=== PATIENT | female | born 1980 | race Two or more races ===

== ENCOUNTER 2020-05-09 09:46 | Emergency (ER) | payer OTHER, SELFPAY ==
[2020-05-09 10:30] VITALS: BP 132/84; PULSE 75; RESP 18; TEMP 36.3; O2SAT 99; BMI 31.1
--- NOTE | 2020-05-09 11:08 | CT_ITS ---
EXAMINATION: CT HEAD W/O IV CONTRAST CT CERVICAL SPINE W/O IV CONTRAST CLINICAL INFORMATION: Trauma. COMPARISON: 04/02/2016 TECHNIQUE: Head - Contiguous axial imaging of the head was performed from the skull base to the vertex without the administration of intravenous contrast, and axial images are reconstructed at 0.625 mm, 2.5 mm and 5 mm slice thickness. Cervical spine - A volumetric, helical CT acquisition of the cervical spine was obtained without contrast; in addition to the standard set of axial images, multiplanar reformatted images were provided in the coronal and sagittal imaging planes. This CT examination was performed using dose optimization techniques as appropriate, variously including the following: *Automated exposure control *Adjustment of mA and/or kV according to patient size (this includes techniques or standardized protocols for targeted exams where dose is matched to indication/reason for exam; i.e. extremities or head) *Use of iterative reconstruction technique DLP: 1051 mGy-cm (total) FINDINGS: HEAD: No evidence of intracranial hemorrhage, major vascular territory infarction, focal mass effect or midline shift. Ruiz to white matter differentiation is preserved. The ventricles have normal size and configuration. No extra-axial fluid collections. The calvarium is intact and the visualized paranasal sinuses, mastoid air cells and middle ear cavities are clear. The temporomandibular joints are unremarkable. The visualized orbits and globes are intact. CERVICAL SPINE: No acute abnormalities. The craniocervical junction is normal. The occipital condyles, dens and atlantodental articulation are intact. The vertebral body heights and alignment are maintained. No fractures in the anterior or posterior elements. No prevertebral soft tissue swelling. The disc spaces are preserved. The facet joints and uncovertebral joints are unremarkable. No evidence of stenosis of the central spinal canal or neural foramina. No spinal hematoma or focal fluid collection in the visualized neck. The examined lung apices are clear. Thyroid gland is normal. IMPRESSION: * No acute intracranial pathology. * No fracture or malalignment in the cervical spine.
--- NOTE | 2020-05-09 11:08 | XR_ITS ---
EXAMINATION: XR CHEST CLINICAL INFORMATION: Trauma COMPARISON: 11/29/2019 TECHNIQUE: 2 views of the chest were obtained. FINDINGS: Lungs are well-inflated and clear. Trachea is midline in position. No interstitial disease, consolidation or mass. No pleural effusion or pneumothorax. Cardiac silhouette and pulmonary vessels are normal in size. The mediastinum and filipe have normal contour. The visualized bones, and upper abdomen, are unremarkable. IMPRESSION: No acute cardiopulmonary abnormality.
--- NOTE | 2020-05-09 11:09 | XR_ITS ---
EXAMINATION: XR PELVIS CLINICAL INFORMATION: Trauma COMPARISON: None TECHNIQUE: CT pelvis, 07/24/2019 FINDINGS: The osseous pelvic ring is intact and bones have normal alignment. The joint spaces well-preserved at the hips, pubic symphysis and sacroiliac joints. No fracture. No focal soft tissue swelling. A few phleboliths are noted within the pelvis. IMPRESSION: Normal pelvis.
[2020-05-09 11:10] VITALS: BP 140/69; PULSE 66; RESP 20; TEMP 37; O2SAT 99
--- NOTE | 2020-05-09 11:10 | XR_ITS ---
EXAMINATION: XR LUMBOSACRAL SPINE XR HAND, LEFT CLINICAL INFORMATION: Trauma. COMPARISON: None TECHNIQUE: 2 views, 3 images of the lumbosacral spine 3 views of the left hand. FINDINGS: LUMBOSACRAL SPINE: The heights of the lumbar vertebrae are well-maintained. Intervertebral disc heights are well-maintained. Mild rotatory scoliosis is present at the upper lumbar spine. The intervertebral disc heights are well-maintained. The posterior appendages are intact. The paraspinal soft tissues are unremarkable. LEFT HAND: The bony alignment is intact. The cortices are intact. Articular margins, joint space appear unremarkable. The soft tissues are unremarkable. IMPRESSION: 1. No radiographic evidence of any acute compression fracture at the lumbosacral spine. 2. No radiographic evidence of any displaced fracture and/or subluxation or dislocation at the left hand.
--- NOTE | 2020-05-09 11:12 | ED_ITS ---
HPI - Back Pain/Injury General Chief Complaint: Back Pain/Injury Stated Complaint: fell Time Seen by Provider: 05/09/20 10:53 Source: patient Mode of arrival: ambulatory Limitations: no limitations History of Present Illness HPI Narrative: this is a 39 years old female who presented to the ED with a chief complain of a fall. She states that she fell yesterday down the stairs. She is complaining of a headache, neck pain chest wall pain and lower back pain. She has a history of fibromyalgia MD elicited complaint: back pain and fall Pertinent past history: recent trauma Onset (ago): day(s) (1) Timing: constant Severity: moderate Pain scale (0-10): 5 Quality: dull Location: lumbar spine Radiation: none Exacerbating factors: none Related Data Previous Rx's Medication Instructions Recorded oxycodone 5 mg PO Q8H PRN #12 cap 05/09/20 Allergies Allergy/AdvReac Type Severity Reaction Status Date / Time tomato [TOMATO] Allergy Mild HIVES Unverified 04/15/20 17:13 DIFFICULTY BREATHING hydrocodone [HYDROCODONE] Allergy Unknown RASH, Unverified 04/15/20 17:13 AIRWAY CLOSES ibuprofen [From MOTRIN] Allergy Unknown STOMACH Unverified 04/15/20 17:13 UPSET, vomiting Motrin Allergy Unknown stomach Unverified 12/25/19 00:00 upset tramadol [TRAMADOL] Allergy Unknown HIVES, Unverified 04/15/20 17:13 rash, vomiting trazodone [TRAZODONE] Allergy Unknown UNKNOWN, Unverified 04/15/20 17:13 stomach upset black pepper [BLACK PEPPER] AdvReac Severe DIFFICULTY Unverified 04/15/20 17:13 BREATHING, hives black pepper Allergy Unknown stomach Uncoded 12/25/19 00:00 upset hydrocodone Allergy Unknown rash Uncoded 12/25/19 00:00 Hydrocodone-Acetaminophen Allergy Unknown Uncoded 10/20/19 00:00 tomatoes Allergy Unknown stomach Uncoded 12/25/19 00:00 upset Review of Systems Review of Systems: Yes all other systems are reviewed and are negative PMFSH Past Medical History Attestation statement: The following information was validated with the patient. Medical History Anxiety Diabetes Surgical History H/O: hysterectomy Social History Social History Smoking Status: Former smoker Use of substances other than those prescribed or required for medical reasons: No Advance Directives: No Advance Directives Information Provided: No Physical Exam Vital Signs: Vital Signs: Vital Signs Temp Pulse Resp BP Pulse Ox 05/09/20 12:51 74 18 127/74 99 05/09/20 11:10 98.6 F 66 20 140/69 H 99 05/09/20 10:30 97.3 F 75 18 132/84 99 Body Mass Index 31.1 Const: General: cooperative, healthy appearing and comfortable Orientatio n/consciousness: oriented to person, oriented to place and oriented to time HENMT: Head: Yes normal to inspection Ears: external ears normal General nose exam: Normal external nose present Face and sinus: Yes normal facial exam Mouth: Normal oral and palatal mucosa present, lip normal and tongue normal Teeth and gingiva: dentition normal Throat: Yes posterior oropharynx normal Eyes: General: appearance normal, both eyes and all related structures Neck: Neck: Yes normal visual inspection, Yes no lymphadenopathy and Yes no meningeal signs Chest: Chest palpation & inspection: normal inspection of the chest Resp: Effort & Inspection: normal respiratory effort and able to speak in complete sentences Cardio: Jugular venous distension: no JVD Rate: regular rate GI: Inspection: Yes normal to inspection Percussion: Yes normal to percussion Auscultation: normal bowel sounds Skin: General skin exam: no rashes or lesions noted Neuro: General: oriented to person, oriented to place, oriented to time and no meningeal signs Extrem: Other: tenderness in the left tender dorsal aspect, tenderness in the LS spine and cervical spine. Course Reevaluation(s) Reevaluation #1: she is feeling better, imaging test negative head CT, C-spine CT, chest x-ray, LS spine, pelvis x-ray and left hand x-ray all negative. At this point we will discharge patient home with a follow-up with the PCP Time: 13:21 MDM - Back Pain/Injury Imaging Data CT scan - head: Attestation: I personally reviewed and interpreted this imaging study as follows: My impression: normal Radiologist's impression: normal ct spine cervical spine: Attestation: I personally reviewed and interpreted this imaging study as follows: My impression: normal Radiologist's impression: normal Discharge Plan Discharge Clinical Impression: Back muscle spasm Fall Qualifiers: Encounter type: initial encounter Qualified Code(s): W19.XXXA - Unspecified fall, initial encounter Neck contusion Qualifiers: Encounter type: initial encounter Qualified Code(s): S10.93XA - Contusion of unspecified part of neck, initial encounter Patient Disposition: Home, Self-Care Instructions: Contusion in Adults (ED), Fall Prevention (ED) Additional Instructions: please follow-up with her primary care physician, call in a.m. return if he worse Prescriptions: New oxycodone 5 mg capsule 5 mg PO Q8H PRN (Reason: pain) Qty: 12 RF: 0 Referrals: Deirdre Cantrell MD [Primary Care Provider] - 2 days Interventions: ED Discharge Assessment Last Done: 05/09/20 13:40 Discharge Date/Time: 05/09/20 13:41
[2020-05-09] MEDS: oxyCODONE HCl Immed Release 5 MG TABLET 10 MG PO (11:25)
--- NOTE | 2020-05-09 12:00 | PC.NURSE ---
pt resting in the stretcher on her left side, reports that pain slightly improved, at 7/10. nost of the pain is in the lower left back area and hip, noticeable bruising to the out left hip
[2020-05-09 12:51] VITALS: BP 127/74; PULSE 74; RESP 18; O2SAT 99
== END 2020-05-09 13:41 | disposition home or self-care (01) ==
PROVIDERS: Emergency Provider Emergency Medicine; PCP Internal Medicine
DX: S10.93XA Contusion of unspecified part of neck, initial encounter (principal); W10.8XXA Fall (on) (from) other stairs and steps, initial encounter; M62.830 Muscle spasm of back; E11.9 Type 2 diabetes mellitus without complications; Y93.9 Activity, unspecified; Y92.9 Unspecified place or not applicable; Y99.9 Unspecified external cause status
CPT/HCPCS: 70450; 71046; 72100; 72125; 72170; 73130; 99284

== ENCOUNTER 2020-05-27 10:24 | Outpatient (REF) | payer OTHER, SELFPAY ==
--- NOTE | 2020-05-27 10:30 | MR_ITS ---
EXAMINATION: MRI BRAIN WITHOUT CONTRAST CLINICAL INFORMATION: Seizure. COMPARISON: CT scan of the head 05/09/2020. TECHNIQUE: Multiplanar MR imaging of the brain was performed without contrast. FINDINGS: Dedicated coronal oblique imaging through the temporal lobes reveals symmetric size, signal intensity and morphological appearance of the hippocampal formations with no evidence of mesial temporal sclerosis. There is a small ill-defined focus of T2 FLAIR signal hyperintensity involving the medial aspect of the right parietal lobe near the vertex best illustrated on coronal image 20 of 21 series 9. No acute territorial infarct. No pathological magnetic susceptibility artifact. Intracranial vascular flow voids are maintained. There is no intracranial mass effect or midline shift. No abnormal extra-axial collection. Lateral and third ventricles are normal. No hydrocephalus. Midline structures including the cervicomedullary junction are normal. No acute bone marrow signal changes. There is no mastoid or middle ear effusion. Mild mucosal thickening within ethmoid air cells. Globes and orbits are symmetric. MR/MR head/brain wo con IMPRESSION: There is abnormal signal intensity involving the medial aspect of the right frontal lobe near the vertex. This finding could represent a manifestation of cortical dysplasia or perhaps an old vascular insult. The possibility of a low-grade neoplasm cannot be definitively excluded on basis is examination but is felt to be unlikely given the lack of expansile disease. No medial temporal sclerosis to suggest dual pathology.
== END 2020-05-27 10:25 | disposition home or self-care (01) ==
LOC: HO.MRI 10:24
PROVIDERS: PCP Internal Medicine; Visit Provider Psychiatry & Neurology Neurology
DX: R56.9 Unspecified convulsions (principal)
CPT/HCPCS: 70551

== ENCOUNTER 2020-05-27 13:22 | Outpatient (REF) | payer OTHER, SELFPAY ==
--- NOTE | 2020-05-27 13:39 | EEG_ITS ---
The waking background activity consists of a well-defined symmetrical posterior alpha of 9 hertz, intermixed anteriorly with low-voltage fast frequencies. Drowsiness produces attenuation of the background activity and symmetrical theta. Stages I through IV of sleep are noted with no abnormalities. Arousal is unremarkable. Artifacts are seen over the right hemisphere because of the malfunctioning electrode in the right temporal region. Multiple symptoms are reported in the diary, but there were no concomitant EEG changes. IMPRESSION: This 24-hour ambulatory EEG is within normal limits. The patient's symptoms did not correlate with any EEG abnormality. MD NATALY Palacios/WINIFRED / [id number]
== END 2020-05-27 13:23 | disposition home or self-care (01) ==
LOC: HO.NEURO 13:22
PROVIDERS: PCP Internal Medicine; Visit Provider Psychiatry & Neurology Neurology
DX: R56.9 Unspecified convulsions (principal)
CPT/HCPCS: 95708

== ENCOUNTER → 2020-06-03 13:25 | Outpatient (REF) | payer OTHER, SELFPAY | LOC: HO.CARD 13:25 | PROVIDERS: PCP Internal Medicine; Visit Provider Psychiatry & Neurology Neurology | DX: Z13.89 Encounter for screening for other disorder (principal) ==

== ENCOUNTER → 2020-06-29 12:50 | Outpatient (REF) | payer OTHER, SELFPAY ==
--- NOTE | 2020-06-29 13:00 | ECG_ITS ---
Hook-up date: 2020-06-29 13:28:00 Duration: 47:59:00 Test Indications: SYNCOPE Medications: [id number] QRS complexes 33 Ventricular ectopics which represent <1 % of total QRS comp. 3 Supraventricular ectopics which represent <1 % of total QRS comp. * Paced QRS complexs which represent % of total QRS comp. VENTRICULAR ECTOPY 33 Isolated 0 Bigeminal Cycles 0 Couplets 0 Runs 0 Beats in Runs * Beats LONGEST at * BPM at :: -- * Beats FASTEST at * BPM at :: -- SUPRAVENTRICULAR ECTOPY 3 Isolated 0 Couplets 0 Runs 0 Beats in Runs * Beats LONGEST at * BPM at :: -- * Beats FASTEST at * BPM at :: -- HEART RATES 64 MIN at 17:02:25 2020-06-29 102 AVG 177 MAX at 19:47:37 2020-06-29 LONGEST RR 0.9840 secs at 10:12:25 2020-06-30 S-T LEVELS Channel 1 - 128 mm at 13:28:00 2020-06-29 - 128 mm at 13:28:00 2020-06-29 Channel 2 - 128 mm at 13:28:00 2020-06-29 - 128 mm at 13:28:00 2020-06-29 Channel 3 - 128 mm at 03:24:71 -- - 128 mm at 03:24:71 Basic rhythm Normal sinus rhythm No long pause or profound bradycardia Rare Premature atrial complexes Frequent Sinus tachycardia , 48 % of time HR > 100 bpm Patient did not report any symptoms in the diary Referred By: Gilson Heaton Overread By: DINA ESQUIVEL MD
== END ==
LOC: HO.CARD 12:50
PROVIDERS: Visit Provider Psychiatry & Neurology Neurology
DX: R55 Syncope and collapse (principal)
CPT/HCPCS: 93225; 93226

== ENCOUNTER 2020-09-06 10:27 | Emergency (ER) | payer OTHER, SELFPAY ==
[2020-09-06 12:06] VITALS: BP 131/74; PULSE 84; RESP 18; TEMP 36.8; O2SAT 97; BMI 30.2
[2020-09-06 12:39] LABS: MANUAL DIFF FLAG NO
[2020-09-06 12:43] LABS: Basophils Percent Auto 0.6 % (0-2); Eosinophils Absolute Auto 0.1 X10*3/uL (0.0-0.4); Eosinophils Percent Auto 1.4 % (0-4); Hematocrit 41.5 % (37-47); Hemoglobin 13.6 g/dl (12.0-16.0); Imm Gran Abs Auto 0.04 X10*3/uL (0.00-0.03); Imm Gran Pct Auto 0.6 % (0.0-0.4); Lymphocytes Absolute Auto 1.5 X10*3/uL (1.2-4.9); Mean Corpuscular HGB Conc 32.8 g/dl (31.0-35.0); Mean Corpuscular Hemoglobin 29.3 pg (27.0-33.0); Mean Corpuscular Volume 89.4 fL (80-98); Mean Platelet Volume 10.5 fL (9.4-12.3); Monocytes Absolute Auto 0.7 X10*3/uL (0.1-1.2); Monocytes Percent Auto 10.5 % (2-11); Neutrophils Percent Auto 63.9 % (45-73); Platelet Count 351 X10*3/uL (160-400); Red Blood Count 4.64 X10*6/uL (4.20-5.50); Red Cell Distribution Width 12.7 % (11.0-16.0); White Blood Count 6.3 X10*3/uL (4.8-10.8)
[2020-09-06 13:16] LABS: Glucose Urine UA NEG (NEG); Leukocyte Esterase Urine NEG (NEG); Nitrite Urine NEG (NEG); Specific Gravity - Urine >= 1.030 (1.005-1.025); Urine Blood TRACE (NEG); Urine Ketones NEG (NEG); Urine Protein 1+ MG/DL (NEG-TRACE)
[2020-09-06 13:21] LABS: UPreg QC Valid YES; Urine Pregnancy NEGATIVE (NEGATIVE)
[2020-09-06 13:23] LABS: Appearance Urine CLEAR; Color Urine YELLOW
[2020-09-06 13:25] LABS: Alanine Aminotransferase 11 U/L (0-31); Albumin Level 4.5 g/dL (3.5-5.0); Alkaline Phosphatase 60 U/L (39-117); Anion Gap 12 (12-20); Aspartate Amino Transferase 11 U/L (5-31); Bilirubin Total 0.3 mg/dL (0.0-1.0); Blood Urea Nitrogen 12 mg/dL (9-16); Calcium 9.4 mg/dL (8.4-10.2); Carbon Dioxide 27 mmol/L (22-29); Chloride 105 mmol/L (96-108); Creatinine Clr Calc Pharmacy 105.1; Estimated Glomerular Filt Rate > 60; Glucose Random 97 mg/dL (60-115); Lipase 11 U/L (8-78); Potassium 4.2 mmol/L (3.3-5.1); Sodium 140 mmol/L (135-145); Total Protein 7.3 g/dL (6.5-8.0)
[2020-09-06 13:30] LABS: Bacteria Urine TRACE /LPF; Mucus Urine TRACE /LPF; RBC Urine 0-2 /HPF (0); Squamous Epithelial Cell Urine 2+ /LPF; WBC Urine 0-2 /HPF (0-4)
== END 2020-09-06 19:27 | disposition left against medical advice (07) ==
PROVIDERS: Emergency Provider Emergency Medicine; PCP Internal Medicine
DX: R10.13 Epigastric pain (principal); S49.92XA Unspecified injury of left shoulder and upper arm, initial encounter; W18.39XA Other fall on same level, initial encounter; I10 Essential (primary) hypertension; E11.9 Type 2 diabetes mellitus without complications; K21.9 Gastro-esophageal reflux disease without esophagitis; F10.10 Alcohol abuse, uncomplicated; Y93.9 Activity, unspecified; Y92.9 Unspecified place or not applicable; Y99.9 Unspecified external cause status
CPT/HCPCS: 36415; 80053; 81001; 81003; 81025; 83690; 85025; 99282; 99283

== ENCOUNTER 2020-09-27 11:15 | Emergency (ER) | payer OTHER, SELFPAY ==
--- NOTE | ~2020-09-27 | CT_ITS ---
EXAMINATION: CT ABDOMEN AND PELVIS WITH CONTRAST CLINICAL INFORMATION: Periumbilical abdominal pain COMPARISON: 07/24/2019 TECHNIQUE: Multidetector volumetric images were obtained from the superior aspect of the liver through the pubic symphysis following administration 85 mL of Omnipaque 350 intravenous contrast. Sagittal and coronal reformatted images were obtained on the technologist's workstation. Oral contrast: No This CT examination was performed using dose optimization techniques as appropriate, variously including the following: *Automated exposure control *Adjustment of mA and/or kV according to patient size (this includes techniques or standardized protocols for targeted exams where dose is matched to indication/reason for exam; i.e. extremities or head) *Use of iterative reconstruction technique DLP: 222 mGy-cm FINDINGS: LUNG BASES: The visualized lung bases are unremarkable. LIVER, GALLBLADDER, AND BILIARY TREE: Unchanged tiny low-density lesions in the liver, too small to definitively characterize but most likely simple cysts. No new or suspicious focal lesion seen. No biliary ductal dilatation. The portal and hepatic veins enhance normally. The gallbladder is unremarkable with no evidence of radiopaque gallstones, gallbladder wall thickening, or obvious pericholecystic inflammatory changes. PANCREAS: Normal. SPLEEN: Normal. ADRENAL GLANDS: Unremarkable. KIDNEYS AND URETERS: The kidneys are normal in size, shape, and attenuation. No hydronephrosis, hydroureter, or calculi seen. No perinephric stranding. BLADDER: Unremarkable. GASTROINTESTINAL TRACT: Stomach and small bowel are nondilated. Normal appendix. Scattered colonic diverticulosis but no evidence of colitis or diverticulitis. ABDOMINAL WALL: No acute CT findings. LYMPH NODES: Normal. VASCULAR: Unremarkable. PELVIC VISCERA: Normal CT appearance of the ovaries for age. Uterus not seen, likely surgically absent. OSSEOUS STRUCTURES: Multilevel degenerative changes of the thoracolumbar spine. There are broad-based disc bulges at L5-S1 and T11-T12. CT/CT abdomen pelvis w con IMPRESSION: No acute CT findings. Normal appendix. No etiology for abdominal pain identified.
[2020-09-27 12:16] VITALS: BP 146/92; PULSE 75; RESP 18; TEMP 36.8; O2SAT 98; BMI 29.8
--- NOTE | 2020-09-27 14:37 | ED_ITS ---
HPI - Abdominal Pain General Chief Complaint: Abdominal Pain Stated Complaint: ABD PAIN Time Seen by Provider: 09/27/20 14:36 Source: patient Mode of arrival: ambulatory Limitations: language barrier (founder chairman and chief creative officer present for all interactions) History of Present Illness HPI narrative: This is a pleasant 39-year-old female primarily Mosotho-speaking, thus founder chairman and chief creative officer present for all interactions, with below noted past medical history including history of anxiety and depression, carpal tunnel syndrome, gastroesophageal reflux disease, hypercholesteremia, hypertension, prior history of renal calculi, diabetes, vitamin-D deficiency as well as surgical history of hysterectomy tubal ligation reports for the past 1 week she has episodes of intermittent nausea and vomiting with associated diarrhea there is some epigastric pain especially when she eats certain things and when she vo mits. She states her vomit is greenish and it will cause burning likes sensation in the chest. MD elicited complaint: abdominal pain Pertinent past history: gastritis Onset (ago): day(s) Pain Consistency: constant Location: epigastric and periumbilical Severity: moderate Quality: aching Radiation: epigastric Migration to: periumbilical Exacerbating factors: vomiting Relieving factors: vomiting Associated symptoms: nausea, vomiting and diarrhea Related Data Home Medications Medication Instructions Recorded Confirmed ergocalciferol (vitamin D2) 1,250 1,250 mcg PO QWEEK 08/15/20 08/27/20 mcg (50,000 unit) capsule atorvastatin 20 mg tablet 20 mg PO DAILY 08/27/20 08/27/20 clonazepam 2 mg tablet 2 mg PO BID 08/27/20 08/27/20 dicyclomine 20 mg tablet 20 mg PO BID 08/27/20 08/27/20 lactulose 10 gram/15 mL oral 10 g PO DAILY 08/27/20 08/27/20 solution linaclotide 290 mcg capsule 290 mcg PO DAILY 08/27/20 08/27/20 lisinopril 5 mg tablet 5 mg PO DAILY 08/27/20 08/27/20 omeprazole 20 mg capsule,delayed 20 mg PO DAILY 08/27/20 08/27/20 release ondansetron HCl 4 mg tablet 4 mg PO Q6H 08/27/20 08/27/20 quetiapine 300 mg tablet,extended 300 mg PO BEDTIME 08/27/20 08/27/20 release 24 hr sumatriptan succinate 50 mg tablet 50 mg PO Q2-4H PRN 08/27/20 08/27/20 zolpidem 10 mg tablet 10 mg PO BEDTIME PRN 08/27/20 08/27/20 Previous Rx's Medication Instructions Recorded sucralfate 1 gram tablet 1 g PO BID #60 tab 08/27/20 meloxicam 15 mg tablet 15 mg PO DAILY #30 tab 09/17/20 acetaminophen 325 mg tablet 650 mg PO Q6H PRN #30 tab 09/24/20 ondansetron HCl [Zofran] 4 mg PO Q8H PRN #10 tab 09/27/20 Allergies Allergy/AdvReac Type Severity Reaction Status Date / Time tomato [TOMATO] Allergy Mild HIVES Verified 09/27/20 12:16 DIFFICULTY BREATHING hydrocodone [HYDROCODONE] Allergy Unknown RASH, Verified 09/27/20 12:16 AIRWAY CLOSES ibuprofen [From MOTRIN] Allergy Unknown STOMACH Verified 09/27/20 12:16 UPSET, vomiting Motrin Allergy Unknown stomach Verified 09/27/20 12:16 upset tramadol [TRAMADOL] Allergy Unknown HIVES, Verified 09/27/20 12:16 rash, vomiting trazodone [TRAZODONE] Allergy Unknown UNKNOWN, Verified 09/27/20 12:16 stomach upset black pepper [BLACK PEPPER] AdvReac Severe DIFFICULTY Verified 09/27/20 12:16 BREATHING, hives Review of Systems Review of Systems Constitutional: No Weight loss, No Fever, No Chills, No Night Sweats, No Fatigue, No Malaise ENT/Mouth: No Hearing loss, No Ear Pain, No Nasal Congestion, No Sinus Pain, No Hoarseness, No sore throat, No Rhinorrhea, No Swallowing Difficulty Eyes: No Eye Pain, No Swelling, No Redness, No Foreign Body, No Discharge, No Vision Changes Cardiovascular: No Chest Pain, No SOB, No Dyspnea on Exertion, No Orthopnea, No Edema, No Palpitations Respiratory: No Cough, No Sputum, No Wheezing, No Smoke Exposure, No Dyspnea Gastrointestinal:As noted per HPI, No Hematochezia, No Melena Genitourinary: no irregular bleeding, No Dysuria, No Urinary Frequency, No Hematuria, No Urinary Incontinence, No Urgency, No Flank Pain, No Urinary Flow Changes, No Hesitancy Musculoskeletal: No joint pain, No Myalgias, No Joint Swelling Skin: No Skin Lesions, No rash Neuro: No Weakness, No Numbness, No Paresthesias, No Loss of Consciousness, No Dizziness, No Headache Psych: No Social Issues Heme/Lymph: No Bruising, No Bleeding,No Lymphadenopathy Endocrine: No Polyuria, No Polydipsia, No Temperature Intolerance Yes all other systems are reviewed and are negative Physical Exam Vital Signs: Vital Signs: Last Vital Signs Temp 71 F L 09/27/20 16:27 Pulse 71 09/27/20 16:27 Resp 16 09/27/20 16:27 BP 132/85 09/27/20 16:27 Pulse Ox 99 09/27/20 16:27 Body Mass Index 29.8 Reviewed Cardio: Rhythm: regular rhythm Heart sounds: S1 normal heart sound present and S2 normal heart sound present GI: Palpation (GI): Soft to palpation and Tenderness to palpation present (GI) in the epigastrum Course Course Course Narrative: States minimal improvement with GI cocktail still having some burning like discomfort. Given her overall reassuring labs and examination plan to send home on PPI and Zofran however she states she feels like she has an infection in her stomach and would like imaging. Advised her my suspicions are very low given the findings and the risk of a radiation associated complication later on in life for greater than my anticipated findings however states she would feel more comfortable. Reevaluation(s) Reevaluation #1: Has remained comfortable in no acute distress no nausea or vomiting here. CT of the abdomen pelvis with IV contrast unrevealing. She will follow-up with her business management specialist at [facility] [place]. MDM - Abdominal Pain MDM Narrative Medical decision making narrative: Will check labs and treat with IV fluids, antiemetics and GI cocktail. Differential Diagnosis Differential diagnosis: Likely abdominal pain, diverticulitis, gastroenteritis and gastritis; Unlikely aortic dissection, acute appendicitis, bowel perforation, calculus of kidney, constipation, endometriosis, mesenteric ischemia, ovarian cyst, pancreatitis, peptic ulcer disease, renal colic and small bowel obstruction Medical Records Attestation: I reviewed the patient's medical records. Lab Data Attestation: I reviewed the patient's lab results. Result diagrams: 09/27/20 15:13 09/27/20 15:13 Labs: Lab Results 09/27/20 09/27/20 09/27/20 Range/Units 15:13 15:13 15:43 WBC 8.0 (4.8-10.8) X10*3/uL RBC 4.67 (4.20-5.50) X10*6/uL Hgb 13.5 (12.0-16.0) g/dl Hct 41.5 (37-47) % MCV 88.9 (80-98) fL MCH 28.9 (27.0-33.0) pg MCHC 32.5 (31.0-35.0) g/dl RDW 12.6 (11.0-16.0) % Plt Count 317 (160-400) X10*3/uL MPV 10.3 (9.4-12.3) fL Immature Gran % (Auto) 0.5 H (0.0-0.4) % Neut % (Auto) 68.1 (45-73) % Lymph % (Auto) 22.2 (20-40) % Kleberg % (Auto) 7.8 (2-11) % Eos % (Auto) 0.9 (0-4) % Baso % (Auto) 0.5 (0-2) % Lymph # (Auto) 1.8 (1.2-4.9) X10*3/uL Kleberg # (Auto) 0.6 (0.1-1.2) X10*3/uL Eos # (Auto) 0.1 (0.0-0.4) X10*3/uL Baso # (Auto) 0.0 (0.0-0.2) X10*3/uL Abs Immat Gran (auto) 0.04 H (0.00-0.03) X10*3/uL Absolute Neuts (auto) 5.4 (2.0-8.3) X10*3/uL Absolute Nucleated RBC 0.000 (0.0-0.012) X10*3/uL Nucleated RBC % (auto) 0.0 (0.0-0.2) /100WBC Sodium 139 (135-145) mmol/L Potassium 3.6 (3.3-5.1) mmol/L Chloride 105 (96-108) mmol/L Carbon Dioxide 26 (22-29) mmol/L Anion Gap 12 (12-20) BUN 11 (9-16) mg/dL Creatinine 0.77 (0.5-1.4) mg/dL Estim Creat Clear Calc 92.3 Estimated GFR > 60 Random Glucose 100 (60-115) mg/dL Calcium 8.7 D (8.4-10.2) mg/dL Total Bilirubin 0.7 (0.0-1.0) mg/dL AST 12 (5-31) U/L ALT 11 (0-31) U/L Alkaline Phosphatase 62 (39-117) U/L Total Protein 6.8 (6.5-8.0) g/dL Albumin 4.3 (3.5-5.0) g/dL Urine Color YELLOW Urine Appearance CLEAR Urine pH 6.0 (5.0-8.0) Ur Specific Linn 1.025 (1.005-1.025) Urine Protein 1+ H (NEG-TRACE) MG/DL Urine Glucose (UA) NEG (NEG) MG/DL Urine Ketones NEG (NEG) MG/DL Urine Blood NEG (NEG) Urine Nitrite NEG (NEG) Ur Leukocyte Esterase NEG (NEG) Urine RBC 0 (0) /HPF Urine WBC 0 (0-4) /HPF Ur Squamous Epith Cells 3+ /LPF Urine Bacteria 1+ /LPF Urine Test (NEGATIVE) 09/27/20 Range/Units 15:43 WBC (4.8-10.8) X10*3/uL RBC (4.20-5.50) X10*6/uL Hgb (12.0-16.0) g/dl Hct (37-47) % MCV (80-98) fL MCH (27.0-33.0) pg MCHC (31.0-35.0) g/dl RDW (11.0-16.0) % Plt Count (160-400) X10*3/uL MPV (9.4-12.3) fL Immature Gran % (Auto) (0.0-0.4) % Neut % (Auto) (45-73) % Lymph % (Auto) (20-40) % Kleberg % (Auto) (2-11) % Eos % (Auto) (0-4) % Baso % (Auto) (0-2) % Lymph # (Auto) (1.2-4.9) X10*3/uL Kleberg # (Auto) (0.1-1.2) X10*3/uL Eos # (Auto) (0.0-0.4) X10*3/uL Baso # (Auto) (0.0-0.2) X10*3/uL Abs Immat Gran (auto) (0.00-0.03) X10*3/uL Absolute Neuts (auto) (2.0-8.3) X10*3/uL Absolute Nucleated RBC (0.0-0.012) X10*3/uL Nucleated RBC % (auto) (0.0-0.2) /100WBC Sodium (135-145) mmol/L Potassium (3.3-5.1) mmol/L Chloride (96-108) mmol/L Carbon Dioxide (22-29) mmol/L Anion Gap (12-20) BUN (9-16) mg/dL Creatinine (0.5-1.4) mg/dL Estim Creat Clear Calc Estimated GFR Random Glucose (60-115) mg/dL Calcium (8.4-10.2) mg/dL Total Bilirubin (0.0-1.0) mg/dL AST (5-31) U/L ALT (0-31) U/L Alkaline Phosphatase (39-117) U/L Total Protein (6.5-8.0) g/dL Albumin (3.5-5.0) g/dL Urine Color Urine Appearance Urine pH (5.0-8.0) Ur Specific Linn (1.005-1.025) Urine Protein (NEG-TRACE) MG/DL Urine Glucose (UA) (NEG) MG/DL Urine Ketones (NEG) MG/DL Urine Blood (NEG) Urine Nitrite (NEG) Ur Leukocyte Esterase (NEG) Urine RBC (0) /HPF Urine WBC (0-4) /HPF Ur Squamous Epith Cells /LPF Urine Bacteria /LPF Urine Test NEGATIVE (NEGATIVE) Discharge Plan Discharge Clinical Impression: Nausea & vomiting Patient Disposition: Home, Self-Care Instructions: Acute Nausea and Vomiting (ED) Additional Instructions: Your blood work was overall stable The CT scan of your abdomen pelvis did not show any evidence of acute infection or cause of your pain You likely have a mild viral infection Drink plenty fluids Take anti acid medication prescribed Take nausea medication prescribed Follow-up with your business management specialist as planned Return if any concerns worsening symptoms Thank you Prescriptions: New ondansetron HCl [Zofran] 4 mg tablet 4 mg PO Q8H PRN (Reason: nausea and vomiting) Qty: 10 RF: 0 No Action ergocalciferol (vitamin D2) 1,250 mcg (50,000 unit) capsule 1,250 mcg PO QWEEK RF: 0 meloxicam 15 mg tablet 15 mg PO DAILY Qty: 30 RF: 5 acetaminophen 325 mg tablet 650 mg PO Q6H PRN (Reason: pain) Qty: 30 RF: 0 zolpidem 10 mg tablet 10 mg PO BEDTIME PRNRF: 0 clonazepam 2 mg tablet 2 mg PO BID RF: 0 dicyclomine 20 mg tablet 20 mg PO BID RF: 0 lisinopril 5 mg tablet 5 mg PO DAILY RF: 0 atorvastatin 20 mg tablet 20 mg PO DAILY RF: 0 ondansetron HCl [Zofran] 4 mg tablet 4 mg PO Q6H RF: 0 Linzess 290 mcg capsule 290 mcg PO DAILY RF: 0 sumatriptan succinate [Imitrex] 50 mg tablet 50 mg PO Q2-4H PRNRF: 0 quetiapine [Seroquel XR] 300 mg tablet extended release 24 hr 300 mg PO BEDTIME RF: 0 lactulose 10 gram/15 mL solution 10 g PO DAILY RF: 0 omeprazole 20 mg capsule,delayed release(DR/EC) 20 mg PO DAILY RF: 0 sucralfate [Carafate] 1 gram tablet 1 g PO BID Qty: 60 RF: 2 Referrals: Po,Deirdre Raymundo MD [Primary Care Provider] - 1 week [facility] Past Medical History Medical History (Updated 09/27/20 @ 19:15 by Quintin Gonzales NP) Alcohol abuse Anxiety and depression Carpal tunnel syndrome Diverticulosis GERD (gastroesophageal reflux disease) Hypercholesterolemia Hypertension Insomnia Renal calculi Type 2 diabetes mellitus with hyperglycemia Vitamin D deficiency Surgical History H/O: hysterectomy History of tubal ligation Family History Family History (Updated 08/17/20 @ 10:03 by Eryn Jamison Carrie) Father Medical history unknown Mother Medical history unknown Paternal Aunt Uterine cancer Diabetes Hypertension Paternal Uncle Liver cancer Maternal Aunt Stroke Family/Other Chronic mental illness Social History Social History Alcohol intake: never Smoking Status: Never smoker Use of substances other than those prescribed or required for medical reasons: No Advance Directives: No Advance Directives Information Provided: No
[2020-09-27] MEDS: 0.9 % Sodium Chloride 1,000 ML 999 ML IV (15:15)
[2020-09-27] MEDS: ondansetron HCL 4 MG/2 ML VIAL IVPUSH (15:19)
[2020-09-27] MEDS: Magnesium Hydrox/Alum Hydrox 30 ML ORAL.SUSP PO (15:19)
[2020-09-27] MEDS: Lidocaine HCl Viscous 2 % 15 ML SOLUTION 10 ML MUCOUS MEM (15:19)
[2020-09-27 15:20] LABS: MANUAL DIFF FLAG NO
[2020-09-27 15:23] LABS: Basophils Percent Auto 0.5 % (0-2); Eosinophils Absolute Auto 0.1 X10*3/uL (0.0-0.4); Eosinophils Percent Auto 0.9 % (0-4); Hematocrit 41.5 % (37-47); Hemoglobin 13.5 g/dl (12.0-16.0); Imm Gran Abs Auto 0.04 X10*3/uL (0.00-0.03); Imm Gran Pct Auto 0.5 % (0.0-0.4); Lymphocytes Absolute Auto 1.8 X10*3/uL (1.2-4.9); Lymphocytes Percent Auto 22.2 % (20-40); Mean Corpuscular HGB Conc 32.5 g/dl (31.0-35.0); Mean Corpuscular Hemoglobin 28.9 pg (27.0-33.0); Mean Corpuscular Volume 88.9 fL (80-98); Mean Platelet Volume 10.3 fL (9.4-12.3); Monocytes Absolute Auto 0.6 X10*3/uL (0.1-1.2); Monocytes Percent Auto 7.8 % (2-11); Neutrophils Absolute Auto 5.4 X10*3/uL (2.0-8.3); Neutrophils Percent Auto 68.1 % (45-73); Platelet Count 317 X10*3/uL (160-400); Red Blood Count 4.67 X10*6/uL (4.20-5.50); Red Cell Distribution Width 12.6 % (11.0-16.0)
[2020-09-27 15:45] LABS: Alanine Aminotransferase 11 U/L (0-31); Albumin Level 4.3 g/dL (3.5-5.0); Alkaline Phosphatase 62 U/L (39-117); Anion Gap 12 (12-20); Aspartate Amino Transferase 12 U/L (5-31); Bilirubin Total 0.7 mg/dL (0.0-1.0); Blood Urea Nitrogen 11 mg/dL (9-16); Calcium 8.7 mg/dL (8.4-10.2); Carbon Dioxide 26 mmol/L (22-29); Chloride 105 mmol/L (96-108); Creatinine Clr Calc Pharmacy 92.3; Estimated Glomerular Filt Rate > 60; Glucose Random 100 mg/dL (60-115); Potassium 3.6 mmol/L (3.3-5.1); Sodium 139 mmol/L (135-145); Total Protein 6.8 g/dL (6.5-8.0)
[2020-09-27 15:50] VITALS: BP 142/92; PULSE 94; RESP 16; TEMP 36.5; O2SAT 96
[2020-09-27 16:01] LABS: Glucose Urine UA NEG (NEG); Leukocyte Esterase Urine NEG (NEG); Nitrite Urine NEG (NEG); Specific Gravity - Urine 1.025 (1.005-1.025); Urine Blood NEG (NEG); Urine Ketones NEG (NEG); Urine Protein 1+ MG/DL (NEG-TRACE)
[2020-09-27 16:10] LABS: Appearance Urine CLEAR; Color Urine YELLOW
[2020-09-27 16:13] LABS: UPreg QC Valid YES; Urine Pregnancy NEGATIVE (NEGATIVE)
[2020-09-27 16:21] LABS: Bacteria Urine 1+ /LPF; RBC Urine 0 /HPF (0); Squamous Epithelial Cell Urine 3+ /LPF; WBC Urine 0 /HPF (0-4)
[2020-09-27 16:27] VITALS: BP 132/85; PULSE 71; RESP 16; TEMP 21.6; O2SAT 99
[2020-09-27] MEDS: iohexoL 350 MG/ML 100 ML INFUS..BTL IV (17:58)
[2020-09-27 18:00] VITALS: BP 137/70; PULSE 82; RESP 16; TEMP 36.7; O2SAT 97
== END 2020-09-27 19:27 | disposition home or self-care (01) ==
PROVIDERS: Nurse Practitioner Primary Care; Emergency Provider Emergency Medicine; PCP Internal Medicine
DX: R11.2 Nausea with vomiting, unspecified (principal); R10.13 Epigastric pain; I10 Essential (primary) hypertension; E11.9 Type 2 diabetes mellitus without complications; Z87.442 Personal history of urinary calculi; Z90.710 Acquired absence of both cervix and uterus; Z98.51 Tubal ligation status
CPT/HCPCS: 36415; 74177; 80053; 81001; 81025; 85025; 96361; 96374; 99284; J2405; Q9967

== ENCOUNTER 2020-11-09 12:53 | Outpatient (REF) | payer OTHER, SELFPAY | END 2020-11-09 12:54 | disposition home or self-care (01) | LOC: HO.NEURO 12:53 | PROVIDERS: PCP Internal Medicine; Visit Provider Psychiatry & Neurology Neurology | DX: Z13.89 Encounter for screening for other disorder (principal) ==

== ENCOUNTER → 2020-11-11 15:37 | Outpatient (BNVA) | payer OTHER, SELFPAY | PROVIDERS: PCP Internal Medicine; Visit Provider Anesthesiology | DX: M47.816 Spondylosis without myelopathy or radiculopathy, lumbar region (principal); M51.36 Other intervertebral disc degeneration, lumbar region; Z79.899 Other long term (current) drug therapy | CPT/HCPCS: 99212 ==

== ENCOUNTER 2020-12-07 12:33 | Emergency (ER) | payer OTHER, SELFPAY ==
--- NOTE | ~2020-12-07 | CT_ITS ---
EXAMINATION: CT ABDOMEN AND PELVIS WITHOUT CONTRAST CLINICAL INFORMATION: Right-sided flank pain, hematuria and dysuria COMPARISON: Previous CT of the abdomen and pelvis 09/27/2020 TECHNIQUE: Multidetector volumetric imaging was performed from the superior aspect of the liver through the pubic symphysis. Sagittal and coronal reformatted images were obtained on the technologist's workstation. This CT examination was performed using dose optimization techniques as appropriate, variously including the following: *Automated exposure control *Adjustment of mA and/or kV according to patient size (this includes techniques or standardized protocols for targeted exams where dose is matched to indication/reason for exam; i.e. extremities or head) *Use of iterative reconstruction technique DLP: 667 mGy-cm FINDINGS: LUNG BASES: The visualized lung bases are unremarkable. LIVER, GALLBLADDER, AND BILIARY TREE: The liver is normal in size, shape, and attenuation. No focal hepatic lesion or biliary ductal dilatation is present. The gallbladder is unremarkable with no evidence of radiopaque gallstones, gallbladder wall thickening, or obvious pericholecystic inflammatory changes. PANCREAS: Unremarkable. SPLEEN: Unremarkable. ADRENAL GLANDS: Unremarkable. KIDNEYS AND URETERS: There is a small 1 mm nonobstructing stone in the lower pole of the right kidney. The kidneys are otherwise unremarkable. BLADDER: Unremarkable. GASTROINTESTINAL TRACT: The small and large bowel are unremarkable. The appendix is unremarkable. ABDOMINAL WALL: No significant hernia is appreciated. LYMPH NODES: Normal. VASCULAR: Unremarkable. PELVIC VISCERA: The uterus has been removed. Adnexa are unremarkable. OSSEOUS STRUCTURES: Mild degenerative changes of the lower thoracic and lumbar spine. CT/CT abdomen pelvis wo con IMPRESSION: Small nonobstructing right renal stone.
[2020-12-07 12:56] VITALS: BP 173/91; PULSE 82; RESP 18; TEMP 36.6; O2SAT 95; BMI 31.6
[2020-12-07 13:13] LABS: Glucose Urine UA NEG (NEG); Leukocyte Esterase Urine NEG (NEG); Nitrite Urine NEG (NEG); PH 6.5 (5.0-8.0); Specific Gravity - Urine 1.025 (1.005-1.025); Urine Blood TRACE (NEG); Urine Ketones NEG (NEG); Urine Protein 2+ MG/DL (NEG-TRACE)
[2020-12-07 13:16] LABS: Appearance Urine CLOUDY; Color Urine YELLOW
[2020-12-07 13:19] LABS: Bacteria Urine 2+ /LPF; Mucus Urine 2+ /LPF; RBC Urine 0-2 /HPF (0); Squamous Epithelial Cell Urine 2+ /LPF; WBC Urine 0-2 /HPF (0-4)
[2020-12-07 15:16] LABS: MANUAL DIFF FLAG NO
[2020-12-07 15:23] LABS: Basophils Percent Auto 0.4 % (0-2); Eosinophils Absolute Auto 0.1 X10*3/uL (0.0-0.4); Eosinophils Percent Auto 0.9 % (0-4); Hematocrit 42.9 % (37-47); Hemoglobin 14.1 g/dl (12.0-16.0); Imm Gran Abs Auto 0.03 X10*3/uL (0.00-0.03); Imm Gran Pct Auto 0.4 % (0.0-0.4); Lymphocytes Absolute Auto 1.4 X10*3/uL (1.2-4.9); Mean Corpuscular HGB Conc 32.9 g/dl (31.0-35.0); Mean Corpuscular Volume 88.3 fL (80-98); Mean Platelet Volume 10.2 fL (9.4-12.3); Monocytes Absolute Auto 0.5 X10*3/uL (0.1-1.2); Monocytes Percent Auto 6.3 % (2-11); Neutrophils Absolute Auto 5.6 X10*3/uL (2.0-8.3); Platelet Count 337 X10*3/uL (160-400); Red Blood Count 4.86 X10*6/uL (4.20-5.50); Red Cell Distribution Width 13.1 % (11.0-16.0); White Blood Count 7.6 X10*3/uL (4.8-10.8)
[2020-12-07 15:37] LABS: Anion Gap 16 (12-20); Blood Urea Nitrogen 12 mg/dL (9-16); Calcium 9.4 mg/dL (8.4-10.2); Carbon Dioxide 28 mmol/L (22-29); Chloride 102 mmol/L (96-108); Creatinine Clr Calc Pharmacy 106.7; Estimated Glomerular Filt Rate > 60; Glucose Random 100 mg/dL (60-115); Potassium 3.8 mmol/L (3.3-5.1); Sodium 142 mmol/L (135-145)
--- NOTE | 2020-12-07 15:40 | ED_ITS ---
HPI - Abdominal Pain General Chief Complaint: Abdominal Pain Stated Complaint: ABSCESS Time Seen by Provider: 12/07/20 15:24 Source: patient Mode of arrival: ambulatory Limitations: no limitations History of Present Illness HPI narrative: 40 y/o female with history of HTN, HLD, chronic low back pain, history of GERD, kidney stones who presents with multiple days of right sided flank pain that radiates into her RLQ. She also reports intermittent hematuria and dysuria for the last 2 days. She has nausea and vomiting yesterday. She noticed a painful, red abscess in her groin area as well. No drainage. No diarrhea. She reports subjective fever and chills yesterday. She states she has had a kidney stone in the past and the flank and belly pain feel similar. MD elicited complaint: flank pain Pertinent past history: kidney stones and past UTI Onset (ago): day(s) (5) Pain Consistency: constant Location: R flank Severity: moderate Quality: stabbing Radiation: RLQ Migration to: no migration Exacerbating factors: other (urinating) Relieving factors: nothing Context: history of similar episodes Associated symptoms: nausea, vomiting, chills, dysuria and hematuria Related Data Home Medications Medication Instructions Recorded Confirmed ergocalciferol (vitamin D2) 1,250 1,250 mcg PO QWEEK 08/15/20 09/29/20 mcg (50,000 unit) capsule clonazepam 2 mg tablet 2 mg PO BID 08/27/20 09/29/20 dicyclomine 20 mg tablet 20 mg PO BID 08/27/20 09/29/20 lactulose 10 gram/15 mL oral 10 g PO DAILY 08/27/20 09/29/20 solution linaclotide 290 mcg capsule 290 mcg PO DAILY 08/27/20 09/29/20 ondansetron HCl 4 mg tablet 4 mg PO Q6H 08/27/20 09/29/20 quetiapine 300 mg tablet,extended 300 mg PO BEDTIME 08/27/20 09/29/20 release 24 hr sumatriptan succinate 50 mg tablet 50 mg PO Q2-4H PRN 08/27/20 09/29/20 zolpidem 10 mg tablet 10 mg PO BEDTIME PRN 08/27/20 09/29/20 Previous Rx's Medication Instructions Recorded acetaminophen 325 mg tablet 650 mg PO Q6H PRN #30 tab 09/24/20 pantoprazole 40 mg tablet,delayed 40 mg PO DAILY #30 tab 09/29/20 release atorvastatin 20 mg tablet 20 mg PO DAILY #90 tab 11/22/20 lisinopril 5 mg tablet 5 mg PO DAILY #90 tab 11/22/20 sucralfate 1 gram tablet 1 g PO BID #60 tab 11/22/20 cephalexin [Keflex] 750 mg PO Q8H 5 Days #15 cap 12/07/20 ondansetron HCl [Zofran] 4 mg PO Q8H PRN #7 tab 12/07/20 Allergies Allergy/AdvReac Type Severity Reaction Status Date / Time tomato [TOMATO] Allergy Mild HIVES Verified 11/11/20 16:19 DIFFICULTY BREATHING hydrocodone [HYDROCODONE] Allergy Unknown RASH, Verified 11/11/20 16:19 AIRWAY CLOSES ibuprofen [From MOTRIN] Allergy Unknown STOMACH Verified 11/11/20 16:19 UPSET, vomiting Motrin Allergy Unknown stomach Verified 11/11/20 16:19 upset trazodone [TRAZODONE] Allergy Unknown UNKNOWN, Verified 11/11/20 16:19 stomach upset black pepper [BLACK PEPPER] AdvReac Severe DIFFICULTY Verified 11/11/20 16:19 BREATHING, hives Review of Systems Review of Systems Constitutional: + Fever (subjective), + Chills ENT/Mouth: No sore throat, No Rhinorrhea, No Swallowing Difficulty Eyes: No Eye Pain, No Swelling, No Redness Cardiovascular: No Chest Pain, No SOB, No Orthopnea, No Edema Respiratory: No Cough, No Sputum, No Wheezing, No dyspnea Gastrointestinal: No Nausea, No Vomiting, No Diarrhea, No abdominal Pain, No Hematochezia, No Melena Genitourinary: No Dysuria, No Urinary Frequency, No Hematuria Musculoskeletal: No joint pain, No Myalgias Skin: No Skin Lesions, No rash Neuro: No Weakness, No Numbness, No Dizziness, No Headache Psych: No Anxiety/Panic, No Depression Heme/Lymph: No Bruising, No Lymphadenopathy Endocrine: No Polyuria, No Polydipsia Physical Exam Vital Signs: Vital Signs: Last Vital Signs Temp 98 F 12/07/20 12:56 Pulse 82 12/07/20 12:56 Resp 18 12/07/20 12:56 BP 173/91 H 12/07/20 12:56 Pulse Ox 95 12/07/20 12:56 Body Mass Index 31.6 Appearance: Alert. Oriented X3. No acute distress. Eyes: Pupils equal, round and reactive to light. ENT: Pharynx normal. Neck: Normal inspection. Neck supple. CVS: Normal heart rate and rhythm. Pulses normal. Respiratory: No respiratory distress. Breath sounds normal. Abdomen: Soft with RLQ tenderness, +CVA tenderness. +BS x4. Right mons pubis with small inflamed, erythema and tenderness, central area of fluctuance Skin: Skin warm and dry. Normal skin color. Normal skin turgor. No rashes. Extremities: No lower extremity edema. Neuro: Oriented X 3. No motor deficit. No sensory deficit. Procedures Abscess I/D Site: other (monus pubis on the right side) Side (if applicable): right Local Anesthetic: lidocaine 2% Amount of anesthesia used (mL): 1 Technique: incised with blade Sent for culture/gram staining?: No Irrigation: Yes Packing used?: none Course Course Course Narrative: 40 y/o female presenting with right sided flank pain radiating to her right abdomen along with dysuria and hematuria, concerning for kidney stone vs UTI vs pyelonephritis. She also has small inguinal abscess that is amenable to draingae. I&D performed without complication. Will get UA, labs and CT scan for further evaluation of abd/flank pain. Not septic at this time. Reevaluation(s) Reevaluation #1: UA negative. No leukocytosis. CT scan showing small stone in the lower pole of the right kidney. Her inguinal abscess was drained. She feels overall better but has some residual pain in the area. Will treat for cellulitis with PO abx and have her f/u with her PCP. She is stable for d/c, instructed to return if symptoms worsen. MDM - Abdominal Pain Lab Data Result diagrams: 12/07/20 15:12 12/07/20 15:12 Labs: Lab Results 12/07/20 12/07/20 12/07/20 Range/Units 13:01 15:12 15:12 WBC 7.6 (4.8-10.8) X10*3/uL RBC 4.86 (4.20-5.50) X10*6/uL Hgb 14.1 (12.0-16.0) g/dl Hct 42.9 (37-47) % MCV 88.3 (80-98) fL MCH 29.0 (27.0-33.0) pg MCHC 32.9 (31.0-35.0) g/dl RDW 13.1 (11.0-16.0) % Plt Count 337 (160-400) X10*3/uL MPV 10.2 (9.4-12.3) fL Immature Gran % (Auto) 0.4 (0.0-0.4) % Neut % (Auto) 74.0 H (45-73) % Lymph % (Auto) 18.0 L (20-40) % [place] % (Auto) 6.3 (2-11) % Eos % (Auto) 0.9 (0-4) % Baso % (Auto) 0.4 (0-2) % Lymph # (Auto) 1.4 (1.2-4.9) X10*3/uL [place] # (Auto) 0.5 (0.1-1.2) X10*3/uL Eos # (Auto) 0.1 (0.0-0.4) X10*3/uL Baso # (Auto) 0.0 (0.0-0.2) X10*3/uL Abs Immat Gran (auto) 0.03 (0.00-0.03) X10*3/uL Absolute Neuts (auto) 5.6 (2.0-8.3) X10*3/uL Absolute Nucleated RBC 0.000 (0.0-0.012) X10*3/uL Nucleated RBC % (auto) 0.0 (0.0-0.2) /100WBC Sodium 142 (135-145) mmol/L Potassium 3.8 (3.3-5.1) mmol/L Chloride 102 (96-108) mmol/L Carbon Dioxide 28 (22-29) mmol/L Anion Gap 16 (12-20) BUN 12 (9-16) mg/dL Creatinine 0.68 (0.5-1.4) mg/dL Estim Creat Clear Calc 106.7 Estimated GFR > 60 Random Glucose 100 (60-115) mg/dL Calcium 9.4 D (8.4-10.2) mg/dL Urine Color YELLOW Urine Appearance CLOUDY Urine pH 6.5 (5.0-8.0) Ur Specific [place] 1.025 (1.005-1.025) Urine Protein 2+ H (NEG-TRACE) MG/DL Urine Glucose (UA) NEG (NEG) MG/DL Urine Ketones NEG (NEG) MG/DL Urine Blood TRACE (NEG) Urine Nitrite NEG (NEG) Ur Leukocyte Esterase NEG (NEG) Urine RBC 0-2 (0) /HPF Urine WBC 0-2 (0-4) /HPF Ur Squamous Epith Cells 2+ /LPF Urine Bacteria 2+ /LPF Urine Mucus 2+ /LPF Discharge Plan Discharge Clinical Impression: Abscess Patient Disposition: Home, Self-Care Instructions: Abscess Incision and Drainage (DC) Additional Instructions: Your CT can did not show any active kidney stones to be causing your pain. Your urine test showed no infection. You are being started on antibiotics for inflammation and infection of the skin in your groin. It was drained the ER today. Use warm compresses to the area several times per day to help get the infection out. It may drain more, this is normal. If you have increased pain, redness, swelling or any other worsening symptoms come back to the ER for further evaluation. Follow up with your doctor this week. Prescriptions: New ondansetron HCl [Zofran] 4 mg tablet 4 mg PO Q8H PRN (Reason: nausea and vomiting) Qty: 7 RF: 0 cephalexin [Keflex] 750 mg capsule 750 mg PO Q8H 5 Days Qty: 15 RF: 0 No Action ergocalciferol (vitamin D2) 1,250 mcg (50,000 unit) capsule 1,250 mcg PO QWEEK RF: 0 acetaminophen 325 mg tablet 650 mg PO Q6H PRN (Reason: pain) Qty: 30 RF: 0 sucralfate 1 gram tablet 1 g PO BID Qty: 60 RF: 5 lisinopril 5 mg tablet 5 mg PO DAILY Qty: 90 RF: 3 atorvastatin 20 mg tablet 20 mg PO DAILY Qty: 90 RF: 3 zolpidem 10 mg tablet 10 mg PO BEDTIME PRNRF: 0 clonazepam 2 mg tablet 2 mg PO BID RF: 0 dicyclomine 20 mg tablet 20 mg PO BID RF: 0 ondansetron HCl [Zofran] 4 mg tablet 4 mg PO Q6H RF: 0 Linzess 290 mcg capsule 290 mcg PO DAILY RF: 0 sumatriptan succinate [Imitrex] 50 mg tablet 50 mg PO Q2-4H PRNRF: 0 quetiapine [Seroquel XR] 300 mg tablet extended release 24 hr 300 mg PO BEDTIME RF: 0 lactulose 10 gram/15 mL solution 10 g PO DAILY RF: 0 pantoprazole 40 mg tablet,delayed release (DR/EC) 40 mg PO DAILY Qty: 30 RF: 1 PMFSH Past Medical History Medical History (Updated 12/07/20 @ 16:37 by NOEL Castaneda) Alcohol abuse Anxiety and depression Carpal tunnel syndrome 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 Diverticulosis GERD (gastroesophageal reflux disease) Hypercholesterolemia Hypertension Insomnia Renal calculi Spondylosis of lumbar spine Type 2 diabetes mellitus with hyperglycemia Vitamin D deficiency Surgical History H/O: hysterectomy History of tubal ligation Family History Family History (Updated 08/17/20 @ 10:03 by Eryn Jamison Carrie) Father Medical history unknown Mother Medical history unknown Paternal Aunt Uterine cancer Diabetes Hypertension Paternal Uncle Liver cancer Maternal Aunt Stroke Family/Other Chronic mental illness Social History Social History (Updated 09/29/20 @ 08:59 by Jacqui Hair CMA) Alcohol intake: former Smoking Status: Former smoker Advance Directives: No Advance Directives Information Provided: Yes Patient : No
[2020-12-07] MEDS: Ketorolac Tromethamine 30 MG/ML VIAL IVPUSH (16:00)
[2020-12-07] MEDS: ondansetron HCL 4 MG/2 ML VIAL IVPUSH (16:00)
[2020-12-07] MEDS: Lidocaine HCl 2 % MPF 5 ML VIAL INFILTRATI (16:41)
[2020-12-07] MEDS: 0.9 % Sodium Chloride 1,000 ML 999 ML IVCONT (16:41)
== END 2020-12-07 17:07 | disposition home or self-care (01) ==
PROVIDERS: Emergency Provider Emergency Medicine; PCP Internal Medicine
DX: L02.214 Cutaneous abscess of groin (principal); N20.0 Calculus of kidney; I10 Essential (primary) hypertension; E78.5 Hyperlipidemia, unspecified; F41.9 Anxiety disorder, unspecified; K21.9 Gastro-esophageal reflux disease without esophagitis; Z87.442 Personal history of urinary calculi; Z79.02 Long term (current) use of antithrombotics/antiplatelets; Z79.899 Other long term (current) drug therapy
CPT/HCPCS: 10060; 36415; 74176; 80048; 81001; 85025; 96361; 96374; 96375; 99283; 99284; J1885; J2405

== ENCOUNTER 2020-12-23 | Outpatient (REF) | payer OTHER, SELFPAY ==
[2020-12-25 11:49] LABS: BV Int Neg Control Negative (Negative); BV Int Pos Control Positive (Positive)
== END 2020-12-23 00:01 ==
LOC: HO.LAB
PROVIDERS: Visit Provider Hospitalist
DX: B37.3 Candidiasis of vulva and vagina (principal); M47.819 Spondylosis without myelopathy or radiculopathy, site unspecified
CPT/HCPCS: 87480; 87510; 87660

== ENCOUNTER 2021-01-04 12:29 | Outpatient (REF) | payer OTHER, SELFPAY | END 2021-01-04 12:30 | disposition home or self-care (01) | LOC: HO.NEURO 12:29 | PROVIDERS: Visit Provider Psychiatry & Neurology Neurology | DX: Z13.89 Encounter for screening for other disorder (principal) ==

== ENCOUNTER → 2021-02-03 10:07 | Outpatient (REF) | payer OTHER, SELFPAY | LOC: HO.SL 10:07 | PROVIDERS: PCP Internal Medicine; Visit Provider Internal Medicine | DX: Z13.89 Encounter for screening for other disorder (principal) ==

== ENCOUNTER 2021-02-18 11:19 | Emergency (ER) | payer OTHER, SELFPAY ==
--- NOTE | ~2021-02-18 | CT_ITS ---
EXAMINATION: LEFT HUMERUS X-RAY WITHOUT CONTRAST CLINICAL INFORMATION: Pain and rash COMPARISON: None TECHNIQUE: Axial images through the left humerus without contrast. Sagittal and coronal reconstructions on the technologist workstation were performed. FINDINGS: No fracture or dislocation is seen. No bone lesion or evidence of osteomyelitis is seen. There are small osteophytes at the glenohumeral joint. The acromioclavicular joint and elbow joints are normal. There are small left axillary lymph nodes. Soft tissues are otherwise normal. Visualized left lung clear. CT/CT humerus LT wo con IMPRESSION: Small osteophytes at the glenohumeral joint otherwise unremarkable exam.
--- NOTE | ~2021-02-18 | US_ITS ---
EXAMINATION: US VENOUS WITH DOPPLER UPPER EXTREMITY, LEFT CLINICAL INFORMATION: Left arm pain COMPARISON: None TECHNIQUE: Ultrasound of the upper extremity is performed using compression sonography and color and pulse Doppler flow with assessment of augmentation of flow. There is also imaging and Doppler assessment of the jugular and subclavian veins. Spectral analysis with color-flow imaging is performed. FINDINGS: Respiratory variation, normal compression, and augmented flow are noted throughout the upper extremity including the axillary, brachial, cubital, and radial and ulnar veins. There is normal flow in the internal jugular and subclavian veins. There is no visible deep or superficial thrombophlebitis. If the patient's symptoms progress, a followup ultrasound in 5 -7 days might be of value to exclude proximal propagation from a nonvisualized distal arm vein. US/US venous duplex UE LT IMPRESSION: No DVT demonstrated in the left upper extremity
[2021-02-18 14:52] VITALS: BP 145/93; PULSE 62; RESP 18; TEMP 36.7; O2SAT 99; BMI 32.9
--- NOTE | 2021-02-18 15:39 | ED_ITS ---
HPI - Extremity Problem General Chief complaint: Extremity Problem Stated complaint: CHEST PRESSURE L ARM PAIN Time Seen by Provider: 02/18/21 15:15 Source: patient Mode of arrival: ambulatory Limitations: language barrier (Auto Locator used) History of Present Illness HPI Narrative: Patient is a 40-year-old female with a past medical history of bilateral hand numbness, renal calculi, diverticulosis, HTN, HLD, GERD, spondylosis of the lumbar spine, anxiety and depression who presents with left upper arm pain and skin discoloration. Patient states this just started approximately 5 hours prior to arrival to the ED. She denies any chest pain, shortness of breath, trauma, headache, fever or dizziness are bug bites. She states it is very painful when she pushes on and she cannot lift her arm up all the way, she states her arm is numb and tingling and her left hand feels weak. Related Data Home Medications Medication Instructions Recorded Confirmed ergocalciferol (vitamin D2) 1,250 1,250 mcg PO QWEEK 08/15/20 01/24/21 mcg (50,000 unit) capsule clonazepam 2 mg tablet 2 mg PO BID 08/27/20 01/24/21 dicyclomine 20 mg tablet 20 mg PO BID 08/27/20 01/24/21 lactulose 10 gram/15 mL oral 10 g PO DAILY 08/27/20 01/24/21 solution linaclotide 290 mcg capsule 290 mcg PO DAILY 08/27/20 01/24/21 quetiapine 300 mg tablet,extended 300 mg PO BEDTIME 08/27/20 01/24/21 release 24 hr sumatriptan succinate 50 mg tablet 50 mg PO Q2-4H PRN 08/27/20 01/24/21 zolpidem 10 mg tablet 10 mg PO BEDTIME PRN 08/27/20 01/24/21 Previous Rx's Medication Instructions Recorded acetaminophen 325 mg tablet 650 mg PO Q6H PRN #30 tab 09/24/20 pantoprazole 40 mg tablet,delayed 40 mg PO DAILY #30 tab 09/29/20 release atorvastatin 20 mg tablet 20 mg PO DAILY #90 tab 11/22/20 lisinopril 5 mg tablet 5 mg PO DAILY #90 tab 11/22/20 sucralfate 1 gram tablet 1 g PO BID #60 tab 11/22/20 ondansetron HCl [Zofran] 4 mg PO Q8H PRN #7 tab 12/07/20 fluconazole 150 mg tablet 150 mg PO Q OTHER DAY 3 Days #2 tab 12/25/20 cyclobenzaprine 5 mg PO TID PRN #10 tab 02/18/21 Allergies Allergy/AdvReac Type Severity Reaction Status Date / Time tomato [TOMATO] Allergy Mild HIVES Verified 01/24/21 10:52 DIFFICULTY BREATHING hydrocodone [HYDROCODONE] Allergy Unknown RASH, Verified 01/24/21 10:52 AIRWAY CLOSES ibuprofen [From MOTRIN] Allergy Unknown STOMACH Verified 01/24/21 10:52 UPSET, vomiting Motrin Allergy Unknown stomach Verified 01/24/21 10:52 upset trazodone [TRAZODONE] Allergy Unknown UNKNOWN, Verified 01/24/21 10:52 stomach upset black pepper [BLACK PEPPER] AdvReac Severe DIFFICULTY Verified 01/24/21 10:52 BREATHING, hives Review of Systems Review of Systems: Yes all other systems are reviewed and are negative PMFSH Past Medical History 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 Diverticulosis GERD (gastroesophageal reflux disease) Hypercholesterolemia Hypertension Insomnia Obesity (BMI 30-39.9) Renal calculi Spondylosis of lumbar spine Type 2 diabetes mellitus with hyperglycemia Vitamin D deficiency Surgical History H/O: hysterectomy History of tubal ligation Family History Family History Father Medical history unknown Mother Medical history unknown Paternal Aunt Uterine cancer Diabetes Hypertension Paternal Uncle Liver cancer Maternal Aunt Stroke Family/Other Chronic mental illness Social History Social History Housing: Apartment Alcohol intake: former Patient Tobacco Use Status: Former Tobacco user e-Cigarette/Vaping Use: Never Used Second Hand Smoke Exposure: No Advance Directives: No Advance Directives Information Provided: Yes service: No Current occupational status: disabled Current occupational exposures/hazards: No Physical Exam Vital Signs: Vital Signs: Last Vital Signs Temp 98.1 F 02/18/21 16:30 Pulse 60 02/18/21 16:30 Resp 14 02/18/21 16:30 BP 148/87 H 02/18/21 16:30 Pulse Ox 98 02/18/21 16:30 Body Mass Index 32.9 Const: General: cooperative, healthy appearing, comfortable, no acute distress and well developed Orientation/consciousness: patient oriented x3 Limitati ons: no limitations HENMT: Head: Yes normal to inspection Eyes: General: appearance normal, both eyes and all related structures Neck: Neck: Yes normal visual inspection and Yes full ROM Resp: Effort & Inspection: normal respiratory effort and able to speak in complete sentences Auscultation: clear to auscultation bilaterally Cardio: Rate: regular rate Rhythm: regular rhythm Heart sounds: normal S1 and S2 GI: Inspection: Yes normal to inspection Skin: General skin exam: no rashes or lesions noted Neuro: General: patient oriented x3 Extrem: Other: Left arm, upper arm extremely tender to palpation, large areas of skin discoloration/rash, blanchable. No warmth, no ecchymosis, no edema. ROM limited 2/2 pain, cannot adduct overhead past 90 degrees. Left elbow joint nontender to palpation, full range of motion, no signs of infection noted, no ecchymosis or skin changes. Left wrist, full range of motion, no tenderness to palpation, left hand compliance examiner strength 2/5 (right hand compliance examiner strength 5/5), no signs of infection noted, no ecchymosis, fingers tips NVI. General: Yes normal to inspection Course Course Course Narrative: Patient is a 40-year-old female with a past medical history of bilateral hand numbness, renal calculi, diverticulosis, HTN, HLD, GERD, spondylosis of the lumbar spine, anxiety and depression who presents with left upper arm pain and skin discoloration. Vital signs stable, patient well appearing, will get labs including Lyme, EKG and humerus ultrasound. Does not appear to be cellulitis, question inflammatory etiology as ranch is b lanchable. MDM - Extremity (Nontraumatic) Lab Data Attestation: I reviewed the patient's lab results. Result diagrams: 02/18/21 16:17 02/18/21 16:17 Labs: Lab Results 02/18/21 02/18/21 02/18/21 Range/Units 16:17 16:17 16:17 WBC 6.5 (4.8-10.8) X10*3/uL RBC 4.80 (4.20-5.50) X10*6/uL Hgb 13.9 (12.0-16.0) g/dl Hct 42.8 (37-47) % MCV 89.2 (80-98) fL MCH 29.0 (27.0-33.0) pg MCHC 32.5 (31.0-35.0) g/dl RDW 12.8 (11.0-16.0) % Plt Count 355 (160-400) X10*3/uL MPV 10.6 (9.4-12.3) fL Immature Gran % (Auto) 0.3 (0.0-0.4) % Neut % (Auto) 66.8 (45-73) % Lymph % (Auto) 23.7 (20-40) % Crowley % (Auto) 7.8 (2-11) % Eos % (Auto) 0.9 (0-4) % Baso % (Auto) 0.5 (0-2) % Lymph # (Auto) 1.5 (1.2-4.9) X10*3/uL Crowley # (Auto) 0.5 (0.1-1.2) X10*3/uL Eos # (Auto) 0.1 (0.0-0.4) X10*3/uL Baso # (Auto) 0.0 (0.0-0.2) X10*3/uL Abs Immat Gran (auto) 0.02 (0.00-0.03) X10*3/uL Absolute Neuts (auto) 4.3 (2.0-8.3) X10*3/uL Absolute Nucleated RBC 0.000 (0.0-0.012) X10*3/uL Nucleated RBC % (auto) 0.0 (0.0-0.2) /100WBC ESR 5 (0-20) MM/HR Sodium 138 (135-145) mmol/L Potassium 3.8 (3.3-5.1) mmol/L Chloride 105 (96-108) mmol/L Carbon Dioxide 23 (22-29) mmol/L Anion Gap 14 (12-20) BUN 9 (9-16) mg/dL Creatinine 0.74 (0.5-1.4) mg/dL Estim Creat Clear Calc 100.0 Estimated GFR > 60 Random Glucose 95 (60-115) mg/dL Calcium 9.8 (8.4-10.2) mg/dL Total Bilirubin 0.5 (0.0-1.0) mg/dL AST 14 (5-31) U/L ALT 9 (0-31) U/L Alkaline Phosphatase 71 (39-117) U/L Troponin I High Sens (<3.5-17.0) ng/L C-Reactive Protein 0.30 (< or = 0.50) mg/dL Total Protein 7.7 (6.5-8.0) g/dL Albumin 4.8 (3.5-5.0) g/dL 02/18/21 Range/Units 16:18 WBC (4.8-10.8) X10*3/uL RBC (4.20-5.50) X10*6/uL Hgb (12.0-16.0) g/dl Hct (37-47) % MCV (80-98) fL MCH (27.0-33.0) pg MCHC (31.0-35.0) g/dl RDW (11.0-16.0) % Plt Count (160-400) X10*3/uL MPV (9.4-12.3) fL Immature Gran % (Auto) (0.0-0.4) % Neut % (Auto) (45-73) % Lymph % (Auto) (20-40) % Crowley % (Auto) (2-11) % Eos % (Auto) (0-4) % Baso % (Auto) (0-2) % Lymph # (Auto) (1.2-4.9) X10*3/uL Crowley # (Auto) (0.1-1.2) X10*3/uL Eos # (Auto) (0.0-0.4) X10*3/uL Baso # (Auto) (0.0-0.2) X10*3/uL Abs Immat Gran (auto) (0.00-0.03) X10*3/uL Absolute Neuts (auto) (2.0-8.3) X10*3/uL Absolute Nucleated RBC (0.0-0.012) X10*3/uL Nucleated RBC % (auto) (0.0-0.2) /100WBC ESR (0-20) MM/HR Sodium (135-145) mmol/L Potassium (3.3-5.1) mmol/L Chloride (96-108) mmol/L Carbon Dioxide (22-29) mmol/L Anion Gap (12-20) BUN (9-16) mg/dL Creatinine (0.5-1.4) mg/dL Estim Creat Clear Calc Estimated GFR Random Glucose (60-115) mg/dL Calcium (8.4-10.2) mg/dL Total Bilirubin (0.0-1.0) mg/dL AST (5-31) U/L ALT (0-31) U/L Alkaline Phosphatase (39-117) U/L Troponin I High Sens < 3.5 (<3.5-17.0) ng/L C-Reactive Protein (< or = 0.50) mg/dL Total Protein (6.5-8.0) g/dL Albumin (3.5-5.0) g/dL Imaging Data Left humerus CT scan: Attestation: I personally reviewed and interpreted this imaging study as follows: Radiologist's impression: [address] Scan ReportSigned Patient: Sundeep Leger#: [id number]: 1980Acct:[id number]/Sex: 40 / FADM Date: 02/18/21Loc: [address] Dr: Ordering Physician: Carly Kumari PA-C Date of Service: 02/18/21 Procedure(s): CT humerus LT wo con Accession Number(s): [id number] cc: Carly Kumari PA-C~ EXAMINATION: LEFT HUMERUS X-RAY WITHOUT CONTRAST CLINICAL INFORMATION: Pain and rash COMPARISON: None TECHNIQUE: Axial images through the left humerus without contrast. Sagittal and coronal reconstructions on the technologist workstation were performed. FINDINGS: No fracture or dislocation is seen. No bone lesion or evidence of osteomyelitis is seen. There are small osteophytes at the glenohumeral joint. The acromioclavicular joint and elbow joints are normal. There are small left axillary lymph nodes. Soft tissues are otherwise normal. Visualized left lung clear. CT/CT humerus LT wo con IMPRESSION: Small osteophytes at the glenohumeral joint otherwise unremarkable exam. Dictated By:NIEVES AGRAWAL MDSigned By:<Electronically signed by NIEVES AGRAWAL MD in OV>02/18/21 1606 DD/ 1526TD/TT: Motor Vehicle Operator Road Supervisor: BALJINDER Ultrasound left upper extremity: Attestation: I personally reviewed and interpreted this imaging study as belgica paz: My impression: no DVT Radiologist's impression: [address] [id number] ReportSigned Patient: Sundeep Leger#: [id number]: 1980Acct:[id number]/Sex: 40 / FADM Date: 02/18/21Loc: EDAttending Dr: Ordering Physician: Calry Kumari PA-C Date of Service: 02/18/21 Procedure(s): US venous duplex UE LT Accession Number(s): [id number] cc: Carly Kumari PA-C~ EXAMINATION: US VENOUS WITH DOPPLER UPPER EXTREMITY, LEFT CLINICAL INFORMATION: Left arm pain COMPARISON: None TECHNIQUE: Ultrasound of the upper extremity is performed using compression sonography and color and pulse Doppler flow with assessment of augmentation of flow. There is also imaging and Doppler assessment of the jugular and subclavian veins. Spectral analysis with color-flow imaging is performed. FINDINGS: Respiratory variation, normal compression, and augmented flow are noted throughout the upper extremity including the axillary, brachial, cubital, and radial and ulnar veins. There is normal flow in the internal jugular and subclavian veins. There is no visible deep or superficial thrombophlebitis. If the patient's symptoms progress, a followup ultrasound in 5 -7 days might be of value to exclude proximal propagation from a nonvisualized distal arm vein. US/US venous duplex UE LT IMPRESSION: No DVT demonstrated in the left upper extremity Dictated By:HEENA SANTOYO MDSigned By:<Electronically signed by HEENA SANTOYO MD in OV>02/18/211936 DD/ 175TD/TT: Motor Vehicle Operator Road Supervisor: GLORIA ECG Data Attestation EKG: I personally reviewed and interpreted this ECG as follows: Interpretation: Normal sinus rhythm 65 BPM, no acute ST or T-wave changes. Discharge Plan Discharge Clinical Impression: Arm pain, left Patient Disposition: Home, Self-Care Instructions: Arm Pain (ED) Additional Instructions: Today in the emergency department you ruled out for an upper extremity left-side deep vein thrombosis, cellulitis or issues with the bones in your left arm. Her arm pain continues, please follow-up with your primary care doctor on Sunday. The meanwhile you can use Tylenol or ibuprofen for pain, ice and rest. I have also sent a prescription to the pharmacy for the muscle relaxer for you. Prescriptions: New cyclobenzaprine 5 mg tablet 5 mg PO TID PRN (Reason: muscle spasm) Qty: 10 RF: 0 No Action ergocalciferol (vitamin D2) 1,250 mcg (50,000 unit) capsule 1,250 mcg PO QWEEK RF: 0 acetaminophen 325 mg tablet 650 mg PO Q6H PRN (Reason: pain) Qty: 30 RF: 0 sucralfate 1 gram tablet 1 g PO BID Qty: 60 RF: 5 lisinopril 5 mg tablet 5 mg PO DAILY Qty: 90 RF: 3 atorvastatin 20 mg tablet 20 mg PO DAILY Qty: 90 RF: 3 ondansetron HCl [Zofran] 4 mg tablet 4 mg PO Q8H PRN (Reason: nausea and vomiting) Qty: 7 RF: 0 zolpidem 10 mg tablet 10 mg PO BEDTIME PRNRF: 0 clonazepam 2 mg tablet 2 mg PO BID RF: 0 dicyclomine 20 mg tablet 20 mg PO BID RF: 0 Linzess 290 mcg capsule 290 mcg PO DAILY RF: 0 sumatriptan succinate [Imitrex] 50 mg tablet 50 mg PO Q2-4H PRNRF: 0 quetiapine [Seroquel XR] 300 mg tablet extended release 24 hr 300 mg PO BEDTIME RF: 0 lactulose 10 gram/15 mL solution 10 g PO DAILY RF: 0 pantoprazole 40 mg tablet,delayed release (DR/EC) 40 mg PO DAILY Qty: 30 RF: 1 fluconazole 150 mg tablet 150 mg PO Q OTHER DAY 3 Days Qty: 2 RF: 0 Referrals: Po,Deirdre Raymundo MD [Primary Care Provider] - 3 days (If your arm pain continues) Print Language: Irish
--- NOTE | 2021-02-18 15:41 | ECG_ITS ---
Test Reason : CHEST PAIN Blood Pressure : / mmHG Vent. Rate : 065 BPM Atrial Rate : 065 BPM P-R Int : 132 ms QRS Dur : 098 ms QT Int : 384 ms P-R-T Axes : 042 058 025 degrees QTc Int : 399 ms Normal sinus rhythm Normal ECG When compared with ECG of 29-NOV-2019 11:57, No significant change was found Referred By: Carly Kumari Electronically Signed By:DINA ESQUIVEL MD
[2021-02-18] MEDS: Acetaminophen 325 MG TABLET 650 MG PO (16:00)
[2021-02-18 16:28] LABS: MANUAL DIFF FLAG NO
[2021-02-18 16:30] VITALS: BP 148/87; PULSE 60; RESP 14; TEMP 36.7; O2SAT 98
[2021-02-18 16:31] LABS: Basophils Percent Auto 0.5 % (0-2); Eosinophils Absolute Auto 0.1 X10*3/uL (0.0-0.4); Eosinophils Percent Auto 0.9 % (0-4); Hematocrit 42.8 % (37-47); Hemoglobin 13.9 g/dl (12.0-16.0); Imm Gran Abs Auto 0.02 X10*3/uL (0.00-0.03); Imm Gran Pct Auto 0.3 % (0.0-0.4); Lymphocytes Absolute Auto 1.5 X10*3/uL (1.2-4.9); Lymphocytes Percent Auto 23.7 % (20-40); Mean Corpuscular HGB Conc 32.5 g/dl (31.0-35.0); Mean Corpuscular Volume 89.2 fL (80-98); Mean Platelet Volume 10.6 fL (9.4-12.3); Monocytes Absolute Auto 0.5 X10*3/uL (0.1-1.2); Monocytes Percent Auto 7.8 % (2-11); Neutrophils Absolute Auto 4.3 X10*3/uL (2.0-8.3); Neutrophils Percent Auto 66.8 % (45-73); Platelet Count 355 X10*3/uL (160-400); Red Cell Distribution Width 12.8 % (11.0-16.0); White Blood Count 6.5 X10*3/uL (4.8-10.8)
[2021-02-18 16:54] LABS: Alanine Aminotransferase 9 U/L (0-31); Albumin Level 4.8 g/dL (3.5-5.0); Alkaline Phosphatase 71 U/L (39-117); Anion Gap 14 (12-20); Aspartate Amino Transferase 14 U/L (5-31); Bilirubin Total 0.5 mg/dL (0.0-1.0); Blood Urea Nitrogen 9 mg/dL (9-16); Calcium 9.8 mg/dL (8.4-10.2); Carbon Dioxide 23 mmol/L (22-29); Chloride 105 mmol/L (96-108); Estimated Glomerular Filt Rate > 60; Glucose Random 95 mg/dL (60-115); Potassium 3.8 mmol/L (3.3-5.1); Sodium 138 mmol/L (135-145); Total Protein 7.7 g/dL (6.5-8.0)
[2021-02-18 16:54] LABS: Troponin-I High Sensitivity < 3.5 ng/L (<3.5-17.0)
[2021-02-18 17:47] LABS: Erythrocyte Sedimentation Rate 5 MM/HR (0-20)
[2021-02-18] MEDS: Cyclobenzaprine HCl 5 MG TABLET PO (19:58)
[2021-02-21 18:16] LABS: Lyme Abs Screen <0.90 index
== END 2021-02-18 20:00 | disposition home or self-care (01) ==
PROVIDERS: Physician Assistant; Emergency Provider Emergency Medicine; PCP Internal Medicine
DX: M79.601 Pain in right arm (principal); M79.602 Pain in left arm; R60.0 Localized edema; I10 Essential (primary) hypertension; Z87.891 Personal history of nicotine dependence; Z79.899 Other long term (current) drug therapy
CPT/HCPCS: 36415; 73200; 80053; 84484; 85025; 85652; 86140; 86617; 86618; 93005; 93971; 99284

== ENCOUNTER 2021-02-21 13:44 | Outpatient (REF) | payer OTHER, SELFPAY ==
[2021-02-22 10:48] LABS: BV Int Neg Control Negative (Negative); BV Int Pos Control Positive (Positive)
== END 2021-02-21 13:45 | disposition home or self-care (01) ==
LOC: HO.LAB 13:44
PROVIDERS: Visit Provider Nurse Practitioner Family
DX: N89.8 Other specified noninflammatory disorders of vagina (principal); R30.0 Dysuria
CPT/HCPCS: 87086; 87480; 87510; 87660

== ENCOUNTER 2021-03-17 12:32 | Outpatient (REF) | payer OTHER, SELFPAY | END 2021-03-17 12:33 | disposition home or self-care (01) | LOC: HO.LAB 12:32 | PROVIDERS: PCP Internal Medicine; Visit Provider Internal Medicine | DX: Z20.822 Contact with and (suspected) exposure to COVID-19 (principal) | CPT/HCPCS: C9803; U0003; U0005 ==

== ENCOUNTER 2021-04-29 12:01 | Emergency (ER) | payer OTHER, SELFPAY ==
[2021-04-29 12:10] VITALS: BP 144/97; PULSE 90; RESP 18; TEMP 36; O2SAT 100; BMI 31.6
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
[2021-04-29] MEDS: oxyCODONE HCl Immed Release 5 MG TABLET PO (13:02)
== END 2021-04-29 13:11 | disposition home or self-care (01) ==
PROVIDERS: Emergency Provider Emergency Medicine; PCP Internal Medicine
DX: R20.0 Anesthesia of skin (principal); M54.16 Radiculopathy, lumbar region; Z79.899 Other long term (current) drug therapy
CPT/HCPCS: 96372; 99284

== ENCOUNTER 2021-05-12 09:46 | Outpatient (REF) | payer OTHER, SELFPAY ==
--- NOTE | 2021-05-12 09:48 | EMG_ITS ---
Bilateral median and ulnar motor and sensory studies were performed. Bilateral radial sensory studies were performed and paraspinal muscles were tested. IMPRESSION: Mild left ulnar neuropathy across cubital tunnel. Otherwise, this study did not reveal any significant abnormality. MD KELVIN Alvarado/WINIFRED / [id number]
== END 2021-05-12 09:47 | disposition home or self-care (01) ==
LOC: HO.NEURO 09:46
PROVIDERS: Visit Provider Internal Medicine
DX: R20.0 Anesthesia of skin (principal)
CPT/HCPCS: 95886; 95911

== ENCOUNTER → 2021-05-16 11:21 | Outpatient (BNVA) | payer OTHER, SELFPAY | PROVIDERS: PCP Internal Medicine; Visit Provider Anesthesiology | DX: M47.816 Spondylosis without myelopathy or radiculopathy, lumbar region (principal); M51.36 Other intervertebral disc degeneration, lumbar region | CPT/HCPCS: 99212 ==

== ENCOUNTER 2021-05-18 03:12 | Emergency (ER) | payer OTHER, SELFPAY ==
--- NOTE | 2021-05-18 | ECG_ITS ---
Test Reason : CP Blood Pressure : / mmHG Vent. Rate : 088 BPM Atrial Rate : 088 BPM P-R Int : 138 ms QRS Dur : 094 ms QT Int : 362 ms P-R-T Axes : 067 072 040 degrees QTc Int : 438 ms Normal sinus rhythm RSR' or QR pattern in V1 suggests right ventricular conduction delay Otherwise normal ECG When compared with ECG of 18-FEB-2021 11:39, No significant change was found Referred By: Generic ED Physician Electronically Signed By:PEDRO HURD MD
--- NOTE | ~2021-05-18 | XR_ITS ---
EXAMINATION: XR CHEST CLINICAL INFORMATION: Chest pain COMPARISON: 05/09/2020 TECHNIQUE: Frontal view of the chest was obtained. FINDINGS: The lungs are clear with no focal consolidation. No evidence of pneumothorax, pulmonary edema, or pleural effusions. The cardiomediastinal silhouette is unremarkable. No acute osseous findings. XR/XR chest 1V IMPRESSION: No acute cardiopulmonary findings.
[2021-05-18 03:31] VITALS: BP 165/95; PULSE 91; RESP 18; TEMP 36.7; O2SAT 98; BMI 31.6
--- NOTE | 2021-05-18 03:37 | ED_ITS ---
HPI - Chest Pain General Chief Complaint: Chest Pain Stated Complaint: CP Time Seen by Provider: 05/18/21 03:29 Source: patient Mode of arrival: ambulatory Limitations: no limitations History of Present Illness HPI narrative: Patient comes emergency room complaining of palpitations, anxiety, chest pressure, abdominal cramping, all started a few hours ago, patient woke up with anxiety. Patient denies vomiting or diarrhea. Patient states that she feels that there is something moving inside her chest and abdomen Related Data Home Medications Medication Instructions Recorded Confirmed clonazepam 2 mg tablet 2 mg PO BID 08/27/20 05/12/21 dicyclomine 20 mg tablet 20 mg PO BID 08/27/20 05/12/21 lactulose 10 gram/15 mL oral 10 g PO DAILY 08/27/20 05/12/21 solution quetiapine 300 mg tablet,extended 300 mg PO BEDTIME 08/27/20 05/12/21 release 24 hr (Seroquel XR) sumatriptan succinate 50 mg tablet 50 mg PO Q2-4H PRN 08/27/20 05/12/21 (Imitrex) zolpidem 10 mg tablet 10 mg PO BEDTIME PRN 08/27/20 05/12/21 Previous Rx's Medication Instructions Recorded acetaminophen 325 mg tablet 650 mg PO Q6H PRN #30 tab 09/24/20 pantoprazole 40 mg tablet,delayed 40 mg PO DAILY #30 tab 09/29/20 release atorvastatin 20 mg tablet 20 mg PO DAILY #90 tab 11/22/20 lisinopril 5 mg tablet 5 mg PO DAILY #90 tab 11/22/20 sucralfate 1 gram tablet 1 g PO BID #60 tab 11/22/20 ondansetron HCl 4 mg tablet 4 mg PO Q8H PRN #7 tab 12/07/20 (Zofran) cyclobenzaprine 5 mg tablet 5 mg PO TID PRN #10 tab 02/18/21 cholecalciferol (vitamin D3) 50 50 mcg PO DAILY 90 Days #90 cap 03/03/21 mcg (2,000 unit) capsule linaclotide 290 mcg capsule 290 mcg PO DAILY 90 Days #90 cap 04/06/21 (Linzess) lidocaine 5 % topical patch 1 patch TOPICAL DAILY #15 ea 04/29/21 (Lidoderm) oxycodone 5 mg tablet 5 mg PO Q8H PRN #6 tab 04/29/21 blood pressure monitor (Blood #1 ea 05/12/21 Pressure Kit) ondansetron HCl 4 mg tablet 4 mg PO Q6H PRN #7 tab 05/18/21 (Zofran) Allergies Allergy/AdvReac Type Severity Reaction Status Date / Time tomato [TOMATO] Allergy Mild HIVES Verified 05/16/21 11:56 DIFFICULTY BREATHING hydrocodone [HYDROCODONE] Allergy Unknown RASH, Verified 05/16/21 11:56 AIRWAY CLOSES ibuprofen [From MOTRIN] Allergy Unknown STOMACH Verified 05/16/21 11:56 UPSET, vomiting Motrin Allergy Unknown stomach Verified 05/16/21 11:56 upset trazodone [TRAZODONE] Allergy Unknown UNKNOWN, Verified 05/16/21 11:56 stomach upset black pepper [BLACK PEPPER] AdvReac Severe DIFFICULTY Verified 05/16/21 11:56 BREATHING, hives Review of Systems Review of Systems: Constitutional : No Weight loss, No Fever, No Chills, No Night Sweats, No Fatigue, No Malaise ENT/Mouth : No Hearing loss, No Ear Pain, No Nasal Congestion, No Sinus Pain, No Hoarseness, No sore throat, No Rhinorrhea, No Swallowing Difficulty Eyes: No Eye Pain, No Swelling, No Redness, No Foreign Body, No Discharge, No Vi becca Changes Cardiovascular complaining of mild chest discomfort, mild abdominal discomfort, no shortness of breath Respiratory : No Cough, No Sputum, No Wheezing, No Smoke Exposure, No Dyspnea Gastrointestinal : No Nausea, No Vomiting, No Diarrhea, No Constipation, No abdominal Pain, No Hematochezia, No Melena Genitourinary : no irregular bleeding, complaining of Dysuria for couple of weeks No Urinary Frequency, No Hematuria, No Urinary Incontinence, No Urgency, No Flank Pain, No Urinary Flow Changes, No Hesitancy Musculoskeletal : No joint pain, No Myalgias, No Joint Swelling Skin : No Skin Lesions, No rash Neuro : No Weakness, No Numbness, No Paresthesias, No Loss of Consciousness, No Dizziness, No Headache Psych : Complaining of anxiety, No Depression, No SI/HI/AH/VH, No Social Issues , Heme/Lymph: No Bruising, No Bleeding,No Lymphadenopathy Endocrine : No Polyuria, No Polydipsia, No Temperature Intolerance PMFSH Past Medical History 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 Diverticulosis GERD (gastroesophageal reflux disease) Hypercholesterolemia Hypertension Insomnia Obesity (BMI 30-39.9) Renal calculi Spondylosis of lumbar spine Type 2 diabetes mellitus with hyperglycemia Vitamin D deficiency Surgical History H/O: hysterectomy History of tubal ligation Family History Family History (Updated 05/12/21 @ 11:41 by MIKHAIL Burch) Father Medical history unknown Mother Medical history unknown Paternal Aunt Uterine cancer Diabetes Hypertension Paternal Uncle Liver cancer Heart attack Maternal Aunt Stroke Family/Other Chronic mental illness Sister Uterine cancer Schizophrenia Brother Substance abuse Other Mental health disorder Social History Social History Housing: Apartment Alcohol intake: current Alcohol intake frequency: holidays/special occasions only Alcohol type: beer Patient Tobacco Use Status: Former Tobacco user e-Cigarette/Vaping Use: Never Used Second Hand Smoke Exposure: No Advance Directives: No Advance Directives Information Provided: Yes Patient : No service: No Current occupational status: disabled Current occupational exposures/hazards: No Physical Exam Vital Signs: Vital Signs: Last Vital Signs Temp 98.1 F 05/18/21 03:31 Pulse 91 05/18/21 03:31 Resp 18 05/18/21 03:31 BP 165/95 H 05/18/21 03:31 Pulse Ox 98 05/18/21 03:31 Body Mass Index 31.6 Const: Other: Appearance: Alert. Oriented X3. No acute distress. Anxious Eyes: Pupils equal, round and reactive to light. ENT: Pharynx normal. Neck: Normal inspection. Neck supple. No lymph nodes noted. No crepitus CVS: Normal heart rate and rhythm. Pulses normal. Normal S1 and S2 Respiratory: No respiratory distress. Breath sounds normal. No Wheezing. No rales Abdomen: Soft and nontender. No rigidity. No distention. good BS x4 Skin: Skin warm and dry. Normal skin color. Normal skin turgor. Extremities: No lower extremity edema. No Lacerations. No Rash Neuro: Oriented X 3. No motor deficit. No sensory deficit. Moving all extermities. No slurred speech. Course Course Course Narrative: Patient overall feeling better, a bit nauseous, anxious. Patient has no abdominal pain, no chest pain, no shortness of breath. Patient would like a prescription for Zofran. I discussed with the patient that if she continues having episodes of palpitations, chest pain, she can follow-up with her primary care physician, she may benefit from Holter monitor MDM - Chest Pain Lab Data Result diagrams: 05/18/21 03:44 05/18/21 03:44 Labs: Lab Results 05/18/21 05/18/21 05/18/21 Range/Units 03:44 03:44 03:44 WBC 7.3 (4.8-10.8) X10*3/uL RBC 4.24 (4.20-5.50) X10*6/uL Hgb 12.6 (12.0-16.0) g/dl Hct 37.7 (37-47) % MCV 88.9 (80-98) fL MCH 29.7 (27.0-33.0) pg MCHC 33.4 (31.0-35.0) g/dl RDW 14.8 (11.0-16.0) % Plt Count 338 (160-400) X10*3/uL MPV 10.4 (9.4-12.3) fL Immature Gran % (Auto) 0.6 H (0.0-0.4) % Neut % (Auto) 49.3 (45-73) % Lymph % (Auto) 36.6 (20-40) % [place] % (Auto) 10.7 (2-11) % Eos % (Auto) 2.1 (0-4) % Baso % (Auto) 0.7 (0-2) % Lymph # (Auto) 2.7 (1.2-4.9) X10*3/uL [place] # (Auto) 0.8 (0.1-1.2) X10*3/uL Eos # (Auto) 0.2 (0.0-0.4) X10*3/uL Baso # (Auto) 0.1 (0.0-0.2) X10*3/uL Abs Immat Gran (auto) 0.04 H (0.00-0.03) X10*3/uL Absolute Neuts (auto) 3.6 (2.0-8.3) X10*3/uL Absolute Nucleated RBC 0.000 (0.0-0.012) X10*3/uL Nucleated RBC % (auto) 0.0 (0.0-0.2) /100WBC Sodium 141 (135-145) mmol/L Potassium 3.5 (3.3-5.1) mmol/L Chloride 105 (96-108) mmol/L Carbon Dioxide 24 (22-29) mmol/L Anion Gap 16 (12-20) BUN 17 H D (9-16) mg/dL Creatinine 0.91 (0.5-1.4) mg/dL Estim Creat Clear Calc 79.6 Estimated GFR > 60 Random Glucose 109 (60-115) mg/dL Calcium 9.4 (8.4-10.2) mg/dL Total Bilirubin 0.7 (0.0-1.0) mg/dL AST 16 (5-31) U/L ALT 18 (0-31) U/L Alkaline Phosphatase 52 D (39-117) U/L Troponin I High Sens < 3.5 (<3.5-17.0) ng/L Total Protein 7.3 (6.5-8.0) g/dL Albumin 4.6 (3.5-5.0) g/dL Lipase 21 (8-78) U/L Urine Color Urine Appearance Urine pH (5.0-8.0) Ur Specific [place] (1.005-1.025) Urine Protein (NEG-TRACE) MG/DL Urine Glucose (UA) (NEG) MG/DL Urine Ketones (NEG) MG/DL Urine Blood (NEG) Urine Nitrite (NEG) Ur Leukocyte Esterase (NEG) Urine Test (NEGATIVE) Ethyl Alcohol mg/dL 05/18/21 05/18/21 05/18/21 Range/Units 03:44 03:44 03:44 WBC (4.8-10.8) X10*3/uL RBC (4.20-5.50) X10*6/uL Hgb (12.0-16.0) g/dl Hct (37-47) % MCV (80-98) fL MCH (27.0-33.0) pg MCHC (31.0-35.0) g/dl RDW (11.0-16.0) % Plt Count (160-400) X10*3/uL MPV (9.4-12.3) fL Immature Gran % (Auto) (0.0-0.4) % Neut % (Auto) (45-73) % Lymph % (Auto) (20-40) % [place] % (Auto) (2-11) % Eos % (Auto) (0-4) % Baso % (Auto) (0-2) % Lymph # (Auto) (1.2-4.9) X10*3/uL [place] # (Auto) (0.1-1.2) X10*3/uL Eos # (Auto) (0.0-0.4) X10*3/uL Baso # (Auto) (0.0-0.2) X10*3/uL Abs Immat Gran (auto) (0.00-0.03) X10*3/uL Absolute Neuts (auto) (2.0-8.3) X10*3/uL Absolute Nucleated RBC (0.0-0.012) X10*3/uL Nucleated RBC % (auto) (0.0-0.2) /100WBC Sodium (135-145) mmol/L Potassium (3.3-5.1) mmol/L Chloride (96-108) mmol/L Carbon Dioxide (22-29) mmol/L Anion Gap (12-20) BUN (9-16) mg/dL Creatinine (0.5-1.4) mg/dL Estim Creat Clear Calc Estimated GFR Random Glucose (60-115) mg/dL Calcium (8.4-10.2) mg/dL Total Bilirubin (0.0-1.0) mg/dL AST (5-31) U/L ALT (0-31) U/L Alkaline Phosphatase (39-117) U/L Troponin I High Sens (<3.5-17.0) ng/L Total Protein (6.5-8.0) g/dL Albumin (3.5-5.0) g/dL Lipase (8-78) U/L Urine Color YELLOW Urine Appearance CLEAR Urine pH 7.0 (5.0-8.0) Ur Specific [place] 1.020 (1.005-1.025) Urine Protein TRACE (NEG-TRACE) MG/DL Urine Glucose (UA) NEG (NEG) MG/DL Urine Ketones NEG (NEG) MG/DL Urine Blood NEG (NEG) Urine Nitrite NEG (NEG) Ur Leukocyte Esterase NEG (NEG) Urine Test NEGATIVE (NEGATIVE) Ethyl Alcohol < 10 mg/dL Imaging Data Chest x-ray: Radiologist's impression: FINDINGS: The lungs are clear with no focal consolidation. No evidence of pneumothorax, pulmonary edema, or pleural effusions. The cardiomediastinal silhouette is unremarkable. No acute osseous findings. XR/XR chest 1V IMPRESSION: No acute cardiopulmonary findings. ? Discharge Plan Discharge Clinical Impression: Anxiety, Nausea Patient Disposition: Home, Self-Care Instructions: Acute Nausea and Vomiting (ED), Anxiety (ED) Additional Instructions: Please follow-up with your primary care physician tomorrow. If you have any worsening or new symptoms, please return to the emergency room or call 911 Prescriptions: New ondansetron HCl [Zofran] 4 mg tablet 4 mg PO Q6H PRN (Reason: nausea and vomiting) Qty: 7 RF: 0 No Action acetaminophen 325 mg tablet 650 mg PO Q6H PRN (Reason: pain) Qty: 30 RF: 0 sucralfate 1 gram tablet 1 g PO BID Qty: 60 RF: 5 lisinopril 5 mg tablet 5 mg PO DAILY Qty: 90 RF: 3 atorvastatin 20 mg tablet 20 mg PO DAILY Qty: 90 RF: 3 cholecalciferol (vitamin D3) 50 mcg (2,000 unit) capsule 50 mcg PO DAILY 90 Days Qty: 90 RF: 1 cyclobenzaprine 5 mg tablet 5 mg PO TID PRN (Reason: muscle spasm) Qty: 10 RF: 0 ondansetron HCl [Zofran] 4 mg tablet 4 mg PO Q8H PRN (Reason: nausea and vomiting) Qty: 7 RF: 0 oxycodone 5 mg tablet 5 mg PO Q8H PRN (Reason: pain) Qty: 6 RF: 0 lidocaine [Lidoderm] 5 % adhesive patch,medicated 1 patch topical DAILY Qty: 15 RF: 0 zolpidem 10 mg tablet 10 mg PO BEDTIME PRNRF: 0 clonazepam 2 mg tablet 2 mg PO BID RF: 0 dicyclomine 20 mg tablet 20 mg PO BID RF: 0 sumatriptan succinate [Imitrex] 50 mg tablet 50 mg PO Q2-4H PRNRF: 0 quetiapine [Seroquel XR] 300 mg tablet extended release 24 hr 300 mg PO BEDTIME RF: 0 lactulose 10 gram/15 mL solution 10 g PO DAILY RF: 0 pantoprazole 40 mg tablet,delayed release (DR/EC) 40 mg PO DAILY Qty: 30 RF: 1 Linzess 290 mcg capsule 290 mcg PO DAILY 90 Days Qty: 90 RF: 0 (DME) blood pressure monitor [Blood Pressure Kit] Kit See Rx Instructions .Route Qty: 1 RF: 0
[2021-05-18 03:51] LABS: MANUAL DIFF FLAG NO
[2021-05-18 03:56] LABS: Basophils Absolute Auto 0.1 X10*3/uL (0.0-0.2); Basophils Percent Auto 0.7 % (0-2); Eosinophils Absolute Auto 0.2 X10*3/uL (0.0-0.4); Eosinophils Percent Auto 2.1 % (0-4); Hematocrit 37.7 % (37-47); Hemoglobin 12.6 g/dl (12.0-16.0); Imm Gran Abs Auto 0.04 X10*3/uL (0.00-0.03); Imm Gran Pct Auto 0.6 % (0.0-0.4); Lymphocytes Absolute Auto 2.7 X10*3/uL (1.2-4.9); Lymphocytes Percent Auto 36.6 % (20-40); Mean Corpuscular HGB Conc 33.4 g/dl (31.0-35.0); Mean Corpuscular Hemoglobin 29.7 pg (27.0-33.0); Mean Corpuscular Volume 88.9 fL (80-98); Mean Platelet Volume 10.4 fL (9.4-12.3); Monocytes Absolute Auto 0.8 X10*3/uL (0.1-1.2); Monocytes Percent Auto 10.7 % (2-11); Neutrophils Absolute Auto 3.6 X10*3/uL (2.0-8.3); Neutrophils Percent Auto 49.3 % (45-73); Platelet Count 338 X10*3/uL (160-400); Red Blood Count 4.24 X10*6/uL (4.20-5.50); Red Cell Distribution Width 14.8 % (11.0-16.0); White Blood Count 7.3 X10*3/uL (4.8-10.8)
[2021-05-18 03:57] LABS: Appearance Urine CLEAR; Color Urine YELLOW; Glucose Urine UA NEG (NEG); Leukocyte Esterase Urine NEG (NEG); Nitrite Urine NEG (NEG); Urine Blood NEG (NEG); Urine Ketones NEG (NEG); Urine Protein TRACE MG/DL (NEG-TRACE)
[2021-05-18 03:59] LABS: Urine Pregnancy NEGATIVE (NEGATIVE)
[2021-05-18 04:00] LABS: UPreg QC Valid YES
[2021-05-18 04:10] LABS: Alanine Aminotransferase 18 U/L (0-31); Albumin Level 4.6 g/dL (3.5-5.0); Alkaline Phosphatase 52 U/L (39-117); Anion Gap 16 (12-20); Aspartate Amino Transferase 16 U/L (5-31); Bilirubin Total 0.7 mg/dL (0.0-1.0); Blood Urea Nitrogen 17 mg/dL (9-16); Calcium 9.4 mg/dL (8.4-10.2); Carbon Dioxide 24 mmol/L (22-29); Chloride 105 mmol/L (96-108); Creatinine Clr Calc Pharmacy 79.6; Estimated Glomerular Filt Rate > 60; Glucose Random 109 mg/dL (60-115); Lipase 21 U/L (8-78); Potassium 3.5 mmol/L (3.3-5.1); Sodium 141 mmol/L (135-145); Total Protein 7.3 g/dL (6.5-8.0)
[2021-05-18 04:13] LABS: Ethanol < 10 mg/dL
[2021-05-18 04:16] LABS: Troponin-I High Sensitivity < 3.5 ng/L (<3.5-17.0)
[2021-05-18] MEDS: Ondansetron ODT 4 MG TAB.RAPDIS TRANSLINGU (05:18)
== END 2021-05-18 05:24 | disposition home or self-care (01) ==
PROVIDERS: Emergency Provider Emergency Medicine; PCP Internal Medicine
DX: F41.9 Anxiety disorder, unspecified (principal); R11.0 Nausea; I10 Essential (primary) hypertension; E11.9 Type 2 diabetes mellitus without complications
CPT/HCPCS: 36415; 71045; 80053; 81003; 81025; 82077; 83690; 84484; 85025; 93005; 99283; 99285

== ENCOUNTER 2021-06-14 11:48 | Outpatient (REF) | payer OTHER, SELFPAY ==
[2021-06-14 12:16] LABS: MANUAL DIFF FLAG NO
[2021-06-14 13:12] LABS: Basophils Percent Auto 0.9 % (0-2); Eosinophils Absolute Auto 0.1 X10*3/uL (0.0-0.4); Eosinophils Percent Auto 1.9 % (0-4); Hematocrit 39.5 % (37.0-47.0); Hemoglobin 12.9 g/dl (12.0-16.0); Imm Gran Abs Auto 0.03 X10*3/uL (0.00-0.03); Imm Gran Pct Auto 0.6 % (0.0-0.4); Lymphocytes Absolute Auto 1.2 X10*3/uL (1.2-4.9); Lymphocytes Percent Auto 26.6 % (20-40); Mean Corpuscular HGB Conc 32.7 g/dl (31.0-35.0); Mean Corpuscular Hemoglobin 29.7 pg (27.0-33.0); Mean Corpuscular Volume 90.8 fL (80.0-98.0); Mean Platelet Volume 10.8 fL (9.4-12.3); Monocytes Absolute Auto 0.5 X10*3/uL (0.1-1.2); Monocytes Percent Auto 11.2 % (2-11); Neutrophils Absolute Auto 2.7 x10*3/uL (2.0-8.3); Neutrophils Percent Auto 58.8 % (45-73); Platelet Count 332 X10*3/uL (160-400); Red Blood Count 4.35 X10*6/uL (4.20-5.50); White Blood Count 4.6 X10*3/uL (4.8-10.8)
[2021-06-14 13:40] LABS: Alanine Aminotransferase 14 U/L (0-31); Albumin Level 4.3 g/dL (3.5-5.0); Alkaline Phosphatase 49 U/L (39-117); Anion Gap 13 (12-20); Aspartate Amino Transferase 14 U/L (5-31); Bilirubin Total 0.4 mg/dL (0.0-1.0); Blood Urea Nitrogen 15 mg/dL (9-16); Calcium 8.9 mg/dL (8.4-10.2); Carbon Dioxide 26 mmol/L (22-29); Chloride 106 mmol/L (96-108); Cholesterol 173 mg/dL; Estimated Glomerular Filt Rate > 60; Glucose Random 94 mg/dL (60-115); HDL Cholesterol 37 mg/dL; LDL Cholesterol Calculated 118 mg/dl; Potassium 3.7 mmol/L (3.3-5.1); Sodium 141 mmol/L (135-145); Total Protein 6.9 g/dL (6.5-8.0); Triglycerides 90 mg/dL
[2021-06-14 14:01] LABS: Free T4 (Free Thyroxine) 0.98 ng/dL (0.71-1.85); Thyroid Stimulating Hormone 1.54 uIU/mL (0.32-4.0); Vitamin D 25-OH Total 14.2 ng/mL (>30)
[2021-06-14 14:21] LABS: Folate 10.4 ng/mL (> or = 4.0); Vitamin B12 215 pg/mL (200-900)
== END 2021-06-14 11:49 | disposition home or self-care (01) ==
LOC: HO.LAB 11:48
PROVIDERS: Internal Medicine; PCP Internal Medicine; Visit Provider Internal Medicine
DX: E78.00 Pure hypercholesterolemia, unspecified (principal); Z20.822 Contact with and (suspected) exposure to COVID-19
CPT/HCPCS: 36415; 80053; 80061; 82306; 82607; 82746; 84439; 84443; 85025; C9803; U0003; U0005

== ENCOUNTER 2021-08-17 12:54 | Emergency (ER) | payer OTHER, SELFPAY ==
[2021-08-17 14:20] VITALS: BP 174/96; PULSE 79; RESP 19; TEMP 36.6; BMI 29.2
[2021-08-17 14:32] LABS: MANUAL DIFF FLAG NO
[2021-08-17 14:35] LABS: Basophils Percent Auto 0.4 % (0-2); Eosinophils Absolute Auto 0.1 X10*3/uL (0.0-0.4); Eosinophils Percent Auto 1.6 % (0-4); Hematocrit 40.4 % (37.0-47.0); Hemoglobin 13.3 g/dl (12.0-16.0); Imm Gran Abs Auto 0.04 X10*3/uL (0.00-0.03); Imm Gran Pct Auto 0.6 % (0.0-0.4); Lymphocytes Absolute Auto 1.7 X10*3/uL (1.2-4.9); Lymphocytes Percent Auto 25.3 % (20-40); Mean Corpuscular HGB Conc 32.9 g/dl (31.0-35.0); Mean Platelet Volume 9.6 fL (9.4-12.3); Monocytes Absolute Auto 0.7 X10*3/uL (0.1-1.2); Monocytes Percent Auto 10.9 % (2-11); Neutrophils Absolute Auto 4.1 x10*3/uL (2.0-8.3); Neutrophils Percent Auto 61.2 % (45-73); Platelet Count 272 X10*3/uL (160-400); Red Blood Count 4.59 X10*6/uL (4.20-5.50); Red Cell Distribution Width 12.4 % (11.0-16.0); White Blood Count 6.8 X10*3/uL (4.8-10.8)
[2021-08-17 14:49] LABS: Alanine Aminotransferase 10 U/L (0-31); Albumin Level 4.2 g/dL (3.5-5.0); Alkaline Phosphatase 49 U/L (39-117); Anion Gap 11 (12-20); Aspartate Amino Transferase 11 U/L (5-31); Bilirubin Direct < 0.2 mg/dL (0.0-0.5); Bilirubin Total 0.4 mg/dL (0.0-1.0); Blood Urea Nitrogen 12 mg/dL (9-16); Calcium 8.8 mg/dL (8.4-10.2); Carbon Dioxide 29 mmol/L (22-29); Chloride 103 mmol/L (96-108); Estimated Glomerular Filt Rate > 60; Glucose Random 99 mg/dL (60-115); Potassium 3.8 mmol/L (3.3-5.1); Sodium 139 mmol/L (135-145); Total Protein 6.9 g/dL (6.5-8.0)
[2021-08-17 14:51] LABS: Appearance Urine HAZY; Color Urine YELLOW; Glucose Urine UA NEG (NEG); Leukocyte Esterase Urine NEG (NEG); Nitrite Urine NEG (NEG); PH 6.5 (5.0-8.0); Specific Gravity - Urine 1.025 (1.005-1.025); UACC Culture Trigger NO; Urine Blood TRACE (NEG); Urine Ketones NEG (NEG); Urine Protein 2+ MG/DL (NEG-TRACE)
[2021-08-17 14:52] LABS: UPreg QC Valid YES; Urine Pregnancy NEGATIVE (NEGATIVE)
[2021-08-17 15:02] LABS: Bacteria Urine 1+ /LPF; RBC Urine 0-2 /HPF (0); Squamous Epithelial Cell Urine 1+ /LPF; WBC Urine 0 /HPF (0-4)
[2021-08-17 15:03] LABS: Amorphous Sediment Urine 1+ /LPF; Mucus Urine 1+ /LPF
--- NOTE | 2021-08-17 17:05 | ED.ABDPAIN ---
HPI - Abdominal Pain General Chief Complaint: Abdominal Pain Stated Complaint: Abd Pain Time Seen by Provider: 08/17/21 17:05 Source: patient Mode of arrival: ambulatory Limitations: no limitations History of Present Illness HPI narrative: Patient complaining of nausea vomiting 4 times diarrhea twice diffuse abdominal pain for last 5 days history of same multiple times in the past and 2 CT scan last yr which were negative no blood in the stool patient does have similar pain almost every month for last couple of years has seen pmo analyst who did endoscopy and colonoscopy last and discharge her on Linzess is she taking it. Related Data Home Medications Medication Instructions Recorded Confirmed clonazepam 2 mg tablet 2 mg PO BID 08/27/20 05/12/21 dicyclomine 20 mg tablet 20 mg PO BID 08/27/20 05/12/21 lactulose 10 gram/15 mL oral 10 g PO DAILY 08/27/20 05/12/21 solution quetiapine 300 mg tablet,extended 300 mg PO BEDTIME 08/27/20 05/12/21 release 24 hr (Seroquel XR) sumatriptan succinate 50 mg tablet 50 mg PO Q2-4H PRN 08/27/20 05/12/21 (Imitrex) zolpidem 10 mg tablet 10 mg PO BEDTIME PRN 08/27/20 05/12/21 Previous Rx's Medication Instructions Recorded acetaminophen 325 mg tablet 650 mg PO Q6H PRN #30 tab 09/24/20 pantoprazole 40 mg tablet,delayed 40 mg PO DAILY #30 tab 09/29/20 release atorvastatin 20 mg tablet 20 mg PO DAILY #90 tab 11/22/20 lisinopril 5 mg tablet 5 mg PO DAILY #90 tab 11/22/20 ondansetron HCl 4 mg tablet 4 mg PO Q8H PRN #7 tab 12/07/20 (Zofran) cyclobenzaprine 5 mg tablet 5 mg PO TID PRN #10 tab 02/18/21 cholecalciferol (vitamin D3) 50 50 mcg PO DAILY 90 Days #90 cap 03/03/21 mcg (2,000 unit) capsule linaclotide 290 mcg capsule 290 mcg PO DAILY 90 Days #90 cap 04/06/21 (Linzess) lidocaine 5 % topical patch 1 patch TOPICAL DAILY #15 ea 04/29/21 (Lidoderm) oxycodone 5 mg tablet 5 mg PO Q8H PRN #6 tab 10/01/21 blood pressure monitor (Blood #1 ea 05/12/21 Pressure Kit) ondansetron HCl 4 mg tablet 4 mg PO Q6H PRN #7 tab 05/18/21 (Zofran) sucralfate 1 gram tablet 1 g PO BID #180 tab 05/23/21 cholecalciferol (vitamin D3) 50 50 mcg PO DAILY #30 tab 07/13/21 mcg (2,000 unit) tablet vitamin B complex (B 1 tab PO DAILY #30 tab 07/13/21 Complex-Vitamin B12) tramadol 50 mg tablet 50 mg PO Q6H PRN #14 tab 08/17/21 Allergies Allergy/AdvReac Type Severity Reaction Status Date / Time tomato [TOMATO] Allergy Mild HIVES Verified 05/16/21 11:56 DIFFICULTY BREATHING hydrocodone [HYDROCODONE] Allergy Unknown RASH, Verified 05/16/21 11:56 AIRWAY CLOSES ibuprofen [From MOTRIN] Allergy Unknown STOMACH Verified 05/16/21 11:56 UPSET, vomiting Motrin Allergy Unknown stomach Verified 05/16/21 11:56 upset trazodone [TRAZODONE] Allergy Unknown UNKNOWN, Verified 05/16/21 11:56 stomach upset black pepper [BLACK PEPPER] AdvReac Severe DIFFICULTY Verified 05/16/21 11:56 BREATHING, hives Review of Systems Review of Systems Yes all other systems are reviewed and are negative Physical Exam Vital Signs: Vital Signs: Last Vital Signs Temp 98 F 08/17/21 14:20 Pulse 79 08/17/21 14:20 Resp 19 08/17/21 14:20 BP 174/96 H 08/17/21 14:20 BMI result Body Mass Index 29.2 Appearance: Alert. Oriented X3. No acute distress. Eyes: No pallor icterus ENT: Pharynx normal. Oral Mucosa moist Neck: Normal inspection. Neck supple. CVS: Normal heart rate and rhythm. Pulses normal. Respiratory: No respiratory distress. Equal air entry bilateral, no wheezing/rales/rhonchi Abdomen: Soft , diffuse abdominal tenderness no focal tenderness or guarding, Bowel sounds are present, no mass palpable, no CVA tenderness Skin: Skin warm and dry. Normal skin color. Normal skin turgor. Extremities: No lower extremity edema. No calf tenderness Neuro: Oriented X 3. MDM - Abdominal Pain MDM Narrative Medical decision making narrative: Patient with chronic pain with diagnosis of IBS comes of similar pain previous workup negative discharge patient on tramadol Lab Data Attestation: I reviewed the patient's lab results. Result diagrams: 08/17/21 14:29 08/17/21 14:29 Labs: Lab Results 08/17/21 08/17/21 08/17/21 Range/Units 14:29 14:29 14:41 WBC 6.8 (4.8-10.8) X10*3/uL RBC 4.59 (4.20-5.50) X10*6/uL Hgb 13.3 (12.0-16.0) g/dl Hct 40.4 (37.0-47.0) % MCV 88.0 (80.0-98.0) fL MCH 29.0 (27.0-33.0) pg MCHC 32.9 (31.0-35.0) g/dl RDW 12.4 (11.0-16.0) % Plt Count 272 (160-400) X10*3/uL MPV 9.6 (9.4-12.3) fL Immature Gran % (Auto) 0.6 H (0.0-0.4) % Neut % (Auto) 61.2 (45-73) % Lymph % (Auto) 25.3 (20-40) % [place] % (Auto) 10.9 (2-11) % Eos % (Auto) 1.6 (0-4) % Baso % (Auto) 0.4 (0-2) % Lymph # (Auto) 1.7 (1.2-4.9) X10*3/uL [place] # (Auto) 0.7 (0.1-1.2) X10*3/uL Eos # (Auto) 0.1 (0.0-0.4) X10*3/uL Baso # (Auto) 0.0 (0.0-0.2) X10*3/uL Abs Immat Gran (auto) 0.04 H (0.00-0.03) X10*3/uL Absolute Neuts (auto) 4.1 (2.0-8.3) x10*3/uL Absolute Nucleated RBC 0.000 (0.0-0.012) X10*3/uL Nucleated RBC % (auto) 0.0 (0.0-0.2) /100WBC Sodium 139 (135-145) mmol/L Potassium 3.8 (3.3-5.1) mmol/L Chloride 103 (96-108) mmol/L Carbon Dioxide 29 (22-29) mmol/L Anion Gap 11 L (12-20) BUN 12 (9-16) mg/dL Creatinine 0.67 (0.5-1.4) mg/dL Estim Creat Clear Calc 104.0 Estimated GFR > 60 Random Glucose 99 (60-115) mg/dL Calcium 8.8 (8.4-10.2) mg/dL Total Bilirubin 0.4 (0.0-1.0) mg/dL Direct Bilirubin < 0.2 (0.0-0.5) mg/dL AST 11 (5-31) U/L ALT 10 (0-31) U/L Alkaline Phosphatase 49 (39-117) U/L Total Protein 6.9 (6.5-8.0) g/dL Albumin 4.2 (3.5-5.0) g/dL Urine Color YELLOW Urine Appearance HAZY Urine pH 6.5 (5.0-8.0) Ur Specific [place] 1.025 (1.005-1.025) Urine Protein 2+ H (NEG-TRACE) MG/DL Urine Glucose (UA) NEG (NEG) MG/DL Urine Ketones NEG (NEG) MG/DL Urine Blood TRACE (NEG) Urine Nitrite NEG (NEG) Ur Leukocyte Esterase NEG (NEG) Urine RBC 0-2 (0) /HPF Urine WBC 0 (0-4) /HPF Ur Squamous Epith Cells 1+ /LPF Amorphous Sediment 1+ /LPF Urine Bacteria 1+ /LPF Urine Mucus 1+ /LPF Urine Test (NEGATIVE) 08/17/21 Range/Units 14:41 WBC (4.8-10.8) X10*3/uL RBC (4.20-5.50) X10*6/uL Hgb (12.0-16.0) g/dl Hct (37.0-47.0) % MCV (80.0-98.0) fL MCH (27.0-33.0) pg MCHC (31.0-35.0) g/dl RDW (11.0-16.0) % Plt Count (160-400) X10*3/uL MPV (9.4-12.3) fL Immature Gran % (Auto) (0.0-0.4) % Neut % (Auto) (45-73) % Lymph % (Auto) (20-40) % [place] % (Auto) (2-11) % Eos % (Auto) (0-4) % Baso % (Auto) (0-2) % Lymph # (Auto) (1.2-4.9) X10*3/uL [place] # (Auto) (0.1-1.2) X10*3/uL Eos # (Auto) (0.0-0.4) X10*3/uL Baso # (Auto) (0.0-0.2) X10*3/uL Abs Immat Gran (auto) (0.00-0.03) X10*3/uL Absolute Neuts (auto) (2.0-8.3) x10*3/uL Absolute Nucleated RBC (0.0-0.012) X10*3/uL Nucleated RBC % (auto) (0.0-0.2) /100WBC Sodium (135-145) mmol/L Potassium (3.3-5.1) mmol/L Chloride (96-108) mmol/L Carbon Dioxide (22-29) mmol/L Anion Gap (12-20) BUN (9-16) mg/dL Creatinine (0.5-1.4) mg/dL Estim Creat Clear Calc Estimated GFR Random Glucose (60-115) mg/dL Calcium (8.4-10.2) mg/dL Total Bilirubin (0.0-1.0) mg/dL Direct Bilirubin (0.0-0.5) mg/dL AST (5-31) U/L ALT (0-31) U/L Alkaline Phosphatase (39-117) U/L Total Protein (6.5-8.0) g/dL Albumin (3.5-5.0) g/dL Urine Color Urine Appearance Urine pH (5.0-8.0) Ur Specific [place] (1.005-1.025) Urine Protein (NEG-TRACE) MG/DL Urine Glucose (UA) (NEG) MG/DL Urine Ketones (NEG) MG/DL Urine Blood (NEG) Urine Nitrite (NEG) Ur Leukocyte Esterase (NEG) Urine RBC (0) /HPF Urine WBC (0-4) /HPF Ur Squamous Epith Cells /LPF Amorphous Sediment /LPF Urine Bacteria /LPF Urine Mucus /LPF Urine Test NEGATIVE (NEGATIVE) Discharge Plan Discharge Clinical Impression: Irritable bowel syndrome Patient Disposition: Home, Self-Care Instructions: Irritable Bowel Syndrome (ED) Additional Instructions: Drink plenty of fluids Pain medicine as prescribed Follow-up with PCP/pmo analyst Prescriptions: New tramadol 50 mg tablet 50 mg PO Q6H PRN (Reason: pain) Qty: 14 RF: 0 No Action acetaminophen 325 mg tablet 650 mg PO Q6H PRN (Reason: pain) Qty: 30 RF: 0 lisinopril 5 mg tablet 5 mg PO DAILY Qty: 90 RF: 3 atorvastatin 20 mg tablet 20 mg PO DAILY Qty: 90 RF: 3 cholecalciferol (vitamin D3) 50 mcg (2,000 unit) capsule 50 mcg PO DAILY 90 Days Qty: 90 RF: 1 sucralfate 1 gram tablet 1 g PO BID Qty: 180 RF: 3 cholecalciferol (vitamin D3) 50 mcg (2,000 unit) tablet 50 mcg PO DAILY Qty: 30 RF: 6 vitamin B complex [B Complex-Vitamin B12] Tablet 1 tab PO DAILY Qty: 30 RF: 6 cyclobenzaprine 5 mg tablet 5 mg PO TID PRN (Reason: muscle spasm) Qty: 10 RF: 0 ondansetron HCl [Zofran] 4 mg tablet 4 mg PO Q8H PRN (Reason: nausea and vomiting) Qty: 7 RF: 0 oxycodone 5 mg tablet 5 mg PO Q8H PRN (Reason: pain) Qty: 6 RF: 0 lidocaine [Lidoderm] 5 % adhesive patch,medicated 1 patch topical DAILY Qty: 15 RF: 0 ondansetron HCl [Zofran] 4 mg tablet 4 mg PO Q6H PRN (Reason: nausea and vomiting) Qty: 7 RF: 0 zolpidem 10 mg tablet 10 mg PO BEDTIME PRNRF: 0 clonazepam 2 mg tablet 2 mg PO BID RF: 0 dicyclomine 20 mg tablet 20 mg PO BID RF: 0 sumatriptan succinate [Imitrex] 50 mg tablet 50 mg PO Q2-4H PRNRF: 0 quetiapine [Seroquel XR] 300 mg tablet extended release 24 hr 300 mg PO BEDTIME RF: 0 lactulose 10 gram/15 mL solution 10 g PO DAILY RF: 0 pantoprazole 40 mg tablet,delayed release (DR/EC) 40 mg PO DAILY Qty: 30 RF: 1 Linzess 290 mcg capsule 290 mcg PO DAILY 90 Days Qty: 90 RF: 0 (DME) blood pressure monitor [Blood Pressure Kit] Kit See Rx Instructions .Route Qty: 1 RF: 0 Interventions: ED Discharge Assessment Last Done: 08/17/21 17:56 Discharge Date/Time: 08/17/21 17:57 PMFSH Past Medical History 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 Diverticulosis GERD (gastroesophageal reflux disease) Hypercholesterolemia Hypertension Insomnia Obesity (BMI 30-39.9) Renal calculi Spondylosis of lumbar spine Type 2 diabetes mellitus with hyperglycemia Vitamin D deficiency Surgical History H/O: hysterectomy History of tubal ligation Family History Family History Father Medical history unknown Mother Medical history unknown Paternal Aunt Uterine cancer Diabetes Hypertension Paternal Uncle Liver cancer Heart attack Maternal Aunt Stroke Family/Other Chronic mental illness Sister Uterine cancer Schizophrenia Brother Substance abuse Other Mental health disorder Social History Social History Housing: Apartment Alcohol intake: current Alcohol intake frequency: holidays/special occasions only Alcohol type: beer Patient Tobacco Use Status: Former Tobacco user e-Cigarette/Vaping Use: Never Used Second Hand Smoke Exposure: No Advance Directives: No Advance Directives Information Provided: No service: No Current occupational status: disabled Current occupational exposures/hazards: No
[2021-08-17] MEDS: Dicyclomine HCl 10 MG CAPSULE 20 MG PO (18:00)
[2021-08-17] MEDS: Ondansetron ODT 4 MG TAB.RAPDIS TRANSLINGU (18:00)
[2021-08-17] MEDS: traMADoL HCL 50 MG TABLET PO (18:00)
== END 2021-08-17 17:57 | disposition home or self-care (01) ==
PROVIDERS: Emergency Provider Internal Medicine; PCP Internal Medicine
DX: K58.9 Irritable bowel syndrome, unspecified (principal); Z87.891 Personal history of nicotine dependence; Z79.899 Other long term (current) drug therapy
CPT/HCPCS: 36415; 80048; 80076; 81001; 81003; 81025; 85025; 99283

== ENCOUNTER 2021-09-08 13:41 | Outpatient (REF) | payer OTHER, SELFPAY ==
--- NOTE | ~2021-09-08 | XR_ITS ---
EXAMINATION: XR HAND, RIGHT CLINICAL INFORMATION: Wrist pain and hand pain. COMPARISON: None TECHNIQUE: PA, lateral, and oblique views of the right hand. FINDINGS: The bones and soft tissues are normal. No fracture. Alignment is anatomic. Joint spaces are maintained. No erosions or soft tissue calcifications. XR/XR hand RT 2V IMPRESSION: Normal right hand.
[2021-09-08 15:29] LABS: Erythrocyte Sedimentation Rate 6 MM/HR (0-20)
[2021-09-08 15:38] LABS: Folate 11.9 ng/mL (> or = 4.0); Vitamin B12 275 pg/mL (200-900)
[2021-09-12 21:45] LABS: Intrinsic Factor Antibodies Negative (Negative)
[2021-09-14 01:16] LABS: Parietal Cell Antibody <=20.0 Unit (<=20.0)
== END 2021-09-08 13:42 | disposition home or self-care (01) ==
LOC: HO.XRAY 13:41
PROVIDERS: PCP Internal Medicine; Visit Provider Internal Medicine
DX: M54.10 Radiculopathy, site unspecified (principal)
CPT/HCPCS: 36415; 73120; 82607; 82746; 83516; 85652; 86340

== ENCOUNTER 2021-11-01 19:48 | Emergency (ER) | payer OTHER, SELFPAY ==
[2021-11-01 19:56] VITALS: BP 135/49; PULSE 69; RESP 16; TEMP 36.7; O2SAT 96; BMI 29.9
[2021-11-01 21:08] VITALS: BP 112/66; PULSE 69; RESP 16; TEMP 36.8
--- NOTE | 2021-11-01 21:19 | PC.NURSE ---
pt a&ox3, vss - SpO2 not picking up on monitor, pt reporting right shoulder neck pain w facial and upper extremity numbness starting today at 1000 . hx gastric sleeve October 19. provider in room w pt.
--- NOTE | 2021-11-01 21:31 | ED_ITS ---
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 She denies any watery eyes or nasal congestion and denies any speech or ear pain. In addition, she denies any visual disturbances, dizziness, unilateral numbness/tingling/weakness. She does describe pain in the right hand only and does not describe any numbness or tingling in the forearm or proximal arm area. Related Data Home Medications Medication Instructions Recorded Confirmed dicyclomine 20 mg tablet 20 mg PO BID 08/27/20 10/26/21 lactulose 10 gram/15 mL oral 10 g PO DAILY 08/27/20 10/26/21 solution quetiapine 300 mg tablet,extended 300 mg PO BEDTIME 08/27/20 10/26/21 release 24 hr (Seroquel XR) sumatriptan succinate 50 mg tablet 50 mg PO Q2-4H PRN 08/27/20 10/26/21 (Imitrex) zolpidem 10 mg tablet 10 mg PO BEDTIME PRN 08/27/20 10/26/21 ascorbate calcium (vitamin C) 500 500 mg PO DAILY 09/08/21 10/26/21 mg tablet quetiapine 50 mg tablet 1 tab PO 09/22/21 10/26/21 venlafaxine 150 mg 1 cap PO DAILY 09/22/21 10/26/21 capsule,extended release 24 hr acetaminophen 500 mg tablet 1,000 mg PO Q8H 10/26/21 10/26/21 clonazepam 1 mg tablet 1 mg PO TID PRN 10/26/21 10/26/21 quetiapine 400 mg tablet 400 mg PO BEDTIME 10/26/21 10/26/21 simethicone 80 mg chewable tablet 80 mg PO Q6H PRN 10/26/21 10/26/21 ursodiol 300 mg capsule 300 mg PO BID 10/26/21 10/26/21 ziprasidone HCl 20 mg capsule 20 mg PO BID 10/26/21 10/26/21 Previous Rx's Medication Instructions Recorded acetaminophen 325 mg tablet 650 mg PO Q6H PRN #30 tab 09/24/20 pantoprazole 40 mg tablet,delayed 40 mg PO DAILY #30 tab 09/29/20 release cyclobenzaprine 5 mg tablet 5 mg PO TID PRN #10 tab 02/18/21 lidocaine 5 % topical patch 1 patch TOPICAL DAILY #15 ea 04/29/21 (Lidoderm) ondansetron HCl 4 mg tablet 4 mg PO Q6H PRN #7 tab 05/18/21 (Zofran) sucralfate 1 gram tablet 1 g PO BID #180 tab 05/23/21 vitamin B complex (B 1 tab PO DAILY #30 tab 07/13/21 Complex-Vitamin B12) atorvastatin 20 mg tablet 20 mg PO DAILY #90 tab 09/05/21 linaclotide 290 mcg capsule 290 mcg PO DAILY 90 Days #90 cap 09/05/21 (Linzess) cholecalciferol (vitamin D3) 50 50 mcg PO DAILY #90 tab 10/07/21 mcg (2,000 unit) tablet tramadol 50 mg tablet 50 mg PO Q6H PRN 30 Days #60 tab 10/24/21 amlodipine 5 mg tablet 5 mg PO DAILY #30 tab 10/26/21 blood pressure monitor (Blood #1 ea 10/31/21 Pressure Kit) blood sugar diagnostic (FreeStyle #100 ea 10/31/21 Lite Strips) blood-glucose meter (FreeStyle #1 ea 10/31/21 Lite Meter) lancets 28 gauge (FreeStyle #100 ea 10/31/21 Lancets) Allergies Allergy/AdvReac Type Severity Reaction Status Date / Time tomato [TOMATO] Allergy Mild HIVES Verified 10/26/21 11:33 DIFFICULTY BREATHING hydrocodone [HYDROCODONE] Allergy Unknown RASH, Verified 10/26/21 11:33 AIRWAY CLOSES ibuprofen [From MOTRIN] Allergy Unknown STOMACH Verified 10/26/21 11:33 UPSET, vomiting trazodone [TRAZODONE] Allergy Unknown UNKNOWN, Verified 10/26/21 11:33 stomach upset black pepper [BLACK PEPPER] AdvReac Severe DIFFICULTY Verified 10/26/21 11:33 BREATHING, hives Review of Systems Review of Systems: Pertinent positives and negatives as stated in HPI 10 point review of systems is otherwise negative. 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 Diverticulosis GERD (gastroesophageal reflux disease) History of bipolar disorder History of schizophrenia Hypercholesterolemia Hypertension Insomnia Obesity (BMI 30-39.9) Renal calculi Spondylosis of lumbar spine Type 2 diabetes mellitus with hyperglycemia Vitamin D deficiency Surgical History H/O: hysterectomy History of tubal ligation Family History Family History Father Medical history unknown Mother Medical history unknown Paternal Aunt Uterine cancer Diabetes Hypertension Paternal Uncle Liver cancer Heart attack Maternal Aunt Stroke Family/Other Chronic mental illness Sister Uterine cancer Schizophrenia Brother Substance abuse Other Mental health disorder Social History Social History Housing: Apartment Alcohol intake: never Patient Tobacco Use Status: Never used Tobacco e-Cigarette/Vaping Use: Never Used Second Hand Smoke Exposure: No Use of substances other than those prescribed or required for medical reasons: No Advance Directives: No Advance Directives Information Provided: Yes Patient : No service: No Current occupational status: disabled Current occupational exposures/hazards: No Cognitive needs: No Hearing needs: No Vision needs: No Physical Exam ED Vital Signs: Vital Signs - 24 hr 11/01/21 19:56 11/01/21 21:08 Temperature 98.1 F 98.3 F Pulse Rate 69 69 Respiratory Rate 16 16 Blood Pressure 135/49 L 112/66 Pulse Oximetry 96 BMI result Body Mass Index 29.9 VITAL SIGNS: Reviewed. GENERAL: Well developed, well nourished, in no acute distress. HEAD: Normocephalic/atraumatic EYES: PERRLA, EOMI intact without pain, no nystagmus EARS: Ext canals without abnormality, TMs non-bulging and non-erythematous, no vesicles NOSE: Nares patent bilateral, no vesicles or abnormalities noted OROPHARYNX: no oral lesions noted, posterior pharynx clear and non-erythematous without noted tonsillar enlargement/erythema/exudates, no intraoral vesicles or dental caries NECK: Supple, no adenopathy, pain on palpation at the paraspinal down onto the shoulder with evidence of muscle spasm LUNGS: Normal breath sounds. No adventitious sounds or accessory muscle use. SpO2<96> CARDIOVASCULAR: Regular rate and rhythm without noted murmurs, no JVD or lower extremity edema. ABDOMEN: Soft, non-tender, non-distended with bowel sounds. MUSCULOSKELETAL: No tenderness, deformities, or effusions noted on gross inspection. EXTREMITIES: No cyanosis, clubbing or edema; hand clip on sunglasses inspector 5/5 symmetrical SKIN: Inspection of the skin reveals no rashes, ulcerations, jaundice, pallor, or petechiae. NEUROLOGIC: Alert and oriented x 4. Strength and sensation to light touch were grossly intact x 4, although smile as the knee even otherwise facial symmetry is intact, no pronator drift, cranial nerves 2-12 intact Course Course Course Narrative: 41-year-old female with history and clinical presentation suggestive of musculoskeletal discomfort and possible headache. Given the distribution and character of the pain low clinical suspicion for herpes zoster/shingles and the headache is in consistent with cluster headache given clinical findings of spasm muscles along the neck and right shoulder cannot rule out tension headache there is no associated photosensitivity your nausea. Pain/numbness in the right hand only inconsistent at with central neurologic deficit and suspect possible carpal tunnel as patient has history within the left hand as well. Patient will be given combination analgesics but is allergic to ibuprofen and status post gastric sleeve and Flexeril as not an option due to patient being on tramadol. On re-evaluation patient states she is feeling better pain has significantly decreased. She is otherwise stable for discharge to home. Medical Decision Making Lab Data Labs: Lab Results 11/01/21 Range/Units 21:46 POC Glucose 87 (60-115) mg/dL Discharge Plan Discharge Clinical Impression: Headache, Muscle spasm, Hand pain Patient Disposition: Home, Self-Care Instructions: Arthralgia (ED), General Headache (ED), Muscle Spasm (ED) Additional Instructions: 1. Reanudar todos los medicamentos caseros seg?n lo prescrito. 2. Tylenol 1000 mg, por v?a oral, cada 6 horas seg?n sea necesario para controlar el dolor. No exceda los 4000 mg dentro de las 24 horas. 3. Parche de lidoca?na, estos est?n disponibles sin receta en todos los [facility], apl?quelos en el ?inna de m?xima sensibilidad martin se indica en el empaque exterior. 4. Realice un seguimiento con barnard proveedor de atenci?n primaria en los pr?ximos 2 a 3 d?as para dylan reevaluaci?n y un manejo ambulatorio adicional. Regrese a la rick de emergencias si los s?ntomas empeoran. Prescriptions: No Action acetaminophen 325 mg tablet 650 mg PO Q6H PRN (Reason: pain) Qty: 30 0RF sucralfate 1 gram tablet 1 g PO BID Qty: 180 3RF vitamin B complex [B Complex-Vitamin B12] Tablet 1 tab PO DAILY Qty: 30 6RF Rx Instructions: 1,000mcg dose daily atorvastatin 20 mg tablet 20 mg PO DAILY Qty: 90 1RF Linzess 290 mcg capsule 290 mcg PO DAILY 90 Days Qty: 90 1RF cholecalciferol (vitamin D3) 50 mcg (2,000 unit) tablet 50 mcg PO DAILY Qty: 90 3RF tramadol 50 mg tablet 50 mg PO Q6H PRN (Reason: pain) 30 Days Qty: 60 0RF (DME) blood pressure monitor [Blood Pressure Kit] Kit See Rx Instructions .Route Qty: 1 0RF Rx Instructions: As directed (DME) blood-glucose meter [FreeStyle Lite Meter] Kit See Rx Instructions .ROUTE .MEDSUPPLY Qty: 1 0RF Rx Instructions: As directed (DME) lancets [FreeStyle Lancets] 28 gauge misc See Rx Instructions .ROUTE .MEDSUPPLY Qty: 100 3RF Rx Instructions: As directed check BS QD (DME) FreeStyle Lite Strips Strip See Rx Instructions .ROUTE .MEDSUPPLY Qty: 100 3RF Rx Instructions: As directed check the BS QD cyclobenzaprine 5 mg tablet 5 mg PO TID PRN (Reason: muscle spasm) Qty: 10 0RF lidocaine [Lidoderm] 5 % adhesive patch,medicated 1 patch topical DAILY Qty: 15 0RF Rx Instructions: leave on most painful area for up to 12 hrs venlafaxine 150 mg capsule,extended release 24hr 1 cap PO DAILY 0RF quetiapine 50 mg tablet 1 tab PO 0RF ondansetron HCl [Zofran] 4 mg tablet 4 mg PO Q6H PRN (Reason: nausea and vomiting) Qty: 7 0RF zolpidem 10 mg tablet 10 mg PO BEDTIME PRN (Reason: Sleep) 0RF dicyclomine 20 mg tablet 20 mg PO BID 0RF sumatriptan succinate [Imitrex] 50 mg tablet 50 mg PO Q2-4H PRN (Reason: Migraine Headache) 0RF Rx Instructions: do not exceed 4 doses per 24 hrs quetiapine [Seroquel XR] 300 mg tablet extended release 24 hr 300 mg PO BEDTIME 0RF lactulose 10 gram/15 mL solution 10 g PO DAILY 0RF pantoprazole 40 mg tablet,delayed release (DR/EC) 40 mg PO DAILY Qty: 30 1RF ascorbate calcium (vitamin C) 500 mg tablet 500 mg PO DAILY 0RF ziprasidone HCl 20 mg capsule 20 mg PO BID 0RF quetiapine 400 mg tablet 400 mg PO BEDTIME 0RF acetaminophen 500 mg tablet 1,000 mg PO Q8H 0RF ursodiol 300 mg capsule 300 mg PO BID 0RF simethicone 80 mg tablet,chewable 80 mg PO Q6H PRN0RF clonazepam 1 mg tablet 1 mg PO TID PRN0RF amlodipine 5 mg tablet 5 mg PO DAILY Qty: 30 1RF Print Language: Indonesian
[2021-11-01 21:49] LABS: Glucose, Whole Blood 87 mg/dL (60-115)
[2021-11-01] MEDS: Acetaminophen 325 MG TABLET 975 MG PO (21:52)
[2021-11-01] MEDS: Lidocaine 4 % Patch ADH..PATCH 1 PATCH TRANSDERMA (21:52)
--- NOTE | 2021-11-01 22:22 | PC.NURSE ---
pt medicated per provider. lidocaine patch applied to right shoulder - pt indicated the most pain in this location.
[2021-11-01 23:36] VITALS: BP 118/56; PULSE 65; RESP 16; O2SAT 99
== END 2021-11-01 23:44 | disposition home or self-care (01) ==
PROVIDERS: Emergency Provider Student in an Organized Health Care Education/Training Program
DX: R51.9 Headache, unspecified (principal); M62.838 Other muscle spasm; M79.642 Pain in left hand; I10 Essential (primary) hypertension; Z90.3 Acquired absence of stomach [part of]
CPT/HCPCS: 82947; 99283; 99284

== ENCOUNTER 2021-11-02 13:43 | Outpatient (REF) | payer OTHER, SELFPAY ==
--- NOTE | ~2021-11-02 | MM_ITS ---
EXAMINATION: MM SCREENING DIGITAL BREAST TOMOSYNTHESIS, BILATERAL CLINICAL INFORMATION: Screening. Asymptomatic. Age 41. No prior breast imaging. Family history breast cancer, mother. The lifetime risk of breast cancer based on the Tyrer-Cuzick Model is 12%. COMPARISON: None (current study represents initial baseline exam). Comparison is made with CT abdomen 08/06/2018 TECHNIQUE: Digital breast tomosynthesis is performed in both the craniocaudal and mediolateral oblique views along with computer-aided detection (CAD). Synthesized 2D images are generated from the tomosynthesis. FINDINGS: There are scattered areas of fibroglandular density (ACR BI-RADS breast composition Category b). There are no significant masses, abnormal calcifications, or other abnormalities. There is no significant mass or architectural abnormality. There are several incidental low right axillary tail nodes, some are also partially in [id number] on CT abdomen. The skin contours are smooth. MM/MM tomosynthesis screening BI IMPRESSION: No mammographic evidence of malignancy. ASSESSMENT: BI-RADS 2: Benign RECOMMENDATION: Routine annual mammography screening. This patient's information was entered into a reminder system with a target due date for their next mammogram.
== END 2021-11-02 13:44 | disposition home or self-care (01) ==
LOC: HO.MAMMO 13:43
PROVIDERS: Visit Provider Internal Medicine
DX: Z12.31 Encounter for screening mammogram for malignant neoplasm of breast (principal)
CPT/HCPCS: 77063; 77067

== ENCOUNTER 2021-11-14 12:53 | Emergency (ER) | payer OTHER, SELFPAY ==
--- NOTE | ~2021-11-14 | CT_ITS ---
EXAMINATION: CT CHEST WITH CONTRAST CLINICAL INFORMATION: Dysphasia COMPARISON: None TECHNIQUE: Multidetector volumetric CT imaging of the chest was obtained after the administration of 7 mL of Omnipaque 350 intravenous contrast without immediate adverse reactions. Axial MIP volume rendering provided. Sagittal and coronal reformatted images were obtained. This CT examination was performed using dose optimization techniques as appropriate, variously including the following: *Automated exposure control *Adjustment of mA and/or kV according to patient size (this includes techniques or standardized protocols for targeted exams where dose is matched to indication/reason for exam; i.e. extremities or head) *Use of iterative reconstruction technique DLP: 387.5 mGy-cm FINDINGS: [employer]ACH[employer]PER[employer]: Unremarkable LUNGS: The lungs are clear with no evidence of inflammation or nodules. Central airways are patent MEDIASTINUM: The mediastinum is normal. The esophagus is dilated with small amount of retained fluid to the level of surgical casey, patient is status post gastric bypass surgery PLEURA: There is no pleural effusion. No pleural mass or thickening. AXILLA: No lymphadenopathy. UPPER ABDOMEN: Patient is status post gastric bypass surgery. There are a few very small low-attenuation lesions seen through the liver and most likely cysts. OSSEOUS STRUCTURES: Unremarkable. CT/CT chest w con IMPRESSION: Dilated esophagus with small amount of fluid to the level of bypass surgery. Fleischner guidelines were followed.
--- NOTE | ~2021-11-14 | CT_ITS ---
EXAMINATION: CT SOFT TISSUE NECK WITH CONTRAST CLINICAL INFORMATION: Dysphasia COMPARISON: None TECHNIQUE: Following the intravenous administration of 70 mL of Omnipaque 350 intravenous contrast, helical imaging was performed in the axial plane with generation of coronal and sagittal reformatted images. This CT examination was performed using dose optimization techniques as appropriate, variously including the following: *Automated exposure control *Adjustment of mA and/or kV according to patient size (this includes techniques or standardized protocols for targeted exams where dose is matched to indication/reason for exam; i.e. extremities or head) *Use of iterative reconstruction technique DLP: 995 mGy-cm FINDINGS: No cervical adenopathy is identified. The parotid glands are homogeneous in attenuation. The submandibular glands are normal. No contour abnormality or pathologic enhancement is seen within the oral cavity or pharyngeal mucosal space. The laryngeal structures are normal. The parapharyngeal fat is preserved. The carotid sheath vasculature opacify normally. No extra mucosal soft tissue mass or fluid collection is seen. No retropharyngeal fluid collection is seen. The thyroid gland is normal. The superior mediastinum is unremarkable. The lung apices are clear. The mastoid air cells and visualized portions of the paranasal sinuses are well-aerated. The temporomandibular joints are normal. No periapical disease is identified. No osseous abnormalities are seen. The imaged portions of the brain parenchyma are unremarkable. Visualized proximal esophagus is dilated and filled by fluid. CT/CT soft tissue neck w con IMPRESSION: Interphalangeal dilatation with fluid in the lumen of the esophagus,
[2021-11-14 14:24] VITALS: BP 126/86; PULSE 67; RESP 16; TEMP 36.9; O2SAT 100; BMI 29.0
--- NOTE | 2021-11-14 14:36 | ED_ITS ---
HPI - General Adult General Chief complaint: General Medical Stated complaint: headache Time Seen by Provider: 11/14/21 14:30 Source: patient Mode of arrival: ambulatory Limitations: no limitations History of Present Illness HPI narrative: s/p gastric sleeve at [facility] with Dr. Driscoll 10/19 noted 4 days ago feeling like she cannot swallow that there is mid throat irritation and things get stuck even liquids MD complaint: difficulty swallowing irritation Onset (ago): day(s) (4) Location: mouth (throat) Radiation: non-radiation Severity: moderate Quality: other (feeling fullness in throat - difficulty swallowing) Pain Consistency: intermittent Exacerbating factors: other (swallowing) Associated symptoms: denies other symptoms Treatments prior to arrival: other (taking all of her medications and following her diet as prescribed) Related Data Home Medications Medication Instructions Recorded Confirmed dicyclomine 20 mg tablet 20 mg PO BID 08/27/20 10/26/21 lactulose 10 gram/15 mL oral 10 g PO DAILY 08/27/20 10/26/21 solution quetiapine 300 mg tablet,extended 300 mg PO BEDTIME 08/27/20 10/26/21 release 24 hr (Seroquel XR) sumatriptan succinate 50 mg tablet 50 mg PO Q2-4H PRN 08/27/20 10/26/21 (Imitrex) zolpidem 10 mg tablet 10 mg PO BEDTIME PRN 08/27/20 10/26/21 ascorbate calcium (vitamin C) 500 500 mg PO DAILY 09/08/21 10/26/21 mg tablet quetiapine 50 mg tablet 1 tab PO 09/22/21 10/26/21 venlafaxine 150 mg 1 cap PO DAILY 09/22/21 10/26/21 capsule,extended release 24 hr acetaminophen 500 mg tablet 1,000 mg PO Q8H 10/26/21 10/26/21 clonazepam 1 mg tablet 1 mg PO TID PRN 10/26/21 10/26/21 quetiapine 400 mg tablet 400 mg PO BEDTIME 10/26/21 10/26/21 simethicone 80 mg chewable tablet 80 mg PO Q6H PRN 10/26/21 10/26/21 ursodiol 300 mg capsule 300 mg PO BID 10/26/21 10/26/21 ziprasidone HCl 20 mg capsule 20 mg PO BID 10/26/21 10/26/21 Previous Rx's Medication Instructions Recorded acetaminophen 325 mg tablet 650 mg PO Q6H PRN #30 tab 09/24/20 pantoprazole 40 mg tablet,delayed 40 mg PO DAILY #30 tab 09/29/20 release cyclobenzaprine 5 mg tablet 5 mg PO TID PRN #10 tab 02/18/21 lidocaine 5 % topical patch 1 patch TOPICAL DAILY #15 ea 04/29/21 (Lidoderm) ondansetron HCl 4 mg tablet 4 mg PO Q6H PRN #7 tab 05/18/21 (Zofran) sucralfate 1 gram tablet 1 g PO BID #180 tab 05/23/21 vitamin B complex (B 1 tab PO DAILY #30 tab 07/13/21 Complex-Vitamin B12) atorvastatin 20 mg tablet 20 mg PO DAILY #90 tab 09/05/21 linaclotide 290 mcg capsule 290 mcg PO DAILY 90 Days #90 cap 09/05/21 (Linzess) cholecalciferol (vitamin D3) 50 50 mcg PO DAILY #90 tab 10/07/21 mcg (2,000 unit) tablet tramadol 50 mg tablet 50 mg PO Q6H PRN 30 Days #60 tab 10/24/21 amlodipine 5 mg tablet 5 mg PO DAILY #30 tab 10/26/21 blood pressure monitor (Blood #1 ea 10/31/21 Pressure Kit) blood sugar diagnostic (FreeStyle #100 ea 10/31/21 Lite Strips) blood-glucose meter (FreeStyle #1 ea 10/31/21 Lite Meter) lancets 28 gauge (FreeStyle #100 ea 10/31/21 Lancets) Allergies Allergy/AdvReac Type Severity Reaction Status Date / Time tomato [TOMATO] Allergy Mild HIVES Verified 10/26/21 11:33 DIFFICULTY BREATHING hydrocodone [HYDROCODONE] Allergy Unknown RASH, Verified 10/26/21 11:33 AIRWAY CLOSES ibuprofen [From MOTRIN] Allergy Unknown STOMACH Verified 10/26/21 11:33 UPSET, vomiting trazodone [TRAZODONE] Allergy Unknown UNKNOWN, Verified 10/26/21 11:33 stomach upset black pepper [BLACK PEPPER] AdvReac Severe DIFFICULTY Verified 10/26/21 11:33 BREATHING, hives Review of Systems Review of Systems: Constitutional : pos intentional Weight loss, No Fever, No Chills, No Fatigue, No Malaise ENT/Mouth : pos sore throat, No Rhinorrhea, pos difficulty swallowing Eyes: No Eye Pain, No Swelling, No Redness Cardiovascular : No Chest Pain, No SOB, No Dyspnea on Exertion, No Orthopnea, No Edema, No Palpitations Respiratory : No Cough, No Sputum, No Wheezing Gastrointestinal : No Nausea, No Vomiting, No Diarrhea, pos Constipation, No abdominal Pain, No Hematochezia, No Melena, pos flatus Genitourinary : No Dysuria, No Urinary Frequency, No Hematuria, Musculoskeletal : No joint pain, No Myalgias, No Joint Swelling Skin : No Skin Lesions, No rash Neuro : No Weakness, No Numbness, No Dizziness, No Headache Psych : No Anxiety/Panic, No Depression Heme/Lymph: No Bruising, No Bleeding,No Lymphadenopathy Endocrine : No Polyuria, No Polydipsia All other systems reviewed and are negative [facility] Past Medical History Attestation statement: The following information was validated with the patient. 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 Diverticulosis GERD (gastroesophageal reflux disease) History of bipolar disorder History of schizophrenia Hypercholesterolemia Hypertension Insomnia Obesity (BMI 30-39.9) Renal calculi Spondylosis of lumbar spine Type 2 diabetes mellitus with hyperglycemia Vitamin D deficiency Surgical History H/O: hysterectomy History of tubal ligation Family History Family History Father Medical history unknown Mother Medical history unknown Paternal Aunt Uterine cancer Diabetes Hypertension Paternal Uncle Liver cancer Heart attack Maternal Aunt Stroke Family/Other Chronic mental illness Sister Uterine cancer Schizophrenia Brother Substance abuse Other Mental health disorder Social History Social History Housing: Apartment Alcohol intake: never Patient Tobacco Use Status: Never used Tobacco e-Cigarette/Vaping Use: Never Used Second Hand Smoke Exposure: No Advance Directives: No Advance Directives Information Provided: No service: No Current occupational status: disabled Current occupational exposures/hazards: No Cognitive needs: No Hearing needs: No Vision needs: No Physical Exam ED Vital Signs: Vital Signs - 24 hr 11/14/21 14:24 11/14/21 15:04 11/14/21 16:53 Temperature 98.4 F 98.1 F 98.7 F Pulse Rate 67 57 63 Respiratory Rate 16 14 14 Blood Pressure 126/86 103/60 128/64 Pulse Oximetry 100 98 96 BMI result Body Mass Index 29.0 Appearance: Alert. Oriented X3. No acute distress. Eyes: Pupils equal, round and reactive to light. ENT: Pharynx normal. no swelling or erythema appears normal Neck: Normal inspection. Neck supple. no mass felt externally no crepitus CVS: Normal heart rate and rhythm. Pulses normal. Respiratory: No respiratory distress. Breath sounds normal. Abdomen: Soft and non-tender. Incisions are c/d/i Skin: Skin warm and dry. Normal skin color. Normal skin turgor. Extremities: No lower extremity edema. No calf ttp Neuro: Oriented X 3. No motor deficit. No sensory deficit. Course Course Course Narrative: taking in PO, dilated esophagus but no obstruction she plans to call her surgeon in the AM - given CT copies and disc, tolerating PO, labs stable Medical Decision Making MDM Narrative Medical decision making narrative: 41 yo female with gastric sleeve surgery 10/19 at [facility] with Dr. Driscoll did well but noted 4 days ago she feels it is difficult to swallow at this time any kind of liquid consistency she feels that something gets stuck. She has some mild pain. She takes all medications as prescribed and follows her diet. At this time will need labs, IVF, CT scans of chest/neck for mass/hernia. Dispo per results and findings. Lab Data Result diagrams: 11/14/21 14:57 11/14/21 14:57 Labs: Lab Results 11/14/21 11/14/21 11/14/21 Range/Units 14:57 14:57 14:57 WBC 4.8 (4.8-10.8) X10*3/uL RBC 4.77 (4.20-5.50) X10*6/uL Hgb 13.7 (12.0-16.0) g/dl Hct 41.8 (37.0-47.0) % MCV 87.6 (80.0-98.0) fL MCH 28.7 (27.0-33.0) pg MCHC 32.8 (31.0-35.0) g/dl RDW 12.7 (11.0-16.0) % Plt Count 227 (160-400) X10*3/uL MPV 11.6 (9.4-12.3) fL Immature Gran % (Auto) 0.0 (0.0-0.4) % Neut % (Auto) 51.6 (45-73) % Lymph % (Auto) 36.6 (20-40) % [place] % (Auto) 9.7 (2-11) % Eos % (Auto) 1.7 (0-4) % Baso % (Auto) 0.4 (0-2) % Lymph # (Auto) 1.7 (1.2-4.9) X10*3/uL [place] # (Auto) 0.5 (0.1-1.2) X10*3/uL Eos # (Auto) 0.1 (0.0-0.4) X10*3/uL Baso # (Auto) 0.0 (0.0-0.2) X10*3/uL Abs Immat Gran (auto) 0.00 (0.00-0.03) X10*3/uL Absolute Neuts (auto) 2.5 (2.0-8.3) x10*3/uL Absolute Nucleated RBC 0.000 (0.0-0.012) X10*3/uL Nucleated RBC % (auto) 0.0 (0.0-0.2) /100WBC PT 13.0 (9.9-13.0) SEC INR 1.1 (0.9-1.1) Sodium 139 (135-145) mmol/L Potassium 3.8 (3.3-5.1) mmol/L Chloride 105 (96-108) mmol/L Carbon Dioxide 24 (22-29) mmol/L Anion Gap 14 (12-20) BUN 10 (9-16) mg/dL Creatinine 0.66 (0.5-1.4) mg/dL Estim Creat Clear Calc 104.2 Estimated GFR > 60 Random Glucose 85 (60-115) mg/dL Calcium 9.4 D (8.4-10.2) mg/dL Magnesium 2.0 (1.6-2.6) mg/dL Total Bilirubin 0.6 (0.0-1.0) mg/dL Direct Bilirubin 0.2 (0.0-0.5) mg/dL AST 13 (5-31) U/L ALT 11 (0-31) U/L Alkaline Phosphatase 54 (39-117) U/L Total Protein 6.9 (6.5-8.0) g/dL Albumin 4.3 (3.5-5.0) g/dL Lipase 38 (8-78) U/L Discharge Plan Discharge Clinical Impression: Dilatation of esophagus, S/P gastric sleeve procedure Patient Disposition: Home, Self-Care Instructions: Nutrition after Bariatric Surgery (DC) Additional Instructions: return to ED for any worsening symptoms or concerns there is no obstruction on your CT scans today but your esophagus is dilated. yo u need to see your surgeon tomorrow AM. Please call the office. You were given copies of your CT scans. Prescriptions: No Action acetaminophen 325 mg tablet 650 mg PO Q6H PRN (Reason: pain) Qty: 30 0RF sucralfate 1 gram tablet 1 g PO BID Qty: 180 3RF vitamin B complex [B Complex-Vitamin B12] Tablet 1 tab PO DAILY Qty: 30 6RF Rx Instructions: 1,000mcg dose daily atorvastatin 20 mg tablet 20 mg PO DAILY Qty: 90 1RF Linzess 290 mcg capsule 290 mcg PO DAILY 90 Days Qty: 90 1RF cholecalciferol (vitamin D3) 50 mcg (2,000 unit) tablet 50 mcg PO DAILY Qty: 90 3RF tramadol 50 mg tablet 50 mg PO Q6H PRN (Reason: pain) 30 Days Qty: 60 0RF (DME) blood pressure monitor [Blood Pressure Kit] Kit See Rx Instructions .Route Qty: 1 0RF Rx Instructions: As directed (DME) blood-glucose meter [FreeStyle Lite Meter] Kit See Rx Instructions .ROUTE .MEDSUPPLY Qty: 1 0RF Rx Instructions: As directed (DME) lancets [FreeStyle Lancets] 28 gauge misc See Rx Instructions .ROUTE .MEDSUPPLY Qty: 100 3RF Rx Instructions: As directed check BS QD (DME) FreeStyle Lite Strips Strip See Rx Instructions .ROUTE .MEDSUPPLY Qty: 100 3RF Rx Instructions: As directed check the BS QD cyclobenzaprine 5 mg tablet 5 mg PO TID PRN (Reason: muscle spasm) Qty: 10 0RF lidocaine [Lidoderm] 5 % adhesive patch,medicated 1 patch topical DAILY Qty: 15 0RF Rx Instructions: leave on most painful area for up to 12 hrs venlafaxine 150 mg capsule,extended release 24hr 1 cap PO DAILY 0RF quetiapine 50 mg tablet 1 tab PO 0RF ondansetron HCl [Zofran] 4 mg tablet 4 mg PO Q6H PRN (Reason: nausea and vomiting) Qty: 7 0RF zolpidem 10 mg tablet 10 mg PO BEDTIME PRN (Reason: Sleep) 0RF dicyclomine 20 mg tablet 20 mg PO BID 0RF sumatriptan succinate [Imitrex] 50 mg tablet 50 mg PO Q2-4H PRN (Reason: Migraine Headache) 0RF Rx Instructions: do not exceed 4 doses per 24 hrs quetiapine [Seroquel XR] 300 mg tablet extended release 24 hr 300 mg PO BEDTIME 0RF lactulose 10 gram/15 mL solution 10 g PO DAILY 0RF pantoprazole 40 mg tablet,delayed release (DR/EC) 40 mg PO DAILY Qty: 30 1RF ascorbate calcium (vitamin C) 500 mg tablet 500 mg PO DAILY 0RF ziprasidone HCl 20 mg capsule 20 mg PO BID 0RF quetiapine 400 mg tablet 400 mg PO BEDTIME 0RF acetaminophen 500 mg tablet 1,000 mg PO Q8H 0RF ursodiol 300 mg capsule 300 mg PO BID 0RF simethicone 80 mg tablet,chewable 80 mg PO Q6H PRN0RF clonazepam 1 mg tablet 1 mg PO TID PRN0RF amlodipine 5 mg tablet 5 mg PO DAILY Qty: 30 1RF
[2021-11-14] MEDS: 0.9 % Sodium Chloride 1,000 ML 999 ML IVCONT (15:00)
[2021-11-14 15:01] LABS: MANUAL DIFF FLAG NO
[2021-11-14 15:04] VITALS: BP 103/60; PULSE 57; RESP 14; TEMP 36.7; O2SAT 98
[2021-11-14 15:04] LABS: Basophils Percent Auto 0.4 % (0-2); Eosinophils Absolute Auto 0.1 X10*3/uL (0.0-0.4); Eosinophils Percent Auto 1.7 % (0-4); Hematocrit 41.8 % (37.0-47.0); Hemoglobin 13.7 g/dl (12.0-16.0); Lymphocytes Absolute Auto 1.7 X10*3/uL (1.2-4.9); Lymphocytes Percent Auto 36.6 % (20-40); Mean Corpuscular HGB Conc 32.8 g/dl (31.0-35.0); Mean Corpuscular Hemoglobin 28.7 pg (27.0-33.0); Mean Corpuscular Volume 87.6 fL (80.0-98.0); Mean Platelet Volume 11.6 fL (9.4-12.3); Monocytes Absolute Auto 0.5 X10*3/uL (0.1-1.2); Monocytes Percent Auto 9.7 % (2-11); Neutrophils Absolute Auto 2.5 x10*3/uL (2.0-8.3); Neutrophils Percent Auto 51.6 % (45-73); Platelet Count 227 X10*3/uL (160-400); Red Blood Count 4.77 X10*6/uL (4.20-5.50); Red Cell Distribution Width 12.7 % (11.0-16.0); White Blood Count 4.8 X10*3/uL (4.8-10.8)
[2021-11-14 15:08] LABS: INTERNATIONAL NORM RATIO 1.1 (0.9-1.1)
[2021-11-14 15:17] LABS: Alanine Aminotransferase 11 U/L (0-31); Albumin Level 4.3 g/dL (3.5-5.0); Alkaline Phosphatase 54 U/L (39-117); Anion Gap 14 (12-20); Aspartate Amino Transferase 13 U/L (5-31); Bilirubin Direct 0.2 mg/dL (0.0-0.5); Bilirubin Total 0.6 mg/dL (0.0-1.0); Blood Urea Nitrogen 10 mg/dL (9-16); Calcium 9.4 mg/dL (8.4-10.2); Carbon Dioxide 24 mmol/L (22-29); Chloride 105 mmol/L (96-108); Creatinine Clr Calc Pharmacy 104.2; Estimated Glomerular Filt Rate > 60; Glucose Random 85 mg/dL (60-115); Lipase 38 U/L (8-78); Potassium 3.8 mmol/L (3.3-5.1); Sodium 139 mmol/L (135-145); Total Protein 6.9 g/dL (6.5-8.0)
[2021-11-14] MEDS: iohexoL 350 MG/ML 100 ML INFUS..BTL IV (16:21)
[2021-11-14 16:53] VITALS: BP 128/64; PULSE 63; RESP 14; TEMP 37.1; O2SAT 96
--- NOTE | 2021-11-14 16:56 | PC.NURSE ---
Patient is alert and oriented x3. VSS. patient reports mid discomfort in her throat-denies difficulty swallowing.
[2021-11-14 18:17] VITALS: BP 113/73; PULSE 66; RESP 15; TEMP 36.8; O2SAT 97
== END 2021-11-14 19:30 | disposition home or self-care (01) ==
PROVIDERS: Emergency Provider Emergency Medicine; PCP Internal Medicine
DX: K22.89 Other specified disease of esophagus (principal); I10 Essential (primary) hypertension; E11.9 Type 2 diabetes mellitus without complications; Z98.84 Bariatric surgery status
CPT/HCPCS: 36415; 70491; 71260; 80048; 80076; 83690; 83735; 85025; 85610; 96360; 99284; Q9967

== ENCOUNTER 2021-11-28 11:36 | Emergency (ER) | payer OTHER, SELFPAY ==
[2021-11-28] VITALS (7 sets, daily range): BP systolic 103–121; BP diastolic 61–80; PULSE 51–66; RESP 12–16; O2SAT 98–100; BMI 26.9
--- NOTE | ~2021-11-28 | CT_ITS ---
EXAMINATION: CT HEAD WITHOUT CONTRAST CLINICAL INFORMATION: Fall. Head strike. COMPARISON: CT scan of the head 05/09/2020. TECHNIQUE: Contiguous axial imaging was performed from the skull base to vertex without intravenous administration of contrast. This CT examination was performed using dose optimization techniques as appropriate, variously including the following: *Automated exposure control *Adjustment of mA and/or kV according to patient size (this includes techniques or standardized protocols for targeted exams where dose is matched to indication/reason for exam; i.e. extremities or head) *Use of iterative reconstruction technique DLP: 587 mGy-cm FINDINGS: There is no acute intracranial hemorrhage or abnormal extra-axial collection. No intracranial mass effect or midline shift. Lateral and third ventricles are normal. No hydrocephalus. Ruiz-white matter differentiation is preserved and there is no evidence of acute territorial infarct. The calvarium and skull base are intact. Mastoid air cells and middle ear cavities are well aerated. No active paranasal sinus disease. CT/CT head/brain wo con IMPRESSION: Normal CT scan of the head.
[2021-11-28 12:55] LABS: Glucose, Whole Blood 70 mg/dL (60-115)
[2021-11-28 14:30] LABS: MANUAL DIFF FLAG NO
[2021-11-28 14:36] LABS: Basophils Percent Auto 0.6 % (0-2); Eosinophils Absolute Auto 0.1 X10*3/uL (0.0-0.4); Eosinophils Percent Auto 1.5 % (0-4); Hematocrit 38.3 % (37.0-47.0); Hemoglobin 12.4 g/dl (12.0-16.0); Imm Gran Abs Auto 0.01 X10*3/uL (0.00-0.03); Imm Gran Pct Auto 0.2 % (0.0-0.4); Lymphocytes Absolute Auto 1.9 X10*3/uL (1.2-4.9); Mean Corpuscular HGB Conc 32.4 g/dl (31.0-35.0); Mean Corpuscular Hemoglobin 28.5 pg (27.0-33.0); Mean Platelet Volume 11.4 fL (9.4-12.3); Monocytes Absolute Auto 0.4 X10*3/uL (0.1-1.2); Neutrophils Absolute Auto 2.4 x10*3/uL (2.0-8.3); Neutrophils Percent Auto 49.7 % (45-73); Platelet Count 248 X10*3/uL (160-400); Red Blood Count 4.35 X10*6/uL (4.20-5.50); Red Cell Distribution Width 12.9 % (11.0-16.0); White Blood Count 4.8 X10*3/uL (4.8-10.8)
[2021-11-28 14:48] LABS: Anion Gap 10 (12-20); Blood Urea Nitrogen 9 mg/dL (9-16); Calcium 9.3 mg/dL (8.4-10.2); Carbon Dioxide 27 mmol/L (22-29); Chloride 107 mmol/L (96-108); Creatinine Clr Calc Pharmacy 92.1; Estimated Glomerular Filt Rate > 60; Glucose Random 88 mg/dL (60-115); Potassium 3.9 mmol/L (3.3-5.1); Sodium 140 mmol/L (135-145)
--- NOTE | 2021-11-28 16:46 | ED.DIZZY ---
HPI - Dizziness General Chief Complaint: Dizziness Stated Complaint: dizziness, HBS Time Seen by Provider: 11/28/21 16:46 Source: patient Mode of arrival: ambulatory Limitations: no limitations History of Present Illness HPI Narrative: This is a 41-year-old female past medical history significant for gastric sleeve surgery it is down at [facility] 10/19/2021, diabetes, hypertension, schizophrenia, bipolar disorder presenting to the emergency department with complaints of low blood sugars at home, and multiple syncopal episodes x1 month progressively worsening over the past few days. Patient tells me that she has been struggling with these complaints over the past month after she had her gastric sleeve surgery. She tells me that yesterday her sugars were around 30, 40. She reports that she was walking on the street and she syncopized hitting her head left arm. She tells me that this has been happening her at least a few times a week and she tells me that she has presyncopal episodes daily. Patient tells me that her current diet consist of shakes which were recommended to her by bariatrics at [facility]. She is taking all her medications as prescribed and is following her diet. MD elicited complaint: dizziness, lightheadedness and other (falls) Onset (ago): month(s) (1) Timing: constant Severity: severe Description: sense of movement Context: other (Sleeve gastrectomy 10/19/2021) History of similar symptoms: No Exacerbating factors: nothing Relieving factors: nothing Associated symptoms: denies other symptoms Related Data Home Medications Medication Instructions Recorded Confirmed dicyclomine 20 mg tablet 20 mg PO BID 08/27/20 10/26/21 lactulose 10 gram/15 mL oral 10 g PO DAILY 08/27/20 10/26/21 solution quetiapine 300 mg tablet,extended 300 mg PO BEDTIME 08/27/20 10/26/21 release 24 hr (Seroquel XR) sumatriptan succinate 50 mg tablet 50 mg PO Q2-4H PRN 08/27/20 10/26/21 (Imitrex) zolpidem 10 mg tablet 10 mg PO BEDTIME PRN 08/27/20 10/26/21 ascorbate calcium (vitamin C) 500 500 mg PO DAILY 09/08/21 10/26/21 mg tablet quetiapine 50 mg tablet 1 tab PO 09/22/21 10/26/21 venlafaxine 150 mg 1 cap PO DAILY 09/22/21 10/26/21 capsule,extended release 24 hr acetaminophen 500 mg tablet 1,000 mg PO Q8H 10/26/21 10/26/21 clonazepam 1 mg tablet 1 mg PO TID PRN 10/26/21 10/26/21 quetiapine 400 mg tablet 400 mg PO BEDTIME 10/26/21 10/26/21 simethicone 80 mg chewable tablet 80 mg PO Q6H PRN 10/26/21 10/26/21 ursodiol 300 mg capsule 300 mg PO BID 10/26/21 10/26/21 ziprasidone HCl 20 mg capsule 20 mg PO BID 10/26/21 10/26/21 Previous Rx's Medication Instructions Recorded acetaminophen 325 mg tablet 650 mg PO Q6H PRN #30 tab 09/24/20 pantoprazole 40 mg tablet,delayed 40 mg PO DAILY #30 tab 09/29/20 release cyclobenzaprine 5 mg tablet 5 mg PO TID PRN #10 tab 02/18/21 lidocaine 5 % topical patch 1 patch TOPICAL DAILY #15 ea 04/29/21 (Lidoderm) ondansetron HCl 4 mg tablet 4 mg PO Q6H PRN #7 tab 05/18/21 (Zofran) sucralfate 1 gram tablet 1 g PO BID #180 tab 05/23/21 vitamin B complex (B 1 tab PO DAILY #30 tab 07/13/21 Complex-Vitamin B12) atorvastatin 20 mg tablet 20 mg PO DAILY #90 tab 09/05/21 linaclotide 290 mcg capsule 290 mcg PO DAILY 90 Days #90 cap 09/05/21 (Linzess) cholecalciferol (vitamin D3) 50 50 mcg PO DAILY #90 tab 10/07/21 mcg (2,000 unit) tablet tramadol 50 mg tablet 50 mg PO Q6H PRN 30 Days #60 tab 10/24/21 amlodipine 5 mg tablet 5 mg PO DAILY #30 tab 10/26/21 blood pressure monitor (Blood #1 ea 10/31/21 Pressure Kit) blood sugar diagnostic (FreeStyle #100 ea 10/31/21 Lite Strips) blood-glucose meter (FreeStyle #1 ea 10/31/21 Lite Meter) lancets 28 gauge (FreeStyle #100 ea 10/31/21 Lancets) Allergies Allergy/AdvReac Type Severity Reaction Status Date / Time tomato [TOMATO] Allergy Mild HIVES Verified 10/26/21 11:33 DIFFICULTY BREATHING hydrocodone [HYDROCODONE] Allergy Unknown RASH, Verified 10/26/21 11:33 AIRWAY CLOSES ibuprofen [From MOTRIN] Allergy Unknown STOMACH Verified 10/26/21 11:33 UPSET, vomiting trazodone [TRAZODONE] Allergy Unknown UNKNOWN, Verified 10/26/21 11:33 stomach upset black pepper [BLACK PEPPER] AdvReac Severe DIFFICULTY Verified 10/26/21 11:33 BREATHING, hives Review of Systems Review of Systems: Constitutional : No Weight loss, No Fever, No Chills, No Fatigue, No Malaise ENT/Mouth : No sore throat, No Rhinorrhea Eyes: No Eye Pain, No Swelling, No Redness Cardiovascular : No Chest Pain, No SOB, No Dyspnea on Exertion, No Orthopnea, No Edema, No Palpitations Respiratory : No Cough, No Sputum, No Wheezing Gastrointestinal : No Nausea, No Vomiting, No Diarrhea, No Constipation, No abdominal Pain, No Hematochezia, No Melena Genitourinary : No Dysuria, No Urinary Frequency, No Hematuria, Musculoskeletal : No joint pain, No Myalgias, No Joint Swelling Skin : No Skin Lesions, No rash Neuro : No Weakness, No Numbness, No Dizziness, No Headache Psych : No Anxiety/Panic, No Depression All other systems reviewed and are negative Yes all other systems are reviewed and are negative PMFSH Past Medical History Attestation statement: The following information was validated with the patient. 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 Diverticulosis GERD (gastroesophageal reflux disease) History of bipolar disorder History of schizophrenia Hypercholesterolemia Hypertension Insomnia Obesity (BMI 30-39.9) Renal calculi Spondylosis of lumbar spine Type 2 diabetes mellitus with hyperglycemia Vitamin D deficiency Surgical History H/O: hysterectomy History of tubal ligation Family History Family History Father Medical history unknown Mother Medical history unknown Paternal Aunt Uterine cancer Diabetes Hypertension Paternal Uncle Liver cancer Heart attack Maternal Aunt Stroke Family/Other Chronic mental illness Sister Uterine cancer Schizophrenia Brother Substance abuse Other Mental health disorder Social History Social History Housing: Apartment Alcohol intake: never Patient Tobacco Use Status: Never used Tobacco e-Cigarette/Vaping Use: Never Used Second Hand Smoke Exposure: No Advance Directives: No Advance Directives Information Provided: No Patient : No service: No Current occupational status: disabled Current occupational exposures/hazards: No Cognitive needs: No Hearing needs: No Vision needs: No Physical Exam Vital Signs: Vital Signs: Last Vital Signs Pulse 63 11/28/21 19:11 Resp 12 11/28/21 19:11 BP 119/75 11/28/21 19:11 Pulse Ox 100 11/28/21 19:11 BMI result Body Mass Index 26.9 VSS Appearance: Alert.? Oriented X3.? No acute distress.? Head: Normocephalic, atraumatic, no step-offs or deformities Eyes: Pupils equal, round and reactive to light.? ENT: Pharynx normal.? Neck: Normal inspection.? Neck supple.? CVS: Normal heart rate and rhythm.? Pulses normal.? Respiratory: No respiratory distress.? Breath sounds normal.? Abdomen: Soft and nontender.? Skin: Skin warm and dry.? Normal skin color.? Normal skin turgor.? Extremities: No lower extremity edema.? No calf ttp. 5/5 strength to bilateral upper and lower extremities Back: No midline tenderness, no C-spine tenderness, full range of motion, no CVA tenderness bilaterally Neuro: Oriented X 3.? No motor deficit.? No sensory deficit. CN 2-12 intact Course Reevaluation(s) Reevaluation #1: Called to speak to Dr. David Driscoll MD from [facility], I was unable to get a hold of him, I did leave a message with priority alert to him via department secretary. Patient tells me that she has an appointment tomorrow morning with him. Time: 17:37 Reevaluation #2: Patient now tells me that she has not been eating as much as she has been told, she tells me that sometimes it is uncomfortable for her to eat therefore she is not eating as much which could be why patient is experiencing these dizzy spells, and presyncopal episodes. Patient's head CT negative. CBC within normal limits. Chemistry with no acute electrolyte abnormalities requiring intervention. Patient's glucose on chemistry 88. Patient's point of care before her chemistry was 70. Will repeat. Pending repeat point of care an orthostatic vital signs. Spoke to about this case. Patient should be seen by her bariatric surgeon as this appears to be complication after the gastric sleeve. I will reach out to [facility] again for recommendations. And possible transfer to [facility] for her to be evaluated by her bariatric surgeon Time: 18:18 Reevaluation #3: Araceli reported to me that patient's point of care dropped from 88-54. Will continue to monitor. Time: 18:44 Additional Reevaluation(s): 1851 Gave patient sugar packets to bring her sugar up as she does not feel like she can eat. 1944 [facility] agrees patient should be evaluated by her bariatric surgeon, and evaluated for hypoglycemia as well as syncope. She will be evaluated by bariatric there. Patient will be transferred direct admit to [facility] accepting physician . MDM - Dizziness MDM Narrative Medical decision making narrative: 1651 Patient reports frequent hypoglycemia, syncope and presyncopal episodes x1 month status post gastric sleeve surgery PE benign Patient has normal cerebellar function unlikely posterior infarct. Unlikely ICH or stroke. Will rule out orthostatic hypotension. Plan- labs, orthostatics, urine, CT of the head Medical Records Attestation: I reviewed the patient's medical records. Lab Data Attestation: I reviewed the patient's lab results. Result diagrams: 11/28/21 14:25 11/28/21 14:25 Labs: Lab Results 11/28/21 11/28/21 11/28/21 Range/Units 12:50 14:25 14:25 WBC 4.8 (4.8-10.8) X10*3/uL RBC 4.35 (4.20-5.50) X10*6/uL Hgb 12.4 (12.0-16.0) g/dl Hct 38.3 (37.0-47.0) % MCV 88.0 (80.0-98.0) fL MCH 28.5 (27.0-33.0) pg MCHC 32.4 (31.0-35.0) g/dl RDW 12.9 (11.0-16.0) % Plt Count 248 (160-400) X10*3/uL MPV 11.4 (9.4-12.3) fL Immature Gran % (Auto) 0.2 (0.0-0.4) % Neut % (Auto) 49.7 (45-73) % Lymph % (Auto) 39.0 (20-40) % [place] % (Auto) 9.0 (2-11) % Eos % (Auto) 1.5 (0-4) % Baso % (Auto) 0.6 (0-2) % Lymph # (Auto) 1.9 (1.2-4.9) X10*3/uL [place] # (Auto) 0.4 (0.1-1.2) X10*3/uL Eos # (Auto) 0.1 (0.0-0.4) X10*3/uL Baso # (Auto) 0.0 (0.0-0.2) X10*3/uL Abs Immat Gran (auto) 0.01 (0.00-0.03) X10*3/uL Absolute Neuts (auto) 2.4 (2.0-8.3) x10*3/uL Absolute Nucleated RBC 0.000 (0.0-0.012) X10*3/uL Nucleated RBC % (auto) 0.0 (0.0-0.2) /100WBC Sodium 140 (135-145) mmol/L Potassium 3.9 (3.3-5.1) mmol/L Chloride 107 (96-108) mmol/L Carbon Dioxide 27 (22-29) mmol/L Anion Gap 10 L (12-20) BUN 9 (9-16) mg/dL Creatinine 0.72 (0.5-1.4) mg/dL Estim Creat Clear Calc 92.1 Estimated GFR > 60 POC Glucose 70 (60-115) mg/dL Random Glucose 88 (60-115) mg/dL Calcium 9.3 (8.4-10.2) mg/dL COVID-19 (ANGELA) (Negative) COVID-19 Clin Com 11/28/21 11/28/21 Range/Units 18:26 19:07 WBC (4.8-10.8) X10*3/uL RBC (4.20-5.50) X10*6/uL Hgb (12.0-16.0) g/dl Hct (37.0-47.0) % MCV (80.0-98.0) fL MCH (27.0-33.0) pg MCHC (31.0-35.0) g/dl RDW (11.0-16.0) % Plt Count (160-400) X10*3/uL MPV (9.4-12.3) fL Immature Gran % (Auto) (0.0-0.4) % Neut % (Auto) (45-73) % Lymph % (Auto) (20-40) % [place] % (Auto) (2-11) % Eos % (Auto) (0-4) % Baso % (Auto) (0-2) % Lymph # (Auto) (1.2-4.9) X10*3/uL [place] # (Auto) (0.1-1.2) X10*3/uL Eos # (Auto) (0.0-0.4) X10*3/uL Baso # (Auto) (0.0-0.2) X10*3/uL Abs Immat Gran (auto) (0.00-0.03) X10*3/uL Absolute Neuts (auto) (2.0-8.3) x10*3/uL Absolute Nucleated RBC (0.0-0.012) X10*3/uL Nucleated RBC % (auto) (0.0-0.2) /100WBC Sodium (135-145) mmol/L Potassium (3.3-5.1) mmol/L Chloride (96-108) mmol/L Carbon Dioxide (22-29) mmol/L Anion Gap (12-20) BUN (9-16) mg/dL Creatinine (0.5-1.4) mg/dL Estim Creat Clear Calc Estimated GFR POC Glucose 54 L* (60-115) mg/dL Random Glucose (60-115) mg/dL Calcium (8.4-10.2) mg/dL COVID-19 (ANGELA) Negative (Negative) COVID-19 Clin Com See Note Critical Care Time Critical Care Time Critical Care Time: No Discharge Plan Discharge Clinical Impression: Hypoglycemia, Syncope, Dizziness, H/O gastric sleeve Patient Disposition: [facility] Transfer Details: Transfer Direct Admit to [id number] Prescriptions: No Action acetaminophen 325 mg tablet 650 mg PO Q6H PRN (Reason: pain) Qty: 30 0RF sucralfate 1 gram tablet 1 g PO BID Qty: 180 3RF vitamin B complex [B Complex-Vitamin B12] Tablet 1 tab PO DAILY Qty: 30 6RF Rx Instructions: 1,000mcg dose daily atorvastatin 20 mg tablet 20 mg PO DAILY Qty: 90 1RF Linzess 290 mcg capsule 290 mcg PO DAILY 90 Days Qty: 90 1RF cholecalciferol (vitamin D3) 50 mcg (2,000 unit) tablet 50 mcg PO DAILY Qty: 90 3RF tramadol 50 mg tablet 50 mg PO Q6H PRN (Reason: pain) 30 Days Qty: 60 0RF (DME) blood pressure monitor [Blood Pressure Kit] Kit See Rx Instructions .Route Qty: 1 0RF Rx Instructions: As directed (DME) blood-glucose meter [FreeStyle Lite Meter] Kit See Rx Instructions .ROUTE .MEDSUPPLY Qty: 1 0RF Rx Instructions: As directed (DME) lancets [FreeStyle Lancets] 28 gauge misc See Rx Instructions .ROUTE .MEDSUPPLY Qty: 100 3RF Rx Instructions: As directed check BS QD (DME) FreeStyle Lite Strips Strip See Rx Instructions .ROUTE .MEDSUPPLY Qty: 100 3RF Rx Instructions: As directed check the BS QD cyclobenzaprine 5 mg tablet 5 mg PO TID PRN (Reason: muscle spasm) Qty: 10 0RF lidocaine [Lidoderm] 5 % adhesive patch,medicated 1 patch topical DAILY Qty: 15 0RF Rx Instructions: leave on most painful area for up to 12 hrs venlafaxine 150 mg capsule,extended release 24hr 1 cap PO DAILY 0RF quetiapine 50 mg tablet 1 tab PO 0RF ondansetron HCl [Zofran] 4 mg tablet 4 mg PO Q6H PRN (Reason: nausea and vomiting) Qty: 7 0RF zolpidem 10 mg tablet 10 mg PO BEDTIME PRN (Reason: Sleep) 0RF dicyclomine 20 mg tablet 20 mg PO BID 0RF sumatriptan succinate [Imitrex] 50 mg tablet 50 mg PO Q2-4H PRN (Reason: Migraine Headache) 0RF Rx Instructions: do not exceed 4 doses per 24 hrs quetiapine [Seroquel XR] 300 mg tablet extended release 24 hr 300 mg PO BEDTIME 0RF lactulose 10 gram/15 mL solution 10 g PO DAILY 0RF pantoprazole 40 mg tablet,delayed release (DR/EC) 40 mg PO DAILY Qty: 30 1RF ascorbate calcium (vitamin C) 500 mg tablet 500 mg PO DAILY 0RF ziprasidone HCl 20 mg capsule 20 mg PO BID 0RF quetiapine 400 mg tablet 400 mg PO BEDTIME 0RF acetaminophen 500 mg tablet 1,000 mg PO Q8H 0RF ursodiol 300 mg capsule 300 mg PO BID 0RF simethicone 80 mg tablet,chewable 80 mg PO Q6H PRN0RF clonazepam 1 mg tablet 1 mg PO TID PRN0RF amlodipine 5 mg tablet 5 mg PO DAILY Qty: 30 1RF
--- NOTE | 2021-11-28 16:52 | ECG_ITS ---
Test Reason : dizziness Blood Pressure : / mmHG Vent. Rate : 053 BPM Atrial Rate : 053 BPM P-R Int : 152 ms QRS Dur : 094 ms QT Int : 420 ms P-R-T Axes : 050 064 019 degrees QTc Int : 394 ms Sinus bradycardia Possible Left atrial enlargement Borderline ECG When compared with ECG of 18-MAY-2021 03:18, Vent. rate has decreased BY 35 BPM Referred By: Radha Canchola Electronically Signed By:DINA ESQUIVEL MD
[2021-11-28 18:34] LABS: Glucose, Whole Blood 54 mg/dL (60-115)
[2021-11-28 19:28] LABS: COVID-19 Test Negative (Negative); IDNOW Serial# 55D5AD1C
[2021-11-28 23:02] LABS: Glucose, Whole Blood 84 mg/dL (60-115)
== END 2021-11-28 22:52 | disposition short-term general hospital (02) ==
PROVIDERS: Physician Assistant; Emergency Provider Internal Medicine; PCP Internal Medicine
DX: R42 Dizziness and giddiness (principal); E11.649 Type 2 diabetes mellitus with hypoglycemia without coma; R55 Syncope and collapse; I10 Essential (primary) hypertension; Z20.822 Contact with and (suspected) exposure to COVID-19; Z98.84 Bariatric surgery status; Z79.899 Other long term (current) drug therapy
CPT/HCPCS: 36415; 70450; 80048; 82947; 85025; 87635; 93005; 99285

== ENCOUNTER 2021-12-28 15:05 | Emergency (ER) | payer OTHER, SELFPAY ==
--- NOTE | ~2021-12-28 | CT_ITS ---
EXAMINATION: CT ABDOMEN AND PELVIS WITH CONTRAST CLINICAL INFORMATION: Left flank pain. Left lower quadrant pain. COMPARISON: CT dated 12/07/2020 TECHNIQUE: Multidetector volumetric images were obtained from the superior aspect of the liver through the pubic symphysis following administration 75 mL of Omnipaque 350 intravenous contrast. Sagittal and coronal reformatted images were obtained on the technologist's workstation. Oral contrast: No This CT examination was performed using dose optimization techniques as appropriate, variously including the following: *Automated exposure control *Adjustment of mA and/or kV according to patient size (this includes techniques or standardized protocols for targeted exams where dose is matched to indication/reason for exam; i.e. extremities or head) *Use of iterative reconstruction technique DLP: 4:30 mGy-cm FINDINGS: LUNG BASES: The visualized lung bases are unremarkable. LIVER, GALLBLADDER, AND BILIARY TREE: The liver is normal in size, shape, and attenuation. There is a 9 mm low attenuation focus in hepatic segment 8 which is too small to characterize but statistically favored to correspond to a cyst. Multiple additional subcentimeter foci of hypoattenuation are noted and likely correspond to simple cysts. No new or suspicious lesions are identified. No recommend imaging follow-up. No biliary ductal dilatation is present. The gallbladder is unremarkable with no evidence of radiopaque gallstones, gallbladder wall thickening, or obvious pericholecystic inflammatory changes. PANCREAS: Unremarkable. SPLEEN: Unremarkable. ADRENAL GLANDS: Unremarkable. KIDNEYS AND URETERS: The kidneys are normal in size, shape, and attenuation. No hydronephrosis, hydroureter, or calculi seen. No perinephric stranding. BLADDER: Unremarkable. GASTROINTESTINAL TRACT: Status post gastric sleeve procedure with chain casey along the greater curvature of the stomach. Stomach, small bowel, and colon are normal in caliber. No bowel wall thickening. Appendix is normal. No intraperitoneal free air or free fluid. ABDOMINAL WALL: No significant hernia is appreciated. LYMPH NODES: Normal. VASCULAR: Unremarkable. PELVIC VISCERA: Uterus is surgically absent. A 2 cm follicular cyst is evident in the left ovary. Ovaries are normal in appearance for age. OSSEOUS STRUCTURES: Mild degenerative disc disease in the lower thoracic and lower lumbar spine with disc bulges at L4-L5 and L5-S1. No acute osseous findings. CT/CT abdomen pelvis w con IMPRESSION: No acute intra-abdominal or intrapelvic abnormalities to correlate with the patient's symptoms.
[2021-12-28 15:17] VITALS: BP 113/66; PULSE 79; RESP 18; TEMP 36.6; O2SAT 100; BMI 25.6
[2021-12-28 15:29] LABS: Glucose, Whole Blood 115 mg/dL (60-115)
[2021-12-28 15:55] LABS: MANUAL DIFF FLAG NO
[2021-12-28 15:58] LABS: Appearance Urine CLEAR; Color Urine YELLOW; Glucose Urine UA NEG (NEG); Leukocyte Esterase Urine NEG (NEG); Nitrite Urine NEG (NEG); Specific Gravity - Urine >= 1.030 (1.005-1.025); UACC Culture Trigger NO; Urine Blood NEG (NEG); Urine Ketones 15 MG/DL (NEG); Urine Protein 2+ MG/DL (NEG-TRACE)
[2021-12-28 15:59] LABS: Basophils Percent Auto 0.5 % (0-2); Eosinophils Absolute Auto 0.1 X10*3/uL (0.0-0.4); Eosinophils Percent Auto 1.4 % (0-4); Hematocrit 36.6 % (37.0-47.0); Hemoglobin 11.8 g/dl (12.0-16.0); Imm Gran Abs Auto 0.02 X10*3/uL (0.00-0.03); Imm Gran Pct Auto 0.5 % (0.0-0.4); Lymphocytes Absolute Auto 1.2 X10*3/uL (1.2-4.9); Lymphocytes Percent Auto 33.2 % (20-40); Mean Corpuscular HGB Conc 32.2 g/dl (31.0-35.0); Mean Corpuscular Volume 86.9 fL (80.0-98.0); Mean Platelet Volume 11.1 fL (9.4-12.3); Monocytes Absolute Auto 0.5 X10*3/uL (0.1-1.2); Monocytes Percent Auto 13.9 % (2-11); Neutrophils Absolute Auto 1.9 x10*3/uL (2.0-8.3); Neutrophils Percent Auto 50.5 % (45-73); Platelet Count 257 X10*3/uL (160-400); Red Blood Count 4.21 X10*6/uL (4.20-5.50); Red Cell Distribution Width 13.8 % (11.0-16.0); White Blood Count 3.7 X10*3/uL (4.8-10.8)
[2021-12-28 16:16] LABS: Bacteria Urine 3+ /LPF; Mucus Urine 2+ /LPF; Squamous Epithelial Cell Urine 1+ /LPF
[2021-12-28 16:18] LABS: Alanine Aminotransferase 11 U/L (0-31); Albumin Level 4.2 g/dL (3.5-5.0); Alkaline Phosphatase 53 U/L (39-117); Anion Gap 11 (12-20); Aspartate Amino Transferase 12 U/L (5-31); Bilirubin Direct < 0.2 mg/dL (0.0-0.5); Bilirubin Total 0.3 mg/dL (0.0-1.0); Blood Urea Nitrogen 13 mg/dL (9-16); Calcium 9.1 mg/dL (8.4-10.2); Carbon Dioxide 25 mmol/L (22-29); Chloride 108 mmol/L (96-108); Creatinine Clr Calc Pharmacy 87.6; Estimated Glomerular Filt Rate > 60; Glucose Random 113 mg/dL (60-115); Potassium 3.3 mmol/L (3.3-5.1); Sodium 141 mmol/L (135-145); Total Protein 6.5 g/dL (6.5-8.0)
[2021-12-28 16:21] LABS: IDNOW Serial# 9DD0AD1C; Influenza A Negative (Negative); Influenza B2 Negative (Negative)
[2021-12-28 16:22] LABS: COVID-19 Test Negative (Negative)
--- NOTE | 2021-12-28 19:58 | ED_ITS ---
HPI - General Adult General Chief complaint: Abdominal Pain Stated complaint: Left side kidney pain Time Seen by Provider: 12/28/21 19:41 Source: patient History of Present Illness HPI narrative: This is a 41-year-old female with history of a gastric sleeve placed in September, adrenal insufficiency, diverticular disease, who complains of pain in her left lower abdomen and left flank for about a week. She denies any pain in her mid or upper abdomen, states that her breathing has been good with her gastric sleeve. She has felt like she has had a fever at times. She has felt like she has not been able to eat much food or fluids in the last few days. She has noted bright red blood with her bowel movement a few times. She denies any dysuria or urinary frequency. She denies any cough, shortness of breath, chest pain. Related Data Home Medications Medication Instructions Recorded Confirmed dicyclomine 20 mg tablet 20 mg PO BID 08/27/20 12/15/21 lactulose 10 gram/15 mL oral 10 g PO DAILY 08/27/20 12/15/21 solution quetiapine 300 mg tablet,extended 300 mg PO BEDTIME 08/27/20 12/15/21 release 24 hr (Seroquel XR) sumatriptan succinate 50 mg tablet 50 mg PO Q2-4H PRN 08/27/20 12/15/21 (Imitrex) zolpidem 10 mg tablet 10 mg PO BEDTIME PRN 08/27/20 12/15/21 ascorbate calcium (vitamin C) 500 500 mg PO DAILY 09/08/21 12/15/21 mg tablet quetiapine 50 mg tablet 1 tab PO 09/22/21 12/15/21 venlafaxine 150 mg 1 cap PO DAILY 09/22/21 12/15/21 capsule,extended release 24 hr clonazepam 1 mg tablet 1 mg PO TID PRN 10/26/21 12/15/21 quetiapine 400 mg tablet 400 mg PO BEDTIME 10/26/21 12/15/21 simethicone 80 mg chewable tablet 80 mg PO Q6H PRN 10/26/21 12/15/21 ursodiol 300 mg capsule 300 mg PO BID 10/26/21 12/15/21 ziprasidone HCl 20 mg capsule 20 mg PO BID 10/26/21 12/15/21 Previous Rx's Medication Instructions Recorded pantoprazole 40 mg tablet,delayed 40 mg PO DAILY #30 tab 09/29/20 release cyclobenzaprine 5 mg tablet 5 mg PO TID PRN #10 tab 02/18/21 lidocaine 5 % topical patch 1 patch TOPICAL DAILY #15 ea 04/29/21 (Lidoderm) ondansetron HCl 4 mg tablet 4 mg PO Q6H PRN #7 tab 05/18/21 (Zofran) sucralfate 1 gram tablet 1 g PO BID #180 tab 05/23/21 vitamin B complex (B 1 tab PO DAILY #30 tab 07/13/21 Complex-Vitamin B12) blood pressure monitor (Blood #1 ea 10/31/21 Pressure Kit) blood sugar diagnostic (FreeStyle #100 ea 10/31/21 Lite Strips) blood-glucose meter (FreeStyle #1 ea 10/31/21 Lite Meter) lancets 28 gauge (FreeStyle #100 ea 10/31/21 Lancets) famotidine 20 mg tablet 20 mg PO BEDTIME #30 tab 12/15/21 (Zantac-360 (famotidine)) tramadol 50 mg tablet 50 mg PO Q6H PRN 30 Days #60 tab 12/15/21 Allergies Allergy/AdvReac Type Severity Reaction Status Date / Time tomato [TOMATO] Allergy Mild HIVES Verified 12/15/21 10:39 DIFFICULTY BREATHING hydrocodone [HYDROCODONE] Allergy Unknown RASH, Verified 12/15/21 10:39 AIRWAY CLOSES ibuprofen [From MOTRIN] Allergy Unknown STOMACH Verified 12/15/21 10:39 UPSET, vomiting trazodone [TRAZODONE] Allergy Unknown UNKNOWN, Verified 12/15/21 10:39 stomach upset black pepper [BLACK PEPPER] AdvReac Severe DIFFICULTY Verified 12/15/21 10:39 BREATHING, hives Review of Systems Review of Systems: Yes all other systems are reviewed and are negative Constitutional: Constitutional: Reports as per HPI and Reports fever(s) Eyes: Eyes: Reports as per HPI and Reports no additional eye complaints ENT: Reports system reviewed and no additional complaints, except as documented, Reports as per HPI, Denies nasal congestion, Denies nasal discharge and Denies sore throat Cardiovascular: Cardiovascular: Reports as per HPI, Denies chest pain and Denies dyspnea Respiratory: Respiratory: Reports as per HPI, Denies cough and Denies dyspnea Gastrointestinal: Gastrointestinal: Reports as per HPI, Reports abdominal pain, Denies diarrhea and Denies vomiting Genitourinary: Genitourinary: Reports as per HPI, Denies hematuria, Denies urinary frequency and Denies dysuria Comments: Left flank pain Musculoskeletal: Musculoskeletal: Reports no additional musculoskeletal complaints and Denies numbness Integumentary/Breasts: Skin/Breast: Reports as per HPI and Denies rash Neurologic: Reports as per HPI, Denies focal weakness and Denies numbness Psychiatric: Psychiatric: Reports no additional psychiatric complaints and Reports as per HPI Endocrine: Endocrine: Reports no additional endocrine complaints and Reports as per HPI Hematologic/Lymphatic: Hematologic/Lymphatic: Reports no additional hematologic/lymphatic complaints, Reports as per HPI and Reports other (No peripheral edema) [facility] Past Medical History 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 Diverticulosis GERD (gastroesophageal reflux disease) History of bipolar disorder History of schizophrenia Hypercholesterolemia Hypertension Insomnia Obesity (BMI 30-39.9) Renal calculi Spondylosis of lumbar spine Type 2 diabetes mellitus with hyperglycemia Vitamin D deficiency Surgical History H/O: hysterectomy History of tubal ligation Family History Family History Father Medical history unknown Mother Medical history unknown Paternal Aunt Uterine cancer Diabetes Hypertension Paternal Uncle Liver cancer Heart attack Maternal Aunt Stroke Family/Other Chronic mental illness Sister Uterine cancer Schizophrenia Brother Substance abuse Other Mental health disorder Social History Social History Housing: Apartment Alcohol intake: never Patient Tobacco Use Status: Never used Tobacco e-Cigarette/Vaping Use: Never Used Second Hand Smoke Exposure: No Use of substances other than those prescribed or required for medical reasons: No Advance Directives: No Advance Directives Information Provided: No Patient : No service: No Current occupational status: disabled Current occupational exposures/hazards: No Cognitive needs: No Hearing needs: No Vision needs: No Physical Exam ED Vital Signs: Vital Signs - 24 hr 12/28/21 15:17 12/28/21 20:00 Temperature 97.8 F Pulse Rate 79 63 Respiratory Rate 18 18 Blood Pressure 113/66 111/52 L Pulse Oximetry 100 BMI result Body Mass Index 25.6 Const Other: Patient in no distress, appears well overall, and was set up on the gurney without apparent discomfort. General: no acute distress Orientation/consciousness: patient oriented x3 HENMT Head: Yes normal to inspection General nose exam: Normal external nose present Mouth: moist mucous membranes Throat: Yes posterior oropharynx normal, Yes tonsils normal and Yes uvula midline Eyes Eyelids: Yes eyelids normal Conjunctivae: conjunctivae normal Pupils: Equal, round and reactive pupils present Neck Neck: Yes supple Resp Effort & Inspection: normal respiratory effort Auscultation: clear to auscultation bilaterally Cardio Rate: regular rate Rhythm: regular rhythm Heart sounds: S1 normal heart sound present, S2 normal heart sound present, no gallops, no murmurs and no rubs GI Inspection: No distended Palpation (GI): Soft to palpation and Tenderness to palpation present (GI) in the LLQ (Mild) Auscultation: normal bowel sounds Skin General skin exam: other (Warm and dry) Neuro General: patient oriented x3 and CN's II-XI intact bilaterally Cranial nerves: Yes Equal, round and reactive pupils present Extrem General: Yes no pedal edema Psych Affect: normal affect Attitude: cooperative Medical Decision Making MDM Narrative Medical decision making narrative: Patient with a history of gastric sleeve done earlier this year, also generalized anxiety disorder, among other problems, complaint of left flank and left lower quadrant abdominal pain. Labs normal, including urinalysis. CT of the abdomen pelvis showed no acute pathology. Patient may have component of anxiety. Patient is safe for outpatient follow-up. Lab Data Lab results reviewed: Yes I reviewed the patient's lab results. Result diagrams: 12/28/21 15:51 12/28/21 15:51 Labs: Lab Results 12/28/21 12/28/21 12/28/21 Range/Units 15:25 15:49 15:49 WBC (4.8-10.8) X10*3/uL RBC (4.20-5.50) X10*6/uL Hgb (12.0-16.0) g/dl Hct (37.0-47.0) % MCV (80.0-98.0) fL MCH (27.0-33.0) pg MCHC (31.0-35.0) g/dl RDW (11.0-16.0) % Plt Count (160-400) X10*3/uL MPV (9.4-12.3) fL Immature Gran % (Auto) (0.0-0.4) % Neut % (Auto) (45-73) % Lymph % (Auto) (20-40) % [place] % (Auto) (2-11) % Eos % (Auto) (0-4) % Baso % (Auto) (0-2) % Lymph # (Auto) (1.2-4.9) X10*3/uL [place] # (Auto) (0.1-1.2) X10*3/uL Eos # (Auto) (0.0-0.4) X10*3/uL Baso # (Auto) (0.0-0.2) X10*3/uL Abs Immat Gran (auto) (0.00-0.03) X10*3/uL Absolute Neuts (auto) (2.0-8.3) x10*3/uL Absolute Nucleated RBC (0.0-0.012) X10*3/uL Nucleated RBC % (auto) (0.0-0.2) /100WBC Sodium (135-145) mmol/L Potassium (3.3-5.1) mmol/L Chloride (96-108) mmol/L Carbon Dioxide (22-29) mmol/L Anion Gap (12-20) BUN (9-16) mg/dL Creatinine (0.5-1.4) mg/dL Estim Creat Clear Calc Estimated GFR POC Glucose 115 (60-115) mg/dL Random Glucose (60-115) mg/dL Calcium (8.4-10.2) mg/dL Total Bilirubin (0.0-1.0) mg/dL Direct Bilirubin (0.0-0.5) mg/dL AST (5-31) U/L ALT (0-31) U/L Alkaline Phosphatase (39-117) U/L Total Protein (6.5-8.0) g/dL Albumin (3.5-5.0) g/dL Urine Color Urine Appearance Urine pH (5.0-8.0) Ur Specific [place] (1.005-1.025) Urine Protein (NEG-TRACE) MG/DL Urine Glucose (UA) (NEG) MG/DL Urine Ketones (NEG) MG/DL Urine Blood (NEG) Urine Nitrite (NEG) Ur Leukocyte Esterase (NEG) Urine RBC (0) /HPF Urine WBC (0-4) /HPF Ur Squamous Epith Cells /LPF Urine Bacteria /LPF Urine Mucus /LPF COVID-19 (ANGELA) Negative (Negative) COVID-19 Clin Com See Note Influenza Type A (BRIDGER) Negative (Negative) Influenza Type B (BRIDGER) Negative (Negative) Influenza A & B Note See Note 12/28/21 12/28/21 12/28/21 Range/Units 15:49 15:51 15:51 WBC 3.7 L (4.8-10.8) X10*3/uL RBC 4.21 (4.20-5.50) X10*6/uL Hgb 11.8 L (12.0-16.0) g/dl Hct 36.6 L (37.0-47.0) % MCV 86.9 (80.0-98.0) fL MCH 28.0 (27.0-33.0) pg MCHC 32.2 (31.0-35.0) g/dl RDW 13.8 (11.0-16.0) % Plt Count 257 (160-400) X10*3/uL MPV 11.1 (9.4-12.3) fL Immature Gran % (Auto) 0.5 H (0.0-0.4) % Neut % (Auto) 50.5 (45-73) % Lymph % (Auto) 33.2 (20-40) % [place] % (Auto) 13.9 H (2-11) % Eos % (Auto) 1.4 (0-4) % Baso % (Auto) 0.5 (0-2) % Lymph # (Auto) 1.2 (1.2-4.9) X10*3/uL [place] # (Auto) 0.5 (0.1-1.2) X10*3/uL Eos # (Auto) 0.1 (0.0-0.4) X10*3/uL Baso # (Auto) 0.0 (0.0-0.2) X10*3/uL Abs Immat Gran (auto) 0.02 (0.00-0.03) X10*3/uL Absolute Neuts (auto) 1.9 L (2.0-8.3) x10*3/uL Absolute Nucleated RBC 0.000 (0.0-0.012) X10*3/uL Nucleated RBC % (auto) 0.0 (0.0-0.2) /100WBC Sodium 141 (135-145) mmol/L Potassium 3.3 (3.3-5.1) mmol/L Chloride 108 (96-108) mmol/L Carbon Dioxide 25 (22-29) mmol/L Anion Gap 11 L (12-20) BUN 13 (9-16) mg/dL Creatinine 0.74 (0.5-1.4) mg/dL Estim Creat Clear Calc 87.6 Estimated GFR > 60 POC Glucose (60-115) mg/dL Random Glucose 113 (60-115) mg/dL Calcium 9.1 (8.4-10.2) mg/dL Total Bilirubin 0.3 (0.0-1.0) mg/dL Direct Bilirubin < 0.2 (0.0-0.5) mg/dL AST 12 (5-31) U/L ALT 11 (0-31) U/L Alkaline Phosphatase 53 (39-117) U/L Total Protein 6.5 (6.5-8.0) g/dL Albumin 4.2 (3.5-5.0) g/dL Urine Color YELLOW Urine Appearance CLEAR Urine pH 6.0 (5.0-8.0) Ur Specific [place] >= 1.030 H (1.005-1.025) Urine Protein 2+ H (NEG-TRACE) MG/DL Urine Glucose (UA) NEG (NEG) MG/DL Urine Ketones 15 (NEG) MG/DL Urine Blood NEG (NEG) Urine Nitrite NEG (NEG) Ur Leukocyte Esterase NEG (NEG) Urine RBC 1-4 (0) /HPF Urine WBC 1-4 (0-4) /HPF Ur Squamous Epith Cells 1+ /LPF Urine Bacteria 3+ /LPF Urine Mucus 2+ /LPF COVID-19 (ANGELA) (Negative) COVID-19 Clin Com Influenza Type A (BRIDGER) (Negative) Influenza Type B (BRIDGER) (Negative) Influenza A & B Note Imaging Data CT scan - abdomen: Radiologist's impression: IMPRESSION: No acute intra-abdominal or intrapelvic abnormalities to correlate with the patient's symptoms.? ? Discharge Plan Discharge Clinical Impression: Flank pain, Abdominal pain Patient Disposition: Home, Self-Care Instructions: Abdominal Pain (ED), Flank Pain (ED) Additional Instructions: Use acetaminophen for pain. Follow-up with your primary care physician. Retur n for any new or worsened symptoms Prescriptions: No Action sucralfate 1 gram tablet 1 g PO BID Qty: 180 3RF vitamin B complex [B Complex-Vitamin B12] Tablet 1 tab PO DAILY Qty: 30 6RF Rx Instructions: 1,000mcg dose daily (DME) blood pressure monitor [Blood Pressure Kit] Kit See Rx Instructions .Route Qty: 1 0RF Rx Instructions: As directed (DME) blood-glucose meter [FreeStyle Lite Meter] Kit See Rx Instructions .ROUTE .MEDSUPPLY Qty: 1 0RF Rx Instructions: As directed (DME) lancets [FreeStyle Lancets] 28 gauge misc See Rx Instructions .ROUTE .MEDSUPPLY Qty: 100 3RF Rx Instructions: As directed check BS QD (DME) FreeStyle Lite Strips Strip See Rx Instructions .ROUTE .MEDSUPPLY Qty: 100 3RF Rx Instructions: As directed check the BS QD cyclobenzaprine 5 mg tablet 5 mg PO TID PRN (Reason: muscle spasm) Qty: 10 0RF lidocaine [Lidoderm] 5 % adhesive patch,medicated 1 patch topical DAILY Qty: 15 0RF Rx Instructions: leave on most painful area for up to 12 hrs venlafaxine 150 mg capsule,extended release 24hr 1 cap PO DAILY 0RF quetiapine 50 mg tablet 1 tab PO 0RF ondansetron HCl [Zofran] 4 mg tablet 4 mg PO Q6H PRN (Reason: nausea and vomiting) Qty: 7 0RF zolpidem 10 mg tablet 10 mg PO BEDTIME PRN (Reason: Sleep) 0RF dicyclomine 20 mg tablet 20 mg PO BID 0RF sumatriptan succinate [Imitrex] 50 mg tablet 50 mg PO Q2-4H PRN (Reason: Migraine Headache) 0RF Rx Instructions: do not exceed 4 doses per 24 hrs quetiapine [Seroquel XR] 300 mg tablet extended release 24 hr 300 mg PO BEDTIME 0RF lactulose 10 gram/15 mL solution 10 g PO DAILY 0RF pantoprazole 40 mg tablet,delayed release (DR/EC) 40 mg PO DAILY Qty: 30 1RF ascorbate calcium (vitamin C) 500 mg tablet 500 mg PO DAILY 0RF famotidine [Zantac-360 (famotidine)] 20 mg tablet 20 mg PO BEDTIME Qty: 30 0RF tramadol 50 mg tablet 50 mg PO Q6H PRN (Reason: pain) 30 Days Qty: 60 0RF ziprasidone HCl 20 mg capsule 20 mg PO BID 0RF quetiapine 400 mg tablet 400 mg PO BEDTIME 0RF ursodiol 300 mg capsule 300 mg PO BID 0RF simethicone 80 mg tablet,chewable 80 mg PO Q6H PRN0RF clonazepam 1 mg tablet 1 mg PO TID PRN0RF Interventions: ED Discharge Assessment Last Done: 12/28/21 22:27 Discharge Date/Time: 12/28/21 22:28
[2021-12-28 20:00] VITALS: BP 111/52; PULSE 63; RESP 18
[2021-12-28] MEDS: Acetaminophen 325 MG TABLET 650 MG PO (20:15)
[2021-12-28] MEDS: 0.9 % Sodium Chloride 1,000 ML 999 ML IV (20:23)
--- NOTE | 2021-12-28 20:25 | PC.NURSE ---
pt a&ox3, vss, c/o abd left-sided flank pain for ~ 5 days, nausea/vomiting/diarrhea. 20G IV placed right AC, flds started, medicated per provider order. pending CT.
== END 2021-12-28 22:28 | disposition home or self-care (01) ==
PROVIDERS: Emergency Provider Emergency Medicine; PCP Internal Medicine
DX: R10.32 Left lower quadrant pain (principal); E11.9 Type 2 diabetes mellitus without complications; I10 Essential (primary) hypertension; F41.1 Generalized anxiety disorder; Z98.84 Bariatric surgery status; Z20.822 Contact with and (suspected) exposure to COVID-19
CPT/HCPCS: 74177; 80053; 81001; 81003; 82248; 82947; 85025; 87502; 87635; 96360; 99284; Q9967

== ENCOUNTER 2022-01-02 11:53 | Emergency (ER) | payer OTHER, SELFPAY ==
[2022-01-02 12:07] VITALS: BP 127/76; PULSE 69; RESP 20; TEMP 36.8; O2SAT 100; BMI 26.5
--- NOTE | 2022-01-02 13:11 | ED.GENADULT ---
HPI - General Adult General Chief complaint: Abdominal Pain Stated complaint: KIDNEY PAIN, DIXXY Time Seen by Provider: 01/02/22 13:11 Source: patient Mode of arrival: ambulatory Limitations: no limitations History of Present Illness HPI narrative: Patient is a 41 year old female presenting to the emergency department today with right sided back pain. Patient states that she has been having trouble urinating at home and is having right low back pain. Patient denies any dizziness, lightheadedness, abdominal pain, nausea, vomiting, fever, chills, blurry vision, double vision, loss of vision, chest pain, difficulty breathing, shortness of breath, back pain, night sweats, pain with urination, increased urinary frequency, increased urinary urgency, blood in her urine or stool, syncope or a near syncopal episode, recent trauma or falls, bowel incontinence, bladder incontinence, bowel retention, or any other complaints at this time. Onset (ago): day(s) Location: back Radiation: non-radiation Severity: mild Severity scale (1-10): 2 Quality: dull Pain Consistency: constant Relieving factors: none Exacerbating factors: none Associated symptoms: denies other symptoms Treatments prior to arrival: none Related Data Home Medications Medication Instructions Recorded Confirmed dicyclomine 20 mg tablet 20 mg PO BID 08/27/20 12/15/21 lactulose 10 gram/15 mL oral 10 g PO DAILY 08/27/20 12/15/21 solution quetiapine 300 mg tablet,extended 300 mg PO BEDTIME 08/27/20 12/15/21 release 24 hr (Seroquel XR) sumatriptan succinate 50 mg tablet 50 mg PO Q2-4H PRN 08/27/20 12/15/21 (Imitrex) zolpidem 10 mg tablet 10 mg PO BEDTIME PRN 08/27/20 12/15/21 ascorbate calcium (vitamin C) 500 500 mg PO DAILY 09/08/21 12/15/21 mg tablet quetiapine 50 mg tablet 1 tab PO 09/22/21 12/15/21 venlafaxine 150 mg 1 cap PO DAILY 09/22/21 12/15/21 capsule,extended release 24 hr clonazepam 1 mg tablet 1 mg PO TID PRN 10/26/21 12/15/21 quetiapine 400 mg tablet 400 mg PO BEDTIME 10/26/21 12/15/21 simethicone 80 mg chewable tablet 80 mg PO Q6H PRN 10/26/21 12/15/21 ursodiol 300 mg capsule 300 mg PO BID 10/26/21 12/15/21 ziprasidone HCl 20 mg capsule 20 mg PO BID 10/26/21 12/15/21 Previous Rx's Medication Instructions Recorded pantoprazole 40 mg tablet,delayed 40 mg PO DAILY #30 tab 09/29/20 release cyclobenzaprine 5 mg tablet 5 mg PO TID PRN #10 tab 02/18/21 lidocaine 5 % topical patch 1 patch TOPICAL DAILY #15 ea 04/29/21 (Lidoderm) ondansetron HCl 4 mg tablet 4 mg PO Q6H PRN #7 tab 05/18/21 (Zofran) sucralfate 1 gram tablet 1 g PO BID #180 tab 05/23/21 vitamin B complex (B 1 tab PO DAILY #30 tab 07/13/21 Complex-Vitamin B12) blood pressure monitor (Blood #1 ea 10/31/21 Pressure Kit) blood sugar diagnostic (FreeStyle #100 ea 10/31/21 Lite Strips) blood-glucose meter (FreeStyle #1 ea 10/31/21 Lite Meter) lancets 28 gauge (FreeStyle #100 ea 10/31/21 Lancets) famotidine 20 mg tablet 20 mg PO BEDTIME #30 tab 12/15/21 (Zantac-360 (famotidine)) tramadol 50 mg tablet 50 mg PO Q6H PRN 30 Days #60 tab 12/15/21 Allergies Allergy/AdvReac Type Severity Reaction Status Date / Time tomato [TOMATO] Allergy Mild HIVES Verified 12/15/21 10:39 DIFFICULTY BREATHING hydrocodone [HYDROCODONE] Allergy Unknown RASH, Verified 12/15/21 10:39 AIRWAY CLOSES ibuprofen [From MOTRIN] Allergy Unknown STOMACH Verified 12/15/21 10:39 UPSET, vomiting trazodone [TRAZODONE] Allergy Unknown UNKNOWN, Verified 12/15/21 10:39 stomach upset black pepper [BLACK PEPPER] AdvReac Severe DIFFICULTY Verified 12/15/21 10:39 BREATHING, hives Review of Systems Constitutional: Constitutional: Reports no additional constitutional complaints, Denies chills, Denies fever(s) and Denies night sweats Eyes: Eyes: Reports no additional eye complaints, Denies blurry vision, Denies change in vision, Denies diplopia, Denies eye discharge, Denies loss of vision and Denies eye pain ENT: Denies dizziness Cardiovascular: Cardiovascular: Reports no additional cardiovascular complaints, Denies chest pain, Denies lightheadedness, Denies Loss of Consciousness and Denies dyspnea Respiratory: Respiratory: Reports no additional respiratory complaints and Denies dyspnea Gastrointestinal: Gastrointestinal: Reports no additional gastrointestinal complaints, Denies abdominal pain, Denies melena, Denies hematochezia, Denies change in bowel habits and Denies change in stool character Genitourinary: Genitourinary: Denies hematuria, Denies dysuria, Denies urinary incontinence, Denies urinary hesitancy and Denies urinary urgency Musculoskeletal: Musculoskeletal: Reports no additional musculoskeletal complaints, Reports back pain, Denies numbness and Denies tingling Neurologic: Denies dizziness, Denies loss of vision, Denies numbness and Denies tingling Psychiatric: Psychiatric: Reports no additional psychiatric complaints Endocrine: Endocrine: Reports no additional endocrine complaints Hematologic/Lymphatic: Hematologic/Lymphatic: Reports no additional hematologic/lymphatic complaints Allergic/Immunologic: Allergic/Immunologic: Reports no additional allergic/immunologic complaints [facility] Past Medical History Attestation statement: The following information was validated with the patient. 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 Diverticulosis GERD (gastroesophageal reflux disease) History of bipolar disorder History of schizophrenia Hypercholesterolemia Hypertension Insomnia Renal calculi Spondylosis of lumbar spine Type 2 diabetes mellitus with hyperglycemia Vitamin D deficiency Surgical History H/O: hysterectomy History of tubal ligation Family History Family History Father Medical history unknown Mother Medical history unknown Paternal Aunt Uterine cancer Diabetes Hypertension Paternal Uncle Liver cancer Heart attack Maternal Aunt Stroke Family/Other Chronic mental illness Sister Uterine cancer Schizophrenia Brother Substance abuse Other Mental health disorder Social History Social History Housing: Apartment Alcohol intake: never Patient Tobacco Use Status: Never used Tobacco e-Cigarette/Vaping Use: Never Used Second Hand Smoke Exposure: No Advance Directives: Yes Advance Directives Information Provided: Yes Advance Directives on File: No service: No Current occupational status: disabled Current occupational exposures/hazards: No Cognitive needs: No Hearing needs: No Vision needs: No Physical Exam ED Vital Signs: Vital Signs - 24 hr 01/02/22 12:07 01/02/22 14:32 Temperature 98.2 F Pulse Rate 69 57 Respiratory Rate 20 16 Blood Pressure 127/76 117/73 Pulse Oximetry 100 96 BMI result Body Mass Index 26.5 Const General: cooperative, no acute distress, alert and awake Nutritional Appearance: well nourished Orientation/consciousness: patient oriented x3 Limitations: no limitations HENMT Head: Yes normal to inspection and Yes atraumatic Ears: hearing grossly normal bilaterally and external ears normal General nose exam: Normal external nose present, no nasal discharge noted and no epistaxis Face and sinus: Yes normal facial exam, No abrasion and No laceration Mouth: Normal oral and palatal mucosa present, no drooling and no muffled voice Eyes General: appearance normal, both eyes and all related structures Periorbital: periorbital findings normal Eyelids: Yes eyelids normal Conjunctivae: conjunctivae normal Pupils: Equal, round and reactive pupils present EOM: EOMs intact bilaterally Neck Neck: Yes normal visual inspection, Yes full ROM and Yes no lymphadenopathy Chest Chest palpation & inspection: normal inspection of the chest Resp Effort & Inspection: normal respiratory effort and able to speak in complete sentences Auscultation: clear to auscultation bilaterally Cardio Rate: regular rate Rhythm: regular rhythm GI Inspection: Yes normal to inspection Palpation (GI): Soft to palpation, not firm, nontender, no guarding and not rigid General: Yes no CVA tenderness Back/Spine/Pelvis Back: no CVA tenderness Cervical Spine: normal cervical lordosis Thoracic/Lumbar Spine: thoracic and lumbar spine normal to inspection and thoraco-lumbar ROM normal Pelvis: no pain with anterior-posterior compression Neuro General: patient oriented x3 and moves all extremities Cranial nerves: Yes Equal, round and reactive pupils present Cognition (Neuro): normal cognition Motor exam (neuro): 5/5 motor strength present throughout Sensory Exam: Normal double simultaneous stimulation for sensation Coordination: [id number] test normal Extrem General: Yes normal to inspection, Yes full ROM and Yes capillary refill normal Psych Appearance: grossly normal Mental Status: mental status grossly normal Affect: normal affect Attitude: cooperative Thought process: Normal thought process present Thought content: Normal thought content present Insight: Good insight present (Psych) Medical Decision Making MDM Narrative Medical decision making narrative: Patient is a 41 year old female presenting to the emergency department today with right low back pain. Patient's physical exam was unremarkable. Patient's blood work was unremarkable. Patient's urine showed no acute process. I explained my physical exam findings as well as all test results to the patient. I answered all questions asked by the patient. Patient received PO Oxycodone which she stated helped her symptoms significantly. I stressed the importance of the patient taking her medication as prescribed. I stressed the importance of the patient following up with her primary care provider. I stressed the importance of the patient returning to the emergency department immediately if her symptoms were to worsen or if she were to develop any dizziness, shortness of breath, difficulty breathing, chest pain, blurry vision, loss of vision, nausea, vomiting, abdominal pain, fever, chills, back pain, or any other complaints. Patient verbalized agreement and understanding with this treatment plan and discharge. Differential Diagnosis Differential Diagnosis: abdominal pain, UTI, pyelonephritis Medical Records Medical records reviewed: Yes I reviewed the patient's medical records. Lab Data Lab results reviewed: Yes I reviewed the patient's lab results. Result diagrams: 01/02/22 13:48 01/02/22 13:48 Labs: Lab Results 01/02/22 01/02/22 01/02/22 Range/Units 13:48 13:48 15:27 WBC 4.9 (4.8-10.8) X10*3/uL RBC 4.28 (4.20-5.50) X10*6/uL Hgb 12.0 (12.0-16.0) g/dl Hct 37.0 (37.0-47.0) % MCV 86.4 (80.0-98.0) fL MCH 28.0 (27.0-33.0) pg MCHC 32.4 (31.0-35.0) g/dl RDW 13.8 (11.0-16.0) % Plt Count 277 (160-400) X10*3/uL MPV 10.9 (9.4-12.3) fL Immature Gran % (Auto) 0.4 (0.0-0.4) % Neut % (Auto) 41.4 L (45-73) % Lymph % (Auto) 46.8 H (20-40) % [place] % (Auto) 9.4 (2-11) % Eos % (Auto) 1.4 (0-4) % Baso % (Auto) 0.6 (0-2) % Lymph # (Auto) 2.3 (1.2-4.9) X10*3/uL [place] # (Auto) 0.5 (0.1-1.2) X10*3/uL Eos # (Auto) 0.1 (0.0-0.4) X10*3/uL Baso # (Auto) 0.0 (0.0-0.2) X10*3/uL Abs Immat Gran (auto) 0.02 (0.00-0.03) X10*3/uL Absolute Neuts (auto) 2.0 (2.0-8.3) x10*3/uL Absolute Nucleated RBC 0.000 (0.0-0.012) X10*3/uL Nucleated RBC % (auto) 0.0 (0.0-0.2) /100WBC Smear Tech's Comments VERIFIED Sodium 141 (135-145) mmol/L Potassium 3.7 (3.3-5.1) mmol/L Chloride 106 (96-108) mmol/L Carbon Dioxide 28 (22-29) mmol/L Anion Gap 11 L (12-20) BUN 9 (9-16) mg/dL Creatinine 0.67 (0.5-1.4) mg/dL Estim Creat Clear Calc 98.3 Estimated GFR > 60 Random Glucose 90 (60-115) mg/dL Calcium 9.3 (8.4-10.2) mg/dL Total Bilirubin 0.4 (0.0-1.0) mg/dL AST 11 (5-31) U/L ALT 10 (0-31) U/L Alkaline Phosphatase 46 (39-117) U/L Total Protein 6.6 (6.5-8.0) g/dL Albumin 4.3 (3.5-5.0) g/dL Urine Color YELLOW Urine Appearance CLEAR Urine pH 8.0 (5.0-8.0) Ur Specific [place] 1.015 (1.005-1.025) Urine Protein TRACE (NEG-TRACE) MG/DL Urine Glucose (UA) NEG (NEG) MG/DL Urine Ketones NEG (NEG) MG/DL Urine Blood NEG (NEG) Urine Nitrite NEG (NEG) Ur Leukocyte Esterase NEG (NEG) Discharge Plan Discharge Clinical Impression: Low back pain Patient Disposition: Home, Self-Care Instructions: Acute Low Back Pain (ED) Additional Instructions: Follow up with your primary care provider. Return to the emergency department immediately if your symptoms worsen or if you develop any dizziness, shortness of breath, difficulty breathing, chest pain, blurry vision, loss of vision, nausea, vomiting, abdominal pain, fever, chills, back pain, or any other complaints. Prescriptions: No Action sucralfate 1 gram tablet 1 g PO BID Qty: 180 3RF vitamin B complex [B Complex-Vitamin B12] Tablet 1 tab PO DAILY Qty: 30 6RF Rx Instructions: 1,000mcg dose daily (DME) blood pressure monitor [Blood Pressure Kit] Kit See Rx Instructions .Route Qty: 1 0RF Rx Instructions: As directed (DME) blood-glucose meter [FreeStyle Lite Meter] Kit See Rx Instructions .ROUTE .MEDSUPPLY Qty: 1 0RF Rx Instructions: As directed (DME) lancets [FreeStyle Lancets] 28 gauge misc See Rx Instructions .ROUTE .MEDSUPPLY Qty: 100 3RF Rx Instructions: As directed check BS QD (DME) FreeStyle Lite Strips Strip See Rx Instructions .ROUTE .MEDSUPPLY Qty: 100 3RF Rx Instructions: As directed check the BS QD cyclobenzaprine 5 mg tablet 5 mg PO TID PRN (Reason: muscle spasm) Qty: 10 0RF lidocaine [Lidoderm] 5 % adhesive patch,medicated 1 patch topical DAILY Qty: 15 0RF Rx Instructions: leave on most painful area for up to 12 hrs venlafaxine 150 mg capsule,extended release 24hr 1 cap PO DAILY 0RF quetiapine 50 mg tablet 1 tab PO 0RF ondansetron HCl [Zofran] 4 mg tablet 4 mg PO Q6H PRN (Reason: nausea and vomiting) Qty: 7 0RF zolpidem 10 mg tablet 10 mg PO BEDTIME PRN (Reason: Sleep) 0RF dicyclomine 20 mg tablet 20 mg PO BID 0RF sumatriptan succinate [Imitrex] 50 mg tablet 50 mg PO Q2-4H PRN (Reason: Migraine Headache) 0RF Rx Instructions: do not exceed 4 doses per 24 hrs quetiapine [Seroquel XR] 300 mg tablet extended release 24 hr 300 mg PO BEDTIME 0RF lactulose 10 gram/15 mL solution 10 g PO DAILY 0RF pantoprazole 40 mg tablet,delayed release (DR/EC) 40 mg PO DAILY Qty: 30 1RF ascorbate calcium (vitamin C) 500 mg tablet 500 mg PO DAILY 0RF famotidine [Zantac-360 (famotidine)] 20 mg tablet 20 mg PO BEDTIME Qty: 30 0RF tramadol 50 mg tablet 50 mg PO Q6H PRN (Reason: pain) 30 Days Qty: 60 0RF ziprasidone HCl 20 mg capsule 20 mg PO BID 0RF quetiapine 400 mg tablet 400 mg PO BEDTIME 0RF ursodiol 300 mg capsule 300 mg PO BID 0RF simethicone 80 mg tablet,chewable 80 mg PO Q6H PRN0RF clonazepam 1 mg tablet 1 mg PO TID PRN0RF Referrals: Po,Deirdre Raymundo MD [Primary Care Provider] - Print Language: Armenian
[2022-01-02 13:56] LABS: Basophils Percent Auto 0.6 % (0-2); Eosinophils Absolute Auto 0.1 X10*3/uL (0.0-0.4); Eosinophils Percent Auto 1.4 % (0-4); Imm Gran Abs Auto 0.02 X10*3/uL (0.00-0.03); Imm Gran Pct Auto 0.4 % (0.0-0.4); Lymphocytes Absolute Auto 2.3 X10*3/uL (1.2-4.9); Lymphocytes Percent Auto 46.8 % (20-40); MANUAL DIFF FLAG SCAN; Mean Corpuscular HGB Conc 32.4 g/dl (31.0-35.0); Mean Corpuscular Volume 86.4 fL (80.0-98.0); Mean Platelet Volume 10.9 fL (9.4-12.3); Monocytes Absolute Auto 0.5 X10*3/uL (0.1-1.2); Monocytes Percent Auto 9.4 % (2-11); Neutrophils Percent Auto 41.4 % (45-73); Platelet Count 277 X10*3/uL (160-400); Red Blood Count 4.28 X10*6/uL (4.20-5.50); Red Cell Distribution Width 13.8 % (11.0-16.0); SCAN SMEAR FLAG 1; White Blood Count 4.9 X10*3/uL (4.8-10.8)
[2022-01-02 14:14] LABS: Alanine Aminotransferase 10 U/L (0-31); Albumin Level 4.3 g/dL (3.5-5.0); Alkaline Phosphatase 46 U/L (39-117); Anion Gap 11 (12-20); Aspartate Amino Transferase 11 U/L (5-31); Bilirubin Total 0.4 mg/dL (0.0-1.0); Blood Urea Nitrogen 9 mg/dL (9-16); Calcium 9.3 mg/dL (8.4-10.2); Carbon Dioxide 28 mmol/L (22-29); Chloride 106 mmol/L (96-108); Creatinine Clr Calc Pharmacy 98.3; Estimated Glomerular Filt Rate > 60; Glucose Random 90 mg/dL (60-115); Potassium 3.7 mmol/L (3.3-5.1); Sodium 141 mmol/L (135-145); Total Protein 6.6 g/dL (6.5-8.0)
[2022-01-02 14:25] LABS: SLIDE REVIEW VERIFIED
[2022-01-02 14:32] VITALS: BP 117/73; PULSE 57; RESP 16; O2SAT 96
[2022-01-02] MEDS: 0.9 % Sodium Chloride 1,000 ML 999 ML IVCONT (15:03)
[2022-01-02 15:35] LABS: Appearance Urine CLEAR; Color Urine YELLOW; Glucose Urine UA NEG (NEG); Leukocyte Esterase Urine NEG (NEG); Nitrite Urine NEG (NEG); Specific Gravity - Urine 1.015 (1.005-1.025); Urine Blood NEG (NEG); Urine Ketones NEG (NEG); Urine Protein TRACE MG/DL (NEG-TRACE)
[2022-01-02 16:59] VITALS: BP 127/77; PULSE 58; RESP 14; TEMP 36.8; O2SAT 100
[2022-01-02] MEDS: ondansetron HCL 4 MG/2 ML VIAL IVPUSH (17:00)
[2022-01-02] MEDS: Acetaminophen 325 MG TABLET 650 MG PO (17:00)
[2022-01-02] MEDS: oxyCODONE HCl Immed Release 5 MG TABLET PO (17:03)
[2022-01-07 12:48] LABS: CK-BB None Detected (None Detected); CK-MB 0 % (<5); CK-MM 100 % (95-100); Creatine Kinase,Total,Serum 45 U/L (29-143)
== END 2022-01-02 17:29 | disposition home or self-care (01) ==
PROVIDERS: Physician Assistant Medical; Emergency Provider Emergency Medicine; PCP Internal Medicine
DX: M54.50 Low back pain, unspecified (principal); I10 Essential (primary) hypertension; E78.00 Pure hypercholesterolemia, unspecified; Z90.3 Acquired absence of stomach [part of]
CPT/HCPCS: 36415; 80053; 81003; 82552; 85025; 96361; 96374; 99284; J2405

== ENCOUNTER 2022-02-11 12:39 | Inpatient (IN) | payer OTHER, SELFPAY ==
--- NOTE | ~2022-02-11 | XR_ITS ---
EXAMINATION: XR ABDOMEN KUB CLINICAL INDICATION: Constipation COMPARISON: Chemist Water Purification film from CT dated 12/28/2021 TECHNIQUE: AP view of the abdomen. FINDINGS: Mild to moderate colonic stool. Nonobstructive bowel pattern. XR/XR KUB IMPRESSION: Mild to moderate colonic stool. Nonobstructive bowel pattern
[2022-02-11 13:32] VITALS: BP 112/72; PULSE 60; RESP 19; TEMP 37.1; O2SAT 98; BMI 21.9
[2022-02-11 13:58] LABS: Glucose, Whole Blood 31 mg/dL (60-115)
[2022-02-11] MEDS: Dextrose 50 % 25 GM/50 ML SYRINGE IVPUSH (14:12)
[2022-02-11 14:34] LABS: Glucose, Whole Blood 114 mg/dL (60-115)
--- NOTE | 2022-02-11 14:34 | ED.ABDPAIN ---
HPI - Abdominal Pain General Chief Complaint: Abdominal Pain Stated Complaint: abdominal pain Time Seen by Provider: 02/11/22 13:58 Source: patient, old records reviewed and analytical sciences director Mode of arrival: ambulatory Limitations: language barrier History of Present Illness HPI narrative: 41-year-old female with history of HTN, DM (now off meds), esophagitis, obesity s/p gastric sleeve in September 2021 by at [facility] with resultant 50 lb weight loss and postgastectomy malabsorbtion who presents to the ER for evaluation of abdominal pain, difficulty swallowing for the last 3 days. She has been unable to tolerate solid foods and only been on a liquid diet due to these issues. She states ever since her bariatric surgery in September she has been on the decline. She reports she is off of her diabetes and blood pressure medications. She wakes up every single morning with her glucose low. It is usually in the 30s. Throughout the day she checks it 3 times in it never gets higher than 80. She has syncopized several times, reportedly 3-4 times per week. She last saw Dr. Callaway in the office on January 10 - labs ordered to rule out deficiencies due to malabsorption, documented hypoglycemia was better. Plan to see him again in the office in March. Of note patient was seen here in the emergency department in November for similar complaints, she was sent to [facility] for inpatient admission. MD elicited complaint: abdominal pain Pertinent past history: other (History of gastric sleeve, esophagitis) Onset (ago): day(s) Pain Consistency: constant Location: diffuse Severity: moderate Quality: aching Radiation: epigastric Migration to: no migration Exacerbating factors: eating Relieving factors: nothing Context: history of similar episodes Associated symptoms: nausea and constipation Related Data Home Medications Medication Instructions Recorded Confirmed lactulose 10 gram/15 mL oral 10 g PO DAILY 08/27/20 12/15/21 solution quetiapine 300 mg tablet,extended 300 mg PO BEDTIME 08/27/20 12/15/21 release 24 hr (Seroquel XR) sumatriptan succinate 50 mg tablet 50 mg PO Q2-4H PRN Migraine 08/27/20 12/15/21 (Imitrex) Headache zolpidem 10 mg tablet 10 mg PO BEDTIME PRN Sleep 08/27/20 12/15/21 ascorbate calcium (vitamin C) 500 500 mg PO DAILY 09/08/21 12/15/21 mg tablet quetiapine 50 mg tablet 1 tab PO 09/22/21 12/15/21 venlafaxine 150 mg 1 cap PO DAILY 09/22/21 12/15/21 capsule,extended release 24 hr clonazepam 1 mg tablet 1 mg PO TID PRN 10/26/21 12/15/21 quetiapine 400 mg tablet 400 mg PO BEDTIME 10/26/21 12/15/21 simethicone 80 mg chewable tablet 80 mg PO Q6H PRN 10/26/21 12/15/21 ursodiol 300 mg capsule 300 mg PO BID 10/26/21 12/15/21 ziprasidone HCl 20 mg capsule 20 mg PO BID 10/26/21 12/15/21 Previous Rx's Medication Instructions Recorded pantoprazole 40 mg tablet,delayed 40 mg PO DAILY #30 tabs 09/29/20 release cyclobenzaprine 5 mg tablet 5 mg PO TID PRN muscle spasm #10 02/18/21 tabs lidocaine 5 % topical patch 1 patch topical DAILY #15 ea 04/29/21 (Lidoderm) ondansetron HCl 4 mg tablet 4 mg PO Q6H PRN nausea and 05/18/21 (Zofran) vomiting #7 tabs sucralfate 1 gram tablet 1 g PO BID #180 tabs 05/23/21 vitamin B complex (B 1 tab PO DAILY #30 tabs 07/13/21 Complex-Vitamin B12) blood pressure monitor (Blood #1 ea 10/31/21 Pressure Kit) blood sugar diagnostic (FreeStyle #100 ea 10/31/21 Lite Strips) blood-glucose meter (FreeStyle #1 ea 10/31/21 Lite Meter) lancets 28 gauge (FreeStyle #100 ea 10/31/21 Lancets) famotidine 20 mg tablet 20 mg PO BEDTIME #30 tabs 12/15/21 (Zantac-360 (famotidine)) atorvastatin 20 mg tablet 20 mg PO DAILY #90 tabs 01/27/22 BATH CHAIR #1 ea 01/31/22 CANE #1 ea 01/31/22 LIFELINE ALERT SYSTEM #1 ea 01/31/22 WRIST BRACE #1 ea 01/31/22 diphenhydramine HCl 25 mg capsule 25 mg PO BEDTIME PRN sleep #30 caps 02/07/22 (Benadryl) tramadol 50 mg tablet 50 mg PO Q6H PRN pain 30 days #60 02/07/22 tabs dicyclomine 20 mg tablet 20 mg PO BID #60 tabs 02/08/22 Allergies Allergy/AdvReac Type Severity Reaction Status Date / Time tomato [TOMATO] Allergy Mild HIVES Verified 12/15/21 10:39 DIFFICULTY BREATHING hydrocodone [HYDROCODONE] Allergy Unknown RASH, Verified 12/15/21 10:39 AIRWAY CLOSES ibuprofen [From MOTRIN] Allergy Unknown STOMACH Verified 12/15/21 10:39 UPSET, vomiting trazodone [TRAZODONE] Allergy Unknown UNKNOWN, Verified 12/15/21 10:39 stomach upset black pepper [BLACK PEPPER] AdvReac Severe DIFFICULTY Verified 12/15/21 10:39 BREATHING, hives Review of Systems Review of Systems Constitutional: No Fever, No Chills ENT/Mouth: No sore throat, No Rhinorrhea, No Swallowing Difficulty Eyes: No Eye Pain, No Swelling, No Redness Cardiovascular: No Chest Pain, No SOB, No Orthopnea, No Edema, +Syncope Respiratory: No Cough, No Sputum, No Wheezing, No dyspnea Gastrointestinal: + Nausea, No Vomiting, No Diarrhea, + abdominal Pain Genitourinary: No Dysuria, No Urinary Frequency, No Hematuria Musculoskeletal: No joint pain, No Myalgias Skin: No Skin Lesions, No rash Neuro: No Weakness, No Numbness, + Dizziness, No Headache Psych: +Anxiety/Panic, + Depression Heme/Lymph: No Bruising, No Lymphadenopathy Endocrine: No Polyuria, No Polydipsia PMFSH Past Medical History 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 Diverticulosis GERD (gastroesophageal reflux disease) History of bipolar disorder History of schizophrenia Hypercholesterolemia Hypertension Insomnia Renal calculi Spondylosis of lumbar spine Type 2 diabetes mellitus with hyperglycemia Vitamin D deficiency Surgical History H/O: hysterectomy History of tubal ligation Family History Family History Father Medical history unknown Mother Medical history unknown Paternal Aunt Uterine cancer Diabetes Hypertension Paternal Uncle Liver cancer Heart attack Maternal Aunt Stroke Family/Other Chronic mental illness Sister Uterine cancer Schizophrenia Brother Substance abuse Other Mental health disorder Social History Social History Housing: Apartment Alcohol intake: never Patient Tobacco Use Status: Never used Tobacco e-Cigarette/Vaping Use: Never Used Second Hand Smoke Exposure: No Advance Directives: Yes Advance Directives Information Provided: Yes Advance Directives on File: No service: No Current occupational status: disabled Current occupational exposures/hazards: No Cognitive needs: No Hearing needs: No Vision needs: No Physical Exam ED Vital Signs: Vital Signs - 24 hr 02/11/22 13:32 02/11/22 17:39 Temperature 98.8 F 97.7 F Pulse Rate 60 61 Respiratory Rate 19 16 Blood Pressure 112/72 129/74 Pulse Oximetry 98 100 Oxygen Delivery Method Room Air Room Air BMI result Body Mass Index 21.9 Appearance: Alert. Oriented X3. Tearful. No diaphoresis Eyes: Pupils equal, round and reactive to light. ENT: Pharynx normal. Neck: Normal inspection. Neck supple. CVS: Normal heart rate and rhythm. Pulses normal. Respiratory: No respiratory distress. Breath sounds normal. Abdomen: Well-healed surgical scars on the abdomen consistent with prior bariatric surgery. Soft with mild periumbilical tenderness, no rebound or guarding, decreased but present BS x4 Skin: Skin warm and dry. Normal skin color. Normal skin turgor. No rashes. Extremities: No lower extremity edema. Neuro: Oriented X 3. No motor deficit. No sensory deficit. Course Course Course Narrative: 41-year-old female with history of HTN, DM (now off meds), esophagitis, obesity s/p gastric sleeve in September 2021 by at [facility] with resultant 50 lb weight loss and postgastectomy malabsorbtion who presents to the ER for evaluation of abdominal pain, difficulty swallowing for the last 3 days. Found to be hypoglycemic to 31 in triage. She is awake alert and oriented. She is not diaphoretic. She was given orange juice and brought back to the main ED. IV established and she was given an amp of D50. Will check lab workup and attempt to contact her bariatric surgeon at [facility]. Anticipate transfer to [facility] for further management. Reevaluation(s) Reevaluation #1: Patient's hypoglycemia improved from 31 to 114 after D50, orange juice and a puddiing. Shortly after serum chemistry reveals a glucose of 63. Will start on D5 half normal saline for sugar maintenance. Rest of her lab work is unremarkable. EKG is still pending. Will plan to transfer to [facility] for transfer. Reevaluation #2: Spoke with the Medical admiter at [facility] Dr. Staley who spoke wtih the Surgeon instrumentation and control technician for Dr. Callaway - unfortunately at this time patient has not been accepted to [facility]. This is a medical issue of malabsorption. She will require a bed with telemetry and [facility] has no beds at this time, there emergency room is full of holds and they do not accept the patient for transfer at this time. They are comfortable with patient being managed here. Will plan to admit the patient here for recurrent hypoglycemia. MDM - Abdominal Pain Medical Records Attestation: I reviewed the patient's medical records. Lab Data Attestation: I reviewed the patient's lab results. Result diagrams: 02/11/22 15:32 Labs: Lab Results 02/11/22 02/11/22 02/11/22 Range/Units 13:51 14:30 15:32 Sodium 141 (135-145) mmol/L Potassium 3.6 (3.3-5.1) mmol/L Chloride 106 (96-108) mmol/L Carbon Dioxide 26 (22-29) mmol/L Anion Gap 13 (12-20) BUN 11 (9-16) mg/dL Creatinine 0.70 (0.5-1.4) mg/dL Estim Creat Clear Calc 83.6 Estimated GFR > 60 POC Glucose 31 L* 114 (60-115) mg/dL Random Glucose 63 (60-115) mg/dL Estimat Average Glucose mg/dL Hemoglobin A1c % % Calcium 8.9 (8.4-10.2) mg/dL Total Bilirubin 0.4 (0.0-1.0) mg/dL Direct Bilirubin 0.2 (0.0-0.5) mg/dL AST 10 (5-31) U/L ALT 10 (0-31) U/L Alkaline Phosphatase 44 (39-117) U/L Total Protein 6.4 L (6.5-8.0) g/dL Albumin 4.2 (3.5-5.0) g/dL Lipase 19 (8-78) U/L Urine Color Urine Appearance Urine pH (5.0-8.0) Ur Specific [place] (1.005-1.025) Urine Protein (NEG-TRACE) MG/DL Urine Glucose (UA) (NEG) MG/DL Urine Ketones (NEG) MG/DL Urine Blood (NEG) Urine Nitrite (NEG) Ur Leukocyte Esterase (NEG) Urine Test (NEGATIVE) 02/11/22 02/11/22 02/11/22 Range/Units 15:32 15:33 15:33 Sodium (135-145) mmol/L Potassium (3.3-5.1) mmol/L Chloride (96-108) mmol/L Carbon Dioxide (22-29) mmol/L Anion Gap (12-20) BUN (9-16) mg/dL Creatinine (0.5-1.4) mg/dL Estim Creat Clear Calc Estimated GFR POC Glucose (60-115) mg/dL Random Glucose (60-115) mg/dL Estimat Average Glucose 97 mg/dL Hemoglobin A1c % 5.0 % Calcium (8.4-10.2) mg/dL Total Bilirubin (0.0-1.0) mg/dL Direct Bilirubin (0.0-0.5) mg/dL AST (5-31) U/L ALT (0-31) U/L Alkaline Phosphatase (39-117) U/L Total Protein (6.5-8.0) g/dL Albumin (3.5-5.0) g/dL Lipase (8-78) U/L Urine Color YELLOW Urine Appearance HAZY Urine pH 7.0 (5.0-8.0) Ur Specific [place] 1.015 (1.005-1.025) Urine Protein TRACE (NEG-TRACE) MG/DL Urine Glucose (UA) NEG (NEG) MG/DL Urine Ketones NEG (NEG) MG/DL Urine Blood NEG (NEG) Urine Nitrite NEG (NEG) Ur Leukocyte Esterase NEG (NEG) Urine Test NEGATIVE (NEGATIVE) 02/11/22 Range/Units 17:47 Sodium (135-145) mmol/L Potassium (3.3-5.1) mmol/L Chloride (96-108) mmol/L Carbon Dioxide (22-29) mmol/L Anion Gap (12-20) BUN (9-16) mg/dL Creatinine (0.5-1.4) mg/dL Estim Creat Clear Calc Estimated GFR POC Glucose 66 (60-115) mg/dL Random Glucose (60-115) mg/dL Estimat Average Glucose mg/dL Hemoglobin A1c % % Calcium (8.4-10.2) mg/dL Total Bilirubin (0.0-1.0) mg/dL Direct Bilirubin (0.0-0.5) mg/dL AST (5-31) U/L ALT (0-31) U/L Alkaline Phosphatase (39-117) U/L Total Protein (6.5-8.0) g/dL Albumin (3.5-5.0) g/dL Lipase (8-78) U/L Urine Color Urine Appearance Urine pH (5.0-8.0) Ur Specific [place] (1.005-1.025) Urine Protein (NEG-TRACE) MG/DL Urine Glucose (UA) (NEG) MG/DL Urine Ketones (NEG) MG/DL Urine Blood (NEG) Urine Nitrite (NEG) Ur Leukocyte Esterase (NEG) Urine Test (NEGATIVE) ECG Data Attestation: I personally reviewed and interpreted this ECG as follows: ECG interpretation date: 02/11/22 ECG interpretation time: 16:42 Prior ECG tracings: available for review Interpretation: Sinus bradycardia, ventricular rate 54 beats per minute, ND interval 146, normal QTC, no ST segment elevations or depressions. Critical Care Time Critical Care Time Critical Care Time: Yes Total Critical Care Time: 39 Attestation: I have personally provided critical care time exclusive of time spent on separately billable procedures. Time includes review of lab data, radiology results, discussion with consultants, and monitoring for potential decompensation. Intervention performed as documented. Discharge Plan Discharge Clinical Impression: Hypoglycemia, Malabsorption Patient Disposition: Admitted As Inpatient Prescriptions: No Action sucralfate 1 gram tablet 1 g PO BID Qty: 180 3RF vitamin B complex [B Complex-Vitamin B12] Tablet 1 tab PO DAILY Qty: 30 6RF Rx Instructions: 1,000mcg dose daily (DME) blood pressure monitor [Blood Pressure Kit] Kit See Rx Instructions .Route Qty: 1 0RF Rx Instructions: As directed (DME) blood-glucose meter [FreeStyle Lite Meter] Kit See Rx Instructions .ROUTE .MEDSULY Qty: 1 0RF Rx Instructions: [place] [place] lancets [FreeStyle Lancets] 28 gauge misc See Rx Instructions .ROUTE .MEDSUPPLY Qty: 100 3RF Rx Instructions: As directed check BS QD (DME) FreeStyle Lite Strips Strip See Rx Instructions .ROUTE .MEDSUPPLY Qty: 100 3RF Rx Instructions: As directed check the BS QD atorvastatin 20 mg tablet 20 mg PO DAILY Qty: 90 3RF (DME) CANE See Rx Instructions .Route .MEDSUPPLY Qty: 1 0RF Rx Instructions: [place] [place] WRIST BRACE See Rx Instructions .Route .MEDSUPPLY Qty: 1 0RF Rx Instructions: [place] directed [place] [place] BATH CHAIR See Rx Instructions .Route .MEDSUPPLY Qty: 1 0RF Rx Instructions: [place] directed [place] [place] LIFELINE ALERT SYSTEM See Rx Instructions .Route .MEDSUPPLY Qty: 1 0RF Rx Instructions: As directed tramadol 50 mg tablet 50 mg PO Q6H PRN (Reason: pain) 30 Days Qty: 60 0RF diphenhydramine HCl [Benadryl] 25 mg capsule 25 mg PO BEDTIME PRN (Reason: sleep) Qty: 30 0RF dicyclomine 20 mg tablet 20 mg PO BID Qty: 60 0RF cyclobenzaprine 5 mg tablet 5 mg PO TID PRN (Reason: muscle spasm) Qty: 10 0RF lidocaine [Lidoderm] 5 % adhesive patch,medicated 1 patch topical DAILY Qty: 15 0RF Rx Instructions: leave on most painful area for up to 12 hrs venlafaxine 150 mg capsule,extended release 24hr 1 cap PO DAILY quetiapine 50 mg tablet 1 tab PO ondansetron HCl [Zofran] 4 mg tablet 4 mg PO Q6H PRN (Reason: nausea and vomiting) Qty: 7 0RF zolpidem 10 mg tablet 10 mg PO BEDTIME PRN (Reason: Sleep) sumatriptan succinate [Imitrex] 50 mg tablet 50 mg PO Q2-4H PRN (Reason: Migraine Headache) Rx Instructions: do not exceed 4 doses per 24 hrs quetiapine [Seroquel XR] 300 mg tablet extended release 24 hr 300 mg PO BEDTIME lactulose 10 gram/15 mL solution 10 g PO DAILY pantoprazole 40 mg tablet,delayed release (DR/EC) 40 mg PO DAILY Qty: 30 1RF ascorbate calcium (vitamin C) 500 mg tablet 500 mg PO DAILY famotidine [Zantac-360 (famotidine)] 20 mg tablet 20 mg PO BEDTIME Qty: 30 0RF ziprasidone HCl 20 mg capsule 20 mg PO BID quetiapine 400 mg tablet 400 mg PO BEDTIME ursodiol 300 mg capsule 300 mg PO BID simethicone 80 mg tablet,chewable 80 mg PO Q6H PRN clonazepam 1 mg tablet 1 mg PO TID PRN
--- NOTE | 2022-02-11 14:44 | ECG_ITS ---
Test Reason : NAUSEA Blood Pressure : / mmHG Vent. Rate : 054 BPM Atrial Rate : 054 BPM P-R Int : 146 ms QRS Dur : 096 ms QT Int : 420 ms P-R-T Axes : 063 066 038 degrees QTc Int : 398 ms Sinus bradycardia Otherwise normal ECG When compared with ECG of 28-NOV-2021 16:54, No significant change was found Referred By: Yuni Mcdonald Electronically Signed By:DINA ESQUIVEL MD
[2022-02-11 15:39] LABS: Appearance Urine HAZY; Color Urine YELLOW; Glucose Urine UA NEG (NEG); Leukocyte Esterase Urine NEG (NEG); Nitrite Urine NEG (NEG); Specific Gravity - Urine 1.015 (1.005-1.025); Urine Blood NEG (NEG); Urine Ketones NEG (NEG); Urine Protein TRACE MG/DL (NEG-TRACE)
[2022-02-11 15:41] LABS: UPreg QC Valid YES; Urine Pregnancy NEGATIVE (NEGATIVE)
[2022-02-11 16:01] LABS: Alanine Aminotransferase 10 U/L (0-31); Albumin Level 4.2 g/dL (3.5-5.0); Alkaline Phosphatase 44 U/L (39-117); Anion Gap 13 (12-20); Aspartate Amino Transferase 10 U/L (5-31); Bilirubin Direct 0.2 mg/dL (0.0-0.5); Bilirubin Total 0.4 mg/dL (0.0-1.0); Blood Urea Nitrogen 11 mg/dL (9-16); Calcium 8.9 mg/dL (8.4-10.2); Carbon Dioxide 26 mmol/L (22-29); Chloride 106 mmol/L (96-108); Creatinine Clr Calc Pharmacy 83.6; Estimated Glomerular Filt Rate > 60; Glucose Random 63 mg/dL (60-115); Lipase 19 U/L (8-78); Potassium 3.6 mmol/L (3.3-5.1); Sodium 141 mmol/L (135-145); Total Protein 6.4 g/dL (6.5-8.0)
--- NOTE | 2022-02-11 16:08 | PC.NURSE ---
@[phone] PER GALINDO WALTERS PLACED A CALL TO [facility] TRANSFER LINE. SPOKE TO EUGENIE AND REQUESTED TO SPEAK TO PROVIDER. GALINDO PICKED UP RIGHT AWAY.
[2022-02-11 16:12] LABS: Estimated Average Glucose 97 mg/dL
[2022-02-11] MEDS: Dextrose 5 % and 0.45 % NaCl 1,000 ML 100 ML IVCONT (16:16)
[2022-02-11 17:39] VITALS: BP 129/74; PULSE 61; RESP 16; TEMP 36.5; O2SAT 100
--- NOTE | 2022-02-11 17:42 | PC.NURSE ---
@ [id number] CALL RECEIVED FROM [facility] TRANSFER LINE ASKING TO SPEAK WITH GALINDO, GALIDNO TAKES OVER CALL RIGHT AWAY
[2022-02-11] MEDS: Sucralfate 1 GM TABLET PO (17:48)
[2022-02-11 17:51] LABS: Glucose, Whole Blood 66 mg/dL (60-115)
--- NOTE | 2022-02-11 18:37 | PHA.MEDREC ---
Pharmacy Consult ? Medication Reconciliation Pharmacy has completed the medication reconciliation. Spoke with patient via athletics teacher
--- NOTE | 2022-02-11 19:01 | PC.NURSE ---
Addendum entered by Kortney Wilson 02/12/22 00:42: report given to DALLAS Rasmussen Original Note: report received from DALLAS Guerrero
--- NOTE | 2022-02-11 20:01 | PM.IMHP ---
History of Present Illness Date of Service: 02/11/22 Chief Complaint: Hyperglycemia Botswanan-speaking only, history is obtained with the help of an care transitions manager. This is a 41-year-old female past medical history of hypertension, diabetes off meds since her gastric sleeve surgery in September with resultant 50 lb weight loss and post gastrectomy malabsorption who presents to the hospital with complaints of abdominal pain, and hypoglycemia. Patient reports that ever since her gastric sleeve surgery she has had multiple episodes of hypoglycemia to the point that she passes out. She says that sometimes she has prodromal symptoms before fainting but sometimes she does not and that scares her. She reports that her sugar was in the 30s. She has nausea with no vomiting, no abdominal pain, no diarrhea constipation, no urinary symptoms, no chest pain, no cough, no shortness of breath. No lower extremity edema. Patient seems to be frustrated and angry about her situation and reports that she wishes she knew why she was hypoglycemic all the time. She reports that she does not take any diabetic medications. And has been hypoglycemic almost daily with her sugar not going above 80. She reports that she faints 3-4 times per week. 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 Diverticulosis GERD (gastroesophageal reflux disease) History of bipolar disorder History of schizophrenia Hypercholesterolemia Hypertension Insomnia Renal calculi Spondylosis of lumbar spine Type 2 diabetes mellitus with hyperglycemia Vitamin D deficiency Family History Father Medical history unknown Mother Medical history unknown Paternal Aunt Uterine cancer Diabetes Hypertension Paternal Uncle Liver cancer Heart attack Maternal Aunt Stroke Family/Other Chronic mental illness Sister Uterine cancer Schizophrenia Brother Substance abuse Other Mental health disorder Surgical History H/O: hysterectomy History of tubal ligation Social History Housing: Apartment Alcohol intake: never Patient Tobacco Use Status: Never used Tobacco e-Cigarette/Vaping Use: Never Used Second Hand Smoke Exposure: No Advance Directives: Yes Advance Directives Information Provided: Yes Advance Directives on File: No service: No Current occupational status: disabled Current occupational exposures/hazards: No Cognitive needs: No Hearing needs: No Vision needs: No Meds Allergies Allergy/AdvReac Type Severity Reaction Status Date / Time tomato [TOMATO] Allergy Mild HIVES Verified 12/15/21 10:39 DIFFICULTY BREATHING hydrocodone [HYDROCODONE] Allergy Unknown RASH, Verified 12/15/21 10:39 AIRWAY CLOSES ibuprofen [From MOTRIN] Allergy Unknown STOMACH Verified 12/15/21 10:39 UPSET, vomiting trazodone [TRAZODONE] Allergy Unknown UNKNOWN, Verified 12/15/21 10:39 stomach upset black pepper [BLACK PEPPER] AdvReac Severe DIFFICULTY Verified 12/15/21 10:39 BREATHING, hives Active Medications: Current Medications Acetaminophen (Acetaminophen 325 Mg Tablet) 650 mg PO Q6H PRN PRN Reason: Pain, Mild (Pain Scale 1-3) Dextrose (Dextrose 50 % 25 Gm/50 Ml Syringe) 25 gm IVPUSH Q15M PRN PRN Reason: per Hypoglycemia Standing Ord. Last Admin: 02/11/22 14:12 Dose: 25 gm Dextrose/Sodium Chloride (D51/2ns) 1,000 mls @ 100 mls/hr IVCONT .Q10H OSBALDO Last Admin: 02/11/22 16:16 Dose: 100 mls/hr Sodium Chloride (0.9 % Sodium Chloride Flush 3 Ml Syringe) 3 ml IVFLUSH QSHIFT [facility] Home Medications Medication Instructions Recorded Confirmed Last Taken Type lactulose 10 gram/15 mL oral 10 g PO DAILY 08/27/20 02/11/22 Unknown History solution zolpidem 10 mg tablet 10 mg PO BEDTIME PRN Sleep 08/27/20 02/11/22 Unknown History ascorbate calcium (vitamin C) 500 500 mg PO DAILY 09/08/21 02/11/22 Unknown History mg tablet quetiapine 50 mg tablet 1 tab PO BID 09/22/21 02/11/22 Unknown History venlafaxine 150 mg 1 cap PO DAILY 09/22/21 02/11/22 Unknown History capsule,extended release 24 hr clonazepam 1 mg tablet 1 mg PO TID 10/26/21 02/11/22 Unknown History quetiapine 400 mg tablet 400 mg PO BEDTIME 10/26/21 02/11/22 Unknown History simethicone 80 mg chewable tablet 80 mg PO Q6H PRN GAS 10/26/21 02/11/22 Unknown History ursodiol 300 mg capsule 300 mg PO BID 10/26/21 02/11/22 Unknown History ziprasidone HCl 20 mg capsule 20 mg PO BID 10/26/21 02/11/22 Unknown History acetaminophen 500 mg tablet 2 tab PO Q8H 02/11/22 02/11/22 Unknown History cholecalciferol (vitamin D3) 50 1 tab PO DAILY 02/11/22 02/11/22 Unknown History mcg (2,000 unit) tablet (Vitamin D3) famotidine 40 mg tablet 1 tab PO BEDTIME 02/11/22 02/11/22 Unknown History hydroxyzine pamoate 50 mg capsule 1 cap PO BID PRN Anxiety 02/11/22 02/11/22 Unknown History linaclotide 290 mcg capsule 1 cap PO DAILY 02/11/22 02/11/22 Unknown History (Linzess) ondansetron 4 mg disintegrating 1 tab PO Q8H PRN nausea 02/11/22 02/11/22 Unknown History tablet pantoprazole 40 mg tablet,delayed 40 mg PO DAILY@0630 02/11/22 02/11/22 Unknown History release tramadol 50 mg tablet 50 mg PO Q12H PRN Pain (Scale 02/11/22 02/11/22 Unknown History Score 4-6) Physical Exam Vital Signs and Narrative: Vital Signs: Last Vital Signs Temp 97.7 F 02/11/22 17:39 Pulse 61 02/11/22 17:39 Resp 16 02/11/22 17:39 BP 129/74 02/11/22 17:39 Pulse Ox 100 02/11/22 17:39 O2 Del Method 02/11/22 17:39 BMI result Body Mass Index 21.9 Const: General: cooperative and no acute distress Orientation/consciousness: patient oriented x3 Eyes: General: appearance normal, both eyes and all related structures Pupils: Equal, round and reactive pupils present Resp: Effort & Inspection: normal respiratory effort Auscultation: clear to auscultation bilaterally Cardio: Rate: regular rate Rhythm: regular rhythm GI: Palpation (GI): Soft to palpation Auscultation: normal bowel sounds Skin: General skin exam: no rashes or lesions noted Neuro: General: patient oriented x3 Cranial nerves: Yes Equal, round and reactive pupils present Cognition (Neuro): normal cognition Extrem: General: Yes normal to inspection and Yes no pedal edema Results Labs CBC and Chem 7: 02/11/22 15:32 Labs: Laboratory Results - last 24 hr 02/11/22 02/11/22 02/11/22 13:51 14:30 15:32 Anion Gap 13 Estim Creat Clear Calc 83.6 Estimated GFR > 60 POC Glucose 31 L* 114 Random Glucose 63 Estimat Average Glucose Hemoglobin A1c % Calcium 8.9 Total Bilirubin 0.4 Direct Bilirubin 0.2 AST 10 ALT 10 Alkaline Phosphatase 44 Total Protein 6.4 L Albumin 4.2 Lipase 19 Urine Color Urine Appearance Urine pH Ur Specific [place] Urine Protein Urine Glucose (UA) Urine Ketones Urine Blood Urine Nitrite Ur Leukocyte Esterase Urine Test 02/11/22 02/11/22 02/11/22 15:32 15:33 15:33 Anion Gap Estim Creat Clear Calc Estimated GFR POC Glucose Random Glucose Estimat Average Glucose 97 Hemoglobin A1c % 5.0 Calcium Total Bilirubin Direct Bilirubin AST ALT Alkaline Phosphatase Total Protein Albumin Lipase Urine Color YELLOW Urine Appearance HAZY Urine pH 7.0 Ur Specific [place] 1.015 Urine Protein TRACE Urine Glucose (UA) NEG Urine Ketones NEG Urine Blood NEG Urine Nitrite NEG Ur Leukocyte Esterase NEG Urine Test NEGATIVE 02/11/22 17:47 Anion Gap Estim Creat Clear Calc Estimated GFR POC Glucose 66 Random Glucose Estimat Average Glucose Hemoglobin A1c % Calcium Total Bilirubin Direct Bilirubin AST ALT Alkaline Phosphatase Total Protein Albumin Lipase Urine Color Urine Appearance Urine pH Ur Specific [place] Urine Protein Urine Glucose (UA) Urine Ketones Urine Blood Urine Nitrite Ur Leukocyte Esterase Urine Test Imaging Radiologist's Impressions: Impressions KUB X-Ray 02/11/22 14:35 IMPRESSION: Mild to moderate colonic stool. Nonobstructive bowel pattern Assessment and Plan (1) Hypoglycemia: Status: Acute (2) Malabsorption: Status: Acute Plan 41-year-old female with past medical history of sleeve gastrectomy in September of this year presents to the hospital with recurrent hypoglycemia # hyperglycemia - likely secondary to malabsorption - in D5 fluid - monitor POC closely #history of diabetes - cured she post each showed gastric she sleeve - she is not on any medications for diabetes at this time # she history of gastric sleeve - she continues follow-up outpatient [facility] DVT prophylaxis: early ambulation Quality Stroke Does the patient have a stroke diagnosis?: No VTE Prior VTE?: No VTE Risk Level:: Medical - low VTE Device Contraindication: Treatment Not Indicated VTE Drug Contraindication: Treatment Not Indicated
[2022-02-11 22:43] LABS: COVID-19 Test Negative (Negative)
--- NOTE | 2022-02-12 01:04 | PC.NURSE ---
POC checked, 71 at this time.
[2022-02-12 01:05] LABS: Glucose, Whole Blood 71 mg/dL (60-115)
[2022-02-12] MEDS: Dextrose 5 % and 0.45 % NaCl 1,000 ML 100 ML IVCONT ×2 (06:42→16:26)
[2022-02-12 07:18] LABS: MANUAL DIFF FLAG NO
[2022-02-12 07:21] LABS: Basophils Percent Auto 0.9 % (0-2); Eosinophils Absolute Auto 0.1 X10*3/uL (0.0-0.4); Eosinophils Percent Auto 2.8 % (0-4); Hematocrit 35.4 % (37.0-47.0); Hemoglobin 11.3 g/dl (12.0-16.0); Imm Gran Abs Auto 0.01 X10*3/uL (0.00-0.03); Imm Gran Pct Auto 0.2 % (0.0-0.4); Lymphocytes Percent Auto 45.9 % (20-40); Mean Corpuscular HGB Conc 31.9 g/dl (31.0-35.0); Mean Corpuscular Hemoglobin 28.6 pg (27.0-33.0); Mean Corpuscular Volume 89.6 fL (80.0-98.0); Mean Platelet Volume 11.3 fL (9.4-12.3); Monocytes Absolute Auto 0.4 X10*3/uL (0.1-1.2); Monocytes Percent Auto 9.4 % (2-11); Neutrophils Absolute Auto 1.7 x10*3/uL (2.0-8.3); Neutrophils Percent Auto 40.8 % (45-73); Platelet Count 270 X10*3/uL (160-400); Red Blood Count 3.95 X10*6/uL (4.20-5.50); Red Cell Distribution Width 13.8 % (11.0-16.0); White Blood Count 4.3 X10*3/uL (4.8-10.8)
[2022-02-12 07:46] LABS: Anion Gap 10 (12-20); Blood Urea Nitrogen 7 mg/dL (9-16); Calcium 8.4 mg/dL (8.4-10.2); Carbon Dioxide 26 mmol/L (22-29); Chloride 108 mmol/L (96-108); Creatinine Clr Calc Pharmacy 84.8; Estimated Glomerular Filt Rate > 60; Glucose Random 93 mg/dL (60-115); Potassium 4.2 mmol/L (3.3-5.1); Sodium 140 mmol/L (135-145)
[2022-02-12] MEDS: Acetaminophen 325 MG TABLET 650 MG PO (10:51)
--- NOTE | 2022-02-12 10:52 | PC.NURSE ---
UNABLE TO SCAN MEDS. PT IN [place], NO WOW AVAILABLE
[2022-02-12 11:13] LABS: Glucose, Whole Blood 36 mg/dL (60-115)
--- NOTE | 2022-02-12 11:23 | P.PNIM_ITS ---
Subjective Subjective Date of Service: 02/12/22 Interval History: Seen and examined this morning with marketing and communications officer services Discussed with her in detail about her hypoglycemia events. Initially was thought that it started after her bariatric surgery. However she reports that she has been having hypoglycemic episodes for about a year prior to that. She reports that she has just been referred to an ski instructor. Review of Systems Negative except HPI Physical Exam Vital Signs: Vital Signs: Last Vital Signs Temp 97.7 F 02/11/22 17:39 Pulse 61 02/11/22 17:39 Resp 16 02/11/22 17:39 BP 129/74 02/11/22 17:39 Pulse Ox 100 02/11/22 17:39 O2 Del Method 02/11/22 17:39 BMI result Body Mass Index 21.9 Const: Other: General - no acute distress, appears comfortable Cardiovascular - regular rate and rhythm, S1-S2 Lungs - normal respiratory effort, clear to auscultation bilaterally, no wheezing Abdomen - soft, nontender, no rebound regarding Extremities - no edema bilaterally Neuro - awake and alert, no focal deficits Objective Data Active Medications Acetaminophen (Acetaminophen 325 Mg Tablet) 650 mg PO Q6H PRN PRN Reason: Pain, Mild (Pain Scale 1-3) Last Admin: 02/12/22 10:51 Dose: 650 mg Documented By: ARIEL Dextrose (Dextrose 50 % 25 Gm/50 Ml Syringe) 25 gm IVPUSH Q15M PRN PRN Reason: per Hypoglycemia Standing Ord. Last Admin: 02/11/22 14:12 Dose: 25 gm Documented By: BELLAOPECandie Dextrose/Sodium Chloride (D51/2ns) 1,000 mls @ 100 mls/hr IVCONT .Q10H OSBALDO Last Admin: 02/12/22 06:42 Dose: 100 mls/hr Documented By: CAMPBELL Sodium Chloride (0.9 % Sodium Chloride Flush 3 Ml Syringe) 3 ml IVFLUSH QSHIFT [facility] Last Admin: 02/12/22 10:47 Dose: Not Given Documented By: VAL Non-Admin Reason: IV Running Labs CBC & Chem 7: 02/12/22 07:14 02/12/22 07:14 Labs: Laboratory Results - last 24 hr 02/11/22 02/11/22 02/11/22 13:51 14:30 15:32 MCV MCH MCHC RDW Plt Count MPV Immature Gran % (Auto) Neut % (Auto) Lymph % (Auto) [place] % (Auto) Eos % (Auto) Baso % (Auto) Lymph # (Auto) [place] # (Auto) Eos # (Auto) Baso # (Auto) Abs Immat Gran (auto) Absolute Neuts (auto) Absolute Nucleated RBC Nucleated RBC % (auto) Anion Gap 13 Estim Creat Clear Calc 83.6 Estimated GFR > 60 POC Glucose 31 L* 114 Random Glucose 63 Estimat Average Glucose Hemoglobin A1c % Calcium 8.9 Total Bilirubin 0.4 Direct Bilirubin 0.2 AST 10 ALT 10 Alkaline Phosphatase 44 Total Protein 6.4 L Albumin 4.2 Lipase 19 Urine Color Urine Appearance Urine pH Ur Specific [place] Urine Protein Urine Glucose (UA) Urine Ketones Urine Blood Urine Nitrite Ur Leukocyte Esterase Urine Test COVID-19 (ANGELA) COVID-19 [employer] 02/11/22 02/11/22 02/11/22 15:32 15:33 15:33 MCV MCH MCHC RDW Plt Count MPV Immature Gran % (Auto) Neut % (Auto) Lymph % (Auto) [place] % (Auto) Eos % (Auto) Baso % (Auto) Lymph # (Auto) [place] # (Auto) Eos # (Auto) Baso # (Auto) Abs Immat Gran (auto) Absolute Neuts (auto) Absolute Nucleated RBC Nucleated RBC % (auto) Anion Gap Estim Creat Clear Calc Estimated GFR POC Glucose Random Glucose Estimat Average Glucose 97 Hemoglobin A1c % 5.0 Calcium Total Bilirubin Direct Bilirubin AST ALT Alkaline Phosphatase Total Protein Albumin Lipase Urine Color YELLOW Urine Appearance HAZY Urine pH 7.0 Ur Specific [place] 1.015 Urine Protein TRACE Urine Glucose (UA) NEG Urine Ketones NEG Urine Blood NEG Urine Nitrite NEG Ur Leukocyte Esterase NEG Urine Test NEGATIVE COVID-19 (ANGELA) COVID-19 [employer] 02/11/22 02/11/22 02/12/22 15:33 17:47 01:01 MCV MCH MCHC RDW Plt Count MPV Immature Gran % (Auto) Neut % (Auto) Lymph % (Auto) [place] % (Auto) Eos % (Auto) Baso % (Auto) Lymph # (Auto) [place] # (Auto) Eos # (Auto) Baso # (Auto) Abs Immat Gran (auto) Absolute Neuts (auto) Absolute Nucleated RBC Nucleated RBC % (auto) Anion Gap Estim Creat Clear Calc Estimated GFR POC Glucose 66 71 Random Glucose Estimat Average Glucose Hemoglobin A1c % Calcium Total Bilirubin Direct Bilirubin AST ALT Alkaline Phosphatase Total Protein Albumin Lipase Urine Color Urine Appearance Urine pH Ur Specific [place] Urine Protein Urine Glucose (UA) Urine Ketones Urine Blood Urine Nitrite Ur Leukocyte Esterase Urine Test COVID-19 (ANGELA) Negative COVID-19 Clin Com See Note 02/12/22 02/12/22 02/12/22 07:14 07:14 11:09 MCV 89.6 MCH 28.6 MCHC 31.9 RDW 13.8 Plt Count 270 MPV 11.3 Immature Gran % (Auto) 0.2 Neut % (Auto) 40.8 L Lymph % (Auto) 45.9 H [place] % (Auto) 9.4 Eos % (Auto) 2.8 Baso % (Auto) 0.9 Lymph # (Auto) 2.0 [place] # (Auto) 0.4 Eos # (Auto) 0.1 Baso # (Auto) 0.0 Abs Immat Gran (auto) 0.01 Absolute Neuts (auto) 1.7 L Absolute Nucleated RBC 0.000 Nucleated RBC % (auto) 0.0 Anion Gap 10 L Estim Creat Clear Calc 84.8 Estimated GFR > 60 POC Glucose 36 L* Random Glucose 93 Estimat Average Glucose Hemoglobin A1c % Calcium 8.4 Total Bilirubin Direct Bilirubin AST ALT Alkaline Phosphatase Total Protein Albumin Lipase Urine Color Urine Appearance Urine pH Ur Specific [place] Urine Protein Urine Glucose (UA) Urine Ketones Urine Blood Urine Nitrite Ur Leukocyte Esterase Urine Test COVID-19 (ANGELA) COVID-19 Clin Com Assessment and Plan (1) Hypoglycemia: Status: Acute Plan 41-year-old female with past medical history of sleeve gastrectomy in September of this year presents to the hospital with recurrent hypoglycemia # hyperglycemia initially reported as post gastric sleve, but now pt endorses that it has been happening prior to surgery hypoglycemia panel ordered continue D5-1/2 POC q4h #history of diabetes off meds >1 year A1C #mood continue baseline meds #history of gastric sleeve f/u outpatient DVT prophylaxis:? early ambulation Quality Stroke Does the patient have a stroke diagnosis?: No VTE Prior VTE?: No VTE Risk Level:: Medical - low VTE Device Contraindication: Treatment Not Indicated VTE Drug Contraindication: Treatment Not Indicated
[2022-02-12] MEDS: Dextrose 50 % 25 GM/50 ML SYRINGE IVPUSH (11:25)
--- NOTE | 2022-02-12 11:25 | PC.NURSE ---
POC 39, apple juice, pudding and crackers given. D50 IV pushed. Pt c/o nausea only at this time.
[2022-02-12 12:00] VITALS: BP 118/68; PULSE 66; RESP 16; TEMP 36.2; O2SAT 100
[2022-02-12 12:08] LABS: Glucose, Whole Blood 158 mg/dL (60-115)
[2022-02-12] MEDS: traMADoL HCL 50 MG TABLET PO (12:49)
--- NOTE | 2022-02-12 14:48 | MHC.CM.PN ---
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
[2022-02-12 15:12] VITALS: BP 116/66; PULSE 70; RESP 18; TEMP 36.3; O2SAT 97
[2022-02-12 16:14] LABS: Glucose, Whole Blood 71 mg/dL (60-115)
[2022-02-12] MEDS: clonazePAM 1 MG TABLET PO ×2 (16:25→20:26)
[2022-02-12 18:09] LABS: Glucose, Whole Blood 89 mg/dL (60-115)
[2022-02-12 19:26] VITALS: BP 119/65; PULSE 83; RESP 18; TEMP 36.4; O2SAT 100
[2022-02-12 19:58] LABS: Glucose, Whole Blood 94 mg/dL (60-115)
[2022-02-12] MEDS: Dicyclomine HCl 10 MG CAPSULE 20 MG PO (20:25)
[2022-02-12] MEDS: Famotidine 20 MG TABLET 40 MG PO (20:26)
[2022-02-12] MEDS: Ziprasidone 20 MG CAPSULE PO (20:26)
[2022-02-12] MEDS: QUEtiapine Fumarate 400 MG TABLET PO (20:26)
[2022-02-12] MEDS: UrsodioL 300 MG CAPSULE PO (20:26)
[2022-02-12] MEDS: QUEtiapine Fumarate 50 MG TABLET PO (20:26)
[2022-02-12] MEDS: Sucralfate 1 GM TABLET PO (20:27)
[2022-02-12 23:47] VITALS: BP 106/58; PULSE 62; RESP 18; TEMP 36.4; O2SAT 97
[2022-02-12 23:47] LABS: Glucose, Whole Blood 112 mg/dL (60-115)
[2022-02-13] MEDS: Dextrose 5 % and 0.45 % NaCl 1,000 ML 100 ML IVCONT ×2 (01:37→14:13)
[2022-02-13 03:08] LABS: Glucose, Whole Blood 98 mg/dL (60-115)
[2022-02-13 03:52] VITALS: BP 112/56; PULSE 54; RESP 18; TEMP 36.5; O2SAT 98
[2022-02-13] MEDS: Omeprazole 20 MG CAPSULE.DR PO (06:03)
[2022-02-13 07:15] VITALS: BP 96/55; PULSE 58; RESP 17; TEMP 36.4; O2SAT 99
[2022-02-13 07:41] LABS: Glucose, Whole Blood 77 mg/dL (60-115)
[2022-02-13] MEDS: Venlafaxine HCl ER 150 MG CAP.ER.24H PO (09:50)
[2022-02-13] MEDS: Cholecalciferol (Vitamin D3) 25 MCG TABLET 50 MCG PO (09:50)
[2022-02-13] MEDS: Dicyclomine HCl 10 MG CAPSULE 20 MG PO ×2 (09:50→21:56)
[2022-02-13] MEDS: QUEtiapine Fumarate 50 MG TABLET PO (09:50)
[2022-02-13] MEDS: clonazePAM 1 MG TABLET PO ×3 (09:50→21:53)
[2022-02-13] MEDS: Sucralfate 1 GM TABLET PO ×2 (09:50→21:52)
[2022-02-13] MEDS: Atorvastatin Calcium 20 MG TABLET PO (09:51)
[2022-02-13] MEDS: Multivitamin TABLET 1 TAB PO (09:51)
[2022-02-13] MEDS: Lactulose 20 GM/30 ML SOLUTION 10 GM PO (09:51)
[2022-02-13] MEDS: Ziprasidone 20 MG CAPSULE PO ×2 (09:51→21:52)
[2022-02-13] MEDS: UrsodioL 300 MG CAPSULE PO ×2 (09:51→21:52)
[2022-02-13] MEDS: Ascorbic Acid 500 MG TABLET PO (09:51)
[2022-02-13 10:49] VITALS: BP 116/75; PULSE 61; RESP 18; TEMP 36.2; O2SAT 100
[2022-02-13 11:19] LABS: Glucose, Whole Blood 67 mg/dL (60-115)
--- NOTE | 2022-02-13 13:21 | PM.EVENT ---
Event Note Date of Service: 02/13/22 Event Note: Hospitalist Note D/w the patients case with Adult Education Instructor [place] [facility] [facility]. In order to diagnose the patients hypoglycemia -- we will need the followin hour fast (including no IVF) with q1 hour POC; Once the patients glucose decreases to around 50-55, hypoglycemia labs (see listed below) are to be ordered stat (PRIOR to administering treatment for the hypoglycemia i.e glucagon, d50, etc). She will need the following labs drawn when hypoglycemic (50-55) ACTH Cortisol Basic metabolic profile Beta hydroxybutyrate C-peptide Insulin level Self on urea screen Proinsulin Insulin antibody. She will be transferred to ICU for q1h POC
--- NOTE | 2022-02-13 14:14 | MHC.CLN ---
NUTRITION CONSULT FOR DIET POST BARIATRIC SURGERY. PATIENT WITH GASTRIC SLEEVE 10/19/21. STATED THAT TAKES EATS REGULAR FOODS AND PROTEIN DRINK. ADDING ENSURE MAX HIGH PROTEIN TID TO PROVIDE ADDITIONAL 450 KCALS, 90 G PROTEIN.
[2022-02-13 15:03] VITALS: BP 107/57; PULSE 62; RESP 18; TEMP 36.2; O2SAT 100
--- NOTE | 2022-02-13 15:09 | MHC.CM.PN ---
PATIENT GIVEN [facility] REFERRAL BROCHURE FOR SERVICES. SHE IS AWARE THAT SHE IS EXPECTED TO TRANSFER TO ICU AND THAT CASE MANAGEMENT CAN FOLLOW UP WITH ADDITIONAL RESOURCES IF NEEDED.
[2022-02-13 16:13] LABS: Anion Gap 13 (12-20); Blood Urea Nitrogen 6 mg/dL (9-16); Carbon Dioxide 25 mmol/L (22-29); Chloride 107 mmol/L (96-108); Creatinine Clr Calc Pharmacy 87.4; Estimated Glomerular Filt Rate > 60; Glucose Random 97 mg/dL (60-115); Potassium 3.9 mmol/L (3.3-5.1); Sodium 141 mmol/L (135-145)
[2022-02-13 16:32] LABS: Insulin 7 uU/mL (2-29)
[2022-02-13 16:40] LABS: Cortisol Random 6.7 ug/dL
[2022-02-13 16:44] LABS: Glucose, Whole Blood 72 mg/dL (60-115)
[2022-02-13 17:52] LABS: Glucose, Whole Blood 62 mg/dL (60-115)
[2022-02-13 18:15] LABS: Glucose, Whole Blood 61 mg/dL (60-115)
[2022-02-13 19:06] LABS: Glucose, Whole Blood 59 mg/dL (60-115)
[2022-02-13 20:00] VITALS: BP 106/64; PULSE 60; RESP 16; TEMP 36.5; O2SAT 99
[2022-02-13 20:09] LABS: Glucose, Whole Blood 60 mg/dL (60-115)
[2022-02-13 20:57] LABS: Glucose, Whole Blood 55 mg/dL (60-115)
[2022-02-13] MEDS: Dextrose 50 % 25 GM/50 ML SYRINGE IVPUSH (21:32)
[2022-02-13 21:48] LABS: Glucose, Whole Blood 130 mg/dL (60-115)
[2022-02-13] MEDS: Famotidine 20 MG TABLET 40 MG PO (21:52)
[2022-02-13 21:58] LABS: Anion Gap 13 (12-20); Blood Urea Nitrogen 5 mg/dL (9-16); Calcium 8.7 mg/dL (8.4-10.2); Carbon Dioxide 24 mmol/L (22-29); Chloride 107 mmol/L (96-108); Creatinine Clr Calc Pharmacy 91.5; Estimated Glomerular Filt Rate > 60; Glucose Fasting 88 mg/dL (60-99); Potassium 3.9 mmol/L (3.3-5.1); Sodium 140 mmol/L (135-145)
[2022-02-13 22:19] LABS: Insulin 3 uU/mL (2-29)
[2022-02-13 22:24] LABS: Cortisol Random 4.4 ug/dL
[2022-02-13 22:49] LABS: Glucose, Whole Blood 129 mg/dL (60-115)
[2022-02-13 23:27] VITALS: BP 98/63; PULSE 50; RESP 16; TEMP 36.5; O2SAT 98
[2022-02-14 00:05] LABS: Glucose, Whole Blood 90 mg/dL (60-115)
[2022-02-14 00:59] LABS: Glucose, Whole Blood 65 mg/dL (60-115)
[2022-02-14 02:09] LABS: Glucose, Whole Blood 62 mg/dL (60-115)
[2022-02-14 03:05] LABS: Glucose, Whole Blood 75 mg/dL (60-115)
[2022-02-14] MEDS: 0.9 % Sodium Chloride Flush 3 ML SYRINGE IVFLUSH ×3 (03:14→14:57)
[2022-02-14 04:00] VITALS: BP 103/58; PULSE 52; RESP 14; TEMP 36.7; O2SAT 98
[2022-02-14 04:03] LABS: Glucose, Whole Blood 75 mg/dL (60-115)
--- NOTE | 2022-02-14 04:14 | PC.NURSE ---
PT MAINTAINED ON PRESSURE SUPPORT VENT SETTINGS. PROPOFOL OFF SINCE 0800 ON 02/13. SBP UP TO 170'S AND CARDENE GTT TITRATED UP TO 7.5 MG/HR WITH GOOD EFFECT. AT START OF THIS SHIFT, PT WAS TACHYPNEIC AND RECEIVED ONE DOSE OF ATIVAN 0.5 MG IV PER ANTWON PA-C WITH GOOD EFFECT BUT ON AND OFF DURING THIS SHIFT HAS HAD TACHYPNEA WITH RESP RATE UP TO 30'S AND ALSO DIAPHORESIS. RECEIVED 2 DOSES OF FENTANYL 50 MCG IVP WITH GOOD EFFECT. ANTWON PA-C AT BEDSIDE. PT DESATS TO 80'S WITH INTERVENTIONS/REPOS BUT RECOVERS QUICKLY. TOLERATING TUBE FEEDS ORDERED. REMAINS ON INSULIN DRIP. SEE INSULIN FLOW SHEET FOR DETAILS BUT POC HAS BEEN 160-220 SINCE 1900. VITAL SIGNS STABLE. MONITOR: NSR, 70-80, NO ECTOPY. U/O IS GOOD.
--- NOTE | 2022-02-14 04:33 | PC.NURSE ---
ASSUMED CARE OF PT AT 1900. HAVE BEEN MONITORING POC BLOOD SUGARS Q1HR. FOR DETAILS PLEASE SEE POC FLOW SHEET. AT 2100, POC WAS 55. LABS DRAWN ORDERED AND THEN PT RECEIVED 1 AMP OF 50% DEXTROSE. POC CAME UP TO 130 FOR A HIGH AND HAS 60'S-70'S FOR PAST 4 HOURS. PT STATES SHE FEELS A LITTLE LIGHTHEADED WHEN POC IS LOW BUT NO OTHER SYMPTOMS NOTED. MAINTAINED NPO EXCEPT FOR A FEW SIPS OF WATER TO TAKE MEDS. OOB TO COMMODE WITH STAND BY ASSIST. PT IS STEADY ON HER FEET.
[2022-02-14 05:01] LABS: Glucose, Whole Blood 76 mg/dL (60-115)
[2022-02-14 06:02] LABS: Glucose, Whole Blood 78 mg/dL (60-115)
[2022-02-14] MEDS: Omeprazole 20 MG CAPSULE.DR PO (06:16)
[2022-02-14 07:08] LABS: Glucose, Whole Blood 70 mg/dL (60-115)
[2022-02-14 08:00] VITALS: BP 107/65; PULSE 60; RESP 20; TEMP 36.2; O2SAT 95
[2022-02-14] MEDS: Ascorbic Acid 500 MG TABLET PO (08:41)
[2022-02-14] MEDS: Cholecalciferol (Vitamin D3) 25 MCG TABLET 50 MCG PO (08:41)
[2022-02-14] MEDS: clonazePAM 1 MG TABLET PO ×3 (08:41→21:05)
[2022-02-14] MEDS: Sucralfate 1 GM TABLET PO ×2 (08:41→21:05)
[2022-02-14] MEDS: Lactulose 20 GM/30 ML SOLUTION 10 GM PO (08:42)
[2022-02-14] MEDS: UrsodioL 300 MG CAPSULE PO ×2 (08:42→21:03)
[2022-02-14] MEDS: Multivitamin TABLET 1 TAB PO (08:42)
[2022-02-14] MEDS: Dicyclomine HCl 10 MG CAPSULE 20 MG PO ×2 (08:44→21:05)
[2022-02-14 10:09] LABS: Glucose, Whole Blood 99 mg/dL (60-115)
--- NOTE | 2022-02-14 10:24 | PC.NURSE ---
This RN called to bedside by patient. Patient states I feel different . POC obtained and 99. Patient vague in describing symptoms but states its similar to a panic attack . VSS BP 106/69, HR 64, RR 14, 100% on RA. Ice pack placed to head per patient request and AM dose of Klonopin administered earlier. Dr Ng notified and will be rounding shortly. Patient reports symptoms improving.
--- NOTE | 2022-02-14 11:33 | P.PNIM_ITS ---
Subjective Subjective Date of Service: 02/14/22 Interval History: seen and examined this AM in the ICU has no complaints Review of Systems negative except HPI Physical Exam Vital Signs: Vital Signs: Last Vital Signs Temp 97.1 F 02/14/22 08:00 Pulse 60 02/14/22 08:00 Resp 20 02/14/22 08:00 BP 107/65 02/14/22 08:00 Pulse Ox 95 02/14/22 08:00 O2 Del Method 02/14/22 08:00 BMI result Body Mass Index 21.9 Const: Other: General - no acute distress, appears comfortable Cardiovascular - regular rate and rhythm, S1-S2 Lungs - normal respiratory effort, clear to auscultation bilaterally, no wheezing Abdomen - soft, nontender, no rebound or guarding Extremities - no edema bilaterally Neuro - awake and alert, no focal deficits Objective Data Active Medications Acetaminophen (Acetaminophen 325 Mg Tablet) 650 mg PO Q6H PRN PRN Reason: Pain, Mild (Pain Scale 1-3) Last Admin: 02/12/22 10:51 Dose: 650 mg Documented By: ARIEL Ascorbic Acid (Ascorbic Acid 500 Mg Tablet) 500 mg PO DAILY [facility] Last Admin: 02/14/22 08:41 Dose: 500 mg Documented By: MARCO A Atorvastatin Calcium (Atorvastatin Calcium 20 Mg Tablet) 20 mg PO DAILY [facility] Last Admin: 02/14/22 08:40 Dose: Not Given Documented By: MARCO A Non-Admin Reason: Patient Refused Clonazepam (Clonazepam 1 Mg Tablet) 1 mg PO TID [facility] Last Admin: 02/14/22 08:41 Dose: 1 mg Documented By: MARCO A Dextrose (Dextrose 50 % 25 Gm/50 Ml Syringe) 25 gm IVPUSH Q15M PRN PRN Reason: per Hypoglycemia Standing Ord. Last Admin: 02/13/22 21:32 Dose: 25 gm Documented By: HERIBERTO Dicyclomine HCl (Dicyclomine Hcl 10 Mg Capsule) 20 mg PO BID [facility] Last Admin: 02/14/22 08:44 Dose: 20 mg Documented By: MARCO A Diphenhydramine HCl (Diphenhydramine Hcl 25 Mg Tablet) 25 mg PO BEDTIME PRN PRN Reason: sleep Famotidine (Famotidine 20 Mg Tablet) 40 mg PO BEDTIME [facility] Last Admin: 02/13/22 21:52 Dose: 40 mg Documented By: HERIBERTO Glucagon (Glucagon,Human Recombinant 1 Mg/Ml Vial) 1 mg IVPUSH ONCE PRN PRN Reason: hypoglycemia below 55 Hydroxyzine HCl (Hydroxyzine Hcl 50 Mg Tablet) 50 mg PO BID PRN PRN Reason: Anxiety Lactulose (Lactulose 20 Gm/30 Ml Solution) 10 gm PO DAILY [facility] Last Admin: 02/14/22 08:42 Dose: 10 gm Documented By: MARCO A Multivitamins/Vitamin C (Multivitamin Tablet) 1 tab PO DAILY [facility] Last Admin: 02/14/22 08:42 Dose: 1 tab Documented By: MARCO A Omeprazole (Omeprazole 20 Mg Capsule.Dr) 20 mg PO DAILY@0630 [facility] Last Admin: 02/14/22 06:16 Dose: 20 mg Documented By: HERIBERTO Quetiapine Fumarate (Quetiapine Fumarate 50 Mg Tablet) 50 mg PO BID [facility] Last Admin: 02/14/22 08:40 Dose: Not Given Documented By: MARCO A Non-Admin Reason: Patient Refused Quetiapine Fumarate (Quetiapine Fumarate 400 Mg Tablet) 400 mg PO BEDTIME [facility] Last Admin: 02/13/22 23:27 Dose: Not Given Documented By: HERIBERTO Non-Admin Reason: Patient Refused Simethicone (Simethicone 80 Mg Tab.Chew) 80 mg PO Q6H PRN PRN Reason: Gas Sodium Chloride (0.9 % Sodium Chloride Flush 3 Ml Syringe) 3 ml IVFLUSH QSHIFT [facility] Last Admin: 02/14/22 08:47 Dose: 3 ml Documented By: MARCO A Sucralfate (Sucralfate 1 Gm Tablet) 1 gm PO BID [facility] Last Admin: 02/14/22 08:41 Dose: 1 gm Documented By: MARCO A Tramadol HCl (Tramadol Hcl 50 Mg Tablet) 50 mg PO Q12H PRN PRN Reason: Pain (Scale Score 4-6) Last Admin: 02/12/22 12:49 Dose: 50 mg Documented By: COTSAMUEL Ursodiol (Ursodiol 300 Mg Capsule) 300 mg PO BID [facility] Last Admin: 02/14/22 08:42 Dose: 300 mg Documented By: MARCO A Venlafaxine HCl (Venlafaxine Hcl Er 150 Mg Cap.Er.24h) 150 mg PO DAILY [facility] Last Admin: 02/14/22 08:41 Dose: Not Given Documented By: MARCO A Non-Admin Reason: Patient Refused Vitamin D (Cholecalciferol (Vitamin D3) 25 Mcg Tablet) 50 mcg PO DAILY [facility] Last Admin: 02/14/22 08:41 Dose: 50 mcg Documented By: MARCO A Ziprasidone (Ziprasidone 20 Mg Capsule) 20 mg PO BID [facility] Last Admin: 02/14/22 08:41 Dose: Not Given Documented By: MARCO A Non-Admin Reason: Patient Refused Zolpidem Tartrate (Zolpidem Tartrate 5 Mg Tablet) 5 mg PO BEDTIME PRN PRN Reason: sleep Labs CBC & Chem 7: 02/12/22 07:14 02/13/22 21:25 Labs: Laboratory Results - last 24 hr 02/13/22 02/13/22 02/13/22 15:08 15:46 15:46 Anion Gap Estim Creat Clear Calc Estimated GFR POC Glucose 72 Random Glucose Fasting Glucose Insulin Level Proinsulin Cancelled C-Peptide Cancelled Calcium Beta-Hydroxybutyrate/Acetoacetate Cancelled Random Cortisol 6.7 ACTH Insulin Autoantibody Cancelled 02/13/22 02/13/22 02/13/22 15:47 15:47 17:47 Anion Gap 13 Estim Creat Clear Calc 87.4 Estimated GFR > 60 POC Glucose 62 Random Glucose 97 Fasting Glucose Insulin Level 7 Proinsulin C-Peptide Calcium 9.0 D Beta-Hydroxybutyrate/Acetoacetate Random Cortisol ACTH Cancelled Insulin Autoantibody 02/13/22 02/13/22 02/13/22 18:11 19:01 20:06 Anion Gap Estim Creat Clear Calc Estimated GFR POC Glucose 61 59 L* 60 Random Glucose Fasting Glucose Insulin Level Proinsulin C-Peptide Calcium Beta-Hydroxybutyrate/Acetoacetate Random Cortisol ACTH Insulin Autoantibody 02/13/22 02/13/22 02/13/22 20:53 21:25 21:25 Anion Gap 13 Estim Creat Clear Calc 91.5 Estimated GFR > 60 POC Glucose 55 L* Random Glucose Fasting Glucose 88 Insulin Level 3 Proinsulin C-Peptide Calcium 8.7 Beta-Hydroxybutyrate/Acetoacetate Random Cortisol 4.4 ACTH Insulin Autoantibody 02/13/22 02/13/22 02/14/22 21:45 22:46 00:00 Anion Gap Estim Creat Clear Calc Estimated GFR POC Glucose 130 H 129 H 90 Random Glucose Fasting Glucose Insulin Level Proinsulin C-Peptide Calcium Beta-Hydroxybutyrate/Acetoacetate Random Cortisol ACTH Insulin Autoantibody 02/14/22 02/14/22 02/14/22 00:56 02:02 03:02 Anion Gap Estim Creat Clear Calc Estimated GFR POC Glucose 65 62 75 Random Glucose Fasting Glucose Insulin Level Proinsulin C-Peptide Calcium Beta-Hydroxybutyrate/Acetoacetate Random Cortisol ACTH Insulin Autoantibody 02/14/22 02/14/22 02/14/22 03:59 04:54 05:57 Anion Gap Estim Creat Clear Calc Estimated GFR POC Glucose 75 76 78 Random Glucose Fasting Glucose Insulin Level Proinsulin C-Peptide Calcium Beta-Hydroxybutyrate/Acetoacetate Random Cortisol ACTH Insulin Autoantibody 02/14/22 02/14/22 07:04 10:05 Anion Gap Estim Creat Clear Calc Estimated GFR POC Glucose 70 99 Random Glucose Fasting Glucose Insulin Level Proinsulin C-Peptide Calcium Beta-Hydroxybutyrate/Acetoacetate Random Cortisol ACTH Insulin Autoantibody Assessment and Plan (1) Hypoglycemia: Status: Acute Plan This is a 41 yo F with a prior history of DM (on orals + insulin, off meds >1 year per patients reported history), who is s/p bariatric surgery about 3-4 mo nths ago. She has had a long history (prior to her bariatric surgery) of hypoglyecmia which has now progressed to the point of causing syncope. She is admitted for work up. 1. Symptomatic hypoglycemia Prevoiusly diabetic, but off meds >1 year; also recent bariatric surgery Fasting test completed yesterday; POC were at 55, but serum glucose was in the 80s--- d/w Dr. Barrios from [facility] and unfortunately, due to sugars not being low enough in the serum -- test is invalid. also d/w Dr. Barrios re: cortisol levels which were only 4.4. Will do ACTH stim (cortisol prior to administration of 250mcg of cosyntropin and then 1 hour after) Will repeat test again today --> NPO, no IVF, q1h POC with repeat labs: ACTH, cortisol, BMP, beta hydroxybutyrate, C-peptide, insulin level, insulin antibody, proinsulin Sulfonurea screen sent previously nutrition consult 2. Mood continue baseline meds 3. s/p bariatric surgery outpatient f/u with her team Full Code DVT pptx, low risk -- early ambulation Quality Stroke Does the patient have a stroke diagnosis?: No VTE Prior VTE?: No VTE Risk Level:: Medical - low VTE Device Contraindication: Treatment Not Indicated VTE Drug Contraindication: Treatment Not Indicated
[2022-02-14 12:00] VITALS: BP 106/70; PULSE 62; RESP 20; TEMP 36.2; O2SAT 98
[2022-02-14] MEDS: Cosyntropin 0.25 MG VIAL IVPUSH (12:11)
[2022-02-14 12:27] LABS: Glucose, Whole Blood 57 mg/dL (60-115)
[2022-02-14 12:27] LABS: Glucose, Whole Blood 70 mg/dL (60-115)
[2022-02-14 13:09] LABS: Glucose, Whole Blood 68 mg/dL (60-115)
[2022-02-14 13:18] LABS: Cortisol Random 6.7 ug/dL
[2022-02-14 14:06] LABS: Glucose, Whole Blood 83 mg/dL (60-115)
[2022-02-14 15:15] LABS: Glucose, Whole Blood 85 mg/dL (60-115)
[2022-02-14 16:00] VITALS: BP 122/71; PULSE 74; RESP 18; TEMP 37.3; O2SAT 99
[2022-02-14 16:13] LABS: Glucose, Whole Blood 93 mg/dL (60-115)
[2022-02-14 17:06] LABS: Glucose, Whole Blood 99 mg/dL (60-115)
[2022-02-14 19:06] LABS: Glucose, Whole Blood 90 mg/dL (60-115)
[2022-02-14 19:58] LABS: Glucose, Whole Blood 88 mg/dL (60-115)
[2022-02-14 20:00] VITALS: BP 98/61; PULSE 78; RESP 18; TEMP 36.7; O2SAT 98
[2022-02-14 21:03] LABS: Glucose, Whole Blood 94 mg/dL (60-115)
[2022-02-14] MEDS: Famotidine 20 MG TABLET 40 MG PO (21:03)
[2022-02-14 23:10] LABS: Glucose, Whole Blood 99 mg/dL (60-115)
[2022-02-15 00:18] LABS: Glucose, Whole Blood 82 mg/dL (60-115)
[2022-02-15 02:11] LABS: Glucose, Whole Blood 79 mg/dL (60-115)
[2022-02-15 04:20] LABS: Glucose, Whole Blood 71 mg/dL (60-115)
[2022-02-15 07:09] LABS: Glucose, Whole Blood 78 mg/dL (60-115)
[2022-02-15 07:09] LABS: Glucose, Whole Blood 75 mg/dL (60-115)
[2022-02-15 08:00] VITALS: BP 96/52; PULSE 60; RESP 16; TEMP 36.8; O2SAT 98
[2022-02-15 09:09] LABS: Glucose, Whole Blood 61 mg/dL (60-115)
[2022-02-15] MEDS: Lactulose 20 GM/30 ML SOLUTION 10 GM PO (09:58)
[2022-02-15] MEDS: UrsodioL 300 MG CAPSULE PO ×2 (09:59→20:31)
[2022-02-15] MEDS: clonazePAM 1 MG TABLET PO ×2 (09:59→20:31)
[2022-02-15] MEDS: Dicyclomine HCl 10 MG CAPSULE 20 MG PO ×2 (09:59→20:31)
[2022-02-15] MEDS: Atorvastatin Calcium 20 MG TABLET PO (09:59)
[2022-02-15] MEDS: Ziprasidone 20 MG CAPSULE PO ×2 (09:59→20:31)
[2022-02-15] MEDS: Ascorbic Acid 500 MG TABLET PO (09:59)
[2022-02-15] MEDS: Cholecalciferol (Vitamin D3) 25 MCG TABLET 50 MCG PO (09:59)
[2022-02-15] MEDS: Sucralfate 1 GM TABLET PO ×2 (09:59→20:31)
[2022-02-15] MEDS: Multivitamin TABLET 1 TAB PO (10:00)
[2022-02-15] MEDS: 0.9 % Sodium Chloride Flush 3 ML SYRINGE IVFLUSH ×2 (10:00→18:16)
--- NOTE | 2022-02-15 10:23 | MHC.CM.PN ---
Pt downgraded to MS: continues w/ hourly BG monitoring and testing for insulin issues: Pt is expected to return to home with family support and outpt followup. CM to follow
--- NOTE | 2022-02-15 10:38 | MHC.CLN ---
DIET TEACHING COMPLETED PER MD-SEE TEACHING RECORD
[2022-02-15 10:42] LABS: Anion Gap 11 (12-20); Blood Urea Nitrogen 8 mg/dL (9-16); Carbon Dioxide 27 mmol/L (22-29); Chloride 108 mmol/L (96-108); Creatinine Clr Calc Pharmacy 88.7; Estimated Glomerular Filt Rate > 60; Glucose Fasting 86 mg/dL (60-99); Potassium 4.5 mmol/L (3.3-5.1); Sodium 141 mmol/L (135-145)
[2022-02-15 11:13] LABS: Insulin 4 uU/mL (2-29)
[2022-02-15 12:00] VITALS: BP 107/53; PULSE 77; RESP 18; TEMP 36.8; O2SAT 99
[2022-02-15 12:05] LABS: Glucose, Whole Blood 66 mg/dL (60-115)
--- NOTE | 2022-02-15 12:13 | P.PNIM_ITS ---
Subjective Subjective Date of Service: 02/15/22 Interval History: cc: hypglycemia interval history:hungry Respiratory Respiratory: Reports no additional respiratory complaints Gastrointestinal Gastrointestinal: Reports no additional gastrointestinal complaints Physical Exam Vital Signs: Vital Signs: Last Vital Signs Temp 98.2 F 02/15/22 08:00 Pulse 60 02/15/22 08:00 Resp 16 02/15/22 08:00 BP 96/52 L 02/15/22 08:00 Pulse Ox 98 02/15/22 08:00 O2 Del Method 02/15/22 08:00 BMI result Body Mass Index 21.9 General: AO X 3, no acute distress Resp: CTA bilateral, no accessory muscles used CVS: S1,S2,RRR GI: soft, non tender, non distended Neuro: motor grossly intact, alert Psych: appropriate affect, appropriate insight Objective Data Active Medications Acetaminophen (Acetaminophen 325 Mg Tablet) 650 mg PO Q6H PRN PRN Reason: Pain, Mild (Pain Scale 1-3) Last Admin: 02/12/22 10:51 Dose: 650 mg Documented By: ARIEL Ascorbic Acid (Ascorbic Acid 500 Mg Tablet) 500 mg PO DAILY [facility] Last Admin: 02/15/22 09:59 Dose: 500 mg Documented By: JERONIMO Atorvastatin Calcium (Atorvastatin Calcium 20 Mg Tablet) 20 mg PO DAILY [facility] Last Admin: 02/15/22 09:59 Dose: 20 mg Documented By: JERONIMO Clonazepam (Clonazepam 1 Mg Tablet) 1 mg PO TID [facility] Last Admin: 02/15/22 09:59 Dose: 1 mg Documented By: JERONIMO Dextrose (Dextrose 50 % 25 Gm/50 Ml Syringe) 25 gm IVPUSH Q15M PRN PRN Reason: per Hypoglycemia Standing Ord. Last Admin: 02/13/22 21:32 Dose: 25 gm Documented By: HERIBERTO Dicyclomine HCl (Dicyclomine Hcl 10 Mg Capsule) 20 mg PO BID [facility] Last Admin: 02/15/22 09:59 Dose: 20 mg Documented By: JERONIMO Diphenhydramine HCl (Diphenhydramine Hcl 25 Mg Tablet) 25 mg PO BEDTIME PRN PRN Reason: sleep Famotidine (Famotidine 20 Mg Tablet) 40 mg PO BEDTIME [facility] Last Admin: 02/14/22 21:03 Dose: 40 mg Documented By: EDNA Glucagon (Glucagon,Human Recombinant 1 Mg/Ml Vial) 1 mg IVPUSH ONCE PRN PRN Reason: hypoglycemia below 55 Hydroxyzine HCl (Hydroxyzine Hcl 50 Mg Tablet) 50 mg PO BID PRN PRN Reason: Anxiety Lactulose (Lactulose 20 Gm/30 Ml Solution) 10 gm PO DAILY [facility] Last Admin: 02/15/22 09:58 Dose: 10 gm Documented By: JERONIMO Multivitamins/Vitamin C (Multivitamin Tablet) 1 tab PO DAILY [facility] Last Admin: 02/15/22 10:00 Dose: 1 tab Documented By: JERONIMO Omeprazole (Omeprazole 20 Mg Capsule.Dr) 20 mg PO DAILY@0630 [facility] Last Admin: 02/15/22 06:34 Dose: Not Given Documented By: MICHELLE Non-Admin Reason: Patient Refused Quetiapine Fumarate (Quetiapine Fumarate 50 Mg Tablet) 50 mg PO BID [facility] Last Admin: 02/15/22 10:07 Dose: Not Given Documented By: JERONIMO Non-Admin Reason: Patient Refused Quetiapine Fumarate (Quetiapine Fumarate 400 Mg Tablet) 400 mg PO BEDTIME [facility] Last Admin: 02/14/22 21:04 Dose: Not Given Documented By: EDNA Non-Admin Reason: Patient Refused Simethicone (Simethicone 80 Mg Tab.Chew) 80 mg PO Q6H PRN PRN Reason: Gas Sodium Chloride (0.9 % Sodium Chloride Flush 3 Ml Syringe) 3 ml IVFLUSH QSHIFT [facility] Last Admin: 02/15/22 10:00 Dose: 3 ml Documented By: JERONIMO Sucralfate (Sucralfate 1 Gm Tablet) 1 gm PO BID [facility] Last Admin: 02/15/22 09:59 Dose: 1 gm Documented By: JERONIMO Tramadol HCl (Tramadol Hcl 50 Mg Tablet) 50 mg PO Q12H PRN PRN Reason: Pain (Scale Score 4-6) Last Admin: 02/12/22 12:49 Dose: 50 mg Documented By: COTEMA Ursodiol (Ursodiol 300 Mg Capsule) 300 mg PO BID [facility] Last Admin: 02/15/22 09:59 Dose: 300 mg Documented By: JERONIMO Venlafaxine HCl (Venlafaxine Hcl Er 150 Mg Cap.Er.24h) 150 mg PO DAILY [facility] Last Admin: 02/15/22 10:10 Dose: Not Given Documented By: JERONIMO Non-Admin Reason: Patient Refused Vitamin D (Cholecalciferol (Vitamin D3) 25 Mcg Tablet) 50 mcg PO DAILY [facility] Last Admin: 02/15/22 09:59 Dose: 50 mcg Documented By: JERONIMO Ziprasidone (Ziprasidone 20 Mg Capsule) 20 mg PO BID [facility] Last Admin: 02/15/22 09:59 Dose: 20 mg Documented By: JERONIMO Zolpidem Tartrate (Zolpidem Tartrate 5 Mg Tablet) 5 mg PO BEDTIME PRN PRN Reason: sleep Labs CBC & Chem 7: 02/12/22 07:14 02/15/22 10:00 Labs: Laboratory Results - last 24 hr 02/14/22 02/14/22 02/14/22 12:03 12:17 12:21 Anion Gap Estim Creat Clear Calc Estimated GFR POC Glucose 57 L* 70 Fasting Glucose Insulin Level Proinsulin C-Peptide Calcium Beta-Hydroxybutyrate/Acetoacetate Random Cortisol 6.7 ACTH Insulin Autoantibody 02/14/22 02/14/22 02/14/22 13:06 13:22 14:03 Anion Gap Estim Creat Clear Calc Estimated GFR POC Glucose 68 83 Fasting Glucose Insulin Level Proinsulin C-Peptide Calcium Beta-Hydroxybutyrate/Acetoacetate Random Cortisol 16.0 ACTH Insulin Autoantibody 02/14/22 02/14/22 02/14/22 15:11 16:09 17:03 Anion Gap Estim Creat Clear Calc Estimated GFR POC Glucose 85 93 99 Fasting Glucose Insulin Level Proinsulin C-Peptide Calcium Beta-Hydroxybutyrate/Acetoacetate Random Cortisol ACTH Insulin Autoantibody 02/14/22 02/14/22 02/14/22 19:01 19:55 21:00 Anion Gap Estim Creat Clear Calc Estimated GFR POC Glucose 90 88 94 Fasting Glucose Insulin Level Proinsulin C-Peptide Calcium Beta-Hydroxybutyrate/Acetoacetate Random Cortisol ACTH Insulin Autoantibody 02/14/22 02/15/22 02/15/22 23:07 00:14 02:08 Anion Gap Estim Creat Clear Calc Estimated GFR POC Glucose 99 82 79 Fasting Glucose Insulin Level Proinsulin C-Peptide Calcium Beta-Hydroxybutyrate/Acetoacetate Random Cortisol ACTH Insulin Autoantibody 02/15/22 02/15/22 02/15/22 04:16 06:04 07:06 Anion Gap Estim Creat Clear Calc Estimated GFR POC Glucose 71 75 78 Fasting Glucose Insulin Level Proinsulin C-Peptide Calcium Beta-Hydroxybutyrate/Acetoacetate Random Cortisol ACTH Insulin Autoantibody 02/15/22 02/15/22 02/15/22 09:05 10:00 10:00 Anion Gap 11 L Estim Creat Clear Calc 88.7 Estimated GFR > 60 POC Glucose 61 Fasting Glucose 86 Insulin Level 4 Proinsulin C-Peptide Calcium 9.0 Beta-Hydroxybutyrate/Acetoacetate Random Cortisol ACTH Cancelled Insulin Autoantibody 02/15/22 02/15/22 02/15/22 10:00 10:00 12:02 Anion Gap Estim Creat Clear Calc Estimated GFR POC Glucose 66 Fasting Glucose Insulin Level Proinsulin Cancelled C-Peptide Cancelled Calcium Beta-Hydroxybutyrate/Acetoacetate Cancelled Random Cortisol Cancelled ACTH Insulin Autoantibody Cancelled Assessment and Plan (1) Hypoglycemia: Status: Acute Plan This is a 41 yo F with a prior history of DM (on orals + insulin, off meds >1 year per patients reported history), who is s/p bariatric surgery about 3-4 months ago. She has had a long history (prior to her bariatric surgery) of hypoglyecmia which has now progressed to the point of causing syncope. She is admitted for work up. 1. Symptomatic hypoglycemia Prevoiusly diabetic, but off meds >1 year; also recent bariatric surgery acth stim negative ongoing Fasting test continue NPO, no IVF, q1h POC with repeat labs when hypoglycemic: ACTH, cortisol, BMP, beta hydroxybutyrate, C-peptide, insulin level, insulin antibody, proinsulin Sulfonurea screen sent previously nutrition consult 2. Mood continue baseline meds 3. s/p bariatric surgery outpatient f/u with her team Full Code DVT pptx, low risk -- early ambulation Quality Stroke Does the patient have a stroke diagnosis?: No VTE Prior VTE?: No VTE Risk Level:: Medical - low VTE Device Contraindication: Treatment Not Indicated VTE Drug Contraindication: Treatment Not Indicated
[2022-02-15 13:30] LABS: Anion Gap 11 (12-20); Blood Urea Nitrogen 7 mg/dL (9-16); Calcium 8.9 mg/dL (8.4-10.2); Carbon Dioxide 26 mmol/L (22-29); Chloride 107 mmol/L (96-108); Creatinine Clr Calc Pharmacy 91.5; Estimated Glomerular Filt Rate > 60; Glucose Fasting 84 mg/dL (60-99); Potassium 3.9 mmol/L (3.3-5.1); Sodium 140 mmol/L (135-145)
[2022-02-15 15:11] LABS: Glucose, Whole Blood 94 mg/dL (60-115)
[2022-02-15 16:00] VITALS: BP 94/55; PULSE 66; RESP 16; TEMP 37.2; O2SAT 100
[2022-02-15 17:09] LABS: Glucose, Whole Blood 78 mg/dL (60-115)
[2022-02-15 19:09] LABS: Glucose, Whole Blood 80 mg/dL (60-115)
[2022-02-15 19:21] LABS: Adrenocorticotropic Hormone 52 pg/mL (6-50)
[2022-02-15 20:00] VITALS: BP 105/60; PULSE 90; RESP 18; TEMP 37.1; O2SAT 98
[2022-02-15] MEDS: Famotidine 20 MG TABLET 40 MG PO (20:31)
[2022-02-15 21:08] LABS: Glucose, Whole Blood 60 mg/dL (60-115)
[2022-02-15 22:03] LABS: Anion Gap 11 (12-20); Blood Urea Nitrogen 10 mg/dL (9-16); Calcium 8.7 mg/dL (8.4-10.2); Carbon Dioxide 24 mmol/L (22-29); Chloride 106 mmol/L (96-108); Estimated Glomerular Filt Rate > 60; Glucose Random 87 mg/dL (60-115); Potassium 4.1 mmol/L (3.3-5.1); Sodium 137 mmol/L (135-145)
[2022-02-15 23:07] LABS: Glucose, Whole Blood 125 mg/dL (60-115)
[2022-02-16] VITALS: BP 97/57; PULSE 55; RESP 17; TEMP 37; O2SAT 100
[2022-02-16 01:06] LABS: Glucose, Whole Blood 79 mg/dL (60-115)
[2022-02-16] MEDS: 0.9 % Sodium Chloride Flush 3 ML SYRINGE IVFLUSH ×2 (01:12→08:30)
[2022-02-16 02:48] LABS: Insulin 4 uU/mL (2-29)
[2022-02-16 03:01] LABS: Glucose, Whole Blood 73 mg/dL (60-115)
[2022-02-16 04:00] VITALS: BP 95/52; PULSE 55; RESP 15
[2022-02-16 05:05] LABS: Glucose, Whole Blood 81 mg/dL (60-115)
[2022-02-16 05:08] LABS: Cortisol Random 7.6 ug/dL
[2022-02-16 08:00] VITALS: BP 101/66; PULSE 56; RESP 18; TEMP 36.8; O2SAT 100
[2022-02-16 08:06] LABS: Glucose, Whole Blood 80 mg/dL (60-115)
[2022-02-16] MEDS: clonazePAM 1 MG TABLET PO (08:33)
[2022-02-16] MEDS: Ascorbic Acid 500 MG TABLET PO (08:34)
[2022-02-16] MEDS: Dicyclomine HCl 10 MG CAPSULE 20 MG PO (08:34)
[2022-02-16] MEDS: UrsodioL 300 MG CAPSULE PO (08:35)
--- NOTE | 2022-02-16 09:06 | PM.DS ---
DS: Providers Provider Date of Service: 02/16/22 Date of admission: 02/13/22 12:28 Primary care physician: Deirdre Cantrell MD DS: Diagnosis Discharge Diagnosis (1) Hypoglycemia: Status: Acute DS: Summary Hospital Course Hospital Course: from initial hpi: Chief Complaint: Hyperglycemia Palestinian-speaking only, history is obtained with the help of an community service officer coordinator. This is a 41-year-old female past medical history of hypertension, diabetes off meds since her gastric sleeve surgery in September during with resultant 50 lb weight loss and post gastrectomy malabsorption who presents to the hospital with complaints of abdominal pain, and hypoglycemia.? Patient reports that ever since her gastric sleeve surgery she has had multiple episodes of hypoglycemia to the point that she passes out.? She says that sometimes she has prodromal symptoms before fainting but sometimes she does not and that scares her.? She reports that her sugar was in the 30s.? She has nausea with no vomiting, no abdominal pain, no diarrhea constipation, no urinary symptoms, no chest pain, no cough, no shortness of breath.? No lower extremity edema.? Patient seems to be frustrated and angry about her situation and reports that she wishes she knew why she was hypoglycemic all the time.? She reports that she does not take any diabetic medications.? And has been hypoglycemic almost daily with her sugar not going above 80.? She reports that she faints 3-4 times per week. On arrival to the ED patient hemodynamically stable with no significant abnormal vitals Labs reviewed showed a glucose of 34 Patient placed on IV fluid with glucose and will be admitted for further management given the persistent hypoglycemia despite being on D5 fluid hospital course: Patient was admitted for recurrent symptomatic hypoglycemic episodes. Workup including acth stimulation test, fasting glucose were negative. 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 Patient's sugars have remained stable, she should have small frequent meals, obtain glucagon for emergencies, monitor sugars and symptoms closely as outpatient. Time Spent with Patient Time attestation: Total time spent providing and/or coordinating discharge services: Discharge coordination time: Greater than 30 minutes Quality: Safe Use of Opioids Does Pt have an Active Cancer Diagnosis on the Problem List?: No Quality: Stroke Does the patient have a stroke diagnosis?: No Physical Exam Vital Signs: Vital Signs: Last Vital Signs Temp 98.2 F 02/16/22 08:00 Pulse 56 07/21/22 08:00 Resp 18 02/16/22 08:00 BP 101/66 02/16/22 08:00 Pulse Ox 100 02/16/22 08:00 O2 Del Method 02/16/22 08:00 BMI result Body Mass Index 21.9 General: AO X 3, no acute distress Resp: CTA bilateral, no accessory muscles used CVS: S1,S2,RRR GI: soft, non tender, non distended Neuro: motor grossly intact, alert Psych: appropriate affect, appropriate insight DS: Data Data Completed and Pending Labs on day of discharge: Laboratory Results - last 24 hr 02/13/22 02/15/22 02/15/22 21:25 09:05 10:00 Sodium 141 Potassium 4.5 Chloride 108 Carbon Dioxide 27 Anion Gap 11 L BUN 8 L D Creatinine 0.66 Estim Creat Clear Calc 88.7 Estimated GFR > 60 POC Glucose 61 Random Glucose Fasting Glucose 86 Insulin Level 4 Proinsulin C-Peptide Calcium 9.0 Beta-Hydroxybutyrate/Acetoacetate Random Cortisol ACTH 52 H Insulin Autoantibody 02/15/22 02/15/22 02/15/22 10:00 10:00 10:00 Sodium Potassium Chloride Carbon Dioxide Anion Gap BUN Creatinine Estim Creat Clear Calc Estimated GFR POC Glucose Random Glucose Fasting Glucose Insulin Level Proinsulin Cancelled C-Peptide Cancelled Calcium Beta-Hydroxybutyrate/Acetoacetate Cancelled Random Cortisol Cancelled ACTH Cancelled Insulin Autoantibody Cancelled 02/15/22 02/15/22 02/15/22 12:02 13:10 15:07 Sodium 140 Potassium 3.9 Chloride 107 Carbon Dioxide 26 Anion Gap 11 L BUN 7 L Creatinine 0.64 Estim Creat Clear Calc 91.5 Estimated GFR > 60 POC Glucose 66 94 Random Glucose Fasting Glucose 84 Insulin Level Proinsulin C-Peptide Calcium 8.9 Beta-Hydroxybutyrate/Acetoacetate Random Cortisol ACTH Insulin Autoantibody 02/15/22 02/15/22 02/15/22 17:05 19:04 21:03 Sodium Potassium Chloride Carbon Dioxide Anion Gap BUN Creatinine Estim Creat Clear Calc Estimated GFR POC Glucose 78 80 60 Random Glucose Fasting Glucose Insulin Level Proinsulin C-Peptide Calcium Beta-Hydroxybutyrate/Acetoacetate Random Cortisol ACTH Insulin Autoantibody 02/15/22 02/15/22 02/16/22 21:43 23:03 01:03 Sodium 137 Potassium 4.1 Chloride 106 Carbon Dioxide 24 Anion Gap 11 L BUN 10 Creatinine 0.65 Estim Creat Clear Calc 90.0 Estimated GFR > 60 POC Glucose 125 H 79 Random Glucose 87 Fasting Glucose Insulin Level Proinsulin C-Peptide Calcium 8.7 Beta-Hydroxybutyrate/Acetoacetate Random Cortisol ACTH Insulin Autoantibody 02/16/22 02/16/22 02/16/22 01:59 01:59 02:57 Sodium Potassium Chloride Carbon Dioxide Anion Gap BUN Creatinine Estim Creat Clear Calc Estimated GFR POC Glucose 73 Random Glucose Fasting Glucose Insulin Level 4 Proinsulin C-Peptide Calcium Beta-Hydroxybutyrate/Acetoacetate Random Cortisol 7.6 ACTH Insulin Autoantibody 02/16/22 02/16/22 05:01 08:02 Sodium Potassium Chloride Carbon Dioxide Anion Gap BUN Creatinine Estim Creat Clear Calc Estimated GFR POC Glucose 81 80 Random Glucose Fasting Glucose Insulin Level Proinsulin C-Peptide Calcium Beta-Hydroxybutyrate/Acetoacetate Random Cortisol ACTH Insulin Autoantibody Discharge Plan Discharge Patient Disposition: Home, Self-Care Discharge Diagnosis: hypoglycemia Referrals: Po,Deirdre Raymundo MD [Primary Care Provider] - 1 Week Discharge Medications: New GlucaGen HypoKit 1 mg Recon Soln 1 mg IVPUSH ONCE PRN (Reason: hypoglycemia below 55) Qty: 1 0RF Continued sucralfate 1 gram tablet 1 g PO BID Qty: 180 3RF vitamin B complex [B Complex-Vitamin B12] Tablet 1 tab PO DAILY Qty: 30 6RF Rx Instructions: 1,000mcg dose daily (DME) blood pressure monitor [Blood Pressure Kit] Kit See Rx Instructions .Route Qty: 1 0RF Rx Instructions: As directed (DME) blood-glucose meter [FreeStyle Lite Meter] Kit See Rx Instructions .ROUTE .MEDSUPPLY Qty: 1 0RF Rx Instructions: As directed (DME) lancets [FreeStyle Lancets] 28 gauge misc See Rx Instructions .ROUTE .MEDSUPPLY Qty: 100 3RF Rx Instructions: As directed check BS QD (DME) FreeStyle Lite Strips Strip See Rx Instructions .ROUTE .MEDSUPPLY Qty: 100 3RF Rx Instructions: As directed check the BS QD atorvastatin 20 mg tablet 20 mg PO DAILY Qty: 90 3RF (DME) CANE See Rx Instructions .Route .MEDSUPPLY Qty: 1 0RF Rx Instructions: As directed (DME) WRIST BRACE See Rx Instructions .Route .MEDSUPPLY Qty: 1 0RF Rx Instructions: As directed (DME) BATH CHAIR See Rx Instructions .Route .MEDSUPPLY Qty: 1 0RF Rx Instructions: As directed (DME) LIFELINE ALERT SYSTEM See Rx Instructions .Route .MEDSUPPLY Qty: 1 0RF Rx Instructions: As directed diphenhydramine HCl [Benadryl] 25 mg capsule 25 mg PO BEDTIME PRN (Reason: sleep) Qty: 30 0RF dicyclomine 20 mg tablet 20 mg PO BID Qty: 60 0RF venlafaxine 150 mg capsule,extended release 24hr 1 cap PO DAILY quetiapine 50 mg tablet 1 tab PO BID famotidine 40 mg tablet 1 tab PO BEDTIME hydroxyzine pamoate 50 mg capsule 1 cap PO BID PRN (Reason: Anxiety) acetaminophen 500 mg tablet 2 tab PO Q8H ondansetron 4 mg tablet,disintegrating 1 tab PO Q8H PRN (Reason: nausea) cholecalciferol (vitamin D3) [Vitamin D3] 50 mcg (2,000 unit) tablet 1 tab PO DAILY Linzess 290 mcg capsule 1 cap PO DAILY tramadol 50 mg tablet 50 mg PO Q12H PRN (Reason: Pain (Scale Score 4-6)) pantoprazole 40 mg tablet,delayed release (DR/EC) 40 mg PO DAILY@0630 zolpidem 10 mg tablet 10 mg PO BEDTIME PRN (Reason: Sleep) lactulose 10 gram/15 mL solution 10 g PO DAILY ascorbate calcium (vitamin C) 500 mg tablet 500 mg PO DAILY ziprasidone HCl 20 mg capsule 20 mg PO BID quetiapine 400 mg tablet 400 mg PO BEDTIME ursodiol 300 mg capsule 300 mg PO BID simethicone 80 mg tablet,chewable 80 mg PO Q6H PRN (Reason: GAS) clonazepam 1 mg tablet 1 mg PO TID Discharge Orders: Discharge Order (Routine); Ordered 02/16/22 Ordered By: Travis Dee Diet: Advance to usual diet Activity on Discharge: As tolerated Stand Alone Forms: Patient Portal Discharge page Care Plan Goals: avoid hypoglycemia Health Concerns: hypoglycemia Plan of Treatment: frequent meals, glucagon for emergencies, keep oral sugars onhand for mild hypoglycemic events Assessment: see above
[2022-02-16 10:17] LABS: Glucose, Whole Blood 82 mg/dL (60-115)
--- NOTE | 2022-02-16 10:32 | PC.NURSE ---
IV X 2 REMOVED, HYPOGLYCEMIA EDUCATION PROVIDED, DISCHARGE PAPERWORK REVIEWED. PATIENT VERBALIZES UNDERSTANDING. OFF UNIT VIA WHEELCHAIR TO MAIN ENTRANCE FOR PICKUP AT 1032.
[2022-02-16 17:37] LABS: C Peptide 0.87 ng/mL (0.80-3.85)
[2022-02-18 09:06] LABS: C Peptide 0.94 ng/mL (0.80-3.85)
[2022-02-19 01:12] LABS: Beta-Hydroxybutyrate 0.16 mmol/L
[2022-02-20 15:32] LABS: Chlorpropamide None Detected; Glimepiride None Detected; Glipizide None Detected; Glyburide None Detected; Nateglinide None Detected; Pioglitazone None Detected; Repaglinide None Detected; Rosiglitazone None Detected; Tolazamide None Detected; Tolbutamide None Detected
[2022-02-21 19:22] LABS: Insulin Auto Antibody <0.4 U/mL (<0.4)
[2022-02-23 20:56] LABS: Insulin Auto Antibody <0.4 U/mL (<0.4)
[2022-02-25 04:02] LABS: Proinsulin 4.8 pmol/L (< OR = 18.8)
== END 2022-02-16 10:32 | disposition home or self-care (01) | DRG 420 ==
LOC: HO.ED 17:59 → HO.EDOVER 20:01 → HO.S3 02-12 10:37 → HO.ICU 02-13 16:38
PROVIDERS: Family Medicine; Physician Assistant; Admitting Provider Internal Medicine; Emergency Provider Emergency Medicine; PCP Internal Medicine; Visit Provider Internal Medicine
DX: E11.649 Type 2 diabetes mellitus with hypoglycemia without coma (principal); K91.2 Postsurgical malabsorption, not elsewhere classified; E11.65 Type 2 diabetes mellitus with hyperglycemia; F32.A Depression, unspecified; F41.9 Anxiety disorder, unspecified; K21.9 Gastro-esophageal reflux disease without esophagitis; L65.9 Nonscarring hair loss, unspecified; Z98.84 Bariatric surgery status; Z20.822 Contact with and (suspected) exposure to COVID-19; Z98.51 Tubal ligation status; Z90.710 Acquired absence of both cervix and uterus; Z79.899 Other long term (current) drug therapy
CPT/HCPCS: 36415; 74018; 80048; 80076; 80337; 81003; 81025; 82010; 82024; 82533; 82947; 83036; 83525; 83690; 84206; 84681; 85025; 86337; 87635; 93005; 96365; 96366; 96375; 99220; 99285; J0834

== ENCOUNTER 2022-02-23 09:46 | Outpatient (REF) | payer OTHER, SELFPAY ==
--- NOTE | 2022-02-23 09:50 | EMG_ITS ---
Left median and ulnar motor and sensory studies were performed, left radial sensory study was performed, and paraspinal muscles were tested with a needle. IMPRESSION: Mild left median neuropathy across carpal tunnel. MD KELVIN Alvarado/WINIFRED / [id number]
== END 2022-02-23 09:47 | disposition home or self-care (01) ==
LOC: HO.NEURO 09:46
PROVIDERS: PCP Internal Medicine; Visit Provider Internal Medicine
DX: R20.0 Anesthesia of skin (principal)
CPT/HCPCS: 95886; 95909

== ENCOUNTER 2022-03-06 13:30 | Emergency (ER) | payer OTHER, SELFPAY ==
--- NOTE | ~2022-03-06 | XR_ITS ---
EXAMINATION: XR CERVICAL SPINE CLINICAL INFORMATION: Fall with neck pain COMPARISON: 07/26/2015 TECHNIQUE: 3 views of the cervical spine were obtained. FINDINGS: There is mild straightening of the cervical spine similar to prior. There are no prevertebral soft tissue or bony abnormalities demonstrated. No compression fractures or subluxations are identified. Alignment is maintained at the atlanto-axial articulation. The disc spaces are preserved. No endplate changes are seen. The prevertebral soft tissues are normal. XR/XR cervical spine 3V IMPRESSION: Unremarkable examination.
[2022-03-06 14:27] VITALS: BP 109/68; PULSE 56; RESP 18; O2SAT 99; BMI 21.9
[2022-03-06 14:46] LABS: Glucose, Whole Blood 71 mg/dL (60-115)
--- NOTE | 2022-03-06 20:18 | ED.SYNCOPE ---
HPI - Syncope General Chief Complaint: Syncope Stated Complaint: Fall T-9/Head pain/Back pain/Shoulder pain Time Seen by Provider: 03/06/22 20:17 Source: patient Mode of arrival: ambulatory Limitations: language barrier History of Present Illness HPI narrative: History of passing out due to low blood sugars. patient states she was admitted for hypoglycemia. She had a gastric sleeve placed and has had moments of hypoglycemia with passing out. patient states she is not eating right, she has a barium swallowing test for the end of the month. She last passed out 10 days ago. MD complaint: loss of consciousness and felt faint Onset (ago): month(s) Prodromal symptoms: none Injuries sustained associated with event: neck Current symptoms: other (neck pain) Treatments prior to arrival: none Related Data Home Medications Medication Instructions Recorded Confirmed lactulose 10 gram/15 mL oral 10 g PO DAILY 08/27/20 02/22/22 solution zolpidem 10 mg tablet 10 mg PO BEDTIME PRN Sleep 08/27/20 02/22/22 ascorbate calcium (vitamin C) 500 500 mg PO DAILY 09/08/21 02/22/22 mg tablet quetiapine 50 mg tablet 1 tab PO BID 09/22/21 02/22/22 venlafaxine 150 mg 1 cap PO DAILY 09/22/21 02/22/22 capsule,extended release 24 hr clonazepam 1 mg tablet 1 mg PO TID 10/26/21 02/22/22 quetiapine 400 mg tablet 400 mg PO BEDTIME 10/26/21 02/22/22 simethicone 80 mg chewable tablet 80 mg PO Q6H PRN GAS 10/26/21 02/22/22 ursodiol 300 mg capsule 300 mg PO BID 10/26/21 02/22/22 ziprasidone HCl 20 mg capsule 20 mg PO BID 10/26/21 02/22/22 acetaminophen 500 mg tablet 2 tab PO Q8H 02/11/22 02/22/22 cholecalciferol (vitamin D3) 50 1 tab PO DAILY 02/11/22 02/22/22 mcg (2,000 unit) tablet (Vitamin D3) famotidine 40 mg tablet 1 tab PO BEDTIME 02/11/22 02/22/22 hydroxyzine pamoate 50 mg capsule 1 cap PO BID PRN Anxiety 02/11/22 02/22/22 linaclotide 290 mcg capsule 1 cap PO DAILY 02/11/22 02/22/22 (Linzess) ondansetron 4 mg disintegrating 1 tab PO Q8H PRN nausea 02/11/22 02/22/22 tablet pantoprazole 40 mg tablet,delayed 40 mg PO DAILY@0630 02/11/22 02/22/22 release tramadol 50 mg tablet 50 mg PO Q12H PRN Pain (Scale 02/11/22 02/22/22 Score 4-6) Previous Rx's Medication Instructions Recorded vitamin B complex (B 1 tab PO DAILY #30 tabs 07/13/21 Complex-Vitamin B12 tablet) blood pressure monitor (Blood #1 ea 10/31/21 Pressure Kit) blood-glucose meter (FreeStyle #1 ea 10/31/21 Lite Meter kit) lancets 28 gauge (FreeStyle #100 ea 10/31/21 Lancets) atorvastatin 20 mg tablet 20 mg PO DAILY #90 tabs 01/27/22 BATH CHAIR #1 ea 01/31/22 CANE #1 ea 01/31/22 LIFELINE ALERT SYSTEM #1 ea 01/31/22 WRIST BRACE #1 ea 01/31/22 glucagon 1 mg solution for 1 mg IVPUSH ONCE PRN hypoglycemia 02/16/22 injection (GlucaGen HypoKit) below 55 #1 ea ALCOHOL PADS #100 ea 02/21/22 diphenhydramine HCl 25 mg capsule 25 mg PO BEDTIME PRN sleep #30 caps 02/21/22 (Benadryl) sucralfate 1 gram tablet 1 g PO BID #180 tabs 02/21/22 blood sugar diagnostic (FreeStyle #100 ea 02/22/22 Lite Strips) dicyclomine 20 mg tablet 20 mg PO BID #60 tabs 02/27/22 cyclobenzaprine 10 mg tablet 10 mg PO TID #10 tabs 03/06/22 Allergies Allergy/AdvReac Type Severity Reaction Status Date / Time tomato [TOMATO] Allergy Mild HIVES Verified 03/06/22 14:26 DIFFICULTY BREATHING hydrocodone [HYDROCODONE] Allergy Unknown RASH, Verified 03/06/22 14:26 AIRWAY CLOSES ibuprofen [From MOTRIN] Allergy Unknown STOMACH Verified 03/06/22 14:26 UPSET, vomiting trazodone [TRAZODONE] Allergy Unknown UNKNOWN, Verified 03/06/22 14:26 stomach upset black pepper [BLACK PEPPER] AdvReac Severe DIFFICULTY Verified 03/06/22 14:26 BREATHING, hives Review of Systems Constitutional: Constitutional: Reports no additional constitutional complaints Eyes: Eyes: Reports no additional eye complaints ENT: Denies dizziness Cardiovascular: Cardiovascular: Reports no additional cardiovascular complaints Respiratory: Respiratory: Reports as per HPI Gastrointestinal: Gastrointestinal: Reports no additional gastrointestinal complaints Genitourinary: Genitourinary: Reports no additional female genitourinary complaints Musculoskeletal: Musculoskeletal: Reports no additional musculoskeletal complaints Integumentary/Breasts: Skin/Breast: Denies rash Neurologic: Reports system reviewed and no additional complaints, except as documented, Denies dizziness and Denies Sensory deficit (Neuro) Psychiatric: Psychiatric: Denies anxiety PMFSH Past Medical History Medical History (Updated 03/06/22 @ 21:10 by Haresh Vivar MD) Alcohol abuse Alopecia Anxiety and depression Carpal tunnel syndrome 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 Diverticulosis GERD (gastroesophageal reflux disease) History of bipolar disorder History of schizophrenia Hypercholesterolemia Hypertension Insomnia Numbness of left hand Renal calculi Spondylosis of lumbar spine Type 2 diabetes mellitus with hyperglycemia Vitamin D deficiency Surgical History H/O: hysterectomy History of tubal ligation Family History Family History Father Medical history unknown Mother Medical history unknown Paternal Aunt Uterine cancer Diabetes Hypertension Paternal Uncle Liver cancer Heart attack Maternal Aunt Stroke Family/Other Chronic mental illness Sister Uterine cancer Schizophrenia Brother Substance abuse Other Mental health disorder Social History Social History Household Members: None Housing: Apartment Do you presently have visiting nurse or other home services: Yes Alcohol intake: never Patient Tobacco Use Status: Never used Tobacco e-Cigarette/Vaping Use: Never Used Second Hand Smoke Exposure: No Advance Directives: Yes Advance Directives Information Provided: No Advance Directives on File: No service: No Current occupational status: disabled Current occupational exposures/hazards: No Cognitive needs: No Hearing needs: No Vision needs: No Physical Exam Vital Signs: Vital Signs: Last Vital Signs Temp 97.3 F 08/08/22 21:08 Pulse 74 03/06/22 21:08 Resp 16 03/06/22 21:08 BP 110/61 03/06/22 21:08 Pulse Ox 98 03/06/22 21:08 O2 Del Method 03/06/22 21:08 BMI result Body Mass Index 21.9 Const: Other: anxious General: healthy appearing Nutritional Appearance: average body habitus Orientation/consciousness: oriented to person and patient oriented x3 Limitations: no limitations HEENT: Head: Yes normal to inspection Ears: external ears normal General nose exam: Normal external nose present Mouth: Normal oral and palatal mucosa present and oropharynx normal Throat: Yes posterior oropharynx normal Eyes: General: appearance normal, both eyes and all related structures Neck: Other: supple Neck: Yes normal visual inspection Chest: Chest palpation & inspection: normal inspection of the chest Resp: Auscultation: clear to auscultation bilaterally Cardio: Jugular venous distension: no JVD Rate: regular rate Rhythm: regular rhythm Heart sounds: S1 normal heart sound present and S2 normal heart sound present GI: Inspection: Yes normal to inspection Palpation (GI): Soft to palpation, nontender and No hepatosplenomegaly present Auscultation: normal bowel sounds : General: Yes no CVA tenderness Back/Spine/Pelvis: Back: no CVA tenderness Skin: General skin exam: no rashes or lesions noted Neuro: General: oriented to person and patient oriented x3 Cranial nerves: Yes CN's II-XII intact bilaterally Motor exam (neuro): 5/5 motor strength present throughout Sensory Exam: No Sensory deficit (Neuro) Extrem: General: Yes normal to inspection Psych: Appearance: grossly normal MDM - Syncope Lab Data Result diagrams: 03/06/22 20:40 Labs: Lab Results 03/06/22 03/06/22 Range/Units 14:35 20:40 Sodium 141 (135-145) mmol/L Potassium 3.7 (3.3-5.1) mmol/L Chloride 105 (96-108) mmol/L Carbon Dioxide 28 (22-29) mmol/L Anion Gap 12 (12-20) BUN 11 (9-16) mg/dL Creatinine 0.64 (0.5-1.4) mg/dL Estim Creat Clear Calc 91.5 Estimated GFR > 60 POC Glucose 71 (60-115) mg/dL Random Glucose 88 (60-115) mg/dL Calcium 9.0 (8.4-10.2) mg/dL Discharge Plan Discharge Clinical Impression: Hypoglycemia, Neck strain Patient Disposition: Home, Self-Care Instructions: Cervical Strain (ED), Non-diabetic Hypoglycemia (ED) Additional Instructions: may take tylenol as instructed Prescriptions: New cyclobenzaprine 10 mg tablet 10 mg PO TID Qty: 10 0RF No Action vitamin B complex [B Complex-Vitamin B12] Tablet 1 tab PO DAILY Qty: 30 6RF Rx Instructions: 1,000mcg dose daily (DME) blood pressure monitor [Blood Pressure Kit] Kit See Rx Instructions .Route Qty: 1 0RF Rx Instructions: As directed (DME) blood-glucose meter [FreeStyle Lite Meter] Kit See Rx Instructions .ROUTE .MEDSUPPLY Qty: 1 0RF Rx Instructions: As directed (DME) lancets [FreeStyle Lancets] 28 gauge misc See Rx Instructions .ROUTE .MEDSUPPLY Qty: 100 3RF Rx Instructions: As directed check BS QD atorvastatin 20 mg tablet 20 mg PO DAILY Qty: 90 3RF (DME) CANE See Rx Instructions .Route .MEDSUPPLY Qty: 1 0RF Rx Instructions: As directed (DME) WRIST BRACE See Rx Instructions .Route .MEDSUPPLY Qty: 1 0RF Rx Instructions: As directed (DME) BATH CHAIR See Rx Instructions .Route .MEDSUPPLY Qty: 1 0RF Rx Instructions: As directed (DME) LIFELINE ALERT SYSTEM See Rx Instructions .Route .MEDSUPPLY Qty: 1 0RF Rx Instructions: As directed (DME) ALCOHOL PADS See Rx Instructions .Route .MEDSUPPLY Qty: 100 3RF Rx Instructions: As directed sucralfate 1 gram tablet 1 g PO BID Qty: 180 3RF diphenhydramine HCl [Benadryl] 25 mg capsule 25 mg PO BEDTIME PRN (Reason: sleep) Qty: 30 0RF dicyclomine 20 mg tablet 20 mg PO BID Qty: 60 0RF venlafaxine 150 mg capsule,extended release 24hr 1 cap PO DAILY quetiapine 50 mg tablet 1 tab PO BID famotidine 40 mg tablet 1 tab PO BEDTIME hydroxyzine pamoate 50 mg capsule 1 cap PO BID PRN (Reason: Anxiety) acetaminophen 500 mg tablet 2 tab PO Q8H ondansetron 4 mg tablet,disintegrating 1 tab PO Q8H PRN (Reason: nausea) cholecalciferol (vitamin D3) [Vitamin D3] 50 mcg (2,000 unit) tablet 1 tab PO DAILY Linzess 290 mcg capsule 1 cap PO DAILY tramadol 50 mg tablet 50 mg PO Q12H PRN (Reason: Pain (Scale Score 4-6)) pantoprazole 40 mg tablet,delayed release (DR/EC) 40 mg PO DAILY@0630 GlucaGen HypoKit 1 mg Recon Soln 1 mg IVPUSH ONCE PRN (Reason: hypoglycemia below 55) Qty: 1 0RF zolpidem 10 mg tablet 10 mg PO BEDTIME PRN (Reason: Sleep) lactulose 10 gram/15 mL solution 10 g PO DAILY (DME) FreeStyle Lite Strips Strip See Rx Instructions .ROUTE .MEDSUPPLY Qty: 100 3RF Rx Instructions: As directed check TID ascorbate calcium (vitamin C) 500 mg tablet 500 mg PO DAILY ziprasidone HCl 20 mg capsule 20 mg PO BID quetiapine 400 mg tablet 400 mg PO BEDTIME ursodiol 300 mg capsule 300 mg PO BID simethicone 80 mg tablet,chewable 80 mg PO Q6H PRN (Reason: GAS) clonazepam 1 mg tablet 1 mg PO TID Referrals: Po,Deirdre Raymundo MD [Primary Care Provider] - 5 days
--- NOTE | 2022-03-06 20:27 | ECG_ITS ---
Test Reason : FALL Blood Pressure : / mmHG Vent. Rate : 053 BPM Atrial Rate : 053 BPM P-R Int : 146 ms QRS Dur : 096 ms QT Int : 432 ms P-R-T Axes : 049 070 041 degrees QTc Int : 405 ms Sinus bradycardia Otherwise normal ECG When compared with ECG of 11-FEB-2022 16:36, No significant change was found Referred By: Haresh Vivar Electronically Signed By:NEISHA LOPEZ
[2022-03-06 21:01] LABS: Anion Gap 12 (12-20); Blood Urea Nitrogen 11 mg/dL (9-16); Carbon Dioxide 28 mmol/L (22-29); Chloride 105 mmol/L (96-108); Creatinine Clr Calc Pharmacy 91.5; Estimated Glomerular Filt Rate > 60; Glucose Random 88 mg/dL (60-115); Potassium 3.7 mmol/L (3.3-5.1); Sodium 141 mmol/L (135-145)
[2022-03-06 21:08] VITALS: BP 110/61; PULSE 74; RESP 16; TEMP 36.3; O2SAT 98
[2022-03-06 21:23] LABS: Glucose, Whole Blood 26 mg/dL (60-115)
[2022-03-06 21:41] LABS: Glucose, Whole Blood 32 mg/dL (60-115)
--- NOTE | 2022-03-06 21:42 | PC.NURSE ---
patient was given peanut butter and gram crackers and more orange juice .
[2022-03-06 21:48] VITALS: BP 115/74; PULSE 62; RESP 16; TEMP 37.1; O2SAT 98
[2022-03-06 22:26] LABS: Glucose, Whole Blood 106 mg/dL (60-115)
[2022-03-06 23:42] LABS: Glucose, Whole Blood 86 mg/dL (60-115)
== END 2022-03-07 00:08 | disposition home or self-care (01) ==
PROVIDERS: Emergency Provider Emergency Medicine; PCP Internal Medicine
DX: E11.649 Type 2 diabetes mellitus with hypoglycemia without coma (principal); S16.1XXA Strain of muscle, fascia and tendon at neck level, initial encounter; W17.89XA Other fall from one level to another, initial encounter; I10 Essential (primary) hypertension; E78.00 Pure hypercholesterolemia, unspecified; Z91.81 History of falling; Y93.89 Activity, other specified; Y92.9 Unspecified place or not applicable; Y99.9 Unspecified external cause status; Z79.02 Long term (current) use of antithrombotics/antiplatelets; Z79.899 Other long term (current) drug therapy
CPT/HCPCS: 36415; 72040; 80048; 82947; 93005; 99283; 99284

== ENCOUNTER 2022-03-09 09:06 | Outpatient (REF) | payer OTHER, SELFPAY ==
[2022-03-09 10:38] LABS: Glucose, Whole Blood 63 mg/dL (60-115)
[2022-03-10 14:42] LABS: Adrenocorticotropic Hormone 42 pg/mL (6-50)
[2022-03-11 04:48] LABS: Cortisol 60 Minute 27.4 mcg/dL; Cortisol Baseline 7.8 mcg/dL
[2022-03-13 07:46] LABS: Med (ACTH) Time 1110
== END 2022-03-09 09:07 | disposition home or self-care (01) ==
LOC: HO.MDS 09:06
PROVIDERS: PCP Internal Medicine; Visit Provider Internal Medicine Endocrinology, Diabetes & Metabolism
DX: E27.40 Unspecified adrenocortical insufficiency (principal); E16.2 Hypoglycemia, unspecified; Z98.84 Bariatric surgery status
CPT/HCPCS: 36415; 82024; 82533; 82947; 96374; 99202; J0834

== ENCOUNTER 2022-03-14 12:14 | Emergency (ER) | payer OTHER, SELFPAY ==
--- NOTE | ~2022-03-14 | XR_ITS ---
EXAMINATION: XR CHEST CLINICAL INFORMATION: Shortness of breath COMPARISON: Chest radiographs 05/18/2021, 05/09/2020 TECHNIQUE: 2 views of the chest were obtained. FINDINGS: The lungs are clear. There is no airspace consolidation, groundglass opacity, or effusion. No pneumothorax or pleural reaction. The costophrenic sulci are clear. Heart size normal. Vascularity normal. The hilar and mediastinal contours are normal. Bony structures are unremarkable. XR/XR chest 2V IMPRESSION: Normal chest.
[2022-03-14 12:40] VITALS: BP 118/72; PULSE 60; RESP 16; TEMP 36.6; O2SAT 99; BMI 21.9
--- NOTE | 2022-03-14 12:44 | ECG_ITS ---
Test Reason : DYSPENA Blood Pressure : / mmHG Vent. Rate : 059 BPM Atrial Rate : 059 BPM P-R Int : 142 ms QRS Dur : 088 ms QT Int : 380 ms P-R-T Axes : 064 064 035 degrees QTc Int : 376 ms Sinus bradycardia Otherwise normal ECG When compared with ECG of 06-MAR-2022 20:43, No significant change was found Referred By: Generic ED Physician Electronically Signed By:SID FRIEND
--- NOTE | 2022-03-14 15:53 | PC.NURSE ---
Pt stating has hx of hypoglycemia and that poc was 51 in WR. POC obtained at this time and reading 31. Snacks provided. Pt is awake and oriented at this time able to swallow soft foods.
[2022-03-14 16:05] LABS: Glucose, Whole Blood 31 mg/dL (60-115)
--- NOTE | 2022-03-14 16:40 | ED_ITS ---
HPI - General Adult General Chief complaint: General Medical Stated complaint: difficulty breathing Time Seen by Provider: 03/14/22 16:05 Source: patient Mode of arrival: ambulatory Limitations: no limitations History of Present Illness HPI narrative: 41-year-old female with history of HTN, DM (now off meds), esophagitis (EGD 12/2020), obesity s/p gastric sleeve in September 2021 by at [facility] with resultant 50 lb weight loss complicated by postgastectomy malabsorbtion and recurrent hypoglycemia presents to the ER for evaluation of multiple complaints that have been persistent and worsening over the last several months. She reports since her surgery she has had recurrent malabsorption issues, resulting in frequent hypoglycemia episodes. She also has had difficulty eating solid foods. She has been hospitalized here for hypoglycemia and malabsorption. She was referred to endocrinology who recently started her on hydrocortisone for adrenal insufficiency. She reports that whenever she tries to eat solid food she feels like something is stuck in her throat. She is able to eat soft foods like mashed potatoes and eggs but nothing sharper solid. She also reports productive cough for the last few months with clear thick and white phlegm. She states like her breathing is feels off. She denies any fever or chills. She is not vomiting. She has seen her surgeon back in December and has an appointment coming up in March. She saw her PCP and has an appointment at the end of this month for a barium swallow test. Patient is found to be hypoglycemic at 31 in the waiting room and was brought ba to the treatment room right away. Awake and alert. MD complaint: inability to eat solid food, productive cough Onset (ago): week(s) Location: neck, chest and abdomen Severity: severe and similar to prior episodes Severity scale (1-10): 6 Quality: aching Pain Consistency: intermittent Relieving factors: none Exacerbating factors: eating Associated symptoms: cough, loss of appetite, malaise and weakness Treatments prior to arrival: none Related Data Home Medications Medication Instructions Recorded Confirmed lactulose 10 gram/15 mL oral 10 g PO DAILY 08/27/20 02/22/22 solution zolpidem 10 mg tablet 10 mg PO BEDTIME PRN Sleep 08/27/20 02/22/22 ascorbate calcium (vitamin C) 500 500 mg PO DAILY 09/08/21 02/22/22 mg tablet quetiapine 50 mg tablet 1 tab PO BID 09/22/21 02/22/22 venlafaxine 150 mg 1 cap PO DAILY 09/22/21 02/22/22 capsule,extended release 24 hr clonazepam 1 mg tablet 1 mg PO TID 10/26/21 02/22/22 quetiapine 400 mg tablet 400 mg PO BEDTIME 10/26/21 02/22/22 simethicone 80 mg chewable tablet 80 mg PO Q6H PRN GAS 10/26/21 02/22/22 ursodiol 300 mg capsule 300 mg PO BID 10/26/21 02/22/22 ziprasidone HCl 20 mg capsule 20 mg PO BID 10/26/21 02/22/22 acetaminophen 500 mg tablet 2 tab PO Q8H 02/11/22 02/22/22 cholecalciferol (vitamin D3) 50 1 tab PO DAILY 02/11/22 02/22/22 mcg (2,000 unit) tablet (Vitamin D3) famotidine 40 mg tablet 1 tab PO BEDTIME 02/11/22 02/22/22 hydroxyzine pamoate 50 mg capsule 1 cap PO BID PRN Anxiety 02/11/22 02/22/22 linaclotide 290 mcg capsule 1 cap PO DAILY 02/11/22 02/22/22 (Linzess) ondansetron 4 mg disintegrating 1 tab PO Q8H PRN nausea 02/11/22 02/22/22 tablet pantoprazole 40 mg tablet,delayed 40 mg PO DAILY@0630 02/11/22 02/22/22 release tramadol 50 mg tablet 50 mg PO Q12H PRN Pain (Scale 02/11/22 02/22/22 Score 4-6) Previous Rx's Medication Instructions Recorded vitamin B complex (B 1 tab PO DAILY #30 tabs 07/13/21 Complex-Vitamin B12 tablet) blood pressure monitor (Blood #1 ea 10/31/21 Pressure Kit) blood-glucose meter (FreeStyle #1 ea 10/31/21 Lite Meter kit) lancets 28 gauge (FreeStyle #100 ea 10/31/21 Lancets) atorvastatin 20 mg tablet 20 mg PO DAILY #90 tabs 01/27/22 BATH CHAIR #1 ea 01/31/22 CANE #1 ea 01/31/22 LIFELINE ALERT SYSTEM #1 ea 01/31/22 WRIST BRACE #1 ea 01/31/22 ALCOHOL PADS #100 ea 02/21/22 sucralfate 1 gram tablet 1 g PO BID #180 tabs 02/21/22 blood sugar diagnostic (FreeStyle #100 ea 02/22/22 Lite Strips) dicyclomine 20 mg tablet 20 mg PO BID #60 tabs 02/27/22 cyclobenzaprine 10 mg tablet 10 mg PO TID #10 tabs 03/06/22 ENSURE once a day #90 ea 03/09/22 glucagon 1 mg solution for 1 mg IVPUSH ONCE PRN hypoglycemia 03/09/22 injection (GlucaGen HypoKit) below 55 #1 ea lidocaine 5 % topical patch 1 patch topical DAILY 30 days #30 03/09/22 (Lidoderm) ea tramadol 50 mg tablet 50 mg PO Q6H PRN pain 30 days #60 03/09/22 tabs diphenhydramine HCl 25 mg capsule 25 mg PO BEDTIME PRN sleep #90 caps 03/10/22 (Benadryl) hydrocortisone 10 mg tablet 15 mg PO DAILY #30 tabs 03/10/22 Allergies Allergy/AdvReac Type Severity Reaction Status Date / Time tomato [TOMATO] Allergy Mild HIVES Verified 03/09/22 15:23 DIFFICULTY BREATHING hydrocodone [HYDROCODONE] Allergy Unknown RASH, Verified 03/09/22 15:23 AIRWAY CLOSES ibuprofen [From MOTRIN] Allergy Unknown STOMACH Verified 03/09/22 15:23 UPSET, vomiting trazodone [TRAZODONE] Allergy Unknown UNKNOWN, Verified 03/09/22 15:23 stomach upset black pepper [BLACK PEPPER] AdvReac Severe DIFFICULTY Verified 03/09/22 15:23 BREATHING, hives Review of Systems Review of Systems: Constitutional: No Fever, No Chills ENT/Mouth: + sore throat, No Rhinorrhea, + Swallowing Difficulty Eyes: No Eye Pain, No Swelling, No Redness Cardiovascular: No Chest Pain, No SOB, No Orthopnea, No Edema Respiratory: + Cough, + Sputum, No Wheezing, No dyspnea Gastrointestinal: + Nausea, No Vomiting, No Diarrhea, No abdominal Pain, No Hematochezia, No Melena Genitourinary: No Dysuria, No Urinary Frequency, No Hematuria Musculoskeletal: No joint pain, No Myalgias Skin: No Skin Lesions, No rash Neuro: No Weakness, No Numbness, + Dizziness, No Headache Psych: + Anxiety/Panic, + Depression Heme/Lymph: No Bruising, No Lymphadenopathy Endocrine: No Polyuria, No Polydipsia [facility] Past Medical History Medical History (Updated 03/14/22 @ 23:35 by NOEL Castaneda) Alcohol abuse Alopecia Anxiety and depression Carpal tunnel syndrome 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 Diverticulosis GERD (gastroesophageal reflux disease) History of bipolar disorder History of schizophrenia Hypercholesterolemia Hypertension Insomnia Numbness of left hand Renal calculi Spondylosis of lumbar spine Type 2 diabetes mellitus with hyperglycemia Vitamin D deficiency Surgical History (Updated 03/09/22 @ 07:45 by MIKHAIL Cardoso) H/O: hysterectomy History of tubal ligation Hx of bariatric surgery Family History Family History Father Medical history unknown Mother Medical history unknown Paternal Aunt Uterine cancer Diabetes Hypertension Paternal Uncle Liver cancer Heart attack Maternal Aunt Stroke Family/Other Chronic mental illness Sister Uterine cancer Schizophrenia Brother Substance abuse Other Mental health disorder Social History Social History Household Members: None Housing: Apartment Do you presently have visiting nurse or other home services: Yes Alcohol intake: never Patient Tobacco Use Status: Never used Tobacco e-Cigarette/Vaping Use: Never Used Second Hand Smoke Exposure: No Advance Directives: No Advance Directives Information Provided: No service: No Current occupational status: disabled Current occupational exposures/hazards: No Cognitive needs: No Hearing needs: No Vision needs: No Physical Exam ED Vital Signs: Vital Signs - 24 hr 03/14/22 12:40 03/14/22 20:18 Temperature 97.9 F Pulse Rate 60 70 Respiratory Rate 16 Blood Pressure 118/72 118/80 Pulse Oximetry 99 97 Oxygen Delivery Method Room Air Room Air BMI result Body Mass Index 21.9 Appearance: Alert. Oriented X3. No acute distress. Eyes: Pupils equal, round and reactive to light. ENT: Pharynx normal. Moist mucus membranes Neck: Normal inspection. Neck supple. CVS: Normal heart rate and rhythm. Pulses normal. Respiratory: No respiratory distress. Breath sounds normal. Abdomen: Soft and nontender. +BS x4 Skin: Skin warm and dry. Normal skin color. Normal skin turgor. No rashes. Extremities: No lower extremity edema. Neuro: Oriented X 3. No motor deficit. No sensory deficit. Course Course Course Narrative: 41-year-old female who is status post gastric sleeve at [facility] in September complicated by gastrectomy malabsorption who presents to the ER for acute on chronic complaints of difficulty swallowing, productive cough, recurring hypoglycemia. Fingerstick is 31 in triage. She is awake and alert and ambulatory. She was given 2 juices and drink them with no difficulty. She was given putting and also was able to eat that. Repeat sugar was up to the 90s. She reports her daily food intake starts with small bowl of oatmeal, followed by 3 of for protein shakes throughout the day. She also has small meals of soft foods like mashed potatoes. She states she checks her blood sugar 6 times a day and has frequent hypoglycemia episodes. She is seeing endocrinology. She was started on hydrocortisone for unspecified adrenal insufficiency. Patient is able to tolerate liquids and soft solids. No role for any imaging of the throat and neck today. She has an upcoming esophagram. She may benefit from a repeat endoscopy, last was over a year ago and she had known esophagitis. Her GI doctor is at [facility]. Will follow up her labs. She was given additional p.o.. Will monitor. Reevaluation(s) Reevaluation #1: Patient's lab workup was unremarkable. Glucose on her chemistry is 164. Her x- ray is clear. She is saturating well on room air. No respiratory distress. Unfortunately her issues are chronic and complications from the surgery. She is tolerating small amounts of PO in the ER - jello, pudding and juice. Reevaluation #2: Glucose went from 95 to 55. She is AAO X3, asymptomatic. given juice, crackers and a toasted PB sandwich per request. Will place patient in physician observation for monitoring of her gluocose. VS stable, AAO x3. Time. Physician observation started is at 21:00. Will monitor her intake and her sugars closely. Reevaluation #3: Patient has had 3 consecutive glucose readings within normal range. She is awake alert oriented and tolerating solids, puddings and liquids. She is stable for discharge home with plan to follow-up with her GI doctor for possible endoscopy. She will follow-up with her esophagram appointment at the end of this month and her son appointment with Dr. Callaway at the end of March Medical Decision Making Lab Data Result diagrams: 03/14/22 16:37 03/14/22 16:37 Labs: Lab Results 03/14/22 03/14/22 03/14/22 Range/Units 15:50 16:37 16:37 WBC 6.2 (4.8-10.8) X10*3/uL RBC 4.15 L (4.20-5.50) X10*6/uL Hgb 12.2 (12.0-16.0) g/dl Hct 37.5 (37.0-47.0) % MCV 90.4 (80.0-98.0) fL MCH 29.4 (27.0-33.0) pg MCHC 32.5 (31.0-35.0) g/dl RDW 13.2 (11.0-16.0) % Plt Count 307 (160-400) X10*3/uL MPV 10.5 (9.4-12.3) fL Immature Gran % (Auto) 0.3 (0.0-0.4) % Neut % (Auto) 63.5 (45-73) % Lymph % (Auto) 28.8 (20-40) % Fannin % (Auto) 6.4 (2-11) % Eos % (Auto) 0.5 (0-4) % Baso % (Auto) 0.5 (0-2) % Lymph # (Auto) 1.8 (1.2-4.9) X10*3/uL Fannin # (Auto) 0.4 (0.1-1.2) X10*3/uL Eos # (Auto) 0.0 (0.0-0.4) X10*3/uL Baso # (Auto) 0.0 (0.0-0.2) X10*3/uL Abs Immat Gran (auto) 0.02 (0.00-0.03) X10*3/uL Absolute Neuts (auto) 4.0 (2.0-8.3) x10*3/uL Absolute Nucleated RBC 0.000 (0.0-0.012) X10*3/uL Nucleated RBC % (auto) 0.0 (0.0-0.2) /100WBC Sodium 140 (135-145) mmol/L Potassium 4.0 (3.3-5.1) mmol/L Chloride 105 (96-108) mmol/L Carbon Dioxide 25 (22-29) mmol/L Anion Gap 14 (12-20) BUN 13 (9-16) mg/dL Creatinine 0.70 (0.5-1.4) mg/dL Estim Creat Clear Calc 83.6 Estimated GFR > 60 POC Glucose 31 L* (60-115) mg/dL Random Glucose 164 H (60-115) mg/dL Calcium 9.4 (8.4-10.2) mg/dL Total Bilirubin 0.2 (0.0-1.0) mg/dL Direct Bilirubin 0.2 (0.0-0.5) mg/dL AST 11 (5-31) U/L ALT 9 (0-31) U/L Alkaline Phosphatase 48 (39-117) U/L Total Protein 7.2 (6.5-8.0) g/dL Albumin 4.6 (3.5-5.0) g/dL 03/14/22 03/14/22 03/14/22 Range/Units 16:48 19:11 20:24 WBC (4.8-10.8) X10*3/uL RBC (4.20-5.50) X10*6/uL Hgb (12.0-16.0) g/dl Hct (37.0-47.0) % MCV (80.0-98.0) fL MCH (27.0-33.0) pg MCHC (31.0-35.0) g/dl RDW (11.0-16.0) % Plt Count (160-400) X10*3/uL MPV (9.4-12.3) fL Immature Gran % (Auto) (0.0-0.4) % Neut % (Auto) (45-73) % Lymph % (Auto) (20-40) % Fannin % (Auto) (2-11) % Eos % (Auto) (0-4) % Baso % (Auto) (0-2) % Lymph # (Auto) (1.2-4.9) X10*3/uL Fannin # (Auto) (0.1-1.2) X10*3/uL Eos # (Auto) (0.0-0.4) X10*3/uL Baso # (Auto) (0.0-0.2) X10*3/uL Abs Immat Gran (auto) (0.00-0.03) X10*3/uL Absolute Neuts (auto) (2.0-8.3) x10*3/uL Absolute Nucleated RBC (0.0-0.012) X10*3/uL Nucleated RBC % (auto) (0.0-0.2) /100WBC Sodium (135-145) mmol/L Potassium (3.3-5.1) mmol/L Chloride (96-108) mmol/L Carbon Dioxide (22-29) mmol/L Anion Gap (12-20) BUN (9-16) mg/dL Creatinine (0.5-1.4) mg/dL Estim Creat Clear Calc Estimated GFR POC Glucose 95 55 L* 44 L* (60-115) mg/dL Random Glucose (60-115) mg/dL Calcium (8.4-10.2) mg/dL Total Bilirubin (0.0-1.0) mg/dL Direct Bilirubin (0.0-0.5) mg/dL AST (5-31) U/L ALT (0-31) U/L Alkaline Phosphatase (39-117) U/L Total Protein (6.5-8.0) g/dL Albumin (3.5-5.0) g/dL 03/14/22 03/14/22 03/14/22 Range/Units 21:20 22:32 23:14 WBC (4.8-10.8) X10*3/uL RBC (4.20-5.50) X10*6/uL Hgb (12.0-16.0) g/dl Hct (37.0-47.0) % MCV (80.0-98.0) fL MCH (27.0-33.0) pg MCHC (31.0-35.0) g/dl RDW (11.0-16.0) % Plt Count (160-400) X10*3/uL MPV (9.4-12.3) fL Immature Gran % (Auto) (0.0-0.4) % Neut % (Auto) (45-73) % Lymph % (Auto) (20-40) % Fannin % (Auto) (2-11) % Eos % (Auto) (0-4) % Baso % (Auto) (0-2) % Lymph # (Auto) (1.2-4.9) X10*3/uL Fannin # (Auto) (0.1-1.2) X10*3/uL Eos # (Auto) (0.0-0.4) X10*3/uL Baso # (Auto) (0.0-0.2) X10*3/uL Abs Immat Gran (auto) (0.00-0.03) X10*3/uL Absolute Neuts (auto) (2.0-8.3) x10*3/uL Absolute Nucleated RBC (0.0-0.012) X10*3/uL Nucleated RBC % (auto) (0.0-0.2) /100WBC Sodium (135-145) mmol/L Potassium (3.3-5.1) mmol/L Chloride (96-108) mmol/L Carbon Dioxide (22-29) mmol/L Anion Gap (12-20) BUN (9-16) mg/dL Creatinine (0.5-1.4) mg/dL Estim Creat Clear Calc Estimated GFR POC Glucose 61 77 94 (60-115) mg/dL Random Glucose (60-115) mg/dL Calcium (8.4-10.2) mg/dL Total Bilirubin (0.0-1.0) mg/dL Direct Bilirubin (0.0-0.5) mg/dL AST (5-31) U/L ALT (0-31) U/L Alkaline Phosphatase (39-117) U/L Total Protein (6.5-8.0) g/dL Albumin (3.5-5.0) g/dL Discharge Plan Discharge Clinical Impression: Hypoglycemia, Dysphagia, Cough Patient Disposition: Home, Self-Care Instructions: Non-diabetic Hypoglycemia (ED), Chronic Cough (ED), Upper Endoscopy (DC) Additional Instructions: It is important that you eat small frequent meals throughout the day, high-protein drinks and snacks. Do not go more than 2 hours without eating or drinking something with calories and protein. Follow-up with your GI doctor as soon as possible. Follow-up with your surgeon as soon as possible. If you develop new or worsening symptoms call 911 or come back to the ER for fu rther evaluation. Prescriptions: No Action vitamin B complex [B Complex-Vitamin B12] Tablet 1 tab PO DAILY Qty: 30 6RF Rx Instructions: 1,000mcg dose daily (DME) blood pressure monitor [Blood Pressure Kit] Kit See Rx Instructions .Route Qty: 1 0RF Rx Instructions: As directed (DME) blood-glucose meter [FreeStyle Lite Meter] Kit See Rx Instructions .ROUTE .MEDSUPPLY Qty: 1 0RF Rx Instructions: As directed (DME) lancets [FreeStyle Lancets] 28 gauge misc See Rx Instructions .ROUTE .MEDSUPPLY Qty: 100 3RF Rx Instructions: As directed check BS QD atorvastatin 20 mg tablet 20 mg PO DAILY Qty: 90 3RF (DME) CANE See Rx Instructions .Route .MEDSUPPLY Qty: 1 0RF Rx Instructions: As directed (DME) WRIST BRACE See Rx Instructions .Route .MEDSUPPLY Qty: 1 0RF Rx Instructions: As directed (DME) BATH CHAIR See Rx Instructions .Route .MEDSUPPLY Qty: 1 0RF Rx Instructions: As directed (DME) LIFELINE ALERT SYSTEM See Rx Instructions .Route .MEDSUPPLY Qty: 1 0RF Rx Instructions: As directed (DME) ALCOHOL PADS See Rx Instructions .Route .MEDSUPPLY Qty: 100 3RF Rx Instructions: As directed sucralfate 1 gram tablet 1 g PO BID Qty: 180 3RF dicyclomine 20 mg tablet 20 mg PO BID Qty: 60 0RF lidocaine [Lidoderm] 5 % adhesive patch,medicated 1 patch topical DAILY 30 Days Qty: 30 3RF Rx Instructions: leave on most painful area for up to 12 hrs (DME) ENSURE once a day See Rx Instructions .Route .MEDSUPPLY Qty: 90 0RF Rx Instructions: As directed hydrocortisone 10 mg tablet 15 mg PO DAILY Qty: 30 0RF Rx Instructions: Please have patient take 1 tablet (10 mg) in a.m. and half a tablet (5 mg) in p.m. diphenhydramine HCl [Benadryl] 25 mg capsule 25 mg PO BEDTIME PRN (Reason: sleep) Qty: 90 2RF venlafaxine 150 mg capsule,extended release 24hr 1 cap PO DAILY quetiapine 50 mg tablet 1 tab PO BID cyclobenzaprine 10 mg tablet 10 mg PO TID Qty: 10 0RF famotidine 40 mg tablet 1 tab PO BEDTIME hydroxyzine pamoate 50 mg capsule 1 cap PO BID PRN (Reason: Anxiety) acetaminophen 500 mg tablet 2 tab PO Q8H ondansetron 4 mg tablet,disintegrating 1 tab PO Q8H PRN (Reason: nausea) cholecalciferol (vitamin D3) [Vitamin D3] 50 mcg (2,000 unit) tablet 1 tab PO DAILY Linzess 290 mcg capsule 1 cap PO DAILY tramadol 50 mg tablet 50 mg PO Q12H PRN (Reason: Pain (Scale Score 4-6)) pantoprazole 40 mg tablet,delayed release (DR/EC) 40 mg PO DAILY@0630 zolpidem 10 mg tablet 10 mg PO BEDTIME PRN (Reason: Sleep) lactulose 10 gram/15 mL solution 10 g PO DAILY (DME) FreeStyle Lite Strips Strip See Rx Instructions .ROUTE .MEDSUPPLY Qty: 100 3RF Rx Instructions: As directed check TID ascorbate calcium (vitamin C) 500 mg tablet 500 mg PO DAILY tramadol 50 mg tablet 50 mg PO Q6H PRN (Reason: pain) 30 Days Qty: 60 0RF ziprasidone HCl 20 mg capsule 20 mg PO BID quetiapine 400 mg tablet 400 mg PO BEDTIME ursodiol 300 mg capsule 300 mg PO BID simethicone 80 mg tablet,chewable 80 mg PO Q6H PRN (Reason: GAS) clonazepam 1 mg tablet 1 mg PO TID GlucaGen HypoKit 1 mg recon soln 1 mg IVPUSH ONCE PRN (Reason: hypoglycemia below 55) Qty: 1 0RF
[2022-03-14 16:43] LABS: MANUAL DIFF FLAG NO
[2022-03-14 16:50] LABS: Basophils Percent Auto 0.5 % (0-2); Eosinophils Percent Auto 0.5 % (0-4); Hematocrit 37.5 % (37.0-47.0); Hemoglobin 12.2 g/dl (12.0-16.0); Imm Gran Abs Auto 0.02 X10*3/uL (0.00-0.03); Imm Gran Pct Auto 0.3 % (0.0-0.4); Lymphocytes Absolute Auto 1.8 X10*3/uL (1.2-4.9); Lymphocytes Percent Auto 28.8 % (20-40); Mean Corpuscular HGB Conc 32.5 g/dl (31.0-35.0); Mean Corpuscular Hemoglobin 29.4 pg (27.0-33.0); Mean Corpuscular Volume 90.4 fL (80.0-98.0); Mean Platelet Volume 10.5 fL (9.4-12.3); Monocytes Absolute Auto 0.4 X10*3/uL (0.1-1.2); Monocytes Percent Auto 6.4 % (2-11); Neutrophils Percent Auto 63.5 % (45-73); Platelet Count 307 X10*3/uL (160-400); Red Blood Count 4.15 X10*6/uL (4.20-5.50); Red Cell Distribution Width 13.2 % (11.0-16.0); White Blood Count 6.2 X10*3/uL (4.8-10.8)
[2022-03-14 16:52] LABS: Glucose, Whole Blood 95 mg/dL (60-115)
[2022-03-14 17:04] LABS: Alanine Aminotransferase 9 U/L (0-31); Albumin Level 4.6 g/dL (3.5-5.0); Alkaline Phosphatase 48 U/L (39-117); Anion Gap 14 (12-20); Aspartate Amino Transferase 11 U/L (5-31); Bilirubin Direct 0.2 mg/dL (0.0-0.5); Bilirubin Total 0.2 mg/dL (0.0-1.0); Blood Urea Nitrogen 13 mg/dL (9-16); Calcium 9.4 mg/dL (8.4-10.2); Carbon Dioxide 25 mmol/L (22-29); Chloride 105 mmol/L (96-108); Creatinine Clr Calc Pharmacy 83.6; Estimated Glomerular Filt Rate > 60; Glucose Random 164 mg/dL (60-115); Sodium 140 mmol/L (135-145); Total Protein 7.2 g/dL (6.5-8.0)
[2022-03-14 19:16] LABS: Glucose, Whole Blood 55 mg/dL (60-115)
[2022-03-14 20:18] VITALS: BP 118/80; PULSE 70; O2SAT 97
[2022-03-14 22:59] LABS: Glucose, Whole Blood 44 mg/dL (60-115)
[2022-03-14 22:59] LABS: Glucose, Whole Blood 77 mg/dL (60-115)
[2022-03-14 22:59] LABS: Glucose, Whole Blood 61 mg/dL (60-115)
[2022-03-14 23:21] LABS: Glucose, Whole Blood 94 mg/dL (60-115)
== END 2022-03-14 23:43 | disposition home or self-care (01) ==
PROVIDERS: Emergency Provider Emergency Medicine Emergency Medical Services; PCP Internal Medicine
DX: E11.649 Type 2 diabetes mellitus with hypoglycemia without coma (principal); R13.10 Dysphagia, unspecified; R06.02 Shortness of breath; R05.9 Cough, unspecified; R53.1 Weakness; Z79.899 Other long term (current) drug therapy
CPT/HCPCS: 36415; 71046; 80048; 80076; 82947; 85025; 93005; 99283; 99284

== ENCOUNTER 2022-04-02 16:58 | Emergency (ER) | payer OTHER, SELFPAY ==
[2022-04-02 17:00] VITALS: BP 91/54; PULSE 81; RESP 14; TEMP 36.2; O2SAT 97; BMI 21.5
[2022-04-02 17:42] LABS: Glucose, Whole Blood 28 mg/dL (60-115)
[2022-04-02 17:42] LABS: Glucose, Whole Blood 66 mg/dL (60-115)
[2022-04-02 17:59] LABS: COVID-19 Test Negative (Negative)
[2022-04-02 17:59] LABS: Alanine Aminotransferase 10 U/L (0-31); Albumin Level 4.2 g/dL (3.5-5.0); Alkaline Phosphatase 57 U/L (39-117); Anion Gap 17 (12-20); Aspartate Amino Transferase 11 U/L (5-31); Bilirubin Direct < 0.2 mg/dL (0.0-0.5); Bilirubin Total 0.4 mg/dL (0.0-1.0); Blood Urea Nitrogen 15 mg/dL (9-16); Carbon Dioxide 23 mmol/L (22-29); Chloride 103 mmol/L (96-108); Creatinine Clr Calc Pharmacy 92.9; Estimated Glomerular Filt Rate > 60; Glucose Random 115 mg/dL (60-115); Potassium 4.1 mmol/L (3.3-5.1); Sodium 139 mmol/L (135-145); Total Protein 6.9 g/dL (6.5-8.0)
[2022-04-02 18:11] VITALS: BP 143/61; PULSE 96; RESP 13
--- NOTE | 2022-04-02 18:21 | ED_ITS ---
HPI - General Adult General Chief complaint: Abdominal Pain Stated complaint: Sore Throat Bladder Issues Time Seen by Provider: 04/02/22 18:13 Source: patient Mode of arrival: ambulatory Limitations: no limitations History of Present Illness HPI narrative: Patient is status post gastric sleeve surgery in 10/18 with recurrent hypoglycemia episode with history of adrenal insufficiency been here multiple times for abdominal pain and hyperglycemia we sewed today she comes because been having abdominal pain for last 10 days mostly in the epigastric and right upper quadrant with nausea sore throat and cough in the triage patient noticed to be hypoglycemic with blood glucose of 28 was given glucose tablets and orange juice blood sugar improved to 66 patient been coughing with mucopurulent phlegm and small amount of vomiting Related Data Home Medications Medication Instructions Recorded Confirmed lactulose 10 gram/15 mL oral 10 g PO DAILY 08/27/20 02/22/22 solution zolpidem 10 mg tablet 10 mg PO BEDTIME PRN Sleep 08/27/20 02/22/22 ascorbate calcium (vitamin C) 500 500 mg PO DAILY 09/08/21 02/22/22 mg tablet quetiapine 50 mg tablet 1 tab PO BID 09/22/21 02/22/22 venlafaxine 150 mg 1 cap PO DAILY 09/22/21 02/22/22 capsule,extended release 24 hr clonazepam 1 mg tablet 1 mg PO TID 10/26/21 02/22/22 quetiapine 400 mg tablet 400 mg PO BEDTIME 10/26/21 02/22/22 simethicone 80 mg chewable tablet 80 mg PO Q6H PRN GAS 10/26/21 02/22/22 ursodiol 300 mg capsule 300 mg PO BID 10/26/21 02/22/22 ziprasidone HCl 20 mg capsule 20 mg PO BID 10/26/21 02/22/22 acetaminophen 500 mg tablet 2 tab PO Q8H 02/11/22 02/22/22 cholecalciferol (vitamin D3) 50 1 tab PO DAILY 02/11/22 02/22/22 mcg (2,000 unit) tablet (Vitamin D3) famotidine 40 mg tablet 1 tab PO BEDTIME 02/11/22 02/22/22 hydroxyzine pamoate 50 mg capsule 1 cap PO BID PRN Anxiety 02/11/22 02/22/22 linaclotide 290 mcg capsule 1 cap PO DAILY 02/11/22 02/22/22 (Linzess) ondansetron 4 mg disintegrating 1 tab PO Q8H PRN nausea 02/11/22 02/22/22 tablet pantoprazole 40 mg tablet,delayed 40 mg PO DAILY@0630 02/11/22 02/22/22 release tramadol 50 mg tablet 50 mg PO Q12H PRN Pain (Scale 02/11/22 02/22/22 Score 4-6) Previous Rx's Medication Instructions Recorded vitamin B complex (B 1 tab PO DAILY #30 tabs 07/13/21 Complex-Vitamin B12 tablet) blood pressure monitor (Blood #1 ea 10/31/21 Pressure Kit) blood-glucose meter (FreeStyle #1 ea 10/31/21 Lite Meter kit) lancets 28 gauge (FreeStyle #100 ea 10/31/21 Lancets) atorvastatin 20 mg tablet 20 mg PO DAILY #90 tabs 01/27/22 BATH CHAIR #1 ea 01/31/22 CANE #1 ea 01/31/22 LIFELINE ALERT SYSTEM #1 ea 01/31/22 WRIST BRACE #1 ea 01/31/22 ALCOHOL PADS #100 ea 02/21/22 sucralfate 1 gram tablet 1 g PO BID #180 tabs 02/21/22 blood sugar diagnostic (FreeStyle #100 ea 02/22/22 Lite Strips) dicyclomine 20 mg tablet 20 mg PO BID #60 tabs 02/27/22 cyclobenzaprine 10 mg tablet 10 mg PO TID #10 tabs 03/06/22 ENSURE once a day #90 ea 03/09/22 glucagon 1 mg solution for 1 mg IVPUSH ONCE PRN hypoglycemia 03/09/22 injection (GlucaGen HypoKit) below 55 #1 ea lidocaine 5 % topical patch 1 patch topical DAILY 30 days #30 03/09/22 (Lidoderm) ea tramadol 50 mg tablet 50 mg PO Q6H PRN pain 30 days #60 03/09/22 tabs diphenhydramine HCl 25 mg capsule 25 mg PO BEDTIME PRN sleep #90 caps 03/10/22 (Benadryl) hydrocortisone 10 mg tablet 15 mg PO DAILY #30 tabs 03/10/22 cefuroxime axetil 500 mg tablet 500 mg PO BID 10 days #20 tabs 04/02/22 codeine 10 mg-guaifenesin 100 mg/5 10 ml PO Q6H PRN cough #237 mL 04/02/22 mL oral liquid Allergies Allergy/AdvReac Type Severity Reaction Status Date / Time tomato [TOMATO] Allergy Mild HIVES Verified 03/09/22 15:23 DIFFICULTY BREATHING hydrocodone [HYDROCODONE] Allergy Unknown RASH, Verified 03/09/22 15:23 AIRWAY CLOSES ibuprofen [From MOTRIN] Allergy Unknown STOMACH Verified 03/09/22 15:23 UPSET, vomiting trazodone [TRAZODONE] Allergy Unknown UNKNOWN, Verified 03/09/22 15:23 stomach upset black pepper [BLACK PEPPER] AdvReac Severe DIFFICULTY Verified 03/09/22 15:23 BREATHING, hives Review of Systems Review of Systems: Yes all other systems are reviewed and are negative [facility] Past Medical History 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 Diverticulosis GERD (gastroesophageal reflux disease) History of bipolar disorder History of schizophrenia Hypercholesterolemia Hypertension Insomnia Numbness of left hand Renal calculi Spondylosis of lumbar spine Type 2 diabetes mellitus with hyperglycemia Vitamin D deficiency Surgical History H/O: hysterectomy History of tubal ligation Hx of bariatric surgery Family History Family History Father Medical history unknown Mother Medical history unknown Paternal Aunt Uterine cancer Diabetes Hypertension Paternal Uncle Liver cancer Heart attack Maternal Aunt Stroke Family/Other Chronic mental illness Sister Uterine cancer Schizophrenia Brother Substance abuse Other Mental health disorder Social History Social History Household Members: None Housing: Apartment Do you presently have visiting nurse or other home services: Yes Alcohol intake: never Patient Tobacco Use Status: Never used Tobacco e-Cigarette/Vaping Use: Never Used Second Hand Smoke Exposure: No Use of substances other than those prescribed or required for medical reasons: No Advance Directives: No Advance Directives Information Provided: No Patient : No service: No Current occupational status: disabled Current occupational exposures/hazards: No Cognitive needs: No Hearing needs: No Vision needs: No Physical Exam ED Vital Signs: Vital Signs - 24 hr 04/02/22 17:00 04/02/22 18:11 04/02/22 20:47 Temperature 97.2 F Pulse Rate 81 96 83 Respiratory Rate 14 13 16 Blood Pressure 91/54 L 143/61 H 92/53 L Pulse Oximetry 97 Oxygen Delivery Method Room Air Room Air Room Air BMI result Body Mass Index 21.5 Appearance: Alert. Oriented X3. No acute distress. Frequent cough Eyes: PERRLA, No Nystagmus ENT: Pharynx normal. Oral Mucosa moist Neck: Normal inspection. Neck supple. CVS: Normal heart rate and rhythm. Pulses normal. Respiratory: No respiratory distress. Equal air entry bilateral, no wheezing/rales/rhonchi Abdomen: Soft and mild tenderness epigastric and right upper quadrant Bowel sounds are present, no mass palpable, no CVA tenderness Skin: Skin warm and dry. Normal skin color. Normal skin turgor. Extremities: No lower extremity edema. No calf tenderness Neuro: Oriented X 3. No motor deficit. 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 Result diagrams: 04/02/22 18:59 04/02/22 17:38 Labs: Lab Results 04/02/22 04/02/22 04/02/22 Range/Units 17:07 17:09 17:24 WBC (4.8-10.8) X10*3/uL RBC (4.20-5.50) X10*6/uL Hgb (12.0-16.0) g/dl Hct (37.0-47.0) % MCV (80.0-98.0) fL MCH (27.0-33.0) pg MCHC (31.0-35.0) g/dl RDW (11.0-16.0) % Plt Count (160-400) X10*3/uL MPV (9.4-12.3) fL Immature Gran % (Auto) (0.0-0.4) % Neut % (Auto) (45-73) % Lymph % (Auto) (20-40) % [place] % (Auto) (2-11) % Eos % (Auto) (0-4) % Baso % (Auto) (0-2) % Lymph # (Auto) (1.2-4.9) X10*3/uL [place] # (Auto) (0.1-1.2) X10*3/uL Eos # (Auto) (0.0-0.4) X10*3/uL Baso # (Auto) (0.0-0.2) X10*3/uL Abs Immat Gran (auto) (0.00-0.03) X10*3/uL Absolute Neuts (auto) (2.0-8.3) x10*3/uL Absolute Nucleated RBC (0.0-0.012) X10*3/uL Nucleated RBC % (auto) (0.0-0.2) /100WBC Sodium (135-145) mmol/L Potassium (3.3-5.1) mmol/L Chloride (96-108) mmol/L Carbon Dioxide (22-29) mmol/L Anion Gap (12-20) BUN (9-16) mg/dL Creatinine (0.5-1.4) mg/dL Estim Creat Clear Calc Estimated GFR POC Glucose 28 L* 66 (60-115) mg/dL Random Glucose (60-115) mg/dL Calcium (8.4-10.2) mg/dL Total Bilirubin (0.0-1.0) mg/dL Direct Bilirubin (0.0-0.5) mg/dL AST (5-31) U/L ALT (0-31) U/L Alkaline Phosphatase (39-117) U/L Total Protein (6.5-8.0) g/dL Albumin (3.5-5.0) g/dL Urine Color Urine Appearance Urine pH (5.0-9.0) Ur Specific [place] (1.005-1.025) Urine Protein (Neg-Trace) mg/dL Urine Glucose (UA) (Negative) mg/dL Urine Ketones (Negative) mg/dL Urine Blood (Negative) Urine Nitrite (Negative) Ur Leukocyte Esterase (Negative) Urine RBC (0-2) /HPF Urine WBC (0-5) /HPF Ur Squamous Epith Cells (0-2) /HPF Urine Bacteria (None Seen) Hyaline Casts (0-2) /LPF COVID-19 (ANGELA) Negative (Negative) COVID-19 Clin Com See Note S. pyogenes GrpA BRIDGER (Negative) 04/02/22 04/02/22 04/02/22 Range/Units 17:38 18:59 18:59 WBC 11.0 H (4.8-10.8) X10*3/uL RBC 3.22 L D (4.20-5.50) X10*6/uL Hgb 9.4 L D (12.0-16.0) g/dl Hct 28.8 L D (37.0-47.0) % MCV 89.4 (80.0-98.0) fL MCH 29.2 (27.0-33.0) pg MCHC 32.6 (31.0-35.0) g/dl RDW 13.0 (11.0-16.0) % Plt Count 367 (160-400) X10*3/uL MPV 9.8 (9.4-12.3) fL Immature Gran % (Auto) 0.5 H (0.0-0.4) % Neut % (Auto) 71.5 (45-73) % Lymph % (Auto) 18.2 L (20-40) % [place] % (Auto) 8.8 (2-11) % Eos % (Auto) 0.6 (0-4) % Baso % (Auto) 0.4 (0-2) % Lymph # (Auto) 2.0 (1.2-4.9) X10*3/uL [place] # (Auto) 1.0 (0.1-1.2) X10*3/uL Eos # (Auto) 0.1 (0.0-0.4) X10*3/uL Baso # (Auto) 0.0 (0.0-0.2) X10*3/uL Abs Immat Gran (auto) 0.05 H (0.00-0.03) X10*3/uL Absolute Neuts (auto) 7.9 (2.0-8.3) x10*3/uL Absolute Nucleated RBC 0.000 (0.0-0.012) X10*3/uL Nucleated RBC % (auto) 0.0 (0.0-0.2) /100WBC Sodium 139 (135-145) mmol/L Potassium 4.1 (3.3-5.1) mmol/L Chloride 103 (96-108) mmol/L Carbon Dioxide 23 (22-29) mmol/L Anion Gap 17 (12-20) BUN 15 (9-16) mg/dL Creatinine 0.63 (0.5-1.4) mg/dL Estim Creat Clear Calc 92.9 Estimated GFR > 60 POC Glucose (60-115) mg/dL Random Glucose 115 (60-115) mg/dL Calcium 9.0 (8.4-10.2) mg/dL Total Bilirubin 0.4 (0.0-1.0) mg/dL Direct Bilirubin < 0.2 (0.0-0.5) mg/dL AST 11 (5-31) U/L ALT 10 (0-31) U/L Alkaline Phosphatase 57 (39-117) U/L Total Protein 6.9 (6.5-8.0) g/dL Albumin 4.2 (3.5-5.0) g/dL Urine Color Urine Appearance Urine pH (5.0-9.0) Ur Specific [place] (1.005-1.025) Urine Protein (Neg-Trace) mg/dL Urine Glucose (UA) (Negative) mg/dL Urine Ketones (Negative) mg/dL Urine Blood (Negative) Urine Nitrite (Negative) Ur Leukocyte Esterase (Negative) Urine RBC (0-2) /HPF Urine WBC (0-5) /HPF Ur Squamous Epith Cells (0-2) /HPF Urine Bacteria (None Seen) Hyaline Casts (0-2) /LPF COVID-19 (ANGELA) (Negative) COVID-19 Clin Com S. pyogenes GrpA BRIDGER Negative (Negative) 04/02/22 Range/Units 19:24 WBC (4.8-10.8) X10*3/uL RBC (4.20-5.50) X10*6/uL Hgb (12.0-16.0) g/dl Hct (37.0-47.0) % MCV (80.0-98.0) fL MCH (27.0-33.0) pg MCHC (31.0-35.0) g/dl RDW (11.0-16.0) % Plt Count (160-400) X10*3/uL MPV (9.4-12.3) fL Immature Gran % (Auto) (0.0-0.4) % Neut % (Auto) (45-73) % Lymph % (Auto) (20-40) % [place] % (Auto) (2-11) % Eos % (Auto) (0-4) % Baso % (Auto) (0-2) % Lymph # (Auto) (1.2-4.9) X10*3/uL [place] # (Auto) (0.1-1.2) X10*3/uL Eos # (Auto) (0.0-0.4) X10*3/uL Baso # (Auto) (0.0-0.2) X10*3/uL Abs Immat Gran (auto) (0.00-0.03) X10*3/uL Absolute Neuts (auto) (2.0-8.3) x10*3/uL Absolute Nucleated RBC (0.0-0.012) X10*3/uL Nucleated RBC % (auto) (0.0-0.2) /100WBC Sodium (135-145) mmol/L Potassium (3.3-5.1) mmol/L Chloride (96-108) mmol/L Carbon Dioxide (22-29) mmol/L Anion Gap (12-20) BUN (9-16) mg/dL Creatinine (0.5-1.4) mg/dL Estim Creat Clear Calc Estimated GFR POC Glucose (60-115) mg/dL Random Glucose (60-115) mg/dL Calcium (8.4-10.2) mg/dL Total Bilirubin (0.0-1.0) mg/dL Direct Bilirubin (0.0-0.5) mg/dL AST (5-31) U/L ALT (0-31) U/L Alkaline Phosphatase (39-117) U/L Total Protein (6.5-8.0) g/dL Albumin (3.5-5.0) g/dL Urine Color Yellow Urine Appearance Clear Urine pH 7.0 (5.0-9.0) Ur Specific [place] 1.020 (1.005-1.025) Urine Protein Trace (Neg-Trace) mg/dL Urine Glucose (UA) Negative (Negative) mg/dL Urine Ketones Negative (Negative) mg/dL Urine Blood Negative (Negative) Urine Nitrite Negative (Negative) Ur Leukocyte Esterase Trace H (Negative) Urine RBC 0-2 (0-2) /HPF Urine WBC 6-10 H (0-5) /HPF Ur Squamous Epith Cells 3-5 (0-2) /HPF Urine Bacteria 1+ (None Seen) Hyaline Casts 0-2 (0-2) /LPF COVID-19 (ANGELA) (Negative) COVID-19 Clin Com S. pyogenes GrpA BRIDGER (Negative) Discharge Plan Discharge Clinical Impression: Acute bronchitis Patient Disposition: Home, Self-Care Instructions: Non-diabetic Hypoglycemia (ED), Acute Bronchitis (ED) Additional Instructions: Take antibiotics and cough syrup as prescribed Follow-up with your bleeding surgery and GI for further management Have small amount of food every 2 hours Prescriptions: New cefuroxime axetil 500 mg tablet 500 mg PO BID 10 Days Qty: 20 0RF codeine-guaifenesin 10-100 mg/5 mL liquid 10 ml PO Q6H PRN (Reason: cough) Qty: 237 0RF No Action vitamin B complex [B Complex-Vitamin B12] Tablet 1 tab PO DAILY Qty: 30 6RF Rx Instructions: 1,000mcg dose daily (DME) blood pressure monitor [Blood Pressure Kit] Kit See Rx Instructions .Route Qty: 1 0RF Rx Instructions: As directed (DME) blood-glucose meter [FreeStyle Lite Meter] Kit See Rx Instructions .ROUTE .MEDSUPPLY Qty: 1 0RF Rx Instructions: As directed (DME) lancets [FreeStyle Lancets] 28 gauge misc See Rx Instructions .ROUTE .MEDSUPPLY Qty: 100 3RF Rx Instructions: As directed check BS QD atorvastatin 20 mg tablet 20 mg PO DAILY Qty: 90 3RF (DME) CANE See Rx Instructions .Route .MEDSUPPLY Qty: 1 0RF Rx Instructions: As directed (DME) WRIST BRACE See Rx Instructions .Route .MEDSUPPLY Qty: 1 0RF Rx Instructions: As directed (DME) BATH CHAIR See Rx Instructions .Route .MEDSUPPLY Qty: 1 0RF Rx Instructions: As directed (DME) LIFELINE ALERT SYSTEM See Rx Instructions .Route .MEDSUPPLY Qty: 1 0RF Rx Instructions: As directed (DME) ALCOHOL PADS See Rx Instructions .Route .MEDSUPPLY Qty: 100 3RF Rx Instructions: As directed sucralfate 1 gram tablet 1 g PO BID Qty: 180 3RF dicyclomine 20 mg tablet 20 mg PO BID Qty: 60 0RF lidocaine [Lidoderm] 5 % adhesive patch,medicated 1 patch topical DAILY 30 Days Qty: 30 3RF Rx Instructions: leave on most painful area for up to 12 hrs (DME) ENSURE once a day See Rx Instructions .Route .MEDSUPPLY Qty: 90 0RF Rx Instructions: As directed hydrocortisone 10 mg tablet 15 mg PO DAILY Qty: 30 0RF Rx Instructions: Please have patient take 1 tablet (10 mg) in a.m. and half a tablet (5 mg) in p.m. diphenhydramine HCl [Benadryl] 25 mg capsule 25 mg PO BEDTIME PRN (Reason: sleep) Qty: 90 2RF venlafaxine 150 mg capsule,extended release 24hr 1 cap PO DAILY quetiapine 50 mg tablet 1 tab PO BID cyclobenzaprine 10 mg tablet 10 mg PO TID Qty: 10 0RF famotidine 40 mg tablet 1 tab PO BEDTIME hydroxyzine pamoate 50 mg capsule 1 cap PO BID PRN (Reason: Anxiety) acetaminophen 500 mg tablet 2 tab PO Q8H ondansetron 4 mg tablet,disintegrating 1 tab PO Q8H PRN (Reason: nausea) cholecalciferol (vitamin D3) [Vitamin D3] 50 mcg (2,000 unit) tablet 1 tab PO DAILY Linzess 290 mcg capsule 1 cap PO DAILY tramadol 50 mg tablet 50 mg PO Q12H PRN (Reason: Pain (Scale Score 4-6)) pantoprazole 40 mg tablet,delayed release (DR/EC) 40 mg PO DAILY@0630 zolpidem 10 mg tablet 10 mg PO BEDTIME PRN (Reason: Sleep) lactulose 10 gram/15 mL solution 10 g PO DAILY (DME) FreeStyle Lite Strips Strip See Rx Instructions .ROUTE .MEDSUPPLY Qty: 100 3RF Rx Instructions: As directed check TID ascorbate calcium (vitamin C) 500 mg tablet 500 mg PO DAILY tramadol 50 mg tablet 50 mg PO Q6H PRN (Reason: pain) 30 Days Qty: 60 0RF ziprasidone HCl 20 mg capsule 20 mg PO BID quetiapine 400 mg tablet 400 mg PO BEDTIME ursodiol 300 mg capsule 300 mg PO BID simethicone 80 mg tablet,chewable 80 mg PO Q6H PRN (Reason: GAS) clonazepam 1 mg tablet 1 mg PO TID GlucaGen HypoKit 1 mg recon soln 1 mg IVPUSH ONCE PRN (Reason: hypoglycemia below 55) Qty: 1 0RF Interventions: ED Discharge Assessment Last Done: 04/02/22 21:04 Discharge Date/Time: 04/02/22 21:05
[2022-04-02] MEDS: Dextrose 5 % and 0.45 % NaCl 1,000 ML 125 ML IVCONT (19:05)
[2022-04-02 19:13] LABS: Basophils Percent Auto 0.4 % (0-2); Eosinophils Absolute Auto 0.1 X10*3/uL (0.0-0.4); Eosinophils Percent Auto 0.6 % (0-4); Hematocrit 28.8 % (37.0-47.0); Hemoglobin 9.4 g/dl (12.0-16.0); Imm Gran Abs Auto 0.05 X10*3/uL (0.00-0.03); Imm Gran Pct Auto 0.5 % (0.0-0.4); Lymphocytes Percent Auto 18.2 % (20-40); Mean Corpuscular HGB Conc 32.6 g/dl (31.0-35.0); Mean Corpuscular Hemoglobin 29.2 pg (27.0-33.0); Mean Corpuscular Volume 89.4 fL (80.0-98.0); Mean Platelet Volume 9.8 fL (9.4-12.3); Monocytes Percent Auto 8.8 % (2-11); Neutrophils Absolute Auto 7.9 x10*3/uL (2.0-8.3); Neutrophils Percent Auto 71.5 % (45-73); Platelet Count 367 X10*3/uL (160-400); Red Blood Count 3.22 X10*6/uL (4.20-5.50)
[2022-04-02 19:18] LABS: Strep A Nucleic Acid Negative (Negative)
[2022-04-02 19:31] LABS: Appearance Urine Clear; Color Urine Yellow; Glucose Urine UA Negative (Negative); Leukocyte Esterase Urine Trace (Negative); Nitrite Urine Negative (Negative); Urine Blood Negative (Negative); Urine Ketones Negative (Negative); Urine Protein Trace mg/dL (Neg-Trace)
[2022-04-02 19:33] LABS: Bacteria Urine 1+ (None Seen); Hyaline Casts Urine 0-2 /LPF (0-2); RBC Urine 0-2 /HPF (0-2)
--- NOTE | 2022-04-02 19:40 | PC.NURSE ---
pt states difficulty eating and painful swallowing. pt has upcoming barium swallow and endoscopy scheduled. pt eating little cookies upon this rn entering the room, states she is unable to eat anything of substance at home.
[2022-04-02 20:47] VITALS: BP 92/53; PULSE 83; RESP 16
== END 2022-04-02 21:05 | disposition home or self-care (01) ==
PROVIDERS: Emergency Provider Internal Medicine; PCP Internal Medicine
DX: J20.9 Acute bronchitis, unspecified (principal); R10.11 Right upper quadrant pain; Z20.822 Contact with and (suspected) exposure to COVID-19; Z79.899 Other long term (current) drug therapy
CPT/HCPCS: 80048; 80076; 81001; 82947; 85025; 87635; 87651; 96365; 96366; 96375; 99284; J1610

== ENCOUNTER 2022-04-05 08:42 | Outpatient (REF) | payer OTHER, SELFPAY ==
--- NOTE | ~2022-04-05 | FL_ITS ---
EXAMINATION: FL BARIUM SWALLOW CLINICAL INFORMATION: Dysphagia, oropharyngeal phase. COMPARISON: None TECHNIQUE: Barium swallow examination is performed using fluoroscopic evaluation in addition to multiple fluoroscopic spot views. The patient is imaged both upright and prone and using both thick and thin sulfate along with effervescent granules. Fluoroscopy time: 4.4 minutes DAP: 9.129 Gy-cm2 Images: 65 FINDINGS: Following oral administration of thick barium, there is normal propagation of bolus from the oral cavity into the pharynx and upper esophagus. There is slow propagation of bolus from the proximal to distal esophagus into the stomach. Moderate retained secretions and residual food seen within the mid and distal esophagus. This clears after oral administration of water. The GE junction is in spasm initially which opens up with subsequent oral administration of thin barium. There is a prominent indentation seen along the left fundus, likely the site of postsurgical change from gastric sleeve surgery. The stomach is small caliber but normal peristalsis in the stomach, duodenal bulb and the sweep. FL/FL barium swallow IMPRESSION: Evidence of previous gastric sleeve surgery with prominent indentation along the gastric fundus left lateral border. There is initial spasm at the gastroesophageal junction which opened with further oral ingestion of thin barium. No esophageal ulceration or obstruction seen. There was retained food material in the mid and distal esophagus at the beginning of the exam which cleared with time.
== END 2022-04-05 08:43 | disposition home or self-care (01) ==
LOC: HO.XRAY 08:42
PROVIDERS: Visit Provider Physician Assistant
DX: R13.12 Dysphagia, oropharyngeal phase (principal)
CPT/HCPCS: 74220

== ENCOUNTER → 2022-04-13 10:04 | Outpatient (BNVA) | payer OTHER, SELFPAY | PROVIDERS: PCP Internal Medicine; Visit Provider Internal Medicine Endocrinology, Diabetes & Metabolism | DX: E16.2 Hypoglycemia, unspecified (principal); Z98.84 Bariatric surgery status | CPT/HCPCS: 99212 ==

== ENCOUNTER 2022-04-25 12:10 | Emergency (ER) | payer OTHER, SELFPAY ==
--- NOTE | ~2022-04-25 | CT_ITS ---
EXAMINATION: CT ABDOMEN AND PELVIS WITHOUT CONTRAST CLINICAL INFORMATION: Right flank pain x2 weeks COMPARISON: CT abdomen pelvis 12/28/2021 TECHNIQUE: Multidetector volumetric imaging was performed from the superior aspect of the liver through the pubic symphysis. Sagittal and coronal reformatted images were obtained on the technologist's workstation. This CT examination was performed using dose optimization techniques as appropriate, variously including the following: *Automated exposure control *Adjustment of mA and/or kV according to patient size (this includes techniques or standardized protocols for targeted exams where dose is matched to indication/reason for exam; i.e. extremities or head) *Use of iterative reconstruction technique DLP: 343 mGy-cm FINDINGS: LUNG BASES: The visualized lung bases are unremarkable. LIVER, GALLBLADDER, AND BILIARY TREE: The liver is normal in size, shape, and attenuation. A small cyst is present in the right lobe of the liver. More were appreciated on the prior contrast-enhanced CT. No worrisome focal hepatic lesion or biliary ductal dilatation is present. The gallbladder is unremarkable with no evidence of radiopaque gallstones, gallbladder wall thickening, or obvious pericholecystic inflammatory changes. PANCREAS: Unremarkable. SPLEEN: Unremarkable. ADRENAL GLANDS: Unremarkable. KIDNEYS AND URETERS: The kidneys are normal in size, shape, and attenuation. A single tiny punctate 2 mm calculus is present in the right lower pole (4:286). This was present at the time of the prior study but not well appreciated secondary to the IV contrast menstruation (prior 4:267). No hydronephrosis, hydroureter, or other calculi seen. No perinephric stranding. BLADDER: Unremarkable. GASTROINTESTINAL TRACT: Prior gastric sleeve. The small and large bowel are unremarkable aside from colonic diverticula without diverticulitis. The appendix is unremarkable. ABDOMINAL WALL: No significant hernia is appreciated. LYMPH NODES: No retroperitoneal lymphadenopathy. VASCULAR: Unremarkable. PELVIC VISCERA: A tubular structure containing air is present in the vagina measuring 6.4 cm in length and 1.5 cm in diameter. Please correlate clinically. Status post hysterectomy. OSSEOUS STRUCTURES: Unremarkable. CT/CT abdomen pelvis wo IV con IMPRESSION: 2 mm punctate nonobstructing right renal calculus. Foreign body is present in the vagina status post hysterectomy. Please correlate clinically. Fleischner guidelines were followed.
[2022-04-25 12:30] VITALS: BP 119/72; PULSE 91; RESP 18; TEMP 37; O2SAT 91; BMI 21.0
[2022-04-25 12:58] LABS: Appearance Urine Clear; Color Urine Yellow; Glucose Urine UA Negative (Negative); Leukocyte Esterase Urine Negative (Negative); Nitrite Urine Negative (Negative); Specific Gravity - Urine >= 1.030 (1.005-1.025); Urine Blood Negative (Negative); Urine Ketones Trace mg/dL (Negative); Urine Protein Trace mg/dL (Neg-Trace)
[2022-04-25 12:59] LABS: UPreg QC Valid YES; Urine Pregnancy NEGATIVE (NEGATIVE)
[2022-04-25 14:00] LABS: MANUAL DIFF FLAG NO
[2022-04-25 14:01] LABS: Basophils Percent Auto 0.8 % (0-2); Eosinophils Absolute Auto 0.1 X10*3/uL (0.0-0.4); Eosinophils Percent Auto 1.7 % (0-4); Hematocrit 32.4 % (37.0-47.0); Hemoglobin 10.4 g/dl (12.0-16.0); Imm Gran Abs Auto 0.02 X10*3/uL (0.00-0.03); Imm Gran Pct Auto 0.4 % (0.0-0.4); Lymphocytes Absolute Auto 1.9 X10*3/uL (1.2-4.9); Mean Corpuscular HGB Conc 32.1 g/dl (31.0-35.0); Mean Corpuscular Hemoglobin 29.3 pg (27.0-33.0); Mean Corpuscular Volume 91.3 fL (80.0-98.0); Monocytes Absolute Auto 0.4 X10*3/uL (0.1-1.2); Monocytes Percent Auto 7.2 % (2-11); Neutrophils Absolute Auto 2.9 x10*3/uL (2.0-8.3); Neutrophils Percent Auto 54.9 % (45-73); Platelet Count 398 X10*3/uL (160-400); Red Blood Count 3.55 X10*6/uL (4.20-5.50); Red Cell Distribution Width 13.5 % (11.0-16.0); White Blood Count 5.3 X10*3/uL (4.8-10.8)
[2022-04-25 14:15] LABS: Anion Gap 14 (12-20); Blood Urea Nitrogen 23 mg/dL (9-16); Calcium 9.2 mg/dL (8.4-10.2); Carbon Dioxide 26 mmol/L (22-29); Chloride 107 mmol/L (96-108); Creatinine Clr Calc Pharmacy 79.1; Estimated Glomerular Filt Rate > 60; Glucose Random 91 mg/dL (60-115); Potassium 4.4 mmol/L (3.3-5.1); Sodium 143 mmol/L (135-145)
[2022-04-25 14:21] LABS: COVID-19 Test Negative (Negative); IDNOW Serial# 9DB6401D
--- NOTE | 2022-04-25 20:55 | ED.FEMALEGU ---
HPI - Female Genitourinary General Chief complaint: Urogenital-Female Stated complaint: burning sensation in abd/headaches/blurred vision Time Seen by Provider: 04/25/22 20:30 Source: patient Mode of arrival: ambulatory Limitations: no limitations History of Present Illness HPI Narrative: 41-year-old female with a past medical history of hypertension, diabetes, esophagitis (EGD 12/2020), obesity status post gastric sleeve in September [address] Callaway at [facility] with resultant 50 lb weight loss complicated by postgastectomy malabsorbtion and recurrent hypoglycemia presents to the ER with complaints of right flank/right lower quadrant/suprapubic abdominal pain for the past 2 weeks. She has a 2nd complaint of increased urinary urgency/frequency with burning sensation and itchiness to the vaginal area for the past few days. Reports that she was started on new medications from her PCP which include estradiol cream that she reports his for vaginal dryness, acarbose for glycemic control, Trospium Chloride otherwise does not have any other new medications that she was started on. She denies any thoughts of STDs. She denies any fevers, chills, dizziness, headaches, neck pain/stiffness, trouble swallowing or breathing, chest pain or shortness of breath, dyspnea exertion, nausea/vomiting, back pain, hematuria, abnormal vaginal discharge, lesions to the vaginal area or rashes, lower extremity edema or calf tenderness, recent travel, recent antibiotic usage or sick contacts or any other symptoms complaints or concerns at this time. MD elicited complaint: dysuria and genital itching Onset (ago): week(s) (2) Location of symptoms: external genitalia, RLQ, urethra, vaginal and flank (Right) Severity: moderate Quality of pain: burning and aching Consistency: constant Vaginal discharge: none Vaginal bleeding: none Urinary symptoms: Dysuria, Urgency, Frequency and Flank Pain Exacerbating factors: none Relieving factors: none Associated symptoms: abdominal pain Treatment prior to arrival: none Patient : No Related Data Home Medications Medication Instructions Recorded Confirmed lactulose 10 gram/15 mL oral 10 g PO DAILY 08/27/20 02/22/22 solution zolpidem 10 mg tablet 10 mg PO BEDTIME PRN Sleep 08/27/20 02/22/22 ascorbate calcium (vitamin C) 500 500 mg PO DAILY 09/08/21 02/22/22 mg tablet quetiapine 50 mg tablet 1 tab PO BID 09/22/21 02/22/22 venlafaxine 150 mg 1 cap PO DAILY 09/22/21 02/22/22 capsule,extended release 24 hr clonazepam 1 mg tablet 1 mg PO TID 10/26/21 02/22/22 quetiapine 400 mg tablet 400 mg PO BEDTIME 10/26/21 02/22/22 simethicone 80 mg chewable tablet 80 mg PO Q6H PRN GAS 10/26/21 02/22/22 ursodiol 300 mg capsule 300 mg PO BID 10/26/21 02/22/22 ziprasidone HCl 20 mg capsule 20 mg PO BID 10/26/21 02/22/22 acetaminophen 500 mg tablet 2 tab PO Q8H 02/11/22 02/22/22 cholecalciferol (vitamin D3) 50 1 tab PO DAILY 02/11/22 02/22/22 mcg (2,000 unit) tablet (Vitamin D3) famotidine 40 mg tablet 1 tab PO BEDTIME 02/11/22 02/22/22 hydroxyzine pamoate 50 mg capsule 1 cap PO BID PRN Anxiety 02/11/22 02/22/22 linaclotide 290 mcg capsule 1 cap PO DAILY 02/11/22 02/22/22 (Linzess) ondansetron 4 mg disintegrating 1 tab PO Q8H PRN nausea 02/11/22 02/22/22 tablet pantoprazole 40 mg tablet,delayed 40 mg PO DAILY@0630 02/11/22 02/22/22 release Previous Rx's Medication Instructions Recorded vitamin B complex (B 1 tab PO DAILY #30 tabs 07/13/21 Complex-Vitamin B12 tablet) blood pressure monitor (Blood #1 ea 10/31/21 Pressure Kit) blood-glucose meter (FreeStyle #1 ea 10/31/21 Lite Meter kit) lancets 28 gauge (FreeStyle #100 ea 10/31/21 Lancets) atorvastatin 20 mg tablet 20 mg PO DAILY #90 tabs 01/27/22 BATH CHAIR #1 ea 01/31/22 CANE #1 ea 01/31/22 LIFELINE ALERT SYSTEM #1 ea 01/31/22 WRIST BRACE #1 ea 01/31/22 ALCOHOL PADS #100 ea 02/21/22 sucralfate 1 gram tablet 1 g PO BID #180 tabs 02/21/22 blood sugar diagnostic (FreeStyle #100 ea 02/22/22 Lite Strips) cyclobenzaprine 10 mg tablet 10 mg PO TID #10 tabs 03/06/22 ENSURE once a day #90 ea 03/09/22 glucagon 1 mg solution for 1 mg IVPUSH ONCE PRN hypoglycemia 03/09/22 injection (GlucaGen HypoKit) below 55 #1 ea lidocaine 5 % topical patch 1 patch topical DAILY 30 days #30 03/09/22 (Lidoderm) ea diphenhydramine HCl 25 mg capsule 25 mg PO BEDTIME PRN sleep #90 caps 03/10/22 (Benadryl) cefuroxime axetil 500 mg tablet 500 mg PO BID 10 days #20 tabs 04/02/22 codeine 10 mg-guaifenesin 100 mg/5 10 ml PO Q6H PRN cough #237 mL 04/02/22 mL oral liquid tramadol 50 mg tablet 50 mg PO Q6H PRN pain 30 days #60 04/10/22 tabs acarbose 25 mg tablet 25 mg PO TID #90 tabs 04/13/22 dicyclomine 20 mg tablet 20 mg PO BID #60 tabs 04/24/22 oxycodone 5 mg tablet 5 mg PO Q6H PRN pain #14 tabs 04/25/22 terconazole 0.8 % vaginal cream 1 appful vaginal BEDTIME 04/25/22 Candidiasis vaginitis 3 days #20 grams Allergies Allergy/AdvReac Type Severity Reaction Status Date / Time tomato [TOMATO] Allergy Mild HIVES Verified 04/13/22 10:10 DIFFICULTY BREATHING hydrocodone [HYDROCODONE] Allergy Unknown RASH, Verified 04/13/22 10:10 AIRWAY CLOSES ibuprofen [From MOTRIN] Allergy Unknown STOMACH Verified 04/13/22 10:10 UPSET, vomiting trazodone [TRAZODONE] Allergy Unknown UNKNOWN, Verified 04/13/22 10:10 stomach upset black pepper [BLACK PEPPER] AdvReac Severe DIFFICULTY Verified 04/13/22 10:10 BREATHING, hives Review of Systems Review of Systems: Constitutional : No Fever, No Chills ENT/Mouth : No sore throat, No Rhinorrhea Eyes: No Eye Pain, No Redness Cardiovascular : No Chest Pain, No SOB Respiratory : No Cough, No Sputum, No Wheezing Gastrointestinal : No Nausea, No Vomiting, No Diarrhea, + RLQ and Right Flank abdominal pain, Genitourinary : + dysuria/urinary urgency/urinary frequency, No irregular bleeding, No pelvic pain Musculoskeletal : No Myalgias Skin : No rash Neuro : No Weakness, No Headache Psych : No Anxiety/Panic, No Depression Heme/Lymph: No bruising, No Lymphadenopathy Endocrine : No Polyuria, No Polydipsia Yes all other systems are reviewed and are negative PMFSH Past Medical History Attestation statement: The following information was validated with the patient. 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 Diverticulosis GERD (gastroesophageal reflux disease) History of bipolar disorder History of schizophrenia Hypercholesterolemia Hypertension Insomnia Numbness of left hand Renal calculi Spondylosis of lumbar spine Type 2 diabetes mellitus with hyperglycemia Vitamin D deficiency Surgical History (Updated 04/13/22 @ 10:11 by MIKHAIL Polanco) H/O: hysterectomy History of tubal ligation Hx of bariatric surgery Family History Family History Father Medical history unknown Mother Medical history unknown Paternal Aunt Uterine cancer Diabetes Hypertension Paternal Uncle Liver cancer Heart attack Maternal Aunt Stroke Family/Other Chronic mental illness Sister Uterine cancer Schizophrenia Brother Substance abuse Other Mental health disorder Social History Social History Household Members: None Housing: Apartment Do you presently have visiting nurse or other home services: Yes Alcohol intake: never Patient Tobacco Use Status: Never used Tobacco e-Cigarette/Vaping Use: Never Used Second Hand Smoke Exposure: No Advance Directives: No Advance Directives Information Provided: No Patient : No service: No Current occupational status: disabled Current occupational exposures/hazards: No Cognitive needs: No Hearing needs: No Vision needs: No Physical Exam Vital Signs: Vital Signs: Last Vital Signs Temp 98.6 F 04/25/22 12:30 Pulse 91 04/25/22 12:30 Resp 18 04/25/22 12:30 BP 119/72 04/25/22 12:30 Pulse Ox 91 L 04/25/22 12:30 O2 Del Method 04/25/22 12:30 BMI result Body Mass Index 21.0 vital signs have been reviewed as normal and appeared to be correct. Blood pressure normal. Heart rate normal. Respiration rate normal. Temperature normal. Oxygen saturation normal. Appearance: Alert. Oriented X3. No acute distress. Head: Normal external exam. Normocephalic. Atraumatic. Eyes: PERRLA. EOMI. Conjunctiva and sclera normal. Eyelids normal. ENT: Pharynx normal. Uvula midline. Moist mucous membranes. No lesions/ulcerations or masses noted on the tongue. Normal voice. Neck: Normal inspection. Neck supple. FROM. No adenopathy. Thyroid Normal. No meningeal signs. CVS: Normal heart rate and rhythm. Heart sound normal. Pulses normal throughout. No murmurs/rales/gallops. Respiratory: No respiratory distress. Painless inspiration. Breath sounds normal. No wheezes/rales/rhonchi noted. No accessory muscle usage noted or decreased air movement noted. Abdomen: Soft and mild TTp to right flank/RLQ. Nondistended. No guarding. No rigidity. Bowel sounds normal in all 4 quadrants. No distention noted. No organomegaly noted. No visible injury noted. No rebound tenderness. Negative Rovsing sign. Negative obturator's sign. Negative psoas sign. Negative Hewitt sign. Back: + Right sided CVA tenderness. No Left CVAT. Full range of motion noted. Nontender. No signs of trauma. Patient neuro intact bilaterally and distally on all 4 extremities. Patient's reflexes intact bilaterally and distally on all 4 extremities. No rashes/lesion/induration/fluctuance or signs of infection noted. : Supervised by AMARJIT Osman Normal external appearance of urethra. No lesions/lacerations or discharge or tenderness noted. Speculum exam normal appearance/palpation of vagina normal. No abnormal vaginal discharge noted. Otherwise no vaginal erythema. No foreign bodies noted. No vaginal laceration/lesions or active bleeding noted. No tissue present in vagina. No vaginal mass noted. No vaginal swelling noted. No vaginal tenderness noted. No Bartholin cyst noted. Negative chandelier sign. Normal bimanual exam. Bladder normal to palpation. Normal rectovaginal exam. Skin: Skin warm and dry. Normal skin color. Normal skin turgor. No rashes/lesions/lacerations noted. Extremities: Extremities exhibit normal range of motion and nontender. Neuro: Oriented X 3. No motor deficit. No sensory deficit. Reflexes normal. Normal steady gait. No focal neuro deficits noted. CN's II-XII intact bilaterally? Vascular: + radial pulses/+ 2 distal pedal pulses/+2 dorsalis pedis b/l. Normal cap refill. No cyanosis noted to upper extremity nails and lower extremity toes nails. Course Course Course Narrative: 20:48 - 41-year-old female with a past medical history of hypertension, diabetes, esophagitis (EGD 12/2020), obesity status post gastric sleeve in September [address] Callaway at [facility] with resultant 50 lb weight loss complicated by postgastectomy malabsorbtion and recurrent hypoglycemia presents to the ER with complaints of right flank/right lower quadrant/suprapubic abdominal pain for the past 2 weeks. She has a 2nd complaint of increased urinary urgency/frequency with burning sensation and itchiness to the vaginal area for the past few days. Reports that she was started on new medications from her PCP which include estradiol cream that she reports his for vaginal dryness, acarbose for glycemic control, Trospium Chloride otherwise does not have any other new medications that she was started on. She denies any thoughts of STDs. Patient had labs while she was in the waiting room she has a mild baseline anemia which is similar compared to prior H&H today 10.4/32.4 which is improved. BUN 23. Otherwise all other labs are within normal limits. UA WNL. Urine negative. Plan: CT scan of abd/pelvis without IV contrast, performed a vaginal exam and obtain gonorrhea/chlamydia/bacterial vaginosis/yeast/Trichomonas swabs and re-evaluate Reevaluation(s) Reevaluation #1: - CT scan abdomen pelvis without IV contrast revealed 2 mm puncture with nonobstructing right renal calculus. Also foreign body is present in the vagina status post hysterectomy please correlate clinically. - therefore on speculum exam I do not see any foreign bodies. She does have a suture line from her hysterectomy 5 years ago at the 09:00 o'clock aspect and it appears that she had sutures there and the suture line dehiscence she has a small open area and I am wondering if this is related to air trapping from this suture dehiscence. - Dr. Moore called the radiologist and they reported that this could possibly be air trapping. Dr. Moore also evaluate the patient and perform a speculum exam and bimanual exam and he also does not visualize or palpate any foreign bodies. - therefore Dr. Bobby to come and examine patient at this time. Time: 23:28 Reevaluation #2: - Dr. Bobby came in to evaluate the patient. He does not see any foreign bodies. He does not believe this is air trapping. He reported that we should treat the patient for yeast infection and she should continue her estradiol and to follow-up with OBGYN as an outpatient as needed. Patient understands agrees with this plan. Time: 23:52 MDM - Female Genitourinary Medical Records Attestation: I reviewed the patient's medical records. Lab Data Attestation: I reviewed the patient's lab results. Result diagrams: 04/25/22 13:44 04/25/22 13:44 Labs: Lab Results 04/25/22 04/25/22 04/25/22 Range/Units 12:48 12:48 13:44 WBC 5.3 (4.8-10.8) X10*3/uL RBC 3.55 L (4.20-5.50) X10*6/uL Hgb 10.4 L (12.0-16.0) g/dl Hct 32.4 L (37.0-47.0) % MCV 91.3 (80.0-98.0) fL MCH 29.3 (27.0-33.0) pg MCHC 32.1 (31.0-35.0) g/dl RDW 13.5 (11.0-16.0) % Plt Count 398 (160-400) X10*3/uL MPV 10.0 (9.4-12.3) fL Immature Gran % (Auto) 0.4 (0.0-0.4) % Neut % (Auto) 54.9 (45-73) % Lymph % (Auto) 35.0 (20-40) % [place] % (Auto) 7.2 (2-11) % Eos % (Auto) 1.7 (0-4) % Baso % (Auto) 0.8 (0-2) % Lymph # (Auto) 1.9 (1.2-4.9) X10*3/uL [place] # (Auto) 0.4 (0.1-1.2) X10*3/uL Eos # (Auto) 0.1 (0.0-0.4) X10*3/uL Baso # (Auto) 0.0 (0.0-0.2) X10*3/uL Abs Immat Gran (auto) 0.02 (0.00-0.03) X10*3/uL Absolute Neuts (auto) 2.9 (2.0-8.3) x10*3/uL Absolute Nucleated RBC 0.000 (0.0-0.012) X10*3/uL Nucleated RBC % (auto) 0.0 (0.0-0.2) /100WBC Sodium (135-145) mmol/L Potassium (3.3-5.1) mmol/L Chloride (96-108) mmol/L Carbon Dioxide (22-29) mmol/L Anion Gap (12-20) BUN (9-16) mg/dL Creatinine (0.5-1.4) mg/dL Estim Creat Clear Calc Estimated GFR POC Glucose (60-115) mg/dL Random Glucose (60-115) mg/dL Calcium (8.4-10.2) mg/dL Urine Color Yellow Urine Appearance Clear Urine pH 6.0 (5.0-9.0) Ur Specific [place] >= 1.030 H (1.005-1.025) Urine Protein Trace (Neg-Trace) mg/dL Urine Glucose (UA) Negative (Negative) mg/dL Urine Ketones Trace (Negative) mg/dL Urine Blood Negative (Negative) Urine Nitrite Negative (Negative) Ur Leukocyte Esterase Negative (Negative) Urine Test NEGATIVE (NEGATIVE) COVID-19 (ANGELA) (Negative) COVID-19 Clin Com 04/25/22 04/25/22 04/25/22 Range/Units 13:44 13:44 21:31 WBC (4.8-10.8) X10*3/uL RBC (4.20-5.50) X10*6/uL Hgb (12.0-16.0) g/dl Hct (37.0-47.0) % MCV (80.0-98.0) fL MCH (27.0-33.0) pg MCHC (31.0-35.0) g/dl RDW (11.0-16.0) % Plt Count (160-400) X10*3/uL MPV (9.4-12.3) fL Immature Gran % (Auto) (0.0-0.4) % Neut % (Auto) (45-73) % Lymph % (Auto) (20-40) % [place] % (Auto) (2-11) % Eos % (Auto) (0-4) % Baso % (Auto) (0-2) % Lymph # (Auto) (1.2-4.9) X10*3/uL [place] # (Auto) (0.1-1.2) X10*3/uL Eos # (Auto) (0.0-0.4) X10*3/uL Baso # (Auto) (0.0-0.2) X10*3/uL Abs Immat Gran (auto) (0.00-0.03) X10*3/uL Absolute Neuts (auto) (2.0-8.3) x10*3/uL Absolute Nucleated RBC (0.0-0.012) X10*3/uL Nucleated RBC % (auto) (0.0-0.2) /100WBC Sodium 143 (135-145) mmol/L Potassium 4.4 (3.3-5.1) mmol/L Chloride 107 (96-108) mmol/L Carbon Dioxide 26 (22-29) mmol/L Anion Gap 14 (12-20) BUN 23 H D (9-16) mg/dL Creatinine 0.74 (0.5-1.4) mg/dL Estim Creat Clear Calc 79.1 Estimated GFR > 60 POC Glucose 82 (60-115) mg/dL Random Glucose 91 (60-115) mg/dL Calcium 9.2 (8.4-10.2) mg/dL Urine Color Urine Appearance Urine pH (5.0-9.0) Ur Specific [place] (1.005-1.025) Urine Protein (Neg-Trace) mg/dL Urine Glucose (UA) (Negative) mg/dL Urine Ketones (Negative) mg/dL Urine Blood (Negative) Urine Nitrite (Negative) Ur Leukocyte Esterase (Negative) Urine Test (NEGATIVE) COVID-19 (ANGELA) Negative (Negative) COVID-19 Clin Com See Note Imaging Data CT scan abdomen pelvis without IV contrast: Attestation: I personally reviewed and interpreted this imaging study as follows: Radiologist's impression: FINDINGS: LUNG BASES: The visualized lung bases are unremarkable.? LIVER, GALLBLADDER, AND BILIARY TREE: The liver is normal in size, shape, and attenuation. A small cyst is present in the right lobe of the liver. More were appreciated on the prior contrast-enhanced CT. No worrisome focal hepatic lesion or biliary ductal dilatation is present. The gallbladder is unremarkable with no evidence of radiopaque gallstones, gallbladder wall thickening, or obvious pericholecystic inflammatory changes.? PANCREAS: Unremarkable.? SPLEEN: Unremarkable.? ADRENAL GLANDS: Unremarkable.? KIDNEYS AND URETERS: The kidneys are normal in size, shape, and attenuation. A single tiny punctate 2 mm calculus is present in the right lower pole (4:286). This was present at the time of the prior study but not well appreciated secondary to the IV contrast menstruation (prior 4:267). No hydronephrosis, hydroureter, or other calculi seen. No perinephric stranding. ? BLADDER: Unremarkable.? GASTROINTESTINAL TRACT: Prior gastric sleeve. The small and large bowel are unremarkable aside from colonic diverticula without diverticulitis. The appendix is unremarkable.? ABDOMINAL WALL: No significant hernia is appreciated.? LYMPH NODES: No retroperitoneal lymphadenopathy. VASCULAR: Unremarkable. PELVIC VISCERA: A tubular structure containing air is present in the vagina measuring 6.4 cm in length and 1.5 cm in diameter. Please correlate clinically. Status post hysterectomy. OSSEOUS STRUCTURES: Unremarkable.? CT/CT abdomen pelvis wo IV con IMPRESSION: 2 mm punctate nonobstructing right renal calculus. Foreign body is present in the vagina status post hysterectomy. Please correlate clinically. ? Fleischner guidelines were followed. Critical Care Time Critical Care Time Critical Care Time: Yes Total Critical Care Time: 60 Attestation: I personally attest to this time spent taking care of the patient Discharge Plan Discharge Clinical Impression: Renita vaginitis, Renal calculi Patient Disposition: Home, Self-Care Prescriptions: New terconazole 0.8 % cream 1 appful vaginal BEDTIME 3 Days Qty: 20 0RF oxycodone 5 mg tablet 5 mg PO Q6H PRN (Reason: pain) Qty: 14 0RF Rx Instructions: Partial Fill upon patient request. No Action vitamin B complex [B Complex-Vitamin B12] Tablet 1 tab PO DAILY Qty: 30 6RF Rx Instructions: 1,000mcg dose daily (DME) blood pressure monitor [Blood Pressure Kit] Kit See Rx Instructions .Route Qty: 1 0RF Rx Instructions: As directed (DME) blood-glucose meter [FreeStyle Lite Meter] Kit See Rx Instructions .ROUTE .MEDSUPPLY Qty: 1 0RF Rx Instructions: As directed (DME) lancets [FreeStyle Lancets] 28 gauge misc See Rx Instructions .ROUTE .MEDSUPPLY Qty: 100 3RF Rx Instructions: As directed check BS QD atorvastatin 20 mg tablet 20 mg PO DAILY Qty: 90 3RF (DME) CANE See Rx Instructions .Route .MEDSUPPLY Qty: 1 0RF Rx Instructions: As directed (DME) WRIST BRACE See Rx Instructions .Route .MEDSUPPLY Qty: 1 0RF Rx Instructions: As directed ([facility]) BATH CHAIR See Rx Instructions .Route .MEDSUPPLY Qty: 1 0RF Rx Instructions: As directed ([facility]) LIFELINE ALERT SYSTEM See Rx Instructions .Route .MEDSUPPLY Qty: 1 0RF Rx Instructions: As directed ([facility]) ALCOHOL PADS See Rx Instructions .Route .MEDSUPPLY Qty: 100 3RF Rx Instructions: As directed sucralfate 1 gram tablet 1 g PO BID Qty: 180 3RF lidocaine [Lidoderm] 5 % adhesive patch,medicated 1 patch topical DAILY 30 Days Qty: 30 3RF Rx Instructions: leave on most painful area for up to 12 hrs (DME) ENSURE once a day See Rx Instructions .Route .MEDSUPPLY Qty: 90 0RF Rx Instructions: As directed diphenhydramine HCl [Benadryl] 25 mg capsule 25 mg PO BEDTIME PRN (Reason: sleep) Qty: 90 2RF tramadol 50 mg tablet 50 mg PO Q6H PRN (Reason: pain) 30 Days Qty: 60 0RF dicyclomine 20 mg tablet 20 mg PO BID Qty: 60 0RF venlafaxine 150 mg capsule,extended release 24hr 1 cap PO DAILY quetiapine 50 mg tablet 1 tab PO BID cyclobenzaprine 10 mg tablet 10 mg PO TID Qty: 10 0RF cefuroxime axetil 500 mg tablet 500 mg PO BID 10 Days Qty: 20 0RF codeine-guaifenesin 10-100 mg/5 mL liquid 10 ml PO Q6H PRN (Reason: cough) Qty: 237 0RF famotidine 40 mg tablet 1 tab PO BEDTIME hydroxyzine pamoate 50 mg capsule 1 cap PO BID PRN (Reason: Anxiety) acetaminophen 500 mg tablet 2 tab PO Q8H ondansetron 4 mg tablet,disintegrating 1 tab PO Q8H PRN (Reason: nausea) cholecalciferol (vitamin D3) [Vitamin D3] 50 mcg (2,000 unit) tablet 1 tab PO DAILY Linzess 290 mcg capsule 1 cap PO DAILY pantoprazole 40 mg tablet,delayed release (DR/EC) 40 mg PO DAILY@0630 zolpidem 10 mg tablet 10 mg PO BEDTIME PRN (Reason: Sleep) lactulose 10 gram/15 mL solution 10 g PO DAILY (DME) FreeStyle Lite Strips Strip See Rx Instructions .ROUTE .MEDSUPPLY Qty: 100 3RF Rx Instructions: As directed check TID ascorbate calcium (vitamin C) 500 mg tablet 500 mg PO DAILY ziprasidone HCl 20 mg capsule 20 mg PO BID quetiapine 400 mg tablet 400 mg PO BEDTIME ursodiol 300 mg capsule 300 mg PO BID simethicone 80 mg tablet,chewable 80 mg PO Q6H PRN (Reason: GAS) clonazepam 1 mg tablet 1 mg PO TID GlucaGen HypoKit 1 mg recon soln 1 mg IVPUSH ONCE PRN (Reason: hypoglycemia below 55) Qty: 1 0RF acarbose 25 mg tablet 25 mg PO TID Qty: 90 3RF Referrals: Po,Deirdre Raymundo MD [Primary Care Provider] - 2 days Ferny Bobby MD [Physician] - 1 week Print Language: Macedonian
[2022-04-25 21:36] LABS: Glucose, Whole Blood 82 mg/dL (60-115)
--- NOTE | 2022-04-26 00:55 | P.CONOB_ITS ---
[employer] - CN: HPI Data of Consult Consult date: 04/26/22 Primary Care Provider: Deirdre Cantrell MD Consult Narrative Narrative: I was consulted on Tye Leger who is a 41 year old female who presented emergency room complaining of vaginal burning associated with dysuria no frequency and no vaginal discharge, the patient start having those symptoms few weeks ago was started on estradiol could be an added trap mint in the vagina vaginal cream a week ago. The patient does not give history of use of any foreign body vaginally, and she is not sexually active. Urinalysis was negative in the emergency room. CT scan was done, showed a foreign body in the vagina, further call by NOEL Mathis in the emergency room discussing the case with the radiologist, the radiologist impression was could be air entrapment in the vagina cc:: CC: OB PMF Past Medical History 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 Diverticulosis GERD (gastroesophageal reflux disease) History of bipolar disorder History of schizophrenia Hypercholesterolemia Hypertension Insomnia Numbness of left hand Renal calculi Spondylosis of lumbar spine Type 2 diabetes mellitus with hyperglycemia Vitamin D deficiency Family History Family History Father Medical history unknown Mother Medical history unknown Paternal Aunt Uterine cancer Diabetes Hypertension Paternal Uncle Liver cancer Heart attack Maternal Aunt Stroke Family/Other Chronic mental illness Sister Uterine cancer Schizophrenia Brother Substance abuse Other Mental health disorder Surgical History Surgical History H/O: hysterectomy History of tubal ligation Hx of bariatric surgery Social History Social History Household Members: None Housing: Apartment Do you presently have visiting nurse or other home services: Yes Alcohol intake: never Patient Tobacco Use Status: Never used Tobacco e-Cigarette/Vaping Use: Never Used Second Hand Smoke Exposure: No Advance Directives: No Advance Directives Information Provided: No Patient : No service: No Current occupational status: disabled Current occupational exposures/hazards: No Cognitive needs: No Hearing needs: No Vision needs: No Meds Allergies Allergy/AdvReac Type Severity Reaction Status Date / Time tomato [TOMATO] Allergy Mild HIVES Verified 04/13/22 10:10 DIFFICULTY BREATHING hydrocodone [HYDROCODONE] Allergy Unknown RASH, Verified 04/13/22 10:10 AIRWAY CLOSES ibuprofen [From MOTRIN] Allergy Unknown STOMACH Verified 04/13/22 10:10 UPSET, vomiting trazodone [TRAZODONE] Allergy Unknown UNKNOWN, Verified 04/13/22 10:10 stomach upset black pepper [BLACK PEPPER] AdvReac Severe DIFFICULTY Verified 04/13/22 10:10 BREATHING, hives Home Medications Medication Instructions Recorded Confirmed Last Taken Type lactulose 10 gram/15 mL oral 10 g PO DAILY 08/27/20 02/22/22 Unknown History solution zolpidem 10 mg tablet 10 mg PO BEDTIME PRN Sleep 08/27/20 02/22/22 Unknown History ascorbate calcium (vitamin C) 500 500 mg PO DAILY 09/08/21 02/22/22 Unknown History mg tablet quetiapine 50 mg tablet 1 tab PO BID 09/22/21 02/22/22 Unknown History venlafaxine 150 mg 1 cap PO DAILY 09/22/21 02/22/22 Unknown History capsule,extended release 24 hr clonazepam 1 mg tablet 1 mg PO TID 10/26/21 02/22/22 Unknown History quetiapine 400 mg tablet 400 mg PO BEDTIME 10/26/21 02/22/22 Unknown History simethicone 80 mg chewable tablet 80 mg PO Q6H PRN GAS 10/26/21 02/22/22 Unknown History ursodiol 300 mg capsule 300 mg PO BID 10/26/21 02/22/22 Unknown History ziprasidone HCl 20 mg capsule 20 mg PO BID 10/26/21 02/22/22 Unknown History acetaminophen 500 mg tablet 2 tab PO Q8H 02/11/22 02/22/22 Unknown History cholecalciferol (vitamin D3) 50 1 tab PO DAILY 02/11/22 02/22/22 Unknown History mcg (2,000 unit) tablet (Vitamin D3) famotidine 40 mg tablet 1 tab PO BEDTIME 02/11/22 02/22/22 Unknown History hydroxyzine pamoate 50 mg capsule 1 cap PO BID PRN Anxiety 02/11/22 02/22/22 Unknown History linaclotide 290 mcg capsule 1 cap PO DAILY 02/11/22 02/22/22 Unknown History (Linzess) ondansetron 4 mg disintegrating 1 tab PO Q8H PRN nausea 02/11/22 02/22/22 Unknown History tablet pantoprazole 40 mg tablet,delayed 40 mg PO DAILY@0630 02/11/22 02/22/22 Unknown History release [employer] Physical Exam Vitals Vital signs: Temp Pulse Resp BP Pulse Ox O2 Del Method 98.6 F 91 18 119/72 91 L 04/25/22 12:30 04/25/22 12:30 04/25/22 12:30 04/25/22 12:30 04/25/22 12:30 04/25/22 12:30 BMI result Body Mass Index 21.0 Abdomen Auscultation/Inspection/Palpation: Normal bowel sounds, Soft and Non-distended Female Genitalia (Pelvic) Vulva: No lesions Vagina: Nontender Cervix: Cervix Surgically Absent Uterus: Uterus surgically absent Additional Comments: No evidence of foreign body in the vagina as seen on CT [employer] - Results Labs CBC & Chem 7: 04/25/22 13:44 04/25/22 13:44 Labs: Short CBC 04/25/22 Range/Units 13:44 WBC 5.3 (4.8-10.8) X10*3/uL Hgb 10.4 L (12.0-16.0) g/dl Hct 32.4 L (37.0-47.0) % Plt Count 398 (160-400) X10*3/uL BMP 04/25/22 13:44 Sodium 143 Potassium 4.4 Chloride 107 Carbon Dioxide 26 BUN 23 H D Creatinine 0.74 Calcium 9.2 Urine 04/25/22 04/25/22 Range/Units 12:48 12:48 Urine Color Yellow Urine Appearance Clear Urine pH 6.0 (5.0-9.0) Ur Specific [place] >= 1.030 H (1.005-1.025) Urine Protein Trace (Neg-Trace) mg/dL Urine Glucose (UA) Negative (Negative) mg/dL Urine Test NEGATIVE (NEGATIVE) Imaging CT scan - pelvis: Radiologist's impression: ITS Impressions Abdomen/Pelvis CT 04/25/22 21:02 IMPRESSION: 2 mm punctate nonobstructing right renal calculus. Foreign body is present in the vagina status post hysterectomy. Please correlate clinically. Fleischner guidelines were followed. Assessment and Plan (1) Vaginitis: Status: Acute Plan BV panel and Trichomonas taken, recommended to NOEL [place] in the emergency room to treat with Terazol 0.8% q.h.s. for 3 days. Discussed with the patient the finding on physical exam with no evidence of foreign body in the vagina as seen on CT scan, could be air entrapped per radiologist looking like a foreign body by CT. Instructions given the patient to follow-up in OBGYN office or come back to emergency room in case of persistence of vaginal symptoms, vaginal bleeding, fever, nausea or vomiting
[2022-04-26 05:52] LABS: CT PCR NOT DETECTED (Not Detect.); NG PCR NOT DETECTED (Not Detect.)
[2022-04-26 10:16] LABS: BV Int Neg Control Negative (Negative); BV Int Pos Control Positive (Positive)
== END 2022-04-26 00:26 | disposition home or self-care (01) ==
PROVIDERS: Physician Assistant Medical; Emergency Provider Emergency Medicine; PCP Internal Medicine
DX: N76.0 Acute vaginitis (principal); N20.0 Calculus of kidney; R10.9 Unspecified abdominal pain; R30.0 Dysuria; R51.9 Headache, unspecified; Z79.899 Other long term (current) drug therapy; Z20.822 Contact with and (suspected) exposure to COVID-19
CPT/HCPCS: 74176; 80048; 81003; 81025; 82947; 85025; 87480; 87491; 87510; 87591; 87635; 87660; 99282; 99284

== ENCOUNTER 2022-05-01 08:07 | Outpatient (REF) | payer OTHER, SELFPAY ==
[2022-05-01 09:31] LABS: Glucose Random 80 mg/dL (60-115)
[2022-05-01 10:01] LABS: Insulin 7 uU/mL (2-29)
[2022-05-01 11:35] LABS: Cortisol Random 8.5 ug/dL
[2022-05-03 05:52] LABS: C Peptide 1.63 ng/mL (0.80-3.85)
[2022-05-06 04:33] LABS: Beta-Hydroxybutyrate 0.23 mmol/L
[2022-05-07 03:47] LABS: Proinsulin 5.5 pmol/L (< OR = 18.8)
== END 2022-05-01 08:08 | disposition home or self-care (01) ==
LOC: HO.LAB 08:07
PROVIDERS: PCP Internal Medicine; Visit Provider Nurse Practitioner Family
DX: E16.2 Hypoglycemia, unspecified (principal)
CPT/HCPCS: 36415; 82010; 82533; 82947; 83525; 84206; 84681

== ENCOUNTER 2022-05-03 08:05 | Emergency (ER) | payer OTHER, SELFPAY ==
--- NOTE | ~2022-05-03 | US_ITS ---
Indication: Flank pain EXAMINATION: Ultrasound of the right kidney. Comparison CT dated 04/25/2022. Findings; Kidney measures 11 x 6.5 x 5.5 cm. Lower pole 4 mm probable nonobstructing calculus. Also in the lower pole another area of increased attenuation may represent renal calculi. Measures 5 mm. There is no hydronephrosis. US/US renal RT IMPRESSION: No hydronephrosis. Probable nonobstructing renal calculi lower pole right
[2022-05-03 08:08] VITALS: BP 106/73; PULSE 89; RESP 19; TEMP 36.6; O2SAT 98; BMI 21.0
--- NOTE | 2022-05-03 09:26 | ED.ABDPAIN ---
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 Driscoll in September now with malabsorption and hypoglycemic episodes comes to the ED with c/o R sided flank pain (for months) difficulty swallowing feeling like things get stuck with endoscopy in December 2020 showing esophagitis at GE jxn and barium swallow on 04/05 that showed initial spasm at GE junction. She notes she is depressed, doesn't feel well and now feels like it is affecting her ability to think. She lives alone. Her blood sugar drops all the time. CT scan 04/25/22 2mm punctate calculus noted R lower pole MD elicited complaint: abdominal pain (headaches, FTT, weakness, ) Pertinent past history: other (gastric sleeve, pain in R flank for months) Onset (ago): month(s) Pain Consistency: intermittent Location: R flank Severity: moderate Quality: aching and fullness Radiation: none Migration to: no migration Exacerbating factors: eating and movement Relieving factors: nothing Context: history of similar episodes Associated symptoms: nausea and other (weakness, feels she is brain fog) Related Data Home Medications Medication Instructions Recorded Confirmed lactulose 10 gram/15 mL oral 10 g PO DAILY 08/27/20 02/22/22 solution zolpidem 10 mg tablet 10 mg PO BEDTIME PRN Sleep 08/27/20 02/22/22 ascorbate calcium (vitamin C) 500 500 mg PO DAILY 09/08/21 02/22/22 mg tablet quetiapine 50 mg tablet 1 tab PO BID 09/22/21 02/22/22 venlafaxine 150 mg 1 cap PO DAILY 09/22/21 02/22/22 capsule,extended release 24 hr clonazepam 1 mg tablet 1 mg PO TID 10/26/21 02/22/22 quetiapine 400 mg tablet 400 mg PO BEDTIME 10/26/21 02/22/22 simethicone 80 mg chewable tablet 80 mg PO Q6H PRN GAS 10/26/21 02/22/22 ursodiol 300 mg capsule 300 mg PO BID 10/26/21 02/22/22 ziprasidone HCl 20 mg capsule 20 mg PO BID 10/26/21 02/22/22 acetaminophen 500 mg tablet 2 tab PO Q8H 02/11/22 02/22/22 cholecalciferol (vitamin D3) 50 1 tab PO DAILY 02/11/22 02/22/22 mcg (2,000 unit) tablet (Vitamin D3) famotidine 40 mg tablet 1 tab PO BEDTIME 02/11/22 02/22/22 hydroxyzine pamoate 50 mg capsule 1 cap PO BID PRN Anxiety 02/11/22 02/22/22 linaclotide 290 mcg capsule 1 cap PO DAILY 02/11/22 02/22/22 (Linzess) ondansetron 4 mg disintegrating 1 tab PO Q8H PRN nausea 02/11/22 02/22/22 tablet pantoprazole 40 mg tablet,delayed 40 mg PO DAILY@0630 02/11/22 02/22/22 release Previous Rx's Medication Instructions Recorded vitamin B complex (B 1 tab PO DAILY #30 tabs 07/13/21 Complex-Vitamin B12 tablet) blood pressure monitor (Blood #1 atif 10/31/21 Pressure Kit) blood-glucose meter (FreeStyle #1 atif 10/31/21 Lite Meter kit) lancets 28 gauge (FreeStyle #100 atif 10/31/21 Lancets) atorvastatin 20 mg tablet 20 mg PO DAILY #90 tabs 01/27/22 BATH CHAIR #1 atif 01/31/22 CANE #1 atif 01/31/22 LIFELINE ALERT SYSTEM #1 atif 01/31/22 WRIST BRACE #1 ea 01/31/22 ALCOHOL PADS #100 ea 02/21/22 sucralfate 1 gram tablet 1 g PO BID #180 tabs 02/21/22 cyclobenzaprine 10 mg tablet 10 mg PO TID #10 tabs 03/06/22 ENSURE once a day #90 ea 03/09/22 glucagon 1 mg solution for 1 mg IVPUSH ONCE PRN hypoglycemia 03/09/22 injection (GlucaGen HypoKit) below 55 #1 ea lidocaine 5 % topical patch 1 patch topical DAILY 30 days #30 03/09/22 (Lidoderm) ea diphenhydramine HCl 25 mg capsule 25 mg PO BEDTIME PRN sleep #90 caps 03/10/22 (Benadryl) cefuroxime axetil 500 mg tablet 500 mg PO BID 10 days #20 tabs 04/02/22 codeine 10 mg-guaifenesin 100 mg/5 10 ml PO Q6H PRN cough #237 mL 04/02/22 mL oral liquid tramadol 50 mg tablet 50 mg PO Q6H PRN pain 30 days #60 04/10/22 tabs acarbose 25 mg tablet 25 mg PO TID #90 tabs 04/13/22 dicyclomine 20 mg tablet 20 mg PO BID #60 tabs 04/24/22 oxycodone 5 mg tablet 5 mg PO Q6H PRN pain #14 tabs 04/25/22 terconazole 0.8 % vaginal cream 1 appful vaginal BEDTIME 04/25/22 Candidiasis vaginitis 3 days #20 grams blood sugar diagnostic (FreeStyle #100 ea 05/01/22 Lite Strips) tramadol 50 mg tablet 50 mg PO BID PRN pain #10 tabs 05/03/22 Allergies Allergy/AdvReac Type Severity Reaction Status Date / Time tomato [TOMATO] Allergy Mild HIVES Verified 04/13/22 10:10 DIFFICULTY BREATHING hydrocodone [HYDROCODONE] Allergy Unknown RASH, Verified 04/13/22 10:10 AIRWAY CLOSES ibuprofen [From MOTRIN] Allergy Unknown STOMACH Verified 04/13/22 10:10 UPSET, vomiting trazodone [TRAZODONE] Allergy Unknown UNKNOWN, Verified 04/13/22 10:10 stomach upset black pepper [BLACK PEPPER] AdvReac Severe DIFFICULTY Verified 04/13/22 10:10 BREATHING, hives Review of Systems Review of Systems Constitutional : pos Weight loss, No Fever, No Chills ENT/Mouth : No sore throat, No Rhinorrhea Eyes: No Swelling, No Redness Cardiovascular : No Chest Pain, No SOB, NoEdema Respiratory : No Cough, No Sputum, No Wheezing Gastrointestinal : Positive Nausea, no Vomiting, no Diarrhea, positive abdominal Pain, No Hematochezia, No Melena Genitourinary : No Dysuria, No Urinary Frequency, No Hematuria, No Urgency Musculoskeletal : No joint pain, No Myalgias, No Joint Swelling Skin : No Skin Lesions, No rash Neuro : pos Weakness, No Numbness, No Dizziness, No Headache Psych : pos Anxiety/Panic, pos Depression Heme/Lymph: No Bruising, No Lymphadenopathy Endocrine : No Polyuria, No Polydipsia All other systems reviewed and are negative. [facility] Past Medical History Attestation statement: The following information was validated with the patient. 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 Diverticulosis GERD (gastroesophageal reflux disease) History of bipolar disorder History of schizophrenia Hypercholesterolemia Hypertension Insomnia Numbness of left hand Renal calculi Spondylosis of lumbar spine Type 2 diabetes mellitus with hyperglycemia Vitamin D deficiency Surgical History H/O: hysterectomy History of tubal ligation Hx of bariatric surgery Family History Family History Father Medical history unknown Mother Medical history unknown Paternal Aunt Uterine cancer Diabetes Hypertension Paternal Uncle Liver cancer Heart attack Maternal Aunt Stroke Family/Other Chronic mental illness Sister Uterine cancer Schizophrenia Brother Substance abuse Other Mental health disorder Social History Social History Household Members: None Housing: Apartment Do you presently have visiting nurse or other home services: Yes Alcohol intake: never Patient Tobacco Use Status: Never used Tobacco e-Cigarette/Vaping Use: Never Used Second Hand Smoke Exposure: No Advance Directives: No Advance Directives Information Provided: No Patient : No service: No Current occupational status: disabled Current occupational exposures/hazards: No Cognitive needs: No Hearing needs: No Vision needs: No Physical Exam ED Vital Signs: Vital Signs - 24 hr 05/03/22 08:08 05/03/22 09:32 05/03/22 11:09 Temperature 98 F 98.1 F Pulse Rate 89 78 80 Respiratory Rate 19 14 16 Blood Pressure 106/73 99/69 111/69 Pulse Oximetry 98 100 Oxygen Delivery Method Room Air Room Air 05/03/22 12:02 Temperature 98.3 F Pulse Rate 82 Respiratory Rate 14 Blood Pressure 98/54 L Pulse Oximetry 100 Oxygen Delivery Method Room Air BMI result Body Mass Index 21.0 Appearance: Alert. Oriented X3. No acute distress. Anxious tearful at times Eyes: Pupils equal, round and reactive to light. ENT: Pharynx mildly dry MM Neck: Normal inspection. Neck supple. CVS: Normal heart rate and rhythm. Pulses normal. Respiratory: No respiratory distress. Breath sounds normal. Abdomen: Soft and mild R flank ttp Skin: Skin warm and dry. pale skin color. Normal skin turgor. Extremities: No lower extremity edema. No calf ttp Neuro: Oriented X 3. No motor deficit. No sensory deficit. Course Course Course Narrative: case management has cleared, labs at baseline, US no obstructing stone, no UTI, eating here - has good outpatient follow up maintaining her BS with food - chronic issue same at home no acute findings - at this time chronic issue has had CT scan with negative GB on 04/25, US normal, Labs stable, tolerating PO can be DC - has GI and PCP follow up, also seeing a specialist in [place] for these issues cleared by CARE team MDM - Abdominal Pain MDM Narrative Medical decision making narrative: 41 yo female with hx of renal colic, vaginitis, GERD, HTN, HLD, ETOH abuse, schizophrenia, hysterectomy s/p gastric sleeve with Dr. Driscoll in September now with malabsorption and hypoglycemic episodes here with c/o continued abdomina pain, feeling like food gets stuck, depression/anxiety. Wants a life alert bracelet at home for her hypoglycemic episodes that have resulted in fainting. At this time will obtain labs, UA, hydrate, involve CARE team for depression, CM for life alert. Her abdomen is not very tender and no distention she is tolerating PO - doubt obstruction - US ordered for renal colic. Lab Data Result diagrams: 05/03/22 10:53 05/03/22 11:52 Labs: Lab Results 05/03/22 05/03/22 05/03/22 Range/Units 10:52 10:53 11:15 WBC 6.7 (4.8-10.8) X10*3/uL RBC 3.64 L (4.20-5.50) X10*6/uL Hgb 10.5 L (12.0-16.0) g/dl Hct 32.5 L (37.0-47.0) % MCV 89.3 (80.0-98.0) fL MCH 28.8 (27.0-33.0) pg MCHC 32.3 (31.0-35.0) g/dl RDW 13.1 (11.0-16.0) % Plt Count 356 (160-400) X10*3/uL MPV 9.4 (9.4-12.3) fL Immature Gran % (Auto) 0.3 (0.0-0.4) % Neut % (Auto) 67.3 (45-73) % Lymph % (Auto) 22.0 (20-40) % [place] % (Auto) 7.3 (2-11) % Eos % (Auto) 2.2 (0-4) % Baso % (Auto) 0.9 (0-2) % Lymph # (Auto) 1.5 (1.2-4.9) X10*3/uL [place] # (Auto) 0.5 (0.1-1.2) X10*3/uL Eos # (Auto) 0.2 (0.0-0.4) X10*3/uL Baso # (Auto) 0.1 (0.0-0.2) X10*3/uL Abs Immat Gran (auto) 0.02 (0.00-0.03) X10*3/uL Absolute Neuts (auto) 4.5 (2.0-8.3) x10*3/uL Absolute Nucleated RBC 0.000 (0.0-0.012) X10*3/uL Nucleated RBC % (auto) 0.0 (0.0-0.2) /100WBC Sodium (135-145) mmol/L Potassium (3.3-5.1) mmol/L Chloride (96-108) mmol/L Carbon Dioxide (22-29) mmol/L Anion Gap (12-20) BUN (9-16) mg/dL Creatinine (0.5-1.4) mg/dL Estim Creat Clear Calc Estimated GFR POC Glucose 57 L* (60-115) mg/dL Random Glucose (60-115) mg/dL Calcium (8.4-10.2) mg/dL Magnesium (1.6-2.6) mg/dL Total Bilirubin (0.0-1.0) mg/dL Direct Bilirubin (0.0-0.5) mg/dL AST (5-31) U/L ALT (0-31) U/L Alkaline Phosphatase (39-117) U/L Total Protein (6.5-8.0) g/dL Albumin (3.5-5.0) g/dL Lipase (8-78) U/L Urine Color Yellow Urine Appearance Cloudy Urine pH 6.5 (5.0-9.0) Ur Specific [place] 1.025 (1.005-1.025) Urine Protein 30 (1+) H (Neg-Trace) mg/dL Urine Glucose (UA) Negative (Negative) mg/dL Urine Ketones Trace (Negative) mg/dL Urine Blood Negative (Negative) Urine Nitrite Negative (Negative) Ur Leukocyte Esterase Trace H (Negative) Urine RBC 3-5 H (0-2) /HPF Urine WBC 0-5 (0-5) /HPF Ur Squamous Epith Cells 11-20 (0-2) /HPF Urine Bacteria 4+ (None Seen) Hyaline Casts 0-2 (0-2) /LPF Urine Test (NEGATIVE) 05/03/22 05/03/22 05/03/22 Range/Units 11:15 11:16 11:52 WBC (4.8-10.8) X10*3/uL RBC (4.20-5.50) X10*6/uL Hgb (12.0-16.0) g/dl Hct (37.0-47.0) % MCV (80.0-98.0) fL MCH (27.0-33.0) pg MCHC (31.0-35.0) g/dl RDW (11.0-16.0) % Plt Count (160-400) X10*3/uL MPV (9.4-12.3) fL Immature Gran % (Auto) (0.0-0.4) % Neut % (Auto) (45-73) % Lymph % (Auto) (20-40) % [place] % (Auto) (2-11) % Eos % (Auto) (0-4) % Baso % (Auto) (0-2) % Lymph # (Auto) (1.2-4.9) X10*3/uL [place] # (Auto) (0.1-1.2) X10*3/uL Eos # (Auto) (0.0-0.4) X10*3/uL Baso # (Auto) (0.0-0.2) X10*3/uL Abs Immat Gran (auto) (0.00-0.03) X10*3/uL Absolute Neuts (auto) (2.0-8.3) x10*3/uL Absolute Nucleated RBC (0.0-0.012) X10*3/uL Nucleated RBC % (auto) (0.0-0.2) /100WBC Sodium 142 (135-145) mmol/L Potassium 3.7 (3.3-5.1) mmol/L Chloride 105 (96-108) mmol/L Carbon Dioxide 29 (22-29) mmol/L Anion Gap 12 (12-20) BUN 12 (9-16) mg/dL Creatinine 0.65 (0.5-1.4) mg/dL Estim Creat Clear Calc 90.0 Estimated GFR > 60 POC Glucose 70 (60-115) mg/dL Random Glucose 94 (60-115) mg/dL Calcium 9.1 (8.4-10.2) mg/dL Magnesium 1.9 (1.6-2.6) mg/dL Total Bilirubin 0.3 (0.0-1.0) mg/dL Direct Bilirubin < 0.2 (0.0-0.5) mg/dL AST 10 (5-31) U/L ALT 7 (0-31) U/L Alkaline Phosphatase 49 (39-117) U/L Total Protein 5.8 L (6.5-8.0) g/dL Albumin 3.9 (3.5-5.0) g/dL Lipase 19 (8-78) U/L Urine Color Urine Appearance Urine pH (5.0-9.0) Ur Specific [place] (1.005-1.025) Urine Protein (Neg-Trace) mg/dL Urine Glucose (UA) (Negative) mg/dL Urine Ketones (Negative) mg/dL Urine Blood (Negative) Urine Nitrite (Negative) Ur Leukocyte Esterase (Negative) Urine RBC (0-2) /HPF Urine WBC (0-5) /HPF Ur Squamous Epith Cells (0-2) /HPF Urine Bacteria (None Seen) Hyaline Casts (0-2) /LPF Urine Test NEGATIVE (NEGATIVE) 05/03/22 Range/Units 12:00 WBC (4.8-10.8) X10*3/uL RBC (4.20-5.50) X10*6/uL Hgb (12.0-16.0) g/dl Hct (37.0-47.0) % MCV (80.0-98.0) fL MCH (27.0-33.0) pg MCHC (31.0-35.0) g/dl RDW (11.0-16.0) % Plt Count (160-400) X10*3/uL MPV (9.4-12.3) fL Immature Gran % (Auto) (0.0-0.4) % Neut % (Auto) (45-73) % Lymph % (Auto) (20-40) % [place] % (Auto) (2-11) % Eos % (Auto) (0-4) % Baso % (Auto) (0-2) % Lymph # (Auto) (1.2-4.9) X10*3/uL [place] # (Auto) (0.1-1.2) X10*3/uL Eos # (Auto) (0.0-0.4) X10*3/uL Baso # (Auto) (0.0-0.2) X10*3/uL Abs Immat Gran (auto) (0.00-0.03) X10*3/uL Absolute Neuts (auto) (2.0-8.3) x10*3/uL Absolute Nucleated RBC (0.0-0.012) X10*3/uL Nucleated RBC % (auto) (0.0-0.2) /100WBC Sodium (135-145) mmol/L Potassium (3.3-5.1) mmol/L Chloride (96-108) mmol/L Carbon Dioxide (22-29) mmol/L Anion Gap (12-20) BUN (9-16) mg/dL Creatinine (0.5-1.4) mg/dL Estim Creat Clear Calc Estimated GFR POC Glucose 72 (60-115) mg/dL Random Glucose (60-115) mg/dL Calcium (8.4-10.2) mg/dL Magnesium (1.6-2.6) mg/dL Total Bilirubin (0.0-1.0) mg/dL Direct Bilirubin (0.0-0.5) mg/dL AST (5-31) U/L ALT (0-31) U/L Alkaline Phosphatase (39-117) U/L Total Protein (6.5-8.0) g/dL Albumin (3.5-5.0) g/dL Lipase (8-78) U/L Urine Color Urine Appearance Urine pH (5.0-9.0) Ur Specific [place] (1.005-1.025) Urine Protein (Neg-Trace) mg/dL Urine Glucose (UA) (Negative) mg/dL Urine Ketones (Negative) mg/dL Urine Blood (Negative) Urine Nitrite (Negative) Ur Leukocyte Esterase (Negative) Urine RBC (0-2) /HPF Urine WBC (0-5) /HPF Ur Squamous Epith Cells (0-2) /HPF Urine Bacteria (None Seen) Hyaline Casts (0-2) /LPF Urine Test (NEGATIVE) Discharge Plan Discharge Clinical Impression: Right flank pain Patient Disposition: Home, Self-Care Instructions: Flank Pain (ED) Additional Instructions: return to ED for any worsening symptoms or concerns please follow up with your specialists CT/CT angio chest PE protocol IMPRESSION: No filling defect to suggest a pulmonary embolism here. ? No significant infiltrate or effusion. Mild bilateral basilar atelectasis. ? Scattered areas of lung nodularity are described above. Recommendation is low-dose noncontrast CT in 6 months for continued evaluation ? VTE: negative Prescriptions: New tramadol 50 mg tablet 50 mg PO BID PRN (Reason: pain) Qty: 10 0RF No Action vitamin B complex [B Complex-Vitamin B12] Tablet 1 tab PO DAILY Qty: 30 6RF Rx Instructions: 1,000mcg dose daily (DME) blood pressure monitor [Blood Pressure Kit] Kit See Rx Instructions .Route Qty: 1 0RF Rx Instructions: As directed (DME) blood-glucose meter [FreeStyle Lite Meter] Kit See Rx Instructions .ROUTE .MEDSUPPLY Qty: 1 0RF Rx Instructions: As directed (DME) lancets [FreeStyle Lancets] 28 gauge misc See Rx Instructions .ROUTE .MEDSUPPLY Qty: 100 3RF Rx Instructions: As directed check BS QD atorvastatin 20 mg tablet 20 mg PO DAILY Qty: 90 3RF (DME) CANE See Rx Instructions .Route .MEDSUPPLY Qty: 1 0RF Rx Instructions: As directed (DME) WRIST BRACE See Rx Instructions .Route .MEDSUPPLY Qty: 1 0RF Rx Instructions: As directed ([facility]) BATH CHAIR See Rx Instructions .Route .MEDSUPPLY Qty: 1 0RF Rx Instructions: As directed ([facility] [place]) LIFELINE ALERT SYSTEM See Rx Instructions .Route .MEDSUPPLY Qty: 1 0RF Rx Instructions: As directed ([facility]) ALCOHOL PADS See Rx Instructions .Route .MEDSUPPLY Qty: 100 3RF Rx Instructions: As directed sucralfate 1 gram tablet 1 g PO BID Qty: 180 3RF lidocaine [Lidoderm] 5 % adhesive patch,medicated 1 patch topical DAILY 30 Days Qty: 30 3RF Rx Instructions: leave on most painful area for up to 12 hrs (DME) ENSURE once a day See Rx Instructions .Route .MEDSUPPLY Qty: 90 0RF Rx Instructions: As directed diphenhydramine HCl [Benadryl] 25 mg capsule 25 mg PO BEDTIME PRN (Reason: sleep) Qty: 90 2RF tramadol 50 mg tablet 50 mg PO Q6H PRN (Reason: pain) 30 Days Qty: 60 0RF dicyclomine 20 mg tablet 20 mg PO BID Qty: 60 0RF ([facility]) FreeStyle Lite Strips Strip See Rx Instructions .ROUTE .MEDSUPPLY Qty: 100 3RF Rx Instructions: As directed check QID venlafaxine 150 mg capsule,extended release 24hr 1 cap PO DAILY quetiapine 50 mg tablet 1 tab PO BID cyclobenzaprine 10 mg tablet 10 mg PO TID Qty: 10 0RF cefuroxime axetil 500 mg tablet 500 mg PO BID 10 Days Qty: 20 0RF codeine-guaifenesin 10-100 mg/5 mL liquid 10 ml PO Q6H PRN (Reason: cough) Qty: 237 0RF terconazole 0.8 % cream 1 appful vaginal BEDTIME 3 Days Qty: 20 0RF oxycodone 5 mg tablet 5 mg PO Q6H PRN (Reason: pain) Qty: 14 0RF Rx Instructions: Partial Fill upon patient request. famotidine 40 mg tablet 1 tab PO BEDTIME hydroxyzine pamoate 50 mg capsule 1 cap PO BID PRN (Reason: Anxiety) acetaminophen 500 mg tablet 2 tab PO Q8H ondansetron 4 mg tablet,disintegrating 1 tab PO Q8H PRN (Reason: nausea) cholecalciferol (vitamin D3) [Vitamin D3] 50 mcg (2,000 unit) tablet 1 tab PO DAILY Linzess 290 mcg capsule 1 cap PO DAILY pantoprazole 40 mg tablet,delayed release (DR/EC) 40 mg PO DAILY@0630 zolpidem 10 mg tablet 10 mg PO BEDTIME PRN (Reason: Sleep) lactulose 10 gram/15 mL solution 10 g PO DAILY ascorbate calcium (vitamin C) 500 mg tablet 500 mg PO DAILY ziprasidone HCl 20 mg capsule 20 mg PO BID quetiapine 400 mg tablet 400 mg PO BEDTIME ursodiol 300 mg capsule 300 mg PO BID simethicone 80 mg tablet,chewable 80 mg PO Q6H PRN (Reason: GAS) clonazepam 1 mg tablet 1 mg PO TID GlucaGen HypoKit 1 mg recon soln 1 mg IVPUSH ONCE PRN (Reason: hypoglycemia below 55) Qty: 1 0RF acarbose 25 mg tablet 25 mg PO TID Qty: 90 3RF Print Language: Tanzanian
[2022-05-03 09:32] VITALS: BP 99/69; PULSE 78; RESP 14; TEMP 36.7; O2SAT 100
--- OUTSIDE RECORDS SUMMARY | 2022-05-03 09:38 | XMS_ITS | Continuity of Care Document ---
:1980 Author Organization [facility] Address [address] [place] [id number]- Care Team Providers Name Role Phone Deirdre Cantrell MD Primary Care [id number] Date[facility]s): 08/11/21 - 12/09/21 [facility] [address] [place] [id number] Attending Physician: Luzmaria Gao Admitting Physician: Luzmaria Gao Referring Physician: Deirdre Cantrell MD Allergies, Adverse Reactions, Alerts Substance Reaction Severity Status Motrin Active Milk Products Active Tomatoes rash Active Egg Allergy Active traZODone Anaphylaxis Persistent Severe Active HYDROcodone Active Pepper (BLK) rash Active Medications acetaminophen 500 mg oral tablet TOME PETER O DOS TABLETAS POR VIA ORAL WOO VECES [facility] CUANDO SEA NECESARIO MAX 6 TABS IN 24 HOURS Start Date: 04/24/15 Status: OrderedAmbien Tablet By Mouth, Daily at bedtime, 0 Refills, Maintenance, 12/20/16 14:11:48 Start Date: 12/20/16 Status: Orderedatorvastatin 20 mg oral tablet 1 tablet = 20 mg, By Mouth, Daily, 0 Refills, Maintenance Start Date: 12/20/16 Status: OrderedclonazePAM 1 mg oral tablet TOME PETER TABLETA POR VIA ORAL TODOS [facility] Start Date: 04/24/15 Status: Ordereddicyclomine 10 mg oral capsule 1 capsule = 10 mg, By Mouth, 3 times a day, # 90 capsule, 2 Refills, Maintenance, 09/06/21 13:28:00 EST, [facility]/pharmacy #[id number], Partial fill upon patient request if the prescription is for a schedule II opioid drug., 157, cm, 09/06/21 12:56:00 EST, Olaf... Start Date: 09/06/21 Status: Ordereddocusate sodium 100 mg oral tablet 1 tablet = 100 mg, By Mouth, 2 times a day, 0 Refills, Maintenance, 12/20/16 14:11:03 Start Date: 12/20/16 Status: Orderedfamotidine 40 mg oral tablet 1 tablet = 40 mg, By Mouth, Daily at bedtime, # 90 tablet, 3 Refills, Maintenance, 07/28/21 14:55:00EST, Tablet, [id number], Partial fill upon patient request if the prescription is for a schedule II opioid drug., 157, cm, 07/13/21 14:05:00 E... Start Date: 07/28/21 Status: Orderedlactulose 10 gm/15 ml oral syrup 15 mL = 10 Gm, By Mouth, Daily, # 480 mL, 3 Refills, Acute 01/26/22 8:00:00 EDT, 12/09/21 15:31:00 EDT, Syrup, [id number], Partial fill upon patient request if the prescription is for a schedule II opioid drug., 15 mL By Mouth Daily, 157, cm,... Start Date: 12/09/21 Stop Date: 01/26/22 Status: Orderedlidocaine 5% topical ointment [facility] Start Date: 04/24/15 Status: OrderedLinzess 145 mcg oral capsule 1 capsule = 145 mcg, By Mouth, Daily, # 30 capsule, 0 Refills, Maintenance, 12/28/20 9:39:00 EDT, Capsule, Partial fill upon patient request if the prescription is for a schedule II opioid drug. Start Date: 12/28/20 Status: OrderedLinzess 290 mcg oral capsule 1 capsule = 290 mcg, By Mouth, Daily, # 30 capsule, 2 Refills, Maintenance, 09/06/21 13:27:00 EST, Capsule, [id number], Partial fill upon patient request if the prescription is for a schedule II opioid drug., 157, cm, 09/06/21 12:56:00 EST, He... Start Date: 09/06/21 Status: Orderedlisinopril 5 mg oral tablet TOME PETER [facility]A [facility] Start Date: 04/24/15 Status: Orderedmethocarbamol 500 mg oral tablet 2 tablet = 1,000 mg, By Mouth, 4 times a day, 0 Refills, Maintenance, 12/20/16 14:11:16 Start Date: 12/20/16 Status: OrderedMiraLax oral powder for reconstitution = 17 Gm, By Mouth, Daily, Titrate as needed, # 527 Gm, 1 Refills, Maintenance, 11/16/20 13:42:00 EDT, [facility]/pharmacy #[id number], Partial fill upon patient request if the prescription is for a schedule II opioid drug., 17 Gm By Mouth Daily,Instr:Titrate as ne... Start Date: 11/16/20 Status: Orderedomeprazole 40 mg oral enteric coated capsule 1 capsule = 40 mg, By Mouth, 2 times a day, # 120 capsule, 1 Refills, Maintenance, 12/28/20 11:10:00EDT, EC Capsule, [facility]/pharmacy #[id number], 157.4, cm, 12/28/20 9:40:00 EDT, Height, 86.5, kg, 12/28/20 9:40:00 EDT, Dry Weight Start Date: 12/28/20 Status: Orderedpantoprazole 40 mg oral delayed release tablet 1 tablet = 40 mg, By Mouth, 2 times a day, # 180 tablet, 3 Refills, Maintenance, 07/13/21 15:02:00 EST, EC Tablet, 157, cm, 07/13/21 14:05:00 EST, Height, 86.5, kg, 12/28/20 9:40:00 EDT, Dry Weight Start Date: 07/13/21 Status: OrderedVistaril Capsule Intramuscular, Every 4 hours, 0 Refills, Maintenance, 12/20/16 14:11:54 Start Date: 12/20/16 Status: OrderedVitamin B Comp/Vitamin C/Iron Tablet 1, tablet, By Mouth, Daily, Refills 0, Maintenance, 12/20/16 14:11:38 Start Date: 12/20/16 Status: OrderedVitamin D3 By Mouth, 0 Refills, Maintenance, 12/20/16 14:10:46 Start Date: 12/20/16 Status: Ordered Social History Social History Type Response Smoking Status Current some day smoker entered on: 12/20/16 Sex
--- OUTSIDE RECORDS SUMMARY | 2022-05-03 09:38 | XMS_ITS | Continuity of Care Document ---
:1980 Author Organization [facility] Address [address] [place] [address]- Care Team Providers Name Role Phone Po Deirdre DENNEY Primary Care Physician [place] [facility] [place](s): 01/16/21 - 02/15/21 [facility] [address] [place] [id number] Allergies, Adverse Reactions, Alerts Substance Reaction Severity Status Motrin Active Milk Products Active Egg Allergy Active traZODone Anaphylaxis Persistent Severe Active HYDROcodone Active Medications acetaminophen 500 mg oral tablet [...] TODOS LOS SINHA Start Date: 04/24/15 Status: Ordereddocusate sodium 100 mg oral tablet 1 tablet = 100 mg, By Mouth, 2 times a day, 0 Refills, Maintenance, 12/20/16 14:11:03 Start Date: 12/20/16 Status: Orderedlidocaine 5% topical ointment APLIQUE AL AREA AFECTADA [facility]OO [facility]ES AL KINGS Start Date: 04/24/15 Status: OrderedLinzess 145 mcg oral capsule 1 capsule = 145 mcg, By Mouth, Daily, # 30 capsule, 0 Refills, Maintenance, 12/28/20 9:39:00 EDT, Capsule, Partial fill upon patient request if the prescription is for a schedule II opioid drug. Start Date: 12/28/20 Status: Orderedlisinopril 5 mg oral tablet SHAZIA SINHA Start Date: 04/24/15 Status: Orderedmethocarbamol 500 mg oral tablet 2 tablet = 1,000 mg, By Mouth, 4 times a day, 0 Refills, Maintenance, 12/20/16 14:11:16 Start Date: 12/20/16 Status: OrderedMiraLax oral powder for reconstitution = 17 Gm, By Mouth, Daily, Titrate as needed, # 527 Gm, 1 Refills, Maintenance, 11/16/20 13:42:00 EDT, [facility]/pharmacy #[id number], Partial fill upon patient request if the prescription is for a schedule II opioid drug., 17 Gm By Mouth Daily,Instr:Titrate as ne... Start Date: 11/16/20 Status: Orderedomeprazole 40 mg oral enteric coated capsule 1 capsule = 40 mg, By Mouth, 2 times a day, # 120 capsule, 1 Refills, Maintenance, 12/28/20 11:10:00EDT, EC Capsule, [id number], 157.4, cm, 12/28/20 9:40:00 EDT, Height, 86.5, kg, 12/28/20 9:40:00 EDT, Dry Weight Start Date: 12/28/20 Status: OrderedVistaril Capsule Intramuscular, Every 4 hours, [...]
--- OUTSIDE RECORDS SUMMARY | 2022-05-03 09:38 | XMS_ITS | Continuity of Care Document ---
:1980 Author Organization [facility] Address Unavailable , Care Team Providers Name Role Phone Po Deirdre DENNEY Primary Care Physician Encounter [facility] [place] Date(s): 10/11/21 - 11/10/21 [facility] Attending Physician: Magaly Santiago Admitting Physician: AdmtrMagaly Referring Physician: AdmtrMagaly Allergies, Adverse Reactions, Alerts Substance Reaction Severity [...] capsule, 2 Refills, Maintenance, 09/06/21 13:28:00 EST, [facility]/pharmacy #[id number], Partial fill upon patient request if the prescription is for a schedule II opioid drug., 157, cm, 09/06/21 12:56:00 ESTOlaf... Start Date: 09/06/21 Status: Ordereddocusate sodium 100 [...] 07/13/21 14:05:00 E... Start Date: 07/28/21 Status: Orderedlidocaine 5% topical ointment APLIQUE AL AREA AFECTADA [facility] AL KINGS Start Date: 04/24/15 Status: OrderedLinzess [...] 09/06/21 Status: [facility]isinop[facility] mg [facility] tablet [facility] Start Date: 04/24/15 Status: Orderedmethocarbamol 500 mg oral tablet 2 tablet = 1,000 mg, By Mouth, 4 times a day, 0 Refills, Maintenance, 12/20/16 14:11:16 Start Date: 12/20/16 Status: OrderedMiraLax oral powder for reconstitution = 17 Gm, By Mouth, Daily, Titrate as needed, # 527 Gm, 1 Refills, Maintenance, 11/16/20 13:42:00 EDT, [id number], Partial fill upon patient request if the prescription is for a schedule II opioid drug., 17 Gm By Mouth Daily,Instr:Titrate as ne... Start Date: 11/16/20 Status: Orderedomeprazole 40 mg oral enteric coated capsule 1 capsule = 40 mg, By Mouth, 2 times a day, # 120 capsule, 1 Refills, Maintenance, 12/28/20 11:10:00EDT, EC Capsule, [facility]/pharmacy #[id number], 157.4, cm, 12/28/20 9:40:00 [...] 12/20/16 14:10:46 Start Date: 12/20/16 Status: Ordered Problem List Condition Effective Dates Status Health Status Informant Obese class I(Confirmed) Active Social History Social History Type Response Smoking Status Current some day smoker entered on: 12/20/16 Sex
--- OUTSIDE RECORDS SUMMARY | 2022-05-03 09:38 | XMS_ITS | Continuity of Care Document ---
:1980 Author Organization [facility] Address [address] [place] [address]- Care Team Providers Name Role Phone Deirdre Cantrell MD [id number] Date[facility] - 10/02/21 [facility] [address] [place] [phone]- Attending Physician: Ric Webb MD Admitting Physician: Ric Webb MD Referring Physician: Deirdre Cantrell MD Allergies, Adverse [...] capsule, 2 Refills, Maintenance, 09/06/21 13:28:00 EST, [facility]/pharmacy #[id number], Partial fill upon patient request if the [...] 5% topical ointment APLIQUE AL AREA AFECTADA [facility] AL KINGS Start Date: 04/24/15 Status: OrderedLinzess [...] 09/06/21 Status: Orderedlisinopril 5 mg oral tablet [facility] Start Date: 04/24/15 Status: Orderedmethocarbamol 500 mg [...] 1 Refills, Maintenance, 12/28/20 11:10:00EDT, EC Capsule, [facility]/pharmacy #[id number], 157.4, cm, 12/28/20 9:40:00 EDT, Height, [...]
--- OUTSIDE RECORDS SUMMARY | 2022-05-03 09:38 | XMS_ITS | Continuity of Care Document ---
:1980 Author Organization [facility] Address [address] [place] [address]- Care Team Providers Name Role Phone Po Deirdre DENNEY Primary Care Physician Encounter [facility] [place] Date(s): 09/23/21 - 10/23/21 [facility] [address] [place] [phone]- [place] Allergies, Adverse Reactions, Alerts Substance Reaction Severity [...] capsule, 2 Refills, Maintenance, 09/06/21 13:28:00 EST, [facility]/pharmacy #[id number], Partial fill upon patient request if the [...] 5% topical ointment APLIQUE AL AREA AFECTADA [facility] AL KINGS Start Date: 04/24/15 Status: [...] 09/06/21 Status: Orderedlisinopril 5 mg oral tablet SHAZIA MEDINA [facility] SINHA Start Date: 04/24/15 Status: Orderedmethocarbamol [...]
--- OUTSIDE RECORDS SUMMARY | 2022-05-03 09:38 | XMS_ITS | Continuity of Care Document ---
:1980 Author Organization [facility] Address [address] [place] [address]- Care Team Providers Name Role Phone Po Deirdre DENNEY Primary Care Physician En[place] [facility] [place] Date(s): 10/31/21 - 01/08/[address] [id number] Attending Physician: Kenisha Najera MD Admitting Physician: Dania DENNEY, Kenisha Allergies, Adverse Reactions, Alerts Substance Reaction Severity [...] capsule, 2 Refills, Maintenance, 09/06/21 13:28:00 EST, [facility]/pharmacy #[id number], Partial fill upon patient request if the [...] tablet, 3 Refills, Maintenance, 07/28/21 14:55:00EST, Tablet, [facility]/pharmacy #[id number], Partial fill upon patient request [...] Orderedlisinopril 5 mg oral tablet TOME PETER CAROL TOS LOS SINHA Start Date: 04/24/15 Status: Orderedmethocarbamol 500 mg oral tablet 2 tablet = 1,000 mg, By Mouth, 4 times a day, 0 Refills, Maintenance, 12/20/16 14:11:16 Start Date: 12/20/16 Status: OrderedMiraLax oral powder for reconstitution = 17 Gm, By Mouth, Daily, Titrate as needed, # 527 Gm, 1 Refills, Maintenance, 11/16/20 13:42:00 EDT, [facility]/pharmacy #[id number], Partial fill upon patient request if the prescription is for a schedule II opioid drug., 17 Gm By Mouth Daily,Instr:Titrate as ne... Start Date: 11/16/20 Status: Orderedomeprazole 40 mg oral enteric coated capsule 1 capsule = 40 mg, By Mouth, 2 times a day, # 120 capsule, 1 Refills, Maintenance, 12/28/20 11:10:00EDT, EC Capsule, [facility]/pharmacy #[id number], 157.4, cm, 12/28/20 9:40:00 EDT, Height, [...]
--- OUTSIDE RECORDS SUMMARY | 2022-05-03 09:38 | XMS_ITS | Continuity of Care Document ---
:1980 Author Organization [facility] Address [address] [place] [address]- Care Team Providers Name Role Phone Po Deirdre DENNEY Primary Care Physician [place] [facility] [place]s): 11/16/20 - 12/16/20 [facility] [address] [place] [id number] Allergies, Adverse Reactions, Alerts Substance Reaction Severity Status Motrin Active Milk Products Active Egg Allergy Active HYDROcodone Active TraMADol Hydrochloride Itching Active Medications acetaminophen 500 mg oral tablet [...] 0 Refills, Maintenance Start Date: 12/20/16 Status: Orderedbifidobacterium-lactobacillus By Mouth, Daily, 0 Refills, Maintenance, 09/27/18 9:43:03 EST Start Date: 09/27/18 Status: OrderedclonazePAM 1 mg oral tablet TOME PETER TABLETA [facility] TODOS LOS SINHA Start Date: 04/24/15 Status: Ordereddocusate sodium 100 mg oral tablet 1 tablet = 100 mg, By Mouth, 2 times a day, 0 Refills, Maintenance, 12/20/16 14:11:03 Start Date: 12/20/16 Status: OrderedGolytely - oral powder for reconstitution 240 mL, By Mouth, Every 10 minutes, # 4,000 mL, 0 Refills, Maintenance, 09/27/18 10:21:39 EST, REC Powder, 240 mL By Mouth Every 10 minutes Start Date: 09/27/18 Status: Orderedlidocaine 5% topical ointment APLIQUE AL AREA AFECTADA [facility] AL KINGS Start Date: 04/24/15 Status: Orderedlisinopril 5 mg oral tablet TOME PETER TABLETA TOCHARLES SINHA Start Date: 04/24/15 Status: Orderedmethocarbamol 500 mg oral tablet 2 tablet = 1,000 mg, By Mouth, 4 times a day, 0 Refills, Maintenance, 12/20/16 14:11:16 Start Date: 12/20/16 Status: OrderedMiraLax oral powder for reconstitution = 17 Gm, By Mouth, Daily, Titrate as needed, # 527 Gm, 1 Refills, Maintenance, 11/16/20 13:42:00 EDT, [facility]/pharmacy #[id number], Partial fill upon patient request if the prescription is for a schedule II opioid drug., 17 Gm By Mouth Daily,Instr:Titrate as ne... Start Date: 11/16/20 Status: Orderedomeprazole 40 mg oral enteric coated capsule 1 capsule = 40 mg, By Mouth, 2 times a day, # 120 capsule, 1 Refills, Maintenance, 11/27/18 15:37:36EDT, EC Capsule Start Date: 11/27/18 Status: OrderedVistaril Capsule Intramuscular, Every 4 hours, [...]
--- OUTSIDE RECORDS SUMMARY | 2022-05-03 09:38 | XMS_ITS | Continuity of Care Document ---
:1980 Author Organization [facility] Address Unavailable , Care Team Providers Name Role Phone Po Deirdre DENNEY Primary Care Physician Encounter [facility] [place] Date(s): 01/12/22 - 02/11/22 [facility] Attending Physician: Magaly Santiago Admitting Physician: AdmtrMagaly Referring Physician: AdmtrMagaly Allergies, Adverse Reactions, Alerts Substance Reaction Severity Status Motrin Active Milk Products Active Tomatoes rash Active traZODone Anaphylaxis Persistent Severe Active Pepper (BLK) rash Active Egg Allergy Active HYDROcodone Active Medications acetaminophen 500 mg [...] capsule, 2 Refills, Maintenance, 09/06/21 13:28:00 EST, [facility]/pharmacy #[id number], Partial fill upon patient request if the [...] tablet, 3 Refills, Maintenance, 07/28/21 14:55:00EST, Tablet, [facility]/pharmacy #[id number], Partial fill upon patient request if the prescription is for a schedule II opioid drug., 157, cm, 07/13/21 14:05:00 E... Start Date: 07/28/21 Status: Orderedhydrocortisone topical 25 mg suppository 1 supp = 25 mg, Rectally, 2 times a day, # 28 supp, 1 Refills, Maintenance, 01/13/22 11:17:00 EDT, Suppository, [facility]/pharmacy #[id number], Partial fill upon patient request if the prescription is for a schedule II opioid drug., 157.5, cm, 01/12/22 14:41:00 E... Start Date: 01/13/22 Stop Date: 02/10/22 Status: Orderedlidocaine 5% topical ointment APLIQUE AL [...] 2 Refills, Maintenance, 09/06/21 13:27:00 EST, Capsule, [facility]/pharmacy #[id number], Partial fill upon patient request if the prescription is for a schedule II opioid drug., 157, cm, 09/06/21 12:56:00 EST, He... Start Date: 09/06/21 Status: Orderedlisinopril 5 mg oral tablet TOME PETER TABLETA TODOS LOS SINHA Start Date: 04/24/15 Status: Orderedmenthol-zinc oxide 0.44%-20.6% topical ointment See Instructions, apply to anal area 3-4 times a day, # 113 Gm, 2 Refills, Maintenance, 02/02/22 16:37:00 EDT, [facility]/pharmacy #[id number], Partial fill upon patient request if the prescription is for a schedule II opioid drug., apply to anal area 3-4 times a... Start Date: 02/02/22 Status: Orderedmethocarbamol 500 mg oral tablet 2 tablet = 1,000 mg, By Mouth, 4 times a day, 0 Refills, Maintenance, 12/20/16 14:11:16 Start Date: 12/20/16 Status: OrderedMiraLax oral powder for reconstitution = 17 Gm, By Mouth, Daily, Titrate as needed, # 527 Gm, 1 Refills, Maintenance, 11/16/20 13:42:00 EDT, [facility]/pharmacy #[id number], Partial fill upon patient request if the prescription is for a schedule II opioid drug., 17 Gm By Mouth Daily,Instr:Titrate as ne... Start Date: 11/16/20 Status: Orderedomeprazole 40 mg oral enteric coated capsule 1 capsule = 40 mg, By Mouth, 2 times a day, # 120 capsule, 1 Refills, Maintenance, 12/28/20 11:10:00EDT, EC Capsule, [facility]/pharmacy #[id number], 157.4, cm, 12/28/20 9:40:00 EDT, Height, [...]
--- OUTSIDE RECORDS SUMMARY | 2022-05-03 09:38 | XMS_ITS | Continuity of Care Document ---
:1980 Author Organization [facility] Address [address] [place] [address]- Care Team Providers Name Role Phone Deirdre Cantrell MD [id number] - 10/21/[facility] [address] [place] [address] Attending Physician: Mark Pearson MD Admitting Physician: Mark Pearson MD Referring Physician: Deirdre Cantrell MD Allergies, Adverse Reactions, Alerts Substance Reaction Severity Status Motrin Active Milk Products Active Egg Allergy Active TraMADol Hydrochloride Itching Active HYDROcodone Active Medications acetaminophen 500 mg [...] TODOS LOS SINHA Start Date: 04/24/15 Status: Orderedmethocarbamol 500 mg oral tablet 2 tablet = 1,000 mg, By Mouth, 4 times a day, 0 Refills, Maintenance, 12/20/16 14:11:16 Start Date: 12/20/16 Status: Orderedomeprazole 40 mg oral enteric coated [...]
--- OUTSIDE RECORDS SUMMARY | 2022-05-03 09:39 | XMS_ITS | Continuity of Care Document ---
:1980 Author Organization [facility] Address [address] [place] [address]- Care Team Providers Name Role Phone Po Deirdre DENNEY Primary Care Physician Encounter [facility] [place] Date(s): 09/22/21 - 10/22/21 [facility] [address] [place] [id number]- [place] Allergies, Adverse Reactions, Alerts Substance Reaction [...] capsule, 2 Refills, Maintenance, 09/06/21 13:28:00 EST, [facility]/pharmacy #[id number], Partial fill upon patient request if the prescription is for a schedule II opioid drug., 157, cm, 09/06/21 12:56:00 ESTOlaf... Start Date: 09/06/21 Status: Ordereddocusate sodium 100 mg oral tablet 1 tablet = 100 mg, By Mouth, 2 times a day, 0 Refills, Maintenance, 12/20/16 14:11:03 Start Date: 5/24/17 Status: Orderedfamotidine 40 mg oral tablet 1 tablet = 40 mg, By Mouth, Daily at bedtime, # 90 tablet, 3 Refills, Maintenance, 07/28/21 14:55:00EST, Tablet, [id number], Partial fill upon patient request if the prescription is for a schedule II opioid drug., 157, cm, 07/13/21 14:05:00 E... Start Date: 07/28/21 Status: Orderedlidocaine 5% topical ointment APLIQUE AL AREA AFECTADA [facility] AL KINGS Start Date: 04/24/15 Status: OrderedLinzess [...] 2 Refills, Maintenance, 09/06/21 13:27:00 EST, Capsule, [facility]/pharmacy #[id number], Partial fill upon patient request if the prescription is for a schedule II opioid drug., 157, cm, 09/06/21 12:56:00 EST, He... Start Date: 09/06/21 Status: Orderedlisinopril 5 mg oral tablet SHAZIA HODGESKatelyn [facility] SINHA Start Date: 04/24/15 Status: Orderedmethocarbamol [...] 1 Refills, Maintenance, 12/28/20 11:10:00EDT, EC Capsule, [facility]/pharmacy #[id number], 157.4, cm, 12/28/20 9:40:00 EDT, Height, [...]
--- OUTSIDE RECORDS SUMMARY | 2022-05-03 09:39 | XMS_ITS | Continuity of Care Document ---
:1980 Author Organization [facility] Address [address] [place] [address]- Care Team Providers Name Role Phone Po Deirdre DENNEY Primary Care Physician [place] [facility] [place](s): 01/26/21 - 02/25/21 [facility] [address] [place] [id number] Allergies, Adverse Reactions, Alerts Substance Reaction [...] 1 Refills, Maintenance, 11/16/20 13:42:00 EDT, [facility]/pharmacy #[id number], Partial fill upon patient request if the prescription is for a schedule II opioid drug., 17 Gm By Mouth Daily,Instr:Titrate as ne... Start Date: 11/16/20 Status: Orderedomeprazole 40 mg oral enteric coated capsule 1 capsule = 40 mg, By Mouth, 2 times a day, # 120 capsule, 1 Refills, Maintenance, 12/28/20 11:10:00EDT, EC Capsule, [facility]/pharmacy #[id number], 157.4, cm, 12/28/20 9:40:00 [...]
--- OUTSIDE RECORDS SUMMARY | 2022-05-03 09:39 | XMS_ITS | Continuity of Care Document ---
:1980 Author Organization [facility] Address Unavailable , Care Team Providers Name Role Phone Po Deirdre DENNEY Primary Care Physician Encounter [facility] [place] Date(s): 09/08/21 - 11/10/21 [facility] Attending Physician: Misty MATHIS, Milagro Schreiber Referring Physician: Luzmaria Gao Allergies, Adverse Reactions, Alerts Substance Reaction Severity [...] capsule, 2 Refills, Maintenance, 09/06/21 13:28:00 EST, [facility]/pharmacy #[id number], Partial fill upon patient request if the [...] Orderedlidocaine 5% topical ointment [facility]QUE [facility] Start Date: 04/24/15 Status: [...] Status: Orderedlisinopril 5 mg oral tablet [facility] S[facility] Start Date: 04/24/15 Status: Orderedmethocarbamol 500 [...] 1 Refills, Maintenance, 12/28/20 11:10:00EDT, EC Capsule, [facility]/pharmacy #[id number], 157.4, cm, 12/28/20 9:40:00 EDT, [...]
--- OUTSIDE RECORDS SUMMARY | 2022-05-03 09:39 | XMS_ITS | Continuity of Care Document ---
:1980 Author Organization [facility] Address [address] [place] [address]- Care Team Providers Name Role Phone Po Deirdre DENNEY Primary Care Physician Encounter [facility] [place] Date(s): 12/09/21 - 01/08/22 [facility] [address] [place] [address]- Allergies, Adverse Reactions, Alerts Substance Reaction Severity [...] capsule, 2 Refills, Maintenance, 09/06/21 13:28:00 EST, [facility]/pharmacy #[id number], Partial fill upon patient request if the [...] tablet, 3 Refills, Maintenance, 07/28/21 14:55:00EST, Tablet, [facility]/pharmacy #[id number], Partial fill upon patient request if the prescription is for a schedule II opioid drug., 157, cm, 07/13/21 14:05:00 E... Start Date: 07/28/21 Status: Orderedlactulose 10 gm/15 ml oral syrup 15 mL = 10 Gm, By Mouth, Daily, # 480 mL, 3 Refills, Acute 01/26/22 8:00:00 EDT, 12/09/21 15:31:00 EDT, Syrup, [facility]/pharmacy #[id number], Partial fill upon patient request if the prescription is for a schedule II opioid drug., 15 mL By Mouth Daily, 157, cm,... Start Date: 12/09/21 Stop Date: 01/26/22 Status: Orderedlidocaine 5% topical ointment APLIQUE AL AREA AFECTADA [facility] AL KINGS Start Date: 04/24/15 [...] 2 Refills, Maintenance, 09/06/21 13:27:00 EST, Capsule, [facility]/pharmacy #[id number], Partial fill upon patient request if the prescription is for a schedule II opioid drug., 157, cm, 09/06/21 12:56:00 EST, He... Start Date: 09/06/21 Status: Orderedlisinopril 5 mg oral tablet TOME PETER HARDIKA TOKatelyn [facility] SINHA Start Date: 04/24/15 Status: Orderedmethocarbamol 500 mg oral tablet 2 tablet = 1,000 mg, By Mouth, 4 times a day, 0 Refills, Maintenance, 12/20/16 14:11:16 Start Date: 12/20/16 Status: OrderedMiraLax oral powder for reconstitution = 17 Gm, By Mouth, Daily, Titrate as needed, # 527 Gm, 1 Refills, Maintenance, 11/16/20 13:42:00 EDT, [facility]/pharmacy #[id number], Partial fill upon patient request if the prescription is for a schedule II opioid drug., 17 Gm By Mouth Daily,Instr:Titrate as ne... Start Date: 11/16/20 Status: Orderedomeprazole 40 mg oral enteric coated capsule 1 capsule = 40 mg, By Mouth, 2 times a day, # 120 capsule, 1 Refills, Maintenance, 12/28/20 11:10:00EDT, EC Capsule, [facility]/pharmacy #[id number], 157.4, cm, 12/28/20 9:40:00 [...]
--- OUTSIDE RECORDS SUMMARY | 2022-05-03 09:39 | XMS_ITS | Continuity of Care Document ---
:1980 Author Organization [facility] Address [address] [place] [phone]- Care Team Providers Name Role Phone Po Deirdre DENNEY Primary Care Phys[place] [facility] [place] 03/17/[address] [address] Attending Physician: Milagro Jay NP Admitting Physician: Milagro Jay NP Referring Physician: Milagro Jay NP Allergies, Adverse Reactions, Alerts Substance Reaction Severity [...] capsule, 2 Refills, Maintenance, 09/06/21 13:28:00 EST, [facility]/pharmacy #[id number], Partial fill upon patient request if the prescription is for a schedule II opioid drug., 157, cm, 09/06/21 12:56:00 EST, Heigh... Start Date: 09/06/21 Status: Ordereddocusate sodium 100 mg oral tablet 1 tablet = 100 mg, By Mouth, 2 times a day, 0 Refills, Maintenance, 12/20/16 14:11:03 Start Date: 12/20/16 Status: Orderedfamotidine 40 mg oral tablet 1 tablet = 40 mg, By Mouth, Daily at bedtime, # 90 tablet, 3 Refills, Maintenance, 07/28/21 14:55:00EST, Tablet, [facility]/pharmacy #[id number], Partial fill upon patient request if the prescription is for a schedule II opioid drug., 157, cm, 07/13/21 14:05:00 E... Start Date: 07/28/21 Status: Orderedhydrocortisone topical 25 mg suppository 1 supp = 25 mg, Rectally, 2 times a day, # 28 supp, 1 Refills, Maintenance, 01/13/22 11:17:00 EDT, Suppository, [facility]/pharmacy #[id number], Partial fill upon patient request if the prescription is for a schedule II opioid drug., 157.5, cm, 01/12/22 14:41:00 E... Start Date: 01/13/22 Stop Date: 02/10/22 Status: Orderedlidocaine 5% topical ointment APLIQUE AL AREA AFECTADA [facility] AL KINGS Start Date: 04/24/15 Status: [...] 2 Refills, Maintenance, 09/06/21 13:27:00 EST, Capsule, [facility]/pharmacy #[id number], Partial fill upon patient request if the prescription is for a schedule II opioid drug., 157, cm, 09/06/21 12:56:00 EST, He... Start Date: 09/06/21 Status: Orderedlisinopril 5 mg oral tablet SHAZIA HODGESKatelyn [facility] SINHA Start Date: 04/24/15 Status: Orderedmenthol-zinc oxide 0.44%-20.6% topical ointment See Instructions, apply to anal area 3-4 times a day, # 113 Gm, 2 Refills, Maintenance, 02/02/22 16:37:00 EDT, [facility]/pharmacy #[id number], Partial fill upon patient request [...] Gm, 1 Refills, Maintenance, 11/16/20 13:42:00 EDT, [facility]/pharmacy #[id number], Partial fill upon patient request if the prescription is for a schedule II opioid drug., 17 Gm By Mouth Daily,Instr:Titrate as ne... Start Date: 11/16/20 Status: Orderedomeprazole 40 mg oral enteric coated capsule 1 capsule = 40 mg, By Mouth, 2 times a day, # 120 capsule, 1 Refills, Maintenance, 12/28/20 11:10:00EDT, EC Capsule, [facility]/pharmacy #[id number], 157.4, cm, 12/28/20 9:40:00 EDT, [...]
--- OUTSIDE RECORDS SUMMARY | 2022-05-03 09:39 | XMS_ITS | Continuity of Care Document ---
:1980 Author Organization [facility] Address [address] [place] [address] Drive [address] [place] [address]- Care Team Providers Name Role Phone Deirdre Cantrell MD Primary Care Physician Encounter [facility] [place] Date(s): 04/12/22 - 04/19/[address] [place] [phone]- Encounter Diagnosis Constipation (Discharge Diagnosis) - 04/12/22 Attending Physician: Jalen MATHIS, Marley Ureña Referring Physician: Deirdre Cantrell MD Allergies, Adverse Reactions, Alerts Substance Reaction Severity Status Motrin Active Milk Products Active Pepper (BLK) rash Active Tomatoes rash Active Egg Allergy Active [...] capsule, 2 Refills, Maintenance, 09/06/21 13:28:00 EST, [facility]/pharmacy #[id number], Partial fill upon patient request if the prescription is for a schedule II opioid drug., 157, cm, 09/06/21 12:56:00 EST, Heigh... Start Date: 09/06/21 Status: Ordereddocusate sodium 100 mg oral tablet 1 tablet = 100 mg, By Mouth, 2 times a day, 0 Refills, Maintenance, 12/20/16 14:11:03 Start Date: 12/20/16 Status: Orderedestradiol 0.1 mg/g vaginal cream = 1 Gm, Vaginally, Daily at bedtime, take every night for two weeks then twice weekly, # 42.5 each, 11 Refills, Maintenance, 04/19/22 14:29:00 EDT, [facility]/pharmacy #[id number], Partial fill upon patient requestif the prescription is for a schedule II opioid d... Start Date: 04/19/22 Status: Orderedfamotidine 40 mg oral tablet 1 tablet = 40 mg, By Mouth, Daily at bedtime, # 90 tablet, 3 Refills, Maintenance, 07/28/21 14:55:00EST, Tablet, [facility]/pharmacy #[id number], Partial fill upon patient request if the prescription is for a schedule II opioid drug., 157, cm, 07/13/21 14:05:00 E... Start Date: 07/28/21 Status: Orderedlidocaine 5% topical ointment APLIQUE AL AREA [facility]ECTADA [facility] KINGS Start Date: 04/24/15 Status: OrderedLinzess 290 mcg oral capsule 1 capsule = 290 mcg, By Mouth, Daily, # 30 capsule, 2 Refills, Maintenance, 09/06/21 13:27:00 EST, Capsule, [facility]/pharmacy #[id number], Partial fill upon patient request if the prescription is for a schedule II opioid drug., 157, cm, 09/06/21 12:56:00 EST, He... Start Date: 09/06/21 Status: Orderedmenthol-zinc oxide 0.44%-20.6% topical ointment See Instructions, apply to anal area 3-4 times a day, # 113 Gm, 2 Refills, Maintenance, 02/02/22 16:37:00 EDT, [facility]/pharmacy #[id number], Partial fill upon patient request if the prescription is for a schedule II opioid drug., apply to anal area 3-4 times a... Start Date: 02/02/22 Status: Orderedmethocarbamol 500 mg oral tablet 2 tablet = 1,000 mg, By Mouth, 4 times a day, 0 Refills, Maintenance, 12/20/16 14:11:16 Start Date: 12/20/16 Status: Orderedmirabegron 50 mg oral tablet, extended release 1 tablet = 50 mg, By Mouth, Daily, # 30 tablet, 11 Refills, Maintenance, 04/19/22 14:54:00 EDT, [facility]/pharmacy #[id number], Partial fill upon patient request if the prescription is for a schedule II opioid drug., 158, cm, 04/19/22 14:23:00 EDT, Height, 53.6,... Start Date: 04/19/22 Status: Orderedpantoprazole 40 mg oral delayed release [...] 14:11:38 Start Date: 12/20/16 Status: OrderedVitamin D3 1 tablet, By Mouth, 2 times a day, calcium with vit d, 0 Refills, Maintenance, 12/20/16 14:10:46 EDT Start Date: 12/20/16 Status: Ordered Problem List Condition Effective Dates Status Health Status Informant Arthritis(Confirmed) Active Constipation(Confirmed) Active Diabetes mellitus(Confirmed) Active Diverticulitis(Confirmed) Active GERD - Gastro-esophageal reflux Active disease(Confirmed) HTN - Hypertension(Confirmed) Active Diagnosis Diagnosis Type Effective Dates Health Status Clinical In formant Service Constipation Discharge 04/12/22 Diagnosis Vital Signs Most recent to oldest [Reference Range]: 1 Height 158 cm (04/12/22 3:54 PM) Weight 60 kg (04/12/22 3:54 PM) Pulse Rate [55-90 bpm] 69 bpm (04/12/22 3:54 PM) Body Mass Index [18.5-24.99] 24.03 (04/12/22 3:54 PM) Blood Pressure [90-138/55-84 mm Hg] 97/63 mm Hg (04/12/22 3:54 PM) Respiratory Rate [16-30 br/min] 16 br/min (04/12/22 3:54 PM) Temperature [96.8-100.4 DegF] 97 DegF (04/12/22 3:54 PM) Social History Social History Type Response Smoking Status Former smoker, quit more iqra n 30 days ago entered on: 04/19/22 Sex Care Team PersonnelName: Deirdre Cantrell MD Address: [address] [place] [id number]
--- OUTSIDE RECORDS SUMMARY | 2022-05-03 09:39 | XMS_ITS | Continuity of Care Document ---
:1980 Author Organization [facility] Address [address] [place] [address]- Care Team Providers Name Role Phone Po Deirdre DENNEY Primary Care Physician En[place] [facility] [place] Date(s): 09/15/21 - 10/15/21 [facility] [address] [place] [address]- [place] Allergies, Adverse Reactions, Alerts Substance Reaction [...] 2 Refills, Maintenance, 09/06/21 13:28:00 EST, [facility]/pharmacy #[id number], Partial fill upon patient request if the [...] 5% topical ointment APLIQUE AL AREA AFECTADA [facility] AL KINGS Start Date: 04/24/15 [...] Orderedlisinopril 5 mg oral tablet SHAZIA MEDINA [facility] SINHA Start Date: 04/24/15 Status: Orderedmethocarbamol [...]
--- OUTSIDE RECORDS SUMMARY | 2022-05-03 09:39 | XMS_ITS | Continuity of Care Document ---
:1980 Author Organization [facility] Address [address] [place] [address]- Care Team Providers Name Role Phone Po Deirdre DENNEY [id number] - 12[facility]12/[address] [address] Discharge Disposition: A-D/C Home Attending Physician: Hernandez DENNEY, Missael Admitting Physician: Hernandez DENNEY, Missael Referring Physician: Missale Ng MD Allergies, Adverse Reactions, Alerts Substance Reaction [...] capsule, 2 Refills, Maintenance, 09/06/21 13:28:00 EST, [facility]/pharmacy #[id number], Partial fill upon patient request if the [...] tablet, 3 Refills, Maintenance, 07/28/21 14:55:00EST, Tablet, [facility]/pharmacy #[id number], Partial fill upon patient request if the prescription is for a schedule II opioid drug., 157, cm, 07/13/21 14:05:00 E... Start Date: 07/28/21 Status: Orderedlactulose 10 gm/15 ml oral syrup 15 mL = 10 Gm, By Mouth, Daily, # 480 mL, 3 Refills, Acute 01/26/22 8:00:00 EDT, 12/09/21 15:31:00 EDT, Syrup, [facility]/pharmacy #[id number], Partial fill upon patient request if [...] Orderedlisinopril 5 mg oral tablet TOME PETER LIRA SINHA Start Date: 04/24/15 Status: Orderedmethocarbamol 500 mg oral tablet 2 tablet = 1,000 mg, By Mouth, 4 times a day, 0 Refills, Maintenance, 12/20/16 14:11:16 Start Date: 12/20/16 Status: OrderedMiraLax oral powder for reconstitution = 17 Gm, By Mouth, Daily, Titrate as needed, # 527 Gm, 1 Refills, Maintenance, 11/16/20 13:42:00 EDT, [facility]/pharmacy #[id number], Partial fill upon patient request if the prescription is for a schedule II opioid drug., 17 Gm By Mouth Daily,Instr:Titrate as ne... Start Date: 11/16/20 Status: Orderedomeprazole 40 mg oral enteric coated capsule 1 capsule = 40 mg, By Mouth, 2 times a day, # 120 capsule, 1 Refills, Maintenance, 12/28/20 11:10:00EDT, EC Capsule, [facility]/pharmacy #[id number], 157.4, cm, 12/28/20 9:40:00 EDT, Height, [...] 12/20/16 14:10:46 Start Date: 12/20/16 Status: Ordered Vital Signs Most recent to oldest 1 2 3 [Reference Range]: Height 157.5 cm (12/12/21 10:40 AM) Weight 67.6 kg (12/12/21 10:40 AM) Oxygen Saturation [94-100 %] 99 % 100 % 100 % (12/12/21 12:13 PM) (12/12/21 12:03 PM) (12/12/21 1 0:40 AM) Pulse Rate [55-90 bpm] 63 bpm (12/12/21 10:40 AM) Body Mass Index [18.5-24.99] 27.25 *H* (12/12/21 10:40 AM) Blood Pressure [90-138/55-84 124/84 mm Hg 120/81 mm Hg 126 /75 mm Hg mm Hg] (12/12/21 12:13 PM) (12/12/21 12:03 PM) (12/12/21 1 0:40 AM) Respiratory Rate [16-30 18 br/min 16 br/min 18 br/mi n br/min] (12/12/21 12:13 PM) (12/12/21 12:03 PM) (12/12/21 1 0:40 AM) Temperature [96.8-100.4 97.3 DegF DegF] (12/12/21 10:40 AM) Mode of Delivery (Oxygen) Room air Room air Room a ir (12/12/21 12:13 PM) (12/12/21 12:03 PM) (12/12/21 1 0:40 AM) Blood pressure sites Arm, left Arm, left Arm, left (12/12/21 12:13 PM) (12/12/21 12:03 PM) (12/12/21 1 0:40 AM) Temperature Route Temporal (12/12/21 10:40 AM) Social History Social History Type Response Smoking Status Current some day smoker entered on: 12/20/16 Sex
--- OUTSIDE RECORDS SUMMARY | 2022-05-03 09:39 | XMS_ITS | Continuity of Care Document ---
:1980 Author Organization [facility] Address [address] [place] [phone]- Care Team Providers Name Role Phone Deirdre Cantrell MD Primary Care Physician Encounter [facility] [place] Date(s): 11/18/20 - 02/24/21 [facility] [address] [place] [id number] Attending Physician: Mark Pearson [...] 12/28/20 Status: Orderedlisinopril 5 mg oral tablet ISMAELE PETER SINHA Start Date: 04/24/15 Status: Orderedmethocarbamol 500 mg oral tablet 2 tablet = 1,000 mg, By Mouth, 4 times a day, 0 Refills, Maintenance, 12/20/16 14:11:16 Start Date: 12/20/16 Status: OrderedMiraLax oral powder for reconstitution = 17 Gm, By Mouth, Daily, Titrate as needed, # 527 Gm, 1 Refills, Maintenance, 11/16/20 13:42:00 EDT, [facility]/pharmacy #[id number], Partial fill upon patient request if the prescription is for a schedule II opioid drug., 17 Gm By Mouth Daily,Instr:Titrate as ne... Start Date: 11/16/20 Status: Orderedomeprazole 40 mg oral enteric coated capsule 1 capsule = 40 mg, By Mouth, 2 times a day, # 120 capsule, 1 Refills, Maintenance, 12/28/20 11:10:00EDT, EC Capsule, [facility]/pharmacy #[id number], 157.4, cm, 12/28/20 9:40:00 EDT, [...]
--- OUTSIDE RECORDS SUMMARY | 2022-05-03 09:39 | XMS_ITS | Continuity of Care Document ---
:1980 Author Organization [facility] Address [address] [place] [address]- Care Team Providers Name Role Phone Po Deirdre DENNEY Primary Care Physician [place] [facility] [place]/10[place] - 06/09/21 [facility] [address] [place] [address]- Attending Physician: Magaly Santiago Admitting Physician: Magaly Santiago Referring Physician: Magaly Santiago Allergies, Adverse Reactions, Alerts Substance Reaction Severity [...] Status: Orderedlisinopril 5 mg oral tablet SHAZIA KUS Start Date: 04/24/15 Status: Orderedmethocarbamol 500 mg oral tablet 2 tablet = 1,000 mg, By Mouth, 4 times a day, 0 Refills, Maintenance, 12/20/16 14:11:16 Start Date: 12/20/16 Status: OrderedMiraLax oral powder for reconstitution = 17 Gm, By Mouth, Daily, Titrate as needed, # 527 Gm, 1 Refills, Maintenance, 11/16/20 13:42:00 EDT, [facility]/pharmacy #[id number], Partial fill upon patient request if the prescription is for a schedule II opioid drug., 17 Gm By Mouth Daily,Instr:Titrate as ne... Start Date: 11/16/20 Status: Orderedomeprazole 40 mg oral enteric coated capsule 1 capsule = 40 mg, By Mouth, 2 times a day, # 120 capsule, 1 Refills, Maintenance, 12/28/20 11:10:00EDT, EC Capsule, [facility]/pharmacy #[id number], 157.4, cm, 12/28/20 9:40:00 [...]
--- OUTSIDE RECORDS SUMMARY | 2022-05-03 09:39 | XMS_ITS | Continuity of Care Document ---
:1980 Author Organization [facility] Address [address] [place] [address]- Care Team Providers Name Role Phone Po Deirdre DENNEY Primary Care Physician Encounter [facility] [place] Date(s): 12/14/21 - 01/13/22 [facility] [address] [place] [phone]- Allergies, Adverse Reactions, Alerts Substance Reaction Severity [...] Refills, Maintenance, 09/06/21 13:28:00 EST, [facility]/pharmacy #[id number], Partial fill upon patient request if the [...] 3 Refills, Maintenance, 07/28/21 14:55:00EST, Tablet, [facility]/pharmacy #[id number], Partial fill upon patient request if the prescription is for a schedule II opioid drug., 157, cm, 07/13/21 14:05:00 E... Start Date: 07/28/21 Status: Orderedhydrocortisone topical 25 mg suppository 1 supp = 25 mg, Rectally, 2 times a day, # 28 supp, 1 Refills, Maintenance, 01/13/22 11:17:00 EDT, Suppository, [facility]/pharmacy #[id number], Partial fill upon patient request if the prescription is for a schedule II opioid drug., 157.5, cm, 01/12/22 14:41:00 E... Start Date: 01/13/22 Stop Date: 02/10/22 Status: Orderedlactulose 10 gm/15 ml oral syrup [...] Orderedlidocaine 5% topical ointment [facility] Start Date: 04/24/15 [...] 1 Refills, Maintenance, 11/16/20 13:42:00 EDT, [facility]/pharmacy #[id number], Partial fill upon patient request if the prescription is for a schedule II opioid drug., 17 Gm By Mouth Daily,Instr:Titrate as ne... Start Date: 11/16/20 Status: Orderedomeprazole 40 mg oral enteric coated capsule 1 capsule = 40 mg, By Mouth, 2 times a day, # 120 capsule, 1 Refills, Maintenance, 12/28/20 11:10:00EDT, EC Capsule, [facility]/pharmacy #[id number], 157.4, cm, 12/28/20 9:40:00 [...]
--- OUTSIDE RECORDS SUMMARY | 2022-05-03 09:39 | XMS_ITS | Continuity of Care Document ---
:1980 Author Organization [facility] Address [address] [place] [address]- Care Team Providers Name Role Phone Po Deirdre DENNEY Primary Care Physician En[place] [facility] [place](s): 09/21/21 - 10/21/21 [facility] [address] [place] [address]- [place] Allergies, Adverse Reactions, Alerts Substance Reaction [...] 2 Refills, Maintenance, 09/06/21 13:28:00 EST, [facility]/pharmacy #[id number], Partial fill upon patient request if the [...] 5% topical ointment APLIQUE AL AREA AFECTADA [facility] AL KINGS Start Date: 04/24/15 Status: [...] 2 Refills, Maintenance, 09/06/21 13:27:00 EST, Capsule, [facility]/pharmacy #[id number], Partial fill upon patient request if the prescription is for a schedule II opioid drug., 157, cm, 09/06/21 12:56:00 EST, He... Start Date: 09/06/21 Status: Orderedlisinopril 5 mg oral tablet SHAZIA HODGESKatelyn [facility] SINHA Start Date: 04/24/15 Status: Orderedmethocarbamol [...] Refills, Maintenance, 12/28/20 11:10:00EDT, EC Capsule, [facility]/pharmacy #[id number], 157.4, cm, 12/28/20 9:40:00 [...]
--- OUTSIDE RECORDS SUMMARY | 2022-05-03 09:39 | XMS_ITS | Continuity of Care Document ---
:1980 Author Organization [facility] Address [address] [place] [phone]- Care Team Providers Name Role Phone Po Deirdre DENNEY Primary Care Physician [place] [facility] [place] - 10/26/21 [facility] [address] [place] [address]- [place] Allergies, Adverse Reactions, Alerts Substance Reaction [...] Refills, Maintenance, 09/06/21 13:28:00 EST, [facility]/pharmacy #[id number], Partial fill upon patient request if the [...] 5% topical ointment APLIQUE AL AREA AFECTADA [facility] AL KINGS Start Date: 04/24/15 Status: [...] Maintenance, 09/06/21 13:27:00 EST, Capsule, [facility]/pharmacy #[id number], Partial fill upon patient request if the prescription is for a schedule II opioid drug., 157, cm, 09/06/21 12:56:00 EST, He... Start Date: 09/06/21 Status: Orderedlisinopril 5 mg oral tablet SHAZIA HODGESKatelyn [facility] SINHA Start Date: 04/24/15 Status: Orderedmethocarbamol [...] Maintenance, 12/28/20 11:10:00EDT, EC Capsule, [facility]/pharmacy #[id number], 157.4, cm, 12/28/20 9:40:00 EDT, [...]
--- OUTSIDE RECORDS SUMMARY | 2022-05-03 09:39 | XMS_ITS | Continuity of Care Document ---
:1980 Author Organization [facility] Address Unavailable , Care Team Providers Name Role Phone Po Deirdre DENNEY Primary Care Physician En[place] [facility] [place](s): 02/02/22 - 03/04/22 [facility] Allergies, Adverse Reactions, Alerts Substance Reaction Severity [...] capsule, 2 Refills, Maintenance, 09/06/21 13:28:00 EST, [facility]/pharmacy #[id number], Partial fill upon patient request if the [...] tablet, 3 Refills, Maintenance, 07/28/21 14:55:00EST, Tablet, [facility]/pharmacy #[id number], Partial fill upon patient request if the prescription is for a schedule II opioid drug., 157, cm, 07/13/21 14:05:00 E... Start Date: 07/28/21 Status: Orderedhydrocortisone topical 25 mg suppository 1 supp = 25 mg, Rectally, 2 times a day, # 28 supp, 1 Refills, Maintenance, 01/13/22 11:17:00 EDT, Suppository, [facility]/pharmacy #[id number], Partial fill upon patient request [...] 2 Refills, Maintenance, 09/06/21 13:27:00 EST, Capsule, [facility]/pharmacy #[id number], Partial fill upon [...] Gm, 2 Refills, Maintenance, 02/02/22 16:37:00 EDT, [facility]/pharmacy #[id number], Partial fill upon patient [...] Gm, 1 Refills, Maintenance, 11/16/20 13:42:00 EDT, [facility]/pharmacy #[id number], Partial fill upon patient request if the prescription is for a schedule II opioid drug., 17 Gm By Mouth Daily,Instr:Titrate as ne... Start Date: 11/16/20 Status: Orderedomeprazole 40 mg oral enteric coated capsule 1 capsule = 40 mg, By Mouth, 2 times a day, # 120 capsule, 1 Refills, Maintenance, 12/28/20 11:10:00EDT, EC Capsule, [facility]/pharmacy #[id number], 157.4, cm, 12/28/20 9:40:00 EDT, [...]
--- OUTSIDE RECORDS SUMMARY | 2022-05-03 09:39 | XMS_ITS | Continuity of Care Document ---
:1980 Author Organization [facility] Address [address] [place] [phone]- Care Team Providers Name Role Phone Po Deirdre DENNEY Primary Care Physician [place] [facility] [place] 03/15/22 - 04/14/22 [facility] [address] [place] [phone]- Allergies, Adverse Reactions, Alerts Substance Reaction Severity [...] capsule, 2 Refills, Maintenance, 09/06/21 13:28:00 EST, [facility]/pharmacy #[id number], Partial fill upon patient request if [...] tablet, 3 Refills, Maintenance, 07/28/21 14:55:00EST, Tablet, [facility]/pharmacy #[id number], Partial fill upon [...] 2 Refills, Maintenance, 09/06/21 13:27:00 EST, Capsule, [facility]/pharmacy #[id number], Partial fill upon patient request if the prescription is for a schedule II opioid drug., 157, cm, 09/06/21 12:56:00 EST, He... Start Date: 09/06/21 Status: Orderedmenthol-zinc oxide 0.44%-20.6% topical ointment See Instructions, apply to anal area 3-4 times a day, # 113 Gm, 2 Refills, Maintenance, 02/02/22 16:37:00 EDT, [facility]/pharmacy #[id number], Partial fill upon patient request if the prescription is for a schedule II opioid drug., apply to anal area 3-4 times a... Start Date: 02/02/22 Status: Orderedmethocarbamol 500 mg oral tablet 2 tablet = 1,000 mg, By Mouth, 4 times a day, 0 Refills, Maintenance, 12/20/16 14:11:16 Start Date: 12/20/16 Status: Orderedpantoprazole 40 mg oral delayed release [...] Condition Effective Dates Status Health Status Informant Constipation(Confirmed) Active Social History Social History Type Response Smoking Status Current some day smoker entered on: 12/20/16 Sex Care Team PersonnelName: Deirdre Cantrell MD Address: [address] [place] [id number]
--- OUTSIDE RECORDS SUMMARY | 2022-05-03 09:39 | XMS_ITS | Continuity of Care Document ---
:1980 Author Organization [facility] Address [address] [place] [address]- Care Team Providers Name Role Phone Po Deirdre DENNEY Primary Care Physician [place] [facility] [place] - 11[place]24/[address] [address] Attending Physician: Kenisha Najera MD Admitting Physician: Kenisha Najera MD Allergies, Adverse Reactions, Alerts Substance Reaction [...] 2 Refills, Maintenance, 09/06/21 13:28:00 EST, [facility]/pharmacy #[id number], Partial fill upon patient request if the [...] Orderedlidocaine 5% topical ointment [facility]QUE [facility] Start Date: 04/24/15 [...] Status: Orderedlisinopril 5 mg oral [facility] Start Date: 04/24/15 Status: Orderedmethocarbamol 500 [...] Refills, Maintenance, 12/28/20 11:10:00EDT, EC Capsule, [facility]/pharmacy #[id number], 157.4, cm, 12/28/20 9:40:00 EDT, Height, [...]
--- OUTSIDE RECORDS SUMMARY | 2022-05-03 09:39 | XMS_ITS | Continuity of Care Document ---
:1980 Author Organization [facility] Address Unavailable , Care Team Providers Name Role Phone Deirdre Cantrell MD Primary Care Physician [place] [facility] [place]22 [facility] Attending Physician: Milagro Jay NP Referring Physician: Deirdre Cantrell MD Allergies, Adverse [...] 09/06/21 13:28:00 EST, [facility]/pharmacy #[id number], Partial fill upon patient request if the [...] tablet, 3 Refills, Maintenance, 07/28/21 14:55:00EST, Tablet, [facility]/pharmacy #[id number], Partial fill upon patient request if the prescription is for a schedule II opioid drug., 157, cm, 07/13/21 14:05:00 E... Start Date: 07/28/21 Status: Orderedhydrocortisone topical 25 mg suppository 1 supp = 25 mg, Rectally, 2 times a day, # 28 supp, 1 Refills, Maintenance, 01/13/22 11:17:00 EDT, Suppository, [facility]/pharmacy #[id number], Partial fill upon patient request if the prescription is for a schedule II opioid drug., 157.5, cm, 01/12/22 14:41:00 E... Start Date: 01/13/22 Stop Date: 02/10/22 Status: Orderedlactulose 10 gm/15 ml oral syrup 15 mL = 10 Gm, By Mouth, Daily, # 480 mL, 3 Refills, Acute 01/26/22 8:00:00 EDT, 12/09/21 15:31:00 EDT, Syrup, [facility]/pharmacy #[id number], Partial fill upon patient request if the prescription is for a schedule II opioid drug., 15 mL By Mouth Daily, 157, cm,... Start Date: 12/09/21 Stop Date: 01/26/22 Status: Orderedlidocaine 5% topical ointment APLIQUE AL AREA AFECTADA [facility] AL KINGS Start Date: [...] Ordered Vital Signs Most recent to oldest [Reference Range]: 1 Height 157.5 cm (01/12/22 2:41 PM) Weight 60.8 kg (01/12/22 2:41 PM) Pulse Rate [55-90 bpm] 81 bpm (01/12/22 2:41 PM) Body Mass Index [18.5-24.99] 24.51 (01/12/22 2:41 PM) Blood Pressure [90-138/55-84 mm Hg] 96/77 mm Hg (01/12/22 2:41 PM) Respiratory Rate [16-30 br/min] 16 br/min (01/12/22 2:41 PM) Temperature [96.8-100.4 DegF] 97.0 DegF (01/12/22 2:41 PM) Social History Social History Type Response Smoking Status Current some day smoker entered on: 12/20/16 Sex
--- OUTSIDE RECORDS SUMMARY | 2022-05-03 09:39 | XMS_ITS | Continuity of Care Document ---
:1980 Author Organization [facility] Address [address] [place] [id number]- Care Team Providers Name Role Phone Po Deirdre DENNEY Primary Care Physician Encounter [facility] [place] Date(s): 12/09/21 - 01/08/22 [facility] [address] [place] [phone]- Attending Physician: Magaly Santiago Admitting Physician: Magaly [...] 2 Refills, Maintenance, 09/06/21 13:28:00 EST, [facility]/pharmacy #[id number], Partial fill upon patient request if the [...] 3 Refills, Maintenance, 07/28/21 14:55:00EST, Tablet, [facility]/pharmacy #[id number], Partial fill upon patient request if the prescription is for a schedule II opioid drug., 157, cm, 07/13/21 14:05:00 E... Start Date: 07/28/21 Status: Orderedlactulose 10 gm/15 ml oral syrup 15 mL = 10 Gm, By Mouth, Daily, # 480 mL, 3 Refills, Acute 01/26/22 8:00:00 EDT, 12/09/21 15:31:00 EDT, Syrup, [facility]/pharmacy #[id number], Partial fill upon patient request if [...] Refills, Maintenance, 09/06/21 13:27:00 EST, Capsule, [facility]/pharmacy #[id number], Partial fill upon patient request if the prescription is for a schedule II opioid drug., 157, cm, 09/06/21 12:56:00 EST, He... Start Date: 09/06/21 Status: Orderedlisinopril 5 mg oral tablet TOME PETER TABLETA TOS LOS SINHA Start Date: 04/24/15 Status: Orderedmethocarbamol 500 mg oral tablet 2 tablet = 1,000 mg, By Mouth, 4 times a day, 0 Refills, Maintenance, 12/20/16 14:11:16 Start Date: 12/20/16 Status: OrderedMiraLax oral powder for reconstitution = 17 Gm, By Mouth, Daily, Titrate as needed, # 527 Gm, 1 Refills, Maintenance, 11/16/20 13:42:00 EDT, [facility]/pharmacy #[id number], Partial fill upon patient request if the prescription is for a schedule II opioid drug., 17 Gm By Mouth Daily,Instr:Titrate as ne... Start Date: 11/16/20 Status: Orderedomeprazole 40 mg oral enteric coated capsule 1 capsule = 40 mg, By Mouth, 2 times a day, # 120 capsule, 1 Refills, Maintenance, 12/28/20 11:10:00EDT, EC Capsule, [facility]/pharmacy #[id number], 157.4, cm, 12/28/20 9:40:00 EDT, Height, [...]
--- OUTSIDE RECORDS SUMMARY | 2022-05-03 09:39 | XMS_ITS | Continuity of Care Document ---
:1980 Author Organization [facility] Address [address] [place] [address]- Care Team Providers Name Role Phone Po Deirdre DENNEY Primary Care Physician Encounter [facility] [place] Date(s): 02/04/21 - 06/16/[address] [id number] Attending Physician: Mark Pearson MD Admitting Physician: Mark Pearson MD Allergies, Adverse Reactions, Alerts Substance Reaction [...] Gm, 1 Refills, Maintenance, 11/16/20 13:42:00 EDT, [facility]/pharmacy #[id number], Partial fill upon patient request if the prescription is for a schedule II opioid drug., 17 Gm By Mouth Daily,Instr:Titrate as ne... Start Date: 11/16/20 Status: Orderedomeprazole 40 mg oral enteric coated capsule 1 capsule = 40 mg, By Mouth, 2 times a day, # 120 capsule, 1 Refills, Maintenance, 12/28/20 11:10:00EDT, EC Capsule, [facility]/pharmacy #[id number], 157.4, cm, 12/28/20 9:40:00 EDT, [...]
[2022-05-03 10:57] LABS: Glucose, Whole Blood 57 mg/dL (60-115)
[2022-05-03 11:03] LABS: MANUAL DIFF FLAG NO
[2022-05-03 11:05] LABS: Basophils Absolute Auto 0.1 X10*3/uL (0.0-0.2); Basophils Percent Auto 0.9 % (0-2); Eosinophils Absolute Auto 0.2 X10*3/uL (0.0-0.4); Eosinophils Percent Auto 2.2 % (0-4); Hematocrit 32.5 % (37.0-47.0); Hemoglobin 10.5 g/dl (12.0-16.0); Imm Gran Abs Auto 0.02 X10*3/uL (0.00-0.03); Imm Gran Pct Auto 0.3 % (0.0-0.4); Lymphocytes Absolute Auto 1.5 X10*3/uL (1.2-4.9); Mean Corpuscular HGB Conc 32.3 g/dl (31.0-35.0); Mean Corpuscular Hemoglobin 28.8 pg (27.0-33.0); Mean Corpuscular Volume 89.3 fL (80.0-98.0); Mean Platelet Volume 9.4 fL (9.4-12.3); Monocytes Absolute Auto 0.5 X10*3/uL (0.1-1.2); Monocytes Percent Auto 7.3 % (2-11); Neutrophils Absolute Auto 4.5 x10*3/uL (2.0-8.3); Neutrophils Percent Auto 67.3 % (45-73); Platelet Count 356 X10*3/uL (160-400); Red Blood Count 3.64 X10*6/uL (4.20-5.50); Red Cell Distribution Width 13.1 % (11.0-16.0); White Blood Count 6.7 X10*3/uL (4.8-10.8)
[2022-05-03] MEDS: Lactated Ringers 1,000 ML 999 ML IV (11:05)
[2022-05-03 11:09] VITALS: BP 111/69; PULSE 80; RESP 16
[2022-05-03 11:20] LABS: Glucose, Whole Blood 70 mg/dL (60-115)
--- NOTE | 2022-05-03 11:21 | PC.NURSE ---
patient a/ox4 . pearrla . heart rate regular at 86 . lungs clear . skin pink warm and dry. abdomen soft . rebound tenderness noted in left lower quadrant .positive bowel sounds noted in all quadrants . patient reports 9/10 pain level . POC 57 , patient given OJ and re evaluated POC increased to [address] Jitendra Marrero aware . IV placed in AC . Lactaed ringer hung . patient aware of plan of care .
[2022-05-03 11:29] LABS: Appearance Urine Cloudy; Color Urine Yellow; Glucose Urine UA Negative (Negative); Leukocyte Esterase Urine Trace (Negative); Nitrite Urine Negative (Negative); PH 6.5 (5.0-9.0); Specific Gravity - Urine 1.025 (1.005-1.025); UMIC TRIGGER UACC YES; Urine Blood Negative (Negative); Urine Ketones Trace mg/dL (Negative); Urine Protein 30 (1+) mg/dL (Neg-Trace)
[2022-05-03 11:30] LABS: UPreg QC Valid YES; Urine Pregnancy NEGATIVE (NEGATIVE)
[2022-05-03 11:34] LABS: Bacteria Urine 4+ (None Seen); Hyaline Casts Urine 0-2 /LPF (0-2); WBC Urine 0-5 /HPF (0-5)
[2022-05-03 12:02] VITALS: BP 98/54; PULSE 82; RESP 14; TEMP 36.8; O2SAT 100
[2022-05-03 12:04] LABS: Glucose, Whole Blood 72 mg/dL (60-115)
[2022-05-03] MEDS: traMADoL HCL 50 MG TABLET PO (12:09)
[2022-05-03 12:19] LABS: Alanine Aminotransferase 7 U/L (0-31); Albumin Level 3.9 g/dL (3.5-5.0); Alkaline Phosphatase 49 U/L (39-117); Anion Gap 12 (12-20); Aspartate Amino Transferase 10 U/L (5-31); Bilirubin Direct < 0.2 mg/dL (0.0-0.5); Bilirubin Total 0.3 mg/dL (0.0-1.0); Blood Urea Nitrogen 12 mg/dL (9-16); Calcium 9.1 mg/dL (8.4-10.2); Carbon Dioxide 29 mmol/L (22-29); Chloride 105 mmol/L (96-108); Estimated Glomerular Filt Rate > 60; Glucose Random 94 mg/dL (60-115); Lipase 19 U/L (8-78); Magnesium 1.9 mg/dL (1.6-2.6); Potassium 3.7 mmol/L (3.3-5.1); Sodium 142 mmol/L (135-145); Total Protein 5.8 g/dL (6.5-8.0)
--- NOTE | 2022-05-03 13:44 | MHC.CM.ED ---
Received consult for assistance with services: Met with pt who states she resides alone and requires assistance to remain independent. Pt states she has had complications r/t bariatric surgery (hypoglycemia and GI issues) She has had syncopal episodes and cites difficulty completing tasks d/t fatigue. Pt states her PCP has completed paperwork for Ruddy assistance and she has received some DME from her insurance company, [employer]. (cane, shower chair) She is hoping CM can expedite her services as well as obtain a life alert for her at no cost. Pt is not eligible for no cost life alert and was instructed to contact [facility] member services for information on programs they can offer her including Community case management. [facility] CM is not affiliated with [employer] and can not expedite or modify services. Pt states she has a working cell phone and a neighbor who assists with transportation. Encouraged pt to place follow up calls to inquire on Ruddy approval. Instructed pt to follow up w/bariatric surgeon re: refractory hypoglycemia as well as with PCP for BG management. Pt states she will call a neighbor for transportation to home. ED MD updated on above - no further CM involvement needed.
[2022-05-03 14:26] VITALS: BP 95/60; PULSE 74; RESP 13; TEMP 37.2; O2SAT 100
--- NOTE | 2022-05-03 14:46 | PC.NURSE ---
patient a/ox4 . went over discharge instructions a ordered by provider . patient to follow up with already scheduled specialist appointments . She is to return if symptoms worsen . patient has no questions at this time .
--- NOTE | 2022-05-03 14:47 | MHC.CARE ---
CARE Team meets with pt after receiving a consult request from the ED provider.? Pt has multiple health issues and is dealing with discomfort.? Pt is a 41 y/o bilingual Icelandic/Cymro speaking female who is previously unknown to the CARE Team.? Today, pt came in with complaints of medical issues and depression.? Pt has been medically cleared and is being assessed by the CARE Team to determine appropriate treatment recommendations. Pt has no known hx of inpt hospitalizations, suicide attempts, substance use and reports being medication compliant. Pt is alert and oriented x4 and is assessed for Risk/consult in her room in the main ED.? Pt appears disheveled and her stated age.? She is engaged in the assessment and is help seeking stating that her depression is in the context of her medical issues, her inability to secure services (Such as a life alert bracelet, hand rails for her shower etc).? Her speech and eye contact are unremarkable. Sleep and appetite are fair.? She describes her mood as depressed for about a month.? Pt does not appear delusional or experiencing symptoms of psychosis.? Pt denies SI, HI, and self-harm urges and denies any hx of such. Pt does not appear to be at risk, and does not fit criteria for inpatient admission.? Pt reports having a therapist and prescriber through [facility]. The outcome of the assessment was discussed with Dr Frank Marrero, ED provider.?
== END 2022-05-03 14:48 | disposition home or self-care (01) ==
PROVIDERS: Emergency Provider Emergency Medicine; PCP Internal Medicine
DX: R10.13 Epigastric pain (principal); R05.9 Cough, unspecified; R50.9 Fever, unspecified; Z98.84 Bariatric surgery status; Z79.899 Other long term (current) drug therapy
CPT/HCPCS: 36415; 76775; 80048; 80076; 81001; 81025; 82947; 83690; 83735; 85025; 96360; 96361; 99284; 99285

== ENCOUNTER 2022-05-04 13:54 | Outpatient (REF) | payer OTHER, SELFPAY ==
[2022-05-05 10:27] LABS: BV Int Neg Control Negative (Negative); BV Int Pos Control Positive (Positive)
== END 2022-05-04 13:55 | disposition home or self-care (01) ==
LOC: HO.LNP 13:54
PROVIDERS: Visit Provider Obstetrics & Gynecology
DX: N76.0 Acute vaginitis (principal); N89.8 Other specified noninflammatory disorders of vagina; R10.2 Pelvic and perineal pain; N20.0 Calculus of kidney
CPT/HCPCS: 87086; 87186; 87480; 87510; 87660; 99212

== ENCOUNTER 2022-05-17 08:35 | Emergency (ER) | payer OTHER, SELFPAY ==
--- NOTE | ~2022-05-17 | CT_ITS ---
EXAMINATION: CT ABDOMEN AND PELVIS WITHOUT CONTRAST CLINICAL INFORMATION: Upper abdominal pain COMPARISON: None TECHNIQUE: Multidetector volumetric imaging was performed from the superior aspect of the liver through the pubic symphysis. Sagittal and coronal reformatted images were obtained on the technologist's workstation. This CT examination was performed using dose optimization techniques as appropriate, variously including the following: *Automated exposure control *Adjustment of mA and/or kV according to patient size (this includes techniques or standardized protocols for targeted exams where dose is matched to indication/reason for exam; i.e. extremities or head) *Use of iterative reconstruction technique DLP: 329 mGy-cm FINDINGS: LUNG BASES: The visualized lung bases are unremarkable. LIVER, GALLBLADDER, AND BILIARY TREE: The liver is normal in size, shape, and attenuation. No focal hepatic lesion or biliary ductal dilatation is present. The gallbladder is unremarkable with no evidence of radiopaque gallstones, gallbladder wall thickening, or obvious pericholecystic inflammatory changes. PANCREAS: Unremarkable. SPLEEN: Unremarkable. ADRENAL GLANDS: Unremarkable. KIDNEYS AND URETERS: The kidneys are normal in size, shape, and attenuation. No hydronephrosis or hydroureter. There is a 0.2 cm right lower pole calculus which is 6 cm from the posterior axillary line. BLADDER: Unremarkable. GASTROINTESTINAL TRACT: Status post gastric sleeve. Normal caliber of the small bowel. No obstruction. Normal appendix. No colonic wall thickening or inflammatory change. Moderate diffuse colonic stool burden. No free air or free fluid. ABDOMINAL WALL: No significant hernia is appreciated. LYMPH NODES: Normal. VASCULAR: Unremarkable. PELVIC VISCERA: Uterus not seen. No adnexal mass. OSSEOUS STRUCTURES: No acute or suspicious osseous abnormality. Mild degenerative changes noted in the spine. CT/CT abdomen pelvis wo IV con IMPRESSION: 1. No acute findings in the abdomen or pelvis. No inflammatory changes. Moderate colonic stool burden. 2. Nonobstructing right lower pole renal calculus. Fleischner guidelines were followed.
[2022-05-17 09:28] VITALS: BP 95/60; PULSE 73; RESP 20; TEMP 36.6; O2SAT 100; BMI 20.8
[2022-05-17 09:54] LABS: MANUAL DIFF FLAG NO
[2022-05-17 09:57] LABS: Eosinophils Absolute Auto 0.1 X10*3/uL (0.0-0.4); Eosinophils Percent Auto 1.5 % (0-4); Hematocrit 32.7 % (37.0-47.0); Hemoglobin 10.3 g/dl (12.0-16.0); Imm Gran Abs Auto 0.01 X10*3/uL (0.00-0.03); Imm Gran Pct Auto 0.2 % (0.0-0.4); Lymphocytes Absolute Auto 1.8 X10*3/uL (1.2-4.9); Lymphocytes Percent Auto 43.5 % (20-40); Mean Corpuscular HGB Conc 31.5 g/dl (31.0-35.0); Mean Corpuscular Hemoglobin 28.7 pg (27.0-33.0); Mean Corpuscular Volume 91.1 fL (80.0-98.0); Monocytes Absolute Auto 0.4 X10*3/uL (0.1-1.2); Monocytes Percent Auto 8.9 % (2-11); Neutrophils Absolute Auto 1.8 x10*3/uL (2.0-8.3); Neutrophils Percent Auto 44.9 % (45-73); Platelet Count 357 X10*3/uL (160-400); Red Blood Count 3.59 X10*6/uL (4.20-5.50); Red Cell Distribution Width 13.1 % (11.0-16.0); White Blood Count 4.1 X10*3/uL (4.8-10.8)
[2022-05-17 10:18] LABS: Alanine Aminotransferase 11 U/L (0-31); Alkaline Phosphatase 47 U/L (39-117); Anion Gap 16 (12-20); Aspartate Amino Transferase 22 U/L (5-31); Bilirubin Total 0.3 mg/dL (0.0-1.0); Blood Urea Nitrogen 13 mg/dL (9-16); Carbon Dioxide 20 mmol/L (22-29); Chloride 107 mmol/L (96-108); Estimated Glomerular Filt Rate > 60; Glucose Random 89 mg/dL (60-115); Lipase 18 U/L (8-78); Potassium 5.4 mmol/L (3.3-5.1); Sodium 138 mmol/L (135-145); Total Protein 6.6 g/dL (6.5-8.0)
[2022-05-17 10:19] LABS: COVID-19 Test Negative (Negative)
[2022-05-17 10:32] LABS: Glucose, Whole Blood 49 mg/dL (60-115)
--- OUTSIDE RECORDS SUMMARY | 2022-05-17 10:51 | XMS_ITS | Continuity of Care Document ---
:1980 Author Organization [facility] Address [address] [place] [address] Drive [address] [place] [phone]- Care Team Providers Name Role Phone Po Deirdre DENNEY Primary Care Physician [place] [facility] [place] - 05/12/[address] [place] [id number] Attending Physician: AdmMagaly carmona Admitting Physician: Admtr, Ar8 Referring Physician: Admtr, Ar8 Allergies, Adverse Reactions, Alerts Substance Reaction Severity Status Motrin Active Milk Products Active HYDROcodone Active Pepper (BLK) rash Active Tomatoes rash Active Egg Allergy Active traZODone Anaphylaxis Persistent Severe Active Medications acetaminophen 500 mg oral tablet [...] capsule, 2 Refills, Maintenance, 09/06/21 13:28:00 EST, [facility]/pharmacy #[id number], Partial fill upon patient request if the [...] each, 11 Refills, Maintenance, 04/19/22 14:29:00 EDT, [facility]/pharmacy #[id number], Partial fill upon patient requestif the prescription is for a schedule II opioid d... Start Date: 04/19/22 Status: Orderedfamotidine 40 mg oral tablet 1 tablet = 40 mg, By Mouth, Daily at bedtime, # 90 tablet, 3 Refills, Maintenance, 07/28/21 14:55:00EST, Tablet, [facility]/pharmacy #[id number], Partial fill upon patient request if the prescription is for a schedule II opioid drug., 157, cm, 07/13/21 14:05:00 E... Start Date: 07/28/21 Status: Orderedlactulose 10 gm/15 ml oral syrup 15 mL = 10 Gm, By Mouth, Daily, # 480 mL, 3 Refills, Maintenance, 04/28/22 14:33:00 EDT, Syrup, [facility]/pharmacy #[id number], Partial fill upon patient request if the prescription is for a schedule II opioid drug., 15 mL By Mouth Daily, 158, cm, 04/19/22 14:23:... Start Date: 04/28/22 Status: Orderedlidocaine 5% topical ointment APLIQUE AL AREA AFECTADA [facility] AL KINGS Start Date: 04/24/15 Status: OrderedLinzess 290 mcg oral capsule 1 capsule = 290 mcg, By Mouth, Daily, # 30 capsule, 2 Refills, Maintenance, 09/06/21 13:27:00 EST, Capsule, [facility]/pharmacy #[id number], Partial fill upon patient request if the prescription is for a schedule II opioid drug., 157, cm, 09/06/21 12:56:00 EST, He... Start Date: 09/06/21 Status: Orderedmenthol-zinc oxide 0.44%-20.6% topical ointment See Instructions, apply to anal area 3-4 times a day, # 113 Gm, 2 Refills, Maintenance, 02/02/22 16:37:00 EDT, [facility]/pharmacy #[id number], Partial fill upon patient [...] tablet, 11 Refills, Maintenance, 04/19/22 14:54:00 EDT, [facility]/pharmacy #[id number], Partial fill upon patient [...] EDT, Dry Weight Start Date: 07/13/21 Status: Orderedtrospium chloride 20 mg oral tablet 1 tablet = 20 mg, By Mouth, 2 times a day, # 60 tablet, 11 Refills, Maintenance, 04/21/22 9:51:00 EDT, Tablet, [facility]/pharmacy #[id number], Partial fill upon patient request if the prescription is for a schedule II opioid drug., 158, cm, 04/19/22 14:23:00 EDT,... Start Date: 04/21/22 Status: OrderedVistaril Capsule Intramuscular, Every 4 hours, 0 Refills, Maintenance, 12/20/16 14:11:54 Start Date: 12/20/16 Status: OrderedVitamin B Comp/Vitamin C/Iron Tablet 1, tablet, By Mouth, Daily, Refills 0, Maintenance, 12/20/16 14:11:38 Start Date: 12/20/16 Status: OrderedVitamin D3 1 tablet, By Mouth, 2 times a day, calcium with vit d, 0 Refills, Maintenance, 12/20/16 14:10:46 EDT Start Date: 12/20/16 Status: Ordered Problem List Condition Confirmation Course Effective Dates Status Health I nformant Status Arthritis Confirmed Active Constipation Confirmed Active Diabetes mellitus Confirmed Active Diverticulitis Confirmed Active GERD - Confirmed Active Gastro-esophageal reflux disease HTN - Hypertension Confirmed Active Social History Social History Type Response Smoking Status Former smoker, quit more iqra n 30 days ago entered on: 04/19/22 Sex Patient Care team information PersonnelName: Deirdre Cantrell MD Address: Address: [address] [place], [place] [address], [place] [address]
[2022-05-17 11:08] LABS: Glucose, Whole Blood 87 mg/dL (60-115)
[2022-05-17] MEDS: 0.9 % Sodium Chloride 1,000 ML 999 ML IV (11:36)
--- NOTE | 2022-05-17 11:54 | ED_ITS ---
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 intake, feelings of nausea without vomiting, denies any use of alcohol for 2 years. She denies any fever chills but states that she has a sore throat. Related Data Home Medications Medication Instructions Recorded Confirmed lactulose 10 gram/15 mL oral 10 g PO DAILY 08/27/20 02/22/22 solution zolpidem 10 mg tablet 10 mg PO BEDTIME PRN Sleep 08/27/20 02/22/22 ascorbate calcium (vitamin C) 500 500 mg PO DAILY 09/08/21 02/22/22 mg tablet quetiapine 50 mg tablet 1 tab PO BID 09/22/21 02/22/22 venlafaxine 150 mg 1 cap PO DAILY 09/22/21 02/22/22 capsule,extended release 24 hr clonazepam 1 mg tablet 1 mg PO TID 10/26/21 02/22/22 quetiapine 400 mg tablet 400 mg PO BEDTIME 10/26/21 02/22/22 simethicone 80 mg chewable tablet 80 mg PO Q6H PRN GAS 10/26/21 02/22/22 ursodiol 300 mg capsule 300 mg PO BID 10/26/21 02/22/22 ziprasidone HCl 20 mg capsule 20 mg PO BID 10/26/21 02/22/22 acetaminophen 500 mg tablet 2 tab PO Q8H 02/11/22 02/22/22 cholecalciferol (vitamin D3) 50 1 tab PO DAILY 02/11/22 02/22/22 mcg (2,000 unit) tablet (Vitamin D3) famotidine 40 mg tablet 1 tab PO BEDTIME 02/11/22 02/22/22 hydroxyzine pamoate 50 mg capsule 1 cap PO BID PRN Anxiety 02/11/22 02/22/22 linaclotide 290 mcg capsule 1 cap PO DAILY 02/11/22 02/22/22 (Linzess) ondansetron 4 mg disintegrating 1 tab PO Q8H PRN nausea 02/11/22 02/22/22 tablet pantoprazole 40 mg tablet,delayed 40 mg PO DAILY@0630 02/11/22 02/22/22 release Previous Rx's Medication Instructions Recorded vitamin B complex (B 1 tab PO DAILY #30 tabs 07/13/21 Complex-Vitamin B12 tablet) blood pressure monitor (Blood #1 ea 10/31/21 Pressure Kit) blood-glucose meter (FreeStyle #1 ea 10/31/21 Lite Meter kit) lancets 28 gauge (FreeStyle #100 ea 10/31/21 Lancets) atorvastatin 20 mg tablet 20 mg PO DAILY #90 tabs 01/27/22 BATH CHAIR #1 ea 01/31/22 CANE #1 ea 01/31/22 LIFELINE ALERT SYSTEM #1 ea 01/31/22 WRIST BRACE #1 ea 01/31/22 ALCOHOL PADS #100 ea 02/21/22 sucralfate 1 gram tablet 1 g PO BID #180 tabs 02/21/22 cyclobenzaprine 10 mg tablet 10 mg PO TID #10 tabs 03/06/22 ENSURE once a day #90 ea 03/09/22 glucagon 1 mg solution for 1 mg IVPUSH ONCE PRN hypoglycemia 03/09/22 injection (GlucaGen HypoKit) below 55 #1 ea lidocaine 5 % topical patch 1 patch topical DAILY 30 days #30 03/09/22 (Lidoderm) ea diphenhydramine HCl 25 mg capsule 25 mg PO BEDTIME PRN sleep #90 caps 03/10/22 (Benadryl) cefuroxime axetil 500 mg tablet 500 mg PO BID 10 days #20 tabs 04/02/22 codeine 10 mg-guaifenesin 100 mg/5 10 ml PO Q6H PRN cough #237 mL 04/02/22 mL oral liquid tramadol 50 mg tablet 50 mg PO Q6H PRN pain 30 days #60 04/10/22 tabs acarbose 25 mg tablet 25 mg PO TID #90 tabs 04/13/22 dicyclomine 20 mg tablet 20 mg PO BID #60 tabs 04/24/22 oxycodone 5 mg tablet 5 mg PO Q6H PRN pain #14 tabs 04/25/22 terconazole 0.8 % vaginal cream 1 appful vaginal BEDTIME 04/25/22 Candidiasis vaginitis 3 days #20 grams blood sugar diagnostic (FreeStyle #100 ea 05/01/22 Lite Strips) tramadol 50 mg tablet 50 mg PO BID PRN pain #10 tabs 05/03/22 nitrofurantoin 100 mg PO BID 5 days #10 caps 05/09/22 monohydrate/macrocrystals 100 mg capsule (Macrobid) sucralfate 100 mg/mL oral 10 ml PO BID #420 mL 05/17/22 suspension (Carafate) Allergies Allergy/AdvReac Type Severity Reaction Status Date / Time tomato [TOMATO] Allergy Mild HIVES Verified 05/17/22 09:27 DIFFICULTY BREATHING hydrocodone [HYDROCODONE] Allergy Unknown RASH, Verified 05/17/22 09:27 AIRWAY CLOSES ibuprofen [From MOTRIN] Allergy Unknown STOMACH Verified 05/17/22 09:27 UPSET, vomiting trazodone [TRAZODONE] Allergy Unknown UNKNOWN, Verified 05/17/22 09:27 stomach upset black pepper [BLACK PEPPER] AdvReac Severe DIFFICULTY Verified 05/17/22 09:27 BREATHING, hives Review of Systems Review of Systems Pertinent positives and negatives as stated in HPI 10 point review of systems is otherwise negative. 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 Diverticulosis GERD (gastroesophageal reflux disease) History of bipolar disorder History of schizophrenia Hypercholesterolemia Hypertension Insomnia Numbness of left hand Renal calculi Spondylosis of lumbar spine Type 2 diabetes mellitus with hyperglycemia Vitamin D deficiency Surgical History H/O: hysterectomy History of tubal ligation Hx of bariatric surgery Family History Family History Father Medical history unknown Mother Medical history unknown Paternal Aunt Uterine cancer Diabetes Hypertension Paternal Uncle Liver cancer Heart attack Maternal Aunt Stroke Family/Other Chronic mental illness Sister Uterine cancer Schizophrenia Brother Substance abuse Other Mental health disorder Social History Social History Household Members: None Housing: Apartment Do you presently have visiting nurse or other home services: Yes Alcohol intake: never Patient Tobacco Use Status: Never used Tobacco e-Cigarette/Vaping Use: Never Used Second Hand Smoke Exposure: No Advance Directives: No Advance Directives Information Provided: No service: No Current occupational status: disabled Current occupational exposures/hazards: No Cognitive needs: No Hearing needs: No Vision needs: No Physical Exam ED Vital Signs: Vital Signs - 24 hr 05/17/22 09:28 Temperature 98 F Pulse Rate 73 Respiratory Rate 20 Blood Pressure 95/60 Pulse Oximetry 100 Oxygen Delivery Method Room Air BMI result Body Mass Index 20.8 VITAL SIGNS: Reviewed. GENERAL: Well developed, well nourished, in no acute distress. HEAD: Normocephalic/atraumatic EYES: PERRLA, EOMI EARS: Ext canals without abnormality OROPHARYNX: no oral lesions noted, posterior pharynx clear and non-erythematous without noted tonsillar enlargement/erythema/exudates NECK: Supple, no adenopathy LUNGS: Normal breath sounds. No adventitious sounds or accessory muscle use. SpO2<100> CARDIOVASCULAR: Regular rate and rhythm without noted murmurs ABDOMEN: Soft, diffusely tender without rebound, non-distended with bowel sounds. MUSCULOSKELETAL: No tenderness, deformities, or effusions noted on gross inspection. EXTREMITIES: No cyanosis, clubbing or edema. SKIN: Inspection of the skin reveals no rashes NEUROLOGIC: Alert and oriented x 4. Strength and sensation to light touch were grossly intact x 4. Course Course Course Narrative: 41-year-old female with history and clinical presentation likely related to underlying ulcer or gastritis. Patient states that she has been evaluated by GI and her bariatric surgeon within the past 2 months which included an upper endoscopy. Although she seems a little unsure what the diagnosis was at that time she does endorse that it may have been an ulcer. On review of patient's medications she is noted to be on pantoprazole and Famotidine. Given patient's history will conduct in abdomen pelvis with p.o. contrast, no IV contrast is felt to be needed at this time and on review of all investigations she is noted to be initially hypoglycemic but on rechecking POC is 87. The noted hyperkalemia is felt to be secondary to dehydration taken in context with bicarb of 20. She will receive 1 L of IV fluids and I will follow-up on CT scan and repeat a BMP. Patient received GI cocktail and Carafate. Review of all investigations otherwise negative for acute findings, these results were discussed with her at bedside to include evidence of constipation which may be contributing to her discomfort. She will be started on a Carafate regimen and instructed to follow-up with her bariatric surgeon. Reevaluation(s) Reevaluation #1: EGD results reviewed from 04/07/2022 which demonstrate grade a esophagitis in the GE junction which is compatible with reflux esophagitis. Renewed evidence of linear erythematous mucosa in the antrum, previously biopsied. Plan: Resume liquid diet and advance regular diet as tolerated. Patient should continue to eat in small portions. Follow-up with Dr. Driscoll as scheduled. Continue PPI. Time: 13:00 MDM - Abdominal Pain Lab Data Result diagrams: 05/17/22 09:50 05/17/22 09:50 Labs: Lab Results 05/17/22 05/17/22 05/17/22 Range/Units 09:50 09:50 09:54 WBC 4.1 L (4.8-10.8) X10*3/uL RBC 3.59 L (4.20-5.50) X10*6/uL Hgb 10.3 L (12.0-16.0) g/dl Hct 32.7 L (37.0-47.0) % MCV 91.1 (80.0-98.0) fL MCH 28.7 (27.0-33.0) pg MCHC 31.5 (31.0-35.0) g/dl RDW 13.1 (11.0-16.0) % Plt Count 357 (160-400) X10*3/uL MPV 10.0 (9.4-12.3) fL Immature Gran % (Auto) 0.2 (0.0-0.4) % Neut % (Auto) 44.9 L (45-73) % Lymph % (Auto) 43.5 H (20-40) % [place] % (Auto) 8.9 (2-11) % Eos % (Auto) 1.5 (0-4) % Baso % (Auto) 1.0 (0-2) % Lymph # (Auto) 1.8 (1.2-4.9) X10*3/uL [place] # (Auto) 0.4 (0.1-1.2) X10*3/uL Eos # (Auto) 0.1 (0.0-0.4) X10*3/uL Baso # (Auto) 0.0 (0.0-0.2) X10*3/uL Abs Immat Gran (auto) 0.01 (0.00-0.03) X10*3/uL Absolute Neuts (auto) 1.8 L (2.0-8.3) x10*3/uL Absolute Nucleated RBC 0.000 (0.0-0.012) X10*3/uL Nucleated RBC % (auto) 0.0 (0.0-0.2) /100WBC Sodium 138 (135-145) mmol/L Potassium 5.4 H D (3.3-5.1) mmol/L Chloride 107 (96-108) mmol/L Carbon Dioxide 20 L (22-29) mmol/L Anion Gap 16 (12-20) BUN 13 (9-16) mg/dL Creatinine 0.65 (0.5-1.4) mg/dL Estim Creat Clear Calc 90.0 Estimated GFR > 60 POC Glucose (60-115) mg/dL Random Glucose 89 (60-115) mg/dL Calcium 9.0 (8.4-10.2) mg/dL Total Bilirubin 0.3 (0.0-1.0) mg/dL AST 22 D (5-31) U/L ALT 11 (0-31) U/L Alkaline Phosphatase 47 (39-117) U/L Total Protein 6.6 (6.5-8.0) g/dL Albumin 4.0 (3.5-5.0) g/dL Lipase 18 (8-78) U/L COVID-19 (ANGELA) Negative (Negative) COVID-19 Clin Com See Note 05/17/22 05/17/22 Range/Units 10:27 11:05 WBC (4.8-10.8) X10*3/uL RBC (4.20-5.50) X10*6/uL Hgb (12.0-16.0) g/dl Hct (37.0-47.0) % MCV (80.0-98.0) fL MCH (27.0-33.0) pg MCHC (31.0-35.0) g/dl RDW (11.0-16.0) % Plt Count (160-400) X10*3/uL MPV (9.4-12.3) fL Immature Gran % (Auto) (0.0-0.4) % Neut % (Auto) (45-73) % Lymph % (Auto) (20-40) % [place] % (Auto) (2-11) % Eos % (Auto) (0-4) % Baso % (Auto) (0-2) % Lymph # (Auto) (1.2-4.9) X10*3/uL [place] # (Auto) (0.1-1.2) X10*3/uL Eos # (Auto) (0.0-0.4) X10*3/uL Baso # (Auto) (0.0-0.2) X10*3/uL Abs Immat Gran (auto) (0.00-0.03) X10*3/uL Absolute Neuts (auto) (2.0-8.3) x10*3/uL Absolute Nucleated RBC (0.0-0.012) X10*3/uL Nucleated RBC % (auto) (0.0-0.2) /100WBC Sodium (135-145) mmol/L Potassium (3.3-5.1) mmol/L Chloride (96-108) mmol/L Carbon Dioxide (22-29) mmol/L Anion Gap (12-20) BUN (9-16) mg/dL Creatinine (0.5-1.4) mg/dL Estim Creat Clear Calc Estimated GFR POC Glucose 49 L* 87 (60-115) mg/dL Random Glucose (60-115) mg/dL Calcium (8.4-10.2) mg/dL Total Bilirubin (0.0-1.0) mg/dL AST (5-31) U/L ALT (0-31) U/L Alkaline Phosphatase (39-117) U/L Total Protein (6.5-8.0) g/dL Albumin (3.5-5.0) g/dL Lipase (8-78) U/L COVID-19 (ANGELA) (Negative) COVID-19 Clin Com Discharge Plan Discharge Clinical Impression: Upper abdominal pain, Constipation, Esophagitis Patient Disposition: Home, Self-Care Instructions: Constipation (ED), Abdominal Pain (ED), Esophagitis (ED) Additional Instructions: 1. Recomiende que no tome ilsa?n medicamento antidiab?nancy a menos que tolere los alimentos y barnard glucosa sea de al menos 110. 2. De lo contrario, reanude todos los medicamentos en el hogar. 3. Est? estre?enmanuel y la recomendaci?n es [employer] de venta codi, todos los d?as. Aumente la cantidad de agua que est? tomando y siga dylan dieta l?quida. 4. Tiene inflamaci?n del es?fago martin se determin? en y est? co menzando con Carafate. Tienes dylan receta para esto. 5. Debe llamar a la oficina de barnard cirujano bryon?trico hoy y le enviar? mi nota a lazaro proveedor. Regrese a la rick de emergencias si los s?ntomas empeoran. Prescriptions: New sucralfate [Carafate] 100 mg/mL suspension 10 ml PO BID Qty: 420 0RF No Action vitamin B complex [B Complex-Vitamin B12] Tablet 1 tab PO DAILY Qty: 30 6RF Rx Instructions: 1,000mcg dose daily (DME) blood pressure monitor [Blood Pressure Kit] Kit See Rx Instructions .Route Qty: 1 0RF Rx Instructions: As directed (DME) blood-glucose meter [FreeStyle Lite Meter] Kit See Rx Instructions .ROUTE .MEDSUPPLY Qty: 1 0RF Rx Instructions: As directed (DME) lancets [FreeStyle Lancets] 28 gauge misc See Rx Instructions .ROUTE .MEDSUPPLY Qty: 100 3RF Rx Instructions: As directed check BS QD atorvastatin 20 mg tablet 20 mg PO DAILY Qty: 90 3RF (DME) CANE See Rx Instructions .Route .MEDSUPPLY Qty: 1 0RF Rx Instructions: As directed (DME) WRIST BRACE See Rx Instructions .Route .MEDSUPPLY Qty: 1 0RF Rx Instructions: As directed (DME) BATH CHAIR See Rx Instructions .Route .MEDSUPPLY Qty: 1 0RF Rx Instructions: As directed (DME) LIFELINE ALERT SYSTEM See Rx Instructions .Route .MEDSUPPLY Qty: 1 0RF Rx Instructions: As directed ([facility] [place] ALCOHOL PADS See Rx Instructions .Route .MEDSUPPLY Qty: 100 3RF Rx Instructions: As directed sucralfate 1 gram tablet 1 g PO BID Qty: 180 3RF lidocaine [Lidoderm] 5 % adhesive patch,medicated 1 patch topical DAILY 30 Days Qty: 30 3RF Rx Instructions: leave on most painful area for up to 12 hrs (DME) ENSURE once a day See Rx Instructions .Route .MEDSUPPLY Qty: 90 0RF Rx Instructions: As directed diphenhydramine HCl [Benadryl] 25 mg capsule 25 mg PO BEDTIME PRN (Reason: sleep) Qty: 90 2RF tramadol 50 mg tablet 50 mg PO Q6H PRN (Reason: pain) 30 Days Qty: 60 0RF dicyclomine 20 mg tablet 20 mg PO BID Qty: 60 0RF (DME) FreeStyle Lite Strips Strip See Rx Instructions .ROUTE .MEDSUPPLY Qty: 100 3RF Rx Instructions: As directed check QID nitrofurantoin monohyd/m-cryst [Macrobid] 100 mg capsule 100 mg PO BID 5 Days Qty: 10 0RF venlafaxine 150 mg capsule,extended release 24hr 1 cap PO DAILY quetiapine 50 mg tablet 1 tab PO BID cyclobenzaprine 10 mg tablet 10 mg PO TID Qty: 10 0RF cefuroxime axetil 500 mg tablet 500 mg PO BID 10 Days Qty: 20 0RF codeine-guaifenesin 10-100 mg/5 mL liquid 10 ml PO Q6H PRN (Reason: cough) Qty: 237 0RF terconazole 0.8 % cream 1 appful vaginal BEDTIME 3 Days Qty: 20 0RF oxycodone 5 mg tablet 5 mg PO Q6H PRN (Reason: pain) Qty: 14 0RF Rx Instructions: Partial Fill upon patient request. tramadol 50 mg tablet 50 mg PO BID PRN (Reason: pain) Qty: 10 0RF famotidine 40 mg tablet 1 tab PO BEDTIME hydroxyzine pamoate 50 mg capsule 1 cap PO BID PRN (Reason: Anxiety) acetaminophen 500 mg tablet 2 tab PO Q8H ondansetron 4 mg tablet,disintegrating 1 tab PO Q8H PRN (Reason: nausea) cholecalciferol (vitamin D3) [Vitamin D3] 50 mcg (2,000 unit) tablet 1 tab PO DAILY Linzess 290 mcg capsule 1 cap PO DAILY pantoprazole 40 mg tablet,delayed release (DR/EC) 40 mg PO DAILY@0630 zolpidem 10 mg tablet 10 mg PO BEDTIME PRN (Reason: Sleep) lactulose 10 gram/15 mL solution 10 g PO DAILY ascorbate calcium (vitamin C) 500 mg tablet 500 mg PO DAILY ziprasidone HCl 20 mg capsule 20 mg PO BID quetiapine 400 mg tablet 400 mg PO BEDTIME ursodiol 300 mg capsule 300 mg PO BID simethicone 80 mg tablet,chewable 80 mg PO Q6H PRN (Reason: GAS) clonazepam 1 mg tablet 1 mg PO TID GlucaGen HypoKit 1 mg recon soln 1 mg IVPUSH ONCE PRN (Reason: hypoglycemia below 55) Qty: 1 0RF acarbose 25 mg tablet 25 mg PO TID Qty: 90 3RF Referrals: Po,Deirdre Raymundo MD [Primary Care Provider] - David Driscoll MD [Physician] - Print Language: Welsh
[2022-05-17] MEDS: Sucralfate Oral Suspension 1 GM/10 ML ORAL.SUSP PO (13:30)
[2022-05-17] MEDS: ondansetron HCL 4 MG/2 ML VIAL IVPUSH (13:30)
[2022-05-17] MEDS: Lidocaine HCl Viscous 2 % 15 ML SOLUTION 10 ML MUCOUS MEM (13:30)
[2022-05-17] MEDS: Magnesium Hydrox/Alum Hydrox 30 ML ORAL.SUSP PO (13:30)
[2022-05-17 13:44] LABS: Appearance Urine Clear; Color Urine Yellow; Glucose Urine UA Negative (Negative); Leukocyte Esterase Urine Negative (Negative); Nitrite Urine Negative (Negative); Specific Gravity - Urine 1.015 (1.005-1.025); Urine Blood Negative (Negative); Urine Ketones Negative (Negative); Urine Protein Negative (Neg-Trace)
[2022-05-17 14:58] LABS: Blood Urea Nitrogen 14 mg/dL (9-16); Estimated Glomerular Filt Rate > 60; Glucose Random 85 mg/dL (60-115)
[2022-05-17 15:07] LABS: Anion Gap 12 (12-20); Calcium 8.3 mg/dL (8.4-10.2); Carbon Dioxide 23 mmol/L (22-29); Chloride 109 mmol/L (96-108); Potassium 3.8 mmol/L (3.3-5.1); Sodium 140 mmol/L (135-145)
== END 2022-05-17 15:28 | disposition home or self-care (01) ==
PROVIDERS: Emergency Provider Student in an Organized Health Care Education/Training Program; PCP Internal Medicine
DX: R10.10 Upper abdominal pain, unspecified (principal); K59.00 Constipation, unspecified; K20.90 Esophagitis, unspecified without bleeding; Z20.822 Contact with and (suspected) exposure to COVID-19; I10 Essential (primary) hypertension; E11.9 Type 2 diabetes mellitus without complications; E78.00 Pure hypercholesterolemia, unspecified; Z98.84 Bariatric surgery status; Z79.02 Long term (current) use of antithrombotics/antiplatelets; Z79.899 Other long term (current) drug therapy
CPT/HCPCS: 36415; 74176; 80048; 80053; 81003; 82947; 83690; 85025; 87635; 96361; 96374; 99283; 99284; J2405

== ENCOUNTER → 2022-05-30 12:35 | Outpatient (BNVA) | payer OTHER, SELFPAY | PROVIDERS: PCP Internal Medicine; Visit Provider Dietitian, Registered | DX: E16.2 Hypoglycemia, unspecified (principal) | CPT/HCPCS: 97802 ==

== ENCOUNTER 2022-05-31 17:19 | Emergency (ER) | payer OTHER, SELFPAY ==
--- NOTE | ~2022-05-31 | CT_ITS ---
EXAMINATION: CT ABDOMEN AND PELVIS WITHOUT CONTRAST CLINICAL INFORMATION: Abdominal pain COMPARISON: CT abdomen pelvis 05/17/2022 TECHNIQUE: Multidetector volumetric imaging was performed from the superior aspect of the liver through the pubic symphysis. Sagittal and coronal reformatted images were obtained on the technologist's workstation. This CT examination was performed using dose optimization techniques as appropriate, variously including the following: *Automated exposure control *Adjustment of mA and/or kV according to patient size (this includes techniques or standardized protocols for targeted exams where dose is matched to indication/reason for exam; i.e. extremities or head) *Use of iterative reconstruction technique DLP: 308 mGy-cm FINDINGS: LUNG BASES: The visualized lung bases are unremarkable. LIVER, GALLBLADDER, AND BILIARY TREE: The liver is normal in size, shape, and attenuation. No focal hepatic lesion or biliary ductal dilatation is present. The gallbladder is unremarkable with no evidence of radiopaque gallstones, gallbladder wall thickening, or obvious pericholecystic inflammatory changes. PANCREAS: Unremarkable. SPLEEN: Unremarkable. ADRENAL GLANDS: Unremarkable. KIDNEYS AND URETERS: The kidneys are normal in size, shape, and attenuation. Again seen is a 2 mm punctate right lower pole calculus, unchanged from prior. No hydronephrosis, hydroureter, or other calculi seen. No perinephric stranding. BLADDER: Unremarkable. GASTROINTESTINAL TRACT: Status post gastric sleeve. Diverticular changes are present in the colon without diverticulitis. The small and large bowel are otherwise unremarkable. The appendix is unremarkable. ABDOMINAL WALL: No significant hernia is appreciated. LYMPH NODES: Normal. VASCULAR: Unremarkable. PELVIC VISCERA: Uterus is not seen. A right adnexal cystic area is present measuring 3.7 x 2.5 x 2.8 cm. This is adjacent to the bladder however I think a bladder diverticulum is much less likely. Cyst is also present in the left adnexa/ovary measuring 2.5 x 2.0 cm. No free intraperitoneal fluid is seen. OSSEOUS STRUCTURES: Some minimal degenerative changes present in the spine. CT/CT abdomen pelvis wo IV con IMPRESSION: 1. A cause for the patient's abdominal pain has not been found. 2. Incidental note made of gastric sleeve, colonic diverticulosis without diverticulitis, bilateral adnexal cysts, nonobstructing 2 mm right renal calculus, hysterectomy and minimal degenerative changes in the spine. Fleischner guidelines were followed.
[2022-05-31 18:05] VITALS: BP 103/57; PULSE 62; RESP 18; TEMP 36.2; BMI 20.1
[2022-05-31 19:34] LABS: Glucose, Whole Blood 16 mg/dL (60-115)
[2022-05-31 19:43] LABS: Glucose, Whole Blood 181 mg/dL (60-115)
[2022-05-31 19:43] LABS: Glucose, Whole Blood 30 mg/dL (60-115)
[2022-05-31 20:42] LABS: Appearance Urine Clear; Color Urine Yellow; Glucose Urine UA >=1000 mg/dL (Negative); Leukocyte Esterase Urine Negative (Negative); Nitrite Urine Negative (Negative); PH 6.5 (5.0-9.0); UMIC TRIGGER UACC YES; Urine Blood Negative (Negative); Urine Ketones Negative (Negative); Urine Protein Negative (Neg-Trace)
[2022-05-31 20:46] LABS: MANUAL DIFF FLAG NO
[2022-05-31 20:47] LABS: Basophils Percent Auto 0.6 % (0-2); Eosinophils Percent Auto 0.4 % (0-4); Hematocrit 28.4 % (37.0-47.0); Hemoglobin 9.1 g/dl (12.0-16.0); Imm Gran Abs Auto 0.01 X10*3/uL (0.00-0.03); Imm Gran Pct Auto 0.2 % (0.0-0.4); Lymphocytes Absolute Auto 1.7 X10*3/uL (1.2-4.9); Lymphocytes Percent Auto 30.7 % (20-40); Mean Corpuscular Hemoglobin 28.1 pg (27.0-33.0); Mean Corpuscular Volume 87.7 fL (80.0-98.0); Mean Platelet Volume 8.9 fL (9.4-12.3); Monocytes Absolute Auto 0.5 X10*3/uL (0.1-1.2); Monocytes Percent Auto 8.7 % (2-11); Neutrophils Absolute Auto 3.2 x10*3/uL (2.0-8.3); Neutrophils Percent Auto 59.4 % (45-73); Platelet Count 391 X10*3/uL (160-400); Red Blood Count 3.24 X10*6/uL (4.20-5.50); Red Cell Distribution Width 12.2 % (11.0-16.0); White Blood Count 5.4 X10*3/uL (4.8-10.8)
[2022-05-31 21:05] LABS: Alanine Aminotransferase 14 U/L (0-31); Albumin Level 4.2 g/dL (3.5-5.0); Alkaline Phosphatase 54 U/L (39-117); Anion Gap 10 (12-20); Aspartate Amino Transferase 14 U/L (5-31); Bilirubin Total 0.3 mg/dL (0.0-1.0); Blood Urea Nitrogen 13 mg/dL (9-16); Calcium 9.5 mg/dL (8.4-10.2); Carbon Dioxide 30 mmol/L (22-29); Chloride 103 mmol/L (96-108); Creatinine Clr Calc Pharmacy 92.5; Estimated Glomerular Filt Rate > 60; Glucose Random 127 mg/dL (60-115); Potassium 4.3 mmol/L (3.3-5.1); Sodium 139 mmol/L (135-145); Total Protein 6.3 g/dL (6.5-8.0)
[2022-05-31 21:11] LABS: RBC Urine 0-2 /HPF (0-2); WBC Urine 0-5 /HPF (0-5)
[2022-05-31 21:12] LABS: Bacteria Urine Trace (None Seen); Calcium Oxalate Crystals Urine Present; Hyaline Casts Urine 0-2 /LPF (0-2)
--- NOTE | 2022-05-31 22:09 | ED_ITS ---
HPI - General Adult General Chief complaint: General Medical Stated complaint: lower back and right leg pain fell 05/31 Time Seen by Provider: 05/31/22 22:09 Source: patient Mode of arrival: ambulatory History of Present Illness HPI narrative: 41-year-old female status post gastric bypass in September presents with worsening right lower back pain that is atraumatic in nature and she reports that it radiates down across her buttock and into the posterior aspect of her right leg. She denies any fecal or urinary incontinence, fevers or chills and denies any urinary pain/burning/frequency. Related Data Home Medications Medication Instructions Recorded Confirmed lactulose 10 gram/15 mL oral 10 g PO DAILY 08/27/20 02/22/22 solution zolpidem 10 mg tablet 10 mg PO BEDTIME PRN Sleep 08/27/20 02/22/22 ascorbate calcium (vitamin C) 500 500 mg PO DAILY 09/08/21 02/22/22 mg tablet quetiapine 50 mg tablet 1 tab PO BID 09/22/21 02/22/22 venlafaxine 150 mg 1 cap PO DAILY 09/22/21 02/22/22 capsule,extended release 24 hr clonazepam 1 mg tablet 1 mg PO TID 10/26/21 02/22/22 quetiapine 400 mg tablet 400 mg PO BEDTIME 10/26/21 02/22/22 simethicone 80 mg chewable tablet 80 mg PO Q6H PRN GAS 10/26/21 02/22/22 ursodiol 300 mg capsule 300 mg PO BID 10/26/21 02/22/22 ziprasidone HCl 20 mg capsule 20 mg PO BID 10/26/21 02/22/22 acetaminophen 500 mg tablet 2 tab PO Q8H 02/11/22 02/22/22 cholecalciferol (vitamin D3) 50 1 tab PO DAILY 02/11/22 02/22/22 mcg (2,000 unit) tablet (Vitamin D3) famotidine 40 mg tablet 1 tab PO BEDTIME 02/11/22 02/22/22 hydroxyzine pamoate 50 mg capsule 1 cap PO BID PRN Anxiety 02/11/22 02/22/22 linaclotide 290 mcg capsule 1 cap PO DAILY 02/11/22 02/22/22 (Linzess) ondansetron 4 mg disintegrating 1 tab PO Q8H PRN nausea 02/11/22 02/22/22 tablet pantoprazole 40 mg tablet,delayed 40 mg PO DAILY@0630 02/11/22 02/22/22 release Previous Rx's Medication Instructions Recorded vitamin B complex (B 1 tab PO DAILY #30 tabs 07/13/21 Complex-Vitamin B12 tablet) blood pressure monitor (Blood #1 ea 10/31/21 Pressure Kit) blood-glucose meter (FreeStyle #1 ea 10/31/21 Lite Meter kit) lancets 28 gauge (FreeStyle #100 ea 10/31/21 Lancets) atorvastatin 20 mg tablet 20 mg PO DAILY #90 tabs 01/27/22 BATH CHAIR #1 ea 01/31/22 CANE #1 ea 01/31/22 LIFELINE ALERT SYSTEM #1 ea 01/31/22 WRIST BRACE #1 ea 01/31/22 ALCOHOL PADS #100 ea 02/21/22 sucralfate 1 gram tablet 1 g PO BID #180 tabs 02/21/22 cyclobenzaprine 10 mg tablet 10 mg PO TID #10 tabs 03/06/22 ENSURE once a day #90 ea 03/09/22 glucagon 1 mg solution for 1 mg IVPUSH ONCE PRN hypoglycemia 03/09/22 injection (GlucaGen HypoKit) below 55 #1 ea lidocaine 5 % topical patch 1 patch topical DAILY 30 days #30 03/09/22 (Lidoderm) ea diphenhydramine HCl 25 mg capsule 25 mg PO BEDTIME PRN sleep #90 caps 03/10/22 (Benadryl) cefuroxime axetil 500 mg tablet 500 mg PO BID 10 days #20 tabs 04/02/22 codeine 10 mg-guaifenesin 100 mg/5 10 ml PO Q6H PRN cough #237 mL 04/02/22 mL oral liquid tramadol 50 mg tablet 50 mg PO Q6H PRN pain 30 days #60 04/10/22 tabs acarbose 25 mg tablet 25 mg PO TID #90 tabs 04/13/22 oxycodone 5 mg tablet 5 mg PO Q6H PRN pain #14 tabs 04/25/22 terconazole 0.8 % vaginal cream 1 appful vaginal BEDTIME 04/25/22 Candidiasis vaginitis 3 days #20 grams blood sugar diagnostic (FreeStyle #100 ea 05/01/22 Lite Strips) tramadol 50 mg tablet 50 mg PO BID PRN pain #10 tabs 05/03/22 nitrofurantoin 100 mg PO BID 5 days #10 caps 05/09/22 monohydrate/macrocrystals 100 mg capsule (Macrobid) sucralfate 100 mg/mL oral 10 ml PO BID #420 mL 05/17/22 suspension (Carafate) polyethylene glycol 3350 17 gram 17 g PO DAILY #30 ea 05/22/22 oral powder packet (Miralax) ROLLATOR #1 ea 05/23/22 dicyclomine 20 mg tablet 20 mg PO BID #60 tabs 05/23/22 food supplemt, lactose-reduced 1 ea PO TID 30 days #5,688 mL 05/23/22 (Ensure High Protein oral liquid) WRIST SPLINT Right and Left hand #1 ea 05/30/22 cyclobenzaprine 5 mg tablet 5 mg PO BEDTIME PRN muscle spasm 05/31/22 #3 tabs Allergies Allergy/AdvReac Type Severity Reaction Status Date / Time tomato [TOMATO] Allergy Mild HIVES Verified 05/17/22 09:27 DIFFICULTY BREATHING hydrocodone [HYDROCODONE] Allergy Unknown RASH, Verified 05/17/22 09:27 AIRWAY CLOSES ibuprofen [From MOTRIN] Allergy Unknown STOMACH Verified 05/17/22 09:27 UPSET, vomiting trazodone [TRAZODONE] Allergy Unknown UNKNOWN, Verified 05/17/22 09:27 stomach upset black pepper [BLACK PEPPER] AdvReac Severe DIFFICULTY Verified 05/17/22 09:27 BREATHING, hives Review of Systems Review of Systems: Pertinent positives and negatives as stated in HPI 10 point review of systems is otherwise negative. 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 Diverticulosis GERD (gastroesophageal reflux disease) History of bipolar disorder History of schizophrenia Hypercholesterolemia Hypertension Insomnia Numbness of left hand Renal calculi Spondylosis of lumbar spine Type 2 diabetes mellitus with hyperglycemia Vitamin D deficiency Surgical History H/O: hysterectomy History of tubal ligation Hx of bariatric surgery Family History Family History Father Medical history unknown Mother Medical history unknown Paternal Aunt Uterine cancer Diabetes Hypertension Paternal Uncle Liver cancer Heart attack Maternal Aunt Stroke Family/Other Chronic mental illness Sister Uterine cancer Schizophrenia Brother Substance abuse Other Mental health disorder Social History Social History Household Members: None Housing: Apartment Do you presently have visiting nurse or other home services: Yes Alcohol intake: never Patient Tobacco Use Status: Never used Tobacco e-Cigarette/Vaping Use: Never Used Second Hand Smoke Exposure: No Advance Directives: No service: No Current occupational status: disabled Current occupational exposures/hazards: No Cognitive needs: No Hearing needs: No Vision needs: No Physical Exam ED Vital Signs: Vital Signs - 24 hr 05/31/22 18:05 Temperature 97.1 F Pulse Rate 62 Respiratory Rate 18 Blood Pressure 103/57 L Oxygen Delivery Method Room Air BMI result Body Mass Index 20.1 VITAL SIGNS: Reviewed. GENERAL: Well developed, well nourished, in no acute distress. HEAD: Normocephalic/atraumatic EYES: PERRLA, EOMI EARS: Ext canals without abnormality OROPHARYNX: no oral lesions noted, posterior pharynx clear LUNGS: Normal breath sounds. No adventitious sounds or accessory muscle use. CARDIOVASCULAR: Regular rate and rhythm without noted murmurs ABDOMEN: Soft, non-tender, non-distended with bowel sounds. BACK: No midline vertebral tenderness, step-offs there is pain noted to the right paraspinal extending over the right gluteus, straight leg negative, palpa ble pulses MUSCULOSKELETAL: No tenderness, deformities, or effusions noted on gross inspection. EXTREMITIES: No cyanosis, clubbing or edema. SKIN: Inspection of the skin reveals no rashes NEUROLOGIC: Alert and oriented x 4. Strength and sensation to light touch were grossly intact x 4. Course Course Course Narrative: 41-year-old female with history and clinical presentation most consistent with lumbar radiculopathy and lower clinical suspicion for sciatica no concern for cauda equina and on review of all investigations to include CT scan no evidence of renal colic or acute intra-abdominal infection. Patient is discharged home in stable condition. Medical Decision Making Lab Data Result diagrams: 05/31/22 20:41 05/31/22 20:41 Labs: Lab Results 05/31/22 05/31/22 05/31/22 Range/Units 18:58 19:03 19:39 WBC (4.8-10.8) X10*3/uL RBC (4.20-5.50) X10*6/uL Hgb (12.0-16.0) g/dl Hct (37.0-47.0) % MCV (80.0-98.0) fL MCH (27.0-33.0) pg MCHC (31.0-35.0) g/dl RDW (11.0-16.0) % Plt Count (160-400) X10*3/uL MPV (9.4-12.3) fL Immature Gran % (Auto) (0.0-0.4) % Neut % (Auto) (45-73) % Lymph % (Auto) (20-40) % [place] % (Auto) (2-11) % Eos % (Auto) (0-4) % Baso % (Auto) (0-2) % Lymph # (Auto) (1.2-4.9) X10*3/uL [place] # (Auto) (0.1-1.2) X10*3/uL Eos # (Auto) (0.0-0.4) X10*3/uL Baso # (Auto) (0.0-0.2) X10*3/uL Abs Immat Gran (auto) (0.00-0.03) X10*3/uL Absolute Neuts (auto) (2.0-8.3) x10*3/uL Absolute Nucleated RBC (0.0-0.012) X10*3/uL Nucleated RBC % (auto) (0.0-0.2) /100WBC Sodium (135-145) mmol/L Potassium (3.3-5.1) mmol/L Chloride (96-108) mmol/L Carbon Dioxide (22-29) mmol/L Anion Gap (12-20) BUN (9-16) mg/dL Creatinine (0.5-1.4) mg/dL Estim Creat Clear Calc Estimated GFR POC Glucose 16 L* 30 L* 181 H (60-115) mg/dL Random Glucose (60-115) mg/dL Calcium (8.4-10.2) mg/dL Total Bilirubin (0.0-1.0) mg/dL AST (5-31) U/L ALT (0-31) U/L Alkaline Phosphatase (39-117) U/L Total Protein (6.5-8.0) g/dL Albumin (3.5-5.0) g/dL Urine Color Urine Appearance Urine pH (5.0-9.0) Ur Specific [place] (1.005-1.025) Urine Protein (Neg-Trace) mg/dL Urine Glucose (UA) (Negative) mg/dL Urine Ketones (Negative) mg/dL Urine Blood (Negative) Urine Nitrite (Negative) Ur Leukocyte Esterase (Negative) Urine RBC (0-2) /HPF Urine WBC (0-5) /HPF Ur Squamous Epith Cells (0-2) /HPF Calcium Oxalate Crystal Urine Bacteria (None Seen) Hyaline Casts (0-2) /LPF 05/31/22 05/31/22 05/31/22 Range/Units 20:33 20:41 20:41 WBC 5.4 (4.8-10.8) X10*3/uL RBC 3.24 L (4.20-5.50) X10*6/uL Hgb 9.1 L (12.0-16.0) g/dl Hct 28.4 L (37.0-47.0) % MCV 87.7 (80.0-98.0) fL MCH 28.1 (27.0-33.0) pg MCHC 32.0 (31.0-35.0) g/dl RDW 12.2 (11.0-16.0) % Plt Count 391 (160-400) X10*3/uL MPV 8.9 L (9.4-12.3) fL Immature Gran % (Auto) 0.2 (0.0-0.4) % Neut % (Auto) 59.4 (45-73) % Lymph % (Auto) 30.7 (20-40) % [place] % (Auto) 8.7 (2-11) % Eos % (Auto) 0.4 (0-4) % Baso % (Auto) 0.6 (0-2) % Lymph # (Auto) 1.7 (1.2-4.9) X10*3/uL [place] # (Auto) 0.5 (0.1-1.2) X10*3/uL Eos # (Auto) 0.0 (0.0-0.4) X10*3/uL Baso # (Auto) 0.0 (0.0-0.2) X10*3/uL Abs Immat Gran (auto) 0.01 (0.00-0.03) X10*3/uL Absolute Neuts (auto) 3.2 (2.0-8.3) x10*3/uL Absolute Nucleated RBC 0.000 (0.0-0.012) X10*3/uL Nucleated RBC % (auto) 0.0 (0.0-0.2) /100WBC Sodium 139 (135-145) mmol/L Potassium 4.3 (3.3-5.1) mmol/L Chloride 103 (96-108) mmol/L Carbon Dioxide 30 H (22-29) mmol/L Anion Gap 10 L (12-20) BUN 13 (9-16) mg/dL Creatinine 0.63 (0.5-1.4) mg/dL Estim Creat Clear Calc 92.5 Estimated GFR > 60 POC Glucose (60-115) mg/dL Random Glucose 127 H (60-115) mg/dL Calcium 9.5 D (8.4-10.2) mg/dL Total Bilirubin 0.3 (0.0-1.0) mg/dL AST 14 (5-31) U/L ALT 14 (0-31) U/L Alkaline Phosphatase 54 (39-117) U/L Total Protein 6.3 L (6.5-8.0) g/dL Albumin 4.2 (3.5-5.0) g/dL Urine Color Yellow Urine Appearance Clear Urine pH 6.5 (5.0-9.0) Ur Specific [place] 1.020 (1.005-1.025) Urine Protein Negative (Neg-Trace) mg/dL Urine Glucose (UA) >=1000 H (Negative) mg/dL Urine Ketones Negative (Negative) mg/dL Urine Blood Negative (Negative) Urine Nitrite Negative (Negative) Ur Leukocyte Esterase Negative (Negative) Urine RBC 0-2 (0-2) /HPF Urine WBC 0-5 (0-5) /HPF Ur Squamous Epith Cells 3-5 (0-2) /HPF Calcium Oxalate Crystal Present Urine Bacteria Trace (None Seen) Hyaline Casts 0-2 (0-2) /LPF Discharge Plan Discharge Clinical Impression: Lumbar radicular pain Patient Disposition: Home, Self-Care Instructions: Lumbar Radiculopathy (ED), Lower Back Exercises (ED) Additional Instructions: 1. Stop taking all diabetic medication. 2. Please follow-up with your primary care provider in the next 1-2 days for re- evaluation and further outpatient management. 3. Tylenol 1000 mg, orally, every 6 hours as needed for pain control. Do not exceed 4000 mg within 24 hours. 4. Lidocaine patch, apply to area of maximal tenderness as directed on the outside packaging. 5. Would recommend that you discuss with your primary care provider a referral for physical therapy as this may provide you with additional help. Return to the ER for worsening symptoms. Prescriptions: New cyclobenzaprine 5 mg tablet 5 mg PO BEDTIME PRN (Reason: muscle spasm) Qty: 3 0RF No Action vitamin B complex [B Complex-Vitamin B12] Tablet 1 tab PO DAILY Qty: 30 6RF Rx Instructions: 1,000mcg dose daily (DME) blood pressure monitor [Blood Pressure Kit] Kit See Rx Instructions .Route Qty: 1 0RF Rx Instructions: As directed (DME) blood-glucose meter [FreeStyle Lite Meter] Kit See Rx Instructions .ROUTE .MEDSUPPLY Qty: 1 0RF Rx Instructions: As directed (DME) lancets [FreeStyle Lancets] 28 gauge misc See Rx Instructions .ROUTE .MEDSUPPLY Qty: 100 3RF Rx Instructions: As directed check BS QD atorvastatin 20 mg tablet 20 mg PO DAILY Qty: 90 3RF (DME) CANE See Rx Instructions .Route .MEDSUPPLY Qty: 1 0RF Rx Instructions: As directed (DME) WRIST BRACE See Rx Instructions .Route .MEDSUPPLY Qty: 1 0RF Rx Instructions: As directed (DME) BATH CHAIR See Rx Instructions .Route .MEDSUPPLY Qty: 1 0RF Rx Instructions: As directed (DME) LIFELINE ALERT SYSTEM See Rx Instructions .Route .MEDSUPPLY Qty: 1 0RF Rx Instructions: As directed (DME) ALCOHOL PADS See Rx Instructions .Route .MEDSUPPLY Qty: 100 3RF Rx Instructions: As directed sucralfate 1 gram tablet 1 g PO BID Qty: 180 3RF lidocaine [Lidoderm] 5 % adhesive patch,medicated 1 patch topical DAILY 30 Days Qty: 30 3RF Rx Instructions: leave on most painful area for up to 12 hrs (DME) ENSURE once a day See Rx Instructions .Route .MEDSUPPLY Qty: 90 0RF Rx Instructions: As directed diphenhydramine HCl [Benadryl] 25 mg capsule 25 mg PO BEDTIME PRN (Reason: sleep) Qty: 90 2RF tramadol 50 mg tablet 50 mg PO Q6H PRN (Reason: pain) 30 Days Qty: 60 0RF (DME) FreeStyle Lite Strips Strip See Rx Instructions .ROUTE .MEDSUPPLY Qty: 100 3RF Rx Instructions: As directed check QID nitrofurantoin monohyd/m-cryst [Macrobid] 100 mg capsule 100 mg PO BID 5 Days Qty: 10 0RF polyethylene glycol 3350 [Miralax] 17 gram powder in packet 17 g PO DAILY Qty: 30 5RF (DME) ROLLATOR See Rx Instructions .Route .MEDSUPPLY Qty: 1 0RF Rx Instructions: As directed Ensure High Protein Liquid 1 ea PO TID 30 Days Qty: 5688 0RF dicyclomine 20 mg tablet 20 mg PO BID Qty: 60 0RF (DME) WRIST SPLINT Right and Left hand See Rx Instructions .Route .MEDSUPPLY Qty: 1 0RF Rx Instructions: As directed venlafaxine 150 mg capsule,extended release 24hr 1 cap PO DAILY quetiapine 50 mg tablet 1 tab PO BID cyclobenzaprine 10 mg tablet 10 mg PO TID Qty: 10 0RF cefuroxime axetil 500 mg tablet 500 mg PO BID 10 Days Qty: 20 0RF codeine-guaifenesin 10-100 mg/5 mL liquid 10 ml PO Q6H PRN (Reason: cough) Qty: 237 0RF terconazole 0.8 % cream 1 appful vaginal BEDTIME 3 Days Qty: 20 0RF oxycodone 5 mg tablet 5 mg PO Q6H PRN (Reason: pain) Qty: 14 0RF Rx Instructions: Partial Fill upon patient request. tramadol 50 mg tablet 50 mg PO BID PRN (Reason: pain) Qty: 10 0RF sucralfate [Carafate] 100 mg/mL suspension 10 ml PO BID Qty: 420 0RF famotidine 40 mg tablet 1 tab PO BEDTIME hydroxyzine pamoate 50 mg capsule 1 cap PO BID PRN (Reason: Anxiety) acetaminophen 500 mg tablet 2 tab PO Q8H ondansetron 4 mg tablet,disintegrating 1 tab PO Q8H PRN (Reason: nausea) cholecalciferol (vitamin D3) [Vitamin D3] 50 mcg (2,000 unit) tablet 1 tab PO DAILY Linzess 290 mcg capsule 1 cap PO DAILY pantoprazole 40 mg tablet,delayed release (DR/EC) 40 mg PO DAILY@0630 zolpidem 10 mg tablet 10 mg PO BEDTIME PRN (Reason: Sleep) lactulose 10 gram/15 mL solution 10 g PO DAILY ascorbate calcium (vitamin C) 500 mg tablet 500 mg PO DAILY ziprasidone HCl 20 mg capsule 20 mg PO BID quetiapine 400 mg tablet 400 mg PO BEDTIME ursodiol 300 mg capsule 300 mg PO BID simethicone 80 mg tablet,chewable 80 mg PO Q6H PRN (Reason: GAS) clonazepam 1 mg tablet 1 mg PO TID GlucaGen HypoKit 1 mg recon soln 1 mg IVPUSH ONCE PRN (Reason: hypoglycemia below 55) Qty: 1 0RF acarbose 25 mg tablet 25 mg PO TID Qty: 90 3RF Referrals: Po,Deirdre Raymundo MD [Primary Care Provider] -
[2022-05-31] MEDS: Acetaminophen 325 MG TABLET 975 MG PO (22:30)
[2022-05-31] MEDS: Lidocaine 4 % Patch ADH..PATCH 1 PATCH TRANSDERMA (22:30)
[2022-05-31 23:38] LABS: COVID-19 Test Negative (Negative)
[2022-06-01 00:51] LABS: Glucose, Whole Blood 150 mg/dL (60-115)
== END 2022-05-31 23:40 | disposition home or self-care (01) ==
PROVIDERS: Emergency Provider Student in an Organized Health Care Education/Training Program; PCP Internal Medicine
DX: M54.50 Low back pain, unspecified (principal); M79.604 Pain in right leg; Z20.822 Contact with and (suspected) exposure to COVID-19; Z79.899 Other long term (current) drug therapy
CPT/HCPCS: 36415; 74176; 80053; 81001; 82947; 85025; 87635; 99283; 99284

== ENCOUNTER 2022-06-08 11:04 | Outpatient (REF) | payer OTHER, SELFPAY ==
--- NOTE | ~2022-06-08 | US_ITS ---
EXAMINATION: US PELVIS CLINICAL INFORMATION: Pelvic and perineal pain. COMPARISON: CT abdomen and pelvis 05/31/2022 TECHNIQUE: Ultrasound of the pelvis is performed using both transabdominal and transvaginal transducers along with Doppler. Transvaginal imaging is performed due to inadequate visualization transabdominally. FINDINGS: Uterus: The uterus is not seen. Adnexa: Both ovaries are visualized. There is normal color flow to the adnexa. There is no ovarian torsion. There is no pelvic ascites or fluid collection. Right ovary measures 4.0 x 2.7 x 2.5 cm for a 14.1 mL which includes a complex 2.3 x 1.6 x 1.6 cm cyst. This cyst has echogenic contents with possibly a single septation. Left ovary measures 3.4 x 1.8 x 1.5 cm for a volume of 4.8 mL which includes two (2) cysts measuring 1.2 x 1.3 x 1.1 cm and 1.2 x 0.6 x 0.8 cm. US/US pelvic and transvaginal IMPRESSION: Bilateral ovarian cysts. No follow-up is needed. Bilateral ovarian cysts, complex on the right. Given the size, no further follow-up should be needed.
== END 2022-06-08 11:05 | disposition home or self-care (01) ==
LOC: HO.US 11:04
PROVIDERS: Visit Provider Obstetrics & Gynecology
DX: R10.2 Pelvic and perineal pain (principal)
CPT/HCPCS: 76830; 76856

== ENCOUNTER 2022-06-10 11:13 | Emergency (ER) | payer OTHER, SELFPAY ==
[2022-06-10 11:23] VITALS: BP 102/61; PULSE 74; RESP 16; TEMP 36.2; BMI 20.8
[2022-06-10 11:47] LABS: MANUAL DIFF FLAG NO
[2022-06-10 11:53] LABS: Basophils Percent Auto 0.6 % (0-2); Eosinophils Absolute Auto 0.1 X10*3/uL (0.0-0.4); Eosinophils Percent Auto 1.4 % (0-4); Hematocrit 30.6 % (37.0-47.0); Hemoglobin 9.5 g/dl (12.0-16.0); Imm Gran Abs Auto 0.01 X10*3/uL (0.00-0.03); Imm Gran Pct Auto 0.2 % (0.0-0.4); Lymphocytes Absolute Auto 1.8 X10*3/uL (1.2-4.9); Lymphocytes Percent Auto 36.4 % (20-40); Mean Corpuscular Hemoglobin 26.6 pg (27.0-33.0); Mean Corpuscular Volume 85.7 fL (80.0-98.0); Mean Platelet Volume 9.4 fL (9.4-12.3); Monocytes Absolute Auto 0.4 X10*3/uL (0.1-1.2); Monocytes Percent Auto 8.8 % (2-11); Neutrophils Absolute Auto 2.6 x10*3/uL (2.0-8.3); Neutrophils Percent Auto 52.6 % (45-73); Platelet Count 481 X10*3/uL (160-400); Red Blood Count 3.57 X10*6/uL (4.20-5.50); Red Cell Distribution Width 12.6 % (11.0-16.0); White Blood Count 4.9 X10*3/uL (4.8-10.8)
[2022-06-10 12:05] LABS: Alanine Aminotransferase 14 U/L (0-31); Albumin Level 4.2 g/dL (3.5-5.0); Alkaline Phosphatase 60 U/L (39-117); Anion Gap 15 (12-20); Aspartate Amino Transferase 13 U/L (5-31); Bilirubin Total 0.3 mg/dL (0.0-1.0); Blood Urea Nitrogen 14 mg/dL (9-16); Calcium 9.1 mg/dL (8.4-10.2); Carbon Dioxide 24 mmol/L (22-29); Chloride 106 mmol/L (96-108); Estimated Glomerular Filt Rate > 60; Glucose Random 92 mg/dL (60-115); Lipase 22 U/L (8-78); Potassium 4.6 mmol/L (3.3-5.1); Sodium 140 mmol/L (135-145); Total Protein 6.7 g/dL (6.5-8.0)
[2022-06-10 12:10] LABS: Appearance Urine Clear; Color Urine Yellow; Glucose Urine UA Negative (Negative); Leukocyte Esterase Urine Large (3+) (Negative); Nitrite Urine Negative (Negative); PH 6.5 (5.0-9.0); UMIC TRIGGER UACC YES; Urine Blood Trace (Negative); Urine Ketones Negative (Negative); Urine Protein 30 (1+) mg/dL (Neg-Trace)
[2022-06-10 12:13] LABS: Bacteria Urine 4+ (None Seen); Hyaline Casts Urine 0-2 /LPF (0-2); Squamous Epithelial Cell Urine >20 /HPF (0-2); UACC Culture Trigger YES; WBC Urine >50 /HPF (0-5)
--- NOTE | 2022-06-10 13:50 | ED.NAVMDI ---
HPI - Nausea/Vomiting/Diarrhea General Chief complaint: Nausea/Vomiting/Diarrhea Stated complaint: Abd pain/Nausea Time Seen by Provider: 06/10/22 13:50 Source: patient Mode of arrival: ambulatory Limitations: no limitations History of Present Illness HPI Narrative: 41 yo female with history of gastric sleeve at [facility] 10/19/2021 complicated by post-op malabsorption and hypoglycemia, GERD, HTN, HLD, bipolar disorder, low back pain, diverticulosis, Presents to the ER with multiple complaints. She reports worsening left-sided abdominal pain, difficulty swallowing with increased slime production. reports difficulty swallowing solid foods for a while now and worsening difficulty of swallowing liquids as of recently. She reports having a modified barium swallow as well as an EGD. She follows up with her bariatric surgeon in 3 days. She has been seen here in the ER for several of these complaints multiple times. Of note patient also was dealing with incontinence issues and recently had a urologic procedure. She denies any dysuria but has urgency and frequency. No fever or chills. She denies any nausea or vomiting. MD elicited complaint: abdominal pain Onset (ago): month(s) Description of vomiting: watery Associated nausea: Yes Associated abdominal pain: Yes Location of pain: LUQ Pain consistency: intermittent Severity: moderate Quality: aching Exacerbating factors: eating Relieving factors: none Context: history of abdominal surgery Associated symptoms: loss of appetite, malaise, nausea/vomiting, weakness and anxiety Related Data Home Medications Medication Instructions Recorded Confirmed lactulose 10 gram/15 mL oral 10 g PO DAILY 08/27/20 02/22/22 solution zolpidem 10 mg tablet 10 mg PO BEDTIME PRN Sleep 08/27/20 02/22/22 ascorbate calcium (vitamin C) 500 500 mg PO DAILY 09/08/21 02/22/22 mg tablet quetiapine 50 mg tablet 1 tab PO BID 09/22/21 02/22/22 venlafaxine 150 mg 1 cap PO DAILY 09/22/21 02/22/22 capsule,extended release 24 hr clonazepam 1 mg tablet 1 mg PO TID 10/26/21 02/22/22 quetiapine 400 mg tablet 400 mg PO BEDTIME 10/26/21 02/22/22 simethicone 80 mg chewable tablet 80 mg PO Q6H PRN GAS 10/26/21 02/22/22 ursodiol 300 mg capsule 300 mg PO BID 10/26/21 02/22/22 ziprasidone HCl 20 mg capsule 20 mg PO BID 10/26/21 02/22/22 acetaminophen 500 mg tablet 2 tab PO Q8H 02/11/22 02/22/22 cholecalciferol (vitamin D3) 50 1 tab PO DAILY 02/11/22 02/22/22 mcg (2,000 unit) tablet (Vitamin D3) famotidine 40 mg tablet 1 tab PO BEDTIME 02/11/22 02/22/22 hydroxyzine pamoate 50 mg capsule 1 cap PO BID PRN Anxiety 02/11/22 02/22/22 linaclotide 290 mcg capsule 1 cap PO DAILY 02/11/22 02/22/22 (Linzess) ondansetron 4 mg disintegrating 1 tab PO Q8H PRN nausea 02/11/22 02/22/22 tablet pantoprazole 40 mg tablet,delayed 40 mg PO DAILY@0630 02/11/22 02/22/22 release Previous Rx's Medication Instructions Recorded vitamin B complex (B 1 tab PO DAILY #30 tabs 07/13/21 Complex-Vitamin B12 tablet) blood pressure monitor (Blood #1 atif 10/31/21 Pressure Kit) blood-glucose meter (FreeStyle #1 atif 10/31/21 Lite Meter kit) lancets 28 gauge (FreeStyle #100 ea 10/31/21 Lancets) atorvastatin 20 mg tablet 20 mg PO DAILY #90 tabs 01/27/22 BATH CHAIR #1 ea 01/31/22 CANE #1 ea 01/31/22 LIFELINE ALERT SYSTEM #1 atif 01/31/22 WRIST BRACE #1 ea 01/31/22 ALCOHOL PADS #100 ea 02/21/22 sucralfate 1 gram tablet 1 g PO BID #180 tabs 02/21/22 glucagon 1 mg solution for 1 mg IVPUSH ONCE PRN hypoglycemia 03/09/22 injection (GlucaGen HypoKit) below 55 #1 ea lidocaine 5 % topical patch 1 patch topical DAILY 30 days #30 03/09/22 (Lidoderm) ea diphenhydramine HCl 25 mg capsule 25 mg PO BEDTIME PRN sleep #90 caps 03/10/22 (Benadryl) cefuroxime axetil 500 mg tablet 500 mg PO BID 10 days #20 tabs 04/02/22 codeine 10 mg-guaifenesin 100 mg/5 10 ml PO Q6H PRN cough #237 mL 04/02/22 mL oral liquid tramadol 50 mg tablet 50 mg PO Q6H PRN pain 30 days #60 04/10/22 tabs acarbose 25 mg tablet 25 mg PO TID #90 tabs 04/13/22 oxycodone 5 mg tablet 5 mg PO Q6H PRN pain #14 tabs 04/25/22 terconazole 0.8 % vaginal cream 1 appful vaginal BEDTIME 04/25/22 Candidiasis vaginitis 3 days #20 grams blood sugar diagnostic (FreeStyle #100 ea 05/01/22 Lite Strips) tramadol 50 mg tablet 50 mg PO BID PRN pain #10 tabs 05/03/22 nitrofurantoin 100 mg PO BID 5 days #10 caps 05/09/22 monohydrate/macrocrystals 100 mg capsule (Macrobid) sucralfate 100 mg/mL oral 10 ml PO BID #420 mL 05/17/22 suspension (Carafate) polyethylene glycol 3350 17 gram 17 g PO DAILY #30 ea 05/22/22 oral powder packet (Miralax) ROLLATOR #1 ea 05/23/22 dicyclomine 20 mg tablet 20 mg PO BID #60 tabs 05/23/22 food supplemt, lactose-reduced 1 ea PO TID 30 days #5,688 mL 05/23/22 (Ensure High Protein oral liquid) WRIST SPLINT Right and Left hand #1 ea 05/30/22 cyclobenzaprine 5 mg tablet 5 mg PO BEDTIME PRN muscle spasm 06/01/22 15 days #45 tabs ENSURE once a day #90 ea 06/08/22 SHOWER BAR #1 ea 06/08/22 SHOWER WAND #1 ea 06/08/22 levofloxacin 250 mg/10 mL oral 500 mg (20 mL) PO DAILY 5 days 06/10/22 solution #100 mL ondansetron 4 mg disintegrating 4 mg PO Q8H PRN nausea and 06/10/22 tablet vomiting #10 tabs Allergies Allergy/AdvReac Type Severity Reaction Status Date / Time tomato [TOMATO] Allergy Mild HIVES Verified 05/17/22 09:27 DIFFICULTY BREATHING hydrocodone [HYDROCODONE] Allergy Unknown RASH, Verified 05/17/22 09:27 AIRWAY CLOSES ibuprofen [From MOTRIN] Allergy Unknown STOMACH Verified 05/17/22 09:27 UPSET, vomiting trazodone [TRAZODONE] Allergy Unknown UNKNOWN, Verified 05/17/22 09:27 stomach upset black pepper [BLACK PEPPER] AdvReac Severe DIFFICULTY Verified 05/17/22 09:27 BREATHING, hives Review of Systems Review of Systems: Constitutional: No Fever, No Chills ENT/Mouth: No sore throat, No Rhinorrhea, + Swallowing Difficulty Cardiovascular: No Chest Pain, No SOB, No Orthopnea, No Edema Respiratory: No Cough, No Sputum, No Wheezing, No dyspnea Gastrointestinal: + Nausea, No Vomiting, No Diarrhea, + abdominal Pain, No Hematochezia, No Melena Genitourinary: No Dysuria, + Urinary Frequency, No Hematuria Musculoskeletal: No joint pain, No Myalgias Skin: No Skin Lesions, No rash Neuro: + Weakness, No Numbness, No Dizziness, No Headache Psych: +Anxiety/Panic, + Depression Heme/Lymph: No Bruising, No Lymphadenopathy Endocrine: No Polyuria, No Polydipsia Gastrointestinal: Gastrointestinal: Reports nausea PMFSH Past Medical History 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 Diverticulosis GERD (gastroesophageal reflux disease) History of bipolar disorder History of schizophrenia Hypercholesterolemia Hypertension Insomnia Numbness of left hand Renal calculi Spondylosis of lumbar spine Type 2 diabetes mellitus with hyperglycemia Vitamin D deficiency Surgical History H/O: hysterectomy History of tubal ligation Hx of bariatric surgery Family History Family History Father Medical history unknown Mother Medical history unknown Paternal Aunt Uterine cancer Diabetes Hypertension Paternal Uncle Liver cancer Heart attack Maternal Aunt Stroke Family/Other Chronic mental illness Sister Uterine cancer Schizophrenia Brother Substance abuse Other Mental health disorder Social History Social History Household Members: None Housing: Apartment Do you presently have visiting nurse or other home services: Yes Alcohol intake: never Patient Tobacco Use Status: Never used Tobacco e-Cigarette/Vaping Use: Never Used Second Hand Smoke Exposure: No Advance Directives: No Advance Directives Information Provided: Yes service: No Current occupational status: disabled Current occupational exposures/hazards: No Cognitive needs: No Hearing needs: No Vision needs: No Physical Exam Vital Signs: Vital Signs: Last Vital Signs Temp 97.2 F 06/10/22 11:23 Pulse 86 06/10/22 15:35 Resp 16 06/10/22 11:23 BP 96/40 L 06/10/22 15:35 Pulse Ox 97 06/10/22 15:35 O2 Del Method 06/10/22 11:23 BMI result Body Mass Index 20.8 Appearance: Alert. Oriented X3. Tearful Eyes: Pupils equal, round and reactive to light. ENT: Pharynx normal. moist mucous membranes. Neck: Normal inspection. Neck supple. CVS: Normal heart rate and rhythm. Pulses normal. Respiratory: No respiratory distress. Breath sounds normal. Abdomen: Soft left upper quadrant tenderness to deep palpation only. Without rebound or guarding. Normal+BS x4 Skin: Skin warm and dry. Normal skin color. Normal skin turgor. No rashes. Extremities: No lower extremity edema. Neuro: Oriented X 3. No motor deficit. No sensory deficit. Course Course Course Narrative: 41-year-old female with a history of gastric sleeve in September with multiple postop complications who presents to the ER for evaluation of difficulty swallowing, abdominal pain, weakness. She was recently seen here and had a CT scan on 05/31 Which was unremarkable. She reports increased phlegm and sputum production with difficulty swallowing solids, progressing to liquids as of recent. Lab workup done in triage is unremarkable. She did have a urinalysis done which is indicative of infection. This is common after urologic procedure and instrumentation. She has some mild symptoms. She is not septic at this time. Reevaluation(s) Reevaluation #1: Glucose is 58, she is asymptomatic. Given oral fluids and tolerating juice and crackers. She would also tolerated oral Levaquin. Unfortunately patient's symptoms are chronic and there is not much that can be done here in the emergency department. She is tolerating p.o. without any evidence of esophageal obstruction. She has an outpatient GI provider, PCP and bariatric surgeon who she follows with closely. She sees her bariatric surgeon 3 days. At this time comfortable with discharge home with oral antibiotics for her UTI. Patient agrees with plan. All questions were answered. Reevaluation #2: Repeat glucose 78. Stable for DC. Medications Administered Discontinued Medications Generic Name Dose Route Start Last Admin Trade Name Freq PRN Reason Stop Dose Admin Sodium Chloride 1,000 mls @ 999 mls/hr 06/10/22 14:15 06/10/22 15:34 Ns IVCONT 06/10/22 15:15 Not Given .Q1H1M OSBALDO Levofloxacin 500 mg 06/10/22 15:28 06/10/22 15:34 Levofloxacin 500 Mg Tablet PO 06/10/22 15:29 500 mg ONCE ONE Administration Ondansetron HCl 4 mg 06/10/22 15:28 06/10/22 15:34 Ondansetron Odt 4 Mg Tab.Rapdis TRANSLINGU 06/10/22 15:29 4 mg ONCE ONE Administration MDM - Nausea/Vomiting/Diarrhea Lab Data Result diagrams: 06/10/22 11:44 06/10/22 11:44 Labs: Lab Results 06/10/22 06/10/22 06/10/22 Range/Units 11:44 11:44 11:56 WBC 4.9 (4.8-10.8) X10*3/uL RBC 3.57 L (4.20-5.50) X10*6/uL Hgb 9.5 L (12.0-16.0) g/dl Hct 30.6 L (37.0-47.0) % MCV 85.7 (80.0-98.0) fL MCH 26.6 L (27.0-33.0) pg MCHC 31.0 (31.0-35.0) g/dl RDW 12.6 (11.0-16.0) % Plt Count 481 H (160-400) X10*3/uL MPV 9.4 (9.4-12.3) fL Immature Gran % (Auto) 0.2 (0.0-0.4) % Neut % (Auto) 52.6 (45-73) % Lymph % (Auto) 36.4 (20-40) % [place] % (Auto) 8.8 (2-11) % Eos % (Auto) 1.4 (0-4) % Baso % (Auto) 0.6 (0-2) % Lymph # (Auto) 1.8 (1.2-4.9) X10*3/uL [place] # (Auto) 0.4 (0.1-1.2) X10*3/uL Eos # (Auto) 0.1 (0.0-0.4) X10*3/uL Baso # (Auto) 0.0 (0.0-0.2) X10*3/uL Abs Immat Gran (auto) 0.01 (0.00-0.03) X10*3/uL Absolute Neuts (auto) 2.6 (2.0-8.3) x10*3/uL Absolute Nucleated RBC 0.000 (0.0-0.012) X10*3/uL Nucleated RBC % (auto) 0.0 (0.0-0.2) /100WBC Sodium 140 (135-145) mmol/L Potassium 4.6 (3.3-5.1) mmol/L Chloride 106 (96-108) mmol/L Carbon Dioxide 24 (22-29) mmol/L Anion Gap 15 (12-20) BUN 14 (9-16) mg/dL Creatinine 0.65 (0.5-1.4) mg/dL Estim Creat Clear Calc 90.0 Estimated GFR > 60 POC Glucose (60-115) mg/dL Random Glucose 92 (60-115) mg/dL Calcium 9.1 (8.4-10.2) mg/dL Total Bilirubin 0.3 (0.0-1.0) mg/dL AST 13 (5-31) U/L ALT 14 (0-31) U/L Alkaline Phosphatase 60 (39-117) U/L Total Protein 6.7 (6.5-8.0) g/dL Albumin 4.2 (3.5-5.0) g/dL Lipase 22 (8-78) U/L Urine Color Yellow Urine Appearance Clear Urine pH 6.5 (5.0-9.0) Ur Specific [place] 1.020 (1.005-1.025) Urine Protein 30 (1+) H (Neg-Trace) mg/dL Urine Glucose (UA) Negative (Negative) mg/dL Urine Ketones Negative (Negative) mg/dL Urine Blood Trace H (Negative) Urine Nitrite Negative (Negative) Ur Leukocyte Esterase Large (3+) H (Negative) Urine RBC 3-5 H (0-2) /HPF Urine WBC >50 H (0-5) /HPF Ur Squamous Epith Cells >20 (0-2) /HPF Urine Bacteria 4+ (None Seen) Hyaline Casts 0-2 (0-2) /LPF 06/10/22 Range/Units 14:45 WBC (4.8-10.8) X10*3/uL RBC (4.20-5.50) X10*6/uL Hgb (12.0-16.0) g/dl Hct (37.0-47.0) % MCV (80.0-98.0) fL MCH (27.0-33.0) pg MCHC (31.0-35.0) g/dl RDW (11.0-16.0) % Plt Count (160-400) X10*3/uL MPV (9.4-12.3) fL Immature Gran % (Auto) (0.0-0.4) % Neut % (Auto) (45-73) % Lymph % (Auto) (20-40) % [place] % (Auto) (2-11) % Eos % (Auto) (0-4) % Baso % (Auto) (0-2) % Lymph # (Auto) (1.2-4.9) X10*3/uL [place] # (Auto) (0.1-1.2) X10*3/uL Eos # (Auto) (0.0-0.4) X10*3/uL Baso # (Auto) (0.0-0.2) X10*3/uL Abs Immat Gran (auto) (0.00-0.03) X10*3/uL Absolute Neuts (auto) (2.0-8.3) x10*3/uL Absolute Nucleated RBC (0.0-0.012) X10*3/uL Nucleated RBC % (auto) (0.0-0.2) /100WBC Sodium (135-145) mmol/L Potassium (3.3-5.1) mmol/L Chloride (96-108) mmol/L Carbon Dioxide (22-29) mmol/L Anion Gap (12-20) BUN (9-16) mg/dL Creatinine (0.5-1.4) mg/dL Estim Creat Clear Calc Estimated GFR POC Glucose 58 L* (60-115) mg/dL Random Glucose (60-115) mg/dL Calcium (8.4-10.2) mg/dL Total Bilirubin (0.0-1.0) mg/dL AST (5-31) U/L ALT (0-31) U/L Alkaline Phosphatase (39-117) U/L Total Protein (6.5-8.0) g/dL Albumin (3.5-5.0) g/dL Lipase (8-78) U/L Urine Color Urine Appearance Urine pH (5.0-9.0) Ur Specific [place] (1.005-1.025) Urine Protein (Neg-Trace) mg/dL Urine Glucose (UA) (Negative) mg/dL Urine Ketones (Negative) mg/dL Urine Blood (Negative) Urine Nitrite (Negative) Ur Leukocyte Esterase (Negative) Urine RBC (0-2) /HPF Urine WBC (0-5) /HPF Ur Squamous Epith Cells (0-2) /HPF Urine Bacteria (None Seen) Hyaline Casts (0-2) /LPF Discharge Plan Discharge Clinical Impression: UTI (urinary tract infection) Patient Disposition: Home, Self-Care Instructions: Urinary Tract Infection in Women (ED) Additional Instructions: Your lab workup today was unremarkable. Your urine test showed evidence of a urinary tract infection. This is common after a urologic procedure. Take the prescribed antibiotics as directed, take your 1st dose tomorrow afternoon. Your given 1st dose today in the emergency department. Follow-up with your bariatric surgeon on June 13 as scheduled. Recommend following back up with her primary care doctor in your GI doctor for further evaluation of your swallowing issues. Tu an?lisis de laboratorio de hoy no tuvo nada especial. Barnard an?lisis de orina mostr? evidencia de dylan infecci?n del tracto urinario. [place] es com?n despu?s de un procedimiento urol?gico. [place] los antibi?ticos recetados seg?n las indicaciones, tome barnard primera dosis ma?silke por la tarde. Barnard primera dosis florin hoy en el departamento de emergencias. Seguimiento con barnard cirujano bryon?trico el 15 de seg?n lo programado. Recomiende hacer un seguimiento con barnard m?dico de atenci?n primaria en barnard m?dico GI para dylan evaluaci?n adicional de eleuterio problemas para tragar. Prescriptions: New levofloxacin 250 mg/10 mL solution 500 mg PO DAILY 5 Days Qty: 100 0RF ondansetron 4 mg tablet,disintegrating 4 mg PO Q8H PRN (Reason: nausea and vomiting) Qty: 10 0RF No Action vitamin B complex [B Complex-Vitamin B12] Tablet 1 tab PO DAILY Qty: 30 6RF Rx Instructions: 1,000mcg dose daily (DME) blood pressure monitor [Blood Pressure Kit] Kit See Rx Instructions .Route Qty: 1 0RF Rx Instructions: As directed (DME) blood-glucose meter [FreeStyle Lite Meter] Kit See Rx Instructions .ROUTE .MEDSUPPLY Qty: 1 0RF Rx Instructions: As directed (DME) lancets [FreeStyle Lancets] 28 gauge misc See Rx Instructions .ROUTE .MEDSUPPLY Qty: 100 3RF Rx Instructions: As directed check BS QD atorvastatin 20 mg tablet 20 mg PO DAILY Qty: 90 3RF (DME) CANE See Rx Instructions .Route .MEDSUPPLY Qty: 1 0RF Rx Instructions: As directed (DME) WRIST BRACE See Rx Instructions .Route .MEDSUPPLY Qty: 1 0RF Rx Instructions: As directed (DME) BATH CHAIR See Rx Instructions .Route .MEDSUPPLY Qty: 1 0RF Rx Instructions: [place] [place] LIFELINE ALERT SYSTEM See Rx Instructions .Route .MEDSUPPLY Qty: 1 0RF Rx Instructions: As directed (DME) ALCOHOL PADS See Rx Instructions .Route .MEDSUPPLY Qty: 100 3RF Rx Instructions: As directed sucralfate 1 gram tablet 1 g PO BID Qty: 180 3RF lidocaine [Lidoderm] 5 % adhesive patch,medicated 1 patch topical DAILY 30 Days Qty: 30 3RF Rx Instructions: leave on most painful area for up to 12 hrs diphenhydramine HCl [Benadryl] 25 mg capsule 25 mg PO BEDTIME PRN (Reason: sleep) Qty: 90 2RF tramadol 50 mg tablet 50 mg PO Q6H PRN (Reason: pain) 30 Days Qty: 60 0RF (DME) FreeStyle Lite Strips Strip See Rx Instructions .ROUTE .MEDSUPPLY Qty: 100 3RF Rx Instructions: As directed check QID nitrofurantoin monohyd/m-cryst [Macrobid] 100 mg capsule 100 mg PO BID 5 Days Qty: 10 0RF polyethylene glycol 3350 [Miralax] 17 gram powder in packet 17 g PO DAILY Qty: 30 5RF (DME) ROLLATOR See Rx Instructions .Route .MEDSUPPLY Qty: 1 0RF Rx Instructions: As directed Ensure High Protein Liquid 1 ea PO TID 30 Days Qty: 5688 0RF dicyclomine 20 mg tablet 20 mg PO BID Qty: 60 0RF (DME) WRIST SPLINT Right and Left hand See Rx Instructions .Route .MEDSUPPLY Qty: 1 0RF Rx Instructions: As directed cyclobenzaprine 5 mg tablet 5 mg PO BEDTIME PRN (Reason: muscle spasm) 15 Days Qty: 45 0RF (DME) SHOWER WAND See Rx Instructions .Route .MEDSUPPLY Qty: 1 0RF Rx Instructions: As directed (DME) SHOWER BAR See Rx Instructions .Route .MEDSUPPLY Qty: 1 0RF Rx Instructions: As directed (DME) ENSURE once a day See Rx Instructions .Route .MEDSUPPLY Qty: 90 0RF Rx Instructions: As directed venlafaxine 150 mg capsule,extended release 24hr 1 cap PO DAILY quetiapine 50 mg tablet 1 tab PO BID cefuroxime axetil 500 mg tablet 500 mg PO BID 10 Days Qty: 20 0RF codeine-guaifenesin 10-100 mg/5 mL liquid 10 ml PO Q6H PRN (Reason: cough) Qty: 237 0RF terconazole 0.8 % cream 1 appful vaginal BEDTIME 3 Days Qty: 20 0RF oxycodone 5 mg tablet 5 mg PO Q6H PRN (Reason: pain) Qty: 14 0RF Rx Instructions: Partial Fill upon patient request. tramadol 50 mg tablet 50 mg PO BID PRN (Reason: pain) Qty: 10 0RF sucralfate [Carafate] 100 mg/mL suspension 10 ml PO BID Qty: 420 0RF famotidine 40 mg tablet 1 tab PO BEDTIME hydroxyzine pamoate 50 mg capsule 1 cap PO BID PRN (Reason: Anxiety) acetaminophen 500 mg tablet 2 tab PO Q8H ondansetron 4 mg tablet,disintegrating 1 tab PO Q8H PRN (Reason: nausea) cholecalciferol (vitamin D3) [Vitamin D3] 50 mcg (2,000 unit) tablet 1 tab PO DAILY Linzess 290 mcg capsule 1 cap PO DAILY pantoprazole 40 mg tablet,delayed release (DR/EC) 40 mg PO DAILY@0630 zolpidem 10 mg tablet 10 mg PO BEDTIME PRN (Reason: Sleep) lactulose 10 gram/15 mL solution 10 g PO DAILY ascorbate calcium (vitamin C) 500 mg tablet 500 mg PO DAILY ziprasidone HCl 20 mg capsule 20 mg PO BID quetiapine 400 mg tablet 400 mg PO BEDTIME ursodiol 300 mg capsule 300 mg PO BID simethicone 80 mg tablet,chewable 80 mg PO Q6H PRN (Reason: GAS) clonazepam 1 mg tablet 1 mg PO TID GlucaGen HypoKit 1 mg recon soln 1 mg IVPUSH ONCE PRN (Reason: hypoglycemia below 55) Qty: 1 0RF acarbose 25 mg tablet 25 mg PO TID Qty: 90 3RF
--- OUTSIDE RECORDS SUMMARY | 2022-06-10 13:56 | XMS_ITS | Continuity of Care Document ---
:1980 Author Organization [facility] Address [address] [place] [id number]- Care Team Providers Name Role Phone Po Deirdre DENNEY Primary Care Physician Encounter [facility] [place](s): 06/02/22 - 06/02/[address] [id number] Discharge Disposition: A-D/C Home Attending Physician: Mango Tim MD Admitting Physician: Mango Tim MD Referring Physician: Mango Tim MD Allergies, Adverse Reactions, Alerts Substance Reaction Severity Status Motrin nausea, diarrhea Active Milk Products anaphylaxis Active Tomatoes difficulty breathing Active rash Egg Allergy anaphylaxis Active rash traZODone Anaphylaxis Persistent Severe Active HYDROcodone nausea ,vomiting Active Pepper (BLK) difficulty breathing Active rash Medications acarbose 50 mg oral tablet 1 tablet = 50 mg, By Mouth, 3 times a day, # 270 tablet, 0 Refills, Maintenance, 06/01/22 16:31:00 EDT, Tablet, Partial fill upon patient request if the prescription is for a schedule II opioid drug. Start Date: 06/01/22 Status: OrderedAmbien Tablet = 10 mg, By Mouth, Daily at bedtime, 0 Refills, Maintenance, 12/20/16 14:11:48 EDT Start Date: 12/20/16 Status: Orderedatorvastatin 20 mg oral tablet 1 tablet = 20 mg, By Mouth, Daily, 0 Refills, Maintenance Start Date: 12/20/16 Status: OrderedclonazePAM 1 mg oral tablet 1 tablet = 1 mg, By Mouth, 3 times a day Start Date: 04/24/15 Status: Ordereddicyclomine 10 mg oral capsule 1 capsule = 10 mg, By Mouth, 3 times a day, # 90 capsule, 2 Refills, Maintenance, 09/06/21 13:28:00 EST, [facility]/pharmacy #[id number], Partial fill upon patient request if the prescription is for a schedule II opioid drug., 157, cm, 09/06/21 12:56:00 EST, Heigh... Start Date: 09/06/21 Status: Orderedestradiol 0.1 mg/g vaginal cream = 1 Gm, Vaginally, Daily at bedtime, take every night for two weeks then twice weekly, # 42.5 each, 11 Refills, Maintenance, 04/19/22 14:29:00 EDT, [facility]/pharmacy #[id number], Partial fill upon patient requestif the prescription is for a schedule II opioid d... Start Date: 04/19/22 Status: Orderedfamotidine 40 mg oral tablet 1 tablet = 40 mg, By Mouth, Daily at bedtime, # 90 tablet, 3 Refills, Maintenance, 07/28/21 14:55:00EST, Tablet, [facility]/pharmacy #[id number], Partial fill upon patient request if the prescription is for a schedule II opioid drug., 157, cm, 07/13/21 14:05:00 E... Start Date: 07/28/21 Status: Orderedlactulose 10 gm/15 ml oral syrup 15 mL = 10 Gm, By Mouth, Daily, # 480 mL, 3 Refills, Maintenance, 04/28/22 14:33:00 EDT, Syrup, [facility]/pharmacy #[id number], Partial fill upon patient request if the prescription is for a schedule II opioid drug., 15 mL By Mouth Daily, 158, cm, 04/19/22 14:23:... Start Date: 04/28/22 Status: OrderedLinzess 290 mcg oral capsule 1 capsule = 290 mcg, By Mouth, Daily, # 30 capsule, 2 Refills, Maintenance, 09/06/21 13:27:00 EST, Capsule, [facility]/pharmacy #[id number], Partial fill upon patient request if the prescription is for a schedule II opioid drug., 157, cm, 09/06/21 12:56:00 EST, He... Start Date: 09/06/21 Status: Orderedmenthol-zinc oxide 0.44%-20.6% topical ointment See Instructions, apply to anal area 3-4 times a day, # 113 Gm, 2 Refills, Maintenance, 02/02/22 16:37:00 EDT, [facility]/pharmacy #[id number], Partial fill upon patient request if the prescription is for a schedule II opioid drug., apply to anal area 3-4 times a... Start Date: 02/02/22 Status: Orderedmirabegron 50 mg oral tablet, extended release 1 tablet = 50 mg, By Mouth, Daily, # 30 tablet, 11 Refills, Maintenance, 04/19/22 14:54:00 EDT, [facility]/pharmacy #[id number], Partial fill upon patient request if [...] EDT, Dry Weight Start Date: 07/13/21 Status: OrderedQuetiapine 400 mg, By Mouth, Daily at bedtime, Refills 0, Maintenance, 06/01/22 16:27:00 EDT, Partial fill uponpatient request if the prescription is for a schedule II opioid drug. Start Date: 06/01/22 Status: Orderedsucralfate 1 gm/10 ml oral suspension 10 mL = 1 Gm, By Mouth, 2 times a day, 0 Refills, Maintenance, 06/01/22 16:29:00 EDT, Partial fill upon patient request if the prescription is for a schedule II opioid drug. Start Date: 06/01/22 Status: OrderedTramadol = 50 mg, By Mouth, Every 6 hours, PRN Pain , Moderate, 0 Refills, Maintenance, 06/01/22 16:24:00 EDT, Partial fill upon patient request if the prescription is for a schedule II opioid drug. Start Date: 06/01/22 Status: Orderedtrospium chloride 20 mg oral tablet 1 tablet = 20 mg, By Mouth, 2 times a day, # 60 tablet, 11 Refills, Maintenance, 04/21/22 9:51:00 EDT, Tablet, [facility]/pharmacy #[id number], Partial fill upon patient request if the prescription is for a schedule II opioid drug., 158, cm, 04/19/22 14:23:00 EDT,... Start Date: 04/21/22 Status: OrderedUrsodiol = 600 mg, By Mouth, Daily, 0 Refills, Maintenance, 06/01/22 16:28:00 EDT, Partial fill upon patient request if the prescription is for a schedule II opioid drug. Start Date: 06/01/22 Status: OrderedVenlafaxine = 150 mg, By Mouth, Daily, 0 Refills, Maintenance, 06/01/22 16:30:00 EDT, Partial fill upon patient request if the prescription is for a schedule II opioid drug. Start Date: 06/01/22 Status: OrderedVistaril Capsule = 50 mg, By Mouth, 2 times a day, PRN as needed for anxiety, 0 Refills, Maintenance, 12/20/16 14:11:54 EDT Start Date: 12/20/16 Status: OrderedVitamin D3 2000 intl units oral capsule 1 capsule = 50 mcg, By Mouth, Daily, # 60 capsule, 0 Refills, Maintenance, 06/01/22 16:26:00 EDT, Capsule, Partial fill upon patient request if the prescription is for a schedule II opioid drug. Start Date: 06/01/22 Status: Orderedziprasidone 20 mg oral capsule 1 capsule = 20 mg, By Mouth, 2 times a day, # 180 capsule, 0 Refills, Maintenance, 06/01/22 16:25:00EDT, Capsule, Partial fill upon patient request if the prescription is for a schedule II opioid drug. Start Date: 06/01/22 Status: Ordered Problem List Condition Confirmation Course Effective Dates Status Health I nformant Status Arthritis Confirmed Active Constipation Confirmed Active Diabetes mellitus Confirmed Active Diverticulitis Confirmed Active GERD - Confirmed Active Gastro-esophageal reflux disease HTN - Hypertension Confirmed Active Vital Signs Most recent to oldest 1 2 3 [Reference Range]: Height 157.48 cm 157.48 cm (06/02/22 12:15 PM) (06/01/22 4:42 PM) Weight 52.2 kg (06/02/22 12:15 PM) Oxygen Saturation [94-100 %] 99 % 99 % 94 % (06/02/22 3:45 PM) (06/02/22 3:30 PM) (06/02/22 3:1 5 PM) Pulse Rate [55-90 bpm] 72 bpm (06/02/22 12:15 PM) Body Mass Index [18.5-24.99 21.05 kg/m2 kg/m2] (06/02/22 12:15 PM) Blood Pressure [90-138/55-84 103/69 mm Hg 114/84 mm Hg 105 /58 mm Hg mm Hg] (06/02/22 3:45 PM) (06/02/22 3:30 PM) (06/02/22 3:1 5 PM) Respiratory Rate [16-30 25 br/min 12 br/min 12 br/mi n br/min] (06/02/22 3:45 PM) *L* *L* (06/02/22 3:30 PM) (06/02/22 3:15 PM) Temperature [96.8-100.4 DegF] 98.3 DegF 97.4 DegF 97 .7 DegF (06/02/22 3:45 PM) (06/02/22 2:15 PM) (06/02/22 12: 15 PM) Liters per Minute 4 L/min (06/02/22 2:15 PM) Mode of Delivery (Oxygen) Room air Room air Room a ir (06/02/22 3:45 PM) (06/02/22 2:45 PM) (06/02/22 2:3 0 PM) Blood pressure sites Arm, left Arm, left Arm, left (06/02/22 3:45 PM) (06/02/22 3:30 PM) (06/02/22 3:1 5 PM) Temperature Route Temporal Temporal Temporal (06/02/22 3:45 PM) (06/02/22 2:15 PM) (06/02/22 12: 15 PM) Dry Weight 52.2 kg 51.8 kg (06/02/22 12:15 PM) (06/01/22 4:42 PM) Weight Obtained Via Standing scale (06/02/22 12:15 PM) Dry Weight Obtained Via Standing scale (06/02/22 12:15 PM) Social History Social History Type Response Smoking Status Former smoker, quit more iqra n 30 days ago entered on: 04/19/22 Sex Patient Care team information PersonnelName: Deirdre Cantrell MD Address: Address: [address] [place] [address] [id number]
[2022-06-10 15:32] LABS: Glucose, Whole Blood 58 mg/dL (60-115)
[2022-06-10] MEDS: Ondansetron ODT 4 MG TAB.RAPDIS TRANSLINGU (15:34)
[2022-06-10] MEDS: levoFLOXacin 500 MG TABLET PO (15:34)
[2022-06-10 15:35] VITALS: BP 96/40; PULSE 86; O2SAT 97
[2022-06-10 16:13] LABS: Glucose, Whole Blood 76 mg/dL (60-115)
== END 2022-06-10 16:26 | disposition home or self-care (01) ==
PROVIDERS: Emergency Provider Emergency Medicine; PCP Internal Medicine
DX: N39.0 Urinary tract infection, site not specified (principal); R13.10 Dysphagia, unspecified; I10 Essential (primary) hypertension; E78.5 Hyperlipidemia, unspecified; E11.9 Type 2 diabetes mellitus without complications; Z90.3 Acquired absence of stomach [part of]; Z79.02 Long term (current) use of antithrombotics/antiplatelets
CPT/HCPCS: 36415; 80053; 81001; 82947; 83690; 85025; 87086; 99283

== ENCOUNTER 2022-06-14 08:49 | Outpatient (REF) | payer OTHER, SELFPAY ==
--- NOTE | ~2022-06-14 | XR_ITS ---
EXAMINATION: XR LUMBOSACRAL SPINE WITH OBLIQUES CLINICAL INFORMATION: Low back pain COMPARISON: None TECHNIQUE: AP, both oblique, and lateral views of the lumbar spine. Lateral view of the lumbosacral junction. FINDINGS: There is normal lumbar lordosis. The vertebral heights, alignment and disc heights are normal. There is no visible acute fracture, dislocation subluxation. On oblique views there is no pars defect or listhesis. No aggressive lytic or sclerotic process seen. XR/XR lumbar spine 4V min IMPRESSION: Unremarkable lumbar spine exam.
== END 2022-06-14 08:50 | disposition home or self-care (01) ==
LOC: HO.XRAY 08:49
PROVIDERS: PCP Internal Medicine; Visit Provider Physician Assistant
DX: M54.50 Low back pain, unspecified (principal)
CPT/HCPCS: 72110

== ENCOUNTER 2022-06-18 19:13 | Emergency (ER) | payer OTHER, SELFPAY ==
[2022-06-18 19:23] VITALS: BP 112/77; PULSE 98; RESP 18; TEMP 36.7; O2SAT 99; BMI 20.1
[2022-06-18 19:54] LABS: MANUAL DIFF FLAG NO
[2022-06-18 19:55] LABS: Basophils Percent Auto 0.7 % (0-2); Eosinophils Absolute Auto 0.1 X10*3/uL (0.0-0.4); Eosinophils Percent Auto 0.8 % (0-4); Hematocrit 29.1 % (37.0-47.0); Hemoglobin 9.1 g/dl (12.0-16.0); Imm Gran Abs Auto 0.01 X10*3/uL (0.00-0.03); Imm Gran Pct Auto 0.2 % (0.0-0.4); Lymphocytes Absolute Auto 1.4 X10*3/uL (1.2-4.9); Lymphocytes Percent Auto 22.9 % (20-40); Mean Corpuscular HGB Conc 31.3 g/dl (31.0-35.0); Mean Corpuscular Hemoglobin 26.4 pg (27.0-33.0); Mean Corpuscular Volume 84.3 fL (80.0-98.0); Mean Platelet Volume 9.3 fL (9.4-12.3); Monocytes Absolute Auto 0.4 X10*3/uL (0.1-1.2); Monocytes Percent Auto 7.1 % (2-11); Neutrophils Absolute Auto 4.1 x10*3/uL (2.0-8.3); Neutrophils Percent Auto 68.3 % (45-73); Platelet Count 488 X10*3/uL (160-400); Red Blood Count 3.45 X10*6/uL (4.20-5.50); Red Cell Distribution Width 12.9 % (11.0-16.0)
[2022-06-18 20:09] LABS: Alanine Aminotransferase 8 U/L (0-31); Albumin Level 4.2 g/dL (3.5-5.0); Alkaline Phosphatase 59 U/L (39-117); Anion Gap 11 (12-20); Aspartate Amino Transferase 11 U/L (5-31); Bilirubin Total 0.2 mg/dL (0.0-1.0); Blood Urea Nitrogen 19 mg/dL (9-16); Carbon Dioxide 27 mmol/L (22-29); Chloride 106 mmol/L (96-108); Creatinine Clr Calc Pharmacy 77.7; Estimated Glomerular Filt Rate > 60; Glucose Random 96 mg/dL (60-115); Lipase 18 U/L (8-78); Potassium 4.4 mmol/L (3.3-5.1); Sodium 140 mmol/L (135-145); Total Protein 6.6 g/dL (6.5-8.0)
[2022-06-18 20:30] LABS: Influenza A PCR NEGATIVE (Negative); Influenza B PCR NEGATIVE (Negative); Resp Syncy Virus RNA Qual PCR NEGATIVE (Negative); SARS COV2 PCR INHOUSE NEGATIVE (Negative)
--- OUTSIDE RECORDS SUMMARY | 2022-06-18 22:03 | XMS_ITS | Continuity of Care Document ---
:1980 Author Organization [facility] Address [address] [place] [phone]- Care Team Providers Name Role Phone Po Deirdre DENNEY Primary Care Phys[place] [facility] [place] [facility] [address] [place] [phone]- Referring Physician: Naomie Carroll Allergies, Adverse Reactions, Alerts Substance Reaction Severity [...] EST, [facility]/pharmacy #[id number], Partial fill upon patient request if the prescription is for a schedule II opioid drug., 157, cm, 09/06/21 12:56:00 EST, Heigh... Start Date: 09/06/21 Status: Orderedestradiol 0.1 mg/g vaginal cream = 1 Gm, Vaginally, Daily at bedtime, take every night for two weeks then twice weekly, # 42.5 each, 11 Refills, Maintenance, 04/19/22 14:29:00 EDT, [facility]/pharmacy #[id number], Partial fill upon patient requestif the prescription is for a schedule II opioid d... Start Date: 04/19/22 Status: Orderedfamotidine 40 mg oral tablet 1 tablet = 40 mg, By Mouth, Daily at bedtime, # 90 tablet, 3 Refills, Maintenance, 07/28/21 14:55:00EST, Tablet, [facility]/pharmacy #[id number], Partial fill upon patient request if the prescription is for a schedule II opioid drug., 157, cm, 07/13/21 14:05:00 E... Start Date: 07/28/21 Status: Orderedlactulose 10 gm/15 ml oral syrup 15 mL = 10 Gm, By Mouth, Daily, # 480 mL, 3 Refills, Maintenance, 04/28/22 14:33:00 EDT, Syrup, [facility]/pharmacy #[id number], Partial fill upon patient request if the prescription is for a schedule II opioid drug., 15 mL By Mouth Daily, 158, cm, 04/19/22 14:23:... Start Date: 04/28/22 Status: OrderedLinzess 290 mcg oral capsule 1 capsule = 290 mcg, By Mouth, Daily, # 30 capsule, 2 Refills, Maintenance, 09/06/21 13:27:00 EST, Capsule, [facility]/pharmacy #[id number], Partial fill upon patient request if the prescription is for a schedule II opioid drug., 157, cm, 09/06/21 12:56:00 EST, He... Start Date: 09/06/21 Status: Orderedmenthol-zinc oxide 0.44%-20.6% topical ointment See Instructions, apply to anal area 3-4 times a day, # 113 Gm, 2 Refills, Maintenance, 02/02/22 16:37:00 EDT, [facility]/pharmacy #[id number], Partial fill upon patient request if the prescription is for a schedule II opioid drug., apply to anal area 3-4 times a... Start Date: 02/02/22 Status: Orderedmirabegron 50 mg oral tablet, extended release 1 tablet = 50 mg, By Mouth, Daily, # 30 tablet, 11 Refills, Maintenance, 04/19/22 14:54:00 EDT, [facility]/pharmacy #[id number], Partial fill upon patient request [...] 11 Refills, Maintenance, 04/21/22 9:51:00 EDT, Tablet, [facility]/pharmacy #[id number], Partial fill upon patient request [...] on: 04/19/22 Sex Patient Care team information Care Team PersonnelName: Deirdre Cantrell MD Position: Reference Physician Member Role: PCP Address: Address: [address] [place] [phone]- Care Team Related PersonsName: LENA SENIOR Address: home [address] [place] [address] [place] [id number] Name: SERVANDO GOTTLIEB Address: home [address] [place] [address]
== END 2022-06-18 22:05 | disposition left against medical advice (07) ==
LOC: HO.ED 22:00
PROVIDERS: Emergency Provider Emergency Medicine
DX: E16.2 Hypoglycemia, unspecified (principal); R20.2 Paresthesia of skin; Z98.84 Bariatric surgery status; Z20.822 Contact with and (suspected) exposure to COVID-19; Z79.899 Other long term (current) drug therapy
CPT/HCPCS: 0241U; 36415; 80053; 83690; 83735; 85025; 99282

== ENCOUNTER 2022-06-20 19:26 | Outpatient (REF) | payer OTHER, SELFPAY ==
--- NOTE | ~2022-06-20 | MR_ITS ---
EXAMINATION: MR BRAIN WITHOUT CONTRAST CLINICAL INFORMATION: Amnesia COMPARISON: MR brain without contrast 05/27/2020 TECHNIQUE: Multiplanar multisequence MR imaging of the brain was obtained without intravenous contrast. FINDINGS: There is no acute infarct on diffusion-weighted imaging. There is no intracranial hemorrhage on iron-sensitive imaging. No extra-axial collection or mass effect/herniation. There are several scattered foci of nonspecific supratentorial white matter T2/FLAIR signal abnormality, stable. No hydrocephalus. The ventricles are normal in morphology and size. The major flow voids at the skull base are preserved. The midline structures are normal. The cerebellar tonsils are normally positioned. The craniocervical junction is normal. Marrow signal is within normal limits. The visualized soft tissues are without significant abnormality. No signal abnormality within the paranasal sinuses or within the mastoid air cells. MR/MR head/brain wo con IMPRESSION: 1. Stable mild nonspecific supratentorial white matter signal changes. 2. Otherwise unremarkable noncontrast MRI of the brain.
== END 2022-06-20 19:27 | disposition home or self-care (01) ==
LOC: HO.MRI 19:26
PROVIDERS: Visit Provider Physician Assistant
DX: R41.3 Other amnesia (principal)
CPT/HCPCS: 70551

== ENCOUNTER 2022-06-24 21:25 | Emergency (ER) | payer OTHER, SELFPAY ==
[2022-06-24 22:00] VITALS: BP 94/46; PULSE 75; RESP 18; TEMP 36.6; O2SAT 100; BMI 20.1
[2022-06-24 23:05] LABS: Strep A Nucleic Acid Negative (Negative)
[2022-06-24 23:40] LABS: Influenza A PCR NEGATIVE (Negative); Influenza B PCR NEGATIVE (Negative); Resp Syncy Virus RNA Qual PCR NEGATIVE (Negative); SARS COV2 PCR INHOUSE POSITIVE (Negative)
--- NOTE | 2022-06-25 04:01 | ED.URI ---
HPI - URI/Sore Throat General Chief Complaint: Upper Respiratory Symptoms Stated Complaint: vomiting,facial pain Time Seen by Provider: 06/25/22 03:41 Source: patient Mode of arrival: ambulatory Limitations: no limitations History of Present Illness HPI Narrative: 41-year-old female who presents emergency department for evaluation of upper respiratory tract infection. Patient states she has been sick for approximately 3-4 days. She states she has had a sore throat, fever, nausea, headache, body aches, nonproductive cough. She also has had diarrhea. She states that her symptoms are getting worse. She states that she has not been vaccinated against COVID-19 but she did have a COVID-19 infection 3 years prior She states that she has a constant, throbbing headache which is 8/10 at its worst, the headache does give her nausea but no vomiting. She denied numbness or weakness. Related Data Home Medications Medication Instructions Recorded Confirmed lactulose 10 gram/15 mL oral 10 g PO DAILY 08/27/20 06/13/22 solution zolpidem 10 mg tablet 10 mg PO BEDTIME PRN Sleep 08/27/20 06/13/22 ascorbate calcium (vitamin C) 500 500 mg PO DAILY 09/08/21 06/13/22 mg tablet quetiapine 50 mg tablet 1 tab PO BID 09/22/21 06/13/22 venlafaxine 150 mg 1 cap PO DAILY 09/22/21 06/13/22 capsule,extended release 24 hr clonazepam 1 mg tablet 1 mg PO TID 10/26/21 06/13/22 quetiapine 400 mg tablet 400 mg PO BEDTIME 10/26/21 06/13/22 simethicone 80 mg chewable tablet 80 mg PO Q6H PRN GAS 10/26/21 06/13/22 ursodiol 300 mg capsule 300 mg PO BID 10/26/21 06/13/22 ziprasidone HCl 20 mg capsule 20 mg PO BID 10/26/21 06/13/22 acetaminophen 500 mg tablet 2 tab PO Q8H 02/11/22 06/13/22 cholecalciferol (vitamin D3) 50 1 tab PO DAILY 02/11/22 06/13/22 mcg (2,000 unit) tablet (Vitamin D3) famotidine 40 mg tablet 1 tab PO BEDTIME 02/11/22 06/13/22 hydroxyzine pamoate 50 mg capsule 1 cap PO BID PRN Anxiety 02/11/22 06/13/22 linaclotide 290 mcg capsule 1 cap PO DAILY 02/11/22 06/13/22 (Linzess) ondansetron 4 mg disintegrating 1 tab PO Q8H PRN nausea 02/11/22 06/13/22 tablet pantoprazole 40 mg tablet,delayed 40 mg PO DAILY@0630 02/11/22 06/13/22 release Previous Rx's Medication Instructions Recorded vitamin B complex (B 1 tab PO DAILY #30 tabs 07/13/21 Complex-Vitamin B12 tablet) blood pressure monitor (Blood #1 ea 10/31/21 Pressure Kit) blood-glucose meter (FreeStyle #1 ea 10/31/21 Lite Meter kit) lancets 28 gauge (FreeStyle #100 ea 10/31/21 Lancets) atorvastatin 20 mg tablet 20 mg PO DAILY #90 tabs 01/27/22 BATH CHAIR #1 ea 01/31/22 CANE #1 ea 01/31/22 LIFELINE ALERT SYSTEM #1 ea 01/31/22 WRIST BRACE #1 ea 01/31/22 ALCOHOL PADS #100 ea 02/21/22 sucralfate 1 gram tablet 1 g PO BID #180 tabs 02/21/22 glucagon 1 mg solution for 1 mg IVPUSH ONCE PRN hypoglycemia 03/09/22 injection (GlucaGen HypoKit) below 55 #1 ea lidocaine 5 % topical patch 1 patch topical DAILY 30 days #30 03/09/22 (Lidoderm) ea diphenhydramine HCl 25 mg capsule 25 mg PO BEDTIME PRN sleep #90 caps 03/10/22 (Benadryl) cefuroxime axetil 500 mg tablet 500 mg PO BID 10 days #20 tabs 04/02/22 codeine 10 mg-guaifenesin 100 mg/5 10 ml PO Q6H PRN cough #237 mL 04/02/22 mL oral liquid tramadol 50 mg tablet 50 mg PO Q6H PRN pain 30 days #60 04/10/22 tabs acarbose 25 mg tablet 25 mg PO TID #90 tabs 04/13/22 oxycodone 5 mg tablet 5 mg PO Q6H PRN pain #14 tabs 04/25/22 terconazole 0.8 % vaginal cream 1 appful vaginal BEDTIME 04/25/22 Candidiasis vaginitis 3 days #20 grams blood sugar diagnostic (FreeStyle #100 ea 05/01/22 Lite Strips) tramadol 50 mg tablet 50 mg PO BID PRN pain #10 tabs 05/03/22 nitrofurantoin 100 mg PO BID 5 days #10 caps 05/09/22 monohydrate/macrocrystals 100 mg capsule (Macrobid) sucralfate 100 mg/mL oral 10 ml PO BID #420 mL 05/17/22 suspension (Carafate) polyethylene glycol 3350 17 gram 17 g PO DAILY #30 ea 05/22/22 oral powder packet (Miralax) ROLLATOR #1 ea 05/23/22 food supplemt, lactose-reduced 1 ea PO TID 30 days #5,688 mL 05/23/22 (Ensure High Protein oral liquid) WRIST SPLINT Right and Left hand #1 ea 05/30/22 cyclobenzaprine 5 mg tablet 5 mg PO BEDTIME PRN muscle spasm 06/01/22 15 days #45 tabs ENSURE once a day #90 ea 06/08/22 SHOWER BAR #1 ea 06/08/22 SHOWER WAND #1 ea 06/08/22 levofloxacin 250 mg/10 mL oral 500 mg (20 mL) PO DAILY 5 days 06/10/22 solution #100 mL ondansetron 4 mg disintegrating 4 mg PO Q8H PRN nausea and 06/10/22 tablet vomiting #10 tabs tramadol 50 mg tablet 50 mg PO Q6H PRN pain 30 days #60 06/19/22 tabs dicyclomine 20 mg tablet 20 mg PO BID #60 tabs 06/20/22 Allergies Allergy/AdvReac Type Severity Reaction Status Date / Time tomato [TOMATO] Allergy Mild HIVES Verified 06/13/22 11:23 DIFFICULTY BREATHING hydrocodone [HYDROCODONE] Allergy Unknown RASH, Verified 06/13/22 11:23 AIRWAY CLOSES ibuprofen [From MOTRIN] Allergy Unknown STOMACH Verified 06/13/22 11:23 UPSET, vomiting trazodone [TRAZODONE] Allergy Unknown UNKNOWN, Verified 06/13/22 11:23 stomach upset black pepper [BLACK PEPPER] AdvReac Severe DIFFICULTY Verified 06/13/22 11:23 BREATHING, hives Review of Systems Review of Systems: Yes all other systems are reviewed and are negative PENDING SALE TO [facility] Past Medical History PENDING SALE TO [facility] Narrative: Social history: She does smoke cigarettes, she denies alcohol and drug use. 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 Diverticulosis GERD (gastroesophageal reflux disease) History of bipolar disorder History of schizophrenia Hypercholesterolemia Hypertension Insomnia Numbness of left hand Renal calculi Spondylosis of lumbar spine Type 2 diabetes mellitus with hyperglycemia Vitamin D deficiency Surgical History H/O: hysterectomy History of tubal ligation Hx of bariatric surgery Family History Family History Father Medical history unknown Mother Medical history unknown Paternal Aunt Uterine cancer Diabetes Hypertension Paternal Uncle Liver cancer Heart attack Maternal Aunt Stroke Family/Other Chronic mental illness Sister Uterine cancer Schizophrenia Brother Substance abuse Other Mental health disorder Social History Social History Household Members: None Housing: Apartment Do you presently have visiting nurse or other home services: Yes Alcohol intake: never Patient Tobacco Use Status: Never used Tobacco e-Cigarette/Vaping Use: Never Used Second Hand Smoke Exposure: No Advance Directives: No Advance Directives Information Provided: No service: No Current occupational status: disabled Current occupational exposures/hazards: No Cognitive needs: No Hearing needs: No Vision needs: No Physical Exam Vital Signs: Vital Signs: Last Vital Signs Temp 97.9 F 06/24/22 22:00 Pulse 75 06/24/22 22:00 Resp 18 06/24/22 22:00 BP 94/46 L 06/24/22 22:00 Pulse Ox 100 06/24/22 22:00 O2 Del Method 06/24/22 22:00 BMI result Body Mass Index 20.1 Const: General: cooperative and no acute distress Orientation/consciousness: oriented to person and oriented to place Limitations: no limitations HEENT: Head: Yes normal to inspection, Yes normocephalic and Yes atraumatic Ears: external ears normal General nose exam: Normal external nose present Face and sinus: Yes normal facial exam Mouth: Normal oral and palatal mucosa present Throat: Yes posterior oropharynx normal Eyes: General: appearance normal, both eyes and all related structures Pupils: Equal, round and reactive pupils present Neck: Neck: Yes normal visual inspection, Yes no lymphadenopathy, Yes trachea midline and Yes supple Chest: Chest palpation & inspection: normal inspection of the chest and normal palpation of entire chest wall Resp: Effort & Inspection: normal respiratory effort and able to speak in complete sentences Auscultation: clear to auscultation bilaterally Cardio: Rate: regular rate Rhythm: regular rhythm Heart sounds: S1 normal heart sound present, S2 normal heart sound present and no murmurs GI: Inspection: Yes normal to inspection Palpation (GI): Soft to palpation, nontender and no guarding Auscultation: normal bowel sounds : General: Yes no CVA tenderness Back/Spine/Pelvis: Back: no CVA tenderness Skin: General skin exam: no rashes or lesions noted Neuro: General: oriented to person and oriented to place Cranial nerves: Yes CN's II-XII intact bilaterally and Yes Equal, round and reactive pupils present Cognition (Neuro): normal cognition Motor exam (neuro): 5/5 motor strength present throughout Extrem: General: Yes normal to inspection Psych: Appearance: grossly normal Speech and movement: Normal speech and movement present Affect: normal affect Attitude: cooperative Thought process: Normal thought process present Thought content: Normal thought content present Course Course Course Narrative: 41-year-old female who presents emergency department for evaluation of URI times 3-4 days. Patient had a COVID-19 infection 3 years prior but is not vaccinated against COVID. Patient's vital signs were normal with an O2 saturation of 100% on room air. Exam was otherwise unremarkable. COVID-19 was positive. Given the fact that she has been sick for 4 days and she is on multiple medications that cannot be stop, she is not a candidate for Paxlovid but could possibly get remdesivir. The patient was referred to the [facility] infusion clinic. Patient was given printed and verbal instructions and discharged home. MDM - URI/Sore Throat Lab Data Labs: Lab Results 06/24/22 06/24/22 Range/Units 22:45 22:45 Influenza Type A (PCR) NEGATIVE (Negative) Influenza Type B (PCR) NEGATIVE (Negative) RSV RNA Qual (PCR) NEGATIVE (Negative) SARS-CoV-2 RNA (RT-PCR) POSITIVE A (Negative) S. pyogenes GrpA BRIDGER Negative (Negative) Discharge Plan Discharge Clinical Impression: COVID-19 virus infection Patient Disposition: Home, Self-Care Instructions: COVID-19 (Coronavirus Disease 2019) (ED) Additional Instructions: Your symptoms are consistent with COVID-19 infection. Your COVID-19 test was positive today. I am referring you to the [facility] transfusion clinic. I filled out an online referral for them to evaluate you to get remdesivir IV once a day for 3 days. This is a medication that hopefully will prevent you from getting sicker from your COVID infection. The clinic should contact you on your cell phone number, if you do not hear from them in 1-2 days then you can call the following number: [phone] Take Tylenol (acetaminophen) 500 mg pills, 2 pills every 4 to 6 hours as needed for pain for pain. Follow-up with your doctor in 2 days. Please return to the emergency department if your symptoms get worse or if you develop any symptoms that are concerning to you. Prescriptions: No Action vitamin B complex [B Complex-Vitamin B12] Tablet 1 tab PO DAILY Qty: 30 6RF Rx Instructions: 1,000mcg dose daily (DME) blood pressure monitor [Blood Pressure Kit] Kit See Rx Instructions .Route Qty: 1 0RF Rx Instructions: As directed (DME) blood-glucose meter [FreeStyle Lite Meter] Kit See Rx Instructions .ROUTE .MEDSUPPLY Qty: 1 0RF Rx Instructions: As directed (DME) lancets [FreeStyle Lancets] 28 gauge misc See Rx Instructions .ROUTE .MEDSUPPLY Qty: 100 3RF Rx Instructions: As directed check BS QD atorvastatin 20 mg tablet 20 mg PO DAILY Qty: 90 3RF (DME) CANE See Rx Instructions .Route .MEDSUPPLY Qty: 1 0RF Rx Instructions: As directed (DME) WRIST BRACE See Rx Instructions .Route .MEDSUPPLY Qty: 1 0RF Rx Instructions: As directed (DME) BATH CHAIR See Rx Instructions .Route .MEDSUPPLY Qty: 1 0RF Rx Instructions: As directed (DME) LIFELINE ALERT SYSTEM See Rx Instructions .Route .MEDSUPPLY Qty: 1 0RF Rx Instructions: As directed (DME) ALCOHOL PADS See Rx Instructions .Route .MEDSUPPLY Qty: 100 3RF Rx Instructions: As directed sucralfate 1 gram tablet 1 g PO BID Qty: 180 3RF lidocaine [Lidoderm] 5 % adhesive patch,medicated 1 patch topical DAILY 30 Days Qty: 30 3RF Rx Instructions: leave on most painful area for up to 12 hrs diphenhydramine HCl [Benadryl] 25 mg capsule 25 mg PO BEDTIME PRN (Reason: sleep) Qty: 90 2RF tramadol 50 mg tablet 50 mg PO Q6H PRN (Reason: pain) 30 Days Qty: 60 0RF (DME) FreeStyle Lite Strips Strip See Rx Instructions .ROUTE .MEDSUPPLY Qty: 100 3RF Rx Instructions: As directed check QID nitrofurantoin monohyd/m-cryst [Macrobid] 100 mg capsule 100 mg PO BID 5 Days Qty: 10 0RF polyethylene glycol 3350 [Miralax] 17 gram powder in packet 17 g PO DAILY Qty: 30 5RF (DME) ROLLATOR See Rx Instructions .Route .MEDSUPPLY Qty: 1 0RF Rx Instructions: As directed Ensure High Protein Liquid 1 ea PO TID 30 Days Qty: 5688 0RF (DME) WRIST SPLINT Right and Left hand See Rx Instructions .Route .MEDSUPPLY Qty: 1 0RF Rx Instructions: As directed cyclobenzaprine 5 mg tablet 5 mg PO BEDTIME PRN (Reason: muscle spasm) 15 Days Qty: 45 0RF (DME) SHOWER WAND See Rx Instructions .Route .MEDSUPPLY Qty: 1 0RF Rx Instructions: As directed (DME) SHOWER BAR See Rx Instructions .Route .MEDSUPPLY Qty: 1 0RF Rx Instructions: As directed (DME) ENSURE once a day See Rx Instructions .Route .MEDSUPPLY Qty: 90 0RF Rx Instructions: As directed tramadol 50 mg tablet 50 mg PO Q6H PRN (Reason: pain) 30 Days Qty: 60 0RF dicyclomine 20 mg tablet 20 mg PO BID Qty: 60 0RF venlafaxine 150 mg capsule,extended release 24hr 1 cap PO DAILY quetiapine 50 mg tablet 1 tab PO BID cefuroxime axetil 500 mg tablet 500 mg PO BID 10 Days Qty: 20 0RF codeine-guaifenesin 10-100 mg/5 mL liquid 10 ml PO Q6H PRN (Reason: cough) Qty: 237 0RF terconazole 0.8 % cream 1 appful vaginal BEDTIME 3 Days Qty: 20 0RF oxycodone 5 mg tablet 5 mg PO Q6H PRN (Reason: pain) Qty: 14 0RF Rx Instructions: Partial Fill upon patient request. tramadol 50 mg tablet 50 mg PO BID PRN (Reason: pain) Qty: 10 0RF sucralfate [Carafate] 100 mg/mL suspension 10 ml PO BID Qty: 420 0RF levofloxacin 250 mg/10 mL solution 500 mg PO DAILY 5 Days Qty: 100 0RF ondansetron 4 mg tablet,disintegrating 4 mg PO Q8H PRN (Reason: nausea and vomiting) Qty: 10 0RF famotidine 40 mg tablet 1 tab PO BEDTIME hydroxyzine pamoate 50 mg capsule 1 cap PO BID PRN (Reason: Anxiety) acetaminophen 500 mg tablet 2 tab PO Q8H ondansetron 4 mg tablet,disintegrating 1 tab PO Q8H PRN (Reason: nausea) cholecalciferol (vitamin D3) [Vitamin D3] 50 mcg (2,000 unit) tablet 1 tab PO DAILY Linzess 290 mcg capsule 1 cap PO DAILY pantoprazole 40 mg tablet,delayed release (DR/EC) 40 mg PO DAILY@0630 zolpidem 10 mg tablet 10 mg PO BEDTIME PRN (Reason: Sleep) lactulose 10 gram/15 mL solution 10 g PO DAILY ascorbate calcium (vitamin C) 500 mg tablet 500 mg PO DAILY ziprasidone HCl 20 mg capsule 20 mg PO BID quetiapine 400 mg tablet 400 mg PO BEDTIME ursodiol 300 mg capsule 300 mg PO BID simethicone 80 mg tablet,chewable 80 mg PO Q6H PRN (Reason: GAS) clonazepam 1 mg tablet 1 mg PO TID GlucaGen HypoKit 1 mg recon soln 1 mg IVPUSH ONCE PRN (Reason: hypoglycemia below 55) Qty: 1 0RF acarbose 25 mg tablet 25 mg PO TID Qty: 90 3RF
[2022-06-25 04:15] VITALS: PULSE 83; RESP 18; O2SAT 97
== END 2022-06-25 04:18 | disposition home or self-care (01) ==
PROVIDERS: Emergency Provider Emergency Medicine Emergency Medical Services; PCP Internal Medicine
DX: U07.1 COVID-19 (principal); R51.9 Headache, unspecified; Z20.822 Contact with and (suspected) exposure to COVID-19
CPT/HCPCS: 0241U; 36415; 87651; 99283

== ENCOUNTER 2022-07-06 16:13 | Emergency (ER) | payer OTHER, SELFPAY ==
[2022-07-06 16:45] VITALS: BP 103/68; PULSE 72; RESP 20; TEMP 36.8; O2SAT 100; BMI 19.2
--- NOTE | 2022-07-06 16:47 | ED_ITS ---
HPI - Abdominal Pain General Chief Complaint: General Medical <Kaylie Gold NP - Last Filed: 07/06/22 16:55> Stated Complaint: Abdominal Pain <Kaylie Gold NP - Last Filed: 07/06/22 16:55> Time Seen by Provider: 07/06/22 23:32 <Kaylie Gold NP - Last Filed: 07/06/22 16:55> Source: patient <Luis Enrique Carias MD - Last Filed: 07/07/22 00:07> Mode of arrival: ambulatory <Luis Enrique Carias MD - Last Filed: 07/07/22 00:07> Limitations: no limitations <Luis Enrique Carias MD - Last Filed: 07/07/22 00:07> History of Present Illness HPI narrative: Patient status post gastric sleeve surgery, GERD on Protonix and famotidine, anxiety, IBS, had COVID 2nd time 10 days ago not vaccinated against COVID since then patient complaining of increased pain in the midsternum area which is going on since 10/16 to getting worse now patient recently had en doscopy and 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 patient very anxious on arrival a diffuse abdominal pain also is complaining of shortness of breath but saturating 100% room air also she thinks she lost weight is supposed to be after gastric sleeve surgery <Luis Enrique Carias MD - Last Filed: 07/07/22 00:07> Related Data Home Medications: Home Medications Medication Instructions Recorded Confirmed lactulose 10 gram/15 mL oral 10 g PO DAILY 08/27/20 06/13/22 solution zolpidem 10 mg tablet 10 mg PO BEDTIME PRN Sleep 08/27/20 06/13/22 ascorbate calcium (vitamin C) 500 500 mg PO DAILY 09/08/21 06/13/22 mg tablet quetiapine 50 mg tablet 1 tab PO BID 09/22/21 06/13/22 venlafaxine 150 mg 1 cap PO DAILY 09/22/21 06/13/22 capsule,extended release 24 hr clonazepam 1 mg tablet 1 mg PO TID 10/26/21 06/13/22 quetiapine 400 mg tablet 400 mg PO BEDTIME 10/26/21 06/13/22 simethicone 80 mg chewable tablet 80 mg PO Q6H PRN GAS 10/26/21 06/13/22 ursodiol 300 mg capsule 300 mg PO BID 10/26/21 06/13/22 ziprasidone HCl 20 mg capsule 20 mg PO BID 10/26/21 06/13/22 acetaminophen 500 mg tablet 2 tab PO Q8H 02/11/22 06/13/22 cholecalciferol (vitamin D3) 50 1 tab PO DAILY 02/11/22 06/13/22 mcg (2,000 unit) tablet (Vitamin D3) famotidine 40 mg tablet 1 tab PO BEDTIME 02/11/22 06/13/22 hydroxyzine pamoate 50 mg capsule 1 cap PO BID PRN Anxiety 02/11/22 06/13/22 linaclotide 290 mcg capsule 1 cap PO DAILY 02/11/22 06/13/22 (Linzess) ondansetron 4 mg disintegrating 1 tab PO Q8H PRN nausea 02/11/22 06/13/22 tablet pantoprazole 40 mg tablet,delayed 40 mg PO DAILY@0630 02/11/22 06/13/22 release Previous Rx's Medication Instructions Recorded vitamin B complex (B 1 tab PO DAILY #30 tabs 07/13/21 Complex-Vitamin B12 tablet) blood pressure monitor (Blood #1 ea 10/31/21 Pressure Kit) blood-glucose meter (FreeStyle #1 atif 10/31/21 Lite Meter kit) lancets 28 gauge (FreeStyle #100 ea 10/31/21 Lancets) atorvastatin 20 mg tablet 20 mg PO DAILY #90 tabs 01/27/22 BATH CHAIR #1 ea 01/31/22 CANE #1 ea 01/31/22 LIFELINE ALERT SYSTEM #1 ea 01/31/22 WRIST BRACE #1 ea 01/31/22 ALCOHOL PADS #100 ea 02/21/22 sucralfate 1 gram tablet 1 g PO BID #180 tabs 02/21/22 glucagon 1 mg solution for 1 mg IVPUSH ONCE PRN hypoglycemia 03/09/22 injection (GlucaGen HypoKit) below 55 #1 ea lidocaine 5 % topical patch 1 patch topical DAILY 30 days #30 03/09/22 (Lidoderm) ea diphenhydramine HCl 25 mg capsule 25 mg PO BEDTIME PRN sleep #90 caps 03/10/22 (Benadryl) cefuroxime axetil 500 mg tablet 500 mg PO BID 10 days #20 tabs 04/02/22 codeine 10 mg-guaifenesin 100 mg/5 10 ml PO Q6H PRN cough #237 mL 04/02/22 mL oral liquid tramadol 50 mg tablet 50 mg PO Q6H PRN pain 30 days #60 04/10/22 tabs acarbose 25 mg tablet 25 mg PO TID #90 tabs 04/13/22 oxycodone 5 mg tablet 5 mg PO Q6H PRN pain #14 tabs 04/25/22 terconazole 0.8 % vaginal cream 1 appful vaginal BEDTIME 04/25/22 Candidiasis vaginitis 3 days #20 grams tramadol 50 mg tablet 50 mg PO BID PRN pain #10 tabs 05/03/22 nitrofurantoin 100 mg PO BID 5 days #10 caps 05/09/22 monohydrate/macrocrystals 100 mg capsule (Macrobid) sucralfate 100 mg/mL oral 10 ml PO BID #420 mL 05/17/22 suspension (Carafate) polyethylene glycol 3350 17 gram 17 g PO DAILY #30 ea 05/22/22 oral powder packet (Miralax) ROLLATOR #1 ea 05/23/22 food supplemt, lactose-reduced 1 ea PO TID 30 days #5,688 mL 05/23/22 (Ensure High Protein oral liquid) WRIST SPLINT Right and Left hand #1 ea 05/30/22 cyclobenzaprine 5 mg tablet 5 mg PO BEDTIME PRN muscle spasm 06/01/22 15 days #45 tabs ENSURE once a day #90 ea 06/08/22 SHOWER BAR #1 ea 06/08/22 SHOWER WAND #1 ea 06/08/22 levofloxacin 250 mg/10 mL oral 500 mg (20 mL) PO DAILY 5 days 06/10/22 solution #100 mL ondansetron 4 mg disintegrating 4 mg PO Q8H PRN nausea and 06/10/22 tablet vomiting #10 tabs tramadol 50 mg tablet 50 mg PO Q6H PRN pain 30 days #60 06/19/22 tabs dicyclomine 20 mg tablet 20 mg PO BID #60 tabs 06/20/22 acetaminophen 160 mg/5 mL oral 500 mg (15.625 mL) PO QID PRN 11/28/22 suspension (Children's Tylenol) pain, temp 7 days #120 mL blood sugar diagnostic (FreeStyle #50 ea 07/04/22 Lite Strips) sucralfate 1 gram tablet 1 g PO TID #90 tabs 07/06/22 <Kaylie Gold NP - Last Filed: 07/06/22 16:55> Allergies/Adverse Reactions: Allergies Allergy/AdvReac Type Severity Reaction Status Date / Time tomato [TOMATO] Allergy Mild HIVES Verified 06/13/22 11:23 DIFFICULTY BREATHING hydrocodone [HYDROCODONE] Allergy Unknown RASH, Verified 06/13/22 11:23 AIRWAY CLOSES ibuprofen [From MOTRIN] Allergy Unknown STOMACH Verified 06/13/22 11:23 UPSET, vomiting trazodone [TRAZODONE] Allergy Unknown UNKNOWN, Verified 06/13/22 11:23 stomach upset black pepper [BLACK PEPPER] AdvReac Severe DIFFICULTY Verified 06/13/22 11:23 BREATHING, hives <Kaylie Gold NP - Last Filed: 07/06/22 16:55> Review of Systems Review of Systems Yes all other systems are reviewed and are negative <Luis Enrique Carias MD - Last Filed: 07/07/22 00:07> [facility] Past Medical History Medical History: 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 Diverticulosis GERD (gastroesophageal reflux disease) History of bipolar disorder History of schizophrenia Hypercholesterolemia Hypertension Insomnia Numbness of left hand Renal calculi Spondylosis of lumbar spine Type 2 diabetes mellitus with hyperglycemia Vitamin D deficiency <Kaylie Gold NP - Last Filed: 07/06/22 16:55> Surgical History: Surgical History H/O: hysterectomy History of tubal ligation Hx of bariatric surgery <Kaylie Gold NP - Last Filed: 07/06/22 16:55> Family History Family History: Family History Father Medical history unknown Mother Medical history unknown Paternal Aunt Uterine cancer Diabetes Hypertension Paternal Uncle Liver cancer Heart attack Maternal Aunt Stroke Family/Other Chronic mental illness Sister Uterine cancer Schizophrenia Brother Substance abuse Other Mental health disorder <Kaylie Gold NP - Last Filed: 07/06/22 16:55> Social History Social History: Social History Household Members: None Housing: Apartment Do you presently have visiting nurse or other home services: Yes Alcohol intake: never Patient Tobacco Use Status: Never used Tobacco e-Cigarette/Vaping Use: Never Used Second Hand Smoke Exposure: No Advance Directives: No Advance Directives Information Provided: No service: No Current occupational status: disabled Current occupational exposures/hazards: No Cognitive needs: No Hearing needs: No Vision needs: No <Kaylie Gold NP - Last Filed: 07/06/22 16:55> Physical Exam ED Vital Signs: Vital Signs - 24 hr 07/06/22 16:45 Temperature 98.2 F Pulse Rate 72 Respiratory Rate 20 Blood Pressure 103/68 Pulse Oximetry 100 Oxygen Delivery Method Room Air BMI result Body Mass Index 19.2 <Kaylie Gold NP - Last Filed: 07/06/22 16:55> Vital Signs - 24 hr 07/06/22 16:45 Temperature 98.2 F Pulse Rate 72 Respiratory Rate 20 Blood Pressure 103/68 Pulse Oximetry 100 Oxygen Delivery Method Room Air BMI result Body Mass Index 19.2 <Luis Enrique Carias MD - Last Filed: 07/07/22 00:07> Appearance: Alert. Oriented X3. No acute distress. Anxious Eyes no pallor or icterus ENT: Pharynx normal. Oral Mucosa moist Neck: Normal inspection. Neck supple. CVS: Normal heart rate and rhythm. Pulses normal. Respiratory: No respiratory distress. Equal air entry bilateral, no wheezing/rales/rhonchi Abdomen: Soft, epigastric tenderness+. Bowel sounds are present, no mass palpable, no CVA tenderness Skin: Skin warm and dry. Normal skin color. Normal skin turgor. Extremities: No lower extremity edema. No calf tenderness Neuro: Oriented X 3. No motor deficit. <Luis Enrique Carias MD - Last Filed: 07/07/22 00:07> Course Course Course Narrative: This is a rapid medical exam. Defer additional HPI, ROS, PE to primary provider. 41 yo female with history of gastric sleeve at [facility] 10/19/2021 complicated by post-op malabsorption and hypoglycemia, GERD, HTN, HLD, bipolar disorder, low back pain, diverticulosis here with complaints of left sided abdominal pain, decreased oral intake, nausea/vomiting for months since having bariatric surgery. Since having covid 06/25 she is having shortness of breath, cough. Will check labs, UA, CXR. VSS. 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 <Luis Enrique Carias MD - Last Filed: 07/07/22 00:07> Discharge Plan Discharge Clinical Impression: GERD (gastroesophageal reflux disease), Esophagitis <Kaylie Gold NP - Last Filed: 07/06/22 16:55> Patient Disposition: Home, Self-Care <Kaylie Gold NP - Last Filed: 07/06/22 16:55> Instructions: Gastroesophageal Reflux Disease (ED), Esophagitis (ED) <Kaylie Gold NP - Last Filed: 07/06/22 16:55> Additional Instructions: Continue your Protonix and famotidine Sucralfate as advised before meals Follow-up with your dividing machine operator <Kaylie Gold NP - Last Filed: 07/06/22 16:55> Prescriptions: New sucralfate 1 gram tablet 1 g PO TID Qty: 90 0RF No Action vitamin B complex [B Complex-Vitamin B12] Tablet 1 tab PO DAILY Qty: 30 6RF Rx Instructions: 1,000mcg dose daily (DME) blood pressure monitor [Blood Pressure Kit] Kit See Rx Instructions .Route Qty: 1 0RF Rx Instructions: As directed (DME) blood-glucose meter [FreeStyle Lite Meter] Kit See Rx Instructions .ROUTE .MEDSUPPLY Qty: 1 0RF Rx Instructions: As directed ([facility]) lancets [FreeStyle Lancets] 28 gauge misc See Rx Instructions .ROUTE .MEDSUPPLY Qty: 100 3RF Rx Instructions: As directed check BS QD atorvastatin 20 mg tablet 20 mg PO DAILY Qty: 90 3RF (DME) CANE See Rx Instructions .Route .MEDSUPPLY Qty: 1 0RF Rx Instructions: As directed ([facility]) WRIST BRACE See Rx Instructions .Route .MEDSUPPLY Qty: 1 0RF Rx Instructions: As directed ([facility]) BATH CHAIR See Rx Instructions .Route .MEDSUPPLY Qty: 1 0RF Rx Instructions: As directed ([facility]) LIFELINE ALERT SYSTEM See Rx Instructions .Route .MEDSUPPLY Qty: 1 0RF Rx Instructions: As directed ([facility]) ALCOHOL PADS See Rx Instructions .Route .MEDSUPPLY Qty: 100 3RF Rx Instructions: As directed sucralfate 1 gram tablet 1 g PO BID Qty: 180 3RF lidocaine [Lidoderm] 5 % adhesive patch,medicated 1 patch topical DAILY 30 Days Qty: 30 3RF Rx Instructions: leave on most painful area for up to 12 hrs diphenhydramine HCl [Benadryl] 25 mg capsule 25 mg PO BEDTIME PRN (Reason: sleep) Qty: 90 2RF tramadol 50 mg tablet 50 mg PO Q6H PRN (Reason: pain) 30 Days Qty: 60 0RF nitrofurantoin monohyd/m-cryst [Macrobid] 100 mg capsule 100 mg PO BID 5 Days Qty: 10 0RF polyethylene glycol 3350 [Miralax] 17 gram powder in packet 17 g PO DAILY Qty: 30 5RF (DME) ROLLATOR See Rx Instructions .Route .MEDSUPPLY Qty: 1 0RF Rx Instructions: As directed Ensure High Protein Liquid 1 ea PO TID 30 Days Qty: 5688 0RF (DME) WRIST SPLINT Right and Left hand See Rx Instructions .Route .MEDSUPPLY Qty: 1 0RF Rx Instructions: As directed cyclobenzaprine 5 mg tablet 5 mg PO BEDTIME PRN (Reason: muscle spasm) 15 Days Qty: 45 0RF (DME) SHOWER WAND See Rx Instructions .Route .MEDSUPPLY Qty: 1 0RF Rx Instructions: As directed (DME) SHOWER BAR See Rx Instructions .Route .MEDSUPPLY Qty: 1 0RF Rx Instructions: As directed (DME) ENSURE once a day See Rx Instructions .Route .MEDSUPPLY Qty: 90 0RF Rx Instructions: As directed tramadol 50 mg tablet 50 mg PO Q6H PRN (Reason: pain) 30 Days Qty: 60 0RF dicyclomine 20 mg tablet 20 mg PO BID Qty: 60 0RF acetaminophen [Children's Tylenol] 160 mg/5 mL suspension 500 mg PO QID PRN (Reason: pain, temp) 7 Days Qty: 120 0RF (DME) FreeStyle Lite Strips Strip See Rx Instructions .ROUTE .MEDSUPPLY Qty: 50 3RF Rx Instructions: As directed check QD venlafaxine 150 mg capsule,extended release 24hr 1 cap PO DAILY quetiapine 50 mg tablet 1 tab PO BID cefuroxime axetil 500 mg tablet 500 mg PO BID 10 Days Qty: 20 0RF codeine-guaifenesin 10-100 mg/5 mL liquid 10 ml PO Q6H PRN (Reason: cough) Qty: 237 0RF terconazole 0.8 % cream 1 appful vaginal BEDTIME 3 Days Qty: 20 0RF oxycodone 5 mg tablet 5 mg PO Q6H PRN (Reason: pain) Qty: 14 0RF Rx Instructions: Partial Fill upon patient request. tramadol 50 mg tablet 50 mg PO BID PRN (Reason: pain) Qty: 10 0RF sucralfate [Carafate] 100 mg/mL suspension 10 ml PO BID Qty: 420 0RF levofloxacin 250 mg/10 mL solution 500 mg PO DAILY 5 Days Qty: 100 0RF ondansetron 4 mg tablet,disintegrating 4 mg PO Q8H PRN (Reason: nausea and vomiting) Qty: 10 0RF famotidine 40 mg tablet 1 tab PO BEDTIME hydroxyzine pamoate 50 mg capsule 1 cap PO BID PRN (Reason: Anxiety) acetaminophen 500 mg tablet 2 tab PO Q8H ondansetron 4 mg tablet,disintegrating 1 tab PO Q8H PRN (Reason: nausea) cholecalciferol (vitamin D3) [Vitamin D3] 50 mcg (2,000 unit) tablet 1 tab PO DAILY Linzess 290 mcg capsule 1 cap PO DAILY pantoprazole 40 mg tablet,delayed release (DR/EC) 40 mg PO DAILY@0630 zolpidem 10 mg tablet 10 mg PO BEDTIME PRN (Reason: Sleep) lactulose 10 gram/15 mL solution 10 g PO DAILY ascorbate calcium (vitamin C) 500 mg tablet 500 mg PO DAILY ziprasidone HCl 20 mg capsule 20 mg PO BID quetiapine 400 mg tablet 400 mg PO BEDTIME ursodiol 300 mg capsule 300 mg PO BID simethicone 80 mg tablet,chewable 80 mg PO Q6H PRN (Reason: GAS) clonazepam 1 mg tablet 1 mg PO TID GlucaGen HypoKit 1 mg recon soln 1 mg IVPUSH ONCE PRN (Reason: hypoglycemia below 55) Qty: 1 0RF acarbose 25 mg tablet 25 mg PO TID Qty: 90 3RF <Kaylie Gold NP - Last Filed: 07/06/22 16:55>
[2022-07-06 18:02] LABS: MANUAL DIFF FLAG NO
[2022-07-06 18:09] LABS: Basophils Absolute Auto 0.1 X10*3/uL (0.0-0.2); Basophils Percent Auto 0.9 % (0-2); Eosinophils Percent Auto 0.6 % (0-4); Hematocrit 30.6 % (37.0-47.0); Hemoglobin 9.6 g/dl (12.0-16.0); Imm Gran Abs Auto 0.09 X10*3/uL (0.00-0.03); Imm Gran Pct Auto 1.4 % (0.0-0.4); Lymphocytes Absolute Auto 1.7 X10*3/uL (1.2-4.9); Mean Corpuscular HGB Conc 31.4 g/dl (31.0-35.0); Mean Corpuscular Hemoglobin 25.1 pg (27.0-33.0); Mean Corpuscular Volume 79.9 fL (80.0-98.0); Mean Platelet Volume 10.1 fL (9.4-12.3); Monocytes Absolute Auto 0.4 X10*3/uL (0.1-1.2); Monocytes Percent Auto 5.7 % (2-11); Neutrophils Absolute Auto 4.4 x10*3/uL (2.0-8.3); Neutrophils Percent Auto 66.4 % (45-73); Platelet Count 579 X10*3/uL (160-400); Red Blood Count 3.83 X10*6/uL (4.20-5.50); Red Cell Distribution Width 14.6 % (11.0-16.0); White Blood Count 6.6 X10*3/uL (4.8-10.8)
[2022-07-06 18:30] LABS: Alanine Aminotransferase 8 U/L (0-31); Albumin Level 4.2 g/dL (3.5-5.0); Alkaline Phosphatase 55 U/L (39-117); Anion Gap 11 (12-20); Aspartate Amino Transferase 12 U/L (5-31); Bilirubin Direct < 0.2 mg/dL (0.0-0.5); Bilirubin Total 0.3 mg/dL (0.0-1.0); Blood Urea Nitrogen 17 mg/dL (9-16); Calcium 9.2 mg/dL (8.4-10.2); Carbon Dioxide 27 mmol/L (22-29); Chloride 107 mmol/L (96-108); Creatinine Clr Calc Pharmacy 79.5; Estimated Glomerular Filt Rate > 60; Glucose Random 94 mg/dL (60-115); Lipase 22 U/L (8-78); Magnesium 2.2 mg/dL (1.6-2.6); Potassium 4.7 mmol/L (3.3-5.1); Sodium 140 mmol/L (135-145); Total Protein 6.8 g/dL (6.5-8.0)
[2022-07-07 00:07] VITALS: BP 112/76; PULSE 73; RESP 16; TEMP 36.9; O2SAT 100
[2022-07-07] MEDS: Magnesium Hydrox/Alum Hydrox 30 ML ORAL.SUSP PO (00:10)
[2022-07-07] MEDS: Lidocaine HCl Viscous 2 % 15 ML SOLUTION MUCOUS MEM (00:10)
== END 2022-07-07 00:36 | disposition home or self-care (01) ==
PROVIDERS: Nurse Practitioner Family; Emergency Provider Internal Medicine; PCP Internal Medicine
DX: K21.9 Gastro-esophageal reflux disease without esophagitis (principal); Z79.899 Other long term (current) drug therapy
CPT/HCPCS: 36415; 80048; 80076; 83690; 83735; 85025; 99283

== ENCOUNTER 2022-07-21 08:16 | Outpatient (REF) | payer OTHER, SELFPAY ==
[2022-07-21 08:30] LABS: MANUAL DIFF FLAG NO
[2022-07-21 08:54] LABS: Basophils Percent Auto 1.1 % (0-2); Eosinophils Absolute Auto 0.1 X10*3/uL (0.0-0.4); Eosinophils Percent Auto 2.1 % (0-4); Hematocrit 33.5 % (37.0-47.0); Hemoglobin 10.3 g/dl (12.0-16.0); Imm Gran Abs Auto 0.01 X10*3/uL (0.00-0.03); Imm Gran Pct Auto 0.3 % (0.0-0.4); Immature Retic Fraction 12.5 % (3.0-15.9); Lymphocytes Absolute Auto 1.9 X10*3/uL (1.2-4.9); Lymphocytes Percent Auto 50.8 % (20-40); Mean Corpuscular HGB Conc 30.7 g/dl (31.0-35.0); Mean Corpuscular Volume 78.1 fL (80.0-98.0); Mean Platelet Volume 9.9 fL (9.4-12.3); Monocytes Absolute Auto 0.4 X10*3/uL (0.1-1.2); Monocytes Percent Auto 10.6 % (2-11); Neutrophils Absolute Auto 1.3 x10*3/uL (2.0-8.3); Neutrophils Percent Auto 35.1 % (45-73); Platelet Count 460 X10*3/uL (160-400); Red Blood Count 4.29 X10*6/uL (4.20-5.50); Red Cell Distribution Width 14.6 % (11.0-16.0); Reticulocyte Percent 0.8 % (0.5-1.8); Reticulocytes Absolute 0.035 X10*6/uL (0.026-0.095); White Blood Count 3.8 X10*3/uL (4.8-10.8)
[2022-07-21 09:06] LABS: Estimated Average Glucose 105 mg/dL; Hemoglobin A1c % 5.3 %
[2022-07-21 10:03] LABS: Vitamin B12 456 pg/mL (200-900)
[2022-07-21 10:17] LABS: Alanine Aminotransferase 11 U/L (0-31); Albumin Level 4.3 g/dL (3.5-5.0); Alkaline Phosphatase 60 U/L (39-117); Anion Gap 13 (12-20); Aspartate Amino Transferase 13 U/L (5-31); Bilirubin Total 0.4 mg/dL (0.0-1.0); Blood Urea Nitrogen 13 mg/dL (9-16); Calcium 9.5 mg/dL (8.4-10.2); Carbon Dioxide 27 mmol/L (22-29); Chloride 105 mmol/L (96-108); Cholesterol 153 mg/dL; Estimated Glomerular Filt Rate > 60; Ferritin 5 ng/mL (10-250); Free T4 (Free Thyroxine) 1.12 ng/dL (0.71-1.85); Glucose Random 99 mg/dL (60-115); HDL Cholesterol 40 mg/dL; Iron 30 mcg/dL (30-160); LDL Cholesterol Calculated 102 mg/dl; Percent Iron Saturation 8 % (15-50); Potassium 4.2 mmol/L (3.3-5.1); Sodium 141 mmol/L (135-145); Thyroid Stimulating Hormone 1.09 uIU/mL (0.32-4.0); Total Iron Binding Capacity 362 mcg/dL (228-428); Total Protein 6.7 g/dL (6.5-8.0); Triglycerides 56 mg/dL; Unsaturated Iron Binding 332 ug/dL; Vitamin D 25-OH Total 38.3 ng/mL (>30)
== END 2022-07-21 08:17 | disposition home or self-care (01) ==
LOC: HO.LAB 08:16
PROVIDERS: PCP Internal Medicine; Visit Provider Internal Medicine
DX: R13.10 Dysphagia, unspecified (principal); E78.00 Pure hypercholesterolemia, unspecified
CPT/HCPCS: 36415; 80053; 80061; 82306; 82607; 82728; 82746; 83036; 83540; 84439; 84443; 85025; 85045

== ENCOUNTER 2022-07-29 11:27 | Emergency (ER) | payer OTHER, SELFPAY ==
--- NOTE | ~2022-07-29 | US_ITS ---
EXAMINATION: US Limited gallbladder CLINICAL INFORMATION: Evaluate gallbladder. COMPARISON: None available at the time of this dictation. TECHNIQUE: Curvilinear transducer ultrasound utilized, gallbladder assess. FINDINGS: There are no gallstones, gallbladder is partially distended, the wall of which is normal 2 mm, no pericholecystic fluid collection, the fresco artist reported tenderness on the gallbladder otherwise unremarkable. US/US abdomen limited IMPRESSION: * Mild tenderness pressing on the gallbladder, no other ultrasound features to suggest cholecystitis, no stones or wall thickening. No pericholecystic fluid.
[2022-07-29 11:38] VITALS: BP 116/78; PULSE 75; RESP 18; TEMP 36.8; O2SAT 98; BMI 19.2
--- NOTE | 2022-07-29 11:38 | ED.GENADULT ---
HPI - General Adult General Chief complaint: Abdominal Pain <NOEL Huang - Last Filed: 07/29/22 11:46> Stated complaint: multiple complaints <NOEL Huang - Last Filed: 07/29/22 11:46> Time Seen by Provider: 07/29/22 12:53 <NOEL Huang - Last Filed: 07/29/22 11:46> Source: patient and lacing cutter <NOEL Huang - Last Filed: 07/29/22 11:46> Limitations: language barrier <NOEL Huang - Last Filed: 07/29/22 11:46> no limitations and language barrier (Hospital lacing cutter utilized) <Sina Harris MD - Last Filed: 07/29/22 15:22> History of Present Illness HPI narrative: This is a 41-year-old female with a history of gastric sleeve surgery done at [facility] about 8 or 9 months ago, who complains of complaints of progressive difficulty swallowing. The patient had initially had pain in her esophagus and has been diagnosed with esophagitis. The patient was seen at [facility] and did have upper endoscopy done which showed some inflammation however no explanation for difficulty swallowing was found and she was referred to an ear nose and throat doctor. Patient states that she is now having trouble even getting soft foods down such as yogurt and feels like she is getting malnourished. She complains of lightheadedness, headache. She also notes that she has some chronic upper abdominal pain and in the past was told she might need to have her gallbladder removed. She said the surgeon wanted to take care of her stomach 1st and then later take out her gallbladder. Patient also has a known history of anxiety dysphagia post gastrectomy malabsorption, among many other problems. <Sina Harris MD - Last Filed: 07/29/22 15:22> Related Data Home medications: Home Medications Medication Instructions Recorded Confirmed lactulose 10 gram/15 mL oral 10 g PO DAILY 08/27/20 07/27/22 solution zolpidem 10 mg tablet 10 mg PO BEDTIME PRN Sleep 08/27/20 07/27/22 quetiapine 50 mg tablet 1 tab PO BID 09/22/21 07/27/22 venlafaxine 150 mg 1 cap PO DAILY 09/22/21 07/27/22 capsule,extended release 24 hr clonazepam 1 mg tablet 1 mg PO TID 10/26/21 07/27/22 quetiapine 400 mg tablet 400 mg PO BEDTIME 10/26/21 07/27/22 ursodiol 300 mg capsule 300 mg PO BID 10/26/21 07/27/22 ziprasidone HCl 20 mg capsule 20 mg PO BID 10/26/21 07/27/22 acetaminophen 500 mg tablet 2 tab PO Q8H 02/11/22 07/27/22 cholecalciferol (vitamin D3) 50 1 tab PO DAILY 02/11/22 07/27/22 mcg (2,000 unit) tablet (Vitamin D3) famotidine 40 mg tablet 1 tab PO BEDTIME 02/11/22 07/27/22 hydroxyzine pamoate 50 mg capsule 1 cap PO BID PRN Anxiety 02/11/22 07/27/22 linaclotide 290 mcg capsule 1 cap PO DAILY 02/11/22 07/27/22 (Linzess) ondansetron 4 mg disintegrating 1 tab PO Q8H PRN nausea 02/11/22 07/27/22 tablet pantoprazole 40 mg tablet,delayed 40 mg PO DAILY@0630 02/11/22 07/27/22 release Previous Rx's Medication Instructions Recorded vitamin B complex (B 1 tab PO DAILY #30 tabs 07/13/21 Complex-Vitamin B12 tablet) blood pressure monitor (Blood #1 atif 10/31/21 Pressure Kit) blood-glucose meter (FreeStyle #1 atif 10/31/21 Lite Meter kit) lancets 28 gauge (FreeStyle #100 ea 10/31/21 Lancets) atorvastatin 20 mg tablet 20 mg PO DAILY #90 tabs 01/27/22 BATH CHAIR #1 atif 01/31/22 CANE #1 atif 01/31/22 LIFELINE ALERT SYSTEM #1 atif 01/31/22 WRIST BRACE #1 atif 01/31/22 ALCOHOL PADS #100 atif 02/21/22 sucralfate 1 gram tablet 1 g PO BID #180 tabs 02/21/22 glucagon 1 mg solution for 1 mg IVPUSH ONCE PRN hypoglycemia 03/09/22 injection (GlucaGen HypoKit) below 55 #1 ea lidocaine 5 % topical patch 1 patch topical DAILY 30 days #30 03/09/22 (Lidoderm) ea diphenhydramine HCl 25 mg capsule 25 mg PO BEDTIME PRN sleep #90 caps 03/10/22 (Benadryl) codeine 10 mg-guaifenesin 100 mg/5 10 ml PO Q6H PRN cough #237 mL 04/02/22 mL oral liquid acarbose 25 mg tablet 25 mg PO TID #90 tabs 04/13/22 oxycodone 5 mg tablet 5 mg PO Q6H PRN pain #14 tabs 04/25/22 terconazole 0.8 % vaginal cream 1 appful vaginal BEDTIME 04/25/22 Candidiasis vaginitis 3 days #20 grams sucralfate 100 mg/mL oral 10 ml PO BID #420 mL 05/17/22 suspension (Carafate) polyethylene glycol 3350 17 gram 17 g PO DAILY #30 ea 05/22/22 oral powder packet (Miralax) ROLLATOR #1 ea 05/23/22 food supplemt, lactose-reduced 1 ea PO TID 30 days #5,688 mL 05/23/22 (Ensure High Protein oral liquid) WRIST SPLINT Right and Left hand #1 ea 05/30/22 cyclobenzaprine 5 mg tablet 5 mg PO BEDTIME PRN muscle spasm 06/01/22 15 days #45 tabs ENSURE once a day #90 ea 06/08/22 SHOWER BAR #1 ea 06/08/22 SHOWER WAND #1 ea 06/08/22 ondansetron 4 mg disintegrating 4 mg PO Q8H PRN nausea and 06/10/22 tablet vomiting #10 tabs acetaminophen 160 mg/5 mL oral 500 mg (15.625 mL) PO QID PRN 06/26/22 suspension (Children's Tylenol) pain, temp 7 days #120 mL blood sugar diagnostic (FreeStyle #50 ea 07/04/22 Lite Strips) sucralfate 1 gram tablet 1 g PO TID #90 tabs 07/06/22 Bed pads #100 ea 07/17/22 Bedside commode #1 ea 07/17/22 SANITARY PADS #100 ea 07/17/22 dicyclomine 20 mg tablet 20 mg PO BID #60 tabs 07/21/22 tramadol 50 mg tablet 50 mg PO Q6H PRN pain 30 days #60 07/21/22 tabs ascorbate calcium (vitamin C) 814 407 mg PO DAILY #60 grams 07/25/22 mg/gram oral powder ferrous sulfate 15 mg iron (75 15 mg PO DAILY #120 mL 07/25/22 mg)/mL oral syringe (ORAL USE) bisacodyl 10 mg rectal suppository 10 mg MA DAILY PRN constipation 07/27/22 (Dulcolax (bisacodyl)) #12 ea fluticasone propionate 50 1 spray intranasal DAILY #100 mL 07/27/22 mcg/actuation nasal spray,suspension (Flonase Allergy Relief) lidocaine HCl 2 % mucosal solution 1 appl mucous membrane TID PRN 07/27/22 (Lidocaine Viscous) pain #100 mL simethicone 40 mg/0.6 mL oral 0.6 ml PO BID-TID PRN abdominal 07/27/22 drops,suspension distention #15 mL Magic Mouthwash 5 ml PO .Q.a.c. #240 mL 07/29/22 Diphen/Lido/Antacid 1:1:1 240 mL suspension lorazepam 1 mg tablet 1 mg PO TID PRN anxiety #10 tabs 07/29/22 <NOEL Huang - Last Filed: 07/29/22 11:46> Allergies/adverse reactions: Allergies Allergy/AdvReac Type Severity Reaction Status Date / Time tomato [TOMATO] Allergy Mild HIVES Verified 07/29/22 11:38 DIFFICULTY BREATHING hydrocodone [HYDROCODONE] Allergy Unknown RASH, Unverified 07/29/22 11:38 AIRWAY CLOSES ibuprofen [From MOTRIN] Allergy Unknown STOMACH Verified 07/29/22 11:38 UPSET, vomiting trazodone [TRAZODONE] Allergy Unknown UNKNOWN, Unverified 07/29/22 11:38 stomach upset black pepper [BLACK PEPPER] AdvReac Severe DIFFICULTY Verified 07/29/22 11:38 BREATHING, hives lisinopril AdvReac Severe Anaphylaxis Verified 07/29/22 11:38 <NOEL Huang - Last Filed: 07/29/22 11:46> Review of Systems Review of Systems: Yes all other systems are reviewed and are negative <Sina Harris MD - Last Filed: 07/29/22 15:22> Constitutional: Constitutional: Denies fever(s) and Reports headache(s) <Sina Harris MD - Last Filed: 07/29/22 15:22> Eyes: Eyes: Reports as per HPI and Reports no additional eye complaints <Sina Harris MD - Last Filed: 07/29/22 15:22> ENT: Reports system reviewed and no additional complaints, except as documented, Reports as per HPI, Reports dizziness, Reports headache(s), Denies nasal congestion, Denies nasal discharge and Denies sore throat <Sina Harris MD - Last Filed: 07/29/22 15:22> Comments: Trouble swallowing <Sina Harris MD - Last Filed: 07/29/22 15:22> Cardiovascular: Cardiovascular: Reports as per HPI, Denies chest pain and Denies dyspnea <Sina Harris MD - Last Filed: 07/29/22 15:22> Respiratory: Respiratory: Reports as per HPI, Denies cough and Denies dyspnea <Sina Harris MD - Last Filed: 07/29/22 15:22> Gastrointestinal: Gastrointestinal: Reports as per HPI, Reports abdominal pain (Chronic), Denies diarrhea and Denies vomiting <Sina Harris MD - Last Filed: 07/29/22 15:22> Musculoskeletal: Musculoskeletal: Reports no additional musculoskeletal complaints and Denies numbness <Sina Harris MD - Last Filed: 07/29/22 15:22> Integumentary/Breasts: Skin/Breast: Reports as per HPI and Denies rash <Sina Harris MD - Last Filed: 07/29/22 15:22> Neurologic: Reports as per HPI, Reports dizziness, Reports headache(s), Denies focal weakness and Denies numbness <Sina Harris MD - Last Filed: 07/29/22 15:22> Psychiatric: Psychiatric: Reports no additional psychiatric complaints and Reports as per HPI <Sina Harris MD - Last Filed: 07/29/22 15:22> Endocrine: Endocrine: Reports no additional endocrine complaints and Reports as per HPI <Sina Harris MD - Last Filed: 07/29/22 15:22> Hematologic/Lymphatic: Hematologic/Lymphatic: Reports no additional hematologic/lymphatic complaints, Reports as per HPI and Reports other (No peripheral edema) <Sina Harris MD - Last Filed: 07/29/22 15:22> [facility] Past Medical History Medical History: 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 Diverticulosis GERD (gastroesophageal reflux disease) History of bipolar disorder History of schizophrenia Hypercholesterolemia Hypertension Insomnia Numbness of left hand Renal calculi Spondylosis of lumbar spine Type 2 diabetes mellitus with hyperglycemia Vitamin D deficiency <NOEL Huang - Last Filed: 07/29/22 11:46> Surgical History: Surgical History H/O: hysterectomy History of tubal ligation Hx of bariatric surgery <NOEL Huang - Last Filed: 07/29/22 11:46> Family History Family History: Family History Father Medical history unknown Mother Medical history unknown Paternal Aunt Uterine cancer Diabetes Hypertension Paternal Uncle Liver cancer Heart attack Maternal Aunt Stroke Family/Other Chronic mental illness Sister Uterine cancer Schizophrenia Brother Substance abuse Other Mental health disorder <NOEL Huang - Last Filed: 07/29/22 11:46> Social History Social History: Social History Household Members: None Housing: Apartment Do you presently have visiting nurse or other home services: Yes Alcohol intake: never Patient Tobacco Use Status: Never used Tobacco Smoked in Last 30 Days: No e-Cigarette/Vaping Use: Never Used Second Hand Smoke Exposure: No Use of substances other than those prescribed or required for medical reasons: No Advance Directives: No service: No Current occupational status: disabled Current occupational exposures/hazards: No Cognitive needs: No Hearing needs: No Vision needs: No <NOEL Huang - Last Filed: 07/29/22 11:46> Physical Exam ED Vital Signs: Vital Signs - 24 hr 07/29/22 11:38 07/29/22 13:59 Temperature 98.2 F Pulse Rate 75 83 Respiratory Rate 18 20 Blood Pressure 116/78 120/85 Pulse Oximetry 98 100 Oxygen Delivery Method Room Air BMI result Body Mass Index 19.2 <NOEL Huang - Last Filed: 07/29/22 11:46> Vital Signs - 24 hr 07/29/22 11:38 07/29/22 13:59 Temperature 98.2 F Pulse Rate 75 83 Respiratory Rate 18 20 Blood Pressure 116/78 120/85 Pulse Oximetry 98 100 Oxygen Delivery Method Room Air BMI result Body Mass Index 19.2 <Sina Harris MD - Last Filed: 07/29/22 15:22> Const Other: Patient appears anxious, and depressed, is at times tearful <Sina Harris MD - Last Filed: 07/29/22 15:22> General: no acute distress <Sina Harris MD - Last Filed: 07/29/22 15:22> Orientation/consciousness: patient oriented x3 <Sina Harris MD - Last Filed: 07/29/22 15:22> HENMT Head: Yes normal to inspection <Sina Harris MD - Last Filed: 07/29/22 15:22> General nose exam: Normal external nose present <Sina Harirs MD - Last Filed: 07/29/22 15:22> Mouth: moist mucous membranes <Sina Harris MD - Last Filed: 07/29/22 15:22> Throat: Yes posterior oropharynx normal, Yes tonsils normal and Yes uvula midline <Sian Harris MD - Last Filed: 07/29/22 15:22> Eyes Eyelids: Yes eyelids normal <Sina Harris MD - Last Filed: 07/29/22 15:22> Conjunctivae: conjunctivae normal <Sina Harris MD - Last Filed: 07/29/22 15:22> Pupils: Equal, round and reactive pupils present <Sina Harris MD - Last Filed: 07/29/22 15:22> Neck Neck: Yes supple <Sina Harris MD - Last Filed: 07/29/22 15:22> Resp Effort & Inspection: normal respiratory effort <Sina Harris MD - Last Filed: 07/29/22 15:22> Auscultation: clear to auscultation bilaterally <Sina Harris MD - Last Filed: 07/29/22 15:22> Cardio Rate: regular rate <MD Matt Irvin Last Filed: 07/29/22 15:22> Rhythm: regular rhythm <Sina Harris MD - Last Filed: 07/29/22 15:22> Heart sounds: S1 normal heart sound present, S2 normal heart sound present, no gallops, no murmurs and no rubs <Sina Harris MD - Last Filed: 07/29/22 15:22> GI Inspection: No distended <Sina Harris MD - Last Filed: 07/29/22 15:22> Palpation (GI): Soft to palpation and nontender <Sina Harris MD - Last Filed: 07/29/22 15:22> Auscultation: normal bowel sounds <Sina Harris MD - Last Filed: 07/29/22 15:22> Skin General skin exam: other (Warm and dry) <Sina Harris MD - Last Filed: 07/29/22 15:22> Neuro General: patient oriented x3 and CN's II-XI intact bilaterally <Sina Harris MD - Last Filed: 07/29/22 15:22> Cranial nerves: Yes Equal, round and reactive pupils present <Sina Harris MD - Last Filed: 07/29/22 15:22> Extrem General: Yes no pedal edema <Sina Harris MD - Last Filed: 07/29/22 15:22> Psych Affect: normal affect <Sina Harris MD - Last Filed: 07/29/22 15:22> Attitude: cooperative <Sina Harris MD - Last Filed: 07/29/22 15:22> Course Course Course Narrative: RME performed by Lolly Thacker PA-C. Patient is a 41 year old female presenting to the Emergency Department with complaints of feeling like something is stuck in her throat and that she may have something wrong with her gallbladder because she is having intermittent RUQ abdominal pain. Patient states that she has been evaluated for this multiple times here and at [facility]. Labs and imaging ordered. Patient placed back in waiting room pending results and bed availability. <NOEL Huang - Last Filed: 07/29/22 11:46> Medications Administered Discontinued Medications Generic Name Dose Route Start Last Admin Trade Name Freq PRN Reason Stop Dose Admin Sodium Chloride 1,000 mls @ 999 mls/hr 07/29/22 14:00 07/29/22 15:15 Ns IV 07/29/22 15:00 Infused .Q1H1M OSBALDO Infusion Lidocaine/Diphenhydr/Alum/Mg/Simeth 10 ml 07/29/22 14:01 07/29/22 14:49 Mag&Al/Sim/Diphenhyd/Lidocaine 10 Ml Oral.Susp PO 07/29/22 14:02 10 ml ONCE ONE Administration Protocol Lorazepam 1 mg 07/29/22 13:53 07/29/22 14:14 Lorazepam 2 Mg/Ml Vial IVPUSH 07/29/22 13:54 1 mg ONCE ONE Administration <NOEL Huang - Last Filed: 07/29/22 11:46> Medications Administered Discontinued Medications Generic Name Dose Route Start Last Admin Trade Name Fabiola PRN Reason Stop Dose Admin Sodium Chloride 1,000 mls @ 999 mls/hr 07/29/22 14:00 07/29/22 15:15 Ns IV 07/29/22 15:00 Infused .Q1H1M OSBALDO Infusion Lidocaine/Diphenhydr/Alum/Mg/Simeth 10 ml 07/29/22 14:01 07/29/22 14:49 Mag&Al/Sim/Diphenhyd/Lidocaine 10 Ml Oral.Susp PO 07/29/22 14:02 10 ml ONCE ONE Administration Protocol Lorazepam 1 mg 07/29/22 13:53 07/29/22 14:14 Lorazepam 2 Mg/Ml Vial IVPUSH 07/29/22 13:54 1 mg ONCE ONE Administration <Sina Harris MD - Last Filed: 07/29/22 15:22> Medical Decision Making Medical Decision Making [facility] Narrative: Patient had improvement in symptoms with Magic mouthwash and lorazepam 1 mg IV. She was also given normal saline IV bolus. Labs did not show any evidence of dehydration. Suspect large component of anxiety. Inpatient evaluation unnecessary, patient has follow-up with ENT, and has already been seen by her surgeon/GI and had endoscopy to evaluate her esophagus. Patient has chronic pain, do not suspect any acute complication of her gastric sleeve <Sina Harris MD - Last Filed: 07/29/22 15:22> Differential Diagnosis Differential Diagnoses: The differential diagnosis associated with the presentation includes <Sina Harris MD - Last Filed: 07/29/22 15:22> Anxiety, esophageal stricture, esophageal foreign body, malfunction of gastric sleeve, neck or thoracic mass with esophageal impingement <Sina Harris MD - Last Filed: 07/29/22 15:22> Lab Data [facility] Lab Attestation statement: I reviewed the patient's lab results. <Sina Harris MD - Last Filed: 07/29/22 15:22> Result Diagrams: : 07/29/22 12:09 07/29/22 12:09 <NOEL Huang - Last Filed: 07/29/22 11:46> Labs: Lab Results 07/29/22 07/29/22 Range/Units 12:09 12:09 WBC 5.3 (4.8-10.8) X10*3/uL RBC 4.47 (4.20-5.50) X10*6/uL Hgb 10.5 L (12.0-16.0) g/dl Hct 35.2 L (37.0-47.0) % MCV 78.7 L (80.0-98.0) fL MCH 23.5 L (27.0-33.0) pg MCHC 29.8 L (31.0-35.0) g/dl RDW 15.2 (11.0-16.0) % Plt Count 352 (160-400) X10*3/uL MPV 10.8 (9.4-12.3) fL Immature Gran % (Auto) 0.2 (0.0-0.4) % Neut % (Auto) 67.0 (45-73) % Lymph % (Auto) 24.2 (20-40) % [place] % (Auto) 7.3 (2-11) % Eos % (Auto) 0.6 (0-4) % Baso % (Auto) 0.7 (0-2) % Lymph # (Auto) 1.3 (1.2-4.9) X10*3/uL [place] # (Auto) 0.4 (0.1-1.2) X10*3/uL Eos # (Auto) 0.0 (0.0-0.4) X10*3/uL Baso # (Auto) 0.0 (0.0-0.2) X10*3/uL Abs Immat Gran (auto) 0.01 (0.00-0.03) X10*3/uL Absolute Neuts (auto) 3.6 (2.0-8.3) x10*3/uL Absolute Nucleated RBC 0.000 (0.0-0.012) X10*3/uL Nucleated RBC % (auto) 0.0 (0.0-0.2) /100WBC Sodium 139 (135-145) mmol/L Potassium 4.1 (3.3-5.1) mmol/L Chloride 108 (96-108) mmol/L Carbon Dioxide 22 (22-29) mmol/L Anion Gap 13 (12-20) BUN 13 (9-16) mg/dL Creatinine 0.73 (0.5-1.4) mg/dL Estim Creat Clear Calc 76.2 Estimated GFR > 60 Random Glucose 103 (60-115) mg/dL Calcium 9.2 (8.4-10.2) mg/dL Magnesium 1.9 (1.6-2.6) mg/dL Total Bilirubin 0.4 (0.0-1.0) mg/dL AST 14 (5-31) U/L ALT 8 (0-31) U/L Alkaline Phosphatase 57 (39-117) U/L Total Protein 7.0 (6.5-8.0) g/dL Albumin 4.3 (3.5-5.0) g/dL <NOEL Huang - Last Filed: 07/29/22 11:46> Lab Results 07/29/22 07/29/22 Range/Units 12:09 12:09 WBC 5.3 (4.8-10.8) X10*3/uL RBC 4.47 (4.20-5.50) X10*6/uL Hgb 10.5 L (12.0-16.0) g/dl Hct 35.2 L (37.0-47.0) % MCV 78.7 L (80.0-98.0) fL MCH 23.5 L (27.0-33.0) pg MCHC 29.8 L (31.0-35.0) g/dl RDW 15.2 (11.0-16.0) % Plt Count 352 (160-400) X10*3/uL MPV 10.8 (9.4-12.3) fL Immature Gran % (Auto) 0.2 (0.0-0.4) % Neut % (Auto) 67.0 (45-73) % Lymph % (Auto) 24.2 (20-40) % [place] % (Auto) 7.3 (2-11) % Eos % (Auto) 0.6 (0-4) % Baso % (Auto) 0.7 (0-2) % Lymph # (Auto) 1.3 (1.2-4.9) X10*3/uL [place] # (Auto) 0.4 (0.1-1.2) X10*3/uL Eos # (Auto) 0.0 (0.0-0.4) X10*3/uL Baso # (Auto) 0.0 (0.0-0.2) X10*3/uL Abs Immat Gran (auto) 0.01 (0.00-0.03) X10*3/uL Absolute Neuts (auto) 3.6 (2.0-8.3) x10*3/uL Absolute Nucleated RBC 0.000 (0.0-0.012) X10*3/uL Nucleated RBC % (auto) 0.0 (0.0-0.2) /100WBC Sodium 139 (135-145) mmol/L Potassium 4.1 (3.3-5.1) mmol/L Chloride 108 (96-108) mmol/L Carbon Dioxide 22 (22-29) mmol/L Anion Gap 13 (12-20) BUN 13 (9-16) mg/dL Creatinine 0.73 (0.5-1.4) mg/dL Estim Creat Clear Calc 76.2 Estimated GFR > 60 Random Glucose 103 (60-115) mg/dL Calcium 9.2 (8.4-10.2) mg/dL Magnesium 1.9 (1.6-2.6) mg/dL Total Bilirubin 0.4 (0.0-1.0) mg/dL AST 14 (5-31) U/L ALT 8 (0-31) U/L Alkaline Phosphatase 57 (39-117) U/L Total Protein 7.0 (6.5-8.0) g/dL Albumin 4.3 (3.5-5.0) g/dL <Sina Harris MD - Last Filed: 07/29/22 15:22> Radiology Impression Discussion of test interpretation with radiology: I have reviewed the radiologist's reading. <Sina Harris MD - Last Filed: 07/29/22 15:22> Radiologist Impression: Abdominal ultrasound IMPRESSION: ? *? Mild tenderness pressing on the gallbladder, no other ultrasound features to suggest cholecystitis, no stones or wall thickening. No pericholecystic fluid. <Sina Harris MD - Last Filed: 07/29/22 15:22> Discharge Plan Discharge Clinical Impression: Dysphagia, Anxiety <NOEL Huang - Last Filed: 07/29/22 11:46> Patient Disposition: Home, Self-Care <NOEL Huang - Last Filed: 07/29/22 11:46> Instructions: Anxiety (ED), Dysphagia (ED) <NOEL Huang - Last Filed: 07/29/22 11:46> Additional Instructions: Tried eat soft foods and liquids. Use the magic mouthwash as prescribed. Continue other medications. Follow-up with ear nose and throat as scheduled. <NOEL Huang - Last Filed: 07/29/22 11:46> Prescriptions: New Magic Mouthwash Diphen/Lido/Antacid 1:1:1 240 mL suspension 5 ml PO .Q.a.c. Qty: 240 1RF Rx Instructions: Lidocaine Viscous 2 % 80mL; diphenhydramine 12.5 mg/5 mL 80mL; aluminum-mag hydrox-simeth [id number]/5mL 80mL. 5-10 mL gargle and swallow up to 4 times a day lorazepam 1 mg tablet 1 mg PO TID PRN (Reason: anxiety) Qty: 10 0RF No Action vitamin B complex [B Complex-Vitamin B12] Tablet 1 tab PO DAILY Qty: 30 6RF Rx Instructions: 1,000mcg dose daily (DME) blood pressure monitor [Blood Pressure Kit] Kit See Rx Instructions .Route Qty: 1 0RF Rx Instructions: As directed (DME) blood-glucose meter [FreeStyle Lite Meter] Kit See Rx Instructions .ROUTE .MEDSUPPLY Qty: 1 0RF Rx Instructions: As directed (DME) lancets [FreeStyle Lancets] 28 gauge misc See Rx Instructions .ROUTE .MEDSUPPLY Qty: 100 3RF Rx Instructions: As directed check BS QD atorvastatin 20 mg tablet 20 mg PO DAILY Qty: 90 3RF (DME) CANE See Rx Instructions .Route .MEDSUPPLY Qty: 1 0RF Rx Instructions: As directed (DME) WRIST BRACE See Rx Instructions .Route .MEDSUPPLY Qty: 1 0RF Rx Instructions: As directed (DME) BATH CHAIR See Rx Instructions .Route .MEDSUPPLY Qty: 1 0RF Rx Instructions: As directed (DME) LIFELINE ALERT SYSTEM See Rx Instructions .Route .MEDSUPPLY Qty: 1 0RF Rx Instructions: As directed (DME) ALCOHOL PADS See Rx Instructions .Route .MEDSUPPLY Qty: 100 3RF Rx Instructions: As directed sucralfate 1 gram tablet 1 g PO BID Qty: 180 3RF lidocaine [Lidoderm] 5 % adhesive patch,medicated 1 patch topical DAILY 30 Days Qty: 30 3RF Rx Instructions: leave on most painful area for up to 12 hrs diphenhydramine HCl [Benadryl] 25 mg capsule 25 mg PO BEDTIME PRN (Reason: sleep) Qty: 90 2RF polyethylene glycol 3350 [Miralax] 17 gram powder in packet 17 g PO DAILY Qty: 30 5RF (DME) ROLLATOR See Rx Instructions .Route .MEDSUPPLY Qty: 1 0RF Rx Instructions: As directed Ensure High Protein Liquid 1 ea PO TID 30 Days Qty: 5688 0RF (DME) WRIST SPLINT Right and Left hand See Rx Instructions .Route .MEDSUPPLY Qty: 1 0RF Rx Instructions: As directed cyclobenzaprine 5 mg tablet 5 mg PO BEDTIME PRN (Reason: muscle spasm) 15 Days Qty: 45 0RF (DME) SHOWER WAND See Rx Instructions .Route .MEDSUPPLY Qty: 1 0RF Rx Instructions: As directed (DME) SHOWER BAR See Rx Instructions .Route .MEDSUPPLY Qty: 1 0RF Rx Instructions: As directed (DME) ENSURE once a day See Rx Instructions .Route .MEDSUPPLY Qty: 90 0RF Rx Instructions: As directed acetaminophen [Children's Tylenol] 160 mg/5 mL suspension 500 mg PO QID PRN (Reason: pain, temp) 7 Days Qty: 120 0RF (DME) FreeStyle Lite Strips Strip See Rx Instructions .ROUTE .MEDSUPPLY Qty: 50 3RF Rx Instructions: As directed check QD (DME) Bedside commode See Rx Instructions .Route .MEDSUPPLY Qty: 1 0RF Rx Instructions: As directed (DME) Bed pads See Rx Instructions .Route .MEDSUPPLY Qty: 100 12RF Rx Instructions: As directed (DME) SANITARY PADS See Rx Instructions .Route .MEDSUPPLY Qty: 100 12RF Rx Instructions: As directed dicyclomine 20 mg tablet 20 mg PO BID Qty: 60 2RF tramadol 50 mg tablet 50 mg PO Q6H PRN (Reason: pain) 30 Days Qty: 60 1RF ferrous sulfate 15 mg iron (75 mg)/mL syringe 15 mg PO DAILY Qty: 120 0RF ascorbate calcium (vitamin C) 814 mg/gram powder 407 mg PO DAILY Qty: 60 0RF venlafaxine 150 mg capsule,extended release 24hr 1 cap PO DAILY quetiapine 50 mg tablet 1 tab PO BID codeine-guaifenesin 10-100 mg/5 mL liquid 10 ml PO Q6H PRN (Reason: cough) Qty: 237 0RF terconazole 0.8 % cream 1 appful vaginal BEDTIME 3 Days Qty: 20 0RF oxycodone 5 mg tablet 5 mg PO Q6H PRN (Reason: pain) Qty: 14 0RF Rx Instructions: Partial Fill upon patient request. sucralfate [Carafate] 100 mg/mL suspension 10 ml PO BID Qty: 420 0RF ondansetron 4 mg tablet,disintegrating 4 mg PO Q8H PRN (Reason: nausea and vomiting) Qty: 10 0RF sucralfate 1 gram tablet 1 g PO TID Qty: 90 0RF famotidine 40 mg tablet 1 tab PO BEDTIME hydroxyzine pamoate 50 mg capsule 1 cap PO BID PRN (Reason: Anxiety) acetaminophen 500 mg tablet 2 tab PO Q8H ondansetron 4 mg tablet,disintegrating 1 tab PO Q8H PRN (Reason: nausea) cholecalciferol (vitamin D3) [Vitamin D3] 50 mcg (2,000 unit) tablet 1 tab PO DAILY Linzess 290 mcg capsule 1 cap PO DAILY pantoprazole 40 mg tablet,delayed release (DR/EC) 40 mg PO DAILY@0630 zolpidem 10 mg tablet 10 mg PO BEDTIME PRN (Reason: Sleep) lactulose 10 gram/15 mL solution 10 g PO DAILY ziprasidone HCl 20 mg capsule 20 mg PO BID quetiapine 400 mg tablet 400 mg PO BEDTIME ursodiol 300 mg capsule 300 mg PO BID clonazepam 1 mg tablet 1 mg PO TID bisacodyl [Dulcolax (bisacodyl)] 10 mg suppository 10 mg MA DAILY PRN (Reason: constipation) Qty: 12 0RF simethicone 40 mg/0.6 mL drops,suspension 0.6 ml PO BID-TID PRN (Reason: abdominal distention) Qty: 15 0RF fluticasone propionate [Flonase Allergy Relief] 50 mcg/actuation spray,suspension 1 spray intranasal DAILY Qty: 100 0RF Rx Instructions: administer into each nostril lidocaine HCl [Lidocaine Viscous] 2 % solution 1 appl mucous membrane TID PRN (Reason: pain) Qty: 100 0RF GlucaGen HypoKit 1 mg recon soln 1 mg IVPUSH ONCE PRN (Reason: hypoglycemia below 55) Qty: 1 0RF acarbose 25 mg tablet 25 mg PO TID Qty: 90 3RF <NOEL Huang - Last Filed: 07/29/22 11:46> Interventions: ED Discharge Assessment Last Done: 07/29/22 15:16 <NOEL Huang - Last Filed: 07/29/22 11:46> Discharge Date/Time: 07/29/22 15:16 <NOEL Huang - Last Filed: 07/29/22 11:46>
[2022-07-29 12:13] LABS: MANUAL DIFF FLAG NO
[2022-07-29 12:17] LABS: Basophils Percent Auto 0.7 % (0-2); Eosinophils Percent Auto 0.6 % (0-4); Hematocrit 35.2 % (37.0-47.0); Hemoglobin 10.5 g/dl (12.0-16.0); Imm Gran Abs Auto 0.01 X10*3/uL (0.00-0.03); Imm Gran Pct Auto 0.2 % (0.0-0.4); Lymphocytes Absolute Auto 1.3 X10*3/uL (1.2-4.9); Lymphocytes Percent Auto 24.2 % (20-40); Mean Corpuscular HGB Conc 29.8 g/dl (31.0-35.0); Mean Corpuscular Hemoglobin 23.5 pg (27.0-33.0); Mean Corpuscular Volume 78.7 fL (80.0-98.0); Mean Platelet Volume 10.8 fL (9.4-12.3); Monocytes Absolute Auto 0.4 X10*3/uL (0.1-1.2); Monocytes Percent Auto 7.3 % (2-11); Neutrophils Absolute Auto 3.6 x10*3/uL (2.0-8.3); Platelet Count 352 X10*3/uL (160-400); Red Blood Count 4.47 X10*6/uL (4.20-5.50); Red Cell Distribution Width 15.2 % (11.0-16.0); White Blood Count 5.3 X10*3/uL (4.8-10.8)
[2022-07-29 12:31] LABS: Alanine Aminotransferase 8 U/L (0-31); Albumin Level 4.3 g/dL (3.5-5.0); Alkaline Phosphatase 57 U/L (39-117); Anion Gap 13 (12-20); Aspartate Amino Transferase 14 U/L (5-31); Bilirubin Total 0.4 mg/dL (0.0-1.0); Blood Urea Nitrogen 13 mg/dL (9-16); Calcium 9.2 mg/dL (8.4-10.2); Carbon Dioxide 22 mmol/L (22-29); Chloride 108 mmol/L (96-108); Creatinine Clr Calc Pharmacy 76.2; Estimated Glomerular Filt Rate > 60; Glucose Random 103 mg/dL (60-115); Magnesium 1.9 mg/dL (1.6-2.6); Potassium 4.1 mmol/L (3.3-5.1); Sodium 139 mmol/L (135-145)
[2022-07-29 13:59] VITALS: BP 120/85; PULSE 83; RESP 20; O2SAT 100
[2022-07-29] MEDS: LORazepam 2 MG/ML VIAL 1 MG IVPUSH (14:14)
[2022-07-29] MEDS: 0.9 % Sodium Chloride 1,000 ML 999 ML IV (14:14)
[2022-07-29] MEDS: Mag&Al/Sim/Diphenhyd/Lidocaine 10 ML ORAL.SUSP PO (14:49)
== END 2022-07-29 15:16 | disposition home or self-care (01) ==
PROVIDERS: Physician Assistant Medical; Emergency Provider Emergency Medicine; PCP Internal Medicine
DX: R13.10 Dysphagia, unspecified (principal); F41.9 Anxiety disorder, unspecified; R10.9 Unspecified abdominal pain; E78.00 Pure hypercholesterolemia, unspecified; I10 Essential (primary) hypertension; Z90.3 Acquired absence of stomach [part of]; Z79.02 Long term (current) use of antithrombotics/antiplatelets
CPT/HCPCS: 36415; 76705; 80053; 83735; 85025; 96361; 96374; 99284; J2060

== ENCOUNTER → 2022-08-07 14:37 | Outpatient (BNVA) | payer OTHER, SELFPAY | PROVIDERS: PCP Internal Medicine; Visit Provider Obstetrics & Gynecology | DX: N83.299 Other ovarian cyst, unspecified side (principal) | CPT/HCPCS: 99212 ==

== ENCOUNTER → 2022-08-09 15:12 | Outpatient (BNV) | payer OTHER, SELFPAY | PROVIDERS: PCP Internal Medicine; Visit Provider Internal Medicine | DX: D50.9 Iron deficiency anemia, unspecified (principal); Z98.84 Bariatric surgery status | CPT/HCPCS: 99204; 99213 ==

== ENCOUNTER → 2022-08-15 09:31 | Outpatient (BNVA) | payer OTHER, SELFPAY | PROVIDERS: PCP Internal Medicine; Visit Provider Internal Medicine Endocrinology, Diabetes & Metabolism | DX: E16.2 Hypoglycemia, unspecified (principal); Z98.84 Bariatric surgery status | CPT/HCPCS: 99212 ==

== ENCOUNTER 2022-08-19 15:36 | Emergency (ER) | payer OTHER, SELFPAY ==
--- NOTE | ~2022-08-19 | CT_ITS ---
EXAMINATION: CT ABDOMEN AND PELVIS WITH CONTRAST CLINICAL INFORMATION: Left upper quadrant abdominal pain. COMPARISON: CT of the abdomen and pelvis done on 05/31/2022. TECHNIQUE: Multidetector volumetric images were obtained from the superior aspect of the liver through the pubic symphysis following administration 85 mL of Omnipaque 350 intravenous contrast. Sagittal and coronal reformatted images were obtained on the technologist's workstation. Oral contrast: No This CT examination was performed using dose optimization techniques as appropriate, variously including the following: *Automated exposure control *Adjustment of mA and/or kV according to patient size (this includes techniques or standardized protocols for targeted exams where dose is matched to indication/reason for exam; i.e. extremities or head) *Use of iterative reconstruction technique DLP: 299 mGy-cm FINDINGS: LUNG BASES: The visualized lung bases are unremarkable. LIVER, GALLBLADDER, AND BILIARY TREE: A few scattered subcentimeter circumscribed hypodensities are present, too small for accurate characterization, was not visualized on prior noncontrast study dated 05/31/2022. The gallbladder is unremarkable with no evidence of radiopaque gallstones, gallbladder wall thickening, or obvious pericholecystic inflammatory changes. PANCREAS: There are 2 circumscribed sub-5 mm dense calcific foci identified in the region of the head and proximal part of the body of the pancreas (228:4 and 235:4), likely represent parenchymal calcifications, and thereby suspicious for subtle chronic calcific pancreatitis. No evidence of any pancreatic ductal dilatation or inflammatory changes. SPLEEN: Unremarkable. ADRENAL GLANDS: Unremarkable. KIDNEYS AND URETERS: The kidneys are normal in size, shape, and attenuation. No hydronephrosis, hydroureter, or calculi seen. No perinephric stranding. Previously documented tiny punctate nonobstructing radiopaque calculus in the right inferior calyx is not reproduced in the current study. Mild asymmetric fullness of the right renal pelvicalyceal system is present, indeterminate etiology. BLADDER: Unremarkable. GASTROINTESTINAL TRACT: Postsurgical changes of sleeve gastrectomy is seen. The residual stomach is not dilated. The small and large bowel loops are decompressed. The appendix is visualized at right lower quadrant and is unremarkable (478:4). ABDOMINAL WALL: No significant hernia is appreciated. LYMPH NODES: There are no pathologically enlarged retroperitoneal or mesenteric or pelvic or inguinal lymphadenopathy. VASCULAR: Unremarkable. PELVIC VISCERA: There is no pelvic mass present. No evidence of any free fluid and/or free air. OSSEOUS STRUCTURES: Endplate sclerosis at L5-S1 and endplate sclerosis associated with osteophyte at T11-T12 appear similar to prior study dated 05/31/2022. CT/CT abdomen pelvis w IV con IMPRESSION: There are 2 punctate sub-5 mm circumscribed dense calcific foci identified in the region of the head and proximal part of the body of the pancreas, likely represent parenchymal calcifications and thereby suspicious for subtle chronic calcific pancreatitis. A few scattered subcentimeter circumscribed focal hepatic hypodensities are also present, too small for accurate characterization, was not visualized on prior noncontrast study dated 05/31/2022. Previously documented tiny punctate nonobstructing radiopaque calculus within the inferior calyx of the right kidney is not reproduced in the current study. Mild asymmetric fullness of the right renal pelvicalyceal system however is present, of indeterminate etiology. Postsurgical changes of sleeve gastrectomy and no CT evidence of bowel obstruction, unchanged since 05/31/2022. Fleischner guidelines were followed.
[2022-08-19 16:05] VITALS: BP 128/59; PULSE 81; RESP 18; TEMP 36.5; O2SAT 98; BMI 19.3
--- NOTE | 2022-08-19 16:08 | ED_ITS ---
HPI - Abdominal Pain General Chief Complaint: General Medical <Kaylah Alejo CNP - Last Filed: 08/19/22 16:09> Stated Complaint: sore throat,abd pain <Kaylah Alejo CNP - Last Filed: 08/19/22 16:09> Time Seen by Provider: 08/19/22 16:40 <Kaylah Alejo CNP - Last Filed: 08/19/22 16:09> Source: patient <NOEL Funes - Last Filed: 08/19/22 20:20> Mode of arrival: ambulatory <NOEL Funes - Last Filed: 08/19/22 20:20> Limitations: no limitations <NOEL Funes - Last Filed: 08/19/22 20:20> History of Present Illness HPI narrative: This is a 41-year-old female history of gastric sleeve in September 2021 by Jerri Callaway out of [facility], postgastretomy malabsorption, memory impairment, anxiety, vit B12 deficiency, GERD presenting to the emergency department with multiple complaints, patient reports difficulty swelling, she tells me she feels like her throat is filled with thick mucus and she is unable to swallow, she tells me this has been going on since she got her gastric sleeve done last year however has been worsening. She tells me that when she tries to eat solid foods she feels like it gets stuck, so she has to put her fingers down her throat to vomit, she tells me because of this she is now having a sore throat and burning to the back of her throat. Patient tells me she has been having intermittent nausea and vomiting for the past few days. Reports vomiting bilious vomit. Patient also reporting epigastric and left upper quadrant pain, all of these symptoms have been going on for few days worsening. Patient tells me abdominal pain intermittent, sharp in nature, patient denies having history of high triglycerides or alcohol abuse. Patient denies fevers, chills, chest pain, shortness of breath, headache, vision changes, dizziness. <NOEL Funes Last Filed: 08/19/22 20:20> Related Data Home Medications: Home Medications Medication Instructions Recorded Confirmed lactulose 10 gram/15 mL oral 10 g PO DAILY 08/27/20 07/27/22 solution zolpidem 10 mg tablet 10 mg PO BEDTIME PRN Sleep 08/27/20 07/27/22 quetiapine 50 mg tablet 1 tab PO BID 09/22/21 07/27/22 venlafaxine 150 mg 1 cap PO DAILY 09/22/21 07/27/22 capsule,extended release 24 hr clonazepam 1 mg tablet 1 mg PO TID 10/26/21 07/27/22 quetiapine 400 mg tablet 400 mg PO BEDTIME 10/26/21 07/27/22 ursodiol 300 mg capsule 300 mg PO BID 10/26/21 07/27/22 ziprasidone HCl 20 mg capsule 20 mg PO BID 10/26/21 07/27/22 acetaminophen 500 mg tablet 2 tab PO Q8H 02/11/22 07/27/22 cholecalciferol (vitamin D3) 50 1 tab PO DAILY 02/11/22 07/27/22 mcg (2,000 unit) tablet (Vitamin D3) famotidine 40 mg tablet 1 tab PO BEDTIME 02/11/22 07/27/22 hydroxyzine pamoate 50 mg capsule 1 cap PO BID PRN Anxiety 02/11/22 07/27/22 linaclotide 290 mcg capsule 1 cap PO DAILY 02/11/22 07/27/22 (Linzess) ondansetron 4 mg disintegrating 1 tab PO Q8H PRN nausea 02/11/22 07/27/22 tablet pantoprazole 40 mg tablet,delayed 40 mg PO DAILY@0630 02/11/22 07/27/22 release blood sugar diagnostic (OneTouch 08/15/22 Verio test strips) blood-glucose meter (OneTouch 08/15/22 Verio Meter) lancets 33 gauge (OneTouch Delica 08/15/22 Lancets) tolterodine 4 mg capsule,extended 4 mg PO DAILY 08/15/22 release 24 hr Previous Rx's Medication Instructions Recorded vitamin B complex (B 1 tab PO DAILY #30 tabs 07/13/21 Complex-Vitamin B12 tablet) blood pressure monitor (Blood #1 ea 10/31/21 Pressure Kit) atorvastatin 20 mg tablet 20 mg PO DAILY #90 tabs 01/27/22 BATH CHAIR #1 ea 01/31/22 CANE #1 ea 01/31/22 LIFELINE ALERT SYSTEM #1 ea 01/31/22 WRIST BRACE #1 ea 01/31/22 ALCOHOL PADS #100 ea 02/21/22 glucagon 1 mg solution for 1 mg IVPUSH ONCE PRN hypoglycemia 03/09/22 injection (GlucaGen HypoKit) below 55 #1 ea lidocaine 5 % topical patch 1 patch topical DAILY 30 days #30 03/09/22 (Lidoderm) ea diphenhydramine HCl 25 mg capsule 25 mg PO BEDTIME PRN sleep #90 caps 03/10/22 (Benadryl) codeine 10 mg-guaifenesin 100 mg/5 10 ml PO Q6H PRN cough #237 mL 04/02/22 mL oral liquid acarbose 25 mg tablet 25 mg PO TID #90 tabs 04/13/22 oxycodone 5 mg tablet 5 mg PO Q6H PRN pain #14 tabs 04/25/22 terconazole 0.8 % vaginal cream 1 appful vaginal BEDTIME 04/25/22 Candidiasis vaginitis 3 days #20 grams sucralfate 100 mg/mL oral 10 ml PO BID #420 mL 05/17/22 suspension (Carafate) polyethylene glycol 3350 17 gram 17 g PO DAILY #30 ea 05/22/22 oral powder packet (Miralax) ROLLATOR #1 ea 05/23/22 food supplemt, lactose-reduced 1 ea PO TID 30 days #5,688 mL 05/23/22 (Ensure High Protein oral liquid) WRIST SPLINT Right and Left hand #1 ea 05/30/22 ENSURE once a day #90 ea 06/08/22 SHOWER BAR #1 ea 06/08/22 SHOWER WAND #1 ea 06/08/22 ondansetron 4 mg disintegrating 4 mg PO Q8H PRN nausea and 06/10/22 tablet vomiting #10 tabs acetaminophen 160 mg/5 mL oral 500 mg (15.625 mL) PO QID PRN 06/26/22 suspension (Children's Tylenol) pain, temp 7 days #120 mL sucralfate 1 gram tablet 1 g PO TID #90 tabs 07/06/22 Bed pads #100 ea 07/17/22 Bedside commode #1 ea 07/17/22 SANITARY PADS #100 ea 12/19/22 dicyclomine 20 mg tablet 20 mg PO BID #60 tabs 07/21/22 tramadol 50 mg tablet 50 mg PO Q6H PRN pain 30 days #60 07/21/22 tabs ascorbate calcium (vitamin C) 814 407 mg PO DAILY #60 grams 07/25/22 mg/gram oral powder ferrous sulfate 15 mg iron (75 15 mg PO DAILY #120 mL 07/25/22 mg)/mL oral syringe (ORAL USE) bisacodyl 10 mg rectal suppository 10 mg ND DAILY PRN constipation 07/27/22 (Dulcolax (bisacodyl)) #12 ea fluticasone propionate 50 1 spray intranasal DAILY #100 mL 07/27/22 mcg/actuation nasal spray,suspension (Flonase Allergy Relief) lidocaine HCl 2 % mucosal solution 1 appl mucous membrane TID PRN 07/27/22 (Lidocaine Viscous) pain #100 mL simethicone 40 mg/0.6 mL oral 0.6 ml PO BID-TID PRN abdominal 07/27/22 drops,suspension distention #15 mL Magic Mouthwash 5 ml PO .Q.a.c. #240 mL 07/29/22 Diphen/Lido/Antacid 1:1:1 240 mL suspension lorazepam 1 mg tablet 1 mg PO TID PRN anxiety #10 tabs 07/29/22 cyclobenzaprine 5 mg tablet 5 mg PO BEDTIME PRN muscle spasm 08/03/22 15 days #45 tabs aluminum-mag hydroxide-simethicone 5 ml PO 5XD PRN dyspepsia #355 mL 08/19/22 200 mg-200 mg-20 mg/5 mL oral susp (Maalox Advanced) <Kaylah Alejo, SANDI - Last Filed: 08/19/22 16:09> Allergies/Adverse Reactions: Allergies Allergy/AdvReac Type Severity Reaction Status Date / Time tomato [TOMATO] Allergy Mild HIVES Verified 08/19/22 19:43 DIFFICULTY BREATHING hydrocodone [HYDROCODONE] Allergy Unknown RASH, Verified 08/19/22 19:43 AIRWAY CLOSES ibuprofen [From MOTRIN] Allergy Unknown STOMACH Verified 08/19/22 19:43 UPSET, vomiting trazodone [TRAZODONE] Allergy Unknown UNKNOWN, Verified 08/19/22 19:43 stomach upset black pepper [BLACK PEPPER] AdvReac Severe DIFFICULTY Verified 08/19/22 19:43 BREATHING, hives lisinopril AdvReac Severe Anaphylaxis Verified 08/19/22 19:43 <Kaylah Alejo CNP - Last Filed: 08/19/22 16:09> Review of Systems Review of Systems Constitutional : No Weight loss, No Fever, No Chills, + Fatigue, + Malaise ENT/Mouth : No sore throat, No Rhinorrhea Eyes: No Eye Pain, No Swelling, No Redness Cardiovascular : No Chest Pain, No SOB, No Dyspnea on Exertion, No Orthopnea, No Edema, No Palpitations Respiratory : No Cough, No Sputum, No Wheezing Gastrointestinal : + Nausea, + Vomiting, No Diarrhea, No Constipation, + abdominal Pain, No Hematochezia, No Melena Genitourinary : No Dysuria, No Urinary Frequency, No Hematuria, Musculoskeletal : No joint pain, No Myalgias, No Joint Swelling Skin : No Skin Lesions, No rash Neuro : No Weakness, No Numbness, No Dizziness, No Headache Psych : No Anxiety/Panic, No Depression All other systems reviewed and are negative <NOEL Funes - Last Filed: 08/19/22 20:20> Yes all other systems are reviewed and are negative <NOEL Funes - Last Filed: 08/19/22 20:20> [facility] Past Medical History Attestation statement: The following information was validated with the patient. 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 Diverticulosis GERD (gastroesophageal reflux disease) History of bipolar disorder History of schizophrenia Hypercholesterolemia Hypertension Insomnia Numbness of left hand Renal calculi Spondylosis of lumbar spine Type 2 diabetes mellitus with hyperglycemia Vitamin D deficiency <Kaylah Alejo CNP - Last Filed: 08/19/22 16:09> Surgical History: Surgical History H/O: hysterectomy History of tubal ligation Hx of bariatric surgery <Kaylah Alejo CNP - Last Filed: 08/19/22 16:09> Family History Family History: Family History Father Medical history unknown Mother Medical history unknown Paternal Aunt Uterine cancer Diabetes Hypertension Paternal Uncle Liver cancer Heart attack Maternal Aunt Stroke Family/Other Chronic mental illness Sister Uterine cancer Schizophrenia Brother Substance abuse Other Mental health disorder <Kaylah Alejo CNP - Last Filed: 08/19/22 16:09> Social History Social History: Social History Household Members: None Housing: Apartment Do you presently have visiting nurse or other home services: Yes Alcohol intake: never Patient Tobacco Use Status: Never used Tobacco Smoked in Last 30 Days: No e-Cigarette/Vaping Use: Never Used Second Hand Smoke Exposure: No Advance Directives: No Advance Directives Information Provided: No Patient : No service: No Current occupational status: disabled Current occupational exposures/hazards: No Cognitive needs: No Hearing needs: No Vision needs: No <Kaylah Alejo CNP - Last Filed: 08/19/22 16:09> Physical Exam ED Vital Signs: Vital Signs - 24 hr 08/19/22 16:05 08/19/22 18:32 Temperature 97.7 F 98.7 F Pulse Rate 81 58 Respiratory Rate 18 Blood Pressure 128/59 L 124/76 Pulse Oximetry 98 Oxygen Delivery Method Room Air Room Air BMI result Body Mass Index 19.3 <Kaylah Alejo CNP - Last Filed: 08/19/22 16:09> Vital Signs - 24 hr 08/19/22 16:05 08/19/22 18:32 Temperature 97.7 F 98.7 F Pulse Rate 81 58 Respiratory Rate 18 Blood Pressure 128/59 L 124/76 Pulse Oximetry 98 Oxygen Delivery Method Room Air Room Air BMI result Body Mass Index 19.3 Vital signs stable <NOEL Funes - Last Filed: 08/19/22 20:20> Appearance: Alert.? Oriented X3.? No acute distress.? Head: Normocephalic, atraumatic, no step-offs or deformities Eyes: Pupils equal, round and reactive to light.? ENT: Pharynx normal.? Neck: Normal inspection.? Neck supple.? CVS: Normal heart rate and rhythm.? Pulses normal.? Respiratory: No respiratory distress.? Breath sounds normal.? Abdomen: Soft and tenderness to left upper quadrant and epigastric region.? Skin: Skin warm and dry.? Normal skin color.? Normal skin turgor.? Extremities: No lower extremity edema.? No calf ttp. 5/5 strength to bilateral upper and lower extremities Neuro: Oriented X 3.? No motor deficit.? No sensory deficit. CN 2-12 intact <NOEL Funes - Last Filed: 08/19/22 20:20> Course Course Course Narrative: This is an RME: Additional HPI, ROS, PE not included below will be deferred to primary provider. Patient is a 41-year-old female who presents emergency department for evaluation of sore throat, difficulty swallowing, increased salivation. Symptoms x 3 days, severe, states unable to eat or drink, nausea, self-induced vomiting due to globus sensation, dizziness, headache, low blood sugar. Reports many issues since gastric sleeve surgery September 2021 through [email or web address]. Plan: labs, viral testing, IVF, ondansetron IV <Kaylah Alejo CNP - Last Filed: 08/19/22 16:09> Reevaluation(s) Reevaluation #1: CBC appears to be around patient's baseline with a microcytic anemia, platelet slightly elevated 477 however this also appears to be around patient's baseline. Chemistry with no acute electrolyte abnormalities requiring interven tion. Normal transaminases, bilirubin. Lipase within normal limits. UA without infection, urine negative. COVID, influenza negative. CT of the abdomen and pelvis demonstrating subtle chronic calcific pancreatitis, discuss this with patient she tells me she has heard this before. Few scattered subcentimeter circum scribed focal hepatic hypodensities present these are new, educated patient on these findings advised her to follow-up with GI. Postsurgical changes of sleeve gastrectomy in no CT evidence of bowel obstruction. Patient tolerating p.o. fluids without difficulty reports significant improvement after GI cocktail. Will discharge patient home on Maalox. Patient tells me she will call GI on Sunday, she tells me that she is due to see them however has never taken the time to see them. Educated patient on diagnosis and treatment plan, answered all question, patient verbalizes understanding. At this time patient will be discharged home, advised to return with new or worsening symptoms. Educated on worrisome signs and symptoms and when to return. At this time I feel comfortable discharge home. <NOEL Funes - Last Filed: 08/19/22 20:20> Time: 20:18 <NOEL Funes - Last Filed: 08/19/22 20:20> Medical Decision Making Medical Decision Making [facility] Narrative: 1700 41-year-old female presents with abdominal pain, nausea, vomiting and difficulty swallowing for the past few days worsening. Reports history of gastric sleeve done at [facility] in 2021. Patient denies drinking however upon chart review it is noted the patient has a history of alcohol abuse. Physical exam with pain with palpation to left upper quadrant epigastric region. Likely dysphagia, patient has a history of this, unlikely esophageal stricture. Concerns for possible pancreatitis. Also concern for GERD versus gastritis. Unlikely acute abdomen, appendicitis, cholecystitis, diverticulitis, pyelonephritis, kidney stones. Patient well-appearing. Plan at this time labs, imaging, urine. <NOEL Funes - Last Filed: 08/19/22 20:20> Differential Diagnosis Differential Diagnoses: The differential diagnosis associated with the presentation includes <NOEL Funes Last Filed: 08/19/22 20:20> Likely dysphagia, patient has a history of this, unlikely esophageal stric ture. Concerns for possible pancreatitis. Also concern for GERD versus gastritis. Unlikely acute abdomen, appendicitis, cholecystitis, diverticulitis, pyelonephritis, kidney stones. <NOEL Funes Last Filed: 08/19/22 20:20> Admission/Observation Consideration of admission/observation: Escalation of care including admission/observation considered <NOEL Funes Last Filed: 08/19/22 20:20> Unlikely <NOEL Funes - Last Filed: 08/19/22 20:20> Lab Data [facility] Lab Attestation statement: I reviewed the patient's lab results. <Radha Canchola PA - Last Filed: 08/19/22 20:20> Result Diagrams: 08/19/22 17:40 08/19/22 17:40 <Kaylah Alejo CNP - Last Filed: 08/19/22 16:09> Labs: Lab Results 08/19/22 08/19/22 08/19/22 Range/Units 16:59 16:59 16:59 WBC (4.8-10.8) X10*3/uL RBC (4.20-5.50) X10*6/uL Hgb (12.0-16.0) g/dl Hct (37.0-47.0) % MCV (80.0-98.0) fL MCH (27.0-33.0) pg MCHC (31.0-35.0) g/dl RDW (11.0-16.0) % Plt Count (160-400) X10*3/uL MPV (9.4-12.3) fL Immature Gran % (Auto) (0.0-0.4) % Neut % (Auto) (45-73) % Lymph % (Auto) (20-40) % [place] % (Auto) (2-11) % Eos % (Auto) (0-4) % Baso % (Auto) (0-2) % Lymph # (Auto) (1.2-4.9) X10*3/uL [place] # (Auto) (0.1-1.2) X10*3/uL Eos # (Auto) (0.0-0.4) X10*3/uL Baso # (Auto) (0.0-0.2) X10*3/uL Abs Immat Gran (auto) (0.00-0.03) X10*3/uL Absolute Neuts (auto) (2.0-8.3) x10*3/uL Absolute Nucleated RBC (0.0-0.012) X10*3/uL Nucleated RBC % (auto) (0.0-0.2) /100WBC Sodium (135-145) mmol/L Potassium (3.3-5.1) mmol/L Chloride (96-108) mmol/L Carbon Dioxide (22-29) mmol/L Anion Gap (12-20) BUN (9-16) mg/dL Creatinine (0.5-1.4) mg/dL Estim Creat Clear Calc Estimated GFR Random Glucose (60-115) mg/dL Calcium (8.4-10.2) mg/dL Total Bilirubin (0.0-1.0) mg/dL AST (5-31) U/L ALT (0-31) U/L Alkaline Phosphatase (39-117) U/L Total Protein (6.5-8.0) g/dL Albumin (3.5-5.0) g/dL Lipase (8-78) U/L Urine Color Yellow Urine Appearance Turbid Urine pH 6.5 (5.0-9.0) Ur Specific [place] 1.025 (1.005-1.025) Urine Protein 30 (1+) H (Neg-Trace) mg/dL Urine Glucose (UA) Negative (Negative) mg/dL Urine Ketones Negative (Negative) mg/dL Urine Blood Negative (Negative) Urine Nitrite Negative (Negative) Ur Leukocyte Esterase Negative (Negative) Urine RBC 0-2 (0-2) /HPF Urine WBC 0-5 (0-5) /HPF Ur Squamous Epith Cells 6-10 (0-2) /HPF Urine Bacteria 1+ (None Seen) Hyaline Casts 0-2 (0-2) /LPF Urine Test (NEGATIVE) COVID-19 (ANGELA) Negative (Negative) COVID-19 Clin Com See Note Influenza Type A (BRIDGER) Negative (Negative) Influenza Type B (BRIDGER) Negative (Negative) Influenza A & B Note See Note 08/19/22 08/19/22 08/19/22 Range/Units 16:59 17:40 17:40 WBC 6.0 (4.8-10.8) X10*3/uL RBC 4.39 (4.20-5.50) X10*6/uL Hgb 10.1 L (12.0-16.0) g/dl Hct 32.0 L (37.0-47.0) % MCV 72.9 L (80.0-98.0) fL MCH 23.0 L (27.0-33.0) pg MCHC 31.6 (31.0-35.0) g/dl RDW 15.9 (11.0-16.0) % Plt Count 477 H D (160-400) X10*3/uL MPV 9.6 (9.4-12.3) fL Immature Gran % (Auto) 0.2 (0.0-0.4) % Neut % (Auto) 71.6 (45-73) % Lymph % (Auto) 21.6 (20-40) % [place] % (Auto) 5.6 (2-11) % Eos % (Auto) 0.3 (0-4) % Baso % (Auto) 0.7 (0-2) % Lymph # (Auto) 1.3 (1.2-4.9) X10*3/uL [place] # (Auto) 0.3 (0.1-1.2) X10*3/uL Eos # (Auto) 0.0 (0.0-0.4) X10*3/uL Baso # (Auto) 0.0 (0.0-0.2) X10*3/uL Abs Immat Gran (auto) 0.01 (0.00-0.03) X10*3/uL Absolute Neuts (auto) 4.3 (2.0-8.3) x10*3/uL Absolute Nucleated RBC 0.000 (0.0-0.012) X10*3/uL Nucleated RBC % (auto) 0.0 (0.0-0.2) /100WBC Sodium 141 (135-145) mmol/L Potassium 4.1 (3.3-5.1) mmol/L Chloride 103 (96-108) mmol/L Carbon Dioxide 28 (22-29) mmol/L Anion Gap 14 (12-20) BUN 15 (9-16) mg/dL Creatinine 0.71 (0.5-1.4) mg/dL Estim Creat Clear Calc 79.1 Estimated GFR > 60 Random Glucose 98 (60-115) mg/dL Calcium 9.4 (8.4-10.2) mg/dL Total Bilirubin 0.5 (0.0-1.0) mg/dL AST 15 (5-31) U/L ALT 9 (0-31) U/L Alkaline Phosphatase 64 (39-117) U/L Total Protein 6.8 (6.5-8.0) g/dL Albumin 4.3 (3.5-5.0) g/dL Lipase 18 (8-78) U/L Urine Color Urine Appearance Urine pH (5.0-9.0) Ur Specific [place] (1.005-1.025) Urine Protein (Neg-Trace) mg/dL Urine Glucose (UA) (Negative) mg/dL Urine Ketones (Negative) mg/dL Urine Blood (Negative) Urine Nitrite (Negative) Ur Leukocyte Esterase (Negative) Urine RBC (0-2) /HPF Urine WBC (0-5) /HPF Ur Squamous Epith Cells (0-2) /HPF Urine Bacteria (None Seen) Hyaline Casts (0-2) /LPF Urine Test NEGATIVE (NEGATIVE) COVID-19 (ANGELA) (Negative) COVID-19 Clin Com Influenza Type A (BRIDGER) (Negative) Influenza Type B (BRIDGER) (Negative) Influenza A & B Note <Kaylah Alejo, COMPONENT INSPECTOR - Last Filed: 08/19/22 16:09> Lab Results 08/19/22 08/19/22 08/19/22 Range/Units 16:59 16:59 16:59 WBC (4.8-10.8) X10*3/uL RBC (4.20-5.50) X10*6/uL Hgb (12.0-16.0) g/dl Hct (37.0-47.0) % MCV (80.0-98.0) fL MCH (27.0-33.0) pg MCHC (31.0-35.0) g/dl RDW (11.0-16.0) % Plt Count (160-400) X10*3/uL MPV (9.4-12.3) fL Immature Gran % (Auto) (0.0-0.4) % Neut % (Auto) (45-73) % Lymph % (Auto) (20-40) % [place] % (Auto) (2-11) % Eos % (Auto) (0-4) % Baso % (Auto) (0-2) % Lymph # (Auto) (1.2-4.9) X10*3/uL [place] # (Auto) (0.1-1.2) X10*3/uL Eos # (Auto) (0.0-0.4) X10*3/uL Baso # (Auto) (0.0-0.2) X10*3/uL Abs Immat Gran (auto) (0.00-0.03) X10*3/uL Absolute Neuts (auto) (2.0-8.3) x10*3/uL Absolute Nucleated RBC (0.0-0.012) X10*3/uL Nucleated RBC % (auto) (0.0-0.2) /100WBC Sodium (135-145) mmol/L Potassium (3.3-5.1) mmol/L Chloride (96-108) mmol/L Carbon Dioxide (22-29) mmol/L Anion Gap (12-20) BUN (9-16) mg/dL Creatinine (0.5-1.4) mg/dL Estim Creat Clear Calc Estimated GFR Random Glucose (60-115) mg/dL Calcium (8.4-10.2) mg/dL Total Bilirubin (0.0-1.0) mg/dL AST (5-31) U/L ALT (0-31) U/L Alkaline Phosphatase (39-117) U/L Total Protein (6.5-8.0) g/dL Albumin (3.5-5.0) g/dL Lipase (8-78) U/L Urine Color Yellow Urine Appearance Turbid Urine pH 6.5 (5.0-9.0) Ur Specific [place] 1.025 (1.005-1.025) Urine Protein 30 (1+) H (Neg-Trace) mg/dL Urine Glucose (UA) Negative (Negative) mg/dL Urine Ketones Negative (Negative) mg/dL Urine Blood Negative (Negative) Urine Nitrite Negative (Negative) Ur Leukocyte Esterase Negative (Negative) Urine RBC 0-2 (0-2) /HPF Urine WBC 0-5 (0-5) /HPF Ur Squamous Epith Cells 6-10 (0-2) /HPF Urine Bacteria 1+ (None Seen) Hyaline Casts 0-2 (0-2) /LPF Urine Test (NEGATIVE) COVID-19 (ANGELA) Negative (Negative) COVID-19 Clin Com See Note Influenza Type A (BRIDGER) Negative (Negative) Influenza Type B (BRIDGER) Negative (Negative) Influenza A & B Note See Note 08/19/22 08/19/22 08/19/22 Range/Units 16:59 17:40 17:40 WBC 6.0 (4.8-10.8) X10*3/uL RBC 4.39 (4.20-5.50) X10*6/uL Hgb 10.1 L (12.0-16.0) g/dl Hct 32.0 L (37.0-47.0) % MCV 72.9 L (80.0-98.0) fL MCH 23.0 L (27.0-33.0) pg MCHC 31.6 (31.0-35.0) g/dl RDW 15.9 (11.0-16.0) % Plt Count 477 H D (160-400) X10*3/uL MPV 9.6 (9.4-12.3) fL Immature Gran % (Auto) 0.2 (0.0-0.4) % Neut % (Auto) 71.6 (45-73) % Lymph % (Auto) 21.6 (20-40) % [place] % (Auto) 5.6 (2-11) % Eos % (Auto) 0.3 (0-4) % Baso % (Auto) 0.7 (0-2) % Lymph # (Auto) 1.3 (1.2-4.9) X10*3/uL [place] # (Auto) 0.3 (0.1-1.2) X10*3/uL Eos # (Auto) 0.0 (0.0-0.4) X10*3/uL Baso # (Auto) 0.0 (0.0-0.2) X10*3/uL Abs Immat Gran (auto) 0.01 (0.00-0.03) X10*3/uL Absolute Neuts (auto) 4.3 (2.0-8.3) x10*3/uL Absolute Nucleated RBC 0.000 (0.0-0.012) X10*3/uL Nucleated RBC % (auto) 0.0 (0.0-0.2) /100WBC Sodium 141 (135-145) mmol/L Potassium 4.1 (3.3-5.1) mmol/L Chloride 103 (96-108) mmol/L Carbon Dioxide 28 (22-29) mmol/L Anion Gap 14 (12-20) BUN 15 (9-16) mg/dL Creatinine 0.71 (0.5-1.4) mg/dL Estim Creat Clear Calc 79.1 Estimated GFR > 60 Random Glucose 98 (60-115) mg/dL Calcium 9.4 (8.4-10.2) mg/dL Total Bilirubin 0.5 (0.0-1.0) mg/dL AST 15 (5-31) U/L ALT 9 (0-31) U/L Alkaline Phosphatase 64 (39-117) U/L Total Protein 6.8 (6.5-8.0) g/dL Albumin 4.3 (3.5-5.0) g/dL Lipase 18 (8-78) U/L Urine Color Urine Appearance Urine pH (5.0-9.0) Ur Specific [place] (1.005-1.025) Urine Protein (Neg-Trace) mg/dL Urine Glucose (UA) (Negative) mg/dL Urine Ketones (Negative) mg/dL Urine Blood (Negative) Urine Nitrite (Negative) Ur Leukocyte Esterase (Negative) Urine RBC (0-2) /HPF Urine WBC (0-5) /HPF Ur Squamous Epith Cells (0-2) /HPF Urine Bacteria (None Seen) Hyaline Casts (0-2) /LPF Urine Test NEGATIVE (NEGATIVE) COVID-19 (ANGELA) (Negative) COVID-19 Clin Com Influenza Type A (BRIDGER) (Negative) Influenza Type B (BRIDGER) (Negative) Influenza A & B Note <NOEL Funes - Last Filed: 08/19/22 20:20> Independent Interpretation I performed an independent interpretation of an: CT Scan <NOEL Funes - Last Filed: 08/19/22 20:20> Radiology Impression Discussion of test interpretation with radiology: I have reviewed the radiologist's reading. <NOEL Funes - Last Filed: 08/19/22 20:20> External Record Review External record reviewed: Inpatient record, Office record, Outpatient record, Prior outpatient labs, Prior outpatient radiology, Primary care record and Outside ED record <NOEL Funes - Last Filed: 08/19/22 20:20> Core Measures AMI core measures followed: Yes <NOEL Funes - Last Filed: 08/19/22 20:20> Measure exclusions: not indicated <NOEL Funes - Last Filed: 08/19/22 20:20> Medications Administered Discontinued Medications Generic Name Dose Route Start Last Admin Trade Name Fabiola PRN Reason Stop Dose Admin Al Hydroxide/Mg Hydroxide 30 ml 08/19/22 16:54 08/19/22 17:31 Magnesium Hydrox/Alum Hydrox 30 Ml Oral.Susp PO 08/19/22 16:55 30 ml ONCE ONE Administration Belladonna Alkaloids/Phenobarbital 10 ml 08/19/22 16:54 08/19/22 17:33 Phenobarb/Hyoscy/Atropine/Scop 10 Ml Elixir PO 08/19/22 16:55 10 ml ONCE ONE Administration Sodium Chloride 1,000 mls @ 999 mls/hr 08/19/22 16:15 08/19/22 18:59 Ns IV 08/19/22 17:15 Infused .[id number] OSBALDO Infusion Iohexol 100 ml 08/19/22 18:19 08/19/22 18:19 Iohexol 350 Mg/Ml 100 Ml Infus..Btl IV 08/19/22 18:20 85 ml ONCE ONE Administration Ondansetron HCl 4 mg 08/19/22 16:10 08/19/22 17:32 Ondansetron Hcl 4 Mg/2 Ml Vial IVPUSH 08/19/22 16:11 4 mg ONCE ONE Administration <Kaylah Alejo CNP - Last Filed: 08/19/22 16:09> Medications Administered Discontinued Medications Generic Name Dose Route Start Last Admin Trade Name Fabiola PRN Reason Stop Dose Admin Al Hydroxide/Mg Hydroxide 30 ml 08/19/22 16:54 08/19/22 17:31 Magnesium Hydrox/Alum Hydrox 30 Ml Oral.Susp PO 08/19/22 16:55 30 ml ONCE ONE Administration Belladonna Alkaloids/Phenobarbital 10 ml 08/19/22 16:54 08/19/22 17:33 Phenobarb/Hyoscy/Atropine/Scop 10 Ml Elixir PO 08/19/22 16:55 10 ml ONCE ONE Administration Sodium Chloride 1,000 mls @ 999 mls/hr 08/19/22 16:15 08/19/22 18:59 Ns IV 08/19/22 17:15 Infused .Q1H1M OSBALDO Infusion Iohexol 100 ml 08/19/22 18:19 08/19/22 18:19 Iohexol 350 Mg/Ml 100 Ml Infus..Btl IV 08/19/22 18:20 85 ml ONCE ONE Administration Ondansetron HCl 4 mg 08/19/22 16:10 08/19/22 17:32 Ondansetron Hcl 4 Mg/2 Ml Vial IVPUSH 08/19/22 16:11 4 mg ONCE ONE Administration <NOEL Funes - Last Filed: 08/19/22 20:20> Critical Care Time Critical Care Time Critical Care Time: No <NOEL Funes - Last Filed: 08/19/22 20:20> Discharge Plan Discharge Clinical Impression: Dysphagia, Abdominal pain <Kaylah Alejo CNP - Last Filed: 08/19/22 16:09> Patient Disposition: Home, Self-Care <Kaylah Alejo CNP - Last Filed: 08/19/22 16:09> Instructions: Abdominal Pain (ED), Dysphagia (ED) <Kaylah Alejo CNP - Last Filed: 08/19/22 16:09> Additional Instructions: Take your medications as prescribed. If you were prescribed antibiotics today, it is important that you take your medication to their entirety, do not skip any doses, do not finish them early. Follow-up with your primary care provider this week. Follow-up with gastroenterology Return to the emergency department with new or worsening symptoms. Such as fevers, chills, chest pain, shortness of breath, nausea, vomiting, dizziness, headache, vision changes, lethargy In case of emergency call 911 CT/CT abdomen pelvis w IV con IMPRESSION: There are 2 punctate sub-5 mm circumscribed dense calcific foci identified in the region of the head and proximal part of the body of the pancreas, likely represent parenchymal calcifications and thereby suspicious for subtle chronic calcific pancreatitis. A few scattered subcentimeter circumscribed focal hepatic hypodensities are also present, too small for accurate characterization, was not visualized on prior noncontrast study dated 05/31/2022. Previously documented tiny punctate nonobstructing radiopaque calculus within the inferior calyx of the right kidney is not reproduced in the current study. Mild asymmetric fullness of the right renal pelvicalyceal system however is present, of indeterminate etiology. Postsurgical changes of sleeve gastrectomy and no CT evidence of bowel obstruction, unchanged since 05/31/2022. Fleischner guidelines were followed. <Kaylah Rivera Sapna, COMPONENT INSPECTOR - Last Filed: 08/19/22 16:09> Prescriptions: New alum-mag hydroxide-simeth [Maalox Advanced] 200-200-20 mg/5 mL suspension 5 ml PO 5XD PRN (Reason: dyspepsia) Qty: 355 0RF Rx Instructions: administer between meals and at bedtime No Action vitamin B complex [B Complex-Vitamin B12] Tablet 1 tab PO DAILY Qty: 30 6RF Rx Instructions: 1,000mcg dose daily (DME) blood pressure monitor [Blood Pressure Kit] Kit See Rx Instructions .Route Qty: 1 0RF Rx Instructions: As directed atorvastatin 20 mg tablet 20 mg PO DAILY Qty: 90 3RF (DME) CANE See Rx Instructions .Route .MEDSUPPLY Qty: 1 0RF Rx Instructions: As directed (DME) WRIST BRACE See Rx Instructions .Route .MEDSUPPLY Qty: 1 0RF Rx Instructions: As directed (DME) BATH CHAIR See Rx Instructions .Route .MEDSUPPLY Qty: 1 0RF Rx Instructions: As directed (DME) LIFELINE ALERT SYSTEM See Rx Instructions .Route .MEDSUPPLY Qty: 1 0RF Rx Instructions: As directed (DME) ALCOHOL PADS See Rx Instructions .Route .MEDSUPPLY Qty: 100 3RF Rx Instructions: As directed lidocaine [Lidoderm] 5 % adhesive patch,medicated 1 patch topical DAILY 30 Days Qty: 30 3RF Rx Instructions: leave on most painful area for up to 12 hrs diphenhydramine HCl [Benadryl] 25 mg capsule 25 mg PO BEDTIME PRN (Reason: sleep) Qty: 90 2RF polyethylene glycol 3350 [Miralax] 17 gram powder in packet 17 g PO DAILY Qty: 30 5RF (DME) ROLLATOR See Rx Instructions .Route .MEDSUPPLY Qty: 1 0RF Rx Instructions: As directed Ensure High Protein Liquid 1 ea PO TID 30 Days Qty: 5688 0RF (DME) WRIST SPLINT Right and Left hand See Rx Instructions .Route .MEDSUPPLY Qty: 1 0RF Rx Instructions: As directed (DME) SHOWER WAND See Rx Instructions .Route .MEDSUPPLY Qty: 1 0RF Rx Instructions: As directed (DME) SHOWER BAR See Rx Instructions .Route .MEDSUPPLY Qty: 1 0RF Rx Instructions: As directed (DME) ENSURE once a day See Rx Instructions .Route .MEDSUPPLY Qty: 90 0RF Rx Instructions: As directed acetaminophen [Children's Tylenol] 160 mg/5 mL suspension 500 mg PO QID PRN (Reason: pain, temp) 7 Days Qty: 120 0RF (DME) Bedside commode See Rx Instructions .Route .MEDSUPPLY Qty: 1 0RF Rx Instructions: As directed (DME) Bed pads See Rx Instructions .Route .MEDSUPPLY Qty: 100 12RF Rx Instructions: As directed (DME) SANITARY PADS See Rx Instructions .Route .MEDSUPPLY Qty: 100 12RF Rx Instructions: As directed dicyclomine 20 mg tablet 20 mg PO BID Qty: 60 2RF tramadol 50 mg tablet 50 mg PO Q6H PRN (Reason: pain) 30 Days Qty: 60 1RF ferrous sulfate 15 mg iron (75 mg)/mL syringe 15 mg PO DAILY Qty: 120 0RF ascorbate calcium (vitamin C) 814 mg/gram powder 407 mg PO DAILY Qty: 60 0RF cyclobenzaprine 5 mg tablet 5 mg PO BEDTIME PRN (Reason: muscle spasm) 15 Days Qty: 45 0RF venlafaxine 150 mg capsule,extended release 24hr 1 cap PO DAILY quetiapine 50 mg tablet 1 tab PO BID codeine-guaifenesin 10-100 mg/5 mL liquid 10 ml PO Q6H PRN (Reason: cough) Qty: 237 0RF terconazole 0.8 % cream 1 appful vaginal BEDTIME 3 Days Qty: 20 0RF oxycodone 5 mg tablet 5 mg PO Q6H PRN (Reason: pain) Qty: 14 0RF Rx Instructions: Partial Fill upon patient request. sucralfate [Carafate] 100 mg/mL suspension 10 ml PO BID Qty: 420 0RF ondansetron 4 mg tablet,disintegrating 4 mg PO Q8H PRN (Reason: nausea and vomiting) Qty: 10 0RF sucralfate 1 gram tablet 1 g PO TID Qty: 90 0RF Magic Mouthwash Diphen/Lido/Antacid 1:1:1 240 mL suspension 5 ml PO .Q.a.c. Qty: 240 1RF Rx Instructions: Lidocaine Viscous 2 % 80mL; diphenhydramine 12.5 mg/5 mL 80mL; aluminum-mag hydrox-simeth 181ap-300gb-[id number]/5mL 80mL. 5-10 mL gargle and swallow up to 4 times a day lorazepam 1 mg tablet 1 mg PO TID PRN (Reason: anxiety) Qty: 10 0RF famotidine 40 mg tablet 1 tab PO BEDTIME hydroxyzine pamoate 50 mg capsule 1 cap PO BID PRN (Reason: Anxiety) acetaminophen 500 mg tablet 2 tab PO Q8H ondansetron 4 mg tablet,disintegrating 1 tab PO Q8H PRN (Reason: nausea) cholecalciferol (vitamin D3) [Vitamin D3] 50 mcg (2,000 unit) tablet 1 tab PO DAILY Linzess 290 mcg capsule 1 cap PO DAILY pantoprazole 40 mg tablet,delayed release (DR/EC) 40 mg PO DAILY@0630 zolpidem 10 mg tablet 10 mg PO BEDTIME PRN (Reason: Sleep) lactulose 10 gram/15 mL solution 10 g PO DAILY ziprasidone HCl 20 mg capsule 20 mg PO BID quetiapine 400 mg tablet 400 mg PO BEDTIME ursodiol 300 mg capsule 300 mg PO BID clonazepam 1 mg tablet 1 mg PO TID bisacodyl [Dulcolax (bisacodyl)] 10 mg suppository 10 mg ND DAILY PRN (Reason: constipation) Qty: 12 0RF simethicone 40 mg/0.6 mL drops,suspension 0.6 ml PO BID-TID PRN (Reason: abdominal distention) Qty: 15 0RF fluticasone propionate [Flonase Allergy Relief] 50 mcg/actuation spray,suspension 1 spray intranasal DAILY Qty: 100 0RF Rx Instructions: administer into each nostril lidocaine HCl [Lidocaine Viscous] 2 % solution 1 appl mucous membrane TID PRN (Reason: pain) Qty: 100 0RF GlucaGen HypoKit 1 mg recon soln 1 mg IVPUSH ONCE PRN (Reason: hypoglycemia below 55) Qty: 1 0RF acarbose 25 mg tablet 25 mg PO TID Qty: 90 3RF (DME) blood-glucose meter [OneTouch Verio Meter] Misc See Rx Instructions .ROUTE Rx Instructions: As directed (DME) OneTouch Verio test strips Strip See Rx Instructions .ROUTE Rx Instructions: As directed 3 times a day (DME) lancets [OneTouch Delica Lancets] 33 gauge misc See Rx Instructions .ROUTE Rx Instructions: As directed 3 times a day tolterodine 4 mg capsule,extended release 24hr 4 mg PO DAILY <Kaylah Alejo CNP - Last Filed: 08/19/22 16:09> Referrals: [facility] [Provider Group] - 2 days Po,Deirdre Raymundo MD [Primary Care Provider] - 2 days <Kaylah Alejo CNP - Last Filed: 08/19/22 16:09> Stand Alone Forms: Work/School Release <Kaylah Alejo CNP - Last Filed: 08/19/22 16:09>
[2022-08-19 17:11] LABS: Appearance Urine Turbid; Color Urine Yellow; Glucose Urine UA Negative (Negative); Leukocyte Esterase Urine Negative (Negative); Nitrite Urine Negative (Negative); PH 6.5 (5.0-9.0); Specific Gravity - Urine 1.025 (1.005-1.025); UMIC TRIGGER UACC YES; Urine Blood Negative (Negative); Urine Ketones Negative (Negative); Urine Protein 30 (1+) mg/dL (Neg-Trace)
[2022-08-19 17:13] LABS: UPreg QC Valid YES; Urine Pregnancy NEGATIVE (NEGATIVE)
[2022-08-19 17:17] LABS: Bacteria Urine 1+ (None Seen); Hyaline Casts Urine 0-2 /LPF (0-2); RBC Urine 0-2 /HPF (0-2); WBC Urine 0-5 /HPF (0-5)
[2022-08-19] MEDS: Magnesium Hydrox/Alum Hydrox 30 ML ORAL.SUSP PO (17:31)
[2022-08-19] MEDS: 0.9 % Sodium Chloride 1,000 ML 999 ML IV (17:32)
[2022-08-19] MEDS: ondansetron HCL 4 MG/2 ML VIAL IVPUSH (17:32)
[2022-08-19] MEDS: PHENobarb/Hyoscy/Atropine/Scop 10 ML ELIXIR PO (17:33)
--- NOTE | 2022-08-19 17:38 | PC.NURSE ---
Patient a/ox4 . adriánrla . heart rate regular at 86 beats per minute . breathing even and unlabored . lungs clear throughout . skin dry and warm . abdomen soft . rebound tenderness noted in mid area that patient reports radiates up towards her throat . IV placed in left hand . medicated as ordered . normal saline started .labs obtained and sent . patient aware of plan care .
[2022-08-19 17:46] LABS: MANUAL DIFF FLAG NO
[2022-08-19 17:48] LABS: Basophils Percent Auto 0.7 % (0-2); Eosinophils Percent Auto 0.3 % (0-4); Hemoglobin 10.1 g/dl (12.0-16.0); Imm Gran Abs Auto 0.01 X10*3/uL (0.00-0.03); Imm Gran Pct Auto 0.2 % (0.0-0.4); Lymphocytes Absolute Auto 1.3 X10*3/uL (1.2-4.9); Lymphocytes Percent Auto 21.6 % (20-40); Mean Corpuscular HGB Conc 31.6 g/dl (31.0-35.0); Mean Corpuscular Volume 72.9 fL (80.0-98.0); Mean Platelet Volume 9.6 fL (9.4-12.3); Monocytes Absolute Auto 0.3 X10*3/uL (0.1-1.2); Monocytes Percent Auto 5.6 % (2-11); Neutrophils Absolute Auto 4.3 x10*3/uL (2.0-8.3); Neutrophils Percent Auto 71.6 % (45-73); Platelet Count 477 X10*3/uL (160-400); Red Blood Count 4.39 X10*6/uL (4.20-5.50); Red Cell Distribution Width 15.9 % (11.0-16.0)
[2022-08-19 17:52] LABS: COVID-19 Test Negative (Negative); IDNOW Serial# 08D9AD1C; Influenza A Negative (Negative); Influenza B2 Negative (Negative)
[2022-08-19 18:04] LABS: Alanine Aminotransferase 9 U/L (0-31); Albumin Level 4.3 g/dL (3.5-5.0); Alkaline Phosphatase 64 U/L (39-117); Anion Gap 14 (12-20); Aspartate Amino Transferase 15 U/L (5-31); Bilirubin Total 0.5 mg/dL (0.0-1.0); Blood Urea Nitrogen 15 mg/dL (9-16); Calcium 9.4 mg/dL (8.4-10.2); Carbon Dioxide 28 mmol/L (22-29); Chloride 103 mmol/L (96-108); Creatinine Clr Calc Pharmacy 79.1; Estimated Glomerular Filt Rate > 60; Glucose Random 98 mg/dL (60-115); Lipase 18 U/L (8-78); Potassium 4.1 mmol/L (3.3-5.1); Sodium 141 mmol/L (135-145); Total Protein 6.8 g/dL (6.5-8.0)
[2022-08-19] MEDS: iohexoL 350 MG/ML 100 ML INFUS..BTL IV (18:19)
[2022-08-19 18:32] VITALS: BP 124/76; PULSE 58; TEMP 37.1
--- NOTE | 2022-08-19 18:42 | PC.NURSE ---
patient to CT for images . patient aware of plan of care .
--- NOTE | 2022-08-19 19:43 | PC.NURSE ---
assumed care of pt AOx4 no apparent distress
[2022-08-19 20:50] VITALS: BP 122/68; PULSE 63; RESP 16; TEMP 37.2; O2SAT 97
--- NOTE | 2022-08-19 20:52 | PC.NURSE ---
discharge instrucions given/explained; pt ambulates safely/independently; IV cath tip intact upon removal; no apparent distress; pt aler and oriented; all of patient's questions answered
== END 2022-08-19 20:52 | disposition home or self-care (01) ==
PROVIDERS: Nurse Practitioner Family; Emergency Provider Internal Medicine; PCP Internal Medicine
DX: R13.10 Dysphagia, unspecified (principal); R10.12 Left upper quadrant pain; Z20.822 Contact with and (suspected) exposure to COVID-19; D50.9 Iron deficiency anemia, unspecified; E11.9 Type 2 diabetes mellitus without complications; I10 Essential (primary) hypertension; E78.00 Pure hypercholesterolemia, unspecified; R41.3 Other amnesia; F10.10 Alcohol abuse, uncomplicated; Z79.899 Other long term (current) drug therapy; Z79.02 Long term (current) use of antithrombotics/antiplatelets; Z90.3 Acquired absence of stomach [part of]
CPT/HCPCS: 74177; 80053; 81001; 81025; 83690; 85025; 87502; 87635; 96361; 96374; 99284; J2405; Q9967

== ENCOUNTER 2022-08-20 18:37 | Emergency (ER) | payer OTHER, SELFPAY ==
--- NOTE | 2022-08-20 18:40 | ED.ABDPAIN ---
HPI - Abdominal Pain General Chief Complaint: Abdominal Pain <Kaylah Alejo CNP - Last Filed: 08/20/22 18:46> Stated Complaint: seen here yesterday, pain is worsening <Kaylah Alejo CNP - Last Filed: 08/20/22 18:46> Time Seen by Provider: 08/20/22 19:24 <Kaylah Alejo CNP - Last Filed: 08/20/22 18:46> Source: patient <Luis Enrique Carias MD - Last Filed: 08/21/22 00:50> Mode of arrival: ambulatory <Luis Enrique Carias MD - Last Filed: 08/21/22 00:50> Limitations: no limitations <Luis Enrique Carias MD - Last Filed: 08/21/22 00:50> History of Present Illness HPI narrative: Patient is status post gastric sleeve surgery 10/18, post gastrectomy malabsorption, anxiety was seen here yesterday for chronic pain and difficulty in swallowing indigestion which is going on for last 4- 5 months patient workup was negative including a CT scan patient was seen by surgeon last month advised a nutrition treatment now she says that she feels thick mucus in the throat or throat was clear no vomiting very anxious on arrival also patient has been vomiting multiple times small amount mostly saliva now she says has blood tinge in that <Luis Enrique Carias MD - Last Filed: 08/21/22 00:50> Related Data Home Medications: Home Medications Medication Instructions Recorded Confirmed lactulose 10 gram/15 mL oral 10 g PO DAILY 08/27/20 07/27/22 solution zolpidem 10 mg tablet 10 mg PO BEDTIME PRN Sleep 08/27/20 07/27/22 quetiapine 50 mg tablet 1 tab PO BID 09/22/21 07/27/22 venlafaxine 150 mg 1 cap PO DAILY 09/22/21 07/27/22 capsule,extended release 24 hr clonazepam 1 mg tablet 1 mg PO TID 10/26/21 07/27/22 quetiapine 400 mg tablet 400 mg PO BEDTIME 10/26/21 07/27/22 ursodiol 300 mg capsule 300 mg PO BID 10/26/21 07/27/22 ziprasidone HCl 20 mg capsule 20 mg PO BID 10/26/21 07/27/22 acetaminophen 500 mg tablet 2 tab PO Q8H 02/11/22 07/27/22 cholecalciferol (vitamin D3) 50 1 tab PO DAILY 02/11/22 07/27/22 mcg (2,000 unit) tablet (Vitamin D3) famotidine 40 mg tablet 1 tab PO BEDTIME 02/11/22 07/27/22 hydroxyzine pamoate 50 mg capsule 1 cap PO BID PRN Anxiety 02/11/22 07/27/22 linaclotide 290 mcg capsule 1 cap PO DAILY 02/11/22 07/27/22 (Linzess) ondansetron 4 mg disintegrating 1 tab PO Q8H PRN nausea 02/11/22 07/27/22 tablet pantoprazole 40 mg tablet,delayed 40 mg PO DAILY@0630 02/11/22 07/27/22 release blood sugar diagnostic (Tianji 08/15/22 Verio test strips) blood-glucose meter (Lavaboomuch 08/15/22 Verio Meter) lancets 33 gauge (ChemayiTouch Delica 08/15/22 Lancets) tolterodine 4 mg capsule,extended 4 mg PO DAILY 08/15/22 release 24 hr Previous Rx's Medication Instructions Recorded vitamin B complex (B 1 tab PO DAILY #30 tabs 07/13/21 Complex-Vitamin B12 tablet) blood pressure monitor (Blood #1 ea 10/31/21 Pressure Kit) atorvastatin 20 mg tablet 20 mg PO DAILY #90 tabs 01/27/22 BATH CHAIR #1 ea 01/31/22 CANE #1 ea 01/31/22 LIFELINE ALERT SYSTEM #1 ea 01/31/22 WRIST BRACE #1 ea 01/31/22 ALCOHOL PADS #100 ea 02/21/22 glucagon 1 mg solution for 1 mg IVPUSH ONCE PRN hypoglycemia 03/09/22 injection (GlucaGen HypoKit) below 55 #1 ea lidocaine 5 % topical patch 1 patch topical DAILY 30 days #30 03/09/22 (Lidoderm) ea diphenhydramine HCl 25 mg capsule 25 mg PO BEDTIME PRN sleep #90 caps 03/10/22 (Benadryl) codeine 10 mg-guaifenesin 100 mg/5 10 ml PO Q6H PRN cough #237 mL 04/02/22 mL oral liquid acarbose 25 mg tablet 25 mg PO TID #90 tabs 04/13/22 oxycodone 5 mg tablet 5 mg PO Q6H PRN pain #14 tabs 04/25/22 terconazole 0.8 % vaginal cream 1 appful vaginal BEDTIME 04/25/22 Candidiasis vaginitis 3 days #20 grams sucralfate 100 mg/mL oral 10 ml PO BID #420 mL 05/17/22 suspension (Carafate) polyethylene glycol 3350 17 gram 17 g PO DAILY #30 ea 05/22/22 oral powder packet (Miralax) ROLLATOR #1 ea 05/23/22 food supplemt, lactose-reduced 1 ea PO TID 30 days #5,688 mL 05/23/22 (Ensure High Protein oral liquid) WRIST SPLINT Right and Left hand #1 ea 05/30/22 ENSURE once a day #90 ea 06/08/22 SHOWER BAR #1 ea 06/08/22 SHOWER WAND #1 ea 06/08/22 ondansetron 4 mg disintegrating 4 mg PO Q8H PRN nausea and 06/10/22 tablet vomiting #10 tabs acetaminophen 160 mg/5 mL oral 500 mg (15.625 mL) PO QID PRN 06/26/22 suspension (Children's Tylenol) pain, temp 7 days #120 mL sucralfate 1 gram tablet 1 g PO TID #90 tabs 07/06/22 Bed pads #100 ea 07/17/22 Bedside commode #1 ea 07/17/22 SANITARY PADS #100 ea 07/17/22 dicyclomine 20 mg tablet 20 mg PO BID #60 tabs 07/21/22 tramadol 50 mg tablet 50 mg PO Q6H PRN pain 30 days #60 07/21/22 tabs ascorbate calcium (vitamin C) 814 407 mg PO DAILY #60 grams 07/25/22 mg/gram oral powder ferrous sulfate 15 mg iron (75 15 mg PO DAILY #120 mL 07/25/22 mg)/mL oral syringe (ORAL USE) bisacodyl 10 mg rectal suppository 10 mg [place] DAILY PRN constipation 07/27/22 (Dulcolax (bisacodyl)) #12 ea fluticasone propionate 50 1 spray intranasal DAILY #100 mL 07/27/22 mcg/actuation nasal spray,suspension (Flonase Allergy Relief) lidocaine HCl 2 % mucosal solution 1 appl mucous membrane TID PRN 07/27/22 (Lidocaine Viscous) pain #100 mL simethicone 40 mg/0.6 mL oral 0.6 ml PO BID-TID PRN abdominal 07/27/22 drops,suspension distention #15 mL Magic Mouthwash 5 ml PO .Q.a.c. #240 mL 07/29/22 Diphen/Lido/Antacid 1:1:1 240 mL suspension lorazepam 1 mg tablet 1 mg PO TID PRN anxiety #10 tabs 07/29/22 cyclobenzaprine 5 mg tablet 5 mg PO BEDTIME PRN muscle spasm 08/03/22 15 days #45 tabs aluminum-mag hydroxide-simethicone 5 ml PO 5XD PRN dyspepsia #355 mL 08/19/22 200 mg-200 mg-20 mg/5 mL oral susp (Maalox Advanced) lorazepam 1 mg tablet (Ativan) 1 mg PO BID PRN anxiety #14 tabs 08/20/22 <Kaylah Alejo CNP - Last Filed: 08/20/22 18:46> Allergies/Adverse Reactions: Allergies Allergy/AdvReac Type Severity Reaction Status Date / Time tomato [TOMATO] Allergy Mild HIVES Verified 08/20/22 18:46 DIFFICULTY BREATHING hydrocodone [HYDROCODONE] Allergy Unknown RASH, Verified 08/20/22 18:46 AIRWAY CLOSES ibuprofen [From MOTRIN] Allergy Unknown STOMACH Verified 08/20/22 18:46 UPSET, vomiting trazodone [TRAZODONE] Allergy Unknown UNKNOWN, Verified 08/20/22 18:46 stomach upset black pepper [BLACK PEPPER] AdvReac Severe DIFFICULTY Verified 08/20/22 18:46 BREATHING, hives lisinopril AdvReac Severe Anaphylaxis Verified 08/20/22 18:46 <Kaylah Alejo CNP - Last Filed: 08/20/22 18:46> Review of Systems Review of Systems Yes all other systems are reviewed and are negative <Luis Enrique Carias MD - Last Filed: 08/21/22 00:50> PMFSH Past Medical History Medical History: 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 Diverticulosis GERD (gastroesophageal reflux disease) History of bipolar disorder History of schizophrenia Hypercholesterolemia Hypertension Insomnia Numbness of left hand Renal calculi Spondylosis of lumbar spine Type 2 diabetes mellitus with hyperglycemia Vitamin D deficiency <Kaylah Alejo CNP - Last Filed: 08/20/22 18:46> Surgical History: Surgical History H/O: hysterectomy History of tubal ligation Hx of bariatric surgery <Kaylah Alejo CNP - Last Filed: 08/20/22 18:46> Family History Family History: Family History Father Medical history unknown Mother Medical history unknown Paternal Aunt Uterine cancer Diabetes Hypertension Paternal Uncle Liver cancer Heart attack Maternal Aunt Stroke Family/Other Chronic mental illness Sister Uterine cancer Schizophrenia Brother Substance abuse Other Mental health disorder <Kaylah Alejo CNP - Last Filed: 08/20/22 18:46> Social History Social History: Social History Household Members: None Housing: Apartment Do you presently have visiting nurse or other home services: Yes Alcohol intake: never Patient Tobacco Use Status: Never used Tobacco e-Cigarette/Vaping Use: Never Used Second Hand Smoke Exposure: No Advance Directives: No Advance Directives Information Provided: No service: No Current occupational status: disabled Current occupational exposures/hazards: No Cognitive needs: No Hearing needs: No Vision needs: No <Kaylah Alejo CNP - Last Filed: 08/20/22 18:46> Physical Exam ED Vital Signs: Vital Signs - 24 hr 08/20/22 18:42 Temperature 97.3 F Pulse Rate 68 Respiratory Rate 18 Blood Pressure 134/63 Pulse Oximetry 95 Oxygen Delivery Method Room Air BMI result Body Mass Index 19.2 <Kaylah Alejo CNP - Last Filed: 08/20/22 18:46> Vital Signs - 24 hr 08/20/22 18:42 Temperature 97.3 F Pulse Rate 68 Respiratory Rate 18 Blood Pressure 134/63 Pulse Oximetry 95 Oxygen Delivery Method Room Air BMI result Body Mass Index 19.2 <Luis Enrique Carias MD - Last Filed: 08/21/22 00:50> Appearance: Alert. Oriented X3. No acute distress. Anxious Eyes: PERRLA, No Nystagmus ENT: Pharynx normal. Oral Mucosa moist no stridor Neck: Normal inspection. Neck supple. CVS: Normal heart rate and rhythm. Pulses normal. Respiratory: No respiratory distress. Equal air entry bilateral, no wheezing/rales/rhonchi Abdomen: Soft and nontender. Bowel sounds are present, no mass palpable, no CVA tenderness Skin: Skin warm and dry. Normal skin color. Normal skin turgor. Extremities: No lower extremity edema. No calf tenderness Neuro: Oriented X 3. No motor deficit. No sensory deficit.No cerebellar signs , cranial nerves II-XII intact <Luis Enrique Carias MD - Last Filed: 08/21/22 00:50> Course Course Course Narrative: This is an RME: Additional HPI, ROS, PE not included below will be deferred to primary provider.? Patient is a 41-year-old female who presents emergency department for evaluation of worsening left upper abdominal pain severe and blood in emesis/ saliva. Patient was evaluated here yesterday for similar symptoms (had labs, ABD CT) and was discharged home with prescription for Maalox and advised follow-up with GI. She reports continued sore throat, difficulty swallowing, belching, increased salivation. Reports many issues since gastric sleeve surgery September 2021 through [facility]. <Kaylah Alejo CNP - Last Filed: 08/20/22 18:46> Medical Decision Making Medical Decision Making MDM Narrative: Clinically patient anxiety and likely globus hystericus feeling unable to swallow saliva but after giving lidocaine viscous and Ativan patient is feeling much better now able to drink and eat in the ER will discharge patient home <Luis Enrique Carias MD - Last Filed: 08/21/22 00:50> Medications Administered Discontinued Medications Generic Name Dose Route Start Last Admin Trade Name Freq PRN Reason Stop Dose Admin Lidocaine HCl 15 ml 08/20/22 19:48 08/20/22 19:54 Lidocaine Hcl Viscous 2 % 15 Ml Solution MUCOUS MEM 08/20/22 19:49 15 ml ONCE ONE Administration Lorazepam 1 mg 08/20/22 19:48 08/20/22 19:53 Lorazepam 1 Mg Tablet PO 08/20/22 19:49 1 mg ONCE ONE Administration <Kaylah Alejo CNP - Last Filed: 08/20/22 18:46> Medications Administered Discontinued Medications Generic Name Dose Route Start Last Admin Trade Name Fabiola PRN Reason Stop Dose Admin Lidocaine HCl 15 ml 08/20/22 19:48 08/20/22 19:54 Lidocaine Hcl Viscous 2 % 15 Ml Solution MUCOUS MEM 08/20/22 19:49 15 ml ONCE ONE Administration Lorazepam 1 mg 08/20/22 19:48 08/20/22 19:53 Lorazepam 1 Mg Tablet PO 08/20/22 19:49 1 mg ONCE ONE Administration <Luis Enrique Carias MD - Last Filed: 08/21/22 00:50> Discharge Plan Discharge Clinical Impression: Globus pharyngeus, Anxiety <Kaylah Alejo CNP - Last Filed: 08/20/22 18:46> Patient Disposition: Home, Self-Care <Kaylah Alejo CNP - Last Filed: 08/20/22 18:46> Instructions: Esophageal Spasm (ED), Anxiety (ED) <Kaylah Alejo CNP - Last Filed: 08/20/22 18:46> Additional Instructions: Medication for anxiety as prescribed 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MEDSUPPLY Qty: 1 0RF Rx Instructions: As directed (DME) BATH CHAIR See Rx Instructions .Route .MEDSUPPLY Qty: 1 0RF Rx Instructions: As directed (DME) LIFELINE ALERT SYSTEM See Rx Instructions .Route .MEDSUPPLY Qty: 1 0RF Rx Instructions: As directed (DME) ALCOHOL PADS See Rx Instructions .Route .MEDSUPPLY Qty: 100 3RF Rx Instructions: As directed lidocaine [Lidoderm] 5 % adhesive patch,medicated 1 patch topical DAILY 30 Days Qty: 30 3RF Rx Instructions: leave on most painful area for up to 12 hrs diphenhydramine HCl [Benadryl] 25 mg capsule 25 mg PO BEDTIME PRN (Reason: sleep) Qty: 90 2RF polyethylene glycol 3350 [Miralax] 17 gram powder in packet 17 g PO DAILY Qty: 30 5RF (DME) ROLLATOR See Rx Instructions .Route .MEDSUPPLY Qty: 1 0RF Rx Instructions: As directed Ensure High Protein Liquid 1 ea PO TID 30 Days Qty: 5688 0RF (DME) WRIST SPLINT Right and Left hand See Rx Instructions .Route .MEDSUPPLY Qty: 1 0RF Rx Instructions: As directed (DME) SHOWER WAND See Rx Instructions .Route .MEDSUPPLY Qty: 1 0RF Rx Instructions: As directed ([facility] [place]) SHOWER BAR See Rx Instructions .Route .MEDSUPPLY Qty: 1 0RF Rx Instructions: As directed (DME) ENSURE once a day See Rx Instructions .Route .MEDSUPPLY Qty: 90 0RF Rx Instructions: As directed acetaminophen [Children's Tylenol] 160 mg/5 mL suspension 500 mg PO QID PRN (Reason: pain, temp) 7 Days Qty: 120 0RF (DME) Bedside commode See Rx Instructions .Route .MEDSUPPLY Qty: 1 0RF Rx Instructions: As directed (DME) Bed pads See Rx Instructions .Route .MEDSUPPLY Qty: 100 12RF Rx Instructions: As directed (DME) SANITARY PADS See Rx Instructions .Route .MEDSUPPLY Qty: 100 12RF Rx Instructions: As directed dicyclomine 20 mg tablet 20 mg PO BID Qty: 60 2RF tramadol 50 mg tablet 50 mg PO Q6H PRN (Reason: pain) 30 Days Qty: 60 1RF ferrous sulfate 15 mg iron (75 mg)/mL syringe 15 mg PO DAILY Qty: 120 0RF ascorbate calcium (vitamin C) 814 mg/gram powder 407 mg PO DAILY Qty: 60 0RF cyclobenzaprine 5 mg tablet 5 mg PO BEDTIME PRN (Reason: muscle spasm) 15 Days Qty: 45 0RF venlafaxine 150 mg capsule,extended release 24hr 1 cap PO DAILY quetiapine 50 mg tablet 1 tab PO BID codeine-guaifenesin 10-100 mg/5 mL liquid 10 ml PO Q6H PRN (Reason: cough) Qty: 237 0RF terconazole 0.8 % cream 1 appful vaginal BEDTIME 3 Days Qty: 20 0RF oxycodone 5 mg tablet 5 mg PO Q6H PRN (Reason: pain) Qty: 14 0RF Rx Instructions: Partial Fill upon patient request. sucralfate [Carafate] 100 mg/mL suspension 10 ml PO BID Qty: 420 0RF ondansetron 4 mg tablet,disintegrating 4 mg PO Q8H PRN (Reason: nausea and vomiting) Qty: 10 0RF sucralfate 1 gram tablet 1 g PO TID Qty: 90 0RF Magic Mouthwash Diphen/Lido/Antacid 1:1:1 240 mL suspension 5 ml PO .Q.a.c. Qty: 240 1RF Rx Instructions: Lidocaine Viscous 2 % 80mL; diphenhydramine 12.5 mg/5 mL 80mL; aluminum-mag hydrox-simeth [id number]/5mL 80mL. 5-10 mL gargle and swallow up to 4 times a day lorazepam 1 mg tablet 1 mg PO TID PRN (Reason: anxiety) Qty: 10 0RF alum-mag hydroxide-simeth [Maalox Advanced] 200-200-20 mg/5 mL suspension 5 ml PO 5XD PRN (Reason: dyspepsia) Qty: 355 0RF Rx Instructions: administer between meals and at bedtime famotidine 40 mg tablet 1 tab PO BEDTIME hydroxyzine pamoate 50 mg capsule 1 cap PO BID PRN (Reason: Anxiety) acetaminophen 500 mg tablet 2 tab PO Q8H ondansetron 4 mg tablet,disintegrating 1 tab PO Q8H PRN (Reason: nausea) cholecalciferol (vitamin D3) [Vitamin D3] 50 mcg (2,000 unit) tablet 1 tab PO DAILY Linzess 290 mcg capsule 1 cap PO DAILY pantoprazole 40 mg tablet,delayed release (DR/EC) 40 mg PO DAILY@0630 zolpidem 10 mg tablet 10 mg PO BEDTIME PRN (Reason: Sleep) lactulose 10 gram/15 mL solution 10 g PO DAILY ziprasidone HCl 20 mg capsule 20 mg PO BID quetiapine 400 mg tablet 400 mg PO BEDTIME ursodiol 300 mg capsule 300 mg PO BID clonazepam 1 mg tablet 1 mg PO TID bisacodyl [Dulcolax (bisacodyl)] 10 mg suppository 10 mg [place] DAILY PRN (Reason: constipation) Qty: 12 0RF simethicone 40 mg/0.6 mL drops,suspension 0.6 ml PO BID-TID PRN (Reason: abdominal distention) Qty: 15 0RF fluticasone propionate [Flonase Allergy Relief] 50 mcg/actuation spray,suspension 1 spray intranasal DAILY Qty: 100 0RF Rx Instructions: administer into each nostril lidocaine HCl [Lidocaine Viscous] 2 % solution 1 appl mucous membrane TID PRN (Reason: pain) Qty: 100 0RF GlucaGen HypoKit 1 mg recon soln 1 mg IVPUSH ONCE PRN (Reason: hypoglycemia below 55) Qty: 1 0RF acarbose 25 mg tablet 25 mg PO TID Qty: 90 3RF (DME) blood-glucose meter [OneTouch Verio Meter] [facility] See Rx Instructions .ROUTE Rx Instructions: As directed (DME) OneTouch Verio test strips Strip See Rx Instructions .ROUTE Rx Instructions: As directed 3 times a day (DME) lancets [OneTouch Delica Lancets] [facility] See Rx Instructions .ROUTE Rx Instructions: As directed 3 times a day tolterodine 4 mg capsule,extended release 24hr 4 mg PO DAILY <Kaylah Alejo CNP - Last Filed: 08/20/22 18:46> Interventions: ED Discharge Assessment Last Done: 08/20/22 21:59 <Kaylah Alejo CNP - Last Filed: 08/20/22 18:46> Discharge Date/Time: 08/20/22 22:00 <Kaylah Alejo CNP - Last Filed: 08/20/22 18:46>
[2022-08-20 18:42] VITALS: BP 134/63; PULSE 68; RESP 18; TEMP 36.3; O2SAT 95; BMI 19.2
[2022-08-20] MEDS: LORazepam 1 MG TABLET PO (19:53)
[2022-08-20] MEDS: Lidocaine HCl Viscous 2 % 15 ML SOLUTION MUCOUS MEM (19:54)
--- NOTE | 2022-08-20 20:23 | PC.NURSE ---
Pt c/o N/V with throat pain, left sided abd pain, seen yesterday for similar symptoms without any relief, medicated with ativan and viscous lidocaine
== END 2022-08-20 22:00 | disposition home or self-care (01) ==
PROVIDERS: Emergency Provider Internal Medicine; PCP Internal Medicine
DX: R10.9 Unspecified abdominal pain (principal); R13.10 Dysphagia, unspecified; G89.29 Other chronic pain; F41.1 Generalized anxiety disorder; F43.0 Acute stress reaction; Z98.84 Bariatric surgery status; Z79.899 Other long term (current) drug therapy
CPT/HCPCS: 99283

== ENCOUNTER 2022-08-22 12:13 | Outpatient (REF) | payer OTHER, SELFPAY | END 2022-08-22 12:14 | disposition home or self-care (01) | LOC: HO.MDS 12:13 | PROVIDERS: Visit Provider Internal Medicine | DX: D50.9 Iron deficiency anemia, unspecified (principal) | CPT/HCPCS: 96365; J1756 ==

== ENCOUNTER 2022-08-28 10:03 | Outpatient (REF) | payer OTHER, SELFPAY ==
--- NOTE | ~2022-08-28 | FL_ITS ---
EXAMINATION: FL BARIUM SWALLOW CLINICAL INFORMATION: Dysphagia COMPARISON: None TECHNIQUE: Barium swallow examination is performed using fluoroscopic evaluation in addition to multiple fluoroscopic spot views. The patient is imaged in upright view using both thick, thin barium sulfate and barium coated turkey. Fluoroscopy time: 1.5 minutes DAP: 4.65 Gycm2 Images: 64 FINDINGS: Following oral administration of thick and thick barium there is normal propagation of bolus from the oral cavity through the pharynx, esophagus into stomach. On oral administration of barium coated turkey there is normal propagation of bolus from oral cavity into the esophagus. There is mild thickening and irregularity of the distal esophageal There is narrowing or stricture at the gastroesophageal junction suspected. However this is not visualized with thin or thick barium administration. FL/FL barium swallow IMPRESSION: Mild thickening and irregularity of the distal esophagus question esophagitis. There is mild narrowing seen at the gastroesophageal junction only with solid foods. This was not visualized with thin or thick barium. Consider endoscopy for further evaluation.
== END 2022-08-28 10:04 | disposition home or self-care (01) ==
LOC: HO.XRAY 10:03
PROVIDERS: PCP Internal Medicine; Visit Provider Internal Medicine
DX: R13.10 Dysphagia, unspecified (principal)
CPT/HCPCS: 74220

== ENCOUNTER 2022-09-03 11:09 | Emergency (ER) | payer OTHER, SELFPAY ==
--- NOTE | ~2022-09-03 | CT_ITS ---
EXAMINATION: CT abdomen pelvis w IV con CLINICAL INFORMATION: Reason for Exam gastric sleeve in the past with epigastric pain COMPARISON: Most recent prior CT July 2022 TECHNIQUE: Multidetector volumetric imaging was performed from the superior aspect of the liver through the pubic symphysis 85 mL Omnipaque 350 injected Sagittal and coronal reformatted images were obtained on the technologist's workstation. This CT examination was performed using dose optimization techniques as appropriate, variously including the following: *Automated exposure control *Adjustment of mA and/or kV according to patient size (this includes techniques or standardized protocols for targeted exams where dose is matched to indication/reason for exam; i.e. extremities or head) *Use of iterative reconstruction technique DLP: 291 mGy-cm FINDINGS: LOWER THORAX: Included lung bases are clear. HEPATOBILIARY: Tiny hypodensities in the liver less than 5 mm too small to characterize, these most commonly found to be tiny liver cyst unchanged from prior exams. No suspicious solid liver lesion. GALLBLADDER: Gallbladder unremarkable. SPLEEN: Spleen is normal in size. PANCREAS: Redemonstration of few pancreatic calcifications might be sequela of prior or chronic pancreatitis. No pancreatic mass, no CT evidence of acute pancreatitis. STOMACH AND GASTROINTESTINAL TRACT: Postsurgical changes, partial gastrectomy. No dehiscence. There is no bowel distention or thickening. No CT evidence of appendicitis. ADRENALS: No adrenal nodules. KIDNEYS/URETERS: No hydronephrosis, stones or solid mass lesions. URINARY BLADDER: Partially decompressed. PELVIC VISCERA: Unremarkable PERITONEUM: No free air or fluid. LYMPH NODES: No lymphadenopathy. VASCULAR:Abdominal aorta normal in size, no aneurysm found. BONES, ABDOMINAL WALL AND SOFT TISSUES: Age-appropriate changes of the spine and skeletal system, no destructive osteolytic or osteosclerotic bone lesion found CT/CT abdomen pelvis w IV con IMPRESSION: * No CT evidence of acute intra-abdominal process to explain patient's pain symptoms. * Postsurgical changes, partial gastrectomy, no evidence of obstruction or dehiscence. * Stable tiny hypodensities in the liver less than 5 mm too small to characterize, these most commonly found to be tiny liver cysts. * Redemonstration of few pancreatic calcifications might be sequela of prior or chronic pancreatitis. No CT evidence of acute pancreatitis.
[2022-09-03 11:14] VITALS: BP 99/69; PULSE 88; RESP 16; TEMP 36.6; O2SAT 94; BMI 20.2
--- NOTE | 2022-09-03 11:24 | ED.ABDPAIN ---
HPI - Abdominal Pain General Chief Complaint: Abdominal Pain <NOEL Lennon Last Filed: 09/03/22 11:31> Stated Complaint: stomach issues <NOEL Lennon Last Filed: 09/03/22 11:31> Time Seen by Provider: 09/03/22 12:12 <NOEL Lennon Last Filed: 09/03/22 11:31> Source: patient <DO Matt Weiner Last Filed: 09/03/22 15:41> Mode of arrival: ambulatory <DO Matt Weiner Last Filed: 09/03/22 15:41> Limitations: no limitations <DO Matt Weiner Last Filed: 09/03/22 15:41> History of Present Illness HPI narrative: 41-year-old female presents emergency department with abdominal pain she had a barium swallow here just a few days ago for the same thing. She had her gastric sleeve done at another hospital. Comes in here for pain. She denies fevers chills denies any nausea vomiting. 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 She states she still came here as she is anxious and has a headache. <DO Matt Weiner Last Filed: 09/03/22 15:41> MD elicited complaint: abdominal pain <Raymundo Stanley DO - Last Filed: 09/03/22 15:41> Related Data Home Medications: Home Medications Medication Instructions Recorded Confirmed lactulose 10 gram/15 mL oral 10 g PO DAILY 08/27/20 07/27/22 solution zolpidem 10 mg tablet 10 mg PO BEDTIME PRN Sleep 08/27/20 07/27/22 quetiapine 50 mg tablet 1 tab PO BID 09/22/21 07/27/22 venlafaxine 150 mg 1 cap PO DAILY 09/22/21 07/27/22 capsule,extended release 24 hr clonazepam 1 mg tablet 1 mg PO TID 10/26/21 07/27/22 quetiapine 400 mg tablet 400 mg PO BEDTIME 10/26/21 07/27/22 ursodiol 300 mg capsule 300 mg PO BID 10/26/21 07/27/22 ziprasidone HCl 20 mg capsule 20 mg PO BID 10/26/21 07/27/22 acetaminophen 500 mg tablet 2 tab PO Q8H 02/11/22 07/27/22 cholecalciferol (vitamin D3) 50 1 tab PO DAILY 02/11/22 07/27/22 mcg (2,000 unit) tablet (Vitamin D3) famotidine 40 mg tablet 1 tab PO BEDTIME 02/11/22 07/27/22 hydroxyzine pamoate 50 mg capsule 1 cap PO BID PRN Anxiety 02/11/22 07/27/22 linaclotide 290 mcg capsule 1 cap PO DAILY 02/11/22 07/27/22 (Linzess) ondansetron 4 mg disintegrating 1 tab PO Q8H PRN nausea 02/11/22 07/27/22 tablet pantoprazole 40 mg tablet,delayed 40 mg PO DAILY@0630 02/11/22 07/27/22 release blood sugar diagnostic (Flinqer 08/15/22 Verio test strips) blood-glucose meter (Simple ITuch 08/15/22 Verio Meter) lancets 33 gauge (Gov-SavingsTouch Delica 08/15/22 Lancets) tolterodine 4 mg capsule,extended 4 mg PO DAILY 08/15/22 release 24 hr Previous Rx's Medication Instructions Recorded vitamin B complex (B 1 tab PO DAILY #30 tabs 07/13/21 Complex-Vitamin B12 tablet) blood pressure monitor (Blood #1 ea 10/31/21 Pressure Kit) atorvastatin 20 mg tablet 20 mg PO DAILY #90 tabs 01/27/22 BATH CHAIR #1 ea 01/31/22 CANE #1 ea 01/31/22 LIFELINE ALERT SYSTEM #1 ea 01/31/22 WRIST BRACE #1 ea 01/31/22 ALCOHOL PADS #100 ea 02/21/22 glucagon 1 mg solution for 1 mg IVPUSH ONCE PRN hypoglycemia 03/09/22 injection (GlucaGen HypoKit) below 55 #1 ea lidocaine 5 % topical patch 1 patch topical DAILY 30 days #30 03/09/22 (Lidoderm) ea diphenhydramine HCl 25 mg capsule 25 mg PO BEDTIME PRN sleep #90 caps 03/10/22 (Benadryl) codeine 10 mg-guaifenesin 100 mg/5 10 ml PO Q6H PRN cough #237 mL 04/02/22 mL oral liquid acarbose 25 mg tablet 25 mg PO TID #90 tabs 04/13/22 oxycodone 5 mg tablet 5 mg PO Q6H PRN pain #14 tabs 04/25/22 terconazole 0.8 % vaginal cream 1 appful vaginal BEDTIME 04/25/22 Candidiasis vaginitis 3 days #20 grams sucralfate 100 mg/mL oral 10 ml PO BID #420 mL 05/17/22 suspension (Carafate) polyethylene glycol 3350 17 gram 17 g PO DAILY #30 ea 05/22/22 oral powder packet (Miralax) ROLLATOR #1 ea 05/23/22 food supplemt, lactose-reduced 1 ea PO TID 30 days #5,688 mL 05/23/22 (Ensure High Protein oral liquid) WRIST SPLINT Right and Left hand #1 ea 05/30/22 ENSURE once a day #90 ea 06/08/22 SHOWER BAR #1 ea 06/08/22 SHOWER WAND #1 ea 06/08/22 ondansetron 4 mg disintegrating 4 mg PO Q8H PRN nausea and 06/10/22 tablet vomiting #10 tabs acetaminophen 160 mg/5 mL oral 500 mg (15.625 mL) PO QID PRN 06/26/22 suspension (Children's Tylenol) pain, temp 7 days #120 mL sucralfate 1 gram tablet 1 g PO TID #90 tabs 07/06/22 Bed pads #100 ea 07/17/22 Bedside commode #1 ea 07/17/22 SANITARY PADS #100 ea 07/17/22 dicyclomine 20 mg tablet 20 mg PO BID #60 tabs 07/21/22 tramadol 50 mg tablet 50 mg PO Q6H PRN pain 30 days #60 07/21/22 tabs ascorbate calcium (vitamin C) 814 407 mg PO DAILY #60 grams 07/25/22 mg/gram oral powder ferrous sulfate 15 mg iron (75 15 mg PO DAILY #120 mL 07/25/22 mg)/mL oral syringe (ORAL USE) bisacodyl 10 mg rectal suppository 10 mg [place] DAILY PRN constipation 07/27/22 (Dulcolax (bisacodyl)) #12 ea fluticasone propionate 50 1 spray intranasal DAILY #100 mL 07/27/22 mcg/actuation nasal spray,suspension (Flonase Allergy Relief) simethicone 40 mg/0.6 mL oral 0.6 ml PO BID-TID PRN abdominal 07/27/22 drops,suspension distention #15 mL Magic Mouthwash 5 ml PO .Q.a.c. #240 mL 07/29/22 Diphen/Lido/Antacid 1:1:1 240 mL suspension lorazepam 1 mg tablet 1 mg PO TID PRN anxiety #10 tabs 07/29/22 cyclobenzaprine 5 mg tablet 5 mg PO BEDTIME PRN muscle spasm 08/03/22 15 days #45 tabs lorazepam 1 mg tablet (Ativan) 1 mg PO BID PRN anxiety #14 tabs 08/20/22 aluminum-mag hydroxide-simethicone 5 ml PO 5XD PRN dyspepsia #355 mL 08/21/22 200 mg-200 mg-20 mg/5 mL oral susp (Maalox Advanced) lidocaine HCl 2 % mucosal solution 1 appl mucous membrane TID PRN 08/21/22 (Lidocaine Viscous) pain #100 mL dicyclomine 10 mg/5 mL oral 10 mg (5 mL) PO BID Abdominal pain 09/03/22 solution #473 mL <NOEL Lennon - Last Filed: 09/03/22 11:31> Allergies/Adverse Reactions: Allergies Allergy/AdvReac Type Severity Reaction Status Date / Time tomato [TOMATO] Allergy Mild HIVES Verified 09/03/22 11:13 DIFFICULTY BREATHING hydrocodone [HYDROCODONE] Allergy Unknown RASH, Verified 09/03/22 11:13 AIRWAY CLOSES ibuprofen [From MOTRIN] Allergy Unknown STOMACH Verified 09/03/22 11:13 UPSET, vomiting trazodone [TRAZODONE] Allergy Unknown UNKNOWN, Verified 09/03/22 11:13 stomach upset black pepper [BLACK PEPPER] AdvReac Severe DIFFICULTY Verified 09/03/22 11:13 BREATHING, hives lisinopril AdvReac Severe Anaphylaxis Verified 09/03/22 11:13 <NOEL Lennon - Last Filed: 09/03/22 11:31> Review of Systems Review of Systems Review of systems: General: Patient denies any fever chills recent illness or falls Musculoskeletal: Denies back pain or body aches or other injuries HEENT: denies headache, runny nose, ear pain Respiratory: denies shortness of breath, cough Cardiovascular: no chest pain or palpitations : denies dysuria, frequency Abdomen: no nausea vomiting she does have epigastric abdominal pain Extremities: no swelling, no pain Skin: no diaphoresis <Raymundo Stanley DO - Last Filed: 09/03/22 15:41> Yes all other systems are reviewed and are negative <Raymundo Stanley DO - Last Filed: 09/03/22 15:41> [facility] Past Medical History Medical History: 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 Diverticulosis GERD (gastroesophageal reflux disease) History of bipolar disorder History of schizophrenia Hypercholesterolemia Hypertension Insomnia Numbness of left hand Renal calculi Spondylosis of lumbar spine Type 2 diabetes mellitus with hyperglycemia Vitamin D deficiency <NOEL Lennon Last Filed: 09/03/22 11:31> Surgical History: Surgical History H/O: hysterectomy History of tubal ligation Hx of bariatric surgery <NOEL Lennon Last Filed: 09/03/22 11:31> Family History Family History: Family History Father Medical history unknown Mother Medical history unknown Paternal Aunt Uterine cancer Diabetes Hypertension Paternal Uncle Liver cancer Heart attack Maternal Aunt Stroke Family/Other Chronic mental illness Sister Uterine cancer Schizophrenia Brother Substance abuse Other Mental health disorder <NOEL Lennon Last Filed: 09/03/22 11:31> Social History Social History: Social History Household Members: None Housing: Apartment Do you presently have visiting nurse or other home services: Yes Alcohol intake: never Patient Tobacco Use Status: Never used Tobacco e-Cigarette/Vaping Use: Never Used Second Hand Smoke Exposure: No Advance Directives: No Advance Directives Information Provided: No service: No Current occupational status: disabled Current occupational exposures/hazards: No Cognitive needs: No Hearing needs: No Vision needs: No <NOEL Lennon Last Filed: 09/03/22 11:31> Physical Exam ED Vital Signs: Vital Signs - 24 hr 09/03/22 11:14 09/03/22 14:23 Temperature 97.9 F 98.3 F Pulse Rate 88 73 Respiratory Rate 16 16 Blood Pressure 99/69 107/69 Pulse Oximetry 94 99 Oxygen Delivery Method Room Air Room Air BMI result Body Mass Index 20.2 <NOEL Lennon - Last Filed: 09/03/22 11:31> Vital Signs - 24 hr 09/03/22 11:14 09/03/22 14:23 Temperature 97.9 F 98.3 F Pulse Rate 88 73 Respiratory Rate 16 16 Blood Pressure 99/69 107/69 Pulse Oximetry 94 99 Oxygen Delivery Method Room Air Room Air BMI result Body Mass Index 20.2 <Raymundo Stanley DO - Last Filed: 09/03/22 15:41> General: Well-appearing well-nourished in no signs of distress HEENT: Normocephalic atraumatic Neck: No signs of JVD, no masses no tenderness or lymphadenopathy Cardiovascular: Regular rate and rhythm Respiratory: Clear to auscultation bilaterally Abdomen: Soft nontender no masses rectal exam performed guiac negative quality assurance consultant confirmed. Extremities: Normal pedal pulses no signs of edema Skin: Dry warm no rashes Back: No tenderness full ROM <Raymundo Stanley DO - Last Filed: 09/03/22 15:41> Course Course Course Narrative: RME--41-year-old female with past history gastric sleeve last September at [facility] presenting the ED complaining of epigastric/upper abdominal pain x 1 mos with associated nausea, vomiting and diarrhea. reports feels like something is stuck. Also reports dizziness. Recent barium swallow which showed mild thickening suggestive of esophagitis EKG, Labs, UA, IVF ordered <NOEL Lennon Last Filed: 09/03/22 11:31> Medical Decision Making Medical Decision Making MDM Narrative: Also patient for CT scan will check labs give patient fluids and reassess. [id number] patient is sleeping in the room patient feeling much better labs and CT scan are negative I do not have reason to admit this patient she has follow-up with GI to have some Renita dilation of her esophagus as well as follow-up with her surgeon at another hospital she is happy this plan to go home. <Raymundo Stanley DO - Last Filed: 09/03/22 15:41> Differential Diagnosis Differential Diagnoses: The differential diagnosis associated with the presentation includes <Raymundo Stanley DO - Last Filed: 09/03/22 15:41> Concern for complications related to gastric sleeve or food bolus impaction <Raymundo Stanley DO - Last Filed: 09/03/22 15:41> Lab Data Result Diagrams: 09/03/22 11:46 09/03/22 11:46 <NOEL Lennon - Last Filed: 09/03/22 11:31> Labs: Lab Results 09/03/22 09/03/22 09/03/22 Range/Units 11:46 11:46 11:46 WBC 3.9 L (4.8-10.8) X10*3/uL RBC 4.81 (4.20-5.50) X10*6/uL Hgb 11.3 L (12.0-16.0) g/dl Hct 36.0 L (37.0-47.0) % MCV 74.8 L (80.0-98.0) fL MCH 23.5 L (27.0-33.0) pg MCHC 31.4 (31.0-35.0) g/dl RDW 21.3 H (11.0-16.0) % Plt Count 425 H (160-400) X10*3/uL MPV 9.6 (9.4-12.3) fL Immature Gran % (Auto) 0.5 H (0.0-0.4) % Neut % (Auto) 68.4 (45-73) % Lymph % (Auto) 21.6 (20-40) % [place] % (Auto) 8.2 (2-11) % Eos % (Auto) 0.8 (0-4) % Baso % (Auto) 0.5 (0-2) % Lymph # (Auto) 0.8 L (1.2-4.9) X10*3/uL [place] # (Auto) 0.3 (0.1-1.2) X10*3/uL Eos # (Auto) 0.0 (0.0-0.4) X10*3/uL Baso # (Auto) 0.0 (0.0-0.2) X10*3/uL Abs Immat Gran (auto) 0.02 (0.00-0.03) X10*3/uL Absolute Neuts (auto) 2.7 (2.0-8.3) x10*3/uL Absolute Nucleated RBC 0.000 (0.0-0.012) X10*3/uL Nucleated RBC % (auto) 0.0 (0.0-0.2) /100WBC Sodium 138 (135-145) mmol/L Potassium 3.6 (3.3-5.1) mmol/L Chloride 103 (96-108) mmol/L Carbon Dioxide 24 (22-29) mmol/L Anion Gap 15 (12-20) BUN 13 (9-16) mg/dL Creatinine 0.72 (0.5-1.4) mg/dL Estim Creat Clear Calc 73.8 Estimated GFR > 60 Random Glucose 91 (60-115) mg/dL Calcium 9.3 (8.4-10.2) mg/dL Magnesium 1.8 (1.6-2.6) mg/dL Total Bilirubin 1.2 H (0.0-1.0) mg/dL Direct Bilirubin 0.3 (0.0-0.5) mg/dL AST 15 (5-31) U/L ALT 9 (0-31) U/L Alkaline Phosphatase 54 (39-117) U/L Troponin I High Sens (<3.5-17.0) ng/L Total Protein 6.6 (6.5-8.0) g/dL Albumin 4.3 (3.5-5.0) g/dL Lipase 11 (8-78) U/L Urine Color Urine Appearance Urine pH (5.0-9.0) Ur Specific [place] (1.005-1.025) Urine Protein (Neg-Trace) mg/dL Urine Glucose (UA) (Negative) mg/dL Urine Ketones (Negative) mg/dL Urine Blood (Negative) Urine Nitrite (Negative) Ur Leukocyte Esterase (Negative) Urine RBC (0-2) /HPF Urine WBC (0-5) /HPF Ur Squamous Epith Cells (0-2) /HPF Calcium Oxalate Crystal Urine Bacteria (None Seen) Hyaline Casts (0-2) /LPF COVID-19 (ANGELA) (Negative) COVID-19 Clin Com Influenza Type A (BRIDGER) Negative (Negative) Influenza Type B (BRIDGER) Negative (Negative) Influenza A & B Note See Note 09/03/22 09/03/22 09/03/22 Range/Units 11:46 11:46 11:59 WBC (4.8-10.8) X10*3/uL RBC (4.20-5.50) X10*6/uL Hgb (12.0-16.0) g/dl Hct (37.0-47.0) % MCV (80.0-98.0) fL MCH (27.0-33.0) pg MCHC (31.0-35.0) g/dl RDW (11.0-16.0) % Plt Count (160-400) X10*3/uL MPV (9.4-12.3) fL Immature Gran % (Auto) (0.0-0.4) % Neut % (Auto) (45-73) % Lymph % (Auto) (20-40) % [place] % (Auto) (2-11) % Eos % (Auto) (0-4) % Baso % (Auto) (0-2) % Lymph # (Auto) (1.2-4.9) X10*3/uL [place] # (Auto) (0.1-1.2) X10*3/uL Eos # (Auto) (0.0-0.4) X10*3/uL Baso # (Auto) (0.0-0.2) X10*3/uL Abs Immat Gran (auto) (0.00-0.03) X10*3/uL Absolute Neuts (auto) (2.0-8.3) x10*3/uL Absolute Nucleated RBC (0.0-0.012) X10*3/uL Nucleated RBC % (auto) (0.0-0.2) /100WBC Sodium (135-145) mmol/L Potassium (3.3-5.1) mmol/L Chloride (96-108) mmol/L Carbon Dioxide (22-29) mmol/L Anion Gap (12-20) BUN (9-16) mg/dL Creatinine (0.5-1.4) mg/dL Estim Creat Clear Calc Estimated GFR Random Glucose (60-115) mg/dL Calcium (8.4-10.2) mg/dL Magnesium (1.6-2.6) mg/dL Total Bilirubin (0.0-1.0) mg/dL Direct Bilirubin (0.0-0.5) mg/dL AST (5-31) U/L ALT (0-31) U/L Alkaline Phosphatase (39-117) U/L Troponin I High Sens < 3.5 (<3.5-17.0) ng/L Total Protein (6.5-8.0) g/dL Albumin (3.5-5.0) g/dL Lipase (8-78) U/L Urine Color Dark Yellow Urine Appearance Cloudy Urine pH 6.0 (5.0-9.0) Ur Specific [place] >= 1.030 H (1.005-1.025) Urine Protein 100 (2+) H (Neg-Trace) mg/dL Urine Glucose (UA) Negative (Negative) mg/dL Urine Ketones Trace (Negative) mg/dL Urine Blood Negative (Negative) Urine Nitrite Negative (Negative) Ur Leukocyte Esterase Small (1+) H (Negative) Urine RBC 0-2 (0-2) /HPF Urine WBC 0-5 (0-5) /HPF Ur Squamous Epith Cells >20 (0-2) /HPF Calcium Oxalate Crystal Present Urine Bacteria None Seen (None Seen) Hyaline Casts 3-5 (0-2) /LPF COVID-19 (ANGELA) Negative (Negative) COVID-19 Clin Com See Note Influenza Type A (BRIDGER) (Negative) Influenza Type B (BRIDGER) (Negative) Influenza A & B Note <NOEL Lennon - Last Filed: 09/03/22 11:31> Lab Results 09/03/22 09/03/22 09/03/22 Range/Units 11:46 11:46 11:46 WBC 3.9 L (4.8-10.8) X10*3/uL RBC 4.81 (4.20-5.50) X10*6/uL Hgb 11.3 L (12.0-16.0) g/dl Hct 36.0 L (37.0-47.0) % MCV 74.8 L (80.0-98.0) fL MCH 23.5 L (27.0-33.0) pg MCHC 31.4 (31.0-35.0) g/dl RDW 21.3 H (11.0-16.0) % Plt Count 425 H (160-400) X10*3/uL MPV 9.6 (9.4-12.3) fL Immature Gran % (Auto) 0.5 H (0.0-0.4) % Neut % (Auto) 68.4 (45-73) % Lymph % (Auto) 21.6 (20-40) % [place] % (Auto) 8.2 (2-11) % Eos % (Auto) 0.8 (0-4) % Baso % (Auto) 0.5 (0-2) % Lymph # (Auto) 0.8 L (1.2-4.9) X10*3/uL [place] # (Auto) 0.3 (0.1-1.2) X10*3/uL Eos # (Auto) 0.0 (0.0-0.4) X10*3/uL Baso # (Auto) 0.0 (0.0-0.2) X10*3/uL Abs Immat Gran (auto) 0.02 (0.00-0.03) X10*3/uL Absolute Neuts (auto) 2.7 (2.0-8.3) x10*3/uL Absolute Nucleated RBC 0.000 (0.0-0.012) X10*3/uL Nucleated RBC % (auto) 0.0 (0.0-0.2) /100WBC Sodium 138 (135-145) mmol/L Potassium 3.6 (3.3-5.1) mmol/L Chloride 103 (96-108) mmol/L Carbon Dioxide 24 (22-29) mmol/L Anion Gap 15 (12-20) BUN 13 (9-16) mg/dL Creatinine 0.72 (0.5-1.4) mg/dL Estim Creat Clear Calc 73.8 Estimated GFR > 60 Random Glucose 91 (60-115) mg/dL Calcium 9.3 (8.4-10.2) mg/dL Magnesium 1.8 (1.6-2.6) mg/dL Total Bilirubin 1.2 H (0.0-1.0) mg/dL Direct Bilirubin 0.3 (0.0-0.5) mg/dL AST 15 (5-31) U/L ALT 9 (0-31) U/L Alkaline Phosphatase 54 (39-117) U/L Troponin I High Sens (<3.5-17.0) ng/L Total Protein 6.6 (6.5-8.0) g/dL Albumin 4.3 (3.5-5.0) g/dL Lipase 11 (8-78) U/L Urine Color Urine Appearance Urine pH (5.0-9.0) Ur Specific [place] (1.005-1.025) Urine Protein (Neg-Trace) mg/dL Urine Glucose (UA) (Negative) mg/dL Urine Ketones (Negative) mg/dL Urine Blood (Negative) Urine Nitrite (Negative) Ur Leukocyte Esterase (Negative) Urine RBC (0-2) /HPF Urine WBC (0-5) /HPF Ur Squamous Epith Cells (0-2) /HPF Calcium Oxalate Crystal Urine Bacteria (None Seen) Hyaline Casts (0-2) /LPF COVID-19 (ANGELA) (Negative) COVID-19 Clin Com Influenza Type A (BRIDGER) Negative (Negative) Influenza Type B (BRIDGER) Negative (Negative) Influenza A & B Note See Note 09/03/22 09/03/22 09/03/22 Range/Units 11:46 11:46 11:59 WBC (4.8-10.8) X10*3/uL RBC (4.20-5.50) X10*6/uL Hgb (12.0-16.0) g/dl Hct (37.0-47.0) % MCV (80.0-98.0) fL MCH (27.0-33.0) pg MCHC (31.0-35.0) g/dl RDW (11.0-16.0) % Plt Count (160-400) X10*3/uL MPV (9.4-12.3) fL Immature Gran % (Auto) (0.0-0.4) % Neut % (Auto) (45-73) % Lymph % (Auto) (20-40) % [place] % (Auto) (2-11) % Eos % (Auto) (0-4) % Baso % (Auto) (0-2) % Lymph # (Auto) (1.2-4.9) X10*3/uL [place] # (Auto) (0.1-1.2) X10*3/uL Eos # (Auto) (0.0-0.4) X10*3/uL Baso # (Auto) (0.0-0.2) X10*3/uL Abs Immat Gran (auto) (0.00-0.03) X10*3/uL Absolute Neuts (auto) (2.0-8.3) x10*3/uL Absolute Nucleated RBC (0.0-0.012) X10*3/uL Nucleated RBC % (auto) (0.0-0.2) /100WBC Sodium (135-145) mmol/L Potassium (3.3-5.1) mmol/L Chloride (96-108) mmol/L Carbon Dioxide (22-29) mmol/L Anion Gap (12-20) BUN (9-16) mg/dL Creatinine (0.5-1.4) mg/dL Estim Creat Clear Calc Estimated GFR Random Glucose (60-115) mg/dL Calcium (8.4-10.2) mg/dL Magnesium (1.6-2.6) mg/dL Total Bilirubin (0.0-1.0) mg/dL Direct Bilirubin (0.0-0.5) mg/dL AST (5-31) U/L ALT (0-31) U/L Alkaline Phosphatase (39-117) U/L Troponin I High Sens < 3.5 (<3.5-17.0) ng/L Total Protein (6.5-8.0) g/dL Albumin (3.5-5.0) g/dL Lipase (8-78) U/L Urine Color Dark Yellow Urine Appearance Cloudy Urine pH 6.0 (5.0-9.0) Ur Specific [place] >= 1.030 H (1.005-1.025) Urine Protein 100 (2+) H (Neg-Trace) mg/dL Urine Glucose (UA) Negative (Negative) mg/dL Urine Ketones Trace (Negative) mg/dL Urine Blood Negative (Negative) Urine Nitrite Negative (Negative) Ur Leukocyte Esterase Small (1+) H (Negative) Urine RBC 0-2 (0-2) /HPF Urine WBC 0-5 (0-5) /HPF Ur Squamous Epith Cells >20 (0-2) /HPF Calcium Oxalate Crystal Present Urine Bacteria None Seen (None Seen) Hyaline Casts 3-5 (0-2) /LPF COVID-19 (ANGELA) Negative (Negative) COVID-19 Clin Com See Note Influenza Type A (BRIDGER) (Negative) Influenza Type B (BRIDGER) (Negative) Influenza A & B Note <Raymundo Stanley DO - Last Filed: 09/03/22 15:41> Medications Administered Discontinued Medications Generic Name Dose Route Start Last Admin Trade Name Freq PRN Reason Stop Dose Admin Acetaminophen 650 mg 09/03/22 13:37 09/03/22 14:11 Acetaminophen 325 Mg Tablet PO 09/03/22 13:38 Not Given ONCE ONE Barium Sulfate 450 ml 09/03/22 13:58 09/03/22 13:58 Barium Sulfate Oral (Vanilla) 450 Ml Oral.Susp PO 09/03/22 13:59 450 ml ONCE ONE Administration Sodium Chloride 1,000 mls @ 999 mls/hr 09/03/22 11:30 09/03/22 13:13 Ns IV 09/03/22 12:30 999 mls/hr .Q1H1M OSBALDO Administration Iohexol 100 ml 09/03/22 13:47 09/03/22 13:48 Iohexol 350 Mg/Ml 100 Ml Infus..Btl IV 09/03/22 13:48 85 ml ONCE ONE Administration Morphine Sulfate 4 mg 09/03/22 13:56 09/03/22 14:11 Morphine Sulfate 4 Mg/Ml Cartridge IVPUSH 09/03/22 13:57 4 mg ONCE ONE Administration Protocol <NOEL Lennon - Last Filed: 09/03/22 11:31> Medications Administered Discontinued Medications Generic Name Dose Route Start Last Admin Trade Name Freq PRN Reason Stop Dose Admin Acetaminophen 650 mg 09/03/22 13:37 09/03/22 14:11 Acetaminophen 325 Mg Tablet PO 09/03/22 13:38 Not Given ONCE ONE Barium Sulfate 450 ml 09/03/22 13:58 09/03/22 13:58 Barium Sulfate Oral (Vanilla) 450 Ml Oral.Susp PO 09/03/22 13:59 450 ml ONCE ONE Administration Sodium Chloride 1,000 mls @ 999 mls/hr 09/03/22 11:30 09/03/22 13:13 Ns IV 09/03/22 12:30 999 mls/hr .Q1H1M OSBALDO Administration Iohexol 100 ml 09/03/22 13:47 09/03/22 13:48 Iohexol 350 Mg/Ml 100 Ml Infus..Btl IV 09/03/22 13:48 85 ml ONCE ONE Administration Morphine Sulfate 4 mg 09/03/22 13:56 09/03/22 14:11 Morphine Sulfate 4 Mg/Ml Cartridge IVPUSH 09/03/22 13:57 4 mg ONCE ONE Administration Protocol <Raymundo Stanley DO - Last Filed: 09/03/22 15:41> Discharge Plan Discharge Clinical Impression: Abdominal pain <NOEL Lennon - Last Filed: 09/03/22 11:31> Patient Disposition: Home, Self-Care <NOEL Lennon - Last Filed: 09/03/22 11:31> Instructions: Abdominal Pain (ED) <NOEL Lennon - Last Filed: 09/03/22 11:31> Additional Instructions: Please call to follow up with your doctor. <NOEL Lennon - Last Filed: 09/03/22 11:31> Prescriptions: New dicyclomine 10 mg/5 mL solution 10 mg PO BID Qty: 473 0RF No Action vitamin B complex [B Complex-Vitamin B12] Tablet 1 tab PO DAILY Qty: 30 6RF Rx Instructions: 1,000mcg dose daily (DME) blood pressure monitor [Blood Pressure Kit] Kit See Rx Instructions .Route Qty: 1 0RF Rx Instructions: As directed atorvastatin 20 mg tablet 20 mg PO DAILY Qty: 90 3RF (DME) CANE See Rx Instructions .Route .MEDSUPPLY Qty: 1 0RF Rx Instructions: As directed (DME) WRIST BRACE See Rx Instructions .Route .MEDSUPPLY Qty: 1 0RF Rx Instructions: As directed (DME) BATH CHAIR See Rx Instructions .Route .MEDSUPPLY Qty: 1 0RF Rx Instructions: As directed (DME) LIFELINE ALERT SYSTEM See Rx Instructions .Route .MEDSUPPLY Qty: 1 0RF Rx Instructions: As directed (DME) ALCOHOL PADS See Rx Instructions .Route .MEDSUPPLY Qty: 100 3RF Rx Instructions: As directed lidocaine [Lidoderm] 5 % adhesive patch,medicated 1 patch topical DAILY 30 Days Qty: 30 3RF Rx Instructions: leave on most painful area for up to 12 hrs diphenhydramine HCl [Benadryl] 25 mg capsule 25 mg PO BEDTIME PRN (Reason: sleep) Qty: 90 2RF polyethylene glycol 3350 [Miralax] 17 gram powder in packet 17 g PO DAILY Qty: 30 5RF (DME) ROLLATOR See Rx Instructions .Route .MEDSUPPLY Qty: 1 0RF Rx Instructions: As directed Ensure High Protein Liquid 1 ea PO TID 30 Days Qty: 5688 0RF (DME) WRIST SPLINT Right and Left hand See Rx Instructions .Route .MEDSUPPLY Qty: 1 0RF Rx Instructions: As directed (DME) SHOWER WAND See Rx Instructions .Route .MEDSUPPLY Qty: 1 0RF Rx Instructions: As directed (DME) SHOWER BAR See Rx Instructions .Route .MEDSUPPLY Qty: 1 0RF Rx Instructions: As directed (DME) ENSURE once a day See Rx Instructions .Route .MEDSUPPLY Qty: 90 0RF Rx Instructions: As directed acetaminophen [Children's Tylenol] 160 mg/5 mL suspension 500 mg PO QID PRN (Reason: pain, temp) 7 Days Qty: 120 0RF (DME) Bedside commode See Rx Instructions .Route .MEDSUPPLY Qty: 1 0RF Rx Instructions: As directed (DME) Bed pads See Rx Instructions .Route .MEDSUPPLY Qty: 100 12RF Rx Instructions: As directed (DME) SANITARY PADS See Rx Instructions .Route .MEDSUPPLY Qty: 100 12RF Rx Instructions: As directed dicyclomine 20 mg tablet 20 mg PO BID Qty: 60 2RF tramadol 50 mg tablet 50 mg PO Q6H PRN (Reason: pain) 30 Days Qty: 60 1RF ferrous sulfate 15 mg iron (75 mg)/mL syringe 15 mg PO DAILY Qty: 120 0RF ascorbate calcium (vitamin C) 814 mg/gram powder 407 mg PO DAILY Qty: 60 0RF cyclobenzaprine 5 mg tablet 5 mg PO BEDTIME PRN (Reason: muscle spasm) 15 Days Qty: 45 0RF lidocaine HCl [Lidocaine Viscous] 2 % solution 1 appl mucous membrane TID PRN (Reason: pain) Qty: 100 0RF alum-mag hydroxide-simeth [Maalox Advanced] 200-200-20 mg/5 mL suspension 5 ml PO 5XD PRN (Reason: dyspepsia) Qty: 355 0RF Rx Instructions: administer between meals and at bedtime venlafaxine 150 mg capsule,extended release 24hr 1 cap PO DAILY quetiapine 50 mg tablet 1 tab PO BID codeine-guaifenesin 10-100 mg/5 mL liquid 10 ml PO Q6H PRN (Reason: cough) Qty: 237 0RF terconazole 0.8 % cream 1 appful vaginal BEDTIME 3 Days Qty: 20 0RF oxycodone 5 mg tablet 5 mg PO Q6H PRN (Reason: pain) Qty: 14 0RF Rx Instructions: Partial Fill upon patient request. sucralfate [Carafate] 100 mg/mL suspension 10 ml PO BID Qty: 420 0RF ondansetron 4 mg tablet,disintegrating 4 mg PO Q8H PRN (Reason: nausea and vomiting) Qty: 10 0RF sucralfate 1 gram tablet 1 g PO TID Qty: 90 0RF Magic Mouthwash Diphen/Lido/Antacid 1:1:1 240 mL suspension 5 ml PO .Q.a.c. Qty: 240 1RF Rx Instructions: Lidocaine Viscous 2 % 80mL; diphenhydramine 12.5 mg/5 mL 80mL; aluminum-mag hydrox-simeth [id number]/5mL 80mL. 5-10 mL gargle and swallow up to 4 times a day lorazepam 1 mg tablet 1 mg PO TID PRN (Reason: anxiety) Qty: 10 0RF lorazepam [Ativan] 1 mg tablet 1 mg PO BID PRN (Reason: anxiety) Qty: 14 0RF famotidine 40 mg tablet 1 tab PO BEDTIME hydroxyzine pamoate 50 mg capsule 1 cap PO BID PRN (Reason: Anxiety) acetaminophen 500 mg tablet 2 tab PO Q8H ondansetron 4 mg tablet,disintegrating 1 tab PO Q8H PRN (Reason: nausea) cholecalciferol (vitamin D3) [Vitamin D3] 50 mcg (2,000 unit) tablet 1 tab PO DAILY Linzess 290 mcg capsule 1 cap PO DAILY pantoprazole 40 mg tablet,delayed release (DR/EC) 40 mg PO DAILY@0630 zolpidem 10 mg tablet 10 mg PO BEDTIME PRN (Reason: Sleep) lactulose 10 gram/15 mL solution 10 g PO DAILY ziprasidone HCl 20 mg capsule 20 mg PO BID quetiapine 400 mg tablet 400 mg PO BEDTIME ursodiol 300 mg capsule 300 mg PO BID clonazepam 1 mg tablet 1 mg PO TID bisacodyl [Dulcolax (bisacodyl)] 10 mg suppository 10 mg [place] DAILY PRN (Reason: constipation) Qty: 12 0RF simethicone 40 mg/0.6 mL drops,suspension 0.6 ml PO BID-TID PRN (Reason: abdominal distention) Qty: 15 0RF fluticasone propionate [Flonase Allergy Relief] 50 mcg/actuation spray,suspension 1 spray intranasal DAILY Qty: 100 0RF Rx Instructions: administer into each nostril GlucaGen HypoKit 1 mg recon soln 1 mg IVPUSH ONCE PRN (Reason: hypoglycemia below 55) Qty: 1 0RF acarbose 25 mg tablet 25 mg PO TID Qty: 90 3RF (DME) blood-glucose meter [OneTouch Verio Meter] Misc See Rx Instructions .ROUTE Rx Instructions: As directed (DME) OneTouch Verio test strips Strip See Rx Instructions .ROUTE Rx Instructions: As directed 3 times a day (DME) lancets [OneTouch Delica Lancets] 33 gauge misc See Rx Instructions .ROUTE Rx Instructions: As directed 3 times a day tolterodine 4 mg capsule,extended release 24hr 4 mg PO DAILY <NOEL Lennon - Last Filed: 09/03/22 11:31>
--- NOTE | 2022-09-03 11:29 | ECG_ITS ---
Test Reason : DIZZINESS Blood Pressure : / mmHG Vent. Rate : 079 BPM Atrial Rate : 079 BPM P-R Int : 142 ms QRS Dur : 086 ms QT Int : 350 ms P-R-T Axes : 083 087 051 degrees QTc Int : 401 ms Normal sinus rhythm Possible Left atrial enlargement Borderline ECG When compared with ECG of 14-MAR-2022 20:15, No significant change was found Referred By: Maria Eugenia Heller Electronically Signed By:DINA ESQUIVEL MD
[2022-09-03 11:59] LABS: MANUAL DIFF FLAG NO
[2022-09-03 12:00] LABS: Basophils Percent Auto 0.5 % (0-2); Eosinophils Percent Auto 0.8 % (0-4); Hemoglobin 11.3 g/dl (12.0-16.0); Imm Gran Abs Auto 0.02 X10*3/uL (0.00-0.03); Imm Gran Pct Auto 0.5 % (0.0-0.4); Lymphocytes Absolute Auto 0.8 X10*3/uL (1.2-4.9); Lymphocytes Percent Auto 21.6 % (20-40); Mean Corpuscular HGB Conc 31.4 g/dl (31.0-35.0); Mean Corpuscular Hemoglobin 23.5 pg (27.0-33.0); Mean Corpuscular Volume 74.8 fL (80.0-98.0); Mean Platelet Volume 9.6 fL (9.4-12.3); Monocytes Absolute Auto 0.3 X10*3/uL (0.1-1.2); Monocytes Percent Auto 8.2 % (2-11); Neutrophils Absolute Auto 2.7 x10*3/uL (2.0-8.3); Neutrophils Percent Auto 68.4 % (45-73); Platelet Count 425 X10*3/uL (160-400); Red Blood Count 4.81 X10*6/uL (4.20-5.50); Red Cell Distribution Width 21.3 % (11.0-16.0); White Blood Count 3.9 X10*3/uL (4.8-10.8)
[2022-09-03 12:05] LABS: Appearance Urine Cloudy; Color Urine Dark Yellow; Glucose Urine UA Negative (Negative); Leukocyte Esterase Urine Small (1+) (Negative); Nitrite Urine Negative (Negative); Specific Gravity - Urine >= 1.030 (1.005-1.025); UMIC TRIGGER UACC YES; Urine Blood Negative (Negative); Urine Ketones Trace mg/dL (Negative); Urine Protein 100 (2+) mg/dL (Neg-Trace)
[2022-09-03 12:17] LABS: COVID-19 Test Negative (Negative); IDNOW Serial# 16C4AD1C; IDNOW Serial# BCCEAD1C; Influenza A Negative (Negative); Influenza B2 Negative (Negative)
[2022-09-03 12:20] LABS: Alanine Aminotransferase 9 U/L (0-31); Albumin Level 4.3 g/dL (3.5-5.0); Alkaline Phosphatase 54 U/L (39-117); Anion Gap 15 (12-20); Aspartate Amino Transferase 15 U/L (5-31); Bilirubin Direct 0.3 mg/dL (0.0-0.5); Bilirubin Total 1.2 mg/dL (0.0-1.0); Blood Urea Nitrogen 13 mg/dL (9-16); Calcium 9.3 mg/dL (8.4-10.2); Carbon Dioxide 24 mmol/L (22-29); Chloride 103 mmol/L (96-108); Creatinine Clr Calc Pharmacy 73.8; Estimated Glomerular Filt Rate > 60; Glucose Random 91 mg/dL (60-115); Lipase 11 U/L (8-78); Magnesium 1.8 mg/dL (1.6-2.6); Potassium 3.6 mmol/L (3.3-5.1); Sodium 138 mmol/L (135-145); Total Protein 6.6 g/dL (6.5-8.0)
[2022-09-03 12:24] LABS: Bacteria Urine None Seen (None Seen); Calcium Oxalate Crystals Urine Present; RBC Urine 0-2 /HPF (0-2); Squamous Epithelial Cell Urine >20 /HPF (0-2); UACC Culture Trigger YES; WBC Urine 0-5 /HPF (0-5)
[2022-09-03 12:32] LABS: Troponin-I High Sensitivity < 3.5 ng/L (<3.5-17.0)
[2022-09-03] MEDS: 0.9 % Sodium Chloride 1,000 ML 999 ML IV (13:13)
[2022-09-03] MEDS: iohexoL 350 MG/ML 100 ML INFUS..BTL IV (13:48)
[2022-09-03] MEDS: Barium Sulfate Oral (Vanilla) 450 ML ORAL.SUSP PO (13:58)
[2022-09-03] MEDS: Morphine Sulfate 4 MG/ML CARTRIDGE IVPUSH (14:11)
[2022-09-03 14:23] VITALS: BP 107/69; PULSE 73; RESP 16; TEMP 36.8; O2SAT 99
== END 2022-09-03 16:14 | disposition home or self-care (01) ==
PROVIDERS: Physician Assistant; Emergency Provider Student in an Organized Health Care Education/Training Program; PCP Internal Medicine
DX: R10.13 Epigastric pain (principal); R11.2 Nausea with vomiting, unspecified; R19.7 Diarrhea, unspecified; Z98.84 Bariatric surgery status; Z20.822 Contact with and (suspected) exposure to COVID-19; Z20.828 Contact with and (suspected) exposure to other viral communicable diseases; Z79.899 Other long term (current) drug therapy
CPT/HCPCS: 36415; 74177; 80048; 80076; 81001; 83690; 83735; 84484; 85025; 87086; 87502; 87635; 93005; 99284; J2270; Q9967

== ENCOUNTER → 2022-09-15 11:06 | Outpatient (REF) | payer OTHER, SELFPAY ==
--- NOTE | 2022-09-15 11:09 | HM_ITS ---
Conclusion: 1. Patient was monitored for total period of 2 days and 3 hours 2. Baseline rhythm is normal sinus rhythm with average heart rate of 91 beats per minute 3. No significant pauses or bradycardia noted 4. Very rare PACs noted 5. No patient reported events MTDD
== END ==
LOC: HO.CARD 11:06
PROVIDERS: Visit Provider Psychiatry & Neurology Neurology
DX: R55 Syncope and collapse (principal)
CPT/HCPCS: 93225

== ENCOUNTER 2022-09-19 12:01 | Outpatient (REF) | payer OTHER, SELFPAY | END 2022-09-19 12:02 | disposition home or self-care (01) | LOC: HO.XRAY 12:01 | PROVIDERS: Visit Provider Internal Medicine | DX: R13.10 Dysphagia, unspecified (principal) | CPT/HCPCS: 96365 ==

== ENCOUNTER 2022-09-19 16:29 | Outpatient (REF) | payer OTHER, SELFPAY ==
[2022-09-20 07:32] LABS: Glucose, Whole Blood 65 mg/dL (60-115)
== END 2022-09-19 16:30 | disposition home or self-care (01) ==
LOC: HO.MDS 16:29
PROVIDERS: Visit Provider Internal Medicine
DX: D50.9 Iron deficiency anemia, unspecified (principal)
CPT/HCPCS: 82947; J1756

== ENCOUNTER 2022-09-24 11:49 | Emergency (ER) | payer OTHER, SELFPAY ==
[2022-09-24 11:56] VITALS: BP 128/70; PULSE 77; RESP 18; TEMP 36.8; O2SAT 100; BMI 19.2
[2022-09-24 12:24] LABS: MANUAL DIFF FLAG NO
[2022-09-24 12:27] LABS: Basophils Percent Auto 0.6 % (0-2); Eosinophils Absolute Auto 0.1 X10*3/uL (0.0-0.4); Eosinophils Percent Auto 2.1 % (0-4); Hematocrit 34.4 % (37.0-47.0); Hemoglobin 10.7 g/dl (12.0-16.0); Imm Gran Abs Auto 0.01 X10*3/uL (0.00-0.03); Imm Gran Pct Auto 0.3 % (0.0-0.4); Lymphocytes Absolute Auto 1.1 X10*3/uL (1.2-4.9); Mean Corpuscular HGB Conc 31.1 g/dl (31.0-35.0); Mean Corpuscular Volume 77.3 fL (80.0-98.0); Monocytes Absolute Auto 0.5 X10*3/uL (0.1-1.2); Neutrophils Absolute Auto 1.6 x10*3/uL (2.0-8.3); Platelet Count 369 X10*3/uL (160-400); Red Blood Count 4.45 X10*6/uL (4.20-5.50); Red Cell Distribution Width 22.5 % (11.0-16.0); White Blood Count 3.4 X10*3/uL (4.8-10.8)
[2022-09-24 12:47] LABS: Alanine Aminotransferase 12 U/L (0-31); Albumin Level 4.1 g/dL (3.5-5.0); Alkaline Phosphatase 64 U/L (39-117); Anion Gap 15 (12-20); Aspartate Amino Transferase 15 U/L (5-31); Bilirubin Total 0.3 mg/dL (0.0-1.0); Blood Urea Nitrogen 11 mg/dL (9-16); Carbon Dioxide 25 mmol/L (22-29); Chloride 105 mmol/L (96-108); Creatinine Clr Calc Pharmacy 80.7; Estimated Glomerular Filt Rate > 60; Glucose Random 99 mg/dL (60-115); Potassium 3.9 mmol/L (3.3-5.1); Sodium 141 mmol/L (135-145); Total Protein 6.7 g/dL (6.5-8.0)
[2022-09-24 13:20] LABS: Influenza A PCR NEGATIVE (Negative); Influenza B PCR NEGATIVE (Negative); Resp Syncy Virus RNA Qual PCR NEGATIVE (Negative); SARS COV2 PCR INHOUSE NEGATIVE (Negative)
--- NOTE | 2022-09-24 14:18 | ED_ITS ---
HPI - URI/Sore Throat General Chief Complaint: Upper Respiratory Symptoms Stated Complaint: Covid symptoms Time Seen by Provider: 09/24/22 13:22 Source: patient Mode of arrival: ambulatory Limitations: no limitations History of Present Illness HPI Narrative: Patient is a 41-year-old female who presents emergency department multiple symptoms. Reports onset of symptoms to be 3 days ago, experiencing cough, headache, loss of taste and smell, nausea, vomiting, epigastric pain, urinary frequency, loss of taste and smell. She does report a history of ongoing nausea, vomiting, epigastric pain associated to esophagitis for which she is being followed by her GI provider, has been advised to take Prilosec daily which she has been taking. Denies any known sick contacts. Denies any fevers or chills. Denies headache, dizziness, neck pain or neck stiffness, sore throat, diarrhea, constipation, hematuria, pain, vaginal discharge. Related Data Home Medications Medication Instructions Recorded Confirmed lactulose 10 gram/15 mL oral 10 g PO DAILY 08/27/20 07/27/22 solution zolpidem 10 mg tablet 10 mg PO BEDTIME PRN Sleep 08/27/20 07/27/22 quetiapine 50 mg tablet 1 tab PO BID 09/22/21 07/27/22 venlafaxine 150 mg 1 cap PO DAILY 09/22/21 07/27/22 capsule,extended release 24 hr clonazepam 1 mg tablet 1 mg PO TID 10/26/21 07/27/22 quetiapine 400 mg tablet 400 mg PO BEDTIME 10/26/21 07/27/22 ursodiol 300 mg capsule 300 mg PO BID 10/26/21 07/27/22 ziprasidone HCl 20 mg capsule 20 mg PO BID 10/26/21 07/27/22 acetaminophen 500 mg tablet 2 tab PO Q8H 02/11/22 07/27/22 cholecalciferol (vitamin D3) 50 1 tab PO DAILY 02/11/22 07/27/22 mcg (2,000 unit) tablet (Vitamin D3) famotidine 40 mg tablet 1 tab PO BEDTIME 02/11/22 07/27/22 hydroxyzine pamoate 50 mg capsule 1 cap PO BID PRN Anxiety 02/11/22 07/27/22 linaclotide 290 mcg capsule 1 cap PO DAILY 02/11/22 07/27/22 (Linzess) ondansetron 4 mg disintegrating 1 tab PO Q8H PRN nausea 02/11/22 07/27/22 tablet pantoprazole 40 mg tablet,delayed 40 mg PO DAILY@0630 02/11/22 07/27/22 release blood sugar diagnostic ([facility] 08/15/22 Verio test strips) [facility]) [facility]anc[facility] Lancets) tolterodine 4 mg capsule,extended 4 mg PO DAILY 08/15/22 release 24 hr Previous Rx's Medication Instructions Recorded vitamin B complex (B 1 tab PO DAILY #30 tabs 07/13/21 Complex-Vitamin B12 tablet) blood pressure monitor (Blood #1 ea 10/31/21 Pressure Kit) atorvastatin 20 mg tablet 20 mg PO DAILY #90 tabs 01/27/22 BATH CHAIR #1 ea 01/31/22 CANE #1 ea 01/31/22 LIFELINE ALERT SYSTEM #1 ea 01/31/22 WRIST BRACE #1 ea 01/31/22 ALCOHOL PADS #100 ea 02/21/22 glucagon 1 mg solution for 1 mg IVPUSH ONCE PRN hypoglycemia 03/09/22 injection (GlucaGen HypoKit) below 55 #1 ea lidocaine 5 % topical patch 1 patch topical DAILY 30 days #30 03/09/22 (Lidoderm) ea diphenhydramine HCl 25 mg capsule 25 mg PO BEDTIME PRN sleep #90 caps 03/10/22 (Benadryl) codeine 10 mg-guaifenesin 100 mg/5 10 ml PO Q6H PRN cough #237 mL 04/02/22 mL oral liquid acarbose 25 mg tablet 25 mg PO TID #90 tabs 04/13/22 oxycodone 5 mg tablet 5 mg PO Q6H PRN pain #14 tabs 04/25/22 terconazole 0.8 % vaginal cream 1 appful vaginal BEDTIME 04/25/22 Candidiasis vaginitis 3 days #20 grams sucralfate 100 mg/mL oral 10 ml PO BID #420 mL 05/17/22 suspension (Carafate) polyethylene glycol 3350 17 gram 17 g PO DAILY #30 ea 05/22/22 oral powder packet (Miralax) ROLLATOR #1 ea 05/23/22 food supplemt, lactose-reduced 1 ea PO TID 30 days #5,688 mL 05/23/22 (Ensure High Protein oral liquid) WRIST SPLINT Right and Left hand #1 ea 05/30/22 ENSURE once a day #90 ea 06/08/22 SHOWER BAR #1 ea 06/08/22 SHOWER WAND #1 ea 06/08/22 ondansetron 4 mg disintegrating 4 mg PO Q8H PRN nausea and 06/10/22 tablet vomiting #10 tabs acetaminophen 160 mg/5 mL oral 500 mg (15.625 mL) PO QID PRN 06/26/22 suspension (Children's Tylenol) pain, temp 7 days #120 mL sucralfate 1 gram tablet 1 g PO TID #90 tabs 07/06/22 Bed pads #100 ea 07/17/22 Bedside commode #1 ea 07/17/22 SANITARY PADS #100 ea 07/17/22 dicyclomine 20 mg tablet 20 mg PO BID #60 tabs 07/21/22 ascorbate calcium (vitamin C) 814 407 mg PO DAILY #60 grams 07/25/22 mg/gram oral powder ferrous sulfate 15 mg iron (75 15 mg PO DAILY #120 mL 07/25/22 mg)/mL oral syringe (ORAL USE) bisacodyl 10 mg rectal suppository 10 mg AL DAILY PRN constipation 07/27/22 (Dulcolax (bisacodyl)) #12 ea fluticasone propionate 50 1 spray intranasal DAILY #100 mL 07/27/22 mcg/actuation nasal spray,suspension (Flonase Allergy Relief) Magic Mouthwash 5 ml PO .Q.a.c. #240 mL 07/29/22 Diphen/Lido/Antacid 1:1:1 240 mL suspension lorazepam 1 mg tablet 1 mg PO TID PRN anxiety #10 tabs 07/29/22 cyclobenzaprine 5 mg tablet 5 mg PO BEDTIME PRN muscle spasm 08/03/22 15 days #45 tabs lorazepam 1 mg tablet (Ativan) 1 mg PO BID PRN anxiety #14 tabs 08/20/22 aluminum-mag hydroxide-simethicone 5 ml PO 5XD PRN dyspepsia #355 mL 08/21/22 200 mg-200 mg-20 mg/5 mL oral susp (Maalox Advanced) dicyclomine 10 mg/5 mL oral 10 mg (5 mL) PO BID Abdominal pain 09/03/22 solution #473 mL lidocaine HCl 2 % mucosal solution 1 appl mucous membrane TID PRN 09/20/22 (Lidocaine Viscous) pain #100 mL simethicone 40 mg/0.6 mL oral 0.6 ml PO BID-TID PRN abdominal 09/20/22 drops,suspension distention #15 mL tramadol 50 mg tablet 50 mg PO Q6H PRN pain 30 days #60 09/20/22 tabs acetaminophen 160 mg/5 mL oral 960 mg (30 mL) PO Q6H PRN fever or 09/24/22 suspension (Children's Tylenol) pain #360 mL cephalexin 250 mg/5 mL oral 500 mg (10 mL) PO BID 7 days #140 09/24/22 suspension mL ondansetron 4 mg disintegrating 4 mg PO Q8H PRN nausea and 09/24/22 tablet vomiting #10 tabs Allergies Allergy/AdvReac Type Severity Reaction Status Date / Time tomato [TOMATO] Allergy Mild HIVES Verified 09/03/22 11:13 DIFFICULTY BREATHING hydrocodone [HYDROCODONE] Allergy Unknown RASH, Verified 09/03/22 11:13 AIRWAY CLOSES ibuprofen [From MOTRIN] Allergy Unknown STOMACH Verified 09/03/22 11:13 UPSET, vomiting trazodone [TRAZODONE] Allergy Unknown UNKNOWN, Verified 09/03/22 11:13 stomach upset black pepper [BLACK PEPPER] AdvReac Severe DIFFICULTY Verified 09/03/22 11:13 BREATHING, hives lisinopril AdvReac Severe Anaphylaxis Verified 09/03/22 11:13 Review of Systems Review of Systems: Yes all other systems are reviewed and are negative [facility] Past Medical History Attestation statement: The following information was validated with the patient. 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 Diverticulosis GERD (gastroesophageal reflux disease) History of bipolar disorder History of schizophrenia Hypercholesterolemia Hypertension Insomnia Numbness of left hand Renal calculi Spondylosis of lumbar spine Type 2 diabetes mellitus with hyperglycemia Vitamin D deficiency Surgical History H/O: hysterectomy History of tubal ligation Hx of bariatric surgery Family History Family History Father Medical history unknown Mother Medical history unknown Paternal Aunt Uterine cancer Diabetes Hypertension Paternal Uncle Liver cancer Heart attack Maternal Aunt Stroke Family/Other Chronic mental illness Sister Uterine cancer Schizophrenia Brother Substance abuse Other Mental health disorder Social History Social History Household Members: None Housing: Apartment Do you presently have visiting nurse or other home services: Yes Alcohol intake: never Patient Tobacco Use Status: Never used Tobacco e-Cigarette/Vaping Use: Never Used Second Hand Smoke Exposure: No Advance Directives: No Advance Directives Information Provided: Yes service: No Current occupational status: disabled Current occupational exposures/hazards: No Cognitive needs: No Hearing needs: No Vision needs: No Physical Exam Vital Signs: Vital Signs: Last Vital Signs Temp 97.3 F 09/24/22 16:00 Pulse 70 09/24/22 16:00 Resp 16 09/24/22 16:00 BP 94/56 L 09/24/22 16:00 Pulse Ox 97 09/24/22 16:00 O2 Del Method 09/24/22 16:00 BMI result Body Mass Index 19.2 Appearance: Alert.?Oriented to person, place and time. No acute distress.?Normal affect. Eyes: Pupils equal, round and reactive to light.? EOMI. No nystagmus. ENT: TM normal bilaterally. Pharynx normal.?? Neck: Normal inspection.? Neck supple.??No cervical adenopathy. No nuchal rigidity CVS: Heart sounds normal. Normal heart rate and rhythm.? Pulses normal.?? Respiratory: No respiratory distress.? Lung sounds clear to auscultation bilaterally?? Abdomen: Soft with epigastric tenderness. Normoactive bowel sounds. Skin: Skin warm and dry.? Normal skin color.? ? Extremities: No lower extremity edema.? Neuro: Moves all extremities spontaneously. Sensation intact bilaterally. No motor deficits. Ambulates with normal steady gait. Course Reevaluation(s) Reevaluation #1: CBC reveals mild pancytopenia which is consistent with prior labs. CMP is unremarkable. Lipase is within normal limits. COVID-19/influenza/RSV testing is negative. Urinalysis with presence of urine bacteria, and rbc's, however there is additionally squamous epithelial cells present, this may possibly be consistent with urogenital contamination, however considering she is symptomatic with urinary frequency at this time will treat his urinary tract infection, and specimen sent for culture. patient self checked her glucose level, confirmed here is on point of care to be low at 48, patient provided with oral intake to increased sugar, she is alert, oriented, conscious, tolerating oral intake at this time. Time: 15:56 Reevaluation #2: Point of care glucose on repeat was 173. Patient is tolerating oral intake. Discussed with patient plan of care, will send for so range use as needed for nausea, prescription for cefuroxime for urinary tract infection, recommended repeat COVID-19 testing in a couple of days should her per symptoms persist. Advised outpatient follow-up with her primary care provider. Discussed worrisome signs and symptoms of warmth the department. All questions answered. Stable for discharge Time: 17:01 Medications Administered Discontinued Medications Generic Name Dose Route Start Last Admin Trade Name Freq PRN Reason Stop Dose Admin Acetaminophen 975 mg 09/24/22 15:21 09/24/22 15:38 Acetaminophen Oral Liquid 650 Mg/20.3 Ml Solution PO 09/24/22 15:22 975 mg ONCE ONE Administration Sodium Chloride 1,000 mls @ 999 mls/hr 09/24/22 14:45 09/24/22 15:49 Ns IV 09/24/22 15:45 999 mls/hr .Q1H1M OSBALDO Administration Ondansetron HCl 4 mg 09/24/22 14:44 09/24/22 15:41 Ondansetron Hcl 4 Mg/2 Ml Vial IVPUSH 09/24/22 14:45 4 mg ONCE ONE Administration Medical Decision Making Medical Decision Making MDM Narrative: Patient is a 41-year-old female with past medical history of anxiety and depression, carpal tunnel syndrome, diverticulosis, gastric sleeve, GERD, bipola r disorder, schizophrenia, hypercholesterolemia, hypertension, insomnia, spondylolisthesis of the lumbar spine, type 2 diabetes who presents emergency department for evaluation of viral symptoms. At the time of my examination she is overall well appearing, nontoxic. She is afebrile without tachycardia, tachypnea, or hypoxia. Physical examination is not consistent with pneumonia, no meningismus therefore unlikely meningitis. She is in no respiratory distress. She is speaking clear full sentences, is ambulatory with steady gait. She does have mild epigastric tenderness upon examination but otherwise her abdominal examination is benign, there is no rigidity, no guarding, no peritoneal signs, low suspicion for acute abdomen. Will obtain CBC, CMP and lipase to exclude leukocytosis, anemia, electrolyte abnormality, abnormal hepatic/biliary function. Symptoms likely consistent esophagitis, less likely acute cholecystitis with pancreatitis. Will obtain urinalysis and urine . Will obtain viral testing. Patient received 1 L normal saline IV fluid, Zofran IV, in acetaminophen p.o. Differential Diagnosis Differential Diagnoses: The differential diagnosis associated with the presentation includes (As noted above) Lab Data MDM Lab Attestation statement: I reviewed the patient's lab results. 09/24/22 12:18 09/24/22 12:18 Labs: Lab Results 09/24/22 09/24/22 09/24/22 Range/Units 12:18 12:18 12:18 WBC 3.4 L (4.8-10.8) X10*3/uL RBC 4.45 (4.20-5.50) X10*6/uL Hgb 10.7 L (12.0-16.0) g/dl Hct 34.4 L (37.0-47.0) % MCV 77.3 L (80.0-98.0) fL MCH 24.0 L (27.0-33.0) pg MCHC 31.1 (31.0-35.0) g/dl RDW 22.5 H (11.0-16.0) % Plt Count 369 (160-400) X10*3/uL MPV 9.0 L (9.4-12.3) fL Immature Gran % (Auto) 0.3 (0.0-0.4) % Neut % (Auto) 49.0 (45-73) % Lymph % (Auto) 34.0 (20-40) % Lynn % (Auto) 14.0 H (2-11) % Eos % (Auto) 2.1 (0-4) % Baso % (Auto) 0.6 (0-2) % Lymph # (Auto) 1.1 L (1.2-4.9) X10*3/uL Lynn # (Auto) 0.5 (0.1-1.2) X10*3/uL Eos # (Auto) 0.1 (0.0-0.4) X10*3/uL Baso # (Auto) 0.0 (0.0-0.2) X10*3/uL Abs Immat Gran (auto) 0.01 (0.00-0.03) X10*3/uL Absolute Neuts (auto) 1.6 L (2.0-8.3) x10*3/uL Absolute Nucleated RBC 0.000 (0.0-0.012) X10*3/uL Nucleated RBC % (auto) 0.0 (0.0-0.2) /100WBC Sodium 141 (135-145) mmol/L Potassium 3.9 (3.3-5.1) mmol/L Chloride 105 (96-108) mmol/L Carbon Dioxide 25 (22-29) mmol/L Anion Gap 15 (12-20) BUN 11 (9-16) mg/dL Creatinine 0.69 (0.5-1.4) mg/dL Estim Creat Clear Calc 80.7 Estimated GFR > 60 POC Glucose (60-115) mg/dL Random Glucose 99 (60-115) mg/dL Calcium 9.0 (8.4-10.2) mg/dL Total Bilirubin 0.3 (0.0-1.0) mg/dL AST 15 (5-31) U/L ALT 12 (0-31) U/L Alkaline Phosphatase 64 (39-117) U/L Total Protein 6.7 (6.5-8.0) g/dL Albumin 4.1 (3.5-5.0) g/dL Lipase 16 (8-78) U/L Urine Color Urine Appearance Urine pH (5.0-9.0) Ur Specific [place] (1.005-1.025) Urine Protein (Neg-Trace) mg/dL Urine Glucose (UA) (Negative) mg/dL Urine Ketones (Negative) mg/dL Urine Blood (Negative) Urine Nitrite (Negative) Ur Leukocyte Esterase (Negative) Urine RBC (0-2) /HPF Urine WBC (0-5) /HPF Ur Squamous Epith Cells (0-2) /HPF Urine Bacteria (None Seen) Hyaline Casts (0-2) /LPF Urine Test (NEGATIVE) Influenza Type A (PCR) NEGATIVE (Negative) Influenza Type B (PCR) NEGATIVE (Negative) RSV RNA Qual (PCR) NEGATIVE (Negative) SARS-CoV-2 RNA (RT-PCR) NEGATIVE (Negative) 09/24/22 09/24/22 09/24/22 Range/Units 15:08 15:08 15:35 WBC (4.8-10.8) X10*3/uL RBC (4.20-5.50) X10*6/uL Hgb (12.0-16.0) g/dl Hct (37.0-47.0) % MCV (80.0-98.0) fL MCH (27.0-33.0) pg MCHC (31.0-35.0) g/dl RDW (11.0-16.0) % Plt Count (160-400) X10*3/uL MPV (9.4-12.3) fL Immature Gran % (Auto) (0.0-0.4) % Neut % (Auto) (45-73) % Lymph % (Auto) (20-40) % Lynn % (Auto) (2-11) % Eos % (Auto) (0-4) % Baso % (Auto) (0-2) % Lymph # (Auto) (1.2-4.9) X10*3/uL Lynn # (Auto) (0.1-1.2) X10*3/uL Eos # (Auto) (0.0-0.4) X10*3/uL Baso # (Auto) (0.0-0.2) X10*3/uL Abs Immat Gran (auto) (0.00-0.03) X10*3/uL Absolute Neuts (auto) (2.0-8.3) x10*3/uL Absolute Nucleated RBC (0.0-0.012) X10*3/uL Nucleated RBC % (auto) (0.0-0.2) /100WBC Sodium (135-145) mmol/L Potassium (3.3-5.1) mmol/L Chloride (96-108) mmol/L Carbon Dioxide (22-29) mmol/L Anion Gap (12-20) BUN (9-16) mg/dL Creatinine (0.5-1.4) mg/dL Estim Creat Clear Calc Estimated GFR POC Glucose 48 L* (60-115) mg/dL Random Glucose (60-115) mg/dL Calcium (8.4-10.2) mg/dL Total Bilirubin (0.0-1.0) mg/dL AST (5-31) U/L ALT (0-31) U/L Alkaline Phosphatase (39-117) U/L Total Protein (6.5-8.0) g/dL Albumin (3.5-5.0) g/dL Lipase (8-78) U/L Urine Color Dark Yellow Urine Appearance Cloudy Urine pH 6.5 (5.0-9.0) Ur Specific [place] 1.025 (1.005-1.025) Urine Protein 30 (1+) H (Neg-Trace) mg/dL Urine Glucose (UA) Negative (Negative) mg/dL Urine Ketones Trace (Negative) mg/dL Urine Blood Negative (Negative) Urine Nitrite Negative (Negative) Ur Leukocyte Esterase Negative (Negative) Urine RBC 6-10 H (0-2) /HPF Urine WBC 0-5 (0-5) /HPF Ur Squamous Epith Cells 11-20 (0-2) /HPF Urine Bacteria 2+ (None Seen) Hyaline Casts 3-5 (0-2) /LPF Urine Test NEGATIVE (NEGATIVE) Influenza Type A (PCR) (Negative) Influenza Type B (PCR) (Negative) RSV RNA Qual (PCR) (Negative) SARS-CoV-2 RNA (RT-PCR) (Negative) 09/24/22 Range/Units 16:37 WBC (4.8-10.8) X10*3/uL RBC (4.20-5.50) X10*6/uL Hgb (12.0-16.0) g/dl Hct (37.0-47.0) % MCV (80.0-98.0) fL MCH (27.0-33.0) pg MCHC (31.0-35.0) g/dl RDW (11.0-16.0) % Plt Count (160-400) X10*3/uL MPV (9.4-12.3) fL Immature Gran % (Auto) (0.0-0.4) % Neut % (Auto) (45-73) % Lymph % (Auto) (20-40) % Lynn % (Auto) (2-11) % Eos % (Auto) (0-4) % Baso % (Auto) (0-2) % Lymph # (Auto) (1.2-4.9) X10*3/uL Lynn # (Auto) (0.1-1.2) X10*3/uL Eos # (Auto) (0.0-0.4) X10*3/uL Baso # (Auto) (0.0-0.2) X10*3/uL Abs Immat Gran (auto) (0.00-0.03) X10*3/uL Absolute Neuts (auto) (2.0-8.3) x10*3/uL Absolute Nucleated RBC (0.0-0.012) X10*3/uL Nucleated RBC % (auto) (0.0-0.2) /100WBC Sodium (135-145) mmol/L Potassium (3.3-5.1) mmol/L Chloride (96-108) mmol/L Carbon Dioxide (22-29) mmol/L Anion Gap (12-20) BUN (9-16) mg/dL Creatinine (0.5-1.4) mg/dL Estim Creat Clear Calc Estimated GFR POC Glucose 173 H (60-115) mg/dL Random Glucose (60-115) mg/dL Calcium (8.4-10.2) mg/dL Total Bilirubin (0.0-1.0) mg/dL AST (5-31) U/L ALT (0-31) U/L Alkaline Phosphatase (39-117) U/L Total Protein (6.5-8.0) g/dL Albumin (3.5-5.0) g/dL Lipase (8-78) U/L Urine Color Urine Appearance Urine pH (5.0-9.0) Ur Specific [place] (1.005-1.025) Urine Protein (Neg-Trace) mg/dL Urine Glucose (UA) (Negative) mg/dL Urine Ketones (Negative) mg/dL Urine Blood (Negative) Urine Nitrite (Negative) Ur Leukocyte Esterase (Negative) Urine RBC (0-2) /HPF Urine WBC (0-5) /HPF Ur Squamous Epith Cells (0-2) /HPF Urine Bacteria (None Seen) Hyaline Casts (0-2) /LPF Urine Test (NEGATIVE) Influenza Type A (PCR) (Negative) Influenza Type B (PCR) (Negative) RSV RNA Qual (PCR) (Negative) SARS-CoV-2 RNA (RT-PCR) (Negative) External Record Review External record reviewed: Office record Tests considered The following testing was considered but not selected: Chest x-ray was considered, but at this time physical examination not consistent with pneumonia, therefore was deferred. Prescription Management I considered prescription management with: Pain Medication and Antibiotic Discharge Plan Discharge Clinical Impression: Acute viral syndrome, Urinary tract infection Patient Disposition: Home, Self-Care Additional Instructions: Be sure to rest, stay well hydrated drinking plenty of fluids, eat small frequent meals. Tylenol/ibuprofen can be used as needed for fever/pain. [id number] cold medications may be helpful as well for symptoms. I sent a prescription for Zofran to the pharmacy to use as needed for nausea. Additionally, I have sent a prescription for an antibiotic to your pharmacy to treat urinary tract infection, please complete this entire course. You may return to the emergency department with any new or worsening symptoms or concerns. Follow-up with your primary care provider as needed. Prescriptions: New ondansetron 4 mg tablet,disintegrating 4 mg PO Q8H PRN (Reason: nausea and vomiting) Qty: 10 0RF acetaminophen [Children's Tylenol] 160 mg/5 mL suspension 960 mg PO Q6H PRN (Reason: fever or pain) Qty: 360 0RF cephalexin 250 mg/5 mL suspension for reconstitution 500 mg PO BID 7 Days Qty: 140 0RF No Action vitamin B complex [B Complex-Vitamin B12] Tablet 1 tab PO DAILY Qty: 30 6RF Rx Instructions: 1,000mcg dose daily (DME) blood pressure monitor [Blood Pressure Kit] Kit See Rx Instructions .Route Qty: 1 0RF Rx Instructions: As directed atorvastatin 20 mg tablet 20 mg PO DAILY Qty: 90 3RF (DME) CANE See Rx Instructions .Route .MEDSUPPLY Qty: 1 0RF Rx Instructions: As directed (DME) WRIST BRACE See Rx Instructions .Route .MEDSUPPLY Qty: 1 0RF Rx Instructions: As directed (DME) BATH CHAIR See Rx Instructions .Route .MEDSUPPLY Qty: 1 0RF Rx Instructions: As directed ([facility] [place]) LIFELINE ALERT SYSTEM See Rx Instructions .Route .MEDSUPPLY Qty: 1 0RF Rx Instructions: As directed (DME) ALCOHOL PADS See Rx Instructions .Route .MEDSUPPLY Qty: 100 3RF Rx Instructions: As directed lidocaine [Lidoderm] 5 % adhesive patch,medicated 1 patch topical DAILY 30 Days Qty: 30 3RF Rx Instructions: leave on most painful area for up to 12 hrs diphenhydramine HCl [Benadryl] 25 mg capsule 25 mg PO BEDTIME PRN (Reason: sleep) Qty: 90 2RF polyethylene glycol 3350 [Miralax] 17 gram powder in packet 17 g PO DAILY Qty: 30 5RF (DME) ROLLATOR See Rx Instructions .Route .MEDSUPPLY Qty: 1 0RF Rx Instructions: As directed Ensure High Protein Liquid 1 ea PO TID 30 Days Qty: 5688 0RF (DME) WRIST SPLINT Right and Left hand See Rx Instructions .Route .MEDSUPPLY Qty: 1 0RF Rx Instructions: As directed ([facility] [place]) SHOWER WAND See Rx Instructions .Route .MEDSUPPLY Qty: 1 0RF Rx Instructions: As directed ([facility] [place]) SHOWER BAR See Rx Instructions .Route .MEDSUPPLY Qty: 1 0RF Rx Instructions: As directed ([facility] [place]) ENSURE once a day See Rx Instructions .Route .MEDSUPPLY Qty: 90 0RF Rx Instructions: As directed acetaminophen [Children's Tylenol] 160 mg/5 mL suspension 500 mg PO QID PRN (Reason: pain, temp) 7 Days Qty: 120 0RF (DME) Bedside commode See Rx Instructions .Route .MEDSUPPLY Qty: 1 0RF Rx Instructions: As directed ([facility] [place]) Bed pads See Rx Instructions .Route .MEDSUPPLY Qty: 100 12RF Rx Instructions: As directed ([facility] [place]) SANITARY PADS See Rx Instructions .Route .MEDSUPPLY Qty: 100 12RF Rx Instructions: As directed dicyclomine 20 mg tablet 20 mg PO BID Qty: 60 2RF ferrous sulfate 15 mg iron (75 mg)/mL syringe 15 mg PO DAILY Qty: 120 0RF ascorbate calcium (vitamin C) 814 mg/gram powder 407 mg PO DAILY Qty: 60 0RF cyclobenzaprine 5 mg tablet 5 mg PO BEDTIME PRN (Reason: muscle spasm) 15 Days Qty: 45 0RF alum-mag hydroxide-simeth [Maalox Advanced] 200-200-20 mg/5 mL suspension 5 ml PO 5XD PRN (Reason: dyspepsia) Qty: 355 0RF Rx Instructions: administer between meals and at bedtime tramadol 50 mg tablet 50 mg PO Q6H PRN (Reason: pain) 30 Days Qty: 60 1RF simethicone 40 mg/0.6 mL drops,suspension 0.6 ml PO BID-TID PRN (Reason: abdominal distention) Qty: 15 0RF lidocaine HCl [Lidocaine Viscous] 2 % solution 1 appl mucous membrane TID PRN (Reason: pain) Qty: 100 0RF venlafaxine 150 mg capsule,extended release 24hr 1 cap PO DAILY quetiapine 50 mg tablet 1 tab PO BID codeine-guaifenesin 10-100 mg/5 mL liquid 10 ml PO Q6H PRN (Reason: cough) Qty: 237 0RF terconazole 0.8 % cream 1 appful vaginal BEDTIME 3 Days Qty: 20 0RF oxycodone 5 mg tablet 5 mg PO Q6H PRN (Reason: pain) Qty: 14 0RF Rx Instructions: Partial Fill upon patient request. sucralfate [Carafate] 100 mg/mL suspension 10 ml PO BID Qty: 420 0RF ondansetron 4 mg tablet,disintegrating 4 mg PO Q8H PRN (Reason: nausea and vomiting) Qty: 10 0RF sucralfate 1 gram tablet 1 g PO TID Qty: 90 0RF Magic Mouthwash Diphen/Lido/Antacid 1:1:1 240 mL suspension 5 ml PO .Q.a.c. Qty: 240 1RF Rx Instructions: Lidocaine Viscous 2 % 80mL; diphenhydramine 12.5 mg/5 mL 80mL; aluminum-mag hydrox-simeth [id number]/5mL 80mL. 5-10 mL gargle and swallow up to 4 times a day lorazepam 1 mg tablet 1 mg PO TID PRN (Reason: anxiety) Qty: 10 0RF lorazepam [Ativan] 1 mg tablet 1 mg PO BID PRN (Reason: anxiety) Qty: 14 0RF dicyclomine 10 mg/5 mL solution 10 mg PO BID Qty: 473 0RF famotidine 40 mg tablet 1 tab PO BEDTIME hydroxyzine pamoate 50 mg capsule 1 cap PO BID PRN (Reason: Anxiety) acetaminophen 500 mg tablet 2 tab PO Q8H ondansetron 4 mg tablet,disintegrating 1 tab PO Q8H PRN (Reason: nausea) cholecalciferol (vitamin D3) [Vitamin D3] 50 mcg (2,000 unit) tablet 1 tab PO DAILY Linzess 290 mcg capsule 1 cap PO DAILY pantoprazole 40 mg tablet,delayed release (DR/EC) 40 mg PO DAILY@0630 zolpidem 10 mg tablet 10 mg PO BEDTIME PRN (Reason: Sleep) lactulose 10 gram/15 mL solution 10 g PO DAILY ziprasidone HCl 20 mg capsule 20 mg PO BID quetiapine 400 mg tablet 400 mg PO BEDTIME ursodiol 300 mg capsule 300 mg PO BID clonazepam 1 mg tablet 1 mg PO TID bisacodyl [Dulcolax (bisacodyl)] 10 mg suppository 10 mg AL DAILY PRN (Reason: constipation) Qty: 12 0RF fluticasone propionate [Flonase Allergy Relief] 50 mcg/actuation spray,suspension 1 spray intranasal DAILY Qty: 100 0RF Rx Instructions: administer into each nostril GlucaGen HypoKit 1 mg recon soln 1 mg IVPUSH ONCE PRN (Reason: hypoglycemia below 55) Qty: 1 0RF acarbose 25 mg tablet 25 mg PO TID Qty: 90 3RF (DME) blood-glucose meter [OneTouch Verio Meter] [facility] [place] .ROUTE Rx Instructions: As directed (DME) OneTouch Verio test strips Strip See Rx Instructions .ROUTE Rx Instructions: As directed 3 times a day (DME) lancets [OneTouch Delica Lancets] 33 gauge [facility] [place] Rx Instructions .ROUTE Rx Instructions: As directed 3 times a day tolterodine 4 mg capsule,extended release 24hr 4 mg PO DAILY Referrals: Po,Deirdre Raymundo MD [Primary Care Provider] -
[2022-09-24 15:09] LABS: Lipase 16 U/L (8-78)
[2022-09-24 15:18] LABS: Appearance Urine Cloudy; Color Urine Dark Yellow; Glucose Urine UA Negative (Negative); Leukocyte Esterase Urine Negative (Negative); Nitrite Urine Negative (Negative); PH 6.5 (5.0-9.0); Specific Gravity - Urine 1.025 (1.005-1.025); UMIC TRIGGER UACC YES; Urine Blood Negative (Negative); Urine Ketones Trace mg/dL (Negative); Urine Protein 30 (1+) mg/dL (Neg-Trace)
[2022-09-24 15:20] LABS: UPreg QC Valid YES; Urine Pregnancy NEGATIVE (NEGATIVE)
[2022-09-24] MEDS: Acetaminophen Oral Liquid 650 MG/20.3 ML SOLUTION 975 MG PO (15:38)
[2022-09-24 15:39] LABS: Glucose, Whole Blood 48 mg/dL (60-115)
[2022-09-24] MEDS: ondansetron HCL 4 MG/2 ML VIAL IVPUSH (15:41)
[2022-09-24 15:43] LABS: Bacteria Urine 2+ (None Seen); WBC Urine 0-5 /HPF (0-5)
[2022-09-24] MEDS: 0.9 % Sodium Chloride 1,000 ML 999 ML IV (15:49)
[2022-09-24 16:00] VITALS: BP 94/56; PULSE 70; RESP 16; TEMP 36.3; O2SAT 97
--- NOTE | 2022-09-24 16:00 | MHC.EDTECH ---
pt 1600 rounding done ,vitals sign taken ,warm blanket and apple juice given ,pt resting quietly .
[2022-09-24 16:41] LABS: Glucose, Whole Blood 173 mg/dL (60-115)
== END 2022-09-24 17:17 | disposition home or self-care (01) ==
PROVIDERS: Nurse Practitioner Family; Emergency Provider Emergency Medicine; PCP Internal Medicine
DX: B34.9 Viral infection, unspecified (principal); N39.0 Urinary tract infection, site not specified; R05.9 Cough, unspecified; R51.9 Headache, unspecified; R43.8 Other disturbances of smell and taste; R10.13 Epigastric pain; Z20.822 Contact with and (suspected) exposure to COVID-19; Z20.828 Contact with and (suspected) exposure to other viral communicable diseases; Z79.899 Other long term (current) drug therapy
CPT/HCPCS: 0241U; 36415; 80053; 81001; 81025; 82947; 83690; 85025; 96361; 96374; 99284; J2405

== ENCOUNTER 2022-10-10 12:25 | Outpatient (REF) | payer OTHER, SELFPAY | END 2022-10-10 12:26 | disposition home or self-care (01) | LOC: HO.MDS 12:25 | PROVIDERS: Visit Provider Internal Medicine | DX: D50.9 Iron deficiency anemia, unspecified (principal) | CPT/HCPCS: 96365; J1756 ==

== ENCOUNTER → 2022-10-16 13:18 | Outpatient (BNVA) | payer OTHER, SELFPAY | PROVIDERS: PCP Internal Medicine; Visit Provider Dietitian, Registered | DX: E16.2 Hypoglycemia, unspecified (principal) | CPT/HCPCS: 97803 ==

== ENCOUNTER 2022-10-17 10:44 | Outpatient (REF) | payer OTHER, SELFPAY | END 2022-10-17 10:45 | disposition home or self-care (01) | LOC: HO.MDS 10:44 | PROVIDERS: Visit Provider Internal Medicine | DX: D50.9 Iron deficiency anemia, unspecified (principal) | CPT/HCPCS: 96365; J1756 ==

== ENCOUNTER 2022-10-18 16:54 | Emergency (ER) | payer OTHER, SELFPAY ==
--- NOTE | ~2022-10-18 | CT_ITS ---
EXAMINATION: CT head and CT lumbar 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 IV contrast. CLINICAL INDICATION: Low back pain and right leg weakness. Headache. COMPARISON: MRI brain 06/20/2022. TECHNIQUE: Axial 2 mm thin and reformatted 2 mm thin sagittal and coronal images of lumbar spine were obtained. Subsequently axial 5 mm thin and reformatted 2 mm thin sagittal and coronal images of brain were obtained. DLP 786. This CT examination was performed using dose optimization technique as appropriate, variously including the following: Automated exposure control Adjustment of MA and/or KV according to patient size(this includes techniques or standardized protocols for targeted exams where dose is matched to indication/reason for exam; extremities or head. Use of iterative reconstruction techniques. FINDINGS: BRAIN: There is no acute intra-axial, extra-axial bleed, masses or midline shift. There is no acute infarction evolution. There is no edema. The lateral ventricles are symmetrical in size and configuration without enlargement. Normal singh-white differentiation is seen. No abnormality seen the posterior fossa. Bone windows reveal no calvarial abnormality. Bilateral paranasal sinuses and mastoid air cells are well-aerated. Lumbar spine: There is normal lumbar lordosis. The vertebral heights, alignment and disc heights are normal. There is inferior endplate Schmorl's node L5 vertebra. No fracture, dislocation, lytic or sclerotic process seen. Mild diffuse bulge L5-S1 disc level without spinal canal stenosis. The neural foramina are patent bilaterally. Rest of the disc levels are unremarkable. The paravertebral soft tissues are normal. CT/CT lumbar spine wo IV con IMPRESSION: No acute intracranial process seen. Inferior endplate Schmorl's node L5 vertebra with vacuum disc phenomena and mild diffuse bulge at L5-S1 disc level.
--- NOTE | ~2022-10-18 | XR_ITS ---
EXAMINATION: XR CHEST CLINICAL INFORMATION: Pain. COMPARISON: Chest radiograph 03/14/2022. TECHNIQUE: 2 views of the chest were obtained. FINDINGS: No significant abnormality is noted involving the heart, lungs, mediastinum, bony thorax or soft tissues. XR/XR chest 2V IMPRESSION: Unremarkable examination.
--- NOTE | 2022-10-18 16:57 | ECG_ITS ---
Test Reason : CHEST PAIN Blood Pressure : / mmHG Vent. Rate : 097 BPM Atrial Rate : 097 BPM P-R Int : 138 ms QRS Dur : 094 ms QT Int : 324 ms P-R-T Axes : 080 089 050 degrees QTc Int : 411 ms Normal sinus rhythm Possible Left atrial enlargement ST & T wave abnormality, consider inferior ischemia Abnormal ECG When compared with ECG of 03-SEP-2022 11:41, No significant change was found Referred By: Generic ED Physician Electronically Signed By:DINA ESQUIVEL MD
[2022-10-18 17:50] VITALS: BP 99/71; PULSE 80; RESP 18; TEMP 36.8; O2SAT 100; BMI 19.0
--- NOTE | 2022-10-18 17:55 | ED_ITS ---
HPI - General Adult General Chief complaint: General Medical <Richy Gannon - Last Filed: 10/18/22 17:56> Stated complaint: Right side pain/numbness, chest pain <Richy Gannon - Last Filed: 10/18/22 17:56> Time Seen by Provider: 10/18/22 19:57 <Richy Gannon - Last Filed: 10/18/22 17:56> Source: patient <Luis Enrique Carias MD - Last Filed: 10/19/22 01:57> Mode of arrival: ambulatory <Luis Enrique Carias MD - Last Filed: 10/19/22 01:57> Limitations: no limitations <Luis Enrique Carias MD - Last Filed: 10/19/22 01:57> History of Present Illness HPI narrative: Patient with history of hypertension , schizophrenia, bipolar disorder, migraine headaches gastric sleeve surgery comes in for non chest pain, right- sided headache right-sided numbness for last 4 days patient states that she has difficulty in walking has low back pain also when she ambulated she has little limping on the right side patient denied any significant limping in the past no nausea no vomiting no fever or chills <Luis Enrique Carias MD - Last Filed: 0 10/19/22 01:57> Related Data Home medications: Home Medications Medication Instructions Recorded Confirmed lactulose 10 gram/15 mL oral 10 g PO DAILY 08/27/20 07/27/22 solution zolpidem 10 mg tablet 10 mg PO BEDTIME PRN Sleep 08/27/20 07/27/22 quetiapine 50 mg tablet 1 tab PO BID 09/22/21 07/27/22 venlafaxine 150 mg 1 cap PO DAILY 09/22/21 07/27/22 capsule,extended release 24 hr clonazepam 1 mg tablet 1 mg PO TID 10/26/21 07/27/22 quetiapine 400 mg tablet 400 mg PO BEDTIME 10/26/21 07/27/22 ursodiol 300 mg capsule 300 mg PO BID 10/26/21 07/27/22 ziprasidone HCl 20 mg capsule 20 mg PO BID 10/26/21 07/27/22 acetaminophen 500 mg tablet 2 tab PO Q8H 02/11/22 07/27/22 famotidine 40 mg tablet 1 tab PO BEDTIME 02/11/22 07/27/22 hydroxyzine pamoate 50 mg capsule 1 cap PO BID PRN Anxiety 02/11/22 07/27/22 linaclotide 290 mcg capsule 1 cap PO DAILY 02/11/22 07/27/22 (Linzess) ondansetron 4 mg disintegrating 1 tab PO Q8H PRN nausea 02/11/22 07/27/22 tablet pantoprazole 40 mg tablet,delayed 40 mg PO DAILY@0630 02/11/22 07/27/22 release blood sugar diagnostic (Sport Universal ProcessTouch 08/15/22 Verio test strips) blood-glucose meter (Sport Universal ProcessTouch 08/15/22 Verio Meter) lancets 33 gauge (OneTouch Delica 08/15/22 Lancets) tolterodine 4 mg capsule,extended 4 mg PO DAILY 08/15/22 release 24 hr Previous Rx's Medication Instructions Recorded vitamin B complex (B 1 tab PO DAILY #30 tabs 07/13/21 Complex-Vitamin B12 tablet) blood pressure monitor (Blood #1 ea 10/31/21 Pressure Kit) atorvastatin 20 mg tablet 20 mg PO DAILY #90 tabs 01/27/22 BATH CHAIR #1 ea 01/31/22 CANE #1 ea 01/31/22 LIFELINE ALERT SYSTEM #1 ea 01/31/22 WRIST BRACE #1 ea 01/31/22 ALCOHOL PADS #100 ea 02/21/22 glucagon 1 mg solution for 1 mg IVPUSH ONCE PRN hypoglycemia 03/09/22 injection (GlucaGen HypoKit) below 55 #1 ea lidocaine 5 % topical patch 1 patch topical DAILY 30 days #30 03/09/22 (Lidoderm) ea diphenhydramine HCl 25 mg capsule 25 mg PO BEDTIME PRN sleep #90 caps 03/10/22 (Benadryl) codeine 10 mg-guaifenesin 100 mg/5 10 ml PO Q6H PRN cough #237 mL 04/02/22 mL oral liquid acarbose 25 mg tablet 25 mg PO TID #90 tabs 04/13/22 oxycodone 5 mg tablet 5 mg PO Q6H PRN pain #14 tabs 04/25/22 terconazole 0.8 % vaginal cream 1 appful vaginal BEDTIME 04/25/22 Candidiasis vaginitis 3 days #20 grams sucralfate 100 mg/mL oral 10 ml PO BID #420 mL 05/17/22 suspension (Carafate) polyethylene glycol 3350 17 gram 17 g PO DAILY #30 ea 05/22/22 oral powder packet (Miralax) ROLLATOR #1 ea 05/23/22 food supplemt, lactose-reduced 1 ea PO TID 30 days #5,688 mL 05/23/22 (Ensure High Protein oral liquid) WRIST SPLINT Right and Left hand #1 ea 05/30/22 ENSURE once a day #90 ea 06/08/22 SHOWER BAR #1 ea 06/08/22 SHOWER WAND #1 ea 06/08/22 ondansetron 4 mg disintegrating 4 mg PO Q8H PRN nausea and 06/10/22 tablet vomiting #10 tabs acetaminophen 160 mg/5 mL oral 500 mg (15.625 mL) PO QID PRN 06/26/22 suspension (Children's Tylenol) pain, temp 7 days #120 mL sucralfate 1 gram tablet 1 g PO TID #90 tabs 07/06/22 Bed pads #100 ea 07/17/22 Bedside commode #1 ea 07/17/22 SANITARY PADS #100 ea 07/17/22 ascorbate calcium (vitamin C) 814 407 mg PO DAILY #60 grams 07/25/22 mg/gram oral powder ferrous sulfate 15 mg iron (75 15 mg PO DAILY #120 mL 07/25/22 mg)/mL oral syringe (ORAL USE) bisacodyl 10 mg rectal suppository 10 mg AR DAILY PRN constipation 07/27/22 (Dulcolax (bisacodyl)) #12 ea fluticasone propionate 50 1 spray intranasal DAILY #100 mL 07/27/22 mcg/actuation nasal spray,suspension (Flonase Allergy Relief) Magic Mouthwash 5 ml PO .Q.a.c. #240 mL 07/29/22 Diphen/Lido/Antacid 1:1:1 240 mL suspension lorazepam 1 mg tablet 1 mg PO TID PRN anxiety #10 tabs 07/29/22 lorazepam 1 mg tablet (Ativan) 1 mg PO BID PRN anxiety #14 tabs 08/20/22 aluminum-mag hydroxide-simethicone 5 ml PO 5XD PRN dyspepsia #355 mL 08/21/22 200 mg-200 mg-20 mg/5 mL oral susp (Maalox Advanced) dicyclomine 10 mg/5 mL oral 10 mg (5 mL) PO BID Abdominal pain 09/03/22 solution #473 mL lidocaine HCl 2 % mucosal solution 1 appl mucous membrane TID PRN 09/20/22 (Lidocaine Viscous) pain #100 mL simethicone 40 mg/0.6 mL oral 0.6 ml PO BID-TID PRN abdominal 09/20/22 drops,suspension distention #15 mL tramadol 50 mg tablet 50 mg PO Q6H PRN pain 30 days #60 09/20/22 tabs acetaminophen 160 mg/5 mL oral 960 mg (30 mL) PO Q6H PRN fever or 09/24/22 suspension (Children's Tylenol) pain #360 mL cephalexin 250 mg/5 mL oral 500 mg (10 mL) PO BID 7 days #140 09/24/22 suspension mL ondansetron 4 mg disintegrating 4 mg PO Q8H PRN nausea and 09/24/22 tablet vomiting #10 tabs cyclobenzaprine 5 mg tablet 5 mg PO BEDTIME PRN muscle spasm 10/06/22 15 days #45 tabs cholecalciferol (vitamin D3) 50 50 mcg PO DAILY #90 tabs 10/13/22 mcg (2,000 unit) tablet (Vitamin D3) dicyclomine 20 mg tablet 20 mg PO BID #60 tabs 10/13/22 bcriksymfn-ydvhtlwlzehjf-stmoxqoj 1 cap PO Q6H PRN headache #20 caps 10/18/22 50 mg-300 mg-40 mg capsule (Fioricet) <Richy Gannon - Last Filed: 10/18/22 17:56> Allergies/adverse reactions: Allergies Allergy/AdvReac Type Severity Reaction Status Date / Time tomato [TOMATO] Allergy Mild HIVES Verified 09/03/22 11:13 DIFFICULTY BREATHING hydrocodone [HYDROCODONE] Allergy Unknown RASH, Verified 09/03/22 11:13 AIRWAY CLOSES ibuprofen [From MOTRIN] Allergy Unknown STOMACH Verified 09/03/22 11:13 UPSET, vomiting trazodone [TRAZODONE] Allergy Unknown UNKNOWN, Verified 09/03/22 11:13 stomach upset black pepper [BLACK PEPPER] AdvReac Severe DIFFICULTY Verified 09/03/22 11:13 BREATHING, hives lisinopril AdvReac Severe Anaphylaxis Verified 09/03/22 11:13 <Richy Gannon - Last Filed: 10/18/22 17:56> Review of Systems Review of Systems: Yes all other systems are reviewed and are negative <Luis Enrique Carias MD - Last Filed: 10/19/22 01:57> FOR[facility]LY [facility] Past Medical History Medical History: 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 Diverticulosis GERD (gastroesophageal reflux disease) History of bipolar disorder History of schizophrenia Hypercholesterolemia Hypertension Insomnia Numbness of left hand Renal calculi Spondylosis of lumbar spine Type 2 diabetes mellitus with hyperglycemia Vitamin D deficiency <Richy Gannon - Last Filed: 10/18/22 17:56> Surgical History: Surgical History H/O: hysterectomy History of tubal ligation Hx of bariatric surgery <Richy Gannon - Last Filed: 10/18/22 17:56> Family History Family History: Family History Father Medical history unknown Mother Medical history unknown Paternal Aunt Uterine cancer Diabetes Hypertension Paternal Uncle Liver cancer Heart attack Maternal Aunt Stroke Family/Other Chronic mental illness Sister Uterine cancer Schizophrenia Brother Substance abuse Other Mental health disorder <Richy Gannon - Last Filed: 10/18/22 17:56> Social History Social History: Social History Household Members: None Housing: Apartment Do you presently have visiting nurse or other home services: Yes Alcohol intake: never Patient Tobacco Use Status: Never used Tobacco e-Cigarette/Vaping Use: Never Used Second Hand Smoke Exposure: No Advance Directives: No Advance Directives Information Provided: No service: No Current occupational status: disabled Current occupational exposures/hazards: No Cognitive needs: No Hearing needs: No Vision needs: No <Richy Gannon - Last Filed: 10/18/22 17:56> Physical Exam ED Vital Signs: Vital Signs - 24 hr 10/18/22 17:50 10/18/22 19:47 10/18/22 21:38 Temperature 98.3 F 98.9 F 98.4 F Pulse Rate 80 77 72 Respiratory Rate 18 18 18 Blood Pressure 99/71 112/62 107/66 Pulse Oximetry 100 99 98 Oxygen Delivery Method Room Air Room Air Room Air 10/18/22 23:45 Temperature 98.2 F Pulse Rate 59 Respiratory Rate 18 Blood Pressure 115/73 Pulse Oximetry 100 Oxygen Delivery Method Room Air BMI result Body Mass Index 19.0 <Richy Gannon - Last Filed: 10/18/22 17:56> Vital Signs - 24 hr 10/18/22 17:50 10/18/22 19:47 10/18/22 21:38 Temperature 98.3 F 98.9 F 98.4 F Pulse Rate 80 77 72 Respiratory Rate 18 18 18 Blood Pressure 99/71 112/62 107/66 Pulse Oximetry 100 99 98 Oxygen Delivery Method Room Air Room Air Room Air 10/18/22 23:45 Temperature 98.2 F Pulse Rate 59 Respiratory Rate 18 Blood Pressure 115/73 Pulse Oximetry 100 Oxygen Delivery Method Room Air BMI result Body Mass Index 19.0 <Luis Enrique Carias MD - Last Filed: 10/19/22 01:57> Appearance: Alert. Oriented X3. No acute distress. Eyes: PERRLA, No Nystagmus ENT: Pharynx normal. Oral Mucosa moist Neck: Normal inspection. Neck supple. CVS: Normal heart rate and rhythm. Pulses normal. Respiratory: No respiratory distress. Equal air entry bilateral, no wheezing/rales/rhonchi Abdomen: Soft and nontender. Bowel sounds are present, no mass palpable, no CVA tenderness Skin: Skin warm and dry. Normal skin color. Normal skin turgor. back: Diffuse lumbar spine tenderness no focal tenderness Extremities: No lower extremity edema. No calf tenderness Neuro: Oriented X 3. No motor deficit. No sensory deficit.No cerebellar signs , cranial nerves II-XII intact DTR 2+ diffuse right leg weakness SLR negative ambulatory with limping on the right side <Luis Enrique Carias MD - Last Filed: 10/19/22 01:57> Course Course Course Narrative: 41-year-old female presents for evaluation of multiple complaints including chest pain, entire many numbness. She reports her symptoms started 4 days ago. Had a stroke score 0, labs ordered, a patient will be placed back in the waiting room awaiting availability <Richy Gannon - Last Filed: 10/18/22 17:56> Medications Administered Discontinued Medications Generic Name Dose Route Start Last Admin Trade Name Freq PRN Reason Stop Dose Admin Ketorolac Tromethamine 60 mg 10/18/22 23:18 10/18/22 23:27 Ketorolac Tromethamine 60 Mg/2 Ml Vial IM 10/18/22 23:19 60 mg ONCE ONE Administration <Richy Gannon - Last Filed: 10/18/22 17:56> Medications Administered Discontinued Medications Generic Name Dose Route Start Last Admin Trade Name Freq PRN Reason Stop Dose Admin Ketorolac Tromethamine 60 mg 10/18/22 23:18 10/18/22 23:27 Ketorolac Tromethamine 60 Mg/2 Ml Vial IM 10/18/22 23:19 60 mg ONCE ONE Administration <Luis Enrique Carias MD - Last Filed: 10/19/22 01:57> Medical Decision Making Medical Decision Making [facility] Narrative: Patient with multiple complaints head CT is negative for any brain lesion/CVA patient's headache and numbness also on the right patient does have a slight footdrop. At this time there is no central lesion to explain her symptoms CT scan of the head and lumbar spine essentially negative symptomatology been there for last 4 days. Patient advised to take aspirin daily and follow with neurologist <Luis Enrique Carias MD - Last Filed: 10/19/22 01:57> Differential Diagnosis CVA/psychogenic/chronic back pain <Luis Enrique Carias MD - Last Filed: 10/19/22 01:57> Lab Data [facility] Lab Attestation statement: I reviewed the patient's lab results. <Luis Enrique Carias MD - Last Filed: 10/19/22 01:57> Result Diagrams: 10/18/22 18:38 10/18/22 18:38 <Richy Gannon - Last Filed: 10/18/22 17:56> Labs: Lab Results 10/18/22 10/18/22 10/18/22 Range/Units 18:38 18:38 18:38 WBC 5.7 (4.8-10.8) X10*3/uL RBC 4.39 (4.20-5.50) X10*6/uL Hgb 11.7 L (12.0-16.0) g/dl Hct 36.3 L (37.0-47.0) % MCV 82.7 (80.0-98.0) fL MCH 26.7 L (27.0-33.0) pg MCHC 32.2 (31.0-35.0) g/dl RDW 21.0 H (11.0-16.0) % Plt Count 355 (160-400) X10*3/uL MPV 9.4 (9.4-12.3) fL Immature Gran % (Auto) 0.2 (0.0-0.4) % Neut % (Auto) 59.7 (45-73) % Lymph % (Auto) 32.6 (20-40) % Mcdonough % (Auto) 6.1 (2-11) % Eos % (Auto) 0.7 (0-4) % Baso % (Auto) 0.7 (0-2) % Lymph # (Auto) 1.9 (1.2-4.9) X10*3/uL Mcdonough # (Auto) 0.4 (0.1-1.2) X10*3/uL Eos # (Auto) 0.0 (0.0-0.4) X10*3/uL Baso # (Auto) 0.0 (0.0-0.2) X10*3/uL Abs Immat Gran (auto) 0.01 (0.00-0.03) X10*3/uL Absolute Neuts (auto) 3.4 (2.0-8.3) x10*3/uL Absolute Nucleated RBC 0.000 (0.0-0.012) X10*3/uL Nucleated RBC % (auto) 0.0 (0.0-0.2) /100WBC Sodium 141 (135-145) mmol/L Potassium 3.9 (3.3-5.1) mmol/L Chloride 107 (96-108) mmol/L Carbon Dioxide 24 (22-29) mmol/L Anion Gap 14 (12-20) BUN 14 (9-16) mg/dL Creatinine 0.65 (0.5-1.4) mg/dL Estim Creat Clear Calc 84.7 Estimated GFR > 60 Random Glucose 64 (60-115) mg/dL Calcium 9.4 (8.4-10.2) mg/dL Magnesium 2.1 (1.6-2.6) mg/dL Total Bilirubin < 0.2 (0.0-1.0) mg/dL AST 12 (5-31) U/L ALT 9 (0-31) U/L Alkaline Phosphatase 57 (39-117) U/L Troponin I High Sens < 3.5 (<3.5-17.0) ng/L Total Protein 6.9 (6.5-8.0) g/dL Albumin 4.4 (3.5-5.0) g/dL <Richy Gannon - Last Filed: 10/18/22 17:56> Lab Results 10/18/22 10/18/22 10/18/22 Range/Units 18:38 18:38 18:38 WBC 5.7 (4.8-10.8) X10*3/uL RBC 4.39 (4.20-5.50) X10*6/uL Hgb 11.7 L (12.0-16.0) g/dl Hct 36.3 L (37.0-47.0) % MCV 82.7 (80.0-98.0) fL MCH 26.7 L (27.0-33.0) pg MCHC 32.2 (31.0-35.0) g/dl RDW 21.0 H (11.0-16.0) % Plt Count 355 (160-400) X10*3/uL MPV 9.4 (9.4-12.3) fL Immature Gran % (Auto) 0.2 (0.0-0.4) % Neut % (Auto) 59.7 (45-73) % Lymph % (Auto) 32.6 (20-40) % Mcdonough % (Auto) 6.1 (2-11) % Eos % (Auto) 0.7 (0-4) % Baso % (Auto) 0.7 (0-2) % Lymph # (Auto) 1.9 (1.2-4.9) X10*3/uL Mcdonough # (Auto) 0.4 (0.1-1.2) X10*3/uL Eos # (Auto) 0.0 (0.0-0.4) X10*3/uL Baso # (Auto) 0.0 (0.0-0.2) X10*3/uL Abs Immat Gran (auto) 0.01 (0.00-0.03) X10*3/uL Absolute Neuts (auto) 3.4 (2.0-8.3) x10*3/uL Absolute Nucleated RBC 0.000 (0.0-0.012) X10*3/uL Nucleated RBC % (auto) 0.0 (0.0-0.2) /100WBC Sodium 141 (135-145) mmol/L Potassium 3.9 (3.3-5.1) mmol/L Chloride 107 (96-108) mmol/L Carbon Dioxide 24 (22-29) mmol/L Anion Gap 14 (12-20) BUN 14 (9-16) mg/dL Creatinine 0.65 (0.5-1.4) mg/dL Estim Creat Clear Calc 84.7 Estimated GFR > 60 Random Glucose 64 (60-115) mg/dL Calcium 9.4 (8.4-10.2) mg/dL Magnesium 2.1 (1.6-2.6) mg/dL Total Bilirubin < 0.2 (0.0-1.0) mg/dL AST 12 (5-31) U/L ALT 9 (0-31) U/L Alkaline Phosphatase 57 (39-117) U/L Troponin I High Sens < 3.5 (<3.5-17.0) ng/L Total Protein 6.9 (6.5-8.0) g/dL Albumin 4.4 (3.5-5.0) g/dL <Luis Enrique Carias MD - Last Filed: 10/19/22 01:57> Discharge Plan Discharge Clinical Impression: Paresthesia, Headache <Richy Gannon - Last Filed: 10/18/22 17:56> Patient Disposition: Home, Self-Care <Richy Gannon - Last Filed: 10/18/22 17:56> Additional Instructions: At this time no finding of the stroke Likely you migraine causing the weakness and numbness take Fioricet 1 tablet every 8 hours as needed Follow with neurologist <Richy Gannon - Last Filed: 10/18/22 17:56> Prescriptions: New qwcbvucrpq-kfzhknkwvfula-twad [Fioricet] 50-300-40 mg capsule 1 cap PO Q6H PRN (Reason: headache) Qty: 20 0RF No Action vitamin B complex [B Complex-Vitamin B12] Tablet 1 tab PO DAILY Qty: 30 6RF Rx Instructions: 1,000mcg dose daily (DME) blood pressure monitor [Blood Pressure Kit] Kit See Rx Instructions .Route Qty: 1 0RF Rx Instructions: As directed atorvastatin 20 mg tablet 20 mg PO DAILY Qty: 90 3RF (DME) CANE See Rx Instructions .Route .MEDSUPPLY Qty: 1 0RF Rx Instructions: As directed ([facility] [place]) WRIST BRACE See Rx Instructions .Route .MEDSUPPLY Qty: 1 0RF Rx Instructions: As directed ([facility] [place]) BATH CHAIR See Rx Instructions .Route .MEDSUPPLY Qty: 1 0RF Rx Instructions: As directed ([facility] [place]) LIFELINE ALERT SYSTEM See Rx Instructions .Route .MEDSUPPLY Qty: 1 0RF Rx Instructions: As directed ([facility] [place]) ALCOHOL PADS See Rx Instructions .Route .MEDSUPPLY Qty: 100 3RF Rx Instructions: As directed lidocaine [Lidoderm] 5 % adhesive patch,medicated 1 patch topical DAILY 30 Days Qty: 30 3RF Rx Instructions: leave on most painful area for up to 12 hrs diphenhydramine HCl [Benadryl] 25 mg capsule 25 mg PO BEDTIME PRN (Reason: sleep) Qty: 90 2RF polyethylene glycol 3350 [Miralax] 17 gram powder in packet 17 g PO DAILY Qty: 30 5RF (DME) ROLLATOR See Rx Instructions .Route .MEDSUPPLY Qty: 1 0RF Rx Instructions: As directed Ensure High Protein Liquid 1 ea PO TID 30 Days Qty: 5688 0RF (DME) WRIST SPLINT Right and Left hand See Rx Instructions .Route .MEDSUPPLY Qty: 1 0RF Rx Instructions: As directed ([facility] [place]) SHOWER WAND See Rx Instructions .Route .MEDSUPPLY Qty: 1 0RF Rx Instructions: As directed ([facility] [place]) SHOWER BAR See Rx Instructions .Route .MEDSUPPLY Qty: 1 0RF Rx Instructions: As directed (DME) ENSURE once a day See Rx Instructions .Route .MEDSUPPLY Qty: 90 0RF Rx Instructions: As directed acetaminophen [Children's Tylenol] 160 mg/5 mL suspension 500 mg PO QID PRN (Reason: pain, temp) 7 Days Qty: 120 0RF (DME) Bedside commode See Rx Instructions .Route .MEDSUPPLY Qty: 1 0RF Rx Instructions: As directed (DME) Bed pads See Rx Instructions .Route .MEDSUPPLY Qty: 100 12RF Rx Instructions: As directed (DME) SANITARY PADS See Rx Instructions .Route .MEDSUPPLY Qty: 100 12RF Rx Instructions: As directed ferrous sulfate 15 mg iron (75 mg)/mL syringe 15 mg PO DAILY Qty: 120 0RF ascorbate calcium (vitamin C) 814 mg/gram powder 407 mg PO DAILY Qty: 60 0RF alum-mag hydroxide-simeth [Maalox Advanced] 200-200-20 mg/5 mL suspension 5 ml PO 5XD PRN (Reason: dyspepsia) Qty: 355 0RF Rx Instructions: administer between meals and at bedtime tramadol 50 mg tablet 50 mg PO Q6H PRN (Reason: pain) 30 Days Qty: 60 1RF simethicone 40 mg/0.6 mL drops,suspension 0.6 ml PO BID-TID PRN (Reason: abdominal distention) Qty: 15 0RF lidocaine HCl [Lidocaine Viscous] 2 % solution 1 appl mucous membrane TID PRN (Reason: pain) Qty: 100 0RF cyclobenzaprine 5 mg tablet 5 mg PO BEDTIME PRN (Reason: muscle spasm) 15 Days Qty: 45 0RF cholecalciferol (vitamin D3) [Vitamin D3] 50 mcg (2,000 unit) tablet 50 mcg PO DAILY Qty: 90 0RF dicyclomine 20 mg tablet 20 mg PO BID Qty: 60 2RF venlafaxine 150 mg capsule,extended release 24hr 1 cap PO DAILY quetiapine 50 mg tablet 1 tab PO BID codeine-guaifenesin 10-100 mg/5 mL liquid 10 ml PO Q6H PRN (Reason: cough) Qty: 237 0RF terconazole 0.8 % cream 1 appful vaginal BEDTIME 3 Days Qty: 20 0RF oxycodone 5 mg tablet 5 mg PO Q6H PRN (Reason: pain) Qty: 14 0RF Rx Instructions: Partial Fill upon patient request. sucralfate [Carafate] 100 mg/mL suspension 10 ml PO BID Qty: 420 0RF ondansetron 4 mg tablet,disintegrating 4 mg PO Q8H PRN (Reason: nausea and vomiting) Qty: 10 0RF sucralfate 1 gram tablet 1 g PO TID Qty: 90 0RF Magic Mouthwash Diphen/Lido/Antacid 1:1:1 240 mL suspension 5 ml PO .Q.a.c. Qty: 240 1RF Rx Instructions: Lidocaine Viscous 2 % 80mL; diphenhydramine 12.5 mg/5 mL 80mL; aluminum-mag hydrox-simeth 332hp-[id number]-79im/5mL 80mL. 5-10 mL gargle and swallow up to 4 times a day lorazepam 1 mg tablet 1 mg PO TID PRN (Reason: anxiety) Qty: 10 0RF lorazepam [Ativan] 1 mg tablet 1 mg PO BID PRN (Reason: anxiety) Qty: 14 0RF dicyclomine 10 mg/5 mL solution 10 mg PO BID Qty: 473 0RF ondansetron 4 mg tablet,disintegrating 4 mg PO Q8H PRN (Reason: nausea and vomiting) Qty: 10 0RF acetaminophen [Children's Tylenol] 160 mg/5 mL suspension 960 mg PO Q6H PRN (Reason: fever or pain) Qty: 360 0RF cephalexin 250 mg/5 mL suspension for reconstitution 500 mg PO BID 7 Days Qty: 140 0RF famotidine 40 mg tablet 1 tab PO BEDTIME hydroxyzine pamoate 50 mg capsule 1 cap PO BID PRN (Reason: Anxiety) acetaminophen 500 mg tablet 2 tab PO Q8H ondansetron 4 mg tablet,disintegrating 1 tab PO Q8H PRN (Reason: nausea) Linzess 290 mcg capsule 1 cap PO DAILY pantoprazole 40 mg tablet,delayed release (DR/EC) 40 mg PO DAILY@0630 zolpidem 10 mg tablet 10 mg PO BEDTIME PRN (Reason: Sleep) lactulose 10 gram/15 mL solution 10 g PO DAILY ziprasidone HCl 20 mg capsule 20 mg PO BID quetiapine 400 mg tablet 400 mg PO BEDTIME ursodiol 300 mg capsule 300 mg PO BID clonazepam 1 mg tablet 1 mg PO TID bisacodyl [Dulcolax (bisacodyl)] 10 mg suppository 10 mg AR DAILY PRN (Reason: constipation) Qty: 12 0RF fluticasone propionate [Flonase Allergy Relief] 50 mcg/actuation spray,suspension 1 spray intranasal DAILY Qty: 100 0RF Rx Instructions: administer into each nostril GlucaGen HypoKit 1 mg recon soln 1 mg IVPUSH ONCE PRN (Reason: hypoglycemia below 55) Qty: 1 0RF acarbose 25 mg tablet 25 mg PO TID Qty: 90 3RF (DME) blood-glucose meter [OneTouch Verio Meter] Misc See Rx Instructions .ROUTE Rx Instructions: As directed (DME) OneTouch Verio test strips Strip See Rx Instructions .ROUTE Rx Instructions: As directed 3 times a day (DME) lancets [OneTouch Delica Lancets] 33 gauge misc See Rx Instructions .ROUTE Rx Instructions: As directed 3 times a day tolterodine 4 mg capsule,extended release 24hr 4 mg PO DAILY <Richy Gannon - Last Filed: 10/18/22 17:56> Referrals: Ulises Arnold MD [Physician] - 3 days <Richy Gannon - Last Filed: 10/18/22 17:56> Interventions: ED Discharge Assessment Last Done: 10/18/22 23:57 <Richy Gannon - Last Filed: 10/18/22 17:56> Discharge Date/Time: 10/18/22 23:57 <iRchy Gannon - Last Filed: 10/18/22 17:56>
[2022-10-18 18:43] LABS: Basophils Percent Auto 0.7 % (0-2); Eosinophils Percent Auto 0.7 % (0-4); Hematocrit 36.3 % (37.0-47.0); Hemoglobin 11.7 g/dl (12.0-16.0); Imm Gran Abs Auto 0.01 X10*3/uL (0.00-0.03); Imm Gran Pct Auto 0.2 % (0.0-0.4); Lymphocytes Absolute Auto 1.9 X10*3/uL (1.2-4.9); Lymphocytes Percent Auto 32.6 % (20-40); MANUAL DIFF FLAG NO; Mean Corpuscular HGB Conc 32.2 g/dl (31.0-35.0); Mean Corpuscular Hemoglobin 26.7 pg (27.0-33.0); Mean Corpuscular Volume 82.7 fL (80.0-98.0); Mean Platelet Volume 9.4 fL (9.4-12.3); Monocytes Absolute Auto 0.4 X10*3/uL (0.1-1.2); Monocytes Percent Auto 6.1 % (2-11); Neutrophils Absolute Auto 3.4 x10*3/uL (2.0-8.3); Neutrophils Percent Auto 59.7 % (45-73); Platelet Count 355 X10*3/uL (160-400); Red Blood Count 4.39 X10*6/uL (4.20-5.50); White Blood Count 5.7 X10*3/uL (4.8-10.8)
[2022-10-18 18:58] LABS: Alanine Aminotransferase 9 U/L (0-31); Albumin Level 4.4 g/dL (3.5-5.0); Alkaline Phosphatase 57 U/L (39-117); Anion Gap 14 (12-20); Aspartate Amino Transferase 12 U/L (5-31); Bilirubin Total < 0.2 mg/dL (0.0-1.0); Blood Urea Nitrogen 14 mg/dL (9-16); Calcium 9.4 mg/dL (8.4-10.2); Carbon Dioxide 24 mmol/L (22-29); Chloride 107 mmol/L (96-108); Creatinine Clr Calc Pharmacy 84.7; Estimated Glomerular Filt Rate > 60; Glucose Random 64 mg/dL (60-115); Magnesium 2.1 mg/dL (1.6-2.6); Potassium 3.9 mmol/L (3.3-5.1); Sodium 141 mmol/L (135-145); Total Protein 6.9 g/dL (6.5-8.0)
[2022-10-18 19:06] LABS: Troponin-I High Sensitivity < 3.5 ng/L (<3.5-17.0)
[2022-10-18 19:47] VITALS: BP 112/62; PULSE 77; RESP 18; TEMP 37.2; O2SAT 99
[2022-10-18 21:38] VITALS: BP 107/66; PULSE 72; RESP 18; TEMP 36.9; O2SAT 98
--- NOTE | 2022-10-18 23:20 | PC.NURSE ---
Attempted to give pt fiorcet. Pt denies at this time stating she cannot swallow pills. Provider made aware.
[2022-10-18] MEDS: Ketorolac Tromethamine 60 MG/2 ML VIAL IM (23:27)
[2022-10-18 23:45] VITALS: BP 115/73; PULSE 59; RESP 18; TEMP 36.8; O2SAT 100
== END 2022-10-18 23:57 | disposition home or self-care (01) ==
PROVIDERS: Physician Assistant; Emergency Provider Internal Medicine; PCP Internal Medicine
DX: R20.2 Paresthesia of skin (principal); R51.9 Headache, unspecified; I10 Essential (primary) hypertension; E78.00 Pure hypercholesterolemia, unspecified; Z79.899 Other long term (current) drug therapy
CPT/HCPCS: 36415; 70450; 71046; 72131; 80053; 83735; 84484; 85025; 93005; 96372; 99284; J1885

== ENCOUNTER 2022-10-23 02:59 | Emergency (ER) | payer OTHER, SELFPAY ==
--- NOTE | ~2022-10-23 | CT_ITS ---
EXAMINATION: CT ABDOMEN AND PELVIS WITH CONTRAST CLINICAL INFORMATION: Epigastric pain COMPARISON: 09/03/2022 TECHNIQUE: Multidetector volumetric images were obtained from the superior aspect of the liver through the pubic symphysis following administration 85 mL of Omnipaque 350 intravenous contrast. Sagittal and coronal reformatted images were obtained on the technologist's workstation. Oral contrast: No This CT examination was performed using dose optimization techniques as appropriate, variously including the following: *Automated exposure control *Adjustment of mA and/or kV according to patient size (this includes techniques or standardized protocols for targeted exams where dose is matched to indication/reason for exam; i.e. extremities or head) *Use of iterative reconstruction technique DLP: 267 mGy-cm FINDINGS: LUNG BASES: The visualized lung bases are unremarkable. LIVER, GALLBLADDER, AND BILIARY TREE: The liver is normal in size, shape, and attenuation. No biliary ductal dilatation. There are a few subcentimeter hypoattenuating lesions in the liver which are too small to fully characterize. These are unchanged. The gallbladder is unremarkable with no evidence of radiopaque gallstones, gallbladder wall thickening, or obvious pericholecystic inflammatory changes. PANCREAS: Homogenous pancreatic parenchyma. There are 2 small calcifications seen at the periphery of the pancreatic head, unchanged from recent prior. SPLEEN: Unremarkable. ADRENAL GLANDS: Unremarkable. KIDNEYS AND URETERS: The kidneys are normal in size, shape, and attenuation. No hydronephrosis, hydroureter, or calculi seen. No perinephric stranding. BLADDER: Unremarkable. GASTROINTESTINAL TRACT: Status post gastric sleeve. Normal caliber small bowel. No obstruction. Normal appendix. No colonic wall thickening or inflammation. No free air or free fluid. ABDOMINAL WALL: No significant hernia is appreciated. LYMPH NODES: Normal. VASCULAR: Unremarkable. PELVIC VISCERA: Uterus not seen. No adnexal mass. OSSEOUS STRUCTURES: No acute or suspicious osseous abnormality. Mild degenerative change throughout the spine. CT/CT abdomen pelvis w IV con IMPRESSION: No acute findings in the abdomen or pelvis. No inflammatory changes. Fleischner guidelines were followed.
[2022-10-23 03:27] VITALS: BP 132/81; PULSE 91; RESP 16; TEMP 36.1; O2SAT 98; BMI 19.0
--- NOTE | 2022-10-23 03:56 | ED.ABDPAIN ---
HPI - Abdominal Pain General Chief Complaint: Abdominal Pain Stated Complaint: stomach pain, n/v Time Seen by Provider: 10/23/22 03:45 History of Present Illness HPI narrative: Patient is a 42-year-old female with a history of gastric sleeve surgery presents today with having epigastric pain. Ongoing for the last few weeks. The gastric sleeve surgery was done 1 year ago at [facility]. No fever no chills. No chest pain. Positive burning sensation to the epigastric area. No nausea no vomiting. Positive decreasing appetite. Worse at night. No change in bowel movement. No blood in the stool. Related Data Home Medications Medication Instructions Recorded Confirmed lactulose 10 gram/15 mL oral 10 g PO DAILY 08/27/20 07/27/22 solution zolpidem 10 mg tablet 10 mg PO BEDTIME PRN Sleep 08/27/20 07/27/22 quetiapine 50 mg tablet 1 tab PO BID 09/22/21 07/27/22 venlafaxine 150 mg 1 cap PO DAILY 09/22/21 07/27/22 capsule,extended release 24 hr clonazepam 1 mg tablet 1 mg PO TID 10/26/21 07/27/22 quetiapine 400 mg tablet 400 mg PO BEDTIME 10/26/21 07/27/22 ursodiol 300 mg capsule 300 mg PO BID 10/26/21 07/27/22 ziprasidone HCl 20 mg capsule 20 mg PO BID 10/26/21 07/27/22 acetaminophen 500 mg tablet 2 tab PO Q8H 02/11/22 07/27/22 famotidine 40 mg tablet 1 tab PO BEDTIME 02/11/22 07/27/22 hydroxyzine pamoate 50 mg capsule 1 cap PO BID PRN Anxiety 02/11/22 07/27/22 linaclotide 290 mcg capsule 1 cap PO DAILY 02/11/22 07/27/22 (Linzess) ondansetron 4 mg disintegrating 1 tab PO Q8H PRN nausea 02/11/22 07/27/22 tablet pantoprazole 40 mg tablet,delayed 40 mg PO DAILY@0630 02/11/22 07/27/22 release blood sugar diagnostic (mEgouch 08/15/22 Verio test strips) blood-glucose meter (GraduwayTouch 08/15/22 Verio Meter) lancets 33 gauge (OneTouch Delica 08/15/22 Lancets) tolterodine 4 mg capsule,extended 4 mg PO DAILY 08/15/22 release 24 hr Previous Rx's Medication Instructions Recorded vitamin B complex (B 1 tab PO DAILY #30 tabs 07/13/21 Complex-Vitamin B12 tablet) blood pressure monitor (Blood #1 ea 10/31/21 Pressure Kit) atorvastatin 20 mg tablet 20 mg PO DAILY #90 tabs 01/27/22 BATH CHAIR #1 ea 01/31/22 CANE #1 ea 01/31/22 LIFELINE ALERT SYSTEM #1 ea 01/31/22 WRIST BRACE #1 ea 01/31/22 ALCOHOL PADS #100 ea 02/21/22 glucagon 1 mg solution for 1 mg IVPUSH ONCE PRN hypoglycemia 03/09/22 injection (GlucaGen HypoKit) below 55 #1 ea lidocaine 5 % topical patch 1 patch topical DAILY 30 days #30 03/09/22 (Lidoderm) ea diphenhydramine HCl 25 mg capsule 25 mg PO BEDTIME PRN sleep #90 caps 03/10/22 (Benadryl) codeine 10 mg-guaifenesin 100 mg/5 10 ml PO Q6H PRN cough #237 mL 04/02/22 mL oral liquid acarbose 25 mg tablet 25 mg PO TID #90 tabs 04/13/22 oxycodone 5 mg tablet 5 mg PO Q6H PRN pain #14 tabs 04/25/22 terconazole 0.8 % vaginal cream 1 appful vaginal BEDTIME 04/25/22 Candidiasis vaginitis 3 days #20 grams sucralfate 100 mg/mL oral 10 ml PO BID #420 mL 05/17/22 suspension (Carafate) polyethylene glycol 3350 17 gram 17 g PO DAILY #30 ea 05/22/22 oral powder packet (Miralax) ROLLATOR #1 ea 05/23/22 food supplemt, lactose-reduced 1 ea PO TID 30 days #5,688 mL 05/23/22 (Ensure High Protein oral liquid) WRIST SPLINT Right and Left hand #1 ea 05/30/22 ENSURE once a day #90 ea 06/08/22 SHOWER BAR #1 ea 06/08/22 SHOWER WAND #1 ea 06/08/22 ondansetron 4 mg disintegrating 4 mg PO Q8H PRN nausea and 06/10/22 tablet vomiting #10 tabs acetaminophen 160 mg/5 mL oral 500 mg (15.625 mL) PO QID PRN 06/26/22 suspension (Children's Tylenol) pain, temp 7 days #120 mL sucralfate 1 gram tablet 1 g PO TID #90 tabs 07/06/22 Bed pads #100 ea 07/17/22 Bedside commode #1 ea 07/17/22 SANITARY PADS #100 ea 07/17/22 ascorbate calcium (vitamin C) 814 407 mg PO DAILY #60 grams 07/25/22 mg/gram oral powder ferrous sulfate 15 mg iron (75 15 mg PO DAILY #120 mL 07/25/22 mg)/mL oral syringe (ORAL USE) bisacodyl 10 mg rectal suppository 10 mg IN DAILY PRN constipation 07/27/22 (Dulcolax (bisacodyl)) #12 ea fluticasone propionate 50 1 spray intranasal DAILY #100 mL 07/27/22 mcg/actuation nasal spray,suspension (Flonase Allergy Relief) Magic Mouthwash 5 ml PO .Q.a.c. #240 mL 07/29/22 Diphen/Lido/Antacid 1:1:1 240 mL suspension lorazepam 1 mg tablet 1 mg PO TID PRN anxiety #10 tabs 07/29/22 lorazepam 1 mg tablet (Ativan) 1 mg PO BID PRN anxiety #14 tabs 08/20/22 aluminum-mag hydroxide-simethicone 5 ml PO 5XD PRN dyspepsia #355 mL 08/21/22 200 mg-200 mg-20 mg/5 mL oral susp (Maalox Advanced) dicyclomine 10 mg/5 mL oral 10 mg (5 mL) PO BID Abdominal pain 09/03/22 solution #473 mL lidocaine HCl 2 % mucosal solution 1 appl mucous membrane TID PRN 09/20/22 (Lidocaine Viscous) pain #100 mL simethicone 40 mg/0.6 mL oral 0.6 ml PO BID-TID PRN abdominal 09/20/22 drops,suspension distention #15 mL acetaminophen 160 mg/5 mL oral 960 mg (30 mL) PO Q6H PRN fever or 09/24/22 suspension (Children's Tylenol) pain #360 mL cephalexin 250 mg/5 mL oral 500 mg (10 mL) PO BID 7 days #140 09/24/22 suspension mL ondansetron 4 mg disintegrating 4 mg PO Q8H PRN nausea and 09/24/22 tablet vomiting #10 tabs cyclobenzaprine 5 mg tablet 5 mg PO BEDTIME PRN muscle spasm 10/06/22 15 days #45 tabs cholecalciferol (vitamin D3) 50 50 mcg PO DAILY #90 tabs 10/13/22 mcg (2,000 unit) tablet (Vitamin D3) dicyclomine 20 mg tablet 20 mg PO BID #60 tabs 10/13/22 iazhqkplkj-tyjcgzzdkhmci-sttsvoed 1 cap PO Q6H PRN headache #20 caps 10/18/22 50 mg-300 mg-40 mg capsule (Fioricet) tramadol 50 mg tablet 50 mg PO Q6H PRN pain 30 days #60 10/19/22 tabs Allergies Allergy/AdvReac Type Severity Reaction Status Date / Time tomato [TOMATO] Allergy Mild HIVES Verified 09/03/22 11:13 DIFFICULTY BREATHING hydrocodone [HYDROCODONE] Allergy Unknown RASH, Verified 09/03/22 11:13 AIRWAY CLOSES ibuprofen [From MOTRIN] Allergy Unknown STOMACH Verified 09/03/22 11:13 UPSET, vomiting trazodone [TRAZODONE] Allergy Unknown UNKNOWN, Verified 09/03/22 11:13 stomach upset black pepper [BLACK PEPPER] AdvReac Severe DIFFICULTY Verified 09/03/22 11:13 BREATHING, hives lisinopril AdvReac Severe Anaphylaxis Verified 09/03/22 11:13 Review of Systems Review of Systems Positive abdominal pain Yes all other systems are reviewed and are negative PMFSH Past Medical History Attestation statement: The following information was validated with the patient. 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 Diverticulosis GERD (gastroesophageal reflux disease) History of bipolar disorder History of schizophrenia Hypercholesterolemia Hypertension Insomnia Numbness of left hand Renal calculi Spondylosis of lumbar spine Type 2 diabetes mellitus with hyperglycemia Vitamin D deficiency Surgical History H/O: hysterectomy History of tubal ligation Hx of bariatric surgery Family History Family History Father Medical history unknown Mother Medical history unknown Paternal Aunt Uterine cancer Diabetes Hypertension Paternal Uncle Liver cancer Heart attack Maternal Aunt Stroke Family/Other Chronic mental illness Sister Uterine cancer Schizophrenia Brother Substance abuse Other Mental health disorder Social History Social History Household Members: None Housing: Apartment Do you presently have visiting nurse or other home services: Yes Alcohol intake: never Patient Tobacco Use Status: Never used Tobacco e-Cigarette/Vaping Use: Never Used Second Hand Smoke Exposure: No Advance Directives: No service: No Current occupational status: disabled Current occupational exposures/hazards: No Cognitive needs: No Hearing needs: No Vision needs: No Physical Exam ED Vital Signs: Vital Signs - 24 hr 10/23/22 03:27 10/23/22 04:42 Temperature 97 F Pulse Rate 91 Respiratory Rate 16 18 Blood Pressure 132/81 Pulse Oximetry 98 Oxygen Delivery Method Room Air BMI result Body Mass Index 19.0 Appearance: Alert. Oriented X3. No acute distress. Eyes: Pupils equal, round and reactive to light. ENT: Pharynx normal. Neck: Normal inspection. Neck supple. No lymph nodes noted. No crepitus CVS: Normal heart rate and rhythm. Pulses normal. Normal S1 and S2 Respiratory: No respiratory distress. Breath sounds normal. No Wheezing. No rales Abdomen: Soft and nontender. No rigidity. No distention. good BS x4 Skin: Skin warm and dry. Normal skin color. Normal skin turgor. Extremities: No lower extremity edema. Neurovascular intact to all extremities. No Lacerations. No Rash Neuro: Oriented X 3. No motor deficit. No sensory deficit. Moving all extermities. No slurred speech Medical Decision Making Lab Data 10/23/22 03:57 10/23/22 03:57 Labs: Lab Results 10/23/22 10/23/22 10/23/22 Range/Units 03:57 03:57 03:57 WBC 6.4 (4.8-10.8) X10*3/uL RBC 4.25 (4.20-5.50) X10*6/uL Hgb 11.4 L (12.0-16.0) g/dl Hct 35.6 L (37.0-47.0) % MCV 83.8 (80.0-98.0) fL MCH 26.8 L (27.0-33.0) pg MCHC 32.0 (31.0-35.0) g/dl RDW 20.7 H (11.0-16.0) % Plt Count 353 (160-400) X10*3/uL MPV 9.4 (9.4-12.3) fL Absolute Nucleated RBC 0.000 (0.0-0.012) X10*3/uL Nucleated RBC % (auto) 0.0 (0.0-0.2) /100WBC Sodium 140 (135-145) mmol/L Potassium 4.7 D (3.3-5.1) mmol/L Chloride 104 (96-108) mmol/L Carbon Dioxide 26 (22-29) mmol/L Anion Gap 15 (12-20) BUN 11 (9-16) mg/dL Creatinine 0.64 (0.5-1.4) mg/dL Estim Creat Clear Calc 85.3 Estimated GFR > 60 Random Glucose 94 (60-115) mg/dL Calcium 8.9 (8.4-10.2) mg/dL Total Bilirubin 0.2 (0.0-1.0) mg/dL AST 23 (5-31) U/L ALT 11 (0-31) U/L Alkaline Phosphatase 54 (39-117) U/L Total Protein 6.5 (6.5-8.0) g/dL Albumin 4.1 (3.5-5.0) g/dL Lipase 15 (8-78) U/L Beta HCG, Quant < 2 mIU/mL Ethyl Alcohol < 10 mg/dL Medications Administered Discontinued Medications Generic Name Dose Route Start Last Admin Trade Name Freq PRN Reason Stop Dose Admin Sodium Chloride 1,000 mls @ 999 mls/hr 10/23/22 04:00 10/23/22 04:50 Ns IV 10/23/22 05:00 999 mls/hr .Q1H1M OSBALDO Administration Iohexol 85 ml 10/23/22 04:59 10/23/22 05:00 Iohexol 350 Mg/Ml 100 Ml Infus..Btl IV 10/23/22 05:00 85 ml ONCE ONE Administration Morphine Sulfate 4 mg 10/23/22 03:54 03/27/23 04:42 Morphine Sulfate 4 Mg/Ml Cartridge IVPUSH 10/23/22 03:55 4 mg ONCE ONE Administration Protocol Ondansetron HCl 4 mg 10/23/22 03:54 10/23/22 04:42 Ondansetron Hcl 4 Mg/2 Ml Vial IVPUSH 10/23/22 03:55 4 mg ONCE ONE Administration Discharge Plan Discharge Clinical Impression: Abscess Prescriptions: No Action vitamin B complex [B Complex-Vitamin B12] Tablet 1 tab PO DAILY Qty: 30 6RF Rx Instructions: 1,000mcg dose daily (DME) blood pressure monitor [Blood Pressure Kit] Kit See Rx Instructions .Route Qty: 1 0RF Rx Instructions: As directed atorvastatin 20 mg tablet 20 mg PO DAILY Qty: 90 3RF (DME) CANE See Rx Instructions .Route .MEDSUPPLY Qty: 1 0RF Rx Instructions: As directed (DME) WRIST BRACE See Rx Instructions .Route .MEDSUPPLY Qty: 1 0RF Rx Instructions: As directed ([facility] [place]) BATH CHAIR See Rx Instructions .Route .MEDSUPPLY Qty: 1 0RF Rx Instructions: As directed ([facility] [place]) LIFELINE ALERT SYSTEM See Rx Instructions .Route .MEDSUPPLY Qty: 1 0RF Rx Instructions: As directed ([facility] [place]) ALCOHOL PADS See Rx Instructions .Route .MEDSUPPLY Qty: 100 3RF Rx Instructions: As directed lidocaine [Lidoderm] 5 % adhesive patch,medicated 1 patch topical DAILY 30 Days Qty: 30 3RF Rx Instructions: leave on most painful area for up to 12 hrs diphenhydramine HCl [Benadryl] 25 mg capsule 25 mg PO BEDTIME PRN (Reason: sleep) Qty: 90 2RF polyethylene glycol 3350 [Miralax] 17 gram powder in packet 17 g PO DAILY Qty: 30 5RF (DME) ROLLATOR See Rx Instructions .Route .MEDSUPPLY Qty: 1 0RF Rx Instructions: As directed Ensure High Protein Liquid 1 ea PO TID 30 Days Qty: 5688 0RF (DME) WRIST SPLINT Right and Left hand See Rx Instructions .Route .MEDSUPPLY Qty: 1 0RF Rx Instructions: As directed ([facility] [place]) SHOWER WAND See Rx Instructions .Route .MEDSUPPLY Qty: 1 0RF Rx Instructions: As directed (DME) SHOWER BAR See Rx Instructions .Route .MEDSUPPLY Qty: 1 0RF Rx Instructions: As directed (DME) ENSURE once a day See Rx Instructions .Route .MEDSUPPLY Qty: 90 0RF Rx Instructions: As directed acetaminophen [Children's Tylenol] 160 mg/5 mL suspension 500 mg PO QID PRN (Reason: pain, temp) 7 Days Qty: 120 0RF (DME) Bedside commode See Rx Instructions .Route .MEDSUPPLY Qty: 1 0RF Rx Instructions: As directed (DME) Bed pads See Rx Instructions .Route .MEDSUPPLY Qty: 100 12RF Rx Instructions: As directed (DME) SANITARY PADS See Rx Instructions .Route .MEDSUPPLY Qty: 100 12RF Rx Instructions: As directed ferrous sulfate 15 mg iron (75 mg)/mL syringe 15 mg PO DAILY Qty: 120 0RF ascorbate calcium (vitamin C) 814 mg/gram powder 407 mg PO DAILY Qty: 60 0RF alum-mag hydroxide-simeth [Maalox Advanced] 200-200-20 mg/5 mL suspension 5 ml PO 5XD PRN (Reason: dyspepsia) Qty: 355 0RF Rx Instructions: administer between meals and at bedtime simethicone 40 mg/0.6 mL drops,suspension 0.6 ml PO BID-TID PRN (Reason: abdominal distention) Qty: 15 0RF lidocaine HCl [Lidocaine Viscous] 2 % solution 1 appl mucous membrane TID PRN (Reason: pain) Qty: 100 0RF cyclobenzaprine 5 mg tablet 5 mg PO BEDTIME PRN (Reason: muscle spasm) 15 Days Qty: 45 0RF cholecalciferol (vitamin D3) [Vitamin D3] 50 mcg (2,000 unit) tablet 50 mcg PO DAILY Qty: 90 0RF dicyclomine 20 mg tablet 20 mg PO BID Qty: 60 2RF tramadol 50 mg tablet 50 mg PO Q6H PRN (Reason: pain) 30 Days Qty: 60 1RF venlafaxine 150 mg capsule,extended release 24hr 1 cap PO DAILY quetiapine 50 mg tablet 1 tab PO BID codeine-guaifenesin 10-100 mg/5 mL liquid 10 ml PO Q6H PRN (Reason: cough) Qty: 237 0RF terconazole 0.8 % cream 1 appful vaginal BEDTIME 3 Days Qty: 20 0RF oxycodone 5 mg tablet 5 mg PO Q6H PRN (Reason: pain) Qty: 14 0RF Rx Instructions: Partial Fill upon patient request. sucralfate [Carafate] 100 mg/mL suspension 10 ml PO BID Qty: 420 0RF ondansetron 4 mg tablet,disintegrating 4 mg PO Q8H PRN (Reason: nausea and vomiting) Qty: 10 0RF sucralfate 1 gram tablet 1 g PO TID Qty: 90 0RF Magic Mouthwash Diphen/Lido/Antacid 1:1:1 240 mL suspension 5 ml PO .Q.a.c. Qty: 240 1RF Rx Instructions: Lidocaine Viscous 2 % 80mL; diphenhydramine 12.5 mg/5 mL 80mL; aluminum-mag hydrox-simeth [id number]/5mL 80mL. 5-10 mL gargle and swallow up to 4 times a day lorazepam 1 mg tablet 1 mg PO TID PRN (Reason: anxiety) Qty: 10 0RF lorazepam [Ativan] 1 mg tablet 1 mg PO BID PRN (Reason: anxiety) Qty: 14 0RF dicyclomine 10 mg/5 mL solution 10 mg PO BID Qty: 473 0RF ondansetron 4 mg tablet,disintegrating 4 mg PO Q8H PRN (Reason: nausea and vomiting) Qty: 10 0RF acetaminophen [Children's Tylenol] 160 mg/5 mL suspension 960 mg PO Q6H PRN (Reason: fever or pain) Qty: 360 0RF cephalexin 250 mg/5 mL suspension for reconstitution 500 mg PO BID 7 Days Qty: 140 0RF [id number] [Fioricet] 50-300-40 mg capsule 1 cap PO Q6H PRN (Reason: headache) Qty: 20 0RF famotidine 40 mg tablet 1 tab PO BEDTIME hydroxyzine pamoate 50 mg capsule 1 cap PO BID PRN (Reason: Anxiety) acetaminophen 500 mg tablet 2 tab PO Q8H ondansetron 4 mg tablet,disintegrating 1 tab PO Q8H PRN (Reason: nausea) Linzess 290 mcg capsule 1 cap PO DAILY pantoprazole 40 mg tablet,delayed release (DR/EC) 40 mg PO DAILY@0630 zolpidem 10 mg tablet 10 mg PO BEDTIME PRN (Reason: Sleep) lactulose 10 gram/15 mL solution 10 g PO DAILY ziprasidone HCl 20 mg capsule 20 mg PO BID quetiapine 400 mg tablet 400 mg PO BEDTIME ursodiol 300 mg capsule 300 mg PO BID clonazepam 1 mg tablet 1 mg PO TID bisacodyl [Dulcolax (bisacodyl)] 10 mg suppository 10 mg IN DAILY PRN (Reason: constipation) Qty: 12 0RF fluticasone propionate [Flonase Allergy Relief] 50 mcg/actuation spray,suspension 1 spray intranasal DAILY Qty: 100 0RF Rx Instructions: administer into each nostril GlucaGen HypoKit 1 mg recon soln 1 mg IVPUSH ONCE PRN (Reason: hypoglycemia below 55) Qty: 1 0RF acarbose 25 mg tablet 25 mg PO TID Qty: 90 3RF (DME) blood-glucose meter [OneTouch Verio Meter] Misc See Rx Instructions .ROUTE Rx Instructions: As directed (DME) OneTouch Verio test strips Strip See Rx Instructions .ROUTE Rx Instructions: As directed 3 times a day (DME) lancets [OneTouch Delica Lancets] 33 gauge misc See Rx Instructions .ROUTE Rx Instructions: As directed 3 times a day tolterodine 4 mg capsule,extended release 24hr 4 mg PO DAILY
[2022-10-23 04:19] LABS: Hematocrit 35.6 % (37.0-47.0); Hemoglobin 11.4 g/dl (12.0-16.0); Mean Corpuscular Hemoglobin 26.8 pg (27.0-33.0); Mean Corpuscular Volume 83.8 fL (80.0-98.0); Mean Platelet Volume 9.4 fL (9.4-12.3); Platelet Count 353 X10*3/uL (160-400); Red Blood Count 4.25 X10*6/uL (4.20-5.50); Red Cell Distribution Width 20.7 % (11.0-16.0); White Blood Count 6.4 X10*3/uL (4.8-10.8)
[2022-10-23 04:34] LABS: Alanine Aminotransferase 11 U/L (0-31); Albumin Level 4.1 g/dL (3.5-5.0); Alkaline Phosphatase 54 U/L (39-117); Anion Gap 15 (12-20); Aspartate Amino Transferase 23 U/L (5-31); Bilirubin Total 0.2 mg/dL (0.0-1.0); Blood Urea Nitrogen 11 mg/dL (9-16); Calcium 8.9 mg/dL (8.4-10.2); Carbon Dioxide 26 mmol/L (22-29); Chloride 104 mmol/L (96-108); Creatinine Clr Calc Pharmacy 85.3; Estimated Glomerular Filt Rate > 60; Ethanol < 10 mg/dL; Glucose Random 94 mg/dL (60-115); Potassium 4.7 mmol/L (3.3-5.1); Sodium 140 mmol/L (135-145); Total Protein 6.5 g/dL (6.5-8.0)
[2022-10-23 04:38] LABS: Lipase 15 U/L (8-78)
[2022-10-23 04:42] VITALS: RESP 18
[2022-10-23 04:42] LABS: HCG Quantitative < 2 mIU/mL
[2022-10-23] MEDS: ondansetron HCL 4 MG/2 ML VIAL IVPUSH (04:42)
[2022-10-23] MEDS: Morphine Sulfate 4 MG/ML CARTRIDGE IVPUSH (04:42)
[2022-10-23] MEDS: 0.9 % Sodium Chloride 1,000 ML 999 ML IV (04:50)
[2022-10-23] MEDS: iohexoL 350 MG/ML 100 ML INFUS..BTL 85 ML IV (05:00)
[2022-10-23] MEDS: Magnesium Hydrox/Alum Hydrox 30 ML ORAL.SUSP PO (05:41)
[2022-10-23 05:47] VITALS: BP 128/88; PULSE 69; RESP 16; O2SAT 96
== END 2022-10-23 05:56 | disposition home or self-care (01) ==
PROVIDERS: Emergency Provider Emergency Medicine Emergency Medical Services
DX: L02.211 Cutaneous abscess of abdominal wall (principal); Z98.84 Bariatric surgery status; Z79.899 Other long term (current) drug therapy
CPT/HCPCS: 36415; 74177; 80053; 82077; 83690; 84702; 85027; 96361; 96374; 96375; 99284; J2270; J2405; Q9967

== ENCOUNTER 2022-10-24 11:12 | Outpatient (REF) | payer OTHER, SELFPAY | END 2022-10-24 11:13 | disposition home or self-care (01) | LOC: HO.MDS 11:12 | PROVIDERS: Visit Provider Internal Medicine | DX: D50.9 Iron deficiency anemia, unspecified (principal) | CPT/HCPCS: 96365; J1756 ==

== ENCOUNTER 2022-10-26 10:47 | Outpatient (REF) | payer OTHER, SELFPAY ==
--- NOTE | ~2022-10-26 | US_ITS ---
EXAMINATION: US PELVIS CLINICAL INFORMATION: Ovarian cyst; history of prior hysterectomy. COMPARISON: Pelvic ultrasound dated 06/08/2022. TECHNIQUE: Ultrasound of the pelvis is performed using both transabdominal and transvaginal transducers along with Doppler. Transvaginal imaging is performed due to inadequate visualization transabdominally. FINDINGS: Uterus: The uterus is surgically absent. Adnexa: Both ovaries are visualized. There is normal color flow to the adnexa. There is no ovarian torsion. There is no pelvic ascites or fluid collection. Right ovary measures 3.3 x 3.0 x 2.6 cm, volume 13.5 mL. The right ovary contains a 1.8 x 1.4 x 1.7 cm mildly complex cyst with some mildly echogenic contents. This is diminished from 06/14/2022, at which time measurements were 2.3 x 1.6 x 1.6 cm, suggesting a benign etiology. There is no associated color Doppler flow. Left ovary measures 2.5 x 1.3 x 1.4 cm, volume 2.4 mL. US/US pelvic and transvaginal IMPRESSION: 1. The uterus is surgically absent. 2. A diminished mildly complex 1.8 cm right ovarian cyst is seen, with mild echogenic internal contents. The possibility of a resolving hemorrhagic cyst is raised. This is a likely benign finding, for which no imaging follow-up is recommended.
== END 2022-10-26 10:48 | disposition home or self-care (01) ==
LOC: HO.US 10:47
PROVIDERS: Visit Provider Obstetrics & Gynecology
DX: N83.299 Other ovarian cyst, unspecified side (principal)
CPT/HCPCS: 76830; 76856

== ENCOUNTER 2022-10-31 11:09 | Outpatient (REF) | payer OTHER, SELFPAY | END 2022-10-31 11:10 | disposition home or self-care (01) | LOC: HO.MDS 11:09 | PROVIDERS: Visit Provider Internal Medicine | DX: D50.9 Iron deficiency anemia, unspecified (principal) | CPT/HCPCS: 96365; J1756 ==

== ENCOUNTER 2022-11-03 10:55 | Emergency (ER) | payer OTHER, SELFPAY ==
--- NOTE | ~2022-11-03 | XR_ITS ---
EXAMINATION: XR CHEST CLINICAL INFORMATION: Syncope COMPARISON: Previous chest x-ray September 2022 TECHNIQUE: 2 views of the chest were obtained. FINDINGS: No significant abnormality is noted involving the heart, lungs, mediastinum, bony thorax or soft tissues. XR/XR chest 2V IMPRESSION: Unremarkable examination.
--- NOTE | ~2022-11-03 | CT_ITS ---
EXAMINATION: CT HEAD WITHOUT CONTRAST CLINICAL INFORMATION: Syncope COMPARISON: Previous head CT most recent September 2022 TECHNIQUE: Contiguous axial imaging was performed from the skull base to vertex without intravenous administration of contrast. This CT examination was performed using dose optimization techniques as appropriate, variously including the following: *Automated exposure control *Adjustment of mA and/or kV according to patient size (this includes techniques or standardized protocols for targeted exams where dose is matched to indication/reason for exam; i.e. extremities or head) *Use of iterative reconstruction technique DLP: 536 mGy-cm FINDINGS: There is no evidence of an extra-axial collection. There is no evidence of intra or extra-axial hemorrhage. The ventricles and extra-axial CSF spaces are appropriate. Ruiz-white matter differentiation is normal. No mass, mass effect or infarct. Review of bone windows is normal. No skull fracture. Visualized paranasal sinuses, mastoid air cells and middle ears are clear. CT/CT head/brain wo IV con IMPRESSION: No acute intracranial pathology.
[2022-11-03 11:15] VITALS: BP 131/95; PULSE 74; RESP 14; TEMP 36.3; O2SAT 97; BMI 19.0
--- NOTE | 2022-11-03 11:15 | ED_ITS ---
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 She states she was home alone this morning around 10am when she was coming out of the bathroom and fell. She says she lost consciousness and guesses 25 minutes went by before she came to. She went to her neighbors house because she was scared. She had a headache and left arm pain, she felt weak. She states she did not eat breakfast but she checked her sugar and it was ok. She denies any associated chest pain, SOB, N/V or abdominal pain. She did have diarrhea last night and today. <NOEL Castaneda Last Filed: 11/03/22 15:08> MD complaint: syncopal event <NOEL Castaneda - Last Filed: 11/03/22 15:08> Onset (ago): hour(s) <NOEL Castaneda Last Filed: 11/03/22 15:08> Location: head, left and upper extremity <NOEL Castaneda Last Filed: 11/03/22 15:08> Radiation: non-radiation <NOEL Castaneda Last Filed: 11/03/22 15:08> Severity: moderate <NOEL Castaneda Last Filed: 11/03/22 15:08> Quality: aching <NOEL Castaneda Last Filed: 11/03/22 15:08> Pain Consistency: constant <NOEL Castaneda Last Filed: 11/03/22 15:08> Relieving factors: none <NOEL Castaneda Last Filed: 11/03/22 15:08> Exacerbating factors: none <NOEL Castaneda Last Filed: 11/03/22 15:08> Associated symptoms: confusion <NOEL Castaneda Last Filed: 11/03/22 15:08> Treatments prior to arrival: none <NOEL Castaneda Last Filed: 11/03/22 15:08> Related Data Home medications: Home Medications Medication Instructions Recorded Confirmed lactulose 10 gram/15 mL oral 10 g PO DAILY 08/27/20 07/27/22 solution zolpidem 10 mg tablet 10 mg PO BEDTIME PRN Sleep 08/27/20 07/27/22 quetiapine 50 mg tablet 1 tab PO BID 09/22/21 07/27/22 venlafaxine 150 mg 1 cap PO DAILY 09/22/21 07/27/22 capsule,extended release 24 hr clonazepam 1 mg tablet 1 mg PO TID 10/26/21 07/27/22 quetiapine 400 mg tablet 400 mg PO BEDTIME 10/26/21 07/27/22 ursodiol 300 mg capsule 300 mg PO BID 10/26/21 07/27/22 ziprasidone HCl 20 mg capsule 20 mg PO BID 10/26/21 07/27/22 acetaminophen 500 mg tablet 2 tab PO Q8H 02/11/22 07/27/22 famotidine 40 mg tablet 1 tab PO BEDTIME 02/11/22 07/27/22 hydroxyzine pamoate 50 mg capsule 1 cap PO BID PRN Anxiety 02/11/22 07/27/22 linaclotide 290 mcg capsule 1 cap PO DAILY 02/11/22 07/27/22 (Linzess) ondansetron 4 mg disintegrating 1 tab PO Q8H PRN nausea 02/11/22 07/27/22 tablet pantoprazole 40 mg tablet,delayed 40 mg PO DAILY@0630 02/11/22 07/27/22 release blood sugar diagnostic (OneTouch 08/15/22 Verio test strips) blood-glucose meter ([facility] 08/15/22 Verio Meter) lancets 33 gauge (OneTouch Delica 08/15/22 Lancets) tolterodine 4 mg capsule,extended 4 mg PO DAILY 08/15/22 release 24 hr Previous Rx's Medication Instructions Recorded vitamin B complex (B 1 tab PO DAILY #30 tabs 07/13/21 Complex-Vitamin B12 tablet) blood pressure monitor (Blood #1 ea 10/31/21 Pressure Kit) atorvastatin 20 mg tablet 20 mg PO DAILY #90 tabs 01/27/22 BATH CHAIR #1 ea 01/31/22 CANE #1 ea 01/31/22 LIFELINE ALERT SYSTEM #1 ea 01/31/22 WRIST BRACE #1 ea 01/31/22 ALCOHOL PADS #100 ea 02/21/22 glucagon 1 mg solution for 1 mg IVPUSH ONCE PRN hypoglycemia 03/09/22 injection (GlucaGen HypoKit) below 55 #1 ea lidocaine 5 % topical patch 1 patch topical DAILY 30 days #30 03/09/22 (Lidoderm) ea diphenhydramine HCl 25 mg capsule 25 mg PO BEDTIME PRN sleep #90 caps 03/10/22 (Benadryl) codeine 10 mg-guaifenesin 100 mg/5 10 ml PO Q6H PRN cough #237 mL 04/02/22 mL oral liquid acarbose 25 mg tablet 25 mg PO TID #90 tabs 04/13/22 oxycodone 5 mg tablet 5 mg PO Q6H PRN pain #14 tabs 04/25/22 terconazole 0.8 % vaginal cream 1 appful vaginal BEDTIME 04/25/22 Candidiasis vaginitis 3 days #20 grams sucralfate 100 mg/mL oral 10 ml PO BID #420 mL 05/17/22 suspension (Carafate) polyethylene glycol 3350 17 gram 17 g PO DAILY #30 ea 05/22/22 oral powder packet (Miralax) ROLLATOR #1 ea 05/23/22 food supplemt, lactose-reduced 1 ea PO TID 30 days #5,688 mL 05/23/22 (Ensure High Protein oral liquid) WRIST SPLINT Right and Left hand #1 ea 05/30/22 ENSURE once a day #90 ea 06/08/22 SHOWER BAR #1 ea 06/08/22 SHOWER WAND #1 ea 06/08/22 ondansetron 4 mg disintegrating 4 mg PO Q8H PRN nausea and 06/10/22 tablet vomiting #10 tabs acetaminophen 160 mg/5 mL oral 500 mg (15.625 mL) PO QID PRN 06/26/22 suspension (Children's Tylenol) pain, temp 7 days #120 mL sucralfate 1 gram tablet 1 g PO TID #90 tabs 07/06/22 Bed pads #100 ea 07/17/22 Bedside commode #1 ea 07/17/22 SANITARY PADS #100 ea 07/17/22 ascorbate calcium (vitamin C) 814 407 mg PO DAILY #60 grams 07/25/22 mg/gram oral powder ferrous sulfate 15 mg iron (75 15 mg PO DAILY #120 mL 07/25/22 mg)/mL oral syringe (ORAL USE) bisacodyl 10 mg rectal suppository 10 mg NC DAILY PRN constipation 07/27/22 (Dulcolax (bisacodyl)) #12 ea fluticasone propionate 50 1 spray intranasal DAILY #100 mL 07/27/22 mcg/actuation nasal spray,suspension (Flonase Allergy Relief) Magic Mouthwash 5 ml PO .Q.a.c. #240 mL 07/29/22 Diphen/Lido/Antacid 1:1:1 240 mL suspension lorazepam 1 mg tablet 1 mg PO TID PRN anxiety #10 tabs 07/29/22 lorazepam 1 mg tablet (Ativan) 1 mg PO BID PRN anxiety #14 tabs 08/20/22 aluminum-mag hydroxide-simethicone 5 ml PO 5XD PRN dyspepsia #355 mL 08/21/22 200 mg-200 mg-20 mg/5 mL oral susp (Maalox Advanced) dicyclomine 10 mg/5 mL oral 10 mg (5 mL) PO BID Abdominal pain 09/03/22 solution #473 mL lidocaine HCl 2 % mucosal solution 1 appl mucous membrane TID PRN 09/20/22 (Lidocaine Viscous) pain #100 mL simethicone 40 mg/0.6 mL oral 0.6 ml PO BID-TID PRN abdominal 09/20/22 drops,suspension distention #15 mL acetaminophen 160 mg/5 mL oral 960 mg (30 mL) PO Q6H PRN fever or 09/24/22 suspension (Children's Tylenol) pain #360 mL cephalexin 250 mg/5 mL oral 500 mg (10 mL) PO BID 7 days #140 09/24/22 suspension mL ondansetron 4 mg disintegrating 4 mg PO Q8H PRN nausea and 09/24/22 tablet vomiting #10 tabs cyclobenzaprine 5 mg tablet 5 mg PO BEDTIME PRN muscle spasm 10/06/22 15 days #45 tabs cholecalciferol (vitamin D3) 50 50 mcg PO DAILY #90 tabs 10/13/22 mcg (2,000 unit) tablet (Vitamin D3) dicyclomine 20 mg tablet 20 mg PO BID #60 tabs 10/13/22 gaxdtrebnn-uaoimfqeozvaj-fsezqdmc 1 cap PO Q6H PRN headache #20 caps 10/18/22 50 mg-300 mg-40 mg capsule (Fioricet) tramadol 50 mg tablet 50 mg PO Q6H PRN pain 30 days #60 10/19/22 tabs pantoprazole 40 mg tablet,delayed 40 mg PO DAILY #14 tabs 10/23/22 release (Protonix) <NOEL Huang - Last Filed: 11/03/22 12:51> Allergies/adverse reactions: Allergies Allergy/AdvReac Type Severity Reaction Status Date / Time tomato [TOMATO] Allergy Mild HIVES Verified 09/03/22 11:13 DIFFICULTY BREATHING hydrocodone [HYDROCODONE] Allergy Unknown RASH, Verified 09/03/22 11:13 AIRWAY CLOSES ibuprofen [From MOTRIN] Allergy Unknown STOMACH Verified 09/03/22 11:13 UPSET, vomiting trazodone [TRAZODONE] Allergy Unknown UNKNOWN, Verified 09/03/22 11:13 stomach upset black pepper [BLACK PEPPER] AdvReac Severe DIFFICULTY Verified 09/03/22 11:13 BREATHING, hives lisinopril AdvReac Severe Anaphylaxis Verified 09/03/22 11:13 <NOEL Huang - Last Filed: 11/03/22 12:51> Review of Systems Review of Systems: Yes all other systems are reviewed and are negative <NOEL Castaneda - Last Filed: 11/03/22 15:08> [facility] Past Medical History Medical History: 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 Diverticulosis GERD (gastroesophageal reflux disease) History of bipolar disorder History of schizophrenia Hypercholesterolemia Hypertension Insomnia Numbness of left hand Renal calculi Spondylosis of lumbar spine Type 2 diabetes mellitus with hyperglycemia Vitamin D deficiency <NOEL Huang - Last Filed: 11/03/22 12:51> Surgical History: Surgical History H/O: hysterectomy History of tubal ligation Hx of bariatric surgery <NOLE Huang - Last Filed: 11/03/22 12:51> Family History Family History: Family History Father Medical history unknown Mother Medical history unknown Paternal Aunt Uterine cancer Diabetes Hypertension Paternal Uncle Liver cancer Heart attack Maternal Aunt Stroke Family/Other Chronic mental illness Sister Uterine cancer Schizophrenia Brother Substance abuse Other Mental health disorder <NOEL Huang - Last Filed: 11/03/22 12:51> Social History Social History: Social History Household Members: None Housing: Apartment Do you presently have visiting nurse or other home services: Yes Alcohol intake: current Alcohol intake frequency: holidays/special occasions only Alcohol type: beer Patient Tobacco Use Status: Never used Tobacco e-Cigarette/Vaping Use: Never Used Second Hand Smoke Exposure: No Advance Directives: No Advance Directives Information Provided: Yes service: No Current occupational status: disabled Current occupational exposures/hazards: No Cognitive needs: No Hearing needs: No Vision needs: No <NOEL Huang - Last Filed: 11/03/22 12:51> Physical Exam ED Vital Signs: Vital Signs - 24 hr 11/03/22 11:15 11/03/22 13:10 11/03/22 13:12 Temperature 97.4 F Pulse Rate 74 66 71 Respiratory Rate 14 Blood Pressure 131/95 H 127/79 140/106 H Pulse Oximetry 97 Oxygen Delivery Method Room Air 11/03/22 13:13 Temperature Pulse Rate 71 Respiratory Rate Blood Pressure 143/94 H Pulse Oximetry Oxygen Delivery Method BMI result Body Mass Index 19.0 <NOEL Huang Last Filed: 11/03/22 12:51> Vital Signs - 24 hr 11/03/22 11:15 11/03/22 13:10 11/03/22 13:12 Temperature 97.4 F Pulse Rate 74 66 71 Respiratory Rate 14 Blood Pressure 131/95 H 127/79 140/106 H Pulse Oximetry 97 Oxygen Delivery Method Room Air 11/03/22 13:13 Temperature Pulse Rate 71 Respiratory Rate Blood Pressure 143/94 H Pulse Oximetry Oxygen Delivery Method BMI result Body Mass Index 19.0 <NOEL Castaneda Last Filed: 11/03/22 15:08> Appearance: Alert. Oriented X3. No acute distress. Head: normocephalic, atraumatic. mild tenderness of the occiput, no palpable hematoma Eyes: Pupils equal, round and reactive to light. ENT: Pharynx normal. No tonsillar swelling or exudate. Neck: Normal inspection. Neck supple. CVS: Normal heart rate and rhythm. Pulses normal. Respiratory: No respiratory distress. Breath sounds normal. Abdomen: Soft and nontender. +BS x4 Skin: Skin warm and dry. Normal skin color. Normal skin turgor. No rashes. Extremities: No lower extremity edema. No joint swelling. Neuro/psych: Oriented X 3. No motor deficit. No sensory deficit. CN II-XII intact. Normal speech and cognition. No pronator drift. Steady gait. Strength is equal and symmetrical throughout. <NOEL Castaneda Last Filed: 11/03/22 15:08> Course Course Course Narrative: RME performed by Lolly Thacker PA-C. Patient is a 42 year old assigned female at presenting to the emergency department after a syncopal episode. Patient states that she passed out and was on the ground for 25 minutes before coming to. Labs, imaging, and swab ordered. Patient placed back in the waiting room pending room availability and results. <NOEL Huang Last Filed: 11/03/22 12:51> Medical Decision Making Medical Decision Making MDM Narrative: 42 yo year old female with multiple 100 presents to the ER for evaluation was unwitnessed syncopal episode at home. <NOEL Castaneda Last Filed: 11/03/22 15:08> Differential Diagnosis Differential Diagnoses: The differential diagnosis associated with the presentation includes <NOEL Kim - Last Filed: 11/03/22 15:08> orthostatic hypotension, vasovagal syncope, hypoglycemia, dehydration, electrolyte abnormalities, anemia, head trauma <NOEL Castaneda - Last Filed: 11/03/22 15:08> Lab Data MDM Lab Attestation statement: I reviewed the patient's lab results. <NOEL Castaneda - Last Filed: 11/03/22 15:08> stable anemia, negative troponin <NOEL Castaneda - Last Filed: 11/03/22 15:08> Result Diagrams: 11/03/22 11:50 11/03/22 11:50 <NOEL Huang - Last Filed: 11/03/22 12:51> Labs: Lab Results 11/03/22 11/03/22 11/03/22 Range/Units 11:45 11:45 11:50 WBC (4.8-10.8) X10*3/uL RBC (4.20-5.50) X10*6/uL Hgb (12.0-16.0) g/dl Hct (37.0-47.0) % MCV (80.0-98.0) fL MCH (27.0-33.0) pg MCHC (31.0-35.0) g/dl RDW (11.0-16.0) % Plt Count (160-400) X10*3/uL MPV (9.4-12.3) fL Immature Gran % (Auto) (0.0-0.4) % Neut % (Auto) (45-73) % Lymph % (Auto) (20-40) % [place] % (Auto) (2-11) % Eos % (Auto) (0-4) % Baso % (Auto) (0-2) % Lymph # (Auto) (1.2-4.9) X10*3/uL [place] # (Auto) (0.1-1.2) X10*3/uL Eos # (Auto) (0.0-0.4) X10*3/uL Baso # (Auto) (0.0-0.2) X10*3/uL Abs Immat Gran (auto) (0.00-0.03) X10*3/uL Absolute Neuts (auto) (2.0-8.3) x10*3/uL Absolute Nucleated RBC (0.0-0.012) X10*3/uL Nucleated RBC % (auto) (0.0-0.2) /100WBC Sodium 143 (135-145) mmol/L Potassium 4.7 (3.3-5.1) mmol/L Chloride 105 (96-108) mmol/L Carbon Dioxide 30 H (22-29) mmol/L Anion Gap 13 (12-20) BUN 15 (9-16) mg/dL Creatinine 0.64 (0.5-1.4) mg/dL Estim Creat Clear Calc 85.3 Estimated GFR > 60 Random Glucose 90 (60-115) mg/dL Calcium 9.3 (8.4-10.2) mg/dL Magnesium 1.9 (1.6-2.6) mg/dL Total Bilirubin 0.4 (0.0-1.0) mg/dL AST 15 (5-31) U/L ALT 8 (0-31) U/L Alkaline Phosphatase 51 (39-117) U/L Troponin I High Sens (<3.5-17.0) ng/L Total Protein 6.8 (6.5-8.0) g/dL Albumin 4.5 (3.5-5.0) g/dL Urine Color Yellow Urine Appearance Cloudy Urine pH 7.5 (5.0-9.0) Ur Specific [place] 1.025 (1.005-1.025) Urine Protein 30 (1+) H (Neg-Trace) mg/dL Urine Glucose (UA) Negative (Negative) mg/dL Urine Ketones Negative (Negative) mg/dL Urine Blood Negative (Negative) Urine Nitrite Negative (Negative) Ur Leukocyte Esterase Trace H (Negative) Urine RBC 0-2 (0-2) /HPF Urine WBC 0-5 (0-5) /HPF Ur Squamous Epith Cells 3-5 (0-2) /HPF Urine Bacteria 1+ (None Seen) Hyaline Casts 0-2 (0-2) /LPF Influenza Type A (PCR) NEGATIVE (Negative) Influenza Type B (PCR) NEGATIVE (Negative) RSV RNA Qual (PCR) NEGATIVE (Negative) SARS-CoV-2 RNA (RT-PCR) NEGATIVE (Negative) 11/03/22 11/03/22 Range/Units 11:50 12:40 WBC 5.9 (4.8-10.8) X10*3/uL RBC 4.11 L (4.20-5.50) X10*6/uL Hgb 11.4 L (12.0-16.0) g/dl Hct 35.4 L (37.0-47.0) % MCV 86.1 (80.0-98.0) fL MCH 27.7 (27.0-33.0) pg MCHC 32.2 (31.0-35.0) g/dl RDW 19.7 H (11.0-16.0) % Plt Count 323 (160-400) X10*3/uL MPV 9.7 (9.4-12.3) fL Immature Gran % (Auto) 0.3 (0.0-0.4) % Neut % (Auto) 65.8 (45-73) % Lymph % (Auto) 24.5 (20-40) % [place] % (Auto) 7.4 (2-11) % Eos % (Auto) 1.0 (0-4) % Baso % (Auto) 1.0 (0-2) % Lymph # (Auto) 1.5 (1.2-4.9) X10*3/uL [place] # (Auto) 0.4 (0.1-1.2) X10*3/uL Eos # (Auto) 0.1 (0.0-0.4) X10*3/uL Baso # (Auto) 0.1 (0.0-0.2) X10*3/uL Abs Immat Gran (auto) 0.02 (0.00-0.03) X10*3/uL Absolute Neuts (auto) 3.9 (2.0-8.3) x10*3/uL Absolute Nucleated RBC 0.000 (0.0-0.012) X10*3/uL Nucleated RBC % (auto) 0.0 (0.0-0.2) /100WBC Sodium (135-145) mmol/L Potassium (3.3-5.1) mmol/L Chloride (96-108) mmol/L Carbon Dioxide (22-29) mmol/L Anion Gap (12-20) BUN (9-16) mg/dL Creatinine (0.5-1.4) mg/dL Estim Creat Clear Calc Estimated GFR Random Glucose (60-115) mg/dL Calcium (8.4-10.2) mg/dL Magnesium (1.6-2.6) mg/dL Total Bilirubin (0.0-1.0) mg/dL AST (5-31) U/L ALT (0-31) U/L Alkaline Phosphatase (39-117) U/L Troponin I High Sens < 2.7 (<3.5-17.0) ng/L Total Protein (6.5-8.0) g/dL Albumin (3.5-5.0) g/dL Urine Color Urine Appearance Urine pH (5.0-9.0) Ur Specific [place] (1.005-1.025) Urine Protein (Neg-Trace) mg/dL Urine Glucose (UA) (Negative) mg/dL Urine Ketones (Negative) mg/dL Urine Blood (Negative) Urine Nitrite (Negative) Ur Leukocyte Esterase (Negative) Urine RBC (0-2) /HPF Urine WBC (0-5) /HPF Ur Squamous Epith Cells (0-2) /HPF Urine Bacteria (None Seen) Hyaline Casts (0-2) /LPF Influenza Type A (PCR) (Negative) Influenza Type B (PCR) (Negative) RSV RNA Qual (PCR) (Negative) SARS-CoV-2 RNA (RT-PCR) (Negative) <NOEL Huang - Last Filed: 11/03/22 12:51> Lab Results 11/03/22 11/03/22 11/03/22 Range/Units 11:45 11:45 11:50 WBC (4.8-10.8) X10*3/uL RBC (4.20-5.50) X10*6/uL Hgb (12.0-16.0) g/dl Hct (37.0-47.0) % MCV (80.0-98.0) fL MCH (27.0-33.0) pg MCHC (31.0-35.0) g/dl RDW (11.0-16.0) % Plt Count (160-400) X10*3/uL MPV (9.4-12.3) fL Immature Gran % (Auto) (0.0-0.4) % Neut % (Auto) (45-73) % Lymph % (Auto) (20-40) % [place] % (Auto) (2-11) % Eos % (Auto) (0-4) % Baso % (Auto) (0-2) % Lymph # (Auto) (1.2-4.9) X10*3/uL [place] # (Auto) (0.1-1.2) X10*3/uL Eos # (Auto) (0.0-0.4) X10*3/uL Baso # (Auto) (0.0-0.2) X10*3/uL Abs Immat Gran (auto) (0.00-0.03) X10*3/uL Absolute Neuts (auto) (2.0-8.3) x10*3/uL Absolute Nucleated RBC (0.0-0.012) X10*3/uL Nucleated RBC % (auto) (0.0-0.2) /100WBC Sodium 143 (135-145) mmol/L Potassium 4.7 (3.3-5.1) mmol/L Chloride 105 (96-108) mmol/L Carbon Dioxide 30 H (22-29) mmol/L Anion Gap 13 (12-20) BUN 15 (9-16) mg/dL Creatinine 0.64 (0.5-1.4) mg/dL Estim Creat Clear Calc 85.3 Estimated GFR > 60 Random Glucose 90 (60-115) mg/dL Calcium 9.3 (8.4-10.2) mg/dL Magnesium 1.9 (1.6-2.6) mg/dL Total Bilirubin 0.4 (0.0-1.0) mg/dL AST 15 (5-31) U/L ALT 8 (0-31) U/L Alkaline Phosphatase 51 (39-117) U/L Troponin I High Sens (<3.5-17.0) ng/L Total Protein 6.8 (6.5-8.0) g/dL Albumin 4.5 (3.5-5.0) g/dL Urine Color Yellow Urine Appearance Cloudy Urine pH 7.5 (5.0-9.0) Ur Specific [place] 1.025 (1.005-1.025) Urine Protein 30 (1+) H (Neg-Trace) mg/dL Urine Glucose (UA) Negative (Negative) mg/dL Urine Ketones Negative (Negative) mg/dL Urine Blood Negative (Negative) Urine Nitrite Negative (Negative) Ur Leukocyte Esterase Trace H (Negative) Urine RBC 0-2 (0-2) /HPF Urine WBC 0-5 (0-5) /HPF Ur Squamous Epith Cells 3-5 (0-2) /HPF Urine Bacteria 1+ (None Seen) Hyaline Casts 0-2 (0-2) /LPF Influenza Type A (PCR) NEGATIVE (Negative) Influenza Type B (PCR) NEGATIVE (Negative) RSV RNA Qual (PCR) NEGATIVE (Negative) SARS-CoV-2 RNA (RT-PCR) NEGATIVE (Negative) 11/03/22 11/03/22 Range/Units 11:50 12:40 WBC 5.9 (4.8-10.8) X10*3/uL RBC 4.11 L (4.20-5.50) X10*6/uL Hgb 11.4 L (12.0-16.0) g/dl Hct 35.4 L (37.0-47.0) % MCV 86.1 (80.0-98.0) fL MCH 27.7 (27.0-33.0) pg MCHC 32.2 (31.0-35.0) g/dl RDW 19.7 H (11.0-16.0) % Plt Count 323 (160-400) X10*3/uL MPV 9.7 (9.4-12.3) fL Immature Gran % (Auto) 0.3 (0.0-0.4) % Neut % (Auto) 65.8 (45-73) % Lymph % (Auto) 24.5 (20-40) % [place] % (Auto) 7.4 (2-11) % Eos % (Auto) 1.0 (0-4) % Baso % (Auto) 1.0 (0-2) % Lymph # (Auto) 1.5 (1.2-4.9) X10*3/uL [place] # (Auto) 0.4 (0.1-1.2) X10*3/uL Eos # (Auto) 0.1 (0.0-0.4) X10*3/uL Baso # (Auto) 0.1 (0.0-0.2) X10*3/uL Abs Immat Gran (auto) 0.02 (0.00-0.03) X10*3/uL Absolute Neuts (auto) 3.9 (2.0-8.3) x10*3/uL Absolute Nucleated RBC 0.000 (0.0-0.012) X10*3/uL Nucleated RBC % (auto) 0.0 (0.0-0.2) /100WBC Sodium (135-145) mmol/L Potassium (3.3-5.1) mmol/L Chloride (96-108) mmol/L Carbon Dioxide (22-29) mmol/L Anion Gap (12-20) BUN (9-16) mg/dL Creatinine (0.5-1.4) mg/dL Estim Creat Clear Calc Estimated GFR Random Glucose (60-115) mg/dL Calcium (8.4-10.2) mg/dL Magnesium (1.6-2.6) mg/dL Total Bilirubin (0.0-1.0) mg/dL AST (5-31) U/L ALT (0-31) U/L Alkaline Phosphatase (39-117) U/L Troponin I High Sens < 2.7 (<3.5-17.0) ng/L Total Protein (6.5-8.0) g/dL Albumin (3.5-5.0) g/dL Urine Color Urine Appearance Urine pH (5.0-9.0) Ur Specific [place] (1.005-1.025) Urine Protein (Neg-Trace) mg/dL Urine Glucose (UA) (Negative) mg/dL Urine Ketones (Negative) mg/dL Urine Blood (Negative) Urine Nitrite (Negative) Ur Leukocyte Esterase (Negative) Urine RBC (0-2) /HPF Urine WBC (0-5) /HPF Ur Squamous Epith Cells (0-2) /HPF Urine Bacteria (None Seen) Hyaline Casts (0-2) /LPF Influenza Type A (PCR) (Negative) Influenza Type B (PCR) (Negative) RSV RNA Qual (PCR) (Negative) SARS-CoV-2 RNA (RT-PCR) (Negative) <NOEL Castaneda - Last Filed: 11/03/22 15:08> Independent Interpretation I performed an independent interpretation of an: EKG, Plain X-Ray and CT Scan <NOEL Castaneda Last Filed: 11/03/22 15:08> Interpretation: EKG with normal sinus rhythm, ventricular rate 67 beats per minute, normal NC interval, normal QTC, no change from prior last month Chest x-ray is clear. No pneumonia. CT head is normal, no bleed or stroke noted <NOEL Castaneda - Last Filed: 11/03/22 15:08> Radiology Impression Discussion of test interpretation with radiology: I have reviewed the radiologist's reading. <NOEL Castaneda Last Filed: 11/03/22 15:08> Radiologist Impression: CT/CT head/brain wo IV con IMPRESSION: No acute intracranial pathology. XR/XR chest 2V IMPRESSION: Unremarkable examination. <NOEL Castaneda Last Filed: 11/03/22 15:08> Independent Historian Clinical information obtained from an independent historian. History obtained from or confirmed by: Friend <NOEL Castaneda - Last Filed: 11/03/22 15:08> External Record Review External record reviewed: Office record, Outpatient record, Prior outpatient labs and Prior outpatient radiology <NOEL Castaneda Last Filed: 11/03/22 15:08> Chronic Conditions Patient?s care impacted by: Hypertension <NOEL Castaneda Last Filed: 11/03/22 15:08> Critical Care Time Critical Care Time Critical Care Time: No <NOEL Castaneda Last Filed: 11/03/22 15:08> Discharge Plan Discharge Clinical Impression: Syncope and collapse <NOEL Huang Last Filed: 11/03/22 12:51> Patient Disposition: Home, Self-Care <NOEL Huang Last Filed: 11/03/22 12:51> Instructions: Syncope (DC) <NOEL Huang Last Filed: 11/03/22 12:51> Additional Instructions: Your CT scan today was normal. Your lab work was normal. Your x-ray was normal. Your vital signs were normal. Recommend having a small breakfast each day to make sure your glucose is stable. Make sure you are drinking plenty of fluids so you do not get dehydrated. Follow-up with your GI doctor and your primary care doctor. If you develop new or worsening symptoms call 911 or come back to the ER for further evaluation. Koehler tomograf?a computarizada de hoy fue normal. Koehler trabajo de laboratorio fue normal. Koehler radiograf?a fue normal. Carmencita signos vitales mohan normales. Recomiende avril un mark?o desayuno todos los d?as para asegurarse de que koehler glucosa sea estable. Aseg?rese de beber muchos l?quidos para no deshidratarse. Seguimiento con koelher m?dico GI y koehler m?dico de atenci?n primaria. Si desarrolla s?ntomas nuevos o que empeoran, llame al 911 o regrese a la rick de emergencias para dylan evaluaci?n adicional. <NOEL Huang - Last Filed: 11/03/22 12:51> Prescriptions: No Action vitamin B complex [B Complex-Vitamin B12] Tablet 1 tab PO DAILY Qty: 30 6RF Rx Instructions: 1,000mcg dose daily (DME) blood pressure monitor [Blood Pressure Kit] Kit See Rx Instructions .Route Qty: 1 0RF Rx Instructions: As directed atorvastatin 20 mg tablet 20 mg PO DAILY Qty: 90 3RF (DME) CANE See Rx Instructions .Route .MEDSUPPLY Qty: 1 0RF Rx Instructions: As directed (DME) WRIST BRACE See Rx Instructions .Route .MEDSUPPLY Qty: 1 0RF Rx Instructions: As directed (DME) BATH CHAIR See Rx Instructions .Route .MEDSUPPLY Qty: 1 0RF Rx Instructions: As directed (DME) LIFELINE ALERT SYSTEM See Rx Instructions .Route .MEDSUPPLY Qty: 1 0RF Rx Instructions: As directed (DME) ALCOHOL PADS See Rx Instructions .Route .MEDSUPPLY Qty: 100 3RF Rx Instructions: As directed lidocaine [Lidoderm] 5 % adhesive patch,medicated 1 patch topical DAILY 30 Days Qty: 30 3RF Rx Instructions: leave on most painful area for up to 12 hrs diphenhydramine HCl [Benadryl] 25 mg capsule 25 mg PO BEDTIME PRN (Reason: sleep) Qty: 90 2RF polyethylene glycol 3350 [Miralax] 17 gram powder in packet 17 g PO DAILY Qty: 30 5RF (DME) ROLLATOR See Rx Instructions .Route .MEDSUPPLY Qty: 1 0RF Rx Instructions: As directed Ensure High Protein Liquid 1 ea PO TID 30 Days Qty: 5688 0RF (DME) WRIST SPLINT Right and Left hand See Rx Instructions .Route .MEDSUPPLY Qty: 1 0RF Rx Instructions: As directed (DME) SHOWER WAND See Rx Instructions .Route .MEDSUPPLY Qty: 1 0RF Rx Instructions: [place] directed [place] [place] See Rx Instructions .Route .MEDSUPPLY Qty: 1 0RF Rx Instructions: As directed (DME) ENSURE once a day See Rx Instructions .Route .MEDSUPPLY Qty: 90 0RF Rx Instructions: As directed acetaminophen [Children's Tylenol] 160 mg/5 mL suspension 500 mg PO QID PRN (Reason: pain, temp) 7 Days Qty: 120 0RF (DME) Bedside commode See Rx Instructions .Route .MEDSUPPLY Qty: 1 0RF Rx Instructions: As directed (DME) Bed pads See Rx Instructions .Route .MEDSUPPLY Qty: 100 12RF Rx Instructions: As directed (DME) SANITARY PADS See Rx Instructions .Route .MEDSUPPLY Qty: 100 12RF Rx Instructions: As directed ferrous sulfate 15 mg iron (75 mg)/mL syringe 15 mg PO DAILY Qty: 120 0RF ascorbate calcium (vitamin C) 814 mg/gram powder 407 mg PO DAILY Qty: 60 0RF alum-mag hydroxide-simeth [Maalox Advanced] 200-200-20 mg/5 mL suspension 5 ml PO 5XD PRN (Reason: dyspepsia) Qty: 355 0RF Rx Instructions: administer between meals and at bedtime simethicone 40 mg/0.6 mL drops,suspension 0.6 ml PO BID-TID PRN (Reason: abdominal distention) Qty: 15 0RF lidocaine HCl [Lidocaine Viscous] 2 % solution 1 appl mucous membrane TID PRN (Reason: pain) Qty: 100 0RF cyclobenzaprine 5 mg tablet 5 mg PO BEDTIME PRN (Reason: muscle spasm) 15 Days Qty: 45 0RF cholecalciferol (vitamin D3) [Vitamin D3] 50 mcg (2,000 unit) tablet 50 mcg PO DAILY Qty: 90 0RF dicyclomine 20 mg tablet 20 mg PO BID Qty: 60 2RF tramadol 50 mg tablet 50 mg PO Q6H PRN (Reason: pain) 30 Days Qty: 60 1RF venlafaxine 150 mg capsule,extended release 24hr 1 cap PO DAILY quetiapine 50 mg tablet 1 tab PO BID codeine-guaifenesin 10-100 mg/5 mL liquid 10 ml PO Q6H PRN (Reason: cough) Qty: 237 0RF terconazole 0.8 % cream 1 appful vaginal BEDTIME 3 Days Qty: 20 0RF oxycodone 5 mg tablet 5 mg PO Q6H PRN (Reason: pain) Qty: 14 0RF Rx Instructions: Partial Fill upon patient request. sucralfate [Carafate] 100 mg/mL suspension 10 ml PO BID Qty: 420 0RF ondansetron 4 mg tablet,disintegrating 4 mg PO Q8H PRN (Reason: nausea and vomiting) Qty: 10 0RF sucralfate 1 gram tablet 1 g PO TID Qty: 90 0RF Magic Mouthwash Diphen/Lido/Antacid 1:1:1 240 mL suspension 5 ml PO .Q.a.c. Qty: 240 1RF Rx Instructions: Lidocaine Viscous 2 % 80mL; diphenhydramine 12.5 mg/5 mL 80mL; aluminum-mag hydrox-simeth 280hs-[id number]-45uo/5mL 80mL. 5-10 mL gargle and swallow up to 4 times a day lorazepam 1 mg tablet 1 mg PO TID PRN (Reason: anxiety) Qty: 10 0RF lorazepam [Ativan] 1 mg tablet 1 mg PO BID PRN (Reason: anxiety) Qty: 14 0RF dicyclomine 10 mg/5 mL solution 10 mg PO BID Qty: 473 0RF ondansetron 4 mg tablet,disintegrating 4 mg PO Q8H PRN (Reason: nausea and vomiting) Qty: 10 0RF acetaminophen [Children's Tylenol] 160 mg/5 mL suspension 960 mg PO Q6H PRN (Reason: fever or pain) Qty: 360 0RF cephalexin 250 mg/5 mL suspension for reconstitution 500 mg PO BID 7 Days Qty: 140 0RF [id number] [Fioricet] 50-300-40 mg capsule 1 cap PO Q6H PRN (Reason: headache) Qty: 20 0RF famotidine 40 mg tablet 1 tab PO BEDTIME hydroxyzine pamoate 50 mg capsule 1 cap PO BID PRN (Reason: Anxiety) acetaminophen 500 mg tablet 2 tab PO Q8H ondansetron 4 mg tablet,disintegrating 1 tab PO Q8H PRN (Reason: nausea) Linzess 290 mcg capsule 1 cap PO DAILY pantoprazole 40 mg tablet,delayed release (DR/EC) 40 mg PO DAILY@0630 pantoprazole [Protonix] 40 mg tablet,delayed release (DR/EC) 40 mg PO DAILY Qty: 14 0RF zolpidem 10 mg tablet 10 mg PO BEDTIME PRN (Reason: Sleep) lactulose 10 gram/15 mL solution 10 g PO DAILY ziprasidone HCl 20 mg capsule 20 mg PO BID quetiapine 400 mg tablet 400 mg PO BEDTIME ursodiol 300 mg capsule 300 mg PO BID clonazepam 1 mg tablet 1 mg PO TID bisacodyl [Dulcolax (bisacodyl)] 10 mg suppository 10 mg NC DAILY PRN (Reason: constipation) Qty: 12 0RF fluticasone propionate [Flonase Allergy Relief] 50 mcg/actuation spray,suspension 1 spray intranasal DAILY Qty: 100 0RF Rx Instructions: administer into each nostril GlucaGen HypoKit 1 mg recon soln 1 mg IVPUSH ONCE PRN (Reason: hypoglycemia below 55) Qty: 1 0RF acarbose 25 mg tablet 25 mg PO TID Qty: 90 3RF (DME) blood-glucose meter [OneTouch Verio Meter] [facility] [place] Rx Instructions .ROUTE Rx Instructions: As directed (DME) OneTouch Verio test strips Strip See Rx Instructions .ROUTE Rx Instructions: As directed 3 times a day (DME) lancets [OneTouch Delica Lancets] 33 gauge misc See Rx Instructions .ROUTE Rx Instructions: As directed 3 times a day tolterodine 4 mg capsule,extended release 24hr 4 mg PO DAILY <Lolly Thacker, PA - Last Filed: 11/03/22 12:51> Referrals: Óscar,Deirdre Raymundo MD [Primary Care Provider] - <NOEL Huang - Last Filed: 11/03/22 12:51> Interventions: ED Discharge Assessment Last Done: 11/03/22 14:02 <NOEL Huang - Last Filed: 11/03/22 12:51> Discharge Date/Time: 11/03/22 14:03 <NOEL Huang - Last Filed: 11/03/22 12:51>
--- NOTE | 2022-11-03 11:16 | ECG_ITS ---
Test Reason : syncope Blood Pressure : / mmHG Vent. Rate : 067 BPM Atrial Rate : 067 BPM P-R Int : 136 ms QRS Dur : 098 ms QT Int : 368 ms P-R-T Axes : 068 083 060 degrees QTc Int : 388 ms Normal sinus rhythm Minimal voltage criteria for LVH, may be normal variant ( [place] product ) Borderline ECG When compared with ECG of 18-OCT-2022 17:02, No significant change was found Referred By: Lolly Thacker Electronically Signed By:Dada Fiore
[2022-11-03 11:57] LABS: Appearance Urine Cloudy; Color Urine Yellow; Glucose Urine UA Negative (Negative); Leukocyte Esterase Urine Trace (Negative); Nitrite Urine Negative (Negative); PH 7.5 (5.0-9.0); Specific Gravity - Urine 1.025 (1.005-1.025); UMIC TRIGGER UACC YES; Urine Blood Negative (Negative); Urine Ketones Negative (Negative); Urine Protein 30 (1+) mg/dL (Neg-Trace)
[2022-11-03 12:00] LABS: Bacteria Urine 1+ (None Seen); Hyaline Casts Urine 0-2 /LPF (0-2); RBC Urine 0-2 /HPF (0-2); WBC Urine 0-5 /HPF (0-5)
[2022-11-03 12:21] LABS: Alanine Aminotransferase 8 U/L (0-31); Albumin Level 4.5 g/dL (3.5-5.0); Alkaline Phosphatase 51 U/L (39-117); Anion Gap 13 (12-20); Aspartate Amino Transferase 15 U/L (5-31); Bilirubin Total 0.4 mg/dL (0.0-1.0); Blood Urea Nitrogen 15 mg/dL (9-16); Calcium 9.3 mg/dL (8.4-10.2); Carbon Dioxide 30 mmol/L (22-29); Chloride 105 mmol/L (96-108); Creatinine Clr Calc Pharmacy 85.3; Estimated Glomerular Filt Rate > 60; Glucose Random 90 mg/dL (60-115); Magnesium 1.9 mg/dL (1.6-2.6); Potassium 4.7 mmol/L (3.3-5.1); Sodium 143 mmol/L (135-145); Total Protein 6.8 g/dL (6.5-8.0); Troponin-I High Sensitivity < 2.7 ng/L (<3.5-17.0)
[2022-11-03 12:33] LABS: Influenza A PCR NEGATIVE (Negative); Influenza B PCR NEGATIVE (Negative); Resp Syncy Virus RNA Qual PCR NEGATIVE (Negative); SARS COV2 PCR INHOUSE NEGATIVE (Negative)
[2022-11-03 12:46] LABS: Basophils Absolute Auto 0.1 X10*3/uL (0.0-0.2); Eosinophils Absolute Auto 0.1 X10*3/uL (0.0-0.4); Hematocrit 35.4 % (37.0-47.0); Hemoglobin 11.4 g/dl (12.0-16.0); Imm Gran Abs Auto 0.02 X10*3/uL (0.00-0.03); Imm Gran Pct Auto 0.3 % (0.0-0.4); Lymphocytes Absolute Auto 1.5 X10*3/uL (1.2-4.9); Lymphocytes Percent Auto 24.5 % (20-40); Mean Corpuscular HGB Conc 32.2 g/dl (31.0-35.0); Mean Corpuscular Hemoglobin 27.7 pg (27.0-33.0); Mean Corpuscular Volume 86.1 fL (80.0-98.0); Mean Platelet Volume 9.7 fL (9.4-12.3); Monocytes Absolute Auto 0.4 X10*3/uL (0.1-1.2); Monocytes Percent Auto 7.4 % (2-11); Neutrophils Absolute Auto 3.9 x10*3/uL (2.0-8.3); Neutrophils Percent Auto 65.8 % (45-73); Platelet Count 323 X10*3/uL (160-400); Red Blood Count 4.11 X10*6/uL (4.20-5.50); Red Cell Distribution Width 19.7 % (11.0-16.0); White Blood Count 5.9 X10*3/uL (4.8-10.8)
[2022-11-03 13:10] VITALS: BP 127/79; PULSE 66
[2022-11-03 13:12] VITALS: BP 140/106; PULSE 71
[2022-11-03 13:13] VITALS: BP 143/94; PULSE 71
[2022-11-03 13:58] LABS: MANUAL DIFF FLAG NO
== END 2022-11-03 14:03 | disposition home or self-care (01) ==
PROVIDERS: Physician Assistant Medical; Emergency Provider Emergency Medicine; PCP Internal Medicine
DX: R55 Syncope and collapse (principal); R51.9 Headache, unspecified; R07.89 Other chest pain; Z20.822 Contact with and (suspected) exposure to COVID-19; Z20.828 Contact with and (suspected) exposure to other viral communicable diseases; Z98.84 Bariatric surgery status; Z79.899 Other long term (current) drug therapy
CPT/HCPCS: 0241U; 70450; 71046; 80053; 81001; 83735; 84484; 85025; 93005; 99283; 99284

== ENCOUNTER 2022-11-07 11:17 | Outpatient (REF) | payer OTHER, SELFPAY ==
[2022-11-07 13:35] LABS: Estimated Average Glucose 88 mg/dL; Hemoglobin A1c % 4.7 %
[2022-11-07 13:51] LABS: Amphetamine Screen Urine Not Detected (Not Detect); Barbiturates, Urine Not Detected (Not Detect); Benzodiazepines Screen Urine Not Detected (Not Detect); Cannabinoid Screen Urine Not Detected (Not Detect); Cocaine Screen Urine Not Detected (Not Detect); Fentanyl, urine Not Detected (Not Detect); Opiate Screen Urine Not Detected (Not Detect); Phencyclidine Screen Urine Not Detected (Not Detect)
[2022-11-07 13:56] LABS: Alanine Aminotransferase 10 U/L (0-31); Albumin Level 4.6 g/dL (3.5-5.0); Alkaline Phosphatase 54 U/L (39-117); Anion Gap 13 (12-20); Aspartate Amino Transferase 12 U/L (5-31); Bilirubin Total 0.5 mg/dL (0.0-1.0); Blood Urea Nitrogen 14 mg/dL (9-16); C Reactive Protein < 0.04 mg/dL (< or = 0.50); Calcium 9.3 mg/dL (8.4-10.2); Carbon Dioxide 27 mmol/L (22-29); Chloride 106 mmol/L (96-108); Cholesterol 154 mg/dL; Estimated Glomerular Filt Rate > 60; Glucose Random 88 mg/dL (60-115); HDL Cholesterol 54 mg/dL; LDL Cholesterol Calculated 90 mg/dl; Potassium 4.4 mmol/L (3.3-5.1); Sodium 142 mmol/L (135-145); Total Protein 6.8 g/dL (6.5-8.0); Triglycerides 50 mg/dL
[2022-11-07 14:21] LABS: TSH reflex Free T4 0.59 uIU/mL (0.32-4.0); Vitamin B12 578 pg/mL (200-900)
[2022-11-07 14:37] LABS: Vitamin D 25-OH Total 42.3 ng/mL (>30)
[2022-11-07 16:15] LABS: Insulin 3 uU/mL (2-29)
[2022-11-11 15:24] LABS: Zinc 67 mcg/dL (60-130)
[2022-11-13 13:03] LABS: Gastrin 21 pg/mL (<=100)
[2022-11-14 23:58] LABS: Vitamin A 34 mcg/dL (38-98)
[2022-11-16 05:48] LABS: Vitamin B1 <6 nmol/L (8-30)
[2022-11-16 22:38] LABS: Cotinine, U 29 ng/mL; Nicotine, U <2 ng/mL
== END 2022-11-07 11:18 | disposition home or self-care (01) ==
LOC: HO.LAB 11:17
PROVIDERS: PCP Internal Medicine; Referring Provider Internal Medicine; Visit Provider Surgery
DX: R14.0 Abdominal distension (gaseous) (principal); K91.2 Postsurgical malabsorption, not elsewhere classified; Z90.3 Acquired absence of stomach [part of]; R13.14 Dysphagia, pharyngoesophageal phase; K20.90 Esophagitis, unspecified without bleeding; K21.9 Gastro-esophageal reflux disease without esophagitis; F41.1 Generalized anxiety disorder; E53.8 Deficiency of other specified B group vitamins
CPT/HCPCS: 80053; 80061; 80307; 80323; 82306; 82607; 82941; 83036; 83525; 84134; 84425; 84443; 84590; 84630; 86140; 99202

== ENCOUNTER → 2022-11-14 12:07 | Outpatient (BNVA) | payer OTHER, SELFPAY | PROVIDERS: PCP Internal Medicine; Visit Provider Physician Assistant | DX: R63.6 Underweight (principal); K20.90 Esophagitis, unspecified without bleeding; D64.9 Anemia, unspecified; R13.12 Dysphagia, oropharyngeal phase; K95.89 Other complications of other bariatric procedure; E11.65 Type 2 diabetes mellitus with hyperglycemia; F10.10 Alcohol abuse, uncomplicated; Z68.1 Body mass index [BMI] 19.9 or less, adult; Z90.3 Acquired absence of stomach [part of]; Z79.4 Long term (current) use of insulin | CPT/HCPCS: 99202 ==

== ENCOUNTER 2022-11-21 05:19 | Emergency (ER) | payer OTHER, SELFPAY ==
--- NOTE | 2022-11-21 | ECG_ITS ---
Test Reason : EPIGASTRIC PAIN Blood Pressure : / mmHG Vent. Rate : 073 BPM Atrial Rate : 073 BPM P-R Int : 144 ms QRS Dur : 096 ms QT Int : 376 ms P-R-T Axes : 068 075 041 degrees QTc Int : 414 ms Normal sinus rhythm Normal ECG When compared with ECG of 03-NOV-2022 11:22, No significant change was found Referred By: Generic ED Physician Electronically Signed By:Dada Fiore
[2022-11-21 05:23] VITALS: BP 141/96; PULSE 88; RESP 20; TEMP 36.8; O2SAT 100; BMI 17.9
--- NOTE | 2022-11-21 05:35 | ED_ITS ---
HPI - General Adult General Chief complaint: General Medical Stated complaint: abd pain,throat pain, chest pressure Time Seen by Provider: 11/21/22 05:32 Source: patient Mode of arrival: ambulatory Limitations: language barrier History of Present Illness HPI narrative: patient with multiple visits for the same, patient with sore throat, epigastric pain. She had similar episodes a few weeks ago Onset (ago): week(s) Severity: mild Pain Consistency: intermittent Related Data Home Medications Medication Instructions Recorded Confirmed lactulose 10 gram/15 mL oral 10 g PO DAILY 08/27/20 11/14/22 solution blood sugar diagnostic (OneTouch 08/15/22 11/14/22 Verio test strips) blood-glucose meter (OneTouch 08/15/22 11/14/22 Verio Meter) lancets 33 gauge (OneTouch Delica 08/15/22 11/14/22 Lancets) omeprazole 40 mg capsule,delayed 40 mg PO BID 11/14/22 11/14/22 release sucralfate 100 mg/mL oral 5 ml PO QID 11/14/22 11/14/22 suspension (Carafate) Previous Rx's Medication Instructions Recorded blood pressure monitor (Blood #1 ea 10/31/21 Pressure Kit) BATH CHAIR #1 ea 01/31/22 CANE #1 ea 01/31/22 LIFELINE ALERT SYSTEM #1 ea 01/31/22 WRIST BRACE #1 ea 01/31/22 ALCOHOL PADS #100 ea 02/21/22 glucagon 1 mg solution for 1 mg IVPUSH ONCE PRN hypoglycemia 03/09/22 injection (GlucaGen HypoKit) below 55 #1 ea diphenhydramine HCl 25 mg capsule 25 mg PO BEDTIME PRN sleep #90 caps 03/10/22 (Benadryl) ROLLATOR #1 ea 05/23/22 food supplemt, lactose-reduced 1 ea PO TID 30 days #5,688 mL 05/23/22 (Ensure High Protein oral liquid) WRIST SPLINT Right and Left hand #1 ea 05/30/22 ENSURE once a day #90 ea 06/08/22 SHOWER BAR #1 ea 06/08/22 SHOWER WAND #1 ea 06/08/22 acetaminophen 160 mg/5 mL oral 500 mg (15.625 mL) PO QID PRN 06/26/22 suspension (Children's Tylenol) pain, temp 7 days #120 mL Bed pads #100 ea 07/17/22 Bedside commode #1 ea 07/17/22 SANITARY PADS #100 ea 07/17/22 fluticasone propionate 50 1 spray intranasal DAILY #100 mL 07/27/22 mcg/actuation nasal spray,suspension (Flonase Allergy Relief) Magic Mouthwash 5 ml PO .Q.a.c. #240 mL 07/29/22 Diphen/Lido/Antacid 1:1:1 240 mL suspension ondansetron 4 mg disintegrating 4 mg PO Q8H PRN nausea and 09/24/22 tablet vomiting #10 tabs simethicone 40 mg/0.6 mL oral 0.6 ml PO BID-TID PRN abdominal 11/08/22 drops,suspension distention #15 mL pantoprazole 40 mg granules 40 mg PO BID #60 packets 11/14/22 delayed-release for susp in packet sucralfate 100 mg/mL oral 5 ml PO QID #1,000 mL 11/21/22 suspension (Carafate) Allergies Allergy/AdvReac Type Severity Reaction Status Date / Time tomato [TOMATO] Allergy Mild HIVES Verified 11/14/22 13:03 DIFFICULTY BREATHING hydrocodone [HYDROCODONE] Allergy Unknown RASH, Verified 11/14/22 13:03 AIRWAY CLOSES ibuprofen [From MOTRIN] Allergy Unknown STOMACH Verified 11/14/22 13:03 UPSET, vomiting trazodone [TRAZODONE] Allergy Unknown UNKNOWN, Verified 11/14/22 13:03 stomach upset black pepper [BLACK PEPPER] AdvReac Severe DIFFICULTY Verified 11/14/22 13:03 BREATHING, hives lisinopril AdvReac Severe Anaphylaxis Verified 11/14/22 13:03 Review of Systems Review of Systems: Yes all other systems are reviewed and are negative Gastrointestinal: Gastrointestinal: Reports other (reflux) PMFSH Past Medical History Medical History (Updated 11/21/22 @ 06:51 by Haresh Vivar MD) Alcohol abuse Anxiety and depression Carpal tunnel syndrome 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 Diverticulosis GERD (gastroesophageal reflux disease) History of bipolar disorder History of schizophrenia Hypercholesterolemia Hypertension Insomnia Numbness of left hand Renal calculi Spondylosis of lumbar spine Type 2 diabetes mellitus with hyperglycemia Vitamin D deficiency Surgical History H/O: hysterectomy History of tubal ligation Hx of bariatric surgery Family History Family History Father Medical history unknown Mother Medical history unknown Paternal Aunt Uterine cancer Diabetes Hypertension Paternal Uncle Liver cancer Heart attack Maternal Aunt Stroke Family/Other Chronic mental illness Sister Uterine cancer Schizophrenia Brother Substance abuse Other Mental health disorder Social History Social History Household Members: None Housing: Apartment Do you presently have visiting nurse or other home services: Yes Alcohol intake: current Alcohol intake frequency: a few times a week Patient Tobacco Use Status: Never used Tobacco Smoked in Last 30 Days: Yes e-Cigarette/Vaping Use: Never Used Second Hand Smoke Exposure: No Use of substances other than those prescribed or required for medical reasons: No Advance Directives: No Advance Directives Information Provided: Yes Patient : No service: No Current occupational status: disabled Current occupational exposures/hazards: No Cognitive needs: No Hearing needs: No Vision needs: No Physical Exam ED Vital Signs: Vital Signs - 24 hr 11/21/22 05:23 11/21/22 05:51 Temperature 98.2 F 98.1 F Pulse Rate 88 69 Respiratory Rate 20 18 Blood Pressure 141/96 H 132/96 H Pulse Oximetry 100 98 Oxygen Delivery Method Room Air Room Air BMI result Body Mass Index 17.9 Const Other: very anxious thin female Nutritional Appearance: thin Orientation/consciousness: oriented to person and patient oriented x3 Limitations: no limitations HENMT Head: Yes normal to inspection Ears: external ears normal General nose exam: Normal external nose present Mouth: Normal oral and palatal mucosa present and oropharynx normal Throat: Yes posterior oropharynx normal Eyes General: appearance normal, both eyes and all related structures Neck Neck: Yes normal visual inspection Chest Chest palpation & inspection: normal inspection of the chest Resp Auscultation: clear to auscultation bilaterally Cardio Jugular venous distension: no JVD Rate: regular rate Rhythm: regular rhythm Heart sounds: S1 normal heart sound present and S2 normal heart sound present GI Inspection: Yes normal to inspection Palpation (GI): Soft to palpation, nontender and No hepatosplenomegaly present Auscultation: normal bowel sounds General: Yes no CVA tenderness Back/Spine/Pelvis Back: no CVA tenderness Skin General skin exam: no rashes or lesions noted Neuro General: oriented to person and patient oriented x3 Cranial nerves: Yes CN's II-XII intact bilaterally Motor exam (neuro): 5/5 motor strength present throughout Extrem General: Yes normal to inspection Psych Other: very anxious Course Reevaluation(s) Reevaluation #1: patient with multiple visits for the same with a pretty extensive workup including abdominal CT which was negative, will dc on carafate Time: 06:45 Medications Administered Discontinued Medications Generic Name Dose Route Start Last Admin Trade Name Freq PRN Reason Stop Dose Admin Sucralfate 1 gm 11/21/22 05:42 11/21/22 05:54 Sucralfate Oral Suspension 1 Gm/10 Ml Oral.Susp PO 11/21/22 05:43 1 gm ONCE ONE Administration Medical Decision Making Differential Diagnosis Differential Diagnoses: The differential diagnosis associated with the presentation includes (anxiety, gerd, esophagitis) Lab Data MDM Lab Attestation statement: I reviewed the patient's lab results. 11/21/22 05:34 11/21/22 05:34 Labs: Lab Results 11/21/22 11/21/22 11/21/22 Range/Units 05:34 05:34 05:34 WBC 4.9 (4.8-10.8) X10*3/uL RBC 4.26 (4.20-5.50) X10*6/uL Hgb 12.5 (12.0-16.0) g/dl Hct 37.8 (37.0-47.0) % MCV 88.7 (80.0-98.0) fL MCH 29.3 (27.0-33.0) pg MCHC 33.1 (31.0-35.0) g/dl RDW 17.0 H (11.0-16.0) % Plt Count 305 (160-400) X10*3/uL MPV 10.7 (9.4-12.3) fL Immature Gran % (Auto) 0.2 (0.0-0.4) % Neut % (Auto) 40.1 L (45-73) % Lymph % (Auto) 48.7 H (20-40) % Cataño % (Auto) 7.8 (2-11) % Eos % (Auto) 2.0 (0-4) % Baso % (Auto) 1.2 (0-2) % Lymph # (Auto) 2.4 (1.2-4.9) X10*3/uL [place] # (Auto) 0.4 (0.1-1.2) X10*3/uL Eos # (Auto) 0.1 (0.0-0.4) X10*3/uL Baso # (Auto) 0.1 (0.0-0.2) X10*3/uL Abs Immat Gran (auto) 0.01 (0.00-0.03) X10*3/uL Absolute Neuts (auto) 2.0 (2.0-8.3) x10*3/uL Absolute Nucleated RBC 0.000 (0.0-0.012) X10*3/uL Nucleated RBC % (auto) 0.0 (0.0-0.2) /100WBC Sodium 143 (135-145) mmol/L Potassium 4.6 (3.3-5.1) mmol/L Chloride 105 (96-108) mmol/L Carbon Dioxide 27 (22-29) mmol/L Anion Gap 16 (12-20) BUN 10 (9-16) mg/dL Creatinine 0.70 (0.5-1.4) mg/dL Estim Creat Clear Calc 73.4 Estimated GFR > 60 Random Glucose 85 (60-115) mg/dL Calcium 9.5 (8.4-10.2) mg/dL Total Bilirubin 0.3 (0.0-1.0) mg/dL AST 21 (5-31) U/L ALT 17 (0-31) U/L Alkaline Phosphatase 62 (39-117) U/L Troponin I High Sens < 2.7 (<3.5-17.0) ng/L Total Protein 7.1 (6.5-8.0) g/dL Albumin 4.6 (3.5-5.0) g/dL Lipase 17 (8-78) U/L External Record Review External record reviewed: Outpatient record and Prior outpatient labs Chronic Conditions Patient?s care impacted by: Other (schizophrenia) Social Determinants Patient?s care significantly limited by Social Determinants of Health including: Other Social Determinant of Health (psychiatric illness) Discharge Plan Discharge Clinical Impression: GERD (gastroesophageal reflux disease), Esophagitis with gastritis Patient Disposition: Home, Self-Care Instructions: Gastritis (ED), Gastroesophageal Reflux Disease (ED) Prescriptions: New sucralfate [Carafate] 100 mg/mL suspension 5 ml PO QID Qty: 1000 0RF Rx Instructions: swish in mouth and swallow; use after food/drink No Action (DME) blood pressure monitor [Blood Pressure Kit] Kit See Rx Instructions .Route Qty: 1 0RF Rx Instructions: As directed (DME) CANE See Rx Instructions .Route .MEDSUPPLY Qty: 1 0RF Rx Instructions: As directed (DME) WRIST BRACE See Rx Instructions .Route .MEDSUPPLY Qty: 1 0RF Rx Instructions: As directed (DME) BATH CHAIR See Rx Instructions .Route .MEDSUPPLY Qty: 1 0RF Rx Instructions: As directed (DME) LIFELINE ALERT SYSTEM See Rx Instructions .Route .MEDSUPPLY Qty: 1 0RF Rx Instructions: As directed (DME) ALCOHOL PADS See Rx Instructions .Route .MEDSUPPLY Qty: 100 3RF Rx Instructions: As directed diphenhydramine HCl [Benadryl] 25 mg capsule 25 mg PO BEDTIME PRN (Reason: sleep) Qty: 90 2RF (DME) ROLLATOR See Rx Instructions .Route .MEDSUPPLY Qty: 1 0RF Rx Instructions: As directed Ensure High Protein Liquid 1 ea PO TID 30 Days Qty: 5688 0RF (DME) WRIST SPLINT Right and Left hand See Rx Instructions .Route .MEDSUPPLY Qty: 1 0RF Rx Instructions: As directed (DME) SHOWER WAND See Rx Instructions .Route .MEDSUPPLY Qty: 1 0RF Rx Instructions: As directed (DME) SHOWER BAR See Rx Instructions .Route .MEDSUPPLY Qty: 1 0RF Rx Instructions: As directed (DME) ENSURE once a day See Rx Instructions .Route .MEDSUPPLY Qty: 90 0RF Rx Instructions: As directed acetaminophen [Children's Tylenol] 160 mg/5 mL suspension 500 mg PO QID PRN (Reason: pain, temp) 7 Days Qty: 120 0RF (DME) Bedside commode See Rx Instructions .Route .MEDSUPPLY Qty: 1 0RF Rx Instructions: As directed (DME) Bed pads See Rx Instructions .Route .MEDSUPPLY Qty: 100 12RF Rx Instructions: As directed (DME) SANITARY PADS See Rx Instructions .Route .MEDSUPPLY Qty: 100 12RF Rx Instructions: As directed simethicone 40 mg/0.6 mL drops,suspension 0.6 ml PO BID-TID PRN (Reason: abdominal distention) Qty: 15 0RF Magic Mouthwash Diphen/Lido/Antacid 1:1:1 240 mL suspension 5 ml PO .Q.a.c. Qty: 240 1RF Rx Instructions: Lidocaine Viscous 2 % 80mL; diphenhydramine 12.5 mg/5 mL 80mL; aluminum-mag hydrox-simeth [id number]/5mL 80mL. 5-10 mL gargle and swallow up to 4 times a day ondansetron 4 mg tablet,disintegrating 4 mg PO Q8H PRN (Reason: nausea and vomiting) Qty: 10 0RF lactulose 10 gram/15 mL solution 10 g PO DAILY fluticasone propionate [Flonase Allergy Relief] 50 mcg/actuation spray,suspension 1 spray intranasal DAILY Qty: 100 0RF Rx Instructions: administer into each nostril GlucaGen HypoKit 1 mg recon soln 1 mg IVPUSH ONCE PRN (Reason: hypoglycemia below 55) Qty: 1 0RF (DME) blood-glucose meter [OneTouch Verio Meter] [facility] [place] Rx Instructions .Route Rx Instructions: As directed (DME) OneTouch Verio test strips Strip See Rx Instructions .Route Rx Instructions: As directed 3 times a day (DME) lancets [OneTouch Delica Lancets] 33 gauge [facility] [place] See Rx Instructions .Route Rx Instructions: As directed 3 times a day omeprazole 40 mg capsule,delayed release(DR/EC) 40 mg PO BID sucralfate [Carafate] 100 mg/mL suspension 5 ml PO QID Rx Instructions: swish in mouth and swallow; use after food/drink pantoprazole [address] for susp in packet 40 mg PO BID Qty: 60 5RF Referrals: Óscar,Deirdre Raymundo MD [Primary Care Provider] - 5 days
[2022-11-21 05:43] LABS: MANUAL DIFF FLAG NO
[2022-11-21 05:46] LABS: Basophils Absolute Auto 0.1 X10*3/uL (0.0-0.2); Basophils Percent Auto 1.2 % (0-2); Eosinophils Absolute Auto 0.1 X10*3/uL (0.0-0.4); Hematocrit 37.8 % (37.0-47.0); Hemoglobin 12.5 g/dl (12.0-16.0); Imm Gran Abs Auto 0.01 X10*3/uL (0.00-0.03); Imm Gran Pct Auto 0.2 % (0.0-0.4); Lymphocytes Absolute Auto 2.4 X10*3/uL (1.2-4.9); Lymphocytes Percent Auto 48.7 % (20-40); Mean Corpuscular HGB Conc 33.1 g/dl (31.0-35.0); Mean Corpuscular Hemoglobin 29.3 pg (27.0-33.0); Mean Corpuscular Volume 88.7 fL (80.0-98.0); Mean Platelet Volume 10.7 fL (9.4-12.3); Monocytes Absolute Auto 0.4 X10*3/uL (0.1-1.2); Monocytes Percent Auto 7.8 % (2-11); Neutrophils Percent Auto 40.1 % (45-73); Platelet Count 305 X10*3/uL (160-400); Red Blood Count 4.26 X10*6/uL (4.20-5.50); White Blood Count 4.9 X10*3/uL (4.8-10.8)
[2022-11-21 05:51] VITALS: BP 132/96; PULSE 69; RESP 18; TEMP 36.7; O2SAT 98
[2022-11-21] MEDS: Sucralfate Oral Suspension 1 GM/10 ML ORAL.SUSP PO (05:54)
[2022-11-21 05:57] LABS: Alanine Aminotransferase 17 U/L (0-31); Albumin Level 4.6 g/dL (3.5-5.0); Alkaline Phosphatase 62 U/L (39-117); Anion Gap 16 (12-20); Aspartate Amino Transferase 21 U/L (5-31); Bilirubin Total 0.3 mg/dL (0.0-1.0); Blood Urea Nitrogen 10 mg/dL (9-16); Calcium 9.5 mg/dL (8.4-10.2); Carbon Dioxide 27 mmol/L (22-29); Chloride 105 mmol/L (96-108); Creatinine Clr Calc Pharmacy 73.4; Estimated Glomerular Filt Rate > 60; Glucose Random 85 mg/dL (60-115); Lipase 17 U/L (8-78); Potassium 4.6 mmol/L (3.3-5.1); Sodium 143 mmol/L (135-145); Total Protein 7.1 g/dL (6.5-8.0)
[2022-11-21 06:07] LABS: Troponin-I High Sensitivity < 2.7 ng/L (<3.5-17.0)
== END 2022-11-21 07:22 | disposition home or self-care (01) ==
PROVIDERS: Emergency Provider Emergency Medicine; PCP Internal Medicine
DX: K21.9 Gastro-esophageal reflux disease without esophagitis (principal); K29.70 Gastritis, unspecified, without bleeding; K20.90 Esophagitis, unspecified without bleeding; R10.13 Epigastric pain; R07.0 Pain in throat; R07.89 Other chest pain; Z79.899 Other long term (current) drug therapy
CPT/HCPCS: 36415; 80053; 83690; 84484; 85025; 93005; 99284

== ENCOUNTER 2022-11-23 10:11 | Emergency (ER) | payer OTHER, SELFPAY ==
[2022-11-23 10:16] VITALS: BP 121/76; PULSE 60; RESP 19; TEMP 36.6; O2SAT 98; BMI 17.9
[2022-11-23 11:13] LABS: COVID-19 Test Negative (Negative); IDNOW Serial# 9DB6401D
[2022-11-23 11:21] LABS: IDNOW Serial# 08D9AD1C; Strep A Nucleic Acid Negative (Negative)
[2022-11-23 11:30] LABS: IDNOW Serial# BCCEAD1C; Influenza A Negative (Negative); Influenza B2 Negative (Negative)
--- NOTE | 2022-11-23 12:14 | ED_ITS ---
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 complicated by malabsorption, adrenal insufficiency, anxiety, GERD, HTN, HLD who presents to the ER for evaluation of sore throat, difficulty swallowing, subjective fevers, N/V/D, headache and ear pain for the last 3 days. She was seen here 2 days ago for sore throat and epigastric pain. She has had many visits with similar complaints, workup has been unremarkable. She was discharged with Carafate. She states her epigastric pain is better. She has ongoing throat pain and difficulty swallowing and eating. This is chronic and ongoing for months. She has had several complications from her prior bariatric surgery at [facility] and is now seeing out bariatric surgeon instead after the [facility] doctor told her she needed a PEG tube. She states she continues to lose weight. She has an EGD and MBS scheduled here for early next week. MD elicited complaint: nausea, vomiting and diarrhea Pertinent past history: abdominal surgery Onset (ago): day(s) (3) Description of vomiting: food contents Associated nausea: Yes Location of pain: epigastric Radiation: other (throat) Pain consistency: intermittent Severity: moderate Quality: aching Exacerbating factors: eating Relieving factors: none Context: history of abdominal surgery Associated symptoms: fever/chills, headaches, loss of appetite, malaise, nausea/vomiting, weakness and anxiety Related Data Home Medications Medication Instructions Recorded Confirmed lactulose 10 gram/15 mL oral 10 g PO DAILY 08/27/20 11/14/22 solution blood sugar diagnostic (PermissionTVTouch 08/15/22 11/14/22 Verio test strips) blood-glucose meter (OneTouch 08/15/22 11/14/22 Verio Meter) lancets 33 gauge (OneTouch Delica 08/15/22 11/14/22 Lancets) omeprazole 40 mg capsule,delayed 40 mg PO BID 11/14/22 11/14/22 release sucralfate 100 mg/mL oral 5 ml PO QID 11/14/22 11/14/22 suspension (Carafate) Previous Rx's Medication Instructions Recorded blood pressure monitor (Blood #1 ea 10/31/21 Pressure Kit) BATH CHAIR #1 ea 01/31/22 CANE #1 ea 01/31/22 LIFELINE ALERT SYSTEM #1 ea 01/31/22 WRIST BRACE #1 ea 01/31/22 ALCOHOL PADS #100 ea 02/21/22 glucagon 1 mg solution for 1 mg IVPUSH ONCE PRN hypoglycemia 03/09/22 injection (GlucaGen HypoKit) below 55 #1 ea diphenhydramine HCl 25 mg capsule 25 mg PO BEDTIME PRN sleep #90 caps 03/10/22 (Benadryl) ROLLATOR #1 ea 05/23/22 food supplemt, lactose-reduced 1 ea PO TID 30 days #5,688 mL 05/23/22 (Ensure High Protein oral liquid) WRIST SPLINT Right and Left hand #1 ea 05/30/22 ENSURE once a day #90 ea 06/08/22 SHOWER BAR #1 ea 06/08/22 SHOWER WAND #1 ea 06/08/22 acetaminophen 160 mg/5 mL oral 500 mg (15.625 mL) PO QID PRN 06/26/22 suspension (Children's Tylenol) pain, temp 7 days #120 mL Bed pads #100 ea 07/17/22 Bedside commode #1 ea 07/17/22 SANITARY PADS #100 ea 07/17/22 fluticasone propionate 50 1 spray intranasal DAILY #100 mL 07/27/22 mcg/actuation nasal spray,suspension (Flonase Allergy Relief) Magic Mouthwash 5 ml PO .Q.a.c. #240 mL 07/29/22 Diphen/Lido/Antacid 1:1:1 240 mL suspension ondansetron 4 mg disintegrating 4 mg PO Q8H PRN nausea and 09/24/22 tablet vomiting #10 tabs simethicone 40 mg/0.6 mL oral 0.6 ml PO BID-TID PRN abdominal 11/08/22 drops,suspension distention #15 mL pantoprazole 40 mg granules 40 mg PO BID #60 packets 11/14/22 delayed-release for susp in packet sucralfate 100 mg/mL oral 5 ml PO QID #1,000 mL 11/21/22 suspension (Carafate) Allergies Allergy/AdvReac Type Severity Reaction Status Date / Time tomato [TOMATO] Allergy Mild HIVES Verified 11/23/22 10:16 DIFFICULTY BREATHING hydrocodone [HYDROCODONE] Allergy Unknown RASH, Verified 11/23/22 10:16 AIRWAY CLOSES ibuprofen [From MOTRIN] Allergy Unknown STOMACH Verified 11/23/22 10:16 UPSET, vomiting trazodone [TRAZODONE] Allergy Unknown UNKNOWN, Verified 11/23/22 10:16 stomach upset black pepper [BLACK PEPPER] AdvReac Severe DIFFICULTY Verified 11/23/22 10:16 BREATHING, hives lisinopril AdvReac Severe Anaphylaxis Verified 11/23/22 10:16 Review of Systems Review of Systems: Yes all other systems are reviewed and are negative Gastrointestinal: Gastrointestinal: Reports nausea PMFSH Past Medical History Medical History (Updated 11/23/22 @ 12:48 by NOEL Castaneda) Alcohol abuse Anxiety and depression Carpal tunnel syndrome 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 Diverticulosis GERD (gastroesophageal reflux disease) History of bipolar disorder History of schizophrenia Hypercholesterolemia Hypertension Insomnia Numbness of left hand Renal calculi Spondylosis of lumbar spine Type 2 diabetes mellitus with hyperglycemia Vitamin D deficiency Surgical History H/O: hysterectomy History of tubal ligation Hx of bariatric surgery Family History Family History Father Medical history unknown Mother Medical history unknown Paternal Aunt Uterine cancer Diabetes Hypertension Paternal Uncle Liver cancer Heart attack Maternal Aunt Stroke Family/Other Chronic mental illness Sister Uterine cancer Schizophrenia Brother Substance abuse Other Mental health disorder Social History Social History Household Members: None Housing: Apartment Do you presently have visiting nurse or other home services: Yes Alcohol intake: never Patient Tobacco Use Status: Never used Tobacco Smoked in Last 30 Days: No e-Cigarette/Vaping Use: Never Used Second Hand Smoke Exposure: No Use of substances other than those prescribed or required for medical reasons: No Advance Directives: No service: No Current occupational status: disabled Current occupational exposures/hazards: No Cognitive needs: No Hearing needs: No Vision needs: No Physical Exam Vital Signs: Vital Signs: Last Vital Signs Temp 98 F 11/23/22 10:16 Pulse 65 11/23/22 13:04 Resp 15 11/23/22 13:04 BP 146/69 H 11/23/22 13:04 Pulse Ox 97 11/23/22 13:04 O2 Del Method Room Air 11/23/22 13:04 BMI result Body Mass Index 17.9 Appearance: Alert. Oriented X3. Thin build Head: normocephalic, atraumatic. Eyes: Pupils equal, round and reactive to light. ENT: Pharynx normal. moist mucus membranes. No tonsillar swelling or exudate. Neck: Normal inspection. Neck supple. CVS: Normal heart rate and rhythm. Pulses normal. Respiratory: No respiratory distress. Breath sounds normal. Abdomen: Soft and nontender. +BS x4 Skin: Skin warm and dry. Normal skin color. Normal skin turgor. No rashes. Extremities: No lower extremity edema. No joint swelling. Neuro/psych: Oriented X 3. No motor deficit. No sensory deficit. CN II-XII intact. Normal speech and cognition. Medical Decision Making Medical Decision Making [facility] Narrative: 42 yo female with history of schizophrenia, ETOH abuse, ovarian cyst, anemia, dysphasia, history of gastric sleeve at [facility] complicated by malabsorption, adrenal insufficiency, anxiety, GERD, HTN, HLD who presents to the ER for evaluation of sore throat, difficulty swallowing, subjective fevers, N/V/D, headache and ear pain for the last 3 days. Exam is benign. She is able to tolerate PO. Most of her symptoms are chronic. She has no signs of infection today. She has MBS and EGD next week. She is stable for d/c home with plan to f/u outpatient. Differential Diagnosis Differential Diagnoses: The differential diagnosis associated with the presentation includes dysphagia, esophageal dysmotility, esophagitis, GERD, esophageal spasm, strep throat, covid, flu Lab Data [facility] Lab Attestation statement: I reviewed the patient's lab results. Labs: Lab Results 11/23/22 11/23/22 11/23/22 Range/Units 11:00 11:01 11:01 COVID-19 (ANGELA) Negative (Negative) COVID-19 Clin Com See Note Influenza Type A (BRIDGER) Negative (Negative) Influenza Type B (BRIDGER) Negative (Negative) Influenza A & B Note See Note S. pyogenes GrpA BRIDGER Negative (Negative) External Record Review External record reviewed: Office record, Outpatient record, Prior outpatient labs and Prior outpatient radiology Tests considered The following testing was considered but not selected: labs considered but done 2 days ago and were unremarkable. Chronic Conditions Patient?s care impacted by: Other (malabsorption issues s/p gastric sleeve) Critical Care Time Critical Care Time Critical Care Time: No Discharge Plan Discharge Clinical Impression: Dysphagia Patient Disposition: Home, Self-Care Instructions: Dysphagia (ED) Additional Instructions: You tested negative for COVID, Flu and Strep throat. Your ear does not have any infection. Recommend continuing your protein shakes for adequate caloric intake Follow up with Bariatric surgery with your MBS and Endoscopy next week. If you develop new or worsening symptoms call 911 or come back to the ER for further evaluation. Ryan negativo para COVID, gripe y faringitis estreptoc?cica. Tu o?do no tiene ninguna infecci?n. Recomiende continuar con eleuterio batidos de prote?ruddy para dylan ingesta samuel?franco adecuada Contin?e con la cirug?a bryon?trica con barnard MBS y endoscopia la pr?xima semana. Si desarrolla s?ntomas nuevos o que empeoran, llame al 911 o regrese a la rick de emergencias para dylan evaluaci?n adicional. Prescriptions: No Action (DME) blood pressure monitor [Blood Pressure Kit] Kit See Rx Instructions .Route Qty: 1 0RF Rx Instructions: As directed (DME) CANE See Rx Instructions .Route .MEDSUPPLY Qty: 1 0RF Rx Instructions: As directed (DME) WRIST BRACE See Rx Instructions .Route .MEDSUPPLY Qty: 1 0RF Rx Instructions: As directed (DME) BATH CHAIR See Rx Instructions .Route .MEDSUPPLY Qty: 1 0RF Rx Instructions: As directed (DME) LIFELINE ALERT SYSTEM See Rx Instructions .Route .MEDSUPPLY Qty: 1 0RF Rx Instructions: As directed (DME) ALCOHOL PADS See Rx Instructions .Route .MEDSUPPLY Qty: 100 3RF Rx Instructions: As directed diphenhydramine HCl [Benadryl] 25 mg capsule 25 mg PO BEDTIME PRN (Reason: sleep) Qty: 90 2RF (DME) ROLLATOR See Rx Instructions .Route .MEDSUPPLY Qty: 1 0RF Rx Instructions: As directed Ensure High Protein Liquid 1 ea PO TID 30 Days Qty: 5688 0RF (DME) WRIST SPLINT Right and Left hand See Rx Instructions .Route .MEDSUPPLY Qty: 1 0RF Rx Instructions: As directed ([facility]) SHOWER WAND See Rx Instructions .Route .MEDSUPPLY Qty: 1 0RF Rx Instructions: As directed ([facility]) SHOWER BAR See Rx Instructions .Route .MEDSUPPLY Qty: 1 0RF Rx Instructions: As directed (DME) ENSURE once a day See Rx Instructions .Route .MEDSUPPLY Qty: 90 0RF Rx Instructions: As directed acetaminophen [Children's Tylenol] 160 mg/5 mL suspension 500 mg PO QID PRN (Reason: pain, temp) 7 Days Qty: 120 0RF (DME) Bedside commode See Rx Instructions .Route .MEDSUPPLY Qty: 1 0RF Rx Instructions: As directed ([facility]) Bed pads See Rx Instructions .Route .MEDSUPPLY Qty: 100 12RF Rx Instructions: As directed ([facility]) SANITARY PADS See Rx Instructions .Route .MEDSUPPLY Qty: 100 12RF Rx Instructions: As directed simethicone 40 mg/0.6 mL drops,suspension 0.6 ml PO BID-TID PRN (Reason: abdominal distention) Qty: 15 0RF Magic Mouthwash Diphen/Lido/Antacid 1:1:1 240 mL suspension 5 ml PO .Q.a.c. Qty: 240 1RF Rx Instructions: Lidocaine Viscous 2 % 80mL; diphenhydramine 12.5 mg/5 mL 80mL; aluminum-mag hydrox-simeth [id number]/5mL 80mL. 5-10 mL gargle and swallow up to 4 times a day ondansetron 4 mg tablet,disintegrating 4 mg PO Q8H PRN (Reason: nausea and vomiting) Qty: 10 0RF sucralfate [Carafate] 100 mg/mL suspension 5 ml PO QID Qty: 1000 0RF Rx Instructions: swish in mouth and swallow; use after food/drink lactulose 10 gram/15 mL solution 10 g PO DAILY fluticasone propionate [Flonase Allergy Relief] 50 mcg/actuation spray,suspension 1 spray intranasal DAILY Qty: 100 0RF Rx Instructions: administer into each nostril GlucaGen HypoKit 1 mg recon soln 1 mg IVPUSH ONCE PRN (Reason: hypoglycemia below 55) Qty: 1 0RF (DME) blood-glucose meter [OneTouch Verio Meter] [facility] See Rx Instructions .Route Rx Instructions: As directed (DME) OneTouch Verio test strips Strip See Rx Instructions .Route Rx Instructions: As directed 3 times a day (DME) lancets [OneTouch Delica Lancets] 33 gauge [facility] See Rx Instructions .Route Rx Instructions: As directed 3 times a day omeprazole 40 mg capsule,delayed release(DR/EC) 40 mg PO BID sucralfate [Carafate] 100 mg/mL suspension 5 ml PO QID Rx Instructions: swish in mouth and swallow; use after food/drink pantoprazole [address] for susp in packet 40 mg PO BID Qty: 60 5RF Referrals: Carlos Multani MD [Physician] - Interventions: ED Discharge Assessment Last Done: 11/23/22 13:04 Discharge Date/Time: 11/23/22 13:07 Print Language: Wolof
--- NOTE | 2022-11-23 12:48 | PC.NURSE ---
Patient states that she is having some trouble swallowing and that her mouth and throat feel intermittently dry. Patient started carafate a few days ago for her gastric reflux and her Prilosec was changed to protonix recently. Patient wondering if changes in meds could be the cause of her symptoms. Patient otherwise thin appearing, oriented and able to answer all questions appropriately.
[2022-11-23 13:04] VITALS: BP 146/69; PULSE 65; RESP 15; O2SAT 97
== END 2022-11-23 13:07 | disposition home or self-care (01) ==
PROVIDERS: Physician Assistant; Emergency Provider Emergency Medicine; PCP Internal Medicine
DX: R13.10 Dysphagia, unspecified (principal); K91.2 Postsurgical malabsorption, not elsewhere classified; R11.2 Nausea with vomiting, unspecified; Z20.822 Contact with and (suspected) exposure to COVID-19; I10 Essential (primary) hypertension; E78.5 Hyperlipidemia, unspecified; R63.6 Underweight; Z68.1 Body mass index [BMI] 19.9 or less, adult; Z90.3 Acquired absence of stomach [part of]; Z90.710 Acquired absence of both cervix and uterus; Z98.51 Tubal ligation status; Z79.899 Other long term (current) drug therapy
CPT/HCPCS: 87502; 87635; 87651; 99283; 99284

== ENCOUNTER 2022-11-28 08:52 | Outpatient (REF) | payer OTHER, SELFPAY | END 2022-11-28 08:53 | disposition home or self-care (01) | LOC: HO.XRAY 08:52 | PROVIDERS: PCP Internal Medicine; Visit Provider Physician Assistant | DX: Z13.89 Encounter for screening for other disorder (principal) ==

== ENCOUNTER 2022-11-29 06:09 | Day surgery (SDC) | payer OTHER, SELFPAY ==
--- NOTE | 2022-11-25 15:14 | MHC.SHP ---
Pre-Procedural Eval Section A Date of Service: 11/25/22 The patient is an INPATIENT: No The History & Physical has been completed within 30 days and I have reviewed it.: Yes Section B Chief Complaint: GERD and vomiting Relevant Family History (Specify if Yes): No Relevant Social History: None Present Medications: None Medical History: No relevant PMH History of Previous Operations: Relevant previous surgery/procedure and date(s) (Robotic sleeve gastrectomy) Allergies: Allergies Allergy/AdvReac Type Severity Reaction Status Date / Time tomato [TOMATO] Allergy Mild HIVES Verified 11/23/22 10:16 DIFFICULTY BREATHING hydrocodone [HYDROCODONE] Allergy Unknown RASH, Verified 11/23/22 10:16 AIRWAY CLOSES ibuprofen [From MOTRIN] Allergy Unknown STOMACH Verified 11/23/22 10:16 UPSET, vomiting trazodone [TRAZODONE] Allergy Unknown UNKNOWN, Verified 11/23/22 10:16 stomach upset black pepper [BLACK PEPPER] AdvReac Severe DIFFICULTY Verified 11/23/22 10:16 BREATHING, hives lisinopril AdvReac Severe Anaphylaxis Verified 11/23/22 10:16 Review of Systems Sugical H&P ROS: Negative: Constitution, Cardiovascular, Respiratory, Neurological, Psychiatric, Hem-Onc, Allergic/Immunologic, Gastrointestinal, Genitourinary, Musculoskeletal, Integumentary, Endocrine and Eyes/Ears/Nose/Throat Exam Surgical H&P Exam: Normal: HEENT, Normal: Heart, Normal: Lungs, Normal: Extremities, Normal: Abdomen, Normal: Skin and Normal: Neurological Plan Diagnosis/Plan: Unchanged I have reviewed the history and physical and performed a pertinent physical examination on my patient. No changes have occurred unless specified. Time Spent With Patient Time: Total time managing care of this patient today ____ minutes.
--- NOTE | 2022-11-28 09:31 | P.CONAN_ITS ---
Documented by User: Elizabeth Cisneros NP 11/28/22 09:42 HPI - Anesthesia Eval Consult details Narrative: 42yo F for Upper Endoscopy s/p gastric sleeve [facility] Active Problems Active Problems: All Active Problems (Updated 11/23/22 @ 12:48 by NOEL Castaneda) History of schizophrenia (Acute) Alcohol abuse (Acute) Underweight (Acute) Esophagitis determined by endoscopy (Acute) Complex ovarian cyst (Acute) Tongue sore (Acute) Right ear pain (Acute) Abdominal bloating (Acute) Constipation (Acute) Urinary incontinence (Acute) Anemia (Acute) Right leg numbness (Acute) Dysphagia (Acute) Postgastrectomy malabsorption (Acute) COVID-19 virus infection (Acute) Blurred vision, bilateral (Acute) Memory impairment (Acute) Melasma (Acute) Lumbar radiculopathy, chronic (Acute) Dysphagia (Acute) Annual physical exam (Acute) Hypoglycemia after GI (gastrointestinal) surgery (Acute) Pelvic pain (Acute) Vaginal irritation (Acute) Vaginitis (Acute) Syncope (Acute) ACTH elevation (Acute) Dysphagia (Acute) Hypoglycemia (Acute) Malabsorption (Acute) Adrenal insufficiency (Acute) S/P gastric sleeve procedure (Acute) Low back pain (Acute) Yeast vaginitis (Acute) Hypersomnia (Acute) Bilateral hand numbness (Acute) Breast cancer screening by mammogram (Acute) Vaginal pruritus (Acute) Dysuria (Acute) Annual physical exam (Acute) Generalized anxiety disorder (Acute) COVID-19 virus infection (Acute) Hyperpigmentation (Acute) Ulnar neuropathy (Acute) Radicular low back pain (Acute) Right hand pain (Acute) Vitamin B 12 deficiency (Acute) Alopecia (Acute) Renal calculi (Acute) 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 (Acute) Spondylosis of lumbar spine (Acute) GERD (gastroesophageal reflux disease) (Acute) Hypercholesterolemia (Acute) Hypertension (Acute) Past Medical History 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 Diverticulosis GERD (gastroesophageal reflux disease) History of bipolar disorder History of schizophrenia Hypercholesterolemia Hypertension Insomnia Numbness of left hand Renal calculi Spondylosis of lumbar spine Type 2 diabetes mellitus with hyperglycemia Vitamin D deficiency Family History Family History Father Medical history unknown Mother Medical history unknown Paternal Aunt Uterine cancer Diabetes Hypertension Paternal Uncle Liver cancer Heart attack Maternal Aunt Stroke Family/Other Chronic mental illness Sister Uterine cancer Schizophrenia Brother Substance abuse Other Mental health disorder Surgical History Surgical History H/O: hysterectomy History of tubal ligation Hx of bariatric surgery Social History Social History Household Members: None Housing: Apartment Do you presently have visiting nurse or other home services: Yes Alcohol intake: never Patient Tobacco Use Status: Never used Tobacco e-Cigarette/Vaping Use: Never Used Second Hand Smoke Exposure: No service: No Current occupational status: disabled Current occupational exposures/hazards: No Cognitive needs: No Hearing needs: No Vision needs: No Meds Allergies Allergy/AdvReac Type Severity Reaction Status Date / Time tomato [TOMATO] Allergy Mild HIVES Verified 11/23/22 10:16 DIFFICULTY BREATHING hydrocodone [HYDROCODONE] Allergy Unknown RASH, Verified 11/23/22 10:16 AIRWAY CLOSES ibuprofen [From MOTRIN] Allergy Unknown STOMACH Verified 11/23/22 10:16 UPSET, vomiting trazodone [TRAZODONE] Allergy Unknown UNKNOWN, Verified 11/23/22 10:16 stomach upset black pepper [BLACK PEPPER] AdvReac Severe DIFFICULTY Verified 11/23/22 10:16 BREATHING, hives lisinopril AdvReac Severe Anaphylaxis Verified 11/23/22 10:16 Home Medications Medication Instructions Recorded Confirmed Last Taken Type lactulose 10 gram/15 mL oral 10 g PO DAILY 08/27/20 11/14/22 Unknown History solution blood sugar diagnostic (OneTouch 08/15/22 11/14/22 Unknown History Verio test strips) blood-glucose meter (OneTouch 08/15/22 11/14/22 Unknown History Verio Meter) lancets 33 gauge (OneTouch Delica 08/15/22 11/14/22 Unknown History Lancets) omeprazole 40 mg capsule,delayed 40 mg PO BID 11/14/22 11/14/22 Unknown History release sucralfate 100 mg/mL oral 5 ml PO QID 11/14/22 11/14/22 Unknown History suspension (Carafate) Exam Exam Date and Time: November 28, 2022 0931 Pertinent Lab Results Pertinent Lab Results: Laboratory Tests 11/21/22 11/21/22 05:34 05:34 WBC 4.9 Hgb 12.5 Hct 37.8 Plt Count 305 Sodium 143 Potassium 4.6 Chloride 105 Carbon Dioxide 27 BUN 10 Creatinine 0.70 Narrative Narrative: EKG 10/2022 Vent. Rate : 073 BPM ? ? Atrial Rate : 073 BPM ?? P-R Int : 144 ms? QRS Dur : 096 ms ? ? QT Int : 376 ms ? ? ? P-R-T Axes : 068 075 041 degrees ?? QTc Int : 414 ms ? Normal sinus rhythm Normal ECG When compared with ECG of 03-NOV-2022 11:22, No significant change was found Assessment and Plan Assessment Anesthesia Assessment: Chart Reviewed Documented by User: Marika Lo MD 11/29/22 09:38 HPI - Anesthesia Eval Consult details Narrative: 42yo F for Upper Endoscopy s/p gastric sleeve 09/2021 @ [facility] Active Problems Active Problems: All Active Problems (Updated 11/29/22 @ 07;20 by Marika Lo MD) History of schizophrenia (Acute) Alcohol abuse (Acute) Underweight (Acute) Esophagitis determined by endoscopy (Acute) Complex ovarian cyst (Acute) Tongue sore (Acute) Right ear pain (Acute) Abdominal bloating (Acute) Constipation (Acute) Urinary incontinence (Acute) Anemia (Acute) Right leg numbness (Acute) Dysphagia (Acute) Postgastrectomy malabsorption (Acute) COVID-19 virus infection (Acute) Blurred vision, bilateral (Acute) Memory impairment (Acute) Melasma (Acute) Lumbar radiculopathy, chronic (Acute) Dysphagia (Acute) Annual physical exam (Acute) Hypoglycemia after GI (gastrointestinal) surgery (Acute) Pelvic pain (Acute) Vaginal irritation (Acute) Vaginitis (Acute) Syncope (Acute) ACTH elevation (Acute) Dysphagia (Acute) Hypoglycemia (Acute) Malabsorption (Acute) Adrenal insufficiency (Acute) S/P gastric sleeve procedure (Acute) Low back pain (Acute) Yeast vaginitis (Acute) Hypersomnia (Acute) Bilateral hand numbness (Acute) Breast cancer screening by mammogram (Acute) Vaginal pruritus (Acute) Dysuria (Acute) Annual physical exam (Acute) Generalized anxiety disorder (Acute) COVID-19 virus infection (Acute) Hyperpigmentation (Acute) Ulnar neuropathy (Acute) Radicular low back pain (Acute) Right hand pain (Acute) Vitamin B 12 deficiency (Acute) Alopecia (Acute) Renal calculi (Acute) 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 (Acute) Spondylosis of lumbar spine (Acute) GERD (gastroesophageal reflux disease) (Acute) Hypercholesterolemia (Acute) Hypertension (Acute) Denies CHAVEZ Has emesis bag- Spitting into it. States no nausea or vomiting- just mucus Past Medical History 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 Diverticulosis GERD (gastroesophageal reflux disease) History of bipolar disorder History of schizophrenia Hypercholesterolemia Hypertension Insomnia Numbness of left hand Renal calculi Spondylosis of lumbar spine Type 2 diabetes mellitus with hyperglycemia Vitamin D deficiency Family History Family History Father Medical history unknown Mother Medical history unknown Paternal Aunt Uterine cancer Diabetes Hypertension Paternal Uncle Liver cancer Heart attack Maternal Aunt Stroke Family/Other Chronic mental illness Sister Uterine cancer Schizophrenia Brother Substance abuse Other Mental health disorder Family history of problems with anesthesia: No Surgical History Surgical History H/O: hysterectomy History of tubal ligation Hx of bariatric surgery History of Problems with Anesthesia: No Social History Social History Household Members: None Housing: Apartment Do you presently have visiting nurse or other home services: Yes Alcohol intake: never Patient Tobacco Use Status: Never used Tobacco e-Cigarette/Vaping Use: Never Used Second Hand Smoke Exposure: No service: No Current occupational status: disabled Current occupational exposures/hazards: No Cognitive needs: No Hearing needs: No Vision needs: No Meds Allergies Allergy/AdvReac Type Severity Reaction Status Date / Time tomato [TOMATO] Allergy Mild HIVES Verified 11/23/22 10:16 DIFFICULTY BREATHING hydrocodone [HYDROCODONE] Allergy Unknown RASH, Verified 11/23/22 10:16 AIRWAY CLOSES ibuprofen [From MOTRIN] Allergy Unknown STOMACH Verified 11/23/22 10:16 UPSET, vomiting trazodone [TRAZODONE] Allergy Unknown UNKNOWN, Verified 11/23/22 10:16 stomach upset black pepper [BLACK PEPPER] AdvReac Severe DIFFICULTY Verified 11/23/22 10:16 BREATHING, hives lisinopril AdvReac Severe Anaphylaxis Verified 11/23/22 10:16 Home Medications Medication Instructions Recorded Confirmed Last Taken Type lactulose 10 gram/15 mL oral 10 g PO DAILY 08/27/20 11/14/22 Unknown History solution blood sugar diagnostic (OneTouch 08/15/22 11/14/22 Unknown History Verio test strips) blood-glucose meter (KanchufangTouch 08/15/22 11/14/22 Unknown History Verio Meter) lancets 33 gauge (OneTouch Delica 08/15/22 11/14/22 Unknown History Lancets) omeprazole 40 mg capsule,delayed 40 mg PO BID 11/14/22 11/14/22 Unknown History release sucralfate 100 mg/mL oral 5 ml PO QID 11/14/22 11/14/22 Unknown History suspension (Carafate) Exam Height,Weight and Vital Signs: Height 5 ft 2 in Weight 45.269 kg Vital Signs Temp Pulse Resp BP Pulse Ox O2 Del Method 11/29/22 07:01 97.4 F 57 16 119/80 100 Room Air Pertinent Lab Results Pertinent Lab Results: Laboratory Tests 11/21/22 11/21/22 05:34 05:34 WBC 4.9 Hgb 12.5 Hct 37.8 Plt Count 305 Sodium 143 Potassium 4.6 Chloride 105 Carbon Dioxide 27 BUN 10 Creatinine 0.70 Lab Results 11/28/22 Range/Units 15:15 COVID-19 (ANGELA) Negative (Negative) COVID-19 Clin Com See Note Airway Mallampati Class: II TM Dist: >3cm Neck ROM: Full Loose/Missing/Broken Teeth: Yes (Missing tooth bottom front. Denies loose or broken teeth) Heart: RRR Lungs: CTAB Assessment and Plan Assessment Anesthesia Assessment: Anesthesia Plan Discussed Final Anesthetic Review Family History of Problems with Anesthesia: No History of Problems with Anesthesia: No NPO: Yes ASA Class: III Final Preanesthetic Review: No Changes in Pt Med Stat, Meds/Allgs Chart Reviewed, Consent Obtained/Reviewed and Anes Risks/Benef Reviewed Patient Risk: Intermediate Procedure Risk: Low Assessment/Block/Sedation in SS: Assess/Block/Sedation-SS Anesthetic Plan Anesthetic Plan: MAC: Disposition: Standard PACU
[2022-11-28 15:46] LABS: COVID-19 Test Negative (Negative); IDNOW Serial# 08D9AD1C
[2022-11-29 06:54] VITALS: BMI 18.3
[2022-11-29 07:01] VITALS: BP 119/80; PULSE 57; RESP 16; TEMP 36.3; O2SAT 100
[2022-11-29] MEDS: Lactated Ringers 1,000 ML 100 ML IVCONT (07:37)
[2022-11-29 08:09] VITALS: BP 108/67; PULSE 68; RESP 17; TEMP 36.6; O2SAT 100
--- NOTE | 2022-11-29 08:21 | P.BOP_ITS ---
Brief Operative Note Date of Service: 11/29/22 Pre-op diagnosis: Food intolerance, GERD and abdominal pain, s/p sleeve gastrectomy Post-op diagnosis: same (& Esophagitis, gastritis, hiatal hernia and long stricture of the sleeve) Procedure: PROCEDURE DATE: 11/29/2022 PREOPERATIVE DIAGNOSIS: GERD, s/p sleeve gastrectomy POSTOPERATIVE DIAGNOSIS: ?Same as above. 1) small hiatal hernia, 2) distal severe gastritis, 3) esophagitis, 4) long stricture of the sleeve PROCEDURE: [id number] with biopsies Surgeon: ?Maury Multani M.D.. Ph.D. Right Of Way Supervisor: None ? Anesthesia: IV sedation Estimated blood loss: ?Minimal FINDINGS AND PROCEDURE: ? OPERATIVE INDICATIONS: ?The patient is a 42 year old female known to me who underwent a laparoscopic sleeve gastrectomy by Dr. Callaway at [facility]. The patient had excessive weight loss so far and appears malnourished. She also has persistent food sticking, dysphagia, GERD and abdominal pain. She is a smoker.?Recent UGI shows significant GERD and CT abdomen shows a tight sleeve. Based on this information I recommended an upper endoscopy to evaluate the patient's symptoms. Risks and complications of the surgery were discussed with the patient in advance particularly the possibility of perforation or bleeding that may require surgical intervention. The patient understood the risks and was in agreement with the plan. ? PROCEDURE: After informed consent was obtained by the patient, the patient was ?transferred to the Operating Room and was placed in the supine position.? After successful induction of IV sedation, a mouth block was inserted and the patient was placed in the left lateral decubitus position. An upper endoscopy was performed next, the oropharynx and esophagus appeared within the normal limits. There was a small hiatal hernia. The z-line was irregular with tongues of gastric mucosa protruding into the esophagus in more than 50% circumference. One biopsy was obtained from the GE junction. The sleeve was entered. Within about 2cm from the GE junction the sleeve caliber is considerably narrow but the scope can get through fairly easily with some negotiation. There was severe gastritis at distal antrum. There was no ulcer. A biopsy were obtained from the distal antrum. No significant bleeding was noted from any of the biopsy sites. The scope was then advanced into the duodenum which appeared to be normal as well. At that point the duodenum ?and the sleeve were decompressed and the scope was withdrawn from the patient's mouth. The patient extubated and was transferred in stable condition to the Recovery Room for further care. I was present and performed all steps of the procedure. There were no residents to assist with this case. Maury Multani M.D., Ph.D. Surgeon: Carlos Multani MD Anesthesia: MAC Was an Right Of Way Supervisor used for this Procedure?: No Estimated blood loss (mL): 0 IV fluids (mL): 500 Pathology: other (1) antrum x1, 2) EGJ x1) Condition: stable Disposition: PACU
[2022-11-29 08:24] VITALS: BP 106/73; PULSE 68; RESP 16; TEMP 36.6; O2SAT 100
== END 2022-11-29 08:55 | disposition home or self-care (01) ==
PROVIDERS: Physician Assistant Surgical; PCP Internal Medicine; Visit Provider Surgery
PROC: 0DJ08ZZ Inspection of Upper Intestinal Tract, Via Natural or Artificial Opening Endoscopic (ICD-10-PCS; CPT 43235; principal; 2022-11-29 07:30)
DX: R10.9 Unspecified abdominal pain (principal); K21.00 Gastro-esophageal reflux disease with esophagitis, without bleeding; K29.70 Gastritis, unspecified, without bleeding; K44.9 Diaphragmatic hernia without obstruction or gangrene; K95.89 Other complications of other bariatric procedure; Y84.8 Other medical procedures as the cause of abnormal reaction of the patient, or of later complication, without mention of misadventure at the time of the procedure; Y92.9 Unspecified place or not applicable; K90.49 Malabsorption due to intolerance, not elsewhere classified; I10 Essential (primary) hypertension; E11.9 Type 2 diabetes mellitus without complications; Z87.891 Personal history of nicotine dependence; Z98.84 Bariatric surgery status; Z90.3 Acquired absence of stomach [part of]; Z20.822 Contact with and (suspected) exposure to COVID-19; Z88.6 Allergy status to analgesic agent; Z88.8 Allergy status to other drugs, medicaments and biological substances
CPT/HCPCS: 43239; 87635; 88305; 88342

== ENCOUNTER → 2022-12-06 12:42 | Outpatient (BNVA) | payer OTHER, SELFPAY | PROVIDERS: PCP Internal Medicine; Visit Provider Physician Assistant | DX: K31.2 Hourglass stricture and stenosis of stomach (principal); K29.70 Gastritis, unspecified, without bleeding; K20.90 Esophagitis, unspecified without bleeding; R63.6 Underweight; Z80.3 Family history of malignant neoplasm of breast | CPT/HCPCS: 99212 ==

== ENCOUNTER 2022-12-11 10:19 | Emergency (ER) | payer OTHER, SELFPAY ==
--- NOTE | ~2022-12-11 | CT_ITS ---
EXAMINATION: CT ABDOMEN AND PELVIS WITH CONTRAST CLINICAL INFORMATION: Left lower quadrant tenderness. Bloody diarrhea. COMPARISON: CT abdomen and pelvis 10/23/2022 TECHNIQUE: Multidetector volumetric images were obtained from the superior aspect of the liver through the pubic symphysis following administration 85 mL of Omnipaque 350 intravenous contrast. Sagittal and coronal reformatted images were obtained on the technologist's workstation. Oral contrast: No This CT examination was performed using dose optimization techniques as appropriate, variously including the following: *Automated exposure control *Adjustment of mA and/or kV according to patient size (this includes techniques or standardized protocols for targeted exams where dose is matched to indication/reason for exam; i.e. extremities or head) *Use of iterative reconstruction technique DLP: 274 mGy-cm FINDINGS: LUNG BASES: The visualized lung bases are unremarkable. LIVER, GALLBLADDER, AND BILIARY TREE: The liver is normal in size, shape, and attenuation. There are small hypodense areas scattered throughout the liver largest in segment 4A measuring 7 mm. These are most likely small cysts. No intrahepatic ductal dilatation seen. The gallbladder is unremarkable with no evidence of radiopaque gallstones, gallbladder wall thickening, or obvious pericholecystic inflammatory changes. PANCREAS: Unremarkable. SPLEEN: Unremarkable. ADRENAL GLANDS: Unremarkable. KIDNEYS AND URETERS: The kidneys are normal in size, shape, and attenuation. No hydronephrosis, hydroureter, or calculi seen. No perinephric stranding. BLADDER: The bladder is nondistended with diffuse bladder wall thickening. GASTROINTESTINAL TRACT: There is scattered stool, diverticula and gas seen throughout the colon without distention or diverticulitis. The small bowel loops are normal caliber. No free air or free fluid seen. Appendix is not visualized. Gastric sleeve surgical changes are seen without gastric distention. ABDOMINAL WALL: No significant hernia is appreciated. LYMPH NODES: No abnormal size retroperitoneal lymph nodes or mass seen. VASCULAR: No aggressive lytic or sclerotic process. There is endplate Schmorl's node L5 vertebra. PELVIC VISCERA: The uterus appears surgically removed with a small cervix noted. There is no free air or free fluid.. OSSEOUS STRUCTURES: Unremarkable. CT/CT abdomen pelvis w IV con IMPRESSION: No acute intra-abdominal process seen. Scattered diverticula and gas in colon without distention. No major change compared to previous study 10/23/2022. Fleischner guidelines were followed.
--- NOTE | 2022-12-11 11:05 | ED.NAVMDI ---
HPI - Nausea/Vomiting/Diarrhea General Chief complaint: Abdominal Pain <Kaylie Choi NP - Last Filed: 12/11/22 11:09> Stated complaint: Vomiting/Dizziness <Kaylie Choi NP - Last Filed: 12/11/22 11:09> Time Seen by Provider: 12/11/22 11:20 <Kaylie Choi NP - Last Filed: 12/11/22 11:09> Source: patient <NOEL Castaneda - Last Filed: 12/11/22 16:28> Mode of arrival: ambulatory <NOEL Castaneda - Last Filed: 12/11/22 16:28> Limitations: no limitations <NOEL Castaneda Last Filed: 12/11/22 16:28> History of Present Illness HPI Narrative: 42 yo female with history of robotic gastric sleeve at [facility] one year ago complicated by malabsorption, adrenal insufficiency, anxiety, GERD, gastritis, esophagitis, significant weight loss and dysphagia, history of HTN, HLD, schizophrenia, ovarian cysts and anemia who presents to the ER for evaluation of a 4 days of N/V/D, lower abdominal pain and SOB. She follows with Dr. Dimas now and no loner goes to [facility]. She had an EGD on 11/28 showing distal gastric structure, sever gastritis, esophagitis and small hiatial hernia. She is due for an upper GI series end of December, it was postponed because she did not think she could drink the contrast. Patient states for the last 4 days she has had L>R lower abdominal pain, 5 episodes of diarrhea (sometimes bloody). She also reports acute on chronic nausea and vomiting. No urinary symptoms. She states she had a fever yesterday. <NOEL Castaneda - Last Filed: 12/11/22 16:28> MD elicited complaint: nausea, vomiting and abdominal pain <NOEL Castaneda Last Filed: 12/11/22 16:28> Related Data Home medications: Home Medications Medication Instructions Recorded Confirmed blood sugar diagnostic (OneTouch 08/15/22 11/14/22 Verio test strips) blood-glucose meter (OneTouch 08/15/22 11/14/22 Verio Meter) lancets 33 gauge (OneTouch Delica 08/15/22 11/14/22 Lancets) omeprazole 40 mg capsule,delayed 40 mg PO BID 11/14/22 12/06/22 release Previous Rx's Medication Instructions Recorded blood pressure monitor (Blood #1 ea 10/31/21 Pressure Kit) BATH CHAIR #1 ea 01/31/22 CANE #1 ea 01/31/22 LIFELINE ALERT SYSTEM #1 ea 01/31/22 WRIST BRACE #1 ea 01/31/22 ALCOHOL PADS #100 ea 02/21/22 ROLLATOR #1 ea 05/23/22 food supplemt, lactose-reduced 1 ea PO TID 30 days #5,688 mL 05/23/22 (Ensure High Protein oral liquid) WRIST SPLINT Right and Left hand #1 ea 05/30/22 ENSURE once a day #90 ea 06/08/22 SHOWER BAR #1 ea 06/08/22 SHOWER WAND #1 ea 06/08/22 acetaminophen 160 mg/5 mL oral 500 mg (15.625 mL) PO QID PRN 06/26/22 suspension (Children's Tylenol) pain, temp 7 days #120 mL Bed pads #100 ea 07/17/22 Bedside commode #1 ea 07/17/22 SANITARY PADS #100 ea 07/17/22 fluticasone propionate 50 1 spray intranasal DAILY #100 mL 07/27/22 mcg/actuation nasal spray,suspension (Flonase Allergy Relief) Magic Mouthwash 5 ml PO .Q.a.c. #240 mL 07/29/22 Diphen/Lido/Antacid 1:1:1 240 mL suspension ondansetron 4 mg disintegrating 4 mg PO Q8H PRN nausea and 09/24/22 tablet vomiting #10 tabs simethicone 40 mg/0.6 mL oral 0.6 ml PO BID-TID PRN abdominal 11/08/22 drops,suspension distention #15 mL pantoprazole 40 mg granules 40 mg PO BID #60 packets 11/14/22 delayed-release for susp in packet sucralfate 100 mg/mL oral 5 ml PO QID #1,000 mL 11/21/22 suspension (Carafate) <Kaylie Choi NP - Last Filed: 12/11/22 11:09> Allergies/Adverse reactions: Allergies Allergy/AdvReac Type Severity Reaction Status Date / Time tomato [TOMATO] Allergy Mild HIVES Verified 12/11/22 11:06 DIFFICULTY BREATHING hydrocodone [HYDROCODONE] Allergy Unknown RASH, Verified 12/11/22 11:06 AIRWAY CLOSES ibuprofen [From MOTRIN] Allergy Unknown STOMACH Verified 12/11/22 11:06 UPSET, vomiting trazodone [TRAZODONE] Allergy Unknown UNKNOWN, Verified 12/11/22 11:06 stomach upset black pepper [BLACK PEPPER] AdvReac Severe DIFFICULTY Verified 12/11/22 11:06 BREATHING, hives lisinopril AdvReac Severe Anaphylaxis Verified 12/11/22 11:06 <Kaylie Choi NP - Last Filed: 12/11/22 11:09> FORMERLY [facility], [facility] Past Medical History Medical History: 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 Diverticulosis GERD (gastroesophageal reflux disease) History of bipolar disorder History of schizophrenia Hypercholesterolemia Hypertension Insomnia Numbness of left hand Renal calculi Spondylosis of lumbar spine Type 2 diabetes mellitus with hyperglycemia Vitamin D deficiency <Kaylie Choi NP - Last Filed: 12/11/22 11:09> Surgical History: Surgical History H/O: hysterectomy History of tubal ligation Hx of bariatric surgery <Kaylie Choi NP - Last Filed: 12/11/22 11:09> Family History Family History: Family History Father Medical history unknown Mother Medical history unknown Paternal Aunt Uterine cancer Diabetes Hypertension Paternal Uncle Liver cancer Heart attack Maternal Aunt Stroke Family/Other Chronic mental illness Sister Uterine cancer Schizophrenia Brother Substance abuse Other Mental health disorder <Kaylie Choi NP - Last Filed: 12/11/22 11:09> Social History Social History: Social History (Updated 12/06/22 @ 13:17 by MIKHAIL Genao) Household Members: None Housing: Apartment Do you presently have visiting nurse or other home services: Yes Alcohol intake: current Alcohol intake frequency: holidays/special occasions only Patient Tobacco Use Status: Never used Tobacco Smoked in Last 30 Days: No e-Cigarette/Vaping Use: Never Used Second Hand Smoke Exposure: No Use of substances other than those prescribed or required for medical reasons: No Advance Directives: No Advance Directives Information Provided: Yes service: No Current occupational status: disabled Current occupational exposures/hazards: No Cognitive needs: No Hearing needs: No Vision needs: No <Kaylie Choi NP - Last Filed: 12/11/22 11:09> Physical Exam Vital Signs: Vital Signs: Last Vital Signs Temp 98.0 F 12/11/22 11:21 Pulse 75 12/11/22 18:00 Resp 18 12/11/22 18:00 BP 106/68 12/11/22 18:00 Pulse Ox 97 12/11/22 18:00 O2 Del Method Room Air 12/11/22 18:00 BMI result Body Mass Index 19.1 <Kaylie Choi NP - Last Filed: 12/11/22 11:09> Vital Signs: Last Vital Signs Temp 98.0 F 12/11/22 11:21 Pulse 75 12/11/22 18:00 Resp 18 12/11/22 18:00 BP 106/68 12/11/22 18:00 Pulse Ox 97 12/11/22 18:00 O2 Del Method Room Air 12/11/22 18:00 BMI result Body Mass Index 19.1 <NOEL Castaneda - Last Filed: 12/11/22 16:28> Vital Signs: Last Vital Signs Temp 98.0 F 12/11/22 11:21 Pulse 75 12/11/22 18:00 Resp 18 12/11/22 18:00 BP 106/68 12/11/22 18:00 Pulse Ox 97 12/11/22 18:00 O2 Del Method Room Air 12/11/22 18:00 BMI result Body Mass Index 19.1 <NOEL Funes - Last Filed: 12/11/22 19:37> Course Course Course Narrative: This is a rapid medical exam. Deferred additional HPI, ROS, PE to primary provider. 42 yo female with history of schizophrenia, ETOH abuse, ovarian cyst, anemia, dysphasia, history of gastric sleeve at [facility]?complicated by malabsorption adrenal insufficiency, anxiety, GERD, HTN, HLD?here with complaints of vomiting, diarrhea, upper abdominal pain, difficulty swallowing x several days. Will obtain labs, UA, COVID screen. VSS <Kaylie Choi NP - Last Filed: 12/11/22 11:09> Reevaluation(s) Reevaluation #1: CT of the abdomen pelvis unremarkable. Patient will be discharged stable nausea and PCP follow-up. Educated patient on diagnosis and treatment plan, answered all question, patient verbalizes understanding. At this time patient will be discharged home, advised to return with new or worsening symptoms. Educated on worrisome signs and symptoms and when to return. At this time I feel comfortable discharge home. <NOEL Funes - Last Filed: 12/11/22 19:37> Time: 19:35 <NOEL Funes - Last Filed: 12/11/22 19:37> Medications Administered Discontinued Medications Generic Name Dose Route Start Last Admin Trade Name Freq PRN Reason Stop Dose Admin Sodium Chloride 1,000 mls @ 999 mls/hr 12/11/22 11:30 12/11/22 14:25 Ns IVCONT 12/11/22 12:30 Infused .Q1H1M OSBALDO Infusion Iohexol 85 ml 12/11/22 13:45 12/11/22 13:45 Iohexol 350 Mg/Ml 100 Ml Infus..Btl IV 12/11/22 13:46 85 ml ONCE ONE Administration Ketorolac Tromethamine 15 mg 12/11/22 15:20 12/11/22 15:25 Ketorolac Tromethamine 15 Mg/Ml Vial IVPUSH 12/11/22 15:21 15 mg ONCE ONE Administration Ondansetron HCl 4 mg 12/11/22 11:27 12/11/22 12:07 Ondansetron Hcl 4 Mg/2 Ml Vial IVPUSH 12/11/22 11:28 4 mg ONCE ONE Administration <Kaylie Choi NP - Last Filed: 12/11/22 11:09> Medications Administered Discontinued Medications Generic Name Dose Route Start Last Admin Trade Name Freq PRN Reason Stop Dose Admin Sodium Chloride 1,000 mls @ 999 mls/hr 12/11/22 11:30 12/11/22 14:25 Ns IVCONT 12/11/22 12:30 Infused .Q1H1M OSBALDO Infusion Iohexol 85 ml 12/11/22 13:45 12/11/22 13:45 Iohexol 350 Mg/Ml 100 Ml Infus..Btl IV 12/11/22 13:46 85 ml ONCE ONE Administration Ketorolac Tromethamine 15 mg 12/11/22 15:20 12/11/22 15:25 Ketorolac Tromethamine 15 Mg/Ml Vial IVPUSH 12/11/22 15:21 15 mg ONCE ONE Administration Ondansetron HCl 4 mg 12/11/22 11:27 12/11/22 12:07 Ondansetron Hcl 4 Mg/2 Ml Vial IVPUSH 12/11/22 11:28 4 mg ONCE ONE Administration <NOEL Castaneda - Last Filed: 12/11/22 16:28> Medications Administered Discontinued Medications Generic Name Dose Route Start Last Admin Trade Name Freq PRN Reason Stop Dose Admin Sodium Chloride 1,000 mls @ 999 mls/hr 12/11/22 11:30 12/11/22 14:25 Ns IVCONT 12/11/22 12:30 Infused .Q1H1M OSBALDO Infusion Iohexol 85 ml 12/11/22 13:45 12/11/22 13:45 Iohexol 350 Mg/Ml 100 Ml Infus..Btl IV 12/11/22 13:46 85 ml ONCE ONE Administration Ketorolac Tromethamine 15 mg 12/11/22 15:20 12/11/22 15:25 Ketorolac Tromethamine 15 Mg/Ml Vial IVPUSH 12/11/22 15:21 15 mg ONCE ONE Administration Ondansetron HCl 4 mg 12/11/22 11:27 12/11/22 12:07 Ondansetron Hcl 4 Mg/2 Ml Vial IVPUSH 12/11/22 11:28 4 mg ONCE ONE Administration <NOEL Funes - Last Filed: 12/11/22 19:37> Medical Decision Making Medical Decision Making MDM Narrative: 42 yo female with history of robotic gastric sleeve at [facility] one year ago complicated by malabsorption, adrenal insufficiency, anxiety, GERD, gastritis, esophagitis, significant weight loss and dysphagia, history of HTN, HLD, schizophrenia, ovarian cysts and anemia who presents to the ER for evaluation of a 4 days of N/V/D, lower abdominal pain and SOB. Symptoms are acute on chronic however she does have LLQ tenderness on examination so CT abd/pelvis was done. 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 <NOEL Castaneda - Last Filed: 12/11/22 16:28> Differential Diagnosis Differential Diagnoses: The differential diagnosis associated with the presentation includes <NOEL Castaneda - Last Filed: 12/11/22 16:28> gastritis, esophagitis, dysphagia, diverticulitis, doubt obstruction <NOEL Castaneda - Last Filed: 12/11/22 16:28> Admission/Observation Consideration of admission/observation: Escalation of care including admission/observation considered <NOEL Castaneda - Last Filed: 12/11/22 16:28> Lab Data MDM Lab Attestation statement: I reviewed the patient's lab results. <NOEL Castaneda - Last Filed: 12/11/22 16:28> Result Diagrams: 12/11/22 12:03 12/11/22 12:03 <Kaylie Choi NP - Last Filed: 12/11/22 11:09> Labs: Lab Results 12/11/22 12/11/22 12/11/22 Range/Units 11:14 12:03 12:03 WBC 5.5 (4.8-10.8) X10*3/uL RBC 4.03 L (4.20-5.50) X10*6/uL Hgb 11.9 L (12.0-16.0) g/dl Hct 35.5 L (37.0-47.0) % MCV 88.1 (80.0-98.0) fL MCH 29.5 (27.0-33.0) pg MCHC 33.5 (31.0-35.0) g/dl RDW 14.8 (11.0-16.0) % Plt Count 341 (160-400) X10*3/uL MPV 9.2 L (9.4-12.3) fL Immature Gran % (Auto) 0.4 (0.0-0.4) % Neut % (Auto) 65.0 (45-73) % Lymph % (Auto) 24.6 (20-40) % [place] % (Auto) 8.4 (2-11) % Eos % (Auto) 0.7 (0-4) % Baso % (Auto) 0.9 (0-2) % Lymph # (Auto) 1.3 (1.2-4.9) X10*3/uL [place] # (Auto) 0.5 (0.1-1.2) X10*3/uL Eos # (Auto) 0.0 (0.0-0.4) X10*3/uL Baso # (Auto) 0.1 (0.0-0.2) X10*3/uL Abs Immat Gran (auto) 0.02 (0.00-0.03) X10*3/uL Absolute Neuts (auto) 3.5 (2.0-8.3) x10*3/uL Absolute Nucleated RBC 0.000 (0.0-0.012) X10*3/uL Nucleated RBC % (auto) 0.0 (0.0-0.2) /100WBC Sodium 140 (135-145) mmol/L Potassium 4.1 (3.3-5.1) mmol/L Chloride 103 (96-108) mmol/L Carbon Dioxide 29 (22-29) mmol/L Anion Gap 12 (12-20) BUN 8 L (9-16) mg/dL Creatinine 0.63 (0.5-1.4) mg/dL Estim Creat Clear Calc 86.8 Estimated GFR > 60 POC Glucose (60-115) mg/dL Random Glucose 87 (60-115) mg/dL Calcium 9.0 (8.4-10.2) mg/dL Total Bilirubin 0.3 (0.0-1.0) mg/dL Direct Bilirubin 0.1 (0.0-0.5) mg/dL AST 13 (5-31) U/L ALT 10 (0-31) U/L Alkaline Phosphatase 57 (39-117) U/L Total Protein 6.5 (6.5-8.0) g/dL Albumin 4.2 (3.5-5.0) g/dL Lipase 15 (8-78) U/L Urine Color Urine Appearance Urine pH (5.0-9.0) Ur Specific [place] (1.005-1.025) Urine Protein (Neg-Trace) mg/dL Urine Glucose (UA) (Negative) mg/dL Urine Ketones (Negative) mg/dL Urine Blood (Negative) Urine Nitrite (Negative) Ur Leukocyte Esterase (Negative) COVID-19 (ANGELA) Negative (Negative) COVID-19 Clin Com See Note 12/11/22 12/11/22 12/11/22 Range/Units 12:13 12:46 14:33 WBC (4.8-10.8) X10*3/uL RBC (4.20-5.50) X10*6/uL Hgb (12.0-16.0) g/dl Hct (37.0-47.0) % MCV (80.0-98.0) fL MCH (27.0-33.0) pg MCHC (31.0-35.0) g/dl RDW (11.0-16.0) % Plt Count (160-400) X10*3/uL MPV (9.4-12.3) fL Immature Gran % (Auto) (0.0-0.4) % Neut % (Auto) (45-73) % Lymph % (Auto) (20-40) % [place] % (Auto) (2-11) % Eos % (Auto) (0-4) % Baso % (Auto) (0-2) % Lymph # (Auto) (1.2-4.9) X10*3/uL [place] # (Auto) (0.1-1.2) X10*3/uL Eos # (Auto) (0.0-0.4) X10*3/uL Baso # (Auto) (0.0-0.2) X10*3/uL Abs Immat Gran (auto) (0.00-0.03) X10*3/uL Absolute Neuts (auto) (2.0-8.3) x10*3/uL Absolute Nucleated RBC (0.0-0.012) X10*3/uL Nucleated RBC % (auto) (0.0-0.2) /100WBC Sodium (135-145) mmol/L Potassium (3.3-5.1) mmol/L Chloride (96-108) mmol/L Carbon Dioxide (22-29) mmol/L Anion Gap (12-20) BUN (9-16) mg/dL Creatinine (0.5-1.4) mg/dL Estim Creat Clear Calc Estimated GFR POC Glucose 46 L* 93 (60-115) mg/dL Random Glucose (60-115) mg/dL Calcium (8.4-10.2) mg/dL Total Bilirubin (0.0-1.0) mg/dL Direct Bilirubin (0.0-0.5) mg/dL AST (5-31) U/L ALT (0-31) U/L Alkaline Phosphatase (39-117) U/L Total Protein (6.5-8.0) g/dL Albumin (3.5-5.0) g/dL Lipase (8-78) U/L Urine Color Yellow Urine Appearance Turbid Urine pH 8.0 (5.0-9.0) Ur Specific [place] 1.020 (1.005-1.025) Urine Protein Trace (Neg-Trace) mg/dL Urine Glucose (UA) Negative (Negative) mg/dL Urine Ketones Negative (Negative) mg/dL Urine Blood Negative (Negative) Urine Nitrite Negative (Negative) Ur Leukocyte Esterase Negative (Negative) COVID-19 (ANGELA) (Negative) COVID-19 Clin Com 12/11/22 Range/Units 19:24 WBC (4.8-10.8) X10*3/uL RBC (4.20-5.50) X10*6/uL Hgb (12.0-16.0) g/dl Hct (37.0-47.0) % MCV (80.0-98.0) fL MCH (27.0-33.0) pg MCHC (31.0-35.0) g/dl RDW (11.0-16.0) % Plt Count (160-400) X10*3/uL MPV (9.4-12.3) fL Immature Gran % (Auto) (0.0-0.4) % Neut % (Auto) (45-73) % Lymph % (Auto) (20-40) % [place] % (Auto) (2-11) % Eos % (Auto) (0-4) % Baso % (Auto) (0-2) % Lymph # (Auto) (1.2-4.9) X10*3/uL [place] # (Auto) (0.1-1.2) X10*3/uL Eos # (Auto) (0.0-0.4) X10*3/uL Baso # (Auto) (0.0-0.2) X10*3/uL Abs Immat Gran (auto) (0.00-0.03) X10*3/uL Absolute Neuts (auto) (2.0-8.3) x10*3/uL Absolute Nucleated RBC (0.0-0.012) X10*3/uL Nucleated RBC % (auto) (0.0-0.2) /100WBC Sodium (135-145) mmol/L Potassium (3.3-5.1) mmol/L Chloride (96-108) mmol/L Carbon Dioxide (22-29) mmol/L Anion Gap (12-20) BUN (9-16) mg/dL Creatinine (0.5-1.4) mg/dL Estim Creat Clear Calc Estimated GFR POC Glucose 84 (60-115) mg/dL Random Glucose (60-115) mg/dL Calcium (8.4-10.2) mg/dL Total Bilirubin (0.0-1.0) mg/dL Direct Bilirubin (0.0-0.5) mg/dL AST (5-31) U/L ALT (0-31) U/L Alkaline Phosphatase (39-117) U/L Total Protein (6.5-8.0) g/dL Albumin (3.5-5.0) g/dL Lipase (8-78) U/L Urine Color Urine Appearance Urine pH (5.0-9.0) Ur Specific [place] (1.005-1.025) Urine Protein (Neg-Trace) mg/dL Urine Glucose (UA) (Negative) mg/dL Urine Ketones (Negative) mg/dL Urine Blood (Negative) Urine Nitrite (Negative) Ur Leukocyte Esterase (Negative) COVID-19 (ANGELA) (Negative) COVID-19 Clin Com <Kaylie Choi CRANK HAND - Last Filed: 12/11/22 11:09> Lab Results 12/11/22 12/11/22 12/11/22 Range/Units 11:14 12:03 12:03 WBC 5.5 (4.8-10.8) X10*3/uL RBC 4.03 L (4.20-5.50) X10*6/uL Hgb 11.9 L (12.0-16.0) g/dl Hct 35.5 L (37.0-47.0) % MCV 88.1 (80.0-98.0) fL MCH 29.5 (27.0-33.0) pg MCHC 33.5 (31.0-35.0) g/dl RDW 14.8 (11.0-16.0) % Plt Count 341 (160-400) X10*3/uL MPV 9.2 L (9.4-12.3) fL Immature Gran % (Auto) 0.4 (0.0-0.4) % Neut % (Auto) 65.0 (45-73) % Lymph % (Auto) 24.6 (20-40) % [place] % (Auto) 8.4 (2-11) % Eos % (Auto) 0.7 (0-4) % Baso % (Auto) 0.9 (0-2) % Lymph # (Auto) 1.3 (1.2-4.9) X10*3/uL [place] # (Auto) 0.5 (0.1-1.2) X10*3/uL Eos # (Auto) 0.0 (0.0-0.4) X10*3/uL Baso # (Auto) 0.1 (0.0-0.2) X10*3/uL Abs Immat Gran (auto) 0.02 (0.00-0.03) X10*3/uL Absolute Neuts (auto) 3.5 (2.0-8.3) x10*3/uL Absolute Nucleated RBC 0.000 (0.0-0.012) X10*3/uL Nucleated RBC % (auto) 0.0 (0.0-0.2) /100WBC Sodium 140 (135-145) mmol/L Potassium 4.1 (3.3-5.1) mmol/L Chloride 103 (96-108) mmol/L Carbon Dioxide 29 (22-29) mmol/L Anion Gap 12 (12-20) BUN 8 L (9-16) mg/dL Creatinine 0.63 (0.5-1.4) mg/dL Estim Creat Clear Calc 86.8 Estimated GFR > 60 POC Glucose (60-115) mg/dL Random Glucose 87 (60-115) mg/dL Calcium 9.0 (8.4-10.2) mg/dL Total Bilirubin 0.3 (0.0-1.0) mg/dL Direct Bilirubin 0.1 (0.0-0.5) mg/dL AST 13 (5-31) U/L ALT 10 (0-31) U/L Alkaline Phosphatase 57 (39-117) U/L Total Protein 6.5 (6.5-8.0) g/dL Albumin 4.2 (3.5-5.0) g/dL Lipase 15 (8-78) U/L Urine Color Urine Appearance Urine pH (5.0-9.0) Ur Specific [place] (1.005-1.025) Urine Protein (Neg-Trace) mg/dL Urine Glucose (UA) (Negative) mg/dL Urine Ketones (Negative) mg/dL Urine Blood (Negative) Urine Nitrite (Negative) Ur Leukocyte Esterase (Negative) COVID-19 (ANGELA) Negative (Negative) COVID-19 Clin Com See Note 12/11/22 12/11/22 12/11/22 Range/Units 12:13 12:46 14:33 WBC (4.8-10.8) X10*3/uL RBC (4.20-5.50) X10*6/uL Hgb (12.0-16.0) g/dl Hct (37.0-47.0) % MCV (80.0-98.0) fL MCH (27.0-33.0) pg MCHC (31.0-35.0) g/dl RDW (11.0-16.0) % Plt Count (160-400) X10*3/uL MPV (9.4-12.3) fL Immature Gran % (Auto) (0.0-0.4) % Neut % (Auto) (45-73) % Lymph % (Auto) (20-40) % [place] % (Auto) (2-11) % Eos % (Auto) (0-4) % Baso % (Auto) (0-2) % Lymph # (Auto) (1.2-4.9) X10*3/uL [place] # (Auto) (0.1-1.2) X10*3/uL Eos # (Auto) (0.0-0.4) X10*3/uL Baso # (Auto) (0.0-0.2) X10*3/uL Abs Immat Gran (auto) (0.00-0.03) X10*3/uL Absolute Neuts (auto) (2.0-8.3) x10*3/uL Absolute Nucleated RBC (0.0-0.012) X10*3/uL Nucleated RBC % (auto) (0.0-0.2) /100WBC Sodium (135-145) mmol/L Potassium (3.3-5.1) mmol/L Chloride (96-108) mmol/L Carbon Dioxide (22-29) mmol/L Anion Gap (12-20) BUN (9-16) mg/dL Creatinine (0.5-1.4) mg/dL Estim Creat Clear Calc Estimated GFR POC Glucose 46 L* 93 (60-115) mg/dL Random Glucose (60-115) mg/dL Calcium (8.4-10.2) mg/dL Total Bilirubin (0.0-1.0) mg/dL Direct Bilirubin (0.0-0.5) mg/dL AST (5-31) U/L ALT (0-31) U/L Alkaline Phosphatase (39-117) U/L Total Protein (6.5-8.0) g/dL Albumin (3.5-5.0) g/dL Lipase (8-78) U/L Urine Color Yellow Urine Appearance Turbid Urine pH 8.0 (5.0-9.0) Ur Specific [place] 1.020 (1.005-1.025) Urine Protein Trace (Neg-Trace) mg/dL Urine Glucose (UA) Negative (Negative) mg/dL Urine Ketones Negative (Negative) mg/dL Urine Blood Negative (Negative) Urine Nitrite Negative (Negative) Ur Leukocyte Esterase Negative (Negative) COVID-19 (ANGELA) (Negative) COVID-19 Clin Com 12/11/22 Range/Units 19:24 WBC (4.8-10.8) X10*3/uL RBC (4.20-5.50) X10*6/uL Hgb (12.0-16.0) g/dl Hct (37.0-47.0) % MCV (80.0-98.0) fL MCH (27.0-33.0) pg MCHC (31.0-35.0) g/dl RDW (11.0-16.0) % Plt Count (160-400) X10*3/uL MPV (9.4-12.3) fL Immature Gran % (Auto) (0.0-0.4) % Neut % (Auto) (45-73) % Lymph % (Auto) (20-40) % [place] % (Auto) (2-11) % Eos % (Auto) (0-4) % Baso % (Auto) (0-2) % Lymph # (Auto) (1.2-4.9) X10*3/uL [place] # (Auto) (0.1-1.2) X10*3/uL Eos # (Auto) (0.0-0.4) X10*3/uL Baso # (Auto) (0.0-0.2) X10*3/uL Abs Immat Gran (auto) (0.00-0.03) X10*3/uL Absolute Neuts (auto) (2.0-8.3) x10*3/uL Absolute Nucleated RBC (0.0-0.012) X10*3/uL Nucleated RBC % (auto) (0.0-0.2) /100WBC Sodium (135-145) mmol/L Potassium (3.3-5.1) mmol/L Chloride (96-108) mmol/L Carbon Dioxide (22-29) mmol/L Anion Gap (12-20) BUN (9-16) mg/dL Creatinine (0.5-1.4) mg/dL Estim Creat Clear Calc Estimated GFR POC Glucose 84 (60-115) mg/dL Random Glucose (60-115) mg/dL Calcium (8.4-10.2) mg/dL Total Bilirubin (0.0-1.0) mg/dL Direct Bilirubin (0.0-0.5) mg/dL AST (5-31) U/L ALT (0-31) U/L Alkaline Phosphatase (39-117) U/L Total Protein (6.5-8.0) g/dL Albumin (3.5-5.0) g/dL Lipase (8-78) U/L Urine Color Urine Appearance Urine pH (5.0-9.0) Ur Specific [place] (1.005-1.025) Urine Protein (Neg-Trace) mg/dL Urine Glucose (UA) (Negative) mg/dL Urine Ketones (Negative) mg/dL Urine Blood (Negative) Urine Nitrite (Negative) Ur Leukocyte Esterase (Negative) COVID-19 (ANGELA) (Negative) COVID-19 Clin Com <NOEL Castaneda - Last Filed: 12/11/22 16:28> Lab Results 12/11/22 12/11/22 12/11/22 Range/Units 11:14 12:03 12:03 WBC 5.5 (4.8-10.8) X10*3/uL RBC 4.03 L (4.20-5.50) X10*6/uL Hgb 11.9 L (12.0-16.0) g/dl Hct 35.5 L (37.0-47.0) % MCV 88.1 (80.0-98.0) fL MCH 29.5 (27.0-33.0) pg MCHC 33.5 (31.0-35.0) g/dl RDW 14.8 (11.0-16.0) % Plt Count 341 (160-400) X10*3/uL MPV 9.2 L (9.4-12.3) fL Immature Gran % (Auto) 0.4 (0.0-0.4) % Neut % (Auto) 65.0 (45-73) % Lymph % (Auto) 24.6 (20-40) % [place] % (Auto) 8.4 (2-11) % Eos % (Auto) 0.7 (0-4) % Baso % (Auto) 0.9 (0-2) % Lymph # (Auto) 1.3 (1.2-4.9) X10*3/uL [place] # (Auto) 0.5 (0.1-1.2) X10*3/uL Eos # (Auto) 0.0 (0.0-0.4) X10*3/uL Baso # (Auto) 0.1 (0.0-0.2) X10*3/uL Abs Immat Gran (auto) 0.02 (0.00-0.03) X10*3/uL Absolute Neuts (auto) 3.5 (2.0-8.3) x10*3/uL Absolute Nucleated RBC 0.000 (0.0-0.012) X10*3/uL Nucleated RBC % (auto) 0.0 (0.0-0.2) /100WBC Sodium 140 (135-145) mmol/L Potassium 4.1 (3.3-5.1) mmol/L Chloride 103 (96-108) mmol/L Carbon Dioxide 29 (22-29) mmol/L Anion Gap 12 (12-20) BUN 8 L (9-16) mg/dL Creatinine 0.63 (0.5-1.4) mg/dL Estim Creat Clear Calc 86.8 Estimated GFR > 60 POC Glucose (60-115) mg/dL Random Glucose 87 (60-115) mg/dL Calcium 9.0 (8.4-10.2) mg/dL Total Bilirubin 0.3 (0.0-1.0) mg/dL Direct Bilirubin 0.1 (0.0-0.5) mg/dL AST 13 (5-31) U/L ALT 10 (0-31) U/L Alkaline Phosphatase 57 (39-117) U/L Total Protein 6.5 (6.5-8.0) g/dL Albumin 4.2 (3.5-5.0) g/dL Lipase 15 (8-78) U/L Urine Color Urine Appearance Urine pH (5.0-9.0) Ur Specific [place] (1.005-1.025) Urine Protein (Neg-Trace) mg/dL Urine Glucose (UA) (Negative) mg/dL Urine Ketones (Negative) mg/dL Urine Blood (Negative) Urine Nitrite (Negative) Ur Leukocyte Esterase (Negative) COVID-19 (ANGELA) Negative (Negative) COVID-19 Clin Com See Note 12/11/22 12/11/22 12/11/22 Range/Units 12:13 12:46 14:33 WBC (4.8-10.8) X10*3/uL RBC (4.20-5.50) X10*6/uL Hgb (12.0-16.0) g/dl Hct (37.0-47.0) % MCV (80.0-98.0) fL MCH (27.0-33.0) pg MCHC (31.0-35.0) g/dl RDW (11.0-16.0) % Plt Count (160-400) X10*3/uL MPV (9.4-12.3) fL Immature Gran % (Auto) (0.0-0.4) % Neut % (Auto) (45-73) % Lymph % (Auto) (20-40) % [place] % (Auto) (2-11) % Eos % (Auto) (0-4) % Baso % (Auto) (0-2) % Lymph # (Auto) (1.2-4.9) X10*3/uL [place] # (Auto) (0.1-1.2) X10*3/uL Eos # (Auto) (0.0-0.4) X10*3/uL Baso # (Auto) (0.0-0.2) X10*3/uL Abs Immat Gran (auto) (0.00-0.03) X10*3/uL Absolute Neuts (auto) (2.0-8.3) x10*3/uL Absolute Nucleated RBC (0.0-0.012) X10*3/uL Nucleated RBC % (auto) (0.0-0.2) /100WBC Sodium (135-145) mmol/L Potassium (3.3-5.1) mmol/L Chloride (96-108) mmol/L Carbon Dioxide (22-29) mmol/L Anion Gap (12-20) BUN (9-16) mg/dL Creatinine (0.5-1.4) mg/dL Estim Creat Clear Calc Estimated GFR POC Glucose 46 L* 93 (60-115) mg/dL Random Glucose (60-115) mg/dL Calcium (8.4-10.2) mg/dL Total Bilirubin (0.0-1.0) mg/dL Direct Bilirubin (0.0-0.5) mg/dL AST (5-31) U/L ALT (0-31) U/L Alkaline Phosphatase (39-117) U/L Total Protein (6.5-8.0) g/dL Albumin (3.5-5.0) g/dL Lipase (8-78) U/L Urine Color Yellow Urine Appearance Turbid Urine pH 8.0 (5.0-9.0) Ur Specific [place] 1.020 (1.005-1.025) Urine Protein Trace (Neg-Trace) mg/dL Urine Glucose (UA) Negative (Negative) mg/dL Urine Ketones Negative (Negative) mg/dL Urine Blood Negative (Negative) Urine Nitrite Negative (Negative) Ur Leukocyte Esterase Negative (Negative) COVID-19 (ANGELA) (Negative) COVID-19 Clin Com 12/11/22 Range/Units 19:24 WBC (4.8-10.8) X10*3/uL RBC (4.20-5.50) X10*6/uL Hgb (12.0-16.0) g/dl Hct (37.0-47.0) % MCV (80.0-98.0) fL MCH (27.0-33.0) pg MCHC (31.0-35.0) g/dl RDW (11.0-16.0) % Plt Count (160-400) X10*3/uL MPV (9.4-12.3) fL Immature Gran % (Auto) (0.0-0.4) % Neut % (Auto) (45-73) % Lymph % (Auto) (20-40) % [place] % (Auto) (2-11) % Eos % (Auto) (0-4) % Baso % (Auto) (0-2) % Lymph # (Auto) (1.2-4.9) X10*3/uL [place] # (Auto) (0.1-1.2) X10*3/uL Eos # (Auto) (0.0-0.4) X10*3/uL Baso # (Auto) (0.0-0.2) X10*3/uL Abs Immat Gran (auto) (0.00-0.03) X10*3/uL Absolute Neuts (auto) (2.0-8.3) x10*3/uL Absolute Nucleated RBC (0.0-0.012) X10*3/uL Nucleated RBC % (auto) (0.0-0.2) /100WBC Sodium (135-145) mmol/L Potassium (3.3-5.1) mmol/L Chloride (96-108) mmol/L Carbon Dioxide (22-29) mmol/L Anion Gap (12-20) BUN (9-16) mg/dL Creatinine (0.5-1.4) mg/dL Estim Creat Clear Calc Estimated GFR POC Glucose 84 (60-115) mg/dL Random Glucose (60-115) mg/dL Calcium (8.4-10.2) mg/dL Total Bilirubin (0.0-1.0) mg/dL Direct Bilirubin (0.0-0.5) mg/dL AST (5-31) U/L ALT (0-31) U/L Alkaline Phosphatase (39-117) U/L Total Protein (6.5-8.0) g/dL Albumin (3.5-5.0) g/dL Lipase (8-78) U/L Urine Color Urine Appearance Urine pH (5.0-9.0) Ur Specific [place] (1.005-1.025) Urine Protein (Neg-Trace) mg/dL Urine Glucose (UA) (Negative) mg/dL Urine Ketones (Negative) mg/dL Urine Blood (Negative) Urine Nitrite (Negative) Ur Leukocyte Esterase (Negative) COVID-19 (ANGELA) (Negative) COVID-19 Clin Com <NOEL Funes - Last Filed: 12/11/22 19:37> Independent Interpretation I performed an independent interpretation of an: CT Scan <NOEL Castaneda Last Filed: 12/11/22 16:28> Radiology Impression Discussion of test interpretation with radiology: I have reviewed the radiologist's reading. 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 Dimas to arrange close follow up Continue the strict diet & medication regimen recommended by Jodee If you develop new or worsening symptoms call 911 or come back to the ER for further evaluation. CT/CT abdomen pelvis w IV con IMPRESSION: No acute intra-abdominal process seen. ? Scattered diverticula and gas in colon without distention. ? No major change compared to previous study 10/23/2022. ? Fleischner guidelines were followed. <Kaylie Choi NP - Last Filed: 12/11/22 11:09> Prescriptions: No Action (DME) blood pressure monitor [Blood Pressure Kit] Kit See Rx Instructions .Route Qty: 1 0RF Rx Instructions: As directed (DME) CANE See Rx Instructions .Route .MEDSUPPLY Qty: 1 0RF Rx Instructions: As directed (DME) WRIST BRACE See Rx Instructions .Route .MEDSUPPLY Qty: 1 0RF Rx Instructions: As directed (DME) BATH CHAIR See Rx Instructions .Route .MEDSUPPLY Qty: 1 0RF Rx Instructions: As directed (DME) LIFELINE ALERT SYSTEM See Rx Instructions .Route .MEDSUPPLY Qty: 1 0RF Rx Instructions: As directed (DME) ALCOHOL PADS See Rx Instructions .Route .MEDSUPPLY Qty: 100 3RF Rx Instructions: As directed (DME) ROLLATOR See Rx Instructions .Route .MEDSUPPLY Qty: 1 0RF Rx Instructions: As directed Ensure High Protein Liquid 1 ea PO TID 30 Days Qty: 5688 0RF (DME) WRIST SPLINT Right and Left hand See Rx Instructions .Route .MEDSUPPLY Qty: 1 0RF Rx Instructions: As directed (DME) SHOWER WAND See Rx Instructions .Route .MEDSUPPLY Qty: 1 0RF Rx Instructions: As directed (DME) SHOWER BAR See Rx Instructions .Route .MEDSUPPLY Qty: 1 0RF Rx Instructions: As directed (DME) ENSURE once a day See Rx Instructions .Route .MEDSUPPLY Qty: 90 0RF Rx Instructions: As directed acetaminophen [Children's Tylenol] 160 mg/5 mL suspension 500 mg PO QID PRN (Reason: pain, temp) 7 Days Qty: 120 0RF (DME) Bedside commode See Rx Instructions .Route .MEDSUPPLY Qty: 1 0RF Rx Instructions: As directed (DME) Bed pads See Rx Instructions .Route .MEDSUPPLY Qty: 100 12RF Rx Instructions: As directed (DME) SANITARY PADS See Rx Instructions .Route .MEDSUPPLY Qty: 100 12RF Rx Instructions: As directed simethicone 40 mg/0.6 mL drops,suspension 0.6 ml PO BID-TID PRN (Reason: abdominal distention) Qty: 15 0RF Magic Mouthwash Diphen/Lido/Antacid 1:1:1 240 mL suspension 5 ml PO .Q.a.c. Qty: 240 1RF Rx Instructions: Lidocaine Viscous 2 % 80mL; diphenhydramine 12.5 mg/5 mL 80mL; aluminum-mag hydrox-simeth [id number]/5mL 80mL. 5-10 mL gargle and swallow up to 4 times a day ondansetron 4 mg tablet,disintegrating 4 mg PO Q8H PRN (Reason: nausea and vomiting) Qty: 10 0RF sucralfate [Carafate] 100 mg/mL suspension 5 ml PO QID Qty: 1000 0RF Rx Instructions: swish in mouth and swallow; use after food/drink fluticasone propionate [Flonase Allergy Relief] 50 mcg/actuation spray,suspension 1 spray intranasal DAILY Qty: 100 0RF Rx Instructions: administer into each nostril (DME) blood-glucose meter [OneTouch Verio Meter] Misc See Rx Instructions .Route Rx Instructions: As directed (DME) OneTouch Verio test strips Strip See Rx Instructions .Route Rx Instructions: As directed 3 times a day (DME) lancets [OneTouch Delica Lancets] 33 gauge misc See Rx Instructions .Route Rx Instructions: As directed 3 times a day omeprazole 40 mg capsule,delayed release(DR/EC) 40 mg PO BID pantoprazole [address] for susp in packet 40 mg PO BID Qty: 60 5RF <Kaylie Choi NP - Last Filed: 12/11/22 11:09> Referrals: Po,Deirdre Raymundo MD [Primary Care Provider] - 2 days Carlos Multani MD [Physician] - 1 day <Kaylie Choi NP - Last Filed: 12/11/22 11:09> Stand Alone Forms: Work/School Release <Kaylie Choi NP - Last Filed: 12/11/22 11:09>
[2022-12-11 11:06] VITALS: BP 134/83; PULSE 83; RESP 18; TEMP 36.7; O2SAT 96; BMI 19.1
[2022-12-11 11:21] VITALS: BP 123/77; PULSE 63; RESP 18; TEMP 36.7; O2SAT 100
[2022-12-11 11:34] LABS: COVID-19 Test Negative (Negative); IDNOW Serial# 9DB6401D
[2022-12-11 12:00] VITALS: BP 127/86; PULSE 65; RESP 18; O2SAT 98
[2022-12-11 12:06] LABS: MANUAL DIFF FLAG NO
[2022-12-11] MEDS: ondansetron HCL 4 MG/2 ML VIAL IVPUSH (12:07)
[2022-12-11] MEDS: 0.9 % Sodium Chloride 1,000 ML 999 ML IVCONT (12:07)
[2022-12-11 12:08] LABS: Basophils Absolute Auto 0.1 X10*3/uL (0.0-0.2); Basophils Percent Auto 0.9 % (0-2); Eosinophils Percent Auto 0.7 % (0-4); Hematocrit 35.5 % (37.0-47.0); Hemoglobin 11.9 g/dl (12.0-16.0); Imm Gran Abs Auto 0.02 X10*3/uL (0.00-0.03); Imm Gran Pct Auto 0.4 % (0.0-0.4); Lymphocytes Absolute Auto 1.3 X10*3/uL (1.2-4.9); Lymphocytes Percent Auto 24.6 % (20-40); Mean Corpuscular HGB Conc 33.5 g/dl (31.0-35.0); Mean Corpuscular Hemoglobin 29.5 pg (27.0-33.0); Mean Corpuscular Volume 88.1 fL (80.0-98.0); Mean Platelet Volume 9.2 fL (9.4-12.3); Monocytes Absolute Auto 0.5 X10*3/uL (0.1-1.2); Monocytes Percent Auto 8.4 % (2-11); Neutrophils Absolute Auto 3.5 x10*3/uL (2.0-8.3); Platelet Count 341 X10*3/uL (160-400); Red Blood Count 4.03 X10*6/uL (4.20-5.50); Red Cell Distribution Width 14.8 % (11.0-16.0); White Blood Count 5.5 X10*3/uL (4.8-10.8)
--- NOTE | 2022-12-11 12:10 | PC.NURSE ---
pt alert, oriented. reporting nausea and vomiting x4 days. IV inserted and labs drawn, fluids infusing and zofran given per SEP will CTM
[2022-12-11 12:27] LABS: Alanine Aminotransferase 10 U/L (0-31); Albumin Level 4.2 g/dL (3.5-5.0); Alkaline Phosphatase 57 U/L (39-117); Anion Gap 12 (12-20); Aspartate Amino Transferase 13 U/L (5-31); Bilirubin Direct 0.1 mg/dL (0.0-0.5); Bilirubin Total 0.3 mg/dL (0.0-1.0); Blood Urea Nitrogen 8 mg/dL (9-16); Carbon Dioxide 29 mmol/L (22-29); Chloride 103 mmol/L (96-108); Creatinine Clr Calc Pharmacy 86.8; Estimated Glomerular Filt Rate > 60; Glucose Random 87 mg/dL (60-115); Lipase 15 U/L (8-78); Potassium 4.1 mmol/L (3.3-5.1); Sodium 140 mmol/L (135-145); Total Protein 6.5 g/dL (6.5-8.0)
[2022-12-11 12:35] LABS: Appearance Urine Turbid; Color Urine Yellow; Glucose Urine UA Negative (Negative); Leukocyte Esterase Urine Negative (Negative); Nitrite Urine Negative (Negative); Urine Blood Negative (Negative); Urine Ketones Negative (Negative); Urine Protein Trace mg/dL (Neg-Trace)
[2022-12-11 12:50] LABS: Glucose, Whole Blood 46 mg/dL (60-115)
--- NOTE | 2022-12-11 12:50 | PC.NURSE ---
pt is prone to hypoglycemia. POC 49. vanilla pudding given. will recheck
[2022-12-11] MEDS: iohexoL 350 MG/ML 100 ML INFUS..BTL 85 ML IV (13:45)
[2022-12-11 14:00] VITALS: BP 127/75; PULSE 97; RESP 18; O2SAT 97
--- NOTE | 2022-12-11 14:31 | PC.NURSE ---
pt reports persistant dry mouth for several days after starting to take Sucrlafate. Pt says that sometimes mouth is so dry that it makes breathing difficult
[2022-12-11 14:36] LABS: Glucose, Whole Blood 93 mg/dL (60-115)
[2022-12-11] MEDS: Ketorolac Tromethamine 15 MG/ML VIAL IVPUSH ×2 (15:25→19:59)
[2022-12-11 18:00] VITALS: BP 106/68; PULSE 75; RESP 18; O2SAT 97
--- NOTE | 2022-12-11 19:28 | PC.NURSE ---
pt in no apparent distress, pt brought a snack
[2022-12-11 19:29] LABS: Glucose, Whole Blood 84 mg/dL (60-115)
== END 2022-12-11 20:04 | disposition home or self-care (01) ==
PROVIDERS: Nurse Practitioner Family; Emergency Provider Student in an Organized Health Care Education/Training Program; PCP Internal Medicine
DX: R10.32 Left lower quadrant pain (principal); R11.2 Nausea with vomiting, unspecified; Z98.84 Bariatric surgery status; Z20.822 Contact with and (suspected) exposure to COVID-19; Z20.828 Contact with and (suspected) exposure to other viral communicable diseases; Z79.899 Other long term (current) drug therapy
CPT/HCPCS: 74177; 80048; 80076; 81003; 82947; 83690; 85025; 87635; 96361; 96374; 96375; 96376; 99284; 99285; J1885; J2405; Q9967

== ENCOUNTER → 2022-12-21 14:03 | Outpatient (BNVA) | payer OTHER, SELFPAY | PROVIDERS: PCP Internal Medicine; Visit Provider Obstetrics & Gynecology | DX: N83.292 Other ovarian cyst, left side (principal); Z90.710 Acquired absence of both cervix and uterus; Z98.84 Bariatric surgery status | CPT/HCPCS: 99212 ==

== ENCOUNTER 2022-12-29 07:01 | Emergency (ER) | payer OTHER, SELFPAY ==
[2022-12-29 07:11] VITALS: BP 132/92; PULSE 68; RESP 16; TEMP 36.7; O2SAT 96; BMI 18.8
--- NOTE | 2022-12-29 07:48 | ED_ITS ---
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 Patient with gastric sleeve 1 year ago and since then she has had gastritis and esophageal reflux, 3 days for vomiting. Patient is very anxious. ONe month ago she had endoscopy with Dr. Houser. She had and esophageal stricture. MD elicited complaint: abdominal pain Pertinent past history: gastritis Onset (ago): month(s) Pain Consistency: constant Severity: moderate Quality: cramping Related Data Home Medications Medication Instructions Recorded Confirmed blood sugar diagnostic (OneTouch 08/15/22 11/14/22 Verio test strips) blood-glucose meter (OneTouch 08/15/22 11/14/22 Verio Meter) lancets 33 gauge (OneTouch Delica 08/15/22 11/14/22 Lancets) Previous Rx's Medication Instructions Recorded blood pressure monitor (Blood #1 ea 10/31/21 Pressure Kit) BATH CHAIR #1 ea 01/31/22 CANE #1 ea 01/31/22 LIFELINE ALERT SYSTEM #1 ea 01/31/22 WRIST BRACE #1 ea 01/31/22 ALCOHOL PADS #100 ea 02/21/22 ROLLATOR #1 ea 05/23/22 food supplemt, lactose-reduced 1 ea PO TID 30 days #5,688 mL 05/23/22 (Ensure High Protein oral liquid) WRIST SPLINT Right and Left hand #1 ea 05/30/22 ENSURE once a day #90 ea 06/08/22 SHOWER BAR #1 ea 06/08/22 SHOWER WAND #1 ea 06/08/22 Bed pads #100 ea 07/17/22 Bedside commode #1 ea 07/17/22 SANITARY PADS #100 ea 07/17/22 fluticasone propionate 50 1 spray intranasal DAILY #100 mL 07/27/22 mcg/actuation nasal spray,suspension (Flonase Allergy Relief) simethicone 40 mg/0.6 mL oral 0.6 ml PO BID-TID PRN abdominal 11/08/22 drops,suspension distention #15 mL pantoprazole 40 mg granules 40 mg PO BID #60 packets 11/14/22 delayed-release for susp in packet sucralfate 100 mg/mL oral 5 ml PO QID #1,000 mL 11/21/22 suspension (Carafate) Allergies Allergy/AdvReac Type Severity Reaction Status Date / Time tomato [TOMATO] Allergy Mild HIVES Verified 12/21/22 14:13 DIFFICULTY BREATHING hydrocodone [HYDROCODONE] Allergy Unknown RASH, Verified 12/21/22 14:13 AIRWAY CLOSES ibuprofen [From MOTRIN] Allergy Unknown STOMACH Verified 12/21/22 14:13 UPSET, vomiting trazodone [TRAZODONE] Allergy Unknown UNKNOWN, Verified 12/21/22 14:13 stomach upset black pepper [BLACK PEPPER] AdvReac Severe DIFFICULTY Verified 12/21/22 14:13 BREATHING, hives lisinopril AdvReac Severe Anaphylaxis Verified 12/21/22 14:13 Review of Systems Review of Systems Yes all other systems are reviewed and are negative Gastrointestinal: Reports abdominal pain and Reports belching PMFSH Past Medical History 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 Diverticulosis GERD (gastroesophageal reflux disease) History of bipolar disorder History of schizophrenia Hypercholesterolemia Hypertension Insomnia Numbness of left hand Renal calculi Spondylosis of lumbar spine Type 2 diabetes mellitus with hyperglycemia Vitamin D deficiency Surgical History H/O: hysterectomy History of tubal ligation Hx of bariatric surgery Family History Family History Father Medical history unknown Mother Medical history unknown Paternal Aunt Uterine cancer Diabetes Hypertension Paternal Uncle Liver cancer Heart attack Maternal Aunt Stroke Family/Other Chronic mental illness Sister Uterine cancer Schizophrenia Brother Substance abuse Other Mental health disorder Social History Social History Household Members: None Housing: Apartment Do you presently have visiting nurse or other home services: Yes Alcohol intake: current Alcohol intake frequency: holidays/special occasions only Patient Tobacco Use Status: Never used Tobacco e-Cigarette/Vaping Use: Never Used Second Hand Smoke Exposure: No Advance Directives: No Advance Directives Information Provided: No service: No Current occupational status: disabled Current occupational exposures/hazards: No Cognitive needs: No Hearing needs: No Vision needs: No Physical Exam ED Vital Signs: Vital Signs - 24 hr 12/29/22 07:11 12/29/22 10:03 Temperature 98.1 F 98.1 F Pulse Rate 68 85 Respiratory Rate 16 16 Blood Pressure 132/92 H 155/101 H Pulse Oximetry 96 100 Oxygen Delivery Method Room Air Room Air BMI result Body Mass Index 18.8 Const Other: Anxious thin female tearful Nutritional Appearance: average body habitus Orientation/consciousness: oriented to person and patient oriented x3 Limitations: no limitations HENMT Head: Yes normal to inspection Ears: external ears normal General nose exam: Normal external nose present Mouth: Normal oral and palatal mucosa present and oropharynx normal Throat: Yes posterior oropharynx normal Eyes General: appearance normal, both eyes and all related structures Neck Neck: Yes normal visual inspection Chest Chest palpation & inspection: normal inspection of the chest Resp Auscultation: clear to auscultation bilaterally Cardio Jugular venous distension: no JVD Rate: regular rate Rhythm: regular rhythm Heart sounds: S1 normal heart sound present and S2 normal heart sound present GI Other: soft diffuse tenderness, non focal Palpation (GI): Soft to palpation and No hepatosplenomegaly present Auscultation: normal bowel sounds General: Yes no CVA tenderness Back/Spine/Pelvis Back: no CVA tenderness Skin General skin exam: no rashes or lesions noted Neuro General: oriented to person and patient oriented x3 Cranial nerves: Yes CN's II-XII intact bilaterally Motor exam (neuro): 5/5 motor strength present throughout Extrem General: Yes normal to inspection Psych Appearance: grossly normal Course Reevaluation(s) Reevaluation #1: Labs normal patient more calm will discharge Time: 10:41 Medical Decision Making Differential Diagnosis Differential Diagnoses: The differential diagnosis associated with the presentation includes (gastritis, esophagitis, pancreatitis all considered) Admission/Observation Consideration of admission/observation: Escalation of care including admis becca/observation considered (In this complicated patient with multiple issues after gastric sleeve, admission was considered) Consult Healthcare Provider Management of the patient was discussed with: Candy Bar Attendant (Rose Ventura from [facility]) Lab Data MDM Lab Attestation statement: I reviewed the patient's lab results. 12/29/22 08:39 12/29/22 08:39 Labs: Lab Results 12/29/22 12/29/2212/29/23 Range/Units 08:39 08:39 10:07 WBC 4.7 L (4.8-10.8) X10*3/uL RBC 3.98 L (4.20-5.50) X10*6/uL Hgb 12.0 (12.0-16.0) g/dl Hct 35.7 L (37.0-47.0) % MCV 89.7 (80.0-98.0) fL MCH 30.2 (27.0-33.0) pg MCHC 33.6 (31.0-35.0) g/dl RDW 13.2 (11.0-16.0) % Plt Count 302 (160-400) X10*3/uL MPV 9.6 (9.4-12.3) fL Immature Gran % (Auto) 0.2 (0.0-0.4) % Neut % (Auto) 50.5 (45-73) % Lymph % (Auto) 39.2 (20-40) % [place] % (Auto) 7.8 (2-11) % Eos % (Auto) 1.5 (0-4) % Baso % (Auto) 0.8 (0-2) % Lymph # (Auto) 1.9 (1.2-4.9) X10*3/uL [place] # (Auto) 0.4 (0.1-1.2) X10*3/uL Eos # (Auto) 0.1 (0.0-0.4) X10*3/uL Baso # (Auto) 0.0 (0.0-0.2) X10*3/uL Abs Immat Gran (auto) 0.01 (0.00-0.03) X10*3/uL Absolute Neuts (auto) 2.4 (2.0-8.3) x10*3/uL Absolute Nucleated RBC 0.000 (0.0-0.012) X10*3/uL Nucleated RBC % (auto) 0.0 (0.0-0.2) /100WBC Sodium 139 (135-145) mmol/L Potassium 5.0 D (3.3-5.1) mmol/L Chloride 107 (96-108) mmol/L Carbon Dioxide 25 (22-29) mmol/L Anion Gap 12 (12-20) BUN 11 (9-16) mg/dL Creatinine 0.68 (0.5-1.4) mg/dL Estim Creat Clear Calc 79.5 Estimated GFR > 60 POC Glucose 83 (60-115) mg/dL Random Glucose 83 (60-115) mg/dL Calcium 9.1 (8.4-10.2) mg/dL Total Bilirubin 0.3 (0.0-1.0) mg/dL AST 17 (5-31) U/L ALT 9 (0-31) U/L Alkaline Phosphatase 52 (39-117) U/L Total Protein 7.0 (6.5-8.0) g/dL Albumin 4.2 (3.5-5.0) g/dL Lipase 19 (8-78) U/L Tests considered The following testing was considered but not selected: I considered obtaining a CT of abd/pelvis but patient with mulitple imaging, no fever, no lab abnormalities Chronic Conditions Patient?s care impacted by: Diabetes and Other (gastric sleeve, esophagitis) Medications Administered Discontinued Medications Generic Name Dose Route Start Last Admin Trade Name Freq PRN Reason Stop Dose Admin Al Hydroxide/Mg Hydroxide 30 ml 12/29/22 07:51 12/29/22 08:45 Magnesium Hydrox/Alum Hydrox 30 Ml Oral.Susp PO 12/29/22 07:52 30 ml ONCE ONE Administration Belladonna Alkaloids/Phenobarbital 10 ml 12/29/22 07:51 12/29/22 08:45 Phenobarb/Hyoscy/Atropine/Scop 10 Ml Elixir PO 12/29/22 07:52 10 ml ONCE ONE Administration Lidocaine HCl 15 ml 12/29/22 07:51 12/29/22 08:45 Lidocaine Hcl Viscous 2 % 15 Ml Solution MUCOUS MEM 12/29/22 07:52 15 ml ONCE ONE Administration Pantoprazole Sodium 40 mg 12/29/22 07:51 12/29/22 08:45 Pantoprazole Sodium 40 Mg/10 Ml Vial IVPUSH 12/29/22 07:52 40 mg ONCE ONE Administration Discharge Plan Discharge Clinical Impression: Gastritis, Esophagitis Patient Disposition: Home, Self-Care Instructions: Esophagitis (ED), Gastritis (ED) Prescriptions: No Action (DME) blood pressure monitor [Blood Pressure Kit] Kit See Rx Instructions .Route Qty: 1 0RF Rx Instructions: As directed ([facility] [place] [facility]) CANE See Rx Instructions .Route .MEDSUPPLY Qty: 1 0RF Rx Instructions: As directed ([facility] [place]) WRIST BRACE See Rx Instructions .Route .MEDSUPPLY Qty: 1 0RF Rx Instructions: As directed ([facility] [place] [facility]) BATH CHAIR See Rx Instructions .Route .MEDSUPPLY Qty: 1 0RF Rx Instructions: As directed ([facility] [place] [facility]) LIFELINE ALERT SYSTEM See Rx Instructions .Route .MEDSUPPLY Qty: 1 0RF Rx Instructions: As directed ([facility] [place] [facility]) ALCOHOL PADS See Rx Instructions .Route .MEDSUPPLY Qty: 100 3RF Rx Instructions: As directed ([facility] [place] [facility]) ROLLATOR See Rx Instructions .Route .MEDSUPPLY Qty: 1 0RF Rx Instructions: As directed Ensure High Protein Liquid 1 ea PO TID 30 Days Qty: 5688 0RF ([facility] [place]) WRIST SPLINT Right and Left hand See Rx Instructions .Route .MEDSUPPLY Qty: 1 0RF Rx Instructions: As directed ([facility] [place] [facility]) SHOWER WAND See Rx Instructions .Route .MEDSUPPLY Qty: 1 0RF Rx Instructions: As directed ([facility] [place] [facility]) SHOWER BAR See Rx Instructions .Route .MEDSUPPLY Qty: 1 0RF Rx Instructions: As directed ([facility] [place] [facility]) ENSURE once a day See Rx Instructions .Route .MEDSUPPLY Qty: 90 0RF Rx Instructions: As directed ([facility] [place] [facility]) Bedside commode See Rx Instructions .Route .MEDSUPPLY Qty: 1 0RF Rx Instructions: As directed ([facility] [place] [facility]) Bed pads See Rx Instructions .Route .MEDSUPPLY Qty: 100 12RF Rx Instructions: As directed ([facility] [place] [facility]) SANITARY PADS See Rx Instructions .Route .MEDSUPPLY Qty: 100 12RF Rx Instructions: As directed simethicone 40 mg/0.6 mL drops,suspension 0.6 ml PO BID-TID PRN (Reason: abdominal distention) Qty: 15 0RF sucralfate [Carafate] 100 mg/mL suspension 5 ml PO QID Qty: 1000 0RF Rx Instructions: swish in mouth and swallow; use after food/drink fluticasone propionate [Flonase Allergy Relief] 50 mcg/actuation spr ay,suspension 1 spray intranasal DAILY Qty: 100 0RF Rx Instructions: administer into each nostril ([facility]) blood-glucose meter [OneTouch Verio Meter[place] [facility] [place] Rx Instructions .Route Rx Instructions: As directed (DME) OneTouch Verio test strips Strip See Rx Instructions .Route Rx Instructions: As directed 3 times a day (DME) lancets [OneTouch Delica Lancets] [facility] See Rx Instructions .Route Rx Instructions: As directed 3 times a day pantoprazole [address] for susp in packet 40 mg PO BID Qty: 60 5RF Referrals: Deirdre Cantrell MD [Primary Care Provider] - 5 days Carlos Multani MD [Physician] - 5 days
[2022-12-29 08:44] LABS: MANUAL DIFF FLAG NO
[2022-12-29] MEDS: Magnesium Hydrox/Alum Hydrox 30 ML ORAL.SUSP PO (08:45)
[2022-12-29] MEDS: PHENobarb/Hyoscy/Atropine/Scop 10 ML ELIXIR PO (08:45)
[2022-12-29] MEDS: Lidocaine HCl Viscous 2 % 15 ML SOLUTION MUCOUS MEM (08:45)
[2022-12-29] MEDS: Pantoprazole Sodium 40 MG/10 ML VIAL IVPUSH (08:45)
[2022-12-29 08:50] LABS: Basophils Percent Auto 0.8 % (0-2); Eosinophils Absolute Auto 0.1 X10*3/uL (0.0-0.4); Eosinophils Percent Auto 1.5 % (0-4); Hematocrit 35.7 % (37.0-47.0); Imm Gran Abs Auto 0.01 X10*3/uL (0.00-0.03); Imm Gran Pct Auto 0.2 % (0.0-0.4); Lymphocytes Absolute Auto 1.9 X10*3/uL (1.2-4.9); Lymphocytes Percent Auto 39.2 % (20-40); Mean Corpuscular HGB Conc 33.6 g/dl (31.0-35.0); Mean Corpuscular Hemoglobin 30.2 pg (27.0-33.0); Mean Corpuscular Volume 89.7 fL (80.0-98.0); Mean Platelet Volume 9.6 fL (9.4-12.3); Monocytes Absolute Auto 0.4 X10*3/uL (0.1-1.2); Monocytes Percent Auto 7.8 % (2-11); Neutrophils Absolute Auto 2.4 x10*3/uL (2.0-8.3); Neutrophils Percent Auto 50.5 % (45-73); Platelet Count 302 X10*3/uL (160-400); Red Blood Count 3.98 X10*6/uL (4.20-5.50); Red Cell Distribution Width 13.2 % (11.0-16.0); White Blood Count 4.7 X10*3/uL (4.8-10.8)
[2022-12-29 09:25] LABS: Alanine Aminotransferase 9 U/L (0-31); Albumin Level 4.2 g/dL (3.5-5.0); Alkaline Phosphatase 52 U/L (39-117); Anion Gap 12 (12-20); Aspartate Amino Transferase 17 U/L (5-31); Bilirubin Total 0.3 mg/dL (0.0-1.0); Blood Urea Nitrogen 11 mg/dL (9-16); Calcium 9.1 mg/dL (8.4-10.2); Carbon Dioxide 25 mmol/L (22-29); Chloride 107 mmol/L (96-108); Creatinine Clr Calc Pharmacy 79.5; Estimated Glomerular Filt Rate > 60; Glucose Random 83 mg/dL (60-115); Lipase 19 U/L (8-78); Sodium 139 mmol/L (135-145)
[2022-12-29 10:03] VITALS: BP 155/101; PULSE 85; RESP 16; TEMP 36.7; O2SAT 100
[2022-12-29 10:11] LABS: Glucose, Whole Blood 83 mg/dL (60-115)
--- NOTE | 2022-12-29 10:30 | PC.NURSE ---
Patient complaining of feeling tired and dizzy, vital signs stable and sugar 83. Patient generally well appearing at this time.
[2022-12-29 11:18] VITALS: BP 124/68; PULSE 64; RESP 18; O2SAT 99
== END 2022-12-29 11:26 | disposition home or self-care (01) ==
PROVIDERS: Emergency Provider Emergency Medicine; PCP Internal Medicine
DX: K29.70 Gastritis, unspecified, without bleeding (principal); K20.90 Esophagitis, unspecified without bleeding; E11.9 Type 2 diabetes mellitus without complications; I10 Essential (primary) hypertension; E78.00 Pure hypercholesterolemia, unspecified; Z79.899 Other long term (current) drug therapy
CPT/HCPCS: 36415; 80053; 82947; 83690; 85025; 96374; 99284

== ENCOUNTER → 2023-01-03 12:36 | Outpatient (BNVA) | payer OTHER, SELFPAY | PROVIDERS: PCP Internal Medicine; Visit Provider Physician Assistant | DX: R63.6 Underweight (principal); K31.2 Hourglass stricture and stenosis of stomach; N83.299 Other ovarian cyst, unspecified side; Z90.3 Acquired absence of stomach [part of] | CPT/HCPCS: 99212 ==

== ENCOUNTER 2023-01-09 13:53 | Emergency (ER) | payer OTHER, SELFPAY ==
[2023-01-09 14:44] VITALS: BP 142/87; PULSE 82; RESP 16; TEMP 36.1; O2SAT 98; BMI 19.4
--- NOTE | 2023-01-09 14:47 | ED.ABDPAIN ---
HPI - Abdominal Pain General Chief Complaint: General Medical Stated Complaint: Vomiting Time Seen by Provider: 01/09/23 16:29 Source: patient Mode of arrival: ambulatory Limitations: no limitations History of Present Illness HPI narrative: 42-year-old female s/p laparoscopic sleeve gastrectomy for patient after the procedure been having chronic abdominal pain that has been going for over 2 years, patient now under care of Dr. Multani patient underwent upper endoscopy which showed esophagitis, gastritis, hiatal hernia, and stricture of the sleeve. Came in for evaluation lower abdominal pain, persistent vomiting. Related Data Home Medications Medication Instructions Recorded Confirmed blood sugar diagnostic (ChoreMonsterTouch 08/15/22 01/03/23 Verio test strips) blood-glucose meter (ChoreMonsterTouch 08/15/22 01/03/23 Verio Meter) lancets 33 gauge (OneTouch Delica 08/15/22 01/03/23 Lancets) Previous Rx's Medication Instructions Recorded blood pressure monitor (Blood #1 ea 10/31/21 Pressure Kit) BATH CHAIR #1 ea 01/31/22 CANE #1 ea 01/31/22 LIFELINE ALERT SYSTEM #1 01/31/22 WRIST BRACE #1 ea 01/31/22 ALCOHOL PADS #100 ea 02/21/22 ROLLATOR #1 ea 05/23/22 WRIST SPLINT Right and Left hand #1 05/30/22 SHOWER BAR #1 ea 06/08/22 SHOWER WAND #1 ea 06/08/22 Bed pads #100 ea 07/17/22 Bedside commode #1 ea 07/17/22 SANITARY PADS #100 07/17/22 fluticasone propionate 50 1 spray intranasal DAILY #100 mL 07/27/22 mcg/actuation nasal spray,suspension (Flonase Allergy Relief) simethicone 40 mg/0.6 mL oral 0.6 ml PO BID-TID PRN abdominal 11/08/22 drops,suspension distention #15 mL pantoprazole 40 mg granules 40 mg PO BID #60 packets 11/14/22 delayed-release for susp in packet sucralfate 100 mg/mL oral 5 ml PO QID #1,000 mL 11/21/22 suspension (Carafate) food supplemt, lactose-reduced 0.1 1 ea PO TID #1,184 mL 01/03/23 gram-1.18 kcal/ mL oral liquid (Ensure Complete) omeprazole magnesium 20 mg 20 mg PO BID #30 tabs 01/09/23 tablet,delayed release (Prilosec OTC) ondansetron 4 mg disintegrating 4 mg PO Q8-12H PRN nausea and 01/09/23 tablet vomiting #10 tabs Allergies Allergy/AdvReac Type Severity Reaction Status Date / Time tomato [TOMATO] Allergy Mild HIVES Verified 01/09/23 14:44 DIFFICULTY BREATHING hydrocodone [HYDROCODONE] Allergy Unknown RASH, Verified 01/09/23 14:44 AIRWAY CLOSES ibuprofen [From MOTRIN] Allergy Unknown STOMACH Verified 01/09/23 14:44 UPSET, vomiting trazodone [TRAZODONE] Allergy Unknown UNKNOWN, Verified 01/09/23 14:44 stomach upset black pepper [BLACK PEPPER] AdvReac Severe DIFFICULTY Verified 01/09/23 14:44 BREATHING, hives lisinopril AdvReac Severe Anaphylaxis Verified 01/09/23 14:44 Review of Systems Review of Systems All other systems are reviewed and are negative Constitutional: Reports as per HPI and Reports no additional constitutional complaints Eyes: Reports as per HPI and Reports no additional eye complaints Reports system reviewed and no additional complaints, except as documented Cardiovascular: Reports as per HPI and Reports no additional cardiovascular complaints Respiratory: Reports as per HPI and Reports no additional respiratory complaints Gastrointestinal: Reports as per HPI and Reports no additional gastrointestinal complaints Genitourinary: Reports no additional female genitourinary complaints Musculoskeletal: Reports no additional musculoskeletal complaints Skin/Breast: Reports system reviewed and no additional complaints, except as docu Psychiatric: Reports no additional psychiatric complaints Endocrine: Reports no additional endocrine complaints Hematologic/Lymphatic: Reports no additional hematologic/lymphatic complaints Allergic/Immunologic: Reports no additional allergic/immunologic complaints Reports system reviewed and no additional complaints, except as documented and Reports Abnormal speech present [facility] Past Medical History 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 Diverticulosis GERD (gastroesophageal reflux disease) History of bipolar disorder History of schizophrenia Hypercholesterolemia Hypertension Insomnia Numbness of left hand Renal calculi Spondylosis of lumbar spine Type 2 diabetes mellitus with hyperglycemia Vitamin D deficiency Surgical History H/O: hysterectomy History of tubal ligation Hx of bariatric surgery Family History Family History Father Medical history unknown Mother Medical history unknown Paternal Aunt Uterine cancer Diabetes Hypertension Paternal Uncle Liver cancer Heart attack Maternal Aunt Stroke Family/Other Chronic mental illness Sister Uterine cancer Schizophrenia Brother Substance abuse Other Mental health disorder Social History Social History Household Members: None Housing: Apartment Do you presently have visiting nurse or other home services: Yes Alcohol intake: never Patient Tobacco Use Status: Never used Tobacco Smoked in Last 30 Days: No e-Cigarette/Vaping Use: Never Used Second Hand Smoke Exposure: No Use of substances other than those prescribed or required for medical reasons: No Advance Directives: No service: No Current occupational status: disabled Current occupational exposures/hazards: No Cognitive needs: No Hearing needs: No Vision needs: No Physical Exam ED Vital Signs: Vital Signs - 24 hr 01/09/23 14:44 01/09/23 16:35 Temperature 97.0 F 98.5 F Pulse Rate 82 59 Respiratory Rate 16 14 Blood Pressure 142/87 H 124/85 Pulse Oximetry 98 95 Oxygen Delivery Method Room Air Room Air BMI result Body Mass Index 19.4 Vital signs have been reviewed as appeared to be correct. Blood pressure normal. Heart rate normal. Respiration rate normal. Temperature normal. Oxygen saturation normal. Appearance: Alert. Oriented X3. No acute distress. Head: Normal external exam. Normocephalic. Atraumatic. No Hua signs noted. No raccoon eyes noted Eyes: PERRLA. EOMI. Conjunctiva and sclera normal. Eyelids normal. ENT: TM's Normal. Pharynx normal. Uvula midline. Moist mucous membranes. No trismus noted. No drooling noted. No muffled voice noted. Neck: Normal inspection. Neck supple. FROM. No adenopathy. Thyroid Normal. No meningeal signs. No neck mass noted. CVS: Normal heart rate and rhythm. Heart sound normal. No murmurs noted. Pulses normal throughout. Respiratory: No respiratory distress. Painless inspiration. Breath sounds normal. No wheezes/rales/rhonchi noted. Chest nontender. No accessory muscle usage noted or decreased air movement noted. Abdomen: Soft and nontender. Bowel sounds normal in all 4 quadrants. No distention noted. No organomegaly noted. No visible injury noted. Back: No CVA tenderness. Full range of motion noted. Skin: Skin warm and dry. Normal skin color. Normal skin turgor. No rashes/lesions/lacerations noted. Extremities: No lower extremity edema. Extremities exhibit normal range of motion. Extremities nontender. Neuro: Oriented X 3. Cranial nerve exam: II-XII are grossly intact No motor deficit. No sensory deficit. Reflexes normal. Course Course Course Narrative: RME: 42-year-old female with a past medical history of schizophrenia, ETOH abuse, gastritis, s/p gastric sleeve, distal gastric stricture, presenting to the ED complaining of abdominal pain, nausea, decreased p.o. intake x1 mos. Also reports low back pain with urinary incontinence x 2 weeks. Reports history of incontinence which required surgical intervention in the past, now recurred with abdominal pain. Labs, UA ordered Full HPI, ROS and PE to be performed by primary ED provider. Reevaluation(s) Reevaluation #1: 42-year-old female came with chronic abdominal pain after having sleeve gastrectomy, patient follows with Dr. Multani had upper endoscopy which revealed hiatal hernia, esophagitis, and stricture of the sleeve. Patient feels better, normal WBCs, no abdominal pain, able to tolerate p.o. intake with no nausea or vomiting. Time: 19:50 Medical Decision Making Differential Diagnosis Differential Diagnoses: The differential diagnosis associated with the presentation includes (Gastritis, esophagitis, dehydration, electrolytes abnormalities, severe anemia.) Admission/Observation Consideration of admission/observation: Escalation of care including admission/observation considered Lab Data MDM Lab Attestation statement: I reviewed the patient's lab results. 01/09/23 14:57 01/09/23 14:57 Labs: Lab Results 01/09/23 01/09/23 01/09/23 Range/Units 14:57 14:57 14:57 WBC 5.1 (4.8-10.8) X10*3/uL RBC 4.08 L (4.20-5.50) X10*6/uL Hgb 12.0 (12.0-16.0) g/dl Hct 37.5 (37.0-47.0) % MCV 91.9 (80.0-98.0) fL MCH 29.4 (27.0-33.0) pg MCHC 32.0 (31.0-35.0) g/dl RDW 13.0 (11.0-16.0) % Plt Count 349 (160-400) X10*3/uL MPV 9.5 (9.4-12.3) fL Immature Gran % (Auto) 0.2 (0.0-0.4) % Neut % (Auto) 61.0 (45-73) % Lymph % (Auto) 29.3 (20-40) % [place] % (Auto) 7.7 (2-11) % Eos % (Auto) 0.6 (0-4) % Baso % (Auto) 1.2 (0-2) % Lymph # (Auto) 1.5 (1.2-4.9) X10*3/uL [place] # (Auto) 0.4 (0.1-1.2) X10*3/uL Eos # (Auto) 0.0 (0.0-0.4) X10*3/uL Baso # (Auto) 0.1 (0.0-0.2) X10*3/uL Abs Immat Gran (auto) 0.01 (0.00-0.03) X10*3/uL Absolute Neuts (auto) 3.1 (2.0-8.3) x10*3/uL Absolute Nucleated RBC 0.000 (0.0-0.012) X10*3/uL Nucleated RBC % (auto) 0.0 (0.0-0.2) /100WBC PT 11.8 (10.0-13.1) SEC INR 1.0 (0.9-1.1) Sodium 142 (135-145) mmol/L Potassium 4.6 (3.3-5.1) mmol/L Chloride 104 (96-108) mmol/L Carbon Dioxide 28 (22-29) mmol/L Anion Gap 15 (12-20) BUN 11 (9-16) mg/dL Creatinine 0.71 (0.5-1.4) mg/dL Estim Creat Clear Calc 78.2 Estimated GFR > 60 POC Glucose (60-115) mg/dL Random Glucose 89 (60-115) mg/dL Calcium 9.5 (8.4-10.2) mg/dL Magnesium 2.2 (1.6-2.6) mg/dL Total Bilirubin 0.4 (0.0-1.0) mg/dL Direct Bilirubin 0.1 (0.0-0.5) mg/dL AST 15 (5-31) U/L ALT 9 (0-31) U/L Alkaline Phosphatase 55 (39-117) U/L Total Protein 7.5 (6.5-8.0) g/dL Albumin 4.6 (3.5-5.0) g/dL Lipase 14 (8-78) U/L Urine Color Urine Appearance Urine pH (5.0-9.0) Ur Specific [place] (1.005-1.025) Urine Protein (Neg-Trace) mg/dL Urine Glucose (UA) (Negative) mg/dL Urine Ketones (Negative) mg/dL Urine Blood (Negative) Urine Nitrite (Negative) Ur Leukocyte Esterase (Negative) Urine Test (NEGATIVE) 01/09/23 01/09/23 01/09/23 Range/Units 17:32 17:32 17:45 WBC (4.8-10.8) X10*3/uL RBC (4.20-5.50) X10*6/uL Hgb (12.0-16.0) g/dl Hct (37.0-47.0) % MCV (80.0-98.0) fL MCH (27.0-33.0) pg MCHC (31.0-35.0) g/dl RDW (11.0-16.0) % Plt Count (160-400) X10*3/uL MPV (9.4-12.3) fL Immature Gran % (Auto) (0.0-0.4) % Neut % (Auto) (45-73) % Lymph % (Auto) (20-40) % [place] % (Auto) (2-11) % Eos % (Auto) (0-4) % Baso % (Auto) (0-2) % Lymph # (Auto) (1.2-4.9) X10*3/uL [place] # (Auto) (0.1-1.2) X10*3/uL Eos # (Auto) (0.0-0.4) X10*3/uL Baso # (Auto) (0.0-0.2) X10*3/uL Abs Immat Gran (auto) (0.00-0.03) X10*3/uL Absolute Neuts (auto) (2.0-8.3) x10*3/uL Absolute Nucleated RBC (0.0-0.012) X10*3/uL Nucleated RBC % (auto) (0.0-0.2) /100WBC PT (10.0-13.1) SEC INR (0.9-1.1) Sodium (135-145) mmol/L Potassium (3.3-5.1) mmol/L Chloride (96-108) mmol/L Carbon Dioxide (22-29) mmol/L Anion Gap (12-20) BUN (9-16) mg/dL Creatinine (0.5-1.4) mg/dL Estim Creat Clear Calc Estimated GFR POC Glucose 44 L* (60-115) mg/dL Random Glucose (60-115) mg/dL Calcium (8.4-10.2) mg/dL Magnesium (1.6-2.6) mg/dL Total Bilirubin (0.0-1.0) mg/dL Direct Bilirubin (0.0-0.5) mg/dL AST (5-31) U/L ALT (0-31) U/L Alkaline Phosphatase (39-117) U/L Total Protein (6.5-8.0) g/dL Albumin (3.5-5.0) g/dL Lipase (8-78) U/L Urine Color Yellow Urine Appearance Cloudy Urine pH 8.5 (5.0-9.0) Ur Specific [place] 1.020 (1.005-1.025) Urine Protein Negative (Neg-Trace) mg/dL Urine Glucose (UA) Negative (Negative) mg/dL Urine Ketones Negative (Negative) mg/dL Urine Blood Negative (Negative) Urine Nitrite Negative (Negative) Ur Leukocyte Esterase Negative (Negative) Urine Test NEGATIVE (NEGATIVE) 01/09/23 Range/Units 19:17 WBC (4.8-10.8) X10*3/uL RBC (4.20-5.50) X10*6/uL Hgb (12.0-16.0) g/dl Hct (37.0-47.0) % MCV (80.0-98.0) fL MCH (27.0-33.0) pg MCHC (31.0-35.0) g/dl RDW (11.0-16.0) % Plt Count (160-400) X10*3/uL MPV (9.4-12.3) fL Immature Gran % (Auto) (0.0-0.4) % Neut % (Auto) (45-73) % Lymph % (Auto) (20-40) % [place] % (Auto) (2-11) % Eos % (Auto) (0-4) % Baso % (Auto) (0-2) % Lymph # (Auto) (1.2-4.9) X10*3/uL [place] # (Auto) (0.1-1.2) X10*3/uL Eos # (Auto) (0.0-0.4) X10*3/uL Baso # (Auto) (0.0-0.2) X10*3/uL Abs Immat Gran (auto) (0.00-0.03) X10*3/uL Absolute Neuts (auto) (2.0-8.3) x10*3/uL Absolute Nucleated RBC (0.0-0.012) X10*3/uL Nucleated RBC % (auto) (0.0-0.2) /100WBC PT (10.0-13.1) SEC INR (0.9-1.1) Sodium (135-145) mmol/L Potassium (3.3-5.1) mmol/L Chloride (96-108) mmol/L Carbon Dioxide (22-29) mmol/L Anion Gap (12-20) BUN (9-16) mg/dL Creatinine (0.5-1.4) mg/dL Estim Creat Clear Calc Estimated GFR POC Glucose 89 (60-115) mg/dL Random Glucose (60-115) mg/dL Calcium (8.4-10.2) mg/dL Magnesium (1.6-2.6) mg/dL Total Bilirubin (0.0-1.0) mg/dL Direct Bilirubin (0.0-0.5) mg/dL AST (5-31) U/L ALT (0-31) U/L Alkaline Phosphatase (39-117) U/L Total Protein (6.5-8.0) g/dL Albumin (3.5-5.0) g/dL Lipase (8-78) U/L Urine Color Urine Appearance Urine pH (5.0-9.0) Ur Specific [place] (1.005-1.025) Urine Protein (Neg-Trace) mg/dL Urine Glucose (UA) (Negative) mg/dL Urine Ketones (Negative) mg/dL Urine Blood (Negative) Urine Nitrite (Negative) Ur Leukocyte Esterase (Negative) Urine Test (NEGATIVE) Medications Administered Discontinued Medications Generic Name Dose Route Start Last Admin Trade Name Freq PRN Reason Stop Dose Admin Al Hydroxide/Mg Hydroxide 30 ml 01/09/23 17:47 01/09/23 18:13 Magnesium Hydrox/Alum Hydrox 30 Ml Oral.Susp PO 01/09/23 17:48 30 ml ONCE ONE Administration Sodium Chloride 1,000 mls @ 999 mls/hr 01/09/23 16:47 01/09/23 19:13 Ns IV 01/09/23 17:47 Infused .Q1H1M ONE Infusion Ketorolac Tromethamine 15 mg 01/09/23 17:46 01/09/23 18:13 Ketorolac Tromethamine 15 Mg/Ml Vial IVPUSH 01/09/23 17:47 15 mg ONCE ONE Administration Morphine Sulfate 2 mg 01/09/23 16:47 01/09/23 18:13 Morphine Sulfate 2 Mg/Ml Cartridge IVPUSH 01/09/23 16:48 Not Given ONCE ONE Protocol Ondansetron HCl 4 mg 01/09/23 16:47 01/09/23 17:34 Ondansetron Hcl 4 Mg/2 Ml Vial IVPUSH 01/09/23 16:48 4 mg ONCE ONE Administration Discharge Plan Discharge Clinical Impression: Esophagitis Patient Disposition: Home, Self-Care Instructions: Esophagitis (ED) Prescriptions: New omeprazole magnesium [Prilosec OTC] 20 mg tablet,delayed release (DR/EC) 20 mg PO BID Qty: 30 0RF ondansetron 4 mg tablet,disintegrating 4 mg PO Q8-12H PRN (Reason: nausea and vomiting) Qty: 10 0RF No Action (DME) blood pressure monitor [Blood Pressure Kit] Kit See Rx Instructions .Route Qty: 1 0RF Rx Instructions: As directed (DME) CANE See Rx Instructions .Route .MEDSUPPLY Qty: 1 0RF Rx Instructions: As directed (DME) WRIST BRACE See Rx Instructions .Route .MEDSUPPLY Qty: 1 0RF Rx Instructions: As directed (DME) BATH CHAIR See Rx Instructions .Route .MEDSUPPLY Qty: 1 0RF Rx Instructions: As directed (DME) LIFELINE ALERT SYSTEM See Rx Instructions .Route .MEDSUPPLY Qty: 1 0RF Rx Instructions: As directed (DME) ALCOHOL PADS See Rx Instructions .Route .MEDSUPPLY Qty: 100 3RF Rx Instructions: As directed (DME) ROLLATOR See Rx Instructions .Route .MEDSUPPLY Qty: 1 0RF Rx Instructions: As directed (DME) WRIST SPLINT Right and Left hand See Rx Instructions .Route .MEDSUPPLY Qty: 1 0RF Rx Instructions: As directed (DME) SHOWER WAND See Rx Instructions .Route .MEDSUPPLY Qty: 1 0RF Rx Instructions: As directed (DME) SHOWER BAR See Rx Instructions .Route .MEDSUPPLY Qty: 1 0RF Rx Instructions: As directed (DME) Bedside commode See Rx Instructions .Route .MEDSUPPLY Qty: 1 0RF Rx Instructions: As directed (DME) Bed pads See Rx Instructions .Route .MEDSUPPLY Qty: 100 12RF Rx Instructions: As directed (DME) SANITARY PADS See Rx Instructions .Route .MEDSUPPLY Qty: 100 12RF Rx Instructions: As directed simethicone 40 mg/0.6 mL drops,suspension 0.6 ml PO BID-TID PRN (Reason: abdominal distention) Qty: 15 0RF sucralfate [Carafate] 100 mg/mL suspension 5 ml PO QID Qty: 1000 0RF Rx Instructions: swish in mouth and swallow; use after food/drink fluticasone propionate [Flonase Allergy Relief] 50 mcg/actuation spray,suspension 1 spray intranasal DAILY Qty: 100 0RF Rx Instructions: administer into each nostril (DME) blood-glucose meter [OneTouch Verio Meter] Misc See Rx Instructions .Route Rx Instructions: As directed (DME) OneTouch Verio test strips Strip See Rx Instructions .Route Rx Instructions: As directed 3 times a day (DME) lancets [OneTouch Delica Lancets] 33 gauge misc See Rx Instructions .Route Rx Instructions: As directed 3 times a day pantoprazole [address] for susp in packet 40 mg PO BID Qty: 60 5RF Ensure Complete 0.1 gram-1.18 kcal/mL liquid 1 ea PO TID Qty: 1184 2RF Referrals: Po,Deirdre Raymundo MD [Primary Care Provider] - Carlos Multani MD [Physician] -
[2023-01-09 15:09] LABS: MANUAL DIFF FLAG NO
[2023-01-09 15:14] LABS: Basophils Absolute Auto 0.1 X10*3/uL (0.0-0.2); Basophils Percent Auto 1.2 % (0-2); Eosinophils Percent Auto 0.6 % (0-4); Hematocrit 37.5 % (37.0-47.0); Imm Gran Abs Auto 0.01 X10*3/uL (0.00-0.03); Imm Gran Pct Auto 0.2 % (0.0-0.4); Lymphocytes Absolute Auto 1.5 X10*3/uL (1.2-4.9); Lymphocytes Percent Auto 29.3 % (20-40); Mean Corpuscular Hemoglobin 29.4 pg (27.0-33.0); Mean Corpuscular Volume 91.9 fL (80.0-98.0); Mean Platelet Volume 9.5 fL (9.4-12.3); Monocytes Absolute Auto 0.4 X10*3/uL (0.1-1.2); Monocytes Percent Auto 7.7 % (2-11); Neutrophils Absolute Auto 3.1 x10*3/uL (2.0-8.3); Platelet Count 349 X10*3/uL (160-400); Red Blood Count 4.08 X10*6/uL (4.20-5.50); White Blood Count 5.1 X10*3/uL (4.8-10.8)
[2023-01-09 15:18] LABS: Prothrombin Time 11.8 SEC (10.0-13.1)
[2023-01-09 15:34] LABS: Alanine Aminotransferase 9 U/L (0-31); Albumin Level 4.6 g/dL (3.5-5.0); Alkaline Phosphatase 55 U/L (39-117); Anion Gap 15 (12-20); Aspartate Amino Transferase 15 U/L (5-31); Bilirubin Direct 0.1 mg/dL (0.0-0.5); Bilirubin Total 0.4 mg/dL (0.0-1.0); Blood Urea Nitrogen 11 mg/dL (9-16); Calcium 9.5 mg/dL (8.4-10.2); Carbon Dioxide 28 mmol/L (22-29); Chloride 104 mmol/L (96-108); Creatinine Clr Calc Pharmacy 78.2; Estimated Glomerular Filt Rate > 60; Glucose Random 89 mg/dL (60-115); Lipase 14 U/L (8-78); Magnesium 2.2 mg/dL (1.6-2.6); Potassium 4.6 mmol/L (3.3-5.1); Sodium 142 mmol/L (135-145); Total Protein 7.5 g/dL (6.5-8.0)
[2023-01-09 16:35] VITALS: BP 124/85; PULSE 59; RESP 14; TEMP 36.9; O2SAT 95
[2023-01-09] MEDS: 0.9 % Sodium Chloride 1,000 ML 999 ML IV (17:34)
[2023-01-09] MEDS: ondansetron HCL 4 MG/2 ML VIAL IVPUSH (17:34)
[2023-01-09 17:39] LABS: Appearance Urine Cloudy; Color Urine Yellow; Glucose Urine UA Negative (Negative); Leukocyte Esterase Urine Negative (Negative); Nitrite Urine Negative (Negative); PH 8.5 (5.0-9.0); Urine Blood Negative (Negative); Urine Ketones Negative (Negative); Urine Protein Negative (Neg-Trace)
[2023-01-09 17:41] LABS: UPreg QC Valid YES; Urine Pregnancy NEGATIVE (NEGATIVE)
[2023-01-09 17:50] LABS: Glucose, Whole Blood 44 mg/dL (60-115)
[2023-01-09] MEDS: Magnesium Hydrox/Alum Hydrox 30 ML ORAL.SUSP PO (18:13)
[2023-01-09] MEDS: Ketorolac Tromethamine 15 MG/ML VIAL IVPUSH (18:13)
[2023-01-09 19:20] LABS: Glucose, Whole Blood 89 mg/dL (60-115)
--- NOTE | 2023-01-09 19:20 | PC.NURSE ---
pt alerted this nurse that she was diabetic, checked poc at 1748 and blood glucose was reported to be 44. had tech give pt pudding, terrell crackers and orange juice. this rn was in room with pt for IV/medication and pt was mentating a&ox4, skin wpd, and talking with this rn within time after first poc was checked and before 2nd poc was checked. rechecked POC at 1917, blood glucose 89
[2023-01-09 19:52] VITALS: BP 104/74; PULSE 58; RESP 16; TEMP 37
== END 2023-01-09 20:00 | disposition home or self-care (01) ==
PROVIDERS: Physician Assistant; Emergency Provider Emergency Medicine; PCP Internal Medicine
DX: K20.90 Esophagitis, unspecified without bleeding (principal); R10.13 Epigastric pain; Z98.84 Bariatric surgery status; Z79.899 Other long term (current) drug therapy
CPT/HCPCS: 36415; 80048; 80076; 81003; 81025; 82947; 83690; 83735; 85025; 85610; 96361; 96374; 96375; 99284; J1885; J2405

== ENCOUNTER 2023-01-11 04:04 | Emergency (ER) | payer OTHER, SELFPAY ==
[2023-01-11 04:19] VITALS: BP 142/89; PULSE 74; RESP 16; TEMP 37.1; O2SAT 97; BMI 18.7
[2023-01-11 04:32] VITALS: O2SAT 100
[2023-01-11 05:00] LABS: Eosinophils Absolute Auto 0.1 X10*3/uL (0.0-0.4); Eosinophils Percent Auto 1.9 % (0-4); Hematocrit 32.7 % (37.0-47.0); Hemoglobin 10.8 g/dl (12.0-16.0); Imm Gran Abs Auto 0.01 X10*3/uL (0.00-0.03); Imm Gran Pct Auto 0.2 % (0.0-0.4); Lymphocytes Absolute Auto 1.9 X10*3/uL (1.2-4.9); Lymphocytes Percent Auto 46.2 % (20-40); MANUAL DIFF FLAG NO; Mean Corpuscular Hemoglobin 30.4 pg (27.0-33.0); Mean Corpuscular Volume 92.1 fL (80.0-98.0); Mean Platelet Volume 9.4 fL (9.4-12.3); Monocytes Absolute Auto 0.4 X10*3/uL (0.1-1.2); Monocytes Percent Auto 9.5 % (2-11); Neutrophils Absolute Auto 1.7 x10*3/uL (2.0-8.3); Neutrophils Percent Auto 41.2 % (45-73); Platelet Count 309 X10*3/uL (160-400); Red Blood Count 3.55 X10*6/uL (4.20-5.50); Red Cell Distribution Width 12.8 % (11.0-16.0); White Blood Count 4.2 X10*3/uL (4.8-10.8)
[2023-01-11 05:01] LABS: Appearance Urine Clear; Color Urine Yellow; Glucose Urine UA Negative (Negative); Leukocyte Esterase Urine Negative (Negative); Nitrite Urine Negative (Negative); PH 6.5 (5.0-9.0); Urine Blood Negative (Negative); Urine Ketones Negative (Negative); Urine Protein Negative (Neg-Trace)
[2023-01-11 05:02] LABS: UPreg QC Valid YES; Urine Pregnancy NEGATIVE (NEGATIVE)
[2023-01-11 05:16] LABS: Alanine Aminotransferase 8 U/L (0-31); Alkaline Phosphatase 47 U/L (39-117); Anion Gap 10 (12-20); Aspartate Amino Transferase 12 U/L (5-31); Bilirubin Direct < 0.2 mg/dL (0.0-0.5); Bilirubin Total 0.2 mg/dL (0.0-1.0); Blood Urea Nitrogen 10 mg/dL (9-16); Calcium 8.4 mg/dL (8.4-10.2); Carbon Dioxide 31 mmol/L (22-29); Chloride 106 mmol/L (96-108); Creatinine Clr Calc Pharmacy 81.1; Estimated Glomerular Filt Rate > 60; Glucose Random 87 mg/dL (60-115); Lipase 16 U/L (8-78); Potassium 4.1 mmol/L (3.3-5.1); Sodium 143 mmol/L (135-145); Total Protein 6.4 g/dL (6.5-8.0)
[2023-01-11 06:26] VITALS: BP 116/86; PULSE 65; RESP 16; TEMP 36.9; O2SAT 99
--- NOTE | 2023-01-11 06:31 | ED.ABDPAIN ---
HPI - Abdominal Pain General Chief Complaint: Abdominal Pain Stated Complaint: stomach pain Time Seen by Provider: 01/11/23 06:31 Source: patient and old records reviewed Mode of arrival: ambulatory Limitations: no limitations History of Present Illness HPI narrative: ?42 yo female with history of robotic gastric sleeve at [facility] one year ago complicated by malabsorption, adrenal insufficiency, anxiety, GERD, gastritis, esophagitis, significant weight loss and dysphagia, history of HTN, HLD, schizophrenia, ovarian cysts and anemia presents to the emergency department with a chief complaint of ongoing abdominal pain that has been present for sometime now. However, she reports that 3-4 days ago, the abdominal pain changed and is now accompanied with nausea, blood-tinged vomiting and diarrhea. She states that pain is isolated to the mid-epigastric area though radiates to her lower back and down her left leg. She states that pain is constant and rates it 10/10. Associated symptoms include dysuria, headache, numbness and tingling. Patient denies vertigo, chest pain, or SOB. She reports no other acute concerns at this time. Patient was seen by the bariatric provider on January 04. Importance of dietary compliance and abstaining from cigarettes and alcohol were discussed. She has plan for upper GI at the end of this month. She is being treated for severe gastritis with both Protonix and Carafate q.i.d.. elicited complaint: abdominal pain Pertinent past history: other (malabsorption due to robotic bariatric sleeve, significant weight loss and dysphagia) Onset (ago): day(s) Pain Consistency: constant Location: other (mid-epigstric area) Severity: severe Pain scale (0-10): 10 Quality: aching and sharp Radiation: RUQ, RLQ and back (mid-lower back) Associated symptoms: nausea, vomiting and diarrhea Related Data Home Medications Medication Instructions Recorded Confirmed blood sugar diagnostic (OneTouch 08/15/22 01/03/23 Verio test strips) blood-glucose meter (OneTouch 08/15/22 01/03/23 Verio Meter) lancets 33 gauge (OneTouch Delica 08/15/22 01/03/23 Lancets) Previous Rx's Medication Instructions Recorded blood pressure monitor (Blood #1 ea 10/31/21 Pressure Kit) BATH CHAIR #1 ea 01/31/22 CANE #1 ea 01/31/22 LIFELINE ALERT SYSTEM #1 ea 01/31/22 WRIST BRACE #1 ea 01/31/22 ALCOHOL PADS #100 ea 02/21/22 ROLLATOR #1 ea 05/23/22 WRIST SPLINT Right and Left hand #1 ea 05/30/22 SHOWER BAR #1 ea 06/08/22 SHOWER WAND #1 ea 06/08/22 Bed pads #100 ea 07/17/22 Bedside commode #1 ea 07/17/22 SANITARY PADS #100 ea 07/17/22 fluticasone propionate 50 1 spray intranasal DAILY #100 mL 07/27/22 mcg/actuation nasal spray,suspension (Flonase Allergy Relief) simethicone 40 mg/0.6 mL oral 0.6 ml PO BID-TID PRN abdominal 11/08/22 drops,suspension distention #15 mL pantoprazole 40 mg granules 40 mg PO BID #60 packets 11/14/22 delayed-release for susp in packet sucralfate 100 mg/mL oral 5 ml PO QID #1,000 mL 11/21/22 suspension (Carafate) food supplemt, lactose-reduced 0.1 1 ea PO TID #1,184 mL 01/03/23 gram-1.18 kcal/ mL oral liquid (Ensure Complete) omeprazole magnesium 20 mg 20 mg PO BID #30 tabs 01/09/23 tablet,delayed release (Prilosec OTC) ondansetron 4 mg disintegrating 4 mg PO Q8-12H PRN nausea and 01/09/23 tablet vomiting #10 tabs Allergies Allergy/AdvReac Type Severity Reaction Status Date / Time tomato [TOMATO] Allergy Mild HIVES Verified 01/09/23 14:44 DIFFICULTY BREATHING hydrocodone [HYDROCODONE] Allergy Unknown RASH, Verified 01/09/23 14:44 AIRWAY CLOSES ibuprofen [From MOTRIN] Allergy Unknown STOMACH Verified 01/09/23 14:44 UPSET, vomiting trazodone [TRAZODONE] Allergy Unknown UNKNOWN, Verified 01/09/23 14:44 stomach upset black pepper [BLACK PEPPER] AdvReac Severe DIFFICULTY Verified 01/09/23 14:44 BREATHING, hives lisinopril AdvReac Severe Anaphylaxis Verified 01/09/23 14:44 Review of Systems Constitutional: Reports as per HPI Eyes: Reports no additional eye complaints Reports Normal hearing present and Reports dysphagia Cardiovascular: Reports no additional cardiovascular complaints Respiratory: Reports no additional respiratory complaints Gastrointestinal: Reports abdominal pain, Reports dysphagia, Reports diarrhea, Reports vomiting and Reports hematemesis Genitourinary: Reports no additional female genitourinary complaints Musculoskeletal: Reports numbness and Reports radiating pain into limb Skin/Breast: Reports system reviewed and no additional complaints, except as docu Reports Normal hearing present and Reports numbness Psychiatric: Reports no additional psychiatric complaints Endocrine: Reports no additional endocrine complaints Hematologic/Lymphatic: Reports no additional hematologic/lymphatic complaints Allergic/Immunologic: Reports no additional allergic/immunologic complaints PMFSH Past Medical History 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 Diverticulosis GERD (gastroesophageal reflux disease) History of bipolar disorder History of schizophrenia Hypercholesterolemia Hypertension Insomnia Numbness of left hand Renal calculi Spondylosis of lumbar spine Type 2 diabetes mellitus with hyperglycemia Vitamin D deficiency Surgical History H/O: hysterectomy History of tubal ligation Hx of bariatric surgery Family History Family History Father Medical history unknown Mother Medical history unknown Paternal Aunt Uterine cancer Diabetes Hypertension Paternal Uncle Liver cancer Heart attack Maternal Aunt Stroke Family/Other Chronic mental illness Sister Uterine cancer Schizophrenia Brother Substance abuse Other Mental health disorder Social History Social History Household Members: None Housing: Apartment Do you presently have visiting nurse or other home services: Yes Alcohol intake: never Patient Tobacco Use Status: Never used Tobacco Smoked in Last 30 Days: No e-Cigarette/Vaping Use: Never Used Second Hand Smoke Exposure: No Use of substances other than those prescribed or required for medical reasons: No Any prior treatment program specific to substance use: No Advance Directives: No Advance Directives Information Provided: Yes Patient : No service: No Current occupational status: disabled Current occupational exposures/hazards: No Cognitive needs: No Hearing needs: No Vision needs: No Physical Exam ED Vital Signs: Vital Signs - 24 hr 01/11/23 04:19 01/11/23 04:32 01/11/23 06:26 Temperature 98.7 F 98.4 F Pulse Rate 74 65 Respiratory Rate 16 16 Blood Pressure 142/89 H 116/86 Pulse Oximetry 97 100 99 Oxygen Delivery Method Room Air Room Air Room Air 01/11/23 09:48 Temperature 98.4 F Pulse Rate 57 Respiratory Rate 18 Blood Pressure 134/82 Pulse Oximetry 99 Oxygen Delivery Method Room Air BMI result Body Mass Index 18.7 Appearance: Alert. Oriented X3. No acute distress. Head: normocephalic, atraumatic. Eyes: Pupils equal, round and reactive to light. ENT: Pharynx normal. No tonsilar swelling or exudate. Neck: Normal inspection. Neck supple. CVS: Normal heart rate and rhythm. Pulses normal. Respiratory: No respiratory distress. Breath sounds normal. Abdomen: Soft and nontender. +BS x4. tenderness noted in the mid-epigastric area, RUQ and RLQ no rebound or guarding. Skin: Skin warm and dry. Normal skin color. Normal skin turgor. No rashes. Extremities: Strength and sensation intact. No lower extremity edema. No joint swelling. Neuro/psych: Oriented X 3. No motor deficit. No sensory deficit. CN II-XII intact. Normal speech and cognition. Neuro Cranial nerves: Yes Normal hearing present Course Reevaluation(s) Reevaluation #1: Patient seen and evaluated by Bariatric surgery. Symptoms most likely due to eating macaroni and cheese yesterday which she cannot tolerate due to her gastric stricture. Alcohol level and urine Continine added per request a bariatric surgery to document use of alcohol and nicotine. Patient was having diarrhea here. IV fluids given. She was tolerating some putting and juice. Her glucose was found to be 55. She was given additional p.o.. Place patient physician observation at this time. Will observe her oral intake and repeat her glucose. Hopeful for discharge home with outpatient follow-up with bariatric surgery. Time: 12:02 Reevaluation #2: Glucose is improved to 83. Patient tolerating p.o.. She is eating pudding and drinking juice. At this time patient is stable for discharge home. Again the importance of dietary compliance was discussed with the patient by bariatric as well as myself. She expressed understanding. She is stable for discharge home with ongoing treatment for her gastritis and plan for upper GI series with bariatric to the end of this month. Time: 12:47 Medical Decision Making Medical Decision Making MDM Narrative: Patient is a 42 year old female with a history of robotic gastric sleeve at [facility] one year ago complicated by malabsorption, adrenal insufficiency, anxiety, GERD, gastritis, esophagitis, significant weight loss and dysphagia, history of HTN, HLD, schizophrenia and anemia presents to the emergency department with a chief complaint of ongoing abdominal pain. Based on patient's history and physical, I think the abdominal pain could be attributed to complications associated with the bariatric surgery. Patient was started on fluids, Zofran, Maalox, viscous lidocaine and phenobarbitol with good effect. Bariatric surgery was consulted and it was found that patient had Macaroni and cheese yesterday, which could have contributed to her symptoms due to history of stricture. Patient was hypoglycemic in the 50s. She was tolerating p.o.. Glucose improved to the 80s. No vomiting. At this time her symptoms are improved with medication and she is stable for discharge home. Importance of dietary compliance was stressed as well as importance of abstaining from alcohol and cigarette smoking. At this time she is stable for discharge home with outpatient follow-up with Bariatric. Patient agrees with plan all questions were answered. Differential Diagnosis Differential Diagnoses: The differential diagnosis associated with the presentation includes 1. Mid-epigastric pain superimposed on esophageal stricture vs gastric stricture 2. Esophageal rupture 3. GERD exacerbation 4. gastritis 5. pancreatitis Admission/Observation Consideration of admission/observation: Escalation of care including admission/observation considered Considered observation and admission for this patient with recurrent nausea, vomiting, diarrhea, recurrent hypoglycemia and multiple ER visits for the same. Fortunately she was able to tolerate p.o. with normalization of her glucose and improvement in her symptoms. Consult Healthcare Provider Management of the patient was discussed with: Sfd[employer] Architect Bariatric surgery was consulted and it was found that patient had macroni and cheese yesterday, which could have contributed to her symptoms due to her symptoms of esophageal stricture. Bariatric surgery suggested that a tox screen (Ethanol, nicotine and metabolite) be performed. Lab Data [facility] Lab Attestation statement: I reviewed the patient's lab results. Patient's labs were unremarkable. Urinalysis was negative, ruling other any concerns for infections. 01/11/23 04:54 01/11/23 04:54 Labs: Lab Results 01/11/23 01/11/23 01/11/23 Range/Units 04:54 04:54 04:54 WBC 4.2 L (4.8-10.8) X10*3/uL RBC 3.55 L (4.20-5.50) X10*6/uL Hgb 10.8 L (12.0-16.0) g/dl Hct 32.7 L (37.0-47.0) % MCV 92.1 (80.0-98.0) fL MCH 30.4 (27.0-33.0) pg MCHC 33.0 (31.0-35.0) g/dl RDW 12.8 (11.0-16.0) % Plt Count 309 (160-400) X10*3/uL MPV 9.4 (9.4-12.3) fL Immature Gran % (Auto) 0.2 (0.0-0.4) % Neut % (Auto) 41.2 L (45-73) % Lymph % (Auto) 46.2 H (20-40) % [place] % (Auto) 9.5 (2-11) % Eos % (Auto) 1.9 (0-4) % Baso % (Auto) 1.0 (0-2) % Lymph # (Auto) 1.9 (1.2-4.9) X10*3/uL [place] # (Auto) 0.4 (0.1-1.2) X10*3/uL Eos # (Auto) 0.1 (0.0-0.4) X10*3/uL Baso # (Auto) 0.0 (0.0-0.2) X10*3/uL Abs Immat Gran (auto) 0.01 (0.00-0.03) X10*3/uL Absolute Neuts (auto) 1.7 L (2.0-8.3) x10*3/uL Absolute Nucleated RBC 0.000 (0.0-0.012) X10*3/uL Nucleated RBC % (auto) 0.0 (0.0-0.2) /100WBC Sodium 143 (135-145) mmol/L Potassium 4.1 (3.3-5.1) mmol/L Chloride 106 (96-108) mmol/L Carbon Dioxide 31 H (22-29) mmol/L Anion Gap 10 L (12-20) BUN 10 (9-16) mg/dL Creatinine 0.66 (0.5-1.4) mg/dL Estim Creat Clear Calc 81.1 Estimated GFR > 60 POC Glucose (60-115) mg/dL Random Glucose 87 (60-115) mg/dL Calcium 8.4 D (8.4-10.2) mg/dL Total Bilirubin 0.2 (0.0-1.0) mg/dL Direct Bilirubin < 0.2 (0.0-0.5) mg/dL AST 12 (5-31) U/L ALT 8 (0-31) U/L Alkaline Phosphatase 47 (39-117) U/L Total Protein 6.4 L (6.5-8.0) g/dL Albumin 4.0 (3.5-5.0) g/dL Lipase 16 (8-78) U/L Urine Color Yellow Urine Appearance Clear Urine pH 6.5 (5.0-9.0) Ur Specific [place] 1.020 (1.005-1.025) Urine Protein Negative (Neg-Trace) mg/dL Urine Glucose (UA) Negative (Negative) mg/dL Urine Ketones Negative (Negative) mg/dL Urine Blood Negative (Negative) Urine Nitrite Negative (Negative) Ur Leukocyte Esterase Negative (Negative) Urine Test (NEGATIVE) Ethyl Alcohol mg/dL 01/11/23 01/11/23 01/11/23 Range/Units 04:54 10:37 11:43 WBC (4.8-10.8) X10*3/uL RBC (4.20-5.50) X10*6/uL Hgb (12.0-16.0) g/dl Hct (37.0-47.0) % MCV (80.0-98.0) fL MCH (27.0-33.0) pg MCHC (31.0-35.0) g/dl RDW (11.0-16.0) % Plt Count (160-400) X10*3/uL MPV (9.4-12.3) fL Immature Gran % (Auto) (0.0-0.4) % Neut % (Auto) (45-73) % Lymph % (Auto) (20-40) % [place] % (Auto) (2-11) % Eos % (Auto) (0-4) % Baso % (Auto) (0-2) % Lymph # (Auto) (1.2-4.9) X10*3/uL [place] # (Auto) (0.1-1.2) X10*3/uL Eos # (Auto) (0.0-0.4) X10*3/uL Baso # (Auto) (0.0-0.2) X10*3/uL Abs Immat Gran (auto) (0.00-0.03) X10*3/uL Absolute Neuts (auto) (2.0-8.3) x10*3/uL Absolute Nucleated RBC (0.0-0.012) X10*3/uL Nucleated RBC % (auto) (0.0-0.2) /100WBC Sodium (135-145) mmol/L Potassium (3.3-5.1) mmol/L Chloride (96-108) mmol/L Carbon Dioxide (22-29) mmol/L Anion Gap (12-20) BUN (9-16) mg/dL Creatinine (0.5-1.4) mg/dL Estim Creat Clear Calc Estimated GFR POC Glucose 55 L* (60-115) mg/dL Random Glucose (60-115) mg/dL Calcium (8.4-10.2) mg/dL Total Bilirubin (0.0-1.0) mg/dL Direct Bilirubin (0.0-0.5) mg/dL AST (5-31) U/L ALT (0-31) U/L Alkaline Phosphatase (39-117) U/L Total Protein (6.5-8.0) g/dL Albumin (3.5-5.0) g/dL Lipase (8-78) U/L Urine Color Urine Appearance Urine pH (5.0-9.0) Ur Specific [place] (1.005-1.025) Urine Protein (Neg-Trace) mg/dL Urine Glucose (UA) (Negative) mg/dL Urine Ketones (Negative) mg/dL Urine Blood (Negative) Urine Nitrite (Negative) Ur Leukocyte Esterase (Negative) Urine Test NEGATIVE (NEGATIVE) Ethyl Alcohol < 10 mg/dL External Record Review External record reviewed: Office record, Outpatient record, Prior outpatient labs and Prior outpatient radiology Tests considered The following testing was considered but not selected: CT scan of the abdomen was considered however deferred given her exam and clinical findings Chronic Conditions Patient?s care impacted by: Other (Underweight due to multiple comorbidities from her gastric sleeve, gastritis and esophagitis) Medications Administered Discontinued Medications Generic Name Dose Route Start Last Admin Trade Name Manpreetq PRN Reason Stop Dose Admin Al Hydroxide/Mg Hydroxide 30 ml 01/11/23 08:00 01/11/23 08:54 Magnesium Hydrox/Alum Hydrox 30 Ml Oral.Susp PO 01/11/23 08:01 30 ml ONCE ONE Administration Belladonna Alkaloids/Phenobarbital 10 ml 01/11/23 08:00 01/11/23 08:53 Phenobarb/Hyoscy/Atropine/Scop 10 Ml Elixir PO 01/11/23 08:01 10 ml ONCE ONE Administration Lactated Ringer's 1,000 mls @ 999 mls/hr 01/11/23 09:15 01/11/23 10:42 Lr IV 01/11/23 10:15 999 mls/hr .Q1H1M OSBALDO Administration Lidocaine HCl 15 ml 01/11/23 08:00 01/11/23 08:53 Lidocaine Hcl Viscous 2 % 15 Ml Solution MUCOUS MEM 01/11/23 08:01 15 ml ONCE ONE Administration Ondansetron HCl 4 mg 01/11/23 09:15 01/11/23 10:41 Ondansetron Hcl 4 Mg/2 Ml Vial IVPUSH 01/11/23 09:16 4 mg ONCE ONE Administration Discharge Plan Discharge Clinical Impression: Gastritis, Hypoglycemia Patient Disposition: Home, Self-Care Instructions: Gastritis (DC) Additional Instructions: Your lab work today was unremarkable. Your urine test was normal. No blood. Your symptoms are most likely due to severe gastritis and esophagitis. Recommend continuing your antacid medications as directed. It is very important that you comply with the specific diet outlined by the bariatric providers. Continue your insured drinks and puddings. It is also very important that you abstain from all alcohol. Do not drink any alcohol. It is also very important that you do not smoke any cigarettes. Follow-up with your bariatric provider as soon as possible. If you develop new or worsening symptoms call 911 or come back to the ER for further evaluation. Barnard trabajo de laboratorio de hoy fue normal. Barnard an?lisis de orina fue normal. Sin breann. Lo m?s probable es que eleuterio s?ntomas se deban a gastritis y esofagitis graves. Recomiende continuar con eleuterio medicamentos anti?cidos seg?n las indicaciones. Es muy importante que cumpla con la dieta espec?fica descrita por los proveedores bryon?tricos. Contin?e con eleuterio bebidas y postres asegurados. Tambi?n es muy importante que te abstengas de todo alcohol. No nicolas nada de alcohol. Tambi?n es muy importante que no fume cigarrillos. Mikel un seguimiento con barnard proveedor bryon?trico lo antes posible. Si desarrolla s?ntomas nuevos o que empeoran, llame al 911 o regrese a la rick de emergencias para dylan evaluaci?n adicional. Prescriptions: No Action (DME) blood pressure monitor [Blood Pressure Kit] Kit See Rx Instructions .Route Qty: 1 0RF Rx Instructions: As directed (DME) CANE See Rx Instructions .Route .MEDSUPPLY Qty: 1 0RF Rx Instructions: As directed (DME) WRIST BRACE See Rx Instructions .Route .MEDSUPPLY Qty: 1 0RF Rx Instructions: As directed (DME) BATH CHAIR See Rx Instructions .Route .MEDSUPPLY Qty: 1 0RF Rx Instructions: As directed (DME) LIFELINE ALERT SYSTEM See Rx Instructions .Route .MEDSUPPLY Qty: 1 0RF Rx Instructions: As directed (DME) ALCOHOL PADS See Rx Instructions .Route .MEDSUPPLY Qty: 100 3RF Rx Instructions: As directed (DME) ROLLATOR See Rx Instructions .Route .MEDSUPPLY Qty: 1 0RF Rx Instructions: As directed (DME) WRIST SPLINT Right and Left hand See Rx Instructions .Route .MEDSUPPLY Qty: 1 0RF Rx Instructions: As directed (DME) SHOWER WAND See Rx Instructions .Route .MEDSUPPLY Qty: 1 0RF Rx Instructions: As directed (DME) SHOWER BAR See Rx Instructions .Route .MEDSUPPLY Qty: 1 0RF Rx Instructions: As directed (DME) Bedside commode See Rx Instructions .Route .MEDSUPPLY Qty: 1 0RF Rx Instructions: As directed (DME) Bed pads See Rx Instructions .Route .MEDSUPPLY Qty: 100 12RF Rx Instructions: As directed (DME) SANITARY PADS See Rx Instructions .Route .MEDSUPPLY Qty: 100 12RF Rx Instructions: As directed simethicone 40 mg/0.6 mL drops,suspension 0.6 ml PO BID-TID PRN (Reason: abdominal distention) Qty: 15 0RF sucralfate [Carafate] 100 mg/mL suspension 5 ml PO QID Qty: 1000 0RF Rx Instructions: swish in mouth and swallow; use after food/drink omeprazole magnesium [Prilosec OTC] 20 mg tablet,delayed release (DR/EC) 20 mg PO BID Qty: 30 0RF ondansetron 4 mg tablet,disintegrating 4 mg PO Q8-12H PRN (Reason: nausea and vomiting) Qty: 10 0RF fluticasone propionate [Flonase Allergy Relief] 50 mcg/actuation spray,suspension 1 spray intranasal DAILY Qty: 100 0RF Rx Instructions: administer into each nostril (DME) blood-glucose meter [OneTouch Verio Meter] Misc See Rx Instructions .Route Rx Instructions: As directed (DME) OneTouch Verio test strips Strip See Rx Instructions .Route Rx Instructions: As directed 3 times a day (DME) lancets [OneTouch Delica Lancets] 33 gauge misc See Rx Instructions .Route Rx Instructions: As directed 3 times a day pantoprazole [address] for susp in packet 40 mg PO BID Qty: 60 5RF Ensure Complete 0.1 gram-1.18 kcal/mL liquid 1 ea PO TID Qty: 1184 2RF Referrals: Carlos Multani MD [Physician] - Print Language: Tamazight
[2023-01-11] MEDS: PHENobarb/Hyoscy/Atropine/Scop 10 ML ELIXIR PO (08:53)
[2023-01-11] MEDS: Lidocaine HCl Viscous 2 % 15 ML SOLUTION MUCOUS MEM (08:53)
[2023-01-11] MEDS: Magnesium Hydrox/Alum Hydrox 30 ML ORAL.SUSP PO (08:54)
[2023-01-11 09:48] VITALS: BP 134/82; PULSE 57; RESP 18; TEMP 36.9; O2SAT 99
[2023-01-11] MEDS: ondansetron HCL 4 MG/2 ML VIAL IVPUSH (10:41)
[2023-01-11] MEDS: Lactated Ringers 1,000 ML 999 ML IV (10:42)
[2023-01-11 11:08] LABS: Ethanol < 10 mg/dL
[2023-01-11 11:47] LABS: Glucose, Whole Blood 55 mg/dL (60-115)
[2023-01-11 12:48] LABS: Glucose, Whole Blood 83 mg/dL (60-115)
[2023-01-11 12:56] VITALS: BP 105/75; PULSE 68; RESP 17; TEMP 36.9; O2SAT 98
[2023-01-17 00:08] LABS: Cotinine, U 247 ng/mL; Nicotine, U 92 ng/mL
== END 2023-01-11 13:58 | disposition home or self-care (01) ==
PROVIDERS: Physician Assistant; Emergency Provider Internal Medicine
DX: K29.70 Gastritis, unspecified, without bleeding (principal); E16.2 Hypoglycemia, unspecified; Z79.899 Other long term (current) drug therapy
CPT/HCPCS: 36415; 80048; 80076; 80307; 80323; 81003; 81025; 82947; 83690; 85025; 96374; 99284; 99285; J2405

== ENCOUNTER 2023-01-19 17:36 | Emergency (ER) | payer OTHER, SELFPAY ==
[2023-01-19 17:47] VITALS: BP 136/64; PULSE 64; RESP 18; TEMP 36.8; O2SAT 95; BMI 18.7
--- NOTE | 2023-01-19 17:49 | ED_ITS ---
HPI - General Adult General Chief complaint: Dental/Oral Stated complaint: Dental issues/Abdominal discomfort Time Seen by Provider: 01/19/23 21:02 Related Data Home Medications Medication Instructions Recorded Confirmed blood sugar diagnostic ([facility] 08/15/22 01/03/23 Verio test strips) blood-glucose meter ([facility] 08/15/22 01/03/23 Verio Meter) lancets 33 gauge ([facility] Delica 08/15/22 01/03/23 Lancets) Previous Rx's Medication Instructions Recorded blood pressure monitor (Blood #1 ea 10/31/21 Pressure Kit) BATH CHAIR #1 ea 01/31/22 CANE #1 ea 01/31/22 LIFELINE ALERT SYSTEM #1 ea 01/31/22 WRIST BRACE #1 ea 01/31/22 ALCOHOL PADS #100 ea 02/21/22 ROLLATOR #1 ea 05/23/22 WRIST SPLINT Right and Left hand #1 ea 05/30/22 SHOWER BAR #1 ea 06/08/22 SHOWER WAND #1 ea 06/08/22 Bed pads #100 ea 07/17/22 Bedside commode #1 07/17/22 SANITARY PADS #100 ea 07/17/22 fluticasone propionate 50 1 spray intranasal DAILY #100 mL 07/27/22 mcg/actuation nasal spray,suspension (Flonase Allergy Relief) simethicone 40 mg/0.6 mL oral 0.6 ml PO BID-TID PRN abdominal 11/08/22 drops,suspension distention #15 mL pantoprazole 40 mg granules 40 mg PO BID #60 packets 11/14/22 delayed-release for susp in packet sucralfate 100 mg/mL oral 5 ml PO QID #1,000 mL 11/21/22 suspension (Carafate) food supplemt, lactose-reduced 0.1 1 ea PO TID #1,184 mL 01/03/23 gram-1.18 kcal/ mL oral liquid (Ensure Complete) omeprazole magnesium 20 mg 20 mg PO BID #30 tabs 01/09/23 tablet,delayed release (Prilosec OTC) ondansetron 4 mg disintegrating 4 mg PO Q8-12H PRN nausea and 01/09/23 tablet vomiting #10 tabs aluminum-mag hydroxide-simethicone 5 ml PO 5XD PRN indigestion #355 mL 01/19/23 200 mg-200 mg-20 mg/5 mL oral susp (Maalox Advanced) Allergies Allergy/AdvReac Type Severity Reaction Status Date / Time tomato [TOMATO] Allergy Mild HIVES Verified 01/09/23 14:44 DIFFICULTY BREATHING hydrocodone [HYDROCODONE] Allergy Unknown RASH, Verified 01/09/23 14:44 AIRWAY CLOSES ibuprofen [From MOTRIN] Allergy Unknown STOMACH Verified 01/09/23 14:44 UPSET, vomiting trazodone [TRAZODONE] Allergy Unknown UNKNOWN, Verified 01/09/23 14:44 stomach upset black pepper [BLACK PEPPER] AdvReac Severe DIFFICULTY Verified 01/09/23 14:44 BREATHING, hives lisinopril AdvReac Severe Anaphylaxis Verified 01/09/23 14:44 PMFSH Past Medical History 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 Diverticulosis GERD (gastroesophageal reflux disease) History of bipolar disorder History of schizophrenia Hypercholesterolemia Hypertension Insomnia Numbness of left hand Renal calculi Spondylosis of lumbar spine Type 2 diabetes mellitus with hyperglycemia Vitamin D deficiency Surgical History H/O: hysterectomy History of tubal ligation Hx of bariatric surgery Family History Family History Father Medical history unknown Mother Medical history unknown Paternal Aunt Uterine cancer Diabetes Hypertension Paternal Uncle Liver cancer Heart attack Maternal Aunt Stroke Family/Other Chronic mental illness Sister Uterine cancer Schizophrenia Brother Substance abuse Other Mental health disorder Social History Social History Household Members: None Housing: Apartment Do you presently have visiting nurse or other home services: Yes Alcohol intake: current Alcohol intake frequency: holidays/special occasions only Patient Tobacco Use Status: Never used Tobacco Smoked in Last 30 Days: Yes e-Cigarette/Vaping Use: Never Used Second Hand Smoke Exposure: No Use of substances other than those prescribed or required for medical reasons: No Any prior treatment program specific to substance use: No Advance Directives: No Advance Directives Information Provided: Yes Patient : No service: No Current occupational status: disabled Current occupational exposures/hazards: No Cognitive needs: No Hearing needs: No Vision needs: No Physical Exam ED Vital Signs: BMI result Body Mass Index 18.7 Course Course Course Narrative: RME performed by Lolly Thacker PA-C. Patient is a 42 year old assigned female at presenting to the emergency department with feeling like bumps are going from inside her mouth to down her throat. Labs ordered. Patient placed back in the waiting room pending room availability and results. Dr. Cottrell saw and discharged this patient. Dr. Cottrell created, completed, and signed his own note. Please refer to Dr. Cottrell's note. Medications Administered Discontinued Medications Generic Name Dose Route Start Last Admin Trade Name Freq PRN Reason Stop Dose Admin Al Hydroxide/Mg Hydroxide 30 ml 01/19/23 22:04 01/19/23 22:14 Magnesium Hydrox/Alum Hydrox 30 Ml Oral.Susp PO 01/19/23 22:05 30 ml ONCE ONE Administration Medical Decision Making Lab Data 01/19/23 18:08 01/19/23 18:08 Labs: Lab Results 01/19/23 01/19/23 01/19/23 Range/Units 18:08 18:08 18:08 WBC 4.9 (4.8-10.8) X10*3/uL RBC 4.43 D (4.20-5.50) X10*6/uL Hgb 13.3 D (12.0-16.0) g/dl Hct 40.4 D (37.0-47.0) % MCV 91.2 (80.0-98.0) fL MCH 30.0 (27.0-33.0) pg MCHC 32.9 (31.0-35.0) g/dl RDW 12.3 (11.0-16.0) % Plt Count 348 (160-400) X10*3/uL MPV 10.5 (9.4-12.3) fL Immature Gran % (Auto) 0.2 (0.0-0.4) % Neut % (Auto) 61.9 (45-73) % Lymph % (Auto) 30.0 (20-40) % Fajardo % (Auto) 6.7 (2-11) % Eos % (Auto) 0.4 (0-4) % Baso % (Auto) 0.8 (0-2) % Lymph # (Auto) 1.5 (1.2-4.9) X10*3/uL Fajardo # (Auto) 0.3 (0.1-1.2) X10*3/uL Eos # (Auto) 0.0 (0.0-0.4) X10*3/uL Baso # (Auto) 0.0 (0.0-0.2) X10*3/uL Abs Immat Gran (auto) 0.01 (0.00-0.03) X10*3/uL Absolute Neuts (auto) 3.1 (2.0-8.3) x10*3/uL Absolute Nucleated RBC 0.000 (0.0-0.012) X10*3/uL Nucleated RBC % (auto) 0.0 (0.0-0.2) /100WBC Sodium 140 (135-145) mmol/L Potassium 4.4 (3.3-5.1) mmol/L Chloride 102 (96-108) mmol/L Carbon Dioxide 26 (22-29) mmol/L Anion Gap 16 (12-20) BUN 20 H (9-16) mg/dL Creatinine 0.69 (0.5-1.4) mg/dL Estim Creat Clear Calc 77.5 Estimated GFR > 60 POC Glucose (60-115) mg/dL Random Glucose 87 (60-115) mg/dL Calcium 10.1 D (8.4-10.2) mg/dL Magnesium 2.4 (1.6-2.6) mg/dL Total Bilirubin 0.5 (0.0-1.0) mg/dL AST 14 (5-31) U/L ALT 10 (0-31) U/L Alkaline Phosphatase 68 (39-117) U/L Total Protein 8.2 H (6.5-8.0) g/dL Albumin 4.9 (3.5-5.0) g/dL COVID-19 ([facility]) (Negative) COVID-19 Clin Com Influenza Type A ([facility]) Negative (Negative) Influenza Type B ([facility]GER) Negative (Negative) Influenza A & B Note See Note S. pyogenes GrpA BR[facility]GER (Negative) 01/19/23 01/19/23 01/19/23 Range/Units 18:08 18:11 22:08 WBC (4.8-10.8) X10*3/uL RBC (4.20-5.50) X10*6/uL Hgb (12.0-16.0) g/dl Hct (37.0-47.0) % MCV (80.0-98.0) fL MCH (27.0-33.0) pg MCHC (31.0-35.0) g/dl RDW (11.0-16.0) % Plt Count (160-400) X10*3/uL MPV (9.4-12.3) fL Immature Gran % (Auto) (0.0-0.4) % Neut % (Auto) (45-73) % Lymph % (Auto) (20-40) % Fajardo % (Auto) (2-11) % Eos % (Auto) (0-4) % Baso % (Auto) (0-2) % Lymph # (Auto) (1.2-4.9) X10*3/uL Fajardo # (Auto) (0.1-1.2) X10*3/uL Eos # (Auto) (0.0-0.4) X10*3/uL Baso # (Auto) (0.0-0.2) X10*3/uL Abs Immat Gran (auto) (0.00-0.03) X10*3/uL Absolute Neuts (auto) (2.0-8.3) x10*3/uL Absolute Nucleated RBC (0.0-0.012) X10*3/uL Nucleated RBC % (auto) (0.0-0.2) /100WBC Sodium (135-145) mmol/L Potassium (3.3-5.1) mmol/L Chloride (96-108) mmol/L Carbon Dioxide (22-29) mmol/L Anion Gap (12-20) BUN (9-16) mg/dL Creatinine (0.5-1.4) mg/dL Estim Creat Clear Calc Estimated GFR POC Glucose 77 (60-115) mg/dL Random Glucose (60-115) mg/dL Calcium (8.4-10.2) mg/dL Magnesium (1.6-2.6) mg/dL Total Bilirubin (0.0-1.0) mg/dL AST (5-31) U/L ALT (0-31) U/L Alkaline Phosphatase (39-117) U/L Total Protein (6.5-8.0) g/dL Albumin (3.5-5.0) g/dL COVID-19 ([facility]) Negative (Negative) COVID-19 Clin Com See Note Influenza Type A ([facility]) (Negative) Influenza Type B ([facility]) (Negative) Influenza A & B Note S. pyogenes GrpA [facility] Negative (Negative) Discharge Plan Discharge Clinical Impression: Esophagitis determined by endoscopy, Gastritis Patient Disposition: Home, Self-Care Instructions: Gastritis (DC), Esophagitis (ED) Prescriptions: New alum-mag hydroxide-simeth [Maalox Advanced] 200-200-20 mg/5 mL suspension 5 ml PO 5XD PRN (Reason: indigestion) Qty: 355 0RF Rx Instructions: administer between meals and at bedtime No Action (DME) blood pressure monitor [Blood Pressure Kit] Kit See Rx Instructions .Route Qty: 1 0RF Rx Instructions: As directed (DME) CANE See Rx Instructions .Route .MEDSUPPLY Qty: 1 0RF Rx Instructions: As directed (DME) WRIST BRACE See Rx Instructions .Route .MEDSUPPLY Qty: 1 0RF Rx Instructions: As directed (DME) BATH CHAIR See Rx Instructions .Route .MEDSUPPLY Qty: 1 0RF Rx Instructions: As directed (DME) LIFELINE ALERT SYSTEM See Rx Instructions .Route .MEDSUPPLY Qty: 1 0RF Rx Instructions: As directed (DME) ALCOHOL PADS See Rx Instructions .Route .MEDSUPPLY Qty: 100 3RF Rx Instructions: As directed (DME) ROLLATOR See Rx Instructions .Route .MEDSUPPLY Qty: 1 0RF Rx Instructions: As directed (DME) WRIST SPLINT Right and Left hand See Rx Instructions .Route .MEDSUPPLY Qty: 1 0RF Rx Instructions: As directed (DME) SHOWER WAND See Rx Instructions .Route .MEDSUPPLY Qty: 1 0RF Rx Instructions: As directed (DME) SHOWER BAR See Rx Instructions .Route .MEDSUPPLY Qty: 1 0RF Rx Instructions: As directed (DME) Bedside commode See Rx Instructions .Route .MEDSUPPLY Qty: 1 0RF Rx Instructions: As directed (DME) Bed pads See Rx Instructions .Route .MEDSUPPLY Qty: 100 12RF Rx Instructions: As directed (DME) SANITARY PADS See Rx Instructions .Route .MEDSUPPLY Qty: 100 12RF Rx Instructions: As directed simethicone 40 mg/0.6 mL drops,suspension 0.6 ml PO BID-TID PRN (Reason: abdominal distention) Qty: 15 0RF sucralfate [Carafate] 100 mg/mL suspension 5 ml PO QID Qty: 1000 0RF Rx Instructions: swish in mouth and swallow; use after food/drink omeprazole magnesium [Prilosec OTC] 20 mg tablet,delayed release (DR/EC) 20 mg PO BID Qty: 30 0RF ondansetron 4 mg tablet,disintegrating 4 mg PO Q8-12H PRN (Reason: nausea and vomiting) Qty: 10 0RF fluticasone propionate [Flonase Allergy Relief] 50 mcg/actuation spray,suspension 1 spray intranasal DAILY Qty: 100 0RF Rx Instructions: administer into each nostril (DME) blood-glucose meter [OneTouch Verio Meter] Misc See Rx Instructions .Route Rx Instructions: As directed (DME) OneTouch Verio test strips Strip See Rx Instructions .Route Rx Instructions: As directed 3 times a day (DME) lancets [OneTouch Delica Lancets] 33 gauge misc See Rx Instructions .Route Rx Instructions: As directed 3 times a day pantoprazole [address] for susp in packet 40 mg PO BID Qty: 60 5RF Ensure Complete 0.1 gram-1.18 kcal/mL liquid 1 ea PO TID Qty: 1184 2RF Referrals: Po,Deirdre Raymundo MD [Primary Care Provider] - Carlos Multani MD [Physician] - 01/22/23 Interventions: ED Discharge Assessment Last Done: 01/19/23 22:59 Discharge Date/Time: 01/19/23 23:00 Print Language: Belarusian
[2023-01-19 18:12] LABS: MANUAL DIFF FLAG NO
[2023-01-19 18:38] LABS: IDNOW Serial# BCCEAD1C
[2023-01-19 18:39] LABS: COVID-19 Test Negative (Negative); IDNOW Serial# 08D9AD1C; Influenza A Negative (Negative); Influenza B2 Negative (Negative)
[2023-01-19 18:40] LABS: Basophils Percent Auto 0.8 % (0-2); Eosinophils Percent Auto 0.4 % (0-4); Hematocrit 40.4 % (37.0-47.0); Hemoglobin 13.3 g/dl (12.0-16.0); Imm Gran Abs Auto 0.01 X10*3/uL (0.00-0.03); Imm Gran Pct Auto 0.2 % (0.0-0.4); Lymphocytes Absolute Auto 1.5 X10*3/uL (1.2-4.9); Mean Corpuscular HGB Conc 32.9 g/dl (31.0-35.0); Mean Corpuscular Volume 91.2 fL (80.0-98.0); Mean Platelet Volume 10.5 fL (9.4-12.3); Monocytes Absolute Auto 0.3 X10*3/uL (0.1-1.2); Monocytes Percent Auto 6.7 % (2-11); Neutrophils Absolute Auto 3.1 x10*3/uL (2.0-8.3); Neutrophils Percent Auto 61.9 % (45-73); Platelet Count 348 X10*3/uL (160-400); Red Blood Count 4.43 X10*6/uL (4.20-5.50); Red Cell Distribution Width 12.3 % (11.0-16.0); White Blood Count 4.9 X10*3/uL (4.8-10.8)
[2023-01-19 18:41] LABS: IDNOW Serial# 6674DD1D; Strep A Nucleic Acid Negative (Negative)
[2023-01-19 19:42] LABS: Alanine Aminotransferase 10 U/L (0-31); Albumin Level 4.9 g/dL (3.5-5.0); Alkaline Phosphatase 68 U/L (39-117); Anion Gap 16 (12-20); Aspartate Amino Transferase 14 U/L (5-31); Bilirubin Total 0.5 mg/dL (0.0-1.0); Blood Urea Nitrogen 20 mg/dL (9-16); Calcium 10.1 mg/dL (8.4-10.2); Carbon Dioxide 26 mmol/L (22-29); Chloride 102 mmol/L (96-108); Creatinine Clr Calc Pharmacy 77.5; Estimated Glomerular Filt Rate > 60; Glucose Random 87 mg/dL (60-115); Magnesium 2.4 mg/dL (1.6-2.6); Potassium 4.4 mmol/L (3.3-5.1); Sodium 140 mmol/L (135-145); Total Protein 8.2 g/dL (6.5-8.0)
[2023-01-19 20:00] VITALS: BP 127/75; PULSE 54; RESP 16; TEMP 36.7; O2SAT 100
--- NOTE | 2023-01-19 21:59 | PC.NURSE ---
pt aox4, reporting throat and tongue pain. some bumps visualized on the back of tounge.
--- NOTE | 2023-01-19 22:07 | ED.GENADULT ---
HPI - General Adult General Chief complaint: Dental/Oral Stated complaint: Dental issues/Abdominal discomfort Time Seen by Provider: 01/19/23 21:02 History of Present Illness HPI narrative: Patient is a 42-year-old complaining of having pain to the back of the throat pain to the epigastric area very similar to pain that she has been having for the last 8 months. Patient been through gastric sleeve surgery at [facility]. Been followed by a GI specialist at [facility]. In addition patient also had an endoscopy done by the bariatric surgeon at [facility]. It showed gastritis. Patient is already on pantoprazole twice a day. Carafate. Told to eat small meals. Continue to have the similar symptoms. The symptoms are persistent and not changed. Not associated with chest pain not associated with diaphoresis no fever no chills. No chest pain or shortness of breath no diaphoresis. Related Data Home Medications Medication Instructions Recorded Confirmed blood sugar diagnostic ([facility] 08/15/22 01/03/23 Verio test strips) blood-glucose meter ([facility] 08/15/22 01/03/23 Verio Meter) lancets 33 gauge ([facility] 08/15/22 01/03/23 Lancets) Previous Rx's Medication Instructions Recorded blood pressure monitor (Blood #1 10/31/21 Pressure Kit) BATH CHAIR #1 ea 01/31/22 CANE #1 01/31/22 LIFELINE ALERT SYSTEM #1 01/31/22 WRIST BRACE #1 ea 01/31/22 ALCOHOL PADS #100 ea 02/21/22 ROLLATOR #1 05/23/22 WRIST SPLINT Right and Left hand #1 ea 05/30/22 SHOWER BAR #1 06/08/22 SHOWER WAND #1 06/08/22 Bed pads #100 ea 07/17/22 Bedside commode #1 ea 07/17/22 SANITARY PADS #100 07/17/22 fluticasone propionate 50 1 spray intranasal DAILY #100 mL 07/27/22 mcg/actuation nasal spray,suspension (Flonase Allergy Relief) simethicone 40 mg/0.6 mL oral 0.6 ml PO BID-TID PRN abdominal 11/08/22 drops,suspension distention #15 mL pantoprazole 40 mg granules 40 mg PO BID #60 packets 11/14/22 delayed-release for susp in packet sucralfate 100 mg/mL oral 5 ml PO QID #1,000 mL 11/21/22 suspension (Carafate) food supplemt, lactose-reduced 0.1 1 ea PO TID #1,184 mL 01/03/23 gram-1.18 kcal/ mL oral liquid (Ensure Complete) omeprazole magnesium 20 mg 20 mg PO BID #30 tabs 01/09/23 tablet,delayed release (Prilosec OTC) ondansetron 4 mg disintegrating 4 mg PO Q8-12H PRN nausea and 01/09/23 tablet vomiting #10 tabs Allergies Allergy/AdvReac Type Severity Reaction Status Date / Time tomato [TOMATO] Allergy Mild HIVES Verified 01/09/23 14:44 DIFFICULTY BREATHING hydrocodone [HYDROCODONE] Allergy Unknown RASH, Verified 01/09/23 14:44 AIRWAY CLOSES ibuprofen [From MOTRIN] Allergy Unknown STOMACH Verified 01/09/23 14:44 UPSET, vomiting trazodone [TRAZODONE] Allergy Unknown UNKNOWN, Verified 01/09/23 14:44 stomach upset black pepper [BLACK PEPPER] AdvReac Severe DIFFICULTY Verified 01/09/23 14:44 BREATHING, hives lisinopril AdvReac Severe Anaphylaxis Verified 01/09/23 14:44 Review of Systems Review of Systems: Positive pain to the epigastrium pain to the back of the throat burning sensation Yes all other systems are reviewed and are negative PMFSH Past Medical History Attestation statement: The following information was validated with the patient. 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 Diverticulosis GERD (gastroesophageal reflux disease) History of bipolar disorder History of schizophrenia Hypercholesterolemia Hypertension Insomnia Numbness of left hand Renal calculi Spondylosis of lumbar spine Type 2 diabetes mellitus with hyperglycemia Vitamin D deficiency Surgical History H/O: hysterectomy History of tubal ligation Hx of bariatric surgery Family History Family History Father Medical history unknown Mother Medical history unknown Paternal Aunt Uterine cancer Diabetes Hypertension Paternal Uncle Liver cancer Heart attack Maternal Aunt Stroke Family/Other Chronic mental illness Sister Uterine cancer Schizophrenia Brother Substance abuse Other Mental health disorder Social History Social History Household Members: None Housing: Apartment Do you presently have visiting nurse or other home services: Yes Alcohol intake: current Alcohol intake frequency: holidays/special occasions only Patient Tobacco Use Status: Never used Tobacco Smoked in Last 30 Days: No e-Cigarette/Vaping Use: Never Used Second Hand Smoke Exposure: No Use of substances other than those prescribed or required for medical reasons: No Advance Directives: No Advance Directives Information Provided: No service: No Current occupational status: disabled Current occupational exposures/hazards: No Cognitive needs: No Hearing needs: No Vision needs: No Physical Exam ED Vital Signs: Vital Signs - 24 hr 01/19/23 17:47 01/19/23 20:00 Temperature 98.3 F 98.1 F Pulse Rate 64 54 Respiratory Rate 18 16 Blood Pressure 136/64 127/75 Pulse Oximetry 95 100 Oxygen Delivery Method Room Air Room Air BMI result Body Mass Index 18.7 Appearance: Alert. Oriented X3. No acute distress. Eyes: Pupils equal, round and reactive to light. ENT: Pharynx normal. Neck: Normal inspection. Neck supple. No lymph nodes noted. No crepitus CVS: Normal heart rate and rhythm. Pulses normal. Normal S1 and S2 Respiratory: No respiratory distress. Breath sounds normal. No Wheezing. No rales Abdomen: Soft and nontender. No rigidity. No distention. good BS x4 Skin: Skin warm and dry. Normal skin color. Normal skin turgor. Extremities: No lower extremity edema. Neurovascular intact to all extremities. No Lacerations. No Rash Neuro: Oriented X 3. No motor deficit. No sensory deficit. Moving all extermities. No slurred speech Medical Decision Making Medical Decision Making MDM Narrative: Patient has a long history of gastritis. History of esophagitis. History of having gastric sleeve surgery approximately 1 year ago. Patient had an endoscopy done within the last few months. It shows gastritis. Being placed on Carafate and also pantoprazole. Being followed by GI specialist at [facility]. Also being followed by bariatric surgery here at [facility]. Will ask patient to continue current treatment. Patient's electrolytes are unremarkable. Strep test was negative. Symptoms very similar to previous. Will discharge patient home. Differential Diagnosis Gastritis, strep, obstruction Lab Data MDM Lab Attestation statement: I reviewed the patient's lab results. 01/19/23 18:08 01/19/23 18:08 Labs: Lab Results 01/19/23 01/19/23 01/19/23 Range/Units 18:08 18:08 18:08 WBC 4.9 (4.8-10.8) X10*3/uL RBC 4.43 D (4.20-5.50) X10*6/uL Hgb 13.3 D (12.0-16.0) g/dl Hct 40.4 D (37.0-47.0) % MCV 91.2 (80.0-98.0) fL MCH 30.0 (27.0-33.0) pg MCHC 32.9 (31.0-35.0) g/dl RDW 12.3 (11.0-16.0) % Plt Count 348 (160-400) X10*3/uL MPV 10.5 (9.4-12.3) fL Immature Gran % (Auto) 0.2 (0.0-0.4) % Neut % (Auto) 61.9 (45-73) % Lymph % (Auto) 30.0 (20-40) % Stanley % (Auto) 6.7 (2-11) % Eos % (Auto) 0.4 (0-4) % Baso % (Auto) 0.8 (0-2) % Lymph # (Auto) 1.5 (1.2-4.9) X10*3/uL Stanley # (Auto) 0.3 (0.1-1.2) X10*3/uL Eos # (Auto) 0.0 (0.0-0.4) X10*3/uL Baso # (Auto) 0.0 (0.0-0.2) X10*3/uL Abs Immat Gran (auto) 0.01 (0.00-0.03) X10*3/uL Absolute Neuts (auto) 3.1 (2.0-8.3) x10*3/uL Absolute Nucleated RBC 0.000 (0.0-0.012) X10*3/uL Nucleated RBC % (auto) 0.0 (0.0-0.2) /100WBC Sodium 140 (135-145) mmol/L Potassium 4.4 (3.3-5.1) mmol/L Chloride 102 (96-108) mmol/L Carbon Dioxide 26 (22-29) mmol/L Anion Gap 16 (12-20) BUN 20 H (9-16) mg/dL Creatinine 0.69 (0.5-1.4) mg/dL Estim Creat Clear Calc 77.5 Estimated GFR > 60 Random Glucose 87 (60-115) mg/dL Calcium 10.1 D (8.4-10.2) mg/dL Magnesium 2.4 (1.6-2.6) mg/dL Total Bilirubin 0.5 (0.0-1.0) mg/dL AST 14 (5-31) U/L ALT 10 (0-31) U/L Alkaline Phosphatase 68 (39-117) U/L Total Protein 8.2 H (6.5-8.0) g/dL Albumin 4.9 (3.5-5.0) g/dL COVID-19 ([facility]ELA) (Negative) COVID-19 Clin Com Influenza Type A (BRIDGER) Negative (Negative) Influenza Type B (BRIDGER) Negative (Negative) Influenza A & B Note See Note S. pyogenes GrpA BRIDGER (Negative) 01/19/23 01/19/23 Range/Units 18:08 18:11 WBC (4.8-10.8) X10*3/uL RBC (4.20-5.50) X10*6/uL Hgb (12.0-16.0) g/dl Hct (37.0-47.0) % MCV (80.0-98.0) fL MCH (27.0-33.0) pg MCHC (31.0-35.0) g/dl RDW (11.0-16.0) % Plt Count (160-400) X10*3/uL MPV (9.4-12.3) fL Immature Gran % (Auto) (0.0-0.4) % Neut % (Auto) (45-73) % Lymph % (Auto) (20-40) % Stanley % (Auto) (2-11) % Eos % (Auto) (0-4) % Baso % (Auto) (0-2) % Lymph # (Auto) (1.2-4.9) X10*3/uL Stanley # (Auto) (0.1-1.2) X10*3/uL Eos # (Auto) (0.0-0.4) X10*3/uL Baso # (Auto) (0.0-0.2) X10*3/uL Abs Immat Gran (auto) (0.00-0.03) X10*3/uL Absolute Neuts (auto) (2.0-8.3) x10*3/uL Absolute Nucleated RBC (0.0-0.012) X10*3/uL Nucleated RBC % (auto) (0.0-0.2) /100WBC Sodium (135-145) mmol/L Potassium (3.3-5.1) mmol/L Chloride (96-108) mmol/L Carbon Dioxide (22-29) mmol/L Anion Gap (12-20) BUN (9-16) mg/dL Creatinine (0.5-1.4) mg/dL Estim Creat Clear Calc Estimated GFR Random Glucose (60-115) mg/dL Calcium (8.4-10.2) mg/dL Magnesium (1.6-2.6) mg/dL Total Bilirubin (0.0-1.0) mg/dL AST (5-31) U/L ALT (0-31) U/L Alkaline Phosphatase (39-117) U/L Total Protein (6.5-8.0) g/dL Albumin (3.5-5.0) g/dL COVID-19 (ANGELA) Negative (Negative) COVID-19 Clin Com See Note Influenza Type A (BRIDGER) (Negative) Influenza Type B (BRIDGER) (Negative) Influenza A & B Note S. pyogenes GrpA BRIDGER Negative (Negative) External Record Review External record reviewed: Inpatient record Chronic Conditions Gastritis, esophagitis, status post gastric bypass Discharge Plan Discharge Clinical Impression: Esophagitis determined by endoscopy, Gastritis Patient Disposition: Home, Self-Care Instructions: Gastritis (DC), Esophagitis (ED) Prescriptions: No Action (DME) blood pressure monitor [Blood Pressure Kit] Kit See Rx Instructions .Route Qty: 1 0RF Rx Instructions: As directed (DME) CANE See Rx Instructions .Route .MEDSUPPLY Qty: 1 0RF Rx Instructions: As directed (DME) WRIST BRACE See Rx Instructions .Route .MEDSUPPLY Qty: 1 0RF Rx Instructions: As directed ([facility]) BATH CHAIR See Rx Instructions .Route .MEDSUPPLY Qty: 1 0RF Rx Instructions: As directed (DME) LIFELINE ALERT SYSTEM See Rx Instructions .Route .MEDSUPPLY Qty: 1 0RF Rx Instructions: As directed (DME) ALCOHOL PADS See Rx Instructions .Route .MEDSUPPLY Qty: 100 3RF Rx Instructions: As directed ([facility]) ROLLATOR See Rx Instructions .Route .MEDSUPPLY Qty: 1 0RF Rx Instructions: As directed ([facility] [place]) WRIST SPLINT Right and Left hand See Rx Instructions .Route .MEDSUPPLY Qty: 1 0RF Rx Instructions: As directed ([facility] [place]) SHOWER WAND See Rx Instructions .Route .MEDSUPPLY Qty: 1 0RF Rx Instructions: As directed ([facility] [place]) SHOWER BAR See Rx Instructions .Route .MEDSUPPLY Qty: 1 0RF Rx Instructions: As directed ([facility] [place]) Bedside commode See Rx Instructions .Route .MEDSUPPLY Qty: 1 0RF Rx Instructions: As directed ([facility] [place]) Bed pads See Rx Instructions .Route .MEDSUPPLY Qty: 100 12RF Rx Instructions: As directed ([facility] [place]) SANITARY PADS See Rx Instructions .Route .MEDSUPPLY Qty: 100 12RF Rx Instructions: As directed simethicone 40 mg/0.6 mL drops,suspension 0.6 ml PO BID-TID PRN (Reason: abdominal distention) Qty: 15 0RF sucralfate [Carafate] 100 mg/mL suspension 5 ml PO QID Qty: 1000 0RF Rx Instructions: swish in mouth and swallow; use after food/drink omeprazole magnesium [Prilosec OTC] 20 mg tablet,delayed release (DR/EC) 20 mg PO BID Qty: 30 0RF ondansetron 4 mg tablet,disintegrating 4 mg PO Q8-12H PRN (Reason: nausea and vomiting) Qty: 10 0RF fluticasone propionate [Flonase Allergy Relief] 50 mcg/actuation spray,suspension 1 spray intranasal DAILY Qty: 100 0RF Rx Instructions: administer into each nostril (DME) blood-glucose meter [OneTouch Verio Meter] Misc See Rx Instructions .Route Rx Instructions: As directed (DME) OneTouch Verio test strips Strip See Rx Instructions .Route Rx Instructions: As directed 3 times a day (DME) lancets [OneTouch Delica Lancets] 33 gauge misc See Rx Instructions .Route Rx Instructions: As directed 3 times a day pantoprazole [address] for susp in packet 40 mg PO BID Qty: 60 5RF Ensure Complete 0.1 gram-1.18 kcal/mL liquid 1 ea PO TID Qty: 1184 2RF Referrals: Po,Deirdre Raymundo MD [Primary Care Provider] - Carlos Multani MD [Physician] - 01/22/23 Print Language: Serbian
[2023-01-19 22:12] LABS: Glucose, Whole Blood 77 mg/dL (60-115)
[2023-01-19] MEDS: Magnesium Hydrox/Alum Hydrox 30 ML ORAL.SUSP PO (22:14)
== END 2023-01-19 23:00 | disposition home or self-care (01) ==
PROVIDERS: Physician Assistant Medical; Emergency Provider Emergency Medicine Emergency Medical Services; PCP Internal Medicine
DX: K20.90 Esophagitis, unspecified without bleeding (principal); K29.00 Acute gastritis without bleeding; Z20.822 Contact with and (suspected) exposure to COVID-19; Z20.828 Contact with and (suspected) exposure to other viral communicable diseases; Z79.899 Other long term (current) drug therapy
CPT/HCPCS: 80053; 82947; 83735; 85025; 87502; 87635; 87651; 99283; 99284

== ENCOUNTER 2023-01-21 02:42 | Emergency (ER) | payer OTHER, SELFPAY ==
--- NOTE | 2023-01-21 03:00 | PC.NURSE ---
Pt to ED for C/o abdominal Pain, dehydration, lack of nutrition and possible food in epigastis due to eating food she is not suppose to eat. Pt states that she had a gastric sleeve last year and is on a strict diet. However, pt states she is hunger and ate 2 meatballs yesterday and now feels she cant quite digest the food. Also due to the sleeve, pt is having abdominal pain with the food intake she has chosen to eat. Pt otherwise in NAD.
[2023-01-21 03:08] VITALS: BP 107/65; PULSE 74; RESP 16; TEMP 37; O2SAT 100; BMI 20.2
--- NOTE | 2023-01-21 04:08 | ED.ABDPAIN ---
HPI - Abdominal Pain General Chief Complaint: Abdominal Pain Stated Complaint: abdominal pain, vomiting Time Seen by Provider: 01/21/23 03:29 History of Present Illness HPI narrative: Patient is a 42-year-old female was in the emergency department yesterday having an epigastric pain. Patient claims the pain has returned after she ate some meat balls. Has a history of gastritis. Has a history of gastric sleeve surgery. Had a previous endoscopy done it shows gastritis. Patient denies any fever chills. Is able to tolerate fluids. No diaphoresis. Patient is from home. No chest pain. No coughing or congestion or upper respiratory symptoms. No bloody stool. Positive bowel movement passing gas. Related Data Home Medications Medication Instructions Recorded Confirmed blood sugar diagnostic (OneTouch 08/15/22 01/03/23 Verio test strips) blood[facility]glucose meter ([facility] 08[facility]15[facility] 01/03/23 Verio Meter) lancets 33 gauge (OneTouch Delica 08/15/22 01/03/23 Lancets) Previous Rx's Medication Instructions Recorded blood pressure monitor (Blood #1 ea 10/31/21 Pressure Kit) BATH CHAIR #1 ea 01/31/22 CANE #1 ea 01/31/22 LIFELINE ALERT SYSTEM #1 ea 01/31/22 WRIST BRACE #1 ea 01/31/22 ALCOHOL PADS #100 ea 02/21/22 ROLLATOR #1 ea 05/23/22 WRIST SPLINT Right and Left hand #1 ea 05/30/22 SHOWER BAR #1 ea 06/08/22 SHOWER WAND #1 ea 06/08/22 Bed pads #100 ea 07/17/22 Bedside commode #1 ea 07/17/22 SANITARY PADS #100 ea 07/17/22 fluticasone propionate 50 1 spray intranasal DAILY #100 mL 07/27/22 mcg/actuation nasal spray,suspension (Flonase Allergy Relief) simethicone 40 mg/0.6 mL oral 0.6 ml PO BID-TID PRN abdominal 11/08/22 drops,suspension distention #15 mL pantoprazole 40 mg granules 40 mg PO BID #60 packets 11/14/22 delayed-release for susp in packet sucralfate 100 mg/mL oral 5 ml PO QID #1,000 mL 11/21/22 suspension (Carafate) food supplemt, lactose-reduced 0.1 1 ea PO TID #1,184 mL 01/03/23 gram-1.18 kcal/ mL oral liquid (Ensure Complete) omeprazole magnesium 20 mg 20 mg PO BID #30 tabs 01/09/23 tablet,delayed release (Prilosec OTC) ondansetron 4 mg disintegrating 4 mg PO Q8-12H PRN nausea and 01/09/23 tablet vomiting #10 tabs aluminum-mag hydroxide-simethicone 5 ml PO 5XD PRN indigestion #355 mL 01/19/23 200 mg-200 mg-20 mg/5 mL oral susp (Maalox Advanced) Allergies Allergy/AdvReac Type Severity Reaction Status Date / Time tomato [TOMATO] Allergy Mild HIVES Verified 01/09/23 14:44 DIFFICULTY BREATHING hydrocodone [HYDROCODONE] Allergy Unknown RASH, Verified 01/09/23 14:44 AIRWAY CLOSES ibuprofen [From MOTRIN] Allergy Unknown STOMACH Verified 01/09/23 14:44 UPSET, vomiting trazodone [TRAZODONE] Allergy Unknown UNKNOWN, Verified 01/09/23 14:44 stomach upset black pepper [BLACK PEPPER] AdvReac Severe DIFFICULTY Verified 01/09/23 14:44 BREATHING, hives lisinopril AdvReac Severe Anaphylaxis Verified 01/09/23 14:44 Review of Systems Review of Systems Abdominal pain in the epigastric area PMF Past Medical History Attestation statement: The following information was validated with the patient. 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 Diverticulosis GERD (gastroesophageal reflux disease) History of bipolar disorder History of schizophrenia Hypercholesterolemia Hypertension Insomnia Numbness of left hand Renal calculi Spondylosis of lumbar spine Type 2 diabetes mellitus with hyperglycemia Vitamin D deficiency Surgical History H/O: hysterectomy History of tubal ligation Hx of bariatric surgery Family History Family History Father Medical history unknown Mother Medical history unknown Paternal Aunt Uterine cancer Diabetes Hypertension Paternal Uncle Liver cancer Heart attack Maternal Aunt Stroke Family/Other Chronic mental illness Sister Uterine cancer Schizophrenia Brother Substance abuse Other Mental health disorder Social History Social History Household Members: None Housing: Apartment Do you presently have visiting nurse or other home services: Yes Alcohol intake: current Alcohol intake frequency: holidays/special occasions only Patient Tobacco Use Status: Never used Tobacco Smoked in Last 30 Days: Yes e-Cigarette/Vaping Use: Never Used Second Hand Smoke Exposure: No Use of substances other than those prescribed or required for medical reasons: No Any prior treatment program specific to substance use: No Advance Directives: No Advance Directives Information Provided: Yes Patient : No service: No Current occupational status: disabled Current occupational exposures/hazards: No Cognitive needs: No Hearing needs: No Vision needs: No Physical Exam ED Vital Signs: Vital Signs - 24 hr 01/21/23 03:08 01/21/23 03:41 Temperature 98.6 F Pulse Rate 74 Respiratory Rate 16 Blood Pressure 107/65 Pulse Oximetry 100 Oxygen Delivery Method Room Air Room Air BMI result Body Mass Index 20.2 Appearance: Alert. Oriented X3. No acute distress. Eyes: Pupils equal, round and reactive to light. ENT: Pharynx normal. Neck: Normal inspection. Neck supple. No lymph nodes noted. No crepitus CVS: Normal heart rate and rhythm. Pulses normal. Normal S1 and S2 Respiratory: No respiratory distress. Breath sounds normal. No Wheezing. No rales Abdomen: Soft and nontender. No rigidity. No distention. good BS x4 Skin: Skin warm and dry. Normal skin color. Normal skin turgor. Extremities: No lower extremity edema. Neurovascular intact to all extremities. No Lacerations. No Rash Neuro: Oriented X 3. No motor deficit. No sensory deficit. Moving all extermities. No slurred speech Medical Decision Making Medical Decision Making MDM Narrative: Patient has a history of gastritis tolerating p.o. there is no signs of stricture. Patient has follow-up with her gastric sleeve position. Also had previous workup by GI in the past. Symptoms consistent with having gastritis. Already on sucralfate. Already on PPI. Will discharge patient home. Told the eat small meals. Close follow-up. Patient's labs showed no evidence of liver issues. CT scan was done in November for same symptoms was grossly negative. Considering patient's symptoms at the same elected not to get a CT scan today. Symptomatic lesion feels much relief. Will discharge Differential Diagnosis Gastritis, pancreatitis, reflux Lab Data MDM Lab Attestation statement: I reviewed the patient's lab results. 01/21/23 04:43 01/21/23 05:37 Labs: Lab Results 01/21/23 01/21/23 Range/Units 04:43 05:37 WBC 3.7 L (4.8-10.8) X10*3/uL RBC 3.66 L (4.20-5.50) X10*6/uL Hgb 10.9 L (12.0-16.0) g/dl Hct 33.1 L (37.0-47.0) % MCV 90.4 (80.0-98.0) fL MCH 29.8 (27.0-33.0) pg MCHC 32.9 (31.0-35.0) g/dl RDW 12.2 (11.0-16.0) % Plt Count 325 (160-400) X10*3/uL MPV 9.5 (9.4-12.3) fL Immature Gran % (Auto) 0.3 (0.0-0.4) % Neut % (Auto) 41.3 L (45-73) % Lymph % (Auto) 45.8 H (20-40) % [place] % (Auto) 9.1 (2-11) % Eos % (Auto) 2.4 (0-4) % Baso % (Auto) 1.1 (0-2) % Lymph # (Auto) 1.7 (1.2-4.9) X10*3/uL [place] # (Auto) 0.3 (0.1-1.2) X10*3/uL Eos # (Auto) 0.1 (0.0-0.4) X10*3/uL Baso # (Auto) 0.0 (0.0-0.2) X10*3/uL Abs Immat Gran (auto) 0.01 (0.00-0.03) X10*3/uL Absolute Neuts (auto) 1.5 L (2.0-8.3) x10*3/uL Absolute Nucleated RBC 0.000 (0.0-0.012) X10*3/uL Nucleated RBC % (auto) 0.0 (0.0-0.2) /100WBC Sodium 142 (135-145) mmol/L Potassium 4.1 (3.3-5.1) mmol/L Chloride 108 (96-108) mmol/L Carbon Dioxide 27 (22-29) mmol/L Anion Gap 11 L (12-20) BUN 12 (9-16) mg/dL Creatinine 0.59 (0.5-1.4) mg/dL Estim Creat Clear Calc 84.7 Estimated GFR > 60 Random Glucose 86 (60-115) mg/dL Calcium 7.8 L D (8.4-10.2) mg/dL Total Bilirubin 0.1 (0.0-1.0) mg/dL Direct Bilirubin < 0.2 (0.0-0.5) mg/dL AST 10 (5-31) U/L ALT 7 (0-31) U/L Alkaline Phosphatase 45 (39-117) U/L Total Protein 5.4 L (6.5-8.0) g/dL Albumin 3.4 L (3.5-5.0) g/dL Lipase 17 (8-78) U/L Chronic Conditions Gastric bypass gastric sleeve, gastritis Medications Administered Discontinued Medications Generic Name Dose Route Start Last Admin Trade Name Freq PRN Reason Stop Dose Admin Al Hydroxide/Mg Hydroxide 30 ml 01/21/23 04:06 01/21/23 04:52 Magnesium Hydrox/Alum Hydrox 30 Ml Oral.Susp PO 01/21/23 04:07 30 ml ONCE ONE Administration Sodium Chloride 1,000 mls @ 999 mls/hr 01/21/23 04:15 01/21/23 04:53 Ns IV 01/21/23 05:15 999 mls/hr .Q1H1M OSBALDO Administration Ondansetron HCl 4 mg 01/21/23 04:06 01/21/23 04:52 Ondansetron Hcl 4 Mg/2 Ml Vial IVPUSH 01/21/23 04:07 4 mg ONCE ONE Administration Discharge Plan Discharge Clinical Impression: Gastritis Patient Disposition: Home, Self-Care Instructions: Gastritis (DC) Prescriptions: No Action (DME) blood pressure monitor [Blood Pressure Kit] Kit See Rx Instructions .Route Qty: 1 0RF Rx Instructions: As directed (DME) CANE See Rx Instructions .Route .MEDSUPPLY Qty: 1 0RF Rx Instructions: As directed (DME) WRIST BRACE See Rx Instructions .Route .MEDSUPPLY Qty: 1 0RF Rx Instructions: As directed (DME) BATH CHAIR See Rx Instructions .Route .MEDSUPPLY Qty: 1 0RF Rx Instructions: As directed (DME) LIFELINE ALERT SYSTEM See Rx Instructions .Route .MEDSUPPLY Qty: 1 0RF Rx Instructions: As directed (DME) ALCOHOL PADS See Rx Instructions .Route .MEDSUPPLY Qty: 100 3RF Rx Instructions: As directed (DME) ROLLATOR See Rx Instructions .Route .MEDSUPPLY Qty: 1 0RF Rx Instructions: As directed (DME) WRIST SPLINT Right and Left hand See Rx Instructions .Route .MEDSUPPLY Qty: 1 0RF Rx Instructions: As directed (DME) SHOWER WAND See Rx Instructions .Route .MEDSUPPLY Qty: 1 0RF Rx Instructions: As directed (DME) SHOWER BAR See Rx Instructions .Route .MEDSUPPLY Qty: 1 0RF Rx Instructions: As directed (DME) Bedside commode See Rx Instructions .Route .MEDSUPPLY Qty: 1 0RF Rx Instructions: As directed (DME) Bed pads See Rx Instructions .Route .MEDSUPPLY Qty: 100 12RF Rx Instructions: As directed (DME) SANITARY PADS See Rx Instructions .Route .MEDSUPPLY Qty: 100 12RF Rx Instructions: As directed simethicone 40 mg/0.6 mL drops,suspension 0.6 ml PO BID-TID PRN (Reason: abdominal distention) Qty: 15 0RF sucralfate [Carafate] 100 mg/mL suspension 5 ml PO QID Qty: 1000 0RF Rx Instructions: swish in mouth and swallow; use after food/drink omeprazole magnesium [Prilosec OTC] 20 mg tablet,delayed release (DR/EC) 20 mg PO BID Qty: 30 0RF ondansetron 4 mg tablet,disintegrating 4 mg PO Q8-12H PRN (Reason: nausea and vomiting) Qty: 10 0RF alum-mag hydroxide-simeth [Maalox Advanced] 200-200-20 mg/5 mL suspension 5 ml PO 5XD PRN (Reason: indigestion) Qty: 355 0RF Rx Instructions: administer between meals and at bedtime fluticasone propionate [Flonase Allergy Relief] 50 mcg/actuation spray,suspension 1 spray intranasal DAILY Qty: 100 0RF Rx Instructions: administer into each nostril (DME) blood-glucose meter [OneTouch Verio Meter] Mis See Rx Instructions .Route Rx Instructions: As directed (DME) OneTouch Verio test strips Strip See Rx Instructions .Route Rx Instructions: As directed 3 times a day (DME) lancets [OneTouch Delica Lancets] 33 gauge misc See Rx Instructions .Route Rx Instructions: As directed 3 times a day pantoprazole [address] for susp in packet 40 mg PO BID Qty: 60 5RF Ensure Complete 0.1 gram-1.18 kcal/mL liquid 1 ea PO TID Qty: 1184 2RF Referrals: Deirdre Cantrell MD [Primary Care Provider] - 01/23/23
[2023-01-21 04:48] LABS: Basophils Percent Auto 1.1 % (0-2); Eosinophils Absolute Auto 0.1 X10*3/uL (0.0-0.4); Eosinophils Percent Auto 2.4 % (0-4); Hematocrit 33.1 % (37.0-47.0); Hemoglobin 10.9 g/dl (12.0-16.0); Imm Gran Abs Auto 0.01 X10*3/uL (0.00-0.03); Imm Gran Pct Auto 0.3 % (0.0-0.4); Lymphocytes Absolute Auto 1.7 X10*3/uL (1.2-4.9); Lymphocytes Percent Auto 45.8 % (20-40); MANUAL DIFF FLAG NO; Mean Corpuscular HGB Conc 32.9 g/dl (31.0-35.0); Mean Corpuscular Hemoglobin 29.8 pg (27.0-33.0); Mean Corpuscular Volume 90.4 fL (80.0-98.0); Mean Platelet Volume 9.5 fL (9.4-12.3); Monocytes Absolute Auto 0.3 X10*3/uL (0.1-1.2); Monocytes Percent Auto 9.1 % (2-11); Neutrophils Absolute Auto 1.5 x10*3/uL (2.0-8.3); Neutrophils Percent Auto 41.3 % (45-73); Platelet Count 325 X10*3/uL (160-400); Red Blood Count 3.66 X10*6/uL (4.20-5.50); Red Cell Distribution Width 12.2 % (11.0-16.0); White Blood Count 3.7 X10*3/uL (4.8-10.8)
[2023-01-21] MEDS: Magnesium Hydrox/Alum Hydrox 30 ML ORAL.SUSP PO (04:52)
[2023-01-21] MEDS: ondansetron HCL 4 MG/2 ML VIAL IVPUSH (04:52)
[2023-01-21] MEDS: 0.9 % Sodium Chloride 1,000 ML 999 ML IV (04:53)
[2023-01-21 05:53] LABS: Anion Gap 11 (12-20)
[2023-01-21 05:58] LABS: Alanine Aminotransferase 7 U/L (0-31); Albumin Level 3.4 g/dL (3.5-5.0); Alkaline Phosphatase 45 U/L (39-117); Aspartate Amino Transferase 10 U/L (5-31); Bilirubin Direct < 0.2 mg/dL (0.0-0.5); Bilirubin Total 0.1 mg/dL (0.0-1.0); Blood Urea Nitrogen 12 mg/dL (9-16); Calcium 7.8 mg/dL (8.4-10.2); Carbon Dioxide 27 mmol/L (22-29); Chloride 108 mmol/L (96-108); Creatinine Clr Calc Pharmacy 84.7; Estimated Glomerular Filt Rate > 60; Glucose Random 86 mg/dL (60-115); Lipase 17 U/L (8-78); Potassium 4.1 mmol/L (3.3-5.1); Sodium 142 mmol/L (135-145); Total Protein 5.4 g/dL (6.5-8.0)
== END 2023-01-21 06:41 | disposition home or self-care (01) ==
PROVIDERS: Emergency Provider Emergency Medicine Emergency Medical Services; PCP Internal Medicine
DX: K29.70 Gastritis, unspecified, without bleeding (principal); Z98.84 Bariatric surgery status; Z79.899 Other long term (current) drug therapy
CPT/HCPCS: 36415; 80048; 80076; 83690; 85025; 96361; 96374; 99284; J2405

== ENCOUNTER → 2023-01-23 10:37 | Outpatient (BNVA) | payer OTHER, SELFPAY | PROVIDERS: PCP Internal Medicine; Visit Provider Dietitian, Registered | DX: R63.6 Underweight (principal); Z98.84 Bariatric surgery status; Z71.3 Dietary counseling and surveillance | CPT/HCPCS: 97802 ==

== ENCOUNTER 2023-01-25 07:31 | Emergency (ER) | payer OTHER, SELFPAY ==
[2023-01-25 07:35] VITALS: PULSE 72; RESP 20; TEMP 36.3; BMI 19.2
[2023-01-25 09:16] VITALS: RESP 16
--- NOTE | 2023-01-25 09:38 | ED_ITS ---
HPI - General Adult General Chief complaint: General Medical Time Seen by Provider: 01/25/23 09:25 Source: patient Mode of arrival: ambulatory Limitations: no limitations History of Present Illness HPI narrative: 42-year-old female presents with upper abdominal pain, nausea, vomiting and reflux. Patient has history of a gastric sleeve that was placed a little over year ago. Since then she has had complications which include significant esophagitis, gastritis. She is currently on pantoprazole 40 mg twice a day, Carafate, Maalox, viscous lidocaine. She reports having had an upper endoscopy which found a stricture in the esophagus and esophagitis. Patient describes her symptoms as severe. There is no clear relieving features. There certainly worsened by any attempts to eat. She needs to gain 20 lb and is therefore supplementing herself with Ensure 3 times daily. She is hoping to have a gastric sleeve reversed. Patient also notes having an acid the sensation in the back of her throat which is causing mucus production. Patient describes her pain and discomfort as a 9/10. Related Data Home Medications Medication Instructions Recorded Confirmed blood sugar diagnostic (OneTouch 08/15/22 01/03/23 Verio test strips) blood-glucose meter (OneTouch 08/15/22 01/03/23 Verio Meter) lancets 33 gauge (OneTouch Delica 08/15/22 01/03/23 Lancets) Previous Rx's Medication Instructions Recorded blood pressure monitor (Blood #1 ea 10/31/21 Pressure Kit) BATH CHAIR #1 ea 01/31/22 CANE #1 ea 01/31/22 LIFELINE ALERT SYSTEM #1 ea 01/31/22 WRIST BRACE #1 ea 01/31/22 ALCOHOL PADS #100 ea 02/21/22 ROLLATOR #1 ea 05/23/22 WRIST SPLINT Right and Left hand #1 ea 05/30/22 SHOWER BAR #1 ea 06/08/22 SHOWER WAND #1 ea 06/08/22 Bed pads #100 ea 07/17/22 Bedside commode #1 ea 07/17/22 SANITARY PADS #100 ea 07/17/22 fluticasone propionate 50 1 spray intranasal DAILY #100 mL 07/27/22 mcg/actuation nasal spray,suspension (Flonase Allergy Relief) simethicone 40 mg/0.6 mL oral 0.6 ml PO BID-TID PRN abdominal 11/08/22 drops,suspension distention #15 mL pantoprazole 40 mg granules 40 mg PO BID #60 packets 11/14/22 delayed-release for susp in packet sucralfate 100 mg/mL oral 5 ml PO QID #1,000 mL 11/21/22 suspension (Carafate) food supplemt, lactose-reduced 0.1 1 ea PO TID #1,184 mL 01/03/23 gram-1.18 kcal/ mL oral liquid (Ensure Complete) omeprazole magnesium 20 mg 20 mg PO BID #30 tabs 01/09/23 tablet,delayed release (Prilosec OTC) ondansetron 4 mg disintegrating 4 mg PO Q8-12H PRN nausea and 01/09/23 tablet vomiting #10 tabs aluminum-mag hydroxide-simethicone 5 ml PO 5XD PRN indigestion #355 mL 01/22/23 200 mg-200 mg-20 mg/5 mL oral susp (Maalox Advanced) tramadol 50 mg tablet 50 mg PO Q6H PRN pain 30 days #60 01/22/23 tabs acetaminophen 500 mg/15 mL oral 1,000 mg (30 mL) PO Q6H PRN pain 01/25/23 liquid #1,000 mL aluminum-mag hydroxide-simethicone 10 ml PO QID PRN indigestion #355 01/25/23 200 mg-200 mg-20 mg/5 mL oral susp mL (Advanced Antacid-Antigas) ondansetron 4 mg disintegrating 4 mg PO Q8H PRN nausea and 01/25/23 tablet vomiting #10 tabs mgyseeuxw-cyrmvynid-wihokhmy-scop 5 ml PO BID PRN indigestion #50 mL 01/25/23 16.2 mg-0.1037 mg/5 mL (5 mL) elixir () Allergies Allergy/AdvReac Type Severity Reaction Status Date / Time tomato [TOMATO] Allergy Mild HIVES Verified 01/09/23 14:44 DIFFICULTY BREATHING hydrocodone [HYDROCODONE] Allergy Unknown RASH, Verified 01/09/23 14:44 AIRWAY CLOSES ibuprofen [From MOTRIN] Allergy Unknown STOMACH Verified 01/09/23 14:44 UPSET, vomiting trazodone [TRAZODONE] Allergy Unknown UNKNOWN, Verified 01/09/23 14:44 stomach upset black pepper [BLACK PEPPER] AdvReac Severe DIFFICULTY Verified 01/09/23 14:44 BREATHING, hives lisinopril AdvReac Severe Anaphylaxis Verified 01/09/23 14:44 PMFSH Past Medical History 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 Diverticulosis GERD (gastroesophageal reflux disease) History of bipolar disorder History of schizophrenia Hypercholesterolemia Hypertension Insomnia Numbness of left hand Renal calculi Spondylosis of lumbar spine Type 2 diabetes mellitus with hyperglycemia Vitamin D deficiency Surgical History H/O: hysterectomy History of tubal ligation Hx of bariatric surgery Family History Family History Father Medical history unknown Mother Medical history unknown Paternal Aunt Uterine cancer Diabetes Hypertension Paternal Uncle Liver cancer Heart attack Maternal Aunt Stroke Family/Other Chronic mental illness Sister Uterine cancer Schizophrenia Brother Substance abuse Other Mental health disorder Social History Social History Household Members: None Housing: Apartment Do you presently have visiting nurse or other home services: Yes Alcohol intake: current Alcohol intake frequency: holidays/special occasions on ly Patient Tobacco Use Status: Never used Tobacco Smoked in Last 30 Days: No e-Cigarette/Vaping Use: Never Used Second Hand Smoke Exposure: No Use of substances other than those prescribed or required for medical reasons: No Advance Directives: No Advance Directives Information Provided: Yes service: No Current occupational status: disabled Current occupational exposures/hazards: No Cognitive needs: No Hearing needs: No Vision needs: No Physical Exam ED Vital Signs: Vital Signs - 24 hr 01/25/23 07:35 01/25/23 09:16 01/25/23 10:26 Temperature 97.3 F Pulse Rate 72 72 Respiratory Rate 20 16 16 Blood Pressure 115/80 BMI result Body Mass Index 19.2 Course Course Course Narrative: The workup is complete. Patient has a low blood sugar. She is eating food at this time. Her lab work shows no other significant acute abnormalities. I will prescribe the patient Maalox, which she can do at home as needed. Additionally, I will prescribe her Zofran and Tylenol. She can follow up with her bariatric provider in the coming days. Medications Administered Discontinued Medications Generic Name Dose Route Start Last Admin Trade Name Fabiola PRN Reason Stop Dose Admin Al Hydroxide/Mg Hydroxide 30 ml 01/25/23 09:41 01/25/23 10:17 Magnesium Hydrox/Alum Hydrox 30 Ml Oral.Susp PO 01/25/23 09:42 30 ml ONCE ONE Administration Belladonna Alkaloids/Phenobarbital 10 ml 01/25/23 09:41 01/25/23 10:17 Phenobarb/Hyoscy/Atropine/Scop 10 Ml Elixir PO 01/25/23 09:42 10 ml ONCE ONE Administration Sodium Chloride 1,000 mls @ 999 mls/hr 01/25/23 09:45 01/25/23 10:20 Ns IV 01/25/23 10:45 999 mls/hr .Q1H1M OSBALDO Administration Pantoprazole Sodium 40 mg 01/25/23 09:36 01/25/23 10:18 Pantoprazole Sodium 40 Mg/10 Ml Vial IVPUSH 01/25/23 09:37 40 mg ONCE ONE Administration Medical Decision Making Lab Data 01/25/23 10:12 01/25/23 10:12 Labs: Lab Results 01/25/23 01/25/23 01/25/23 Range/Units 10:12 10:12 10:45 WBC 5.1 (4.8-10.8) X10*3/uL RBC 3.81 L (4.20-5.50) X10*6/uL Hgb 11.6 L (12.0-16.0) g/dl Hct 35.2 L (37.0-47.0) % MCV 92.4 (80.0-98.0) fL MCH 30.4 (27.0-33.0) pg MCHC 33.0 (31.0-35.0) g/dl RDW 12.4 (11.0-16.0) % Plt Count 248 (160-400) X10*3/uL MPV 11.0 (9.4-12.3) fL Immature Gran % (Auto) 0.2 (0.0-0.4) % Neut % (Auto) 63.7 (45-73) % Lymph % (Auto) 26.7 (20-40) % [place] % (Auto) 7.8 (2-11) % Eos % (Auto) 0.6 (0-4) % Baso % (Auto) 1.0 (0-2) % Lymph # (Auto) 1.4 (1.2-4.9) X10*3/uL [place] # (Auto) 0.4 (0.1-1.2) X10*3/uL Eos # (Auto) 0.0 (0.0-0.4) X10*3/uL Baso # (Auto) 0.1 (0.0-0.2) X10*3/uL Abs Immat Gran (auto) 0.01 (0.00-0.03) X10*3/uL Absolute Neuts (auto) 3.3 (2.0-8.3) x10*3/uL Absolute Nucleated RBC 0.000 (0.0-0.012) X10*3/uL Nucleated RBC % (auto) 0.0 (0.0-0.2) /100WBC Sodium 139 (135-145) mmol/L Potassium 4.2 (3.3-5.1) mmol/L Chloride 104 (96-108) mmol/L Carbon Dioxide 26 (22-29) mmol/L Anion Gap 13 (12-20) BUN 9 (9-16) mg/dL Creatinine 0.65 (0.5-1.4) mg/dL Estim Creat Clear Calc 84.7 Estimated GFR > 60 POC Glucose 58 L* (60-115) mg/dL Random Glucose 81 (60-115) mg/dL Calcium 9.2 D (8.4-10.2) mg/dL Total Bilirubin 0.3 (0.0-1.0) mg/dL AST 14 (5-31) U/L ALT 9 (0-31) U/L Alkaline Phosphatase 53 (39-117) U/L Total Protein 7.1 (6.5-8.0) g/dL Albumin 4.3 (3.5-5.0) g/dL Lipase 18 (8-78) U/L Discharge Plan Discharge Clinical Impression: Esophagitis, Hypoglycemia Patient Disposition: Home, Self-Care Instructions: Non-diabetic Hypoglycemia (ED), Esophagitis (ED) Prescriptions: New alum-mag hydroxide-simeth [Advanced Antacid-Antigas] 200-200-20 mg/5 mL suspension 10 ml PO QID PRN (Reason: indigestion) Qty: 355 0RF Rx Instructions: administer between meals and at bedtime bloqcmbks-tgwlbq-ueoligwl-scop [] 16.2 mg-0.1037 mg/5 mL (5 mL) elixir 5 ml PO BID PRN (Reason: indigestion) Qty: 50 0RF ondansetron 4 mg tablet,disintegrating 4 mg PO Q8H PRN (Reason: nausea and vomiting) Qty: 10 0RF acetaminophen 500 mg/15 mL liquid 1,000 mg PO Q6H PRN (Reason: pain) Qty: 1000 0RF No Action (DME) blood pressure monitor [Blood Pressure Kit] Kit See Rx Instructions .Route Qty: 1 0RF Rx Instructions: As directed (DME) CANE See Rx Instructions .Route .MEDSUPPLY Qty: 1 0RF Rx Instructions: As directed (DME) WRIST BRACE See Rx Instructions .Route .MEDSUPPLY Qty: 1 0RF Rx Instructions: As directed (DME) BATH CHAIR See Rx Instructions .Route .MEDSUPPLY Qty: 1 0RF Rx Instructions: As directed (DME) LIFELINE ALERT SYSTEM See Rx Instructions .Route .MEDSUPPLY Qty: 1 0RF Rx Instructions: As directed (DME) ALCOHOL PADS See Rx Instructions .Route .MEDSUPPLY Qty: 100 3RF Rx Instructions: As directed (DME) ROLLATOR See Rx Instructions .Route .MEDSUPPLY Qty: 1 0RF Rx Instructions: As directed (DME) WRIST SPLINT Right and Left hand See Rx Instructions .Route .MEDSUPPLY Qty: 1 0RF Rx Instructions: As directed (DME) SHOWER WAND See Rx Instructions .Route .MEDSUPPLY Qty: 1 0RF Rx Instructions: As directed (DME) SHOWER BAR See Rx Instructions .Route .MEDSUPPLY Qty: 1 0RF Rx Instructions: As directed (DME) Bedside commode See Rx Instructions .Route .MEDSUPPLY Qty: 1 0RF Rx Instructions: As directed (DME) Bed pads See Rx Instructions .Route .MEDSUPPLY Qty: 100 12RF Rx Instructions: As directed (DME) SANITARY PADS See Rx Instructions .Route .MEDSUPPLY Qty: 100 12RF Rx Instructions: As directed simethicone 40 mg/0.6 mL drops,suspension 0.6 ml PO BID-TID PRN (Reason: abdominal distention) Qty: 15 0RF alum-mag hydroxide-simeth [Maalox Advanced] 200-200-20 mg/5 mL suspension 5 ml PO 5XD PRN (Reason: indigestion) Qty: 355 0RF Rx Instructions: administer between meals and at bedtime tramadol 50 mg tablet 50 mg PO Q6H PRN (Reason: pain) 30 Days Qty: 60 1RF sucralfate [Carafate] 100 mg/mL suspension 5 ml PO QID Qty: 1000 0RF Rx Instructions: swish in mouth and swallow; use after food/drink omeprazole magnesium [Prilosec OTC] 20 mg tablet,delayed release (DR/EC) 20 mg PO BID Qty: 30 0RF ondansetron 4 mg tablet,disintegrating 4 mg PO Q8-12H PRN (Reason: nausea and vomiting) Qty: 10 0RF fluticasone propionate [Flonase Allergy Relief] 50 mcg/actuation spray,suspension 1 spray intranasal DAILY Qty: 100 0RF Rx Instructions: administer into each nostril (DME) blood-glucose meter [[facility] Meter] [facility] See Rx Instructions .Route Rx Instructions: As directed (DME) OneTouch Verio test strips Strip See Rx Instructions .Route Rx Instructions: As directed 3 times a day (DME) lancets [OneTouch Delica Lancets] 33 gauge misc See Rx Instructions .Route Rx Instructions: As directed 3 times a day pantoprazole [address] for susp in packet 40 mg PO BID Qty: 60 5RF Ensure Complete 0.1 gram-1.18 kcal/mL liquid 1 ea PO TID Qty: 1184 2RF
[2023-01-25 10:15] LABS: MANUAL DIFF FLAG NO
[2023-01-25 10:16] LABS: Basophils Absolute Auto 0.1 X10*3/uL (0.0-0.2); Eosinophils Percent Auto 0.6 % (0-4); Hematocrit 35.2 % (37.0-47.0); Hemoglobin 11.6 g/dl (12.0-16.0); Imm Gran Abs Auto 0.01 X10*3/uL (0.00-0.03); Imm Gran Pct Auto 0.2 % (0.0-0.4); Lymphocytes Absolute Auto 1.4 X10*3/uL (1.2-4.9); Lymphocytes Percent Auto 26.7 % (20-40); Mean Corpuscular Hemoglobin 30.4 pg (27.0-33.0); Mean Corpuscular Volume 92.4 fL (80.0-98.0); Monocytes Absolute Auto 0.4 X10*3/uL (0.1-1.2); Monocytes Percent Auto 7.8 % (2-11); Neutrophils Absolute Auto 3.3 x10*3/uL (2.0-8.3); Neutrophils Percent Auto 63.7 % (45-73); Platelet Count 248 X10*3/uL (160-400); Red Blood Count 3.81 X10*6/uL (4.20-5.50); Red Cell Distribution Width 12.4 % (11.0-16.0); White Blood Count 5.1 X10*3/uL (4.8-10.8)
[2023-01-25] MEDS: Magnesium Hydrox/Alum Hydrox 30 ML ORAL.SUSP PO (10:17)
[2023-01-25] MEDS: PHENobarb/Hyoscy/Atropine/Scop 10 ML ELIXIR PO (10:17)
[2023-01-25] MEDS: Pantoprazole Sodium 40 MG/10 ML VIAL IVPUSH (10:18)
[2023-01-25] MEDS: 0.9 % Sodium Chloride 1,000 ML 999 ML IV (10:20)
[2023-01-25 10:26] VITALS: BP 115/80; PULSE 72; RESP 16
[2023-01-25 10:33] LABS: Alanine Aminotransferase 9 U/L (0-31); Albumin Level 4.3 g/dL (3.5-5.0); Alkaline Phosphatase 53 U/L (39-117); Anion Gap 13 (12-20); Aspartate Amino Transferase 14 U/L (5-31); Bilirubin Total 0.3 mg/dL (0.0-1.0); Blood Urea Nitrogen 9 mg/dL (9-16); Calcium 9.2 mg/dL (8.4-10.2); Carbon Dioxide 26 mmol/L (22-29); Chloride 104 mmol/L (96-108); Creatinine Clr Calc Pharmacy 84.7; Estimated Glomerular Filt Rate > 60; Glucose Random 81 mg/dL (60-115); Lipase 18 U/L (8-78); Potassium 4.2 mmol/L (3.3-5.1); Sodium 139 mmol/L (135-145); Total Protein 7.1 g/dL (6.5-8.0)
--- NOTE | 2023-01-25 10:46 | MHC.EDTECH ---
POC done 58.
[2023-01-25 10:49] LABS: Glucose, Whole Blood 58 mg/dL (60-115)
== END 2023-01-25 11:04 | disposition home or self-care (01) ==
PROVIDERS: Emergency Provider Emergency Medicine; PCP Internal Medicine
DX: K20.90 Esophagitis, unspecified without bleeding (principal); E11.649 Type 2 diabetes mellitus with hypoglycemia without coma; Z79.4 Long term (current) use of insulin; Z79.899 Other long term (current) drug therapy
CPT/HCPCS: 36415; 80053; 82947; 83690; 85025; 96361; 96374; 99284; 99285

== ENCOUNTER 2023-01-26 09:51 | Outpatient (REF) | payer OTHER, SELFPAY ==
--- NOTE | ~2023-01-26 | FL_ITS ---
EXAMINATION: XR FLUOROSCOPY UPPER GI WITH AIR CLINICAL INFORMATION: Esophagitis COMPARISON: Previous CT of the abdomen and pelvis November 2022 and barium swallow July 2022 TECHNIQUE: Upper GI was performed using thin and thick barium and effervescent granules. Patient declined barium tablet. FINDINGS: There is severe gastroesophageal reflux. There is mucosal irregularity of the mid and distal esophagus suggestive of esophagitis. There is a moderate stricture of the distal thoracic esophagus. This appears increased from July 2022. 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 This is similar to previous exam. The stomach is otherwise normal. There is fold thickening or bubbly bulb appearance to the duodenal bulb. This can be seen with hyperacidity. FLUOROSCOPY TIME: 1.6 minutes DOSE AREA PRODUCT: 4.7 singh per centimeter squared. Total dose 23 mgy. 46 saved fluoroscopic images. FL/FL upper GI w air IMPRESSION: Severe gastroesophageal reflux. Mucosal irregularity suggestive of esophagitis. Moderate distal esophageal stricture. These findings appear increased from July 2022. Correlation with endoscopy recommended. Postsurgical changes from gastric sleeve similar to previous exam. Prominent folds seen in the duodenal bulb or bubbly bulb appearance.
== END 2023-01-26 09:52 | disposition home or self-care (01) ==
LOC: HO.XRAY 09:51
PROVIDERS: PCP Internal Medicine; Visit Provider Physician Assistant
DX: R13.10 Dysphagia, unspecified (principal); K20.90 Esophagitis, unspecified without bleeding; R63.6 Underweight; Z90.3 Acquired absence of stomach [part of]
CPT/HCPCS: 74246

== ENCOUNTER 2023-01-29 01:41 | Emergency (ER) | payer OTHER, SELFPAY ==
[2023-01-29 01:42] VITALS: BP 121/86; PULSE 91; RESP 18; TEMP 36.7; O2SAT 99; BMI 20.6
[2023-01-29 02:10] LABS: MANUAL DIFF FLAG NO
[2023-01-29 02:11] LABS: Basophils Percent Auto 0.8 % (0-2); Eosinophils Absolute Auto 0.1 X10*3/uL (0.0-0.4); Hematocrit 33.5 % (37.0-47.0); Imm Gran Abs Auto 0.01 X10*3/uL (0.00-0.03); Imm Gran Pct Auto 0.3 % (0.0-0.4); Lymphocytes Absolute Auto 1.9 X10*3/uL (1.2-4.9); Lymphocytes Percent Auto 49.1 % (20-40); Mean Corpuscular HGB Conc 32.8 g/dl (31.0-35.0); Mean Corpuscular Hemoglobin 29.3 pg (27.0-33.0); Mean Corpuscular Volume 89.3 fL (80.0-98.0); Mean Platelet Volume 9.6 fL (9.4-12.3); Monocytes Absolute Auto 0.4 X10*3/uL (0.1-1.2); Monocytes Percent Auto 10.1 % (2-11); Neutrophils Absolute Auto 1.5 x10*3/uL (2.0-8.3); Neutrophils Percent Auto 37.7 % (45-73); Platelet Count 316 X10*3/uL (160-400); Red Blood Count 3.75 X10*6/uL (4.20-5.50)
--- NOTE | 2023-01-29 02:17 | PC.NURSE ---
reports last BM about 1 week ago. presents with c/o constipation/upper abd pain. has dysphagia and needs liquid stool softener
[2023-01-29 02:27] LABS: Alanine Aminotransferase 8 U/L (0-31); Albumin Level 4.3 g/dL (3.5-5.0); Alkaline Phosphatase 52 U/L (39-117); Anion Gap 11 (12-20); Aspartate Amino Transferase 13 U/L (5-31); Bilirubin Direct < 0.2 mg/dL (0.0-0.5); Bilirubin Total 0.1 mg/dL (0.0-1.0); Blood Urea Nitrogen 11 mg/dL (9-16); Calcium 9.3 mg/dL (8.4-10.2); Carbon Dioxide 26 mmol/L (22-29); Chloride 108 mmol/L (96-108); Creatinine Clr Calc Pharmacy 93.9; Estimated Glomerular Filt Rate > 60; Glucose Random 88 mg/dL (60-115); Lipase 27 U/L (8-78); Potassium 3.9 mmol/L (3.3-5.1); Sodium 141 mmol/L (135-145); Total Protein 6.9 g/dL (6.5-8.0)
[2023-01-29 03:55] VITALS: BP 124/87; PULSE 76; RESP 20; O2SAT 98
[2023-01-29 04:02] LABS: Appearance Urine Clear; Color Urine Yellow; Glucose Urine UA Negative (Negative); Leukocyte Esterase Urine Negative (Negative); Nitrite Urine Negative (Negative); Specific Gravity - Urine 1.025 (1.005-1.025); Urine Blood Negative (Negative); Urine Ketones Trace mg/dL (Negative); Urine Protein Trace mg/dL (Neg-Trace)
[2023-01-29 04:16] LABS: Bacteria Urine 3+ (None Seen); Hyaline Casts Urine 0-2 /LPF (0-2); WBC Urine 0-5 /HPF (0-5)
--- NOTE | 2023-01-29 04:51 | ED.ABDPAIN ---
HPI - Abdominal Pain General Chief Complaint: Abdominal Pain Stated Complaint: stomach pain Time Seen by Provider: 01/29/23 04:29 Source: patient Mode of arrival: ambulatory Limitations: no limitations History of Present Illness HPI narrative: 42-year-old female came in for evaluation of abdominal pain. Patient with known history of gastritis/esophagitis patient been instructed not to drink alcohol had few drinks yesterday started having abdominal pain, no vomiting, no diarrhea, no fever, no chills. Related Data Home Medications Medication Instructions Recorded Confirmed blood sugar diagnostic (OneTouch 08/15/22 01/03/23 Verio test strips) blood-glucose meter (OneTouch 08/15/22 01/03/23 Verio Meter) lancets 33 gauge (OneTouch Delica 08/15/22 01/03/23 Lancets) Previous Rx's Medication Instructions Recorded blood pressure monitor (Blood #1 ea 10/31/21 Pressure Kit) BATH CHAIR #1 ea 01/31/22 CANE #1 ea 01/31/22 LIFELINE ALERT SYSTEM #1 ea 01/31/22 WRIST BRACE #1 ea 01/31/22 ALCOHOL PADS #100 ea 02/21/22 ROLLATOR #1 ea 05/23/22 WRIST SPLINT Right and Left hand #1 ea 05/30/22 SHOWER BAR #1 ea 06/08/22 SHOWER WAND #1 ea 06/08/22 Bed pads #100 ea 07/17/22 Bedside commode #1 ea 07/17/22 SANITARY PADS #100 ea 07/17/22 fluticasone propionate 50 1 spray intranasal DAILY #100 mL 07/27/22 mcg/actuation nasal spray,suspension (Flonase Allergy Relief) simethicone 40 mg/0.6 mL oral 0.6 ml PO BID-TID PRN abdominal 11/08/22 drops,suspension distention #15 mL pantoprazole 40 mg granules 40 mg PO BID #60 packets 11/14/22 delayed-release for susp in packet sucralfate 100 mg/mL oral 5 ml PO QID #1,000 mL 11/21/22 suspension (Carafate) food supplemt, lactose-reduced 0.1 1 ea PO TID #1,184 mL 01/03/23 gram-1.18 kcal/ mL oral liquid (Ensure Complete) omeprazole magnesium 20 mg 20 mg PO BID #30 tabs 01/09/23 tablet,delayed release (Prilosec OTC) ondansetron 4 mg disintegrating 4 mg PO Q8-12H PRN nausea and 01/09/23 tablet vomiting #10 tabs aluminum-mag hydroxide-simethicone 5 ml PO 5XD PRN indigestion #355 mL 01/22/23 200 mg-200 mg-20 mg/5 mL oral susp (Maalox Advanced) tramadol 50 mg tablet 50 mg PO Q6H PRN pain 30 days #60 01/22/23 tabs acetaminophen 500 mg/15 mL oral 1,000 mg (30 mL) PO Q6H PRN pain 01/25/23 liquid #1,000 mL aluminum-mag hydroxide-simethicone 10 ml PO QID PRN indigestion #355 01/25/23 200 mg-200 mg-20 mg/5 mL oral susp mL (Advanced Antacid-Antigas) ondansetron 4 mg disintegrating 4 mg PO Q8H PRN nausea and 01/25/23 tablet vomiting #10 tabs rcfyytahe-ymxdfvyez-hqmmswbj-scop 5 ml PO BID PRN indigestion #50 mL 01/25/23 16.2 mg-0.1037 mg/5 mL (5 mL) elixir () omeprazole 40 mg capsule,delayed 40 mg PO DAILY #10 caps 01/29/23 release Allergies Allergy/AdvReac Type Severity Reaction Status Date / Time tomato [TOMATO] Allergy Mild HIVES Verified 01/09/23 14:44 DIFFICULTY BREATHING hydrocodone [HYDROCODONE] Allergy Unknown RASH, Verified 01/09/23 14:44 AIRWAY CLOSES ibuprofen [From MOTRIN] Allergy Unknown STOMACH Verified 01/09/23 14:44 UPSET, vomiting trazodone [TRAZODONE] Allergy Unknown UNKNOWN, Verified 01/09/23 14:44 stomach upset black pepper [BLACK PEPPER] AdvReac Severe DIFFICULTY Verified 01/09/23 14:44 BREATHING, hives lisinopril AdvReac Severe Anaphylaxis Verified 01/09/23 14:44 Review of Systems Review of Systems All other systems are reviewed and are negative Constitutional: Reports as per HPI and Reports no additional constitutional complaints Eyes: Reports as per HPI and Reports no additional eye complaints Reports system reviewed and no additional complaints, except as documented Cardiovascular: Reports as per HPI and Reports no additional cardiovascular complaints Respiratory: Reports as per HPI and Reports no additional respiratory complaints Gastrointestinal: Reports as per HPI and Reports no additional gastrointestinal complaints Genitourinary: Reports no additional female genitourinary complaints Musculoskeletal: Reports no additional musculoskeletal complaints Skin/Breast: Reports system reviewed and no additional complaints, except as docu Psychiatric: Reports no additional psychiatric complaints Endocrine: Reports no additional endocrine complaints Hematologic/Lymphatic: Reports no additional hematologic/lymphatic complaints Allergic/Immunologic: Reports no additional allergic/immunologic complaints Reports system reviewed and no additional complaints, except as documented and Reports Abnormal speech present [facility] Past Medical History 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 Diverticulosis GERD (gastroesophageal reflux disease) History of bipolar disorder History of schizophrenia Hypercholesterolemia Hypertension Insomnia Numbness of left hand Renal calculi Spondylosis of lumbar spine Type 2 diabetes mellitus with hyperglycemia Vitamin D deficiency Surgical History H/O: hysterectomy History of tubal ligation Hx of bariatric surgery Family History Family History Father Medical history unknown Mother Medical history unknown Paternal Aunt Uterine cancer Diabetes Hypertension Paternal Uncle Liver cancer Heart attack Maternal Aunt Stroke Family/Other Chronic mental illness Sister Uterine cancer Schizophrenia Brother Substance abuse Other Mental health disorder Social History Social History Household Members: None Housing: Apartment Do you presently have visiting nurse or other home services: Yes Alcohol intake: current Alcohol intake frequency: holidays/special occasions only Patient Tobacco Use Status: Never used Tobacco e-Cigarette/Vaping Use: Never Used Second Hand Smoke Exposure: No Advance Directives: No Advance Directives Information Provided: No service: No Current occupational status: disabled Current occupational exposures/hazards: No Cognitive needs: No Hearing needs: No Vision needs: No Physical Exam ED Vital Signs: Vital Signs - 24 hr 01/29/23 01:42 01/29/23 03:55 Temperature 98.1 F Pulse Rate 91 76 Respiratory Rate 18 20 Blood Pressure 121/86 124/87 Pulse Oximetry 99 98 Oxygen Delivery Method Room Air Room Air BMI result Body Mass Index 20.6 Vital signs have been reviewed as appeared to be correct. Blood pressure normal. Heart rate normal. Respiration rate normal. Temperature normal. Oxygen saturation normal. Appearance: Alert. Oriented X3. No acute distress. Head: Normal external exam. Normocephalic. Atraumatic. No Hua signs noted. No raccoon eyes noted Eyes: PERRLA. EOMI. Conjunctiva and sclera normal. Eyelids normal. ENT: TM's Normal. Pharynx normal. Uvula midline. Moist mucous membranes. No trismus noted. No drooling noted. No muffled voice noted. Neck: Normal inspection. Neck supple. FROM. No adenopathy. Thyroid Normal. No meningeal signs. No neck mass noted. CVS: Normal heart rate and rhythm. Heart sound normal. No murmurs noted. Pulses normal throughout. Respiratory: No respiratory distress. Painless inspiration. Breath sounds normal. No wheezes/rales/rhonchi noted. Chest nontender. No accessory muscle usage noted or decreased air movement noted. Abdomen: Soft and nontender. Bowel sounds normal in all 4 quadrants. No distention noted. No organomegaly noted. No visible injury noted. Back: No CVA tenderness. Full range of motion noted. Skin: Skin warm and dry. Normal skin color. Normal skin turgor. No rashes/lesions/lacerations noted. Extremities: No lower extremity edema. Extremities exhibit normal range of motion. Extremities nontender. Neuro: Oriented X 3. Cranial nerve exam: II-XII are grossly intact No motor deficit. No sensory deficit. Reflexes normal. Course Course Course Narrative: 42-year-old female with history of gastritis presented with abdominal pain after drinking alcohol, patient feels better. Unremarkable labs and CT abdomen and pelvis. Will discharge on Prilosec and follow-up with non destructive evaluation specialist Medical Decision Making Differential Diagnosis Differential Diagnoses: The differential diagnosis associated with the presentation includes (Colitis, small-bowel obstruction, gastritis, duodenitis, alcoholic gastritis, appendicitis, kidney stone, electrolyte abnormalities, severe anemia.) Admission/Observation Consideration of admission/observation: Escalation of care including admission/observation considered Lab Data MDM Lab Attestation statement: I reviewed the patient's lab results. 01/29/23 02:06 01/29/23 02:06 Labs: Lab Results 01/29/23 01/29/23 01/29/23 Range/Units 02:06 02:06 03:53 WBC 4.0 L (4.8-10.8) X10*3/uL RBC 3.75 L (4.20-5.50) X10*6/uL Hgb 11.0 L (12.0-16.0) g/dl Hct 33.5 L (37.0-47.0) % MCV 89.3 (80.0-98.0) fL MCH 29.3 (27.0-33.0) pg MCHC 32.8 (31.0-35.0) g/dl RDW 12.0 (11.0-16.0) % Plt Count 316 D (160-400) X10*3/uL MPV 9.6 (9.4-12.3) fL Immature Gran % (Auto) 0.3 (0.0-0.4) % Neut % (Auto) 37.7 L (45-73) % Lymph % (Auto) 49.1 H (20-40) % Barton % (Auto) 10.1 (2-11) % Eos % (Auto) 2.0 (0-4) % Baso % (Auto) 0.8 (0-2) % Lymph # (Auto) 1.9 (1.2-4.9) X10*3/uL Barton # (Auto) 0.4 (0.1-1.2) X10*3/uL Eos # (Auto) 0.1 (0.0-0.4) X10*3/uL Baso # (Auto) 0.0 (0.0-0.2) X10*3/uL Abs Immat Gran (auto) 0.01 (0.00-0.03) X10*3/uL Absolute Neuts (auto) 1.5 L (2.0-8.3) x10*3/uL Absolute Nucleated RBC 0.000 (0.0-0.012) X10*3/uL Nucleated RBC % (auto) 0.0 (0.0-0.2) /100WBC Sodium 141 (135-145) mmol/L Potassium 3.9 (3.3-5.1) mmol/L Chloride 108 (96-108) mmol/L Carbon Dioxide 26 (22-29) mmol/L Anion Gap 11 L (12-20) BUN 11 (9-16) mg/dL Creatinine 0.67 (0.5-1.4) mg/dL Estim Creat Clear Calc 93.9 Estimated GFR > 60 Random Glucose 88 (60-115) mg/dL Calcium 9.3 (8.4-10.2) mg/dL Total Bilirubin 0.1 (0.0-1.0) mg/dL Direct Bilirubin < 0.2 (0.0-0.5) mg/dL AST 13 (5-31) U/L ALT 8 (0-31) U/L Alkaline Phosphatase 52 (39-117) U/L Total Protein 6.9 (6.5-8.0) g/dL Albumin 4.3 (3.5-5.0) g/dL Lipase 27 (8-78) U/L Urine Color Yellow Urine Appearance Clear Urine pH 6.0 (5.0-9.0) Ur Specific Evans 1.025 (1.005-1.025) Urine Protein Trace (Neg-Trace) mg/dL Urine Glucose (UA) Negative (Negative) mg/dL Urine Ketones Trace (Negative) mg/dL Urine Blood Negative (Negative) Urine Nitrite Negative (Negative) Ur Leukocyte Esterase Negative (Negative) Urine RBC 3-5 H (0-2) /HPF Urine WBC 0-5 (0-5) /HPF Ur Squamous Epith Cells 3-5 (0-2) /HPF Urine Bacteria 3+ (None Seen) Hyaline Casts 0-2 (0-2) /LPF Urine Test (NEGATIVE) 01/29/23 Range/Units 03:53 WBC (4.8-10.8) X10*3/uL RBC (4.20-5.50) X10*6/uL Hgb (12.0-16.0) g/dl Hct (37.0-47.0) % MCV (80.0-98.0) fL MCH (27.0-33.0) pg MCHC (31.0-35.0) g/dl RDW (11.0-16.0) % Plt Count (160-400) X10*3/uL MPV (9.4-12.3) fL Immature Gran % (Auto) (0.0-0.4) % Neut % (Auto) (45-73) % Lymph % (Auto) (20-40) % Barton % (Auto) (2-11) % Eos % (Auto) (0-4) % Baso % (Auto) (0-2) % Lymph # (Auto) (1.2-4.9) X10*3/uL Barton # (Auto) (0.1-1.2) X10*3/uL Eos # (Auto) (0.0-0.4) X10*3/uL Baso # (Auto) (0.0-0.2) X10*3/uL Abs Immat Gran (auto) (0.00-0.03) X10*3/uL Absolute Neuts (auto) (2.0-8.3) x10*3/uL Absolute Nucleated RBC (0.0-0.012) X10*3/uL Nucleated RBC % (auto) (0.0-0.2) /100WBC Sodium (135-145) mmol/L Potassium (3.3-5.1) mmol/L Chloride (96-108) mmol/L Carbon Dioxide (22-29) mmol/L Anion Gap (12-20) BUN (9-16) mg/dL Creatinine (0.5-1.4) mg/dL Estim Creat Clear Calc Estimated GFR Random Glucose (60-115) mg/dL Calcium (8.4-10.2) mg/dL Total Bilirubin (0.0-1.0) mg/dL Direct Bilirubin (0.0-0.5) mg/dL AST (5-31) U/L ALT (0-31) U/L Alkaline Phosphatase (39-117) U/L Total Protein (6.5-8.0) g/dL Albumin (3.5-5.0) g/dL Lipase (8-78) U/L Urine Color Urine Appearance Urine pH (5.0-9.0) Ur Specific Evans (1.005-1.025) Urine Protein (Neg-Trace) mg/dL Urine Glucose (UA) (Negative) mg/dL Urine Ketones (Negative) mg/dL Urine Blood (Negative) Urine Nitrite (Negative) Ur Leukocyte Esterase (Negative) Urine RBC (0-2) /HPF Urine WBC (0-5) /HPF Ur Squamous Epith Cells (0-2) /HPF Urine Bacteria (None Seen) Hyaline Casts (0-2) /LPF Urine Test NEGATIVE (NEGATIVE) Independent Interpretation I performed an independent interpretation of an: CT Scan (Abdomen and pelvis: No acute intra abdominal pathology.) Radiology Impression Discussion of test interpretation with radiology: I have reviewed the radiologist's reading. Chronic Conditions Patient?s care impacted by: Other (Alcoholism) Medications Administered Discontinued Medications Generic Name Dose Route Start Last Admin Trade Name Freq PRN Reason Stop Dose Admin Al Hydroxide/Mg Hydroxide 30 ml 01/29/23 04:50 01/29/23 05:24 Magnesium Hydrox/Alum Hydrox 30 Ml Oral.Susp PO 01/29/23 04:51 30 ml ONCE ONE Administration Famotidine 20 mg 01/29/23 04:50 01/29/23 05:24 Famotidine/Pf 20 Mg/2 Ml Vial IVPUSH 01/29/23 04:51 20 mg ONCE ONE Administration Sodium Chloride 1,000 mls @ 999 mls/hr 01/29/23 04:50 01/29/23 06:33 Ns IV 01/29/23 05:50 Infused .Q1H1M ONE Infusion Discharge Plan Discharge Clinical Impression: Acute alcoholic gastritis Patient Disposition: Home, Self-Care Instructions: Gastritis (ED) Prescriptions: New omeprazole 40 mg capsule,delayed release(DR/EC) 40 mg PO DAILY Qty: 10 0RF No Action (DME) blood pressure monitor [Blood Pressure Kit] Kit See Rx Instructions .Route Qty: 1 0RF Rx Instructions: As directed (DME) CANE See Rx Instructions .Route .MEDSUPPLY Qty: 1 0RF Rx Instructions: As directed (DME) WRIST BRACE See Rx Instructions .Route .MEDSUPPLY Qty: 1 0RF Rx Instructions: As directed (DME) BATH CHAIR See Rx Instructions .Route .MEDSUPPLY Qty: 1 0RF Rx Instructions: As directed (DME) LIFELINE ALERT SYSTEM See Rx Instructions .Route .MEDSUPPLY Qty: 1 0RF Rx Instructions: As directed (DME) ALCOHOL PADS See Rx Instructions .Route .MEDSUPPLY Qty: 100 3RF Rx Instructions: As directed (DME) ROLLATOR See Rx Instructions .Route .MEDSUPPLY Qty: 1 0RF Rx Instructions: As directed (DME) WRIST SPLINT Right and Left hand See Rx Instructions .Route .MEDSUPPLY Qty: 1 0RF Rx Instructions: As directed (DME) SHOWER WAND See Rx Instructions .Route .MEDSUPPLY Qty: 1 0RF Rx Instructions: As directed (DME) SHOWER BAR See Rx Instructions .Route .MEDSUPPLY Qty: 1 0RF Rx Instructions: As directed (DME) Bedside commode See Rx Instructions .Route .MEDSUPPLY Qty: 1 0RF Rx Instructions: As directed (DME) Bed pads See Rx Instructions .Route .MEDSUPPLY Qty: 100 12RF Rx Instructions: As directed (DME) SANITARY PADS See Rx Instructions .Route .MEDSUPPLY Qty: 100 12RF Rx Instructions: As directed simethicone 40 mg/0.6 mL drops,suspension 0.6 ml PO BID-TID PRN (Reason: abdominal distention) Qty: 15 0RF alum-mag hydroxide-simeth [Maalox Advanced] 200-200-20 mg/5 mL suspension 5 ml PO 5XD PRN (Reason: indigestion) Qty: 355 0RF Rx Instructions: administer between meals and at bedtime tramadol 50 mg tablet 50 mg PO Q6H PRN (Reason: pain) 30 Days Qty: 60 1RF sucralfate [Carafate] 100 mg/mL suspension 5 ml PO QID Qty: 1000 0RF Rx Instructions: swish in mouth and swallow; use after food/drink omeprazole magnesium [Prilosec OTC] 20 mg tablet,delayed release (DR/EC) 20 mg PO BID Qty: 30 0RF ondansetron 4 mg tablet,disintegrating 4 mg PO Q8-12H PRN (Reason: nausea and vomiting) Qty: 10 0RF alum-mag hydroxide-simeth [Advanced Antacid-Antigas] 200-200-20 mg/5 mL suspension 10 ml PO QID PRN (Reason: indigestion) Qty: 355 0RF Rx Instructions: administer between meals and at bedtime tzfwaxnuu-xphjyx-ivdxoyts-scop [] 16.2 mg-0.1037 mg/5 mL (5 mL) elixir 5 ml PO BID PRN (Reason: indigestion) Qty: 50 0RF ondansetron 4 mg tablet,disintegrating 4 mg PO Q8H PRN (Reason: nausea and vomiting) Qty: 10 0RF acetaminophen 500 mg/15 mL liquid 1,000 mg PO Q6H PRN (Reason: pain) Qty: 1000 0RF fluticasone propionate [Flonase Allergy Relief] 50 mcg/actuation spray,suspension 1 spray intranasal DAILY Qty: 100 0RF Rx Instructions: administer into each nostril (DME) blood-glucose meter [OneTouch Verio Meter] Misc See Rx Instructions .Route Rx Instructions: As directed (DME) OneTouch Verio test strips Strip See Rx Instructions .Route Rx Instructions: As directed 3 times a day (DME) lancets [OneTouch Delica Lancets] 33 gauge misc See Rx Instructions .Route Rx Instructions: As directed 3 times a day pantoprazole [address] for susp in packet 40 mg PO BID Qty: 60 5RF Ensure Complete 0.1 gram-1.18 kcal/mL liquid 1 ea PO TID Qty: 1184 2RF Referrals: Jessica Zamorano MD [Physician] -
== END 2023-01-29 07:01 | disposition home or self-care (01) ==
PROVIDERS: Emergency Provider Emergency Medicine
DX: K29.20 Alcoholic gastritis without bleeding (principal)
CPT/HCPCS: 36415; 74176; 80048; 80076; 81001; 81025; 83690; 85025; 96361; 96374; 99284

== ENCOUNTER 2023-02-01 00:31 | Emergency (ER) | payer OTHER, SELFPAY ==
[2023-02-01 00:48] VITALS: BP 120/70; PULSE 59; RESP 16; TEMP 36.5; O2SAT 100; BMI 19.3
[2023-02-01 01:18] VITALS: BP 118/62; PULSE 63; RESP 18; TEMP 37.1; O2SAT 98
--- NOTE | 2023-02-01 01:26 | ED.GENADULT ---
HPI - General Adult General Chief complaint: General Medical Stated complaint: throat pain Time Seen by Provider: 02/01/23 01:26 Source: patient Mode of arrival: ambulatory Limitations: no limitations History of Present Illness HPI narrative: Patient with esophageal stricture severe gastro reflux disease on Protonix had the upper GI studies last week been here 8 times in last 1 month last visit was on 01/29 after she had alcohol and had severe gastritis today she comes as still having the same throat pain and gastric pain spitting slight saliva feels pain in the throat no fever no chills no urine complaints Related Data Home Medications Medication Instructions Recorded Confirmed blood sugar diagnostic ([employer] 08/15/22 01/03/23 Verio test strips) blood-glucose meter ([employer] 08/15/22 01/03/23 Verio Meter) lancets 33 gauge ([employer] Delica 08/15/22 01/03/23 Lancets) Previous Rx's Medication Instructions Recorded blood pressure monitor (Blood #1 ea 10/31/21 Pressure Kit) BATH CHAIR #1 ea 01/31/22 CANE #1 ea 01/31/22 LIFELINE ALERT SYSTEM #1 ea 01/31/22 WRIST BRACE #1 ea 01/31/22 ALCOHOL PADS #100 ea 02/21/22 ROLLATOR #1 ea 05/23/22 WRIST SPLINT Right and Left hand #1 ea 05/30/22 SHOWER BAR #1 ea 06/08/22 SHOWER WAND #1 ea 06/08/22 Bed pads #100 ea 07/17/22 Bedside commode #1 ea 07/17/22 SANITARY PADS #100 ea 07/17/22 fluticasone propionate 50 1 spray intranasal DAILY #100 mL 07/27/22 mcg/actuation nasal spray,suspension (Flonase Allergy Relief) simethicone 40 mg/0.6 mL oral 0.6 ml PO BID-TID PRN abdominal 11/08/22 drops,suspension distention #15 mL pantoprazole 40 mg granules 40 mg PO BID #60 packets 11/14/22 delayed-release for susp in packet sucralfate 100 mg/mL oral 5 ml PO QID #1,000 mL 11/21/22 suspension (Carafate) food supplemt, lactose-reduced 0.1 1 ea PO TID #1,184 mL 01/03/23 gram-1.18 kcal/ mL oral liquid (Ensure Complete) omeprazole magnesium 20 mg 20 mg PO BID #30 tabs 01/09/23 tablet,delayed release (Prilosec OTC) ondansetron 4 mg disintegrating 4 mg PO Q8-12H PRN nausea and 01/09/23 tablet vomiting #10 tabs aluminum-mag hydroxide-simethicone 5 ml PO 5XD PRN indigestion #355 mL 01/22/23 200 mg-200 mg-20 mg/5 mL oral susp (Maalox Advanced) tramadol 50 mg tablet 50 mg PO Q6H PRN pain 30 days #60 01/22/23 tabs acetaminophen 500 mg/15 mL oral 1,000 mg (30 mL) PO Q6H PRN pain 01/25/23 liquid #1,000 mL aluminum-mag hydroxide-simethicone 10 ml PO QID PRN indigestion #355 01/25/23 200 mg-200 mg-20 mg/5 mL oral susp mL (Advanced Antacid-Antigas) ondansetron 4 mg disintegrating 4 mg PO Q8H PRN nausea and 01/25/23 tablet vomiting #10 tabs qbtkarkka-epxgfehsp-rkttgvwe-scop 5 ml PO BID PRN indigestion #50 mL 01/25/23 16.2 mg-0.1037 mg/5 mL (5 mL) elixir () food supplemt, lactose-reduced 0.1 1 ea PO TID #1,184 mL 01/29/23 gram-1.18 kcal/ mL oral liquid (Ensure Complete) omeprazole 40 mg capsule,delayed 40 mg PO DAILY #10 caps 01/29/23 release polyethylene glycol 3350 17 gram 17 g PO DAILY #14 ea 01/31/23 oral powder packet (Miralax) Allergies Allergy/AdvReac Type Severity Reaction Status Date / Time tomato [TOMATO] Allergy Mild HIVES Verified 01/09/23 14:44 DIFFICULTY BREATHING hydrocodone [HYDROCODONE] Allergy Unknown RASH, Verified 01/09/23 14:44 AIRWAY CLOSES ibuprofen [From MOTRIN] Allergy Unknown STOMACH Verified 01/09/23 14:44 UPSET, vomiting trazodone [TRAZODONE] Allergy Unknown UNKNOWN, Verified 01/09/23 14:44 stomach upset black pepper [BLACK PEPPER] AdvReac Severe DIFFICULTY Verified 01/09/23 14:44 BREATHING, hives lisinopril AdvReac Severe Anaphylaxis Verified 01/09/23 14:44 Review of Systems Review of Systems: Yes all other systems are reviewed and are negative [facility] Past Medical History 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 Diverticulosis GERD (gastroesophageal reflux disease) History of bipolar disorder History of schizophrenia Hypercholesterolemia Hypertension Insomnia Numbness of left hand Renal calculi Spondylosis of lumbar spine Type 2 diabetes mellitus with hyperglycemia Vitamin D deficiency Surgical History H/O: hysterectomy History of tubal ligation Hx of bariatric surgery Family History Family History Father Medical history unknown Mother Medical history unknown Paternal Aunt Uterine cancer Diabetes Hypertension Paternal Uncle Liver cancer Heart attack Maternal Aunt Stroke Family/Other Chronic mental illness Sister Uterine cancer Schizophrenia Brother Substance abuse Other Mental health disorder Social History Social History Household Members: None Housing: Apartment Do you presently have visiting nurse or other home services: Yes Alcohol intake: current Alcohol intake frequency: holidays/special occasions only Patient Tobacco Use Status: Never used Tobacco e-Cigarette/Vaping Use: Never Used Second Hand Smoke Exposure: No Advance Directives: No Advance Directives Information Provided: No service: No Current occupational status: disabled Current occupational exposures/hazards: No Cognitive needs: No Hearing needs: No Vision needs: No Physical Exam ED Vital Signs: Vital Signs - 24 hr 02/01/23 00:48 02/01/23 01:18 02/01/23 03:16 Temperature 97.7 F 98.8 F Pulse Rate 59 63 63 Respiratory Rate 16 18 16 Blood Pressure 120/70 118/62 107/67 Pulse Oximetry 100 98 100 Oxygen Delivery Method Room Air Room Air Room Air BMI result Body Mass Index 19.3 Appearance: Alert. Oriented X3. No acute distress. Eyes: No pallor/ icterus ENT: Pharynx slight erythema no exudate Oral Mucosa moist Neck: Normal inspection. Neck supple. CVS: Normal heart rate and rhythm. Pulses normal. Respiratory: No respiratory distress. Equal air entry bilateral, no wheezing/rales/rhonchi Abdomen: Soft , mild epigastric tenderness Bowel sounds are present, no mass palpable, no CVA tenderness Skin: Skin warm and dry. Normal skin color. Normal skin turgor. Extremities: No lower extremity edema. No calf tenderness Neuro: Oriented X 3. Medications Administered Discontinued Medications Generic Name Dose Route Start Last Admin Trade Name Fabiola PRN Reason Stop Dose Admin Al Hydroxide/Mg Hydroxide 30 ml 02/01/23 01:44 02/01/23 02:28 Magnesium Hydrox/Alum Hydrox 30 Ml Oral.Susp PO 02/01/23 01:45 30 ml ONCE ONE Administration Lidocaine HCl 1 appl 02/01/23 02:22 02/01/23 02:33 Lidocaine Hcl 4 % Aerwxj-P-Ipd 4 Ml TOPICAL 02/01/23 02:23 1 appl ONCE ONE Administration Medical Decision Making Medical Decision Making MDM Narrative: Patient with chronic GI issues been to hospital multiple times multiple diagnostic studies done plan to see truck body repairer for esophageal stricture still drinks alcohol off and on came here for similar symptoms previous labs 2 days ago was normal. Will give her lidocaine viscous and Maalox, rapid strep test was negative Lab Data MDM Lab Attestation statement: I reviewed the patient's lab results. Labs: Lab Results 02/01/23 Range/Units 00:47 S. pyogenes GrpA BRIDGER Negative (Negative) Discharge Plan Discharge Clinical Impression: Chronic gastritis Patient Disposition: Home, Self-Care Instructions: Gastritis (ED) Additional Instructions: Continue your medications and follow with truck body repairer Clear liquids advance as tolerated Prescriptions: No Action (DME) blood pressure monitor [Blood Pressure Kit] Kit See Rx Instructions .Route Qty: 1 0RF Rx Instructions: As directed (DME) CANE See Rx Instructions .Route .MEDSUPPLY Qty: 1 0RF Rx Instructions: As directed (DME) WRIST BRACE See Rx Instructions .Route .MEDSUPPLY Qty: 1 0RF Rx Instructions: As directed (DME) BATH CHAIR See Rx Instructions .Route .MEDSUPPLY Qty: 1 0RF Rx Instructions: As directed (DME) LIFELINE ALERT SYSTEM See Rx Instructions .Route .MEDSUPPLY Qty: 1 0RF Rx Instructions: As directed (DME) ALCOHOL PADS See Rx Instructions .Route .MEDSUPPLY Qty: 100 3RF Rx Instructions: As directed (DME) ROLLATOR See Rx Instructions .Route .MEDSUPPLY Qty: 1 0RF Rx Instructions: As directed (DME) WRIST SPLINT Right and Left hand See Rx Instructions .Route .MEDSUPPLY Qty: 1 0RF Rx Instructions: As directed (DME) SHOWER WAND See Rx Instructions .Route .MEDSUPPLY Qty: 1 0RF Rx Instructions: As directed (DME) SHOWER BAR See Rx Instructions .Route .MEDSUPPLY Qty: 1 0RF Rx Instructions: As directed (DME) Bedside commode See Rx Instructions .Route .MEDSUPPLY Qty: 1 0RF Rx Instructions: As directed (DME) Bed pads See Rx Instructions .Route .MEDSUPPLY Qty: 100 12RF Rx Instructions: As directed ([facility]) SANITARY PADS See Rx Instructions .Route .MEDSUPPLY Qty: 100 12RF Rx Instructions: As directed simethicone 40 mg/0.6 mL drops,suspension 0.6 ml PO BID-TID PRN (Reason: abdominal distention) Qty: 15 0RF alum-mag hydroxide-simeth [Maalox Advanced] 200-200-20 mg/5 mL suspension 5 ml PO 5XD PRN (Reason: indigestion) Qty: 355 0RF Rx Instructions: administer between meals and at bedtime tramadol 50 mg tablet 50 mg PO Q6H PRN (Reason: pain) 30 Days Qty: 60 1RF Ensure Complete 0.1 gram-1.18 kcal/mL liquid 1 ea PO TID Qty: 1184 12RF polyethylene glycol 3350 [Miralax] 17 gram powder in packet 17 g PO DAILY Qty: 14 3RF Rx Instructions: Use daily until you have a normal bowel movement, then stop. sucralfate [Carafate] 100 mg/mL suspension 5 ml PO QID Qty: 1000 0RF Rx Instructions: swish in mouth and swallow; use after food/drink omeprazole magnesium [Prilosec OTC] 20 mg tablet,delayed release (DR/EC) 20 mg PO BID Qty: 30 0RF ondansetron 4 mg tablet,disintegrating 4 mg PO Q8-12H PRN (Reason: nausea and vomiting) Qty: 10 0RF alum-mag hydroxide-simeth [Advanced Antacid-Antigas] 200-200-20 mg/5 mL suspension 10 ml PO QID PRN (Reason: indigestion) Qty: 355 0RF Rx Instructions: administer between meals and at bedtime beymfpltg-baljzz-mumzenrf-scop [] 16.2 mg-0.1037 mg/5 mL (5 mL) elixir 5 ml PO BID PRN (Reason: indigestion) Qty: 50 0RF ondansetron 4 mg tablet,disintegrating 4 mg PO Q8H PRN (Reason: nausea and vomiting) Qty: 10 0RF acetaminophen 500 mg/15 mL liquid 1,000 mg PO Q6H PRN (Reason: pain) Qty: 1000 0RF omeprazole 40 mg capsule,delayed release(DR/EC) 40 mg PO DAILY Qty: 10 0RF fluticasone propionate [Flonase Allergy Relief] 50 mcg/actuation spray,suspension 1 spray intranasal DAILY Qty: 100 0RF Rx Instructions: administer into each nostril (DME) blood-glucose meter [OneTouch Verio Meter] Misc See Rx Instructions .Route Rx Instructions: As directed (DME) OneTouch Verio test strips Strip See Rx Instructions .Route Rx Instructions: As directed 3 times a day (DME) lancets [OneTouch [employer]ica Lancets] 33 gauge misc See Rx Instructions .Route Rx Instructions: As directed 3 times a day pantoprazole [address] for susp in packet 40 mg PO BID Qty: 60 5RF Ensure Complete 0.1 gram-1.18 kcal/mL liquid 1 ea PO TID Qty: 1184 2RF Interventions: ED Discharge Assessment Last Done: 02/01/23 03:18 Discharge Date/Time: 02/01/23 03:19
--- NOTE | 2023-02-01 02:33 | PC.NURSE ---
Lidocaine administered per provider
[2023-02-01 03:16] VITALS: BP 107/67; PULSE 63; RESP 16; O2SAT 100
== END 2023-02-01 03:19 | disposition home or self-care (01) ==
PROVIDERS: Emergency Provider Internal Medicine
DX: K29.50 Unspecified chronic gastritis without bleeding (principal); J02.9 Acute pharyngitis, unspecified; E11.9 Type 2 diabetes mellitus without complications; I10 Essential (primary) hypertension; E78.00 Pure hypercholesterolemia, unspecified; Z79.899 Other long term (current) drug therapy
CPT/HCPCS: 87651; 99212; 99283; 99284

== ENCOUNTER 2023-02-02 05:18 | Emergency (ER) | payer OTHER, SELFPAY ==
[2023-02-02 05:21] VITALS: BP 122/83; PULSE 88; RESP 19; TEMP 36.2; O2SAT 99; BMI 18.9
[2023-02-02 05:32] VITALS: BP 123/81; PULSE 81; RESP 17; TEMP 36.9; O2SAT 100
--- NOTE | 2023-02-02 06:09 | ED.GENADULT ---
HPI - General Adult General Chief complaint: Abdominal Pain Stated complaint: Abd pain N/V/D/ Sore throat Time Seen by Provider: 02/02/23 05:49 Source: patient Mode of arrival: ambulatory Limitations: no limitations History of Present Illness HPI narrative: Patient has multiple ED visits was seen here yesterday comes back again for burning sensation the throat. Patient does have a history of esophageal stricture severe gastro reflux disease on Protonix 40 mg twice daily had upper GI studies last week been here 8 times last 1 month supposed to see ladies' locker room attendant for endoscopy on 02/20 comes here as she feeling throat pain again with burning sensation Related Data Home Medications Medication Instructions Recorded Confirmed blood sugar diagnostic ([employer] 08/15/22 02/01/23 Verio test strips) blood-glucose meter ([employer] 08/15/22 02/01/23 Verio Meter) lancets 33 gauge ([employer] Delica 08/15/22 02/01/23 Lancets) Previous Rx's Medication Instructions Recorded blood pressure monitor (Blood #1 ea 10/31/21 Pressure Kit) BATH CHAIR #1 ea 01/31/22 CANE #1 ea 01/31/22 LIFELINE ALERT SYSTEM #1 ea 01/31/22 WRIST BRACE #1 ea 01/31/22 ALCOHOL PADS #100 ea 02/21/22 ROLLATOR #1 ea 05/23/22 WRIST SPLINT Right and Left hand #1 ea 05/30/22 SHOWER BAR #1 ea 06/08/22 SHOWER WAND #1 ea 06/08/22 Bed pads #100 ea 07/17/22 Bedside commode #1 ea 07/17/22 SANITARY PADS #100 ea 07/17/22 fluticasone propionate 50 1 spray intranasal DAILY #100 mL 07/27/22 mcg/actuation nasal spray,suspension (Flonase Allergy Relief) simethicone 40 mg/0.6 mL oral 0.6 ml PO BID-TID PRN abdominal 11/08/22 drops,suspension distention #15 mL pantoprazole 40 mg granules 40 mg PO BID #60 packets 11/14/22 delayed-release for susp in packet sucralfate 100 mg/mL oral 5 ml PO QID #1,000 mL 11/21/22 suspension (Carafate) food supplemt, lactose-reduced 0.1 1 ea PO TID #1,184 mL 01/03/23 gram-1.18 kcal/ mL oral liquid (Ensure Complete) omeprazole magnesium 20 mg 20 mg PO BID #30 tabs 01/09/23 tablet,delayed release (Prilosec OTC) ondansetron 4 mg disintegrating 4 mg PO Q8-12H PRN nausea and 01/09/23 tablet vomiting #10 tabs aluminum-mag hydroxide-simethicone 5 ml PO 5XD PRN indigestion #355 mL 01/22/23 200 mg-200 mg-20 mg/5 mL oral susp (Maalox Advanced) tramadol 50 mg tablet 50 mg PO Q6H PRN pain 30 days #60 01/22/23 tabs acetaminophen 500 mg/15 mL oral 1,000 mg (30 mL) PO Q6H PRN pain 01/25/23 liquid #1,000 mL aluminum-mag hydroxide-simethicone 10 ml PO QID PRN indigestion #355 01/25/23 200 mg-200 mg-20 mg/5 mL oral susp mL (Advanced Antacid-Antigas) ondansetron 4 mg disintegrating 4 mg PO Q8H PRN nausea and 01/25/23 tablet vomiting #10 tabs uaqapvioa-naocwjfqz-dhzzbzzq-scop 5 ml PO BID PRN indigestion #50 mL 01/25/23 16.2 mg-0.1037 mg/5 mL (5 mL) elixir () food supplemt, lactose-reduced 0.1 1 ea PO TID #1,184 mL 01/29/23 gram-1.18 kcal/ mL oral liquid (Ensure Complete) omeprazole 40 mg capsule,delayed 40 mg PO DAILY #10 caps 01/29/23 release polyethylene glycol 3350 17 gram 17 g PO DAILY #14 ea 01/31/23 oral powder packet (Miralax) Allergies Allergy/AdvReac Type Severity Reaction Status Date / Time tomato [TOMATO] Allergy Mild HIVES Verified 02/01/23 14:10 DIFFICULTY BREATHING hydrocodone [HYDROCODONE] Allergy Unknown RASH, Verified 02/01/23 14:10 AIRWAY CLOSES ibuprofen [From MOTRIN] Allergy Unknown STOMACH Verified 02/01/23 14:10 UPSET, vomiting trazodone [TRAZODONE] Allergy Unknown UNKNOWN, Verified 02/01/23 14:10 stomach upset black pepper [BLACK PEPPER] AdvReac Severe DIFFICULTY Verified 02/01/23 14:10 BREATHING, hives lisinopril AdvReac Severe Anaphylaxis Verified 02/01/23 14:10 Review of Systems Review of Systems: Yes all other systems are reviewed and are negative [facility] Past Medical History 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 Diverticulosis GERD (gastroesophageal reflux disease) History of bipolar disorder History of schizophrenia Hypercholesterolemia Hypertension Insomnia Numbness of left hand Renal calculi Spondylosis of lumbar spine Type 2 diabetes mellitus with hyperglycemia Vitamin D deficiency Surgical History H/O: hysterectomy History of tubal ligation Hx of bariatric surgery Family History Family History Father Medical history unknown Mother Medical history unknown Paternal Aunt Uterine cancer Diabetes Hypertension Paternal Uncle Liver cancer Heart attack Maternal Aunt Stroke Family/Other Chronic mental illness Sister Uterine cancer Schizophrenia Brother Substance abuse Other Mental health disorder Social History Social History Household Members: None Housing: Apartment Do you presently have visiting nurse or other home services: Yes Alcohol intake: current Alcohol intake frequency: holidays/special occasions only Patient Tobacco Use Status: Never used Tobacco e-Cigarette/Vaping Use: Never Used Second Hand Smoke Exposure: No Advance Directives: No Advance Directives Information Provided: Yes service: No Current occupational status: disabled Current occupational exposures/hazards: No Cognitive needs: No Hearing needs: No Vision needs: No Physical Exam ED Vital Signs: Vital Signs - 24 hr 02/02/23 05:21 02/02/23 05:32 Temperature 97.1 F 98.5 F Pulse Rate 88 81 Respiratory Rate 19 17 Blood Pressure 122/83 123/81 Pulse Oximetry 99 100 Oxygen Delivery Method Room Air Room Air BMI result Body Mass Index 18.9 Appearance: Alert. Oriented X3. No acute distress. And she Eyes: PERRLA, No Nystagmus ENT: Pharynx normal. Oral Mucosa moist Neck: Normal inspection. Neck supple. CVS: Normal heart rate and rhythm. Pulses normal. Respiratory: No respiratory distress. Equal air entry bilateral, no wheezing/rales/rhonchi Abdomen: Soft and nontender. Bowel sounds are present, no mass palpable, no CVA tenderness Skin: Skin warm and dry. Normal skin color. Normal skin turgor. Extremities: No lower extremity edema. No calf tenderness Neuro: Oriented X 3. No motor deficit. Medications Administered Discontinued Medications Generic Name Dose Route Start Last Admin Trade Name Freq PRN Reason Stop Dose Admin Al Hydroxide/Mg Hydroxide 30 ml 02/02/23 05:50 02/02/23 06:05 Magnesium Hydrox/Alum Hydrox 30 Ml Oral.Susp PO 02/02/23 05:51 30 ml ONCE ONE Administration Lidocaine HCl 1 appl 02/02/23 05:50 02/02/23 06:05 Lidocaine Hcl 4 % Oyjfyw-I-Usg 4 Ml TOPICAL 02/02/23 05:51 1 appl ONCE ONE Administration Medical Decision Making Medical Decision Making MDM Narrative: Patient advised to follow with her GI for further management Discharge Plan Discharge Clinical Impression: Gastritis Patient Disposition: Home, Self-Care Instructions: Gastritis (ED) Additional Instructions: Continue medications and follow with ladies' locker room attendant for further management Prescriptions: No Action (DME) blood pressure monitor [Blood Pressure Kit] Kit See Rx Instructions .Route Qty: 1 0RF Rx Instructions: As directed (DME) CANE See Rx Instructions .Route .MEDSUPPLY Qty: 1 0RF Rx Instructions: As directed (DME) WRIST BRACE See Rx Instructions .Route .MEDSUPPLY Qty: 1 0RF Rx Instructions: As directed (DME) BATH CHAIR See Rx Instructions .Route .MEDSUPPLY Qty: 1 0RF Rx Instructions: As directed (DME) LIFELINE ALERT SYSTEM See Rx Instructions .Route .MEDSUPPLY Qty: 1 0RF Rx Instructions: As directed (DME) ALCOHOL PADS See Rx Instructions .Route .MEDSUPPLY Qty: 100 3RF Rx Instructions: As directed (DME) ROLLATOR See Rx Instructions .Route .MEDSUPPLY Qty: 1 0RF Rx Instructions: As directed (DME) WRIST SPLINT Right and Left hand See Rx Instructions .Route .MEDSUPPLY Qty: 1 0RF Rx Instructions: As directed (DME) SHOWER WAND See Rx Instructions .Route .MEDSUPPLY Qty: 1 0RF Rx Instructions: As directed (DME) SHOWER BAR See Rx Instructions .Route .MEDSUPPLY Qty: 1 0RF Rx Instructions: As directed (DME) Bedside commode See Rx Instructions .Route .MEDSUPPLY Qty: 1 0RF Rx Instructions: As directed (DME) Bed pads See Rx Instructions .Route .MEDSUPPLY Qty: 100 12RF Rx Instructions: As directed (DME) SANITARY PADS See Rx Instructions .Route .MEDSUPPLY Qty: 100 12RF Rx Instructions: As directed simethicone 40 mg/0.6 mL drops,suspension 0.6 ml PO BID-TID PRN (Reason: abdominal distention) Qty: 15 0RF alum-mag hydroxide-simeth [Maalox Advanced] 200-200-20 mg/5 mL suspension 5 ml PO 5XD PRN (Reason: indigestion) Qty: 355 0RF Rx Instructions: administer between meals and at bedtime tramadol 50 mg tablet 50 mg PO Q6H PRN (Reason: pain) 30 Days Qty: 60 1RF Ensure Complete 0.1 gram-1.18 kcal/mL liquid 1 ea PO TID Qty: 1184 12RF polyethylene glycol 3350 [Miralax] 17 gram powder in packet 17 g PO DAILY Qty: 14 3RF Rx Instructions: Use daily until you have a normal bowel movement, then stop. sucralfate [Carafate] 100 mg/mL suspension 5 ml PO QID Qty: 1000 0RF Rx Instructions: swish in mouth and swallow; use after food/drink omeprazole magnesium [Prilosec OTC] 20 mg tablet,delayed release (DR/EC) 20 mg PO BID Qty: 30 0RF ondansetron 4 mg tablet,disintegrating 4 mg PO Q8-12H PRN (Reason: nausea and vomiting) Qty: 10 0RF alum-mag hydroxide-simeth [Advanced Antacid-Antigas] 200-200-20 mg/5 mL suspension 10 ml PO QID PRN (Reason: indigestion) Qty: 355 0RF Rx Instructions: administer between meals and at bedtime eftbrqorz-ozsluf-fsofbvbk-scop [] 16.2 mg-0.1037 mg/5 mL (5 mL) elixir 5 ml PO BID PRN (Reason: indigestion) Qty: 50 0RF ondansetron 4 mg tablet,disintegrating 4 mg PO Q8H PRN (Reason: nausea and vomiting) Qty: 10 0RF acetaminophen 500 mg/15 mL liquid 1,000 mg PO Q6H PRN (Reason: pain) Qty: 1000 0RF omeprazole 40 mg capsule,delayed release(DR/EC) 40 mg PO DAILY Qty: 10 0RF fluticasone propionate [Flonase Allergy Relief] 50 mcg/actuation spray,suspension 1 spray intranasal DAILY Qty: 100 0RF Rx Instructions: administer into each nostril (DME) blood-glucose meter [OneTouch Verio Meter] Misc See Rx Instructions .Route Rx Instructions: As directed (DME) OneTouch Verio test strips Strip See Rx Instructions .Route Rx Instructions: As directed 3 times a day (DME) lancets [OneTouch Delica Lancets] 33 gauge misc See Rx Instructions .Route Rx Instructions: As directed 3 times a day pantoprazole [address] for susp in packet 40 mg PO BID Qty: 60 5RF Ensure Complete 0.1 gram-1.18 kcal/mL liquid 1 ea PO TID Qty: 1184 2RF Referrals: Jessica Zamorano MD [Physician] - 1 week
== END 2023-02-02 06:48 | disposition home or self-care (01) ==
PROVIDERS: Emergency Provider Internal Medicine; PCP Internal Medicine
DX: K29.70 Gastritis, unspecified, without bleeding (principal); I10 Essential (primary) hypertension; E78.00 Pure hypercholesterolemia, unspecified; Z79.899 Other long term (current) drug therapy
CPT/HCPCS: 99283; 99284

== ENCOUNTER 2023-02-04 10:57 | Emergency (ER) | payer OTHER, SELFPAY ==
[2023-02-04 11:25] VITALS: BP 108/53; PULSE 107; RESP 18; TEMP 36.7; O2SAT 98; BMI 18.5
--- NOTE | 2023-02-04 11:26 | ED.GENADULT ---
HPI - General Adult General Chief complaint: Upper Respiratory Symptoms Stated complaint: symptoms of pneumonia? Time Seen by Provider: 02/04/23 13:19 Source: patient and manager drug Mode of arrival: ambulatory Limitations: no limitations History of Present Illness HPI narrative: A 42-year-old female came in for evaluation of upper respiratory symptoms. Patient been having right ear pain, stuffy nose, coughing with green sputum, patient also complaining of epigastric pain feeling burning sensation in the epigastric area related to her coughing, no sick contacts, no recent travel, no exposure to sick contacts. No fever, no chills. Related Data Home Medications Medication Instructions Recorded Confirmed blood sugar diagnostic (OneTouch 08/15/22 02/01/23 Verio test strips) blood-glucose meter (OneTouch 08/15/22 02/01/23 Verio Meter) lancets 33 gauge (OneTouch Delica 08/15/22 02/01/23 Lancets) Previous Rx's Medication Instructions Recorded blood pressure monitor (Blood #1 ea 10/31/21 Pressure Kit) BATH CHAIR #1 ea 01/31/22 CANE #1 ea 01/31/22 LIFELINE ALERT SYSTEM #1 ea 01/31/22 WRIST BRACE #1 ea 01/31/22 ALCOHOL PADS #100 ea 02/21/22 ROLLATOR #1 05/23/22 WRIST SPLINT Right and Left hand #1 ea 05/30/22 SHOWER BAR #1 ea 06/08/22 SHOWER WAND #1 ea 06/08/22 Bed pads #100 ea 07/17/22 Bedside commode #1 ea 07/17/22 SANITARY PADS #100 ea 07/17/22 fluticasone propionate 50 1 spray intranasal DAILY #100 mL 07/27/22 mcg/actuation nasal spray,suspension (Flonase Allergy Relief) simethicone 40 mg/0.6 mL oral 0.6 ml PO BID-TID PRN abdominal 11/08/22 drops,suspension distention #15 mL pantoprazole 40 mg granules 40 mg PO BID #60 packets 11/14/22 delayed-release for susp in packet sucralfate 100 mg/mL oral 5 ml PO QID #1,000 mL 11/21/22 suspension (Carafate) food supplemt, lactose-reduced 0.1 1 ea PO TID #1,184 mL 01/03/23 gram-1.18 kcal/ mL oral liquid (Ensure Complete) omeprazole magnesium 20 mg 20 mg PO BID #30 tabs 01/09/23 tablet,delayed release (Prilosec OTC) ondansetron 4 mg disintegrating 4 mg PO Q8-12H PRN nausea and 01/09/23 tablet vomiting #10 tabs aluminum-mag hydroxide-simethicone 5 ml PO 5XD PRN indigestion #355 mL 01/22/23 200 mg-200 mg-20 mg/5 mL oral susp (Maalox Advanced) tramadol 50 mg tablet 50 mg PO Q6H PRN pain 30 days #60 01/22/23 tabs acetaminophen 500 mg/15 mL oral 1,000 mg (30 mL) PO Q6H PRN pain 01/25/23 liquid #1,000 mL aluminum-mag hydroxide-simethicone 10 ml PO QID PRN indigestion #355 01/25/23 200 mg-200 mg-20 mg/5 mL oral susp mL (Advanced Antacid-Antigas) ondansetron 4 mg disintegrating 4 mg PO Q8H PRN nausea and 01/25/23 tablet vomiting #10 tabs arvzcxfuc-bdpdnpkky-fcpiuvqk-scop 5 ml PO BID PRN indigestion #50 mL 01/25/23 16.2 mg-0.1037 mg/5 mL (5 mL) elixir () food supplemt, lactose-reduced 0.1 1 ea PO TID #1,184 mL 01/29/23 gram-1.18 kcal/ mL oral liquid (Ensure Complete) omeprazole 40 mg capsule,delayed 40 mg PO DAILY #10 caps 01/29/23 release polyethylene glycol 3350 17 gram 17 g PO DAILY #14 ea 01/31/23 oral powder packet (Miralax) albuterol sulfate 90 mcg/actuation 1 inh inhalation QID PRN shortness 02/04/23 aerosol inhaler of breath or wheezing #8.5 grams azithromycin 250 mg tablet See Rx Instructions PO .COMPLEX #6 02/04/23 (Zithromax Z-Jorge) tabs prednisone 20 mg tablet 20 mg PO BID #10 tabs 02/04/23 Allergies Allergy/AdvReac Type Severity Reaction Status Date / Time tomato [TOMATO] Allergy Mild HIVES Verified 02/01/23 14:10 DIFFICULTY BREATHING hydrocodone [HYDROCODONE] Allergy Unknown RASH, Verified 02/01/23 14:10 AIRWAY CLOSES ibuprofen [From MOTRIN] Allergy Unknown STOMACH Verified 02/01/23 14:10 UPSET, vomiting trazodone [TRAZODONE] Allergy Unknown UNKNOWN, Verified 02/01/23 14:10 stomach upset black pepper [BLACK PEPPER] AdvReac Severe DIFFICULTY Verified 02/01/23 14:10 BREATHING, hives lisinopril AdvReac Severe Anaphylaxis Verified 02/01/23 14:10 Review of Systems Review of Systems: All other systems are reviewed and are negative Constitutional: Reports as per HPI and Reports no additional constitutional complaints Eyes: Reports as per HPI and Reports no additional eye complaints Reports system reviewed and no additional complaints, except as documented Cardiovascular: Reports as per HPI and Reports no additional cardiovascular complaints Respiratory: Reports as per HPI and Reports no additional respiratory complaints Gastrointestinal: Reports as per HPI and Reports no additional gastrointestinal complaints Genitourinary: Reports no additional female genitourinary complaints Musculoskeletal: Reports no additional musculoskeletal complaints Skin/Breast: Reports system reviewed and no additional complaints, except as docu Psychiatric: Reports no additional psychiatric complaints Endocrine: Reports no additional endocrine complaints Hematologic/Lymphatic: Reports no additional hematologic/lymphatic complaints Allergic/Immunologic: Reports no additional allergic/immunologic complaints Reports system reviewed and no additional complaints, except as documented and Reports Abnormal speech present [facility] Past Medical History 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 Diverticulosis GERD (gastroesophageal reflux disease) History of bipolar disorder History of schizophrenia Hypercholesterolemia Hypertension Insomnia Numbness of left hand Renal calculi Spondylosis of lumbar spine Type 2 diabetes mellitus with hyperglycemia Vitamin D deficiency Surgical History H/O: hysterectomy History of tubal ligation Hx of bariatric surgery Family History Family History Father Medical history unknown Mother Medical history unknown Paternal Aunt Uterine cancer Diabetes Hypertension Paternal Uncle Liver cancer Heart attack Maternal Aunt Stroke Family/Other Chronic mental illness Sister Uterine cancer Schizophrenia Brother Substance abuse Other Mental health disorder Social History Social History Household Members: None Housing: Apartment Do you presently have visiting nurse or other home services: Yes Alcohol intake: never Patient Tobacco Use Status: Never used Tobacco Smoked in Last 30 Days: No e-Cigarette/Vaping Use: Never Used Second Hand Smoke Exposure: No Use of substances other than those prescribed or required for medical reasons: No Advance Directives: Yes Advance Directives Information Provided: Yes Advance Directives on File: No service: No Current occupational status: disabled Current occupational exposures/hazards: No Cognitive needs: No Hearing needs: No Vision needs: No Physical Exam ED Vital Signs: Vital Signs - 24 hr 02/04/23 11:25 02/04/23 13:11 02/04/23 16:50 Temperature 98.1 F 97.0 F Pulse Rate 107 H 68 72 Respiratory Rate 18 12 14 Blood Pressure 108/53 L 118/98 H 97/58 L Pulse Oximetry 98 96 Oxygen Delivery Method Room Air Room Air BMI result Body Mass Index 18.5 Vital signs have been reviewed as appeared to be correct. Blood pressure normal. Heart rate normal. Respiration rate normal. Temperature normal. Oxygen saturation normal. Appearance: Alert. Oriented X3. No acute distress. Head: Normal external exam. Normocephalic. Atraumatic. No Hua signs noted. No raccoon eyes noted Eyes: PERRLA. EOMI. Conjunctiva and sclera normal. Eyelids normal. ENT: TM's Normal. Pharynx normal. Uvula midline. Moist mucous membranes. No trismus noted. No drooling noted. No muffled voice noted. Neck: Normal inspection. Neck supple. FROM. No adenopathy. Thyroid Normal. No meningeal signs. No neck mass noted. CVS: Normal heart rate and rhythm. Heart sound normal. No murmurs noted. Pulses normal throughout. Respiratory: No respiratory distress. Painless inspiration. Breath sounds normal. No wheezes/rales/rhonchi noted. Chest nontender. No accessory muscle usage noted or decreased air movement noted. Abdomen: Soft and nontender. Bowel sounds normal in all 4 quadrants. No distention noted. No organomegaly noted. No visible injury noted. Back: No CVA tenderness. Full range of motion noted. Skin: Skin warm and dry. Normal skin color. Normal skin turgor. No rashes/lesions/lacerations noted. Extremities: No lower extremity edema. Extremities exhibit normal range of motion. Extremities nontender. Neuro: Oriented X 3. Cranial nerve exam: II-XII are grossly intact No motor deficit. No sensory deficit. Reflexes normal. Course Course Course Narrative: RME: 42 yold female of GERD, Gastric Sleeve, presents to the ED for chest pain, abdominal pain, SOB, acid burning, sensation for the past couple of days. labs, EKG, and chest xray ordere. Reevaluation(s) Reevaluation #1: Upper respiratory symptoms no discrete pneumonia on the x-ray will start on Z-Jorge/prednisone/albuterol. Time: 15:26 Medications Administered Discontinued Medications Generic Name Dose Route Start Last Admin Trade Name Freq PRN Reason Stop Dose Admin Acetaminophen 650 mg 02/04/23 15:39 02/04/23 15:50 Acetaminophen 325 Mg Tablet PO 02/04/23 15:40 Not Given ONCE ONE Acetaminophen 650 mg 02/04/23 16:34 02/04/23 16:41 Acetaminophen Oral Liquid 650 Mg/20.3 Ml Solution PO 02/04/23 16:35 650 mg ONCE ONE Administration Morphine Sulfate 1 mg 02/04/23 15:51 02/04/23 16:33 Morphine Sulfate 2 Mg/Ml Cartridge IVPUSH 02/04/23 15:52 Not Given ONCE ONE Protocol Medical Decision Making Differential Diagnosis Differential Diagnoses: The differential diagnosis associated with the presentation includes (Acute bronchitis, pneumonia, pneumothorax, pleural effusion, electrolyte abnormality, severe anemia.) Admission/Observation Consideration of admission/observation: Escalation of care including admission/observation considered Lab Data MDM Lab Attestation statement: I reviewed the patient's lab results. 02/04/23 13:09 Labs: Lab Results 02/04/23 02/04/23 02/04/23 Range/Units 12:09 12:09 13:09 WBC (4.8-10.8) X10*3/uL RBC (4.20-5.50) X10*6/uL Hgb (12.0-16.0) g/dl Hct (37.0-47.0) % MCV (80.0-98.0) fL MCH (27.0-33.0) pg MCHC (31.0-35.0) g/dl RDW (11.0-16.0) % Plt Count (160-400) X10*3/uL MPV (9.4-12.3) fL Immature Gran % (Auto) (0.0-0.4) % Neut % (Auto) (45-73) % Lymph % (Auto) (20-40) % [place] % (Auto) (2-11) % Eos % (Auto) (0-4) % Baso % (Auto) (0-2) % Lymph # (Auto) (1.2-4.9) X10*3/uL [place] # (Auto) (0.1-1.2) X10*3/uL Eos # (Auto) (0.0-0.4) X10*3/uL Baso # (Auto) (0.0-0.2) X10*3/uL Abs Immat Gran (auto) (0.00-0.03) X10*3/uL Absolute Neuts (auto) (2.0-8.3) x10*3/uL Absolute Nucleated RBC (0.0-0.012) X10*3/uL Nucleated RBC % (auto) (0.0-0.2) /100WBC Sodium 138 (135-145) mmol/L Potassium 5.4 H D (3.3-5.1) mmol/L Chloride 105 (96-108) mmol/L Carbon Dioxide 24 (22-29) mmol/L Anion Gap 14 (12-20) BUN 14 (9-16) mg/dL Creatinine 0.65 (0.5-1.4) mg/dL Estim Creat Clear Calc 79.1 Estimated GFR > 60 Random Glucose 85 (60-115) mg/dL Calcium 9.3 (8.4-10.2) mg/dL Magnesium 2.4 (1.6-2.6) mg/dL Total Bilirubin 0.2 (0.0-1.0) mg/dL AST 20 (5-31) U/L ALT 9 (0-31) U/L Alkaline Phosphatase 63 (39-117) U/L Total Creatine Kinase 39 (26-140) U/L Troponin I High Sens (<3.5-17.0) ng/L B-Natriuretic Peptide (<100) pg/mL Total Protein 7.5 (6.5-8.0) g/dL Albumin 4.2 (3.5-5.0) g/dL COVID-19 (ANGELA) Negative (Negative) COVID-19 Clin Com See Note Influenza Type A (BRIDGER) Negative (Negative) Influenza Type B (BRIDGER) Negative (Negative) Influenza A & B Note See Note 02/04/23 02/04/23 02/04/23 Range/Units 13:09 13:09 13:25 WBC 7.0 (4.8-10.8) X10*3/uL RBC 4.07 L (4.20-5.50) X10*6/uL Hgb 11.7 L (12.0-16.0) g/dl Hct 36.6 L (37.0-47.0) % MCV 89.9 (80.0-98.0) fL MCH 28.7 (27.0-33.0) pg MCHC 32.0 (31.0-35.0) g/dl RDW 11.9 (11.0-16.0) % Plt Count 361 (160-400) X10*3/uL MPV 9.7 (9.4-12.3) fL Immature Gran % (Auto) 0.3 (0.0-0.4) % Neut % (Auto) 70.9 (45-73) % Lymph % (Auto) 17.0 L (20-40) % [place] % (Auto) 10.8 (2-11) % Eos % (Auto) 0.6 (0-4) % Baso % (Auto) 0.4 (0-2) % Lymph # (Auto) 1.2 (1.2-4.9) X10*3/uL [place] # (Auto) 0.8 (0.1-1.2) X10*3/uL Eos # (Auto) 0.0 (0.0-0.4) X10*3/uL Baso # (Auto) 0.0 (0.0-0.2) X10*3/uL Abs Immat Gran (auto) 0.02 (0.00-0.03) X10*3/uL Absolute Neuts (auto) 4.9 (2.0-8.3) x10*3/uL Absolute Nucleated RBC 0.000 (0.0-0.012) X10*3/uL Nucleated RBC % (auto) 0.0 (0.0-0.2) /100WBC Sodium (135-145) mmol/L Potassium (3.3-5.1) mmol/L Chloride (96-108) mmol/L Carbon Dioxide (22-29) mmol/L Anion Gap (12-20) BUN (9-16) mg/dL Creatinine (0.5-1.4) mg/dL Estim Creat Clear Calc Estimated GFR Random Glucose (60-115) mg/dL Calcium (8.4-10.2) mg/dL Magnesium (1.6-2.6) mg/dL Total Bilirubin (0.0-1.0) mg/dL AST (5-31) U/L ALT (0-31) U/L Alkaline Phosphatase (39-117) U/L Total Creatine Kinase (26-140) U/L Troponin I High Sens < 2.7 (<3.5-17.0) ng/L B-Natriuretic Peptide 25 (<100) pg/mL Total Protein (6.5-8.0) g/dL Albumin (3.5-5.0) g/dL COVID-19 (ANGELA) (Negative) COVID-19 Clin Com Influenza Type A (BRIDGER) (Negative) Influenza Type B (BRIDGER) (Negative) Influenza A & B Note 02/04/23 Range/Units 15:37 WBC (4.8-10.8) X10*3/uL RBC (4.20-5.50) X10*6/uL Hgb (12.0-16.0) g/dl Hct (37.0-47.0) % MCV (80.0-98.0) fL MCH (27.0-33.0) pg MCHC (31.0-35.0) g/dl RDW (11.0-16.0) % Plt Count (160-400) X10*3/uL MPV (9.4-12.3) fL Immature Gran % (Auto) (0.0-0.4) % Neut % (Auto) (45-73) % Lymph % (Auto) (20-40) % [place] % (Auto) (2-11) % Eos % (Auto) (0-4) % Baso % (Auto) (0-2) % Lymph # (Auto) (1.2-4.9) X10*3/uL [place] # (Auto) (0.1-1.2) X10*3/uL Eos # (Auto) (0.0-0.4) X10*3/uL Baso # (Auto) (0.0-0.2) X10*3/uL Abs Immat Gran (auto) (0.00-0.03) X10*3/uL Absolute Neuts (auto) (2.0-8.3) x10*3/uL Absolute Nucleated RBC (0.0-0.012) X10*3/uL Nucleated RBC % (auto) (0.0-0.2) /100WBC Sodium (135-145) mmol/L Potassium 4.2 D (3.3-5.1) mmol/L Chloride (96-108) mmol/L Carbon Dioxide (22-29) mmol/L Anion Gap (12-20) BUN (9-16) mg/dL Creatinine (0.5-1.4) mg/dL Estim Creat Clear Calc Estimated GFR Random Glucose (60-115) mg/dL Calcium (8.4-10.2) mg/dL Magnesium (1.6-2.6) mg/dL Total Bilirubin (0.0-1.0) mg/dL AST (5-31) U/L ALT (0-31) U/L Alkaline Phosphatase (39-117) U/L Total Creatine Kinase (26-140) U/L Troponin I High Sens (<3.5-17.0) ng/L B-Natriuretic Peptide (<100) pg/mL Total Protein (6.5-8.0) g/dL Albumin (3.5-5.0) g/dL COVID-19 (ANGELA) (Negative) COVID-19 Clin Com Influenza Type A (BRIDGER) (Negative) Influenza Type B (BRIDGER) (Negative) Influenza A & B Note Independent Interpretation I performed an independent interpretation of an: Plain X-Ray (Chest: No acute intrathoracic pathology.) Radiology Impression Discussion of test interpretation with radiology: I have reviewed the radiologist's reading. Discharge Plan Discharge Clinical Impression: Bronchitis Patient Disposition: Home, Self-Care Instructions: Acute Bronchitis (ED) Prescriptions: New azithromycin [Zithromax Z-Jorge] 250 mg tablet See Rx Instructions .ROUTE .COMPLEX Qty: 6 0RF Rx Instructions: For 250 mg dose pack: take 500 mg today (day 1), then 250 mg for 4 days (days 2-5) prednisone 20 mg tablet 20 mg PO BID Qty: 10 0RF albuterol sulfate 90 mcg/actuation HFA aerosol inhaler 1 inh inhalation QID PRN (Reason: shortness of breath or wheezing) Qty: 8.5 0RF No Action (DME) blood pressure monitor [Blood Pressure Kit] Kit See Rx Instructions .Route Qty: 1 0RF Rx Instructions: As directed (DME) CANE See Rx Instructions .Route .MEDSUPPLY Qty: 1 0RF Rx Instructions: As directed (DME) WRIST BRACE See Rx Instructions .Route .MEDSUPPLY Qty: 1 0RF Rx Instructions: As directed (DME) BATH CHAIR See Rx Instructions .Route .MEDSUPPLY Qty: 1 0RF Rx Instructions: As directed (DME) LIFELINE ALERT SYSTEM See Rx Instructions .Route .MEDSUPPLY Qty: 1 0RF Rx Instructions: As directed (DME) ALCOHOL PADS See Rx Instructions .Route .MEDSUPPLY Qty: 100 3RF Rx Instructions: As directed (DME) ROLLATOR See Rx Instructions .Route .MEDSUPPLY Qty: 1 0RF Rx Instructions: As directed (DME) WRIST SPLINT Right and Left hand See Rx Instructions .Route .MEDSUPPLY Qty: 1 0RF Rx Instructions: As directed (DME) SHOWER WAND See Rx Instructions .Route .MEDSUPPLY Qty: 1 0RF Rx Instructions: As directed (DME) SHOWER BAR See Rx Instructions .Route .MEDSUPPLY Qty: 1 0RF Rx Instructions: As directed (DME) Bedside commode See Rx Instructions .Route .MEDSUPPLY Qty: 1 0RF Rx Instructions: As directed (DME) Bed pads See Rx Instructions .Route .MEDSUPPLY Qty: 100 12RF Rx Instructions: As directed (DME) SANITARY PADS See Rx Instructions .Route .MEDSUPPLY Qty: 100 12RF Rx Instructions: As directed simethicone 40 mg/0.6 mL drops,suspension 0.6 ml PO BID-TID PRN (Reason: abdominal distention) Qty: 15 0RF alum-mag hydroxide-simeth [Maalox Advanced] 200-200-20 mg/5 mL suspension 5 ml PO 5XD PRN (Reason: indigestion) Qty: 355 0RF Rx Instructions: administer between meals and at bedtime tramadol 50 mg tablet 50 mg PO Q6H PRN (Reason: pain) 30 Days Qty: 60 1RF Ensure Complete 0.1 gram-1.18 kcal/mL liquid 1 ea PO TID Qty: 1184 12RF polyethylene glycol 3350 [Miralax] 17 gram powder in packet 17 g PO DAILY Qty: 14 3RF Rx Instructions: Use daily until you have a normal bowel movement, then stop. sucralfate [Carafate] 100 mg/mL suspension 5 ml PO QID Qty: 1000 0RF Rx Instructions: swish in mouth and swallow; use after food/drink omeprazole magnesium [Prilosec OTC] 20 mg tablet,delayed release (DR/EC) 20 mg PO BID Qty: 30 0RF ondansetron 4 mg tablet,disintegrating 4 mg PO Q8-12H PRN (Reason: nausea and vomiting) Qty: 10 0RF alum-mag hydroxide-simeth [Advanced Antacid-Antigas] 200-200-20 mg/5 mL suspension 10 ml PO QID PRN (Reason: indigestion) Qty: 355 0RF Rx Instructions: administer between meals and at bedtime oydaaprku-intlyp-aamwevdc-scop [] 16.2 mg-0.1037 mg/5 mL (5 mL) elixir 5 ml PO BID PRN (Reason: indigestion) Qty: 50 0RF ondansetron 4 mg tablet,disintegrating 4 mg PO Q8H PRN (Reason: nausea and vomiting) Qty: 10 0RF acetaminophen 500 mg/15 mL liquid 1,000 mg PO Q6H PRN (Reason: pain) Qty: 1000 0RF omeprazole 40 mg capsule,delayed release(DR/EC) 40 mg PO DAILY Qty: 10 0RF fluticasone propionate [Flonase Allergy Relief] 50 mcg/actuation spray,suspension 1 spray intranasal DAILY Qty: 100 0RF Rx Instructions: administer into each nostril (DME) blood-glucose meter [OneTouch Verio Meter] Misc See Rx Instructions .Route Rx Instructions: As directed (DME) OneTouch Verio test strips Strip See Rx Instructions .Route Rx Instructions: As directed 3 times a day (DME) lancets [OneTouch Delica Lancets] 33 gauge misc See Rx Instructions .Route Rx Instructions: As directed 3 times a day pantoprazole [address] for susp in packet 40 mg PO BID Qty: 60 5RF Ensure Complete 0.1 gram-1.18 kcal/mL liquid 1 ea PO TID Qty: 1184 2RF Referrals: Óscar,Deirdre Raymundo MD [Primary Care Provider] - Interventions: ED Discharge Assessment Last Done: 02/04/23 17:09 Discharge Date/Time: 02/04/23 17:11
[2023-02-04 13:11] VITALS: BP 118/98; PULSE 68; RESP 12
[2023-02-04 16:50] VITALS: BP 97/58; PULSE 72; RESP 14; TEMP 36.1; O2SAT 96
== END 2023-02-04 17:11 | disposition home or self-care (01) ==
PROVIDERS: Emergency Provider Emergency Medicine; PCP Internal Medicine
DX: J40 Bronchitis, not specified as acute or chronic (principal); R10.13 Epigastric pain; R06.02 Shortness of breath; Z20.822 Contact with and (suspected) exposure to COVID-19; Z20.828 Contact with and (suspected) exposure to other viral communicable diseases; Z79.899 Other long term (current) drug therapy
CPT/HCPCS: 36415; 71045; 80053; 82550; 83735; 83880; 84132; 84484; 85025; 87502; 87635; 93005; 96374; 99284; 99285

== ENCOUNTER → 2023-02-04 11:30 | Outpatient (BNV) | payer OTHER, SELFPAY | PROVIDERS: Emergency Provider Emergency Medicine; PCP Internal Medicine; Visit Provider Internal Medicine Cardiovascular Disease | DX: R55 Syncope and collapse (principal) | CPT/HCPCS: 93010 ==

== ENCOUNTER 2023-02-05 07:57 | Outpatient (AMB) | payer OTHER, SELFPAY ==
[2023-02-05 08:13] VITALS: BP 98/52; PULSE 66; O2SAT 97; BMI 18.9
--- NOTE | 2023-02-05 08:13 | MHC.PC.OV ---
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 Maker Name: Norm [id number] Information Interpreted: non-clinical & clinical Allergies tomato [TOMATO] Allergy (Mild, Verified 02/05/23 08:13) HIVES DIFFICULTY BREATHING hydrocodone [HYDROCODONE] Allergy (Unknown, Verified 02/05/23 08:13) RASH, AIRWAY CLOSES ibuprofen [From MOTRIN] Allergy (Unknown, Verified 02/05/23 08:13) STOMACH UPSET, vomiting trazodone [TRAZODONE] Allergy (Unknown, Verified 02/05/23 08:13) UNKNOWN, stomach upset black pepper [BLACK PEPPER] Adverse Reaction (Severe, Verified 02/05/23 08:13) DIFFICULTY BREATHING, hives lisinopril Adverse Reaction (Severe, Verified 02/05/23 08:13) Anaphylaxis Tobacco use date assessed: 08/23/22 Dental Screening Dental Screen Date: 02/05/23 Did you have a dental visit in the last 12 months?: No Did you have a dental problem in the last 6 months where you did not have access to dental care?: No Was dental information given to patient?: No HPI HPI Comments History of Present Illness Details 42-year-old female past medical history significant for schizophrenia, polysubstance abuse, anemia, hypercholesteremia, severe GERD,s/p gastric sleeve, hypertension and generalized anxiety disorder. Patient has had several admissions to the emergency room for gastritis history of esophageal stricture with severe reflux patient currently on Protonix had upper GI studies completed supposed to see Gastroenterology on 02/20/23 for endoscopy. Patient most recent ER visit was 02/04/2023 for right ear pain, stuffiness, coughing up green sputum patient was treated with Z-Jorge, prednisone albuterol for bronchitis. Chest x-ray unremarkable, labs unremarkable except potassium slightly elevated at 5.4. Patient presents today for lumbar back pain with radiating right leg numbness. ABD CT January 2023: CT/CT abdomen pelvis wo IV con IMPRESSION: Dense contrast material throughout the colon, without findings to suggest colitis. No acute findings identified. 01/26/23ORDER #: [id number] FL/FL upper GI w air IMPRESSION: Severe gastroesophageal reflux. Mucosal irregularity suggestive of esophagitis. Moderate distal esophageal stricture. These findings appear increased from July 2022. Correlation with endoscopy recommended. Postsurgical changes from gastric sleeve similar to previous exam. Prominent folds seen in the duodenal bulb or bubbly bulb appearance. Patient states has follow up on Sunday [facility]. Patient states chronic lower back pain [id number] and legs are failing. Patient reports has fallen at home. States numbness right leg, right toes. Denies any bowel or bladder issues. Patient requesting imaging of her back. Patient requesting complete blood work done she has been experiencing fatigue, complete fasting blood work ordered. ? [facility] 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 Diverticulosis GERD (gastroesophageal reflux disease) History of bipolar disorder History of schizophrenia Hypercholesterolemia Hypertension Insomnia Numbness of left hand Renal calculi Spondylosis of lumbar spine Type 2 diabetes mellitus with hyperglycemia Vitamin D deficiency Surgical History H/O: hysterectomy History of tubal ligation Hx of bariatric surgery Family History Father Medical history unknown Mother Medical history unknown Paternal Aunt Uterine cancer Diabetes Hypertension Paternal Uncle Liver cancer Heart attack Maternal Aunt Stroke Family/Other Chronic mental illness Sister Uterine cancer Schizophrenia Brother Substance abuse Other Mental health disorder Social History Household Members: None Housing: Apartment Do you presently have visiting nurse or other home services: Yes Alcohol intake: never Patient Tobacco Use Status: Never used Tobacco e-Cigarette/Vaping Use: Never Used Second Hand Smoke Exposure: No service: No Current occupational status: disabled Current occupational exposures/hazards: No Cognitive needs: No Hearing needs: No Vision needs: No Female Reproductive History Menstrual Age of Menarche: 11 Questionnaire PHQ-9 Over the last 2 weeks, how often have you been bothered by any of the following problems? 1. Little interest or pleasure in doing things: several days 2. Feeling down, depressed, or hopeless: several days 3. Trouble falling or staying asleep, or sleeping too much: several days 4. Feeling tired or having little energy: several days 5. Poor appetite or overeating: several days 6. Feeling bad about yourself - or that you are a failure or have let yourself or your family down: not at all 7. Trouble concentrating on things, such as reading the newspaper or watching television: not at all 8. Moving or speaking so slowly that other people could have noticed. Or the opposite - being so fidgety or restless that you have been moving around a lot more than usual: not at all 9. Thoughts that you would be better off or of hurting yourself in some way: not at all Total score: 5 Depression Screening Interpretation: Positive [id number] - PHQ-9 Billing: Yes Source: Developed by Drs. Dinesh Freire, Niru Dimas, Denys Dodson and colleagues, with an educational mihai from [employer]. Thrive Questionnaire Date Thrive assessed: 08/23/22 AUDIT C Alcohol Use Questionnaire (AUDIT-C) 1. How often do you have a drink containing alcohol?: Never Total Score: 0 Score Reviewed/Action Taken: No JUDITH-7 AMB Questionnaire JUDITH-7 Date JUDIHT - 7 assessed: 08/23/22 Source: Developed by Drs. Dinesh Freire, Niru Dimas, Denys Dodson and colleagues, with an educational mihai from [employer]. Review of Systems Const Denies chills, Denies fatigue, Denies fever(s) and Denies poor appetite Eyes Denies no additional complaints ENT Reports Normal hearing present Card Denies chest pain, Denies syncope, Denies rapid heart rate and Denies dyspnea Resp Denies cough and Denies dyspnea GI Denies change in stool character, Denies constipation, Denies diarrhea, Denies nausea and Denies vomiting Denies urinary frequency, Denies dysuria and Denies urinary urgency Musc Reports back pain, Reports numbness (radiating to right leg) and Reports radiating pain into limb Neuro Reports Normal hearing present, Denies confusion, Denies syncope and Reports numbness (radiating to right leg) Psych Denies confusion Endo Denies fatigue Physical exam (Primary Care) Vital Signs: Last Vital Signs Pulse 66 02/05/23 08:13 BP 98/52 L 07/10/23 08:13 Pulse Ox 97 02/05/23 08:13 Oxygen Delivery Method Room Air 02/05/23 08:13 BMI result Body Mass Index 18.9 Tobacco/Smoking Status: Tobacco use Status Tobacco use date assessed 08/23/22 02/05/23 08:22 Patient Tobacco Use Status Never used Tobacco 02/05/23 08:22 e-Cigarette/Vaping Use Never Used 02/05/23 08:22 PHQ-9: PHQ-9 Score PHQ-9: Total score 5 02/05/23 08:22 Depression Screening Interpretation: Positive Thrive Assessment: Date of Thrive Assessment Date Thrive assessed 08/23/22 02/05/23 08:22 Const General: No confusion Orientation/consciousness: No confusion HENMT Head: Yes normocephalic and Yes atraumatic Eyes Conjunctivae: conjunctivae normal Chest Chest palpation & inspection: normal inspection of the chest Resp Effort & Inspection: normal respiratory effort Auscultation: clear to auscultation bilaterally, no crackles, no rhonchi and no wheezes Cardio Rate: regular rate Rhythm: regular rhythm Heart sounds: S1 normal heart sound present and S2 normal heart sound present GI Inspection: Yes normal to inspection Back/Spine/Pelvis Cervical Spine: normal cervical lordosis and cervical ROM normal Thoracic/Lumbar Spine: thoracic and lumbar spine normal to inspection, pain with thoraco-lumbar ROM, No thoracic spinal tenderness and No lumbar spinal tenderness Pelvis: sciatic notch tenderness Neuro General: No confusion Cranial nerves: Yes Normal hearing present Extrem General: No edema Assessment and Plan Assessment & Plan (1) Hypercholesterolemia: Code(s): E78.00 - Pure hypercholesterolemia, unspecified Plan: Fasting lipid panel ordered. Follow low-cholesterol diet. (2) GERD (gastroesophageal reflux disease): Code(s): K21.9 - Gastro-esophageal reflux disease without esophagitis Plan: Patient requesting refills on sulcarafate and maalox. 1x refills given until patient can etablish care with athletic agent. Patient states has an appoint with GI on Sunday. (3) Lumbar back pain with radiculopathy affecting right lower extremity: Code(s): M54.16 - Radiculopathy, lumbar region Plan: Patient can take Tylenol or previously prescribed tramadol as needed for pain. Offered referral to physical therapy however patient declines at this time would like to proceed with lumbar spine x-ray prior to starting physical therapy treatment. Lumbar spine x-ray ordered. Follow-up in 3 months. Plan Follow-up in 6 months for physical exam, patient requesting with Dr. Cantrell Orders: Orders XR lumbar spine 2-3V Today M54.50 - Low back pain, unspecified Comprehensive [place]. Panel Fast Today Z13.1 - Encounter for screening for diabetes mellitus Complete Blood Count Auto Diff Today Z13.0 - Encounter for screening for diseases of the blood and blood-forming organs and certain disorders involving the immune mechanism Lipid Panel Today Z13.220 - Encounter for screening for lipoid disorders Vitamin B12 and Folate Today Z13.21 - Encounter for screening for nutritional disorder Hemoglobin A1c Today Z13.1 - Encounter for screening for diabetes mellitus TSH reflex Free T4 Today Z13.29 - Encounter for screening for other suspected endocrine disorder Vitamin D 25-OH Total Today Z13.21 - Encounter for screening for nutritional disorder Referrals [facility] Referral Z12.4 - Encounter for screening for malignant neoplasm of cervix Medications: Refilled sucralfate (Carafate) swish in mouth and swallow; use after food/drink 5 mL PO QID 1,000 mL 0RF alum-mag hydroxide-simeth 200-200-20 mg/5 mL (Maalox Advanced) administer between meals and at bedtime 5 mL PO 5XD PRN 355 mL 0RF indigestion Coding Level of Care Code Est Pt Level 4 (82869) Diagnoses Hypercholesterolemia E78.00 GERD (gastroesophageal reflux disease) K21.9 Lumbar back pain with radiculopathy affecting right lower extremity M54.16
== END 2023-02-05 08:46 | disposition home or self-care (01) ==
PROVIDERS: Visit Provider Nurse Practitioner Family
DX: E78.00 Pure hypercholesterolemia, unspecified (principal); K21.9 Gastro-esophageal reflux disease without esophagitis; M54.16 Radiculopathy, lumbar region; M54.50 Low back pain, unspecified; Z13.1 Encounter for screening for diabetes mellitus; Z13.0 Encounter for screening for diseases of the blood and blood-forming organs and certain disorders involving the immune mechanism; Z13.220 Encounter for screening for lipoid disorders; Z13.21 Encounter for screening for nutritional disorder; Z13.29 Encounter for screening for other suspected endocrine disorder; Z12.4 Encounter for screening for malignant neoplasm of cervix
CPT/HCPCS: 99214

== ENCOUNTER 2023-02-05 09:05 | Outpatient (REF) | payer OTHER, SELFPAY ==
--- NOTE | ~2023-02-05 | XR_ITS ---
EXAMINATION: XR LUMBOSACRAL SPINE CLINICAL INFORMATION: Lower back pain, unspecified COMPARISON: CT lumbar spine 10/18/2022 TECHNIQUE: Three views of the lumbosacral spine. FINDINGS: Previously described Schmorl's deformity at the inferior endplate of L5 is less well visualized on the present study than on prior CT. The vertebral bodies and posterior elements are normal. There is mild endplate change at T11-T12 which is similar to prior. Disc spaces are preserved and the vertebral alignment is normal. The paraspinal soft tissues are normal. XR/XR lumbar spine 2-3V IMPRESSION: Stable examination. No acute process.
--- NOTE | ~2023-02-05 | US_ITS ---
EXAMINATION: US PELVIS COMPLETE CLINICAL INFORMATION: Ovarian cyst COMPARISON: Pelvic ultrasound 10/26/2022 TECHNIQUE: Transabdominal and transvaginal imaging was performed. FINDINGS: Status post hysterectomy. Both ovaries are of normal size and echogenicity. The right measures 2.6 x 1.7 x 2.1 cm for a volume of 4.7 mL. The left measures 2.5 x 1.5 x 1.8 cm for a volume of 3.6 mL. Physiologic follicles are present almost certainly benign for which no follow-up imaging is recommended. No suspicious cyst or adnexal mass. There is no pelvic free fluid. US/US pelvic and transvaginal IMPRESSION: 1. No suspicious cyst or adnexal mass. 2. Status post hysterectomy.
[2023-02-05 10:47] LABS: Estimated Average Glucose 85 mg/dL; Hemoglobin A1c % 4.6 %
[2023-02-05 12:14] LABS: Alanine Aminotransferase 7 U/L (0-31); Albumin Level 4.4 g/dL (3.5-5.0); Alkaline Phosphatase 67 U/L (39-117); Anion Gap 14 (12-20); Aspartate Amino Transferase 11 U/L (5-31); Bilirubin Total 0.3 mg/dL (0.0-1.0); Blood Urea Nitrogen 13 mg/dL (9-16); Calcium 9.6 mg/dL (8.4-10.2); Carbon Dioxide 26 mmol/L (22-29); Chloride 105 mmol/L (96-108); Cholesterol 136 mg/dL; Estimated Glomerular Filt Rate > 60; Glucose Fasting 70 mg/dL (60-99); HDL Cholesterol 43 mg/dL; LDL Cholesterol Calculated 82 mg/dl; Potassium 4.1 mmol/L (3.3-5.1); Sodium 141 mmol/L (135-145); Total Protein 7.3 g/dL (6.5-8.0); Triglycerides 56 mg/dL
[2023-02-05 12:20] LABS: Insulin 3 uU/mL (2-29); TSH reflex Free T4 0.81 uIU/mL (0.32-4.0)
== END 2023-02-05 09:06 | disposition home or self-care (01) ==
LOC: HO.US 09:05
PROVIDERS: Nurse Practitioner Family; Physician Assistant; PCP Internal Medicine; Visit Provider Obstetrics & Gynecology
DX: Z13.1 Encounter for screening for diabetes mellitus (principal); Z13.21 Encounter for screening for nutritional disorder; Z13.0 Encounter for screening for diseases of the blood and blood-forming organs and certain disorders involving the immune mechanism; K91.2 Postsurgical malabsorption, not elsewhere classified; M54.50 Low back pain, unspecified; N83.299 Other ovarian cyst, unspecified side; Z90.3 Acquired absence of stomach [part of]
CPT/HCPCS: 36415; 72100; 76830; 76856; 80053; 80061; 82306; 82607; 82746; 83036; 83525; 84443; 85025

== ENCOUNTER 2023-02-07 12:36 | Outpatient (AMB) | payer OTHER, SELFPAY ==
--- NOTE | 2023-02-07 12:39 | MHC.OFFVIS ---
Intake Vital Signs 02/07/23 12:40 Height 5 ft 1 in Weight 100 lb BMI 18.9 BP 115/55 L Blood Pressure Location Lt brachial Position Sitting Pulse 70 Intake Visit Reasons: Esophagitis without bleeding Intake Note: Tye presents in the office as a new patient for Esophagitis w/o bleeding. CC: She is here because she is having dysphagia and unable to take tablets or pills. She is having pains in her throat - she has narrowing in her esophagus and stomach. Bodybuilder Required: Yes Bodybuilder Name: [id number] Allergies tomato [TOMATO] Allergy (Mild, Verified 02/07/23 12:44) HIVES DIFFICULTY BREATHING hydrocodone [HYDROCODONE] Allergy (Unknown, Verified 02/07/23 12:44) RASH, AIRWAY CLOSES ibuprofen [From MOTRIN] Allergy (Unknown, Verified 02/07/23 12:44) STOMACH UPSET, vomiting trazodone [TRAZODONE] Allergy (Unknown, Verified 02/07/23 12:44) UNKNOWN, stomach upset black pepper [BLACK PEPPER] Adverse Reaction (Severe, Verified 02/07/23 12:44) DIFFICULTY BREATHING, hives lisinopril Adverse Reaction (Severe, Verified 02/07/23 12:44) Anaphylaxis HPI HPI Comments History of Present Illness Details 42 y.o F with PMH of sleeve gastrectomy in 09/2021 (Dr Driscoll), hx of reflux and esophagitis PRE-gastrectomy, who is here for difficulty and painful swallowing. Pt reports that she has had intermittent heartburn for at least 5 years now. Has had EGD in 2018 and 2020 for the same as well ([facility] [place]). This was previously controlled by avoiding food triggers and taking PPI. However after her SG, starting November 2021, she started noticing sensation of food getting stuck and regurgitation which got worse with time. Her heartburn also got aggravated where it would not respond to once daily dosing of PPI. She was seen by Dr Driscoll for follow up who recommended increasing PPI and reportedly to consider a feeding tube? Records not available from his consultation. Pt has also now been [place] [facility] [place]. She has had at least 2 EGDs this month (Aug 2022 Dr Jennifer OSCAR and November 2022 Dr Multani) both demonstrating significant esophagitis as well as a mild esophageal stricture and narrowing of the sleeve. Pt reports losing 90 lbs since the surgery. However, notes that it has slowed down in the past 2 months since starting ensure and notices heartburn has improved a bit since increasing the PPI and adding carafate and maalox as outlined by Bariatric PA. [facility]GIS 01/26/23: FINDINGS: There is severe gastroesophageal reflux. There is mucosal irregularity of the mid and distal esophagus suggestive of esophagitis. There is a moderate stricture of the distal thoracic esophagus. This appears increased from July 2022. 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 This is similar to previous exam. The stomach is otherwise normal. There is fold thickening or bubbly bulb appearance to the duodenal bulb. This can be seen with hyperacidity. [facility] 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 Diverticulosis GERD (gastroesophageal reflux disease) History of bipolar disorder History of schizophrenia Hypercholesterolemia Hypertension Insomnia Numbness of left hand Renal calculi Spondylosis of lumbar spine Type 2 diabetes mellitus with hyperglycemia Vitamin D deficiency Surgical History H/O: hysterectomy History of esophagogastroduodenoscopy (EGD) History of tubal ligation Hx of bariatric surgery Hx of colonoscopy Family History Father Medical history unknown Mother Medical history unknown Paternal Aunt Uterine cancer Diabetes Hypertension Paternal Uncle Liver cancer Heart attack Maternal Aunt Stroke Family/Other Chronic mental illness Sister Uterine cancer Schizophrenia Brother Substance abuse Other Mental health disorder Social History Household Members: None Housing: Apartment Do you presently have visiting nurse or other home services: Yes Alcohol intake: never Patient Tobacco Use Status: Never used Tobacco e-Cigarette/Vaping Use: Never Used Second Hand Smoke Exposure: No service: No Current occupational status: disabled Current occupational exposures/hazards: No Cognitive needs: No Hearing needs: No Vision needs: No Female Reproductive History Menstrual Age of Menarche: 11 Physical Exam Vital Signs: Last Vital Signs Pulse 70 02/07/23 12:40 BP 115/55 L 02/07/23 12:40 BMI result Body Mass Index 18.9 Gen appear: NAD, thin appearing female HEENT: nonicteric, no cervical lymphadenopathy Chest: CTA CVS: Regular S1/S2 Abd: soft, nontender, nondistended, bowel sounds + Ext: no peripheral edema Neuro: A/Ox3, noted to move all extremities spontaneously Psych: interacting appropriately Assessment & Plan Assessment & Plan (1) Gastric hourglass stricture or stenosis: Code(s): K31.2 - Hourglass stricture and stenosis of stomach (2) Underweight: Code(s): R63.6 - Underweight (3) Dysphagia: Code(s): R13.10 - Dysphagia, unspecified (4) GERD (gastroesophageal reflux disease): Code(s): K21.9 - Gastro-esophageal reflux disease without esophagitis (5) Esophagitis: Code(s): K20.90 - Esophagitis, unspecified without bleeding Plan Main issue appears to be caloric deficiency and malnutrition secondary to dysphagia which in turn is due to severe esophagitis and esophageal stricture secondary to profound reflux disease. Based on the last 2 EGDs (which were both done on double dose PPI) this appears to be refractory to PPI use. Pt has been seeing Bariatrics for consideration of revision to RYGB which will help with the above however main barrier appears to be question of etOH and nicotine use. On extensive discussion with the pt - this does not appear to be on a daily basis and pt maintains that she only has drinks on certain occasions such as her birthday. Similarly with smoking, previously used to smoke 0.5-1PPD but does not report smoking > 3 years. She says the urine tox was most likely after sharing a few smokes with her friend. This is CONSISTENT with the levels of nicotine and cotinine checked as both are BELOW the range seen in smokers. She was counseled extensively that while her etOH intake does NOT meet criteria for etOH use disorder (which by definition would be consistent consumption of >2 drinks/ day or >7 drinks/week), per my impression of the prior documentation, the best practice would be to be completely abstinent to help with moving forward with surgical planning. Similarly, while she does not think occasional cigarette sharing with friends will lead to recurrence of tobacco dependence, it is important to avoid ANY tobacco or tobacco products in order to continue assessment for revision as well as to avoid any elsi-procedure complications. Pt tells me that she had a similar discussion with Dr Saenz as well last week and is committed to avoid both of the above for her health. I did convey my concerns that while G tube may help bridge nutritional deficits, her profound PPI-refractory reflux will remain untreated with this strategy and therefore I will try to have her get seen Dr Dimas for formal consultation for consideration of revision to RYGB. In the meantime, we will arrange for another EGD 8-10 weeks from the previous EGD in November to assess for mucosal healing +/- dilation of esophageal stricture. Orders: Referrals Bariatric Surgery Referral K20.90 - Esophagitis, unspecified without bleeding, Z90.3 - Acquired absence of stomach [part of] Coding Level of Care Code New Pt Level 4 (50442) Diagnoses Gastric hourglass stricture or stenosis K31.2 Underweight R63.6 Dysphagia R13.10 GERD (gastroesophageal reflux disease) K21.9 Esophagitis K20.90
[2023-02-07 12:40] VITALS: BP 115/55; PULSE 70; BMI 18.9
== END 2023-02-07 15:23 | disposition home or self-care (01) ==
PROVIDERS: PCP Internal Medicine; Visit Provider Internal Medicine
DX: K31.2 Hourglass stricture and stenosis of stomach (principal); R63.6 Underweight; R13.10 Dysphagia, unspecified; K21.9 Gastro-esophageal reflux disease without esophagitis; K20.90 Esophagitis, unspecified without bleeding
CPT/HCPCS: 99204

== ENCOUNTER → 2023-02-07 12:36 | Outpatient (BNVA) | payer OTHER, SELFPAY | PROVIDERS: PCP Internal Medicine; Visit Provider Internal Medicine | DX: K31.2 Hourglass stricture and stenosis of stomach (principal); K21.9 Gastro-esophageal reflux disease without esophagitis; K20.90 Esophagitis, unspecified without bleeding; R63.6 Underweight; R13.10 Dysphagia, unspecified | CPT/HCPCS: 99202 ==

== ENCOUNTER 2023-02-10 11:20 | Emergency (ER) | payer OTHER, SELFPAY ==
[2023-02-10] VITALS (7 sets, daily range): BP systolic 95–120; BP diastolic 56–87; PULSE 53–88; RESP 13–19; TEMP 36.6–37.1; O2SAT 95–99; BMI 18.6
--- NOTE | ~2023-02-10 | CT_ITS ---
EXAMINATION: CT ABDOMEN AND PELVIS WITH CONTRAST CLINICAL INFORMATION: Status post gastric sleeve. Mild absorption. Left lower quadrant abdominal pain. COMPARISON: Multiple priors with the last abdomen and pelvic CT of 01/29/2023 TECHNIQUE: Multidetector volumetric images were obtained from the superior aspect of the liver through the pubic symphysis following administration 85 mL of Omnipaque 350 intravenous contrast. Sagittal and coronal reformatted images were obtained on the technologist's workstation. Initial scan through the abdomen and pelvis was performed without oral contrast administration. Repeat scan was performed through the abdomen following administration of oral contrast. Oral contrast: Yes This CT examination was performed using dose optimization techniques as appropriate, variously including the following: *Automated exposure control *Adjustment of mA and/or kV according to patient size (this includes techniques or standardized protocols for targeted exams where dose is matched to indication/reason for exam; i.e. extremities or head) *Use of iterative reconstruction technique DLP: 441 mGy-cm FINDINGS: LUNG BASES: The visualized lung bases are unremarkable. LIVER, GALLBLADDER, AND BILIARY TREE: The liver is normal in size, shape and attenuation. A 0.7 cm low-attenuation in the hepatic dome is a stable finding when compared to previous CT scan of 08/01/2014. A subcentimeter low-attenuation in the hepatic dome (series 5 image 42) is also stable finding since previous CT scan of 08/01/2014. Subcentimeter low-attenuation adjacent to gallbladder (series 5 image 201) does not appear to be significantly changed when compared to previous CT scan of 07/24/2019. No new liver lesions are seen. The gallbladder is unremarkable with no evidence of radiopaque gallstones, gallbladder wall thickening, or obvious pericholecystic inflammatory changes. PANCREAS: Unremarkable. SPLEEN: Unremarkable. ADRENAL GLANDS: Unremarkable. KIDNEYS AND URETERS: The kidneys are normal in size, shape, and attenuation. No hydronephrosis, hydroureter, or calculi seen. No perinephric stranding. BLADDER: Underdistended and therefore not optimally evaluated. No radiopaque calculi are seen. GASTROINTESTINAL TRACT: Postsurgical changes of gastrectomy are again noted. Mild dilatation of the distal esophagus containing oral contrast traverses small hiatal hernia is redemonstrated. No abnormal dilatation of the stomach is seen. Oral contrast is noted in the multiple proximal small bowel loops. The proximal and mid duodenum is mildly distended with oral contrast however on this study without oral contrast administration no abnormal dilatation of small bowel is noted here. The colon is normal in caliber. No evidence of colonic wall thickening or pericolonic fat stranding. Moderate to large stool burden is noted throughout the colon. An appendix is normal. ABDOMINAL WALL: No significant hernia is appreciated. LYMPH NODES: Normal. VASCULAR: Unremarkable. PELVIC VISCERA: The uterus is not seen, likely surgically absent, recommend correlation with surgical history. No adnexal mass. OSSEOUS STRUCTURES: Stable. No acute or suspicious osseous lesions. CT/CT abdomen pelvis w IV con IMPRESSION: No acute abnormality is noted to extend patient's symptoms. Moderate to large stool burden in the colon without abnormal colonic dilatation. Postsurgical changes of sleeve gastrectomy are redemonstrated with mild dilatation of the distal esophagus versus small hiatal hernia containing oral contrast which may suggest gastroesophageal reflux. Fleischner guidelines were followed.
--- NOTE | ~2023-02-10 | CT_ITS ---
EXAMINATION: CT HEAD WITHOUT CONTRAST CLINICAL INFORMATION: Syncope with head strike. Loss of consciousness. COMPARISON: Most recent CT head dated 11/03/2022. TECHNIQUE: Contiguous axial imaging was performed from the skull base to vertex without intravenous administration of contrast. This CT examination was performed using dose optimization techniques as appropriate, variously including the following: *Automated exposure control *Adjustment of mA and/or kV according to patient size (this includes techniques or standardized protocols for targeted exams where dose is matched to indication/reason for exam; i.e. extremities or head) *Use of iterative reconstruction technique DLP: 505 mGy-cm FINDINGS: No acute intracranial hemorrhage. No mass effect or midline shift. No parenchymal lesion. The singh-white differentiation is maintained. No extra-axial fluid collection. The ventricles and sulci are unremarkable. The basal cisterns are patent. The calvarium is intact. The visualized paranasal sinuses and mastoid air cells are clear. CT/CT head/brain wo IV con IMPRESSION: No acute intracranial hemorrhage or mass effect.
--- NOTE | ~2023-02-10 | XR_ITS ---
EXAMINATION: XR SHOULDER, LEFT CLINICAL INFORMATION: Syncope with fall COMPARISON: None available. TECHNIQUE: Three views of the left shoulder. FINDINGS: Humeral head is well-seated in the glenoid fossa. Marginal osteophytosis in the head is seen. I do not appreciate any acute superimposed fracture or dislocation. Acromioclavicular joint is unremarkable. Visualized left upper ribs and chest unremarkable XR/XR shoulder LT min 2V IMPRESSION: Mild degenerative changes but no acute fracture or dislocation.
--- NOTE | 2023-02-10 11:32 | ED.GENADULT ---
HPI - General Adult General Chief complaint: Syncope Stated complaint: nausea , headache , diahherea Time Seen by Provider: 02/10/23 14:30 Source: patient, RN notes reviewed and old records reviewed Mode of arrival: ambulatory History of Present Illness HPI narrative: 42-year-old female with a past medical history sleeve gastrectomy '22, reflux and esophagitis, esophageal stricture and narrowing of the sleeve, HLD, HTN, insomnia, renal calculi, diabetes, adrenal insufficiency, significant weight loss and dysphagia, presenting to the ED complaining of left lower quadrant abdominal pain x 1 month with associated nausea, vomiting, lightheaded/dizziness, diarrhea, headache, and hematuria x 3 days. Also reports syncopal episode today after standing up, felt lightheaded and + LOC, hit forehead on Buddha. Patient denies taking anticoagulation. Reports lightheadedness increase with position changes. Denies vision loss/change, CP/SOB, constipation, dysuria Related Data Home Medications Medication Instructions Recorded Confirmed blood sugar diagnostic (OneTouch 08/15/22 02/01/23 Verio test strips) blood-glucose meter (OneTouch 08/15/22 02/01/23 Verio Meter) lancets 33 gauge (OneTouch Delica 08/15/22 02/01/23 Lancets) omeprazole 40 mg capsule,delayed 40 mg PO DAILY 02/07/23 release triamcinolone acetonide 0.1 % appl topical 02/07/23 topical cream zolpidem 10 mg tablet 10 mg PO BEDTIME PRN 02/07/23 Previous Rx's Medication Instructions Recorded blood pressure monitor (Blood #1 ea 10/31/21 Pressure Kit) BATH CHAIR #1 ea 01/31/22 CANE #1 ea 01/31/22 LIFELINE ALERT SYSTEM #1 ea 01/31/22 WRIST BRACE #1 ea 01/31/22 ALCOHOL PADS #100 ea 02/21/22 ROLLATOR #1 ea 05/23/22 WRIST SPLINT Right and Left hand #1 ea 05/30/22 SHOWER BAR #1 ea 06/08/22 SHOWER WAND #1 ea 06/08/22 Bed pads #100 ea 07/17/22 Bedside commode #1 ea 07/17/22 SANITARY PADS #100 ea 07/17/22 fluticasone propionate 50 1 spray intranasal DAILY #100 mL 07/27/22 mcg/actuation nasal spray,suspension (Flonase Allergy Relief) simethicone 40 mg/0.6 mL oral 0.6 ml PO BID-TID PRN abdominal 11/08/22 drops,suspension distention #15 mL tramadol 50 mg tablet 50 mg PO Q6H PRN pain 30 days #60 01/22/23 tabs acetaminophen 500 mg/15 mL oral 1,000 mg (30 mL) PO Q6H PRN pain 01/25/23 liquid #1,000 mL ondansetron 4 mg disintegrating 4 mg PO Q8H PRN nausea and 01/25/23 tablet vomiting #10 tabs tbwkuoujv-nbnuyipfj-gjxkvrhx-scop 5 ml PO BID PRN indigestion #50 mL 01/25/23 16.2 mg-0.1037 mg/5 mL (5 mL) elixir () food supplemt, lactose-reduced 0.1 1 ea PO TID #1,184 mL 01/29/23 gram-1.18 kcal/ mL oral liquid (Ensure Complete) polyethylene glycol 3350 17 gram 17 g PO DAILY #14 ea 01/31/23 oral powder packet (Miralax) albuterol sulfate 90 mcg/actuation 1 inh inhalation QID PRN shortness 02/04/23 aerosol inhaler of breath or wheezing #8.5 grams azithromycin 250 mg tablet See Rx Instructions PO .COMPLEX #6 02/04/23 (Zithromax Z-Jorge) tabs prednisone 20 mg tablet 20 mg PO BID #10 tabs 02/04/23 aluminum-mag hydroxide-simethicone 5 ml PO 5XD PRN indigestion #355 mL 02/05/23 200 mg-200 mg-20 mg/5 mL oral susp (Maalox Advanced) sucralfate 100 mg/mL oral 5 ml PO QID #1,000 mL 02/05/23 suspension (Carafate) pantoprazole 40 mg granules 40 mg PO BID 30 days #60 packets 02/09/23 delayed-release for susp in packet Allergies Allergy/AdvReac Type Severity Reaction Status Date / Time tomato [TOMATO] Allergy Mild HIVES Verified 02/10/23 11:25 DIFFICULTY BREATHING hydrocodone [HYDROCODONE] Allergy Unknown RASH, Verified 02/10/23 11:25 AIRWAY CLOSES ibuprofen [From MOTRIN] Allergy Unknown STOMACH Verified 02/10/23 11:25 UPSET, vomiting trazodone [TRAZODONE] Allergy Unknown UNKNOWN, Verified 02/10/23 11:25 stomach upset black pepper [BLACK PEPPER] AdvReac Severe DIFFICULTY Verified 02/10/23 11:25 BREATHING, hives lisinopril AdvReac Severe Anaphylaxis Verified 02/10/23 11:25 Review of Systems Review of Systems: Constitutional: No Fever, No Chills, Fatigue, + Malaise ENT/Mouth: No Ear Pain, No Nasal Congestion, No sore throat, No Rhinorrhea, No Swallowing Difficulty Eyes: No Eye Pain, No Swelling, No Redness, No Vision Changes Cardiovascular: No Chest Pain, No SOB, No Dyspnea on Exertion, No Orthopnea, No Edema, No Palpitations Respiratory: No Cough, No Sputum, No Dyspnea Gastrointestinal: + Nausea, + Vomiting, + Diarrhea, No Constipation, + Abdominal pain Genitourinary: No Dysuria, No Urinary Frequency, + Hematuria, No Flank Pain, No Urinary Flow Changes Musculoskeletal: No joint pain, No Myalgias, No Joint Swelling Skin: No Skin Lesions, No rash Neuro: No Weakness, No Numbness, No Paresthesias, + Loss of Consciousness, + lightheaded/ Dizziness, + Headache Yes all other systems are reviewed and are negative Constitutional: Constitutional: Reports as per HPI Neurologic: Denies Abnormal speech present [facility] Past Medical History Attestation statement: The following information was validated with the patient. 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 Diverticulosis GERD (gastroesophageal reflux disease) History of bipolar disorder History of schizophrenia Hypercholesterolemia Hypertension Insomnia Numbness of left hand Renal calculi Spondylosis of lumbar spine Type 2 diabetes mellitus with hyperglycemia Vitamin D deficiency Surgical History H/O: hysterectomy History of esophagogastroduodenoscopy (EGD) History of tubal ligation Hx of bariatric surgery Hx of colonoscopy Family History Family History Father Medical history unknown Mother Medical history unknown Paternal Aunt Uterine cancer Diabetes Hypertension Paternal Uncle Liver cancer Heart attack Maternal Aunt Stroke Family/Other Chronic mental illness Sister Uterine cancer Schizophrenia Brother Substance abuse Other Mental health disorder Social History Social History Household Members: None Housing: Apartment Do you presently have visiting nurse or other home services: Yes Alcohol intake: current Alcohol intake frequency: holidays/special occasions only Alcohol type: hard liquor Patient Tobacco Use Status: Never used Tobacco Smoked in Last 30 Days: No e-Cigarette/Vaping Use: Never Used Second Hand Smoke Exposure: No Use of substances other than those prescribed or required for medical reasons: No Advance Directives: No service: No Current occupational status: disabled Current occupational exposures/hazards: No Cognitive needs: No Hearing needs: No Vision needs: No Physical Exam ED Vital Signs: Vital Signs - 24 hr 02/10/23 11:28 02/10/23 14:24 02/10/23 14:24 Temperature 97.9 F Pulse Rate 88 58 62 Respiratory Rate 18 Blood Pressure 109/64 104/60 112/79 Pulse Oximetry Oxygen Delivery Method Room Air 02/10/23 14:24 02/10/23 14:31 02/10/23 14:31 Temperature 98 F Pulse Rate 69 69 Respiratory Rate 19 Blood Pressure 120/87 120/87 Pulse Oximetry 96 99 Oxygen Delivery Method Room Air Room Air 02/10/23 14:31 02/10/23 16:00 02/10/23 18:00 Temperature 98.5 F 98.2 F Pulse Rate 66 63 57 Respiratory Rate 16 17 13 Blood Pressure 118/77 98/56 L 102/63 Pulse Oximetry 99 96 96 Oxygen Delivery Method Room Air Room Air Room Air BMI result Body Mass Index 18.6 Const General: cooperative and no acute distress Nutritional Appearance: thin Orientation/consciousness: patient oriented x3 Limitations: no limitations HENMT Other: + small superficial laceration noted to right frontal forehead. Bleeding controlled Head: Yes normal to inspection and Yes atraumatic Ears: hearing grossly normal bilaterally General nose exam: Normal external nose present Face and sinus: Yes normal facial exam Mouth: Normal oral and palatal mucosa present Throat: Yes posterior oropharynx normal, Yes tonsils normal, Yes uvula midline and No peritonsillar mass Eyes General: appearance normal, both eyes and all related structures Pupils: Equal, round and reactive pupils present EOM: EOMs intact bilaterally Neck Neck: Yes normal visual inspection and Yes no meningeal signs Resp Effort & Inspection: normal respiratory effort and no respiratory distress Auscultation: clear to auscultation bilaterally, no crackles, no rales, no rhonchi and no wheezes Cardio Rate: regular rate Heart sounds: S1 normal heart sound present and S2 normal heart sound present GI Inspection: Yes normal to inspection Palpation (GI): Soft to palpation, Tenderness to palpation present (GI) in the LLQ; with no rebound tenderness, no guarding and not rigid General: Yes no CVA tenderness Back/Spine/Pelvis Other: No midline cervical/thoracic/lumbar spinous tenderness/step-off or deformity Back: no CVA tenderness Skin Rashes: no rashes Wounds: no wounds Neuro General: patient oriented x3, gait normal, tone normal, moves all extremities, no meningeal signs, no focal motor deficits and CN's II-XI intact bilaterally Cranial nerves: Yes CN's II-XII intact bilaterally, Yes Equal, round and reactive pupils present and Yes Bilaterally intact EOM present Cognition (Neuro): normal cognition Speech: No Abnormal speech present Gait exam (Neuro): Normal gait present Motor exam (neuro): 5/5 motor strength present throughout, Pronator motor function not present and no tremor noted Coordination: [id number] test normal Romberg Test: Negative Extrem General: Yes normal to inspection Course Course Course Narrative: RME - 42 yo female with history of robotic gastric sleeve at [facility] one year ago complicated by malabsorption, adrenal insufficiency, anxiety, GERD, gastritis, esophagitis, significant weight loss and dysphagia, history of HTN, HLD, schizophrenia, ovarian cysts and anemia?who presents to the ER for evaluation of lethargy, dizziness, fatigue, nausea, vomiting, diarrhea, and blood in her urine for the last 3 days. She states today symptoms were worse and she syncopized when she stood up, fell and hit her head. Witnessed by her boyfriend who said she was unconscious for 15 minutes before she came to. She states she has a bad headache, a cut on her forehead and some pain in her left shoulder from the fall. Admits to 2 white russians yesterday although she knows she's not supposed to drink alcohol with her gastric surgery and hopes for revision with bariatrics here. Plan: labs, EKG, orthostatics, CT head -1615--no leukocytosis. H&H stable. POC 56 > patient tolerating p.o., will give an amp of D50 CT head/brain wo IV con IMPRESSION: No acute intracranial hemorrhage or mass effect. XR shoulder LT min 2V IMPRESSION: Mild degenerative changes but no acute fracture or dislocation. -1630--ED care transferred to [facility]oval pending remaining labs, UA, CT AP, and orthostatics Reevaluation(s) Reevaluation #1: Patient received in sign-out at change of shift pending CT scan of brain and abdomen pelvis both of which not show any acute findings. The patient does have moderate constipation. IV the patient's labs discussed the CT results with her. She is requesting something for her headache. Her orthostatics were positive and she is receiving another L of IV fluid. The patient is stable for discharge Time: 19:58 Medications Administered Discontinued Medications Generic Name Dose Route Start Last Admin Trade Name Freq PRN Reason Stop Dose Admin Barium Sulfate 450 ml 02/10/23 16:41 02/10/23 16:41 Barium Sulfate Oral (Vanilla) 450 Ml Oral.Susp PO 02/10/23 16:42 450 ml ONCE ONE Administration Dextrose 25 gm 02/10/23 15:11 02/10/23 15:38 Dextrose 50 % 25 Gm/50 Ml Syringe IVPUSH 02/10/23 15:12 25 gm ONCE ONE Administration Famotidine 20 mg 02/10/23 15:03 02/10/23 15:37 Famotidine/Pf 20 Mg/2 Ml Vial IVPUSH 02/10/23 15:04 20 mg ONCE ONE Administration Sodium Chloride 1,000 mls @ 999 mls/hr 02/10/23 15:15 02/10/23 19:05 Ns IV 02/10/23 16:15 Infused .Q1H1M OSBALDO Infusion Sodium Chloride 1,000 mls @ 999 mls/hr 02/10/23 18:00 02/10/23 19:06 Ns IV 02/10/23 19:00 999 mls/hr .Q1H1M OSBALDO Administration Iohexol 100 ml 02/10/23 16:40 02/10/23 16:41 Iohexol 350 Mg/Ml 100 Ml Infus..Btl IV 02/10/23 16:41 85 ml ONCE ONE Administration Ondansetron HCl 4 mg 02/10/23 15:03 02/10/23 15:38 Ondansetron Hcl 4 Mg/2 Ml Vial IVPUSH 02/10/23 15:04 4 mg ONCE ONE Administration Medical Decision Making Medical Decision Making [facility] Narrative: 42-year-old female with a past medical history sleeve gastrectomy '22, reflux and esophagitis, esophageal stricture and narrowing of the sleeve, HLD, HTN, insomnia, renal calculi, diabetes, adrenal insufficiency, significant weight loss and dysphagia, presenting to the ED complaining of left lower quadrant abdominal pain x 1 month with associated nausea, vomiting, lightheaded/dizziness, diarrhea, headache, and hematuria x 3 days. Also w/+ syncopal episode today. On exam vital signs stable, NAD, appears underweight, superficial laceration noted to forehead, abdomen soft with LLQ tenderness, no rebound or guarding, no focal neuro deficits. Concern for dehydration/metabolic abnormalities vs colitis vs diverticulitis vs UTI vs base difficult syncope. Lower suspicion for ACS/PE or appendicitis/pancreatitis/cholecystitis/lithiasis or renal stone. Plan: EKG, labs, UA, CT AP, orthostatics, IVF, re-evaluate Please refer to course for remaining clinical decision making, interpretation of labs/imaging results, and discussions with consultants and/or family members. Differential Diagnosis Differential Diagnoses: The differential diagnosis associated with the presentation includes As above Admission/Observation Consideration of admission/observation: Escalation of care including admission/observation considered Lab Data [facility] Lab Attestation statement: I reviewed the patient's lab results. 02/10/23 15:31 02/10/23 15:31 Labs: Lab Results 02/10/23 02/10/23 02/10/23 Range/Units 14:26 15:08 15:31 WBC 5.5 (4.8-10.8) X10*3/uL RBC 4.33 (4.20-5.50) X10*6/uL Hgb 12.6 (12.0-16.0) g/dl Hct 39.0 (37.0-47.0) % MCV 90.1 (80.0-98.0) fL MCH 29.1 (27.0-33.0) pg MCHC 32.3 (31.0-35.0) g/dl RDW 12.0 (11.0-16.0) % Plt Count 433 H (160-400) X10*3/uL MPV 9.8 (9.4-12.3) fL Immature Gran % (Auto) 0.4 (0.0-0.4) % Neut % (Auto) 50.0 (45-73) % Lymph % (Auto) 37.2 (20-40) % [place] % (Auto) 10.4 (2-11) % Eos % (Auto) 1.3 (0-4) % Baso % (Auto) 0.7 (0-2) % Lymph # (Auto) 2.0 (1.2-4.9) X10*3/uL [place] # (Auto) 0.6 (0.1-1.2) X10*3/uL Eos # (Auto) 0.1 (0.0-0.4) X10*3/uL Baso # (Auto) 0.0 (0.0-0.2) X10*3/uL Abs Immat Gran (auto) 0.02 (0.00-0.03) X10*3/uL Absolute Neuts (auto) 2.7 (2.0-8.3) x10*3/uL Absolute Nucleated RBC 0.000 (0.0-0.012) X10*3/uL Nucleated RBC % (auto) 0.0 (0.0-0.2) /100WBC PT (10.0-13.1) SEC INR (0.9-1.1) Sodium (135-145) mmol/L Potassium (3.3-5.1) mmol/L Chloride (96-108) mmol/L Carbon Dioxide (22-29) mmol/L Anion Gap (12-20) BUN (9-16) mg/dL Creatinine (0.5-1.4) mg/dL Estim Creat Clear Calc Estimated GFR POC Glucose 50 L* 56 L* (60-115) mg/dL Random Glucose (60-115) mg/dL Calcium (8.4-10.2) mg/dL Magnesium (1.6-2.6) mg/dL Total Bilirubin (0.0-1.0) mg/dL Direct Bilirubin (0.0-0.5) mg/dL AST (5-31) U/L ALT (0-31) U/L Alkaline Phosphatase (39-117) U/L Troponin I High Sens (<3.5-17.0) ng/L Total Protein (6.5-8.0) g/dL Albumin (3.5-5.0) g/dL Lipase (8-78) U/L Beta HCG, Quant mIU/mL Urine Color Urine Appearance Urine pH (5.0-9.0) Ur Specific [place] (1.005-1.025) Urine Protein (Neg-Trace) mg/dL Urine Glucose (UA) (Negative) mg/dL Urine Ketones (Negative) mg/dL Urine Blood (Negative) Urine Nitrite (Negative) Ur Leukocyte Esterase (Negative) Urine Opiates Screen (Not Detect) Urine Fentanyl Screen (Not Detect) Ur Barbiturates Screen (Not Detect) Ur Phencyclidine Scrn (Not Detect) Ur Amphetamines Screen (Not Detect) U Benzodiazepines Scrn (Not Detect) Urine Cocaine Screen (Not Detect) U Marijuana (THC) Screen (Not Detect) Ethyl Alcohol mg/dL 02/10/23 02/10/23 02/10/23 Range/Units 15:31 15:31 15:31 WBC (4.8-10.8) X10*3/uL RBC (4.20-5.50) X10*6/uL Hgb (12.0-16.0) g/dl Hct (37.0-47.0) % MCV (80.0-98.0) fL MCH (27.0-33.0) pg MCHC (31.0-35.0) g/dl RDW (11.0-16.0) % Plt Count (160-400) X10*3/uL MPV (9.4-12.3) fL Immature Gran % (Auto) (0.0-0.4) % Neut % (Auto) (45-73) % Lymph % (Auto) (20-40) % [place] % (Auto) (2-11) % Eos % (Auto) (0-4) % Baso % (Auto) (0-2) % Lymph # (Auto) (1.2-4.9) X10*3/uL [place] # (Auto) (0.1-1.2) X10*3/uL Eos # (Auto) (0.0-0.4) X10*3/uL Baso # (Auto) (0.0-0.2) X10*3/uL Abs Immat Gran (auto) (0.00-0.03) X10*3/uL Absolute Neuts (auto) (2.0-8.3) x10*3/uL Absolute Nucleated RBC (0.0-0.012) X10*3/uL Nucleated RBC % (auto) (0.0-0.2) /100WBC PT (10.0-13.1) SEC INR (0.9-1.1) Sodium 142 (135-145) mmol/L Potassium 4.5 (3.3-5.1) mmol/L Chloride 103 (96-108) mmol/L Carbon Dioxide 26 (22-29) mmol/L Anion Gap 18 (12-20) BUN 18 H (9-16) mg/dL Creatinine 0.67 (0.5-1.4) mg/dL Estim Creat Clear Calc 79.7 Estimated GFR > 60 POC Glucose (60-115) mg/dL Random Glucose 105 (60-115) mg/dL Calcium 9.8 (8.4-10.2) mg/dL Magnesium 2.4 (1.6-2.6) mg/dL Total Bilirubin 0.1 (0.0-1.0) mg/dL Direct Bilirubin < 0.2 (0.0-0.5) mg/dL AST 20 (5-31) U/L ALT 13 (0-31) U/L Alkaline Phosphatase 59 (39-117) U/L Troponin I High Sens (<3.5-17.0) ng/L Total Protein 7.6 (6.5-8.0) g/dL Albumin 4.4 (3.5-5.0) g/dL Lipase 19 (8-78) U/L Beta HCG, Quant < 2 mIU/mL Urine Color Urine Appearance Urine pH (5.0-9.0) Ur Specific [place] (1.005-1.025) Urine Protein (Neg-Trace) mg/dL Urine Glucose (UA) (Negative) mg/dL Urine Ketones (Negative) mg/dL Urine Blood (Negative) Urine Nitrite (Negative) Ur Leukocyte Esterase (Negative) Urine Opiates Screen (Not Detect) Urine Fentanyl Screen (Not Detect) Ur Barbiturates Screen (Not Detect) Ur Phencyclidine Scrn (Not Detect) Ur Amphetamines Screen (Not Detect) U Benzodiazepines Scrn (Not Detect) Urine Cocaine Screen (Not Detect) U Marijuana (THC) Screen (Not Detect) Ethyl Alcohol < 10 mg/dL 02/10/23 02/10/23 02/10/23 Range/Units 15:31 15:31 15:31 WBC (4.8-10.8) X10*3/uL RBC (4.20-5.50) X10*6/uL Hgb (12.0-16.0) g/dl Hct (37.0-47.0) % MCV (80.0-98.0) fL MCH (27.0-33.0) pg MCHC (31.0-35.0) g/dl RDW (11.0-16.0) % Plt Count (160-400) X10*3/uL MPV (9.4-12.3) fL Immature Gran % (Auto) (0.0-0.4) % Neut % (Auto) (45-73) % Lymph % (Auto) (20-40) % [place] % (Auto) (2-11) % Eos % (Auto) (0-4) % Baso % (Auto) (0-2) % Lymph # (Auto) (1.2-4.9) X10*3/uL [place] # (Auto) (0.1-1.2) X10*3/uL Eos # (Auto) (0.0-0.4) X10*3/uL Baso # (Auto) (0.0-0.2) X10*3/uL Abs Immat Gran (auto) (0.00-0.03) X10*3/uL Absolute Neuts (auto) (2.0-8.3) x10*3/uL Absolute Nucleated RBC (0.0-0.012) X10*3/uL Nucleated RBC % (auto) (0.0-0.2) /100WBC PT 12.1 (10.0-13.1) SEC INR 1.1 (0.9-1.1) Sodium (135-145) mmol/L Potassium (3.3-5.1) mmol/L Chloride (96-108) mmol/L Carbon Dioxide (22-29) mmol/L Anion Gap (12-20) BUN (9-16) mg/dL Creatinine (0.5-1.4) mg/dL Estim Creat Clear Calc Estimated GFR POC Glucose (60-115) mg/dL Random Glucose (60-115) mg/dL Calcium (8.4-10.2) mg/dL Magnesium Cancelled (1.6-2.6) mg/dL Total Bilirubin (0.0-1.0) mg/dL Direct Bilirubin (0.0-0.5) mg/dL AST (5-31) U/L ALT (0-31) U/L Alkaline Phosphatase (39-117) U/L Troponin I High Sens < 2.7 (<3.5-17.0) ng/L Total Protein (6.5-8.0) g/dL Albumin (3.5-5.0) g/dL Lipase Cancelled (8-78) U/L Beta HCG, Quant mIU/mL Urine Color Urine Appearance Urine pH (5.0-9.0) Ur Specific [place] (1.005-1.025) Urine Protein (Neg-Trace) mg/dL Urine Glucose (UA) (Negative) mg/dL Urine Ketones (Negative) mg/dL Urine Blood (Negative) Urine Nitrite (Negative) Ur Leukocyte Esterase (Negative) Urine Opiates Screen (Not Detect) Urine Fentanyl Screen (Not Detect) Ur Barbiturates Screen (Not Detect) Ur Phencyclidine Scrn (Not Detect) Ur Amphetamines Screen (Not Detect) U Benzodiazepines Scrn (Not Detect) Urine Cocaine Screen (Not Detect) U Marijuana (THC) Screen (Not Detect) Ethyl Alcohol mg/dL 02/10/23 02/10/23 Range/Units 18:45 18:45 WBC (4.8-10.8) X10*3/uL RBC (4.20-5.50) X10*6/uL Hgb (12.0-16.0) g/dl Hct (37.0-47.0) % MCV (80.0-98.0) fL MCH (27.0-33.0) pg MCHC (31.0-35.0) g/dl RDW (11.0-16.0) % Plt Count (160-400) X10*3/uL MPV (9.4-12.3) fL Immature Gran % (Auto) (0.0-0.4) % Neut % (Auto) (45-73) % Lymph % (Auto) (20-40) % [place] % (Auto) (2-11) % Eos % (Auto) (0-4) % Baso % (Auto) (0-2) % Lymph # (Auto) (1.2-4.9) X10*3/uL [place] # (Auto) (0.1-1.2) X10*3/uL Eos # (Auto) (0.0-0.4) X10*3/uL Baso # (Auto) (0.0-0.2) X10*3/uL Abs Immat Gran (auto) (0.00-0.03) X10*3/uL Absolute Neuts (auto) (2.0-8.3) x10*3/uL Absolute Nucleated RBC (0.0-0.012) X10*3/uL Nucleated RBC % (auto) (0.0-0.2) /100WBC PT (10.0-13.1) SEC INR (0.9-1.1) Sodium (135-145) mmol/L Potassium (3.3-5.1) mmol/L Chloride (96-108) mmol/L Carbon Dioxide (22-29) mmol/L Anion Gap (12-20) BUN (9-16) mg/dL Creatinine (0.5-1.4) mg/dL Estim Creat Clear Calc Estimated GFR POC Glucose (60-115) mg/dL Random Glucose (60-115) mg/dL Calcium (8.4-10.2) mg/dL Magnesium (1.6-2.6) mg/dL Total Bilirubin (0.0-1.0) mg/dL Direct Bilirubin (0.0-0.5) mg/dL AST (5-31) U/L ALT (0-31) U/L Alkaline Phosphatase (39-117) U/L Troponin I High Sens (<3.5-17.0) ng/L Total Protein (6.5-8.0) g/dL Albumin (3.5-5.0) g/dL Lipase (8-78) U/L Beta HCG, Quant mIU/mL Urine Color Yellow Urine Appearance Cloudy Urine pH 8.0 (5.0-9.0) Ur Specific [place] >= 1.030 H (1.005-1.025) Urine Protein Trace (Neg-Trace) mg/dL Urine Glucose (UA) 250 H (Negative) mg/dL Urine Ketones Negative (Negative) mg/dL Urine Blood Negative (Negative) Urine Nitrite Negative (Negative) Ur Leukocyte Esterase Negative (Negative) Urine Opiates Screen Not Detected (Not Detect) Urine Fentanyl Screen Not Detected (Not Detect) Ur Barbiturates Screen POSITIVE H (Not Detect) Ur Phencyclidine Scrn Not Detected (Not Detect) Ur Amphetamines Screen Not Detected (Not Detect) U Benzodiazepines Scrn Not Detected (Not Detect) Urine Cocaine Screen Not Detected (Not Detect) U Marijuana (THC) Screen Not Detected (Not Detect) Ethyl Alcohol mg/dL Independent Interpretation I performed an independent interpretation of an: EKG (My interpretation EKG is normal sinus rhythm at a rate of 77. QRS 92. QTC 393. No significant change when compared to prior. No STEMI) Radiology Impression Discussion of test interpretation with radiology: I have reviewed the radiologist's reading. External Record Review External record reviewed: Inpatient record, Office record, Outpatient record, Prior outpatient labs, Prior outpatient radiology, Primary care record and Outside ED record Tests considered The following testing was considered but not selected: As above Prescription Management I considered prescription management with: Pain Medication Chronic Conditions Patient?s care impacted by: Other (As listed above) Social Determinants Patient?s care significantly limited by Social Determinants of Health including: Alcoholism and drug addiction in family Discharge Plan Discharge Clinical Impression: Abdominal pain, Syncope, Nausea & vomiting, Constipation Patient Disposition: Home, Self-Care Instructions: Constipation (ED), Syncope (ED) Additional Instructions: The CT scan the brain did not show any abnormal findings. The CT scan of your abdomen pelvis showed some constipation. You should increase fluid intake and fiber supplements Your white blood cell and red blood cell counts were both within normal limits today Follow-up with your primary doctor Prescriptions: No Action (DME) blood pressure monitor [Blood Pressure Kit] Kit See Rx Instructions .Route Qty: 1 0RF Rx Instructions: As directed (DME) CANE See Rx Instructions .Route .MEDSUPPLY Qty: 1 0RF Rx Instructions: As directed (DME) WRIST BRACE See Rx Instructions .Route .MEDSUPPLY Qty: 1 0RF Rx Instructions: As directed (DME) BATH CHAIR See Rx Instructions .Route .MEDSUPPLY Qty: 1 0RF Rx Instructions: As directed (DME) LIFELINE ALERT SYSTEM See Rx Instructions .Route .MEDSUPPLY Qty: 1 0RF Rx Instructions: As directed (DME) ALCOHOL PADS See Rx Instructions .Route .MEDSUPPLY Qty: 100 3RF Rx Instructions: As directed (DME) ROLLATOR See Rx Instructions .Route .MEDSUPPLY Qty: 1 0RF Rx Instructions: As directed (DME) WRIST SPLINT Right and Left hand See Rx Instructions .Route .MEDSUPPLY Qty: 1 0RF Rx Instructions: As directed (DME) SHOWER WAND See Rx Instructions .Route .MEDSUPPLY Qty: 1 0RF Rx Instructions: As directed (DME) SHOWER BAR See Rx Instructions .Route .MEDSUPPLY Qty: 1 0RF Rx Instructions: As directed (DME) Bedside commode See Rx Instructions .Route .MEDSUPPLY Qty: 1 0RF Rx Instructions: As directed (DME) Bed pads See Rx Instructions .Route .MEDSUPPLY Qty: 100 12RF Rx Instructions: As directed (DME) SANITARY PADS See Rx Instructions .Route .MEDSUPPLY Qty: 100 12RF Rx Instructions: As directed simethicone 40 mg/0.6 mL drops,suspension 0.6 ml PO BID-TID PRN (Reason: abdominal distention) Qty: 15 0RF tramadol 50 mg tablet 50 mg PO Q6H PRN (Reason: pain) 30 Days Qty: 60 1RF Ensure Complete 0.1 gram-1.18 kcal/mL liquid 1 ea PO TID Qty: 1184 12RF polyethylene glycol 3350 [Miralax] 17 gram powder in packet 17 g PO DAILY Qty: 14 3RF Rx Instructions: Use daily until you have a normal bowel movement, then stop. pantoprazole [address] for susp in packet 40 mg PO BID 30 Days Qty: 60 5RF jwkslikau-ddmnkh-dplmfgjo-scop [] 16.2 mg-0.1037 mg/5 mL (5 mL) elixir 5 ml PO BID PRN (Reason: indigestion) Qty: 50 0RF ondansetron 4 mg tablet,disintegrating 4 mg PO Q8H PRN (Reason: nausea and vomiting) Qty: 10 0RF acetaminophen 500 mg/15 mL liquid 1,000 mg PO Q6H PRN (Reason: pain) Qty: 1000 0RF azithromycin [Zithromax Z-Jorge] 250 mg tablet See Rx Instructions .ROUTE .COMPLEX Qty: 6 0RF Rx Instructions: For 250 mg dose pack: take 500 mg today (day 1), then 250 mg for 4 days (days 2-5) prednisone 20 mg tablet 20 mg PO BID Qty: 10 0RF albuterol sulfate 90 mcg/actuation HFA aerosol inhaler 1 inh inhalation QID PRN (Reason: shortness of breath or wheezing) Qty: 8.5 0RF sucralfate [Carafate] 100 mg/mL suspension 5 ml PO QID Qty: 1000 0RF Rx Instructions: swish in mouth and swallow; use after food/drink alum-mag hydroxide-simeth [Maalox Advanced] 200-200-20 mg/5 mL suspension 5 ml PO 5XD PRN (Reason: indigestion) Qty: 355 0RF Rx Instructions: administer between meals and at bedtime fluticasone propionate [Flonase Allergy Relief] 50 mcg/actuation spray,suspension 1 spray intranasal DAILY Qty: 100 0RF Rx Instructions: administer into each nostril (DME) blood-glucose meter [OneTouch Verio Meter] Misc See Rx Instructions .Route Rx Instructions: As directed (DME) OneTouch Verio test strips Strip See Rx Instructions .Route Rx Instructions: As directed 3 times a day (DME) lancets [OneTouch Delica Lancets] 33 gauge misc See Rx Instructions .Route Rx Instructions: As directed 3 times a day zolpidem 10 mg tablet 10 mg PO BEDTIME PRN triamcinolone acetonide 0.1 % cream topical omeprazole 40 mg capsule,delayed release(DR/EC) 40 mg PO DAILY
--- NOTE | 2023-02-10 11:36 | ECG_ITS ---
Test Reason : SYNCOPE Blood Pressure : / mmHG Vent. Rate : 077 BPM Atrial Rate : 077 BPM P-R Int : 142 ms QRS Dur : 092 ms QT Int : 348 ms P-R-T Axes : 074 081 051 degrees QTc Int : 393 ms Normal sinus rhythm Possible Left atrial enlargement Borderline ECG When compared with ECG of 04-FEB-2023 11:41, No significant change was found Referred By: Yuni Mcdonald Electronically Signed By:DINA ESQUIVEL MD
[2023-02-10 14:32] LABS: Glucose, Whole Blood 50 mg/dL (60-115)
[2023-02-10 15:13] LABS: Glucose, Whole Blood 56 mg/dL (60-115)
[2023-02-10 15:36] LABS: MANUAL DIFF FLAG NO
--- NOTE | 2023-02-10 15:36 | MHC.EDTECH ---
Brought patient pudding and pitcher of ice water.
[2023-02-10] MEDS: Famotidine/PF 20 MG/2 ML VIAL IVPUSH (15:37)
[2023-02-10] MEDS: 0.9 % Sodium Chloride 1,000 ML 999 ML IV ×2 (15:38→19:06)
[2023-02-10] MEDS: ondansetron HCL 4 MG/2 ML VIAL IVPUSH (15:38)
[2023-02-10] MEDS: Dextrose 50 % 25 GM/50 ML SYRINGE IVPUSH (15:38)
[2023-02-10 15:39] LABS: Basophils Percent Auto 0.7 % (0-2); Eosinophils Absolute Auto 0.1 X10*3/uL (0.0-0.4); Eosinophils Percent Auto 1.3 % (0-4); Hemoglobin 12.6 g/dl (12.0-16.0); Imm Gran Abs Auto 0.02 X10*3/uL (0.00-0.03); Imm Gran Pct Auto 0.4 % (0.0-0.4); Lymphocytes Percent Auto 37.2 % (20-40); Mean Corpuscular HGB Conc 32.3 g/dl (31.0-35.0); Mean Corpuscular Hemoglobin 29.1 pg (27.0-33.0); Mean Corpuscular Volume 90.1 fL (80.0-98.0); Mean Platelet Volume 9.8 fL (9.4-12.3); Monocytes Absolute Auto 0.6 X10*3/uL (0.1-1.2); Monocytes Percent Auto 10.4 % (2-11); Neutrophils Absolute Auto 2.7 x10*3/uL (2.0-8.3); Platelet Count 433 X10*3/uL (160-400); Red Blood Count 4.33 X10*6/uL (4.20-5.50); White Blood Count 5.5 X10*3/uL (4.8-10.8)
[2023-02-10 15:50] LABS: INTERNATIONAL NORM RATIO 1.1 (0.9-1.1); Prothrombin Time 12.1 SEC (10.0-13.1)
[2023-02-10 16:06] LABS: Alanine Aminotransferase 13 U/L (0-31); Albumin Level 4.4 g/dL (3.5-5.0); Alkaline Phosphatase 59 U/L (39-117); Anion Gap 18 (12-20); Aspartate Amino Transferase 20 U/L (5-31); Bilirubin Direct < 0.2 mg/dL (0.0-0.5); Bilirubin Total 0.1 mg/dL (0.0-1.0); Blood Urea Nitrogen 18 mg/dL (9-16); Calcium 9.8 mg/dL (8.4-10.2); Carbon Dioxide 26 mmol/L (22-29); Chloride 103 mmol/L (96-108); Creatinine Clr Calc Pharmacy 79.7; Estimated Glomerular Filt Rate > 60; Ethanol < 10 mg/dL; Glucose Random 105 mg/dL (60-115); Lipase 19 U/L (8-78); Magnesium 2.4 mg/dL (1.6-2.6); Potassium 4.5 mmol/L (3.3-5.1); Sodium 142 mmol/L (135-145); Total Protein 7.6 g/dL (6.5-8.0)
[2023-02-10 16:17] LABS: HCG Quantitative < 2 mIU/mL; Troponin-I High Sensitivity < 2.7 ng/L (<3.5-17.0)
[2023-02-10] MEDS: Barium Sulfate Oral (Vanilla) 450 ML ORAL.SUSP PO (16:41)
[2023-02-10] MEDS: iohexoL 350 MG/ML 100 ML INFUS..BTL IV (16:41)
--- NOTE | 2023-02-10 17:00 | PC.NURSE ---
pt axox4, VSS, POC 56; corrected with dextrose 119 on recheck, NSR on monitor 60 bpm, o2 sats 100% RA, neuros intact. pt reports syncope episode today at home witnessed by boyfriend; headstrike, abrasion to forehead. pt denies v/d, reports nausea. iv established, labs drawn. pt medicated per SEP.
[2023-02-10 19:00] LABS: Appearance Urine Cloudy; Color Urine Yellow; Glucose Urine UA 250 mg/dL (Negative); Leukocyte Esterase Urine Negative (Negative); Nitrite Urine Negative (Negative); Specific Gravity - Urine >= 1.030 (1.005-1.025); Urine Blood Negative (Negative); Urine Ketones Negative (Negative); Urine Protein Trace mg/dL (Neg-Trace)
[2023-02-10 19:13] LABS: Amphetamine Screen Urine Not Detected (Not Detect); Barbiturates, Urine POSITIVE (Not Detect); Benzodiazepines Screen Urine Not Detected (Not Detect); Cannabinoid Screen Urine Not Detected (Not Detect); Cocaine Screen Urine Not Detected (Not Detect); Fentanyl, urine Not Detected (Not Detect); Opiate Screen Urine Not Detected (Not Detect); Phencyclidine Screen Urine Not Detected (Not Detect)
--- NOTE | 2023-02-10 19:16 | MHC.EDTECH ---
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
[2023-02-10] MEDS: Ketorolac Tromethamine 15 MG/ML VIAL IVPUSH (21:36)
[2023-02-10 23:42] LABS: Glucose, Whole Blood 119 mg/dL (60-115)
== END 2023-02-10 21:51 | disposition home or self-care (01) ==
PROVIDERS: Physician Assistant; Emergency Provider Student in an Organized Health Care Education/Training Program; PCP Internal Medicine
DX: R55 Syncope and collapse (principal); R11.2 Nausea with vomiting, unspecified; K59.00 Constipation, unspecified; R10.32 Left lower quadrant pain; E11.9 Type 2 diabetes mellitus without complications; I10 Essential (primary) hypertension; E78.5 Hyperlipidemia, unspecified; Z98.84 Bariatric surgery status; Z79.899 Other long term (current) drug therapy
CPT/HCPCS: 36415; 70450; 73030; 74177; 80048; 80076; 80307; 81003; 82947; 83690; 83735; 84484; 84702; 85025; 85610; 93005; 96361; 96374; 96375; 99284; 99285; J1885; J2405; Q9967

== ENCOUNTER → 2023-02-10 11:36 | Outpatient (BNV) | payer OTHER, SELFPAY | PROVIDERS: Emergency Provider Student in an Organized Health Care Education/Training Program; PCP Internal Medicine; Visit Provider Internal Medicine Cardiovascular Disease | DX: R55 Syncope and collapse (principal) | CPT/HCPCS: 93010 ==

== ENCOUNTER 2023-02-19 11:12 | Outpatient (AMB) | payer OTHER, SELFPAY ==
[2023-02-19 11:24] VITALS: BP 100/60; BMI 18.7
--- NOTE | 2023-02-19 11:24 | MHC.OFFVIS ---
Intake Vital Signs 02/19/23 11:24 Height 5 ft 2 in Weight 102 lb BMI 18.7 BP 100/60 Intake Visit Reasons: US Follow up Allergies tomato [TOMATO] Allergy (Mild, Verified 02/10/23 11:25) HIVES DIFFICULTY BREATHING hydrocodone [HYDROCODONE] Allergy (Unknown, Verified 02/10/23 11:25) RASH, AIRWAY CLOSES ibuprofen [From MOTRIN] Allergy (Unknown, Verified 02/10/23 11:25) STOMACH UPSET, vomiting trazodone [TRAZODONE] Allergy (Unknown, Verified 02/10/23 11:25) UNKNOWN, stomach upset black pepper [BLACK PEPPER] Adverse Reaction (Severe, Verified 02/10/23 11:) DIFFICULTY BREATHING, hives lisinopril Adverse Reaction (Severe, Verified 02/10/23 11:) Anaphylaxis HPI HPI Comments History of Present Illness Details Presenting for follow up US re: previously seen complex ov cyst/ US done in 02/18 showed the following: Status post hysterectomy. Both ovaries are of normal size and echogenicity. The right measures 2.6 x 1.7 x 2.1 cm for a volume of 4.7 mL. The left measures 2.5 x 1.5 x 1.8 cm for a volume of 3.6 mL. Physiologic follicles are present almost certainly benign for which no follow-up imaging is recommended. No suspicious cyst or adnexal mass. There is no pelvic free fluid. 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 Diverticulosis GERD (gastroesophageal reflux disease) History of bipolar disorder History of schizophrenia Hypercholesterolemia Hypertension Insomnia Numbness of left hand Renal calculi Spondylosis of lumbar spine Type 2 diabetes mellitus with hyperglycemia Vitamin D deficiency Surgical History H/O: hysterectomy History of esophagogastroduodenoscopy (EGD) History of tubal ligation Hx of bariatric surgery Hx of colonoscopy Family History Father Medical history unknown Mother Medical history unknown Paternal Aunt Uterine cancer Diabetes Hypertension Paternal Uncle Liver cancer Heart attack Maternal Aunt Stroke Family/Other Chronic mental illness Sister Uterine cancer Schizophrenia Brother Substance abuse Other Mental health disorder Social History Household Members: None Housing: Apartment Do you presently have visiting nurse or other home services: Yes Alcohol intake: current Alcohol intake frequency: holidays/special occasions only Alcohol type: hard liquor Patient Tobacco Use Status: Never used Tobacco e-Cigarette/Vaping Use: Never Used Second Hand Smoke Exposure: No service: No Current occupational status: disabled Current occupational exposures/hazards: No Cognitive needs: No Hearing needs: No Vision needs: No Female Reproductive History Menstrual Age of Menarche: 11 Review of Systems Const All systems reviewed & are unremarkable except as noted in HPI and below Reports as per HPI and Reports no additional complaints GI Reports no additional complaints Reports no additional complaints Physical Exam Vital Signs: Last Vital Signs BP 100/60 02/19/23 11:24 BMI result Body Mass Index 18.7 Assessment & Plan Assessment & Plan (1) Complex ovarian cyst: Code(s): N83.299 - Other ovarian cyst, unspecified side Plan: dw pt the findings on recent pelvic US showing that the complex ov cyst resolved, the patient was reassured. All questions answered the patient verbalized understanding Coding Level of Care Code Est Pt Level 3 (98561) Diagnoses Complex ovarian cyst N83.299
== END 2023-02-19 11:39 | disposition home or self-care (01) ==
LOC: HO.HWS 11:12
PROVIDERS: PCP Internal Medicine; Visit Provider Obstetrics & Gynecology
DX: N83.299 Other ovarian cyst, unspecified side (principal)
CPT/HCPCS: 99213

== ENCOUNTER → 2023-02-19 11:12 | Outpatient (BNVA) | payer OTHER, SELFPAY | PROVIDERS: PCP Internal Medicine; Visit Provider Obstetrics & Gynecology | DX: N83.299 Other ovarian cyst, unspecified side (principal) | CPT/HCPCS: 99212 ==

== ENCOUNTER 2023-02-23 03:34 | Emergency (ER) | payer OTHER, SELFPAY ==
[2023-02-23 03:43] VITALS: BP 120/57; PULSE 76; RESP 16; TEMP 36.1; O2SAT 100
--- NOTE | 2023-02-23 05:12 | ED_ITS ---
HPI - General Adult General Chief complaint: General Medical Stated complaint: Left arm pain, numbness, headache, multiple compla Time Seen by Provider: 02/23/23 04:48 Source: patient Mode of arrival: ambulatory Limitations: no limitations History of Present Illness HPI narrative: 42 year old female with past medical history significant for sleeve gastrectomy in 2021, reflux esophagitis, esophageal stricture, patient was seen in the emergency department multiple times for her symptoms, patient is having an appo intment with GI for upper endoscopy next week. Came in today for her similar symptoms of epigastric pain feels acid reflux in the epigastric area, patient also been complaining of left arm pain starting in the left side of the neck radiates down to the left arm with numbness in the left arm. No swelling, no redness. Related Data Home Medications Medication Instructions Recorded Confirmed blood sugar diagnostic ([facility] 08/15/22 02/01/23 Verio test strips) blood-glucose meter ([facility] 08/15/22 02/01/23 Verio Meter) lancets 33 gauge ([employer] 08/15/22 02/01/23 Lancets) omeprazole 40 mg capsule,delayed 40 mg PO DAILY 02/07/23 release triamcinolone acetonide 0.1 % appl topical 02/07/23 topical cream zolpidem 10 mg tablet 10 mg PO BEDTIME PRN 02/07/23 Previous Rx's Medication Instructions Recorded blood pressure monitor (Blood #1 10/31/21 Pressure Kit) BATH CHAIR #1 ea 01/31/22 CANE #1 01/31/22 LIFELINE ALERT SYSTEM #1 ea 01/31/22 WRIST BRACE #1 ea 01/31/22 ALCOHOL PADS #100 ea 02/21/22 ROLLATOR #1 05/23/22 WRIST SPLINT Right and Left hand #1 ea 05/30/22 SHOWER BAR #1 ea 06/08/22 SHOWER WAND #1 ea 06/08/22 Bed pads #100 ea 07/17/22 Bedside commode #1 ea 07/17/22 SANITARY PADS #100 07/17/22 fluticasone propionate 50 1 spray intranasal DAILY #100 mL 07/27/22 mcg/actuation nasal spray,suspension (Flonase Allergy Relief) simethicone 40 mg/0.6 mL oral 0.6 ml PO BID-TID PRN abdominal 11/08/22 drops,suspension distention #15 mL tramadol 50 mg tablet 50 mg PO Q6H PRN pain 30 days #60 01/22/23 tabs acetaminophen 500 mg/15 mL oral 1,000 mg (30 mL) PO Q6H PRN pain 01/25/23 liquid #1,000 mL ondansetron 4 mg disintegrating 4 mg PO Q8H PRN nausea and 01/25/23 tablet vomiting #10 tabs akylhwqrn-zgldaqoxi-mgniznym-scop 5 ml PO BID PRN indigestion #50 mL 01/25/23 16.2 mg-0.1037 mg/5 mL (5 mL) elixir () food supplemt, lactose-reduced 0.1 1 ea PO TID #1,184 mL 01/29/23 gram-1.18 kcal/ mL oral liquid (Ensure Complete) polyethylene glycol 3350 17 gram 17 g PO DAILY #14 ea 01/31/23 oral powder packet (Miralax) albuterol sulfate 90 mcg/actuation 1 inh inhalation QID PRN shortness 02/04/23 aerosol inhaler of breath or wheezing #8.5 grams azithromycin 250 mg tablet See Rx Instructions PO .COMPLEX #6 02/04/23 (Zithromax Z-Jorge) tabs prednisone 20 mg tablet 20 mg PO BID #10 tabs 02/04/23 aluminum-mag hydroxide-simethicone 5 ml PO 5XD PRN indigestion #355 mL 02/05/23 200 mg-200 mg-20 mg/5 mL oral susp (Maalox Advanced) sucralfate 100 mg/mL oral 5 ml PO QID #1,000 mL 02/05/23 suspension (Carafate) pantoprazole 40 mg granules 40 mg PO BID 30 days #60 packets 02/09/23 delayed-release for susp in packet Allergies Allergy/AdvReac Type Severity Reaction Status Date / Time tomato [TOMATO] Allergy Mild HIVES Verified 02/23/23 03:43 DIFFICULTY BREATHING hydrocodone [HYDROCODONE] Allergy Unknown RASH, Verified 02/23/23 03:43 AIRWAY CLOSES ibuprofen [From MOTRIN] Allergy Unknown STOMACH Verified 02/23/23 03:43 UPSET, vomiting trazodone [TRAZODONE] Allergy Unknown UNKNOWN, Verified 02/23/23 03:43 stomach upset black pepper [BLACK PEPPER] AdvReac Severe DIFFICULTY Verified 02/23/23 03:43 BREATHING, hives lisinopril AdvReac Severe Anaphylaxis Verified 02/23/23 03:43 Review of Systems Review of Systems: All other systems are reviewed and are negative Constitutional: Reports as per HPI and Reports no additional constitutional complaints Eyes: Reports as per HPI and Reports no additional eye complaints Reports system reviewed and no additional complaints, except as documented Cardiovascular: Reports as per HPI and Reports no additional cardiovascular complaints Respiratory: Reports as per HPI and Reports no additional respiratory complaints Gastrointestinal: Reports as per HPI and Reports no additional gastrointestinal complaints Genitourinary: Reports no additional female genitourinary complaints Musculoskeletal: Reports no additional musculoskeletal complaints Skin/Breast: Reports system reviewed and no additional complaints, except as docu Psychiatric: Reports no additional psychiatric complaints Endocrine: Reports no additional endocrine complaints Hematologic/Lymphatic: Reports no additional hematologic/lymphatic complaints Allergic/Immunologic: Reports no additional allergic/immunologic complaints Reports system reviewed and no additional complaints, except as documented and Reports Abnormal speech present [facility], [facility] Past Medical History 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 Diverticulosis GERD (gastroesophageal reflux disease) History of bipolar disorder History of schizophrenia Hypercholesterolemia Hypertension Insomnia Numbness of left hand Renal calculi Spondylosis of lumbar spine Type 2 diabetes mellitus with hyperglycemia Vitamin D deficiency Surgical History H/O: hysterectomy History of esophagogastroduodenoscopy (EGD) History of tubal ligation Hx of bariatric surgery Hx of colonoscopy Family History Family History Father Medical history unknown Mother Medical history unknown Paternal Aunt Uterine cancer Diabetes Hypertension Paternal Uncle Liver cancer Heart attack Maternal Aunt Stroke Family/Other Chronic mental illness Sister Uterine cancer Schizophrenia Brother Substance abuse Other Mental health disorder Social History Social History Household Members: None Housing: Apartment Do you presently have visiting nurse or other home services: Yes Alcohol intake: current Alcohol intake frequency: holidays/special occasions only Alcohol type: hard liquor Patient Tobacco Use Status: Never used Tobacco e-Cigarette/Vaping Use: Never Used Second Hand Smoke Exposure: No Advance Directives: No Advance Directives Information Provided: Yes service: No Current occupational status: disabled Current occupational exposures/hazards: No Cognitive needs: No Hearing needs: No Vision needs: No Physical Exam ED Vital Signs: Vital Signs - 24 hr 02/23/23 03:43 Temperature 97 F Pulse Rate 76 Respiratory Rate 16 Blood Pressure 120/57 L Pulse Oximetry 100 Oxygen Delivery Method Room Air BMI result Body Mass Index 20.0 Vital signs have been reviewed as appeared to be correct. Blood pressure normal. Heart rate normal. Respiration rate normal. Temperature normal. Oxygen saturation normal. Appearance: Alert. Oriented X3. No acute distress. Head: Normal external exam. Normocephalic. Atraumatic. No Hua signs noted. No raccoon eyes noted Eyes: PERRLA. EOMI. Conjunctiva and sclera normal. Eyelids normal. ENT: TM's Normal. Pharynx normal. Uvula midline. Moist mucous membranes. No trismus noted. No drooling noted. No muffled voice noted. Neck: Normal inspection. Neck supple. FROM. No adenopathy. Thyroid Normal. No meningeal signs. No neck mass noted. CVS: Normal heart rate and rhythm. Heart sound normal. No murmurs noted. Pulses normal throughout. Respiratory: No respiratory distress. Painless inspiration. Breath sounds normal. No wheezes/rales/rhonchi noted. Chest nontender. No accessory muscle usage noted or decreased air movement noted. Abdomen: Soft and nontender. Bowel sounds normal in all 4 quadrants. No distention noted. No organomegaly noted. No visible injury noted. Back: No CVA tenderness. Full range of motion noted. Skin: Skin warm and dry. Normal skin color. Normal skin turgor. No rashes/lesions/lacerations noted. Extremities: Left upper extremity: Neurovascularly intact, no abnormality appreciated on the exam of the left upper extremity. Neuro: Oriented X 3. Cranial nerve exam: II-XII are grossly intact No motor deficit. No sensory deficit. Reflexes normal. Course Course Course Narrative: 42-year-old female s/p osphegeal stricture and acid reflux patient is scheduled for upper endoscopy next week. Patient now feels better able to tolerate p.o. intake. D-dimer is unremarkable making diagnose of DVT of the left upper extremity is not likely. Medications Administered Discontinued Medications Generic Name Dose Route Start Last Admin Trade Name Fabiola PRN Reason Stop Dose Admin Al Hydroxide/Mg Hydroxide 30 ml 02/23/23 05:10 02/23/23 05:37 Magnesium Hydrox/Alum Hydrox 30 Ml Oral.Susp PO 02/23/23 05:11 30 ml ONCE ONE Administration Famotidine 20 mg 02/23/23 05:10 02/23/23 05:37 Famotidine/Pf 20 Mg/2 Ml Vial IVPUSH 02/23/23 05:11 20 mg ONCE ONE Administration Sodium Chloride 1,000 mls @ 999 mls/hr 02/23/23 05:10 02/23/23 05:39 Ns IV 02/23/23 06:10 999 mls/hr .Q1H1M ONE Administration Medical Decision Making Differential Diagnosis Differential Diagnoses: The differential diagnosis associated with the presentation includes (Gastritis, DVT, dehydration, electrolyte abnormality, severe anemia.) Admission/Observation Consideration of admission/observation: Escalation of care including admis becca/observation considered Lab Data [facility] Lab Attestation statement: I reviewed the patient's lab results. 02/23/23 05:34 02/23/23 05:34 Labs: Lab Results 02/23/23 02/23/23 02/23/23 Range/Units 05:34 05:34 05:34 WBC 4.9 (4.8-10.8) X10*3/uL RBC 3.28 L D (4.20-5.50) X10*6/uL Hgb 9.4 L D (12.0-16.0) g/dl Hct 29.2 L D (37.0-47.0) % MCV 89.0 (80.0-98.0) fL MCH 28.7 (27.0-33.0) pg MCHC 32.2 (31.0-35.0) g/dl RDW 13.2 (11.0-16.0) % Plt Count 310 D (160-400) X10*3/uL MPV 9.9 (9.4-12.3) fL Immature Gran % (Auto) 0.0 (0.0-0.4) % Neut % (Auto) 51.9 (45-73) % Lymph % (Auto) 37.4 (20-40) % [place] % (Auto) 7.4 (2-11) % Eos % (Auto) 2.5 (0-4) % Baso % (Auto) 0.8 (0-2) % Lymph # (Auto) 1.8 (1.2-4.9) X10*3/uL [place] # (Auto) 0.4 (0.1-1.2) X10*3/uL Eos # (Auto) 0.1 (0.0-0.4) X10*3/uL Baso # (Auto) 0.0 (0.0-0.2) X10*3/uL Abs Immat Gran (auto) 0.00 (0.00-0.03) X10*3/uL Absolute Neuts (auto) 2.5 (2.0-8.3) x10*3/uL Absolute Nucleated RBC 0.000 (0.0-0.012) X10*3/uL Nucleated RBC % (auto) 0.0 (0.0-0.2) /100WBC D-Dimer High Sensitivty < 150 NG/ML Sodium 139 (135-145) mmol/L Potassium 4.4 (3.3-5.1) mmol/L Chloride 105 (96-108) mmol/L Carbon Dioxide 24 (22-29) mmol/L Anion Gap 14 (12-20) BUN 13 (9-16) mg/dL Creatinine 0.61 (0.5-1.4) mg/dL Estim Creat Clear Calc 94.0 Estimated GFR > 60 Random Glucose 83 (60-115) mg/dL Calcium 8.5 D (8.4-10.2) mg/dL Total Bilirubin 0.3 (0.0-1.0) mg/dL Direct Bilirubin 0.1 (0.0-0.5) mg/dL AST 13 (5-31) U/L ALT 12 (0-31) U/L Alkaline Phosphatase 43 (39-117) U/L Total Protein 6.0 L (6.5-8.0) g/dL Albumin 3.6 (3.5-5.0) g/dL Lipase 18 (8-78) U/L Discharge Plan Discharge Clinical Impression: GERD (gastroesophageal reflux disease) Patient Disposition: Home, Self-Care Instructions: Gastroesophageal Reflux Disease (ED) Prescriptions: No Action (DME) blood pressure monitor [Blood Pressure Kit] Kit See Rx Instructions .Route Qty: 1 0RF Rx Instructions: As directed (DME) CANE See Rx Instructions .Route .MEDSUPPLY Qty: 1 0RF Rx Instructions: As directed (DME) WRIST BRACE See Rx Instructions .Route .MEDSUPPLY Qty: 1 0RF Rx Instructions: As directed (DME) BATH CHAIR See Rx Instructions .Route .MEDSUPPLY Qty: 1 0RF Rx Instructions: As directed (DME) LIFELINE ALERT SYSTEM See Rx Instructions .Route .MEDSUPPLY Qty: 1 0RF Rx Instructions: As directed (DME) ALCOHOL PADS See Rx Instructions .Route .MEDSUPPLY Qty: 100 3RF Rx Instructions: As directed (DME) ROLLATOR See Rx Instructions .Route .MEDSUPPLY Qty: 1 0RF Rx Instructions: As directed (DME) WRIST SPLINT Right and Left hand See Rx Instructions .Route .MEDSUPPLY Qty: 1 0RF Rx Instructions: As directed (DME) SHOWER WAND See Rx Instructions .Route .MEDSUPPLY Qty: 1 0RF Rx Instructions: As directed (DME) SHOWER BAR See Rx Instructions .Route .MEDSUPPLY Qty: 1 0RF Rx Instructions: As directed (DME) Bedside commode See Rx Instructions .Route .MEDSUPPLY Qty: 1 0RF Rx Instructions: As directed (DME) Bed pads See Rx Instructions .Route .MEDSUPPLY Qty: 100 12RF Rx Instructions: As directed (DME) SANITARY PADS See Rx Instructions .Route .MEDSUPPLY Qty: 100 12RF Rx Instructions: As directed simethicone 40 mg/0.6 mL drops,suspension 0.6 ml PO BID-TID PRN (Reason: abdominal distention) Qty: 15 0RF tramadol 50 mg tablet 50 mg PO Q6H PRN (Reason: pain) 30 Days Qty: 60 1RF Ensure Complete 0.1 gram-1.18 kcal/mL liquid 1 ea PO TID Qty: 1184 12RF polyethylene glycol 3350 [Miralax] 17 gram powder in packet 17 g PO DAILY Qty: 14 3RF Rx Instructions: Use daily until you have a normal bowel movement, then stop. pantoprazole [address] for susp in packet 40 mg PO BID 30 Days Qty: 60 5RF yjwihckxq-ljazxe-oabsdkez-scop [] 16.2 mg-0.1037 mg/5 mL (5 mL) elixir 5 ml PO BID PRN (Reason: indigestion) Qty: 50 0RF ondansetron 4 mg tablet,disintegrating 4 mg PO Q8H PRN (Reason: nausea and vomiting) Qty: 10 0RF acetaminophen 500 mg/15 mL liquid 1,000 mg PO Q6H PRN (Reason: pain) Qty: 1000 0RF azithromycin [Zithromax Z-Jorge] 250 mg tablet See Rx Instructions .ROUTE .COMPLEX Qty: 6 0RF Rx Instructions: For 250 mg dose pack: take 500 mg today (day 1), then 250 mg for 4 days (days 2-5) prednisone 20 mg tablet 20 mg PO BID Qty: 10 0RF albuterol sulfate 90 mcg/actuation HFA aerosol inhaler 1 inh inhalation QID PRN (Reason: shortness of breath or wheezing) Qty: 8.5 0RF sucralfate [Carafate] 100 mg/mL suspension 5 ml PO QID Qty: 1000 0RF Rx Instructions: swish in mouth and swallow; use after food/drink alum-mag hydroxide-simeth [Maalox Advanced] 200-200-20 mg/5 mL suspension 5 ml PO 5XD PRN (Reason: indigestion) Qty: 355 0RF Rx Instructions: administer between meals and at bedtime fluticasone propionate [Flonase Allergy Relief] 50 mcg/actuation spray,suspension 1 spray intranasal DAILY Qty: 100 0RF Rx Instructions: administer into each nostril (DME) blood-glucose meter [OneTouch Verio Meter] Misc See Rx Instructions .Route Rx Instructions: As directed (DME) OneTouch Verio test strips Strip See Rx Instructions .Route Rx Instructions: As directed 3 times a day (DME) lancets [[employer] Lancets] 33 gauge misc See Rx Instructions .Route Rx Instructions: As directed 3 times a day zolpidem 10 mg tablet 10 mg PO BEDTIME PRN triamcinolone acetonide 0.1 % cream topical omeprazole 40 mg capsule,delayed release(DR/EC) 40 mg PO DAILY
[2023-02-23] MEDS: Magnesium Hydrox/Alum Hydrox 30 ML ORAL.SUSP PO (05:37)
[2023-02-23] MEDS: Famotidine/PF 20 MG/2 ML VIAL IVPUSH (05:37)
[2023-02-23] MEDS: 0.9 % Sodium Chloride 1,000 ML 999 ML IV (05:39)
[2023-02-23 05:44] LABS: MANUAL DIFF FLAG NO
[2023-02-23 05:45] LABS: Basophils Percent Auto 0.8 % (0-2); Eosinophils Absolute Auto 0.1 X10*3/uL (0.0-0.4); Eosinophils Percent Auto 2.5 % (0-4); Hematocrit 29.2 % (37.0-47.0); Hemoglobin 9.4 g/dl (12.0-16.0); Lymphocytes Absolute Auto 1.8 X10*3/uL (1.2-4.9); Lymphocytes Percent Auto 37.4 % (20-40); Mean Corpuscular HGB Conc 32.2 g/dl (31.0-35.0); Mean Corpuscular Hemoglobin 28.7 pg (27.0-33.0); Mean Platelet Volume 9.9 fL (9.4-12.3); Monocytes Absolute Auto 0.4 X10*3/uL (0.1-1.2); Monocytes Percent Auto 7.4 % (2-11); Neutrophils Absolute Auto 2.5 x10*3/uL (2.0-8.3); Neutrophils Percent Auto 51.9 % (45-73); Platelet Count 310 X10*3/uL (160-400); Red Blood Count 3.28 X10*6/uL (4.20-5.50); Red Cell Distribution Width 13.2 % (11.0-16.0); White Blood Count 4.9 X10*3/uL (4.8-10.8)
[2023-02-23 05:59] LABS: Alanine Aminotransferase 12 U/L (0-31); Albumin Level 3.6 g/dL (3.5-5.0); Alkaline Phosphatase 43 U/L (39-117); Anion Gap 14 (12-20); Aspartate Amino Transferase 13 U/L (5-31); Bilirubin Direct 0.1 mg/dL (0.0-0.5); Bilirubin Total 0.3 mg/dL (0.0-1.0); Blood Urea Nitrogen 13 mg/dL (9-16); Calcium 8.5 mg/dL (8.4-10.2); Carbon Dioxide 24 mmol/L (22-29); Chloride 105 mmol/L (96-108); D Dimer High Sensitivity < 150 NG/ML; Estimated Glomerular Filt Rate > 60; Glucose Random 83 mg/dL (60-115); Lipase 18 U/L (8-78); Potassium 4.4 mmol/L (3.3-5.1); Sodium 139 mmol/L (135-145)
== END 2023-02-23 06:48 | disposition home or self-care (01) ==
PROVIDERS: Emergency Provider Emergency Medicine; PCP Internal Medicine
DX: K21.9 Gastro-esophageal reflux disease without esophagitis (principal); M79.602 Pain in left arm; R20.0 Anesthesia of skin; R10.13 Epigastric pain; Z79.899 Other long term (current) drug therapy
CPT/HCPCS: 36415; 80048; 80076; 83690; 85025; 85379; 96361; 96374; 99284

== ENCOUNTER 2023-03-03 15:56 | Emergency (ER) | payer OTHER, SELFPAY ==
--- NOTE | ~2023-03-03 | CT_ITS ---
EXAMINATION: CT ABDOMEN AND PELVIS WITH CONTRAST CLINICAL INFORMATION: Abdominal pain status post gastric sleeve procedure COMPARISON: 02/10/2023 TECHNIQUE: Multidetector volumetric images were obtained from the superior aspect of the liver through the pubic symphysis following administration 85 mL of Omnipaque 350 intravenous contrast. Sagittal and coronal reformatted images were obtained on the technologist's workstation. Oral contrast: No This CT examination was performed using dose optimization techniques as appropriate, variously including the following: *Automated exposure control *Adjustment of mA and/or kV according to patient size (this includes techniques or standardized protocols for targeted exams where dose is matched to indication/reason for exam; i.e. extremities or head) *Use of iterative reconstruction technique DLP: 356 mGy-cm FINDINGS: LUNG BASES: The visualized lung bases are unremarkable. LIVER, GALLBLADDER, AND BILIARY TREE: Stable tiny hepatic cysts. No new findings. No biliary ductal dilatation. The gallbladder is unremarkable with no evidence of radiopaque gallstones, gallbladder wall thickening, or obvious pericholecystic inflammatory changes. PANCREAS: Unremarkable. SPLEEN: Unremarkable. ADRENAL GLANDS: Unremarkable. KIDNEYS AND URETERS: The kidneys are normal in size, shape, and attenuation. No hydronephrosis, hydroureter, or calculi seen. No perinephric stranding. BLADDER: Unremarkable. GASTROINTESTINAL TRACT: Moderate stool burden again noted without evidence for obstruction. No acute inflammatory changes. Postsurgical changes appears once again satisfactory. No fluid collection. Mesenteric vessels are patent. No obstruction. ABDOMINAL WALL: No significant hernia is appreciated. LYMPH NODES: Normal. VASCULAR: Unremarkable. PELVIC VISCERA: Pelvic organs appeared surgically absent. OSSEOUS STRUCTURES: Unremarkable. CT/CT abdomen pelvis w IV con IMPRESSION: Postsurgical changes once again noted. No acute inflammatory changes. No obstruction. Fleischner guidelines were followed.
[2023-03-03 16:09] VITALS: BP 119/80; PULSE 73; RESP 18; TEMP 36.2; O2SAT 98; BMI 20.9
--- NOTE | 2023-03-03 16:10 | ED_ITS ---
HPI - Abdominal Pain General Chief Complaint: Dizziness Stated Complaint: headache,vomiting diarrhea Time Seen by Provider: 03/03/23 16:44 Source: patient Mode of arrival: ambulatory Limitations: no limitations History of Present Illness HPI narrative: 42yoF with a PMHx of gastric sleeve, anxiety depression, GERD, bipolar disorder, schizophrenia, hyperlipidemia, hypertension, type 2 diabetes, hypo glycemic episodes, migraine headaches who is presenting to the ER with complaints of a migraine headache, dizziness, general weakness, fatigue, nausea / vomiting / diarrhea, left lower quadrant abdominal pain with decreased p.o. intake feeling like she has low glucose over the past 2 days worse today. She reports that she has dysphagia and she has trouble swallowing pills therefore she would need liquid medication. She does have sublingual Zofran. She denies any measured fevers, neck pain/ stiffness, nasal congestion, sore throat, chest pain or shortness of breath, radiation or abdominal pain, flank pain, dysuria hematuria, abnormal vaginal discharge, recent trauma or head injury or falls, sick contacts, any antibiotic usage or any other symptoms complaints or concerns at this time. She was noted to be hypoglycemic in triage at 41 therefore she was given apple juice, glucose gel 15 g and putting and her glucose went back up. MD elicited complaint: abdominal pain Pertinent past history: other (see above ) Onset (ago): day(s) (2) Pain Consistency: constant Location: LLQ Severity: moderate Quality: aching Radiation: none Migration to: no migration Exacerbating factors: eating Relieving factors: nothing Associated symptoms: nausea, vomiting and diarrhea Related Data Home Medications Medication Instructions Recorded Confirmed blood sugar diagnostic (OneTouch 08/15/22 02/01/23 Verio test strips) blood-glucose meter (OneTouch 08/15/22 02/01/23 Verio Meter) lancets 33 gauge (OneTouch Delica 08/15/22 02/01/23 Lancets) omeprazole 40 mg capsule,delayed 40 mg PO DAILY 02/07/23 release triamcinolone acetonide 0.1 % appl topical 02/07/23 topical cream zolpidem 10 mg tablet 10 mg PO BEDTIME PRN 02/07/23 Previous Rx's Medication Instructions Recorded blood pressure monitor (Blood #1 ea 10/31/21 Pressure Kit) BATH CHAIR #1 ea 01/31/22 CANE #1 ea 01/31/22 LIFELINE ALERT SYSTEM #1 ea 01/31/22 WRIST BRACE #1 ea 01/31/22 ALCOHOL PADS #100 ea 02/21/22 ROLLATOR #1 ea 05/23/22 WRIST SPLINT Right and Left hand #1 ea 05/30/22 SHOWER BAR #1 ea 06/08/22 SHOWER WAND #1 ea 06/08/22 Bed pads #100 ea 07/17/22 Bedside commode #1 ea 07/17/22 SANITARY PADS #100 ea 07/17/22 fluticasone propionate 50 1 spray intranasal DAILY #100 mL 07/27/22 mcg/actuation nasal spray,suspension (Flonase Allergy Relief) simethicone 40 mg/0.6 mL oral 0.6 ml PO BID-TID PRN abdominal 11/08/22 drops,suspension distention #15 mL tramadol 50 mg tablet 50 mg PO Q6H PRN pain 30 days #60 01/22/23 tabs acetaminophen 500 mg/15 mL oral 1,000 mg (30 mL) PO Q6H PRN pain 01/25/23 liquid #1,000 mL ondansetron 4 mg disintegrating 4 mg PO Q8H PRN nausea and 01/25/23 tablet vomiting #10 tabs yohxchsvj-ydyuyjylw-akqdimus-scop 5 ml PO BID PRN indigestion #50 mL 01/25/23 16.2 mg-0.1037 mg/5 mL (5 mL) elixir () food supplemt, lactose-reduced 0.1 1 ea PO TID #1,184 mL 01/29/23 gram-1.18 kcal/ mL oral liquid (Ensure Complete) polyethylene glycol 3350 17 gram 17 g PO DAILY #14 ea 01/31/23 oral powder packet (Miralax) albuterol sulfate 90 mcg/actuation 1 inh inhalation QID PRN shortness 02/04/23 aerosol inhaler of breath or wheezing #8.5 grams azithromycin 250 mg tablet See Rx Instructions PO .COMPLEX #6 02/04/23 (Zithromax Z-Jorge) tabs prednisone 20 mg tablet 20 mg PO BID #10 tabs 02/04/23 aluminum-mag hydroxide-simethicone 5 ml PO 5XD PRN indigestion #355 mL 02/05/23 200 mg-200 mg-20 mg/5 mL oral susp (Maalox Advanced) sucralfate 100 mg/mL oral 5 ml PO QID #1,000 mL 02/05/23 suspension (Carafate) pantoprazole 40 mg granules 40 mg PO BID 30 days #60 packets 02/09/23 delayed-release for susp in packet famotidine 40 mg/5 mL (8 mg/mL) 20 mg (2.5 mL) PO BID #50 mL 03/03/23 oral suspension ondansetron 4 mg disintegrating 4 mg PO Q8H nausea and vomiting 03/03/23 tablet #20 tabs Allergies Allergy/AdvReac Type Severity Reaction Status Date / Time tomato [TOMATO] Allergy Mild HIVES Verified 02/23/23 03:43 DIFFICULTY BREATHING hydrocodone [HYDROCODONE] Allergy Unknown RASH, Verified 02/23/23 03:43 AIRWAY CLOSES ibuprofen [From MOTRIN] Allergy Unknown STOMACH Verified 02/23/23 03:43 UPSET, vomiting trazodone [TRAZODONE] Allergy Unknown UNKNOWN, Verified 02/23/23 03:43 stomach upset black pepper [BLACK PEPPER] AdvReac Severe DIFFICULTY Verified 02/23/23 03:43 BREATHING, hives lisinopril AdvReac Severe Anaphylaxis Verified 02/23/23 03:43 Review of Systems Review of Systems Constitutional : No Weight loss, No Fever, No Chills, No Night Sweats, + Fatigue, + Malaise ENT/Mouth : No Hearing loss, No Ear Pain, No Nasal Congestion, No Sinus Pain, No Hoarseness, No sore throat, No Rhinorrhea, No Swallowing Difficulty Eyes: No Eye Pain, No Swelling, No Redness, No Foreign Body, No Discharge, No Vision Changes Cardiovascular : No Chest Pain, No SOB, No Dyspnea on Exertion, No Orthopnea, No Edema, No Palpitations Respiratory : No Cough, No Sputum, No Wheezing, No Smoke Exposure, No Dyspnea Gastrointestinal : + Nausea, + Vomiting, + Diarrhea, No Constipation, + abdominal Pain, No Hematochezia, No Melena Genitourinary : no irregular bleeding, No Dysuria, No Urinary Frequency, No Hematuria, No Urinary Incontinence, No Urgency, No Flank Pain, No Urinary Flow Changes, No Hesitancy Musculoskeletal : No joint pain, No Myalgias, No Joint Swelling Skin : No Skin Lesions, No rash Neuro : No Weakness, No Numbness, No Paresthesias, No Loss of Consciousness, + Dizziness, + Headache Psych : No Anxiety/Panic, No Depression, No SI/HI/AH/VH, No Social Issues, Heme/Lymph: No Bruising, No Bleeding,No Lymphadenopathy Endocrine : No Polyuria, No Polydipsia, No Temperature Intolerance Yes all other systems are reviewed and are negative [facility]LY [facility] Past Medical History Attestation statement: The following information was validated with the patient. 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 Diverticulosis GERD (gastroesophageal reflux disease) History of bipolar disorder History of schizophrenia Hypercholesterolemia Hypertension Insomnia Numbness of left hand Renal calculi Spondylosis of lumbar spine Type 2 diabetes mellitus with hyperglycemia Vitamin D deficiency Surgical History H/O: hysterectomy History of esophagogastroduodenoscopy (EGD) History of tubal ligation Hx of bariatric surgery Hx of colonoscopy Family History Family History Father Medical history unknown Mother Medical history unknown Paternal Aunt Uterine cancer Diabetes Hypertension Paternal Uncle Liver cancer Heart attack Maternal Aunt Stroke Family/Other Chronic mental illness Sister Uterine cancer Schizophrenia Brother Substance abuse Other Mental health disorder Social History Social History Household Members: None Housing: Apartment Do you presently have visiting nurse or other home services: Yes Alcohol intake: current Alcohol intake frequency: holidays/special occasions only Alcohol type: beer Patient Tobacco Use Status: Never used Tobacco Smoked in Last 30 Days: Yes e-Cigarette/Vaping Use: Never Used Second Hand Smoke Exposure: No Use of substances other than those prescribed or required for medical reasons: No Substance Use Type: Marijuana Advance Directives: No Advance Directives Information Provided: No Patient : No service: No Current occupational status: disabled Current occupational exposures/hazards: No Cognitive needs: No Hearing needs: No Vision needs: No Physical Exam ED Vital Signs: Vital Signs - 24 hr 03/03/23 16:09 03/03/23 19:25 Temperature 97.1 F 98.3 F Pulse Rate 73 55 Respiratory Rate 18 12 Blood Pressure 119/80 119/84 Pulse Oximetry 98 97 Oxygen Delivery Method Room Air Room Air BMI result Body Mass Index 20.9 vital signs have been reviewed as normal and appeared to be correct. Blood pre ssure normal. Heart rate normal. Respiration rate normal. Temperature normal. Oxygen saturation normal. Appearance: Alert. Oriented X3. No acute distress. Head: Normal external exam. Normocephalic. Atraumatic. No Hua signs noted. No raccoon eyes noted Eyes: PERRLA. EOMI. Conjunctiva and sclera normal. Eyelids normal. ENT: EAC normal. TM's Normal. No septal hematoma noted. No hemotympanum noted. Pharynx normal. Uvula midline. Moist mucous membranes. No lesions/ulcerations or masses noted on the tongue. Normal voice. No trismus noted. No drooling noted. No muffled voice noted. Neck: Normal inspection. Neck supple. FROM. No adenopathy. Thyroid Normal. No tracheal deviation noted. No crepitus is noted. No meningeal signs. No neck mass noted. No signs of trauma noted. CVS: Normal heart rate and rhythm. Heart sound normal. Pulses normal throughout. No murmurs/rales/gallops. Respiratory: No respiratory distress. Painless inspiration. Breath sounds normal. No wheezes/rales/rhonchi noted. Chest nontender. No crepitus is noted. No signs of trauma noted. No accessory muscle usage noted or decreased air movement noted. No signs of trauma. Abdomen: Soft and TTP to LLQ. Bowel sounds normal in all 4 quadrants. No distention noted. No organomegaly noted. No visible injury noted. Back: No CVA tenderness. Full range of motion noted. Nontender. No signs of trauma. Patient neuro intact bilaterally and distally on all 4 extremities. Patient's reflexes intact bilaterally and distally on all 4 extremities. No rashes/lesion/induration/fluctuance or signs of infection noted. Skin: Skin warm and dry. Normal skin color. Normal skin turgor. No rashes/lesions/lacerations noted. Extremities: No lower extremity edema. No calf tenderness is noted. Extremities exhibit normal range of motion and nontender. Neuro: Oriented X 3. No motor deficit. No sensory deficit. Reflexes normal. Normal steady gait. No focal neuro deficits noted. CN's II-XII intact bilaterally? Vascular: + radial pulses/+ 2 distal pedal pulses/+2 dorsalis pedis b/l. Normal cap refill. No cyanosis noted to upper extremity nails and lower extremity toes nails. Course Course Course Narrative: This is an RME: Additional HPI, ROS, PE not included below will be deferred to primary provider. Patient is a 42-year-old [place]an-speaking female who presents to the emergency department evaluation of migraine headache x 2 days, right sided with nausea, vomiting, diarrhea, inability to tolerate PO intake, acid reflux, dizziness, diplopia. She states that due to dysphagia she is unable to swallow any pills. Therefore she needs IV medications for management. requesting POC glucose due to hx of hypoglycemia POC 41: provided with pudding and apple juice in triage - glucose gel 15g Plan: labs, U/A Reevaluation(s) Reevaluation #1: This is a 42yoF with LLQ pain With nausea vomiting diarrhea decreased p.o. intake headaches and dizziness for the past 2 days worse today most concerning for diverticulitis versus viral syndrome. Abdominal exam without peritoneal signs. No evidence of acute abdomen at this time. Well appearing. Low suspicion for acute hepatobiliary disease (including acute cholecystitis), acute infectious processes (pneumonia, hepatitis, pyelonephritis), vascular ca tastrophe, bowel obstruction or viscus perforation. Presentation not consistent with other acute, emergent causes of abdominal pain at this time. labs were obtained patient with white blood cell count at 4000 which is chronic mild baseline anemia with an H&H of 9.4/28.8 which is similar compared to prior calcium 8.3 otherwise all other labs are within normal limits. UA within normal limits no evidence of UTI. Patient negative for COVID. CT scan abdomen pelvis with IV contrast negative for any acute processes. Patient received IV Toradol, IV Zofran and GI cocktail reports she feels much better. Therefore will DC home with Pepcid and Zofran with instructions to follow-up with PCP and to return if any new or worsening symptoms. Patient understands agrees with this plan. Time: 21:22 Medical Decision Making Medical Decision Making MDM Narrative: see course Differential Diagnosis Differential Diagnoses: The differential diagnosis associated with the presentation includes see course Admission/Observation Consideration of admission/observation: Escalation of care including admission/observation considered Lab Data MDM Lab Attestation statement: I reviewed the patient's lab results. 03/03/23 17:45 03/03/23 17:45 Labs: Lab Results 03/03/23 03/03/23 03/03/23 Range/Units 16:15 16:50 17:02 WBC (4.8-10.8) X10*3/uL RBC (4.20-5.50) X10*6/uL Hgb (12.0-16.0) g/dl Hct (37.0-47.0) % MCV (80.0-98.0) fL MCH (27.0-33.0) pg MCHC (31.0-35.0) g/dl RDW (11.0-16.0) % Plt Count (160-400) X10*3/uL MPV (9.4-12.3) fL Immature Gran % (Auto) (0.0-0.4) % Neut % (Auto) (45-73) % Lymph % (Auto) (20-40) % [place] % (Auto) (2-11) % Eos % (Auto) (0-4) % Baso % (Auto) (0-2) % Lymph # (Auto) (1.2-4.9) X10*3/uL [place] # (Auto) (0.1-1.2) X10*3/uL Eos # (Auto) (0.0-0.4) X10*3/uL Baso # (Auto) (0.0-0.2) X10*3/uL Abs Immat Gran (auto) (0.00-0.03) X10*3/uL Absolute Neuts (auto) (2.0-8.3) x10*3/uL Absolute Nucleated RBC (0.0-0.012) X10*3/uL Nucleated RBC % (auto) (0.0-0.2) /100WBC ESR (0-20) MM/HR Sodium (135-145) mmol/L Potassium (3.3-5.1) mmol/L Chloride (96-108) mmol/L Carbon Dioxide (22-29) mmol/L Anion Gap (12-20) BUN (9-16) mg/dL Creatinine (0.5-1.4) mg/dL Estim Creat Clear Calc Estimated GFR POC Glucose 41 L* 76 (60-115) mg/dL Random Glucose (60-115) mg/dL Calcium (8.4-10.2) mg/dL Magnesium (1.6-2.6) mg/dL Total Bilirubin (0.0-1.0) mg/dL Direct Bilirubin (0.0-0.5) mg/dL AST (5-31) U/L ALT (0-31) U/L Alkaline Phosphatase (39-117) U/L C-Reactive Protein (< or = 0.50) mg/dL Total Protein (6.5-8.0) g/dL Albumin (3.5-5.0) g/dL Lipase (8-78) U/L Urine Color Urine Appearance Urine pH (5.0-9.0) Ur Specific [place] (1.005-1.025) Urine Protein (Neg-Trace) mg/dL Urine Glucose (UA) (Negative) mg/dL Urine Ketones (Negative) mg/dL Urine Blood (Negative) Urine Nitrite (Negative) Ur Leukocyte Esterase (Negative) Urine Test (NEGATIVE) COVID-19 (ANGELA) Negative (Negative) COVID-19 Clin Com See Note 03/03/23 03/03/23 03/03/23 Range/Units 17:45 17:45 17:45 WBC 4.7 L (4.8-10.8) X10*3/uL RBC 3.33 L (4.20-5.50) X10*6/uL Hgb 9.4 L (12.0-16.0) g/dl Hct 28.8 L (37.0-47.0) % MCV 86.5 (80.0-98.0) fL MCH 28.2 (27.0-33.0) pg MCHC 32.6 (31.0-35.0) g/dl RDW 13.2 (11.0-16.0) % Plt Count 336 (160-400) X10*3/uL MPV 9.9 (9.4-12.3) fL Immature Gran % (Auto) 0.2 (0.0-0.4) % Neut % (Auto) 50.2 (45-73) % Lymph % (Auto) 35.5 (20-40) % [place] % (Auto) 11.1 H (2-11) % Eos % (Auto) 1.7 (0-4) % Baso % (Auto) 1.3 (0-2) % Lymph # (Auto) 1.7 (1.2-4.9) X10*3/uL [place] # (Auto) 0.5 (0.1-1.2) X10*3/uL Eos # (Auto) 0.1 (0.0-0.4) X10*3/uL Baso # (Auto) 0.1 (0.0-0.2) X10*3/uL Abs Immat Gran (auto) 0.01 (0.00-0.03) X10*3/uL Absolute Neuts (auto) 2.4 (2.0-8.3) x10*3/uL Absolute Nucleated RBC 0.000 (0.0-0.012) X10*3/uL Nucleated RBC % (auto) 0.0 (0.0-0.2) /100WBC ESR 6 (0-20) MM/HR Sodium 138 (135-145) mmol/L Potassium 4.2 (3.3-5.1) mmol/L Chloride 106 (96-108) mmol/L Carbon Dioxide 24 (22-29) mmol/L Anion Gap 12 (12-20) BUN 11 (9-16) mg/dL Creatinine 0.62 (0.5-1.4) mg/dL Estim Creat Clear Calc 89.2 Estimated GFR > 60 POC Glucose (60-115) mg/dL Random Glucose 81 (60-115) mg/dL Calcium 8.3 L (8.4-10.2) mg/dL Magnesium 2.2 (1.6-2.6) mg/dL Total Bilirubin 0.3 (0.0-1.0) mg/dL Direct Bilirubin 0.1 (0.0-0.5) mg/dL AST 13 (5-31) U/L ALT 11 (0-31) U/L Alkaline Phosphatase 50 (39-117) U/L C-Reactive Protein < 0.04 (< or = 0.50) mg/dL Total Protein 6.6 (6.5-8.0) g/dL Albumin 4.0 (3.5-5.0) g/dL Lipase 14 (8-78) U/L Urine Color Urine Appearance Urine pH (5.0-9.0) Ur Specific [place] (1.005-1.025) Urine Protein (Neg-Trace) mg/dL Urine Glucose (UA) (Negative) mg/dL Urine Ketones (Negative) mg/dL Urine Blood (Negative) Urine Nitrite (Negative) Ur Leukocyte Esterase (Negative) Urine Test (NEGATIVE) COVID-19 (ANGELA) (Negative) COVID-19 Clin Com 03/03/23 03/03/23 Range/Units 19:29 19:29 WBC (4.8-10.8) X10*3/uL RBC (4.20-5.50) X10*6/uL Hgb (12.0-16.0) g/dl Hct (37.0-47.0) % MCV (80.0-98.0) fL MCH (27.0-33.0) pg MCHC (31.0-35.0) g/dl RDW (11.0-16.0) % Plt Count (160-400) X10*3/uL MPV (9.4-12.3) fL Immature Gran % (Auto) (0.0-0.4) % Neut % (Auto) (45-73) % Lymph % (Auto) (20-40) % [place] % (Auto) (2-11) % Eos % (Auto) (0-4) % Baso % (Auto) (0-2) % Lymph # (Auto) (1.2-4.9) X10*3/uL [place] # (Auto) (0.1-1.2) X10*3/uL Eos # (Auto) (0.0-0.4) X10*3/uL Baso # (Auto) (0.0-0.2) X10*3/uL Abs Immat Gran (auto) (0.00-0.03) X10*3/uL Absolute Neuts (auto) (2.0-8.3) x10*3/uL Absolute Nucleated RBC (0.0-0.012) X10*3/uL Nucleated RBC % (auto) (0.0-0.2) /100WBC ESR (0-20) MM/HR Sodium (135-145) mmol/L Potassium (3.3-5.1) mmol/L Chloride (96-108) mmol/L Carbon Dioxide (22-29) mmol/L Anion Gap (12-20) BUN (9-16) mg/dL Creatinine (0.5-1.4) mg/dL Estim Creat Clear Calc Estimated GFR POC Glucose (60-115) mg/dL Random Glucose (60-115) mg/dL Calcium (8.4-10.2) mg/dL Magnesium (1.6-2.6) mg/dL Total Bilirubin (0.0-1.0) mg/dL Direct Bilirubin (0.0-0.5) mg/dL AST (5-31) U/L ALT (0-31) U/L Alkaline Phosphatase (39-117) U/L C-Reactive Protein (< or = 0.50) mg/dL Total Protein (6.5-8.0) g/dL Albumin (3.5-5.0) g/dL Lipase (8-78) U/L Urine Color Yellow Urine Appearance Cloudy Urine pH >= 9.0 (5.0-9.0) Ur Specific [place] 1.020 (1.005-1.025) Urine Protein Trace (Neg-Trace) mg/dL Urine Glucose (UA) Negative (Negative) mg/dL Urine Ketones Negative (Negative) mg/dL Urine Blood Negative (Negative) Urine Nitrite Negative (Negative) Ur Leukocyte Esterase Negative (Negative) Urine Test NEGATIVE (NEGATIVE) COVID-19 (ANGELA) (Negative) COVID-19 Clin Com Independent Interpretation I performed an independent interpretation of an: CT Scan Interpretation: CT scan abdomen pelvis with IV contrast reviewed by myself this is my indep endent interpretation agreeable with radiologist reports Radiology Impression Discussion of test interpretation with radiology: I have reviewed the radiologist's reading. Radiologist Impression: FINDINGS: LUNG BASES: The visualized lung bases are unremarkable.? LIVER, GALLBLADDER, AND BILIARY TREE: Stable tiny hepatic cysts. No new findings. No biliary ductal dilatation. The gallbladder is unremarkable with no evidence of radiopaque gallstones, gallbladder wall thickening, or obvious pericholecystic inflammatory changes.? PANCREAS: Unremarkable.? SPLEEN: Unremarkable.? ADRENAL GLANDS: Unremarkable.? KIDNEYS AND URETERS: The kidneys are normal in size, shape, and attenuation. No hydronephrosis, hydroureter, or calculi seen. No perinephric stranding. ? BLADDER: Unremarkable.? GASTROINTESTINAL TRACT: Moderate stool burden again noted without evidence for obstruction. No acute inflammatory changes. Postsurgical changes appears once again satisfactory. No fluid collection. Mesenteric vessels are patent. No obstruction.? ABDOMINAL WALL: No significant hernia is appreciated.? LYMPH NODES: Normal. VASCULAR: Unremarkable. PELVIC VISCERA: Pelvic organs appeared surgically absent.? OSSEOUS STRUCTURES: Unremarkable.? CT/CT abdomen pelvis w IV con IMPRESSION: Postsurgical changes once again noted. No acute inflammatory changes. No obstruction. ? Fleischner guidelines were followed. External Record Review External record reviewed: Inpatient record, Office record, Outpatient record, Prior outpatient labs, Prior outpatient radiology, Primary care record and Outside ED record all prior labs/imaging/EKG and notes that are accessible in our system reviewed by myself Prescription Management I considered prescription management with: Other ( nausea medication and Pepcid for GERD) Chronic Conditions Patient?s care impacted by: Diabetes and Hypertension Social Determinants Patient?s care significantly limited by Social Determinants of Health including: Low income and Other Social Determinant of Health Medications Administered Discontinued Medications Generic Name Dose Route Start Last Admin Trade Name Freq PRN Reason Stop Dose Admin Al Hydroxide/Mg Hydroxide 30 ml 03/03/23 18:50 03/03/23 19:19 Magnesium Hydrox/Alum Hydrox 30 Ml Oral.Susp PO 03/03/23 18:51 30 ml ONCE ONE Administration Glucose 15 gm 03/03/23 16:17 03/03/23 16:23 Glucose Gel 15 Gm Gel..Gram. PO 03/03/23 16:18 15 gm ONCE ONE Administration Iohexol 100 ml 03/03/23 19:05 03/03/23 19:05 Iohexol 350 Mg/Ml 100 Ml Infus..Btl IV 03/03/23 19:06 85 ml ONCE ONE Administration Ketorolac Tromethamine 30 mg 03/03/23 18:50 03/03/23 19:19 Ketorolac Tromethamine 30 Mg/Ml Vial IVPUSH 03/03/23 18:51 30 mg ONCE ONE Administration Lidocaine HCl 15 ml 03/03/23 18:50 03/03/23 19:20 Lidocaine Hcl Viscous 2 % 15 Ml Solution MUCOUS MEM 03/03/23 18:51 Not Given ONCE ONE Ondansetron HCl 4 mg 03/03/23 18:50 03/03/23 19:19 Ondansetron Hcl 4 Mg/2 Ml Vial IVPUSH 03/03/23 18:51 4 mg ONCE ONE Administration Critical Care Time Critical Care Time Critical Care Time: Yes Total Critical Care Time: 60 Attestation: I personally attest to this time spent taking care of the patient Discharge Plan Discharge Clinical Impression: Headache, migraine, Hypoglycemia, Nausea vomiting and diarrhea, Abdominal pain, Acute viral syndrome Patient Disposition: Home, Self-Care Instructions: Migraine Headache (ED) Prescriptions: New ondansetron 4 mg tablet,disintegrating 4 mg PO Q8H Qty: 20 0RF famotidine 40 mg/5 mL (8 mg/mL) suspension 20 mg PO BID Qty: 50 3RF No Action (DME) blood pressure monitor [Blood Pressure Kit] Kit See Rx Instructions .Route Qty: 1 0RF Rx Instructions: As directed (DME) CANE See Rx Instructions .Route .MEDSUPPLY Qty: 1 0RF Rx Instructions: As directed (DME) WRIST BRACE See Rx Instructions .Route .MEDSUPPLY Qty: 1 0RF Rx Instructions: As directed (DME) BATH CHAIR See Rx Instructions .Route .MEDSUPPLY Qty: 1 0RF Rx Instructions: As directed (DME) LIFELINE ALERT SYSTEM See Rx Instructions .Route .MEDSUPPLY Qty: 1 0RF Rx Instructions: As directed (DME) ALCOHOL PADS See Rx Instructions .Route .MEDSUPPLY Qty: 100 3RF Rx Instructions: As directed (DME) ROLLATOR See Rx Instructions .Route .MEDSUPPLY Qty: 1 0RF Rx Instructions: As directed (DME) WRIST SPLINT Right and Left hand See Rx Instructions .Route .MEDSUPPLY Qty: 1 0RF Rx Instructions: As directed (DME) SHOWER WAND See Rx Instructions .Route .MEDSUPPLY Qty: 1 0RF Rx Instructions: As directed (DME) SHOWER BAR See Rx Instructions .Route .MEDSUPPLY Qty: 1 0RF Rx Instructions: As directed (DME) Bedside commode See Rx Instructions .Route .MEDSUPPLY Qty: 1 0RF Rx Instructions: As directed (DME) Bed pads See Rx Instructions .Route .MEDSUPPLY Qty: 100 12RF Rx Instructions: As directed (DME) SANITARY PADS See Rx Instructions .Route .MEDSUPPLY Qty: 100 12RF Rx Instructions: As directed simethicone 40 mg/0.6 mL drops,suspension 0.6 ml PO BID-TID PRN (Reason: abdominal distention) Qty: 15 0RF tramadol 50 mg tablet 50 mg PO Q6H PRN (Reason: pain) 30 Days Qty: 60 1RF Ensure Complete 0.1 gram-1.18 kcal/mL liquid 1 ea PO TID Qty: 1184 12RF polyethylene glycol 3350 [Miralax] 17 gram powder in packet 17 g PO DAILY Qty: 14 3RF Rx Instructions: Use daily until you have a normal bowel movement, then stop. pantoprazole [address] for susp in packet 40 mg PO BID 30 Days Qty: 60 5RF aovsrctfe-cpncrt-tffkmmrc-scop [] 16.2 mg-0.1037 mg/5 mL (5 mL) elixir 5 ml PO BID PRN (Reason: indigestion) Qty: 50 0RF ondansetron 4 mg tablet,disintegrating 4 mg PO Q8H PRN (Reason: nausea and vomiting) Qty: 10 0RF acetaminophen 500 mg/15 mL liquid 1,000 mg PO Q6H PRN (Reason: pain) Qty: 1000 0RF azithromycin [Zithromax Z-Jorge] 250 mg tablet See Rx Instructions .ROUTE .COMPLEX Qty: 6 0RF Rx Instructions: For 250 mg dose pack: take 500 mg today (day 1), then 250 mg for 4 days (days 2-5) prednisone 20 mg tablet 20 mg PO BID Qty: 10 0RF albuterol sulfate 90 mcg/actuation HFA aerosol inhaler 1 inh inhalation QID PRN (Reason: shortness of breath or wheezing) Qty: 8.5 0RF sucralfate [Carafate] 100 mg/mL suspension 5 ml PO QID Qty: 1000 0RF Rx Instructions: swish in mouth and swallow; use after food/drink alum-mag hydroxide-simeth [Maalox Advanced] 200-200-20 mg/5 mL suspension 5 ml PO 5XD PRN (Reason: indigestion) Qty: 355 0RF Rx Instructions: administer between meals and at bedtime fluticasone propionate [Flonase Allergy Relief] 50 mcg/actuation spray,suspension 1 spray intranasal DAILY Qty: 100 0RF Rx Instructions: administer into each nostril (DME) blood-glucose meter [OneTouch Verio Meter] [facility] [place] See Rx Instructions .Route Rx Instructions: As directed (DME) OneTouch Verio test strips Strip See Rx Instructions .Route Rx Instructions: As directed 3 times a day (DME) lancets [OneTouch Delica Lancets] [facility] See Rx Instructions .Route Rx Instructions: As directed 3 times a day zolpidem 10 mg tablet 10 mg PO BEDTIME PRN triamcinolone acetonide 0.1 % cream topical omeprazole 40 mg capsule,delayed release(DR/EC) 40 mg PO DAILY Referrals: Deirdre Cantrell MD [Primary Care Provider] - 2 days Print Language: Tunisian
[2023-03-03] MEDS: Glucose Gel 15 GM GEL..GRAM. PO (16:23)
--- NOTE | 2023-03-03 16:24 | PC.NURSE ---
POC checked in triage, 42, Gel given, along with pudding and apple juice.
[2023-03-03 16:28] LABS: Glucose, Whole Blood 41 mg/dL (60-115)
[2023-03-03 17:06] LABS: Glucose, Whole Blood 76 mg/dL (60-115)
[2023-03-03 17:20] LABS: COVID-19 Test Negative (Negative); IDNOW Serial# BCCEAD1C
[2023-03-03 17:50] LABS: MANUAL DIFF FLAG NO
[2023-03-03 18:16] LABS: Basophils Absolute Auto 0.1 X10*3/uL (0.0-0.2); Basophils Percent Auto 1.3 % (0-2); Eosinophils Absolute Auto 0.1 X10*3/uL (0.0-0.4); Eosinophils Percent Auto 1.7 % (0-4); Hematocrit 28.8 % (37.0-47.0); Hemoglobin 9.4 g/dl (12.0-16.0); Imm Gran Abs Auto 0.01 X10*3/uL (0.00-0.03); Imm Gran Pct Auto 0.2 % (0.0-0.4); Lymphocytes Absolute Auto 1.7 X10*3/uL (1.2-4.9); Lymphocytes Percent Auto 35.5 % (20-40); Mean Corpuscular HGB Conc 32.6 g/dl (31.0-35.0); Mean Corpuscular Hemoglobin 28.2 pg (27.0-33.0); Mean Corpuscular Volume 86.5 fL (80.0-98.0); Mean Platelet Volume 9.9 fL (9.4-12.3); Monocytes Absolute Auto 0.5 X10*3/uL (0.1-1.2); Monocytes Percent Auto 11.1 % (2-11); Neutrophils Absolute Auto 2.4 x10*3/uL (2.0-8.3); Neutrophils Percent Auto 50.2 % (45-73); Platelet Count 336 X10*3/uL (160-400); Red Blood Count 3.33 X10*6/uL (4.20-5.50); Red Cell Distribution Width 13.2 % (11.0-16.0); White Blood Count 4.7 X10*3/uL (4.8-10.8)
[2023-03-03 18:30] LABS: Alanine Aminotransferase 11 U/L (0-31); Alkaline Phosphatase 50 U/L (39-117); Anion Gap 12 (12-20); Aspartate Amino Transferase 13 U/L (5-31); Bilirubin Direct 0.1 mg/dL (0.0-0.5); Bilirubin Total 0.3 mg/dL (0.0-1.0); Blood Urea Nitrogen 11 mg/dL (9-16); C Reactive Protein < 0.04 mg/dL (< or = 0.50); Calcium 8.3 mg/dL (8.4-10.2); Carbon Dioxide 24 mmol/L (22-29); Chloride 106 mmol/L (96-108); Creatinine Clr Calc Pharmacy 89.2; Estimated Glomerular Filt Rate > 60; Glucose Random 81 mg/dL (60-115); Lipase 14 U/L (8-78); Magnesium 2.2 mg/dL (1.6-2.6); Potassium 4.2 mmol/L (3.3-5.1); Sodium 138 mmol/L (135-145); Total Protein 6.6 g/dL (6.5-8.0)
[2023-03-03] MEDS: iohexoL 350 MG/ML 100 ML INFUS..BTL IV (19:05)
[2023-03-03 19:08] LABS: Erythrocyte Sedimentation Rate 6 MM/HR (0-20)
[2023-03-03] MEDS: Ketorolac Tromethamine 30 MG/ML VIAL IVPUSH (19:19)
[2023-03-03] MEDS: ondansetron HCL 4 MG/2 ML VIAL IVPUSH (19:19)
[2023-03-03] MEDS: Magnesium Hydrox/Alum Hydrox 30 ML ORAL.SUSP PO (19:19)
[2023-03-03 19:25] VITALS: BP 119/84; PULSE 55; RESP 12; TEMP 36.8; O2SAT 97
--- NOTE | 2023-03-03 19:33 | PC.NURSE ---
Pt aox4 resting at the bedside. VSS. Reports headache, 05/08. Medicated as ordered. Tolerated well. Pending CT results. Pt aware of plan of care.
[2023-03-03 19:48] LABS: Appearance Urine Cloudy; Color Urine Yellow; Glucose Urine UA Negative (Negative); Leukocyte Esterase Urine Negative (Negative); Nitrite Urine Negative (Negative); PH >= 9.0 (5.0-9.0); Urine Blood Negative (Negative); Urine Ketones Negative (Negative); Urine Protein Trace mg/dL (Neg-Trace)
[2023-03-03 19:54] LABS: UPreg QC Valid YES; Urine Pregnancy NEGATIVE (NEGATIVE)
[2023-03-03 21:30] VITALS: BP 122/70; PULSE 57; RESP 12; TEMP 36.8; O2SAT 99
== END 2023-03-03 21:36 | disposition home or self-care (01) ==
PROVIDERS: Nurse Practitioner Family; Physician Assistant Medical; Emergency Provider Emergency Medicine; PCP Internal Medicine
DX: B34.9 Viral infection, unspecified (principal); G43.909 Migraine, unspecified, not intractable, without status migrainosus; E11.649 Type 2 diabetes mellitus with hypoglycemia without coma; R10.32 Left lower quadrant pain; R11.2 Nausea with vomiting, unspecified; R19.7 Diarrhea, unspecified; Z20.822 Contact with and (suspected) exposure to COVID-19; I10 Essential (primary) hypertension; E78.5 Hyperlipidemia, unspecified; E78.00 Pure hypercholesterolemia, unspecified; Z79.899 Other long term (current) drug therapy
CPT/HCPCS: 36415; 74177; 80053; 81003; 81025; 82248; 82947; 83690; 83735; 85025; 85652; 86140; 87635; 96374; 96375; 99284; 99285; J1885; J2405; Q9967

== ENCOUNTER 2023-03-07 10:32 | Day surgery (SDC) | payer OTHER, SELFPAY ==
--- NOTE | 2023-03-06 10:54 | P.CONAN_ITS ---
Documented by User: Elizabeth Cisneros NP 03/06/23 10:56 HPI - Anesthesia Eval Consult details Narrative: 42yo F for Upper Endoscopy with Balloon Dilitation PMFSH Active Problems Active Problems: All Active Problems (Updated 03/04/23 @ 00:23 by Dash Bahena) Elevated platelet count (Acute) Lumbar back pain with radiculopathy affecting right lower extremity (Acute) Gastritis (Acute) Gastric hourglass stricture or stenosis (Acute) History of schizophrenia (Acute) Alcohol abuse (Acute) Underweight (Acute) Esophagitis determined by endoscopy (Acute) Complex ovarian cyst (Acute) Tongue sore (Acute) Right ear pain (Acute) Abdominal bloating (Acute) Constipation (Acute) Urinary incontinence (Acute) Anemia (Acute) Right leg numbness (Acute) Dysphagia (Acute) Postgastrectomy malabsorption (Acute) COVID-19 virus infection (Acute) Blurred vision, bilateral (Acute) Memory impairment (Acute) Melasma (Acute) Lumbar radiculopathy, chronic (Acute) Dysphagia (Acute) Annual physical exam (Acute) Hypoglycemia after GI (gastrointestinal) surgery (Acute) Pelvic pain (Acute) Vaginal irritation (Acute) Vaginitis (Acute) Syncope (Acute) ACTH elevation (Acute) Dysphagia (Acute) Hypoglycemia (Acute) Malabsorption (Acute) Adrenal insufficiency (Acute) S/P gastric sleeve procedure (Acute) Low back pain (Acute) Yeast vaginitis (Acute) Hypersomnia (Acute) Bilateral hand numbness (Acute) Breast cancer screening by mammogram (Acute) Vaginal pruritus (Acute) Dysuria (Acute) Annual physical exam (Acute) Generalized anxiety disorder (Acute) COVID-19 virus infection (Acute) Hyperpigmentation (Acute) Ulnar neuropathy (Acute) Radicular low back pain (Acute) Right hand pain (Acute) Vitamin B 12 deficiency (Acute) Alopecia (Acute) Renal calculi (Acute) 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 (Acute) Spondylosis of lumbar spine (Acute) GERD (gastroesophageal reflux disease) (Acute) Hypercholesterolemia (Acute) Hypertension (Acute) Past Medical History 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 Diverticulosis GERD (gastroesophageal reflux disease) History of bipolar disorder History of schizophrenia Hypercholesterolemia Hypertension Insomnia Numbness of left hand Renal calculi Spondylosis of lumbar spine Type 2 diabetes mellitus with hyperglycemia Vitamin D deficiency Family History Family History Father Medical history unknown Mother Medical history unknown Paternal Aunt Uterine cancer Diabetes Hypertension Paternal Uncle Liver cancer Heart attack Maternal Aunt Stroke Family/Other Chronic mental illness Sister Uterine cancer Schizophrenia Brother Substance abuse Other Mental health disorder Family history of problems with anesthesia: No Surgical History Surgical History H/O: hysterectomy History of esophagogastroduodenoscopy (EGD) History of tubal ligation Hx of bariatric surgery Hx of colonoscopy History of Problems with Anesthesia: No Social History Social History Household Members: None Housing: Apartment Do you presently have visiting nurse or other home services: Yes Alcohol intake: current Alcohol intake frequency: holidays/special occasions only Alcohol type: beer Patient Tobacco Use Status: Never used Tobacco e-Cigarette/Vaping Use: Never Used Second Hand Smoke Exposure: No Substance Use Type: Marijuana service: No Current occupational status: disabled Current occupational exposures/hazards: No Cognitive needs: No Hearing needs: No Vision needs: No Meds Allergies Allergy/AdvReac Type Severity Reaction Status Date / Time tomato [TOMATO] Allergy Mild HIVES Verified 02/23/23 03:43 DIFFICULTY BREATHING hydrocodone [HYDROCODONE] Allergy Unknown RASH, Verified 02/23/23 03:43 AIRWAY CLOSES ibuprofen [From MOTRIN] Allergy Unknown STOMACH Verified 02/23/23 03:43 UPSET, vomiting trazodone [TRAZODONE] Allergy Unknown UNKNOWN, Verified 02/23/23 03:43 stomach upset black pepper [BLACK PEPPER] AdvReac Severe DIFFICULTY Verified 02/23/23 03:43 BREATHING, hives lisinopril AdvReac Severe Anaphylaxis Verified 02/23/23 03:43 Home Medications Medication Instructions Recorded Confirmed Last Taken Type blood sugar diagnostic ([employer]Touch 08/15/22 02/01/23 Unknown History Verio test strips) blood-glucose meter (OneTouch 08/15/22 02/01/23 Unknown History Verio Meter) lancets 33 gauge (OneTouch Delica 08/15/22 02/01/23 Unknown History Lancets) omeprazole 40 mg capsule,delayed 40 mg PO DAILY 02/07/23 Unknown History release triamcinolone acetonide 0.1 % appl topical 02/07/23 Unknown History topical cream zolpidem 10 mg tablet 10 mg PO BEDTIME PRN 02/07/23 Unknown History Exam Exam Date and Time: March 06, 2023 1054 Pertinent Lab Results Pertinent Lab Results: Laboratory Tests 03/03/23 03/03/23 17:45 17:45 WBC 4.7 L Hgb 9.4 L Hct 28.8 L Plt Count 336 Sodium 138 Potassium 4.2 Chloride 106 Carbon Dioxide 24 BUN 11 Creatinine 0.62 Assessment and Plan Assessment Anesthesia Assessment: Chart Reviewed Final Anesthetic Review Family History of Problems with Anesthesia: No History of Problems with Anesthesia: No Documented by User: Marika Lo MD 03/07/23 12:54 HPI - Anesthesia Eval Consult details Narrative: 42yo F for Upper Endoscopy with Balloon Dilatation PMFSH Active Problems Active Problems: All Active Problems (Updated 03/07/23 @ 11:15 by Marika Lo MD) Elevated platelet count (Acute) Lumbar back pain with radiculopathy affecting right lower extremity (Acute) Gastritis (Acute) Gastric hourglass stricture or stenosis (Acute) History of schizophrenia (Acute) Alcohol abuse (Acute) Underweight (Acute) Esophagitis determined by endoscopy (Acute) Complex ovarian cyst (Acute) Tongue sore (Acute) Right ear pain (Acute) Abdominal bloating (Acute) Constipation (Acute) Urinary incontinence (Acute) Anemia (Acute) Right leg numbness (Acute) Dysphagia (Acute) Postgastrectomy malabsorption (Acute) COVID-19 virus infection (Acute) Blurred vision, bilateral (Acute) Memory impairment (Acute) Melasma (Acute) Lumbar radiculopathy, chronic (Acute) Dysphagia (Acute) Annual physical exam (Acute) Hypoglycemia after GI (gastrointestinal) surgery (Acute) Pelvic pain (Acute) Vaginal irritation (Acute) Vaginitis (Acute) Syncope (Acute) ACTH elevation (Acute) Dysphagia (Acute) Hypoglycemia (Acute) Malabsorption (Acute) Adrenal insufficiency (Acute) S/P gastric sleeve procedure (Acute) Low back pain (Acute) Yeast vaginitis (Acute) Hypersomnia (Acute) Bilateral hand numbness (Acute) Breast cancer screening by mammogram (Acute) Vaginal pruritus (Acute) Dysuria (Acute) Annual physical exam (Acute) Generalized anxiety disorder (Acute) COVID-19 virus infection (Acute) Hyperpigmentation (Acute) Ulnar neuropathy (Acute) Radicular low back pain (Acute) Right hand pain (Acute) Vitamin B 12 deficiency (Acute) Alopecia (Acute) Renal calculi (Acute) 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 BS today 67. Patient not always symptomatic Past Medical History 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 Diverticulosis GERD (gastroesophageal reflux disease) History of bipolar disorder History of schizophrenia Hypercholesterolemia Hypertension Insomnia Numbness of left hand Renal calculi Spondylosis of lumbar spine Type 2 diabetes mellitus with hyperglycemia Vitamin D deficiency Family History Family History Father Medical history unknown Mother Medical history unknown Paternal Aunt Uterine cancer Diabetes Hypertension Paternal Uncle Liver cancer Heart attack Maternal Aunt Stroke Family/Other Chronic mental illness Sister Uterine cancer Schizophrenia Brother Substance abuse Other Mental health disorder Surgical History Surgical History H/O: hysterectomy History of esophagogastroduodenoscopy (EGD) History of tubal ligation Hx of bariatric surgery Hx of colonoscopy Social History Social History Household Members: None Housing: Apartment Do you presently have visiting nurse or other home services: Yes Alcohol intake: current Alcohol intake frequency: holidays/special occasions only Alcohol type: beer Patient Tobacco Use Status: Never used Tobacco e-Cigarette/Vaping Use: Never Used Second Hand Smoke Exposure: No Substance Use Type: Marijuana service: No Current occupational status: disabled Current occupational exposures/hazards: No Cognitive needs: No Hearing needs: No Vision needs: No Meds Allergies Allergy/AdvReac Type Severity Reaction Status Date / Time tomato [TOMATO] Allergy Mild HIVES Verified 02/23/23 03:43 DIFFICULTY BREATHING hydrocodone [HYDROCODONE] Allergy Unknown RASH, Verified 02/23/23 03:43 AIRWAY CLOSES ibuprofen [From MOTRIN] Allergy Unknown STOMACH Verified 02/23/23 03:43 UPSET, vomiting trazodone [TRAZODONE] Allergy Unknown UNKNOWN, Verified 02/23/23 03:43 stomach upset black pepper [BLACK PEPPER] AdvReac Severe DIFFICULTY Verified 02/23/23 03:43 BREATHING, hives lisinopril AdvReac Severe Anaphylaxis Verified 02/23/23 03:43 Home Medications Medication Instructions Recorded Confirmed Last Taken Type blood sugar diagnostic (OneTouch 08/15/22 02/01/23 Unknown History Verio test strips) blood-glucose meter ([employer] 08/15/22 02/01/23 Unknown History Verio Meter) lancets 33 gauge ([employer] Delica 08/15/22 02/01/23 Unknown History Lancets) omeprazole 40 mg capsule,delayed 40 mg PO DAILY 02/07/23 Unknown History release triamcinolone acetonide 0.1 % appl topical 02/07/23 Unknown History topical cream zolpidem 10 mg tablet 10 mg PO BEDTIME PRN 02/07/23 Unknown History Exam Height,Weight and Vital Signs: Vital Signs Temp Pulse Resp BP Pulse Ox O2 Del Method 03/07/23 11:02 98 F 68 16 130/83 100 Room Air Pertinent Lab Results Pertinent Lab Results: Laboratory Tests 03/03/23 03/03/23 17:45 17:45 WBC 4.7 L Hgb 9.4 L Hct 28.8 L Plt Count 336 Sodium 138 Potassium 4.2 Chloride 106 Carbon Dioxide 24 BUN 11 Creatinine 0.62 Lab Results 03/07/23 Range/Units 11:29 POC Glucose 67 (60-115) mg/dL Airway Mallampati Class: II TM Dist: >3cm Neck ROM: Full Loose/Missing/Broken Teeth: Yes (Missing tooth bottom front) Heart: RRR Lungs: CTAB Assessment and Plan Assessment Anesthesia Assessment: Anesthesia Plan Discussed Final Anesthetic Review NPO: Yes ASA Class: III Final Preanesthetic Review: No Changes in Pt Med Stat, Meds/Allgs Chart Reviewed, Consent Obtained/Reviewed and Anes Risks/Benef Reviewed Patient Risk: Intermediate Procedure Risk: Low Assessment/Block/Sedation in SS: Assess/Block/Sedation-SS Anesthetic Plan Anesthetic Plan: GA and Other (D5W for hypoglycemia) Disposition: Standard PACU
[2023-03-07] VITALS (7 sets, daily range): BP systolic 130–164; BP diastolic 83–102; PULSE 61–74; RESP 16–18; TEMP 36.1–36.6; O2SAT 100; BMI 20.9
[2023-03-07] MEDS: Lactated Ringers 1,000 ML 100 ML IVCONT (11:26)
--- NOTE | 2023-03-07 11:26 | MHC.SHP ---
Pre-Procedural Eval Section A Date of Service: 03/07/23 The patient is an INPATIENT: No The History & Physical has been completed within 30 days and I have reviewed it.: Yes Section B Chief Complaint: Esophagitis, unspecified without bleeding Allergies: Allergies Allergy/AdvReac Type Severity Reaction Status Date / Time tomato [TOMATO] Allergy Mild HIVES Verified 02/23/23 03:43 DIFFICULTY BREATHING hydrocodone [HYDROCODONE] Allergy Unknown RASH, Verified 02/23/23 03:43 AIRWAY CLOSES ibuprofen [From MOTRIN] Allergy Unknown STOMACH Verified 02/23/23 03:43 UPSET, vomiting trazodone [TRAZODONE] Allergy Unknown UNKNOWN, Verified 02/23/23 03:43 stomach upset black pepper [BLACK PEPPER] AdvReac Severe DIFFICULTY Verified 02/23/23 03:43 BREATHING, hives lisinopril AdvReac Severe Anaphylaxis Verified 02/23/23 03:43 Plan Diagnosis/Plan: Unchanged I have reviewed the history and physical and performed a pertinent physical examination on my patient. No changes have occurred unless specified. Time Spent With Patient Time: Total time managing care of this patient today ____ minutes.
[2023-03-07 11:34] LABS: Glucose, Whole Blood 67 mg/dL (60-115)
--- NOTE | 2023-03-07 11:43 | P.OP_ITS ---
Operative Note Operative Note Date of Service: 03/07/23 Narrative: Procedure: Esophagogastroduodenoscopy Endoscopist: Mi Leavitt MD Indication: Dysphagia, esophageal stricture Anesthesia Provider: Anesthesia Type: MAC ?? EGD Procedure:?? The procedure, indications, preparation and potential complications were revi ewed with the patient, who indicated understanding and gave written informed consent to proceed. staff interpreter assisted with the encounter. A physical exam was performed. The patient was electively intubated for airway protection the anesthesiologist. The endoscope was introduced through the mouth, and advanced to the second part of duodenum. The mucosa was carefully examined on slow withdrawal of the endoscope. The patient tolerated the procedure well. There were no immediate complications.? ? EGD Findings:? * Esophagus:? Grade C esophagitis from 33-35 cm associated with mild narrowing of lumen which could be easily traversed with the gastroscope. A small esophageal ulcer was noted at the GE junction at 35 cm which was spontaneously oozing. * Stomach:? Evidence of sleeve gastrectomy with tubular stomach which did not allow for retroflexion. 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 This was treated with argon plasma coagulation with adequate hemostasis. * Duodenum:? Normal mucosa was noted in the whole of the examined duodenum. Additional intervention: A through the scope balloon dilator was advanced to the GE junction and the esophagus was gradually dilated from 12 to 15 mm. A resolution 360 clip was then placed on the oozing esophageal ulcer and then further sprayed with hemospray. ? EGD Impressions:? * Grade C esophagitis * Mild stricture of lower esophagus 33-35 cm (dilation) * GE junction ulcer (clip, hemospray) * Tubular stomach s/p sleeve gastrectomy * GAVE (APC) * Normal duodenum ?? Recommendations:?? * Start/continue PPI therapy. * Pt remains with esophagitis despite maximized PPI therapy + H2 eldon + carafate * Will discuss 2nd opinion for revision Above has been reviewed with the patient.
[2023-03-07 12:37] LABS: Glucose, Whole Blood 116 mg/dL (60-115)
[2023-03-07] MEDS: Mag&Al/Sim/Diphenhyd/Lidocaine 10 ML ORAL.SUSP PO (12:51)
[2023-03-07] MEDS: Acetaminophen Oral Liquid 650 MG/20.3 ML SOLUTION PO (13:24)
[2023-03-07] MEDS: Sucralfate Oral Suspension 1 GM/10 ML ORAL.SUSP PO (13:31)
== END 2023-03-07 14:15 | disposition home or self-care (01) ==
PROVIDERS: PCP Internal Medicine; Visit Provider Internal Medicine
PROC: (CPT 43233; principal; 2023-03-07 12:40)
DX: K20.90 Esophagitis, unspecified without bleeding (principal); K31.2 Hourglass stricture and stenosis of stomach; R13.10 Dysphagia, unspecified; K21.9 Gastro-esophageal reflux disease without esophagitis; R63.6 Underweight; Z68.1 Body mass index [BMI] 19.9 or less, adult; K57.30 Diverticulosis of large intestine without perforation or abscess without bleeding; E11.9 Type 2 diabetes mellitus without complications; I10 Essential (primary) hypertension; E78.00 Pure hypercholesterolemia, unspecified; E55.9 Vitamin D deficiency, unspecified; G47.00 Insomnia, unspecified; F10.10 Alcohol abuse, uncomplicated; Z87.891 Personal history of nicotine dependence; Z98.84 Bariatric surgery status; Z90.710 Acquired absence of both cervix and uterus
CPT/HCPCS: 43233; 43255; 82947; C1726; J0330

== ENCOUNTER → 2023-03-07 10:32 | Outpatient (BNV) | payer OTHER, SELFPAY | PROVIDERS: PCP Internal Medicine; Visit Provider Internal Medicine | DX: K22.2 Esophageal obstruction (principal); R13.10 Dysphagia, unspecified; K25.9 Gastric ulcer, unspecified as acute or chronic, without hemorrhage or perforation | CPT/HCPCS: 43249; 43255 ==

== ENCOUNTER 2023-03-08 12:33 | Emergency (ER) | payer OTHER, SELFPAY ==
--- NOTE | ~2023-03-08 | CT_ITS ---
EXAMINATION: CT CHEST WITH CONTRAST CT ABDOMEN AND PELVIS WITH CONTRAST CLINICAL INFORMATION: Nausea and vomiting. History of dilatation of a gastric sleeve. COMPARISON: 11/14/2021 TECHNIQUE: Multidetector volumetric imaging was performed through the chest, abdomen and pelvis following the administration of 85 mL of Omnipaque 350 intravenous contrast. Sagittal and coronal reformatted images were obtained on the technologist's workstation. Axial MIP volume rendering provided. This CT examination was performed using dose optimization techniques as appropriate, variously including the following: *Automated exposure control *Adjustment of mA and/or kV according to patient size (this includes techniques or standardized protocols for targeted exams where dose is matched to indication/reason for exam; i.e. extremities or head) *Use of iterative reconstruction technique DLP: 425 mGy-cm. FINDINGS: CHEST: Lungs: The central airways are patent. No consolidation. No pleural effusion or pneumothorax. There are no pulmonary parenchymal nodules. Mediastinum: The heart is of normal size. There is no pericardial effusion. Central vascular structures are unremarkable. No hilar or mediastinal lymphadenopathy. Dilated esophagus with layering fluid internally. There is a linear radiopaque foreign body within the distal esophagus, not present on the prior CT from 11/14/2021. This measures approximately 1.6 cm in length. Coronary Artery Calcification: None visualized on this study. Chest Wall/Axilla: No lymphadenopathy. No chest wall mass. ABDOMEN/PELVIS: Liver, Gallbladder, Biliary Tree: The liver is normal in size, shape, and attenuation. No biliary ductal dilatation. A few hypoattenuating subcentimeter liver lesions are again seen, too small to fully characterize but unchanged from previous.. The gallbladder is unremarkable with no evidence of radiopaque gallstones, gallbladder wall thickening, or pericholecystic inflammatory changes. Pancreas: Unremarkable. Spleen: Unremarkable. Adrenal Glands: Unremarkable. Kidneys and Ureters: The kidneys are normal in size, shape, and attenuation. No hydronephrosis, hydroureter or calculi seen. No perinephric stranding. Bladder: Unremarkable. Gastrointestinal Tract: Status post gastric sleeve. There is circumferential wall thickening involving the distal stomach in the region of the antrum. This is a change from prior. Normal appearance of the small bowel. No obstruction. No colonic wall thickening or inflammation. Mild to moderate diffuse colonic stool burden. Colonic diverticulosis without diverticulitis. The appendix is unremarkable. Abdominal Wall: No hernia is demonstrated. Lymphovascular Structures: Lymph nodes: Normal. Vascular: Unremarkable. Pelvic Viscera: Uterus not seen. Simple appearing 2.2 cm left adnexal follicle. No follow-up recommended. Small volume of pelvic free fluid. OSSEOUS STRUCTURES: No acute or suspicious osseous abnormality. Mild degenerative changes noted in the spine. CT/CT abdomen pelvis w IV con IMPRESSION: 1. Status post gastric sleeve. There is circumferential wall thickening of the distal stomach in the region of the antrum. This is a change from prior. This could be associated with gastritis. No perforation. 2. Dilated esophagus with layering fluid. There is a linear radiopaque foreign body within the distal esophagus, not present on the prior CT from 11/14/2021. This measures approximately 1.6 cm in length. 3. Mild to moderate colonic stool burden.
--- NOTE | 2023-03-08 12:55 | ED.GENADULT ---
HPI - General Adult General Chief complaint: Abdominal Pain Stated complaint: diarrhea/ non stop throwing up Time Seen by Provider: 03/08/23 17:09 Source: patient, RN notes reviewed, old records reviewed and cable lacer Mode of arrival: ambulatory Limitations: language barrier History of Present Illness HPI narrative: 42-year-old female presents for evaluation abdominal pain, nausea and vomiting and diarrhea. Patient had an upper endoscopy with Dr Leavitt yesterday. The patient had mild esophageal dilatation performed as well as an esophageal ulcer clipped. The patient reports to since she left the office she has had severe abdominal pain, chest pain and nausea, vomiting. She reports she is unable tolerate any fluids Triage provider, Gabby spoke to Dr. Leavitt who recommend CT scan of the chest with IV contrast and if no perforation or significant pathology, the patient can be discharged with Magic mouthwash t.i.d. x2 days The patient also has a history gastric sleeve Related Data Home Medications Medication Instructions Recorded Confirmed blood sugar diagnostic (OneTouch 08/15/22 02/01/23 Verio test strips) blood-glucose meter (OneTouch 08/15/22 02/01/23 Verio Meter) lancets 33 gauge (OneTouch Delica 08/15/22 02/01/23 Lancets) omeprazole 40 mg capsule,delayed 40 mg PO DAILY 02/07/23 release triamcinolone acetonide 0.1 % appl topical 02/07/23 topical cream zolpidem 10 mg tablet 10 mg PO BEDTIME PRN 02/07/23 Previous Rx's Medication Instructions Recorded blood pressure monitor (Blood #1 ea 10/31/21 Pressure Kit) BATH CHAIR #1 ea 01/31/22 CANE #1 ea 01/31/22 LIFELINE ALERT SYSTEM #1 ea 01/31/22 WRIST BRACE #1 ea 01/31/22 ALCOHOL PADS #100 ea 02/21/22 ROLLATOR #1 ea 05/23/22 WRIST SPLINT Right and Left hand #1 ea 05/30/22 SHOWER BAR #1 ea 06/08/22 SHOWER WAND #1 ea 06/08/22 Bed pads #100 ea 07/17/22 Bedside commode #1 ea 07/17/22 SANITARY PADS #100 ea 07/17/22 fluticasone propionate 50 1 spray intranasal DAILY #100 mL 07/27/22 mcg/actuation nasal spray,suspension (Flonase Allergy Relief) simethicone 40 mg/0.6 mL oral 0.6 ml PO BID-TID PRN abdominal 11/08/22 drops,suspension distention #15 mL tramadol 50 mg tablet 50 mg PO Q6H PRN pain 30 days #60 01/22/23 tabs acetaminophen 500 mg/15 mL oral 1,000 mg (30 mL) PO Q6H PRN pain 01/25/23 liquid #1,000 mL ondansetron 4 mg disintegrating 4 mg PO Q8H PRN nausea and 01/25/23 tablet vomiting #10 tabs lggsuvsbc-lgnitwzye-glwkllje-scop 5 ml PO BID PRN indigestion #50 mL 01/25/23 16.2 mg-0.1037 mg/5 mL (5 mL) elixir () food supplemt, lactose-reduced 0.1 1 ea PO TID #1,184 mL 01/29/23 gram-1.18 kcal/ mL oral liquid (Ensure Complete) polyethylene glycol 3350 17 gram 17 g PO DAILY #14 ea 01/31/23 oral powder packet (Miralax) albuterol sulfate 90 mcg/actuation 1 inh inhalation QID PRN shortness 02/04/23 aerosol inhaler of breath or wheezing #8.5 grams azithromycin 250 mg tablet See Rx Instructions PO .COMPLEX #6 02/04/23 (Zithromax Z-Jorge) tabs prednisone 20 mg tablet 20 mg PO BID #10 tabs 02/04/23 famotidine 40 mg/5 mL (8 mg/mL) 20 mg (2.5 mL) PO BID #50 mL 03/03/23 oral suspension ondansetron 4 mg disintegrating 4 mg PO Q8H nausea and vomiting 03/03/23 tablet #20 tabs sumatriptan 5 mg/actuation nasal 5 mg intranasal Q2-4H PRN migraine 03/03/23 spray headache #6 ea aluminum-mag hydroxide-simethicone 5 ml PO 5XD PRN indigestion #355 mL 03/05/23 200 mg-200 mg-20 mg/5 mL oral susp (Maalox Advanced) pantoprazole 40 mg granules 40 mg PO BID 30 days #60 packets 03/05/23 delayed-release for susp in packet sucralfate 100 mg/mL oral 5 ml PO QID #1,000 mL 03/05/23 suspension (Carafate) Magic Mouthwash 10 ml PO TID 2 days #240 mL 03/08/23 Diphen/Lido/Antacid 1:1:1 240 mL suspension Allergies Allergy/AdvReac Type Severity Reaction Status Date / Time tomato [TOMATO] Allergy Mild HIVES Verified 02/23/23 03:43 DIFFICULTY BREATHING hydrocodone [HYDROCODONE] Allergy Unknown RASH, Verified 02/23/23 03:43 AIRWAY CLOSES ibuprofen [From MOTRIN] Allergy Unknown STOMACH Verified 02/23/23 03:43 UPSET, vomiting trazodone [TRAZODONE] Allergy Unknown UNKNOWN, Verified 02/23/23 03:43 stomach upset black pepper [BLACK PEPPER] AdvReac Severe DIFFICULTY Verified 02/23/23 03:43 BREATHING, hives lisinopril AdvReac Severe Anaphylaxis Verified 02/23/23 03:43 Review of Systems Constitutional: Constitutional: Reports chills and Denies fever(s) Cardiovascular: Cardiovascular: Reports chest pain and Denies dyspnea Respiratory: Respiratory: Denies cough and Denies dyspnea Gastrointestinal: Gastrointestinal: Reports abdominal pain, Denies melena, Denies hematochezia, Denies coffee ground emesis, Reports diarrhea, Reports nausea and Reports vomiting Genitourinary: Genitourinary: Reports dysuria Musculoskeletal: Musculoskeletal: Denies back pain PMFSH Past Medical History 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 Diverticulosis GERD (gastroesophageal reflux disease) History of bipolar disorder History of schizophrenia Hypercholesterolemia Hypertension Insomnia Numbness of left hand Renal calculi Spondylosis of lumbar spine Type 2 diabetes mellitus with hyperglycemia Vitamin D deficiency Surgical History H/O: hysterectomy History of esophagogastroduodenoscopy (EGD) History of tubal ligation Hx of bariatric surgery Hx of colonoscopy Family History Family History Father Medical history unknown Mother Medical history unknown Paternal Aunt Uterine cancer Diabetes Hypertension Paternal Uncle Liver cancer Heart attack Maternal Aunt Stroke Family/Other Chronic mental illness Sister Uterine cancer Schizophrenia Brother Substance abuse Other Mental health disorder Social History Social History Household Members: None Housing: Apartment Do you presently have visiting nurse or other home services: Yes Alcohol intake: current Alcohol intake frequency: holidays/special occasions only Alcohol type: beer Patient Tobacco Use Status: Never used Tobacco e-Cigarette/Vaping Use: Never Used Second Hand Smoke Exposure: No Substance Use Type: Marijuana Advance Directives: No Patient : No service: No Current occupational status: disabled Current occupational exposures/hazards: No Cognitive needs: No Hearing needs: No Vision needs: No Physical Exam ED Vital Signs: Vital Signs - 24 hr 03/08/23 12:56 03/08/23 17:47 03/08/23 20:45 Temperature 98.7 F 98.4 F 97.9 F Pulse Rate 99 58 57 Respiratory Rate 18 16 16 Blood Pressure 125/90 H 134/81 115/69 Pulse Oximetry 99 98 95 Oxygen Delivery Method Room Air Room Air Room Air BMI result Body Mass Index 20.4 Const General: healthy appearing, comfortable, no acute distress, alert and awake Nutritional Appearance: well nourished Orientation/consciousness: patient oriented x3 HENMT Head: Yes normocephalic and Yes atraumatic Eyes Eyelids: Yes eyelids normal Conjunctivae: conjunctivae normal Sclerae: sclerae normal Corneas: corneas normal Pupils: Equal, round and reactive pupils present EOM: EOMs intact bilaterally Neck Neck: Yes full ROM Resp Effort & Inspection: normal respiratory effort, able to speak in complete sentences and not labored GI Other: Abdomen is soft, nondistended diffusely tender palpation without guarding or rebound Inspection: No distended Palpation (GI): Soft to palpation, not firm, no guarding and not rigid Skin General skin exam: no rashes or lesions noted and elasticity normal Neuro General: patient oriented x3 Cranial nerves: Yes Equal, round and reactive pupils present and Yes Bilaterally intact EOM present Cognition (Neuro): normal cognition Extrem Other: Moving all extremities well without any obvious deformities Course Course Course Narrative: 42yoF with a PMHx of? gastric sleeve, anxiety depression, GERD, bipolar disorder, schizophrenia, hyperlipidemia, hypertension, type 2 diabetes, hypo glycemic episodes, migraine headaches presenting to the emergency department for abdominal pain, nausea, vomiting, diarrhea, subjective fevers, Pt had endoscopy and they dilated the balloon yesterday and since then she has had subjective fevers, chills, nausea, vomiting, diarrhea, and has been unable to tolerate PO since. Admits to some pain with urination. TTP to epigastrium noted. Pt called GI doctor who informed her to come to the ER for further evaluation. VSS, pt is afebrile. I spoke to Dr. Leavitt, who recommends getting CT chest and abdomen. If everything looks stable, can give patient magic mouthwash to swallow t.i.d. x2 days. Plan: Labs, UA, CT abd, CT chest Reevaluation(s) Reevaluation #1: Patient did have an episode of hypoglycemia and was treated with IV dextrose. She reports that she has not eaten solid food in 2 days. Will recheck her sugar. Her CT scan does not show any concerning findings. She does have esophagitis/gastritis. This was discussed with her. The 1.6 cm linear and seen esophagus is likely the clip that was placed yesterday by a GI. I discussed all these findings with the patient using a warranty coordinator Time: 20:54 Medications Administered Discontinued Medications Generic Name Dose Route Start Last Admin Trade Name Freq PRN Reason Stop Dose Admin Dextrose 12.5 gm 03/08/23 20:22 03/08/23 20:42 Dextrose 50 % 25 Gm/50 Ml Syringe IVPUSH 03/08/23 20:23 12.5 gm ONCE ONE Administration Sodium Chloride 1,000 mls @ 999 mls/hr 03/08/23 17:30 03/08/23 19:26 Ns IV 03/08/23 18:30 999 mls/hr .Q1H1M OSBALDO Administration Iohexol 100 ml 03/08/23 20:06 03/08/23 20:07 Iohexol 350 Mg/Ml 100 Ml Infus..Btl IV 03/08/23 20:07 85 ml ONCE ONE Administration Morphine Sulfate 4 mg 03/08/23 17:24 03/08/23 19:25 Morphine Sulfate 4 Mg/Ml Cartridge IVPUSH 03/08/23 17:25 4 mg ONCE ONE Administration Protocol Ondansetron HCl 4 mg 03/08/23 17:24 03/08/23 19:25 Ondansetron Hcl 4 Mg/2 Ml Vial IVPUSH 03/08/23 17:25 4 mg ONCE ONE Administration Pantoprazole Sodium 40 mg 03/08/23 17:24 03/08/23 19:25 Pantoprazole Sodium 40 Mg/10 Ml Vial IVPUSH 03/08/23 17:25 40 mg ONCE ONE Administration Medical Decision Making Medical Decision Making [facility] Narrative: 42-year-old female presents for evaluation of abdominal pain, chest pain, nausea vomiting diarrhea after having an upper endoscopy procedure yesterday. GI has already been consulted by triage provider. CT scan pending. Labs reassuring, physical exam is reassuring. Patient's vital signs Differential Diagnosis Esophageal ulcer Peptic ulcer disease Postop pain Acute nausea and vomiting Gastroenteritis Esophageal perforation Stomach perforation Lab Data [facility] Lab Attestation statement: I reviewed the patient's lab results. Normal white count of 7.1. A mild anemia with a hemoglobin 11.1 and hematocrit of 34.8, however improved from most recent lab studies. Electrolytes within normal limits, patient has a BUN of 6 and a creatinine of 0.70. LFTs within normal limits. 03/08/23 14:17 03/08/23 14:17 Labs: Lab Results 03/08/23 03/08/23 03/08/23 Range/Units 14:17 14:17 20:13 WBC 7.1 (4.8-10.8) X10*3/uL RBC 4.05 L D (4.20-5.50) X10*6/uL Hgb 11.1 L (12.0-16.0) g/dl Hct 34.8 L D (37.0-47.0) % MCV 85.9 (80.0-98.0) fL MCH 27.4 (27.0-33.0) pg MCHC 31.9 (31.0-35.0) g/dl RDW 13.2 (11.0-16.0) % Plt Count 421 H D (160-400) X10*3/uL MPV 9.0 L (9.4-12.3) fL Immature Gran % (Auto) 0.3 (0.0-0.4) % Neut % (Auto) 75.0 H (45-73) % Lymph % (Auto) 16.9 L (20-40) % [place] % (Auto) 6.8 (2-11) % Eos % (Auto) 0.4 (0-4) % Baso % (Auto) 0.6 (0-2) % Lymph # (Auto) 1.2 (1.2-4.9) X10*3/uL [place] # (Auto) 0.5 (0.1-1.2) X10*3/uL Eos # (Auto) 0.0 (0.0-0.4) X10*3/uL Baso # (Auto) 0.0 (0.0-0.2) X10*3/uL Abs Immat Gran (auto) 0.02 (0.00-0.03) X10*3/uL Absolute Neuts (auto) 5.3 (2.0-8.3) x10*3/uL Absolute Nucleated RBC 0.000 (0.0-0.012) X10*3/uL Nucleated RBC % (auto) 0.0 (0.0-0.2) /100WBC Sodium 139 (135-145) mmol/L Potassium 4.2 (3.3-5.1) mmol/L Chloride 106 (96-108) mmol/L Carbon Dioxide 28 (22-29) mmol/L Anion Gap 9 L (12-20) BUN 6 L (9-16) mg/dL Creatinine 0.70 (0.5-1.4) mg/dL Estim Creat Clear Calc 79.0 Estimated GFR > 60 POC Glucose 55 L* (60-115) mg/dL Random Glucose 94 (60-115) mg/dL Calcium 9.2 D (8.4-10.2) mg/dL Magnesium 2.2 (1.6-2.6) mg/dL Total Bilirubin 0.6 (0.0-1.0) mg/dL Direct Bilirubin 0.2 (0.0-0.5) mg/dL AST 12 (5-31) U/L ALT 9 (0-31) U/L Alkaline Phosphatase 64 (39-117) U/L Total Protein 7.6 (6.5-8.0) g/dL Albumin 4.4 (3.5-5.0) g/dL Lipase 14 (8-78) U/L Discharge Plan Discharge Clinical Impression: Gastritis Patient Disposition: Home, Self-Care Instructions: Gastritis (ED) Additional Instructions: Your CT scans not show any emergent findings The clip that was placed yesterday was visualized on the CT scan You do have a degree of esophagitis and gastritis It is recommended that you take the Magic mouthwash 3 times a day and swallow the medication for the next 2 days Continue with your pantoprazole as well Follow-up with your primary doctor as well as Dr. Leavitt Prescriptions: New Magic Mouthwash Diphen/Lido/Antacid 1:1:1 240 mL suspension 10 ml PO TID 2 Days Qty: 240 0RF Rx Instructions: Lidocaine Viscous 2 % 80mL; diphenhydramine 12.5 mg/5 mL 80mL; aluminum-mag hydrox-simeth [id number]/5mL 80mL. swallow the medication No Action (DME) blood pressure monitor [Blood Pressure Kit] Kit See Rx Instructions .Route Qty: 1 0RF Rx Instructions: As directed (DME) CANE See Rx Instructions .Route .MEDSUPPLY Qty: 1 0RF Rx Instructions: As directed (DME) WRIST BRACE See Rx Instructions .Route .MEDSUPPLY Qty: 1 0RF Rx Instructions: As directed (DME) BATH CHAIR See Rx Instructions .Route .MEDSUPPLY Qty: 1 0RF Rx Instructions: As directed ([facility]) LIFELINE ALERT SYSTEM See Rx Instructions .Route .MEDSUPPLY Qty: 1 0RF Rx Instructions: As directed (DME) ALCOHOL PADS See Rx Instructions .Route .MEDSUPPLY Qty: 100 3RF Rx Instructions: As directed (DME) ROLLATOR See Rx Instructions .Route .MEDSUPPLY Qty: 1 0RF Rx Instructions: As directed (DME) WRIST SPLINT Right and Left hand See Rx Instructions .Route .MEDSUPPLY Qty: 1 0RF Rx Instructions: As directed (DME) SHOWER WAND See Rx Instructions .Route .MEDSUPPLY Qty: 1 0RF Rx Instructions: As directed (DME) SHOWER BAR See Rx Instructions .Route .MEDSUPPLY Qty: 1 0RF Rx Instructions: As directed (DME) Bedside commode See Rx Instructions .Route .MEDSUPPLY Qty: 1 0RF Rx Instructions: As directed (DME) Bed pads See Rx Instructions .Route .MEDSUPPLY Qty: 100 12RF Rx Instructions: As directed (DME) SANITARY PADS See Rx Instructions .Route .MEDSUPPLY Qty: 100 12RF Rx Instructions: As directed simethicone 40 mg/0.6 mL drops,suspension 0.6 ml PO BID-TID PRN (Reason: abdominal distention) Qty: 15 0RF tramadol 50 mg tablet 50 mg PO Q6H PRN (Reason: pain) 30 Days Qty: 60 1RF Ensure Complete 0.1 gram-1.18 kcal/mL liquid 1 ea PO TID Qty: 1184 12RF polyethylene glycol 3350 [Miralax] 17 gram powder in packet 17 g PO DAILY Qty: 14 3RF Rx Instructions: Use daily until you have a normal bowel movement, then stop. alum-mag hydroxide-simeth [Maalox Advanced] 200-200-20 mg/5 mL suspension 5 ml PO 5XD PRN (Reason: indigestion) Qty: 355 0RF Rx Instructions: administer between meals and at bedtime pantoprazole [address] for susp in packet 40 mg PO BID 30 Days Qty: 60 5RF sucralfate [Carafate] 100 mg/mL suspension 5 ml PO QID Qty: 1000 0RF Rx Instructions: swish in mouth and swallow; use after food/drink pstoojctl-tvgdst-qriczctv-scop [] 16.2 mg-0.1037 mg/5 mL (5 mL) elixir 5 ml PO BID PRN (Reason: indigestion) Qty: 50 0RF ondansetron 4 mg tablet,disintegrating 4 mg PO Q8H PRN (Reason: nausea and vomiting) Qty: 10 0RF acetaminophen 500 mg/15 mL liquid 1,000 mg PO Q6H PRN (Reason: pain) Qty: 1000 0RF ondansetron 4 mg tablet,disintegrating 4 mg PO Q8H Qty: 20 0RF famotidine 40 mg/5 mL (8 mg/mL) suspension 20 mg PO BID Qty: 50 3RF sumatriptan 5 mg/actuation spray,non-aerosol 5 mg intranasal Q2-4H PRN (Reason: migraine headache) Qty: 6 1RF Rx Instructions: into each nostril once; if headache remains, may repeat total dose once after at least 2 hours azithromycin [Zithromax Z-Jorge] 250 mg tablet See Rx Instructions .ROUTE .COMPLEX Qty: 6 0RF Rx Instructions: For 250 mg dose pack: take 500 mg today (day 1), then 250 mg for 4 days (days 2-5) prednisone 20 mg tablet 20 mg PO BID Qty: 10 0RF albuterol sulfate 90 mcg/actuation HFA aerosol inhaler 1 inh inhalation QID PRN (Reason: shortness of breath or wheezing) Qty: 8.5 0RF fluticasone propionate [Flonase Allergy Relief] 50 mcg/actuation spray,suspension 1 spray intranasal DAILY Qty: 100 0RF Rx Instructions: administer into each nostril (DME) blood-glucose meter [OneTouch Verio Meter] Misc See Rx Instructions .Route Rx Instructions: As directed (DME) OneTouch Verio test strips Strip See Rx Instructions .Route Rx Instructions: As directed 3 times a day (DME) lancets [OneTouch Delica Lancets] 33 gauge misc See Rx Instructions .Route Rx Instructions: As directed 3 times a day zolpidem 10 mg tablet 10 mg PO BEDTIME PRN triamcinolone acetonide 0.1 % cream topical omeprazole 40 mg capsule,delayed release(DR/EC) 40 mg PO DAILY
[2023-03-08 12:56] VITALS: BP 125/90; PULSE 99; RESP 18; TEMP 37.1; O2SAT 99; BMI 20.4
[2023-03-08 14:20] LABS: MANUAL DIFF FLAG NO
[2023-03-08 14:24] LABS: Basophils Percent Auto 0.6 % (0-2); Eosinophils Percent Auto 0.4 % (0-4); Hematocrit 34.8 % (37.0-47.0); Hemoglobin 11.1 g/dl (12.0-16.0); Imm Gran Abs Auto 0.02 X10*3/uL (0.00-0.03); Imm Gran Pct Auto 0.3 % (0.0-0.4); Lymphocytes Absolute Auto 1.2 X10*3/uL (1.2-4.9); Lymphocytes Percent Auto 16.9 % (20-40); Mean Corpuscular HGB Conc 31.9 g/dl (31.0-35.0); Mean Corpuscular Hemoglobin 27.4 pg (27.0-33.0); Mean Corpuscular Volume 85.9 fL (80.0-98.0); Monocytes Absolute Auto 0.5 X10*3/uL (0.1-1.2); Monocytes Percent Auto 6.8 % (2-11); Neutrophils Absolute Auto 5.3 x10*3/uL (2.0-8.3); Platelet Count 421 X10*3/uL (160-400); Red Blood Count 4.05 X10*6/uL (4.20-5.50); Red Cell Distribution Width 13.2 % (11.0-16.0); White Blood Count 7.1 X10*3/uL (4.8-10.8)
[2023-03-08 14:37] LABS: Alanine Aminotransferase 9 U/L (0-31); Albumin Level 4.4 g/dL (3.5-5.0); Alkaline Phosphatase 64 U/L (39-117); Anion Gap 9 (12-20); Aspartate Amino Transferase 12 U/L (5-31); Bilirubin Direct 0.2 mg/dL (0.0-0.5); Bilirubin Total 0.6 mg/dL (0.0-1.0); Blood Urea Nitrogen 6 mg/dL (9-16); Calcium 9.2 mg/dL (8.4-10.2); Carbon Dioxide 28 mmol/L (22-29); Chloride 106 mmol/L (96-108); Estimated Glomerular Filt Rate > 60; Glucose Random 94 mg/dL (60-115); Lipase 14 U/L (8-78); Magnesium 2.2 mg/dL (1.6-2.6); Potassium 4.2 mmol/L (3.3-5.1); Sodium 139 mmol/L (135-145); Total Protein 7.6 g/dL (6.5-8.0)
[2023-03-08 17:47] VITALS: BP 134/81; PULSE 58; RESP 16; TEMP 36.9; O2SAT 98
[2023-03-08] MEDS: Morphine Sulfate 4 MG/ML CARTRIDGE IVPUSH (19:25)
[2023-03-08] MEDS: Pantoprazole Sodium 40 MG/10 ML VIAL IVPUSH (19:25)
[2023-03-08] MEDS: ondansetron HCL 4 MG/2 ML VIAL IVPUSH (19:25)
[2023-03-08] MEDS: 0.9 % Sodium Chloride 1,000 ML 999 ML IV (19:26)
[2023-03-08] MEDS: iohexoL 350 MG/ML 100 ML INFUS..BTL IV (20:07)
--- NOTE | 2023-03-08 20:08 | PC.NURSE ---
I assumed care of the pt at 1900. Pt resting quietly in bed, complaining of 10/10 abd pain with nausea and vomiting. Pt is A&Ox4, GCS 15, with warm, dry skin. I placed a 20g IV in the right forearm, administered medications per MAR, and started fluids. Pt was taken to CT and is now back in the room, stating decreased pain. Pt is waiting CT results at this time.
[2023-03-08 20:17] LABS: Glucose, Whole Blood 55 mg/dL (60-115)
[2023-03-08] MEDS: Dextrose 50 % 25 GM/50 ML SYRINGE IVPUSH (20:42)
[2023-03-08 20:45] VITALS: BP 115/69; PULSE 57; RESP 16; TEMP 36.6; O2SAT 95
[2023-03-08] MEDS: Mag&Al/Sim/Diphenhyd/Lidocaine 10 ML ORAL.SUSP PO (21:03)
[2023-03-08 21:14] LABS: Glucose, Whole Blood 146 mg/dL (60-115)
== END 2023-03-08 22:14 | disposition home or self-care (01) ==
PROVIDERS: Physician Assistant Medical; Emergency Provider Emergency Medicine Emergency Medical Services; PCP Internal Medicine
DX: K29.70 Gastritis, unspecified, without bleeding (principal); R19.7 Diarrhea, unspecified; M54.6 Pain in thoracic spine; Z79.899 Other long term (current) drug therapy; Z98.84 Bariatric surgery status
CPT/HCPCS: 36415; 71260; 74177; 80048; 80076; 82947; 83690; 83735; 85025; 96361; 96374; 96375; 99284; J2270; J2405; Q9967

== ENCOUNTER 2023-03-16 15:29 | Emergency (ER) | payer OTHER, SELFPAY ==
[2023-03-16 15:31] VITALS: BP 120/74; PULSE 99; RESP 18; TEMP 36.6; O2SAT 98; BMI 20.2
--- NOTE | 2023-03-16 15:31 | ED.GENADULT ---
HPI - General Adult General Chief complaint: Abdominal Pain Stated complaint: V/d/throat pain/diff breathing Time Seen by Provider: 03/16/23 22:35 Source: patient Mode of arrival: ambulatory Limitations: no limitations History of Present Illness HPI narrative: 42-year-old female with a gastric sleeve presents the emergency department with multiple complaints including upper abdominal pain, nausea, increasing reflux. Since her surgery about a year ago, she has had severe problems. She is in the emergency department multiple times per month. Today she notes 3 days of symptoms including nausea, vomiting, diarrhea, upper abdominal pain, increasing reflux. Symptoms at times do appear to be worse with drinking or eating. There is no clear relieving features. She has tried Zofran without significant improvement at this time. She had denies any fevers but has had chills. She does report a feeling like it is difficult swallowing like as if she had pharyngitis. She also reports a mucus production that she believes is coming from the lower esophagus. Patient recently had an upper endoscopy but she has not yet heard the results. She is due to follow-up with her sales account associate/bariatric surgeon this coming week. Related Data Home Medications Medication Instructions Recorded Confirmed blood sugar diagnostic (OneTouch 08/15/22 02/01/23 Verio test strips) blood-glucose meter (OneTouch 08/15/22 02/01/23 Verio Meter) lancets 33 gauge (OneTouch Delica 08/15/22 02/01/23 Lancets) triamcinolone acetonide 0.1 % appl topical 02/07/23 topical cream zolpidem 10 mg tablet 10 mg PO BEDTIME PRN 02/07/23 Previous Rx's Medication Instructions Recorded blood pressure monitor (Blood #1 ea 10/31/21 Pressure Kit) BATH CHAIR #1 ea 01/31/22 CANE #1 ea 01/31/22 LIFELINE ALERT SYSTEM #1 ea 01/31/22 WRIST BRACE #1 ea 01/31/22 ALCOHOL PADS #100 ea 02/21/22 ROLLATOR #1 ea 05/23/22 WRIST SPLINT Right and Left hand #1 ea 05/30/22 SHOWER BAR #1 ea 06/08/22 SHOWER WAND #1 ea 06/08/22 Bed pads #100 ea 07/17/22 Bedside commode #1 ea 07/17/22 SANITARY PADS #100 ea 07/17/22 fluticasone propionate 50 1 spray intranasal DAILY #100 mL 07/27/22 mcg/actuation nasal spray,suspension (Flonase Allergy Relief) simethicone 40 mg/0.6 mL oral 0.6 ml PO BID-TID PRN abdominal 11/08/22 drops,suspension distention #15 mL tramadol 50 mg tablet 50 mg PO Q6H PRN pain 30 days #60 01/22/23 tabs acetaminophen 500 mg/15 mL oral 1,000 mg (30 mL) PO Q6H PRN pain 01/25/23 liquid #1,000 mL ondansetron 4 mg disintegrating 4 mg PO Q8H PRN nausea and 01/25/23 tablet vomiting #10 tabs zeqjaqvca-pgjxtiysx-zntkbusm-scop 5 ml PO BID PRN indigestion #50 mL 01/25/23 16.2 mg-0.1037 mg/5 mL (5 mL) elixir () food supplemt, lactose-reduced 0.1 1 ea PO TID #1,184 mL 01/29/23 gram-1.18 kcal/ mL oral liquid (Ensure Complete) polyethylene glycol 3350 17 gram 17 g PO DAILY #14 ea 01/31/23 oral powder packet (Miralax) albuterol sulfate 90 mcg/actuation 1 inh inhalation QID PRN shortness 02/04/23 aerosol inhaler of breath or wheezing #8.5 grams azithromycin 250 mg tablet See Rx Instructions PO .COMPLEX #6 02/04/23 (Zithromax Z-Jorge) tabs prednisone 20 mg tablet 20 mg PO BID #10 tabs 02/04/23 famotidine 40 mg/5 mL (8 mg/mL) 20 mg (2.5 mL) PO BID #50 mL 03/03/23 oral suspension ondansetron 4 mg disintegrating 4 mg PO Q8H nausea and vomiting 03/03/23 tablet #20 tabs sumatriptan 5 mg/actuation nasal 5 mg intranasal Q2-4H PRN migraine 03/03/23 spray headache #6 ea Magic Mouthwash 10 ml PO TID 2 days #240 mL 03/09/23 Diphen/Lido/Antacid 1:1:1 240 mL suspension lansoprazole 30 mg delayed 30 mg PO DAILY #30 tabs 03/09/23 release,disintegrating tablet (Prevacid SoluTab) lansoprazole 30 mg capsule,delayed 30 mg PO DAILY #30 caps 03/14/23 release (Prevacid) Miracle Mouthwash-Alan 240 mL 15 ml PO BID #240 mL 03/16/23 liquid aluminum-mag hydroxide-simethicone 5 ml PO 5XD PRN indigestion #355 mL 03/16/23 200 mg-200 mg-20 mg/5 mL oral susp (Maalox Advanced) nerevmoiv-onolatlbu-gofjtqky-scop 5 ml PO BID PRN indigestion #50 mL 03/16/23 16.2 mg-0.1037 mg/5 mL (5 mL) elixir () prochlorperazine 25 mg rectal 25 mg ID Q12H PRN nausea and 03/16/23 suppository (Compro) vomiting #12 ea sucralfate 100 mg/mL oral 5 ml PO QID #1,000 mL 03/16/23 suspension (Carafate) Allergies Allergy/AdvReac Type Severity Reaction Status Date / Time tomato [TOMATO] Allergy Mild HIVES Verified 03/16/23 15:31 DIFFICULTY BREATHING hydrocodone [HYDROCODONE] Allergy Unknown RASH, Verified 03/16/23 15:31 AIRWAY CLOSES ibuprofen [From MOTRIN] Allergy Unknown STOMACH Verified 03/16/23 15:31 UPSET, vomiting trazodone [TRAZODONE] Allergy Unknown UNKNOWN, Verified 03/16/23 15:31 stomach upset black pepper [BLACK PEPPER] AdvReac Severe DIFFICULTY Verified 03/16/23 15:31 BREATHING, hives lisinopril AdvReac Severe Anaphylaxis Verified 03/16/23 15:31 Review of Systems Review of Systems: CONSTITUTIONAL: Denies weight loss, fever and chills. HEENT: Denies changes in vision and hearing. RESPIRATORY: Denies SOB and cough. CV: Denies palpitations no CP. GI: + abdominal pain, nausea, vomiting and diarrhea. : Denies dysuria and urinary frequency. MSK: Denies myalgia and joint pain. SKIN: Denies rash and pruritus. NEUROLOGICAL: Denies headache and syncope. PSYCHIATRIC: Denies recent changes in mood. Denies anxiety and depression. 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 Diverticulosis GERD (gastroesophageal reflux disease) History of bipolar disorder History of schizophrenia Hypercholesterolemia Hypertension Insomnia Numbness of left hand Renal calculi Spondylosis of lumbar spine Type 2 diabetes mellitus with hyperglycemia Vitamin D deficiency Surgical History H/O: hysterectomy History of esophagogastroduodenoscopy (EGD) History of tubal ligation Hx of bariatric surgery Hx of colonoscopy Family History Family History Father Medical history unknown Mother Medical history unknown Paternal Aunt Uterine cancer Diabetes Hypertension Paternal Uncle Liver cancer Heart attack Maternal Aunt Stroke Family/Other Chronic mental illness Sister Uterine cancer Schizophrenia Brother Substance abuse Other Mental health disorder Social History Social History Household Members: None Housing: Apartment Do you presently have visiting nurse or other home services: Yes Alcohol intake: current Alcohol intake frequency: holidays/special occasions only Alcohol type: beer Patient Tobacco Use Status: Never used Tobacco e-Cigarette/Vaping Use: Never Used Second Hand Smoke Exposure: No Substance Use Type: Marijuana Advance Directives: No Advance Directives Information Provided: No service: No Current occupational status: disabled Current occupational exposures/hazards: No Cognitive needs: No Hearing needs: No Vision needs: No Physical Exam ED Vital Signs: Vital Signs - 24 hr 03/16/23 15:31 03/16/23 20:08 Temperature 98 F 98.7 F Pulse Rate 99 58 Respiratory Rate 18 16 Blood Pressure 120/74 126/84 Pulse Oximetry 98 Oxygen Delivery Method Room Air Room Air BMI result Body Mass Index 20.2 GEN: Well developed, no acute distress, alert, oriented HEENT: Normocephalic, atraumatic, normal external ears, nose appears normal, no oropharyngeal edema or exudates Eyes: Normal to appearance Neck: Supple, no lymphadenopathy Respiratory: Talks in complete sentences, no respiratory distress, clear to auscultation bilaterally Cardiovascular: Regular rate and rhythm, no murmurs rubs or gallops Abdomen: Soft, nontender, nondistended, no guarding, no rebound Back: No CVA tenderness Extremities: No clubbing cyanosis or edema Neurologic: No focal neurologic deficits, cranial nerves 2-12 intact, strength is 5/5 bilaterally Skin: No rash Course Course Course Narrative: RME performed by Lolly Thacker PA-C. Patient is a 42 year old assigned female at presenting to the emergency department with nausea and vomiting. Labs ordered. Patient placed back in the waiting room pending room availability and results. Medical Decision Making Medical Decision Making [facility] Narrative: 42-year-old female with history of gastric bypass, frequent visits to the emergency department presents with nausea, vomiting, abdominal pain, sore throat, reflux, diarrhea. Exam was benign. There is no evidence of acute pharyngitis. Her belly was fairly benign. Will check laboratory analysis is make sure there is no significant dehydration. Differential diagnosis includes complications from bypass, gastroenteritis, gastric motility, IBS, IBD, [place]ol[place] Differential Diagnosis Differential Diagnoses: The differential diagnosis associated with the presentation includes (See above) Admission/Observation Consideration of admission/observation: Escalation of care including admission/observation considered Lab Data [facility] Lab Attestation statement: I reviewed the patient's lab results. 03/16/23 15:56 03/16/23 15:56 Labs: Lab Results 03/16/23 03/16/23 Range/Units 15:56 15:56 WBC 6.3 (4.8-10.8) X10*3/uL RBC 3.80 L (4.20-5.50) X10*6/uL Hgb 10.4 L (12.0-16.0) g/dl Hct 31.6 L (37.0-47.0) % MCV 83.2 (80.0-98.0) fL MCH 27.4 (27.0-33.0) pg MCHC 32.9 (31.0-35.0) g/dl RDW 13.1 (11.0-16.0) % Plt Count TNP MPV Not Reportable Immature Gran % (Auto) 0.8 H (0.0-0.4) % Neut % (Auto) 64.9 (45-73) % Lymph % (Auto) 23.1 (20-40) % [place] % (Auto) 8.8 (2-11) % Eos % (Auto) 1.1 (0-4) % Baso % (Auto) 1.3 (0-2) % Lymph # (Auto) 1.5 (1.2-4.9) X10*3/uL [place] # (Auto) 0.6 (0.1-1.2) X10*3/uL Eos # (Auto) 0.1 (0.0-0.4) X10*3/uL Baso # (Auto) 0.1 (0.0-0.2) X10*3/uL Abs Immat Gran (auto) 0.05 H (0.00-0.03) X10*3/uL Absolute Neuts (auto) 4.1 (2.0-8.3) x10*3/uL Absolute Nucleated RBC 0.020 H (0.0-0.012) X10*3/uL Nucleated RBC % (auto) 0.3 H (0.0-0.2) /100WBC Smear Tech's Comments VERIFIED Sodium 142 (135-145) mmol/L Potassium 4.2 (3.3-5.1) mmol/L Chloride 107 (96-108) mmol/L Carbon Dioxide 26 (22-29) mmol/L Anion Gap 13 (12-20) BUN 10 (9-16) mg/dL Creatinine 0.65 (0.5-1.4) mg/dL Estim Creat Clear Calc 85.0 Estimated GFR > 60 Random Glucose 95 (60-115) mg/dL Calcium 9.5 (8.4-10.2) mg/dL Magnesium 2.1 (1.6-2.6) mg/dL Total Bilirubin 0.4 (0.0-1.0) mg/dL AST 14 (5-31) U/L ALT 8 (0-31) U/L Alkaline Phosphatase 70 (39-117) U/L Total Protein 7.4 (6.5-8.0) g/dL Albumin 4.5 (3.5-5.0) g/dL Prescription Management I considered prescription management with: Pain Medication Discharge Plan Discharge Clinical Impression: Gastritis, GERD (gastroesophageal reflux disease) Patient Disposition: Home, Self-Care Instructions: Gastritis (DC), Diet for Stomach Ulcers and Gastritis (ED), Gastroesophageal Reflux Disease (ED) Prescriptions: New prochlorperazine [Compro] 25 mg suppository 25 mg ID Q12H PRN (Reason: nausea and vomiting) Qty: 12 0RF Miracle Mouthwash-Alan 240 mL liquid 15 ml PO BID Qty: 240 0RF Rx Instructions: Nystatin susp 80 mL;Lidocaine 2% Visc 80 mL; Maalox 80 mL; Swish and spit hpkizsxay-bmjntq-ocqlhxit-scop [] 16.2 mg-0.1037 mg/5 mL (5 mL) elixir 5 ml PO BID PRN (Reason: indigestion) Qty: 50 0RF No Action (DME) blood pressure monitor [Blood Pressure Kit] Kit See Rx Instructions .Route Qty: 1 0RF Rx Instructions: As directed (DME) CANE See Rx Instructions .Route .MEDSUPPLY Qty: 1 0RF Rx Instructions: As directed (DME) WRIST BRACE See Rx Instructions .Route .MEDSUPPLY Qty: 1 0RF Rx Instructions: As directed (DME) BATH CHAIR See Rx Instructions .Route .MEDSUPPLY Qty: 1 0RF Rx Instructions: As directed (DME) LIFELINE ALERT SYSTEM See Rx Instructions .Route .MEDSUPPLY Qty: 1 0RF Rx Instructions: As directed (DME) ALCOHOL PADS See Rx Instructions .Route .MEDSUPPLY Qty: 100 3RF Rx Instructions: As directed (DME) ROLLATOR See Rx Instructions .Route .MEDSUPPLY Qty: 1 0RF Rx Instructions: As directed (DME) WRIST SPLINT Right and Left hand See Rx Instructions .Route .MEDSUPPLY Qty: 1 0RF Rx Instructions: As directed (DME) SHOWER WAND See Rx Instructions .Route .MEDSUPPLY Qty: 1 0RF Rx Instructions: As directed (DME) SHOWER BAR See Rx Instructions .Route .MEDSUPPLY Qty: 1 0RF Rx Instructions: As directed (DME) Bedside commode See Rx Instructions .Route .MEDSUPPLY Qty: 1 0RF Rx Instructions: As directed (DME) Bed pads See Rx Instructions .Route .MEDSUPPLY Qty: 100 12RF Rx Instructions: As directed (DME) SANITARY PADS See Rx Instructions .Route .MEDSUPPLY Qty: 100 12RF Rx Instructions: As directed simethicone 40 mg/0.6 mL drops,suspension 0.6 ml PO BID-TID PRN (Reason: abdominal distention) Qty: 15 0RF tramadol 50 mg tablet 50 mg PO Q6H PRN (Reason: pain) 30 Days Qty: 60 1RF Ensure Complete 0.1 gram-1.18 kcal/mL liquid 1 ea PO TID Qty: 1184 12RF polyethylene glycol 3350 [Miralax] 17 gram powder in packet 17 g PO DAILY Qty: 14 3RF Rx Instructions: Use daily until you have a normal bowel movement, then stop. Magic Mouthwash Diphen/Lido/Antacid 1:1:1 240 mL suspension 10 ml PO TID 2 Days Qty: 240 0RF Rx Instructions: Lidocaine Viscous 2 % 80mL; diphenhydramine 12.5 mg/5 mL 80mL; aluminum-mag hydrox-simeth [id number]/5mL 80mL. swallow the medication lansoprazole [Prevacid SoluTab] 30 mg tablet,disintegrat, delay rel 30 mg PO DAILY Qty: 30 0RF lansoprazole [Prevacid] 30 mg capsule,delayed release(DR/EC) 30 mg PO DAILY Qty: 30 0RF sucralfate [Carafate] 100 mg/mL suspension 5 ml PO QID Qty: 1000 0RF Rx Instructions: swish in mouth and swallow; use after food/drink alum-mag hydroxide-simeth [Maalox Advanced] 200-200-20 mg/5 mL suspension 5 ml PO 5XD PRN (Reason: indigestion) Qty: 355 0RF Rx Instructions: administer between meals and at bedtime kbidzpcfs-jtzqvz-kjvvdedc-scop [] 16.2 mg-0.1037 mg/5 mL (5 mL) elixir 5 ml PO BID PRN (Reason: indigestion) Qty: 50 0RF ondansetron 4 mg tablet,disintegrating 4 mg PO Q8H PRN (Reason: nausea and vomiting) Qty: 10 0RF acetaminophen 500 mg/15 mL liquid 1,000 mg PO Q6H PRN (Reason: pain) Qty: 1000 0RF ondansetron 4 mg tablet,disintegrating 4 mg PO Q8H Qty: 20 0RF famotidine 40 mg/5 mL (8 mg/mL) suspension 20 mg PO BID Qty: 50 3RF sumatriptan 5 mg/actuation spray,non-aerosol 5 mg intranasal Q2-4H PRN (Reason: migraine headache) Qty: 6 1RF Rx Instructions: into each nostril once; if headache remains, may repeat total dose once after at least 2 hours azithromycin [Zithromax Z-Jorge] 250 mg tablet See Rx Instructions .ROUTE .COMPLEX Qty: 6 0RF Rx Instructions: For 250 mg dose pack: take 500 mg today (day 1), then 250 mg for 4 days (days 2-5) prednisone 20 mg tablet 20 mg PO BID Qty: 10 0RF albuterol sulfate 90 mcg/actuation HFA aerosol inhaler 1 inh inhalation QID PRN (Reason: shortness of breath or wheezing) Qty: 8.5 0RF fluticasone propionate [Flonase Allergy Relief] 50 mcg/actuation spray,suspension 1 spray intranasal DAILY Qty: 100 0RF Rx Instructions: administer into each nostril (DME) blood-glucose meter [OneTouch Verio Meter] Misc See Rx Instructions .Route Rx Instructions: As directed (DME) OneTouch Verio test strips Strip See Rx Instructions .Route Rx Instructions: As directed 3 times a day (DME) lancets [OneTouch Delica Lancets] 33 gauge misc See Rx Instructions .Route Rx Instructions: As directed 3 times a day zolpidem 10 mg tablet 10 mg PO BEDTIME PRN triamcinolone acetonide 0.1 % cream topical Referrals: Po,Deirdre Raymundo MD [Primary Care Provider] - 2 days
[2023-03-16 16:19] LABS: Alanine Aminotransferase 8 U/L (0-31); Albumin Level 4.5 g/dL (3.5-5.0); Alkaline Phosphatase 70 U/L (39-117); Anion Gap 13 (12-20); Aspartate Amino Transferase 14 U/L (5-31); Bilirubin Total 0.4 mg/dL (0.0-1.0); Blood Urea Nitrogen 10 mg/dL (9-16); Calcium 9.5 mg/dL (8.4-10.2); Carbon Dioxide 26 mmol/L (22-29); Chloride 107 mmol/L (96-108); Estimated Glomerular Filt Rate > 60; Glucose Random 95 mg/dL (60-115); Magnesium 2.1 mg/dL (1.6-2.6); Potassium 4.2 mmol/L (3.3-5.1); Sodium 142 mmol/L (135-145); Total Protein 7.4 g/dL (6.5-8.0)
[2023-03-16 16:22] LABS: Basophils Absolute Auto 0.1 X10*3/uL (0.0-0.2); Basophils Percent Auto 1.3 % (0-2); Eosinophils Absolute Auto 0.1 X10*3/uL (0.0-0.4); Eosinophils Percent Auto 1.1 % (0-4); Hematocrit 31.6 % (37.0-47.0); Hemoglobin 10.4 g/dl (12.0-16.0); Imm Gran Abs Auto 0.05 X10*3/uL (0.00-0.03); Imm Gran Pct Auto 0.8 % (0.0-0.4); Lymphocytes Absolute Auto 1.5 X10*3/uL (1.2-4.9); Lymphocytes Percent Auto 23.1 % (20-40); MANUAL DIFF FLAG SCAN; Mean Corpuscular HGB Conc 32.9 g/dl (31.0-35.0); Mean Corpuscular Hemoglobin 27.4 pg (27.0-33.0); Mean Corpuscular Volume 83.2 fL (80.0-98.0); Monocytes Absolute Auto 0.6 X10*3/uL (0.1-1.2); Monocytes Percent Auto 8.8 % (2-11); NRBC Pct Auto 0.3 /100WBC (0.0-0.2); Neutrophils Absolute Auto 4.1 x10*3/uL (2.0-8.3); Neutrophils Percent Auto 64.9 % (45-73); PLT CLUMP 1; Red Cell Distribution Width 13.1 % (11.0-16.0); SCAN SMEAR FLAG 1
[2023-03-16 16:30] LABS: White Blood Count 6.3 X10*3/uL (4.8-10.8)
[2023-03-16 16:31] LABS: SLIDE REVIEW VERIFIED
[2023-03-16 20:08] VITALS: BP 126/84; PULSE 58; RESP 16; TEMP 37.1
[2023-03-16] MEDS: PHENobarb/Hyoscy/Atropine/Scop 10 ML ELIXIR PO (23:15)
[2023-03-16] MEDS: Magnesium Hydrox/Alum Hydrox 30 ML ORAL.SUSP PO (23:15)
[2023-03-16 23:22] VITALS: BP 135/67; PULSE 54; RESP 16; TEMP 36.6; O2SAT 100
== END 2023-03-17 00:22 | disposition home or self-care (01) ==
PROVIDERS: Physician Assistant Medical; Emergency Provider Emergency Medicine; PCP Internal Medicine
DX: K29.70 Gastritis, unspecified, without bleeding (principal); K21.9 Gastro-esophageal reflux disease without esophagitis; R10.10 Upper abdominal pain, unspecified; I10 Essential (primary) hypertension; E78.00 Pure hypercholesterolemia, unspecified; K31.2 Hourglass stricture and stenosis of stomach; Z90.3 Acquired absence of stomach [part of]
CPT/HCPCS: 36415; 80053; 83735; 85025; 99283; 99284

== ENCOUNTER 2023-03-20 14:24 | Emergency (ER) | payer OTHER, SELFPAY ==
--- NOTE | ~2023-03-20 | CT_ITS ---
EXAMINATION: CT ABDOMEN AND PELVIS WITH CONTRAST CLINICAL INFORMATION: Left lower quadrant tenderness. COMPARISON: CT abdomen/pelvis 03/08/2023. TECHNIQUE: Multidetector volumetric images were obtained from the superior aspect of the liver through the pubic symphysis following administration 85 mL of Omnipaque 350 intravenous contrast. Sagittal and coronal reformatted images were obtained on the technologist's workstation. Oral contrast: No This CT examination was performed using dose optimization techniques as appropriate, variously including the following: *Automated exposure control *Adjustment of mA and/or kV according to patient size (this includes techniques or standardized protocols for targeted exams where dose is matched to indication/reason for exam; i.e. extremities or head) *Use of iterative reconstruction technique DLP: 267 mGy-cm FINDINGS: LUNG BASES: No focal consolidation or pleural effusion. LIVER, GALLBLADDER, AND BILIARY TREE: Scattered too small to characterize liver hypodensities are not significantly changed dating back to 05/31/2022. The liver is normal in size, shape and attenuation. Normal CT appearance of the gallbladder. No biliary ductal dilatation. PANCREAS: No peripancreatic free fluid or fat stranding. No main duct dilatation. SPLEEN: Heterogeneous attenuation of the parenchyma related with physiologic activity secondary to earlier timing of IV contrast. Normal size. ADRENAL GLANDS: No adrenal mass. KIDNEYS AND URETERS: The kidneys are normal in size, shape, and attenuation. No hydronephrosis, hydroureter, or calculi seen. No perinephric stranding. BLADDER: Unremarkable. GASTROINTESTINAL TRACT: Postsurgical changes from gastric sleeve. Segment of wall thickening just distal to the surgical casey in the antropyloric region with low mural attenuation measuring approximately up to 1 cm in thickness (image 24 series 3) is not significantly changed compared to 03/08/2023. Fecalization of loops of small bowel in the left upper quadrant. Mild fluid distention of several loops of small bowel in the right lower quadrant (3:60). Normal appendix. Mild colonic diverticulosis without significant pericolonic fat stranding/free fluid. Mild to moderate amount of stool content throughout the colon. No evidence of bowel obstruction. ABDOMINAL WALL: No significant hernia is appreciated. LYMPH NODES: Limited evaluation due to paucity of abdominal fat, no discrete lymphadenopathy. VASCULAR: Atherosclerotic disease. Normal caliber abdominal aorta. PELVIC VISCERA: Hysterectomy. No pelvic mass. OSSEOUS STRUCTURES: No acute or aggressive appearing osseous abnormalities. Degenerative changes of the spine. CT/CT abdomen pelvis w IV con IMPRESSION: 1. Stable wall thickening of the antropyloric region with low attenuation of the submucosa suggesting edema, recommend clinical correlation for gastritis/peptic ulcer disease and if indicated further evaluation with an outpatient upper endoscopy. 2. Mild fluid distention of several loops of small bowel in the right lower quadrant which could be seen with gastroenteritis in the appropriate clinical context. 3. Mild colonic diverticulosis but no evidence of acute diverticulitis. 4. Fecalization of loops of small bowel in the left upper quadrant suggesting slow transit. No evidence of bowel obstruction.
--- NOTE | ~2023-03-20 | XR_ITS ---
EXAMINATION: XR LUMBOSACRAL SPINE CLINICAL INFORMATION: Low back pain. COMPARISON: Lumbar spine radiographs dated 06/14/2022. TECHNIQUE: Three views of the lumbosacral spine. FINDINGS: Mild lumbar levoscoliosis is seen with apex at L3. There is normal lumbar lordosis and spinal alignment. The vertebral bodies are intact. The intervertebral disc spaces are unremarkable. The soft tissues are unremarkable. XR/XR lumbar spine 2-3V IMPRESSION: Mild lumbar levoscoliosis. No acute abnormality or significant degenerative changes.
--- NOTE | 2023-03-20 14:33 | ED_ITS ---
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 Patient reports all symptoms have been present for the past 3 days. She denies fevers/chills. Saw Dr. Driscoll yesterday and states that he told her he would likely do a gastric bypass as she has had issues following her gastric sleeve. Denies flank pain. Reports history of frequent kidney stones. Denies any chest pain or shortness of breath. Denies concern for STIs, states is not currently sexually active. MD elicited complaint: back pain Pertinent past history: prior back pain and kidney stones Onset (ago): day(s) Timing: constant Severity: severe Similar Symptoms Previously: Yes Quality: burning Location: lumbar spine Radiation: left upper leg Exacerbating factors: walking Relieving factors: supine Associated symptoms: increased urinary urgency, increased urinary frequency, a change in bowel habits, abdominal pain, dysuria and parasthesias Work related injury: No Related Data Home Medications Medication Instructions Recorded Confirmed blood sugar diagnostic (OneTouch 08/15/22 02/01/23 Verio test strips) blood-glucose meter (OneTouch 08/15/22 02/01/23 Verio Meter) lancets 33 gauge (OneTouch Delica 08/15/22 02/01/23 Lancets) triamcinolone acetonide 0.1 % appl topical 02/07/23 topical cream zolpidem 10 mg tablet 10 mg PO BEDTIME PRN 02/07/23 Previous Rx's Medication Instructions Recorded blood pressure monitor (Blood #1 ea 10/31/21 Pressure Kit) BATH CHAIR #1 ea 01/31/22 CANE #1 ea 01/31/22 LIFELINE ALERT SYSTEM #1 ea 01/31/22 WRIST BRACE #1 ea 01/31/22 ALCOHOL PADS #100 ea 02/21/22 ROLLATOR #1 ea 05/23/22 WRIST SPLINT Right and Left hand #1 ea 05/30/22 SHOWER BAR #1 ea 06/08/22 SHOWER WAND #1 ea 06/08/22 Bed pads #100 ea 07/17/22 Bedside commode #1 ea 07/17/22 SANITARY PADS #100 ea 07/17/22 fluticasone propionate 50 1 spray intranasal DAILY #100 mL 07/27/22 mcg/actuation nasal spray,suspension (Flonase Allergy Relief) simethicone 40 mg/0.6 mL oral 0.6 ml PO BID-TID PRN abdominal 11/08/22 drops,suspension distention #15 mL acetaminophen 500 mg/15 mL oral 1,000 mg (30 mL) PO Q6H PRN pain 01/25/23 liquid #1,000 mL ondansetron 4 mg disintegrating 4 mg PO Q8H PRN nausea and 01/25/23 tablet vomiting #10 tabs sdynvxadu-ceyiqqrpj-ozxqjqde-scop 5 ml PO BID PRN indigestion #50 mL 01/25/23 16.2 mg-0.1037 mg/5 mL (5 mL) elixir () food supplemt, lactose-reduced 0.1 1 ea PO TID #1,184 mL 01/29/23 gram-1.18 kcal/ mL oral liquid (Ensure Complete) polyethylene glycol 3350 17 gram 17 g PO DAILY #14 ea 01/31/23 oral powder packet (Miralax) albuterol sulfate 90 mcg/actuation 1 inh inhalation QID PRN shortness 02/04/23 aerosol inhaler of breath or wheezing #8.5 grams azithromycin 250 mg tablet See Rx Instructions PO .COMPLEX #6 02/04/23 (Zithromax Z-Jorge) tabs prednisone 20 mg tablet 20 mg PO BID #10 tabs 02/04/23 famotidine 40 mg/5 mL (8 mg/mL) 20 mg (2.5 mL) PO BID #50 mL 03/03/23 oral suspension ondansetron 4 mg disintegrating 4 mg PO Q8H nausea and vomiting 03/03/23 tablet #20 tabs sumatriptan 5 mg/actuation nasal 5 mg intranasal Q2-4H PRN migraine 03/03/23 spray headache #6 ea Magic Mouthwash 10 ml PO TID 2 days #240 mL 03/09/23 Diphen/Lido/Antacid 1:1:1 240 mL suspension lansoprazole 30 mg delayed 30 mg PO DAILY #30 tabs 03/09/23 release,disintegrating tablet (Prevacid SoluTab) lansoprazole 30 mg capsule,delayed 30 mg PO DAILY #30 caps 03/14/23 release (Prevacid) Miracle Mouthwash-Alan 240 mL 15 ml PO BID #240 mL 03/16/23 liquid aluminum-mag hydroxide-simethicone 5 ml PO 5XD PRN indigestion #355 mL 03/16/23 200 mg-200 mg-20 mg/5 mL oral susp (Maalox Advanced) sywcxsvqh-azvfcxhek-tsxdsvny-scop 5 ml PO BID PRN indigestion #50 mL 03/16/23 16.2 mg-0.1037 mg/5 mL (5 mL) elixir () prochlorperazine 25 mg rectal 25 mg TN Q12H PRN nausea and 03/16/23 suppository (Compro) vomiting #12 ea sucralfate 100 mg/mL oral 5 ml PO QID #1,000 mL 03/16/23 suspension (Carafate) cyclobenzaprine 5 mg tablet 5 mg PO Q8H PRN pain (scale score 03/20/23 7-10) 5 days #14 tabs lidocaine 5 % topical patch 1 patch topical DAILY #15 ea 03/20/23 tramadol 50 mg tablet 50 mg PO Q6H PRN pain 15 days #60 03/23/23 tabs Allergies Allergy/AdvReac Type Severity Reaction Status Date / Time tomato [TOMATO] Allergy Mild HIVES Verified 03/20/23 14:35 DIFFICULTY BREATHING hydrocodone [HYDROCODONE] Allergy Unknown RASH, Verified 03/20/23 14:35 AIRWAY CLOSES ibuprofen [From MOTRIN] Allergy Unknown STOMACH Verified 03/20/23 14:35 UPSET, vomiting trazodone [TRAZODONE] Allergy Unknown UNKNOWN, Verified 03/20/23 14:35 stomach upset black pepper [BLACK PEPPER] AdvReac Severe DIFFICULTY Verified 03/20/23 14:35 BREATHING, hives lisinopril AdvReac Severe Anaphylaxis Verified 03/20/23 14:35 Review of Systems Review of Systems: As per HPI. 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 Diverticulosis GERD (gastroesophageal reflux disease) History of bipolar disorder History of schizophrenia Hypercholesterolemia Hypertension Insomnia Numbness of left hand Renal calculi Spondylosis of lumbar spine Type 2 diabetes mellitus with hyperglycemia Vitamin D deficiency Surgical History H/O: hysterectomy History of esophagogastroduodenoscopy (EGD) History of tubal ligation Hx of bariatric surgery Hx of colonoscopy Family History Family History Father Medical history unknown Mother Medical history unknown Paternal Aunt Uterine cancer Diabetes Hypertension Paternal Uncle Liver cancer Heart attack Maternal Aunt Stroke Family/Other Chronic mental illness Sister Uterine cancer Schizophrenia Brother Substance abuse Other Mental health disorder Social History Social History Household Members: None Housing: Apartment Do you presently have visiting nurse or other home services: Yes Alcohol intake: never Patient Tobacco Use Status: Never used Tobacco e-Cigarette/Vaping Use: Never Used Second Hand Smoke Exposure: No Substance Use Type: Marijuana service: No Current occupational status: disabled Current occupational exposures/hazards: No Cognitive needs: No Hearing needs: No Vision needs: No Physical Exam Vital Signs: Vital Signs: Last Vital Signs Temp 98.3 F 03/20/23 20:12 Pulse 82 03/20/23 20:12 Resp 20 03/20/23 20:12 BP 135/86 03/20/23 20:12 Pulse Ox 97 03/20/23 20:12 O2 Del Method Room Air 03/20/23 20:12 BMI result Body Mass Index 20.0 Vital signs have been reviewed and appear to be correct. Blood pressure elevated. Heart rate normal. Respiratory rate normal. Temperature normal. Oxygen saturation normal. Const: General: cooperative, healthy appearing and no acute distress Orientation/consciousness: oriented to person, oriented to place, oriented to time and patient oriented x3 Limitations: no limitations HEENT: Head: Yes normocephalic and Yes atraumatic Ears: external ears normal General nose exam: Normal external nose present Face and sinus: Yes face symmetric Mouth: oropharynx normal and moist mucous membranes Throat: Yes uvula midline Eyes: Pupils: Equal, round and reactive pupils present Neck: Neck: Yes normal visual inspection and Yes supple Resp: Effort & Inspection: normal respiratory effort and able to speak in complete sentences Auscultation: clear to auscultation bilaterally Cardio: Rate: regular rate Rhythm: regular rhythm Heart sounds: S1 normal heart sound present and S2 normal heart sound present GI: Inspection: Yes normal to inspection Palpation (GI): Soft to palpation, Tenderness to palpation present (GI) in the LLQ, no guarding and No Rebound tenderness present Auscultation: normoactive bowel sounds : General: Yes no CVA tenderness Back/Spine/Pelvis: Back: no CVA tenderness Thoracic/Lumbar Spine: thoracic and lumbar spine normal to inspection, thoraco-lumbar ROM normal, straight leg raise negative bilaterally, paraspinal muscle tenderness bilaterally in the up per lumbar and in the mid lumbar, No thoracic spinal tenderness and No lumbar spinal tenderness Pelvis: no pain with anterior-posterior compression and no pain with lateral compression Skin: General skin exam: elasticity normal and turgor normal Neuro: General: oriented to person, oriented to place, oriented to time, patient oriented x3, moves all extremities, no focal motor deficits, CN's II-XI intact bilaterally and deep tendon reflexes 2+ bilaterally Cranial nerves: Yes Equal, round and reactive pupils present Cognition (Neuro): normal cognition Extrem: General: Yes full ROM, Yes no pedal edema and Yes no calf tenderness Psych: Mental Status: mental status grossly normal Affect: normal affect Thought process: Normal thought process present Course Course Course Narrative: RME: 42yo F w/PMHx ETOH abuse, GERD, HTN, DM, gastric sleeve, Uzbek speaking c/o low back pain radiating down LLE w/2 falls today due to legs giving out. Denies falling all the way to ground, no head trauma or LOC. Also reports difficulty urinating w/frequency & dysuria UA, XR ordered Full HPI, ROS and PE to be performed by primary ED provider. 2037--CT abdomen pelvis w IV con IMPRESSION: 1.? Stable wall thickening of the antropyloric region with low attenuation of the submucosa suggesting edema, recommend clinical correlation for gastritis/peptic ulcer disease and if indicated further evaluation with an outpatient upper endoscopy. 2.? Mild fluid distention of several loops of small bowel in the right lower quadrant which could be seen with gastroenteritis in the appropriate clinical context. 3.? Mild colonic diverticulosis but no evidence of acute diverticulitis. 4.? Fecalization of loops of small bowel in the left upper quadrant suggesting slow transit. No evidence of bowel obstruction. Results discussed with patient including worrisome signs and symptoms and strict return precautions, and when to return to the emergency department. They verbalized understanding and feel safe for discharge at this time. Medications Administered Discontinued Medications Generic Name Dose Route Start Last Admin Trade Name Freq PRN Reason Stop Dose Admin Acetaminophen 650 mg 03/20/23 19:40 03/20/23 19:53 Acetaminophen 325 Mg Tablet PO 03/20/23 19:41 Not Given ONCE ONE Cyclobenzaprine HCl 5 mg 03/20/23 19:40 03/20/23 19:53 Cyclobenzaprine Hcl 5 Mg Tablet PO 03/20/23 19:41 Not Given ONCE ONE Famotidine 20 mg 03/20/23 18:24 03/20/23 18:36 Famotidine/Pf 20 Mg/2 Ml Vial IVPUSH 03/20/23 18:25 20 mg ONCE ONE Administration Iohexol 100 ml 03/20/23 18:16 03/20/23 18:16 Iohexol 350 Mg/Ml 100 Ml Infus..Btl IV 03/20/23 18:17 100 ml ONCE ONE Administration Ondansetron HCl 4 mg 03/20/23 18:24 03/20/23 18:34 Ondansetron Hcl 4 Mg/2 Ml Vial IVPUSH 03/20/23 18:25 4 mg ONCE ONE Administration Medical Decision Making Medical Decision Making MDM Narrative: Patient is a 42-year-old Uzbek-speaking female with history of ETOH abuse, GERD, HTN, DM, gastric sleeve presenting to the emergency department with complaint of low back pain radiating down left leg with associated paresthesias as well as dysuria, urinary frequency, nausea, vomiting, and diarrhea. Patient has been evaluated in this ED multiple times over the past several months for similar symptoms. On exam patient is awake, A+Ox3, VS WNL, afebrile, nontoxic appearing, normal neurological exam without focal deficits, abdomen soft, LLQ tender to palpation, no guarding or rebound tenderness, no CVA tenderness. Given reported symptoms and physical exam findings, initial differential includes lumbar strain, lumbar radiculopathy, disc herniation, renal colic, gastroenteritis, diverticulitis, gastric sleeve complication. Low suspicion for hepatobiliary disease, pneumonia, hepatitis, pyelonephritis, bowel obstruction or viscus perforation. Labs notable for no leukocytosis, chronic baseline anemia, no electrolyte abnormalities. No evidence of infection or blood on UA. Lumbar x-ray positive only for levoscoliosis, no acute findings. Feel back pain likely related to lumbar radiculopathy, unable to prescribe NSAIDs or steroids due to gastric sleeve, will advise Tylenol and prescribe lidocaine patches. Patient signed out to [facility] pending CT results. Differential Diagnosis Differential Diagnoses: The differential diagnosis associated with the presentation includes As per MDM. Admission/Observation Consideration of admission/observation: Escalation of care including ad mission/observation considered Lab Data [facility] Lab Attestation statement: I reviewed the patient's lab results. As per MDM. 03/20/23 17:39 03/20/23 17:39 Labs: Lab Results 03/20/23 03/20/23 03/20/23 Range/Units 15:43 17:39 17:39 WBC 5.9 (4.8-10.8) X10*3/uL RBC 3.74 L (4.20-5.50) X10*6/uL Hgb 10.0 L (12.0-16.0) g/dl Hct 31.7 L (37.0-47.0) % MCV 84.8 (80.0-98.0) fL MCH 26.7 L (27.0-33.0) pg MCHC 31.5 (31.0-35.0) g/dl RDW 13.2 (11.0-16.0) % Plt Count 502 H (160-400) X10*3/uL MPV 9.7 (9.4-12.3) fL Immature Gran % (Auto) 0.3 (0.0-0.4) % Neut % (Auto) 54.0 (45-73) % Lymph % (Auto) 35.3 (20-40) % [place] % (Auto) 7.7 (2-11) % Eos % (Auto) 1.5 (0-4) % Baso % (Auto) 1.2 (0-2) % Lymph # (Auto) 2.1 (1.2-4.9) X10*3/uL [place] # (Auto) 0.5 (0.1-1.2) X10*3/uL Eos # (Auto) 0.1 (0.0-0.4) X10*3/uL Baso # (Auto) 0.1 (0.0-0.2) X10*3/uL Abs Immat Gran (auto) 0.02 (0.00-0.03) X10*3/uL Absolute Neuts (auto) 3.2 (2.0-8.3) x10*3/uL Absolute Nucleated RBC 0.000 (0.0-0.012) X10*3/uL Nucleated RBC % (auto) 0.0 (0.0-0.2) /100WBC PT (11.1-13.3) SEC INR (0.9-1.1) Sodium 140 (135-145) mmol/L Potassium 4.4 (3.3-5.1) mmol/L Chloride 105 (96-108) mmol/L Carbon Dioxide 27 (22-29) mmol/L Anion Gap 12 (12-20) BUN 12 (9-16) mg/dL Creatinine 0.63 (0.5-1.4) mg/dL Estim Creat Clear Calc 87.7 Estimated GFR > 60 POC Glucose (60-115) mg/dL Random Glucose 83 (60-115) mg/dL Calcium 8.9 D (8.4-10.2) mg/dL Total Bilirubin 0.3 (0.0-1.0) mg/dL AST 13 (5-31) U/L ALT 9 (0-31) U/L Alkaline Phosphatase 64 (39-117) U/L Total Protein 6.8 (6.5-8.0) g/dL Albumin 4.1 (3.5-5.0) g/dL Lipase 16 (8-78) U/L Urine Color Yellow Urine Appearance Clear Urine pH 7.0 (5.0-9.0) Ur Specific [place] >= 1.030 H (1.005-1.025) Urine Protein 30 (1+) H (Neg-Trace) mg/dL Urine Glucose (UA) Negative (Negative) mg/dL Urine Ketones Negative (Negative) mg/dL Urine Blood Negative (Negative) Urine Nitrite Negative (Negative) Ur Leukocyte Esterase Negative (Negative) Urine RBC 0-2 (0-2) /HPF Urine WBC 0-5 (0-5) /HPF Ur Squamous Epith Cells 3-5 (0-2) /HPF Urine Bacteria Trace (None Seen) Hyaline Casts 0-2 (0-2) /LPF 03/20/23 03/20/23 Range/Units 18:01 20:26 WBC (4.8-10.8) X10*3/uL RBC (4.20-5.50) X10*6/uL Hgb (12.0-16.0) g/dl Hct (37.0-47.0) % MCV (80.0-98.0) fL MCH (27.0-33.0) pg MCHC (31.0-35.0) g/dl RDW (11.0-16.0) % Plt Count (160-400) X10*3/uL MPV (9.4-12.3) fL Immature Gran % (Auto) (0.0-0.4) % Neut % (Auto) (45-73) % Lymph % (Auto) (20-40) % [place] % (Auto) (2-11) % Eos % (Auto) (0-4) % Baso % (Auto) (0-2) % Lymph # (Auto) (1.2-4.9) X10*3/uL [place] # (Auto) (0.1-1.2) X10*3/uL Eos # (Auto) (0.0-0.4) X10*3/uL Baso # (Auto) (0.0-0.2) X10*3/uL Abs Immat Gran (auto) (0.00-0.03) X10*3/uL Absolute Neuts (auto) (2.0-8.3) x10*3/uL Absolute Nucleated RBC (0.0-0.012) X10*3/uL Nucleated RBC % (auto) (0.0-0.2) /100WBC PT 11.8 (11.1-13.3) SEC INR 1.0 (0.9-1.1) Sodium (135-145) mmol/L Potassium (3.3-5.1) mmol/L Chloride (96-108) mmol/L Carbon Dioxide (22-29) mmol/L Anion Gap (12-20) BUN (9-16) mg/dL Creatinine (0.5-1.4) mg/dL Estim Creat Clear Calc Estimated GFR POC Glucose 40 L* (60-115) mg/dL Random Glucose (60-115) mg/dL Calcium (8.4-10.2) mg/dL Total Bilirubin (0.0-1.0) mg/dL AST (5-31) U/L ALT (0-31) U/L Alkaline Phosphatase (39-117) U/L Total Protein (6.5-8.0) g/dL Albumin (3.5-5.0) g/dL Lipase (8-78) U/L Urine Color Urine Appearance Urine pH (5.0-9.0) Ur Specific [place] (1.005-1.025) Urine Protein (Neg-Trace) mg/dL Urine Glucose (UA) (Negative) mg/dL Urine Ketones (Negative) mg/dL Urine Blood (Negative) Urine Nitrite (Negative) Ur Leukocyte Esterase (Negative) Urine RBC (0-2) /HPF Urine WBC (0-5) /HPF Ur Squamous Epith Cells (0-2) /HPF Urine Bacteria (None Seen) Hyaline Casts (0-2) /LPF External Record Review External record reviewed: Inpatient record, Office record and Outpatient record Prescription Management I considered prescription management with: Pain Medication Chronic Conditions Patient?s care impacted by: Other Discharge Plan Discharge Clinical Impression: Acute lumbar radiculopathy, Gastritis, Gastroenteritis Patient Disposition: Home, Self-Care Instructions: Gastritis (DC), Gastroenteritis (DC), Lumbar Radiculopathy (ED), Back Pain (ED) Additional Instructions: You were evaluated in the emergency department today for back pain. Your symptoms are likely related to lumbar radiculopathy. Flexeril as a muscle relaxer, take at night as it makes you drowsy, do not drive drink alcohol or operate machinery while taking You can take Tylenol 650 mg every 6 hours for this pain. You are also being prescribed topical lidocaine patches which she can wear in the affected area for up to 12 hours in a 24 hour period, do not apply heat directly over the patches. your CT shows gastritis and gastroenteritis, you need to follow up with your GI doctor You were also evaluated for urinary symptoms, your urinalysis did not show evidence of infection. Usted fue evaluado en el departamento de emergencias hoy por dolor de espalda. Es probable que eleuterio s?ntomas est?n relacionados con la radiculopat?a lumbar. Flexeril martin relajante muscular, t?purcell por la noche ya que le provoca somnolencia, no conduzca, nicolas alcohol ni maneje maquinaria mientras nathaniel Puede avril Tylenol 650 mg cada 6 horas para lazaro dolor. Tambi?n le est?n recetando parches t?picos de lidoca?na que puede usar en el ?inna afectada hasta por 12 horas en un per?odo de 24 horas, no aplique calor directamente sobre los parches. barnard tomograf?a computarizada muestra gastritis y gastroenteritis, debe hacer un seguimiento con barnard m?dico GI Tambi?n fue evaluado por s?ntomas urinarios, barnard an?lisis de orina no mostr? evidencia de infecci?n. Prescriptions: New lidocaine 5 % adhesive patch,medicated 1 patch topical DAILY Qty: 15 0RF Rx Instructions: leave on most painful area for up to 12 hrs cyclobenzaprine 5 mg tablet 5 mg PO Q8H PRN (Reason: pain (scale score 7-10)) 5 Days Qty: 14 0RF No Action (DME) blood pressure monitor [Blood Pressure Kit] Kit See Rx Instructions .Route Qty: 1 0RF Rx Instructions: As directed (DME) CANE See Rx Instructions .Route .MEDSUPPLY Qty: 1 0RF Rx Instructions: As directed (DME) WRIST BRACE See Rx Instructions .Route .MEDSUPPLY Qty: 1 0RF Rx Instructions: As directed (DME) BATH CHAIR See Rx Instructions .Route .MEDSUPPLY Qty: 1 0RF Rx Instructions: As directed (DME) [employer] ALERT SYSTEM See Rx Instructions .Route .MEDSUPPLY Qty: 1 0RF Rx Instructions: As directed (DME) ALCOHOL PADS See Rx Instructions .Route .MEDSUPPLY Qty: 100 3RF Rx Instructions: As directed (DME) ROLLATOR See Rx Instructions .Route .MEDSUPPLY Qty: 1 0RF Rx Instructions: As directed (DME) WRIST SPLINT Right and Left hand See Rx Instructions .Route .MEDSUPPLY Qty: 1 0RF Rx Instructions: As directed (DME) SHOWER WAND See Rx Instructions .Route .MEDSUPPLY Qty: 1 0RF Rx Instructions: As directed (DME) SHOWER BAR See Rx Instructions .Route .MEDSUPPLY Qty: 1 0RF Rx Instructions: As directed (DME) Bedside commode See Rx Instructions .Route .MEDSUPPLY Qty: 1 0RF Rx Instructions: As directed (DME) Bed pads See Rx Instructions .Route .MEDSUPPLY Qty: 100 12RF Rx Instructions: As directed (DME) SANITARY PADS See Rx Instructions .Route .MEDSUPPLY Qty: 100 12RF Rx Instructions: As directed simethicone 40 mg/0.6 mL drops,suspension 0.6 ml PO BID-TID PRN (Reason: abdominal distention) Qty: 15 0RF Ensure Complete 0.1 gram-1.18 kcal/mL liquid 1 ea PO TID Qty: 1184 12RF polyethylene glycol 3350 [Miralax] 17 gram powder in packet 17 g PO DAILY Qty: 14 3RF Rx Instructions: Use daily until you have a normal bowel movement, then stop. Magic Mouthwash Diphen/Lido/Antacid 1:1:1 240 mL suspension 10 ml PO TID 2 Days Qty: 240 0RF Rx Instructions: Lidocaine Viscous 2 % 80mL; diphenhydramine 12.5 mg/5 mL 80mL; aluminum-mag hydrox-simeth [id number]-[id number]-51vy/5mL 80mL. swallow the medication lansoprazole [Prevacid SoluTab] 30 mg tablet,disintegrat, delay rel 30 mg PO DAILY Qty: 30 0RF lansoprazole [Prevacid] 30 mg capsule,delayed release(DR/EC) 30 mg PO DAILY Qty: 30 0RF sucralfate [Carafate] 100 mg/mL suspension 5 ml PO QID Qty: 1000 0RF Rx Instructions: swish in mouth and swallow; use after food/drink alum-mag hydroxide-simeth [Maalox Advanced] 200-200-20 mg/5 mL suspension 5 ml PO 5XD PRN (Reason: indigestion) Qty: 355 0RF Rx Instructions: administer between meals and at bedtime tramadol 50 mg tablet 50 mg PO Q6H PRN (Reason: pain) 15 Days Qty: 60 0RF dosiwkacs-xxsaag-iyyydwhx-scop [] 16.2 mg-0.1037 mg/5 mL (5 mL) elixir 5 ml PO BID PRN (Reason: indigestion) Qty: 50 0RF ondansetron 4 mg tablet,disintegrating 4 mg PO Q8H PRN (Reason: nausea and vomiting) Qty: 10 0RF acetaminophen 500 mg/15 mL liquid 1,000 mg PO Q6H PRN (Reason: pain) Qty: 1000 0RF ondansetron 4 mg tablet,disintegrating 4 mg PO Q8H Qty: 20 0RF famotidine 40 mg/5 mL (8 mg/mL) suspension 20 mg PO BID Qty: 50 3RF sumatriptan 5 mg/actuation spray,non-aerosol 5 mg intranasal Q2-4H PRN (Reason: migraine headache) Qty: 6 1RF Rx Instructions: into each nostril once; if headache remains, may repeat total dose once after at least 2 hours azithromycin [Zithromax Z-Jorge] 250 mg tablet See Rx Instructions .ROUTE .COMPLEX Qty: 6 0RF Rx Instructions: For 250 mg dose pack: take 500 mg today (day 1), then 250 mg for 4 days (days 2-5) prednisone 20 mg tablet 20 mg PO BID Qty: 10 0RF albuterol sulfate 90 mcg/actuation HFA aerosol inhaler 1 inh inhalation QID PRN (Reason: shortness of breath or wheezing) Qty: 8.5 0RF prochlorperazine [Compro] 25 mg suppository 25 mg TN Q12H PRN (Reason: nausea and vomiting) Qty: 12 0RF Miracle Mouthwash-Alan 240 mL liquid 15 ml PO BID Qty: 240 0RF Rx Instructions: Nystatin susp 80 mL;Lidocaine 2% Visc 80 mL; Maalox 80 mL; Swish and spit xaznfjdnv-xfxgls-mbhuknby-scop [] 16.2 mg-0.1037 mg/5 mL (5 mL) elixir 5 ml PO BID PRN (Reason: indigestion) Qty: 50 0RF fluticasone propionate [Flonase Allergy Relief] 50 mcg/actuation spray,suspension 1 spray intranasal DAILY Qty: 100 0RF Rx Instructions: administer into each nostril (DME) blood-glucose meter [facility] M[facility]] [facility] See [facility] Instructions .Route Rx Instructions: As directed (DME) OneTouch Verio test strips Strip See Rx Instructions .Route Rx Instructions: As directed 3 times a day (DME) lancets [[facility]Touch Delica Lancets] [facility] See Rx Instructions .Route Rx Instructions: As directed 3 times a day zolpidem 10 mg tablet 10 mg PO BEDTIME PRN triamcinolone acetonide 0.1 % cream topical Referrals: [facility] [place] [facility] [Provider Group] Deirdre Cantrell MD [Primary Care Provider] - Interventions: ED Discharge Assessment Last Done: 03/20/23 21:06 Discharge Date/Time: 03/20/23 21:07 Print Language: Uzbek
[2023-03-20 14:35] VITALS: BP 140/96; PULSE 85; RESP 19; TEMP 36.6; O2SAT 98
[2023-03-20 15:54] LABS: Appearance Urine Clear; Color Urine Yellow; Glucose Urine UA Negative (Negative); Leukocyte Esterase Urine Negative (Negative); Nitrite Urine Negative (Negative); Specific Gravity - Urine >= 1.030 (1.005-1.025); UMIC TRIGGER UACC YES; Urine Blood Negative (Negative); Urine Ketones Negative (Negative); Urine Protein 30 (1+) mg/dL (Neg-Trace)
[2023-03-20 15:59] LABS: Bacteria Urine Trace (None Seen); Hyaline Casts Urine 0-2 /LPF (0-2); RBC Urine 0-2 /HPF (0-2); WBC Urine 0-5 /HPF (0-5)
[2023-03-20 17:43] LABS: MANUAL DIFF FLAG NO
[2023-03-20 17:53] LABS: Basophils Absolute Auto 0.1 X10*3/uL (0.0-0.2); Basophils Percent Auto 1.2 % (0-2); Eosinophils Absolute Auto 0.1 X10*3/uL (0.0-0.4); Eosinophils Percent Auto 1.5 % (0-4); Hematocrit 31.7 % (37.0-47.0); Imm Gran Abs Auto 0.02 X10*3/uL (0.00-0.03); Imm Gran Pct Auto 0.3 % (0.0-0.4); Lymphocytes Absolute Auto 2.1 X10*3/uL (1.2-4.9); Lymphocytes Percent Auto 35.3 % (20-40); Mean Corpuscular HGB Conc 31.5 g/dl (31.0-35.0); Mean Corpuscular Hemoglobin 26.7 pg (27.0-33.0); Mean Corpuscular Volume 84.8 fL (80.0-98.0); Mean Platelet Volume 9.7 fL (9.4-12.3); Monocytes Absolute Auto 0.5 X10*3/uL (0.1-1.2); Monocytes Percent Auto 7.7 % (2-11); Neutrophils Absolute Auto 3.2 x10*3/uL (2.0-8.3); Platelet Count 502 X10*3/uL (160-400); Red Blood Count 3.74 X10*6/uL (4.20-5.50); Red Cell Distribution Width 13.2 % (11.0-16.0); White Blood Count 5.9 X10*3/uL (4.8-10.8)
[2023-03-20 17:58] LABS: Alanine Aminotransferase 9 U/L (0-31); Albumin Level 4.1 g/dL (3.5-5.0); Alkaline Phosphatase 64 U/L (39-117); Anion Gap 12 (12-20); Aspartate Amino Transferase 13 U/L (5-31); Bilirubin Total 0.3 mg/dL (0.0-1.0); Blood Urea Nitrogen 12 mg/dL (9-16); Calcium 8.9 mg/dL (8.4-10.2); Carbon Dioxide 27 mmol/L (22-29); Chloride 105 mmol/L (96-108); Creatinine Clr Calc Pharmacy 87.7; Estimated Glomerular Filt Rate > 60; Glucose Random 83 mg/dL (60-115); Lipase 16 U/L (8-78); Potassium 4.4 mmol/L (3.3-5.1); Sodium 140 mmol/L (135-145); Total Protein 6.8 g/dL (6.5-8.0)
[2023-03-20] MEDS: iohexoL 350 MG/ML 100 ML INFUS..BTL IV (18:16)
[2023-03-20] MEDS: ondansetron HCL 4 MG/2 ML VIAL IVPUSH (18:34)
[2023-03-20] MEDS: Famotidine/PF 20 MG/2 ML VIAL IVPUSH (18:36)
[2023-03-20 18:59] LABS: Prothrombin Time 11.8 SEC (11.1-13.3)
--- NOTE | 2023-03-20 19:52 | PC.NURSE ---
pt refused PO APAP and flexeril as pt cannot swallow pills d/t dysphagia- [place] aware
[2023-03-20 20:12] VITALS: BP 135/86; PULSE 82; RESP 20; TEMP 36.8; O2SAT 97
[2023-03-20 20:29] LABS: Glucose, Whole Blood 40 mg/dL (60-115)
== END 2023-03-20 21:07 | disposition home or self-care (01) ==
PROVIDERS: Physician Assistant; Registered Nurse Emergency; Emergency Provider Emergency Medicine; PCP Internal Medicine
DX: M54.16 Radiculopathy, lumbar region (principal); K29.70 Gastritis, unspecified, without bleeding; K52.9 Noninfective gastroenteritis and colitis, unspecified; M54.50 Low back pain, unspecified; E11.9 Type 2 diabetes mellitus without complications; I10 Essential (primary) hypertension; E78.00 Pure hypercholesterolemia, unspecified; Z90.3 Acquired absence of stomach [part of]; Z79.899 Other long term (current) drug therapy
CPT/HCPCS: 36415; 72100; 74177; 80053; 81001; 82947; 83690; 85025; 85610; 96374; 96375; 99284; J2405; Q9967

== ENCOUNTER 2023-03-23 12:34 | Outpatient (AMB) | payer OTHER, SELFPAY ==
--- NOTE | 2023-03-23 12:35 | A.OFFVIS_ITS ---
Intake Vital Signs 03/23/23 12:59 Height 5 ft 1 in Weight 103 lb 9.876 oz BMI 19.6 Blood Pressure Location Lt brachial Position Sitting Intake Visit Reasons: EGD F/U Intake Note: Tye presents in the office as a follow up. CC: She states that she is having issues taking her medications due to her Dysphagia. Executive Personal Assistant Required: Yes Executive Personal Assistant Name: Rivas Nash [id number] Allergies tomato [TOMATO] Allergy (Mild, Verified 03/23/23 13:00) HIVES DIFFICULTY BREATHING hydrocodone [HYDROCODONE] Allergy (Unknown, Verified 03/23/23 13:00) RASH, AIRWAY CLOSES ibuprofen [From MOTRIN] Allergy (Unknown, Verified 03/23/23 13:00) STOMACH UPSET, vomiting trazodone [TRAZODONE] Allergy (Unknown, Verified 03/23/23 13:00) UNKNOWN, stomach upset black pepper [BLACK PEPPER] Adverse Reaction (Severe, Verified 03/23/23 13:00) DIFFICULTY BREATHING, hives lisinopril Adverse Reaction (Severe, Verified 03/23/23 13:00) Anaphylaxis HPI HPI Comments History of Present Illness Details 42 y.o F with PMH of sleeve gastrectomy in 09/2021 (Dr Driscoll), hx of reflux and esophagitis PRE-gastrectomy, who is here for difficulty and painful swallowing. Pt reports that she has had intermittent heartburn for at least 5 years now. [place] 2018 [place] [place] This was previously controlled by avoiding food triggers and taking PPI. However after her SG, starting November 2021, she started noticing sensation of food getting stuck and regurgitation which got worse with time. Her heartburn also got aggravated where it would not respond to once daily dosing of PPI. She was seen by Dr Driscoll for follow up who recommended increasing PPI and reportedly to consider a feeding tube? Records not available from his consultation. Pt has also now been following up with Bariatric surg [place] [facility] [place] October of this year. She has had at least 2 EGDs this month (Aug 2022 Dr Jennifer OSCAR and November 2022 Dr Multani) both demonstrating significant esophagitis as well as a mild esophageal stricture and narrowing of the sleeve. Pt reports losing 90 lbs since the surgery. However, notes that it has slowed down in the past 2 months since starting ensure and notices heartburn has improved a bit since increasing the PPI and adding carafate and maalox as ou tlined by Bariatric PA. UGIS 01/26/23: FINDINGS: There is severe gastroesophageal reflux. There is mucosal irregularity of the mid and distal esophagus suggestive of esophagitis. There is a moderate stricture of the distal thoracic esophagus. This appears increased from July 2022. 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 This is similar to previous exam. The stomach is otherwise normal. There is fold thickening or bubbly bulb appearance to the duodenal bulb. This can be seen with hyperacidity. 03/07/23: EGD Findings:? * Esophagus:? Grade C esophagitis from 33-35 cm associated with mild narrowing of lumen which could be easily traversed with the gastroscope. A small esophageal ulcer was noted at the GE junction at 35 cm which was spontaneously oozing. * Stomach:? Evidence of sleeve gastrectomy with tubular stomach which did not allow for retroflexion. 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 This was treated with argon plasma coagulation with adequate hemostasis. * Duodenum:? Normal mucosa was noted in the whole of the examined duodenum. Additional intervention: A through the scope balloon dilator was advanced to the GE junction and the esophagus was gradually dilated from 12 to 15 mm. A resolution 360 clip was then placed on the oozing esophageal ulcer and then further sprayed with hemospray. 03/23/23: Has been able to eat better since dilation. Was also happy to hear that esophagitis has improved from LA grade D to LA grade C. Current meds: Carafate QID Maalox QID Pantoprazole 40 BID Was seen by Dr Driscoll last week and has initiated discussion for bypass surgery. Getting prelim work up done this month. 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 Diverticulosis GERD (gastroesophageal reflux disease) History of bipolar disorder History of schizophrenia Hypercholesterolemia Hypertension Insomnia Numbness of left hand Renal calculi Spondylosis of lumbar spine Type 2 diabetes mellitus with hyperglycemia Vitamin D deficiency Surgical History H/O: hysterectomy History of esophagogastroduodenoscopy (EGD) History of tubal ligation Hx of bariatric surgery Hx of colonoscopy Family History Father Medical history unknown Mother Medical history unknown Paternal Aunt Uterine cancer Diabetes Hypertension Paternal Uncle Liver cancer Heart attack Maternal Aunt Stroke Family/Other Chronic mental illness Sister Uterine cancer Schizophrenia Brother Substance abuse Other Mental health disorder Social History Household Members: None Housing: Apartment Do you presently have visiting nurse or other home services: Yes Alcohol intake: never Patient Tobacco Use Status: Never used Tobacco e-Cigarette/Vaping Use: Never Used Second Hand Smoke Exposure: No Substance Use Type: Marijuana service: No Current occupational status: disabled Current occupational exposures/hazards: No Cognitive needs: No Hearing needs: No Vision needs: No Female Reproductive History Menstrual Age of Menarche: 11 Review of Systems Const All systems reviewed & are unremarkable except as noted in HPI and below Physical Exam Vital Signs: BMI result Body Mass Index 19.6 Assessment & Plan Assessment & Plan (1) Gastric hourglass stricture or stenosis: Code(s): K31.2 - Hourglass stricture and stenosis of stomach (2) Underweight: Code(s): R63.6 - Underweight (3) Dysphagia: Code(s): R13.10 - Dysphagia, unspecified (4) GERD (gastroesophageal reflux disease): Code(s): K21.9 - Gastro-esophageal reflux disease without esophagitis (5) Esophagitis: Code(s): K20.90 - Esophagitis, unspecified without bleeding Plan Main issue appears to be caloric deficiency and malnutrition secondary to dysphagia which in turn is due to severe esophagitis and esophageal stricture secondary to profound reflux disease. Based on the last 2 EGDs (which were both done on double dose PPI) this appears to be refractory to PPI use. Pt has recently seen Dr Driscoll for discussion of revision to RYGB which will help with the above. Will obtain records. She also wonders about iron infusions for ZELALEM. 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 Plan: - Cont PPI, carafate and maalox - Elevate HOB to 30 degrees when resting - Cont Ensure to make up for caloric deficit - Repeat EGD in 8-10 weeks for further dilation as needed - pt to call us if gets this done through [email or web address] instead - Records release signed for Lauryn (Dr Callaway's) records Follow up after EGD Medications: Discontinued Magic Mouthwash Diphen/Lido/Antacid 1:1:1 Lidocaine Viscous 2 % 80mL; diphenhydramine 12.5 mg/5 mL 80mL; aluminum-mag hydrox-simeth [id number]/5mL 80mL. swallow the medication 10 mL PO TID 2 days 240 mL 0RF Coding Level of Care Code Est Pt Level 4 (32045) Diagnoses Gastric hourglass stricture or stenosis K31.2 Underweight R63.6 Dysphagia R13.10 GERD (gastroesophageal reflux disease) K21.9 Esophagitis K20.90
[2023-03-23 12:59] VITALS: BMI 19.6
== END 2023-03-23 14:44 | disposition home or self-care (01) ==
PROVIDERS: PCP Internal Medicine; Visit Provider Internal Medicine
DX: K31.2 Hourglass stricture and stenosis of stomach (principal); R63.6 Underweight; R13.10 Dysphagia, unspecified; K21.9 Gastro-esophageal reflux disease without esophagitis; K20.90 Esophagitis, unspecified without bleeding
CPT/HCPCS: 99214

== ENCOUNTER → 2023-03-23 12:34 | Outpatient (BNVA) | payer OTHER, SELFPAY | PROVIDERS: PCP Internal Medicine; Visit Provider Internal Medicine | DX: K31.2 Hourglass stricture and stenosis of stomach (principal); R63.6 Underweight; R13.10 Dysphagia, unspecified; K21.00 Gastro-esophageal reflux disease with esophagitis, without bleeding; Z98.890 Other specified postprocedural states | CPT/HCPCS: 99212 ==

== ENCOUNTER 2023-04-07 12:47 | Emergency (ER) | payer OTHER, SELFPAY ==
[2023-04-07 14:21] VITALS: BP 151/62; PULSE 68; RESP 17; TEMP 36.6; O2SAT 96
--- NOTE | 2023-04-07 14:24 | ED_ITS ---
HPI - General Adult General Stated complaint: Vomiting, Abd pain Related Data Home Medications Medication Instructions Recorded Confirmed blood sugar diagnostic ([facility] 02/01/23 Verio test strips) [facility] Verio Meter) lancets 33 gauge ([facility] Delica 08/15/22 02/01/23 Lancets) triamcinolone acetonide 0.1 % appl topical 02/07/23 topical cream zolpidem 10 mg tablet 10 mg PO BEDTIME PRN 02/07/23 Previous Rx's Medication Instructions Recorded blood pressure monitor (Blood #1 ea 10/31/21 Pressure Kit) BATH CHAIR #1 ea 01/31/22 CANE #1 ea 01/31/22 LIFELINE ALERT SYSTEM #1 ea 01/31/22 WRIST BRACE #1 ea 01/31/22 ALCOHOL PADS #100 ea 02/21/22 ROLLATOR #1 ea 05/23/22 SHOWER BAR #1 ea 06/08/22 SHOWER WAND #1 ea 06/08/22 Bed pads #100 ea 07/17/22 Bedside commode #1 ea 07/17/22 SANITARY PADS #100 ea 07/17/22 fluticasone propionate 50 1 spray intranasal DAILY #100 mL 07/27/22 mcg/actuation nasal spray,suspension (Flonase Allergy Relief) simethicone 40 mg/0.6 mL oral 0.6 ml PO BID-TID PRN abdominal 11/08/22 drops,suspension distention #15 mL acetaminophen 500 mg/15 mL oral 1,000 mg (30 mL) PO Q6H PRN pain 01/25/23 liquid #1,000 mL ondansetron 4 mg disintegrating 4 mg PO Q8H PRN nausea and 01/25/23 tablet vomiting #10 tabs dgnbupixe-cjqnfdypl-ifhmgwly-scop 5 ml PO BID PRN indigestion #50 mL 01/25/23 16.2 mg-0.1037 mg/5 mL (5 mL) elixir () food supplemt, lactose-reduced 0.1 1 ea PO TID #1,184 mL 01/29/23 gram-1.18 kcal/ mL oral liquid (Ensure Complete) polyethylene glycol 3350 17 gram 17 g PO DAILY #14 ea 01/31/23 oral powder packet (Miralax) albuterol sulfate 90 mcg/actuation 1 inh inhalation QID PRN shortness 02/04/23 aerosol inhaler of breath or wheezing #8.5 grams azithromycin 250 mg tablet See Rx Instructions PO .COMPLEX #6 02/04/23 (Zithromax Z-Jorge) tabs prednisone 20 mg tablet 20 mg PO BID #10 tabs 02/04/23 famotidine 40 mg/5 mL (8 mg/mL) 20 mg (2.5 mL) PO BID #50 mL 03/03/23 oral suspension ondansetron 4 mg disintegrating 4 mg PO Q8H nausea and vomiting 03/03/23 tablet #20 tabs sumatriptan 5 mg/actuation nasal 5 mg intranasal Q2-4H PRN migraine 03/03/23 spray headache #6 ea Magic Mouthwash 10 ml PO TID 2 days #240 mL 03/09/23 Diphen/Lido/Antacid 1:1:1 240 mL suspension lansoprazole 30 mg delayed 30 mg PO DAILY #30 tabs 03/09/23 release,disintegrating tablet (Prevacid SoluTab) lansoprazole 30 mg capsule,delayed 30 mg PO DAILY #30 caps 03/14/23 release (Prevacid) Miracle Mouthwash-Alan 240 mL 15 ml PO BID #240 mL 03/16/23 liquid jmvabvomf-vxvbyhfqp-xviulwtj-scop 5 ml PO BID PRN indigestion #50 mL 03/16/23 16.2 mg-0.1037 mg/5 mL (5 mL) elixir () prochlorperazine 25 mg rectal 25 mg OK Q12H PRN nausea and 03/16/23 suppository (Compro) vomiting #12 ea sucralfate 100 mg/mL oral 5 ml PO QID #1,000 mL 03/16/23 suspension (Carafate) cyclobenzaprine 5 mg tablet 5 mg PO Q8H PRN pain (scale score 03/20/23 7-10) 5 days #14 tabs lidocaine 5 % topical patch 1 patch topical DAILY #15 ea 03/20/23 tramadol 50 mg tablet 50 mg PO Q6H PRN pain 15 days #60 03/23/23 tabs aluminum-mag hydroxide-simethicone 5 ml PO 5XD PRN indigestion #355 mL 04/06/23 200 mg-200 mg-20 mg/5 mL oral susp (Maalox Advanced) Allergies Allergy/AdvReac Type Severity Reaction Status Date / Time tomato [TOMATO] Allergy Mild HIVES Verified 04/07/23 14:21 DIFFICULTY BREATHING hydrocodone [HYDROCODONE] Allergy Unknown RASH, Verified 04/07/23 14:21 AIRWAY CLOSES ibuprofen [From MOTRIN] Allergy Unknown STOMACH Verified 04/07/23 14:21 UPSET, vomiting trazodone [TRAZODONE] Allergy Unknown UNKNOWN, Verified 04/07/23 14:21 stomach upset black pepper [BLACK PEPPER] AdvReac Severe DIFFICULTY Verified 04/07/23 14:21 BREATHING, hives lisinopril AdvReac Severe Anaphylaxis Verified 04/07/23 14:21 PMF Past Medical History 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 Diverticulosis GERD (gastroesophageal reflux disease) History of bipolar disorder History of schizophrenia Hypercholesterolemia Hypertension Insomnia Numbness of left hand Renal calculi Spondylosis of lumbar spine Type 2 diabetes mellitus with hyperglycemia Vitamin D deficiency Surgical History H/O: hysterectomy History of esophagogastroduodenoscopy (EGD) History of tubal ligation Hx of bariatric surgery Hx of colonoscopy Family History Family History Father Medical history unknown Mother Medical history unknown Paternal Aunt Uterine cancer Diabetes Hypertension Paternal Uncle Liver cancer Heart attack Maternal Aunt Stroke Family/Other Chronic mental illness Sister Uterine cancer Schizophrenia Brother Substance abuse Other Mental health disorder Social History Social History Household Members: None Housing: Apartment Do you presently have visiting nurse or other home services: Yes Alcohol intake: never Patient Tobacco Use Status: Never used Tobacco e-Cigarette/Vaping Use: Never Used Second Hand Smoke Exposure: No Substance Use Type: Marijuana service: No Current occupational status: disabled Current occupational exposures/hazards: No Cognitive needs: No Hearing needs: No Vision needs: No Course Course Course Narrative: Patient has history of gastrectomy Complains of crampy intermittent abdominal pain vomiting diarrhea dysuria feeling dizzy sore throat, congestion, cough Labs chest x-ray COVID and strep tests ordered This is rapid medical exam from triage pending full evaluation from ER provider for follow-up of her results, full history and physical and disposition Discharge Plan Discharge Prescriptions: No Action (DME) blood pressure monitor [Blood Pressure Kit] Kit See Rx Instructions .Route Qty: 1 0RF Rx Instructions: As directed (DME) CANE See Rx Instructions .Route .MEDSUPPLY Qty: 1 0RF Rx Instructions: As directed (DME) WRIST BRACE See Rx Instructions .Route .MEDSUPPLY Qty: 1 0RF Rx Instructions: As directed (DME) BATH CHAIR See Rx Instructions .Route .MEDSUPPLY Qty: 1 0RF Rx Instructions: As directed (DME) LIFELINE ALERT SYSTEM See Rx Instructions .Route .MEDSUPPLY Qty: 1 0RF Rx Instructions: As directed (DME) ALCOHOL PADS See Rx Instructions .Route .MEDSUPPLY Qty: 100 3RF Rx Instructions: As directed (DME) ROLLATOR See Rx Instructions .Route .MEDSUPPLY Qty: 1 0RF Rx Instructions: As directed (DME) SHOWER WAND See Rx Instructions .Route .MEDSUPPLY Qty: 1 0RF Rx Instructions: As directed (DME) SHOWER BAR See Rx Instructions .Route .MEDSUPPLY Qty: 1 0RF Rx Instructions: As directed (DME) Bedside commode See Rx Instructions .Route .MEDSUPPLY Qty: 1 0RF Rx Instructions: As directed (DME) Bed pads See Rx Instructions .Route .MEDSUPPLY Qty: 100 12RF Rx Instructions: As directed (DME) SANITARY PADS See Rx Instructions .Route .MEDSUPPLY Qty: 100 12RF Rx Instructions: As directed simethicone 40 mg/0.6 mL drops,suspension 0.6 ml PO BID-TID PRN (Reason: abdominal distention) Qty: 15 0RF Ensure Complete 0.1 gram-1.18 kcal/mL liquid 1 ea PO TID Qty: 1184 12RF polyethylene glycol 3350 [Miralax] 17 gram powder in packet 17 g PO DAILY Qty: 14 3RF Rx Instructions: Use daily until you have a normal bowel movement, then stop. Magic Mouthwash Diphen/Lido/Antacid 1:1:1 240 mL suspension 10 ml PO TID 2 Days Qty: 240 0RF Rx Instructions: Lidocaine Viscous 2 % 80mL; diphenhydramine 12.5 mg/5 mL 80mL; aluminum-mag hydrox-simeth 393ql-382mf-57bn/5mL 80mL. swallow the medication lansoprazole [Prevacid SoluTab] 30 mg tablet,disintegrat, delay rel 30 mg PO DAILY Qty: 30 0RF lansoprazole [Prevacid] 30 mg capsule,delayed release(DR/EC) 30 mg PO DAILY Qty: 30 0RF sucralfate [Carafate] 100 mg/mL suspension 5 ml PO QID Qty: 1000 0RF Rx Instructions: swish in mouth and swallow; use after food/drink tramadol 50 mg tablet 50 mg PO Q6H PRN (Reason: pain) 15 Days Qty: 60 0RF alum-mag hydroxide-simeth [Maalox Advanced] 200-200-20 mg/5 mL suspension 5 ml PO 5XD PRN (Reason: indigestion) Qty: 355 0RF Rx Instructions: administer between meals and at bedtime tneyscczt-uxbkao-ssgcozne-scop [] 16.2 mg-0.1037 mg/5 mL (5 mL) elixir 5 ml PO BID PRN (Reason: indigestion) Qty: 50 0RF ondansetron 4 mg tablet,disintegrating 4 mg PO Q8H PRN (Reason: nausea and vomiting) Qty: 10 0RF acetaminophen 500 mg/15 mL liquid 1,000 mg PO Q6H PRN (Reason: pain) Qty: 1000 0RF ondansetron 4 mg tablet,disintegrating 4 mg PO Q8H Qty: 20 0RF famotidine 40 mg/5 mL (8 mg/mL) suspension 20 mg PO BID Qty: 50 3RF sumatriptan 5 mg/actuation spray,non-aerosol 5 mg intranasal Q2-4H PRN (Reason: migraine headache) Qty: 6 1RF Rx Instructions: into each nostril once; if headache remains, may repeat total dose once after at least 2 hours lidocaine 5 % adhesive patch,medicated 1 patch topical DAILY Qty: 15 0RF Rx Instructions: leave on most painful area for up to 12 hrs cyclobenzaprine 5 mg tablet 5 mg PO Q8H PRN (Reason: pain (scale score 7-10)) 5 Days Qty: 14 0RF azithromycin [Zithromax Z-Jorge] 250 mg tablet See Rx Instructions .ROUTE .COMPLEX Qty: 6 0RF Rx Instructions: For 250 mg dose pack: take 500 mg today (day 1), then 250 mg for 4 days (days 2-5) prednisone 20 mg tablet 20 mg PO BID Qty: 10 0RF albuterol sulfate 90 mcg/actuation HFA aerosol inhaler 1 inh inhalation QID PRN (Reason: shortness of breath or wheezing) Qty: 8.5 0RF prochlorperazine [Compro] 25 mg suppository 25 mg OK Q12H PRN (Reason: nausea and vomiting) Qty: 12 0RF Miracle Mouthwash-Alan 240 mL liquid 15 ml PO BID Qty: 240 0RF Rx Instructions: Nystatin susp 80 mL;Lidocaine 2% Visc 80 mL; Maalox 80 mL; Swish and spit fsvvcdmiy-ssptoq-apdogakg-scop [] 16.2 mg-0.1037 mg/5 mL (5 mL) elixir 5 ml PO BID PRN (Reason: indigestion) Qty: 50 0RF fluticasone propionate [Flonase Allergy Relief] 50 mcg/actuation spray,suspension 1 spray intranasal DAILY Qty: 100 0RF Rx Instructions: administer into each nostril (DME) blood-glucose meter [OneTouch Verio Meter] Misc See Rx Instructions .Route Rx Instructions: As directed (DME) OneTouch Verio test strips Strip See Rx Instructions .Route Rx Instructions: As directed 3 times a day (DME) lancets [OneTouch Delica Lancets] 33 gauge misc See Rx Instructions .Route Rx Instructions: As directed 3 times a day zolpidem 10 mg tablet 10 mg PO BEDTIME PRN triamcinolone acetonide 0.1 % cream topical
[2023-04-07 15:16] LABS: Appearance Urine Cloudy; Color Urine Yellow; Glucose Urine UA Negative (Negative); Leukocyte Esterase Urine Negative (Negative); Nitrite Urine Negative (Negative); PH 8.5 (5.0-9.0); Urine Blood Negative (Negative); Urine Ketones Negative (Negative); Urine Protein Trace mg/dL (Neg-Trace)
[2023-04-07 15:27] LABS: IDNOW Serial# 08D9AD1C; Strep A Nucleic Acid Negative (Negative)
[2023-04-07 15:31] LABS: IDNOW Serial# 9DB6401D; Influenza A Negative (Negative); Influenza B2 Negative (Negative)
[2023-04-07 15:32] LABS: COVID-19 Test Negative (Negative); IDNOW Serial# BCCEAD1C
== END 2023-04-07 18:29 | disposition left against medical advice (07) ==
PROVIDERS: Physician Assistant Medical; Emergency Provider Emergency Medicine
DX: R11.2 Nausea with vomiting, unspecified (principal); R10.9 Unspecified abdominal pain; J02.9 Acute pharyngitis, unspecified; Z20.822 Contact with and (suspected) exposure to COVID-19
CPT/HCPCS: 81003; 87502; 87635; 87651; 99282; 99283

== ENCOUNTER 2023-04-16 10:51 | Outpatient (AMB) | payer OTHER, SELFPAY ==
[2023-04-16 10:55] VITALS: BP 120/82
--- NOTE | 2023-04-16 10:55 | A.OFFPC_ITS ---
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: No Accompanied by: Self / Same As Patient Allergies tomato [TOMATO] Allergy (Mild, Verified 04/16/23 10:57) HIVES DIFFICULTY BREATHING hydrocodone [HYDROCODONE] Allergy (Unknown, Verified 04/16/23 10:57) RASH, AIRWAY CLOSES ibuprofen [From MOTRIN] Allergy (Unknown, Verified 04/16/23 10:57) STOMACH UPSET, vomiting trazodone [TRAZODONE] Allergy (Unknown, Verified 04/16/23 10:57) UNKNOWN, stomach upset black pepper [BLACK PEPPER] Adverse Reaction (Severe, Verified 04/16/23 10:57) DIFFICULTY BREATHING, hives lisinopril Adverse Reaction (Severe, Verified 04/16/23 10:57) Anaphylaxis Medication List - Last Reconciled 04/16/23 by Deirdre Cantrell MD acetaminophen 1,000 mg (30 mL) PO Q6H PRN [ALCOHOL PADS As directed] alum-mag hydroxide-simeth 200-200-20 mg/5 mL (Maalox Advanced) 5 mL PO 5XD PRN [BATH CHAIR As directed] [Bed pads As directed] [Bedside commode As directed] blood pressure monitor (Blood Pressure Kit) As directed blood sugar diagnostic (Neura Verio test strips) As directed 3 times a day blood-glucose meter (Neura Verio Meter) As directed [CANE As directed] cyclobenzaprine 5 mg PO Q8H PRN 5 days famotidine 20 mg (2.5 mL) PO BID fluticasone propionate 50 mcg/actuation (Flonase Allergy Relief) 1 spray intranasal DAILY food supplemt, lactose-reduced (Ensure Complete) 1 ea PO TID iron-folic acid-mv, min cmb#15 106 mg iron- 1 mg 1 cap PO DAILY lancets (Neura Delica Lancets) As directed 3 times a day [[employer] ALERT SYSTEM As directed] Miracle Mouthwash-Alan 15 mL PO BID ondansetron 4 mg PO Q8H pantoprazole 40 mg PO BID 90 days lqjkybtln-asfpzx-zfnysbwa-scop 16.2 mg-0.1037 mg/5 mL (5 mL) () 5 mL PO BID PRN polyethylene glycol 3350 (Miralax) 17 grams PO DAILY prochlorperazine (Compro) 25 mg KS Q12H PRN [ROLLATOR As directed] [SANITARY PADS As directed] [SHOWER BAR As directed] [SHOWER WAND As directed] simethicone 0.6 mL PO BID-TID PRN sucralfate (Carafate) 5 mL PO QID sumatriptan 5 mg/actuation 5 mg intranasal Q2-4H PRN tramadol 50 mg PO TID PRN 30 days triamcinolone acetonide 0.1% appl topical [WRIST BRACE As directed] zolpidem 10 mg PO BEDTIME PRN Tobacco use date assessed: 08/23/22 Dental Screening Dental Screen Date: 04/16/23 Did you have a dental visit in the last 12 months?: No Did you have a dental problem in the last 6 months where you did not have access to dental care?: No Was dental information given to patient?: Yes HPI Discuss referrals HPI Details 42-year-old female with patient has a hi story of gastrectomy(September 2021), hypercholesterolemia GERD chronic low back pain coming in for follow-up last seen in January 2023. Review of the notes has been following up with the bariatric surgeon diagnosis of post gastrectomy malabsorption. ER visit of April 07 for nausea and vomit and abdominal pain patient has seen gastroenterology also in February 2023 concern about caloric deficiency and malnutrition secondary to dysphagia leading to severe esophagitis and esophageal stricture secondary profound reflux this seems to be of refractory to PPI use patient is on discussion for revision of the bypass.. Patient also is being followed by hematology oncology for iron infusion due to inadequate oral absorption. Patient will have another procedure in 05/2023 to fix the gastrectomy . patient will have colon test in 04/2023. PAtient recently seen Dr. Driscoll and concern about the anemia- advised to call Dr. Ceballos for another iron infusion. Patient needed some refills on Maalox Carafate pantoprazole and tramadol for the low back pain. Patient has been told by the bariatric surgeon that the blood count was low and needed iron infusion discussed with the patient that since the hematology oncology knows her that she can call to get a sooner schedule. 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 Diverticulosis GERD (gastroesophageal reflux disease) History of bipolar disorder History of schizophrenia Hypercholesterolemia Hypertension Insomnia Numbness of left hand Renal calculi Spondylosis of lumbar spine Type 2 diabetes mellitus with hyperglycemia Vitamin D deficiency Surgical History History of esophagogastroduodenoscopy (EGD) Hx of colonoscopy Hx of bariatric surgery History of tubal ligation H/O: hysterectomy Family History Father Medical history unknown Mother Medical history unknown Paternal Aunt Uterine cancer Diabetes Hypertension Paternal Uncle Liver cancer Heart attack Maternal Aunt Stroke Family/Other Chronic mental illness Sister Uterine cancer Schizophrenia Brother Substance abuse Other Mental health disorder Social History Household Members: None Housing: Apartment Do you presently have visiting nurse or other home services: Yes Alcohol intake: never Patient Tobacco Use Status: Never used Tobacco e-Cigarette/Vaping Use: Never Used Second Hand Smoke Exposure: No Substance Use Type: Marijuana service: No Current occupational status: disabled Current occupational exposures/hazards: No Cognitive needs: No Hearing needs: No Vision needs: Yes Female Reproductive History Menstrual Age of Menarche: 11 Questionnaire Thrive Questionnaire Date Thrive assessed: 08/23/22 JUDITH-7 AMB Questionnaire JUDITH-7 Date JUDITH - 7 assessed: 08/23/22 Source: Developed by Drs. Dinesh Freire, Niru Dimas, Denys Dodson and colleagues, with an educational mihai from [employer]. Physical exam (Primary Care) Vital Signs: Last Vital Signs BP 120/82 04/16/23 10:55 BMI result Body Mass Index 20.0 Tobacco/Smoking Status: Tobacco use Status Tobacco use date assessed 08/23/22 04/16/23 11:07 Patient Tobacco Use Status Never used Tobacco 04/16/23 11:07 e-Cigarette/Vaping Use Never Used 04/16/23 11:07 Thrive Assessment: Date of Thrive Assessment Date Thrive assessed 08/23/22 04/16/23 11:07 Const General: alert; No acute distress Eyes Conjunctivae: conjunctivae normal Resp Auscultation: clear to auscultation bilaterally Cardio Rate: regular rate Rhythm: regular rhythm GI Inspection: Yes normal to inspection Extrem General: Yes normal to inspection and No edema Assessment and Plan Assessment & Plan (1) S/P gastric sleeve procedure: Comment: 10/19/21 - Bhavna assisted gastric sleeve gastrectomy by Dr. Driscoll Code(s): Z90.3 - Acquired absence of stomach [part of] Plan: Patient is following up with the bariatric surgeon question of need for revision (2) GERD (gastroesophageal reflux disease): Code(s): K21.9 - Gastro-esophageal reflux disease without esophagitis Plan: Avoid the foods that causes that usually spicy foods, tomato products, juices, coffee, soda and foods that your sensitive to. After eating do not lie down, allow 3-4 hours before in lie down. And keep the head of bed above 30 degrees to avoid the acid from going up. Patient has follow-up with the bariatric surgeon for question of revision (3) Anemia: Code(s): D64.9 - Anemia, unspecified Plan: Patient is being followed up by hematology oncology had iron infusion (4) Lumbar radiculopathy, chronic: Code(s): M54.16 - Radiculopathy, lumbar region (5) Vision changes: Code(s): H53.9 - Unspecified visual disturbance (6) Cataract: Code(s): H26.9 - Unspecified cataract Orders: Referrals Ophthalmology Referral H26.9 - Unspecified cataract Medications: New iron-folic acid-mv, min cmb#15 106 mg iron- 1 mg 1 cap PO DAILY 30 caps 4RF D64.9 - Anemia, unspecified pantoprazole 40 mg PO BID 180 tabs 1RF 90 days K91.2 - Postsurgical malabsorption, not elsewhere classified, Z90.3 - Acquired absence of stomach [part of] Changed From tramadol 50 mg PO Q6H PRN 60 tabs 0RF pain 15 days M54.10 - Radiculopathy, site unspecified To tramadol 50 mg PO TID PRN 90 tabs 0RF pain 30 days M54.10 - Radiculopathy, site unspecified Refilled sucralfate (Carafate) swish in mouth and swallow; use after food/drink 5 mL PO QID 1,000 mL 0RF D64.9 - Anemia, unspecified alum-mag hydroxide-simeth 200-200-20 mg/5 mL (Maalox Advanced) administer between meals and at bedtime 5 mL PO 5XD PRN 355 mL 4RF indigestion D64.9 - Anemia, unspecified Discontinued lansoprazole (Prevacid) Discontinued Reason: Ancillary Entered New Order 30 mg PO DAILY 90 caps 1RF Coding Level of Care Code Est Pt Level 4 (97471) Diagnoses S/P gastric sleeve procedure Z90.3 Gastroesophageal reflux disease without esophagitis K21.9 Anemia D64.9 Lumbar radiculopathy, chronic M54.16 Vision changes H53.9 Cataract H26.9
== END 2023-04-16 11:59 | disposition home or self-care (01) ==
PROVIDERS: Visit Provider Internal Medicine
DX: Z90.3 Acquired absence of stomach [part of] (principal); K21.9 Gastro-esophageal reflux disease without esophagitis; D64.9 Anemia, unspecified; M54.16 Radiculopathy, lumbar region; H53.9 Unspecified visual disturbance; H26.9 Unspecified cataract
CPT/HCPCS: 99214

== ENCOUNTER 2023-05-11 10:52 | Outpatient (REF) | payer OTHER, SELFPAY | END 2023-05-11 10:53 | disposition home or self-care (01) | LOC: HO.MDS 10:52 | PROVIDERS: Visit Provider Internal Medicine | DX: D50.8 Other iron deficiency anemias (principal) | CPT/HCPCS: 96365; J1756 ==

== ENCOUNTER 2023-05-15 | Outpatient (REF) | payer OTHER, SELFPAY | END 2023-05-15 00:01 | disposition home or self-care (01) | LOC: HO.MDS | PROVIDERS: Visit Provider Internal Medicine | DX: D50.8 Other iron deficiency anemias (principal) | CPT/HCPCS: 96365; J1756 ==

== ENCOUNTER 2023-05-17 12:59 | Day surgery (SDC) | payer OTHER, SELFPAY ==
--- NOTE | 2023-05-16 12:21 | P.CONAN_ITS ---
Documented by User: Elizabeth Cisneros NP 05/16/23 12:24 HPI - Anesthesia Eval Consult details Narrative: 42yo F for Upper Endoscopy s/p APC, EGD 02/2023 with GA-ETT 7 PMFSH Active Problems Active Problems: All Active Problems (Updated 04/16/23 @ 11:49 by Deirdre Cantrell MD) Cataract (Acute) Vision changes (Acute) Elevated platelet count (Acute) Lumbar back pain with radiculopathy affecting right lower extremity (Acute) Gastritis (Acute) Gastric hourglass stricture or stenosis (Acute) Underweight (Acute) Esophagitis determined by endoscopy (Acute) Complex ovarian cyst (Acute) Tongue sore (Acute) Right ear pain (Acute) Abdominal bloating (Acute) Constipation (Acute) Urinary incontinence (Acute) Anemia (Chronic) Right leg numbness (Acute) Dysphagia (Acute) Postgastrectomy malabsorption (Acute) COVID-19 virus infection (Acute) Blurred vision, bilateral (Acute) Memory impairment (Acute) Melasma (Acute) Lumbar radiculopathy, chronic (Acute) Dysphagia (Acute) Annual physical exam (Acute) Hypoglycemia after GI (gastrointestinal) surgery (Acute) Pelvic pain (Acute) Vaginal irritation (Acute) Vaginitis (Acute) Syncope (Acute) ACTH elevation (Acute) Dysphagia (Acute) Malabsorption (Acute) Hypoglycemia (Acute) Adrenal insufficiency (Acute) S/P gastric sleeve procedure (Acute) Vitamin B 12 deficiency (Acute) Right hand pain (Acute) Radicular low back pain (Acute) Ulnar neuropathy (Acute) Hyperpigmentation (Acute) Alopecia (Acute) COVID-19 virus infection (Acute) Generalized anxiety disorder (Acute) Annual physical exam (Acute) Dysuria (Acute) Vaginal pruritus (Acute) Breast cancer screening by mammogram (Acute) Bilateral hand numbness (Acute) Hypersomnia (Acute) Yeast vaginitis (Acute) Low back pain (Acute) History of schizophrenia (Acute) Alcohol abuse (Acute) Renal calculi (Acute) 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 (Acute) Spondylosis of lumbar spine (Acute) GERD (gastroesophageal reflux disease) (Acute) Hypercholesterolemia (Acute) Hypertension (Acute) Past Medical History Medical History Numbness of left hand History of bipolar disorder History of schizophrenia 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 Spondylosis of lumbar spine Diverticulosis Insomnia Vitamin D deficiency GERD (gastroesophageal reflux disease) Carpal tunnel syndrome Hypercholesterolemia Renal calculi Hypertension Alcohol abuse Anxiety and depression Type 2 diabetes mellitus with hyperglycemia Family History Family History Father Medical history unknown Mother Medical history unknown Paternal Aunt Uterine cancer Diabetes Hypertension Paternal Uncle Liver cancer Heart attack Maternal Aunt Stroke Family/Other Chronic mental illness Sister Uterine cancer Schizophrenia Brother Substance abuse Other Mental health disorder Family history of problems with anesthesia: No Surgical History Surgical History History of esophagogastroduodenoscopy (EGD) Hx of colonoscopy Hx of bariatric surgery History of tubal ligation H/O: hysterectomy History of Problems with Anesthesia: No Social History Social History Household Members: None Housing: Apartment Do you presently have visiting nurse or other home services: Yes Alcohol intake: never Patient Tobacco Use Status: Never used Tobacco e-Cigarette/Vaping Use: Never Used Second Hand Smoke Exposure: No Substance Use Type: Marijuana Advance Directives: No Advance Directives Information Provided: Yes service: No Current occupational status: disabled Current occupational exposures/hazards: No Cognitive needs: No Hearing needs: No Vision needs: Yes Meds Allergies Allergy/AdvReac Type Severity Reaction Status Date / Time hydrocodone [HYDROCODONE] Allergy Severe RASH, Verified 05/15/23 13:20 AIRWAY CLOSES ibuprofen [From MOTRIN] Allergy Intermediate STOMACH Verified 05/15/23 13:20 UPSET, vomiting trazodone [TRAZODONE] Allergy Intermediate stomach Verified 05/15/23 13:20 upset/anxiety tomato [TOMATO] Allergy Mild HIVES Verified 04/16/23 10:57 DIFFICULTY BREATHING black pepper [BLACK PEPPER] AdvReac Severe DIFFICULTY Verified 04/16/23 10:57 BREATHING, hives lisinopril AdvReac Severe Anaphylaxis Verified 04/16/23 10:57 Home Medications Medication Instructions Recorded Confirmed Last Taken Type blood sugar diagnostic (OneTouch 08/15/22 02/01/23 Unknown History Verio test strips) blood-glucose meter (OneTouch 08/15/22 02/01/23 Unknown History Verio Meter) lancets 33 gauge (OneTouch Delica 08/15/22 02/01/23 Unknown History Lancets) triamcinolone acetonide 0.1 % 1 appl topical DAILY 02/07/23 05/15/23 Unknown History topical cream zolpidem 10 mg tablet 10 mg PO BEDTIME PRN Insomnia 02/07/23 05/15/23 Unknown History Exam Exam Date and Time: May 16, 2023 1221 Height,Weight and Vital Signs: Height 5 ft 1 in Weight 48.081 kg Pertinent Lab Results Pertinent Lab Results: Laboratory Tests 03/20/23 03/20/23 04/17/23 17:39 17:39 11:03 WBC Hgb 11.1 L Hct 35.2 L Plt Count 505 H Sodium 140 Potassium 4.4 Chloride 105 Carbon Dioxide 27 BUN 12 Creatinine 0.63 04/17/23 11:03 WBC 4.4 L Hgb Hct Plt Count Sodium Potassium Chloride Carbon Dioxide BUN Creatinine Narrative Narrative: EKG 01/2023 Vent. Rate : 077 BPM Atrial Rate : 077 BPM P-R Int : 142 ms QRS Dur : 092 ms QT Int : 348 ms P-R-T Axes : 074 081 051 degrees QTc Int : 393 ms Normal sinus rhythm Possible Left atrial enlargement Borderline ECG When compared with ECG of 04-FEB-2023 11:41, No significant change was found Assessment and Plan Assessment Anesthesia Assessment: Chart Reviewed Final Anesthetic Review Family History of Problems with Anesthesia: No History of Problems with Anesthesia: No Documented by User: Faizan Crandall MD 05/17/23 13:35 [facility] Past Medical History Medical History Numbness of left hand History of bipolar disorder History of schizophrenia 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 Spondylosis of lumbar spine Diverticulosis Insomnia Vitamin D deficiency GERD (gastroesophageal reflux disease) Carpal tunnel syndrome Hypercholesterolemia Renal calculi Hypertension Alcohol abuse Anxiety and depression Type 2 diabetes mellitus with hyperglycemia Family History Family History Father Medical history unknown Mother Medical history unknown Paternal Aunt Uterine cancer Diabetes Hypertension Paternal Uncle Liver cancer Heart attack Maternal Aunt Stroke Family/Other Chronic mental illness Sister Uterine cancer Schizophrenia Brother Substance abuse Other Mental health disorder Surgical History Surgical History History of esophagogastroduodenoscopy (EGD) Hx of colonoscopy Hx of bariatric surgery History of tubal ligation H/O: hysterectomy Social History Social History Household Members: None Housing: Apartment Do you presently have visiting nurse or other home services: Yes Alcohol intake: never Patient Tobacco Use Status: Never used Tobacco e-Cigarette/Vaping Use: Never Used Second Hand Smoke Exposure: No Substance Use Type: Marijuana Advance Directives: No Advance Directives Information Provided: Yes service: No Current occupational status: disabled Current occupational exposures/hazards: No Cognitive needs: No Hearing needs: No Vision needs: Yes Meds Allergies Allergy/AdvReac Type Severity Reaction Status Date / Time hydrocodone [HYDROCODONE] Allergy Severe RASH, Verified 05/15/23 13:20 AIRWAY CLOSES ibuprofen [From MOTRIN] Allergy Intermediate STOMACH Verified 05/15/23 13:20 UPSET, vomiting trazodone [TRAZODONE] Allergy Intermediate stomach Verified 05/15/23 13:20 upset/anxiety tomato [TOMATO] Allergy Mild HIVES Verified 04/16/23 10:57 DIFFICULTY BREATHING black pepper [BLACK PEPPER] AdvReac Severe DIFFICULTY Verified 04/16/23 10:57 BREATHING, hives lisinopril AdvReac Severe Anaphylaxis Verified 04/16/23 10:57 Home Medications Medication Instructions Recorded Confirmed Last Taken Type blood sugar diagnostic (The Echo SystemTouch 08/15/22 02/01/23 Unknown History Verio test strips) blood-glucose meter ([employer] SystemTouch 08/15/22 02/01/23 Unknown History Verio Meter) lancets 33 gauge (OneTouch Delica 08/15/22 02/01/23 Unknown History Lancets) triamcinolone acetonide 0.1 % 1 appl topical DAILY 02/07/23 05/15/23 Unknown History topical cream zolpidem 10 mg tablet 10 mg PO BEDTIME PRN Insomnia 02/07/23 05/15/23 Unknown History Exam Airway Mallampati Class: II TM Dist: >3cm Neck ROM: Full Denture: Upper Partial: Lower Loose/Missing/Broken Teeth: Yes Assessment and Plan Assessment Anesthesia Assessment: Anesthesia Plan Discussed Final Anesthetic Review NPO: Yes ASA Class: III Final Preanesthetic Review: No Changes in Pt Med Stat, Meds/Allgs Chart Reviewed, Consent Obtained/Reviewed and Anes Risks/Benef Reviewed Patient Risk: Intermediate Procedure Risk: Low Anesthetic Plan Anesthetic Plan: MAC: Disposition: Standard PACU
[2023-05-17 13:16] VITALS: BP 112/75; PULSE 66; RESP 18; TEMP 37; O2SAT 96
[2023-05-17] MEDS: Lactated Ringers 1,000 ML 100 ML IVCONT (13:23)
[2023-05-17 13:24] LABS: Glucose, Whole Blood 65 mg/dL (60-115)
--- NOTE | 2023-05-17 13:31 | PC.NURSE ---
pt 1314 poc 65 @ 1314, c/o mild dizziness. bartholomew, warm and dry, spoke with Dr. Cranadll, D5W 50ml iv up at 1324 once iv access obtained, 1st stick #22 Lfa.
[2023-05-17] MEDS: Dextrose 5 % 50 ML 21 ML IV (13:36)
--- NOTE | 2023-05-17 13:36 | PC.NURSE ---
1324 D5W up (unable to scan). recheck at [address] Crandall aware, D5W up 100ml at kvo at 1345.
[2023-05-17] MEDS: Dextrose 5 % 100 ML 21 ML IV (13:48)
--- NOTE | 2023-05-17 14:11 | PC.NURSE ---
Dr. Crandall notified of poc bs 68 at 1400, order received to give iv push D50% for 12.5 ml x 1 and recheck. pharmacy notified and will bring to preop. pt does not feel symptomatic until bs 20's and 30's before she is syncopal.
--- NOTE | 2023-05-17 14:17 | PC.NURSE ---
Dr. Crandall at this time decided to give pt entire amp of D50% IV. given at 1420.
[2023-05-17] MEDS: Dextrose 50 % 25 GM/50 ML SYRINGE IVPUSH ×2 (14:18→14:19)
--- NOTE | 2023-05-17 14:25 | PC.NURSE ---
orrection, entire amp iv d50% (total 25G), as ordered by dr. vincent
[2023-05-17 14:36] LABS: Glucose, Whole Blood 136 mg/dL (60-115)
[2023-05-17 14:36] LABS: Glucose, Whole Blood 68 mg/dL (60-115)
[2023-05-17 14:36] LABS: Glucose, Whole Blood 66 mg/dL (60-115)
--- NOTE | 2023-05-17 14:36 | MHC.SHP ---
Pre-Procedural Eval Section A Date of Service: 05/17/23 Section B Chief Complaint: Dysphagia, esophagitis Details of Present Illness: PMH: Alcohol abuse Anxiety and depression Carpal tunnel syndrome 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 Diverticulosis GERD (gastroesophageal reflux disease) History of bipolar disorder History of schizophrenia Hypercholesterolemia Hypertension Insomnia Numbness of left hand Renal calculi Spondylosis of lumbar spine Type 2 diabetes mellitus with hyperglycemia Vitamin D deficiency Surgical History: H/O: hysterectomy History of esophagogastroduodenoscopy (EGD) History of tubal ligation Hx of bariatric surgery Hx of colonoscopy Present Medications: see Short Stay Collaborative assessment Allergies: Allergies Allergy/AdvReac Type Severity Reaction Status Date / Time hydrocodone [HYDROCODONE] Allergy Severe RASH, Verified 05/15/23 13:20 AIRWAY CLOSES ibuprofen [From MOTRIN] Allergy Intermediate STOMACH Verified 05/15/23 13:20 UPSET, vomiting trazodone [TRAZODONE] Allergy Intermediate stomach Verified 05/15/23 13:20 upset/anxiety tomato [TOMATO] Allergy Mild HIVES Verified 04/16/23 10:57 DIFFICULTY BREATHING black pepper [BLACK PEPPER] AdvReac Severe DIFFICULTY Verified 04/16/23 10:57 BREATHING, hives lisinopril AdvReac Severe Anaphylaxis Verified 04/16/23 10:57 Review of Systems Review of Systems Comment: 10 point ROS as above Exam Exam Comment: Gen appear: No acute distress HEENT: no icterus Chest: No overt resp distress Abd: soft, nontender, nondistended Psych: Stable affect, answering questions appropriately Neuro: A/Ox3 noted to move all extremities spontaneously Ext: no peripheral edema Plan Diagnosis/Plan: Unchanged I have reviewed the history and physical and performed a pertinent physical examination on my patient. No changes have occurred unless specified. Time Spent With Patient Time: Total time managing care of this patient today ____ minutes.
--- NOTE | 2023-05-17 14:42 | P.OP_ITS ---
Operative Note Operative Note Date of Service: 03/07/23 Narrative: Procedure: Esophagogastroduodenoscopy Endoscopist: Mi Leavitt MD Indication: Dysphagia, esophageal stricture Anesthesia Provider: Dr Faizan Crandall Anesthesia Type: MAC ?? EGD Procedure:?? The procedure, indications, preparation and potential complications were reviewed with the patient, who indicated understanding and gave written informed consent to proceed. A physical exam was performed. The endoscope was introduced through the mouth, and advanced to the second part of duodenum. The mucosa was carefully examined on slow withdrawal of the endoscope. The patient tolerated the procedure well. There were no immediate complications.? ? EGD Findings:? * Esophagus:? Grade D esophagitis from 32-35 cm. No obvious narrowing was noted and empiric balloon dilation was not attempted due to severity of esophagitis. Previously seen ulcer of GEJ has healed. * Stomach:? Evidence of sleeve gastrectomy with tubular stomach which did not allow for retroflexion. Mild erythema in antrum but otherwise normal mucosa. Stomach has previously been biopsied (11/2022) and therefore biopsies were not obtained today. * Duodenum:? Normal mucosa was noted in the whole of the examined duodenum. ? EGD Impressions:? * Grade D esophagitis * Tubular stomach s/p sleeve gastrectomy * Antral gastritis * Normal duodenum ?? Recommendations:?? * Improvement in esophagitis and gastritis/GAVE compared to previous endoscopic evaluation in 02/2023. * Cont PPI + H2 eldon + carafate * Stay upright for meals and 1h post meals. * Pt following up with Dr Driscoll with plan for RYGB in June per her report.
[2023-05-17 15:10] VITALS: BP 105/56; PULSE 71; RESP 15; TEMP 36.5; O2SAT 100
[2023-05-17 15:22] LABS: Glucose, Whole Blood 111 mg/dL (60-115)
[2023-05-17 15:34] VITALS: BP 105/56; PULSE 66; RESP 18; TEMP 36.1; O2SAT 100
== END 2023-05-17 15:43 | disposition home or self-care (01) ==
PROVIDERS: Visit Provider Internal Medicine
PROC: 0DJ08ZZ Inspection of Upper Intestinal Tract, Via Natural or Artificial Opening Endoscopic (ICD-10-PCS; CPT 43235; principal; 2023-05-17 15:00)
DX: K20.90 Esophagitis, unspecified without bleeding (principal); K29.60 Other gastritis without bleeding; K31.2 Hourglass stricture and stenosis of stomach; R13.10 Dysphagia, unspecified; K21.9 Gastro-esophageal reflux disease without esophagitis; Z90.3 Acquired absence of stomach [part of]; I10 Essential (primary) hypertension; E78.00 Pure hypercholesterolemia, unspecified; D64.9 Anemia, unspecified; F12.90 Cannabis use, unspecified, uncomplicated
CPT/HCPCS: 43235; 82947

== ENCOUNTER → 2023-05-17 12:59 | Outpatient (BNV) | payer OTHER, SELFPAY | PROVIDERS: Visit Provider Internal Medicine | DX: K22.2 Esophageal obstruction (principal); K20.90 Esophagitis, unspecified without bleeding; K29.70 Gastritis, unspecified, without bleeding; Z90.3 Acquired absence of stomach [part of] | CPT/HCPCS: 43235 ==

== ENCOUNTER 2023-05-23 11:00 | Emergency (ER) | payer OTHER, SELFPAY ==
--- NOTE | ~2023-05-23 | XR_ITS ---
EXAMINATION: XR CHEST CLINICAL INFORMATION: Cough with fever of 103 degrees. COMPARISON: None available. TECHNIQUE: Frontal view of the chest was obtained. FINDINGS: There is no gross pneumothorax. Heart size is normal. Mild rightward curvature of the lumbar spine. There is no gross pneumothorax. No pleural effusion. No focal consolidation to suggest pneumonia. XR/XR chest 1V IMPRESSION: No evidence of pneumonia. Lateral view should be considered for more complete evaluation.
[2023-05-23 11:18] VITALS: BP 120/79; PULSE 105; RESP 17; TEMP 39.2; O2SAT 95; BMI 21.0
--- NOTE | 2023-05-23 11:22 | ED_ITS ---
HPI - General Adult General Chief complaint: General Medical Stated complaint: Abd pain/SOB/Headache Time Seen by Provider: 05/23/23 13:38 Source: patient Mode of arrival: ambulatory Limitations: no limitations History of Present Illness HPI narrative: 42 yold female presents to the ED for cough, bilateral lung pain, headache and fever. Patient denies any chest pain or shortness of breath. patient denies any rash. Related Data Home Medications Medication Instructions Recorded Confirmed blood [facility] Verio test strips) blood[facility]glucose [facility] 02/01/23 Verio Meter) lancets 33 gauge (OneTouch Delica 08/15/22 02/01/23 Lancets) triamcinolone acetonide 0.1 % 1 appl topical DAILY 02/07/23 05/15/23 topical cream zolpidem 10 mg tablet 10 mg PO BEDTIME PRN Insomnia 02/07/23 05/15/23 Previous Rx's Medication Instructions Recorded blood pressure monitor (Blood #1 ea 10/31/21 Pressure Kit) BATH CHAIR #1 ea 01/31/22 CANE #1 ea 01/31/22 LIFELINE ALERT SYSTEM #1 ea 01/31/22 WRIST BRACE #1 ea 01/31/22 ALCOHOL PADS #100 ea 02/21/22 ROLLATOR #1 ea 05/23/22 SHOWER BAR #1 ea 06/08/22 SHOWER WAND #1 ea 06/08/22 Bed pads #100 ea 07/17/22 Bedside commode #1 ea 07/17/22 SANITARY PADS #100 ea 07/17/22 fluticasone propionate 50 1 spray intranasal DAILY #100 mL 07/27/22 mcg/actuation nasal spray,suspension (Flonase Allergy Relief) simethicone 40 mg/0.6 mL oral 0.6 ml PO BID-TID PRN abdominal 11/08/22 drops,suspension distention #15 mL acetaminophen 500 mg/15 mL oral 1,000 mg (30 mL) PO Q6H PRN pain 01/25/23 liquid #1,000 mL food supplemt, lactose-reduced 0.1 1 ea PO TID #1,184 mL 01/29/23 gram-1.18 kcal/ mL oral liquid (Ensure Complete) polyethylene glycol 3350 17 gram 17 g PO DAILY #14 ea 01/31/23 oral powder packet (Miralax) famotidine 40 mg/5 mL (8 mg/mL) 20 mg (2.5 mL) PO BID #50 mL 03/03/23 oral suspension ondansetron 4 mg disintegrating 4 mg PO Q8H nausea and vomiting 03/03/23 tablet #20 tabs sumatriptan 5 mg/actuation nasal 5 mg intranasal Q2-4H PRN migraine 03/03/23 spray headache #6 ea Miracle Mouthwash-Alan 240 mL 15 ml PO BID #240 mL 03/16/23 liquid scevjcjgg-lbsbnmhvv-nfouyfkg-scop 5 ml PO BID PRN indigestion #50 mL 03/16/23 16.2 mg-0.1037 mg/5 mL (5 mL) elixir () prochlorperazine 25 mg rectal 25 mg OK Q12H PRN nausea and 03/16/23 suppository (Compro) vomiting #12 ea cyclobenzaprine 5 mg tablet 5 mg PO Q8H PRN pain (scale score 03/20/23 7-10) 5 days #14 tabs aluminum-mag hydroxide-simethicone 5 ml PO 5XD PRN indigestion #355 mL 04/16/23 200 mg-200 mg-20 mg/5 mL oral susp (Maalox Advanced) iron-folic acid-multivitamin, 1 cap PO DAILY #30 caps 04/16/23 mineral comb#15 106 mg iron-1 mg capsule pantoprazole 40 mg tablet,delayed 40 mg PO BID 90 days #180 tabs 04/16/23 release sucralfate 100 mg/mL oral 5 ml PO QID #1,000 mL 04/16/23 suspension (Carafate) tramadol 50 mg tablet 50 mg PO TID PRN pain 30 days #90 04/25/23 tabs acetaminophen 160 mg/5 mL oral 320 mg (10 mL) PO Q6H PRN fever or 05/23/23 liquid pain #473 mL oseltamivir 6 mg/mL oral 75 mg (12.5 mL) PO BID 5 days #125 05/23/23 suspension (Tamiflu) mL cephalexin 250 mg capsule 250 mg PO QID #20 caps 05/26/23 Allergies Allergy/AdvReac Type Severity Reaction Status Date / Time hydrocodone [HYDROCODONE] Allergy Severe RASH, Verified 05/15/23 13:20 AIRWAY CLOSES ibuprofen [From MOTRIN] Allergy Intermediate STOMACH Verified 05/15/23 13:20 UPSET, vomiting trazodone [TRAZODONE] Allergy Intermediate stomach Verified 05/15/23 13:20 upset/anxiety tomato [TOMATO] Allergy Mild HIVES Verified 04/16/23 10:57 DIFFICULTY BREATHING black pepper [BLACK PEPPER] AdvReac Severe DIFFICULTY Verified 04/16/23 10:57 BREATHING, hives lisinopril AdvReac Severe Anaphylaxis Verified 04/16/23 10:57 Review of Systems 2 Review of Systems: fever, headache, bilateral lung pain, and cough Yes all other systems are reviewed and are negative PMFSH Past Medical History Medical History Numbness of left hand History of bipolar disorder History of schizophrenia 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 Spondylosis of lumbar spine Diverticulosis Insomnia Vitamin D deficiency GERD (gastroesophageal reflux disease) Carpal tunnel syndrome Hypercholesterolemia Renal calculi Hypertension Alcohol abuse Anxiety and depression Type 2 diabetes mellitus with hyperglycemia Surgical History History of esophagogastroduodenoscopy (EGD) Hx of colonoscopy Hx of bariatric surgery History of tubal ligation H/O: hysterectomy Family History Family History Father Medical history unknown Mother Medical history unknown Paternal Aunt Uterine cancer Diabetes Hypertension Paternal Uncle Liver cancer Heart attack Maternal Aunt Stroke Family/Other Chronic mental illness Sister Uterine cancer Schizophrenia Brother Substance abuse Other Mental health disorder Social History Social History Household Members: None Housing: Apartment Do you presently have visiting nurse or other home services: Yes Alcohol intake: never Patient Tobacco Use Status: Never used Tobacco Smoked in Last 30 Days: No e-Cigarette/Vaping Use: Never Used Second Hand Smoke Exposure: No Use of substances other than those prescribed or required for medical reasons: No Substance Use Type: Marijuana Advance Directives: No Advance Directives Information Provided: No Patient : No service: No Current occupational status: disabled Current occupational exposures/hazards: No Cognitive needs: No Hearing needs: No Vision needs: Yes Physical Exam ED Vital Signs: Vital Signs - 24 hr 05/23/23 11:18 Temperature 102.6 F H Pulse Rate 105 H Respiratory Rate 17 Blood Pressure 120/79 Pulse Oximetry 95 Oxygen Delivery Method Room Air BMI result Body Mass Index 21.0 Const General: cooperative, healthy appearing, comfortable, no acute distress, well developed and alert Orientation/consciousness: oriented to person, oriented to place, oriented to time and patient oriented x3 HENAZ Head: Yes normal to inspection, Yes No palpable skull fracture present, Yes normocephalic and Yes atraumatic Ears: hearing grossly normal bilaterally, external ears normal, TM's normal bilaterally, TM normal on the right, TM normal on the left, EAC's normal, mastoids normal and no periauricular adenopathy General nose exam: Normal external nose present, Normal nares present and No nasal polyps present Face and sinus: Yes normal facial exam, Yes sinuses nontender and Yes face symmetric Mouth: Normal oral and palatal mucosa present, lip normal and tongue normal Teeth and gingiva: dentition normal and gingiva normal Throat: Yes posterior oropharynx normal, Yes tonsils normal and Yes uvula midline Neck Neck: Yes normal visual inspection, Yes full ROM, Yes no lymphadenopathy, Yes no meningeal signs, Yes trachea midline, Yes supple, No anterior neck swelling and No tender Chest Chest palpation & inspection: normal inspection of the chest and normal palpation of entire chest wall Resp Effort & Inspection: normal respiratory effort and able to speak in complete sentences Auscultation: clear to auscultation bilaterally Cardio Jugular venous distension: no JVD Heart sounds: S1 normal heart sound present and S2 normal heart sound present GI Inspection: Yes normal to inspection and No abdominal wall ecchymosis Palpation (GI): Soft to palpation, not firm, nontender, no guarding and not rigid General: Yes no CVA tenderness Back/Spine/Pelvis Back: no CVA tenderness and No back tenderness Skin General skin exam: no rashes or lesions noted, elasticity normal and turgor normal Neuro General: oriented to person, oriented to place, oriented to time, patient oriented x3, gait normal, tone normal, moves all extremities, Normal light touch and pain sensation, no meningeal signs and no focal motor deficits Extrem General: Yes normal to inspection and Yes full ROM Psych Appearance: grossly normal and well kempt Course Course Course Narrative: RME: 42 yold female presents to the ED for coughing, fever, phelghm, diarrhea, chills, and headaches. CHest xray, covid, strep, influenza, and tylenol ordered Medications Administered Discontinued Medications Generic Name Dose Route Start Last Admin Trade Name Freq PRN Reason Stop Dose Admin Acetaminophen 650 mg 05/23/23 11:23 05/23/23 11:36 Acetaminophen Oral Liquid 650 Mg/20.3 Ml Solution PO 05/23/23 11:24 650 mg ONCE ONE Administration Medical Decision Making Medical Decision Making MDM Narrative: 42 yold female presents to the ED for URI symptoms, headache, and diarrhea for 3 days. patient states no chest pain. labs and CHest xray is normal. positive for the flu. Patient discharged with tamiflu. Patient is well appearing. Differential Diagnosis Differential Diagnoses: The differential diagnosis associated with the presentation includes (Influenza, strep, covid, pneumonia, gastroneteririts) Admission/Observation Consideration of admission/observation: Escalation of care including admission/observation considered Lab Data [facility] Lab Attestation statement: I reviewed the patient's lab results. 05/23/23 11:39 05/23/23 11:39 Labs: Lab Results 05/23/23 05/23/23 Range/Units 11:35 11:39 WBC 5.3 (4.8-10.8) X10*3/uL RBC 4.44 (4.20-5.50) X10*6/uL Hgb 11.1 L (12.0-16.0) g/dl Hct 34.6 L (37.0-47.0) % MCV 77.9 L (80.0-98.0) fL MCH 25.0 L (27.0-33.0) pg MCHC 32.1 (31.0-35.0) g/dl RDW 19.3 H (11.0-16.0) % Plt Count 372 D (160-400) X10*3/uL MPV 9.1 L (9.4-12.3) fL Immature Gran % (Auto) 0.6 H (0.0-0.4) % Neut % (Auto) 79.8 H (45-73) % Lymph % (Auto) 6.6 L (20-40) % [place] % (Auto) 12.0 H (2-11) % Eos % (Auto) 0.4 (0-4) % Baso % (Auto) 0.6 (0-2) % Lymph # (Auto) 0.4 L (1.2-4.9) X10*3/uL [place] # (Auto) 0.6 (0.1-1.2) X10*3/uL Eos # (Auto) 0.0 (0.0-0.4) X10*3/uL Baso # (Auto) 0.0 (0.0-0.2) X10*3/uL Abs Immat Gran (auto) 0.03 (0.00-0.03) X10*3/uL Absolute Neuts (auto) 4.3 (2.0-8.3) x10*3/uL Absolute Nucleated RBC 0.000 (0.0-0.012) X10*3/uL Nucleated RBC % (auto) 0.0 (0.0-0.2) /100WBC Sodium 136 (135-145) mmol/L Potassium 4.1 (3.3-5.1) mmol/L Chloride 101 (96-108) mmol/L Carbon Dioxide 27 (22-29) mmol/L Anion Gap 12 (12-20) BUN 11 (9-16) mg/dL Creatinine 0.72 (0.5-1.4) mg/dL Estim Creat Clear Calc 76.8 Estimated GFR > 60 Random Glucose 92 (60-115) mg/dL Lactic Acid 1.0 (0.5-2.0) mmol/L Calcium 9.4 (8.4-10.2) mg/dL Total Bilirubin 0.5 (0.0-1.0) mg/dL AST 13 (5-31) U/L ALT 7 (0-31) U/L Alkaline Phosphatase 75 (39-117) U/L Total Protein 7.4 (6.5-8.0) g/dL Albumin 4.3 (3.5-5.0) g/dL Beta HCG, Quant < 2 mIU/mL COVID-19 (ANGELA) Negative (Negative) COVID-19 Clin Com See Note Influenza Type A (BRIDGER) Positive A (Negative) Influenza Type B (BRIDGER) Negative (Negative) Influenza A & B Note See Note S. pyogenes GrpA BRIDGER Negative (Negative) Independent Interpretation I performed an independent interpretation of an: Plain X-Ray Radiology Impression Discussion of test interpretation with radiology: I have reviewed the radiologist's reading. External Record Review External record reviewed: Other (Prior visit) Prescription Management I considered prescription management with: Antiviral (tamiflu) Discharge Plan Discharge Clinical Impression: Influenza A Patient Disposition: Home, Self-Care Instructions: Influenza (ED) Additional Instructions: Eres positivo para la gripe. Regrese al servicio de urgencias de inmediato si presenta dolor en el pecho, dificultad para respirar, debilidad, mareos, tos con breann o cualquier otro s?ntoma preocupante. Le braeden?n el stephen con tamiflu y tylenol. Mikel un seguimiento con el PCP Prescriptions: New oseltamivir [Tamiflu] 6 mg/mL suspension for reconstitution 75 mg PO BID 5 Days Qty: 125 0RF acetaminophen 160 mg/5 mL liquid 320 mg PO Q6H PRN (Reason: fever or pain) Qty: 473 0RF No Action (DME) blood pressure monitor [Blood Pressure Kit] Kit See Rx Instructions .Route Qty: 1 0RF Rx Instructions: As directed (DME) CANE See Rx Instructions .Route .MEDSUPPLY Qty: 1 0RF Rx Instructions: As directed (DME) WRIST BRACE See Rx Instructions .Route .MEDSUPPLY Qty: 1 0RF Rx Instructions: As directed (DME) BATH CHAIR See Rx Instructions .Route .MEDSUPPLY Qty: 1 0RF Rx Instructions: As directed (DME) LIFELINE ALERT SYSTEM See Rx Instructions .Route .MEDSUPPLY Qty: 1 0RF Rx Instructions: As directed (DME) ALCOHOL PADS See Rx Instructions .Route .MEDSUPPLY Qty: 100 3RF Rx Instructions: As directed (DME) ROLLATOR See Rx Instructions .Route .MEDSUPPLY Qty: 1 0RF Rx Instructions: As directed (DME) SHOWER WAND See Rx Instructions .Route .MEDSUPPLY Qty: 1 0RF Rx Instructions: As directed (DME) SHOWER BAR See Rx Instructions .Route .MEDSUPPLY Qty: 1 0RF Rx Instructions: As directed (DME) Bedside commode See Rx Instructions .Route .MEDSUPPLY Qty: 1 0RF Rx Instructions: As directed (DME) Bed pads See Rx Instructions .Route .MEDSUPPLY Qty: 100 12RF Rx Instructions: As directed (DME) SANITARY PADS See Rx Instructions .Route .MEDSUPPLY Qty: 100 12RF Rx Instructions: As directed simethicone 40 mg/0.6 mL drops,suspension 0.6 ml PO BID-TID PRN (Reason: abdominal distention) Qty: 15 0RF Ensure Complete 0.1 gram-1.18 kcal/mL liquid 1 ea PO TID Qty: 1184 12RF polyethylene glycol 3350 [Miralax] 17 gram powder in packet 17 g PO DAILY Qty: 14 3RF Rx Instructions: Use daily until you have a normal bowel movement, then stop. tramadol 50 mg tablet 50 mg PO TID PRN (Reason: pain) 30 Days Qty: 90 0RF acetaminophen 500 mg/15 mL liquid 1,000 mg PO Q6H PRN (Reason: pain) Qty: 1000 0RF ondansetron 4 mg tablet,disintegrating 4 mg PO Q8H Qty: 20 0RF famotidine 40 mg/5 mL (8 mg/mL) suspension 20 mg PO BID Qty: 50 3RF sumatriptan 5 mg/actuation spray,non-aerosol 5 mg intranasal Q2-4H PRN (Reason: migraine headache) Qty: 6 1RF Rx Instructions: into each nostril once; if headache remains, may repeat total dose once after at least 2 hours cyclobenzaprine 5 mg tablet 5 mg PO Q8H PRN (Reason: pain (scale score 7-10)) 5 Days Qty: 14 0RF prochlorperazine [Compro] 25 mg suppository 25 mg OK Q12H PRN (Reason: nausea and vomiting) Qty: 12 0RF Miracle Mouthwash-Alan 240 mL liquid 15 ml PO BID Qty: 240 0RF Rx Instructions: Nystatin susp 80 mL;Lidocaine 2% Visc 80 mL; Maalox 80 mL; Swish and spit rbyvbltrn-zfpqkp-crncuobi-scop [] 16.2 mg-0.1037 mg/5 mL (5 mL) elixir 5 ml PO BID PRN (Reason: indigestion) Qty: 50 0RF cephalexin 250 mg capsule 250 mg PO QID Qty: 20 0RF iron-folic acid-mv, min cmb#15 106 mg iron- 1 mg capsule 1 cap PO DAILY Qty: 30 4RF sucralfate [Carafate] 100 mg/mL suspension 5 ml PO QID Qty: 1000 0RF Rx Instructions: swish in mouth and swallow; use after food/drink alum-mag hydroxide-simeth [Maalox Advanced] 200-200-20 mg/5 mL suspension 5 ml PO 5XD PRN (Reason: indigestion) Qty: 355 4RF Rx Instructions: administer between meals and at bedtime pantoprazole 40 mg tablet,delayed release (DR/EC) 40 mg PO BID 90 Days Qty: 180 1RF fluticasone propionate [Flonase Allergy Relief] 50 mcg/actuation spray,suspension 1 spray intranasal DAILY Qty: 100 0RF Rx Instructions: administer into each nostril (DME) blood-glucose meter [OneTouch Verio Meter] Misc See Rx Instructions .Route Rx Instructions: As directed (DME) OneTouch Verio test strips Strip See Rx Instructions .Route Rx Instructions: As directed 3 times a day (DME) lancets [OneTouch Delica Lancets] 33 gauge misc See Rx Instructions .Route Rx Instructions: As directed 3 times a day zolpidem 10 mg tablet 10 mg PO BEDTIME PRN (Reason: Insomnia) triamcinolone acetonide 0.1 % cream 1 appl topical DAILY Interventions: ED Discharge Assessment Last Done: 05/23/23 13:52 Discharge Date/Time: 05/23/23 13:52 Print Language: Scottish
[2023-05-23] MEDS: Acetaminophen Oral Liquid 650 MG/20.3 ML SOLUTION PO (11:36)
[2023-05-23 11:46] LABS: MANUAL DIFF FLAG NO
[2023-05-23 11:48] LABS: Basophils Percent Auto 0.6 % (0-2); Eosinophils Percent Auto 0.4 % (0-4); Hematocrit 34.6 % (37.0-47.0); Hemoglobin 11.1 g/dl (12.0-16.0); Imm Gran Abs Auto 0.03 X10*3/uL (0.00-0.03); Imm Gran Pct Auto 0.6 % (0.0-0.4); Lymphocytes Absolute Auto 0.4 X10*3/uL (1.2-4.9); Lymphocytes Percent Auto 6.6 % (20-40); Mean Corpuscular HGB Conc 32.1 g/dl (31.0-35.0); Mean Corpuscular Volume 77.9 fL (80.0-98.0); Mean Platelet Volume 9.1 fL (9.4-12.3); Monocytes Absolute Auto 0.6 X10*3/uL (0.1-1.2); Neutrophils Absolute Auto 4.3 x10*3/uL (2.0-8.3); Neutrophils Percent Auto 79.8 % (45-73); Platelet Count 372 X10*3/uL (160-400); Red Blood Count 4.44 X10*6/uL (4.20-5.50); Red Cell Distribution Width 19.3 % (11.0-16.0); White Blood Count 5.3 X10*3/uL (4.8-10.8)
[2023-05-23 12:10] LABS: Alanine Aminotransferase 7 U/L (0-31); Albumin Level 4.3 g/dL (3.5-5.0); Alkaline Phosphatase 75 U/L (39-117); Anion Gap 12 (12-20); Aspartate Amino Transferase 13 U/L (5-31); Bilirubin Total 0.5 mg/dL (0.0-1.0); Blood Urea Nitrogen 11 mg/dL (9-16); Calcium 9.4 mg/dL (8.4-10.2); Carbon Dioxide 27 mmol/L (22-29); Chloride 101 mmol/L (96-108); Creatinine Clr Calc Pharmacy 76.8; Estimated Glomerular Filt Rate > 60; Glucose Random 92 mg/dL (60-115); Potassium 4.1 mmol/L (3.3-5.1); Sodium 136 mmol/L (135-145); Total Protein 7.4 g/dL (6.5-8.0)
[2023-05-23 12:16] LABS: HCG Quantitative < 2 mIU/mL
[2023-05-23 12:17] LABS: IDNOW Serial# 08D9AD1C; IDNOW Serial# 9DB6401D; Influenza A Positive (Negative); Strep A Nucleic Acid Negative (Negative)
[2023-05-23 12:18] LABS: COVID-19 Test Negative (Negative); IDNOW Serial# 55D5AD1C; Influenza B2 Negative (Negative)
[2023-05-23 13:37] VITALS: BP 117/70; PULSE 89; RESP 17; TEMP 37.6; O2SAT 94
== END 2023-05-23 13:52 | disposition home or self-care (01) ==
PROVIDERS: Physician Assistant; Emergency Provider Emergency Medicine; PCP Internal Medicine
DX: J10.1 Influenza due to other identified influenza virus with other respiratory manifestations (principal); Z11.52 Encounter for screening for COVID-19
CPT/HCPCS: 36415; 71045; 80053; 83605; 84702; 85025; 87040; 87502; 87635; 87651; 99283

== ENCOUNTER 2023-05-24 10:57 | Outpatient (REF) | payer OTHER, SELFPAY | END 2023-05-24 10:58 | disposition home or self-care (01) | LOC: HO.MDS 10:57 | PROVIDERS: Visit Provider Internal Medicine | DX: D50.8 Other iron deficiency anemias (principal) | CPT/HCPCS: 96365; J1756 ==

== ENCOUNTER 2023-05-26 13:11 | Emergency (ER) | payer OTHER, SELFPAY ==
--- NOTE | ~2023-05-26 | XR_ITS ---
EXAMINATION: XR CHEST CLINICAL INFORMATION: Right-sided chest pain. COMPARISON: Most recent chest radiograph dated 05/23/2023. TECHNIQUE: Frontal view of the chest was obtained. FINDINGS: The lungs are clear. The cardiomediastinal silhouette is normal in size. There is no pleural effusion or pneumothorax. No acute osseous abnormality. XR/XR chest 1V IMPRESSION: No acute cardiopulmonary findings.
--- NOTE | 2023-05-26 13:13 | ECG_ITS ---
Test Reason : CHEST PAIN Blood Pressure : / mmHG Vent. Rate : 067 BPM Atrial Rate : 067 BPM P-R Int : 140 ms QRS Dur : 094 ms QT Int : 376 ms P-R-T Axes : 074 079 059 degrees QTc Int : 397 ms Normal sinus rhythm Normal ECG When compared with ECG of 10-FEB-2023 11:51, No significant change was found Referred By: Kaylah Alejo Electronically Signed By:PEDRO HURD MD
[2023-05-26 13:42] VITALS: BP 129/87; PULSE 73; RESP 17; TEMP 36.6; O2SAT 100; BMI 21.4
--- NOTE | 2023-05-26 13:43 | ED.CHESTPAIN ---
HPI - Chest Pain General Chief Complaint: General Medical Stated Complaint: chest pain Time Seen by Provider: 05/26/23 16:21 Source: patient Mode of arrival: ambulatory Limitations: no limitations History of Present Illness HPI narrative: Patient history of anxiety depression seen here on 05/23 for URI symptoms diagnosed with influenza comes here for pain in the right chest for last 2 days radiating to right arm increases on palpation sharp in character no shortness of breath no significant cough pain is sharp in character reproducible on movement and palpation patient had slight touch of blood in the urine yesterday denies any urinary frequency or urgency Related Data Home Medications Medication Instructions Recorded Confirmed blood sugar diagnostic (TransifexTouch 08/15/22 02/01/23 Verio test strips) blood-glucose meter (TransifexTouch 08/15/22 02/01/23 Verio Meter) lancets 33 gauge (OneTouch Delica 08/15/22 02/01/23 Lancets) triamcinolone acetonide 0.1 % 1 appl topical DAILY 02/07/23 05/15/23 topical cream zolpidem 10 mg tablet 10 mg PO BEDTIME PRN Insomnia 02/07/23 05/15/23 Previous Rx's Medication Instructions Recorded blood pressure monitor (Blood #1 ea 10/31/21 Pressure Kit) BATH CHAIR #1 ea 01/31/22 CANE #1 ea 01/31/22 LIFELINE ALERT SYSTEM #1 ea 01/31/22 WRIST BRACE #1 ea 01/31/22 ALCOHOL PADS #100 ea 02/21/22 ROLLATOR #1 ea 05/23/22 SHOWER BAR #1 ea 06/08/22 SHOWER WAND #1 ea 06/08/22 Bed pads #100 ea 07/17/22 Bedside commode #1 ea 07/17/22 SANITARY PADS #100 ea 07/17/22 fluticasone propionate 50 1 spray intranasal DAILY #100 mL 07/27/22 mcg/actuation nasal spray,suspension (Flonase Allergy Relief) simethicone 40 mg/0.6 mL oral 0.6 ml PO BID-TID PRN abdominal 11/08/22 drops,suspension distention #15 mL acetaminophen 500 mg/15 mL oral 1,000 mg (30 mL) PO Q6H PRN pain 01/25/23 liquid #1,000 mL food supplemt, lactose-reduced 0.1 1 ea PO TID #1,184 mL 01/29/23 gram-1.18 kcal/ mL oral liquid (Ensure Complete) polyethylene glycol 3350 17 gram 17 g PO DAILY #14 ea 01/31/23 oral powder packet (Miralax) famotidine 40 mg/5 mL (8 mg/mL) 20 mg (2.5 mL) PO BID #50 mL 03/03/23 oral suspension ondansetron 4 mg disintegrating 4 mg PO Q8H nausea and vomiting 03/03/23 tablet #20 tabs sumatriptan 5 mg/actuation nasal 5 mg intranasal Q2-4H PRN migraine 03/03/23 spray headache #6 ea Miracle Mouthwash-Alan 240 mL 15 ml PO BID #240 mL 03/16/23 liquid lqmrnzjqr-qybfqalrb-uuqbvzvc-scop 5 ml PO BID PRN indigestion #50 mL 03/16/23 16.2 mg-0.1037 mg/5 mL (5 mL) elixir () prochlorperazine 25 mg rectal 25 mg IN Q12H PRN nausea and 03/16/23 suppository (Compro) vomiting #12 ea cyclobenzaprine 5 mg tablet 5 mg PO Q8H PRN pain (scale score 03/20/23 7-10) 5 days #14 tabs aluminum-mag hydroxide-simethicone 5 ml PO 5XD PRN indigestion #355 mL 04/16/23 200 mg-200 mg-20 mg/5 mL oral susp (Maalox Advanced) iron-folic acid-multivitamin, 1 cap PO DAILY #30 caps 04/16/23 mineral comb#15 106 mg iron-1 mg capsule pantoprazole 40 mg tablet,delayed 40 mg PO BID 90 days #180 tabs 04/16/23 release sucralfate 100 mg/mL oral 5 ml PO QID #1,000 mL 04/16/23 suspension (Carafate) tramadol 50 mg tablet 50 mg PO TID PRN pain 30 days #90 04/25/23 tabs acetaminophen 160 mg/5 mL oral 320 mg (10 mL) PO Q6H PRN fever or 05/23/23 liquid pain #473 mL oseltamivir 6 mg/mL oral 75 mg (12.5 mL) PO BID 5 days #125 05/23/23 suspension (Tamiflu) mL cephalexin 250 mg capsule 250 mg PO QID #20 caps 05/26/23 Allergies Allergy/AdvReac Type Severity Reaction Status Date / Time hydrocodone [HYDROCODONE] Allergy Severe RASH, Verified 05/15/23 13:20 AIRWAY CLOSES ibuprofen [From MOTRIN] Allergy Intermediate STOMACH Verified 05/15/23 13:20 UPSET, vomiting trazodone [TRAZODONE] Allergy Intermediate stomach Verified 05/15/23 13:20 upset/anxiety tomato [TOMATO] Allergy Mild HIVES Verified 04/16/23 10:57 DIFFICULTY BREATHING black pepper [BLACK PEPPER] AdvReac Severe DIFFICULTY Verified 04/16/23 10:57 BREATHING, hives lisinopril AdvReac Severe Anaphylaxis Verified 04/16/23 10:57 Review of Systems Review of Systems: Yes all other systems are reviewed and are negative [facility] Past Medical History Medical History Numbness of left hand History of bipolar disorder History of schizophrenia 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 Spondylosis of lumbar spine Diverticulosis Insomnia Vitamin D deficiency GERD (gastroesophageal reflux disease) Carpal tunnel syndrome Hypercholesterolemia Renal calculi Hypertension Alcohol abuse Anxiety and depression Type 2 diabetes mellitus with hyperglycemia Surgical History History of esophagogastroduodenoscopy (EGD) Hx of colonoscopy Hx of bariatric surgery History of tubal ligation H/O: hysterectomy Family History Family History Father Medical history unknown Mother Medical history unknown Paternal Aunt Uterine cancer Diabetes Hypertension Paternal Uncle Liver cancer Heart attack Maternal Aunt Stroke Family/Other Chronic mental illness Sister Uterine cancer Schizophrenia Brother Substance abuse Other Mental health disorder Social History Social History Household Members: None Housing: Apartment Do you presently have visiting nurse or other home services: Yes Alcohol intake: never Patient Tobacco Use Status: Never used Tobacco Smoked in Last 30 Days: No e-Cigarette/Vaping Use: Never Used Second Hand Smoke Exposure: No Use of substances other than those prescribed or required for medical reasons: No Substance Use Type: Marijuana Advance Directives: No Advance Directives Information Provided: No Patient : No service: No Current occupational status: disabled Current occupational exposures/hazards: No Cognitive needs: No Hearing needs: No Vision needs: Yes Physical Exam Vital Signs: Vital Signs: Last Vital Signs Temp 99.0 F 05/26/23 15:23 Pulse 68 05/26/23 15:23 Resp 19 05/26/23 15:23 BP 119/70 05/26/23 15:23 Pulse Ox 100 05/26/23 13:42 O2 Del Method Room Air 05/26/23 15:23 BMI result Body Mass Index 21.4 Appearance: Alert. Oriented X3. No acute distress. Eyes: PERRLA, ENT: Pharynx normal. Oral Mucosa moist Neck: Normal inspection. Neck supple. CVS: Normal heart rate and rhythm. Pulses normal. Respiratory: No respiratory distress. Equal air entry bilateral, no wheezing/rales/rhonchi reproducible right chest wall tenderness Abdomen: Soft and nontender. Bowel sounds are present, no mass palpable, no CVA tenderness Skin: Skin warm and dry. Normal skin color. Normal skin turgor. Extremities: No lower extremity edema. No calf tenderness Neuro: Oriented X 3. No motor deficit. Course Course Course Narrative: This is an RME: Additional HPI, ROS, PE not included below will be deferred to primary provider. Patient is a 42-year-old female who presents emergency department for evaluation of right anterior chest pain with onset yesterday morning at approximately 03:00 described as a stabbing pain that is constant with associated shortness of breath. Pain is radiating into the right arm. Also experiencing headache associated with this. Also complaining of hematuria, states that this is not menstrual bleeding Plan: labs, EKG, viral testing, CXR Medications Administered Discontinued Medications Generic Name Dose Route Start Last Admin Trade Name Freq PRN Reason Stop Dose Admin Cephalexin HCl 250 mg 05/26/23 16:32 05/26/23 17:04 Cephalexin 250 Mg Capsule PO 05/26/23 16:33 250 mg ONCE ONE Administration Tramadol HCl 50 mg 05/26/23 16:36 05/26/23 17:04 Tramadol Hcl 50 Mg Tablet PO 05/26/23 16:37 50 mg ONCE ONE Administration Medical Decision Making Differential Diagnosis Differential Diagnoses: The differential diagnosis associated with the presentation includes Musculoskeletal chest pain/ACS/pneumonia/pneumothorax/pleurisy Lab Data MDM Lab Attestation statement: I reviewed the patient's lab results. 05/26/23 14:40 05/26/23 14:40 Labs: Lab Results 05/26/23 Range/Units 14:40 WBC 2.4 L (4.8-10.8) X10*3/uL RBC 4.39 (4.20-5.50) X10*6/uL Hgb 11.0 L (12.0-16.0) g/dl Hct 34.8 L (37.0-47.0) % MCV 79.3 L (80.0-98.0) fL MCH 25.1 L (27.0-33.0) pg MCHC 31.6 (31.0-35.0) g/dl RDW 18.9 H (11.0-16.0) % Plt Count 330 (160-400) X10*3/uL MPV 9.4 (9.4-12.3) fL Immature Gran % (Auto) 0.4 (0.0-0.4) % Neut % (Auto) 35.3 L (45-73) % Lymph % (Auto) 47.9 H (20-40) % [place] % (Auto) 14.8 H (2-11) % Eos % (Auto) 0.8 (0-4) % Baso % (Auto) 0.8 (0-2) % Lymph # (Auto) 1.1 L (1.2-4.9) X10*3/uL [place] # (Auto) 0.4 (0.1-1.2) X10*3/uL Eos # (Auto) 0.0 (0.0-0.4) X10*3/uL Baso # (Auto) 0.0 (0.0-0.2) X10*3/uL Abs Immat Gran (auto) 0.01 (0.00-0.03) X10*3/uL Absolute Neuts (auto) 0.8 L (2.0-8.3) x10*3/uL Absolute Nucleated RBC 0.000 (0.0-0.012) X10*3/uL Nucleated RBC % (auto) 0.0 (0.0-0.2) /100WBC Smear Tech's Comments VERIFIED PT 10.7 L (11.1-13.3) SEC INR 0.9 (0.9-1.1) Sodium 140 (135-145) mmol/L Potassium 4.3 (3.3-5.1) mmol/L Chloride 104 (96-108) mmol/L Carbon Dioxide 26 (22-29) mmol/L Anion Gap 14 (12-20) BUN 13 (9-16) mg/dL Creatinine 0.61 (0.5-1.4) mg/dL Estim Creat Clear Calc 90.6 Estimated GFR > 60 Random Glucose 84 (60-115) mg/dL Calcium 9.2 (8.4-10.2) mg/dL Total Bilirubin 0.1 (0.0-1.0) mg/dL AST 19 (5-31) U/L ALT 9 (0-31) U/L Alkaline Phosphatase 65 (39-117) U/L Troponin I High Sens < 2.7 (<3.5-17.0) ng/L Total Protein 7.1 (6.5-8.0) g/dL Albumin 4.2 (3.5-5.0) g/dL Lipase 19 (8-78) U/L Urine Color Yellow Urine Appearance Cloudy Urine pH 7.0 (5.0-9.0) Ur Specific [place] 1.020 (1.005-1.025) Urine Protein 30 (1+) H (Neg-Trace) mg/dL Urine Glucose (UA) Negative (Negative) mg/dL Urine Ketones Negative (Negative) mg/dL Urine Blood Negative (Negative) Urine Nitrite Negative (Negative) Ur Leukocyte Esterase Small (1+) H (Negative) Urine RBC 0-2 (0-2) /HPF Urine WBC >50 H (0-5) /HPF Ur Squamous Epith Cells 6-10 (0-2) /HPF Urine Bacteria 4+ (None Seen) Hyaline Casts 3-5 (0-2) /LPF Urine Test NEGATIVE (NEGATIVE) COVID-19 (ANGELA) Negative (Negative) COVID-19 Clin Com See Note Influenza Type A (BRIDGER) Negative (Negative) Influenza Type B (BRIDGER) Negative (Negative) Influenza A & B Note See Note Independent Interpretation I performed an independent interpretation of an: EKG Interpretation: Normal sinus rhythm heart rate 67 beats per minute normal intervals normal axis no acute ST-T changes no acute ischemia Radiology Impression Discussion of test interpretation with radiology: I have reviewed the radiologist's reading. Discharge Plan Discharge Clinical Impression: UTI (urinary tract infection), Musculoskeletal chest pain Patient Disposition: Home, Self-Care Instructions: Urinary Tract Infection in Women (ED), Chest Wall Pain (ED) Additional Instructions: Drink plenty of fluids Tylenol/tramadol for pain Take antibiotic for UTI as prescribed Prescriptions: New cephalexin 250 mg capsule 250 mg PO QID Qty: 20 0RF No Action (DME) blood pressure monitor [Blood Pressure Kit] Kit See Rx Instructions .Route Qty: 1 0RF Rx Instructions: As directed (DME) CANE See Rx Instructions .Route .MEDSUPPLY Qty: 1 0RF Rx Instructions: As directed (DME) WRIST BRACE See Rx Instructions .Route .MEDSUPPLY Qty: 1 0RF Rx Instructions: As directed (DME) BATH CHAIR See Rx Instructions .Route .MEDSUPPLY Qty: 1 0RF Rx Instructions: As directed (DME) LIFELINE ALERT SYSTEM See Rx Instructions .Route .MEDSUPPLY Qty: 1 0RF Rx Instructions: As directed (DME) ALCOHOL PADS See Rx Instructions .Route .MEDSUPPLY Qty: 100 3RF Rx Instructions: As directed (DME) ROLLATOR See Rx Instructions .Route .MEDSUPPLY Qty: 1 0RF Rx Instructions: As directed (DME) SHOWER WAND See Rx Instructions .Route .MEDSUPPLY Qty: 1 0RF Rx Instructions: As directed (DME) SHOWER BAR See Rx Instructions .Route .MEDSUPPLY Qty: 1 0RF Rx Instructions: As directed (DME) Bedside commode See Rx Instructions .Route .MEDSUPPLY Qty: 1 0RF Rx Instructions: As directed (DME) Bed pads See Rx Instructions .Route .MEDSUPPLY Qty: 100 12RF Rx Instructions: As directed (DME) SANITARY PADS See Rx Instructions .Route .MEDSUPPLY Qty: 100 12RF Rx Instructions: As directed simethicone 40 mg/0.6 mL drops,suspension 0.6 ml PO BID-TID PRN (Reason: abdominal distention) Qty: 15 0RF Ensure Complete 0.1 gram-1.18 kcal/mL liquid 1 ea PO TID Qty: 1184 12RF polyethylene glycol 3350 [Miralax] 17 gram powder in packet 17 g PO DAILY Qty: 14 3RF Rx Instructions: Use daily until you have a normal bowel movement, then stop. tramadol 50 mg tablet 50 mg PO TID PRN (Reason: pain) 30 Days Qty: 90 0RF acetaminophen 500 mg/15 mL liquid 1,000 mg PO Q6H PRN (Reason: pain) Qty: 1000 0RF ondansetron 4 mg tablet,disintegrating 4 mg PO Q8H Qty: 20 0RF famotidine 40 mg/5 mL (8 mg/mL) suspension 20 mg PO BID Qty: 50 3RF sumatriptan 5 mg/actuation spray,non-aerosol 5 mg intranasal Q2-4H PRN (Reason: migraine headache) Qty: 6 1RF Rx Instructions: into each nostril once; if headache remains, may repeat total dose once after at least 2 hours cyclobenzaprine 5 mg tablet 5 mg PO Q8H PRN (Reason: pain (scale score 7-10)) 5 Days Qty: 14 0RF prochlorperazine [Compro] 25 mg suppository 25 mg IN Q12H PRN (Reason: nausea and vomiting) Qty: 12 0RF Miracle Mouthwash-Alan 240 mL liquid 15 ml PO BID Qty: 240 0RF Rx Instructions: Nystatin susp 80 mL;Lidocaine 2% Visc 80 mL; Maalox 80 mL; Swish and spit oegfilwub-auifgs-scynjijp-scop [] 16.2 mg-0.1037 mg/5 mL (5 mL) elixir 5 ml PO BID PRN (Reason: indigestion) Qty: 50 0RF oseltamivir [Tamiflu] 6 mg/mL suspension for reconstitution 75 mg PO BID 5 Days Qty: 125 0RF acetaminophen 160 mg/5 mL liquid 320 mg PO Q6H PRN (Reason: fever or pain) Qty: 473 0RF iron-folic acid-mv, min cmb#15 106 mg iron- 1 mg capsule 1 cap PO DAILY Qty: 30 4RF sucralfate [Carafate] 100 mg/mL suspension 5 ml PO QID Qty: 1000 0RF Rx Instructions: swish in mouth and swallow; use after food/drink alum-mag hydroxide-simeth [Maalox Advanced] 200-200-20 mg/5 mL suspension 5 ml PO 5XD PRN (Reason: indigestion) Qty: 355 4RF Rx Instructions: administer between meals and at bedtime pantoprazole 40 mg tablet,delayed release (DR/EC) 40 mg PO BID 90 Days Qty: 180 1RF fluticasone propionate [Flonase Allergy Relief] 50 mcg/actuation spray,suspension 1 spray intranasal DAILY Qty: 100 0RF Rx Instructions: administer into each nostril (DME) blood-glucose meter [OneTouch Verio Meter] Misc See Rx Instructions .Route Rx Instructions: As directed (DME) OneTouch Verio test strips Strip See Rx Instructions .Route Rx Instructions: As directed 3 times a day (DME) lancets [OneTouch Delica Lancets] 33 gauge misc See Rx Instructions .Route Rx Instructions: As directed 3 times a day zolpidem 10 mg tablet 10 mg PO BEDTIME PRN (Reason: Insomnia) triamcinolone acetonide 0.1 % cream 1 appl topical DAILY Interventions: ED Discharge Assessment Last Done: 05/26/23 17:13 Discharge Date/Time: 05/26/23 17:14
[2023-05-26 14:56] LABS: Basophils Percent Auto 0.8 % (0-2); Eosinophils Percent Auto 0.8 % (0-4); Hematocrit 34.8 % (37.0-47.0); Imm Gran Abs Auto 0.01 X10*3/uL (0.00-0.03); Imm Gran Pct Auto 0.4 % (0.0-0.4); Lymphocytes Absolute Auto 1.1 X10*3/uL (1.2-4.9); Lymphocytes Percent Auto 47.9 % (20-40); MANUAL DIFF FLAG SCAN; Mean Corpuscular HGB Conc 31.6 g/dl (31.0-35.0); Mean Corpuscular Hemoglobin 25.1 pg (27.0-33.0); Mean Corpuscular Volume 79.3 fL (80.0-98.0); Mean Platelet Volume 9.4 fL (9.4-12.3); Monocytes Absolute Auto 0.4 X10*3/uL (0.1-1.2); Monocytes Percent Auto 14.8 % (2-11); Neutrophils Absolute Auto 0.8 x10*3/uL (2.0-8.3); Neutrophils Percent Auto 35.3 % (45-73); Platelet Count 330 X10*3/uL (160-400); Red Blood Count 4.39 X10*6/uL (4.20-5.50); Red Cell Distribution Width 18.9 % (11.0-16.0); SCAN SMEAR FLAG 1
[2023-05-26 14:57] LABS: Appearance Urine Cloudy; Color Urine Yellow; Glucose Urine UA Negative (Negative); Leukocyte Esterase Urine Small (1+) (Negative); Nitrite Urine Negative (Negative); UMIC TRIGGER UACC YES; Urine Blood Negative (Negative); Urine Ketones Negative (Negative); Urine Protein 30 (1+) mg/dL (Neg-Trace)
[2023-05-26 14:58] LABS: White Blood Count 2.4 X10*3/uL (4.8-10.8)
[2023-05-26 15:00] LABS: Bacteria Urine 4+ (None Seen); RBC Urine 0-2 /HPF (0-2); UACC Culture Trigger YES; UPreg QC Valid YES; Urine Pregnancy NEGATIVE (NEGATIVE); WBC Urine >50 /HPF (0-5)
[2023-05-26 15:03] LABS: INTERNATIONAL NORM RATIO 0.9 (0.9-1.1); Prothrombin Time 10.7 SEC (11.1-13.3)
[2023-05-26 15:13] LABS: Alanine Aminotransferase 9 U/L (0-31); Albumin Level 4.2 g/dL (3.5-5.0); Alkaline Phosphatase 65 U/L (39-117); Anion Gap 14 (12-20); Aspartate Amino Transferase 19 U/L (5-31); Bilirubin Total 0.1 mg/dL (0.0-1.0); Blood Urea Nitrogen 13 mg/dL (9-16); Calcium 9.2 mg/dL (8.4-10.2); Carbon Dioxide 26 mmol/L (22-29); Chloride 104 mmol/L (96-108); Creatinine Clr Calc Pharmacy 90.6; Estimated Glomerular Filt Rate > 60; Glucose Random 84 mg/dL (60-115); Lipase 19 U/L (8-78); Potassium 4.3 mmol/L (3.3-5.1); Sodium 140 mmol/L (135-145); Total Protein 7.1 g/dL (6.5-8.0)
[2023-05-26 15:14] LABS: COVID-19 Test Negative (Negative); IDNOW Serial# 08D9AD1C; IDNOW Serial# 6674DD1D; Influenza A Negative (Negative); Influenza B2 Negative (Negative)
[2023-05-26 15:21] LABS: Troponin-I High Sensitivity < 2.7 ng/L (<3.5-17.0)
[2023-05-26 15:23] VITALS: BP 119/70; PULSE 68; RESP 19; TEMP 37.2
[2023-05-26 15:31] LABS: SLIDE REVIEW VERIFIED
[2023-05-26] MEDS: traMADoL HCL 50 MG TABLET PO (17:04)
[2023-05-26] MEDS: cephALEXin 250 MG CAPSULE PO (17:04)
== END 2023-05-26 17:14 | disposition home or self-care (01) ==
PROVIDERS: Nurse Practitioner Family; Emergency Provider Internal Medicine; PCP Internal Medicine
DX: N39.0 Urinary tract infection, site not specified (principal); R07.89 Other chest pain; Z11.52 Encounter for screening for COVID-19; E11.9 Type 2 diabetes mellitus without complications; I10 Essential (primary) hypertension; F12.90 Cannabis use, unspecified, uncomplicated; Z79.899 Other long term (current) drug therapy
CPT/HCPCS: 71045; 80053; 81001; 81025; 83690; 84484; 85025; 85610; 87086; 87088; 87186; 87502; 87635; 93005; 99283; 99284

== ENCOUNTER 2023-06-10 16:21 | Emergency (ER) | payer OTHER, SELFPAY | END 2023-06-10 19:46 | disposition left against medical advice (07) | LOC: HO.ED 19:40 | PROVIDERS: Emergency Provider Emergency Medicine; PCP Internal Medicine | DX: M54.50 Low back pain, unspecified (principal) ==

== ENCOUNTER 2023-06-12 14:22 | Emergency (ER) | payer OTHER, SELFPAY ==
[2023-06-12 14:25] VITALS: BP 124/85; PULSE 110; RESP 19; TEMP 36.6; O2SAT 97; BMI 20.2
--- NOTE | 2023-06-12 14:26 | ED_ITS ---
HPI - General Adult General Chief complaint: Abdominal Pain Stated complaint: Sciatic Pain Related Data Home Medications ?Medication ?Instructions ?Recorded ?Confirmed blood sugar diagnostic ([facility] 08/15/22 08/08/23 Verio test strips) blood-glucose meter ([facility] 08/15/22 08/08/23 Verio Meter) lancets 33 gauge ([facility] Delica 08/15/22 08/08/23 Lancets) triamcinolone acetonide 0.1 % 1 appl topical DAILY 02/07/23 08/08/23 topical cream zolpidem 10 mg tablet 10 mg PO BEDTIME PRN Insomnia 02/07/23 08/08/23 simethicone 80 mg chewable tablet 160 mg PO BID 08/07/23 08/08/23 (Gas Relief (simethicone)) ursodiol 300 mg capsule 300 mg PO BID 08/07/23 08/08/23 clonazepam 1 mg tablet 1 mg PO TID 08/08/23 08/08/23 Previous Rx's ?Medication ?Instructions ?Recorded BATH CHAIR #1 ea 01/31/22 CANE #1 ea 01/31/22 LIFELINE ALERT SYSTEM #1 ea 01/31/22 WRIST BRACE #1 ea 01/31/22 ALCOHOL PADS #100 ea 02/21/22 SHOWER BAR #1 ea 06/08/22 SHOWER WAND #1 ea 06/08/22 Bed pads #100 ea 07/17/22 Bedside commode #1 ea 07/17/22 SANITARY PADS #100 ea 07/17/22 food supplemt, lactose-reduced 0.1 1 ea PO TID #1,184 mL 01/29/23 gram-1.18 kcal/mL oral liquid (Ensure Complete) polyethylene glycol 3350 17 gram 17 g PO DAILY #14 ea 01/31/23 oral powder packet (Miralax) ondansetron 4 mg disintegrating 4 mg PO Q8H nausea and vomiting 03/03/23 tablet #20 tabs sumatriptan 5 mg/actuation nasal 5 mg intranasal Q2-4H PRN migraine 03/03/23 spray headache #6 ea Miracle Mouthwash-Alan 240 mL 15 ml PO BID #240 mL 03/16/23 liquid fflttorkr-zoekxrhir-jbkcqlpq-scop 5 ml PO BID PRN indigestion #50 mL 03/16/23 16.2 mg-0.1037 mg/5 mL (5 mL) elixir () prochlorperazine 25 mg rectal 25 mg UT Q12H PRN nausea and 03/16/23 suppository (Compro) vomiting #12 ea cyclobenzaprine 5 mg tablet 5 mg PO Q8H PRN pain (scale score 03/20/23 7-10) 5 days #14 tabs multivit-minerals no.73-iron 1 cap PO DAILY #30 caps 04/16/23 fumarate 106 mg-folic acid 1 mg capsule acetaminophen 160 mg/5 mL oral 320 mg (10 mL) PO Q6H PRN fever or 05/23/23 liquid pain #473 mL ROLLATOR #1 ea 06/28/23 famotidine 20 mg tablet (Pepcid) 20 mg PO BID 10 days #20 tabs 07/18/23 simethicone 40 mg/0.6 mL oral 0.6 ml PO BID-TID PRN abdominal 08/02/23 drops,suspension distention #15 mL blood pressure monitor (Blood #1 ea 08/06/23 Pressure Kit) fluticasone propionate 50 1 spray intranasal DAILY #100 mL 08/08/23 mcg/actuation nasal spray,suspension (Flonase Allergy Relief) linaclotide 290 mcg capsule 290 mcg PO DAILY #30 caps 08/08/23 (Linzess) sodium,potassium,mag sulfates 17.5 See Rx Instructions PO .COMPLEX 10/03/23 gram-3.13 gram-1.6 gram oral soln #354 mL (Suprep Bowel Prep Kit) pantoprazole 40 mg tablet,delayed 40 mg PO BID 90 days #180 tabs 10/07/23 release aluminum-mag hydroxide-simethicone 5 ml PO 5XD PRN indigestion #355 mL 10/10/23 200 mg-200 mg-20 mg/5 mL oral susp (Maalox Advanced) polyethylene glycol 3350 17 17 g PO BID #850 grams 11/11/23 gram/dose oral powder (Miralax) bisacodyl 10 mg rectal suppository 10 mg UT DAILY PRN constipation 11/14/23 (Dulcolax (bisacodyl)) #30 ea lactulose 20 gram/30 mL oral 30 g (45 mL) PO BID #3,000 mL 11/14/23 solution sodium phosphates 19 gram-7 197 ml UT DAILY 1 day #133 mL 11/19/23 gram/118 mL enema (Fleet Enema) sucralfate 100 mg/mL oral 10 ml PO QID #840 mL 12/03/23 suspension (Carafate) tramadol 50 mg tablet 50 mg PO TID PRN pain 30 days #90 12/12/23 tabs Allergies Allergy/AdvReac Type Severity Reaction Status Date / Time hydrocodone [HYDROCODONE] Allergy Severe RASH, Verified 11/21/23 11:00 AIRWAY CLOSES ibuprofen [From MOTRIN] Allergy Intermediate STOMACH Verified 11/21/23 11:00 UPSET, vomiting trazodone [TRAZODONE] Allergy Intermediate stomach Verified 11/21/23 11:00 upset/anxiety tomato [TOMATO] Allergy Mild HIVES Verified 11/21/23 11:00 DIFFICULTY BREATHING egg Allergy Swelling Verified 11/21/23 11:00 black pepper [BLACK PEPPER] AdvReac Severe DIFFICULTY Verified 11/21/23 11:00 BREATHING, hives lisinopril AdvReac Severe Anaphylaxis Verified 11/21/23 11:00 PMFSH Past Medical History Medical History Type 2 diabetes mellitus with hyperglycemia Vision changes Gastritis Tongue sore Right ear pain Numbness of left hand History of bipolar disorder History of schizophrenia 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 Spondylosis of lumbar spine Diverticulosis Insomnia Vitamin D deficiency GERD (gastroesophageal reflux disease) Carpal tunnel syndrome Hypercholesterolemia Renal calculi Hypertension Alcohol abuse Anxiety and depression Surgical History History of esophagogastroduodenoscopy (EGD) Hx of colonoscopy Hx of bariatric surgery History of tubal ligation H/O: hysterectomy Family History Family History Father Medical history unknown Mother Medical history unknown Paternal Aunt Uterine cancer Diabetes Hypertension Paternal Uncle Liver cancer Heart attack Lung cancer Maternal Aunt Stroke Family/Other Chronic mental illness Sister Uterine cancer Schizophrenia Brother Substance abuse Paternal Grandmother Lung cancer Other Mental health disorder Social History Social History Household Members: None Housing: Apartment Do you presently have visiting nurse or other home services: Yes Alcohol intake: current Alcohol intake frequency: a few times a month Alcohol type: beer Patient Tobacco Use Status: Former Tobacco user Tobacco use type: Cigarette e-Cigarette/Vaping Use: Never Used Second Hand Smoke Exposure: No Substance Use Type: Marijuana service: No Current occupational status: disabled Current occupational exposures/hazards: No Cognitive needs: No Hearing needs: No Vision needs: Yes Physical Exam ED Vital Signs: BMI result Body Mass Index 20.2 Course Course Course Narrative: This is an RME: Additional HPI, ROS, PE not included below will be deferred to primary provider. 42 year old female presents w/ high fevers, epigastric pain, diarrhea, nausea vomiting and lower back pain Plan- labs Medical Decision Making Lab Data 06/12/23 14:37 06/12/23 14:37 Labs: Lab Results 06/12/23 Range/Units 14:37 WBC 5.2 (4.8-10.8) X10*3/uL RBC 4.92 (4.20-5.50) X10*6/uL Hgb 13.0 (12.0-16.0) g/dl Hct 39.8 (37.0-47.0) % MCV 80.9 (80.0-98.0) fL MCH 26.4 L (27.0-33.0) pg MCHC 32.7 (31.0-35.0) g/dl RDW 21.3 H (11.0-16.0) % Plt Count 379 (160-400) X10*3/uL MPV 9.9 (9.4-12.3) fL Immature Gran % (Auto) 0.4 (0.0-0.4) % Neut % (Auto) 69.9 (45-73) % Lymph % (Auto) 19.7 L (20-40) % [place] % (Auto) 8.6 (2-11) % Eos % (Auto) 0.8 (0-4) % Baso % (Auto) 0.6 (0-2) % Lymph # (Auto) 1.0 L (1.2-4.9) X10*3/uL [place] # (Auto) 0.5 (0.1-1.2) X10*3/uL Eos # (Auto) 0.0 (0.0-0.4) X10*3/uL Baso # (Auto) 0.0 (0.0-0.2) X10*3/uL Abs Immat Gran (auto) 0.02 (0.00-0.03) X10*3/uL Absolute Neuts (auto) 3.7 (2.0-8.3) x10*3/uL Absolute Nucleated RBC 0.000 (0.0-0.012) X10*3/uL Nucleated RBC % (auto) 0.0 (0.0-0.2) /100WBC Sodium 137 (135-145) mmol/L Potassium 3.6 (3.3-5.1) mmol/L Chloride 106 (96-108) mmol/L Carbon Dioxide 22 (22-29) mmol/L Anion Gap 13 (12-20) BUN 13 (9-16) mg/dL Creatinine 0.67 (0.5-1.4) mg/dL Estim Creat Clear Calc 82.5 Estimated GFR > 60 Random Glucose 61 (60-115) mg/dL Calcium 9.5 (8.4-10.2) mg/dL Magnesium 2.1 (1.6-2.6) mg/dL Total Bilirubin 0.3 (0.0-1.0) mg/dL AST 13 (5-31) U/L ALT 5 (0-31) U/L Alkaline Phosphatase 72 (39-117) U/L Total Protein 7.7 (6.5-8.0) g/dL Albumin 4.6 (3.5-5.0) g/dL Urine Color Yellow Urine Appearance Clear Urine pH 6.5 (5.0-9.0) Ur Specific [place] <= 1.005 (1.005-1.025) Urine Protein Negative (Neg-Trace) mg/dL Urine Glucose (UA) Negative (Negative) mg/dL Urine Ketones Negative (Negative) mg/dL Urine Blood Negative (Negative) Urine Nitrite Negative (Negative) Ur Leukocyte Esterase Negative (Negative) Discharge Plan Discharge Clinical Impression: Eloped from emergency department Patient Disposition: Left W/O Completing Treatment Prescriptions: No Action (DME) CANE See Rx Instructions .Route .MEDSUPPLY Qty: 1 0RF Rx Instructions: As directed (DME) WRIST BRACE See Rx Instructions .Route .MEDSUPPLY Qty: 1 0RF Rx Instructions: As directed ([facility] [place]) BATH CHAIR See Rx Instructions .Route .MEDSUPPLY Qty: 1 0RF Rx Instructions: As directed ([facility] [place]) LIFELINE ALERT SYSTEM See Rx Instructions .Route .MEDSUPPLY Qty: 1 0RF Rx Instructions: As directed ([facility] [place]) ALCOHOL PADS See Rx Instructions .Route .MEDSUPPLY Qty: 100 3RF Rx Instructions: As directed ([facility] [place]) SHOWER WAND See Rx Instructions .Route .MEDSUPPLY Qty: 1 0RF Rx Instructions: As directed ([facility] [place]) SHOWER BAR See Rx Instructions .Route .MEDSUPPLY Qty: 1 0RF Rx Instructions: As directed ([facility] [place]) Bedside commode See Rx Instructions .Route .MEDSUPPLY Qty: 1 0RF Rx Instructions: As directed ([facility] [place]) Bed pads See Rx Instructions .Route .MEDSUPPLY Qty: 100 12RF Rx Instructions: As directed ([facility] [place]) SANITARY PADS See Rx Instructions .Route .MEDSUPPLY Qty: 100 12RF Rx Instructions: As directed Ensure Complete 0.1 gram-1.18 kcal/mL liquid 1 ea PO TID Qty: 1184 12RF polyethylene glycol 3350 [Miralax] 17 gram powder in packet 17 g PO DAILY Qty: 14 3RF Rx Instructions: Use daily until you have a normal bowel movement, then stop. ([facility] [place]) ROLLATOR See Rx Instructions .Route .MEDSUPPLY Qty: 1 0RF Rx Instructions: As directed simethicone 40 mg/0.6 mL drops,suspension 0.6 ml PO BID-TID PRN (Reason: abdominal distention) Qty: 15 0RF ([facility] [place]) blood pressure monitor [Blood Pressure Kit] Kit See Rx Instructions .Route Qty: 1 0RF Rx Instructions: As directed pantoprazole 40 mg tablet,delayed release (DR/EC) 40 mg PO BID 90 Days Qty: 180 1RF alum-mag hydroxide-simeth [Maalox Advanced] 200-200-20 mg/5 mL suspension 5 ml PO 5XD PRN (Reason: indigestion) Qty: 355 4RF Rx Instructions: administer between meals and at bedtime sucralfate [Carafate] 100 mg/mL suspension 10 ml PO QID Qty: 840 1RF tramadol 50 mg tablet 50 mg PO TID PRN (Reason: pain) 30 Days Qty: 90 0RF ondansetron 4 mg tablet,disintegrating 4 mg PO Q8H Qty: 20 0RF sumatriptan 5 mg/actuation spray,non-aerosol 5 mg intranasal Q2-4H PRN (Reason: migraine headache) Qty: 6 1RF Rx Instructions: into each nostril once; if headache remains, may repeat total dose once after at least 2 hours cyclobenzaprine 5 mg tablet 5 mg PO Q8H PRN (Reason: pain (scale score 7-10)) 5 Days Qty: 14 0RF famotidine [Pepcid] 20 mg tablet 20 mg PO BID 10 Days Qty: 20 0RF polyethylene glycol 3350 [Miralax] 17 gram/dose powder 17 g PO BID Qty: 850 0RF prochlorperazine [Compro] 25 mg suppository 25 mg UT Q12H PRN (Reason: nausea and vomiting) Qty: 12 0RF Miracle Mouthwash-Alan 240 mL liquid 15 ml PO BID Qty: 240 0RF Rx Instructions: Nystatin susp 80 mL;Lidocaine 2% Visc 80 mL; Maalox 80 mL; Swish and spit zjebcsnsq-eddztr-nebndyhd-scop [] 16.2 mg-0.1037 mg/5 mL (5 mL) elixir 5 ml PO BID PRN (Reason: indigestion) Qty: 50 0RF acetaminophen 160 mg/5 mL liquid 320 mg PO Q6H PRN (Reason: fever or pain) Qty: 473 0RF Fleet Enema 19-7 gram/118 mL enema 197 ml UT DAILY 1 Days Qty: 133 2RF mv-mins no.73-iron fum-folic 106 mg iron- 1 mg capsule 1 cap PO DAILY Qty: 30 4RF clonazepam 1 mg tablet 1 mg PO TID fluticasone propionate [Flonase Allergy Relief] 50 mcg/actuation spray,suspension 1 spray intranasal DAILY Qty: 100 0RF Rx Instructions: administer into each nostril Linzess 290 mcg capsule 290 mcg PO DAILY Qty: 30 1RF bisacodyl [Dulcolax (bisacodyl)] 10 mg suppository 10 mg UT DAILY PRN (Reason: constipation) Qty: 30 0RF lactulose 20 gram/30 mL solution 30 g PO BID Qty: 3000 0RF (DME) blood-glucose meter [OneTouch Verio Meter] Mis See Rx Instructions .Route Rx Instructions: As directed (DME) OneTouch Verio test strips Strip See Rx Instructions .Route Rx Instructions: As directed 3 times a day (DME) lancets [OneTouch Delica Lancets] 33 gauge misc See Rx Instructions .Route Rx Instructions: As directed 3 times a day zolpidem 10 mg tablet 10 mg PO BEDTIME PRN (Reason: Insomnia) triamcinolone acetonide 0.1 % cream 1 appl topical DAILY ursodiol 300 mg capsule 300 mg PO BID simethicone [Gas Relief (simethicone)] 80 mg tablet,chewable 160 mg PO BID sodium,potassium,mag sulfates [Suprep Bowel Prep Kit] 17.5-3.13-1.6 gram recon soln See Rx Instructions PO .COMPLEX Qty: 354 0RF Rx Instructions: As per instructions from GI office Discharge Date/Time: 06/12/23 16:32
[2023-06-12 14:43] LABS: MANUAL DIFF FLAG NO
[2023-06-12 14:50] LABS: Appearance Urine Clear; Color Urine Yellow; Glucose Urine UA Negative (Negative); Leukocyte Esterase Urine Negative (Negative); Nitrite Urine Negative (Negative); PH 6.5 (5.0-9.0); Specific Gravity - Urine <= 1.005 (1.005-1.025); Urine Blood Negative (Negative); Urine Ketones Negative (Negative); Urine Protein Negative (Neg-Trace)
[2023-06-12 14:55] LABS: Basophils Percent Auto 0.6 % (0-2); Eosinophils Percent Auto 0.8 % (0-4); Hematocrit 39.8 % (37.0-47.0); Imm Gran Abs Auto 0.02 X10*3/uL (0.00-0.03); Imm Gran Pct Auto 0.4 % (0.0-0.4); Lymphocytes Percent Auto 19.7 % (20-40); Mean Corpuscular HGB Conc 32.7 g/dl (31.0-35.0); Mean Corpuscular Hemoglobin 26.4 pg (27.0-33.0); Mean Corpuscular Volume 80.9 fL (80.0-98.0); Mean Platelet Volume 9.9 fL (9.4-12.3); Monocytes Absolute Auto 0.5 X10*3/uL (0.1-1.2); Monocytes Percent Auto 8.6 % (2-11); Neutrophils Absolute Auto 3.7 x10*3/uL (2.0-8.3); Neutrophils Percent Auto 69.9 % (45-73); Platelet Count 379 X10*3/uL (160-400); Red Blood Count 4.92 X10*6/uL (4.20-5.50); Red Cell Distribution Width 21.3 % (11.0-16.0); White Blood Count 5.2 X10*3/uL (4.8-10.8)
[2023-06-12 14:58] LABS: Alanine Aminotransferase 5 U/L (0-31); Albumin Level 4.6 g/dL (3.5-5.0); Alkaline Phosphatase 72 U/L (39-117); Anion Gap 13 (12-20); Aspartate Amino Transferase 13 U/L (5-31); Bilirubin Total 0.3 mg/dL (0.0-1.0); Blood Urea Nitrogen 13 mg/dL (9-16); Calcium 9.5 mg/dL (8.4-10.2); Carbon Dioxide 22 mmol/L (22-29); Chloride 106 mmol/L (96-108); Creatinine Clr Calc Pharmacy 82.5; Estimated Glomerular Filt Rate > 60; Glucose Random 61 mg/dL (60-115); Magnesium 2.1 mg/dL (1.6-2.6); Potassium 3.6 mmol/L (3.3-5.1); Sodium 137 mmol/L (135-145); Total Protein 7.7 g/dL (6.5-8.0)
== END 2023-06-12 16:32 | disposition left against medical advice (07) ==
LOC: HO.ED 16:28
PROVIDERS: Physician Assistant; Emergency Provider Emergency Medicine; PCP Internal Medicine
DX: M54.40 Lumbago with sciatica, unspecified side (principal); R11.2 Nausea with vomiting, unspecified; Z79.899 Other long term (current) drug therapy
CPT/HCPCS: 36415; 80053; 81003; 83735; 85025; 99282; 99283

== ENCOUNTER 2023-06-14 13:58 | Emergency (ER) | payer OTHER, SELFPAY | END 2023-06-14 15:04 | disposition left against medical advice (07) | PROVIDERS: Emergency Provider Emergency Medicine; PCP Internal Medicine | DX: Z04.1 Encounter for examination and observation following transport accident (principal) ==

== ENCOUNTER 2023-06-26 12:15 | Outpatient (AMB) | payer OTHER, SELFPAY ==
[2023-06-26 12:35] VITALS: BP 138/82; PULSE 75; BMI 20.6
--- NOTE | 2023-06-26 12:35 | A.OFFPC_ITS ---
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 Required: No Accompanied by: Self / Same As Patient Allergies hydrocodone [HYDROCODONE] Allergy (Severe, Verified 06/26/23 12:35) RASH, AIRWAY CLOSES ibuprofen [From MOTRIN] Allergy (Intermediate, Verified 06/26/23 12:35) STOMACH UPSET, vomiting trazodone [TRAZODONE] Allergy (Intermediate, Verified 06/26/23 12:35) stomach upset/anxiety tomato [TOMATO] Allergy (Mild, Verified 06/26/23 12:35) HIVES DIFFICULTY BREATHING egg Allergy (Verified 06/26/23 12:35) Swelling black pepper [BLACK PEPPER] Adverse Reaction (Severe, Verified 06/26/23 12:35) DIFFICULTY BREATHING, hives lisinopril Adverse Reaction (Severe, Verified 06/26/23 12:35) Anaphylaxis Tobacco use date assessed: 08/23/22 Dental Screening Dental Screen Date: 06/26/23 Did you have a dental visit in the last 12 months?: Yes Did you have a dental problem in the last 6 months where you did not have access to dental care?: No Was dental information given to patient?: Patient has dentist HPI sciatica/fibromyalgia/unable to walk HPI Details 42-year-old female with a history of gas tric sleeve procedure in 2021 GERD anemia chronic lumbar radiculopathy hypertension hypercholesterolemia having post gastrectomy malabsorption coming in for follow-up. Last seen in March 2023. ER visit in June 12 fever epigastric pain diarrhea patient left the hospital ER against medical advice. ER visit in May 28 for.. 05/17/2023 patient had EGD done diagnosis of grade D esophagitis antral gastritis normal duodenum this has improved with continues proton pump inhibitor H2 eldon and Carafate.. Patient also follows up with hematology oncology for iron deficiency anemia she had iron infusion. Patient also brought in a letter of the Kaleb steele from the office of [place] [employer] commissioner for not appearing in December redo the 06/12/2023, PAtient states did not received the note before . Cassy [id number]. Badge number [id number]. Patient also complains of low back pain- has been referred to [facility] [place] but states has not received a call. PAteint has planned surgery under Dr. Driscoll july 27, 2023 planned gastric bypass. PAtient states [facility]In has advised ENT referral but do not see notes [facility] Medical History (Updated 06/26/23 @ 12:55 by Deirdre Cantrell MD) Vision changes Gastritis Tongue sore Right ear pain Numbness of left hand History of bipolar disorder History of schizophrenia 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 Spondylosis of lumbar spine Diverticulosis Insomnia Vitamin D deficiency GERD (gastroesophageal reflux disease) Carpal tunnel syndrome Hypercholesterolemia Renal calculi Hypertension Alcohol abuse Anxiety and depression Type 2 diabetes mellitus with hyperglycemia Surgical History History of esophagogastroduodenoscopy (EGD) Hx of colonoscopy Hx of bariatric surgery History of tubal ligation H/O: hysterectomy Family History Father Medical history unknown Mother Medical history unknown Paternal Aunt Uterine cancer Diabetes Hypertension Paternal Uncle Liver cancer Heart attack Maternal Aunt Stroke Family/Other Chronic mental illness Sister Uterine cancer Schizophrenia Brother Substance abuse Other Mental health disorder Social History Household Members: None Housing: Apartment Do you presently have visiting nurse or other home services: Yes Alcohol intake: never Patient Tobacco Use Status: Former Tobacco user Tobacco use type: Cigarette e-Cigarette/Vaping Use: Never Used Second Hand Smoke Exposure: No Substance Use Type: Marijuana service: No Current occupational status: disabled Current occupational exposures/hazards: No Cognitive needs: No Hearing needs: No Vision needs: Yes Female Reproductive History Menstrual Age of Menarche: 11 Questionnaire PHQ-9 Over the last 2 weeks, how often have you been bothered by any of the following problems? 1. Little interest or pleasure in doing things: several days 2. Feeling down, depressed, or hopeless: several days 3. Trouble falling or staying asleep, or sleeping too much: several days 4. Feeling tired or having little energy: several days 5. Poor appetite or overeating: several days 6. Feeling bad about yourself - or that you are a failure or have let yourself or your family down: not at all 7. Trouble concentrating on things, such as reading the newspaper or watching television: not at all 8. Moving or speaking so slowly that other people could have noticed. Or the opposite - being so fidgety or restless that you have been moving around a lot more than usual: not at all 9. Thoughts that you would be better off or of hurting yourself in some way: not at all Total score: 5 Depression Screening Interpretation: Positive Depression Screening Done: Yes [id number] - PHQ-9 Billing: Yes Source: Developed by Drs. Dinesh Freire, Denys Epps and colleagues, with an educational mihai from [employer]. Thrive Questionnaire Date Thrive assessed: 08/23/22 AUDIT C Alcohol Use Questionnaire (AUDIT-C) 1. How often do you have a drink containing alcohol?: Never Total Score: 0 Score Reviewed/Action Taken: No JUDITH-7 AMB Questionnaire JUDITH-7 Date JUDITH - 7 assessed: 08/23/22 Source: Developed by Drs. Dinesh Freire, Niru Dimas, Denys Dodson and colleagues, with an educational mihai from [employer]. Physical exam (Primary Care) Vital Signs: Last Vital Signs Pulse 75 06/26/23 12:35 BP 138/82 06/26/23 12:35 Oxygen Delivery Method Room Air 06/26/23 12:35 BMI result Body Mass Index 20.6 Tobacco/Smoking Status: Tobacco use Status Tobacco use date assessed 08/23/22 06/26/23 12:37 Patient Tobacco Use Status Former Tobacco user 06/26/23 12:45 Tobacco use type Cigarette 06/26/23 12:45 e-Cigarette/Vaping Use Never Used 06/26/23 12:37 PHQ-9: PHQ-9 Score PHQ-9: Total score 5 06/26/23 12:45 Depression Screening Interpretation: Positive Thrive Assessment: Date of Thrive Assessment Date Thrive assessed 08/23/22 06/26/23 12:37 Const General: alert; No acute distress Eyes Conjunctivae: conjunctivae normal Resp Auscultation: clear to auscultation bilaterally Cardio Rate: regular rate Rhythm: regular rhythm GI Inspection: Yes normal to inspection Extrem General: Yes normal to inspection and No edema Assessment and Plan Assessment & Plan (1) S/P gastric sleeve procedure: Comment: 10/19/21 - Bhavna assisted gastric sleeve gastrectomy by Dr. Driscoll Code(s): Z90.3 - Acquired absence of stomach [part of] Plan: Continue to follow-up with the bariatric surgeon. Patient is scheduled for gastrectomy surgery June 2023 (2) Hypertension: Code(s): I10 - Essential (primary) hypertension Qualifiers: Hypertension type: essential hypertension Qualified Code(s): I10 - Essential (primary) hypertension Plan: Continue with blood pressure medication. Decrease salt intake and exercise with the loss of weight blood pressure has normalized (3) Hypercholesterolemia: Code(s): E78.00 - Pure hypercholesterolemia, unspecified Plan: Avoid fried foods, chicken skin, eggs, butter margarine, pastries and meat. Be it pork or beef they have a lot of cholesterol last blood work in January 2023 has come down to normal (4) GERD (gastroesophageal reflux disease): Code(s): K21.9 - Gastro-esophageal reflux disease without esophagitis Plan: Avoid the foods that causes that usually spicy foods, tomato products, juices, coffee, soda and foods that your sensitive to. After eating do not lie down, allow 3-4 hours before in lie down. And keep the head of bed above 30 degrees to avoid the acid from going up. Carafate pantoprazole and famotidine prescribed patient being followed up by gastroenterology had EGD April 2023 (5) Generalized anxiety disorder: Comment: [facility] counselling Code(s): F41.1 - Generalized anxiety disorder Plan: Continue with counseling and therapy (6) Esophagitis determined by endoscopy: Code(s): K20.90 - Esophagitis, unspecified without bleeding Plan: EGD done on 3 medications PPI, H2 eldon and Carafate (7) Iron deficiency anemia: Code(s): D50.9 - Iron deficiency anemia, unspecified Plan: Patient follows up with hematology oncology (8) Lumbar back pain with radiculopathy affecting right lower extremity: Code(s): M54.16 - Radiculopathy, lumbar region Plan: Advised patient to go for physical therapy Orders: Orders PT Evaluation and Treatment Today M54.16 - Radiculopathy, lumbar region Coding Level of Care Code Est Pt Level 4 (52068) Diagnoses S/P gastric sleeve procedure Z90.3 Essential hypertension I10 Hypertension type: essential hypertension Hypercholesterolemia E78.00 Gastroesophageal reflux disease without esophagitis K21.9 Generalized anxiety disorder F41.1 Esophagitis determined by endoscopy K20.90 Iron deficiency anemia D50.9 Lumbar back pain with radiculopathy affecting right lower extremity M54.16
== END 2023-06-26 13:18 | disposition home or self-care (01) ==
PROVIDERS: PCP Internal Medicine; Visit Provider Internal Medicine
DX: I10 Essential (primary) hypertension (principal); E78.00 Pure hypercholesterolemia, unspecified; K21.9 Gastro-esophageal reflux disease without esophagitis; F41.1 Generalized anxiety disorder; Z90.3 Acquired absence of stomach [part of]; K20.90 Esophagitis, unspecified without bleeding; D50.9 Iron deficiency anemia, unspecified; M54.16 Radiculopathy, lumbar region
CPT/HCPCS: 99214

== ENCOUNTER 2023-06-27 12:27 | Emergency (ER) | payer OTHER, SELFPAY ==
[2023-06-27 12:36] VITALS: BP 122/57; PULSE 73; RESP 18; TEMP 37.1; O2SAT 100; BMI 20.7
--- NOTE | 2023-06-27 12:36 | ED.GENADULT ---
HPI - General Adult General Chief complaint: General Medical Stated complaint: Fever, vomiting, abd/back pain Time Seen by Provider: 06/27/23 19:20 History of Present Illness HPI narrative: The patient says that she has been sick for about 5 days. She describes having nausea, vomiting, diarrhea, and fevers to 103. She also has painful urination. She also has diarrhea. She also has dark stools. She says that she saw her primary care doctor yesterday and described the symptoms. She then came to the emergency room here today. Related Data Home Medications Medication Instructions Recorded Confirmed blood sugar diagnostic (OneTouch 08/15/22 02/01/23 Verio test strips) blood-glucose meter (Oneuch 08/15/22 02/01/23 Verio Meter) lancets 33 gauge (OneTouch Delica 08/15/22 02/01/23 Lancets) triamcinolone acetonide 0.1 % 1 appl topical DAILY 02/07/23 05/15/23 topical cream zolpidem 10 mg tablet 10 mg PO BEDTIME PRN Insomnia 02/07/23 05/15/23 Previous Rx's Medication Instructions Recorded blood pressure monitor (Blood #1 ea 10/31/21 Pressure Kit) BATH CHAIR #1 ea 01/31/22 CANE #1 ea 01/31/22 LIFELINE ALERT SYSTEM #1 ea 01/31/22 WRIST BRACE #1 ea 01/31/22 ALCOHOL PADS #100 ea 02/21/22 ROLLATOR #1 ea 05/23/22 SHOWER BAR #1 ea 06/08/22 SHOWER WAND #1 ea 06/08/22 Bed pads #100 ea 07/17/22 Bedside commode #1 ea 07/17/22 SANITARY PADS #100 ea 07/17/22 fluticasone propionate 50 1 spray intranasal DAILY #100 mL 07/27/22 mcg/actuation nasal spray,suspension (Flonase Allergy Relief) simethicone 40 mg/0.6 mL oral 0.6 ml PO BID-TID PRN abdominal 11/08/22 drops,suspension distention #15 mL food supplemt, lactose-reduced 0.1 1 ea PO TID #1,184 mL 01/29/23 gram-1.18 kcal/ mL oral liquid (Ensure Complete) polyethylene glycol 3350 17 gram 17 g PO DAILY #14 ea 01/31/23 oral powder packet (Miralax) famotidine 40 mg/5 mL (8 mg/mL) 20 mg (2.5 mL) PO BID #50 mL 03/03/23 oral suspension ondansetron 4 mg disintegrating 4 mg PO Q8H nausea and vomiting 03/03/23 tablet #20 tabs sumatriptan 5 mg/actuation nasal 5 mg intranasal Q2-4H PRN migraine 03/03/23 spray headache #6 ea Miracle Mouthwash-Alan 240 mL 15 ml PO BID #240 mL 03/16/23 liquid cdqkxsglh-yygtssycv-ytmspqhs-scop 5 ml PO BID PRN indigestion #50 mL 03/16/23 16.2 mg-0.1037 mg/5 mL (5 mL) elixir () prochlorperazine 25 mg rectal 25 mg MN Q12H PRN nausea and 03/16/23 suppository (Compro) vomiting #12 ea cyclobenzaprine 5 mg tablet 5 mg PO Q8H PRN pain (scale score 03/20/23 7-10) 5 days #14 tabs aluminum-mag hydroxide-simethicone 5 ml PO 5XD PRN indigestion #355 mL 04/16/23 200 mg-200 mg-20 mg/5 mL oral susp (Maalox Advanced) multivit-minerals no.73-iron 1 cap PO DAILY #30 caps 04/16/23 fumarate 106 mg-folic acid 1 mg capsule pantoprazole 40 mg tablet,delayed 40 mg PO BID 90 days #180 tabs 04/16/23 release sucralfate 100 mg/mL oral 5 ml PO QID #1,000 mL 04/16/23 suspension (Carafate) tramadol 50 mg tablet 50 mg PO TID PRN pain 30 days #90 04/25/23 tabs acetaminophen 160 mg/5 mL oral 320 mg (10 mL) PO Q6H PRN fever or 05/23/23 liquid pain #473 mL oseltamivir 6 mg/mL oral 75 mg (12.5 mL) PO BID 5 days #125 05/23/23 suspension (Tamiflu) mL sulfamethoxazole 200 20 ml PO BID 7 days #280 mL 06/27/23 mg-trimethoprim 40 mg/5 mL oral suspension Allergies Allergy/AdvReac Type Severity Reaction Status Date / Time hydrocodone [HYDROCODONE] Allergy Severe RASH, Verified 06/27/23 12:36 AIRWAY CLOSES ibuprofen [From MOTRIN] Allergy Intermediate STOMACH Verified 06/27/23 12:36 UPSET, vomiting trazodone [TRAZODONE] Allergy Intermediate stomach Verified 06/27/23 12:36 upset/anxiety tomato [TOMATO] Allergy Mild HIVES Verified 06/27/23 12:36 DIFFICULTY BREATHING egg Allergy Swelling Verified 06/27/23 12:36 black pepper [BLACK PEPPER] AdvReac Severe DIFFICULTY Verified 06/27/23 12:36 BREATHING, hives lisinopril AdvReac Severe Anaphylaxis Verified 06/27/23 12:36 Review of Systems Review of Systems: Yes all other systems are reviewed and are negative [facility] Past Medical History Medical History (Updated 06/27/23 @ 19:53 by Antonio Oliver MD) Vision changes Gastritis Tongue sore Right ear pain Numbness of left hand History of bipolar disorder History of schizophrenia 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 Spondylosis of lumbar spine Diverticulosis Insomnia Vitamin D deficiency GERD (gastroesophageal reflux disease) Carpal tunnel syndrome Hypercholesterolemia Renal calculi Hypertension Alcohol abuse Anxiety and depression Type 2 diabetes mellitus with hyperglycemia Surgical History History of esophagogastroduodenoscopy (EGD) Hx of colonoscopy Hx of bariatric surgery History of tubal ligation H/O: hysterectomy Family History Family History Father Medical history unknown Mother Medical history unknown Paternal Aunt Uterine cancer Diabetes Hypertension Paternal Uncle Liver cancer Heart attack Maternal Aunt Stroke Family/Other Chronic mental illness Sister Uterine cancer Schizophrenia Brother Substance abuse Other Mental health disorder Social History Social History Household Members: None Housing: Apartment Do you presently have visiting nurse or other home services: Yes Alcohol intake: never Patient Tobacco Use Status: Former Tobacco user Tobacco use type: Cigarette e-Cigarette/Vaping Use: Never Used Second Hand Smoke Exposure: No Substance Use Type: Marijuana Advance Directives: No Advance Directives Information Provided: No service: No Current occupational status: disabled Current occupational exposures/hazards: No Cognitive needs: No Hearing needs: No Vision needs: Yes Physical Exam ED Vital Signs: Vital Signs - 24 hr 06/27/23 12:36 Temperature 98.7 F Pulse Rate 73 Respiratory Rate 18 Blood Pressure 122/57 L Pulse Oximetry 100 Oxygen Delivery Method Room Air BMI result Body Mass Index 20.7 Const Other: Patient is a somewhat chronically ill-appearing 42-year-old. She does not appear obviously acutely ill however. HENMT Other: Face is symmetrical. Mucous membranes moist. Eyes Other: Pupils are round equal, conjunctivae are clear, extraocular movements intact Neck Other: Moving her neck easily, no neck swelling. Resp Other: Lungs are clear bilaterally. No increased work of breathing or signs of respiratory difficulty. Cardio Other: Regular rate and rhythm with no murmur GI Other: The abdomen seems soft and not particularly tender. Skin Other: Skin was dry and unremarkable Neuro Other: The patient is awake and alert. Face is symmetrical. Eye movements normal. Speech is clear. Moves all 4 extremities symmetrically. Grossly neurologically intact. Extrem Other: No peripheral edema. No calf swelling or tenderness. No calf asymmetry. Course Course Course Narrative: This is an RME: Additional HPI, ROS, PE not included below will be deferred to primary provider. This is a 60-qcpu-pub-danish speaking female, with a hx of gastric sleeve procedure in 2021, GERD, anemia, chronic lumbar radiculopathy, hypertension, hypercholesterolemia, and post gastrectomy malabsorption presenting to the ER with a complaint of fevers, low back pain, with complaint of dysuria, left low abdominal pain, back pain, and left lower back pain x several weeks. Having vomiting, diarrhea. Had appt with PCP yesterday. She has been seen many times here at [facility] [place]. Plan: labs, UA Medications Administered Discontinued Medications Generic Name Dose Route Start Last Admin Trade Name Freq PRN Reason Stop Dose Admin Trimethoprim/Sulfamethoxazole 1 tab 06/27/23 20:22 06/27/23 20:33 Sulfamethox/Trimeth 800/160 Tablet PO 06/27/23 20:23 1 tab ONCE ONE Administration Medical Decision Making Differential Diagnosis The patient presents with complaint of feeling unwell for 5 days. She has multiple symptoms including nausea, vomiting, diarrhea, fevers, dark stools, then difficulty with urination. Clinically the patient looks considerably better than the description of her symptoms would suggest. Her testing seems largely benign considering her complaints. White count is 3.9, hemoglobin 13.4, platelet count 327, differential on her white count is normal. Her metabolic panel is unremarkable. She is not acidotic. Her carbon dioxide is 30. Her BUN is 11 (BUN 2 weeks ago was 13). Creatinine the same as 2 weeks ago. LFTs unremarkable aside from an elevated total protein and albumin. Lipase is normal. CRP is undetectable. Only her urinalysis is unremarkable. She has 21-50 white cells without significant epithelial cells. She has trace leukocyte esterase. She has no urinary ketones. The patient had a positive urine culture for Staph saprophyticus 1 month ago and was prescribed cephalexin. She says she finished a course of antibiotics. Based on the sensitivities of her previous urine culture from 1 month ago I will start her on trimethoprim sulfamethoxazole. Otherwise I think she looks quite well and does not require further investigation or management in the emergency room today. Lab Data 06/27/23 12:51 06/27/23 12:51 Labs: Lab Results 06/27/23 06/27/23 Range/Units 12:51 18:42 WBC 3.9 L (4.8-10.8) X10*3/uL RBC 4.94 (4.20-5.50) X10*6/uL Hgb 13.4 (12.0-16.0) g/dl Hct 41.4 (37.0-47.0) % MCV 83.8 (80.0-98.0) fL MCH 27.1 (27.0-33.0) pg MCHC 32.4 (31.0-35.0) g/dl RDW 21.2 H (11.0-16.0) % Plt Count 327 (160-400) X10*3/uL MPV 10.0 (9.4-12.3) fL Immature Gran % (Auto) 0.3 (0.0-0.4) % Neut % (Auto) 54.4 (45-73) % Lymph % (Auto) 32.9 (20-40) % [place] % (Auto) 9.8 (2-11) % Eos % (Auto) 1.6 (0-4) % Baso % (Auto) 1.0 (0-2) % Lymph # (Auto) 1.3 (1.2-4.9) X10*3/uL [place] # (Auto) 0.4 (0.1-1.2) X10*3/uL Eos # (Auto) 0.1 (0.0-0.4) X10*3/uL Baso # (Auto) 0.0 (0.0-0.2) X10*3/uL Abs Immat Gran (auto) 0.01 (0.00-0.03) X10*3/uL Absolute Neuts (auto) 2.1 (2.0-8.3) x10*3/uL Absolute Nucleated RBC 0.000 (0.0-0.012) X10*3/uL Nucleated RBC % (auto) 0.0 (0.0-0.2) /100WBC Sodium 140 (135-145) mmol/L Potassium 3.7 (3.3-5.1) mmol/L Chloride 102 (96-108) mmol/L Carbon Dioxide 30 H (22-29) mmol/L Anion Gap 12 (12-20) BUN 11 (9-16) mg/dL Creatinine 0.68 (0.5-1.4) mg/dL Estim Creat Clear Calc 81.3 Estimated GFR > 60 Random Glucose 87 (60-115) mg/dL Calcium 9.6 (8.4-10.2) mg/dL Magnesium 2.1 (1.6-2.6) mg/dL Total Bilirubin 0.5 (0.0-1.0) mg/dL Direct Bilirubin 0.1 (0.0-0.5) mg/dL AST 14 (5-31) U/L ALT 8 (0-31) U/L Alkaline Phosphatase 69 (39-117) U/L C-Reactive Protein < 0.04 (< or = 0.50) mg/dL Total Protein 8.2 H (6.5-8.0) g/dL Albumin 5.1 H (3.5-5.0) g/dL Lipase 19 (8-78) U/L Beta HCG, Quant < 2 mIU/mL Urine Color Yellow Urine Appearance Clear Urine pH 7.5 (5.0-9.0) Ur Specific [place] 1.025 (1.005-1.025) Urine Protein 30 (1+) H (Neg-Trace) mg/dL Urine Glucose (UA) Negative (Negative) mg/dL Urine Ketones Negative (Negative) mg/dL Urine Blood Negative (Negative) Urine Nitrite Negative (Negative) Ur Leukocyte Esterase Trace H (Negative) Urine RBC 3-5 H (0-2) /HPF Urine WBC 21-50 H (0-5) /HPF Ur Squamous Epith Cells 3-5 (0-2) /HPF Urine Bacteria 1+ (None Seen) Hyaline Casts 0-2 (0-2) /LPF Influenza Type A (PCR) NEGATIVE (Negative) Influenza Type B (PCR) NEGATIVE (Negative) RSV RNA Qual (PCR) NEGATIVE (Negative) SARS-CoV-2 RNA (RT-PCR) NEGATIVE (Negative) Discharge Plan Discharge Clinical Impression: Urinary tract infection Patient Disposition: Home, Self-Care Instructions: Urinary Tract Infection in Women (DC) Additional Instructions: Your testing today suggests that you have a urinary tract infection. I have sent a prescription for an antibiotic to your pharmacy the you should take 2 times a day. This medication is sulfamethoxazole-trimethoprim. This is often known as Bactrim. Please take this medication 2 times a day. Drink a lot of fluids. Please stay in touch with your regular doctor for additional advice as needed and follow up with your regular doctor soon. If you are significantly worse please return to the emergency department. Prescriptions: New sulfamethoxazole-trimethoprim 200-40 mg/5 mL suspension 20 ml PO BID 7 Days Qty: 280 0RF No Action (DME) blood pressure monitor [Blood Pressure Kit] Kit See Rx Instructions .Route Qty: 1 0RF Rx Instructions: As directed (DME) CANE See Rx Instructions .Route .MEDSUPPLY Qty: 1 0RF Rx Instructions: As directed (DME) WRIST BRACE See Rx Instructions .Route .MEDSUPPLY Qty: 1 0RF Rx Instructions: As directed (DME) BATH CHAIR See Rx Instructions .Route .MEDSUPPLY Qty: 1 0RF Rx Instructions: As directed (DME) LIFELINE ALERT SYSTEM See Rx Instructions .Route .MEDSUPPLY Qty: 1 0RF Rx Instructions: As directed (DME) ALCOHOL PADS See Rx Instructions .Route .MEDSUPPLY Qty: 100 3RF Rx Instructions: As directed (DME) ROLLATOR See Rx Instructions .Route .MEDSUPPLY Qty: 1 0RF Rx Instructions: As directed (DME) SHOWER WAND See Rx Instructions .Route .MEDSUPPLY Qty: 1 0RF Rx Instructions: As directed (DME) SHOWER BAR See Rx Instructions .Route .MEDSUPPLY Qty: 1 0RF Rx Instructions: As directed (DME) Bedside commode See Rx Instructions .Route .MEDSUPPLY Qty: 1 0RF Rx Instructions: As directed (DME) Bed pads See Rx Instructions .Route .MEDSUPPLY Qty: 100 12RF Rx Instructions: As directed (DME) SANITARY PADS See Rx Instructions .Route .MEDSUPPLY Qty: 100 12RF Rx Instructions: As directed simethicone 40 mg/0.6 mL drops,suspension 0.6 ml PO BID-TID PRN (Reason: abdominal distention) Qty: 15 0RF Ensure Complete 0.1 gram-1.18 kcal/mL liquid 1 ea PO TID Qty: 1184 12RF polyethylene glycol 3350 [Miralax] 17 gram powder in packet 17 g PO DAILY Qty: 14 3RF Rx Instructions: Use daily until you have a normal bowel movement, then stop. tramadol 50 mg tablet 50 mg PO TID PRN (Reason: pain) 30 Days Qty: 90 0RF ondansetron 4 mg tablet,disintegrating 4 mg PO Q8H Qty: 20 0RF famotidine 40 mg/5 mL (8 mg/mL) suspension 20 mg PO BID Qty: 50 3RF sumatriptan 5 mg/actuation spray,non-aerosol 5 mg intranasal Q2-4H PRN (Reason: migraine headache) Qty: 6 1RF Rx Instructions: into each nostril once; if headache remains, may repeat total dose once after at least 2 hours cyclobenzaprine 5 mg tablet 5 mg PO Q8H PRN (Reason: pain (scale score 7-10)) 5 Days Qty: 14 0RF prochlorperazine [Compro] 25 mg suppository 25 mg MN Q12H PRN (Reason: nausea and vomiting) Qty: 12 0RF Miracle Mouthwash-Alan 240 mL liquid 15 ml PO BID Qty: 240 0RF Rx Instructions: Nystatin susp 80 mL;Lidocaine 2% Visc 80 mL; Maalox 80 mL; Swish and spit dexudydwn-jwfsnr-qmuwdyax-scop [] 16.2 mg-0.1037 mg/5 mL (5 mL) elixir 5 ml PO BID PRN (Reason: indigestion) Qty: 50 0RF oseltamivir [Tamiflu] 6 mg/mL suspension for reconstitution 75 mg PO BID 5 Days Qty: 125 0RF acetaminophen 160 mg/5 mL liquid 320 mg PO Q6H PRN (Reason: fever or pain) Qty: 473 0RF mv-mins no.73-iron fum-folic 106 mg iron- 1 mg capsule 1 cap PO DAILY Qty: 30 4RF sucralfate [Carafate] 100 mg/mL suspension 5 ml PO QID Qty: 1000 0RF Rx Instructions: swish in mouth and swallow; use after food/drink alum-mag hydroxide-simeth [Maalox Advanced] 200-200-20 mg/5 mL suspension 5 ml PO 5XD PRN (Reason: indigestion) Qty: 355 4RF Rx Instructions: administer between meals and at bedtime pantoprazole 40 mg tablet,delayed release (DR/EC) 40 mg PO BID 90 Days Qty: 180 1RF fluticasone propionate [Flonase Allergy Relief] 50 mcg/actuation spray,suspension 1 spray intranasal DAILY Qty: 100 0RF Rx Instructions: administer into each nostril (DME) blood-glucose meter [OneTouch Verio Meter] Misc See Rx Instructions .Route Rx Instructions: As directed (DME) OneTouch Verio test strips Strip See Rx Instructions .Route Rx Instructions: As directed 3 times a day (DME) lancets [OneTouch Delica Lancets] 33 gauge misc See Rx Instructions .Route Rx Instructions: As directed 3 times a day zolpidem 10 mg tablet 10 mg PO BEDTIME PRN (Reason: Insomnia) triamcinolone acetonide 0.1 % cream 1 appl topical DAILY Interventions: ED Discharge Assessment Last Done: 06/27/23 20:33 Discharge Date/Time: 06/27/23 20:35
[2023-06-27 12:56] LABS: MANUAL DIFF FLAG NO
[2023-06-27 12:57] LABS: Eosinophils Absolute Auto 0.1 X10*3/uL (0.0-0.4); Eosinophils Percent Auto 1.6 % (0-4); Hematocrit 41.4 % (37.0-47.0); Hemoglobin 13.4 g/dl (12.0-16.0); Imm Gran Abs Auto 0.01 X10*3/uL (0.00-0.03); Imm Gran Pct Auto 0.3 % (0.0-0.4); Lymphocytes Absolute Auto 1.3 X10*3/uL (1.2-4.9); Lymphocytes Percent Auto 32.9 % (20-40); Mean Corpuscular HGB Conc 32.4 g/dl (31.0-35.0); Mean Corpuscular Hemoglobin 27.1 pg (27.0-33.0); Mean Corpuscular Volume 83.8 fL (80.0-98.0); Monocytes Absolute Auto 0.4 X10*3/uL (0.1-1.2); Monocytes Percent Auto 9.8 % (2-11); Neutrophils Absolute Auto 2.1 x10*3/uL (2.0-8.3); Neutrophils Percent Auto 54.4 % (45-73); Platelet Count 327 X10*3/uL (160-400); Red Blood Count 4.94 X10*6/uL (4.20-5.50); Red Cell Distribution Width 21.2 % (11.0-16.0); White Blood Count 3.9 X10*3/uL (4.8-10.8)
[2023-06-27 13:18] LABS: Alanine Aminotransferase 8 U/L (0-31); Albumin Level 5.1 g/dL (3.5-5.0); Alkaline Phosphatase 69 U/L (39-117); Anion Gap 12 (12-20); Aspartate Amino Transferase 14 U/L (5-31); Bilirubin Direct 0.1 mg/dL (0.0-0.5); Bilirubin Total 0.5 mg/dL (0.0-1.0); Blood Urea Nitrogen 11 mg/dL (9-16); Calcium 9.6 mg/dL (8.4-10.2); Carbon Dioxide 30 mmol/L (22-29); Chloride 102 mmol/L (96-108); Creatinine Clr Calc Pharmacy 81.3; Estimated Glomerular Filt Rate > 60; Glucose Random 87 mg/dL (60-115); Lipase 19 U/L (8-78); Magnesium 2.1 mg/dL (1.6-2.6); Potassium 3.7 mmol/L (3.3-5.1); Sodium 140 mmol/L (135-145); Total Protein 8.2 g/dL (6.5-8.0)
[2023-06-27 13:32] LABS: Influenza A PCR NEGATIVE (Negative); Influenza B PCR NEGATIVE (Negative); Resp Syncy Virus RNA Qual PCR NEGATIVE (Negative); SARS COV2 PCR INHOUSE NEGATIVE (Negative)
[2023-06-27 16:51] LABS: HCG Quantitative < 2 mIU/mL
[2023-06-27 18:51] LABS: Appearance Urine Clear; Color Urine Yellow; Glucose Urine UA Negative (Negative); Leukocyte Esterase Urine Trace (Negative); Nitrite Urine Negative (Negative); PH 7.5 (5.0-9.0); Specific Gravity - Urine 1.025 (1.005-1.025); UMIC TRIGGER UACC YES; Urine Blood Negative (Negative); Urine Ketones Negative (Negative); Urine Protein 30 (1+) mg/dL (Neg-Trace)
--- NOTE | 2023-06-27 18:55 | PC.NURSE ---
Patient reports n/v/d x 5 days, reports knees gave out x 2 but denies headstrike. Reports had gastric sleeve in 2021 and it will be revised next month
[2023-06-27 18:56] LABS: Bacteria Urine 1+ (None Seen); Hyaline Casts Urine 0-2 /LPF (0-2); UACC Culture Trigger YES; WBC Urine 21-50 /HPF (0-5)
[2023-06-27] MEDS: Sulfamethox/Trimeth 800/160 TABLET 1 TAB PO (20:33)
[2023-06-27 20:37] LABS: C Reactive Protein < 0.04 mg/dL (< or = 0.50)
== END 2023-06-27 20:35 | disposition home or self-care (01) ==
PROVIDERS: Physician Assistant Medical; Emergency Provider Emergency Medicine; PCP Internal Medicine
DX: N39.0 Urinary tract infection, site not specified (principal); R50.9 Fever, unspecified; R11.2 Nausea with vomiting, unspecified; Z20.822 Contact with and (suspected) exposure to COVID-19; Z20.828 Contact with and (suspected) exposure to other viral communicable diseases; Z79.899 Other long term (current) drug therapy; Z87.891 Personal history of nicotine dependence
CPT/HCPCS: 0241U; 80048; 80076; 81001; 83690; 83735; 84702; 85025; 86140; 87086; 87088; 87186; 99283; 99284

== ENCOUNTER 2023-07-18 11:58 | Emergency (ER) | payer OTHER, SELFPAY ==
--- NOTE | ~2023-07-18 | US_ITS ---
EXAMINATION: US ABDOMEN LIMITED CLINICAL INFORMATION: Abdominal pain. COMPARISON: CT abdomen pelvis 03/20/2023 TECHNIQUE: Real-time imaging of the gallbladder only. FINDINGS: GALLBLADDER: The gallbladder is physiologically distended without evidence of stones, sludge, polyps, wall thickening or pericholecystic fluid. Hewitt's sign is reported to be positive. COMMON BILE DUCT: Normal in caliber measuring 0.2 cm in diameter. US/US abdomen limited IMPRESSION: Normal-appearing gallbladder. Hewitt's sign is reported to be positive, but there are no other signs of cholecystitis. If there is high clinical suspicion for cholecystitis, a HIDA scan could be obtained for further evaluation.
[2023-07-18 12:13] VITALS: BP 132/63; PULSE 69; RESP 16; TEMP 36.4; O2SAT 100; BMI 21.4
--- NOTE | 2023-07-18 12:19 | ECG_ITS ---
Test Reason : EPIGASTRIC PAIN Blood Pressure : / mmHG Vent. Rate : 060 BPM Atrial Rate : 060 BPM P-R Int : 150 ms QRS Dur : 088 ms QT Int : 398 ms P-R-T Axes : 064 075 053 degrees QTc Int : 398 ms Normal sinus rhythm Normal ECG When compared with ECG of 26-MAY-2023 13:18, No significant change was found Referred By: Tr Smith Electronically Signed By:DINA ESQUIVEL MD
--- NOTE | 2023-07-18 12:25 | ED_ITS ---
HPI - General Adult General Chief complaint: Abdominal Pain Stated complaint: Acid Reflux Esophagus & L Ear Issues Etc Time Seen by Provider: 07/18/23 15:57 Source: patient Mode of arrival: ambulatory Limitations: no limitations History of Present Illness HPI narrative: 42 yold female with pmh of GERD, anemia, HTN, hypercholesterolemia, and alcohol abuse presents to the ED for acid reflux for two days radiating to the left ear. Patient states subjecting fever and feels liquid in the ear. patient states no chest pain, nausea, vomitting, dysuria, hematuria, flank pain, recent trauma, or back pain. Related Data Home Medications Medication Instructions Recorded Confirmed blood sugar diagnostic (Student Retention SolutionsTouch 08/15/22 02/01/23 Verio test strips) blood-glucose meter (Student Retention SolutionsTouch 08/15/22 02/01/23 Verio Meter) lancets 33 gauge (OneTouch Delica 08/15/22 02/01/23 Lancets) triamcinolone acetonide 0.1 % 1 appl topical DAILY 02/07/23 05/15/23 topical cream zolpidem 10 mg tablet 10 mg PO BEDTIME PRN Insomnia 02/07/23 05/15/23 Previous Rx's Medication Instructions Recorded blood pressure monitor (Blood #1 ea 10/31/21 Pressure Kit) BATH CHAIR #1 ea 01/31/22 CANE #1 ea 01/31/22 LIFELINE ALERT SYSTEM #1 ea 01/31/22 WRIST BRACE #1 ea 01/31/22 ALCOHOL PADS #100 ea 02/21/22 SHOWER BAR #1 ea 06/08/22 SHOWER WAND #1 ea 06/08/22 Bed pads #100 ea 07/17/22 Bedside commode #1 ea 07/17/22 SANITARY PADS #100 ea 07/17/22 fluticasone propionate 50 1 spray intranasal DAILY #100 mL 07/27/22 mcg/actuation nasal spray,suspension (Flonase Allergy Relief) simethicone 40 mg/0.6 mL oral 0.6 ml PO BID-TID PRN abdominal 11/08/22 drops,suspension distention #15 mL food supplemt, lactose-reduced 0.1 1 ea PO TID #1,184 mL 01/29/23 gram-1.18 kcal/ mL oral liquid (Ensure Complete) polyethylene glycol 3350 17 gram 17 g PO DAILY #14 ea 01/31/23 oral powder packet (Miralax) famotidine 40 mg/5 mL (8 mg/mL) 20 mg (2.5 mL) PO BID #50 mL 03/03/23 oral suspension ondansetron 4 mg disintegrating 4 mg PO Q8H nausea and vomiting 03/03/23 tablet #20 tabs sumatriptan 5 mg/actuation nasal 5 mg intranasal Q2-4H PRN migraine 03/03/23 spray headache #6 ea Miracle Mouthwash-Alan 240 mL 15 ml PO BID #240 mL 03/16/23 liquid qchnzsupv-esuvthfxb-toxwprqo-scop 5 ml PO BID PRN indigestion #50 mL 03/16/23 16.2 mg-0.1037 mg/5 mL (5 mL) elixir () prochlorperazine 25 mg rectal 25 mg WA Q12H PRN nausea and 03/16/23 suppository (Compro) vomiting #12 ea cyclobenzaprine 5 mg tablet 5 mg PO Q8H PRN pain (scale score 03/20/23 7-10) 5 days #14 tabs multivit-minerals no.73-iron 1 cap PO DAILY #30 caps 04/16/23 fumarate 106 mg-folic acid 1 mg capsule pantoprazole 40 mg tablet,delayed 40 mg PO BID 90 days #180 tabs 04/16/23 release sucralfate 100 mg/mL oral 5 ml PO QID #1,000 mL 04/16/23 suspension (Carafate) tramadol 50 mg tablet 50 mg PO TID PRN pain 30 days #90 04/25/23 tabs acetaminophen 160 mg/5 mL oral 320 mg (10 mL) PO Q6H PRN fever or 05/23/23 liquid pain #473 mL oseltamivir 6 mg/mL oral 75 mg (12.5 mL) PO BID 5 days #125 05/23/23 suspension (Tamiflu) mL sulfamethoxazole 200 20 ml PO BID 7 days #280 mL 06/27/23 mg-trimethoprim 40 mg/5 mL oral suspension ROLLATOR #1 ea 06/28/23 famotidine 20 mg tablet (Pepcid) 20 mg PO BID 10 days #20 tabs 07/18/23 aluminum-mag hydroxide-simethicone 5 ml PO 5XD PRN indigestion #355 mL 07/19/23 200 mg-200 mg-20 mg/5 mL oral susp (Maalox Advanced) Allergies Allergy/AdvReac Type Severity Reaction Status Date / Time hydrocodone [HYDROCODONE] Allergy Severe RASH, Verified 06/27/23 12:36 AIRWAY CLOSES ibuprofen [From MOTRIN] Allergy Intermediate STOMACH Verified 06/27/23 12:36 UPSET, vomiting trazodone [TRAZODONE] Allergy Intermediate stomach Verified 06/27/23 12:36 upset/anxiety tomato [TOMATO] Allergy Mild HIVES Verified 06/27/23 12:36 DIFFICULTY BREATHING egg Allergy Swelling Verified 06/27/23 12:36 black pepper [BLACK PEPPER] AdvReac Severe DIFFICULTY Verified 06/27/23 12:36 BREATHING, hives lisinopril AdvReac Severe Anaphylaxis Verified 06/27/23 12:36 Review of Systems 2 Review of Systems: acid reflux and left ear pain for 2 days. 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 Spondylosis of lumbar spine Diverticulosis Insomnia Vitamin D deficiency GERD (gastroesophageal reflux disease) Carpal tunnel syndrome Hypercholesterolemia Renal calculi Hypertension Alcohol abuse Anxiety and depression Type 2 diabetes mellitus with hyperglycemia Surgical History History of esophagogastroduodenoscopy (EGD) Hx of colonoscopy Hx of bariatric surgery History of tubal ligation H/O: hysterectomy Family History Family History Father Medical history unknown Mother Medical history unknown Paternal Aunt Uterine cancer Diabetes Hypertension Paternal Uncle Liver cancer Heart attack Maternal Aunt Stroke Family/Other Chronic mental illness Sister Uterine cancer Schizophrenia Brother Substance abuse Other Mental health disorder Social History Social History Household Members: None Housing: Apartment Do you presently have visiting nurse or other home services: Yes Alcohol intake: never Patient Tobacco Use Status: Former Tobacco user Tobacco use type: Cigarette e-Cigarette/Vaping Use: Never Used Second Hand Smoke Exposure: No Substance Use Type: Marijuana Advance Directives: No Advance Directives Information Provided: No service: No Current occupational status: disabled Current occupational exposures/hazards: No Cognitive needs: No Hearing needs: No Vision needs: Yes Physical Exam ED Vital Signs: Vital Signs - 24 hr 07/18/23 12:13 Temperature 97.6 F Pulse Rate 69 Respiratory Rate 16 Blood Pressure 132/63 Pulse Oximetry 100 Oxygen Delivery Method Room Air BMI result Body Mass Index 21.4 Const General: cooperative, healthy appearing, comfortable, no acute distress, well developed, alert and awake Orientation/consciousness: oriented to person, oriented to place, oriented to time and patient oriented x3 HENIL Head: Yes normal to inspection, Yes No palpable skull fracture present, Yes normocephalic and Yes atraumatic Ears: hearing grossly normal bilaterally, external ears normal, TM's normal bilaterally, TM normal on the right, TM normal on the left, EAC's normal, mastoids normal and no periauricular adenopathy Throat: Yes posterior oropharynx normal, Yes tonsils normal and Yes uvula midline Eyes General: appearance normal, both eyes and all related structures Neck Neck: Yes normal visual inspection, Yes full ROM, Yes no lymphadenopathy, Yes no meningeal signs, Yes trachea midline, Yes supple, No anterior neck swelling and No tender Chest Chest palpation & inspection: normal inspection of the chest and normal palpation of entire chest wall Resp Effort & Inspection: normal respiratory effort and able to speak in complete sentences Auscultation: clear to auscultation bilaterally Cardio Jugular venous distension: no JVD Heart sounds: S1 normal heart sound present and S2 normal heart sound present GI Inspection: Yes normal to inspection Palpation (GI): Soft to palpation, not firm, nontender, no guarding and not rigid General: Yes no CVA tenderness Back/Spine/Pelvis Back: no CVA tenderness and No back tenderness Skin General skin exam: no rashes or lesions noted, elasticity normal and turgor normal Neuro General: oriented to person, oriented to place, oriented to time, patient oriented x3, gait normal, tone normal, moves all extremities, Normal light touch and pain sensation, no meningeal signs and no focal motor deficits Extrem Other: bilateral lower extremity negative for swelling, pitting edema, ecchyomosis, redness, or calf tenderness General: Yes normal to inspection, Yes full ROM and Yes capillary refill normal Psych Appearance: grossly normal, well kempt and not disheveled Course Course Course Narrative: RME: 42 yold female with pmh of GERD presents to the ED for epigastric abdominal pain going to left ear, fever, nuasea, and vomitting. labs, EKG, and abdominal ultrasound ordered. left ear exam is normal Medical Decision Making Medical Decision Making MDM Narrative: 42 yold female with pmh of GERd, HTN, anemia, presents to the ED acid burning sensation in epigastric area radiating to left ear for the past two day. Patient would like to leave and be discharged from the waiting room. Patient was explained she should wait to be evaluated by ED provider in the Main ED, but patient states she feels better and would like to be discharged. Patient does not want second troponin or to be evaluated in the main ED. intial labs, EkG, and Ultrasound negative for gallstones. Patient discharged with pepcid. ears negative for signs of infection. patient explained worrisome signs and informed to return to the ED if she has them. Patient did not want to give a urine sample. Patient does not want second troponin, HIDA SCan, or CT scan Abdomen. Heart Score 1 Differential Diagnosis Differential Diagnoses: The differential diagnosis associated with the presentation includes (GERD, pancreatitis, otitis media, otitis externa, gastriris, NM) Admission/Observation Consideration of admission/observation: Escalation of care including admission/observation considered Lab Data [facility] Lab Attestation statement: I reviewed the patient's lab results. 07/18/23 12:56 12 12:56 Labs: Lab Results 07/18/23 Range/Units 12:56 WBC 3.8 L (4.8-10.8) X10*3/uL RBC 4.21 (4.20-5.50) X10*6/uL Hgb 12.0 (12.0-16.0) g/dl Hct 36.5 L (37.0-47.0) % MCV 86.7 (80.0-98.0) fL MCH 28.5 (27.0-33.0) pg MCHC 32.9 (31.0-35.0) g/dl RDW 18.5 H (11.0-16.0) % Plt Count 289 (160-400) X10*3/uL MPV 9.5 (9.4-12.3) fL Immature Gran % (Auto) 0.0 (0.0-0.4) % Neut % (Auto) 52.6 (45-73) % Lymph % (Auto) 34.5 (20-40) % [place] % (Auto) 10.3 (2-11) % Eos % (Auto) 1.8 (0-4) % Baso % (Auto) 0.8 (0-2) % Lymph # (Auto) 1.3 (1.2-4.9) X10*3/uL [place] # (Auto) 0.4 (0.1-1.2) X10*3/uL Eos # (Auto) 0.1 (0.0-0.4) X10*3/uL Baso # (Auto) 0.0 (0.0-0.2) X10*3/uL Abs Immat Gran (auto) 0.00 (0.00-0.03) X10*3/uL Absolute Neuts (auto) 2.0 (2.0-8.3) x10*3/uL Absolute Nucleated RBC 0.000 (0.0-0.012) X10*3/uL Nucleated RBC % (auto) 0.0 (0.0-0.2) /100WBC Sodium 138 (135-145) mmol/L Potassium 3.7 (3.3-5.1) mmol/L Chloride 103 (96-108) mmol/L Carbon Dioxide 28 (22-29) mmol/L Anion Gap 11 L (12-20) BUN 11 (9-16) mg/dL Creatinine 0.64 (0.5-1.4) mg/dL Estim Creat Clear Calc 86.4 Estimated GFR > 60 Random Glucose 84 (60-115) mg/dL Calcium 9.1 (8.4-10.2) mg/dL Total Bilirubin 0.4 (0.0-1.0) mg/dL AST 12 (5-31) U/L ALT 7 (0-31) U/L Alkaline Phosphatase 53 (39-117) U/L Troponin I High Sens < 2.7 (<3.5-17.0) ng/L Total Protein 7.0 (6.5-8.0) g/dL Albumin 4.4 (3.5-5.0) g/dL Lipase 13 (8-78) U/L Beta HCG, Quant < 2 mIU/mL Influenza Type A (PCR) NEGATIVE (Negative) Influenza Type B (PCR) NEGATIVE (Negative) RSV RNA Qual (PCR) NEGATIVE (Negative) SARS-CoV-2 RNA (RT-PCR) NEGATIVE (Negative) S. pyogenes GrpA BRIDGER Negative (Negative) Independent Interpretation I performed an independent interpretation of an: EKG (Normal SInus rhythm. NOrmal EKG. NEgative STEMI) and Ultrasound External Record Review External record reviewed: Other (Prior Visits) Tests considered The following testing was considered but not selected: second troponin Prescription Management I considered prescription management with: Other (pepcid) Discharge Plan Discharge Clinical Impression: GERD (gastroesophageal reflux disease), Ear pain, left Patient Disposition: Home, Self-Care Instructions: Gastroesophageal Reflux Disease (ED), Earache (ED) Additional Instructions: Koehler electrocardiograma inicial y eleuterio an?lisis de breann resultaron normales y negativos para detectar signos de ataque card?aco. Tus enzimas hep?alex son normales. Koehler ultrasonido de abdomen result? negativo para c?lculos biliares. Mikel un seguimiento con koehler proveedor de atenci?n primaria. Si no proporcion? dylan muestra de orina, aseg?rese de hacerse un an?lisis de orina ma?silke y en el consultorio del proveedor de atenci?n primaria. Regrese al servicio de urgencias de inmediato si presenta dolor en el pecho, dificultad para respirar, v?mitos con breann, sangrado rectal, dolor epig?strico intenso, dolor de o?do, secreci?n de o?do, dolor de bert, mareos, disuria, hematuria, dolor abdominal o cualquier otro s?ntoma preocupante. Your initial EKG and blood work came back normal and negative for signs of heart attack. Your liver enzymes normal. Your ultrasound abdomen came back negative for gallstones. Please follow-up with your primary care provider. you did not provide a urine sample make sure you get urine tested tomorrow at primary care provider office. Return to the ED immediately for any chest pain, shortness of breath, vomiting blood, rectal bleeding, severe epigastric pain, ear pain, ear discharge, headache, dizziness, dysuria, hematuria, abdominal pain, or any other concerning symptoms. Prescriptions: New famotidine [Pepcid] 20 mg tablet 20 mg PO BID 10 Days Qty: 20 0RF No Action (DME) blood pressure monitor [Blood Pressure Kit] Kit See Rx Instructions .Route Qty: 1 0RF Rx Instructions: As directed (DME) CANE See Rx Instructions .Route .MEDSUPPLY Qty: 1 0RF Rx Instructions: As directed (DME) WRIST BRACE See Rx Instructions .Route .MEDSUPPLY Qty: 1 0RF Rx Instructions: As directed (DME) BATH CHAIR See Rx Instructions .Route .MEDSUPPLY Qty: 1 0RF Rx Instructions: As directed (DME) LIFELINE ALERT SYSTEM See Rx Instructions .Route .MEDSUPPLY Qty: 1 0RF Rx Instructions: As directed (DME) ALCOHOL PADS See Rx Instructions .Route .MEDSUPPLY Qty: 100 3RF Rx Instructions: As directed (DME) SHOWER WAND See Rx Instructions .Route .MEDSUPPLY Qty: 1 0RF Rx Instructions: As directed (DME) SHOWER BAR See Rx Instructions .Route .MEDSUPPLY Qty: 1 0RF Rx Instructions: As directed (DME) Bedside commode See Rx Instructions .Route .MEDSUPPLY Qty: 1 0RF Rx Instructions: As directed (DME) Bed pads See Rx Instructions .Route .MEDSUPPLY Qty: 100 12RF Rx Instructions: As directed (DME) SANITARY PADS See Rx Instructions .Route .MEDSUPPLY Qty: 100 12RF Rx Instructions: As directed simethicone 40 mg/0.6 mL drops,suspension 0.6 ml PO BID-TID PRN (Reason: abdominal distention) Qty: 15 0RF Ensure Complete 0.1 gram-1.18 kcal/mL liquid 1 ea PO TID Qty: 1184 12RF polyethylene glycol 3350 [Miralax] 17 gram powder in packet 17 g PO DAILY Qty: 14 3RF Rx Instructions: Use daily until you have a normal bowel movement, then stop. tramadol 50 mg tablet 50 mg PO TID PRN (Reason: pain) 30 Days Qty: 90 0RF (DME) ROLLATOR See Rx Instructions .Route .MEDSUPPLY Qty: 1 0RF Rx Instructions: As directed alum-mag hydroxide-simeth [Maalox Advanced] 200-200-20 mg/5 mL suspension 5 ml PO 5XD PRN (Reason: indigestion) Qty: 355 4RF Rx Instructions: administer between meals and at bedtime ondansetron 4 mg tablet,disintegrating 4 mg PO Q8H Qty: 20 0RF famotidine 40 mg/5 mL (8 mg/mL) suspension 20 mg PO BID Qty: 50 3RF sumatriptan 5 mg/actuation spray,non-aerosol 5 mg intranasal Q2-4H PRN (Reason: migraine headache) Qty: 6 1RF Rx Instructions: into each nostril once; if headache remains, may repeat total dose once after at least 2 hours cyclobenzaprine 5 mg tablet 5 mg PO Q8H PRN (Reason: pain (scale score 7-10)) 5 Days Qty: 14 0RF sulfamethoxazole-trimethoprim 200-40 mg/5 mL suspension 20 ml PO BID 7 Days Qty: 280 0RF prochlorperazine [Compro] 25 mg suppository 25 mg WA Q12H PRN (Reason: nausea and vomiting) Qty: 12 0RF Miracle Mouthwash-Alan 240 mL liquid 15 ml PO BID Qty: 240 0RF Rx Instructions: Nystatin susp 80 mL;Lidocaine 2% Visc 80 mL; Maalox 80 mL; Swish and spit ibcbldziw-eakoto-uzgorsfc-scop [] 16.2 mg-0.1037 mg/5 mL (5 mL) elixir 5 ml PO BID PRN (Reason: indigestion) Qty: 50 0RF oseltamivir [Tamiflu] 6 mg/mL suspension for reconstitution 75 mg PO BID 5 Days Qty: 125 0RF acetaminophen 160 mg/5 mL liquid 320 mg PO Q6H PRN (Reason: fever or pain) Qty: 473 0RF mv-mins no.73-iron fum-folic 106 mg iron- 1 mg capsule 1 cap PO DAILY Qty: 30 4RF sucralfate [Carafate] 100 mg/mL suspension 5 ml PO QID Qty: 1000 0RF Rx Instructions: swish in mouth and swallow; use after food/drink pantoprazole 40 mg tablet,delayed release (DR/EC) 40 mg PO BID 90 Days Qty: 180 1RF fluticasone propionate [Flonase Allergy Relief] 50 mcg/actuation spray,suspension 1 spray intranasal DAILY Qty: 100 0RF Rx Instructions: administer into each nostril (DME) blood-glucose meter [OneTouch Verio Meter] Misc See Rx Instructions .Route Rx Instructions: As directed (DME) OneTouch Verio test strips Strip See Rx Instructions .Route Rx Instructions: As directed 3 times a day (DME) lancets [OneTouch Delica Lancets] 33 gauge misc See Rx Instructions .Route Rx Instructions: As directed 3 times a day zolpidem 10 mg tablet 10 mg PO BEDTIME PRN (Reason: Insomnia) triamcinolone acetonide 0.1 % cream 1 appl topical DAILY Stand Alone Forms: Work/School Release Interventions: ED Discharge Assessment Last Done: 07/18/23 16:31 Discharge Date/Time: 07/18/23 16:31 Print Language: Latvian
[2023-07-18 13:07] LABS: MANUAL DIFF FLAG NO
[2023-07-18 13:09] LABS: Basophils Percent Auto 0.8 % (0-2); Eosinophils Absolute Auto 0.1 X10*3/uL (0.0-0.4); Eosinophils Percent Auto 1.8 % (0-4); Hematocrit 36.5 % (37.0-47.0); Lymphocytes Absolute Auto 1.3 X10*3/uL (1.2-4.9); Lymphocytes Percent Auto 34.5 % (20-40); Mean Corpuscular HGB Conc 32.9 g/dl (31.0-35.0); Mean Corpuscular Hemoglobin 28.5 pg (27.0-33.0); Mean Corpuscular Volume 86.7 fL (80.0-98.0); Mean Platelet Volume 9.5 fL (9.4-12.3); Monocytes Absolute Auto 0.4 X10*3/uL (0.1-1.2); Monocytes Percent Auto 10.3 % (2-11); Neutrophils Percent Auto 52.6 % (45-73); Platelet Count 289 X10*3/uL (160-400); Red Blood Count 4.21 X10*6/uL (4.20-5.50); Red Cell Distribution Width 18.5 % (11.0-16.0); White Blood Count 3.8 X10*3/uL (4.8-10.8)
[2023-07-18 13:20] LABS: IDNOW Serial# 08D9AD1C; Strep A Nucleic Acid Negative (Negative)
[2023-07-18 13:26] LABS: Alanine Aminotransferase 7 U/L (0-31); Albumin Level 4.4 g/dL (3.5-5.0); Alkaline Phosphatase 53 U/L (39-117); Anion Gap 11 (12-20); Aspartate Amino Transferase 12 U/L (5-31); Bilirubin Total 0.4 mg/dL (0.0-1.0); Blood Urea Nitrogen 11 mg/dL (9-16); Calcium 9.1 mg/dL (8.4-10.2); Carbon Dioxide 28 mmol/L (22-29); Chloride 103 mmol/L (96-108); Creatinine Clr Calc Pharmacy 86.4; Estimated Glomerular Filt Rate > 60; Glucose Random 84 mg/dL (60-115); Lipase 13 U/L (8-78); Potassium 3.7 mmol/L (3.3-5.1); Sodium 138 mmol/L (135-145)
[2023-07-18 13:34] LABS: Troponin-I High Sensitivity < 2.7 ng/L (<3.5-17.0)
[2023-07-18 13:46] LABS: Influenza A PCR NEGATIVE (Negative); Influenza B PCR NEGATIVE (Negative); Resp Syncy Virus RNA Qual PCR NEGATIVE (Negative); SARS COV2 PCR INHOUSE NEGATIVE (Negative)
[2023-07-18 14:41] LABS: HCG Quantitative < 2 mIU/mL
== END 2023-07-18 16:31 | disposition home or self-care (01) ==
PROVIDERS: Physician Assistant; Emergency Provider Emergency Medicine; PCP Internal Medicine
DX: K21.9 Gastro-esophageal reflux disease without esophagitis (principal); H92.02 Otalgia, left ear; R50.9 Fever, unspecified; R11.2 Nausea with vomiting, unspecified; R60.0 Localized edema; R10.13 Epigastric pain; I10 Essential (primary) hypertension; Z79.899 Other long term (current) drug therapy; Z20.822 Contact with and (suspected) exposure to COVID-19; Z20.828 Contact with and (suspected) exposure to other viral communicable diseases
CPT/HCPCS: 0241U; 76705; 80053; 83690; 84484; 84702; 85025; 87651; 93005; 99283; 99284

== ENCOUNTER → 2023-07-18 12:19 | Outpatient (BNV) | payer OTHER, SELFPAY | PROVIDERS: Emergency Provider Emergency Medicine; PCP Internal Medicine; Visit Provider Internal Medicine Cardiovascular Disease | DX: R10.13 Epigastric pain (principal) | CPT/HCPCS: 93010 ==

== ENCOUNTER 2023-08-07 12:50 | Outpatient (AMB) | payer OTHER, SELFPAY ==
[2023-08-07 12:53] VITALS: BP 130/70; BMI 21.2
--- NOTE | 2023-08-07 12:53 | A.OFFVIS_ITS ---
Intake Vital Signs 08/07/23 12:53 Height 5 ft 1 in Weight 112 lb BMI 21.2 BP 130/70 Intake Visit Reasons: [employer] SAL[employer] annual exam Certified Ophthalmic Medical Technician Required: No Information Interpreted: non-clinical & clinical Superintendent Operating: Superintendent Operating Present (Aidyn) Allergies hydrocodone [HYDROCODONE] Allergy (Severe, Verified 08/07/23 12:57) RASH, AIRWAY CLOSES ibuprofen [From MOTRIN] Allergy (Intermediate, Verified 08/07/23 12:57) STOMACH UPSET, vomiting trazodone [TRAZODONE] Allergy (Intermediate, Verified 08/07/23 12:57) stomach upset/anxiety tomato [TOMATO] Allergy (Mild, Verified 08/07/23 12:57) HIVES DIFFICULTY BREATHING egg Allergy (Verified 08/07/23 12:57) Swelling black pepper [BLACK PEPPER] Adverse Reaction (Severe, Verified 08/07/23 12:57) DIFFICULTY BREATHING, hives lisinopril Adverse Reaction (Severe, Verified 08/07/23 12:57) Anaphylaxis Is last menstrual period known: No Patient : No HPI HPI Comments History of Present Illness Details Presenting for annual exam. No complaints. Last Pap/HPV was many years ago no history of abnormal Pap smears according the patient, the patient's status was hysterectomy for AUB Last Mammogram was more than a year ago [facility] Medical History Vision changes Gastritis Tongue sore Right ear pain Numbness of left hand History of bipolar disorder History of schizophrenia 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 Spondylosis of lumbar spine Diverticulosis Insomnia Vitamin D deficiency GERD (gastroesophageal reflux disease) Carpal tunnel syndrome Hypercholesterolemia Renal calculi Hypertension Alcohol abuse Anxiety and depression Type 2 diabetes mellitus with hyperglycemia Surgical History History of esophagogastroduodenoscopy (EGD) Hx of colonoscopy Hx of bariatric surgery History of tubal ligation H/O: hysterectomy Family History Father Medical history unknown Mother Medical history unknown Paternal Aunt Uterine cancer Diabetes Hypertension Paternal Uncle Liver cancer Heart attack Maternal Aunt Stroke Family/Other Chronic mental illness Sister Uterine cancer Schizophrenia Brother Substance abuse Other Mental health disorder Social History Household Members: None Housing: Apartment Do you presently have visiting nurse or other home services: Yes Alcohol intake: never Patient Tobacco Use Status: Former Tobacco user Tobacco use type: Cigarette e-Cigarette/Vaping Use: Never Used Second Hand Smoke Exposure: No Substance Use Type: Marijuana service: No Current occupational status: disabled Current occupational exposures/hazards: No Cognitive needs: No Hearing needs: No Vision needs: Yes Female Reproductive History Menstrual Age of Menarche: 11 control method: permanent sterilization Total pregnancies: 7 Full term: 5 Number of Living Children: 5 Ab spontaneous: 2 Review of Systems Const All systems reviewed & are unremarkable except as noted in HPI and below Card Reports as per HPI and Reports no additional complaints Resp Reports as per HPI and Reports no additional complaints GI Reports as per HPI and Reports no additional complaints Reports as per HPI Physical Exam Vital Signs: BMI result Body Mass Index 21.2 Const General: cooperative, healthy appearing and comfortable General: Yes bladder normal to palpation External Female Exam: No lesion Speculum Exam - Vagina: normal appearance of the vagina, normal vaginal discharge and not erythematous Speculum Exam - Cervix: Cervix absent Bimanual exam- vagina & uterus: bladder normal to palpation and uterus absent Bimanual Exam- Adnexa, other: Other (No masses detected) Assessment & Plan Assessment & Plan (1) Well woman exam: Code(s): Z01.419 - Encounter for gynecological examination (general) (routine) without abnormal findings Plan: Cotesting not indicated the patient is status post hysterectomy with no history of abnormal Pap smears according to the patient. Mammogram ordered. Counseled the patient about the recommended dietary allowance of 1000 mg of Calcium & 600 IU of vitamin D. The patient was instructed to perform monthly self-breast exams and to schedule an annual exam in a year; All questions answered and the patient verbalized understanding. Instructed the patient to schedule annual exam in a year Orders: Orders MM tomosynthesis screening BI Today Z12.31 - Encounter for screening mammogram for malignant neoplasm of breast Coding Level of Care Code Est Pt Prev Care 40-64y(31374) Diagnoses Well woman exam Z01.419
== END 2023-08-07 13:16 | disposition home or self-care (01) ==
LOC: HO.HWS 12:50
PROVIDERS: PCP Internal Medicine; Visit Provider Obstetrics & Gynecology
DX: Z01.419 Encounter for gynecological examination (general) (routine) without abnormal findings (principal)
CPT/HCPCS: 99396

== ENCOUNTER → 2023-08-07 12:50 | Outpatient (BNVA) | payer OTHER, SELFPAY | PROVIDERS: PCP Internal Medicine; Visit Provider Obstetrics & Gynecology | DX: Z01.419 Encounter for gynecological examination (general) (routine) without abnormal findings (principal) | CPT/HCPCS: 99396 ==

== ENCOUNTER 2023-08-08 10:25 | Outpatient (AMB) | payer OTHER, SELFPAY ==
[2023-08-08 10:30] VITALS: BP 102/58; PULSE 65; O2SAT 99; BMI 20.6
--- NOTE | 2023-08-08 10:30 | A.OFFPC_ITS ---
Vital Signs 08/08/23 10:30 Height 5 ft 1 in Weight 109 lb BMI 20.6 BP 102/58 L Blood Pressure Location Lt brachial Position Sitting Pulse 65 Pulse Source Pulse Oximeter Pulse Oximetry (%) 99 Oxygen Delivery Method Room Air Intake Visit Reasons: Annual exam Allergies hydrocodone [HYDROCODONE] Allergy (Severe, Verified 08/08/23 10:31) RASH, AIRWAY CLOSES ibuprofen [From MOTRIN] Allergy (Intermediate, Verified 08/08/23 10:31) STOMACH UPSET, vomiting trazodone [TRAZODONE] Allergy (Intermediate, Verified 08/08/23 10:31) stomach upset/anxiety tomato [TOMATO] Allergy (Mild, Verified 08/08/23 10:31) HIVES DIFFICULTY BREATHING egg Allergy (Verified 08/08/23 10:31) Swelling black pepper [BLACK PEPPER] Adverse Reaction (Severe, Verified 08/08/23 10:31) DIFFICULTY BREATHING, hives lisinopril Adverse Reaction (Severe, Verified 08/08/23 10:31) Anaphylaxis Medication List - Last Reconciled 08/08/23 by Deirdre Cantrell MD acetaminophen 320 mg (10 mL) PO Q6H PRN [ALCOHOL PADS As directed] alum-mag hydroxide-simeth 200-200-20 mg/5 mL (Maalox Advanced) 5 mL PO 5XD PRN [BATH CHAIR As directed] [Bed pads As directed] [Bedside commode As directed] blood pressure monitor (Blood Pressure Kit) As directed blood sugar diagnostic ([employer] Verio test strips) As directed 3 times a day blood-glucose meter ([employer] Verio Meter) As directed [CANE As directed] clonazepam 1 mg PO TID cyclobenzaprine 5 mg PO Q8H PRN 5 days famotidine (Pepcid) 20 mg PO BID 10 days fluticasone propionate 50 mcg/actuation (Flonase Allergy Relief) 1 spray intranasal DAILY food supplemt, lactose-reduced (Ensure Complete) 1 ea PO TID lancets ([employer] Delica Lancets) As directed 3 times a day [LIFELINE ALERT SYSTEM As directed] Miracle Mouthwash-Alan 15 mL PO BID mv-mins no.73-iron fum-folic 106 mg iron- 1 mg 1 cap PO DAILY ondansetron 4 mg PO Q8H pantoprazole 40 mg PO BID 90 days emnasecax-xgxysm-lfbfqckb-scop 16.2 mg-0.1037 mg/5 mL (5 mL) () 5 mL PO BID PRN polyethylene glycol 3350 (Miralax) 17 grams PO DAILY prochlorperazine (Compro) 25 mg CO Q12H PRN [ROLLATOR As directed] [SANITARY PADS As directed] [SHOWER BAR As directed] [SHOWER WAND As directed] simethicone 0.6 mL PO BID-TID PRN simethicone (Gas Relief (simethicone)) 160 mg PO BID sucralfate (Carafate) 5 mL PO QID sumatriptan 5 mg/actuation 5 mg intranasal Q2-4H PRN tramadol 50 mg PO TID PRN 30 days triamcinolone acetonide 0.1% 1 appl topical DAILY ursodiol 300 mg PO BID [WRIST BRACE As directed] zolpidem 10 mg PO BEDTIME PRN Tobacco use date assessed: 08/08/23 Dental Screening Dental Screen Date: 08/08/23 Did you have a dental visit in the last 12 months?: Yes Did you have a dental problem in the last 6 months where you did not have access to dental care?: No Was dental information given to patient?: Patient has dentist HPI Annual exam HPI Details 42-year-old female with a history of sle julia gastrectomy hypertension hypercholesterolemia GERD iron deficiency anemia with chronic low back pain coming in for physical exam last seen in May 2023. Patient's colonoscopy is up-to-date November 2018. Received [facility] discharge notes patient underwent the Bhavna XI laparoscopic sleeve converted to gastric bypass under Fellow 07/27/2023. ER visit for GERD and left ear pain. 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 Spondylosis of lumbar spine Diverticulosis Insomnia Vitamin D deficiency GERD (gastroesophageal reflux disease) Carpal tunnel syndrome Hypercholesterolemia Renal calculi Hypertension Alcohol abuse Anxiety and depression Type 2 diabetes mellitus with hyperglycemia Surgical History (Updated 08/08/23 @ 11:17 by Deirdre Cantrell MD) History of esophagogastroduodenoscopy (EGD) Hx of colonoscopy Hx of bariatric surgery History of tubal ligation H/O: hysterectomy Family History (Updated 08/08/23 @ 11:26 by Deirdre Cantrell MD) Father Medical history unknown Mother Medical history unknown Paternal Aunt Uterine cancer Diabetes Hypertension Paternal Uncle Liver cancer Heart attack Lung cancer Maternal Aunt Stroke Family/Other Chronic mental illness Sister Uterine cancer Schizophrenia Brother Substance abuse Paternal Grandmother Lung cancer Other Mental health disorder Social History Household Members: None Housing: Apartment Do you presently have visiting nurse or other home services: Yes Alcohol intake: never Patient Tobacco Use Status: Former Tobacco user Tobacco use type: Cigarette e-Cigarette/Vaping Use: Never Used Second Hand Smoke Exposure: No Substance Use Type: Marijuana service: No Current occupational status: disabled Current occupational exposures/hazards: No Cognitive needs: No Hearing needs: No Vision needs: Yes Female Reproductive History Menstrual Age of Menarche: 11 Questionnaire PHQ-9 Over the last 2 weeks, how often have you been bothered by any of the following problems? 1. Little interest or pleasure in doing things: several days 2. Feeling down, depressed, or hopeless: several days 3. Trouble falling or staying asleep, or sleeping too much: several days 4. Feeling tired or having little energy: several days 5. Poor appetite or overeating: several days 6. Feeling bad about yourself - or that you are a failure or have let yourself or your family down: not at all 7. Trouble concentrating on things, such as reading the newspaper or watching television: not at all 8. Moving or speaking so slowly that other people could have noticed. Or the opposite - being so fidgety or restless that you have been moving around a lot more than usual: not at all 9. Thoughts that you would be better off or of hurting yourself in some way: not at all Total score: 5 Depression Screening Interpretation: Positive Depression Screening Done: Yes 43000 - PHQ-9 Billing: Yes Source: Developed by Drs. Dinesh Freire, Niru Dimas, Denys Dodson and colleagues, with an educational mihai from [employer]. Thrive Questionnaire Date Thrive assessed: 08/08/23 I am a: Patient What is your living situation today?: I have a steady place to live Within the past 12 months, did the food you bought not last and you didn't have the money to get more?: Never true Within the past 12 months, did you worry whether your food would run out before you got money to buy more?: Never true Do you have trouble paying for medicines?: No Do you have trouble getting transportation to medical appointments?: No Do you have trouble paying your heating and electricity bill?: No Do you have trouble taking care of your child, family member or friend?: No Do you have trouble with day-to-day activities such as bathing, preparing meals, shopping, managing finances, etc.?: No Are you currently unemployed and looking for a job?: No Are you interested in more education?: No Currently or been in a relationship where the following occur: no concerns reported AUDIT C Alcohol Use Questionnaire (AUDIT-C) 1. How often do you have a drink containing alcohol?: Never Total Score: 0 Score Reviewed/Action Taken: No JUDITH-7 AMB Questionnaire JUDITH-7 Date JUDITH - 7 assessed: 08/08/23 Feeling nervous, anxious, or on edge: 1 = Several days Not being able to stop or control worryin = Several days Worrying too much about different things: 1 = Several days Trouble relaxin = Several days Being so restless that it is hard to sit still: 1 = Several days Becoming easily annoyed or irritable: 1 = Several days Feeling afraid as if something awful might happen: 1 = Several days Total JUDITH-7 score (0-4 normal; 5-9 mild; 10-14 moderate; 15-21 severe): 7 Source: Developed by Drs. Dinesh Freire, Niru Dimas, Denys Dodson and colleagues, with an educational mihai from [employer]. Review of Systems Const Denies poor appetite and Denies weakness Eyes Denies no additional complaints ENT Reports Normal hearing present, Denies dizziness, Denies nasal congestion, Denies tinnitus and Denies sore throat Card Denies chest pain, Denies syncope, Denies rapid heart rate and Denies dyspnea Resp Denies cough and Denies dyspnea GI Denies change in stool character, Reports constipation, Denies diarrhea, Denies nausea and Denies vomiting Denies urinary frequency, Denies difficulty voiding and Denies dysuria Neuro Reports Normal hearing present, Denies confusion, Denies dizziness, Denies syncope and Denies weakness Psych Denies confusion Physical exam (Primary Care) Vital Signs: Last Vital Signs Pulse 65 08/08/23 10:30 BP 102/58 L 08/08/23 10:30 Pulse Ox 99 08/08/23 10:30 Oxygen Delivery Method Room Air 08/08/23 10:30 BMI result Body Mass Index 20.6 Tobacco/Smoking Status: Tobacco use Status Tobacco use date assessed 08/08/23 08/08/23 10:33 Patient Tobacco Use Status Former Tobacco user 08/08/23 10:33 Tobacco use type Cigarette 08/08/23 10:33 e-Cigarette/Vaping Use Never Used 08/08/23 10:33 PHQ-9: PHQ-9 Score PHQ-9: Total score 5 08/08/23 10:33 Depression Screening Interpretation: Positive Thrive Assessment: Date of Thrive Assessment Date Thrive assessed 08/08/23 08/08/23 10:33 Currently or been in a relationship where the following occur: no concerns reported Const General: No confusion Orientation/consciousness: No confusion HENMT Head: Yes normocephalic Ears: external ears normal and TM's normal bilaterally Face and sinus: Yes normal facial exam Mouth: moist mucous membranes Throat: Yes tonsils normal Eyes Conjunctivae: conjunctivae normal Pupils: Equal, round and reactive pupils present and Pupil accommodation reflex normal Direct Ophthalmoscopy: normal light reflex Neck Neck: No lymphadenopathy Thyroid: Thyroid normal Chest Chest palpation & inspection: normal inspection of the chest Resp Effort & Inspection: normal respiratory effort and no audible wheezes Auscultation: clear to auscultation bilaterally, no crackles, no wheezes and lung sounds not diminished Cardio Rate: regular rate Rhythm: regular rhythm Peripheral pulses: radial pulses present and dorsalis pedis present GI Palpation (GI): no masses Auscultation: normal bowel sounds and normoactive bowel sounds Rectal Exam - Female: deferred Skin General skin exam: no rashes or lesions noted Rashes: no rashes Neuro General: No confusion Cranial nerves: Yes Equal, round and reactive pupils present and Yes Normal hearing present Cognition (Neuro): normal cognition Gait exam (Neuro): Normal gait present Motor exam (neuro): 5/5 motor strength present throughout Deep tendon reflexes (DTR's): Right brachioradialis reflex intensity grade: 2+, Left brachioradialis reflex intensity grade: 2+, Right patellar reflex intensity grade: 2+ and Left patellar reflex intensity grade: 2+ Extrem General: No edema Assessment and Plan Assessment & Plan (1) Annual physical exam: Code(s): Z00.00 - Encounter for general adult medical examination without abnormal findings (2) S/P gastric sleeve procedure: Comment: 10/19/21 - Bhavna assisted gastric sleeve gastrectomy by Dr. Americo GUTIERRES laparoscopic sleeve converted to gastric bypass under 07/27/2023. Code(s): Z90.3 - Acquired absence of stomach [part of] (3) Hypertension: Code(s): I10 - Essential (primary) hypertension Qualifiers: Hypertension type: essential hypertension Qualified Code(s): I10 - Essential (primary) hypertension (4) Hypercholesterolemia: Code(s): E78.00 - Pure hypercholesterolemia, unspecified (5) GERD (gastroesophageal reflux disease): Code(s): K21.9 - Gastro-esophageal reflux disease without esophagitis (6) Generalized anxiety disorder: Comment: [facility] Code(s): F41.1 - Generalized anxiety disorder (7) Constipation: Code(s): K59.00 - Constipation, unspecified (8) Vision changes: Code(s): H53.9 - Unspecified visual disturbance Orders: Orders Comprehensive Met. Panel 3 Months Z90.3 - Acquired absence of stomach [part of] Free T4 (Free Thyroxine) 3 Months Z90.3 - Acquired absence of stomach [part of] Thyroid Stimulating Hormone 3 Months Z90.3 - Acquired absence of stomach [part of] Magnesium 3 Months Z90.3 - Acquired absence of stomach [part of] Complete Blood Count Auto Diff 3 Months Z90.3 - Acquired absence of stomach [part of] Vitamin B12 and Folate 3 Months Z90.3 - Acquired absence of stomach [part of] Vitamin B1 3 Months Z90.3 - Acquired absence of stomach [part of] Referrals Ophthalmology Referral H53.9 - Unspecified visual disturbance Medications: Changed From linaclotide (Linzess) 1 cap PO DAILY To linaclotide (Linzess) 290 mcg PO DAILY 30 caps 1RF Refilled fluticasone propionate 50 mcg/actuation (Flonase Allergy Relief) administer into each nostril 1 spray intranasal DAILY 100 mL 0RF H92.01 - Otalgia, right ear sucralfate (Carafate) swish in mouth and swallow; use after food/drink 5 mL PO QID 1,000 mL 0RF D64.9 - Anemia, unspecified Coding Level of Care Code Est Pt Prev Care 40-64y(39878) Diagnoses Annual physical exam Z00.00 S/P gastric sleeve procedure Z90.3 Essential hypertension I10 Hypertension type: essential hypertension Hypercholesterolemia E78.00 Gastroesophageal reflux disease without esophagitis K21.9 Generalized anxiety disorder F41.1 Constipation K59.00 Vision changes H53.9
== END 2023-08-08 11:44 | disposition home or self-care (01) ==
PROVIDERS: PCP Internal Medicine; Visit Provider Internal Medicine
DX: Z00.00 Encounter for general adult medical examination without abnormal findings (principal); Z90.3 Acquired absence of stomach [part of]; I10 Essential (primary) hypertension; E78.00 Pure hypercholesterolemia, unspecified; K21.9 Gastro-esophageal reflux disease without esophagitis; F41.1 Generalized anxiety disorder; K59.00 Constipation, unspecified; H53.9 Unspecified visual disturbance
CPT/HCPCS: 99396

== ENCOUNTER 2023-09-07 09:18 | Emergency (ER) | payer OTHER, SELFPAY ==
--- NOTE | ~2023-09-07 | US_ITS ---
EXAMINATION: US ABDOMEN LIMITED CLINICAL INFORMATION: Acute cholecystitis, gallbladder distention and pain. COMPARISON: CT abdomen and pelvis 09/17/2023 TECHNIQUE: Real-time imaging of the gallbladder. FINDINGS: GALLBLADDER: The bladder is distended without wall thickening or cholelithiasis. There is trace pericholecystic free fluid which is nonspecific given the background of generalized volume ascites. [employer] Office Instructor reports tenderness over the gallbladder however does not document any rises to the level of a sonographic Hewitt sign. COMMON BILE DUCT: Normal in caliber measuring 0.3 cm in diameter. US/US abdomen limited IMPRESSION: Gallbladder is distended without wall thickening or cholelithiasis. There is trace pericholecystic free fluid which is nonspecific given the background of generalized volume ascites. [employer] Instructor reports tenderness over the gallbladder however does not document any rises to the level of a sonographic Hewitt sign. Findings are not considered likely to reflect acute calculus cholecystitis however recommend correlation with risk factors and HIDA scan could be obtained if warranted clinically for confirmation given there are some equivocal findings.
--- NOTE | ~2023-09-07 | CT_ITS ---
EXAMINATION: CT ABDOMEN AND PELVIS WITH CONTRAST CLINICAL INFORMATION: Lower abdominal pain. COMPARISON: 03/20/2023 TECHNIQUE: Multidetector volumetric images were obtained from the superior aspect of the liver through the pubic symphysis following administration 85 mL of Omnipaque 350 intravenous contrast. Sagittal and coronal reformatted images were obtained on the technologist's workstation. Oral contrast: No This CT examination was performed using dose optimization techniques as appropriate, variously including the following: *Automated exposure control *Adjustment of mA and/or kV according to patient size (this includes techniques or standardized protocols for targeted exams where dose is matched to indication/reason for exam; i.e. extremities or head) *Use of iterative reconstruction technique DLP: 263 mGy-cm FINDINGS: LUNG BASES: Dilated esophagus with transition at the gastroesophageal junction. LIVER, GALLBLADDER, AND BILIARY TREE: The liver is normal in size and contour. No suspicious hepatic lesion or biliary ductal dilatation is present. The gallbladder is distended. Perihepatic free fluid. PANCREAS: No ductal dilatation. SPLEEN: Not enlarged. ADRENAL GLANDS: No adrenal mass. KIDNEYS AND URETERS: The kidneys are symmetric in size and enhancement. No hydronephrosis or perinephric fluid. BLADDER: Unremarkable. GASTROINTESTINAL TRACT: Status post gastric bypass. Wall thickening of the rectosigmoid colon. Mid to distal small bowel wall thickening. No bowel obstruction. Marked fecal burden in the colon. ABDOMINAL WALL: No significant hernia is appreciated. LYMPH NODES: No bulky lymphadenopathy VASCULAR: Normal caliber abdominal aorta. PELVIC VISCERA: Uterus is surgically absent. Small free fluid in pelvis. OSSEOUS STRUCTURES: No destructive bone lesions. CT/CT abdomen pelvis w IV con IMPRESSION: Finding suggestive of interval revision/conversion of sleeve gastrectomy to Luis Enrique-en-Y gastric bypass. Wall thickening of the gastric remnant may represent postsurgical change. Advise correlation with surgical history. Wall thickening of mid to distal small bowel loops. Wall thickening of the rectosigmoid colon. This may represent enterocolitis. Infectious and inflammatory etiologies should be considered. Distended gallbladder. Advise correlation with right upper quadrant ultrasound. Small abdominopelvic ascites. Constipation. Dilated distal esophagus with transition at the gastroesophageal junction.
[2023-09-07 09:31] VITALS: BP 145/115; PULSE 85; RESP 22; TEMP 36.3; O2SAT 100; BMI 20.5
[2023-09-07 09:54] LABS: MANUAL DIFF FLAG NO
[2023-09-07 09:57] LABS: Basophils Absolute Auto 0.1 X10*3/uL (0.0-0.2); Basophils Percent Auto 1.3 % (0-2); Eosinophils Absolute Auto 0.1 X10*3/uL (0.0-0.4); Eosinophils Percent Auto 1.8 % (0-4); Hematocrit 42.3 % (37.0-47.0); Hemoglobin 13.8 g/dl (12.0-16.0); Imm Gran Abs Auto 0.02 X10*3/uL (0.00-0.03); Imm Gran Pct Auto 0.4 % (0.0-0.4); Lymphocytes Absolute Auto 1.7 X10*3/uL (1.2-4.9); Lymphocytes Percent Auto 30.9 % (20-40); Mean Corpuscular HGB Conc 32.6 g/dl (31.0-35.0); Mean Corpuscular Hemoglobin 29.5 pg (27.0-33.0); Mean Corpuscular Volume 90.4 fL (80.0-98.0); Mean Platelet Volume 9.8 fL (9.4-12.3); Monocytes Absolute Auto 0.5 X10*3/uL (0.1-1.2); Neutrophils Absolute Auto 3.1 x10*3/uL (2.0-8.3); Neutrophils Percent Auto 56.6 % (45-73); Platelet Count 355 X10*3/uL (160-400); Red Blood Count 4.68 X10*6/uL (4.20-5.50); Red Cell Distribution Width 13.9 % (11.0-16.0); White Blood Count 5.5 X10*3/uL (4.8-10.8)
[2023-09-07 09:59] LABS: Appearance Urine Turbid; Color Urine Yellow; Glucose Urine UA Negative (Negative); Leukocyte Esterase Urine Trace (Negative); Nitrite Urine Negative (Negative); PH 8.5 (5.0-9.0); UMIC TRIGGER UACC YES; Urine Blood Negative (Negative); Urine Ketones Negative (Negative); Urine Protein Trace mg/dL (Neg-Trace)
[2023-09-07 10:18] LABS: Alanine Aminotransferase 6 U/L (0-31); Albumin Level 4.6 g/dL (3.5-5.0); Alkaline Phosphatase 66 U/L (39-117); Anion Gap 12 (12-20); Aspartate Amino Transferase 13 U/L (5-31); Bilirubin Direct 0.1 mg/dL (0.0-0.5); Bilirubin Total 0.3 mg/dL (0.0-1.0); Blood Urea Nitrogen 13 mg/dL (9-16); Calcium 9.6 mg/dL (8.4-10.2); Carbon Dioxide 32 mmol/L (22-29); Chloride 101 mmol/L (96-108); Creatinine Clr Calc Pharmacy 81.3; Estimated Glomerular Filt Rate > 60; Glucose Random 91 mg/dL (60-115); Lipase 17 U/L (8-78); Potassium 4.2 mmol/L (3.3-5.1); Sodium 141 mmol/L (135-145); Total Protein 7.6 g/dL (6.5-8.0)
[2023-09-07 10:23] LABS: Bacteria Urine None Seen (None Seen); Hyaline Casts Urine 0-2 /LPF (0-2); RBC Urine 0-2 /HPF (0-2); WBC Urine 0-5 /HPF (0-5)
--- NOTE | 2023-09-07 10:37 | ED_ITS ---
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 She notes one prior SBO. She comes in today with c/o abdominal pain n/v and no gas or BM in 2 days. MD elicited complaint: abdominal pain Pertinent past history: other (SBO) Onset (ago): day(s) (1) Pain Consistency: constant Location: RLQ, LLQ and suprapubic Severity: severe Quality: sharp and dull Radiation: none Migration to: no migration Exacerbating factors: eating and movement Relieving factors: nothing Context: history of similar episodes Associated symptoms: nausea, vomiting and constipation Related Data Home Medications Medication Instructions Recorded Confirmed [facility] 08[facility]08[facility] Verio test strips) [facility] 08/08/23 Verio Meter) lancets 33 gauge ([employer] Delica 08/15/22 08/08/23 Lancets) triamcinolone acetonide 0.1 % 1 appl topical DAILY 02/07/23 08/08/23 topical cream zolpidem 10 mg tablet 10 mg PO BEDTIME PRN Insomnia 02/07/23 08/08/23 simethicone 80 mg chewable tablet 160 mg PO BID 08/07/23 08/08/23 (Gas Relief (simethicone)) ursodiol 300 mg capsule 300 mg PO BID 08/07/23 08/08/23 clonazepam 1 mg tablet 1 mg PO TID 08/08/23 08/08/23 Previous Rx's Medication Instructions Recorded BATH CHAIR #1 ea 01/31/22 CANE #1 ea 01/31/22 LIFELINE ALERT SYSTEM #1 ea 01/31/22 WRIST BRACE #1 ea 01/31/22 ALCOHOL PADS #100 ea 02/21/22 SHOWER BAR #1 ea 06/08/22 SHOWER WAND #1 ea 06/08/22 Bed pads #100 ea 07/17/22 Bedside commode #1 ea 07/17/22 SANITARY PADS #100 ea 07/17/22 food supplemt, lactose-reduced 0.1 1 ea PO TID #1,184 mL 01/29/23 gram-1.18 kcal/mL oral liquid (Ensure Complete) polyethylene glycol 3350 17 gram 17 g PO DAILY #14 ea 01/31/23 oral powder packet (Miralax) ondansetron 4 mg disintegrating 4 mg PO Q8H nausea and vomiting 03/03/23 tablet #20 tabs sumatriptan 5 mg/actuation nasal 5 mg intranasal Q2-4H PRN migraine 03/03/23 spray headache #6 ea Miracle Mouthwash-Alan 240 mL 15 ml PO BID #240 mL 03/16/23 liquid yxjgfdawd-aordmernd-hmmhbhnb-scop 5 ml PO BID PRN indigestion #50 mL 03/16/23 16.2 mg-0.1037 mg/5 mL (5 mL) elixir () prochlorperazine 25 mg rectal 25 mg KS Q12H PRN nausea and 03/16/23 suppository (Compro) vomiting #12 ea cyclobenzaprine 5 mg tablet 5 mg PO Q8H PRN pain (scale score 03/20/23 7-10) 5 days #14 tabs multivit-minerals no.73-iron 1 cap PO DAILY #30 caps 04/16/23 fumarate 106 mg-folic acid 1 mg capsule pantoprazole 40 mg tablet,delayed 40 mg PO BID 90 days #180 tabs 04/16/23 release acetaminophen 160 mg/5 mL oral 320 mg (10 mL) PO Q6H PRN fever or 05/23/23 liquid pain #473 mL ROLLATOR #1 ea 06/28/23 famotidine 20 mg tablet (Pepcid) 20 mg PO BID 10 days #20 tabs 07/18/23 aluminum-mag hydroxide-simethicone 5 ml PO 5XD PRN indigestion #355 mL 07/19/23 200 mg-200 mg-20 mg/5 mL oral susp (Maalox Advanced) simethicone 40 mg/0.6 mL oral 0.6 ml PO BID-TID PRN abdominal 08/02/23 drops,suspension distention #15 mL blood pressure monitor (Blood #1 ea 08/06/23 Pressure Kit) fluticasone propionate 50 1 spray intranasal DAILY #100 mL 08/08/23 mcg/actuation nasal spray,suspension (Flonase Allergy Relief) linaclotide 290 mcg capsule 290 mcg PO DAILY #30 caps 08/08/23 (Linzess) sucralfate 100 mg/mL oral 5 ml PO QID #1,000 mL 08/08/23 suspension (Carafate) tramadol 50 mg tablet 50 mg PO TID PRN pain 30 days #90 08/14/23 tabs Allergies Allergy/AdvReac Type Severity Reaction Status Date / Time hydrocodone [HYDROCODONE] Allergy Severe RASH, Verified 09/07/23 09:36 AIRWAY CLOSES ibuprofen [From MOTRIN] Allergy Intermediate STOMACH Verified 09/07/23 09:36 UPSET, vomiting trazodone [TRAZODONE] Allergy Intermediate stomach Verified 09/07/23 09:36 upset/anxiety tomato [TOMATO] Allergy Mild HIVES Verified 09/07/23 09:36 DIFFICULTY BREATHING egg Allergy Swelling Verified 09/07/23 09:36 black pepper [BLACK PEPPER] AdvReac Severe DIFFICULTY Verified 09/07/23 09:36 BREATHING, hives lisinopril AdvReac Severe Anaphylaxis Verified 09/07/23 09:36 Review of Systems Review of Systems Constitutional : No Weight loss, No Fever, No Chills ENT/Mouth : No sore throat, No Rhinorrhea Eyes: No Swelling, No Redness Cardiovascular : No Chest Pain, No SOB, NoEdema Respiratory : No Cough, No Sputum, No Wheezing Gastrointestinal : Positive Nausea, Positive Vomiting, no Diarrhea, positive abdominal Pain, No Hematochezia, No Melena Genitourinary : No Dysuria, No Urinary Frequency, No Hematuria, No Urgency Musculoskeletal : No joint pain, No Myalgias, No Joint Swelling Skin : No Skin Lesions, No rash Neuro : No Weakness, No Numbness, No Dizziness, No Headache Psych : No Anxiety/Panic, No Depression All other systems reviewed and are negative. [facility] Past Medical History Attestation statement: The following information was validated with the patient. 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 Spondylosis of lumbar spine Diverticulosis Insomnia Vitamin D deficiency GERD (gastroesophageal reflux disease) Carpal tunnel syndrome Hypercholesterolemia Renal calculi Hypertension Alcohol abuse Anxiety and depression Surgical History History of esophagogastroduodenoscopy (EGD) Hx of colonoscopy Hx of bariatric surgery History of tubal ligation H/O: hysterectomy Family History Family History (Updated 08/08/23 @ 11:26 by Deirdre Cantrell MD) Father Medical history unknown Mother Medical history unknown Paternal Aunt Uterine cancer Diabetes Hypertension Paternal Uncle Liver cancer Heart attack Lung cancer Maternal Aunt Stroke Family/Other Chronic mental illness Sister Uterine cancer Schizophrenia Brother Substance abuse Paternal Grandmother Lung cancer Other Mental health disorder Social History Social History Household Members: None Housing: Apartment Do you presently have visiting nurse or other home services: Yes Alcohol intake: never Patient Tobacco Use Status: Former Tobacco user Tobacco use type: Cigarette Smoked in Last 30 Days: Yes e-Cigarette/Vaping Use: Never Used Second Hand Smoke Exposure: No Use of substances other than those prescribed or required for medical reasons: No Substance Use Type: Marijuana Advance Directives: No Advance Directives Information Provided: No Patient : No service: No Current occupational status: disabled Current occupational exposures/hazards: No Cognitive needs: No Hearing needs: No Vision needs: Yes Physical Exam ED Vital Signs: Vital Signs - 24 hr 09/07/23 09:31 09/07/23 12:06 09/07/23 14:03 Temperature 97.4 F 98.5 F 97.9 F Pulse Rate 85 68 61 Respiratory Rate 22 H 16 16 Blood Pressure 145/115 H 151/91 H 123/78 Pulse Oximetry 100 98 98 Oxygen Delivery Method Room Air Room Air Room Air BMI result Body Mass Index 20.5 Appearance: Alert. Oriented X3. No acute distress. Eyes: Pupils equal, round and reactive to light. ENT: Pharynx normal. Neck: Normal inspection. Neck supple. CVS: Normal heart rate and rhythm. Pulses normal. Respiratory: No respiratory distress. Breath sounds normal. Abdomen: Soft and moderate lower abdominal ttp no distention Skin: Skin warm and dry. Normal skin color. Normal skin turgor. Extremities: No lower extremity edema. Neuro: Oriented X 3. No motor deficit. No sensory deficit. Course Course Course Narrative: message sent to Bacilio COHEN covering bariatrics as her story is not consistent with CT scan findigs. She is reporting she wants to eat and drink BS dropped to 47 has hx of hypoglycemia responded to IV dextrose. She is asking for more pain medications LFTs normal GB distended US ordered Reevaluation(s) Reevaluation #1: spoke to Bacilio Childress he recommends we call Dr. Driscoll given her complaints and she just had procedure 07/27 will send message Reevaluation #2: PATIENT IS COMPLETELY CHANGING HER STORY NOW STATES 5 DAYS OF LOOSE STOOLS UP TO 6 PER DAY AFTER DISCUSSING CT SCAN RESULTS. SHE IS NOT VOMITING SHE IS DRINKING FLUIDS. repeat call out to Dr. Driscoll Reevaluation #3: pending US the patient could likely go home there is no obstructive process she is drinking water likely enterocolitis now she provides a history consistent with that. Dr. 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 Differential Diagnosis Differential Diagnoses: The differential diagnosis associated with the presentation includes SBO, gastritis, UTI, diverticulitis, colitis, constipation Admission/Observation Consideration of admission/observation: Escalation of care including admission/observation considered signed out to Dr. Ragsdale pending US and call back from Dr. Driscoll Lab Data [facility] Lab Attestation statement: I reviewed the patient's lab results. 09/07/23 09:44 09/07/23 09:44 Labs: Lab Results 09/07/23 09/07/23 09/07/23 Range/Units 09:44 09:49 13:20 WBC 5.5 (4.8-10.8) X10*3/uL RBC 4.68 (4.20-5.50) X10*6/uL Hgb 13.8 (12.0-16.0) g/dl Hct 42.3 (37.0-47.0) % MCV 90.4 (80.0-98.0) fL MCH 29.5 (27.0-33.0) pg MCHC 32.6 (31.0-35.0) g/dl RDW 13.9 (11.0-16.0) % Plt Count 355 (160-400) X10*3/uL MPV 9.8 (9.4-12.3) fL Immature Gran % (Auto) 0.4 (0.0-0.4) % Neut % (Auto) 56.6 (45-73) % Lymph % (Auto) 30.9 (20-40) % [place] % (Auto) 9.0 (2-11) % Eos % (Auto) 1.8 (0-4) % Baso % (Auto) 1.3 (0-2) % Lymph # (Auto) 1.7 (1.2-4.9) X10*3/uL [place] # (Auto) 0.5 (0.1-1.2) X10*3/uL Eos # (Auto) 0.1 (0.0-0.4) X10*3/uL Baso # (Auto) 0.1 (0.0-0.2) X10*3/uL Abs Immat Gran (auto) 0.02 (0.00-0.03) X10*3/uL Absolute Neuts (auto) 3.1 (2.0-8.3) x10*3/uL Absolute Nucleated RBC 0.000 (0.0-0.012) X10*3/uL Nucleated RBC % (auto) 0.0 (0.0-0.2) /100WBC Sodium 141 (135-145) mmol/L Potassium 4.2 (3.3-5.1) mmol/L Chloride 101 (96-108) mmol/L Carbon Dioxide 32 H (22-29) mmol/L Anion Gap 12 (12-20) BUN 13 (9-16) mg/dL Creatinine 0.68 (0.5-1.4) mg/dL Estim Creat Clear Calc 81.3 Estimated GFR > 60 POC Glucose 47 L* (60-115) mg/dL Random Glucose 91 (60-115) mg/dL Calcium 9.6 (8.4-10.2) mg/dL Magnesium 2.0 (1.6-2.6) mg/dL Total Bilirubin 0.3 (0.0-1.0) mg/dL Direct Bilirubin 0.1 (0.0-0.5) mg/dL AST 13 (5-31) U/L ALT 6 (0-31) U/L Alkaline Phosphatase 66 (39-117) U/L Total Protein 7.6 (6.5-8.0) g/dL Albumin 4.6 (3.5-5.0) g/dL Lipase 17 (8-78) U/L Urine Color Yellow Urine Appearance Turbid Urine pH 8.5 (5.0-9.0) Ur Specific Venus 1.020 (1.005-1.025) Urine Protein Trace (Neg-Trace) mg/dL Urine Glucose (UA) Negative (Negative) mg/dL Urine Ketones Negative (Negative) mg/dL Urine Blood Negative (Negative) Urine Nitrite Negative (Negative) Ur Leukocyte Esterase Trace H (Negative) Urine RBC 0-2 (0-2) /HPF Urine WBC 0-5 (0-5) /HPF Ur Squamous Epith Cells 3-5 (0-2) /HPF Urine Bacteria None Seen (None Seen) Hyaline Casts 0-2 (0-2) /LPF Ethyl Alcohol < 10 mg/dL 09/07/23 Range/Units 14:03 WBC (4.8-10.8) X10*3/uL RBC (4.20-5.50) X10*6/uL Hgb (12.0-16.0) g/dl Hct (37.0-47.0) % MCV (80.0-98.0) fL MCH (27.0-33.0) pg MCHC (31.0-35.0) g/dl RDW (11.0-16.0) % Plt Count (160-400) X10*3/uL MPV (9.4-12.3) fL Immature Gran % (Auto) (0.0-0.4) % Neut % (Auto) (45-73) % Lymph % (Auto) (20-40) % [place] % (Auto) (2-11) % Eos % (Auto) (0-4) % Baso % (Auto) (0-2) % Lymph # (Auto) (1.2-4.9) X10*3/uL [place] # (Auto) (0.1-1.2) X10*3/uL Eos # (Auto) (0.0-0.4) X10*3/uL Baso # (Auto) (0.0-0.2) X10*3/uL Abs Immat Gran (auto) (0.00-0.03) X10*3/uL Absolute Neuts (auto) (2.0-8.3) x10*3/uL Absolute Nucleated RBC (0.0-0.012) X10*3/uL Nucleated RBC % (auto) (0.0-0.2) /100WBC Sodium (135-145) mmol/L Potassium (3.3-5.1) mmol/L Chloride (96-108) mmol/L Carbon Dioxide (22-29) mmol/L Anion Gap (12-20) BUN (9-16) mg/dL Creatinine (0.5-1.4) mg/dL Estim Creat Clear Calc Estimated GFR POC Glucose 146 H (60-115) mg/dL Random Glucose (60-115) mg/dL Calcium (8.4-10.2) mg/dL Magnesium (1.6-2.6) mg/dL Total Bilirubin (0.0-1.0) mg/dL Direct Bilirubin (0.0-0.5) mg/dL AST (5-31) U/L ALT (0-31) U/L Alkaline Phosphatase (39-117) U/L Total Protein (6.5-8.0) g/dL Albumin (3.5-5.0) g/dL Lipase (8-78) U/L Urine Color Urine Appearance Urine pH (5.0-9.0) Ur Specific Venus (1.005-1.025) Urine Protein (Neg-Trace) mg/dL Urine Glucose (UA) (Negative) mg/dL Urine Ketones (Negative) mg/dL Urine Blood (Negative) Urine Nitrite (Negative) Ur Leukocyte Esterase (Negative) Urine RBC (0-2) /HPF Urine WBC (0-5) /HPF Ur Squamous Epith Cells (0-2) /HPF Urine Bacteria (None Seen) Hyaline Casts (0-2) /LPF Ethyl Alcohol mg/dL Independent Interpretation I performed an independent interpretation of an: CT Scan (enterocolitis) Radiology Impression Discussion of test interpretation with radiology: I have reviewed the radiologist's reading. External Record Review External record reviewed: Inpatient record Medications Administered Discontinued Medications Generic Name Dose Route Start Last Admin Trade Name Freq PRN Reason Stop Dose Admin Dextrose 25 gm 09/07/23 13:21 09/07/23 13:23 Dextrose 50 % 25 Gm/50 Ml Syringe IVPUSH 09/07/23 13:22 25 gm ONCE ONE Administration Sodium Chloride 1,000 mls @ 999 mls/hr 09/07/23 11:15 09/07/23 13:18 Ns IV 09/07/23 12:15 Infused .Q1H1M OSBALDO Infusion Iohexol 85 ml 09/07/23 13:00 09/07/23 13:02 Iohexol 350 Mg/Ml 100 Ml Infus..Btl IV 09/07/23 13:01 85 ml ONCE ONE Administration Morphine Sulfate 6 mg 09/07/23 11:08 09/07/23 12:08 Morphine Sulfate 10 Mg/Ml Cartridge IVPUSH 09/07/23 11:09 6 mg ONCE ONE Administration Protocol Ondansetron HCl 4 mg 09/07/23 11:08 09/07/23 12:08 Ondansetron Hcl 4 Mg/2 Ml Vial IVPUSH 09/07/23 11:09 4 mg ONCE ONE Administration Discharge Plan Discharge Clinical Impression: Hypoglycemia after GI (gastrointestinal) surgery, Enterocolitis Abdominal pain Qualifiers: Abdominal location: lower abdomen, unspecified Qualified Code(s): R10.30 - Lower abdominal pain, unspecified Patient Disposition: Still a Patient Instructions: Abdominal Pain (ED), Acute Nausea and Vomiting (ED), Colitis (ED), Non-diabetic Hypoglycemia (ED) Additional Instructions: eat a bland diet and advance slowly over two days. return for fevers, inability to eat or drink, inability to have a bowel movement for 24 hours, abdominal distention. you need to call and follow up with your surgeon as soon as possible. llevar dylan dieta blanda y avanzar lentamente a lo davion de dos d?as. regresa por fiebre, incapacidad para comer o beber, incapacidad para defecar adelina 24 horas, distensi?n abdominal. debe llamar y hacer un seguimiento con barnard cirujano lo antes posible. Prescriptions: No Action (DME) CANE See Rx Instructions .Route .MEDSUPPLY Qty: 1 0RF Rx Instructions: As directed (DME) WRIST BRACE See Rx Instructions .Route .MEDSUPPLY Qty: 1 0RF Rx Instructions: As directed (DME) BATH CHAIR See Rx Instructions .Route .MEDSUPPLY Qty: 1 0RF Rx Instructions: As directed (DME) LIFELINE ALERT SYSTEM See Rx Instructions .Route .MEDSUPPLY Qty: 1 0RF Rx Instructions: As directed (DME) ALCOHOL PADS See Rx Instructions .Route .MEDSUPPLY Qty: 100 3RF Rx Instructions: As directed (DME) SHOWER WAND See Rx Instructions .Route .MEDSUPPLY Qty: 1 0RF Rx Instructions: As directed (DME) SHOWER BAR See Rx Instructions .Route .MEDSUPPLY Qty: 1 0RF Rx Instructions: As directed (DME) Bedside commode See Rx Instructions .Route .MEDSUPPLY Qty: 1 0RF Rx Instructions: As directed (DME) Bed pads See Rx Instructions .Route .MEDSUPPLY Qty: 100 12RF Rx Instructions: As directed (DME) SANITARY PADS See Rx Instructions .Route .MEDSUPPLY Qty: 100 12RF Rx Instructions: As directed Ensure Complete 0.1 gram-1.18 kcal/mL liquid 1 ea PO TID Qty: 1184 12RF polyethylene glycol 3350 [Miralax] 17 gram powder in packet 17 g PO DAILY Qty: 14 3RF Rx Instructions: Use daily until you have a normal bowel movement, then stop. (DME) ROLLATOR See Rx Instructions .Route .MEDSUPPLY Qty: 1 0RF Rx Instructions: As directed alum-mag hydroxide-simeth [Maalox Advanced] 200-200-20 mg/5 mL suspension 5 ml PO 5XD PRN (Reason: indigestion) Qty: 355 4RF Rx Instructions: administer between meals and at bedtime simethicone 40 mg/0.6 mL drops,suspension 0.6 ml PO BID-TID PRN (Reason: abdominal distention) Qty: 15 0RF (DME) blood pressure monitor [Blood Pressure Kit] Kit See Rx Instructions .Route Qty: 1 0RF Rx Instructions: As directed tramadol 50 mg tablet 50 mg PO TID PRN (Reason: pain) 30 Days Qty: 90 0RF ondansetron 4 mg tablet,disintegrating 4 mg PO Q8H Qty: 20 0RF sumatriptan 5 mg/actuation spray,non-aerosol 5 mg intranasal Q2-4H PRN (Reason: migraine headache) Qty: 6 1RF Rx Instructions: into each nostril once; if headache remains, may repeat total dose once after at least 2 hours cyclobenzaprine 5 mg tablet 5 mg PO Q8H PRN (Reason: pain (scale score 7-10)) 5 Days Qty: 14 0RF famotidine [Pepcid] 20 mg tablet 20 mg PO BID 10 Days Qty: 20 0RF prochlorperazine [Compro] 25 mg suppository 25 mg KS Q12H PRN (Reason: nausea and vomiting) Qty: 12 0RF Miracle Mouthwash-Alan 240 mL liquid 15 ml PO BID Qty: 240 0RF Rx Instructions: Nystatin susp 80 mL;Lidocaine 2% Visc 80 mL; Maalox 80 mL; Swish and spit obgwjbefu-xivoqz-mwylbnep-scop [] 16.2 mg-0.1037 mg/5 mL (5 mL) elixir 5 ml PO BID PRN (Reason: indigestion) Qty: 50 0RF acetaminophen 160 mg/5 mL liquid 320 mg PO Q6H PRN (Reason: fever or pain) Qty: 473 0RF mv-mins no.73-iron fum-folic 106 mg iron- 1 mg capsule 1 cap PO DAILY Qty: 30 4RF pantoprazole 40 mg tablet,delayed release (DR/EC) 40 mg PO BID 90 Days Qty: 180 1RF clonazepam 1 mg tablet 1 mg PO TID fluticasone propionate [Flonase Allergy Relief] 50 mcg/actuation spray,suspension 1 spray intranasal DAILY Qty: 100 0RF Rx Instructions: administer into each nostril sucralfate [Carafate] 100 mg/mL suspension 5 ml PO QID Qty: 1000 0RF Rx Instructions: swish in mouth and swallow; use after food/drink Linzess 290 mcg capsule 290 mcg PO DAILY Qty: 30 1RF (DME) blood-glucose meter [OneTouch Verio Meter] Misc See Rx Instructions .Route Rx Instructions: As directed (DME) OneTouch Verio test strips Strip See Rx Instructions .Route Rx Instructions: As directed 3 times a day (DME) lancets [OneTouch [employer]ica Lancets] 33 gauge misc See Rx Instructions .Route Rx Instructions: As directed 3 times a day zolpidem 10 mg tablet 10 mg PO BEDTIME PRN (Reason: Insomnia) triamcinolone acetonide 0.1 % cream 1 appl topical DAILY ursodiol 300 mg capsule 300 mg PO BID simethicone [Gas Relief (simethicone)] 80 mg tablet,chewable 160 mg PO BID Print Language: Ethiopian
[2023-09-07 11:24] LABS: Ethanol < 10 mg/dL
[2023-09-07 12:06] VITALS: BP 151/91; PULSE 68; RESP 16; TEMP 36.9; O2SAT 98
[2023-09-07] MEDS: ondansetron HCL 4 MG/2 ML VIAL IVPUSH (12:08)
[2023-09-07] MEDS: Morphine Sulfate 10 MG/ML CARTRIDGE 6 MG IVPUSH (12:08)
[2023-09-07] MEDS: 0.9 % Sodium Chloride 1,000 ML 999 ML IV (12:09)
[2023-09-07] MEDS: iohexoL 350 MG/ML 100 ML INFUS..BTL 85 ML IV (13:02)
[2023-09-07] MEDS: Dextrose 50 % 25 GM/50 ML SYRINGE IVPUSH (13:23)
[2023-09-07 13:24] LABS: Glucose, Whole Blood 47 mg/dL (60-115)
[2023-09-07 14:03] VITALS: BP 123/78; PULSE 61; RESP 16; TEMP 36.6; O2SAT 98
[2023-09-07 14:08] LABS: Glucose, Whole Blood 146 mg/dL (60-115)
== END 2023-09-07 17:46 | disposition home or self-care (01) ==
PROVIDERS: Emergency Medicine; Emergency Provider Student in an Organized Health Care Education/Training Program; PCP Internal Medicine
DX: E11.649 Type 2 diabetes mellitus with hypoglycemia without coma (principal); K52.9 Noninfective gastroenteritis and colitis, unspecified; R11.2 Nausea with vomiting, unspecified; R10.30 Lower abdominal pain, unspecified; I10 Essential (primary) hypertension; E78.00 Pure hypercholesterolemia, unspecified; Z90.3 Acquired absence of stomach [part of]; Z90.710 Acquired absence of both cervix and uterus; Z79.899 Other long term (current) drug therapy
CPT/HCPCS: 36415; 74177; 76705; 80048; 80076; 80307; 81001; 82947; 83690; 83735; 85025; 96361; 96374; 96375; 99284; J2270; J2405; Q9967

== ENCOUNTER 2023-10-02 09:10 | Outpatient (REF) | payer OTHER, SELFPAY ==
[2023-10-02 10:04] LABS: Basophils Percent Auto 1.1 % (0-2); Eosinophils Absolute Auto 0.1 X10*3/uL (0.0-0.4); Hematocrit 38.8 % (37.0-47.0); Hemoglobin 12.5 g/dl (12.0-16.0); Lymphocytes Absolute Auto 1.3 X10*3/uL (1.2-4.9); Lymphocytes Percent Auto 48.7 % (20-40); MANUAL DIFF FLAG SCAN; Mean Corpuscular HGB Conc 32.2 g/dl (31.0-35.0); Mean Corpuscular Hemoglobin 28.8 pg (27.0-33.0); Mean Corpuscular Volume 89.4 fL (80.0-98.0); Mean Platelet Volume 9.9 fL (9.4-12.3); Monocytes Absolute Auto 0.3 X10*3/uL (0.1-1.2); Monocytes Percent Auto 11.4 % (2-11); Neutrophils Absolute Auto 0.9 x10*3/uL (2.0-8.3); Neutrophils Percent Auto 35.8 % (45-73); Platelet Count 281 X10*3/uL (160-400); Red Blood Count 4.34 X10*6/uL (4.20-5.50); Red Cell Distribution Width 14.1 % (11.0-16.0); SCAN SMEAR FLAG 1; White Blood Count 2.6 X10*3/uL (4.8-10.8)
[2023-10-02 10:11] LABS: Estimated Average Glucose 85 mg/dL; Hemoglobin A1c % 4.6 % (<6.0)
[2023-10-02 10:42] LABS: Alanine Aminotransferase 7 U/L (0-31); Albumin Level 4.4 g/dL (3.5-5.0); Alkaline Phosphatase 64 U/L (39-117); Anion Gap 12 (12-20); Aspartate Amino Transferase 15 U/L (5-31); Bilirubin Total 0.6 mg/dL (0.0-1.0); Blood Urea Nitrogen 14 mg/dL (9-16); Calcium 9.5 mg/dL (8.4-10.2); Carbon Dioxide 29 mmol/L (22-29); Chloride 103 mmol/L (96-108); Estimated Glomerular Filt Rate > 60; Glucose Random 85 mg/dL (60-115); Magnesium 2.2 mg/dL (1.6-2.6); Potassium 3.9 mmol/L (3.3-5.1); Sodium 140 mmol/L (135-145); Total Protein 7.2 g/dL (6.5-8.0)
[2023-10-02 10:59] LABS: Free T4 (Free Thyroxine) 1.06 ng/dL (0.71-1.85); Thyroid Stimulating Hormone 0.98 uIU/mL (0.32-4.0)
[2023-10-02 11:14] LABS: Folate 17.4 ng/mL (> or = 4.0); Vitamin B12 333 pg/mL (200-900)
[2023-10-02 12:38] LABS: SLIDE REVIEW VERIFIED
[2023-10-08 12:38] LABS: Vitamin B1 15 nmol/L (8-30)
== END 2023-10-02 09:11 | disposition home or self-care (01) ==
LOC: HO.LAB 09:10
PROVIDERS: PCP Internal Medicine; Visit Provider Internal Medicine
DX: E11.65 Type 2 diabetes mellitus with hyperglycemia (principal); Z90.3 Acquired absence of stomach [part of]
CPT/HCPCS: 36415; 80053; 82607; 82746; 83036; 83735; 84425; 84439; 84443; 85025

== ENCOUNTER 2023-10-03 13:12 | Outpatient (AMB) | payer OTHER, SELFPAY ==
--- NOTE | 2023-10-03 13:15 | A.OFFVIS_ITS ---
Intake Vital Signs 10/03/23 13:16 Height 5 ft 1 in Weight 105 lb 13.15 oz BMI 20.0 BP 150/75 H Blood Pressure Location Lt brachial Position Sitting Pulse 71 Intake Visit Reasons: pt req follow up Intake Note: Tye presents in the office as a follow up. CC: She states that she is feeling okay no concerns at this time. Allergies hydrocodone [HYDROCODONE] Allergy (Severe, Verified 10/03/23 13:23) RASH, AIRWAY CLOSES ibuprofen [From MOTRIN] Allergy (Intermediate, Verified 10/03/23 13:23) STOMACH UPSET, vomiting trazodone [TRAZODONE] Allergy (Intermediate, Verified 10/03/23 13:23) stomach upset/anxiety tomato [TOMATO] Allergy (Mild, Verified 10/03/23 13:23) HIVES DIFFICULTY BREATHING egg Allergy (Verified 10/03/23 13:23) Swelling black pepper [BLACK PEPPER] Adverse Reaction (Severe, Verified 10/03/23 13:23) DIFFICULTY BREATHING, hives lisinopril Adverse Reaction (Severe, Verified 10/03/23 13:23) Anaphylaxis HPI HPI Comments History of Present Illness Details 42 y.o F with PMH of sleeve gastrectomy in 09/2021 (Dr Driscoll), hx of reflux and esophagitis PRE-gastrectomy, who is here for difficulty and painful swallowing. Pt reports that she has had intermittent heartburn for at least 5 years now. Has had [place] in 2018 and [place] [place] This was previously controlled by avoiding food triggers and taking PPI. However after her SG, starting November 2021, she started noticing sensation of food getting stuck and re gurgitation which got worse with time. Her heartburn also got aggravated where it would not respond to once daily dosing of PPI. She was seen by Dr Driscoll for follow up who recommended increasing PPI and reportedly to consider a feeding tube? Records not available from his consultation. Pt has also now been following up with Bariatric surg at [facility] since October of this year. She has had at least 2 EGDs this month (Aug 2022 Dr Jennifer OSCAR and November 2022 Dr Multani) both demonstrating significant esophagitis as well as a mild esophageal stricture and narrowing of the sleeve. Pt reports losing 90 lbs since the surgery. However, notes that it has slowed down in the past 2 months since starting ensure and notices heartburn has improved a bit since increasing the PPI and adding carafate and maalox as outlined by Bariatric PA. UGIS 01/26/23: FINDINGS: There is severe gastroesophageal reflux. There is mucosal irregularity of the mid and distal esophagus suggestive of esophagitis. There is a moderate stricture of the distal thoracic esophagus. This appears increased from July 2022. 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 This is similar to previous exam. The stomach is otherwise normal. There is fold thickening or bubbly bulb appearance to the duodenal bulb. This can be seen with hyperacidity. 03/07/23: EGD Findings:? * Esophagus:? Grade C esophagitis from 33-35 cm associated with mild narrowing of lumen which could be easily traversed with the gastroscope. A small esophageal ulcer was noted at the GE junction at 35 cm which was spontaneously oozing. * Stomach:? Evidence of sleeve gastrectomy with tubular stomach which did not allow for retroflexion. 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 This was treated with argon plasma coagulation with adequate hemostasis. * Duodenum:? Normal mucosa was noted in the whole of the examined duodenum. Additional intervention: A through the scope balloon dilator was advanced to the GE junction and the esophagus was gradually dilated from 12 to 15 mm. A resolution 360 clip was then placed on the oozing esophageal ulcer and then further sprayed with hemospray. 03/23/23: Has been able to eat better since dilation. Was also happy to hear that esophagitis has improved from LA grade D to LA grade C. Current meds: Carafate QID Maalox QID Pantoprazole 40 BID Was seen by Dr Driscoll last week and has initiated discussion for bypass surgery. Getting prelim work up done this month. 05/17/23: EGD: * Grade D esophagitis * Tubular stomach s/p sleeve gastrectomy * Antral gastritis * Normal duodenum?? Recommendations:?? * Improvement in esophagitis and gastritis/GAVE compared to previous endoscopic evaluation in 02/2023. * Cont PPI + H2 eldon + carafate * Stay upright for meals and 1h post meals. * Pt following up with Dr Driscoll with plan for RYGB in June per her report. 10/03/23: Comes in for follow up after RYGB in Jun 2023. Reports excellent response to abd pain and chest pain since the surgery. Follows with Dr Driscoll and Radha COHEN. Reports persistent difficulty with solids and regurgitation and has been advised to follow up with us. In addition also reports worsening diarrhea since her surgery. REPLACED BY [facility] Medical History Type 2 diabetes mellitus with hyperglycemia Vision changes Gastritis Tongue sore Right ear pain Numbness of left hand History of bipolar disorder History of schizophrenia 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 Spondylosis of lumbar spine Diverticulosis Insomnia Vitamin D deficiency GERD (gastroesophageal reflux disease) Carpal tunnel syndrome Hypercholesterolemia Renal calculi Hypertension Alcohol abuse Anxiety and depression Surgical History History of esophagogastroduodenoscopy (EGD) Hx of colonoscopy Hx of bariatric surgery History of tubal ligation H/O: hysterectomy Family History Father Medical history unknown Mother Medical history unknown Paternal Aunt Uterine cancer Diabetes Hypertension Paternal Uncle Liver cancer Heart attack Lung cancer Maternal Aunt Stroke Family/Other Chronic mental illness Sister Uterine cancer Schizophrenia Brother Substance abuse Paternal Grandmother Lung cancer Other Mental health disorder Social History Household Members: None Housing: Apartment Do you presently have visiting nurse or other home services: Yes Alcohol intake: never Patient Tobacco Use Status: Former Tobacco user Tobacco use type: Cigarette e-Cigarette/Vaping Use: Never Used Second Hand Smoke Exposure: No Substance Use Type: Marijuana service: No Current occupational status: disabled Current occupational exposures/hazards: No Cognitive needs: No Hearing needs: No Vision needs: Yes Female Reproductive History Menstrual Age of Menarche: 11 Review of Systems Const All systems reviewed & are unremarkable except as noted in HPI and below Physical Exam Vital Signs: Last Vital Signs Pulse 71 10/03/23 13:16 BP 150/75 H 10/03/23 13:16 BMI result Body Mass Index 20.0 Gen appear: NAD HEENT: nonicteric Chest: CTA CVS: Regular S1/S2 Abd: soft, nontender, nondistended, bowel sounds + Ext: no peripheral edema Neuro: A/Ox3, noted to move all extremities spontaneously Psych: interacting appropriately Assessment & Plan Assessment & Plan (1) Esophageal stricture: Code(s): K22.2 - Esophageal obstruction (2) Dysphagia: Code(s): R13.10 - Dysphagia, unspecified (3) GERD (gastroesophageal reflux disease): Code(s): K21.9 - Gastro-esophageal reflux disease without esophagitis (4) Esophagitis: Code(s): K20.90 - Esophagitis, unspecified without bleeding (5) Diarrhea: Code(s): R19.7 - Diarrhea, unspecified Plan Has been doing very well since her revision to RYGB. Here to follow up for persistent dysphagia. Suspect may have benign eso stricture from reflux esophagitis. In terms of worsening diarrhea - educated that expected after RYGB from malabsorption. Other ddx include SIBO, dumping syndrome, BAM etc. [place] biopsies from 2019 were negative. Plan: - Barium swallow - Cont PPI therapy - EGD with dil and colo to be set up in 6-8 weeks - Due to hx of RYGB, will Rx small volume prep such as suprep - Follow up after endo Orders: Orders [place] barium swallow Today R13.10 - Dysphagia, unspecified Medications: New sodium,potassium,mag sulfates 17.5-3.13-1.6 gram (Suprep Bowel Prep Kit) As per instructions from GI office 354 mL 0RF Coding Level of Care Code Est Pt Level 4 (42858) Diagnoses Esophageal stricture K22.2 Dysphagia R13.10 Gastroesophageal reflux disease without esophagitis K21.9 Esophagitis K20.90 Diarrhea R19.7
[2023-10-03 13:16] VITALS: BP 150/75; PULSE 71
== END 2023-10-03 14:13 | disposition home or self-care (01) ==
PROVIDERS: PCP Internal Medicine; Visit Provider Internal Medicine
DX: K22.2 Esophageal obstruction (principal); R13.10 Dysphagia, unspecified; K21.9 Gastro-esophageal reflux disease without esophagitis; K20.90 Esophagitis, unspecified without bleeding; R19.7 Diarrhea, unspecified
CPT/HCPCS: 99214

== ENCOUNTER → 2023-10-03 13:12 | Outpatient (BNVA) | payer OTHER, SELFPAY | PROVIDERS: PCP Internal Medicine; Visit Provider Internal Medicine | DX: K22.2 Esophageal obstruction (principal); K21.9 Gastro-esophageal reflux disease without esophagitis; K20.90 Esophagitis, unspecified without bleeding; R13.10 Dysphagia, unspecified; R19.7 Diarrhea, unspecified | CPT/HCPCS: 99212 ==

== ENCOUNTER 2023-10-21 06:49 | Emergency (ER) | payer OTHER, SELFPAY ==
--- NOTE | ~2023-10-21 | CT_ITS ---
EXAMINATION: CT ABDOMEN AND PELVIS WITH CONTRAST CLINICAL INFORMATION: Status post sleeve gastrectomy. Abdominal pain and nausea. COMPARISON: 09/07/2023 TECHNIQUE: Multidetector volumetric images were obtained from the superior aspect of the liver through the pubic symphysis following administration 85 mL of Omnipaque 350 intravenous contrast. Sagittal and coronal reformatted images were obtained on the technologist's workstation. Oral contrast: Yes This CT examination was performed using dose optimization techniques as appropriate, variously including the following: *Automated exposure control *Adjustment of mA and/or kV according to patient size (this includes techniques or standardized protocols for targeted exams where dose is matched to indication/reason for exam; i.e. extremities or head) *Use of iterative reconstruction technique DLP: 299 mGy-cm FINDINGS: LUNG BASES: No pulmonary consolidation or pleural effusion. HEPATOBILIARY: Several small cysts are present in the liver. No new hepatic findings. Gallbladder is physiologically distended and has normal wall thickness. No pericholecystic fluid. No dilated bile ducts. PANCREAS: No edema, pancreatic ductal dilatation or mass. SPLEEN: Normal. ADRENAL GLANDS: Normal. KIDNEYS AND URETERS: Kidneys have normal size and cortical thickness. No perinephric fluid collection, urolithiasis or hydroureteronephrosis. BLADDER: No evidence of bladder mass or stone. Although there appears to be mild circumferential thickening of the bladder wall, the bladder is underdistended and there is no perivesical edema. BOWEL AND PERITONEUM: The visualized distal esophagus is mildly distended with gas and has normal wall thickness. No hiatal hernia. Surgical changes of Luis Enrique-en-Y gastric bypass. No dilated loops of bowel. No edematous thickening of bowel or hyperenhancing mucosa. No mesenteric fat stranding, free fluid or pneumoperitoneum. The appendix is normal. There are diverticula of the sigmoid colon without diverticulitis. ABDOMINAL WALL: No abdominal wall fluid collection or hernia. There is linear opacity from mild postoperative scarring in subcutaneous tissue of the right abdominal wall. VASCULATURE: Unremarkable. LYMPH NODES: No pathologic sized lymph nodes in the abdomen or pelvis. No inguinal lymphadenopathy. PELVIC VISCERA: Status post hysterectomy. No adnexal mass or pelvic fluid collection. The largest follicle of the left ovary is 1.8 cm AP. MUSCULOSKELETAL: Mild levocurvature of the lumbar spine. Degenerative endplate sclerosis and Schmorl's node at inferior endplate of L5. No suspicious osseous lesions. CT/CT abdomen pelvis w IV con IMPRESSION: * No acute imaging abnormalities in the abdomen or pelvis. * No evidence of inflammatory change or obstruction along the gastrointestinal tract. Diverticula of the sigmoid colon without evidence of diverticulitis. * Although the bladder wall appears to be slightly thickened, the bladder is underdistended and not optimally evaluated. If there is any clinical suspicion for cystitis, then consider correlation with urinalysis
[2023-10-21 07:03] VITALS: BP 132/82; BP 153/86; PULSE 72; PULSE 96; RESP 18; TEMP 36.8; O2SAT 95; BMI 22.6
[2023-10-21 07:08] VITALS: BP 153/86; PULSE 80; RESP 18; TEMP 36.8
--- NOTE | 2023-10-21 07:15 | PC.NURSE ---
Pt is coming from home via EMS. Pt reports ABD pain epigastric radiating to RUQ and downward, describes at burning and stabbing, 10/10. Pt also reports nausea/vomiting, increase in burping and also noticed some blood in her urine yesterday. Pt reports she took maalox a few hours ago with little relief. Pt has hx of gastric bypass 2 years ago with correction surgery in June of 2023 (all through [facility]). Pt is alert and oriented, breathing even and unlabored, skin warm and dry. Pt noted to have frequent episodes of burping. Pt guarding abdomen, not noted to be distended. Pt reports pain and nausea is making her uncomfortable at this time.
--- NOTE | 2023-10-21 07:39 | ED.ABDPAIN ---
HPI - Abdominal Pain General Chief Complaint: Abdominal Pain Stated Complaint: abd pain Time Seen by Provider: 10/21/23 07:15 Source: patient Mode of arrival: ambulatory Limitations: no limitations History of Present Illness HPI narrative: [age] year female PMH anemia, dysphagia, sufficiency anxiety, GERD, HTN, HLD, s/p sleeve gastrectomy 2 years ago with revision ( Luis Enrique-en-Y laparoscopic likely) 4 month [address] Driscoll, patient had an episode of SBO in the past came in today with few hours of mid abdominal pain feels like cramps, associated with nausea, patient had a bowel movement which described as loose stool, patient also been having worsening the acid reflux. No fever, no chills, no exposure to bad food, no exposure to sick contacts. No dysuria, no frequency urination. No vaginal bleed or discharge. Related Data Home Medications Medication Instructions Recorded Confirmed blood sugar diagnostic ([employer] 08/15/22 08/08/23 Verio test strips) blood-glucose meter ([employer] 08/15/22 08/08/23 Verio Meter) lancets 33 gauge (OneTouch Delica 08/15/22 08/08/23 Lancets) triamcinolone acetonide 0.1 % 1 appl topical DAILY 02/07/23 08/08/23 topical cream zolpidem 10 mg tablet 10 mg PO BEDTIME PRN Insomnia 02/07/23 08/08/23 simethicone 80 mg chewable tablet 160 mg PO BID 08/07/23 08/08/23 (Gas Relief (simethicone)) ursodiol 300 mg capsule 300 mg PO BID 08/07/23 08/08/23 clonazepam 1 mg tablet 1 mg PO TID 08/08/23 08/08/23 Previous Rx's Medication Instructions Recorded BATH CHAIR #1 ea 01/31/22 CANE #1 ea 01/31/22 LIFELINE ALERT SYSTEM #1 ea 01/31/22 WRIST BRACE #1 ea 01/31/22 ALCOHOL PADS #100 ea 02/21/22 SHOWER BAR #1 ea 06/08/22 SHOWER WAND #1 ea 06/08/22 Bed pads #100 ea 07/17/22 Bedside commode #1 ea 07/17/22 SANITARY PADS #100 ea 07/17/22 food supplemt, lactose-reduced 0.1 1 ea PO TID #1,184 mL 01/29/23 gram-1.18 kcal/mL oral liquid (Ensure Complete) polyethylene glycol 3350 17 gram 17 g PO DAILY #14 ea 01/31/23 oral powder packet (Miralax) ondansetron 4 mg disintegrating 4 mg PO Q8H nausea and vomiting 03/03/23 tablet #20 tabs sumatriptan 5 mg/actuation nasal 5 mg intranasal Q2-4H PRN migraine 03/03/23 spray headache #6 ea Miracle Mouthwash-Alan 240 mL 15 ml PO BID #240 mL 03/16/23 liquid khhrigldm-hrdthmswf-xtjcdnqh-scop 5 ml PO BID PRN indigestion #50 mL 03/16/23 16.2 mg-0.1037 mg/5 mL (5 mL) elixir () prochlorperazine 25 mg rectal 25 mg [place] Q12H PRN nausea and 03/16/23 suppository (Compro) vomiting #12 ea cyclobenzaprine 5 mg tablet 5 mg PO Q8H PRN pain (scale score 03/20/23 7-10) 5 days #14 tabs multivit-minerals no.73-iron 1 cap PO DAILY #30 caps 04/16/23 fumarate 106 mg-folic acid 1 mg capsule acetaminophen 160 mg/5 mL oral 320 mg (10 mL) PO Q6H PRN fever or 05/23/23 liquid pain #473 mL ROLLATOR #1 ea 06/28/23 famotidine 20 mg tablet (Pepcid) 20 mg PO BID 10 days #20 tabs 07/18/23 simethicone 40 mg/0.6 mL oral 0.6 ml PO BID-TID PRN abdominal 08/02/23 drops,suspension distention #15 mL blood pressure monitor (Blood #1 ea 08/06/23 Pressure Kit) fluticasone propionate 50 1 spray intranasal DAILY #100 mL 08/08/23 mcg/actuation nasal spray,suspension (Flonase Allergy Relief) linaclotide 290 mcg capsule 290 mcg PO DAILY #30 caps 08/08/23 (Linzess) sodium,potassium,mag sulfates 17.5 See Rx Instructions PO .COMPLEX 10/03/23 gram-3.13 gram-1.6 gram oral soln #354 mL (Suprep Bowel Prep Kit) sucralfate 100 mg/mL oral 5 ml PO QID #1,000 mL 10/04/23 suspension (Carafate) pantoprazole 40 mg tablet,delayed 40 mg PO BID 90 days #180 tabs 10/07/23 release aluminum-mag hydroxide-simethicone 5 ml PO 5XD PRN indigestion #355 mL 10/10/23 200 mg-200 mg-20 mg/5 mL oral susp (Maalox Advanced) tramadol 50 mg tablet 50 mg PO TID PRN pain 30 days #90 10/18/23 tabs Allergies Allergy/AdvReac Type Severity Reaction Status Date / Time hydrocodone [HYDROCODONE] Allergy Severe RASH, Verified 10/03/23 13:23 AIRWAY CLOSES ibuprofen [From MOTRIN] Allergy Intermediate STOMACH Verified 10/03/23 13:23 UPSET, vomiting trazodone [TRAZODONE] Allergy Intermediate stomach Verified 10/03/23 13:23 upset/anxiety tomato [TOMATO] Allergy Mild HIVES Verified 10/03/23 13:23 DIFFICULTY BREATHING egg Allergy Swelling Verified 10/03/23 13:23 black pepper [BLACK PEPPER] AdvReac Severe DIFFICULTY Verified 10/03/23 13:23 BREATHING, hives lisinopril AdvReac Severe Anaphylaxis Verified 10/03/23 13:23 Review of Systems Review of Systems All other systems are reviewed and are negative Constitutional: Reports as per HPI and Reports no additional constitutional complaints Eyes: Reports as per HPI and Reports no additional eye complaints Reports system reviewed and no additional complaints, except as documented Cardiovascular: Reports as per HPI and Reports no additional cardiovascular complaints Respiratory: Reports as per HPI and Reports no additional respiratory complaints Gastrointestinal: Reports as per HPI and Reports no additional gastrointestinal complaints Genitourinary: Reports no additional female genitourinary complaints Musculoskeletal: Reports no additional musculoskeletal complaints Skin/Breast: Reports system reviewed and no additional complaints, except as docu Psychiatric: Reports no additional psychiatric complaints Endocrine: Reports no additional endocrine complaints Hematologic/Lymphatic: Reports no additional hematologic/lymphatic complaints Allergic/Immunologic: Reports no additional allergic/immunologic complaints Reports system reviewed and no additional complaints, except as documented and Reports Abnormal speech present PMFSH Past Medical History Medical History Type 2 diabetes mellitus with hyperglycemia Vision changes Gastritis Tongue sore Right ear pain Numbness of left hand History of bipolar disorder History of schizophrenia 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 Spondylosis of lumbar spine Diverticulosis Insomnia Vitamin D deficiency GERD (gastroesophageal reflux disease) Carpal tunnel syndrome Hypercholesterolemia Renal calculi Hypertension Alcohol abuse Anxiety and depression Surgical History History of esophagogastroduodenoscopy (EGD) Hx of colonoscopy Hx of bariatric surgery History of tubal ligation H/O: hysterectomy Family History Family History Father Medical history unknown Mother Medical history unknown Paternal Aunt Uterine cancer Diabetes Hypertension Paternal Uncle Liver cancer Heart attack Lung cancer Maternal Aunt Stroke Family/Other Chronic mental illness Sister Uterine cancer Schizophrenia Brother Substance abuse Paternal Grandmother Lung cancer Other Mental health disorder Social History Social History Household Members: None Housing: Apartment Do you presently have visiting nurse or other home services: Yes Alcohol intake: never Patient Tobacco Use Status: Former Tobacco user Tobacco use type: Cigarette Smoked in Last 30 Days: Yes e-Cigarette/Vaping Use: Never Used Second Hand Smoke Exposure: No Use of substances other than those prescribed or required for medical reasons: No Substance Use Type: Marijuana Advance Directives: No service: No Current occupational status: disabled Current occupational exposures/hazards: No Cognitive needs: No Hearing needs: No Vision needs: Yes Physical Exam ED Vital Signs: Vital Signs - 24 hr 10/21/23 07:03 10/21/23 07:08 10/21/23 12:22 Temperature 98.3 F 98.3 F 99.1 F Pulse Rate 72 80 68 Respiratory Rate 18 18 17 Blood Pressure 153/86 H 153/86 H 117/80 Pulse Oximetry 95 Oxygen Delivery Method Room Air BMI result Body Mass Index 22.6 Vital signs have been reviewed and appear to be correct. Blood pressure elevated. Heart rate normal. Respiratory rate normal. Temperature normal. Oxygen saturation normal. Appearance: Alert. Oriented X3. No acute distress. Head: Normal external exam. Normocephalic. Atraumatic. No Hua signs noted. No raccoon eyes noted Eyes: PERRLA. EOMI. Conjunctiva and sclera normal. Eyelids normal. ENT: TM's Normal. Pharynx normal. Uvula midline. Moist mucous membranes. No trismus noted. No drooling noted. No muffled voice noted. Neck: Normal inspection. Neck supple. FROM. No adenopathy. Thyroid Normal. No meningeal signs. No neck mass noted. CVS: Normal heart rate and rhythm. Heart sound normal. No murmurs noted. Pulses normal throughout. Respiratory: No respiratory distress. Painless inspiration. Breath sounds normal. No wheezes/rales/rhonchi noted. Chest nontender. No accessory muscle usage noted or decreased air movement noted. Abdomen: Soft , upper abdominal tenderness, no guarding, no rebound tenderness.Bowel sounds normal in all 4 quadrants. No distention noted. No organomegaly noted. No visible injury noted. Back: No CVA tenderness. Full range of motion noted. Skin: Skin warm and dry. Normal skin color. Normal skin turgor. No rashes/lesions/lacerations noted. Extremities: No lower extremity edema. Extremities exhibit normal range of motion. Extremities nontender. Neuro: Oriented X 3. Cranial nerve exam: II-XII are grossly intact No motor deficit. No sensory deficit. Reflexes normal. Course Reevaluation(s) Reevaluation #1: patient feels better, able to tolerate p.o. intake, abdominal exam shows no tenderness, no guarding, no rebound tenderness. CT abdomen and pelvis with p.o./ IV show no acute intra-abdominal pathology. Will discharge follow-up with PCP. Time: 15:20 Medical Decision Making Differential Diagnosis Differential Diagnoses: The differential diagnosis associated with the presentation includes ( Acute appendicitis, pancreatitis, colitis, diverticulitis, SBO, UTI, , acute anemia, electrolyte derangement , dehydration, gastroenteritis.) Admission/Observation Consideration of admission/observation: Escalation of care including admission/observation considered Lab Data MDM Lab Attestation statement: I reviewed the patient's lab results. 10/21/23 07:44 10/21/23 07:44 Labs: Lab Results 10/21/23 10/21/23 10/21/23 Range/Units 07:44 07:45 08:08 WBC 4.7 L (4.8-10.8) X10*3/uL RBC 4.12 L (4.20-5.50) X10*6/uL Hgb 12.2 (12.0-16.0) g/dl Hct 36.2 L (37.0-47.0) % MCV 87.9 (80.0-98.0) fL MCH 29.6 (27.0-33.0) pg MCHC 33.7 (31.0-35.0) g/dl RDW 14.6 (11.0-16.0) % Plt Count 306 (160-400) X10*3/uL MPV 10.0 (9.4-12.3) fL Immature Gran % (Auto) 0.2 (0.0-0.4) % Neut % (Auto) 53.4 (45-73) % Lymph % (Auto) 31.8 (20-40) % Pike % (Auto) 12.3 H (2-11) % Eos % (Auto) 1.7 (0-4) % Baso % (Auto) 0.6 (0-2) % Lymph # (Auto) 1.5 (1.2-4.9) X10*3/uL Pike # (Auto) 0.6 (0.1-1.2) X10*3/uL Eos # (Auto) 0.1 (0.0-0.4) X10*3/uL Baso # (Auto) 0.0 (0.0-0.2) X10*3/uL Abs Immat Gran (auto) 0.01 (0.00-0.03) X10*3/uL Absolute Neuts (auto) 2.5 (2.0-8.3) x10*3/uL Absolute Nucleated RBC 0.000 (0.0-0.012) X10*3/uL Nucleated RBC % (auto) 0.0 (0.0-0.2) /100WBC Sodium 140 (135-145) mmol/L Potassium 4.1 (3.3-5.1) mmol/L Chloride 104 (96-108) mmol/L Carbon Dioxide 27 (22-29) mmol/L Anion Gap 13 (12-20) BUN 14 (9-16) mg/dL Creatinine 0.63 (0.5-1.4) mg/dL Estim Creat Clear Calc 82.6 Estimated GFR > 60 POC Glucose 54 L* (60-115) mg/dL Random Glucose 90 (60-115) mg/dL Calcium 9.0 (8.4-10.2) mg/dL Total Bilirubin 0.4 (0.0-1.0) mg/dL Direct Bilirubin 0.3 (0.0-0.5) mg/dL AST 17 (5-31) U/L ALT 11 (0-31) U/L Alkaline Phosphatase 57 (39-117) U/L Troponin I High Sens < 2.7 (<3.5-17.0) ng/L Total Protein 7.2 (6.5-8.0) g/dL Albumin 4.4 (3.5-5.0) g/dL Lipase 11 (8-78) U/L Urine Color Urine Appearance Urine pH (5.0-9.0) Ur Specific [place] (1.005-1.025) Urine Protein (Neg-Trace) mg/dL Urine Glucose (UA) (Negative) mg/dL Urine Ketones (Negative) mg/dL Urine Blood (Negative) Urine Nitrite (Negative) Ur Leukocyte Esterase (Negative) Urine Test (NEGATIVE) Stool Occult Blood NEGATIVE (NEGATIVE) 10/21/23 10/21/23 Range/Units 09:23 10:11 WBC (4.8-10.8) X10*3/uL RBC (4.20-5.50) X10*6/uL Hgb (12.0-16.0) g/dl Hct (37.0-47.0) % MCV (80.0-98.0) fL MCH (27.0-33.0) pg MCHC (31.0-35.0) g/dl RDW (11.0-16.0) % Plt Count (160-400) X10*3/uL MPV (9.4-12.3) fL Immature Gran % (Auto) (0.0-0.4) % Neut % (Auto) (45-73) % Lymph % (Auto) (20-40) % Pike % (Auto) (2-11) % Eos % (Auto) (0-4) % Baso % (Auto) (0-2) % Lymph # (Auto) (1.2-4.9) X10*3/uL Pike # (Auto) (0.1-1.2) X10*3/uL Eos # (Auto) (0.0-0.4) X10*3/uL Baso # (Auto) (0.0-0.2) X10*3/uL Abs Immat Gran (auto) (0.00-0.03) X10*3/uL Absolute Neuts (auto) (2.0-8.3) x10*3/uL Absolute Nucleated RBC (0.0-0.012) X10*3/uL Nucleated RBC % (auto) (0.0-0.2) /100WBC Sodium (135-145) mmol/L Potassium (3.3-5.1) mmol/L Chloride (96-108) mmol/L Carbon Dioxide (22-29) mmol/L Anion Gap (12-20) BUN (9-16) mg/dL Creatinine (0.5-1.4) mg/dL Estim Creat Clear Calc Estimated GFR POC Glucose 162 H (60-115) mg/dL Random Glucose (60-115) mg/dL Calcium (8.4-10.2) mg/dL Total Bilirubin (0.0-1.0) mg/dL Direct Bilirubin (0.0-0.5) mg/dL AST (5-31) U/L ALT (0-31) U/L Alkaline Phosphatase (39-117) U/L Troponin I High Sens (<3.5-17.0) ng/L Total Protein (6.5-8.0) g/dL Albumin (3.5-5.0) g/dL Lipase (8-78) U/L Urine Color Yellow Urine Appearance Clear Urine pH 7.5 (5.0-9.0) Ur Specific [place] 1.020 (1.005-1.025) Urine Protein Trace (Neg-Trace) mg/dL Urine Glucose (UA) 500 H (Negative) mg/dL Urine Ketones Negative (Negative) mg/dL Urine Blood Negative (Negative) Urine Nitrite Negative (Negative) Ur Leukocyte Esterase Negative (Negative) Urine Test NEGATIVE (NEGATIVE) Stool Occult Blood (NEGATIVE) Independent Interpretation I performed an independent interpretation of an: CT Scan (* No acute imaging abnormalities in the abdomen or pelvis. * No evidence of inflammatory change or obstruction along the gastrointestinal tract. Diverticula of the sigmoid colon without evidence of diverticulitis. * Although the bladder wall appears to be slightly thickened, the bladder is under) Radiology Impression Discussion of test interpretation with radiology: I have reviewed the radiologist's reading. Medications Administered Discontinued Medications Generic Name Dose Route Start Last Admin Trade Name Freq PRN Reason Stop Dose Admin Al Hydroxide/Mg Hydroxide 30 ml 10/21/23 07:36 10/21/23 07:58 Magnesium Hydrox/Alum Hydrox 30 Ml Oral.Susp PO 10/21/23 07:37 30 ml ONCE ONE Administration Al Hydroxide/Mg Hydroxide 30 ml 10/21/23 14:03 10/21/23 14:05 Magnesium Hydrox/Alum Hydrox 30 Ml Oral.Susp PO 10/21/23 14:04 30 ml ONCE ONE Administration Dextrose 50 gm 10/21/23 08:13 10/21/23 09:16 Dextrose 25 % 2.5 Gm/10 Ml Syringe IV 10/21/23 08:14 Not Given ONCE ONE Dextrose 25 gm 10/21/23 09:14 10/21/23 09:16 Dextrose 50 % 25 Gm/50 Ml Syringe IVPUSH 10/21/23 09:15 25 gm ONCE ONE Administration Diatrizoate Meglum/Diatrizoate Sod 30 ml 10/21/23 07:50 10/21/23 07:50 Diatrizoate Meglumine, Sodium 30 Ml Solution PO 10/21/23 07:51 30 ml ONCE ONE Administration Famotidine 20 mg 10/21/23 07:36 10/21/23 07:55 Famotidine/Pf 20 Mg/2 Ml Vial IVPUSH 10/21/23 07:37 20 mg ONCE ONE Administration Sodium Chloride 1,000 mls @ 999 mls/hr 10/21/23 07:36 10/21/23 09:25 Ns IV 10/21/23 08:36 Infused .Q1H1M ONE Infusion Iohexol 100 ml 10/21/23 10:55 10/21/23 10:56 Iohexol 350 Mg/Ml 100 Ml Infus..Btl IV 10/21/23 10:56 85 ml ONCE ONE Administration Morphine Sulfate 1 mg 10/21/23 07:36 10/21/23 07:52 Morphine Sulfate 2 Mg/Ml Cartridge IVPUSH 10/21/23 07:37 1 mg ONCE ONE Administration Protocol Ondansetron HCl 4 mg 10/21/23 07:36 10/21/23 07:50 Ondansetron Hcl 4 Mg/2 Ml Vial IVPUSH 10/21/23 07:37 4 mg ONCE ONE Administration Discharge Plan Discharge Clinical Impression: Gastroenteritis Patient Disposition: Home, Self-Care Prescriptions: No Action (DME) CANE See Rx Instructions .Route .MEDSUPPLY Qty: 1 0RF Rx Instructions: As directed (DME) WRIST BRACE See Rx Instructions .Route .MEDSUPPLY Qty: 1 0RF Rx Instructions: As directed (DME) BATH CHAIR See Rx Instructions .Route .MEDSUPPLY Qty: 1 0RF Rx Instructions: As directed (DME) LIFELINE ALERT SYSTEM See Rx Instructions .Route .MEDSUPPLY Qty: 1 0RF Rx Instructions: As directed (DME) ALCOHOL PADS See Rx Instructions .Route .MEDSUPPLY Qty: 100 3RF Rx Instructions: As directed (DME) SHOWER WAND See Rx Instructions .Route .MEDSUPPLY Qty: 1 0RF Rx Instructions: As directed (DME) SHOWER BAR See Rx Instructions .Route .MEDSUPPLY Qty: 1 0RF Rx Instructions: As directed (DME) Bedside commode See Rx Instructions .Route .MEDSUPPLY Qty: 1 0RF Rx Instructions: As directed (DME) Bed pads See Rx Instructions .Route .MEDSUPPLY Qty: 100 12RF Rx Instructions: [place] [place] SANITARY PADS See Rx Instructions .Route .MEDSUPPLY Qty: 100 12RF Rx Instructions: As directed Ensure Complete 0.1 gram-1.18 kcal/mL liquid 1 ea PO TID Qty: 1184 12RF polyethylene glycol 3350 [Miralax] 17 gram powder in packet 17 g PO DAILY Qty: 14 3RF Rx Instructions: Use daily until you have a normal bowel movement, then stop. (DME) ROLLATOR See Rx Instructions .Route .MEDSUPPLY Qty: 1 0RF Rx Instructions: As directed simethicone 40 mg/0.6 mL drops,suspension 0.6 ml PO BID-TID PRN (Reason: abdominal distention) Qty: 15 0RF (DME) blood pressure monitor [Blood Pressure Kit] Kit See Rx Instructions .Route Qty: 1 0RF Rx Instructions: As directed sucralfate [Carafate] 100 mg/mL suspension 5 ml PO QID Qty: 1000 0RF Rx Instructions: swish in mouth and swallow; use after food/drink pantoprazole 40 mg tablet,delayed release (DR/EC) 40 mg PO BID 90 Days Qty: 180 1RF alum-mag hydroxide-simeth [Maalox Advanced] 200-200-20 mg/5 mL suspension 5 ml PO 5XD PRN (Reason: indigestion) Qty: 355 4RF Rx Instructions: administer between meals and at bedtime tramadol 50 mg tablet 50 mg PO TID PRN (Reason: pain) 30 Days Qty: 90 0RF ondansetron 4 mg tablet,disintegrating 4 mg PO Q8H Qty: 20 0RF sumatriptan 5 mg/actuation spray,non-aerosol 5 mg intranasal Q2-4H PRN (Reason: migraine headache) Qty: 6 1RF Rx Instructions: into each nostril once; if headache remains, may repeat total dose once after at least 2 hours cyclobenzaprine 5 mg tablet 5 mg PO Q8H PRN (Reason: pain (scale score 7-10)) 5 Days Qty: 14 0RF famotidine [Pepcid] 20 mg tablet 20 mg PO BID 10 Days Qty: 20 0RF prochlorperazine [Compro] 25 mg suppository 25 mg [place] Q12H PRN (Reason: nausea and vomiting) Qty: 12 0RF Miracle Mouthwash-Alan 240 mL liquid 15 ml PO BID Qty: 240 0RF Rx Instructions: Nystatin susp 80 mL;Lidocaine 2% Visc 80 mL; Maalox 80 mL; Swish and spit tnghszhww-smfbjs-xfkqfzpk-scop [] 16.2 mg-0.1037 mg/5 mL (5 mL) elixir 5 ml PO BID PRN (Reason: indigestion) Qty: 50 0RF acetaminophen 160 mg/5 mL liquid 320 mg PO Q6H PRN (Reason: fever or pain) Qty: 473 0RF mv-mins no.73-iron fum-folic 106 mg iron- 1 mg capsule 1 cap PO DAILY Qty: 30 4RF clonazepam 1 mg tablet 1 mg PO TID fluticasone propionate [Flonase Allergy Relief] 50 mcg/actuation spray,suspension 1 spray intranasal DAILY Qty: 100 0RF Rx Instructions: administer into each nostril Linzess 290 mcg capsule 290 mcg PO DAILY Qty: 30 1RF (DME) blood-glucose meter [OneTouch Verio Meter] Misc See Rx Instructions .Route Rx Instructions: As directed (DME) OneTouch Verio test strips Strip See Rx Instructions .Route Rx Instructions: As directed 3 times a day (DME) lancets [OneTouch Delica Lancets] 33 gauge misc See Rx Instructions .Route Rx Instructions: As directed 3 times a day zolpidem 10 mg tablet 10 mg PO BEDTIME PRN (Reason: Insomnia) triamcinolone acetonide 0.1 % cream 1 appl topical DAILY ursodiol 300 mg capsule 300 mg PO BID simethicone [Gas Relief (simethicone)] 80 mg tablet,chewable 160 mg PO BID sodium,potassium,mag sulfates [Suprep Bowel Prep Kit] 17.5-3.13-1.6 gram recon soln See Rx Instructions PO .COMPLEX Qty: 354 0RF Rx Instructions: As per instructions from GI office Referrals: Óscar,Deirdre Raymundo MD [Primary Care Provider] -
[2023-10-21 07:49] LABS: MANUAL DIFF FLAG NO
[2023-10-21] MEDS: ondansetron HCL 4 MG/2 ML VIAL IVPUSH (07:50)
[2023-10-21] MEDS: Diatrizoate Meglumine, Sodium 30 ML SOLUTION PO (07:50)
[2023-10-21 07:52] LABS: Basophils Percent Auto 0.6 % (0-2); Eosinophils Absolute Auto 0.1 X10*3/uL (0.0-0.4); Eosinophils Percent Auto 1.7 % (0-4); Hematocrit 36.2 % (37.0-47.0); Hemoglobin 12.2 g/dl (12.0-16.0); Imm Gran Abs Auto 0.01 X10*3/uL (0.00-0.03); Imm Gran Pct Auto 0.2 % (0.0-0.4); Lymphocytes Absolute Auto 1.5 X10*3/uL (1.2-4.9); Lymphocytes Percent Auto 31.8 % (20-40); Mean Corpuscular HGB Conc 33.7 g/dl (31.0-35.0); Mean Corpuscular Hemoglobin 29.6 pg (27.0-33.0); Mean Corpuscular Volume 87.9 fL (80.0-98.0); Monocytes Absolute Auto 0.6 X10*3/uL (0.1-1.2); Monocytes Percent Auto 12.3 % (2-11); Neutrophils Absolute Auto 2.5 x10*3/uL (2.0-8.3); Neutrophils Percent Auto 53.4 % (45-73); Platelet Count 306 X10*3/uL (160-400); Red Blood Count 4.12 X10*6/uL (4.20-5.50); Red Cell Distribution Width 14.6 % (11.0-16.0); White Blood Count 4.7 X10*3/uL (4.8-10.8)
[2023-10-21] MEDS: Morphine Sulfate 2 MG/ML CARTRIDGE 1 MG IVPUSH (07:52)
[2023-10-21 07:53] LABS: OBS1 NEGATIVE (NEGATIVE)
[2023-10-21 07:54] LABS: OBS Int Ctl Valid YES
[2023-10-21] MEDS: Famotidine/PF 20 MG/2 ML VIAL IVPUSH (07:55)
[2023-10-21] MEDS: Magnesium Hydrox/Alum Hydrox 30 ML ORAL.SUSP PO ×2 (07:58→14:05)
[2023-10-21] MEDS: 0.9 % Sodium Chloride 1,000 ML 999 ML IV (07:59)
[2023-10-21 08:05] LABS: Alanine Aminotransferase 11 U/L (0-31); Albumin Level 4.4 g/dL (3.5-5.0); Alkaline Phosphatase 57 U/L (39-117); Anion Gap 13 (12-20); Aspartate Amino Transferase 17 U/L (5-31); Bilirubin Direct 0.3 mg/dL (0.0-0.5); Bilirubin Total 0.4 mg/dL (0.0-1.0); Blood Urea Nitrogen 14 mg/dL (9-16); Carbon Dioxide 27 mmol/L (22-29); Chloride 104 mmol/L (96-108); Creatinine Clr Calc Pharmacy 82.6; Estimated Glomerular Filt Rate > 60; Glucose Random 90 mg/dL (60-115); Lipase 11 U/L (8-78); Potassium 4.1 mmol/L (3.3-5.1); Sodium 140 mmol/L (135-145); Total Protein 7.2 g/dL (6.5-8.0)
--- NOTE | 2023-10-21 08:11 | PC.NURSE ---
Pt alerted RN that her sugar gets low at times and feels like it is low now. BGL assessed and is 54. Provider alerted. Pt remains alert and oriented.
[2023-10-21 08:12] LABS: Glucose, Whole Blood 54 mg/dL (60-115)
[2023-10-21 08:14] LABS: Troponin-I High Sensitivity < 2.7 ng/L (<3.5-17.0)
[2023-10-21] MEDS: Dextrose 50 % 25 GM/50 ML SYRINGE IVPUSH (09:16)
--- NOTE | 2023-10-21 09:25 | MHC.EDTECH ---
POC 162
--- NOTE | 2023-10-21 09:26 | PC.NURSE ---
BGL reassessed and noted to improve to WNL. Pt reports pain has improved to 7/10, resting in bed at this time.
[2023-10-21 09:27] LABS: Glucose, Whole Blood 162 mg/dL (60-115)
[2023-10-21 10:17] LABS: Appearance Urine Clear; Color Urine Yellow; Glucose Urine UA 500 mg/dL (Negative); Leukocyte Esterase Urine Negative (Negative); Nitrite Urine Negative (Negative); PH 7.5 (5.0-9.0); UPreg QC Valid YES; Urine Blood Negative (Negative); Urine Ketones Negative (Negative); Urine Protein Trace mg/dL (Neg-Trace)
[2023-10-21 10:18] LABS: Urine Pregnancy NEGATIVE (NEGATIVE)
[2023-10-21] MEDS: iohexoL 350 MG/ML 100 ML INFUS..BTL IV (10:56)
[2023-10-21 12:22] VITALS: BP 117/80; PULSE 68; RESP 17; TEMP 37.3
[2023-10-21 15:23] VITALS: BP 107/66; PULSE 70; RESP 19; TEMP 37.2; O2SAT 100
[2023-10-21 15:52] VITALS: BP 109/70; PULSE 70; RESP 16; TEMP 37.2; O2SAT 98
== END 2023-10-21 15:52 | disposition home or self-care (01) ==
PROVIDERS: Emergency Provider Emergency Medicine; PCP Internal Medicine
DX: K52.9 Noninfective gastroenteritis and colitis, unspecified (principal); I10 Essential (primary) hypertension; E11.9 Type 2 diabetes mellitus without complications; Z98.84 Bariatric surgery status
CPT/HCPCS: 36415; 74177; 80048; 80076; 81003; 81025; 82272; 82947; 83690; 84484; 85025; 96361; 96374; 96375; 99284; J2270; J2405; Q9967

== ENCOUNTER 2023-10-24 10:45 | Outpatient (REF) | payer OTHER, SELFPAY | END 2023-10-24 10:46 | disposition home or self-care (01) | LOC: HO.US 10:45 | PROVIDERS: PCP Internal Medicine; Visit Provider Obstetrics & Gynecology | DX: Z13.89 Encounter for screening for other disorder (principal) ==

== ENCOUNTER 2023-11-05 13:03 | Outpatient (REF) | payer OTHER, SELFPAY ==
--- NOTE | ~2023-11-05 | US_ITS ---
EXAMINATION: US PELVIC AND TRANSVAGINAL CLINICAL INFORMATION: Hysterectomy, postmenopausal, ovarian cyst. 1.8 cm left ovarian follicle on CT abdomen and pelvis of 10/21/2023. COMPARISON: CT abdomen and pelvis of 10/21/2023 TECHNIQUE: Ultrasound of the pelvis is performed using both transabdominal and transvaginal transducers along with Doppler. Transvaginal imaging is performed due to inadequate visualization transabdominally. FINDINGS: The uterus is surgically absent. Right ovary not visualized. Limited visualization due to bowel gas. Margins of the left ovary are difficult to visualize due to bowel gas, but structure felt to represent the left ovary measures approximately 3.1 x 2.0 x 1.7 cm, volume 5.5 mL. 1.9 x 1.3 x 1.3 cm left adnexal cyst is likely simple and likely a left ovarian cyst. No significant free fluid. US/US pelvic and transvaginal IMPRESSION: 1. Left adnexal 1.9 cm cyst is likely simple and likely ovarian in origin, but difficult to characterize due to bowel gas. CT scan of 10/21/2023 demonstrated a 1.8 cm left ovarian follicle. 2. Uterus surgically absent. 3. Right ovary not visualized.
== END 2023-11-05 13:04 | disposition home or self-care (01) ==
LOC: HO.US 13:03
PROVIDERS: PCP Internal Medicine; Visit Provider Obstetrics & Gynecology
DX: N83.299 Other ovarian cyst, unspecified side (principal)
CPT/HCPCS: 76830; 76856

== ENCOUNTER 2023-11-08 09:56 | Outpatient (REF) | payer OTHER, SELFPAY ==
[2023-11-09 13:09] LABS: BV Int Neg Control Negative (Negative); BV Int Pos Control Positive (Positive)
== END 2023-11-08 09:57 | disposition home or self-care (01) ==
LOC: HO.LNP 09:56
PROVIDERS: PCP Internal Medicine; Visit Provider Obstetrics & Gynecology
DX: N89.8 Other specified noninflammatory disorders of vagina (principal); R10.2 Pelvic and perineal pain
CPT/HCPCS: 81003; 87480; 87510; 87660; 99212

== ENCOUNTER 2023-11-08 09:56 | Outpatient (AMB) | payer OTHER, SELFPAY ==
[2023-11-08 10:07] VITALS: BP 110/74; BMI 22.5
--- NOTE | 2023-11-08 10:07 | A.OFFVIS_ITS ---
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 Required: No Allergies hydrocodone [HYDROCODONE] Allergy (Severe, Verified 11/08/23 10:08) RASH, AIRWAY CLOSES ibuprofen [From MOTRIN] Allergy (Intermediate, Verified 11/08/23 10:08) STOMACH UPSET, vomiting trazodone [TRAZODONE] Allergy (Intermediate, Verified 11/08/23 10:08) stomach upset/anxiety tomato [TOMATO] Allergy (Mild, Verified 11/08/23 10:08) HIVES DIFFICULTY BREATHING egg Allergy (Verified 11/08/23 10:08) Swelling black pepper [BLACK PEPPER] Adverse Reaction (Severe, Verified 11/08/23 10:08) DIFFICULTY BREATHING, hives lisinopril Adverse Reaction (Severe, Verified 11/08/23 10:08) Anaphylaxis Is last menstrual period known: No HPI HPI Comments History of Present Illness Details Presenting for ultrasound follow-up. Complaining of pelvic pain, more on the right associated with a vaginal discharge that is yellowish in nature no associated malodor or itching Pelvic Ultrasound showed the following: The uterus is surgically absent. Right ovary not visualized. Limited visualization due to bowel gas. Margins of the left ovary are difficult to visualize due to bowel gas, but structure felt to represent the left ovary measures approximately 3.1 x 2.0 x 1.7 cm, volume 5.5 mL. 1.9 x 1.3 x 1.3 cm left adnexal cyst is likely simple and likely a left ovarian cyst. No significant free fluid. 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 Spondylosis of lumbar spine Diverticulosis Insomnia Vitamin D deficiency GERD (gastroesophageal reflux disease) Carpal tunnel syndrome Hypercholesterolemia Renal calculi Hypertension Alcohol abuse Anxiety and depression Surgical History History of esophagogastroduodenoscopy (EGD) Hx of colonoscopy Hx of bariatric surgery History of tubal ligation H/O: hysterectomy Family History Father Medical history unknown Mother Medical history unknown Paternal Aunt Uterine cancer Diabetes Hypertension Paternal Uncle Liver cancer Heart attack Lung cancer Maternal Aunt Stroke Family/Other Chronic mental illness Sister Uterine cancer Schizophrenia Brother Substance abuse Paternal Grandmother Lung cancer Other Mental health disorder Social History Household Members: None Housing: Apartment Do you presently have visiting nurse or other home services: Yes Alcohol intake: never Patient Tobacco Use Status: Former Tobacco user Tobacco use type: Cigarette e-Cigarette/Vaping Use: Never Used Second Hand Smoke Exposure: No Substance Use Type: Marijuana service: No Current occupational status: disabled Current occupational exposures/hazards: No Cognitive needs: No Hearing needs: No Vision needs: Yes Female Reproductive History Menstrual Age of Menarche: 11 control method: permanent sterilization Physical Exam GI Palpation (GI): Soft to palpation and nontender External Female Exam: normal external appearance Speculum Exam - Vagina: normal appearance of the vagina Speculum Exam - Cervix: Cervix absent Bimanual exam- vagina & uterus: uterus absent Bimanual Exam- Adnexa, other: normal adnexae Assessment & Plan Assessment & Plan (1) Vaginal discharge: Code(s): N89.8 - Other specified noninflammatory disorders of vagina Plan: BV panel taken will check the results and treat accordingly (2) Pelvic pain: Comment: Left likely simple ovarian cyst, bowel gas obstructing the visualization Code(s): R10.2 - Pelvic and perineal pain Plan: Urine dip done in the office was negative. Discussed with the patient the results the ultrasound showing left ovarian cyst likely simple it was obstructed by bowel gas in the right ovary was not visualized will repeat ultrasound in 6 weeks. Instructions given the patient to call or go to emergency room in case of worsening of pelvic pain, fever above 100.4, nausea or vomiting and to schedu le an ultrasound follow-up appointment in 6 weeks Orders: Orders US pelvic and transvaginal Today R10.2 - Pelvic and perineal pain Coding Level of Care Code Est Pt Level 3 (37576) Diagnoses Vaginal discharge N89.8 Pelvic pain R10.2
== END 2023-11-08 10:20 | disposition home or self-care (01) ==
PROVIDERS: PCP Internal Medicine; Visit Provider Obstetrics & Gynecology
DX: N89.8 Other specified noninflammatory disorders of vagina (principal); R10.2 Pelvic and perineal pain
CPT/HCPCS: 99213

== ENCOUNTER 2023-11-11 02:08 | Emergency (ER) | payer OTHER, SELFPAY ==
--- NOTE | ~2023-11-11 | XR_ITS ---
EXAMINATION: XR ABDOMEN KUB CLINICAL INDICATION: Abdominal pain. Constipation. Nausea. COMPARISON: None available. TECHNIQUE: AP view of the abdomen. FINDINGS: The bowel gas pattern is normal with no evidence of ileus or obstruction. There is retained stool throughout the colon. No unusual soft tissue calcifications are noted. The bones are unremarkable. XR/XR KUB IMPRESSION: 1. Nonobstructive bowel gas pattern. 2. Retained stool throughout the colon.
[2023-11-11 02:40] VITALS: BP 160/124; PULSE 83; RESP 16; TEMP 36.8; O2SAT 98; BMI 22.0
[2023-11-11 03:06] LABS: MANUAL DIFF FLAG NO
[2023-11-11 03:09] LABS: Basophils Absolute Auto 0.1 X10*3/uL (0.0-0.2); Basophils Percent Auto 1.3 % (0-2); Eosinophils Absolute Auto 0.1 X10*3/uL (0.0-0.4); Eosinophils Percent Auto 2.3 % (0-4); Hematocrit 38.3 % (37.0-47.0); Imm Gran Abs Auto 0.01 X10*3/uL (0.00-0.03); Imm Gran Pct Auto 0.2 % (0.0-0.4); Lymphocytes Absolute Auto 1.7 X10*3/uL (1.2-4.9); Lymphocytes Percent Auto 32.6 % (20-40); Mean Corpuscular HGB Conc 33.9 g/dl (31.0-35.0); Mean Corpuscular Hemoglobin 29.7 pg (27.0-33.0); Mean Corpuscular Volume 87.4 fL (80.0-98.0); Mean Platelet Volume 9.7 fL (9.4-12.3); Monocytes Absolute Auto 0.5 X10*3/uL (0.1-1.2); Monocytes Percent Auto 10.2 % (2-11); Neutrophils Absolute Auto 2.8 x10*3/uL (2.0-8.3); Neutrophils Percent Auto 53.4 % (45-73); Platelet Count 315 X10*3/uL (160-400); Red Blood Count 4.38 X10*6/uL (4.20-5.50); Red Cell Distribution Width 14.2 % (11.0-16.0); White Blood Count 5.2 X10*3/uL (4.8-10.8)
[2023-11-11 03:11] LABS: Appearance Urine Cloudy; Color Urine Yellow; Glucose Urine UA Negative (Negative); Leukocyte Esterase Urine Negative (Negative); Nitrite Urine Negative (Negative); Urine Blood Negative (Negative); Urine Ketones Negative (Negative); Urine Protein Trace mg/dL (Neg-Trace)
[2023-11-11 03:13] LABS: UPreg QC Valid YES; Urine Pregnancy NEGATIVE (NEGATIVE)
[2023-11-11 03:23] LABS: Alanine Aminotransferase 11 U/L (0-31); Albumin Level 4.5 g/dL (3.5-5.0); Alkaline Phosphatase 61 U/L (39-117); Anion Gap 12 (12-20); Aspartate Amino Transferase 17 U/L (5-31); Bilirubin Total 0.3 mg/dL (0.0-1.0); Blood Urea Nitrogen 16 mg/dL (9-16); Calcium 9.1 mg/dL (8.4-10.2); Carbon Dioxide 29 mmol/L (22-29); Chloride 103 mmol/L (96-108); Creatinine Clr Calc Pharmacy 85.5; Estimated Glomerular Filt Rate > 60; Glucose Random 96 mg/dL (60-115); Potassium 4.2 mmol/L (3.3-5.1); Sodium 140 mmol/L (135-145); Total Protein 7.1 g/dL (6.5-8.0)
[2023-11-11 05:59] VITALS: BP 127/75; PULSE 69; RESP 18; TEMP 36.6; O2SAT 98
--- NOTE | 2023-11-11 06:24 | PC.NURSE ---
Pt ca&ox4, no signs of distress. Pt reports 10/10 right sided abdm pain onset 5 days ago with n/v. Pt denies diarrhea but reports mucus in bowel Plan of care ongoing.
--- NOTE | 2023-11-11 07:41 | ED_ITS ---
HPI - Abdominal Pain General Chief Complaint: Abdominal Pain Stated Complaint: abdominal pain Time Seen by Provider: 11/11/23 07:13 Source: patient Mode of arrival: ambulatory History of Present Illness HPI narrative: 43-year-old female with presentation for 5 days of inability to have bowel movement and now describing lower abdominal discomfort and bloating she has had intermittent nausea and vomiting, patient states that she is passing gas but when straining to have a bowel movement she also notices bleeding and on triage note patient reports Crohn's disease. Related Data Home Medications ?Medication ?Instructions ?Recorded ?Confirmed blood [facility] 08[facility]08[facility] Verio test strips) blood-glucose meter [facility] 08/08/[facility] Verio Meter) lancets 33 gauge ([facility] 08/15/22 08/08/23 Lancets) triamcinolone acetonide 0.1 % 1 appl topical DAILY 02/07/23 08/08/23 topical cream zolpidem 10 mg tablet 10 mg PO BEDTIME PRN Insomnia 02/07/23 08/08/23 simethicone 80 mg chewable tablet 160 mg PO BID 08/07/23 08/08/23 (Gas Relief (simethicone)) ursodiol 300 mg capsule 300 mg PO BID 08/07/23 08/08/23 clonazepam 1 mg tablet 1 mg PO TID 08/08/23 08/08/23 Previous Rx's ?Medication ?Instructions ?Recorded BATH CHAIR #1 ea 01/31/22 CANE #1 ea 01/31/22 LIFELINE ALERT SYSTEM #1 ea 01/31/22 WRIST BRACE #1 ea 01/31/22 ALCOHOL PADS #100 ea 02/21/22 SHOWER BAR #1 ea 06/08/22 SHOWER WAND #1 ea 06/08/22 Bed pads #100 ea 07/17/22 Bedside commode #1 ea 07/17/22 SANITARY PADS #100 ea 07/17/22 food supplemt, lactose-reduced 0.1 1 ea PO TID #1,184 mL 01/29/23 gram-1.18 kcal/mL oral liquid (Ensure Complete) polyethylene glycol 3350 17 gram 17 g PO DAILY #14 ea 01/31/23 oral powder packet (Miralax) ondansetron 4 mg disintegrating 4 mg PO Q8H nausea and vomiting 03/03/23 tablet #20 tabs sumatriptan 5 mg/actuation nasal 5 mg intranasal Q2-4H PRN migraine 03/03/23 spray headache #6 ea Miracle Mouthwash-Alan 240 mL 15 ml PO BID #240 mL 03/16/23 liquid bpdmpbjgp-hdokeejuo-smcltdlr-scop 5 ml PO BID PRN indigestion #50 mL 03/16/23 16.2 mg-0.1037 mg/5 mL (5 mL) elixir () prochlorperazine 25 mg rectal 25 mg MO Q12H PRN nausea and 03/16/23 suppository (Compro) vomiting #12 ea cyclobenzaprine 5 mg tablet 5 mg PO Q8H PRN pain (scale score 03/20/23 7-10) 5 days #14 tabs multivit-minerals no.73-iron 1 cap PO DAILY #30 caps 04/16/23 fumarate 106 mg-folic acid 1 mg capsule acetaminophen 160 mg/5 mL oral 320 mg (10 mL) PO Q6H PRN fever or 05/23/23 liquid pain #473 mL ROLLATOR #1 ea 06/28/23 famotidine 20 mg tablet (Pepcid) 20 mg PO BID 10 days #20 tabs 07/18/23 simethicone 40 mg/0.6 mL oral 0.6 ml PO BID-TID PRN abdominal 08/02/23 drops,suspension distention #15 mL blood pressure monitor (Blood #1 ea 08/06/23 Pressure Kit) fluticasone propionate 50 1 spray intranasal DAILY #100 mL 08/08/23 mcg/actuation nasal spray,suspension (Flonase Allergy Relief) linaclotide 290 mcg capsule 290 mcg PO DAILY #30 caps 08/08/23 (Linzess) sodium,potassium,mag sulfates 17.5 See Rx Instructions PO .COMPLEX 10/03/23 gram-3.13 gram-1.6 gram oral soln #354 mL (Suprep Bowel Prep Kit) sucralfate 100 mg/mL oral 5 ml PO QID #1,000 mL 10/04/23 suspension (Carafate) pantoprazole 40 mg tablet,delayed 40 mg PO BID 90 days #180 tabs 10/07/23 release aluminum-mag hydroxide-simethicone 5 ml PO 5XD PRN indigestion #355 mL 10/10/23 200 mg-200 mg-20 mg/5 mL oral susp (Maalox Advanced) tramadol 50 mg tablet 50 mg PO TID PRN pain 30 days #90 10/18/23 tabs polyethylene glycol 3350 17 17 g PO BID #850 grams 11/11/23 gram/dose oral powder (Miralax) Allergies Allergy/AdvReac Type Severity Reaction Status Date / Time hydrocodone [HYDROCODONE] Allergy Severe RASH, Verified 11/11/23 02:43 AIRWAY CLOSES ibuprofen [From MOTRIN] Allergy Intermediate STOMACH Verified 11/11/23 02:43 UPSET, vomiting trazodone [TRAZODONE] Allergy Intermediate stomach Verified 11/11/23 02:43 upset/anxiety tomato [TOMATO] Allergy Mild HIVES Verified 11/11/23 02:43 DIFFICULTY BREATHING egg Allergy Swelling Verified 11/11/23 02:43 black pepper [BLACK PEPPER] AdvReac Severe DIFFICULTY Verified 11/11/23 02:43 BREATHING, hives lisinopril AdvReac Severe Anaphylaxis Verified 11/11/23 02:43 Review of Systems Review of Systems Pertinent positives and negatives as stated in HPI PMFSH Past Medical History Source: nursing notes reviewed Medical History Type 2 diabetes mellitus with hyperglycemia Vision changes Gastritis Tongue sore Right ear pain Numbness of left hand History of bipolar disorder History of schizophrenia 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 Spondylosis of lumbar spine Diverticulosis Insomnia Vitamin D deficiency GERD (gastroesophageal reflux disease) Carpal tunnel syndrome Hypercholesterolemia Renal calculi Hypertension Alcohol abuse Anxiety and depression Surgical History History of esophagogastroduodenoscopy (EGD) Hx of colonoscopy Hx of bariatric surgery History of tubal ligation H/O: hysterectomy Family History Family History Father Medical history unknown Mother Medical history unknown Paternal Aunt Uterine cancer Diabetes Hypertension Paternal Uncle Liver cancer Heart attack Lung cancer Maternal Aunt Stroke Family/Other Chronic mental illness Sister Uterine cancer Schizophrenia Brother Substance abuse Paternal Grandmother Lung cancer Other Mental health disorder Social History Social History Household Members: None Housing: Apartment Do you presently have visiting nurse or other home services: Yes Alcohol intake: never Patient Tobacco Use Status: Former Tobacco user Tobacco use type: Cigarette Smoked in Last 30 Days: Yes e-Cigarette/Vaping Use: Never Used Second Hand Smoke Exposure: No Use of substances other than those prescribed or required for medical reasons: No Substance Use Type: Marijuana Advance Directives: No Advance Directives Information Provided: No service: No Current occupational status: disabled Current occupational exposures/hazards: No Cognitive needs: No Hearing needs: No Vision needs: Yes Physical Exam ED Vital Signs: Vital Signs - 24 hr 11/11/23 02:40 11/11/23 05:59 Temperature 98.2 F 97.8 F Pulse Rate 83 69 Respiratory Rate 16 18 Blood Pressure 160/124 H 127/75 Pulse Oximetry 98 98 Oxygen Delivery Method Room Air Room Air BMI result Body Mass Index 22.0 VITAL SIGNS: Reviewed. GENERAL: Well developed, well nourished, in no acute distress. HEAD: Normocephalic/atraumatic EYES: PERRLA, EOMI LUNGS: Normal breath sounds. No adventitious sounds or accessory muscle use. SpO2<98> CARDIOVASCULAR: Regular rate and rhythm without noted murmurs ABDOMEN: Soft, non-tender, non-distended with bowel sounds. MUSCULOSKELETAL: No tenderness, deformities, or effusions noted on gross inspection. EXTREMITIES: No cyanosis, clubbing or edema. SKIN: Inspection of the skin reveals no rashes NEUROLOGIC: Alert and oriented x 4. Strength and sensation to light touch were grossly intact x 4. Medical Decision Making Medical Decision Making MDM Narrative: 43-year-old female with history and clinical presentation, DDX: Constipation, obstruction, suspect hemorrhoidal bleeding secondary to constipation, on review of gastroenterology notes I see no discussion regarding a Crohn's diagnosis but I do see discussion regarding GERD and dysphagia as well as diarrhea. I reviewed all investigations and hematologic indices are negative for leukocytosis/left shift/anemia or thrombocytopenia. Chemistry indices negative for JOSE/electrolyte odor liver enzyme derangements. Urinalysis is negative for UTI, , hematuria. KUB demonstrates nonobstructive bowel gas pattern and retained stool throughout the colon. Patient discharged home with bowel regimen. Differential Diagnosis Differential Diagnoses: The differential diagnosis associated with the presentation includes Please see the discussion above Admission/Observation Consideration of admission/observation: Escalation of care including admission/observation considered Please see the discussion above Lab Data MDM Lab Attestation statement: I reviewed the patient's lab results. Please see the discussion above 11/11/23 02:56 11/11/23 02:56 Labs: Lab Results 11/11/23 11/11/23 Range/Units 02:56 02:58 WBC 5.2 (4.8-10.8) X10*3/uL RBC 4.38 (4.20-5.50) X10*6/uL Hgb 13.0 (12.0-16.0) g/dl Hct 38.3 (37.0-47.0) % MCV 87.4 (80.0-98.0) fL MCH 29.7 (27.0-33.0) pg MCHC 33.9 (31.0-35.0) g/dl RDW 14.2 (11.0-16.0) % Plt Count 315 (160-400) X10*3/uL MPV 9.7 (9.4-12.3) fL Immature Gran % (Auto) 0.2 (0.0-0.4) % Neut % (Auto) 53.4 (45-73) % Lymph % (Auto) 32.6 (20-40) % Stearns % (Auto) 10.2 (2-11) % Eos % (Auto) 2.3 (0-4) % Baso % (Auto) 1.3 (0-2) % Lymph # (Auto) 1.7 (1.2-4.9) X10*3/uL Stearns # (Auto) 0.5 (0.1-1.2) X10*3/uL Eos # (Auto) 0.1 (0.0-0.4) X10*3/uL Baso # (Auto) 0.1 (0.0-0.2) X10*3/uL Abs Immat Gran (auto) 0.01 (0.00-0.03) X10*3/uL Absolute Neuts (auto) 2.8 (2.0-8.3) x10*3/uL Absolute Nucleated RBC 0.000 (0.0-0.012) X10*3/uL Nucleated RBC % (auto) 0.0 (0.0-0.2) /100WBC Sodium 140 (135-145) mmol/L Potassium 4.2 (3.3-5.1) mmol/L Chloride 103 (96-108) mmol/L Carbon Dioxide 29 (22-29) mmol/L Anion Gap 12 (12-20) BUN 16 (9-16) mg/dL Creatinine 0.64 (0.5-1.4) mg/dL Estim Creat Clear Calc 85.5 Estimated GFR > 60 Random Glucose 96 (60-115) mg/dL Calcium 9.1 (8.4-10.2) mg/dL Total Bilirubin 0.3 (0.0-1.0) mg/dL AST 17 (5-31) U/L ALT 11 (0-31) U/L Alkaline Phosphatase 61 (39-117) U/L Total Protein 7.1 (6.5-8.0) g/dL Albumin 4.5 (3.5-5.0) g/dL Urine Color Yellow Urine Appearance Cloudy Urine pH 7.0 (5.0-9.0) Ur Specific Charlo 1.020 (1.005-1.025) Urine Protein Trace (Neg-Trace) mg/dL Urine Glucose (UA) Negative (Negative) mg/dL Urine Ketones Negative (Negative) mg/dL Urine Blood Negative (Negative) Urine Nitrite Negative (Negative) Ur Leukocyte Esterase Negative (Negative) Urine Test NEGATIVE (NEGATIVE) Radiology Impression Discussion of test interpretation with radiology: I have reviewed the radiologist's reading. Radiologist Impression: Please see the discussion above External Record Review External record reviewed: Outpatient record, Prior outpatient labs and Prior outpatient radiology Critical Care Time Critical Care Time Critical Care Time: Yes Total Critical Care Time: 30 Attestation: I personally attest to this time spent taking care of the patient. Discharge Plan Discharge Clinical Impression: Constipation Patient Disposition: Home, Self-Care Instructions: Constipation (ED), High Fiber Diet (ED), Fleet Enema (ED) Additional Instructions: Follow-up with your primary care doctor 1st thing in the morning. Return for worsening symptoms. Prescriptions: New polyethylene glycol 3350 [Miralax] 17 gram/dose powder 17 g PO BID Qty: 850 0RF No Action (DME) CANE See Rx Instructions .Route .MEDSUPPLY Qty: 1 0RF Rx Instructions: As directed ([facility]) WRIST BRACE See Rx Instructions .Route .MEDSUPPLY Qty: 1 0RF Rx Instructions: As directed ([facility]) BATH CHAIR See Rx Instructions .Route .MEDSUPPLY Qty: 1 0RF Rx Instructions: As directed ([facility]) LIFELINE ALERT SYSTEM See Rx Instructions .Route .MEDSUPPLY Qty: 1 0RF Rx Instructions: As directed (DME) ALCOHOL PADS See Rx Instructions .Route .MEDSUPPLY Qty: 100 3RF Rx Instructions: As directed ([facility] [place]) SHOWER WAND See Rx Instructions .Route .MEDSUPPLY Qty: 1 0RF Rx Instructions: As directed ([facility] [place]) SHOWER BAR See Rx Instructions .Route .MEDSUPPLY Qty: 1 0RF Rx Instructions: As directed ([facility]) Bedside commode See Rx Instructions .Route .MEDSUPPLY Qty: 1 0RF Rx Instructions: As directed ([facility]) Bed pads See Rx Instructions .Route .MEDSUPPLY Qty: 100 12RF Rx Instructions: As directed ([facility] [place]) SANITARY PADS See Rx Instructions .Route .MEDSUPPLY Qty: 100 12RF Rx Instructions: As directed Ensure Complete 0.1 gram-1.18 kcal/mL liquid 1 ea PO TID Qty: 1184 12RF polyethylene glycol 3350 [Miralax] 17 gram powder in packet 17 g PO DAILY Qty: 14 3RF Rx Instructions: Use daily until you have a normal bowel movement, then stop. (DME) ROLLATOR See Rx Instructions .Route .MEDSUPPLY Qty: 1 0RF Rx Instructions: As directed simethicone 40 mg/0.6 mL drops,suspension 0.6 ml PO BID-TID PRN (Reason: abdominal distention) Qty: 15 0RF (DME) blood pressure monitor [Blood Pressure Kit] Kit See Rx Instructions .Route Qty: 1 0RF Rx Instructions: As directed sucralfate [Carafate] 100 mg/mL suspension 5 ml PO QID Qty: 1000 0RF Rx Instructions: swish in mouth and swallow; use after food/drink pantoprazole 40 mg tablet,delayed release (DR/EC) 40 mg PO BID 90 Days Qty: 180 1RF alum-mag hydroxide-simeth [Maalox Advanced] 200-200-20 mg/5 mL suspension 5 ml PO 5XD PRN (Reason: indigestion) Qty: 355 4RF Rx Instructions: administer between meals and at bedtime tramadol 50 mg tablet 50 mg PO TID PRN (Reason: pain) 30 Days Qty: 90 0RF ondansetron 4 mg tablet,disintegrating 4 mg PO Q8H Qty: 20 0RF sumatriptan 5 mg/actuation spray,non-aerosol 5 mg intranasal Q2-4H PRN (Reason: migraine headache) Qty: 6 1RF Rx Instructions: into each nostril once; if headache remains, may repeat total dose once after at least 2 hours cyclobenzaprine 5 mg tablet 5 mg PO Q8H PRN (Reason: pain (scale score 7-10)) 5 Days Qty: 14 0RF famotidine [Pepcid] 20 mg tablet 20 mg PO BID 10 Days Qty: 20 0RF prochlorperazine [Compro] 25 mg suppository 25 mg MO Q12H PRN (Reason: nausea and vomiting) Qty: 12 0RF Miracle Mouthwash-Alan 240 mL liquid 15 ml PO BID Qty: 240 0RF Rx Instructions: Nystatin susp 80 mL;Lidocaine 2% Visc 80 mL; Maalox 80 mL; Swish and spit ukxyahrjp-uozivk-ravqjxho-scop [] 16.2 mg-0.1037 mg/5 mL (5 mL) elixir 5 ml PO BID PRN (Reason: indigestion) Qty: 50 0RF acetaminophen 160 mg/5 mL liquid 320 mg PO Q6H PRN (Reason: fever or pain) Qty: 473 0RF mv-mins no.73-iron fum-folic 106 mg iron- 1 mg capsule 1 cap PO DAILY Qty: 30 4RF clonazepam 1 mg tablet 1 mg PO TID fluticasone propionate [Flonase Allergy Relief] 50 mcg/actuation spray,suspension 1 spray intranasal DAILY Qty: 100 0RF Rx Instructions: administer into each nostril Linzess 290 mcg capsule 290 mcg PO DAILY Qty: 30 1RF (DME) blood-glucose meter [OneTouch Verio Meter] Misc See Rx Instructions .Route Rx Instructions: As directed (DME) OneTouch Verio test strips Strip See Rx Instructions .Route Rx Instructions: As directed 3 times a day (DME) lancets [OneTouch Delica Lancets] 33 gauge misc See Rx Instructions .Route Rx Instructions: As directed 3 times a day zolpidem 10 mg tablet 10 mg PO BEDTIME PRN (Reason: Insomnia) triamcinolone acetonide 0.1 % cream 1 appl topical DAILY ursodiol 300 mg capsule 300 mg PO BID simethicone [Gas Relief (simethicone)] 80 mg tablet,chewable 160 mg PO BID sodium,potassium,mag sulfates [Suprep Bowel Prep Kit] 17.5-3.13-1.6 gram recon soln See Rx Instructions PO .COMPLEX Qty: 354 0RF Rx Instructions: As per instructions from GI office Referrals: Óscar,Deirdre Raymundo MD [Primary Care Provider] - Print Language: Pakistani
[2023-11-11] MEDS: Ondansetron ODT 4 MG TAB.RAPDIS TRANSLINGU (08:58)
[2023-11-11] MEDS: Acetaminophen 325 MG TABLET 975 MG PO (08:58)
[2023-11-11] MEDS: Sodium Phosphate,Mono-Dibasic 133 ML ENEMA PR (09:00)
--- NOTE | 2023-11-11 09:12 | PC.NURSE ---
PT REPORTING 10/10 PAIN WTHOUT OUTWARD DISTRESS, SHE WAS MEDICATED CHARTED INCLUSIVE OF A ENEMA FOR CONSTIPATION
--- NOTE | 2023-11-11 09:23 | PC.NURSE ---
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
[2023-11-11 09:24] VITALS: BP 121/74; PULSE 65; RESP 14; TEMP 36.6; O2SAT 98
== END 2023-11-11 09:25 | disposition home or self-care (01) ==
PROVIDERS: Emergency Provider Student in an Organized Health Care Education/Training Program; PCP Internal Medicine
DX: K59.00 Constipation, unspecified (principal); E11.9 Type 2 diabetes mellitus without complications; I10 Essential (primary) hypertension; Z88.6 Allergy status to analgesic agent; Z88.8 Allergy status to other drugs, medicaments and biological substances
CPT/HCPCS: 36415; 74018; 80053; 81003; 81025; 85025; 99284

== ENCOUNTER 2023-11-14 10:56 | Outpatient (AMB) | payer OTHER, SELFPAY ==
[2023-11-14 11:01] VITALS: BP 118/62; PULSE 80; O2SAT 98; BMI 20.6
--- NOTE | 2023-11-14 11:01 | A.OFFPC_ITS ---
Vital Signs 11/14/23 11:01 Height 5 ft 1 in Weight 109 lb BMI 20.6 BP 118/62 Blood Pressure Location Lt brachial Position Sitting Pulse 80 Pulse Source Pulse Oximeter Pulse Oximetry (%) 98 Oxygen Delivery Method Room Air Intake Visit Reasons: Status post gastric bypass Intake Note: Patient believes she has a blockage in her intestine. Has not been able to go to the bathroom for over 5 days. Can not hold anything down. Abdomen pain on right side. Was seen at [facility] [place] [facility] and was given an enema and Tylenol and sent home. She still did not use the bathroom after the enema. Allergies hydrocodone [HYDROCODONE] Allergy (Severe, Verified 11/14/23 11:01) RASH, AIRWAY CLOSES ibuprofen [From MOTRIN] Allergy (Intermediate, Verified 11/14/23 11:01) STOMACH UPSET, vomiting trazodone [TRAZODONE] Allergy (Intermediate, Verified 11/14/23 11:01) stomach upset/anxiety tomato [TOMATO] Allergy (Mild, Verified 11/14/23 11:01) HIVES DIFFICULTY BREATHING egg Allergy (Verified 11/14/23 11:01) Swelling black pepper [BLACK PEPPER] Adverse Reaction (Severe, Verified 11/14/23 11:01) DIFFICULTY BREATHING, hives lisinopril Adverse Reaction (Severe, Verified 11/14/23 11:01) Anaphylaxis Tobacco use date assessed: 11/14/23 Dental Screening Dental Screen Date: 11/14/23 Did you have a dental visit in the last 12 months?: Yes Did you have a dental problem in the last 6 months where you did not have access to dental care?: No Was dental information given to patient?: Patient has dentist HPI Status post gastric bypass HPI Details 43-year-old female with a history of gas tric sleeve procedure September 2021 hypertension hypercholesterolemia GERD generalized anxiety disorder coming in for follow-up. Last seen in July 2023. ER visit 3 days ago for constipation and was prescribed MiraLax. In October also had an ultrasound done showing a left adnexal cyst. October 20 ER visit for abdominal pain had a CT scan done with no abnormalities noted. No inflammatory changes obstruction has diverticular disease diagnosis of gastroenteritis. Patient was seen by the despatching and receiving clerk in September dysphagia had an EGD done in February 2023 and grade C esophagitis with narrowing of the lumen noted esophageal ulcer at the GE junction spontaneously oozing was placed on PPI, H2 eldon and Carafate. Planned barium swallow continuing with PPI EGD. August ER visit for abdominal pain diagnosis of hypoglycemia after GI surgery enterocolitis. PAtient has been using lactulose and still not working - has not had BP PFSH Medical History Type 2 diabetes mellitus with hyperglycemia Vision changes Gastritis Tongue sore Right ear pain Numbness of left hand History of bipolar disorder History of schizophrenia 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 Spondylosis of lumbar spine Diverticulosis Insomnia Vitamin D deficiency GERD (gastroesophageal reflux disease) Carpal tunnel syndrome Hypercholesterolemia Renal calculi Hypertension Alcohol abuse Anxiety and depression Surgical History History of esophagogastroduodenoscopy (EGD) Hx of colonoscopy Hx of bariatric surgery History of tubal ligation H/O: hysterectomy Family History Father Medical history unknown Mother Medical history unknown Paternal Aunt Uterine cancer Diabetes Hypertension Paternal Uncle Liver cancer Heart attack Lung cancer Maternal Aunt Stroke Family/Other Chronic mental illness Sister Uterine cancer Schizophrenia Brother Substance abuse Paternal Grandmother Lung cancer Other Mental health disorder Social History Household Members: None Housing: Apartment Do you presently have visiting nurse or other home services: Yes Alcohol intake: never Patient Tobacco Use Status: Former Tobacco user Tobacco use type: Cigarette e-Cigarette/Vaping Use: Never Used Second Hand Smoke Exposure: No Substance Use Type: Marijuana service: No Current occupational status: disabled Current occupational exposures/hazards: No Cognitive needs: No Hearing needs: No Vision needs: Yes Female Reproductive History Menstrual Age of Menarche: 11 Questionnaire PHQ-9 Over the last 2 weeks, how often have you been bothered by any of the following problems? 1. Little interest or pleasure in doing things: several days 2. Feeling down, depressed, or hopeless: several days 3. Trouble falling or staying asleep, or sleeping too much: several days 4. Feeling tired or having little energy: several days 5. Poor appetite or overeating: several days 6. Feeling bad about yourself - or that you are a failure or have let yourself or your family down: not at all 7. Trouble concentrating on things, such as reading the newspaper or watching television: not at all 8. Moving or speaking so slowly that other people could have noticed. Or the opposite - being so fidgety or restless that you have been moving around a lot more than usual: not at all 9. Thoughts that you would be better off or of hurting yourself in some way: not at all Total score: 5 Depression Screening Interpretation: Positive Depression Screening Done: Yes 64205 - PHQ-9 Billing: Yes Source: Developed by Drs. Dinesh Freire, Niru Dimas, Denys Dodson and colleagues, with an educational mihai from [employer]. Thrive Questionnaire Date Thrive assessed: 11/14/23 I am a: Patient What is your living situation today?: I have a steady place to live Within the past 12 months, did the food you bought not last and you didn't have the money to get more?: Never true Within the past 12 months, did you worry whether your food would run out before you got money to buy more?: Never true Do you have trouble paying for medicines?: No Do you have trouble getting transportation to medical appointments?: No Do you have trouble paying your heating and electricity bill?: No Do you have trouble taking care of your child, family member or friend?: No Do you have trouble with day-to-day activities such as bathing, preparing meals, shopping, managing finances, etc.?: No Are you currently unemployed and looking for a job?: No Are you interested in more education?: No Currently or been in a relationship where the following occur: no concerns reported THRIVE Score: 0 AUDIT C Alcohol Use Questionnaire (AUDIT-C) 1. How often do you have a drink containing alcohol?: Never Total Score: 0 Score Reviewed/Action Taken: No JUDITH-7 AMB Questionnaire JUDITH-7 Date JUDITH - 7 assessed: 11/14/23 Feeling nervous, anxious, or on edge: 1 = Several days Not being able to stop or control worryin = Several days Worrying too much about different things: 1 = Several days Trouble relaxin = Several days Being so restless that it is hard to sit still: 1 = Several days Becoming easily annoyed or irritable: 1 = Several days Feeling afraid as if something awful might happen: 1 = Several days Total JUDITH-7 score (0-4 normal; 5-9 mild; 10-14 moderate; 15-21 severe): 7 Source: Developed by Drs. Dinesh Freire, Niru Dimas, Denys Dodson and colleagues, with an educational mihai from [employer]. Physical exam (Primary Care) Vital Signs: Last Vital Signs Pulse 80 11/14/23 11:01 BP 118/62 11/14/23 11:01 Pulse Ox 98 11/14/23 11:01 Oxygen Delivery Method Room Air 11/14/23 11:01 BMI result Body Mass Index 20.6 Tobacco/Smoking Status: Tobacco use Status Tobacco use date assessed 11/14/23 11/14/23 11:12 Patient Tobacco Use Status Former Tobacco user 11/14/23 11:12 Tobacco use type Cigarette 11/14/23 11:12 e-Cigarette/Vaping Use Never Used 11/14/23 11:12 PHQ-9: PHQ-9 Score PHQ-9: Total score 5 11/14/23 11:12 Depression Screening Interpretation: Positive Thrive Assessment: Date of Thrive Assessment Date Thrive assessed 11/14/23 11/14/23 11:12 Currently or been in a relationship where the following occur: no concerns reported Const General: alert; No acute distress Eyes Conjunctivae: conjunctivae normal Resp Auscultation: clear to auscultation bilaterally Cardio Rate: regular rate Rhythm: regular rhythm GI Inspection: Yes normal to inspection Extrem General: Yes normal to inspection and No edema Assessment and Plan Assessment & Plan (1) S/P gastric sleeve procedure: Comment: 10/19/21 - Bhavna assisted gastric sleeve gastrectomy by Dr. Americo GUTIERRES laparoscopic sleeve converted to gastric bypass under 07/27/2023. Code(s): Z90.3 - Acquired absence of stomach [part of] Plan: Continue to follow-up with bariatric surgeon (2) Gastric ulcer: Code(s): K25.9 - Gastric ulcer, unspecified as acute or chronic, without hemorrhage or perforation Plan: Continue with proton pump inhibitor (3) Hypertension: Code(s): I10 - Essential (primary) hypertension Qualifiers: Hypertension type: essential hypertension Qualified Code(s): I10 - Essential (primary) hypertension Plan: Continue with blood pressure medication. Decrease salt intake and exercise patient's blood pressure has been under control after the weight loss (4) Hypercholesterolemia: Code(s): E78.00 - Pure hypercholesterolemia, unspecified Plan: Avoid fried foods, chicken skin, eggs, butter margarine, pastries and meat. Be it pork or beef they have a lot of cholesterol January 2023 cholesterol has come down to normal (5) GERD (gastroesophageal reflux disease): Code(s): K21.9 - Gastro-esophageal reflux disease without esophagitis Plan: Avoid the foods that causes that usually spicy foods, tomato products, juices, coffee, soda and foods that your sensitive to. After eating do not lie down, allow 3-4 hours before in lie down. And keep the head of bed above 30 degrees t o avoid the acid from going up. (6) Constipation: Code(s): K59.00 - Constipation, unspecified Plan: Three rules for constipation 1. Diet need to have a high fiber diet less of meat 2. Increase oral fluids 3. Exercise patient has been prescribed the lactulose again as well as was given Dulcolax suppositories to help with the bowel movement. Medications: New bisacodyl (Dulcolax (bisacodyl)) 10 mg ME DAILY PRN 30 ea 0RF constipation K59.00 - Constipation, unspecified lactulose 30 grams (45 mL) PO BID 3,000 mL 0RF K59.00 - Constipation, unspecified Coding Level of Care Code Est Pt Level 4 (14531) Diagnoses S/P gastric sleeve procedure Z90.3 Gastric ulcer K25.9 Essential hypertension I10 Hypertension type: essential hypertension Hypercholesterolemia E78.00 Gastroesophageal reflux disease without esophagitis K21.9 Constipation K59.00
== END 2023-11-14 11:48 | disposition home or self-care (01) ==
PROVIDERS: PCP Internal Medicine; Visit Provider Internal Medicine
DX: I10 Essential (primary) hypertension (principal); Z90.3 Acquired absence of stomach [part of]; K25.9 Gastric ulcer, unspecified as acute or chronic, without hemorrhage or perforation; E78.00 Pure hypercholesterolemia, unspecified; K21.9 Gastro-esophageal reflux disease without esophagitis; K59.00 Constipation, unspecified
CPT/HCPCS: 99214

== ENCOUNTER 2023-11-19 08:56 | Emergency (ER) | payer OTHER, SELFPAY ==
--- NOTE | ~2023-11-19 | CT_ITS ---
EXAMINATION: CT ABDOMEN AND PELVIS WITHOUT CONTRAST CLINICAL INFORMATION: Small bowel obstruction COMPARISON: [facility] 11/11/2023, CT abdomen pelvis 10/21/2023 TECHNIQUE: Multidetector volumetric imaging was performed from the superior aspect of the liver through the pubic symphysis. Sagittal and coronal reformatted images were obtained on the technologist's workstation. This CT examination was performed using dose optimization techniques as appropriate, variously including the following: *Automated exposure control *Adjustment of mA and/or kV according to patient size (this includes techniques or standardized protocols for targeted exams where dose is matched to indication/reason for exam; i.e. extremities or head) *Use of iterative reconstruction technique DLP: 330 mGy-cm FINDINGS: LUNG BASES: The visualized lung bases are unremarkable. LIVER, GALLBLADDER, AND BILIARY TREE: The liver is normal in size, shape, and attenuation. No focal hepatic lesion or biliary ductal dilatation is present. The gallbladder is unremarkable with no evidence of radiopaque gallstones, gallbladder wall thickening, or obvious pericholecystic inflammatory changes. PANCREAS: Unremarkable. SPLEEN: Unremarkable. ADRENAL GLANDS: Unremarkable. KIDNEYS AND URETERS: The kidneys are normal in size, shape, and attenuation. No hydronephrosis, hydroureter, or calculi seen. No perinephric stranding. BLADDER: Unremarkable. GASTROINTESTINAL TRACT: Status post gastric bypass. Moderate stool burden is present throughout the colon along with colonic diverticula without evidence of diverticulitis. The small and large bowel are otherwise unremarkable. The appendix is unremarkable. ABDOMINAL WALL: No significant hernia is appreciated. LYMPH NODES: No retroperitoneal lymphadenopathy. VASCULAR: Unremarkable. PELVIC VISCERA: Unremarkable. OSSEOUS STRUCTURES: Unremarkable. CT/CT abdomen pelvis wo IV con IMPRESSION: 1. There is no small bowel obstruction. 2. Incidental note made of gastric bypass, moderate stool burden and colonic diverticulosis without diverticulitis. Fleischner guidelines were followed.
[2023-11-19 09:21] VITALS: BP 160/107; PULSE 83; RESP 18; TEMP 36.3; O2SAT 96; BMI 20.6
[2023-11-19 10:06] LABS: MANUAL DIFF FLAG NO
[2023-11-19 10:08] LABS: Basophils Absolute Auto 0.1 X10*3/uL (0.0-0.2); Basophils Percent Auto 1.2 % (0-2); Eosinophils Absolute Auto 0.2 X10*3/uL (0.0-0.4); Eosinophils Percent Auto 3.3 % (0-4); Hematocrit 39.2 % (37.0-47.0); Hemoglobin 13.2 g/dl (12.0-16.0); Imm Gran Abs Auto 0.01 X10*3/uL (0.00-0.03); Imm Gran Pct Auto 0.2 % (0.0-0.4); Lymphocytes Absolute Auto 1.4 X10*3/uL (1.2-4.9); Mean Corpuscular HGB Conc 33.7 g/dl (31.0-35.0); Mean Corpuscular Hemoglobin 29.7 pg (27.0-33.0); Mean Corpuscular Volume 88.3 fL (80.0-98.0); Mean Platelet Volume 9.6 fL (9.4-12.3); Monocytes Absolute Auto 0.5 X10*3/uL (0.1-1.2); Monocytes Percent Auto 9.4 % (2-11); Neutrophils Absolute Auto 2.9 x10*3/uL (2.0-8.3); Neutrophils Percent Auto 57.9 % (45-73); Platelet Count 330 X10*3/uL (160-400); Red Blood Count 4.44 X10*6/uL (4.20-5.50); White Blood Count 5.1 X10*3/uL (4.8-10.8)
[2023-11-19 10:25] LABS: Alanine Aminotransferase 11 U/L (0-31); Albumin Level 4.5 g/dL (3.5-5.0); Alkaline Phosphatase 64 U/L (39-117); Anion Gap 10 (12-20); Aspartate Amino Transferase 16 U/L (5-31); Bilirubin Total 0.6 mg/dL (0.0-1.0); Blood Urea Nitrogen 12 mg/dL (9-16); Calcium 9.4 mg/dL (8.4-10.2); Carbon Dioxide 31 mmol/L (22-29); Chloride 102 mmol/L (96-108); Creatinine Clr Calc Pharmacy 109.3; Estimated Glomerular Filt Rate > 60; Glucose Random 83 mg/dL (60-115); Potassium 3.9 mmol/L (3.3-5.1); Sodium 139 mmol/L (135-145); Total Protein 7.3 g/dL (6.5-8.0)
--- NOTE | 2023-11-19 13:47 | ED_ITS ---
HPI - Abdominal Pain General Chief Complaint: Abdominal Pain Stated Complaint: stomach pain Time Seen by Provider: 11/19/23 13:47 Source: patient Mode of arrival: ambulatory Limitations: no limitations History of Present Illness HPI narrative: Patient comes to emergency room complaining of 3 weeks of constipation. Patient states that she takes Linzess, MiraLax, Dulcolax without any relief. Patient states that she is taking Tylenol with any pain relief. Patient was seen here about a week ago with the same complaint. Related Data Home Medications ?Medication ?Instructions ?Recorded ?Confirmed blood sugar diagnostic (Formerly [facility], 1928–1983 08/15/22 08/08/23 Verio test strips) blood-glucose meter (Formerly [facility], 1928–1983 08/15/22 08/08/23 Verio Meter) lancets 33 gauge [facility] 08/15/22 08/08/23 Lancets) triamcinolone acetonide 0.1 % 1 appl topical DAILY 02/07/23 08/08/23 topical cream zolpidem 10 mg tablet 10 mg PO BEDTIME PRN Insomnia 02/07/23 08/08/23 simethicone 80 mg chewable tablet 160 mg PO BID 08/07/23 08/08/23 (Gas Relief (simethicone)) ursodiol 300 mg capsule 300 mg PO BID 08/07/23 08/08/23 clonazepam 1 mg tablet 1 mg PO TID 08/08/23 08/08/23 Previous Rx's ?Medication ?Instructions ?Recorded BATH CHAIR #1 ea 01/31/22 CANE #1 ea 01/31/22 LIFELINE ALERT SYSTEM #1 ea 01/31/22 WRIST BRACE #1 ea 01/31/22 ALCOHOL PADS #100 ea 02/21/22 SHOWER BAR #1 ea 06/08/22 SHOWER WAND #1 ea 06/08/22 Bed pads #100 ea 07/17/22 Bedside commode #1 ea 07/17/22 SANITARY PADS #100 ea 07/17/22 food supplemt, lactose-reduced 0.1 1 ea PO TID #1,184 mL 01/29/23 gram-1.18 kcal/mL oral liquid (Ensure Complete) polyethylene glycol 3350 17 gram 17 g PO DAILY #14 ea 01/31/23 oral powder packet (Miralax) ondansetron 4 mg disintegrating 4 mg PO Q8H nausea and vomiting 03/03/23 tablet #20 tabs sumatriptan 5 mg/actuation nasal 5 mg intranasal Q2-4H PRN migraine 03/03/23 spray headache #6 ea Miracle Mouthwash-Alan 240 mL 15 ml PO BID #240 mL 03/16/23 liquid uglmsuphq-eiaalfyvo-wsyzribd-scop 5 ml PO BID PRN indigestion #50 mL 03/16/23 16.2 mg-0.1037 mg/5 mL (5 mL) elixir () prochlorperazine 25 mg rectal 25 mg NM Q12H PRN nausea and 03/16/23 suppository (Compro) vomiting #12 ea cyclobenzaprine 5 mg tablet 5 mg PO Q8H PRN pain (scale score 03/20/23 7-10) 5 days #14 tabs multivit-minerals no.73-iron 1 cap PO DAILY #30 caps 04/16/23 fumarate 106 mg-folic acid 1 mg capsule acetaminophen 160 mg/5 mL oral 320 mg (10 mL) PO Q6H PRN fever or 05/23/23 liquid pain #473 mL ROLLATOR #1 ea 06/28/23 famotidine 20 mg tablet (Pepcid) 20 mg PO BID 10 days #20 tabs 07/18/23 simethicone 40 mg/0.6 mL oral 0.6 ml PO BID-TID PRN abdominal 08/02/23 drops,suspension distention #15 mL blood pressure monitor (Blood #1 ea 08/06/23 Pressure Kit) fluticasone propionate 50 1 spray intranasal DAILY #100 mL 08/08/23 mcg/actuation nasal spray,suspension (Flonase Allergy Relief) linaclotide 290 mcg capsule 290 mcg PO DAILY #30 caps 08/08/23 (Linzess) sodium,potassium,mag sulfates 17.5 See Rx Instructions PO .COMPLEX 10/03/23 gram-3.13 gram-1.6 gram oral soln #354 mL (Suprep Bowel Prep Kit) pantoprazole 40 mg tablet,delayed 40 mg PO BID 90 days #180 tabs 10/07/23 release aluminum-mag hydroxide-simethicone 5 ml PO 5XD PRN indigestion #355 mL 10/10/23 200 mg-200 mg-20 mg/5 mL oral susp (Maalox Advanced) polyethylene glycol 3350 17 17 g PO BID #850 grams 11/11/23 gram/dose oral powder (Miralax) sucralfate 100 mg/mL oral 10 ml PO QID #840 mL 11/13/23 suspension (Carafate) bisacodyl 10 mg rectal suppository 10 mg NM DAILY PRN constipation 11/14/23 (Dulcolax (bisacodyl)) #30 ea lactulose 20 gram/30 mL oral 30 g (45 mL) PO BID #3,000 mL 11/14/23 solution tramadol 50 mg tablet 50 mg PO TID PRN pain 30 days #90 11/15/23 tabs sodium phosphates 19 gram-7 197 ml NM DAILY 1 day #133 mL 11/19/23 gram/118 mL enema (Fleet Enema) Allergies Allergy/AdvReac Type Severity Reaction Status Date / Time hydrocodone [HYDROCODONE] Allergy Severe RASH, Verified 11/19/23 09:21 AIRWAY CLOSES ibuprofen [From MOTRIN] Allergy Intermediate STOMACH Verified 11/19/23 09:21 UPSET, vomiting trazodone [TRAZODONE] Allergy Intermediate stomach Verified 11/19/23 09:21 upset/anxiety tomato [TOMATO] Allergy Mild HIVES Verified 11/19/23 09:21 DIFFICULTY BREATHING egg Allergy Swelling Verified 11/19/23 09:21 black pepper [BLACK PEPPER] AdvReac Severe DIFFICULTY Verified 11/19/23 09:21 BREATHING, hives lisinopril AdvReac Severe Anaphylaxis Verified 11/19/23 09:21 Review of Systems Review of Systems Constitutional : No Weight loss, No Fever, No Chills, No Night Sweats, No Fatigue, No Malaise ENT/Mouth : No Hearing loss, No Ear Pain, No Nasal Congestion, No Sinus Pain, No Hoarseness, No sore throat, No Rhinorrhea, No Swallowing Difficulty Eyes: No Eye Pain, No Swelling, No Redness, No Foreign Body, No Discharge, No Vision Changes Cardiovascular : No Chest Pain, No SOB, No Dyspnea on Exertion, No Orthopnea, No Edema, No Palpitations Respiratory : No Cough, No Sputum, No Wheezing, No Smoke Exposure, No Dyspnea Gastrointestinal : No Nausea, No Vomiting, No Diarrhea, complaining of Constipation, abdominal discomfort, no melena Genitourinary : no irregular bleeding, No Dysuria, No Urinary Frequency, No Hematuria, No Urinary Incontinence, No Urgency, No Flank Pain, No Urinary Flow Changes, No Hesitancy Musculoskeletal : No joint pain, No Myalgias, No Joint Swelling Skin : No Skin Lesions, No rash Neuro : No Weakness, No Numbness, No Paresthesias, No Loss of Consciousness, No Dizziness, No Headache Psych : No Anxiety/Panic, No Depression, No SI/HI/AH/VH, No Social Issues, Heme/Lymph: No Bruising, No Bleeding,No Lymphadenopathy Endocrine : No Polyuria, No Polydipsia, No Temperature Intolerance [facility] Past Medical History Medical History Type 2 diabetes mellitus with hyperglycemia Vision changes Gastritis Tongue sore Right ear pain Numbness of left hand History of bipolar disorder History of schizophrenia 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 Spondylosis of lumbar spine Diverticulosis Insomnia Vitamin D deficiency GERD (gastroesophageal reflux disease) Carpal tunnel syndrome Hypercholesterolemia Renal calculi Hypertension Alcohol abuse Anxiety and depression Surgical History History of esophagogastroduodenoscopy (EGD) Hx of colonoscopy Hx of bariatric surgery History of tubal ligation H/O: hysterectomy Family History Family History Father Medical history unknown Mother Medical history unknown Paternal Aunt Uterine cancer Diabetes Hypertension Paternal Uncle Liver cancer Heart attack Lung cancer Maternal Aunt Stroke Family/Other Chronic mental illness Sister Uterine cancer Schizophrenia Brother Substance abuse Paternal Grandmother Lung cancer Other Mental health disorder Social History Social History Household Members: None Housing: Apartment Do you presently have visiting nurse or other home services: Yes Alcohol intake: current Alcohol intake frequency: a few times a month Alcohol type: beer Patient Tobacco Use Status: Former Tobacco user Tobacco use type: Cigarette Smoked in Last 30 Days: No e-Cigarette/Vaping Use: Never Used Second Hand Smoke Exposure: No Use of substances other than those prescribed or required for medical reasons: No Substance Use Type: Marijuana Advance Directives: No Advance Directives Information Provided: No Patient : No service: No Current occupational status: disabled Current occupational exposures/hazards: No Cognitive needs: No Hearing needs: No Vision needs: Yes Physical Exam ED Vital Signs: Vital Signs - 24 hr 11/19/23 09:21 11/19/23 14:22 Temperature 97.3 F 97.9 F Pulse Rate 83 62 Respiratory Rate 18 16 Blood Pressure 160/107 H 129/74 Pulse Oximetry 96 100 Oxygen Delivery Method Room Air Room Air BMI result Body Mass Index 20.6 Const Other: Appearance: Alert. Oriented X3. No acute distress. Eyes: Pupils equal, round and reactive to light. ENT: Pharynx normal. Neck: Normal inspection. Neck supple. No lymph nodes noted. No crepitus CVS: Normal heart rate and rhythm. Pulses normal. Normal S1 and S2 Respiratory: No respiratory distress. Breath sounds normal. No Wheezing. No rales Abdomen: Soft and nontender. No rigidity. No distention. Skin: Skin warm and dry. Normal skin color. Normal skin turgor. Extremities: No lower extremity edema. No Lacerations. No Rash Neuro: Oriented X 3. No motor deficit. No sensory deficit. Moving all extremities. No slurred speech. CN 2 through 12 grossly intact Psych: calm, cooperative, normal affect Course Course Course Narrative: Patient requesting morphine for her abdominal pain secondary to constipation. I discussed with the patient that morphine will make her more constipated and would worsen the problem. Medical Decision Making Medical Decision Making [facility] Narrative: -my interpretation of labs, normal hematology, normal chemistry, normal LFTs -physical exam is reassuring, patient did not have rigidity, rebound or guarding. -my interpretation of CT scan of the abdomen: No SBO. -overall patient feeling better -since patient is already taking several medications p.o., enemas will be sent to the patient's pharmacy. Differential Diagnosis Differential Diagnoses: The differential diagnosis associated with the presentation includes (SBO, constipation) Admission/Observation Consideration of admission/observation: Escalation of care including admission/observation considered (SBO, constipation, gastritis, peptic ulcer disease) Lab Data [facility] Lab Attestation statement: I reviewed the patient's lab results. 11/19/23 10:01 11/19/23 10:01 Labs: Lab Results 11/19/23 11/19/23 11/19/23 Range/Units 10:01 13:49 14:19 WBC 5.1 (4.8-10.8) X10*3/uL RBC 4.44 (4.20-5.50) X10*6/uL Hgb 13.2 (12.0-16.0) g/dl Hct 39.2 (37.0-47.0) % MCV 88.3 (80.0-98.0) fL MCH 29.7 (27.0-33.0) pg MCHC 33.7 (31.0-35.0) g/dl RDW 14.0 (11.0-16.0) % Plt Count 330 (160-400) X10*3/uL MPV 9.6 (9.4-12.3) fL Immature Gran % (Auto) 0.2 (0.0-0.4) % Neut % (Auto) 57.9 (45-73) % Lymph % (Auto) 28.0 (20-40) % [place] % (Auto) 9.4 (2-11) % Eos % (Auto) 3.3 (0-4) % Baso % (Auto) 1.2 (0-2) % Lymph # (Auto) 1.4 (1.2-4.9) X10*3/uL [place] # (Auto) 0.5 (0.1-1.2) X10*3/uL Eos # (Auto) 0.2 (0.0-0.4) X10*3/uL Baso # (Auto) 0.1 (0.0-0.2) X10*3/uL Abs Immat Gran (auto) 0.01 (0.00-0.03) X10*3/uL Absolute Neuts (auto) 2.9 (2.0-8.3) x10*3/uL Absolute Nucleated RBC 0.000 (0.0-0.012) X10*3/uL Nucleated RBC % (auto) 0.0 (0.0-0.2) /100WBC Sodium 139 (135-145) mmol/L Potassium 3.9 (3.3-5.1) mmol/L Chloride 102 (96-108) mmol/L Carbon Dioxide 31 H (22-29) mmol/L Anion Gap 10 L (12-20) BUN 12 (9-16) mg/dL Creatinine 0.57 (0.5-1.4) mg/dL Estim Creat Clear Calc 109.3 Estimated GFR > 60 Random Glucose 83 (60-115) mg/dL Calcium 9.4 (8.4-10.2) mg/dL Total Bilirubin 0.6 (0.0-1.0) mg/dL AST 16 (5-31) U/L ALT 11 (0-31) U/L Alkaline Phosphatase 64 (39-117) U/L Total Protein 7.3 (6.5-8.0) g/dL Albumin 4.5 (3.5-5.0) g/dL Urine Color Yellow Urine Appearance Cloudy Urine pH 6.0 (5.0-9.0) Ur Specific [place] 1.025 (1.005-1.025) Urine Protein Trace (Neg-Trace) mg/dL Urine Glucose (UA) Negative (Negative) mg/dL Urine Ketones Negative (Negative) mg/dL Urine Blood Negative (Negative) Urine Nitrite Negative (Negative) Ur Leukocyte Esterase Negative (Negative) Urine Test NEGATIVE (NEGATIVE) Urine Opiates Screen Not Detected (Not Detect) Ur Buprenorphine Scrn Not Detected (Not Detect) ng/mL Ur Oxycodone Screen Not Detected (Not Detect) ng/mL Urine Methadone Screen Not Detected (Not Detect) ng/mL Urine Fentanyl Screen Not Detected (Not Detect) Ur Barbiturates Screen Not Detected (Not Detect) Ur Phencyclidine Scrn Not Detected (Not Detect) Ur Amphetamines Screen Not Detected (Not Detect) U Benzodiazepines Scrn Not Detected (Not Detect) Urine Cocaine Screen Not Detected (Not Detect) U Marijuana (THC) Screen Not Detected (Not Detect) Ethyl Alcohol < 10 mg/dL Independent Interpretation I performed an independent interpretation of an: CT Scan Radiology Impression Discussion of test interpretation with radiology: I have reviewed the radiologist's reading. Radiologist Impression: FINDINGS: LUNG BASES: The visualized lung bases are unremarkable. LIVER, GALLBLADDER, AND BILIARY TREE: The liver is normal in size, shape, and attenuation. No focal hepatic lesion or biliary ductal dilatation is present. The gallbladder is unremarkable with no evidence of radiopaque gallstones, gallbladder wall thickening, or obvious pericholecystic inflammatory changes. PANCREAS: Unremarkable. SPLEEN: Unremarkable. ADRENAL GLANDS: Unremarkable. KIDNEYS AND URETERS: The kidneys are normal in size, shape, and attenuation. No hydronephrosis, hydroureter, or calculi seen. No perinephric stranding. BLADDER: Unremarkable. GASTROINTESTINAL TRACT: Status post gastric bypass. Moderate stool burden is present throughout the colon along with colonic diverticula without evidence of diverticulitis. The small and large bowel are otherwise unremarkable. The appendix is unremarkable. ABDOMINAL WALL: No significant hernia is appreciated. LYMPH NODES: No retroperitoneal lymphadenopathy. VASCULAR: Unremarkable. PELVIC VISCERA: Unremarkable. OSSEOUS STRUCTURES: Unremarkable. CT/CT abdomen pelvis wo IV con IMPRESSION: 1. There is no small bowel obstruction. 2. Incidental note made of gastric bypass, moderate stool burden and colonic diverticulosis without diverticulitis. Fleischner guidelines were followed Medications Administered Discontinued Medications Generic Name Dose Route Start Last Admin Trade Name Freq PRN Reason Stop Dose Admin Sodium Chloride 1,000 mls @ 999 mls/hr 11/19/23 14:05 11/19/23 14:21 Ns IVCONT 11/19/23 15:05 999 mls/hr .Q1H1M ONE Administration Critical Care Time Critical Care Time Critical Care Time: Yes Total Critical Care Time: 45 Attestation: I have personally provided critical care time. Time includes review of lab data, radiology results, discussion with consultants, and monitoring for potential decompensation. Intervention performed as documented. Discharge Plan Discharge Clinical Impression: Constipation Patient Disposition: Home, Self-Care Instructions: Constipation (ED), Fleet Enema (ED) Additional Instructions: Please follow-up with your primary care physician tomorrow. If you have any worsening or new symptoms, please return to the emergency room or call 911 Prescriptions: New Fleet Enema 19-7 gram/118 mL enema 197 ml NM DAILY 1 Days Qty: 133 2RF No Action (DME) CANE See Rx Instructions .Route .MEDSUPPLY Qty: 1 0RF Rx Instructions: As directed (DME) WRIST BRACE See Rx Instructions .Route .MEDSUPPLY Qty: 1 0RF Rx Instructions: As directed (DME) BATH CHAIR See Rx Instructions .Route .MEDSUPPLY Qty: 1 0RF Rx Instructions: As directed (DME) LIFELINE ALERT SYSTEM See Rx Instructions .Route .MEDSUPPLY Qty: 1 0RF Rx Instructions: As directed (DME) ALCOHOL PADS See Rx Instructions .Route .MEDSUPPLY Qty: 100 3RF Rx Instructions: As directed (DME) SHOWER WAND See Rx Instructions .Route .MEDSUPPLY Qty: 1 0RF Rx Instructions: As directed (DME) SHOWER BAR See Rx Instructions .Route .MEDSUPPLY Qty: 1 0RF Rx Instructions: As directed (DME) Bedside commode See Rx Instructions .Route .MEDSUPPLY Qty: 1 0RF Rx Instructions: As directed (DME) Bed pads See Rx Instructions .Route .MEDSUPPLY Qty: 100 12RF Rx Instructions: As directed ([facility]) SANITARY PADS See Rx Instructions .Route .MEDSUPPLY Qty: 100 12RF Rx Instructions: As directed Ensure Complete 0.1 gram-1.18 kcal/mL liquid 1 ea PO TID Qty: 1184 12RF polyethylene glycol 3350 [Miralax] 17 gram powder in packet 17 g PO DAILY Qty: 14 3RF Rx Instructions: Use daily until you have a normal bowel movement, then stop. ([facility]) ROLLATOR See Rx Instructions .Route .MEDSUPPLY Qty: 1 0RF Rx Instructions: As directed simethicone 40 mg/0.6 mL drops,suspension 0.6 ml PO BID-TID PRN (Reason: abdominal distention) Qty: 15 0RF (DME) blood pressure monitor [Blood Pressure Kit] Kit See Rx Instructions .Route Qty: 1 0RF Rx Instructions: As directed pantoprazole 40 mg tablet,delayed release (DR/EC) 40 mg PO BID 90 Days Qty: 180 1RF alum-mag hydroxide-simeth [Maalox Advanced] 200-200-20 mg/5 mL suspension 5 ml PO 5XD PRN (Reason: indigestion) Qty: 355 4RF Rx Instructions: administer between meals and at bedtime sucralfate [Carafate] 100 mg/mL suspension 10 ml PO QID Qty: 840 0RF tramadol 50 mg tablet 50 mg PO TID PRN (Reason: pain) 30 Days Qty: 90 0RF ondansetron 4 mg tablet,disintegrating 4 mg PO Q8H Qty: 20 0RF sumatriptan 5 mg/actuation spray,non-aerosol 5 mg intranasal Q2-4H PRN (Reason: migraine headache) Qty: 6 1RF Rx Instructions: into each nostril once; if headache remains, may repeat total dose once after at least 2 hours cyclobenzaprine 5 mg tablet 5 mg PO Q8H PRN (Reason: pain (scale score 7-10)) 5 Days Qty: 14 0RF famotidine [Pepcid] 20 mg tablet 20 mg PO BID 10 Days Qty: 20 0RF polyethylene glycol 3350 [Miralax] 17 gram/dose powder 17 g PO BID Qty: 850 0RF prochlorperazine [Compro] 25 mg suppository 25 mg NM Q12H PRN (Reason: nausea and vomiting) Qty: 12 0RF Miracle Mouthwash-Alan 240 mL liquid 15 ml PO BID Qty: 240 0RF Rx Instructions: Nystatin susp 80 mL;Lidocaine 2% Visc 80 mL; Maalox 80 mL; Swish and spit pxljlirab-efcllo-vxigzeqw-scop [] 16.2 mg-0.1037 mg/5 mL (5 mL) elixir 5 ml PO BID PRN (Reason: indigestion) Qty: 50 0RF acetaminophen 160 mg/5 mL liquid 320 mg PO Q6H PRN (Reason: fever or pain) Qty: 473 0RF mv-mins no.73-iron fum-folic 106 mg iron- 1 mg capsule 1 cap PO DAILY Qty: 30 4RF clonazepam 1 mg tablet 1 mg PO TID fluticasone propionate [Flonase Allergy Relief] 50 mcg/actuation spray,suspension 1 spray intranasal DAILY Qty: 100 0RF Rx Instructions: administer into each nostril Linzess 290 mcg capsule 290 mcg PO DAILY Qty: 30 1RF bisacodyl [Dulcolax (bisacodyl)] 10 mg suppository 10 mg NM DAILY PRN (Reason: constipation) Qty: 30 0RF lactulose 20 gram/30 mL solution 30 g PO BID Qty: 3000 0RF (DME) blood-glucose meter [OneTouch Verio Meter] Misc See Rx Instructions .Route Rx Instructions: As directed (DME) OneTouch Verio test strips Strip See Rx Instructions .Route Rx Instructions: As directed 3 times a day (DME) lancets [OneTouch Delica Lancets] 33 gauge misc See Rx Instructions .Route Rx Instructions: As directed 3 times a day zolpidem 10 mg tablet 10 mg PO BEDTIME PRN (Reason: Insomnia) triamcinolone acetonide 0.1 % cream 1 appl topical DAILY ursodiol 300 mg capsule 300 mg PO BID simethicone [Gas Relief (simethicone)] 80 mg tablet,chewable 160 mg PO BID sodium,potassium,mag sulfates [Suprep Bowel Prep Kit] 17.5-3.13-1.6 gram recon soln See Rx Instructions PO .COMPLEX Qty: 354 0RF Rx Instructions: As per instructions from GI office Print Language: Tunisian
[2023-11-19 13:58] LABS: Appearance Urine Cloudy; Color Urine Yellow; Glucose Urine UA Negative (Negative); Leukocyte Esterase Urine Negative (Negative); Nitrite Urine Negative (Negative); Specific Gravity - Urine 1.025 (1.005-1.025); UPreg QC Valid YES; Urine Blood Negative (Negative); Urine Ketones Negative (Negative); Urine Pregnancy NEGATIVE (NEGATIVE); Urine Protein Trace mg/dL (Neg-Trace)
[2023-11-19 14:20] LABS: Amphetamine Screen Urine Not Detected (Not Detect); Barbiturates, Urine Not Detected (Not Detect); Benzodiazepines Screen Urine Not Detected (Not Detect); Buprenorphine Scr Not Detected (Not Detect); Cannabinoid Screen Urine Not Detected (Not Detect); Cocaine Screen Urine Not Detected (Not Detect); Fentanyl, urine Not Detected (Not Detect); Methadone Screen, Urine Not Detected (Not Detect); Opiate Screen Urine Not Detected (Not Detect); Oxycodone Screen Urine Not Detected (Not Detect); Phencyclidine Screen Urine Not Detected (Not Detect)
[2023-11-19] MEDS: 0.9 % Sodium Chloride 1,000 ML 999 ML IVCONT (14:21)
[2023-11-19 14:22] VITALS: BP 129/74; PULSE 62; RESP 16; TEMP 36.6; O2SAT 100
[2023-11-19 14:39] LABS: Ethanol < 10 mg/dL
[2023-11-19 17:16] VITALS: BP 137/90; PULSE 63; RESP 16; TEMP 36.8; O2SAT 98
== END 2023-11-19 17:16 | disposition home or self-care (01) ==
PROVIDERS: Emergency Provider Emergency Medicine; PCP Internal Medicine
DX: K59.00 Constipation, unspecified (principal); E11.9 Type 2 diabetes mellitus without complications; I10 Essential (primary) hypertension
CPT/HCPCS: 36415; 74176; 80053; 80307; 81003; 81025; 85025; 96360; 96361; 99284

== ENCOUNTER 2023-11-21 10:51 | Outpatient (AMB) | payer OTHER, SELFPAY ==
[2023-11-21 10:53] VITALS: BP 106/86; PULSE 86; BMI 19.9
--- NOTE | 2023-11-21 10:53 | MHC.OFFVIS ---
Vital Signs 11/21/23 10:53 Height 5 ft 4 in Weight 115 lb 15.41 oz BMI 19.9 BP 106/86 Blood Pressure Location Lt brachial Position Sitting Pulse 86 Pulse Source Pulse Oximeter Intake Visit Reasons: DM-confirmed Intake Note: Patient present today for Hypoglycemia follow up. Patient's A1c was 4.6% on 10/02/23. Power Reactor Supervisor Required: Yes Power Reactor Supervisor Language: Manager Creative Name: Kulwinder Information Interpreted: non-clinical & clinical Accompanied by: Self / Same As Patient Allergies hydrocodone [HYDROCODONE] Allergy (Severe, Verified 11/21/23 11:00) RASH, AIRWAY CLOSES ibuprofen [From MOTRIN] Allergy (Intermediate, Verified 11/21/23 11:00) STOMACH UPSET, vomiting trazodone [TRAZODONE] Allergy (Intermediate, Verified 11/21/23 11:00) stomach upset/anxiety tomato [TOMATO] Allergy (Mild, Verified 11/21/23 11:00) HIVES DIFFICULTY BREATHING egg Allergy (Verified 11/21/23 11:00) Swelling black pepper [BLACK PEPPER] Adverse Reaction (Severe, Verified 11/21/23 11:00) DIFFICULTY BREATHING, hives lisinopril Adverse Reaction (Severe, Verified 11/21/23 11:00) Anaphylaxis HPI Comments Details: This is a 43-year-old female status post bariatric surgery sleeve gastrectomy in 10/19/2021 . 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 During the course of the workup which included a fast, plasma hypoglycemia was unable to be provoked. A workup included during a insulin, C-peptide but at the time of drawer the patient's plasma glucose was not low making not interpretable. A Cortrosyn stimulation test was performed with a peak value of cortisol 16. And ACTH was slightly elevated. A repeat Cortrosyn stim test was normal. Patient reports . Off Acarbose . 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 Tried Extend Bar and didn't help. 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 Has been to [place] [facility]. Has follow-up in . Has a procedure on esophagus in 08/2022 FOR[facility]LY [facility], [facility] Medical History Type 2 diabetes mellitus with hyperglycemia Vision changes Gastritis Tongue sore Right ear pain Numbness of left hand History of bipolar disorder History of schizophrenia 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 Spondylosis of lumbar spine Diverticulosis Insomnia Vitamin D deficiency GERD (gastroesophageal reflux disease) Carpal tunnel syndrome Hypercholesterolemia Renal calculi Hypertension Alcohol abuse Anxiety and depression Surgical History History of esophagogastroduodenoscopy (EGD) Hx of colonoscopy Hx of bariatric surgery History of tubal ligation H/O: hysterectomy Family History Father Medical history unknown Mother Medical history unknown Paternal Aunt Uterine cancer Diabetes Hypertension Paternal Uncle Liver cancer Heart attack Lung cancer Maternal Aunt Stroke Family/Other Chronic mental illness Sister Uterine cancer Schizophrenia Brother Substance abuse Paternal Grandmother Lung cancer Other Mental health disorder Social History Household Members: None Housing: Apartment Do you presently have visiting nurse or other home services: Yes Alcohol intake: current Alcohol intake frequency: a few times a month Alcohol type: beer Patient Tobacco Use Status: Former Tobacco user Tobacco use type: Cigarette e-Cigarette/Vaping Use: Never Used Second Hand Smoke Exposure: No Substance Use Type: Marijuana service: No Current occupational status: disabled Current occupational exposures/hazards: No Cognitive needs: No Hearing needs: No Vision needs: Yes Female Reproductive History Menstrual Age of Menarche: 11 Assessment & Plan Assessment & Plan (1) Hypoglycemia: Code(s): E16.2 - Hypoglycemia, unspecified Category: Medical Plan This is a 43-year-old female with episodes of hypoglycemia post bariatric surgery. Hypoglycemia may be multifactorial and post-bariatric complicated by esophageal problems and lack of p.o. intake. She has had some recent point of cares have been low but random glucoses in the serum have been normal The plan is to reinitate the Dexcom and f/u with [facility] Coding Level of Care Code Est Pt Level 3 (17747) Diagnoses Hypoglycemia E16.2
== END 2023-11-21 11:09 | disposition home or self-care (01) ==
PROVIDERS: PCP Internal Medicine; Visit Provider Internal Medicine Endocrinology, Diabetes & Metabolism
DX: E16.2 Hypoglycemia, unspecified (principal)
CPT/HCPCS: 99213

== ENCOUNTER → 2023-11-21 10:51 | Outpatient (BNVA) | payer OTHER, SELFPAY | PROVIDERS: PCP Internal Medicine; Visit Provider Internal Medicine Endocrinology, Diabetes & Metabolism | DX: E16.2 Hypoglycemia, unspecified (principal) | CPT/HCPCS: 99212 ==

== ENCOUNTER 2023-12-18 07:59 | Outpatient (AMB) | payer OTHER, SELFPAY ==
[2023-12-18 08:10] VITALS: BP 110/70; PULSE 81; O2SAT 98; BMI 19.4
--- NOTE | 2023-12-18 08:10 | A.OFFPC_ITS ---
Vital Signs 12/18/23 08:10 Height 5 ft 4 in Weight 113 lb BMI 19.4 BP 110/70 Blood Pressure Location Lt brachial Position Sitting Pulse 81 Pulse Source Pulse Oximeter Pulse Oximetry (%) 98 Oxygen Delivery Method Room Air Intake Visit Reasons: AUD Follow Up Allergies hydrocodone [HYDROCODONE] Allergy (Severe, Verified 12/18/23 09:18) RASH, AIRWAY CLOSES ibuprofen [From MOTRIN] Allergy (Intermediate, Verified 12/18/23 09:18) STOMACH UPSET, vomiting trazodone [TRAZODONE] Allergy (Intermediate, Verified 12/18/23 09:18) stomach upset/anxiety tomato [TOMATO] Allergy (Mild, Verified 12/18/23 09:18) HIVES DIFFICULTY BREATHING egg Allergy (Verified 12/18/23 09:18) Swelling black pepper [BLACK PEPPER] Adverse Reaction (Severe, Verified 12/18/23 09:18) DIFFICULTY BREATHING, hives lisinopril Adverse Reaction (Severe, Verified 12/18/23 09:18) Anaphylaxis Medication List - Last Reconciled 12/18/23 by Ramiro Brown MD acetaminophen 320 mg (10 mL) PO Q6H PRN [ALCOHOL PADS As directed] alum-mag hydroxide-simeth 200-200-20 mg/5 mL (Maalox Advanced) 5 mL PO 5XD PRN [BATH CHAIR As directed] [Bed pads As directed] [Bedside commode As directed] bisacodyl (Dulcolax (bisacodyl)) 10 mg OK DAILY PRN blood pressure monitor (Blood Pressure Kit) As directed blood sugar diagnostic ([place] Verio test strips) As directed 3 times a day blood-glucose meter ([place] Verio Meter) As directed [CANE As directed] clonazepam 1 mg PO TID cyclobenzaprine 5 mg PO Q8H PRN 5 days disulfiram 250 mg PO DAILY famotidine (Pepcid) 20 mg PO BID 10 days fluticasone propionate 50 mcg/actuation (Flonase Allergy Relief) 1 spray intranasal DAILY food supplemt, lactose-reduced (Ensure Complete) 1 ea PO TID lactulose 30 grams (45 mL) PO BID lancets ([employer] Delica Lancets) As directed 3 times a day [[employer] ALERT SYSTEM As directed] linaclotide (Linzess) 290 mcg PO DAILY Miracle Mouthwash-Alan 15 mL PO BID mv-mins no.73-iron fum-folic 106 mg iron- 1 mg 1 cap PO DAILY ondansetron 4 mg PO Q8H pantoprazole 40 mg PO BID 90 days tnmfyeiny-sqffdu-cpldazzf-scop 16.2 mg-0.1037 mg/5 mL (5 mL) () 5 mL PO BID PRN polyethylene glycol 3350 (Miralax) 17 grams PO BID prochlorperazine (Compro) 25 mg OK Q12H PRN [ROLLATOR As directed] [SANITARY PADS As directed] [SHOWER BAR As directed] [SHOWER WAND As directed] simethicone 0.6 mL PO BID-TID PRN simethicone (Gas Relief (simethicone)) 160 mg PO BID sodium phosphates 19-7 gram/118 mL (Fleet Enema) 197 mL OK DAILY 1 day sodium,potassium,mag sulfates 17.5-3.13-1.6 gram (Suprep Bowel Prep Kit) As per instructions from GI office sucralfate (Carafate) 10 mL PO QID sumatriptan 5 mg/actuation 5 mg intranasal Q2-4H PRN tramadol 50 mg PO TID PRN 30 days triamcinolone acetonide 0.1% 1 appl topical DAILY ursodiol 300 mg PO BID [WRIST BRACE As directed] zolpidem 10 mg PO BEDTIME PRN Tobacco use date assessed: 11/14/23 Dental Screening Dental Screen Date: 11/14/23 HPI AUD Follow Up HPI Details 43-year-old female presents to the [facility] for a follow-up visit. I am stepping in for her primary care provider. Patient's daughter of cancer a month ago. In grief she is started drinking in large quantities. She reports to be drinking more than 5 cocktails a day. She drinks alone but never in the morning. Prior to her daughter's , patient reports that she was not drinking. She has history of anxiety and depression, sees a therapist and psychiatrist from [facility]. Patient is requesting help in getting over the alcohol habit. Denies use of any other substances. FORMERLY [facility] Medical History Type 2 diabetes mellitus with hyperglycemia Vision changes Gastritis Tongue sore Right ear pain Numbness of left hand History of bipolar disorder History of schizophrenia 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 Spondylosis of lumbar spine Diverticulosis Insomnia Vitamin D deficiency GERD (gastroesophageal reflux disease) Carpal tunnel syndrome Hypercholesterolemia Renal calculi Hypertension Alcohol abuse Anxiety and depression Surgical History History of esophagogastroduodenoscopy (EGD) Hx of colonoscopy Hx of bariatric surgery History of tubal ligation H/O: hysterectomy Family History Father Medical history unknown Mother Medical history unknown Paternal Aunt Uterine cancer Diabetes Hypertension Paternal Uncle Liver cancer Heart attack Lung cancer Maternal Aunt Stroke Family/Other Chronic mental illness Sister Uterine cancer Schizophrenia Brother Substance abuse Paternal Grandmother Lung cancer Other Mental health disorder Social History Household Members: None Housing: Apartment Do you presently have visiting nurse or other home services: Yes Alcohol intake: current Alcohol intake frequency: a few times a month Alcohol type: beer Patient Tobacco Use Status: Former Tobacco user Tobacco use type: Cigarette e-Cigarette/Vaping Use: Never Used Second Hand Smoke Exposure: No Substance Use Type: Marijuana service: No Current occupational status: disabled Current occupational exposures/hazards: No Cognitive needs: No Hearing needs: No Vision needs: Yes Female Reproductive History Menstrual Age of Menarche: 11 Questionnaire PHQ-9 Over the last 2 weeks, how often have you been bothered by any of the following problems? 1. Little interest or pleasure in doing things: several days 2. Feeling down, depressed, or hopeless: several days 3. Trouble falling or staying asleep, or sleeping too much: several days 4. Feeling tired or having little energy: several days 5. Poor appetite or overeating: several days 6. Feeling bad about yourself - or that you are a failure or have let yourself or your family down: not at all 7. Trouble concentrating on things, such as reading the newspaper or watching television: not at all 8. Moving or speaking so slowly that other people could have noticed. Or the opposite - being so fidgety or restless that you have been moving around a lot more than usual: not at all 9. Thoughts that you would be better off or of hurting yourself in some w ay: not at all Total score: 5 Depression Screening Interpretation: Positive Depression Screening Done: Yes 39898 - PHQ-9 Billing: Yes Source: Developed by Drs. Dinesh Freire, Niru Dimas, Denys Dodson and colleagues, with an educational mihai from [employer]. Thrive Questionnaire Date Thrive assessed: 11/14/23 AUDIT C Alcohol Use Questionnaire (AUDIT-C) 1. How often do you have a drink containing alcohol?: Never Total Score: 0 Score Reviewed/Action Taken: No JUDITH-7 AMB Questionnaire JUDITH-7 Date JUDITH - 7 assessed: 11/14/23 Source: Developed by Drs. Dinesh Freire, Niru Dimas, Denys Dodson and colleagues, with an educational mihai from [employer]. Physical exam (Primary Care) Vital Signs: Last Vital Signs Pulse 81 12/18/23 08:10 BP 110/70 12/18/23 08:10 Pulse Ox 98 12/18/23 08:10 Oxygen Delivery Method Room Air 12/18/23 08:10 Care Plan Goal for BP management: Blood pressure is in range. BMI result Body Mass Index 19.4 Tobacco/Smoking Status: Tobacco use Status Tobacco use date assessed 11/14/23 12/18/23 08:15 Patient Tobacco Use Status Former Tobacco user 12/18/23 08:15 Tobacco use type Cigarette 12/18/23 08:15 e-Cigarette/Vaping Use Never Used 12/18/23 08:15 PHQ-9: PHQ-9 Score PHQ-9: Total score 5 12/18/23 08:15 Depression Screening Interpretation: Positive Thrive Assessment: Date of Thrive Assessment Date Thrive assessed 11/14/23 12/18/23 08:15 Const General: cooperative and healthy appearing Nutritional Appearance: well nourished Orientation/consciousness: patient oriented x3 Limitations: no limitations HENMT Head: Yes normal to inspection Eyes General: appearance normal, both eyes and all related structures Neck Neck: Yes normal visual inspection Chest Chest palpation & inspection: normal palpation of entire chest wall Resp Effort & Inspection: normal respiratory effort Neuro General: patient oriented x3 Assessment and Plan Assessment & Plan (1) Alcohol use disorder: Code(s): F10.90 - Alcohol use, unspecified, uncomplicated Plan: Disulfiram started. 250 mg once a day. An appointment to comprehensive psychiatry care has been suggested. Patient to take this medication for 30 days. Follow-up appointment in 30 days. Can continue other medications. Orders: Referrals Addiction Medicine Referral F10.90 - Alcohol use, unspecified, uncomplicated Medications: New disulfiram 250 mg PO DAILY 30 tabs 1RF Coding Level of Care Code Est Pt Level 4 (10278) Diagnoses Alcohol use disorder F10.90
== END 2023-12-18 09:04 | disposition home or self-care (01) ==
PROVIDERS: PCP Internal Medicine; Visit Provider Internal Medicine
DX: F10.90 Alcohol use, unspecified, uncomplicated (principal)
CPT/HCPCS: 99214

== ENCOUNTER 2023-12-21 15:17 | Outpatient (AMB) | payer OTHER, SELFPAY ==
[2023-12-21 15:07] VITALS: BP 128/88; PULSE 88
--- NOTE | 2023-12-21 15:07 | A.OFFVISCC_ITS ---
Vital Signs 12/21/23 15:07 BP 128/88 Blood Pressure Location Rt brachial Position Sitting Pulse 88 Pulse Source Pulse Oximeter Intake Visit Reasons: Intake Allergies hydrocodone [HYDROCODONE] Allergy (Severe, Verified 12/18/23 09:18) RASH, AIRWAY CLOSES ibuprofen [From MOTRIN] Allergy (Intermediate, Verified 12/18/23 09:18) STOMACH UPSET, vomiting trazodone [TRAZODONE] Allergy (Intermediate, Verified 12/18/23 09:18) stomach upset/anxiety tomato [TOMATO] Allergy (Mild, Verified 12/18/23 09:18) HIVES DIFFICULTY BREATHING egg Allergy (Verified 12/18/23 09:18) Swelling black pepper [BLACK PEPPER] Adverse Reaction (Severe, Verified 12/18/23 09:18) DIFFICULTY BREATHING, hives lisinopril Adverse Reaction (Severe, Verified 12/18/23 09:18) Anaphylaxis HPI HPI Intake: Details: Patient presents for intake and evaluation of alcohol use daughter a month or so ago from cancer 12 years old since then she has been drinking daily Prior to her daughters no drinking 3 drinks at [employer] ([employer]) 6 days per week denies drinking at home, denies drinking on any other occasion patient has a very strong family history of alcohol and substance use and is concerned that her drinking will become an issue and she wishes to address it now she was seen at her PCP office recently where she was prescribed Disulfiram and referred to our office, but has not taken it as she wanted to meet with t/w first and better understand medication options. She expressed interest in Vivitrol Denies any history of substance use several medical issues for which she is engaged in care 3 GI related surgeries, including gastric bypass history: history of psychatric admissions several years ago connected to providers--therapist and psychiatrist unsure of all of her medications but can recall the following: -klonopin -ambien -seroquel -tramadol She identifies her boyfriend and therapist as supportive. She does not wake up with tremor or anxiety Does not feel she is craving alcohol after she stops drinking, but does think about it as soon as she wakes up Discussed medication options -vivitrol not recommended due to regular tramadol use -patient does not want disulfiram -agreeable to acamprosate. --reinforced importance of continuing to seek out supports and avoid long periods of time alone (as she identified this as a trigger) [facility] Medical History Type 2 diabetes mellitus with hyperglycemia Vision changes Gastritis Tongue sore Right ear pain Numbness of left hand History of bipolar disorder History of schizophrenia 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 Spondylosis of lumbar spine Diverticulosis Insomnia Vitamin D deficiency GERD (gastroesophageal reflux disease) Carpal tunnel syndrome Hypercholesterolemia Renal calculi Hypertension Alcohol abuse Anxiety and depression Surgical History History of esophagogastroduodenoscopy (EGD) Hx of colonoscopy Hx of bariatric surgery History of tubal ligation H/O: hysterectomy Family History Father Medical history unknown Mother Medical history unknown Paternal Aunt Uterine cancer Diabetes Hypertension Paternal Uncle Liver cancer Heart attack Lung cancer Maternal Aunt Stroke Family/Other Chronic mental illness Sister Uterine cancer Schizophrenia Brother Substance abuse Paternal Grandmother Lung cancer Other Mental health disorder Social History Household Members: None Housing: Apartment Do you presently have visiting nurse or other home services: Yes Alcohol intake: current Alcohol intake frequency: a few times a month Alcohol type: beer Patient Tobacco Use Status: Former Tobacco user Tobacco use type: Cigarette e-Cigarette/Vaping Use: Never Used Second Hand Smoke Exposure: No Substance Use Type: Marijuana service: No Current occupational status: disabled Current occupational exposures/hazards: No Cognitive needs: No Hearing needs: No Vision needs: Yes Female Reproductive History Menstrual Age of Menarche: 11 Review of Systems Const Reports as per HPI and Reports no additional complaints Physical Exam Vital Signs: Last Vital Signs Pulse 88 12/21/23 15:07 BP 128/88 12/21/23 15:07 Const General: cooperative, healthy appearing and well groomed Nutritional Appearance: thin Orientation/consciousness: patient oriented x3 Limitations: no limitations Neuro General: patient oriented x3 Psych Appearance: well kempt Speech and movement: Clear speech present Affect: normal affect and Sad affect present Attitude: cooperative Thought process: Normal thought process present Thought content: Normal thought content present Insight: Good insight present (Psych) Judgement: Good judgement present (Psych) Results AMB 14 Panel Urine Drug Screen Urine Marijuana (THC) Negative Last Edit by Yeny Patel CMA on 12/21/23 15 :28 Urine Cocaine Negative Last Edit by Yeny Patel CMA on 12/21/23 15:28 Urine Morphine Negative Last Edit by Yeny Patel CMA on 12/21/23 15:28 Urine Methamphetamine Negative Last Edit by Yeny Patel CMA on 12/21/23 15 :28 Urine Amphetamine Negative Last Edit by Yeny Patel CMA on 12/21/23 15:28 Urine Benzodiazepine Negative Last Edit by Yeny Patel CMA on 12/21/23 15: 28 Urine Barbiturates Negative Last Edit by Yeny Patel CMA on 12/21/23 15:28 Urine Methadone Negative Last Edit by Yeny Patel CMA on 12/21/23 15:28 Urine Buprenorphine Negative Last Edit by Yeny Patel CMA on 12/21/23 15:2 8 Urine Tricyclic Antidepressant Negative Last Edit by Yeny Patel CMA on 12/21/23 15:28 Urine MDMA Negative Last Edit by Yeny Patel CMA on 12/21/23 15:28 Urine Oxycodone Negative Last Edit by Yeny Patel CMA on 12/21/23 15:28 Urine Phencyclidine Negative Last Edit by Yeny Patel CMA on 12/21/23 15:2 8 Urine Propoxyphene Negative Last Edit by Yeny Patel CMA on 12/21/23 15:28 Results Reviewed Results Reviewed: Laboratory Last Values POC Urine Buprenorphine Negative 12/21/23 15:27 POC Urine Morphine Negative 12/21/23 15:27 POC Urine Oxycodone Negative 12/21/23 15:27 POC Urine Methadone Negative 12/21/23 15:27 POC Urine Propoxyphene Negative 12/21/23 15:27 POC Urine Barbiturates Negative 12/21/23 15:27 POC U Tricyclic Antidpr Negative 12/21/23 15:27 POC Urine PCP Negative 12/21/23 15:27 POC Ur Amphetamines Negative 12/21/23 15:27 POC Ur Methamphetamine Negative 12/21/23 15:27 POC Urine MDMA Negative 12/21/23 15:27 POC Ur Benzodiazepine Negative 12/21/23 15:27 POC Urine Cocaine Negative 12/21/23 15:27 POC Ur Marijuana (THC) Negative 12/21/23 15:27 Assessment & Plan Assessment & Plan (1) Grief at loss of child: Code(s): F43.21 - Adjustment disorder with depressed mood; Z63.4 - Disappearance and of family member Category: Medical Plan: * based on patient report of alcohol intake and length of time, she does not meet criteria for an alcohol use disorder, but she is certainly at risk * encouraged patient to continue with therapy, possibly seek out grief support * campral BID --reviewed medication, goals of treatment and possible side effects * follow up 3 weeks Orders: Orders AMB 14 Panel Urine Drug Screen 12/21/23 Z51.81 - Encounter for therapeutic drug level monitoring Medications: New acamprosate administer with mid-day and evening meals 333 mg PO BID 60 tabs 0RF Discontinued disulfiram Discontinued Reason: Doctor's Order 250 mg PO DAILY 30 tabs 1RF
== END 2023-12-21 16:11 | disposition home or self-care (01) ==
PROVIDERS: PCP Internal Medicine; Visit Provider Nurse Practitioner Psychiatric/Mental Health
DX: F10.90 Alcohol use, unspecified, uncomplicated (principal); F43.21 Adjustment disorder with depressed mood; Z63.4 Disappearance and death of family member
CPT/HCPCS: 99214

== ENCOUNTER → 2023-12-21 15:18 | Outpatient (BNVA) | payer OTHER, SELFPAY | PROVIDERS: PCP Internal Medicine; Visit Provider Nurse Practitioner Psychiatric/Mental Health | DX: F43.21 Adjustment disorder with depressed mood (principal); Z63.4 Disappearance and death of family member; Z51.81 Encounter for therapeutic drug level monitoring; F10.90 Alcohol use, unspecified, uncomplicated | CPT/HCPCS: 80305; 99212 ==

== ENCOUNTER 2024-02-10 15:09 | Emergency (ER) | payer OTHER, SELFPAY ==
--- NOTE | ~2024-02-10 | US_ITS ---
EXAMINATION: US ABDOMEN LIMITED CLINICAL INFORMATION: Evaluation of CBD, gallbladder and liver. COMPARISON: CT abdomen from 11/19/2023 TECHNIQUE: Limited right upper quadrant ultrasound performed FINDINGS: LIVER: Normal. The liver is normal in size. The liver contour is normal. Parenchymal echogenicity is normal. No focal hepatic lesion. There is no intrahepatic biliary duct dilatation seen. GALLBLADDER: Normal. The gallbladder is physiologically distended without evidence of stones, sludge, polyps, wall thickening or pericholecystic fluid. COMMON BILE DUCT: Normal in caliber measuring 0.2 cm in diameter. US/US abdomen limited IMPRESSION: Limited right upper quadrant ultrasound revealed no cholelithiasis or ductal dilatation. Normal liver
[2024-02-10 15:11] VITALS: BP 146/109; PULSE 111; RESP 20; TEMP 36.2; O2SAT 99; BMI 21.7
--- NOTE | 2024-02-10 15:20 | ED.GENADULT ---
HPI - General Adult General Chief complaint: Abdominal Pain Stated complaint: lwr abd pain/diarrhea/nauseaus Time Seen by Provider: 02/10/24 15:33 Source: patient and credit control assistant (algerian) Mode of arrival: ambulatory Limitations: language barrier (algerian) History of Present Illness ED Provider: HIEU MCKEON PA-C HPI narrative: 43 year old Danish speaking female with pmhx significant for type 2 diabetes, gastritis, GERD, diverticulosis, hypertension, anxiety, depression, ETOH abuse, bipolar disorder, schizophrenia presents to the ED today for evaluation of dysuria, foul smelling urine, increased urinary frequency, and lower abdominal pain x1 week. She is sexually active with her of 20 years and denies concern for sexually transmitted infections. Denies fever, chills, flank pain, vaginal discharge, rashes. Additionally endorses nausea, vomiting, diarrhea, and RUQ abdominal pain x1.5 weeks. Denies recent antibiotics. Denies recent travel outside the [place]. Denies known sick contacts. Related Data Home Medications ?Medication ?Instructions ?Recorded ?Confirmed blood sugar diagnostic (OneTouch 08/15/22 08/08/23 Verio test strips) blood-glucose meter (OneTouch 08/15/22 08/08/23 Verio Meter) lancets 33 gauge (OneTouch Delica 08/15/22 08/08/23 Lancets) triamcinolone acetonide 0.1 % 1 appl topical DAILY 02/07/23 08/08/23 topical cream zolpidem 10 mg tablet 10 mg PO BEDTIME PRN Insomnia 02/07/23 08/08/23 simethicone 80 mg chewable tablet 160 mg PO BID 08/07/23 08/08/23 (Gas Relief (simethicone)) ursodiol 300 mg capsule 300 mg PO BID 08/07/23 08/08/23 clonazepam 1 mg tablet 1 mg PO TID 08/08/23 08/08/23 Previous Rx's ?Medication ?Instructions ?Recorded BATH CHAIR #1 ea 01/31/22 CANE #1 ea 01/31/22 LIFELINE ALERT SYSTEM #1 ea 01/31/22 WRIST BRACE #1 ea 01/31/22 ALCOHOL PADS #100 ea 02/21/22 SHOWER BAR #1 ea 06/08/22 SHOWER WAND #1 ea 06/08/22 Bed pads #100 ea 07/17/22 Bedside commode #1 ea 07/17/22 SANITARY PADS #100 ea 07/17/22 food supplemt, lactose-reduced 0.1 1 ea PO TID #1,184 mL 01/29/23 gram-1.18 kcal/mL oral liquid (Ensure Complete) ondansetron 4 mg disintegrating 4 mg PO Q8H nausea and vomiting 03/03/23 tablet #20 tabs sumatriptan 5 mg/actuation nasal 5 mg intranasal Q2-4H PRN migraine 03/03/23 spray headache #6 ea Miracle Mouthwash-Alan 240 mL 15 ml PO BID #240 mL 03/16/23 liquid djaspeasx-yagkwivwo-essheqim-scop 5 ml PO BID PRN indigestion #50 mL 03/16/23 16.2 mg-0.1037 mg/5 mL (5 mL) elixir () prochlorperazine 25 mg rectal 25 mg [place] Q12H PRN nausea and 03/16/23 suppository (Compro) vomiting #12 ea cyclobenzaprine 5 mg tablet 5 mg PO Q8H PRN pain (scale score 03/20/23 7-10) 5 days #14 tabs acetaminophen 160 mg/5 mL oral 320 mg (10 mL) PO Q6H PRN fever or 05/23/23 liquid pain #473 mL ROLLATOR #1 ea 06/28/23 famotidine 20 mg tablet (Pepcid) 20 mg PO BID 10 days #20 tabs 07/18/23 simethicone 40 mg/0.6 mL oral 0.6 ml PO BID-TID PRN abdominal 08/02/23 drops,suspension distention #15 mL blood pressure monitor (Blood #1 ea 08/06/23 Pressure Kit) fluticasone propionate 50 1 spray intranasal DAILY #100 mL 08/08/23 mcg/actuation nasal spray,suspension (Flonase Allergy Relief) linaclotide 290 mcg capsule 290 mcg PO DAILY #30 caps 08/08/23 (Linzess) sodium,potassium,mag sulfates 17.5 See Rx Instructions PO .COMPLEX 10/03/23 gram-3.13 gram-1.6 gram oral soln #354 mL (Suprep Bowel Prep Kit) pantoprazole 40 mg tablet,delayed 40 mg PO BID 90 days #180 tabs 10/07/23 release aluminum-mag hydroxide-simethicone 5 ml PO 5XD PRN indigestion #355 mL 10/10/23 200 mg-200 mg-20 mg/5 mL oral susp (Maalox Advanced) bisacodyl 10 mg rectal suppository 10 mg [place] DAILY PRN constipation 11/14/23 (Dulcolax (bisacodyl)) #30 ea lactulose 20 gram/30 mL oral 30 g (45 mL) PO BID #3,000 mL 11/14/23 solution sodium phosphates 19 gram-7 197 ml [place] DAILY 1 day #133 mL 11/19/23 gram/118 mL enema (Fleet Enema) multivit-minerals no.73-iron 1 cap PO DAILY #30 caps 12/19/23 fumarate 106 mg-folic acid 1 mg capsule polyethylene glycol 3350 17 17 g PO BID #850 grams 12/19/23 gram/dose oral powder (Miralax) tramadol 50 mg tablet 50 mg PO TID PRN pain 30 days #90 01/13/24 tabs sucralfate 100 mg/mL oral 10 ml PO QID #840 mL 01/16/24 suspension (Carafate) acamprosate 333 mg tablet,delayed 333 mg PO BID #60 tabs 01/18/24 release blood sugar diagnostic (FreeStyle #100 ea 01/21/24 Lite Strips) blood-glucose meter (FreeStyle #1 ea 01/21/24 Lite Meter kit) nitrofurantoin 100 mg PO BID 7 days #14 caps 02/11/24 monohydrate/macrocrystals 100 mg capsule tramadol 25 mg tablet 25 mg PO Q6H PRN pain (scale score 02/11/24 7-10) #4 tabs Allergies Allergy/AdvReac Type Severity Reaction Status Date / Time hydrocodone [HYDROCODONE] Allergy Severe RASH, Verified 02/11/24 09:36 AIRWAY CLOSES ibuprofen [From MOTRIN] Allergy Intermediate STOMACH Verified 02/11/24 09:36 UPSET, vomiting trazodone [TRAZODONE] Allergy Intermediate stomach Verified 02/11/24 09:36 upset/anxiety tomato [TOMATO] Allergy Mild HIVES Verified 02/11/24 09:36 DIFFICULTY BREATHING egg Allergy Swelling Verified 02/11/24 09:36 black pepper [BLACK PEPPER] AdvReac Severe DIFFICULTY Verified 02/11/24 09:36 BREATHING, hives lisinopril AdvReac Severe Anaphylaxis Verified 02/11/24 09:36 Review of Systems Review of Systems: Constitutional: No fever, chills, fatigue, night sweats, weight changes ENT/Mouth: No ear pain, hearing loss, nasal congestion, sinus pain, rhinorrhea, sore throat Eyes: No eye pain, swelling, redness, vision changes, discharge Cardio: No chest pain, palpitations, MCGOVERN, orthopnea, peripheral edema Pulm: No SOB, cough, sputum, wheezing, dyspnea, hemoptysis GI: No hematemesis,constipation, hematochezia, melena, +nausea, +vomiting, +diarrhrea, +abdominal pain : No irregular bleeding, urgency, hesitancy, hematuria, flank pain, urinary flow changes, urinary incontinence or retention, +urinary frequency, +dysuria, +foul smelling urine MSK: No back pain, neck pain, joint pain, myalgias Skin: No lesions, rashes Neuro: No weakness, numbness, paresthesias, LOC, dizziness, headache Psych: No anxiety/panic, depression, SI/HI, AH/VH All other systems reviewed and are negative. [facility] Past Medical History Attestation statement: The following information was validated with the patient. 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 Spondylosis of lumbar spine Diverticulosis Insomnia Vitamin D deficiency GERD (gastroesophageal reflux disease) Carpal tunnel syndrome Hypercholesterolemia Renal calculi Hypertension Alcohol abuse Anxiety and depression Surgical History History of esophagogastroduodenoscopy (EGD) Hx of colonoscopy Hx of bariatric surgery History of tubal ligation H/O: hysterectomy Family History Family History Father Medical history unknown Mother Medical history unknown Paternal Aunt Uterine cancer Diabetes Hypertension Paternal Uncle Liver cancer Heart attack Lung cancer Maternal Aunt Stroke Family/Other Chronic mental illness Sister Uterine cancer Schizophrenia Brother Substance abuse Paternal Grandmother Lung cancer Other Mental health disorder Social History Social History Household Members: None Housing: Apartment Do you presently have visiting nurse or other home services: Yes Alcohol intake: current Alcohol intake frequency: a few times a month Alcohol type: beer Patient Tobacco Use Status: Former Tobacco user Tobacco use type: Cigarette Smoked in Last 30 Days: No e-Cigarette/Vaping Use: Never Used Second Hand Smoke Exposure: No Use of substances other than those prescribed or required for medical reasons: Yes Substance Use Type: Marijuana Advance Directives: No Advance Directives Information Provided: No service: No Current occupational status: disabled Current occupational exposures/hazards: No Cognitive needs: No Hearing needs: No Vision needs: Yes Physical Exam ED Vital Signs: Vital Signs - 24 hr 02/10/24 15:11 Temperature 97.1 F Pulse Rate 111 H Respiratory Rate 20 Blood Pressure 146/109 H Pulse Oximetry 99 Oxygen Delivery Method Room Air BMI result Body Mass Index 21.7 Patient hypertensive and tachycardic, afebrile Const General: cooperative, healthy appearing, comfortable and no acute distress Orientation/consciousness: patient oriented x3 Limitations: no limitations HENMT Head: Yes normal to inspection, Yes No palpable skull fracture present, Yes normocephalic and Yes atraumatic Eyes General: appearance normal, both eyes and all related structures Pupils: Equal, round and reactive pupils present Neck Neck: Yes normal visual inspection, Yes full ROM and Yes no lymphadenopathy Resp Effort & Inspection: normal respiratory effort and able to speak in complete sentences Auscultation: clear to auscultation bilaterally Cardio Rate: regular rate Rhythm: regular rhythm GI Other: Abdomen soft, nondistended, slightly tender to palpation of right upper and right lower quadrant without rebound tenderness or guarding. Normoactive bowel sounds x4. General: Yes no CVA tenderness Back/Spine/Pelvis Back: no CVA tenderness Skin General skin exam: no rashes or lesions noted Neuro General: patient oriented x3 and tone normal Cranial nerves: Yes Equal, round and reactive pupils present Extrem General: Yes normal to inspection Course Course Course Narrative: RmE; dpne by NOEL Boateng. [age] old female presents to ED for dysuria right-sided lower abdominal pain. Patient states foul odor urine. Patient denies any flank pain, recent long travel or recent surgery. Patient denies any trauma. Mild right-sided lower heart suprapubic tenderness Reevaluation(s) Reevaluation #1: 1610-- CBC without leukocytosis or left shift. No anemia. H&H stable. UA showing trace amount of blood, moderate amount of leukocyte esterase with 11-20 WBCs, minimal amount of squamous epithelial cells and no bacteria seen. >> Patient stable at the end of my shift. Signout given to my collegue, Jaime MENDEZ, pending lab work, ultrasound, CT scan, re-evaluation and disposition. Reevaluation #2: Shortly after receiving sign-out from the patient, I was informed by nursing staff that the patient decided to leave/elope from the emergency department. The patient mentioned to nursing staff that she would prefer to follow-up with her primary doctor. I Did not have the chance to meet the patient prior to her eloping. Time: 16:58 Medical Decision Making Medical Decision Making [facility] Narrative: 43 year old Danish speaking female with pmhx significant for type 2 diabetes, gastritis, GERD, diverticulosis, hypertension, anxiety, depression, ETOH abuse, bipolar disorder, schizophrenia presents to the ED today for evaluation of dysuria, foul smelling urine, increased urinary frequency, and lower abdominal pain x1 week. Skin warm, dry, intact. No rashes. Abdomen is soft, nondistended, tender to palpation of right upper and right lower quadrants without rebound tenderness or guarding, normoactive bowel sounds x4. No CVAT bilaterally. Ambulating with steady gait. Differential diagnosis includes urinary tract infection, renal colic, nephrolithiasis, pyelonephritis, cholecystitis. Lower suspicion for cholangitis, Plan for labs, UA, right upper quadrant ultrasound, CT abdomen/pelvis, pain control, IV fluids, re-evaluation. Differential Diagnosis Differential Diagnoses: The differential diagnosis associated with the presentation includes As above Admission/Observation Consideration of admission/observation: Escalation of care including admission/observation considered Admission considered on presentation. Lab Data [facility] Lab Attestation statement: I reviewed the patient's lab results. as above. 02/10/24 15:55 02/10/24 15:55 Labs: Lab Results 02/10/24 02/10/24 02/10/24 Range/Units 15:40 15:42 15:55 WBC 6.7 (4.8-10.8) X10*3/uL RBC 4.27 (4.20-5.50) X10*6/uL Hgb 12.9 (12.0-16.0) g/dl Hct 37.7 (37.0-47.0) % MCV 88.3 (80.0-98.0) fL MCH 30.2 (27.0-33.0) pg MCHC 34.2 (31.0-35.0) g/dl RDW 12.8 (11.0-16.0) % Plt Count 303 (160-400) X10*3/uL MPV 9.8 (9.4-12.3) fL Immature Gran % (Auto) 0.2 (0.0-0.4) % Neut % (Auto) 70.9 (45-73) % Lymph % (Auto) 19.7 L (20-40) % Edmonson % (Auto) 7.5 (2-11) % Eos % (Auto) 0.8 (0-4) % Baso % (Auto) 0.9 (0-2) % Lymph # (Auto) 1.3 (1.2-4.9) X10*3/uL Edmonson # (Auto) 0.5 (0.1-1.2) X10*3/uL Eos # (Auto) 0.1 (0.0-0.4) X10*3/uL Baso # (Auto) 0.1 (0.0-0.2) X10*3/uL Abs Immat Gran (auto) 0.01 (0.00-0.03) X10*3/uL Absolute Neuts (auto) 4.7 (2.0-8.3) x10*3/uL Absolute Nucleated RBC 0.000 (0.0-0.012) X10*3/uL Nucleated RBC % (auto) 0.0 (0.0-0.2) /100WBC Sodium 141 (135-145) mmol/L Potassium 3.5 (3.3-5.1) mmol/L Chloride 103 (96-108) mmol/L Carbon Dioxide 28 (22-29) mmol/L Anion Gap 14 (12-20) BUN 10 (9-16) mg/dL Creatinine 0.62 (0.5-1.4) mg/dL Estim Creat Clear Calc 88.2 Estimated GFR > 60 Random Glucose 87 (60-115) mg/dL Calcium 9.9 (8.4-10.2) mg/dL Total Bilirubin 0.4 (0.0-1.0) mg/dL AST 20 (5-31) U/L ALT 10 (0-31) U/L Alkaline Phosphatase 74 (39-117) U/L Total Protein 7.6 (6.5-8.0) g/dL Albumin 4.9 (3.5-5.0) g/dL Lipase 16 (8-78) U/L Beta HCG, Quant < 2 mIU/mL Urine Color Yellow Urine Appearance Clear Urine pH 6.5 (5.0-9.0) Ur Specific Donald <= 1.005 (1.005-1.025) Urine Protein Negative (Neg-Trace) mg/dL Urine Glucose (UA) Negative (Negative) mg/dL Urine Ketones Negative (Negative) mg/dL Urine Blood Trace H (Negative) Urine Nitrite Negative (Negative) Ur Leukocyte Esterase Moderate (2+) H (Negative) Urine RBC 0-2 (0-2) /HPF Urine WBC 11-20 (0-5) /HPF Ur Squamous Epith Cells 0-2 (0-2) /HPF Urine Bacteria None Seen (None Seen) Hyaline Casts 0-2 (0-2) /LPF Influenza Type A (PCR) NEGATIVE (Negative) Influenza Type B (PCR) NEGATIVE (Negative) RSV RNA Qual (PCR) NEGATIVE (Negative) SARS-CoV-2 RNA (RT-PCR) NEGATIVE (Negative) Independent Interpretation I performed an independent interpretation of an: Ultrasound Interpretation: US RUQ without thickening of gallbladder wall, agree with radiologist's interpretation. Radiology Impression Discussion of test interpretation with radiology: I have reviewed the radiologist's reading. Radiologist Impression: EXAMINATION: US ABDOMEN LIMITED CLINICAL INFORMATION: Evaluation of CBD, gallbladder and liver. COMPARISON: CT abdomen from 11/19/2023 TECHNIQUE: Limited right upper quadrant ultrasound performed FINDINGS: LIVER: Normal. The liver is normal in size. The liver contour is normal. Parenchymal echogenicity is normal. No focal hepatic lesion. There is no intrahepatic biliary duct dilatation seen. GALLBLADDER: Normal. The gallbladder is physiologically distended without evidence of stones, sludge, polyps, wall thickening or pericholecystic fluid. COMMON BILE DUCT: Normal in caliber measuring 0.2 cm in diameter. US/US abdomen limited IMPRESSION: Limited right upper quadrant ultrasound revealed no cholelithiasis or ductal dilatation. Normal liver External Record Review External record reviewed: Inpatient record, Office record, Outpatient record, Prior outpatient labs, Prior outpatient radiology, Primary care record and Outside ED record Social Determinants Patient?s care significantly limited by Social Determinants of Health including: Other Social Determinant of Health Critical Care Time Critical Care Time Critical Care Time: No Discharge Plan Discharge Clinical Impression: Abdominal pain Patient Disposition: Elopement Prescriptions: No Action (DME) CANE See Rx Instructions .Route .MEDSUPPLY Qty: 1 0RF Rx Instructions: As directed (DME) WRIST BRACE See Rx Instructions .Route .MEDSUPPLY Qty: 1 0RF Rx Instructions: As directed (DME) BATH CHAIR See Rx Instructions .Route .MEDSUPPLY Qty: 1 0RF Rx Instructions: As directed (DME) LIFELINE ALERT SYSTEM See Rx Instructions .Route .MEDSUPPLY Qty: 1 0RF Rx Instructions: As directed (DME) ALCOHOL PADS See Rx Instructions .Route .MEDSUPPLY Qty: 100 3RF Rx Instructions: As directed (DME) SHOWER WAND See Rx Instructions .Route .MEDSUPPLY Qty: 1 0RF Rx Instructions: As directed (DME) SHOWER BAR See Rx Instructions .Route .MEDSUPPLY Qty: 1 0RF Rx Instructions: As directed (DME) Bedside commode See Rx Instructions .Route .MEDSUPPLY Qty: 1 0RF Rx Instructions: As directed (DME) Bed pads See Rx Instructions .Route .MEDSUPPLY Qty: 100 12RF Rx Instructions: As directed (DME) SANITARY PADS See Rx Instructions .Route .MEDSUPPLY Qty: 100 12RF Rx Instructions: As directed Ensure Complete 0.1 gram-1.18 kcal/mL liquid 1 ea PO TID Qty: 1184 12RF (DME) ROLLATOR See Rx Instructions .Route .MEDSUPPLY Qty: 1 0RF Rx Instructions: As directed simethicone 40 mg/0.6 mL drops,suspension 0.6 ml PO BID-TID PRN (Reason: abdominal distention) Qty: 15 0RF (DME) blood pressure monitor [Blood Pressure Kit] Kit See Rx Instructions .Route Qty: 1 0RF Rx Instructions: As directed pantoprazole 40 mg tablet,delayed release (DR/EC) 40 mg PO BID 90 Days Qty: 180 1RF alum-mag hydroxide-simeth [Maalox Advanced] 200-200-20 mg/5 mL suspension 5 ml PO 5XD PRN (Reason: indigestion) Qty: 355 4RF Rx Instructions: administer between meals and at bedtime mv-mins no.73-iron fum-folic 106 mg iron- 1 mg capsule 1 cap PO DAILY Qty: 30 4RF polyethylene glycol 3350 [Miralax] 17 gram/dose powder 17 g PO BID Qty: 850 0RF tramadol 50 mg tablet 50 mg PO TID PRN (Reason: pain) 30 Days Qty: 90 0RF sucralfate [Carafate] 100 mg/mL suspension 10 ml PO QID Qty: 840 1RF acamprosate 333 mg tablet,delayed release (DR/EC) 333 mg PO BID Qty: 60 0RF (DME) FreeStyle Lite Strips Strip See Rx Instructions .ROUTE .MEDSUPPLY Qty: 100 3RF Rx Instructions: use daily As directed to check blood sugars for diabetes (DME) blood-glucose meter [FreeStyle Lite Meter] Kit See Rx Instructions .ROUTE .MEDSUPPLY Qty: 1 0RF Rx Instructions: Use daily As directed to check blood glucose ondansetron 4 mg tablet,disintegrating 4 mg PO Q8H Qty: 20 0RF sumatriptan 5 mg/actuation spray,non-aerosol 5 mg intranasal Q2-4H PRN (Reason: migraine headache) Qty: 6 1RF Rx Instructions: into each nostril once; if headache remains, may repeat total dose once after at least 2 hours cyclobenzaprine 5 mg tablet 5 mg PO Q8H PRN (Reason: pain (scale score 7-10)) 5 Days Qty: 14 0RF famotidine [Pepcid] 20 mg tablet 20 mg PO BID 10 Days Qty: 20 0RF prochlorperazine [Compro] 25 mg suppository 25 mg [place] Q12H PRN (Reason: nausea and vomiting) Qty: 12 0RF Miracle Mouthwash-Alan 240 mL liquid 15 ml PO BID Qty: 240 0RF Rx Instructions: Nystatin susp 80 mL;Lidocaine 2% Visc 80 mL; Maalox 80 mL; Swish and spit ntdnzjijr-ksnmex-xasjlyjc-scop [] 16.2 mg-0.1037 mg/5 mL (5 mL) elixir 5 ml PO BID PRN (Reason: indigestion) Qty: 50 0RF acetaminophen 160 mg/5 mL liquid 320 mg PO Q6H PRN (Reason: fever or pain) Qty: 473 0RF Fleet Enema 19-7 gram/118 mL enema 197 ml [place] DAILY 1 Days Qty: 133 2RF nitrofurantoin monohyd/m-cryst 100 mg capsule 100 mg PO BID 7 Days Qty: 14 0RF Rx Instructions: must administer with a meal/food tramadol 25 mg tablet 25 mg PO Q6H PRN (Reason: pain (scale score 7-10)) Qty: 4 0RF clonazepam 1 mg tablet 1 mg PO TID fluticasone propionate [Flonase Allergy Relief] 50 mcg/actuation spray,suspension 1 spray intranasal DAILY Qty: 100 0RF Rx Instructions: administer into each nostril Linzess 290 mcg capsule 290 mcg PO DAILY Qty: 30 1RF bisacodyl [Dulcolax (bisacodyl)] 10 mg suppository 10 mg [place] DAILY PRN (Reason: constipation) Qty: 30 0RF lactulose 20 gram/30 mL solution 30 g PO BID Qty: 3000 0RF (DME) blood-glucose meter [OneTouch Verio Meter] [facility] See Rx Instructions .Route Rx Instructions: As directed (DME) OneTouch Verio test strips Strip See Rx Instructions .Route Rx Instructions: As directed 3 times a day (DME) lancets [OneTouch Delica Lancets] 33 gauge misc See Rx Instructions .Route Rx Instructions: As directed 3 times a day zolpidem 10 mg tablet 10 mg PO BEDTIME PRN (Reason: Insomnia) triamcinolone acetonide 0.1 % cream 1 appl topical DAILY ursodiol 300 mg capsule 300 mg PO BID simethicone [Gas Relief (simethicone)] 80 mg tablet,chewable 160 mg PO BID sodium,potassium,mag sulfates [Suprep Bowel Prep Kit] 17.5-3.13-1.6 gram recon soln See Rx Instructions PO .COMPLEX Qty: 354 0RF Rx Instructions: As per instructions from GI office Discharge Date/Time: 02/10/24 17:15 Print Language: Danish
[2024-02-10 15:54] LABS: Appearance Urine Clear; Color Urine Yellow; Glucose Urine UA Negative (Negative); Leukocyte Esterase Urine Moderate (2+) (Negative); Nitrite Urine Negative (Negative); PH 6.5 (5.0-9.0); Specific Gravity - Urine <= 1.005 (1.005-1.025); UMIC TRIGGER UACC YES; Urine Blood Trace (Negative); Urine Ketones Negative (Negative); Urine Protein Negative (Neg-Trace)
[2024-02-10 16:01] LABS: Bacteria Urine None Seen (None Seen); Hyaline Casts Urine 0-2 /LPF (0-2); RBC Urine 0-2 /HPF (0-2); Squamous Epithelial Cell Urine 0-2 /HPF (0-2); UACC Culture Trigger YES
[2024-02-10 16:02] LABS: MANUAL DIFF FLAG NO
[2024-02-10 16:06] LABS: Basophils Absolute Auto 0.1 X10*3/uL (0.0-0.2); Basophils Percent Auto 0.9 % (0-2); Eosinophils Absolute Auto 0.1 X10*3/uL (0.0-0.4); Eosinophils Percent Auto 0.8 % (0-4); Hematocrit 37.7 % (37.0-47.0); Hemoglobin 12.9 g/dl (12.0-16.0); Imm Gran Abs Auto 0.01 X10*3/uL (0.00-0.03); Imm Gran Pct Auto 0.2 % (0.0-0.4); Lymphocytes Absolute Auto 1.3 X10*3/uL (1.2-4.9); Lymphocytes Percent Auto 19.7 % (20-40); Mean Corpuscular HGB Conc 34.2 g/dl (31.0-35.0); Mean Corpuscular Hemoglobin 30.2 pg (27.0-33.0); Mean Corpuscular Volume 88.3 fL (80.0-98.0); Mean Platelet Volume 9.8 fL (9.4-12.3); Monocytes Absolute Auto 0.5 X10*3/uL (0.1-1.2); Monocytes Percent Auto 7.5 % (2-11); Neutrophils Absolute Auto 4.7 x10*3/uL (2.0-8.3); Neutrophils Percent Auto 70.9 % (45-73); Platelet Count 303 X10*3/uL (160-400); Red Blood Count 4.27 X10*6/uL (4.20-5.50); Red Cell Distribution Width 12.8 % (11.0-16.0); White Blood Count 6.7 X10*3/uL (4.8-10.8)
[2024-02-10 16:25] LABS: Alanine Aminotransferase 10 U/L (0-31); Albumin Level 4.9 g/dL (3.5-5.0); Alkaline Phosphatase 74 U/L (39-117); Anion Gap 14 (12-20); Aspartate Amino Transferase 20 U/L (5-31); Bilirubin Total 0.4 mg/dL (0.0-1.0); Blood Urea Nitrogen 10 mg/dL (9-16); Calcium 9.9 mg/dL (8.4-10.2); Carbon Dioxide 28 mmol/L (22-29); Chloride 103 mmol/L (96-108); Creatinine Clr Calc Pharmacy 88.2; Estimated Glomerular Filt Rate > 60; Glucose Random 87 mg/dL (60-115); Lipase 16 U/L (8-78); Potassium 3.5 mmol/L (3.3-5.1); Sodium 141 mmol/L (135-145); Total Protein 7.6 g/dL (6.5-8.0)
[2024-02-10 16:29] LABS: Influenza A PCR NEGATIVE (Negative); Influenza B PCR NEGATIVE (Negative); Resp Syncy Virus RNA Qual PCR NEGATIVE (Negative); SARS COV2 PCR INHOUSE NEGATIVE (Negative)
[2024-02-10 16:36] LABS: HCG Quantitative < 2 mIU/mL
--- NOTE | 2024-02-10 17:55 | PC.NURSE ---
Pt requested to leave AMA. Refused to wait for the doctor/provider. Stated she needed to go and doesnt have time for this . This RN removed her IV. Provider aware
== END 2024-02-10 17:15 | disposition left against medical advice (07) ==
PROVIDERS: Physician Assistant; Emergency Provider Emergency Medicine; PCP Internal Medicine
DX: R10.30 Lower abdominal pain, unspecified (principal); R11.0 Nausea; R10.11 Right upper quadrant pain; Z79.899 Other long term (current) drug therapy; Z87.891 Personal history of nicotine dependence; Z03.818 Encounter for observation for suspected exposure to other biological agents ruled out
CPT/HCPCS: 0241U; 36415; 76705; 80053; 81001; 83690; 84702; 85025; 87086; 87088; 87186; 96360; 96374; 96375; 99283; 99284

== ENCOUNTER 2024-02-11 09:27 | Emergency (ER) | payer OTHER, SELFPAY ==
--- NOTE | ~2024-02-11 | CT_ITS ---
EXAMINATION: CT ABDOMEN AND PELVIS WITHOUT CONTRAST CLINICAL INFORMATION: Lower abdominal pain COMPARISON: CT abdomen pelvis 11/19/2023 and 09/07/2023 as well as other prior exams. TECHNIQUE: Multidetector volumetric imaging was performed from the superior aspect of the liver through the pubic symphysis. Sagittal and coronal reformatted images were obtained on the technologist's workstation. This CT examination was performed using dose optimization techniques as appropriate, variously including the following: *Automated exposure control *Adjustment of mA and/or kV according to patient size (this includes techniques or standardized protocols for targeted exams where dose is matched to indication/reason for exam; i.e. extremities or head) *Use of iterative reconstruction technique DLP: 297 mGy-cm FINDINGS: LUNG BASES: The visualized lung bases are unremarkable. LIVER, GALLBLADDER, AND BILIARY TREE: The liver is normal in size, shape, and attenuation. No focal hepatic lesion or biliary ductal dilatation is present. The gallbladder is unremarkable with no evidence of radiopaque gallstones, gallbladder wall thickening, or obvious pericholecystic inflammatory changes. PANCREAS: Unremarkable. SPLEEN: Unremarkable. ADRENAL GLANDS: Unremarkable. KIDNEYS AND URETERS: The kidneys are normal in size, shape, and attenuation. No hydronephrosis, hydroureter, or calculi seen. No perinephric stranding. BLADDER: Unremarkable. GASTROINTESTINAL TRACT: Status post gastric bypass. Moderate stool present in the colon. There is diverticulosis without diverticulitis. No bowel obstruction. The small and large bowel are unremarkable. The appendix is unremarkable. ABDOMINAL WALL: No significant hernia is appreciated. LYMPH NODES: Normal. VASCULAR: Unremarkable. PELVIC VISCERA: The uterus is not seen. An abnormal adnexal mass is not detected. No free intraperitoneal fluid is present. OSSEOUS STRUCTURES: Unremarkable. CT/CT abdomen pelvis wo IV con IMPRESSION: 1. A cause for the patient's lower abdominal pain has not been found. 2. Incidental note made of gastric bypass, diverticulosis without diverticulitis and hysterectomy. Fleischner guidelines were followed.
[2024-02-11 09:35] VITALS: BP 136/95; PULSE 71; RESP 16; TEMP 36.7; O2SAT 100; BMI 21.2
[2024-02-11 10:33] LABS: MANUAL DIFF FLAG NO
--- NOTE | 2024-02-11 10:36 | ED.ABDPAIN ---
HPI - Abdominal Pain General Chief Complaint: Abdominal Pain Stated Complaint: vomiting Time Seen by Provider: 02/11/24 10:26 Source: patient, RN notes reviewed and old records reviewed Mode of arrival: ambulatory Limitations: no limitations History of Present Illness ED Provider: HIEU MCKEON PA-C HPI narrative: 43-year-old Argentine-speaking female with past medical history significant for type 2 diabetes, gastritis, GERD, diverticulosis, hypertension, anxiety, depression, ETOH abuse, bipolar disorder, schizophrenia presents to the ED today for evaluation of dysuria, foul-smelling urine, increased urinary frequency and lower abdominal pain x1 week. Admits to being sexually active with her of 20 years. Denies chance of . Denies concern for sexually transmitted infections. Denies fever, chills, flank pain, vaginal discharge, rashes, hematuria. Additionally she reports nausea, vomiting, diarrhea and right upper quadrant pain times a week and a half. Denies recent antibiotic use. Denies recent travel outside [place] Denies known sick contacts. Of note, patient was evaluated in the ED for same yesterday and eloped from the emergency department prior to completion of workup. Related Data Home Medications ?Medication ?Instructions ?Recorded ?Confirmed [facility] 08/08/23 Verio test strips) blood-glucose meter ([facility]/15[facility] 08/08/23 Verio Meter) lancets 33 gauge ([employer] 08/15/22 08/08/23 Lancets) triamcinolone acetonide 0.1 % 1 appl topical DAILY 02/07/23 08/08/23 topical cream zolpidem 10 mg tablet 10 mg PO BEDTIME PRN Insomnia 02/07/23 08/08/23 simethicone 80 mg chewable tablet 160 mg PO BID 08/07/23 08/08/23 (Gas Relief (simethicone)) ursodiol 300 mg capsule 300 mg PO BID 08/07/23 08/08/23 clonazepam 1 mg tablet 1 mg PO TID 08/08/23 08/08/23 Previous Rx's ?Medication ?Instructions ?Recorded BATH CHAIR #1 ea 01/31/22 CANE #1 ea 01/31/22 LIFELINE ALERT SYSTEM #1 ea 01/31/22 WRIST BRACE #1 ea 01/31/22 ALCOHOL PADS #100 ea 02/21/22 SHOWER BAR #1 ea 06/08/22 SHOWER WAND #1 ea 06/08/22 Bed pads #100 ea 07/17/22 Bedside commode #1 ea 07/17/22 SANITARY PADS #100 ea 07/17/22 food supplemt, lactose-reduced 0.1 1 ea PO TID #1,184 mL 01/29/23 gram-1.18 kcal/mL oral liquid (Ensure Complete) ondansetron 4 mg disintegrating 4 mg PO Q8H nausea and vomiting 03/03/23 tablet #20 tabs sumatriptan 5 mg/actuation nasal 5 mg intranasal Q2-4H PRN migraine 03/03/23 spray headache #6 ea Miracle Mouthwash-Alan 240 mL 15 ml PO BID #240 mL 03/16/23 liquid dyhntrlkw-ffcidivvt-zvawaeuk-scop 5 ml PO BID PRN indigestion #50 mL 03/16/23 16.2 mg-0.1037 mg/5 mL (5 mL) elixir () prochlorperazine 25 mg rectal 25 mg IA Q12H PRN nausea and 03/16/23 suppository (Compro) vomiting #12 ea cyclobenzaprine 5 mg tablet 5 mg PO Q8H PRN pain (scale score 03/20/23 7-10) 5 days #14 tabs acetaminophen 160 mg/5 mL oral 320 mg (10 mL) PO Q6H PRN fever or 05/23/23 liquid pain #473 mL ROLLATOR #1 ea 06/28/23 famotidine 20 mg tablet (Pepcid) 20 mg PO BID 10 days #20 tabs 07/18/23 simethicone 40 mg/0.6 mL oral 0.6 ml PO BID-TID PRN abdominal 08/02/23 drops,suspension distention #15 mL blood pressure monitor (Blood #1 ea 08/06/23 Pressure Kit) fluticasone propionate 50 1 spray intranasal DAILY #100 mL 08/08/23 mcg/actuation nasal spray,suspension (Flonase Allergy Relief) linaclotide 290 mcg capsule 290 mcg PO DAILY #30 caps 08/08/23 (Linzess) sodium,potassium,mag sulfates 17.5 See Rx Instructions PO .COMPLEX 10/03/23 gram-3.13 gram-1.6 gram oral soln #354 mL (Suprep Bowel Prep Kit) pantoprazole 40 mg tablet,delayed 40 mg PO BID 90 days #180 tabs 10/07/23 release aluminum-mag hydroxide-simethicone 5 ml PO 5XD PRN indigestion #355 mL 10/10/23 200 mg-200 mg-20 mg/5 mL oral susp (Maalox Advanced) bisacodyl 10 mg rectal suppository 10 mg IA DAILY PRN constipation 11/14/23 (Dulcolax (bisacodyl)) #30 ea lactulose 20 gram/30 mL oral 30 g (45 mL) PO BID #3,000 mL 11/14/23 solution sodium phosphates 19 gram-7 197 ml IA DAILY 1 day #133 mL 11/19/23 gram/118 mL enema (Fleet Enema) multivit-minerals no.73-iron 1 cap PO DAILY #30 caps 12/19/23 fumarate 106 mg-folic acid 1 mg capsule polyethylene glycol 3350 17 17 g PO BID #850 grams 12/19/23 gram/dose oral powder (Miralax) tramadol 50 mg tablet 50 mg PO TID PRN pain 30 days #90 01/13/24 tabs sucralfate 100 mg/mL oral 10 ml PO QID #840 mL 01/16/24 suspension (Carafate) acamprosate 333 mg tablet,delayed 333 mg PO BID #60 tabs 01/18/24 release blood sugar diagnostic (FreeStyle #100 ea 01/21/24 Lite Strips) blood-glucose meter (FreeStyle #1 ea 01/21/24 Lite Meter kit) nitrofurantoin 100 mg PO BID 7 days #14 caps 02/11/24 monohydrate/macrocrystals 100 mg capsule tramadol 25 mg tablet 25 mg PO Q6H PRN pain (scale score 02/11/24 7-10) #4 tabs Allergies Allergy/AdvReac Type Severity Reaction Status Date / Time hydrocodone [HYDROCODONE] Allergy Severe RASH, Verified 02/11/24 09:36 AIRWAY CLOSES ibuprofen [From MOTRIN] Allergy Intermediate STOMACH Verified 02/11/24 09:36 UPSET, vomiting trazodone [TRAZODONE] Allergy Intermediate stomach Verified 02/11/24 09:36 upset/anxiety tomato [TOMATO] Allergy Mild HIVES Verified 02/11/24 09:36 DIFFICULTY BREATHING egg Allergy Swelling Verified 02/11/24 09:36 black pepper [BLACK PEPPER] AdvReac Severe DIFFICULTY Verified 02/11/24 09:36 BREATHING, hives lisinopril AdvReac Severe Anaphylaxis Verified 02/11/24 09:36 Review of Systems Review of Systems Constitutional: No fever, chills, fatigue, night sweats, weight changes ENT/Mouth: No ear pain, hearing loss, nasal congestion, sinus pain, rhinorrhea, sore throat Eyes: No eye pain, swelling, redness, vision changes, discharge Cardio: No chest pain, palpitations, MCGOVERN, orthopnea, peripheral edema Pulm: No SOB, cough, sputum, wheezing, dyspnea, hemoptysis GI: No hematemesis,constipation, hematochezia, melena, +nausea, +vomiting, +diarrhrea, +abdominal pain : No irregular bleeding, urgency, hesitancy, hematuria, flank pain, urinary flow changes, urinary incontinence or retention, +urinary frequency, +dysuria, +foul smelling urine MSK: No back pain, neck pain, joint pain, myalgias Skin: No lesions, rashes Neuro: No weakness, numbness, paresthesias, LOC, dizziness, headache Psych: No anxiety/panic, depression, SI/HI, AH/VH All other systems reviewed and are negative. [facility] Past Medical History Attestation statement: The following information was validated with the patient. 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 Spondylosis of lumbar spine Diverticulosis Insomnia Vitamin D deficiency GERD (gastroesophageal reflux disease) Carpal tunnel syndrome Hypercholesterolemia Renal calculi Hypertension Alcohol abuse Anxiety and depression Surgical History History of esophagogastroduodenoscopy (EGD) Hx of colonoscopy Hx of bariatric surgery History of tubal ligation H/O: hysterectomy Family History Family History Father Medical history unknown Mother Medical history unknown Paternal Aunt Uterine cancer Diabetes Hypertension Paternal Uncle Liver cancer Heart attack Lung cancer Maternal Aunt Stroke Family/Other Chronic mental illness Sister Uterine cancer Schizophrenia Brother Substance abuse Paternal Grandmother Lung cancer Other Mental health disorder Social History Social History Household Members: None Housing: Apartment Do you presently have visiting nurse or other home services: Yes Alcohol intake: current Alcohol intake frequency: a few times a month Alcohol type: beer Patient Tobacco Use Status: Former Tobacco user Tobacco use type: Cigarette Smoked in Last 30 Days: No e-Cigarette/Vaping Use: Never Used Second Hand Smoke Exposure: No Use of substances other than those prescribed or required for medical reasons: Yes Substance Use Type: Marijuana Advance Directives: No Advance Directives Information Provided: No service: No Current occupational status: disabled Current occupational exposures/hazards: No Cognitive needs: No Hearing needs: No Vision needs: Yes Physical Exam ED Vital Signs: Vital Signs - 24 hr 02/11/24 09:35 02/11/24 12:40 02/11/24 15:07 Temperature 98.0 F Pulse Rate 71 63 75 Respiratory Rate 16 12 20 Blood Pressure 136/95 H 157/85 H 184/69 H Pulse Oximetry 100 93 Oxygen Delivery Method Room Air Room Air Room Air 02/11/24 16:08 Temperature 98.4 F Pulse Rate 76 Respiratory Rate 16 Blood Pressure 139/96 H Pulse Oximetry 96 Oxygen Delivery Method Room Air BMI result Body Mass Index 21.2 Patient hypertensive, vitals otherwise WNL. Const General: cooperative, healthy appearing, comfortable and no acute distress Orientation/consciousness: patient oriented x3 Limitations: no limitations HENMT Head: Yes normal to inspection, Yes No palpable skull fracture present, Yes normocephalic and Yes atraumatic Eyes General: appearance normal, both eyes and all related structures Resp Effort & Inspection: normal respiratory effort and able to speak in complete sentences Auscultation: clear to auscultation bilaterally Cardio Rate: regular rate Rhythm: regular rhythm GI Other: Abdomen soft, nondistended, nontender to palpation, no rebound tenderness or guarding, normoactive bowel sounds x4. General: Yes no CVA tenderness Back/Spine/Pelvis Back: no CVA tenderness Skin General skin exam: no rashes or lesions noted Neuro General: patient oriented x3 and gait normal Extrem General: Yes normal to inspection Course Course Course Narrative: 1553-- CBC without leukocytosis or left shift. No anemia. H&H stable. Chemistry without acute electrolyte abnormality requiring intervention. Normal renal and liver function. Beta HCG undetectable. Not . Urinalysis showing small amount of leukocyte esterase, 11-20 urine WBCs, 6-10 squamous epithelial cells, 3+ urine bacteria. this may represent contamination however given patient is symptomatic, will treat for urinary tract infection. Nitrofurantoin will be sent to pharmacy for treatment. Patient is agreeable with this. C diff negative. GI panel pending. I advised patient that she will be contacted with any abnormal results. CT abdomen/pelvis without acute intracranial pathology. No evidence of nephrolithiasis. There is incidental finding of diverticulosis without acute diverticulitis. Patient has remained stable throughout ED visit today. She has had no episodes of vomiting while in ED and is tolerating crackers and water. Discussed worrisome signs and symptoms and when to return to the ED. All questions answered at this time. Patient is agreeable with disposition and stable for discharge. Medical Decision Making Medical Decision Making [facility] Narrative: 43-year-old Argentine-speaking female with past medical history significant for type 2 diabetes, gastritis, GERD, diverticulosis, hypertension, anxiety, depression, ETOH abuse, bipolar disorder, schizophrenia presents to the ED today for evaluation of dysuria, foul-smelling urine, increased urinary frequency and lower abdominal pain x1 week. Patient is slightly hypertensive, vitals otherwise WNL. Afebrile. She is nontoxic-appearing and in no acute distress. Lying comfortably on the exam bed, talking on her phone. On exam, abdomen is soft, nondistended, nontender to palpation, no rebound tenderness or guarding. no CVAT bilaterally. Skin warm, dry, intact. No rashes. Moist mucous membranes. Differential diagnosis includes urinary tract infection, nephrolithiasis, renal colic, hydronephrosis, cholecystitis, biliary colic, diverticulitis, diverticulosis, gastroenteritis, gastritis, pancreatitis. lower suspicion for intrauterine , ectopic , ovarian cyst/rupture, pyelonephritis, cholangitis, acute abdomen, ischemic bowel, SBO. Plan for labs, urinalysis, CT abdomen / pelvis, pain control, IV fluids, re-evaluation. Differential Diagnosis Differential Diagnoses: The differential diagnosis associated with the presentation includes as above. Admission/Observation Not indicated. Lab Data MDM Lab Attestation statement: I reviewed the patient's lab results. as above. 02/11/24 10:28 02/11/24 10:28 Labs: Lab Results 02/11/24 02/11/24 02/11/24 Range/Units 10:28 10:42 13:51 WBC 4.4 L (4.8-10.8) X10*3/uL RBC 4.53 (4.20-5.50) X10*6/uL Hgb 13.9 (12.0-16.0) g/dl Hct 41.0 (37.0-47.0) % MCV 90.5 (80.0-98.0) fL MCH 30.7 (27.0-33.0) pg MCHC 33.9 (31.0-35.0) g/dl RDW 13.0 (11.0-16.0) % Plt Count 300 (160-400) X10*3/uL MPV 9.9 (9.4-12.3) fL Immature Gran % (Auto) 0.2 (0.0-0.4) % Neut % (Auto) 54.7 (45-73) % Lymph % (Auto) 31.7 (20-40) % Putnam % (Auto) 9.5 (2-11) % Eos % (Auto) 2.5 (0-4) % Baso % (Auto) 1.4 (0-2) % Lymph # (Auto) 1.4 (1.2-4.9) X10*3/uL Putnam # (Auto) 0.4 (0.1-1.2) X10*3/uL Eos # (Auto) 0.1 (0.0-0.4) X10*3/uL Baso # (Auto) 0.1 (0.0-0.2) X10*3/uL Abs Immat Gran (auto) 0.01 (0.00-0.03) X10*3/uL Absolute Neuts (auto) 2.4 (2.0-8.3) x10*3/uL Absolute Nucleated RBC 0.000 (0.0-0.012) X10*3/uL Nucleated RBC % (auto) 0.0 (0.0-0.2) /100WBC Sodium 141 (135-145) mmol/L Potassium 4.2 (3.3-5.1) mmol/L Chloride 102 (96-108) mmol/L Carbon Dioxide 28 (22-29) mmol/L Anion Gap 15 (12-20) BUN 11 (9-16) mg/dL Creatinine 0.67 (0.5-1.4) mg/dL Estim Creat Clear Calc 81.7 Estimated GFR > 60 POC Glucose (60-115) mg/dL Random Glucose 86 (60-115) mg/dL Calcium 9.4 (8.4-10.2) mg/dL Total Bilirubin 0.9 (0.0-1.0) mg/dL Direct Bilirubin 0.3 (0.0-0.5) mg/dL AST 20 (5-31) U/L ALT 10 (0-31) U/L Alkaline Phosphatase 79 (39-117) U/L Total Protein 7.9 (6.5-8.0) g/dL Albumin 4.8 (3.5-5.0) g/dL Lipase 12 (8-78) U/L Urine Color Dark Yellow Urine Appearance Cloudy Urine pH 6.0 (5.0-9.0) Ur Specific Garrison >= 1.030 H (1.005-1.025) Urine Protein 100 (2+) H (Neg-Trace) mg/dL Urine Glucose (UA) Negative (Negative) mg/dL Urine Ketones Trace (Negative) mg/dL Urine Blood Negative (Negative) Urine Nitrite Negative (Negative) Ur Leukocyte Esterase Small (1+) H (Negative) Urine RBC 0-2 (0-2) /HPF Urine WBC 11-20 (0-5) /HPF Ur Squamous Epith Cells 6-10 (0-2) /HPF Urine Bacteria 3+ (None Seen) Hyaline Casts 0-2 (0-2) /LPF Urine Test NEGATIVE (NEGATIVE) C. difficile Tox B Gene NEGATIVE (Negative) 02/11/24 Range/Units 15:29 WBC (4.8-10.8) X10*3/uL RBC (4.20-5.50) X10*6/uL Hgb (12.0-16.0) g/dl Hct (37.0-47.0) % MCV (80.0-98.0) fL MCH (27.0-33.0) pg MCHC (31.0-35.0) g/dl RDW (11.0-16.0) % Plt Count (160-400) X10*3/uL MPV (9.4-12.3) fL Immature Gran % (Auto) (0.0-0.4) % Neut % (Auto) (45-73) % Lymph % (Auto) (20-40) % Putnam % (Auto) (2-11) % Eos % (Auto) (0-4) % Baso % (Auto) (0-2) % Lymph # (Auto) (1.2-4.9) X10*3/uL Putnam # (Auto) (0.1-1.2) X10*3/uL Eos # (Auto) (0.0-0.4) X10*3/uL Baso # (Auto) (0.0-0.2) X10*3/uL Abs Immat Gran (auto) (0.00-0.03) X10*3/uL Absolute Neuts (auto) (2.0-8.3) x10*3/uL Absolute Nucleated RBC (0.0-0.012) X10*3/uL Nucleated RBC % (auto) (0.0-0.2) /100WBC Sodium (135-145) mmol/L Potassium (3.3-5.1) mmol/L Chloride (96-108) mmol/L Carbon Dioxide (22-29) mmol/L Anion Gap (12-20) BUN (9-16) mg/dL Creatinine (0.5-1.4) mg/dL Estim Creat Clear Calc Estimated GFR POC Glucose 86 (60-115) mg/dL Random Glucose (60-115) mg/dL Calcium (8.4-10.2) mg/dL Total Bilirubin (0.0-1.0) mg/dL Direct Bilirubin (0.0-0.5) mg/dL AST (5-31) U/L ALT (0-31) U/L Alkaline Phosphatase (39-117) U/L Total Protein (6.5-8.0) g/dL Albumin (3.5-5.0) g/dL Lipase (8-78) U/L Urine Color Urine Appearance Urine pH (5.0-9.0) Ur Specific Garrison (1.005-1.025) Urine Protein (Neg-Trace) mg/dL Urine Glucose (UA) (Negative) mg/dL Urine Ketones (Negative) mg/dL Urine Blood (Negative) Urine Nitrite (Negative) Ur Leukocyte Esterase (Negative) Urine RBC (0-2) /HPF Urine WBC (0-5) /HPF Ur Squamous Epith Cells (0-2) /HPF Urine Bacteria (None Seen) Hyaline Casts (0-2) /LPF Urine Test (NEGATIVE) C. difficile Tox B Gene (Negative) Independent Interpretation I performed an independent interpretation of an: CT Scan Interpretation: CT abdomen/ pelvis without acute intra-abdominal pathology, agree with radiologist's interpretation. Radiology Impression Discussion of test interpretation with radiology: I have reviewed the radiologist's reading. Radiologist Impression: EXAMINATION: CT ABDOMEN AND PELVIS WITHOUT CONTRAST CLINICAL INFORMATION: Lower abdominal pain COMPARISON: CT abdomen pelvis 11/19/2023 and 09/07/2023 as well as other prior exams. TECHNIQUE: Multidetector volumetric imaging was performed from the superior aspect of the liver through the pubic symphysis. Sagittal and coronal reformatted images were obtained on the technologist's workstation. This CT examination was performed using dose optimization techniques as appropriate, variously including the following: *Automated exposure control *Adjustment of mA and/or kV according to patient size (this includes techniques or standardized protocols for targeted exams where dose is matched to indication/reason for exam; i.e. extremities or head) *Use of iterative reconstruction technique DLP: 297 mGy-cm FINDINGS: LUNG BASES: The visualized lung bases are unremarkable. LIVER, GALLBLADDER, AND BILIARY TREE: The liver is normal in size, shape, and attenuation. No focal hepatic lesion or biliary ductal dilatation is present. The gallbladder is unremarkable with no evidence of radiopaque gallstones, gallbladder wall thickening, or obvious pericholecystic inflammatory changes. PANCREAS: Unremarkable. SPLEEN: Unremarkable. ADRENAL GLANDS: Unremarkable. KIDNEYS AND URETERS: The kidneys are normal in size, shape, and attenuation. No hydronephrosis, hydroureter, or calculi seen. No perinephric stranding. BLADDER: Unremarkable. GASTROINTESTINAL TRACT: Status post gastric bypass. Moderate stool present in the colon. There is diverticulosis without diverticulitis. No bowel obstruction. The small and large bowel are unremarkable. The appendix is unremarkable. ABDOMINAL WALL: No significant hernia is appreciated. LYMPH NODES: Normal. VASCULAR: Unremarkable. PELVIC VISCERA: The uterus is not seen. An abnormal adnexal mass is not detected. No free intraperitoneal fluid is present. OSSEOUS STRUCTURES: Unremarkable. CT/CT abdomen pelvis wo IV con IMPRESSION: 1. A cause for the patient's lower abdominal pain has not been found. 2. Incidental note made of gastric bypass, diverticulosis without diverticulitis and hysterectomy. Fleischner guidelines were followed. External Record Review External record reviewed: Inpatient record, Office record, Outpatient record, Prior outpatient labs, Prior outpatient radiology, Primary care record and Outside ED record Prescription Management I considered prescription management with: Antibiotic (nitrofurantoin) Social Determinants Patient?s care significantly limited by Social Determinants of Health including: Other Social Determinant of Health Medications Administered Discontinued Medications Generic Name Dose Route Start Last Admin Trade Name Freq PRN Reason Stop Dose Admin Sodium Chloride 1,000 mls @ 999 mls/hr 02/11/24 11:45 02/11/24 14:23 Ns IV 02/11/24 12:45 Infused .Q1H1M OSBALDO Infusion Morphine Sulfate 4 mg 02/11/24 11:33 02/11/24 11:56 Morphine Sulfate 4 Mg/Ml Cartridge IVPUSH 02/11/24 11:34 4 mg ONCE ONE Administration Protocol Morphine Sulfate 4 mg 02/11/24 14:20 02/11/24 14:26 Morphine Sulfate 4 Mg/Ml Cartridge IVPUSH 02/11/24 14:21 4 mg ONCE ONE Administration Protocol Ondansetron HCl 4 mg 02/11/24 11:33 02/11/24 11:57 Ondansetron Hcl 4 Mg/2 Ml Vial IVPUSH 02/11/24 11:34 4 mg ONCE ONE Administration Critical Care Time Critical Care Time Critical Care Time: No Discharge Plan Discharge Clinical Impression: Urinary tract infection Qualifiers: Urinary tract infection type: acute cystitis Hematuria presence: without hematuria Qualified Code(s): N30.00 - Acute cystitis without hematuria Patient Disposition: Home, Self-Care Instructions: Urinary Tract Infection in Women (ED) Additional Instructions: Your blood work today is reassuring. The ultrasound of your right upper abdomen obtained yesterday is normal. The CT scan of your abdomen is normal. Your urine shows small infection. Nitrofurantoin is an antibiotic that has been sent to your pharmacy. Take this as prescribed and do not miss any doses. You must complete the entire course of antibiotics. If you do not, there is a risk of the infection coming back or worsening. Your stool was sent to the lab for further evaluation. You will be contacted with any abnormal results. Take tylenol/ motrin at home as needed for pain. Follow up with your primary care provider as needed. If you develop a fever or new/ worsening symptoms call 911 or come back to the ER for further evaluation. Prescriptions: New nitrofurantoin monohyd/m-cryst 100 mg capsule 100 mg PO BID 7 Days Qty: 14 0RF Rx Instructions: must administer with a meal/food tramadol 25 mg tablet 25 mg PO Q6H PRN (Reason: pain (scale score 7-10)) Qty: 4 0RF No Action (DME) CANE See Rx Instructions .Route .MEDSUPPLY Qty: 1 0RF Rx Instructions: As directed (DME) WRIST BRACE See Rx Instructions .Route .MEDSUPPLY Qty: 1 0RF Rx Instructions: As directed (DME) BATH CHAIR See Rx Instructions .Route .MEDSUPPLY Qty: 1 0RF Rx Instructions: As directed (DME) LIFELINE ALERT SYSTEM See Rx Instructions .Route .MEDSUPPLY Qty: 1 0RF Rx Instructions: As directed (DME) ALCOHOL PADS See Rx Instructions .Route .MEDSUPPLY Qty: 100 3RF Rx Instructions: As directed (DME) SHOWER WAND See Rx Instructions .Route .MEDSUPPLY Qty: 1 0RF Rx Instructions: As directed (DME) SHOWER BAR See Rx Instructions .Route .MEDSUPPLY Qty: 1 0RF Rx Instructions: As directed (DME) Bedside commode See Rx Instructions .Route .MEDSUPPLY Qty: 1 0RF Rx Instructions: As directed (DME) Bed pads See Rx Instructions .Route .MEDSUPPLY Qty: 100 12RF Rx Instructions: As directed (DME) SANITARY PADS See Rx Instructions .Route .MEDSUPPLY Qty: 100 12RF Rx Instructions: As directed Ensure Complete 0.1 gram-1.18 kcal/mL liquid 1 ea PO TID Qty: 1184 12RF (DME) ROLLATOR See Rx Instructions .Route .MEDSUPPLY Qty: 1 0RF Rx Instructions: As directed simethicone 40 mg/0.6 mL drops,suspension 0.6 ml PO BID-TID PRN (Reason: abdominal distention) Qty: 15 0RF (DME) blood pressure monitor [Blood Pressure Kit] Kit See Rx Instructions .Route Qty: 1 0RF Rx Instructions: As directed pantoprazole 40 mg tablet,delayed release (DR/EC) 40 mg PO BID 90 Days Qty: 180 1RF alum-mag hydroxide-simeth [Maalox Advanced] 200-200-20 mg/5 mL suspension 5 ml PO 5XD PRN (Reason: indigestion) Qty: 355 4RF Rx Instructions: administer between meals and at bedtime mv-mins no.73-iron fum-folic 106 mg iron- 1 mg capsule 1 cap PO DAILY Qty: 30 4RF polyethylene glycol 3350 [Miralax] 17 gram/dose powder 17 g PO BID Qty: 850 0RF tramadol 50 mg tablet 50 mg PO TID PRN (Reason: pain) 30 Days Qty: 90 0RF sucralfate [Carafate] 100 mg/mL suspension 10 ml PO QID Qty: 840 1RF acamprosate 333 mg tablet,delayed release (DR/EC) 333 mg PO BID Qty: 60 0RF (DME) FreeStyle Lite Strips Strip See Rx Instructions .ROUTE .MEDSUPPLY Qty: 100 3RF Rx Instructions: use daily As directed to check blood sugars for diabetes (DME) blood-glucose meter [FreeStyle Lite Meter] Kit See Rx Instructions .ROUTE .MEDSUPPLY Qty: 1 0RF Rx Instructions: Use daily As directed to check blood glucose ondansetron 4 mg tablet,disintegrating 4 mg PO Q8H Qty: 20 0RF sumatriptan 5 mg/actuation spray,non-aerosol 5 mg intranasal Q2-4H PRN (Reason: migraine headache) Qty: 6 1RF Rx Instructions: into each nostril once; if headache remains, may repeat total dose once after at least 2 hours cyclobenzaprine 5 mg tablet 5 mg PO Q8H PRN (Reason: pain (scale score 7-10)) 5 Days Qty: 14 0RF famotidine [Pepcid] 20 mg tablet 20 mg PO BID 10 Days Qty: 20 0RF prochlorperazine [Compro] 25 mg suppository 25 mg IA Q12H PRN (Reason: nausea and vomiting) Qty: 12 0RF Miracle Mouthwash-Alan 240 mL liquid 15 ml PO BID Qty: 240 0RF Rx Instructions: Nystatin susp 80 mL;Lidocaine 2% Visc 80 mL; Maalox 80 mL; Swish and spit [id number]-waduwb-fvhyagry-scop [] 16.2 mg-0.1037 mg/5 mL (5 mL) elixir 5 ml PO BID PRN (Reason: indigestion) Qty: 50 0RF acetaminophen 160 mg/5 mL liquid 320 mg PO Q6H PRN (Reason: fever or pain) Qty: 473 0RF Fleet Enema 19-7 gram/118 mL enema 197 ml IA DAILY 1 Days Qty: 133 2RF clonazepam 1 mg tablet 1 mg PO TID fluticasone propionate [Flonase Allergy Relief] 50 mcg/actuation spray,suspension 1 spray intranasal DAILY Qty: 100 0RF Rx Instructions: administer into each nostril Linzess 290 mcg capsule 290 mcg PO DAILY Qty: 30 1RF bisacodyl [Dulcolax (bisacodyl)] 10 mg suppository 10 mg IA DAILY PRN (Reason: constipation) Qty: 30 0RF lactulose 20 gram/30 mL solution 30 g PO BID Qty: 3000 0RF (DME) blood-glucose meter [OneTouch Verio Meter[place] [facility] [place] .Route Rx Instructions: As directed (DME) OneTouch Verio test strips Strip See Rx Instructions .Route Rx Instructions: As directed 3 times a day (DME) lancets [OneTouch Delica Lancets] 33 gauge misc See Rx Instructions .Route Rx Instructions: As directed 3 times a day zolpidem 10 mg tablet 10 mg PO BEDTIME PRN (Reason: Insomnia) triamcinolone acetonide 0.1 % cream 1 appl topical DAILY ursodiol 300 mg capsule 300 mg PO BID simethicone [Gas Relief (simethicone)] 80 mg tablet,chewable 160 mg PO BID sodium,potassium,mag sulfates [Suprep Bowel Prep Kit] 17.5-3.13-1.6 gram recon soln See Rx Instructions PO .COMPLEX Qty: 354 0RF Rx Instructions: As per instructions from GI office Referrals: Deirdre Cantrell MD [Primary Care Provider] - Interventions: ED Discharge Assessment Last Done: 02/11/24 16:08 Discharge Date/Time: 02/11/24 16:09 Print Language: Argentine
[2024-02-11 10:37] LABS: Basophils Absolute Auto 0.1 X10*3/uL (0.0-0.2); Basophils Percent Auto 1.4 % (0-2); Eosinophils Absolute Auto 0.1 X10*3/uL (0.0-0.4); Eosinophils Percent Auto 2.5 % (0-4); Hemoglobin 13.9 g/dl (12.0-16.0); Imm Gran Abs Auto 0.01 X10*3/uL (0.00-0.03); Imm Gran Pct Auto 0.2 % (0.0-0.4); Lymphocytes Absolute Auto 1.4 X10*3/uL (1.2-4.9); Lymphocytes Percent Auto 31.7 % (20-40); Mean Corpuscular HGB Conc 33.9 g/dl (31.0-35.0); Mean Corpuscular Hemoglobin 30.7 pg (27.0-33.0); Mean Corpuscular Volume 90.5 fL (80.0-98.0); Mean Platelet Volume 9.9 fL (9.4-12.3); Monocytes Absolute Auto 0.4 X10*3/uL (0.1-1.2); Monocytes Percent Auto 9.5 % (2-11); Neutrophils Absolute Auto 2.4 x10*3/uL (2.0-8.3); Neutrophils Percent Auto 54.7 % (45-73); Platelet Count 300 X10*3/uL (160-400); Red Blood Count 4.53 X10*6/uL (4.20-5.50); White Blood Count 4.4 X10*3/uL (4.8-10.8)
[2024-02-11 10:50] LABS: Appearance Urine Cloudy; Color Urine Dark Yellow; Glucose Urine UA Negative (Negative); Leukocyte Esterase Urine Small (1+) (Negative); Nitrite Urine Negative (Negative); Specific Gravity - Urine >= 1.030 (1.005-1.025); UMIC TRIGGER UACC YES; Urine Blood Negative (Negative); Urine Ketones Trace mg/dL (Negative); Urine Protein 100 (2+) mg/dL (Neg-Trace)
[2024-02-11 10:51] LABS: UPreg QC Valid YES; Urine Pregnancy NEGATIVE (NEGATIVE)
[2024-02-11 10:53] LABS: Alanine Aminotransferase 10 U/L (0-31); Albumin Level 4.8 g/dL (3.5-5.0); Alkaline Phosphatase 79 U/L (39-117); Anion Gap 15 (12-20); Aspartate Amino Transferase 20 U/L (5-31); Bilirubin Direct 0.3 mg/dL (0.0-0.5); Bilirubin Total 0.9 mg/dL (0.0-1.0); Blood Urea Nitrogen 11 mg/dL (9-16); Calcium 9.4 mg/dL (8.4-10.2); Carbon Dioxide 28 mmol/L (22-29); Chloride 102 mmol/L (96-108); Creatinine Clr Calc Pharmacy 81.7; Estimated Glomerular Filt Rate > 60; Glucose Random 86 mg/dL (60-115); Lipase 12 U/L (8-78); Potassium 4.2 mmol/L (3.3-5.1); Sodium 141 mmol/L (135-145); Total Protein 7.9 g/dL (6.5-8.0)
[2024-02-11 11:02] LABS: Bacteria Urine 3+ (None Seen); Hyaline Casts Urine 0-2 /LPF (0-2); RBC Urine 0-2 /HPF (0-2); UACC Culture Trigger YES
[2024-02-11] MEDS: Morphine Sulfate 4 MG/ML CARTRIDGE IVPUSH ×2 (11:56→14:26)
[2024-02-11] MEDS: ondansetron HCL 4 MG/2 ML VIAL IVPUSH (11:57)
[2024-02-11] MEDS: 0.9 % Sodium Chloride 1,000 ML 999 ML IV (11:57)
[2024-02-11 12:40] VITALS: BP 157/85; PULSE 63; RESP 12
[2024-02-11 15:07] VITALS: BP 184/69; PULSE 75; RESP 20; O2SAT 93
--- NOTE | 2024-02-11 15:26 | PC.NURSE ---
Called lab spoke to Jovanna to see when stool sample is returning, GI panel takes 24 hours, cdiff PCR to be back in 5 minutes
[2024-02-11 15:27] LABS: CDiff Gene PCR NEGATIVE (Negative)
[2024-02-11 15:32] LABS: Glucose, Whole Blood 86 mg/dL (60-115)
[2024-02-11 16:08] VITALS: BP 139/96; PULSE 76; RESP 16; TEMP 36.9; O2SAT 96
[2024-02-11 16:29] LABS: Adenovirus F 40/41 Not Detected (Not Detect.); Astrovirus Not Detected (Not Detect.); Campylobacter Not Detected (Not Detect.); Cryptosporidium Not Detected (Not Detect.); Cyclospora cayetanensis Not Detected (Not Detect.); E. coli EAEC Not Detected (Not Detect.); E. coli EPEC Not Detected (Not Detect.); E. coli ETEC Not Detected (Not Detect.); E. coli STEC Not Detected (Not Detect.); Entamoeba histolytica Not Detected (Not Detect.); Giardia lamblia Not Detected (Not Detect.); Norovirus GI/GII Not Detected (Not Detect.); Plesiomonas shigelloides Not Detected (Not Detect.); Rotavirus A Not Detected (Not Detect.); Salmonella Not Detected (Not Detect.); Sapovirus Not Detected (Not Detect.); Shigella sp./EIEC Not Detected (Not Detect.); Vibrio Not Detected (Not Detect.); Vibrio Cholerae Not Detected (Not Detect.); Yersinia enterocolitica Not Detected (Not Detect.)
== END 2024-02-11 16:09 | disposition home or self-care (01) ==
PROVIDERS: Physician Assistant Medical; Emergency Provider Emergency Medicine; PCP Internal Medicine
DX: N30.00 Acute cystitis without hematuria (principal); R10.2 Pelvic and perineal pain; R11.2 Nausea with vomiting, unspecified; Z79.899 Other long term (current) drug therapy
CPT/HCPCS: 36415; 74176; 80048; 80076; 81001; 81025; 82947; 83690; 85025; 87086; 87493; 87507; 96361; 96374; 96375; 96376; 99284; J2270; J2405

== ENCOUNTER 2024-03-06 09:57 | Outpatient (REF) | payer OTHER, SELFPAY ==
--- NOTE | ~2024-03-06 | CT_ITS ---
EXAMINATION: CT ABDOMEN AND PELVIS WITHOUT AND WITH CONTRAST CLINICAL INFORMATION: Gross hematuria COMPARISON: CT abdomen pelvis February 11, 2024. Ultrasound right upper quadrant February 10, 2024. TECHNIQUE: Noncontrast CT of the abdomen and pelvis is performed followed by split bolus contrast-enhanced images using 85 mL Omnipaque 350 contrast.? Postcontrast imaging is performed during the combined nephrogram and excretion phase. Sagittal and coronal reformatted images were obtained on the technologist's workstation for both the precontrast and postcontrast phases. This CT examination was performed using dose optimization techniques as appropriate, variously including the following: *Automated exposure control *Adjustment of mA and/or kV according to patient size (this includes techniques or standardized protocols for targeted exams where dose is matched to indication/reason for exam; i.e. extremities or head) *Use of iterative reconstruction technique DLP: 357 mGy-cm FINDINGS: LUNG BASES: The visualized lung bases are unremarkable. LIVER, GALLBLADDER, AND BILIARY TREE: There are a few scattered cysts in the liver. No suspicious liver lesion. There is no intrahepatic bile duct dilatation. The gallbladder is unremarkable with no evidence of radiopaque gallstones, gallbladder wall thickening, or obvious pericholecystic inflammatory changes. PANCREAS: Unremarkable. SPLEEN: Unremarkable. ADRENAL GLANDS: Unremarkable. KIDNEYS AND URETERS: The kidneys are normal in size, shape, and attenuation. No hydronephrosis, hydroureter, or calculi seen. No perinephric stranding. Normal enhancement of the cortex of the kidneys post contrast. No filling defects in the collecting system of either right or left kidney. BLADDER: Unremarkable. GASTROINTESTINAL TRACT: Status post gastric bypass surgery. Numerous diverticula of the sigmoid colon. No acute change of bowel. No evidence of diverticulitis. No bowel wall thickening or edema. No bowel obstruction. Small to moderate volume of scattered stool:. The appendix is not visualized. There is no inflammation of the mesentery. ABDOMINAL WALL: No significant hernia is appreciated. LYMPH NODES: Normal. VASCULAR: Unremarkable. PELVIC VISCERA: Status post hysterectomy. OSSEUS STRUCTURES: Unremarkable. CT/CT urogram IMPRESSION: 1. No acute abnormality CT scan abdomen pelvis. 2. Normal kidneys, ureter and bladder. 3. Status post gastric bypass surgery. Diverticulosis of the colon. No acute abnormality of the bowel.
[2024-03-06] MEDS: iohexoL 350 MG/ML 100 ML INFUS..BTL 85 ML IV (10:51)
== END 2024-03-06 09:58 | disposition home or self-care (01) ==
LOC: HO.CT 09:57
PROVIDERS: Visit Provider Physician Assistant
DX: R31.0 Gross hematuria (principal)
CPT/HCPCS: 74178; Q9967

== ENCOUNTER 2024-03-17 09:58 | Emergency (ER) | payer OTHER, SELFPAY ==
--- NOTE | ~2024-03-17 | XR_ITS ---
EXAMINATION: XR ABDOMEN KUB CLINICAL INFORMATION: Constipation, pain. COMPARISON: CT urogram of 03/06/2024, x-ray abdomen 11/11/2023. TECHNIQUE: Single AP view of the abdomen. FINDINGS: Nonobstructive bowel gas pattern. Moderate to large amount of stool throughout the colon. No radiopaque renal calculi are appreciated, although evaluation limited due to overlying bowel. Postsurgical changes in the left upper quadrant. Mild levoscoliosis of the lumbar spine. XR/XR KUB IMPRESSION: Nonobstructive bowel gas pattern. Moderate to large amount of stool throughout the colon. This study was presented today March 17, 2024 for interpretation. Stat results provided at this time as requested by referring provider.
--- NOTE | ~2024-03-17 | CT_ITS ---
EXAMINATION: CT ABDOMEN AND PELVIS WITH CONTRAST, NOT PERFORMED CLINICAL INFORMATION: Lack of flatus and bowel movements. Prior gastric bypass COMPARISON: CT dated 03/06/2024 TECHNIQUE: Extravasation of IV contrast occurred during the exam. Per the technologist, attempt was made for additional IV access, though the patient declined to have the examination . Only clinical informaticist images were obtained. No cross-sectional CT images were obtained. CT/CT abdomen pelvis w IV con FINDINGS/IMPRESSION: Examination not performed, declined by the patient following failure to obtain IV access. Nutritionist Public Health images demonstrate clear lung bases and a nondilated bowel gas pattern. Moderate volume of stool in the colon.
[2024-03-17 10:24] VITALS: BP 142/104; PULSE 79; RESP 16; TEMP 36.8; O2SAT 98; BMI 22.3
[2024-03-17 10:53] LABS: MANUAL DIFF FLAG NO
[2024-03-17 10:57] LABS: Basophils Percent Auto 0.7 % (0-2); Eosinophils Absolute Auto 0.1 X10*3/uL (0.0-0.4); Eosinophils Percent Auto 2.1 % (0-4); Hematocrit 41.8 % (37.0-47.0); Hemoglobin 14.1 g/dl (12.0-16.0); Imm Gran Abs Auto 0.01 X10*3/uL (0.00-0.03); Imm Gran Pct Auto 0.2 % (0.0-0.4); Lymphocytes Absolute Auto 1.5 X10*3/uL (1.2-4.9); Lymphocytes Percent Auto 26.1 % (20-40); Mean Corpuscular HGB Conc 33.7 g/dl (31.0-35.0); Mean Corpuscular Hemoglobin 30.1 pg (27.0-33.0); Mean Corpuscular Volume 89.1 fL (80.0-98.0); Mean Platelet Volume 9.7 fL (9.4-12.3); Monocytes Absolute Auto 0.6 X10*3/uL (0.1-1.2); Monocytes Percent Auto 10.4 % (2-11); Neutrophils Absolute Auto 3.4 x10*3/uL (2.0-8.3); Neutrophils Percent Auto 60.5 % (45-73); Platelet Count 328 X10*3/uL (160-400); Red Blood Count 4.69 X10*6/uL (4.20-5.50); Red Cell Distribution Width 13.4 % (11.0-16.0); White Blood Count 5.7 X10*3/uL (4.8-10.8)
[2024-03-17 11:12] LABS: Alanine Aminotransferase 12 U/L (0-31); Albumin Level 4.6 g/dL (3.5-5.0); Alkaline Phosphatase 71 U/L (39-117); Anion Gap 14 (12-20); Aspartate Amino Transferase 20 U/L (5-31); Bilirubin Direct 0.2 mg/dL (0.0-0.5); Bilirubin Total 0.7 mg/dL (0.0-1.0); Blood Urea Nitrogen 11 mg/dL (9-16); Calcium 9.9 mg/dL (8.4-10.2); Carbon Dioxide 28 mmol/L (22-29); Chloride 101 mmol/L (96-108); Creatinine Clr Calc Pharmacy 77.7; Estimated Glomerular Filt Rate > 60; Glucose Random 86 mg/dL (60-115); Lipase 10 U/L (8-78); Potassium 4.1 mmol/L (3.3-5.1); Sodium 139 mmol/L (135-145); Total Protein 7.4 g/dL (6.5-8.0)
[2024-03-17 19:41] LABS: Glucose, Whole Blood 45 mg/dL (60-115)
[2024-03-17 19:46] VITALS: BP 155/60; PULSE 68; RESP 16; TEMP 36.8
[2024-03-17 19:55] VITALS: BP 163/96; PULSE 65; RESP 16; TEMP 36.8; O2SAT 96
[2024-03-17 20:21] LABS: Glucose, Whole Blood 87 mg/dL (60-115)
[2024-03-17 21:39] LABS: Ethanol < 10 mg/dL
--- NOTE | 2024-03-17 21:52 | ED.ABDPAIN ---
HPI - Abdominal Pain General Chief Complaint: Abdominal Pain Stated Complaint: Abd pain Time Seen by Provider: 03/17/24 20:57 Source: patient Mode of arrival: ambulatory Limitations: no limitations History of Present Illness ED Provider: EMMA HPI narrative: 43 yo female with PMH of chronic constipation on miralax and linzess, s/p lap gastric bypass at [facility] in Jun 2023 but she chronically presents here with n/v and abdominal pain does not go the [facility] ER notes her next appointment with bariatrics is in March, DM, anemia, dysphagia, adrenal insufficiency, HTN, GERD, HLD, here with c/o again of 2 weeks of abdominal pain, distention no BM x 2 weeks despite medications and what she has is foamy and red. She reports nause unable to eat and feels weak. She reports syncopal event yesterday no trauma due to weakness. She was eating crackers and drinking tessy meenu on my arrival to the room. MD elicited complaint: abdominal pain Pertinent past history: constipation Onset (ago): week(s) (2) Pain Consistency: constant Location: periumbilical Severity: similar to previous episodes Quality: cramping Radiation: none Migration to: no migration Exacerbating factors: eating Relieving factors: nothing Context: history of similar episodes Associated symptoms: nausea, vomiting and constipation Treatments prior to arrival: other Related Data Home Medications ?Medication ?Instructions ?Recorded ?Confirmed blood sugar diagnostic ([facility] 08/15/22 08/08/23 Verio test strips) blood-glucose meter ([facility] 08/15/22 08/08/23 Verio Meter) lancets [facility] 08[facility]08[facility] Lancets) triamcinolone acetonide 0.1 % 1 appl topical DAILY 02/07/23 08/08/23 topical cream zolpidem 10 mg tablet 10 mg PO BEDTIME PRN Insomnia 02/07/23 08/08/23 simethicone 80 mg chewable tablet 160 mg PO BID 08/07/23 08/08/23 (Gas Relief (simethicone)) ursodiol 300 mg capsule 300 mg PO BID 08/07/23 08/08/23 clonazepam 1 mg tablet 1 mg PO TID 08/08/23 08/08/23 Previous Rx's ?Medication ?Instructions ?Recorded BATH CHAIR #1 ea 01/31/22 CANE #1 ea 01/31/22 LIFELINE ALERT SYSTEM #1 ea 01/31/22 WRIST BRACE #1 ea 01/31/22 ALCOHOL PADS #100 ea 02/21/22 SHOWER BAR #1 ea 06/08/22 SHOWER WAND #1 ea 06/08/22 Bed pads #100 ea 07/17/22 Bedside commode #1 ea 07/17/22 SANITARY PADS #100 ea 07/17/22 food supplemt, lactose-reduced 0.1 1 ea PO TID #1,184 mL 01/29/23 gram-1.18 kcal/mL oral liquid (Ensure Complete) ondansetron 4 mg disintegrating 4 mg PO Q8H nausea and vomiting 03/03/23 tablet #20 tabs sumatriptan 5 mg/actuation nasal 5 mg intranasal Q2-4H PRN migraine 03/03/23 spray headache #6 ea Miracle Mouthwash-Alan 240 mL 15 ml PO BID #240 mL 03/16/23 liquid tsmaigvgt-lzqqccaxw-aoitukeo-scop 5 ml PO BID PRN indigestion #50 mL 03/16/23 16.2 mg-0.1037 mg/5 mL (5 mL) elixir () prochlorperazine 25 mg rectal 25 mg OH Q12H PRN nausea and 03/16/23 suppository (Compro) vomiting #12 ea cyclobenzaprine 5 mg tablet 5 mg PO Q8H PRN pain (scale score 03/20/23 7-10) 5 days #14 tabs acetaminophen 160 mg/5 mL oral 320 mg (10 mL) PO Q6H PRN fever or 05/23/23 liquid pain #473 mL ROLLATOR #1 ea 06/28/23 famotidine 20 mg tablet (Pepcid) 20 mg PO BID 10 days #20 tabs 07/18/23 simethicone 40 mg/0.6 mL oral 0.6 ml PO BID-TID PRN abdominal 08/02/23 drops,suspension distention #15 mL blood pressure monitor (Blood #1 ea 08/06/23 Pressure Kit) fluticasone propionate 50 1 spray intranasal DAILY #100 mL 08/08/23 mcg/actuation nasal spray,suspension (Flonase Allergy Relief) linaclotide 290 mcg capsule 290 mcg PO DAILY #30 caps 08/08/23 (Linzess) sodium,potassium,mag sulfates 17.5 See Rx Instructions PO .COMPLEX 10/03/23 gram-3.13 gram-1.6 gram oral soln #354 mL (Suprep Bowel Prep Kit) pantoprazole 40 mg tablet,delayed 40 mg PO BID 90 days #180 tabs 10/07/23 release aluminum-mag hydroxide-simethicone 5 ml PO 5XD PRN indigestion #355 mL 10/10/23 200 mg-200 mg-20 mg/5 mL oral susp (Maalox Advanced) bisacodyl 10 mg rectal suppository 10 mg OH DAILY PRN constipation 11/14/23 (Dulcolax (bisacodyl)) #30 ea lactulose 20 gram/30 mL oral 30 g (45 mL) PO BID #3,000 mL 11/14/23 solution sodium phosphates 19 gram-7 197 ml OH DAILY 1 day #133 mL 11/19/23 gram/118 mL enema (Fleet Enema) multivit-minerals no.73-iron 1 cap PO DAILY #30 caps 12/19/23 fumarate 106 mg-folic acid 1 mg capsule polyethylene glycol 3350 17 17 g PO BID #850 grams 12/19/23 gram/dose oral powder (Miralax) sucralfate 100 mg/mL oral 10 ml PO QID #840 mL 01/16/24 suspension (Carafate) acamprosate 333 mg tablet,delayed 333 mg PO BID #60 tabs 01/18/24 release blood sugar diagnostic (FreeStyle #100 ea 01/21/24 Lite Strips) blood-glucose meter (FreeStyle #1 ea 01/21/24 Lite Meter kit) nitrofurantoin 100 mg PO BID 7 days #14 caps 02/11/24 monohydrate/macrocrystals 100 mg capsule tramadol 50 mg tablet 50 mg PO TID PRN pain 30 days #90 02/13/24 tabs naloxone 4 mg/actuation nasal spray 4 mg intranasal Q2M PRN opioid 02/19/24 overdose #2 ea Allergies Allergy/AdvReac Type Severity Reaction Status Date / Time hydrocodone [HYDROCODONE] Allergy Severe RASH, Verified 03/17/24 10:28 AIRWAY CLOSES ibuprofen [From MOTRIN] Allergy Intermediate STOMACH Verified 03/17/24 10:28 UPSET, vomiting trazodone [TRAZODONE] Allergy Intermediate stomach Verified 03/17/24 10:28 upset/anxiety tomato [TOMATO] Allergy Mild HIVES Verified 03/17/24 10:28 DIFFICULTY BREATHING egg Allergy Swelling Verified 03/17/24 10:28 black pepper [BLACK PEPPER] AdvReac Severe DIFFICULTY Verified 03/17/24 10:28 BREATHING, hives lisinopril AdvReac Severe Anaphylaxis Verified 03/17/24 10:28 Review of Systems Review of Systems Constitutional : No Weight loss, No Fever, No Chills ENT/Mouth : No sore throat, No Rhinorrhea Eyes: No Swelling, No Redness Cardiovascular : No Chest Pain, No SOB, NoEdema Respiratory : No Cough, No Sputum, No Wheezing Gastrointestinal : Positive Nausea, Positive Vomiting, positive constipation, positive abdominal Pain, No Hematochezia, No Melena Genitourinary : No Dysuria, No Urinary Frequency, No Hematuria, No Urgency Musculoskeletal : No joint pain, No Myalgias, No Joint Swelling Skin : No Skin Lesions, No rash Neuro : pos Weakness, No Numbness, No Dizziness, No Headache Psych : No Anxiety/Panic, No Depression All other systems reviewed and are negative. [facility] Past Medical History Attestation statement: The following information was validated with the patient. 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 Spondylosis of lumbar spine Diverticulosis Insomnia Vitamin D deficiency GERD (gastroesophageal reflux disease) Carpal tunnel syndrome Hypercholesterolemia Renal calculi Hypertension Alcohol abuse Anxiety and depression Surgical History History of esophagogastroduodenoscopy (EGD) Hx of colonoscopy Hx of bariatric surgery History of tubal ligation H/O: hysterectomy Family History Family History Father Medical history unknown Mother Medical history unknown Paternal Aunt Uterine cancer Diabetes Hypertension Paternal Uncle Liver cancer Heart attack Lung cancer Maternal Aunt Stroke Family/Other Chronic mental illness Sister Uterine cancer Schizophrenia Brother Substance abuse Paternal Grandmother Lung cancer Other Mental health disorder Social History Social History Household Members: None Housing: Apartment Do you presently have visiting nurse or other home services: Yes Alcohol intake: current Alcohol intake frequency: a few times a month Alcohol type: beer Patient Tobacco Use Status: Former Tobacco user Tobacco use type: Cigarette e-Cigarette/Vaping Use: Never Used Second Hand Smoke Exposure: No Substance Use Type: Marijuana Advance Directives: No Advance Directives Information Provided: No service: No Current occupational status: disabled Current occupational exposures/hazards: No Cognitive needs: No Hearing needs: No Vision needs: Yes Physical Exam ED Vital Signs: Vital Signs - 24 hr 03/17/24 10:24 03/17/24 19:46 03/17/24 19:55 Temperature 98.3 F 98.2 F 98.2 F Pulse Rate 79 68 65 Respiratory Rate 16 16 16 Blood Pressure 142/104 H 155/60 H 163/96 H Pulse Oximetry 98 96 Oxygen Delivery Method Room Air Room Air 03/17/24 21:56 Temperature 97.8 F Pulse Rate 64 Respiratory Rate 16 Blood Pressure 162/90 H Pulse Oximetry 98 Oxygen Delivery Method Room Air BMI result Body Mass Index 22.3 Appearance: Alert. Oriented X3. No acute distress. eating and drinking in room Eyes: Pupils equal, round and reactive to light. ENT: Pharynx normal. Neck: Normal inspection. Neck supple. CVS: Normal heart rate and rhythm. Pulses normal. Respiratory: No respiratory distress. Breath sounds normal. Abdomen: Soft and mild lower abdominal ttp no rebound or guarding Skin: Skin warm and dry. Normal skin color. Normal skin turgor. Extremities: No lower extremity edema. No calf ttp Neuro: Oriented X 3. No motor deficit. No sensory deficit. Medical Decision Making Medical Decision Making MDM Narrative: 43 yo female with PMH of chronic constipation on miralax and linzess, s/p lap gastric bypass at [facility] in Jun 2023, DM, anemia, dysphagia, adrenal insufficiency, HTN, GERD, HLD, here with c/o constipation, foamy material out rectum, nausea at this time will hydrate, provide nausea medications she is eating at this time, CT scan for obstruction, BS is already up she has presented several times with low blood sugar and responds to eating. Possible chronic pain, poor PO intake, constipation, obstruction Differential Diagnosis Differential Diagnoses: The differential diagnosis associated with the presentation includes chronic pain, poor PO intake, constipation, obstruction Admission/Observation Consideration of admission/observation: Escalation of care including admission/observation considered tolerating PO did not want CT scan keeps saying it makes her dysphagia worse with and without contrast told her I cannot rule out obstruction she is aware she states she will follow up with her surgeon in the ED she has been eating while here no vomiting seems atypical for obstruction Lab Data MDM Lab Attestation statement: I reviewed the patient's lab results. 03/17/24 10:50 03/17/24 10:50 Labs: Lab Results 03/17/24 03/17/24 03/17/24 Range/Units 10:50 19:37 20:17 WBC 5.7 (4.8-10.8) X10*3/uL RBC 4.69 (4.20-5.50) X10*6/uL Hgb 14.1 (12.0-16.0) g/dl Hct 41.8 (37.0-47.0) % MCV 89.1 (80.0-98.0) fL MCH 30.1 (27.0-33.0) pg MCHC 33.7 (31.0-35.0) g/dl RDW 13.4 (11.0-16.0) % Plt Count 328 (160-400) X10*3/uL MPV 9.7 (9.4-12.3) fL Immature Gran % (Auto) 0.2 (0.0-0.4) % Neut % (Auto) 60.5 (45-73) % Lymph % (Auto) 26.1 (20-40) % Nye % (Auto) 10.4 (2-11) % Eos % (Auto) 2.1 (0-4) % Baso % (Auto) 0.7 (0-2) % Lymph # (Auto) 1.5 (1.2-4.9) X10*3/uL Nye # (Auto) 0.6 (0.1-1.2) X10*3/uL Eos # (Auto) 0.1 (0.0-0.4) X10*3/uL Baso # (Auto) 0.0 (0.0-0.2) X10*3/uL Abs Immat Gran (auto) 0.01 (0.00-0.03) X10*3/uL Absolute Neuts (auto) 3.4 (2.0-8.3) x10*3/uL Absolute Nucleated RBC 0.000 (0.0-0.012) X10*3/uL Nucleated RBC % (auto) 0.0 (0.0-0.2) /100WBC Sodium 139 (135-145) mmol/L Potassium 4.1 (3.3-5.1) mmol/L Chloride 101 (96-108) mmol/L Carbon Dioxide 28 (22-29) mmol/L Anion Gap 14 (12-20) BUN 11 (9-16) mg/dL Creatinine 0.67 (0.5-1.4) mg/dL Estim Creat Clear Calc 77.7 Estimated GFR > 60 POC Glucose 45 L* 87 (60-115) mg/dL Random Glucose 86 (60-115) mg/dL Calcium 9.9 (8.4-10.2) mg/dL Total Bilirubin 0.7 (0.0-1.0) mg/dL Direct Bilirubin 0.2 (0.0-0.5) mg/dL AST 20 (5-31) U/L ALT 12 (0-31) U/L Alkaline Phosphatase 71 (39-117) U/L Total Protein 7.4 (6.5-8.0) g/dL Albumin 4.6 (3.5-5.0) g/dL Lipase 10 (8-78) U/L Ethyl Alcohol < 10 mg/dL Independent Interpretation I performed an independent interpretation of an: Plain X-Ray (constipation) Radiology Impression Discussion of test interpretation with radiology: I have reviewed the radiologist's reading. External Record Review External record reviewed: Inpatient record and Outpatient record Medications Administered Discontinued Medications Generic Name Dose Route Start Last Admin Trade Name Freq PRN Reason Stop Dose Admin Droperidol 1.25 mg 03/17/24 21:26 03/17/24 22:16 Droperidol 5 Mg/2 Ml Vial IVPUSH 03/17/24 21:27 1.25 mg ONCE ONE Administration Sodium Chloride 1,000 mls @ 999 mls/hr 03/17/24 21:41 08/19/24 22:13 Ns IV 03/17/24 22:41 999 mls/hr .Q1H1M ONE Administration Discharge Plan Discharge Clinical Impression: Constipation Qualifiers: Constipation type: unspecified constipation type Qualified Code(s): K59.00 - Constipation, unspecified Abdominal pain Qualifiers: Abdominal location: generalized Qualified Code(s): R10.84 - Generalized abdominal pain Patient Disposition: Home, Self-Care Instructions: Abdominal Pain (ED), Constipation (ED) Additional Instructions: please call your surgeon at [facility] tomorrow labs reassuring today no anemia electrolytes normal initial drop in blood sugar responding to eating xray showed mild constipation return for any worsening symptoms or concerns. Prescriptions: No Action (DME) CANE See Rx Instructions .Route .MEDSUPPLY Qty: 1 0RF Rx Instructions: As directed (DME) WRIST BRACE See Rx Instructions .Route .MEDSUPPLY Qty: 1 0RF Rx Instructions: As directed (DME) BATH CHAIR See Rx Instructions .Route .MEDSUPPLY Qty: 1 0RF Rx Instructions: As directed (DME) LIFELINE ALERT SYSTEM See Rx Instructions .Route .MEDSUPPLY Qty: 1 0RF Rx Instructions: As directed (DME) ALCOHOL PADS See Rx Instructions .Route .MEDSUPPLY Qty: 100 3RF Rx Instructions: As directed (DME) SHOWER WAND See Rx Instructions .Route .MEDSUPPLY Qty: 1 0RF Rx Instructions: As directed (DME) SHOWER BAR See Rx Instructions .Route .MEDSUPPLY Qty: 1 0RF Rx Instructions: As directed (DME) Bedside commode See Rx Instructions .Route .MEDSUPPLY Qty: 1 0RF Rx Instructions: As directed (DME) Bed pads See Rx Instructions .Route .MEDSUPPLY Qty: 100 12RF Rx Instructions: As directed (DME) SANITARY PADS See Rx Instructions .Route .MEDSUPPLY Qty: 100 12RF Rx Instructions: As directed Ensure Complete 0.1 gram-1.18 kcal/mL liquid 1 ea PO TID Qty: 1184 12RF (DME) ROLLATOR See Rx Instructions .Route .MEDSUPPLY Qty: 1 0RF Rx Instructions: As directed simethicone 40 mg/0.6 mL drops,suspension 0.6 ml PO BID-TID PRN (Reason: abdominal distention) Qty: 15 0RF (DME) blood pressure monitor [Blood Pressure Kit] Kit See Rx Instructions .Route Qty: 1 0RF Rx Instructions: As directed pantoprazole 40 mg tablet,delayed release (DR/EC) 40 mg PO BID 90 Days Qty: 180 1RF alum-mag hydroxide-simeth [Maalox Advanced] 200-200-20 mg/5 mL suspension 5 ml PO 5XD PRN (Reason: indigestion) Qty: 355 4RF Rx Instructions: administer between meals and at bedtime mv-mins no.73-iron fum-folic 106 mg iron- 1 mg capsule 1 cap PO DAILY Qty: 30 4RF polyethylene glycol 3350 [Miralax] 17 gram/dose powder 17 g PO BID Qty: 850 0RF sucralfate [Carafate] 100 mg/mL suspension 10 ml PO QID Qty: 840 1RF acamprosate 333 mg tablet,delayed release (DR/EC) 333 mg PO BID Qty: 60 0RF (DME) FreeStyle Lite Strips Strip See Rx Instructions .ROUTE .MEDSUPPLY Qty: 100 3RF Rx Instructions: use daily As directed to check blood sugars for diabetes (DME) blood-glucose meter [FreeStyle Lite Meter] Kit See Rx Instructions .ROUTE .MEDSUPPLY Qty: 1 0RF Rx Instructions: Use daily As directed to check blood glucose tramadol 50 mg tablet 50 mg PO TID PRN (Reason: pain) 30 Days Qty: 90 0RF naloxone 4 mg/actuation spray,non-aerosol 4 mg intranasal Q2M PRN (Reason: opioid overdose) Qty: 2 0RF Rx Instructions: spray 1 dose into ONE nostril; alternate nostrils w each dose until help arrives ondansetron 4 mg tablet,disintegrating 4 mg PO Q8H Qty: 20 0RF sumatriptan 5 mg/actuation spray,non-aerosol 5 mg intranasal Q2-4H PRN (Reason: migraine headache) Qty: 6 1RF Rx Instructions: into each nostril once; if headache remains, may repeat total dose once after at least 2 hours cyclobenzaprine 5 mg tablet 5 mg PO Q8H PRN (Reason: pain (scale score 7-10)) 5 Days Qty: 14 0RF famotidine [Pepcid] 20 mg tablet 20 mg PO BID 10 Days Qty: 20 0RF prochlorperazine [Compro] 25 mg suppository 25 mg OH Q12H PRN (Reason: nausea and vomiting) Qty: 12 0RF Miracle Mouthwash-Alan 240 mL liquid 15 ml PO BID Qty: 240 0RF Rx Instructions: Nystatin susp 80 mL;Lidocaine 2% Visc 80 mL; Maalox 80 mL; Swish and spit kkcxdmcqk-vbspdq-ptnxyzzu-scop [] 16.2 mg-0.1037 mg/5 mL (5 mL) elixir 5 ml PO BID PRN (Reason: indigestion) Qty: 50 0RF acetaminophen 160 mg/5 mL liquid 320 mg PO Q6H PRN (Reason: fever or pain) Qty: 473 0RF Fleet Enema 19-7 gram/118 mL enema 197 ml OH DAILY 1 Days Qty: 133 2RF nitrofurantoin monohyd/m-cryst 100 mg capsule 100 mg PO BID 7 Days Qty: 14 0RF Rx Instructions: must administer with a meal/food clonazepam 1 mg tablet 1 mg PO TID fluticasone propionate [Flonase Allergy Relief] 50 mcg/actuation spray,suspension 1 spray intranasal DAILY Qty: 100 0RF Rx Instructions: administer into each nostril Linzess 290 mcg capsule 290 mcg PO DAILY Qty: 30 1RF bisacodyl [Dulcolax (bisacodyl)] 10 mg suppository 10 mg OH DAILY PRN (Reason: constipation) Qty: 30 0RF lactulose 20 gram/30 mL solution 30 g PO BID Qty: 3000 0RF (DME) blood-glucose meter [OneTouch Verio Meter] [place] See Rx Instructions .Route Rx Instructions: As directed (DME) OneTouch Verio test strips Strip See Rx Instructions .Route Rx Instructions: As directed 3 times a day (DME) lancets [OneTouch Delica Lancets] 33 gauge [facility] See Rx Instructions .Route Rx Instructions: As directed 3 times a day zolpidem 10 mg tablet 10 mg PO BEDTIME PRN (Reason: Insomnia) triamcinolone acetonide 0.1 % cream 1 appl topical DAILY ursodiol 300 mg capsule 300 mg PO BID simethicone [Gas Relief (simethicone)] 80 mg tablet,chewable 160 mg PO BID sodium,potassium,mag sulfates [Suprep Bowel Prep Kit] 17.5-3.13-1.6 gram recon soln See Rx Instructions PO .COMPLEX Qty: 354 0RF Rx Instructions: As per instructions from GI office Print Language: French
[2024-03-17 21:56] VITALS: BP 162/90; PULSE 64; RESP 16; TEMP 36.6; O2SAT 98
[2024-03-17] MEDS: 0.9 % Sodium Chloride 1,000 ML 999 ML IV (22:13)
[2024-03-17] MEDS: droPERidol 5 MG/2 ML VIAL 1.25 MG IVPUSH (22:16)
--- NOTE | 2024-03-17 23:23 | PC.NURSE ---
Pt IV infiltrated while in CT, refusing new IV access and CT. MD to bedside to discuss plan of care with pt.
--- NOTE | 2024-03-17 23:50 | PC.NURSE ---
Additional IV access obtained while in CT, pt did not complete study though stating to fleet technician that the IV contrast increases her dysphagia . Plan for dc home after fluid bolus complete.
[2024-03-18] VITALS: BP 164/96; PULSE 65; RESP 16; TEMP 36.6; O2SAT 97
[2024-03-18 00:56] VITALS: BP 164/96; PULSE 65; RESP 16; TEMP 36.6; O2SAT 97
== END 2024-03-18 00:58 | disposition home or self-care (01) ==
PROVIDERS: Emergency Provider Emergency Medicine; PCP Internal Medicine
DX: K59.00 Constipation, unspecified (principal); R10.84 Generalized abdominal pain
CPT/HCPCS: 36415; 74018; 74177; 80048; 80076; 80307; 82947; 83690; 85025; 96361; 96374; 99284; 99285; J1790

== ENCOUNTER 2024-03-23 09:52 | Emergency (ER) | payer OTHER, SELFPAY ==
--- NOTE | ~2024-03-23 | CT_ITS ---
EXAMINATION: CT ABDOMEN AND PELVIS WITH CONTRAST CLINICAL INFORMATION: History of bariatric surgery. Abdominal pain and constipation. Evaluate for small bowel obstruction. COMPARISON: CT abdomen and pelvis 03/17/2024. TECHNIQUE: Multidetector volumetric images were obtained from the superior aspect of the liver through the pubic symphysis following administration 85 mL of Omnipaque 350 intravenous contrast. Sagittal and coronal reformatted images were obtained on the technologist's workstation. Oral contrast: No This CT examination was performed using dose optimization techniques as appropriate, variously including the following: *Automated exposure control *Adjustment of mA and/or kV according to patient size (this includes techniques or standardized protocols for targeted exams where dose is matched to indication/reason for exam; i.e. extremities or head) *Use of iterative reconstruction technique DLP: 323 mGy-cm FINDINGS: LUNG BASES: The visualized lung bases are unremarkable. Heart size is normal. No pericardial or pleural effusion. LIVER, GALLBLADDER, AND BILIARY TREE: The liver is normal in size, shape, and attenuation. That are punctate 4 mm and less hypodensities in the right and left hepatic lobe. The gallbladder is unremarkable with no evidence of radiopaque gallstones, gallbladder wall thickening, or obvious pericholecystic inflammatory changes. PANCREAS: Unremarkable. SPLEEN: Unremarkable. ADRENAL GLANDS: Unremarkable. KIDNEYS AND URETERS: The kidneys are normal in size, shape, and attenuation. No hydronephrosis, hydroureter, or calculi seen. No perinephric stranding. BLADDER: Unremarkable. GASTROINTESTINAL TRACT: There is scattered stool and gas seen throughout the colon without distention. There are low-lying sigmoid segment posterior to the rectum simulating presacral soft tissue thickening The small bowel loops are normal caliber. There is evidence of previous gastric bypass surgery. No free air or free fluid seen. ABDOMINAL WALL: Unremarkable. LYMPH NODES: Normal. VASCULAR: Unremarkable. PELVIC VISCERA: Unremarkable. OSSEOUS STRUCTURES: No aggressive lytic or sclerotic process seen CT/CT abdomen pelvis w IV con IMPRESSION: Acute intra-abdominal process seen. Mild constipation with low lying sigmoid segment posterior to the rectum is noted. Fleischner guidelines were followed. Electronically signed by: Foster Alejo MD 03/23/2024 03:52 PM EDT
[2024-03-23 09:59] VITALS: BP 183/107; PULSE 77; RESP 16; TEMP 36.4; O2SAT 100; BMI 21.1
--- NOTE | 2024-03-23 10:37 | ED_ITS ---
HPI - General Adult General Chief complaint: General Medical Stated complaint: abd pain Time Seen by Provider: 03/23/24 10:19 Source: patient and support specialist Mode of arrival: ambulatory Limitations: language barrier History of Present Illness ED Provider: Kaylie Choi APRN HPI narrative: 43 yo female with PMH of chronic constipation on miralax and linzess and OTC suppositories, s/p lap gastric bypass at [facility] in Jun 2023 but she chronically presents here with n/v and abdominal pain does not go the [facility] ER notes her next appointment with bariatrics is in March, DM, anemia, dysphagia, adrenal insufficiency, HTN, GERD, HLD here 03/17 with similar symptoms but declined CT scan. Presents with continued abdominal pain/constipation x 2 weeks and concern for obstruction. She has had intermittent N/V, fever 102 last evening. Has outpatient EGD/colonoscopy here at [facility] [place] 04/2024 Related Data Home Medications ?Medication ?Instructions ?Recorded ?Confirmed blood sugar diagnostic (Benefitteruch 08/15/22 08/08/23 Verio test strips) blood-glucose meter (Oneuch 08/15/22 08/08/23 Verio Meter) lancets 33 gauge (OneTouch Delica 08/15/22 08/08/23 Lancets) triamcinolone acetonide 0.1 % 1 appl topical DAILY 02/07/23 08/08/23 topical cream zolpidem 10 mg tablet 10 mg PO BEDTIME PRN Insomnia 02/07/23 08/08/23 simethicone 80 mg chewable tablet 160 mg PO BID 08/07/23 08/08/23 (Gas Relief (simethicone)) ursodiol 300 mg capsule 300 mg PO BID 08/07/23 08/08/23 clonazepam 1 mg tablet 1 mg PO TID 08/08/23 08/08/23 Previous Rx's ?Medication ?Instructions ?Recorded BATH CHAIR #1 ea 01/31/22 CANE #1 ea 01/31/22 LIFELINE ALERT SYSTEM #1 ea 01/31/22 WRIST BRACE #1 ea 01/31/22 ALCOHOL PADS #100 ea 02/21/22 SHOWER BAR #1 ea 06/08/22 SHOWER WAND #1 ea 06/08/22 Bed pads #100 ea 07/17/22 Bedside commode #1 ea 07/17/22 SANITARY PADS #100 ea 07/17/22 food supplemt, lactose-reduced 0.1 1 ea PO TID #1,184 mL 01/29/23 gram-1.18 kcal/mL oral liquid (Ensure Complete) ondansetron 4 mg disintegrating 4 mg PO Q8H nausea and vomiting 03/03/23 tablet #20 tabs sumatriptan 5 mg/actuation nasal 5 mg intranasal Q2-4H PRN migraine 03/03/23 spray headache #6 ea Miracle Mouthwash-Alan 240 mL 15 ml PO BID #240 mL 03/16/23 liquid ssqfizdvx-exywwclxk-skjhslmc-scop 5 ml PO BID PRN indigestion #50 mL 03/16/23 16.2 mg-0.1037 mg/5 mL (5 mL) elixir () prochlorperazine 25 mg rectal 25 mg CO Q12H PRN nausea and 03/16/23 suppository (Compro) vomiting #12 ea cyclobenzaprine 5 mg tablet 5 mg PO Q8H PRN pain (scale score 03/20/23 7-10) 5 days #14 tabs acetaminophen 160 mg/5 mL oral 320 mg (10 mL) PO Q6H PRN fever or 05/23/23 liquid pain #473 mL ROLLATOR #1 ea 06/28/23 famotidine 20 mg tablet (Pepcid) 20 mg PO BID 10 days #20 tabs 07/18/23 simethicone 40 mg/0.6 mL oral 0.6 ml PO BID-TID PRN abdominal 08/02/23 drops,suspension distention #15 mL blood pressure monitor (Blood #1 ea 08/06/23 Pressure Kit) fluticasone propionate 50 1 spray intranasal DAILY #100 mL 08/08/23 mcg/actuation nasal spray,suspension (Flonase Allergy Relief) linaclotide 290 mcg capsule 290 mcg PO DAILY #30 caps 08/08/23 (Linzess) sodium,potassium,mag sulfates 17.5 See Rx Instructions PO .COMPLEX 10/03/23 gram-3.13 gram-1.6 gram oral soln #354 mL (Suprep Bowel Prep Kit) pantoprazole 40 mg tablet,delayed 40 mg PO BID 90 days #180 tabs 10/07/23 release aluminum-mag hydroxide-simethicone 5 ml PO 5XD PRN indigestion #355 mL 10/10/23 200 mg-200 mg-20 mg/5 mL oral susp (Maalox Advanced) bisacodyl 10 mg rectal suppository 10 mg CO DAILY PRN constipation 11/14/23 (Dulcolax (bisacodyl)) #30 ea lactulose 20 gram/30 mL oral 30 g (45 mL) PO BID #3,000 mL 11/14/23 solution sodium phosphates 19 gram-7 197 ml CO DAILY 1 day #133 mL 11/19/23 gram/118 mL enema (Fleet Enema) multivit-minerals no.73-iron 1 cap PO DAILY #30 caps 12/19/23 fumarate 106 mg-folic acid 1 mg capsule polyethylene glycol 3350 17 17 g PO BID #850 grams 12/19/23 gram/dose oral powder (Miralax) sucralfate 100 mg/mL oral 10 ml PO QID #840 mL 01/16/24 suspension (Carafate) acamprosate 333 mg tablet,delayed 333 mg PO BID #60 tabs 01/18/24 release blood sugar diagnostic (FreeStyle #100 ea 01/21/24 Lite Strips) blood-glucose meter (FreeStyle #1 ea 01/21/24 Lite Meter kit) nitrofurantoin 100 mg PO BID 7 days #14 caps 02/11/24 monohydrate/macrocrystals 100 mg capsule naloxone 4 mg/actuation nasal spray 4 mg intranasal Q2M PRN opioid 02/19/24 overdose #2 ea tramadol 50 mg tablet 50 mg PO TID PRN pain 30 days #90 03/20/24 tabs Allergies Allergy/AdvReac Type Severity Reaction Status Date / Time hydrocodone [HYDROCODONE] Allergy Severe RASH, Verified 03/23/24 09:59 AIRWAY CLOSES ibuprofen [From MOTRIN] Allergy Intermediate STOMACH Verified 03/23/24 09:59 UPSET, vomiting trazodone [TRAZODONE] Allergy Intermediate stomach Verified 03/23/24 09:59 upset/anxiety tomato [TOMATO] Allergy Mild HIVES Verified 03/23/24 09:59 DIFFICULTY BREATHING egg Allergy Swelling Verified 03/23/24 09:59 black pepper [BLACK PEPPER] AdvReac Severe DIFFICULTY Verified 03/23/24 09:59 BREATHING, hives lisinopril AdvReac Severe Anaphylaxis Verified 03/23/24 09:59 Review of Systems 2 Review of Systems: Yes all other systems are reviewed and are negative Constitutional: Constitutional: Reports no additional constitutional complaints, Denies body ache(s), Denies chills, Denies fever(s), Denies headache(s) and Denies weakness Eyes: Eyes: Reports no additional eye complaints and Denies change in vision ENT: Reports system reviewed and no additional complaints, except as documented, Denies dizziness, Denies headache(s), Denies nasal congestion, Denies nasal discharge and Denies neck pain Cardiovascular: Cardiovascular: Reports no additional cardiovascular complaints, Denies chest pain, Denies leg edema and Denies dyspnea Respiratory: Respiratory: Reports no additional respiratory complaints, Denies cough and Denies dyspnea Gastrointestinal: Gastrointestinal: Reports no additional gastrointestinal complaints, Reports abdominal pain, Reports constipation, Denies diarrhea, Reports nausea and Reports vomiting Genitourinary: Genitourinary: Reports no additional female genitourinary complaints and Denies urinary incontinence Musculoskeletal: Musculoskeletal: Reports no additional musculoskeletal complaints, Denies back pain, Denies arthralgias, Denies joint swelling, Denies neck pain, Denies numbness and Denies tingling Integumentary/Breasts: Skin/Breast: Reports system reviewed and no additional complaints, except as docu and Denies rash Neurologic: Reports system reviewed and no additional complaints, except as documented, Denies Abnormal speech present, Denies dizziness, Denies headache(s), Denies numbness, Denies tingling and Denies weakness [facility] Past Medical History Attestation statement: The following information was validated with the patient. 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 Spondylosis of lumbar spine Diverticulosis Insomnia Vitamin D deficiency GERD (gastroesophageal reflux disease) Carpal tunnel syndrome Hypercholesterolemia Renal calculi Hypertension Alcohol abuse Anxiety and depression Surgical History History of esophagogastroduodenoscopy (EGD) Hx of colonoscopy Hx of bariatric surgery History of tubal ligation H/O: hysterectomy Family History Family History Father Medical history unknown Mother Medical history unknown Paternal Aunt Uterine cancer Diabetes Hypertension Paternal Uncle Liver cancer Heart attack Lung cancer Maternal Aunt Stroke Family/Other Chronic mental illness Sister Uterine cancer Schizophrenia Brother Substance abuse Paternal Grandmother Lung cancer Other Mental health disorder Social History Social History Household Members: None Housing: Apartment Do you presently have visiting nurse or other home services: Yes Alcohol intake: current Alcohol intake frequency: a few times a month Alcohol type: beer Patient Tobacco Use Status: Former Tobacco user Tobacco use type: Cigarette Smoked in Last 30 Days: No e-Cigarette/Vaping Use: Never Used Second Hand Smoke Exposure: No Use of substances other than those prescribed or required for medical reasons: No Substance Use Type: Marijuana Advance Directives: No Advance Directives Information Provided: No Do you have a plan to hurt others: No Plan service: No Current occupational status: disabled Current occupational exposures/hazards: No Cognitive needs: No Hearing needs: No Vision needs: Yes Physical Exam ED Vital Signs: Vital Signs - 24 hr 03/23/24 09:59 03/23/24 11:27 03/23/24 15:09 Temperature 97.6 F 98.2 F 98.5 F Pulse Rate 77 66 62 Respiratory Rate 16 18 16 Blood Pressure 183/107 H 135/83 150/97 H Pulse Oximetry 100 99 96 Oxygen Delivery Method Room Air Room Air Room Air BMI result Body Mass Index 21.1 Const General: cooperative, healthy appearing, comfortable and no acute distress Orientation/consciousness: patient oriented x3 Limitations: no limitations HENMT Head: Yes normal to inspection Ears: hearing grossly normal bilaterally General nose exam: Normal external nose present Face and sinus: Yes normal facial exam Mouth: Normal oral and palatal mucosa present Throat: Yes posterior oropharynx normal Eyes General: appearance normal, both eyes and all related structures Pupils: Equal, round and reactive pupils present Neck Neck: Yes normal visual inspection Chest Chest palpation & inspection: normal inspection of the chest Resp Effort & Inspection: normal respiratory effort Auscultation: clear to auscultation bilaterally Cardio Rate: regular rate Rhythm: regular rhythm Peripheral pulses: Peripheral pulses 2+ throughout GI Other: Hypoactive BS Inspection: Yes normal to inspection Palpation (GI): Soft to palpation and Tenderness to palpation present (GI) (diffusely) Rectal Exam - Female: normal sphincter tone and No fecal impaction Back/Spine/Pelvis Thoracic/Lumbar Spine: thoracic and lumbar spine normal to inspection Skin General skin exam: no rashes or lesions noted Neuro General: patient oriented x3, no focal motor deficits and normal sensation to monofilament Cranial nerves: Yes Equal, round and reactive pupils present Cognition (Neuro): normal cognition Speech: No Abnormal speech present Gait exam (Neuro): Normal gait present Motor exam (neuro): 5/5 motor strength present throughout Extrem General: Yes normal to inspection Course Course Course Narrative: Had episode of hypoglycemia which improved with juice-will monitor Medications Administered Discontinued Medications Generic Name Dose Route Start Last Admin Trade Name Freq PRN Reason Stop Dose Admin Sodium Chloride 1,000 mls @ 999 mls/hr 03/23/24 11:00 03/23/24 14:30 Ns IV 03/23/24 12:00 Infused .Q1H1M OSBALDO Infusion Iohexol 85 ml 03/23/24 15:39 03/23/24 15:40 Iohexol 350 Mg/Ml 100 Ml Infus..Btl IV 03/23/24 15:40 85 ml ONCE ONE Administration Ondansetron HCl 4 mg 03/23/24 10:58 03/23/24 11:26 Ondansetron Hcl 4 Mg/2 Ml Vial IVPUSH 03/23/24 10:59 4 mg ONCE ONE Administration Medical Decision Making Medical Decision Making [facility] Narrative: 43 yo female with PMH of chronic constipation on miralax and linzess and OTC suppositories, s/p lap gastric bypass at [facility] in Jun 2023 but she chronically presents here with n/v and abdominal pain does not go the [facility] ER notes her next appointment with bariatrics is in March, DM, anemia, dysphagia, adrenal insufficiency, HTN, GERD, HLD here 03/17 with similar symptoms but declined CT scan. Presents with continued abdominal pain/constipation x 2 weeks and concern for obstruction. She has had intermittent N/V, fever 102 last evening. Has outpatient EGD/colonoscopy here at [facility] [place] 04/2024 +diffuse tenderness Hypoactive BS Rectal exam normal Will obtain labs, UA, CT A/P. Will give IVF, antiemetic Differential Diagnosis Differential Diagnoses: The differential diagnosis associated with the presentation includes SBO, chronic pain Admission/Observation Consideration of admission/observation: Escalation of care including admission/observation considered CT negative for obstruction. Patient tolerating p.o.. Can be discharged home and follow up outpatient with her outpatient providers. Lab Data MDM Lab Attestation statement: I reviewed the patient's lab results. 03/23/24 10:37 03/23/24 10:37 Labs: Lab Results 03/23/24 03/23/24 03/23/24 Range/Units 10:37 11:17 11:52 WBC 5.0 (4.8-10.8) X10*3/uL RBC 4.39 (4.20-5.50) X10*6/uL Hgb 13.3 (12.0-16.0) g/dl Hct 38.9 (37.0-47.0) % MCV 88.6 (80.0-98.0) fL MCH 30.3 (27.0-33.0) pg MCHC 34.2 (31.0-35.0) g/dl RDW 13.3 (11.0-16.0) % Plt Count 325 (160-400) X10*3/uL MPV 9.7 (9.4-12.3) fL Immature Gran % (Auto) 0.2 (0.0-0.4) % Neut % (Auto) 59.0 (45-73) % Lymph % (Auto) 28.2 (20-40) % [place] % (Auto) 10.0 (2-11) % Eos % (Auto) 1.8 (0-4) % Baso % (Auto) 0.8 (0-2) % Lymph # (Auto) 1.4 (1.2-4.9) X10*3/uL [place] # (Auto) 0.5 (0.1-1.2) X10*3/uL Eos # (Auto) 0.1 (0.0-0.4) X10*3/uL Baso # (Auto) 0.0 (0.0-0.2) X10*3/uL Abs Immat Gran (auto) 0.01 (0.00-0.03) X10*3/uL Absolute Neuts (auto) 3.0 (2.0-8.3) x10*3/uL Absolute Nucleated RBC 0.000 (0.0-0.012) X10*3/uL Nucleated RBC % (auto) 0.0 (0.0-0.2) /100WBC Sodium 139 (135-145) mmol/L Potassium 4.3 (3.3-5.1) mmol/L Chloride 102 (96-108) mmol/L Carbon Dioxide 30 H (22-29) mmol/L Anion Gap 11 L (12-20) BUN 9 (9-16) mg/dL Creatinine 0.64 (0.5-1.4) mg/dL Estim Creat Clear Calc 89.6 Estimated GFR > 60 POC Glucose (60-115) mg/dL Random Glucose 80 (60-115) mg/dL Lactic Acid 1.4 (0.5-2.0) mmol/L Calcium 9.5 (8.4-10.2) mg/dL Total Bilirubin 0.5 (0.0-1.0) mg/dL AST 25 (5-31) U/L ALT 12 (0-31) U/L Alkaline Phosphatase 70 (39-117) U/L Total Protein 7.3 (6.5-8.0) g/dL Albumin 4.5 (3.5-5.0) g/dL Lipase 10 (8-78) U/L Urine Color Yellow Urine Appearance Cloudy Urine pH 6.5 (5.0-9.0) Ur Specific [place] 1.020 (1.005-1.025) Urine Protein Trace (Neg-Trace) mg/dL Urine Glucose (UA) Negative (Negative) mg/dL Urine Ketones Trace (Negative) mg/dL Urine Blood Negative (Negative) Urine Nitrite Negative (Negative) Ur Leukocyte Esterase Trace H (Negative) Urine RBC 0-2 (0-2) /HPF Urine WBC 0-5 (0-5) /HPF Ur Squamous Epith Cells 6-10 (0-2) /HPF Urine Bacteria 2+ (None Seen) Hyaline Casts 0-2 (0-2) /LPF Urine Test NEGATIVE (NEGATIVE) 03/23/24 03/23/24 Range/Units 13:12 13:45 WBC (4.8-10.8) X10*3/uL RBC (4.20-5.50) X10*6/uL Hgb (12.0-16.0) g/dl Hct (37.0-47.0) % MCV (80.0-98.0) fL MCH (27.0-33.0) pg MCHC (31.0-35.0) g/dl RDW (11.0-16.0) % Plt Count (160-400) X10*3/uL MPV (9.4-12.3) fL Immature Gran % (Auto) (0.0-0.4) % Neut % (Auto) (45-73) % Lymph % (Auto) (20-40) % [place] % (Auto) (2-11) % Eos % (Auto) (0-4) % Baso % (Auto) (0-2) % Lymph # (Auto) (1.2-4.9) X10*3/uL [place] # (Auto) (0.1-1.2) X10*3/uL Eos # (Auto) (0.0-0.4) X10*3/uL Baso # (Auto) (0.0-0.2) X10*3/uL Abs Immat Gran (auto) (0.00-0.03) X10*3/uL Absolute Neuts (auto) (2.0-8.3) x10*3/uL Absolute Nucleated RBC (0.0-0.012) X10*3/uL Nucleated RBC % (auto) (0.0-0.2) /100WBC Sodium (135-145) mmol/L Potassium (3.3-5.1) mmol/L Chloride (96-108) mmol/L Carbon Dioxide (22-29) mmol/L Anion Gap (12-20) BUN (9-16) mg/dL Creatinine (0.5-1.4) mg/dL Estim Creat Clear Calc Estimated GFR POC Glucose 51 L* 86 (60-115) mg/dL Random Glucose (60-115) mg/dL Lactic Acid (0.5-2.0) mmol/L Calcium (8.4-10.2) mg/dL Total Bilirubin (0.0-1.0) mg/dL AST (5-31) U/L ALT (0-31) U/L Alkaline Phosphatase (39-117) U/L Total Protein (6.5-8.0) g/dL Albumin (3.5-5.0) g/dL Lipase (8-78) U/L Urine Color Urine Appearance Urine pH (5.0-9.0) Ur Specific [place] (1.005-1.025) Urine Protein (Neg-Trace) mg/dL Urine Glucose (UA) (Negative) mg/dL Urine Ketones (Negative) mg/dL Urine Blood (Negative) Urine Nitrite (Negative) Ur Leukocyte Esterase (Negative) Urine RBC (0-2) /HPF Urine WBC (0-5) /HPF Ur Squamous Epith Cells (0-2) /HPF Urine Bacteria (None Seen) Hyaline Casts (0-2) /LPF Urine Test (NEGATIVE) Independent Interpretation I performed an independent interpretation of an: CT Scan Interpretation: I independently viewed the CT scan agree with the radiology report Radiology Impression Discussion of test interpretation with radiology: I have reviewed the radiologist's reading. Radiologist Impression: [place] [id number] CT Scan Report Signed Patient: Tye Leger MR#: [id number] : 1980 Acct:[id number] Age/Sex: 43 / F ADM Date: 03/23/24 Loc: .ED Attending Dr: Ordering Physician: Kaylie Gold NP Date of Service: 03/23/24 Procedure(s): CT abdomen pelvis w IV con Accession Number(s): [id number] cc: Deirdre Cantrell MD; Kaylie Gold NP~ EXAMINATION: CT ABDOMEN AND PELVIS WITH CONTRAST CLINICAL INFORMATION: History of bariatric surgery. Abdominal pain and constipation. Evaluate for small bowel obstruction. COMPARISON: CT abdomen and pelvis 03/17/2024. TECHNIQUE: Multidetector volumetric images were obtained from the superior aspect of the liver through the pubic symphysis following administration 85 mL of Omnipaque 350 intravenous contrast. Sagittal and coronal reformatted images were obtained on the technologist's workstation. Oral contrast: No This CT examination was performed using dose optimization techniques as appropriate, variously including the following: *Automated exposure control *Adjustment of mA and/or kV according to patient size (this includes techniques or standardized protocols for targeted exams where dose is matched to indication/reason for exam; i.e. extremities or head) *Use of iterative reconstruction technique DLP: 323 mGy-cm FINDINGS: LUNG BASES: The visualized lung bases are unremarkable. Heart size is normal. No pericardial or pleural effusion. LIVER, GALLBLADDER, AND BILIARY TREE: The liver is normal in size, shape, and attenuation. That are punctate 4 mm and less hypodensities in the right and left hepatic lobe. The gallbladder is unremarkable with no evidence of radiopaque gallstones, gallbladder wall thickening, or obvious pericholecystic inflammatory changes. PANCREAS: Unremarkable. SPLEEN: Unremarkable. ADRENAL GLANDS: Unremarkable. KIDNEYS AND URETERS: The kidneys are normal in size, shape, and attenuation. No hydronephrosis, hydroureter, or calculi seen. No perinephric stranding. BLADDER: Unremarkable. GASTROINTESTINAL TRACT: There is scattered stool and gas seen throughout the colon without distention. There are low-lying sigmoid segment posterior to the rectum simulating presacral soft tissue thickening The small bowel loops are normal caliber. There is evidence of previous gastric bypass surgery. No free air or free fluid seen. ABDOMINAL WALL: Unremarkable. LYMPH NODES: Normal. VASCULAR: Unremarkable. PELVIC VISCERA: Unremarkable. OSSEOUS STRUCTURES: No aggressive lytic or sclerotic process seen CT/CT abdomen pelvis w IV con IMPRESSION: Acute intra-abdominal process seen. Mild constipation with low lying sigmoid segment posterior to the rectum is noted. Fleischner guidelines were followed. Electronically signed by: Foster Alejo MD 03/23/2024 03:52 PM EDT Discharge Plan Discharge Clinical Impression: Abdominal pain, Constipation Patient Disposition: Home, Self-Care Instructions: Constipation (ED), Abdominal Pain (ED) Additional Instructions: Continue your home medication Follow-up with your outpatient provider Prescriptions: No Action (DME) CANE See Rx Instructions .Route .MEDSUPPLY Qty: 1 0RF Rx Instructions: As directed (DME) WRIST BRACE See Rx Instructions .Route .MEDSUPPLY Qty: 1 0RF Rx Instructions: As directed (DME) BATH CHAIR See Rx Instructions .Route .MEDSUPPLY Qty: 1 0RF Rx Instructions: As directed (DME) LIFELINE ALERT SYSTEM See Rx Instructions .Route .MEDSUPPLY Qty: 1 0RF Rx Instructions: As directed (DME) ALCOHOL PADS See Rx Instructions .Route .MEDSUPPLY Qty: 100 3RF Rx Instructions: As directed (DME) SHOWER WAND See Rx Instructions .Route .MEDSUPPLY Qty: 1 0RF Rx Instructions: As directed ([facility] SHOWER BAR See Rx Instructions .Route .MEDSUPPLY Qty: 1 0RF Rx Instructions: As directed (DME) Bedside commode See Rx Instructions .Route .MEDSUPPLY Qty: 1 0RF Rx Instructions: As directed ([facility] [place] Bed pads See Rx Instructions .Route .MEDSUPPLY Qty: 100 12RF Rx Instructions: As directed ([facility] [place]) SANITARY PADS See Rx Instructions .Route .MEDSUPPLY Qty: 100 12RF Rx Instructions: As directed Ensure Complete 0.1 gram-1.18 kcal/mL liquid 1 ea PO TID Qty: 1184 12RF (DME) ROLLATOR See Rx Instructions .Route .MEDSUPPLY Qty: 1 0RF Rx Instructions: As directed simethicone 40 mg/0.6 mL drops,suspension 0.6 ml PO BID-TID PRN (Reason: abdominal distention) Qty: 15 0RF (DME) blood pressure monitor [Blood Pressure Kit] Kit See Rx Instructions .Route Qty: 1 0RF Rx Instructions: As directed pantoprazole 40 mg tablet,delayed release (DR/EC) 40 mg PO BID 90 Days Qty: 180 1RF alum-mag hydroxide-simeth [Maalox Advanced] 200-200-20 mg/5 mL suspension 5 ml PO 5XD PRN (Reason: indigestion) Qty: 355 4RF Rx Instructions: administer between meals and at bedtime mv-mins no.73-iron fum-folic 106 mg iron- 1 mg capsule 1 cap PO DAILY Qty: 30 4RF polyethylene glycol 3350 [Miralax] 17 gram/dose powder 17 g PO BID Qty: 850 0RF sucralfate [Carafate] 100 mg/mL suspension 10 ml PO QID Qty: 840 1RF acamprosate 333 mg tablet,delayed release (DR/EC) 333 mg PO BID Qty: 60 0RF (DME) FreeStyle Lite Strips Strip See Rx Instructions .ROUTE .MEDSUPPLY Qty: 100 3RF Rx Instructions: use daily As directed to check blood sugars for diabetes (DME) blood-glucose meter [FreeStyle Lite Meter] Kit See Rx Instructions .ROUTE .MEDSUPPLY Qty: 1 0RF Rx Instructions: Use daily As directed to check blood glucose naloxone 4 mg/actuation spray,non-aerosol 4 mg intranasal Q2M PRN (Reason: opioid overdose) Qty: 2 0RF Rx Instructions: spray 1 dose into ONE nostril; alternate nostrils w each dose until help arrives tramadol 50 mg tablet 50 mg PO TID PRN (Reason: pain) 30 Days Qty: 90 0RF ondansetron 4 mg tablet,disintegrating 4 mg PO Q8H Qty: 20 0RF sumatriptan 5 mg/actuation spray,non-aerosol 5 mg intranasal Q2-4H PRN (Reason: migraine headache) Qty: 6 1RF Rx Instructions: into each nostril once; if headache remains, may repeat total dose once after at least 2 hours cyclobenzaprine 5 mg tablet 5 mg PO Q8H PRN (Reason: pain (scale score 7-10)) 5 Days Qty: 14 0RF famotidine [Pepcid] 20 mg tablet 20 mg PO BID 10 Days Qty: 20 0RF prochlorperazine [Compro] 25 mg suppository 25 mg CO Q12H PRN (Reason: nausea and vomiting) Qty: 12 0RF Miracle Mouthwash-Alan 240 mL liquid 15 ml PO BID Qty: 240 0RF Rx Instructions: Nystatin susp 80 mL;Lidocaine 2% Visc 80 mL; Maalox 80 mL; Swish and spit uwjeimkkv-gdivzz-mwdvxeuh-scop [] 16.2 mg-0.1037 mg/5 mL (5 mL) elixir 5 ml PO BID PRN (Reason: indigestion) Qty: 50 0RF acetaminophen 160 mg/5 mL liquid 320 mg PO Q6H PRN (Reason: fever or pain) Qty: 473 0RF Fleet Enema 19-7 gram/118 mL enema 197 ml CO DAILY 1 Days Qty: 133 2RF nitrofurantoin monohyd/m-cryst 100 mg capsule 100 mg PO BID 7 Days Qty: 14 0RF Rx Instructions: must administer with a meal/food clonazepam 1 mg tablet 1 mg PO TID fluticasone propionate [Flonase Allergy Relief] 50 mcg/actuation spray,suspension 1 spray intranasal DAILY Qty: 100 0RF Rx Instructions: administer into each nostril Linzess 290 mcg capsule 290 mcg PO DAILY Qty: 30 1RF bisacodyl [Dulcolax (bisacodyl)] 10 mg suppository 10 mg CO DAILY PRN (Reason: constipation) Qty: 30 0RF lactulose 20 gram/30 mL solution 30 g PO BID Qty: 3000 0RF (DME) blood-glucose meter [OneTouch Verio Meter] [facility] [place] See Rx Instructions .Route Rx Instructions: As directed (DME) OneTouch Verio test strips Strip See Rx Instructions .Route Rx Instructions: As directed 3 times a day (DME) lancets [OneTouch Delica Lancets] 33 gauge [facility] [place] See Rx Instructions .Route Rx Instructions: As directed 3 times a day zolpidem 10 mg tablet 10 mg PO BEDTIME PRN (Reason: Insomnia) triamcinolone acetonide 0.1 % cream 1 appl topical DAILY ursodiol 300 mg capsule 300 mg PO BID simethicone [Gas Relief (simethicone)] 80 mg tablet,chewable 160 mg PO BID sodium,potassium,mag sulfates [Suprep Bowel Prep Kit] 17.5-3.13-1.6 gram recon soln See Rx Instructions PO .COMPLEX Qty: 354 0RF Rx Instructions: As per instructions from GI office Print Language: Uzbek
[2024-03-23 10:43] LABS: MANUAL DIFF FLAG NO
[2024-03-23 10:44] LABS: Basophils Percent Auto 0.8 % (0-2); Eosinophils Absolute Auto 0.1 X10*3/uL (0.0-0.4); Eosinophils Percent Auto 1.8 % (0-4); Hematocrit 38.9 % (37.0-47.0); Hemoglobin 13.3 g/dl (12.0-16.0); Imm Gran Abs Auto 0.01 X10*3/uL (0.00-0.03); Imm Gran Pct Auto 0.2 % (0.0-0.4); Lymphocytes Absolute Auto 1.4 X10*3/uL (1.2-4.9); Lymphocytes Percent Auto 28.2 % (20-40); Mean Corpuscular HGB Conc 34.2 g/dl (31.0-35.0); Mean Corpuscular Hemoglobin 30.3 pg (27.0-33.0); Mean Corpuscular Volume 88.6 fL (80.0-98.0); Mean Platelet Volume 9.7 fL (9.4-12.3); Monocytes Absolute Auto 0.5 X10*3/uL (0.1-1.2); Platelet Count 325 X10*3/uL (160-400); Red Blood Count 4.39 X10*6/uL (4.20-5.50); Red Cell Distribution Width 13.3 % (11.0-16.0)
[2024-03-23 11:00] LABS: Alanine Aminotransferase 12 U/L (0-31); Albumin Level 4.5 g/dL (3.5-5.0); Alkaline Phosphatase 70 U/L (39-117); Anion Gap 11 (12-20); Aspartate Amino Transferase 25 U/L (5-31); Bilirubin Total 0.5 mg/dL (0.0-1.0); Blood Urea Nitrogen 9 mg/dL (9-16); Calcium 9.5 mg/dL (8.4-10.2); Carbon Dioxide 30 mmol/L (22-29); Chloride 102 mmol/L (96-108); Creatinine Clr Calc Pharmacy 89.6; Estimated Glomerular Filt Rate > 60; Glucose Random 80 mg/dL (60-115); Lipase 10 U/L (8-78); Potassium 4.3 mmol/L (3.3-5.1); Sodium 139 mmol/L (135-145); Total Protein 7.3 g/dL (6.5-8.0)
[2024-03-23] MEDS: ondansetron HCL 4 MG/2 ML VIAL IVPUSH (11:26)
[2024-03-23] MEDS: 0.9 % Sodium Chloride 1,000 ML 999 ML IV (11:26)
[2024-03-23 11:27] VITALS: BP 135/83; PULSE 66; RESP 18; TEMP 36.8; O2SAT 99
[2024-03-23 11:47] LABS: Lactic Acid 1.4 mmol/L (0.5-2.0)
[2024-03-23 11:59] LABS: Appearance Urine Cloudy; Color Urine Yellow; Glucose Urine UA Negative (Negative); Leukocyte Esterase Urine Trace (Negative); Nitrite Urine Negative (Negative); PH 6.5 (5.0-9.0); UMIC TRIGGER UACC YES; Urine Blood Negative (Negative); Urine Ketones Trace mg/dL (Negative); Urine Protein Trace mg/dL (Neg-Trace)
[2024-03-23 12:00] LABS: UPreg QC Valid YES; Urine Pregnancy NEGATIVE (NEGATIVE)
[2024-03-23 12:11] LABS: Bacteria Urine 2+ (None Seen); Hyaline Casts Urine 0-2 /LPF (0-2); RBC Urine 0-2 /HPF (0-2); WBC Urine 0-5 /HPF (0-5)
--- NOTE | 2024-03-23 13:13 | PC.NURSE ---
pt is very diff stick. POC 51. allowed PO juice from provider. attempts for better IV access have failed form this RN. Fluids can run but very positional IV #20 right A/C. Will approach additional RN for ultrasound guided peripheral line.
[2024-03-23 13:15] LABS: Glucose, Whole Blood 51 mg/dL (60-115)
[2024-03-23 13:52] LABS: Glucose, Whole Blood 86 mg/dL (60-115)
[2024-03-23 15:09] VITALS: BP 150/97; PULSE 62; RESP 16; TEMP 36.9; O2SAT 96
[2024-03-23] MEDS: iohexoL 350 MG/ML 100 ML INFUS..BTL 85 ML IV (15:40)
[2024-03-23 16:27] VITALS: BP 150/97; PULSE 62; RESP 16; TEMP 36.9; O2SAT 96
== END 2024-03-23 16:28 | disposition home or self-care (01) ==
PROVIDERS: Nurse Practitioner Family; Emergency Provider Emergency Medicine; PCP Internal Medicine
DX: K59.00 Constipation, unspecified (principal); R10.9 Unspecified abdominal pain; R11.2 Nausea with vomiting, unspecified; R50.9 Fever, unspecified; E11.9 Type 2 diabetes mellitus without complications; Z98.84 Bariatric surgery status; Z79.899 Other long term (current) drug therapy; Z87.891 Personal history of nicotine dependence
CPT/HCPCS: 36415; 74177; 80053; 81001; 81003; 81025; 82947; 83605; 83690; 85025; 87040; 87076; 87205; 96361; 96374; 99284; J2405; Q9967

== ENCOUNTER 2024-05-12 22:22 | Emergency (ER) | payer OTHER, SELFPAY ==
--- NOTE | ~2024-05-12 | XR_ITS ---
EXAMINATION: XR ABDOMEN KUB CLINICAL INDICATION: Constipation. COMPARISON: None available. TECHNIQUE: AP view of the abdomen. FINDINGS: The bowel gas pattern is normal with no evidence of ileus or obstruction. There is scattered retained stool. No unusual soft tissue calcifications are noted. The bones are unremarkable. XR/XR KUB IMPRESSION: Nonobstructive bowel gas pattern. Scattered retained stool. Electronically signed by: Cedric Menendez MD 05/13/2024 04:41 AM EDT
[2024-05-12 22:35] VITALS: BP 189/100; PULSE 72; RESP 20; TEMP 36.1; O2SAT 98; BMI 22.5
--- NOTE | 2024-05-12 22:44 | PC.NURSE ---
medicated for pain management.
[2024-05-12] MEDS: Acetaminophen 325 MG TABLET 650 MG PO (22:46)
[2024-05-12 23:02] LABS: MANUAL DIFF FLAG NO
[2024-05-12 23:03] LABS: Basophils Absolute Auto 0.1 X10*3/uL (0.0-0.2); Basophils Percent Auto 1.4 % (0-2); Eosinophils Absolute Auto 0.1 X10*3/uL (0.0-0.4); Eosinophils Percent Auto 1.1 % (0-4); Hematocrit 41.9 % (37.0-47.0); Hemoglobin 14.1 g/dl (12.0-16.0); Imm Gran Abs Auto 0.01 X10*3/uL (0.00-0.03); Imm Gran Pct Auto 0.2 % (0.0-0.4); Lymphocytes Absolute Auto 1.6 X10*3/uL (1.2-4.9); Lymphocytes Percent Auto 35.7 % (20-40); Mean Corpuscular HGB Conc 33.7 g/dl (31.0-35.0); Mean Corpuscular Hemoglobin 30.1 pg (27.0-33.0); Mean Corpuscular Volume 89.3 fL (80.0-98.0); Mean Platelet Volume 9.7 fL (9.4-12.3); Monocytes Absolute Auto 0.5 X10*3/uL (0.1-1.2); Monocytes Percent Auto 10.6 % (2-11); Neutrophils Absolute Auto 2.3 x10*3/uL (2.0-8.3); Platelet Count 359 X10*3/uL (160-400); Red Blood Count 4.69 X10*6/uL (4.20-5.50); Red Cell Distribution Width 12.4 % (11.0-16.0); White Blood Count 4.4 X10*3/uL (4.8-10.8)
[2024-05-13 00:14] LABS: Alanine Aminotransferase 17 U/L (0-31); Albumin Level 4.7 g/dL (3.5-5.0); Alkaline Phosphatase 75 U/L (39-117); Anion Gap 15 (12-20); Aspartate Amino Transferase 28 U/L (5-31); Bilirubin Total 0.4 mg/dL (0.0-1.0); Blood Urea Nitrogen 11 mg/dL (9-16); Calcium 9.5 mg/dL (8.4-10.2); Carbon Dioxide 24 mmol/L (22-29); Chloride 102 mmol/L (96-108); Creatinine Clr Calc Pharmacy 79.3; Estimated Glomerular Filt Rate > 60; Glucose Random 92 mg/dL (60-115); Lipase 16 U/L (8-78); Potassium 3.3 mmol/L (3.3-5.1); Sodium 138 mmol/L (135-145); Total Protein 7.6 g/dL (6.5-8.0)
[2024-05-13 01:24] VITALS: BP 169/83; PULSE 79; RESP 18; TEMP 36.7; O2SAT 96
[2024-05-13 02:59] VITALS: BP 153/113; PULSE 87; RESP 20; TEMP 36.7; O2SAT 98
--- NOTE | 2024-05-13 03:57 | ED.GENADULT ---
HPI - General Adult General Chief complaint: Abdominal Pain Stated complaint: abd pain Time Seen by Provider: 05/13/24 03:41 Source: patient Mode of arrival: ambulatory Limitations: no limitations History of Present Illness ED Provider: Dr. Janae Gill HPI narrative: Patient comes to the emergency room complaining of constipation, states she has not moved her bowels for 9 days. Patient states that the day she takes Linzess, stool softeners, suppositories, patient has had this happened multiple times that her abdomen hurts to to constipation. Patient denies nausea or vomiting. No diarrhea. Patient states that next week she has a colonoscopy pending. Related Data Home Medications ?Medication ?Instructions ?Recorded ?Confirmed blood sugar diagnostic ([facility] 08/08/23 Verio test strips) blood-glucose meter ([facility] 08/08/23 Verio Meter) lancets 33 gauge (OneTouch Delica 08/15/22 08/08/23 Lancets) triamcinolone acetonide 0.1 % 1 appl topical DAILY 02/07/23 08/08/23 topical cream zolpidem 10 mg tablet 10 mg PO BEDTIME PRN Insomnia 02/07/23 08/08/23 simethicone 80 mg chewable tablet 160 mg PO BID 08/07/23 08/08/23 (Gas Relief (simethicone)) ursodiol 300 mg capsule 300 mg PO BID 08/07/23 08/08/23 clonazepam 1 mg tablet 1 mg PO TID 08/08/23 08/08/23 Previous Rx's ?Medication ?Instructions ?Recorded BATH CHAIR #1 ea 01/31/22 CANE #1 ea 01/31/22 LIFELINE ALERT SYSTEM #1 ea 01/31/22 WRIST BRACE #1 ea 01/31/22 ALCOHOL PADS #100 ea 02/21/22 SHOWER BAR #1 ea 06/08/22 SHOWER WAND #1 ea 06/08/22 Bed pads #100 ea 07/17/22 Bedside commode #1 ea 07/17/22 SANITARY PADS #100 ea 07/17/22 food supplemt, lactose-reduced 0.1 1 ea PO TID #1,184 mL 01/29/23 gram-1.18 kcal/mL oral liquid (Ensure Complete) ondansetron 4 mg disintegrating 4 mg PO Q8H nausea and vomiting 03/03/23 tablet #20 tabs sumatriptan 5 mg/actuation nasal 5 mg intranasal Q2-4H PRN migraine 03/03/23 spray headache #6 ea Miracle Mouthwash-Alan 240 mL 15 ml PO BID #240 mL 03/16/23 liquid jybotffzi-schvbtous-odgatujr-scop 5 ml PO BID PRN indigestion #50 mL 03/16/23 16.2 mg-0.1037 mg/5 mL (5 mL) elixir () prochlorperazine 25 mg rectal 25 mg NJ Q12H PRN nausea and 03/16/23 suppository (Compro) vomiting #12 ea cyclobenzaprine 5 mg tablet 5 mg PO Q8H PRN pain (scale score 03/20/23 7-10) 5 days #14 tabs acetaminophen 160 mg/5 mL oral 320 mg (10 mL) PO Q6H PRN fever or 05/23/23 liquid pain #473 mL ROLLATOR #1 ea 06/28/23 famotidine 20 mg tablet (Pepcid) 20 mg PO BID 10 days #20 tabs 07/18/23 simethicone 40 mg/0.6 mL oral 0.6 ml PO BID-TID PRN abdominal 08/02/23 drops,suspension distention #15 mL blood pressure monitor (Blood #1 ea 08/06/23 Pressure Kit) linaclotide 290 mcg capsule 290 mcg PO DAILY #30 caps 08/08/23 (Linzess) sodium,potassium,mag sulfates 17.5 See Rx Instructions PO .COMPLEX 10/03/23 gram-3.13 gram-1.6 gram oral soln #354 mL (Suprep Bowel Prep Kit) aluminum-mag hydroxide-simethicone 5 ml PO 5XD PRN indigestion #355 mL 10/10/23 200 mg-200 mg-20 mg/5 mL oral susp (Maalox Advanced) bisacodyl 10 mg rectal suppository 10 mg NJ DAILY PRN constipation 11/14/23 (Dulcolax (bisacodyl)) #30 ea sodium phosphates 19 gram-7 197 ml NJ DAILY 1 day #133 mL 11/19/23 gram/118 mL enema (Fleet Enema) multivit-minerals no.73-iron 1 cap PO DAILY #30 caps 12/19/23 fumarate 106 mg-folic acid 1 mg capsule polyethylene glycol 3350 17 17 g PO BID #850 grams 12/19/23 gram/dose oral powder (Miralax) sucralfate 100 mg/mL oral 10 ml PO QID #840 mL 01/16/24 suspension (Carafate) acamprosate 333 mg tablet,delayed 333 mg PO BID #60 tabs 01/18/24 release blood sugar diagnostic (FreeStyle #100 ea 01/21/24 Lite Strips) blood-glucose meter (FreeStyle #1 ea 01/21/24 Lite Meter kit) nitrofurantoin 100 mg PO BID 7 days #14 caps 02/11/24 monohydrate/macrocrystals 100 mg capsule naloxone 4 mg/actuation nasal spray 4 mg intranasal Q2M PRN opioid 02/19/24 overdose #2 ea tramadol 50 mg tablet 50 mg PO TID PRN pain 30 days #90 03/20/24 tabs sodium phosphates 19 gram-7 118 ml NJ BEDTIME PRN constipation 03/25/24 gram/197 mL enema (Fleet Enema #230 mL Extra) fluticasone propionate 50 1 spray intranasal DAILY #100 mL 03/28/24 mcg/actuation nasal spray,suspension (Flonase Allergy Relief) pantoprazole 40 mg tablet,delayed 40 mg PO BID 90 days #180 tabs 03/30/24 release lactulose 20 gram/30 mL oral 30 g (45 mL) PO BID #3,000 mL 04/26/24 solution lactulose 10 gram/15 mL (15 mL) 10 g (15 mL) PO DAILY PRN laxative 05/13/24 oral solution effect 5 days #300 mL Allergies Allergy/AdvReac Type Severity Reaction Status Date / Time hydrocodone [HYDROCODONE] Allergy Severe RASH, Verified 05/12/24 22:39 AIRWAY CLOSES ibuprofen [From MOTRIN] Allergy Intermediate STOMACH Verified 05/12/24 22:39 UPSET, vomiting trazodone [TRAZODONE] Allergy Intermediate stomach Verified 05/12/24 22:39 upset/anxiety tomato [TOMATO] Allergy Mild HIVES Verified 05/12/24 22:39 DIFFICULTY BREATHING egg Allergy Swelling Verified 05/12/24 22:39 black pepper [BLACK PEPPER] AdvReac Severe DIFFICULTY Verified 05/12/24 22:39 BREATHING, hives lisinopril AdvReac Severe Anaphylaxis Verified 05/12/24 22:39 Review of Systems Review of Systems: Constitutional : No Weight loss, No Fever, No Chills, No Night Sweats, No Fatigue, No Malaise ENT/Mouth : No Hearing loss, No Ear Pain, No Nasal Congestion, No Sinus Pain, No Hoarseness, No sore throat, No Rhinorrhea, No Swallowing Difficulty Eyes: No Eye Pain, No Swelling, No Redness, No Foreign Body, No Discharge, No Vision Changes Cardiovascular : No Chest Pain, No SOB, No Dyspnea on Exertion, No Orthopnea, No Edema, No Palpitations Respiratory : No Cough, No Sputum, No Wheezing, No Smoke Exposure, No Dyspnea Gastrointestinal : No Nausea, No Vomiting, No Diarrhea, complaining of constipation and abdominal discomfort to constipation Genitourinary : no irregular bleeding, No Dysuria, No Urinary Frequency, No Hematuria, No Urinary Incontinence, No Urgency, No Flank Pain, No Urinary Flow Changes, No Hesitancy Musculoskeletal : No joint pain, No Myalgias, No Joint Swelling Skin : No Skin Lesions, No rash Neuro : No Weakness, No Numbness, No Paresthesias, No Loss of Consciousness, No Dizziness, No Headache Psych : No Anxiety/Panic, No Depression, No SI/HI/AH/VH, No Social Issues, Heme/Lymph: No Bruising, No Bleeding,No Lymphadenopathy Endocrine : No Polyuria, No Polydipsia, No Temperature Intolerance PMFSH Past Medical History Medical History Type 2 diabetes mellitus with hyperglycemia Vision changes Gastritis Tongue sore Right ear pain Numbness of left hand History of bipolar disorder History of schizophrenia 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 Spondylosis of lumbar spine Diverticulosis Insomnia Vitamin D deficiency GERD (gastroesophageal reflux disease) Carpal tunnel syndrome Hypercholesterolemia Renal calculi Hypertension Alcohol abuse Anxiety and depression Surgical History History of esophagogastroduodenoscopy (EGD) Hx of colonoscopy Hx of bariatric surgery History of tubal ligation H/O: hysterectomy Family History Family History Father Medical history unknown Mother Medical history unknown Paternal Aunt Uterine cancer Diabetes Hypertension Paternal Uncle Liver cancer Heart attack Lung cancer Maternal Aunt Stroke Family/Other Chronic mental illness Sister Uterine cancer Schizophrenia Brother Substance abuse Paternal Grandmother Lung cancer Other Mental health disorder Social History Social History Household Members: None Housing: Apartment Do you presently have visiting nurse or other home services: Yes Alcohol intake: current Alcohol intake frequency: holidays/special occasions only Alcohol type: beer Patient Tobacco Use Status: Former Tobacco user Tobacco use type: Cigarette Smoked in Last 30 Days: No e-Cigarette/Vaping Use: Never Used Second Hand Smoke Exposure: No Use of substances other than those prescribed or required for medical reasons: No Substance Use Type: Marijuana Advance Directives: No Advance Directives Information Provided: Yes Do you have a plan to hurt others: No Plan Patient : No service: No Current occupational status: disabled Current occupational exposures/hazards: No Cognitive needs: No Hearing needs: No Vision needs: Yes Physical Exam ED Vital Signs: Vital Signs - 24 hr 05/12/24 22:35 05/13/24 01:24 05/13/24 02:59 Temperature 97.0 F 98.0 F 98.1 F Pulse Rate 72 79 87 Respiratory Rate 20 18 20 Blood Pressure 189/100 H 169/83 H 153/113 H Pulse Oximetry 98 96 98 Oxygen Delivery Method Room Air Room Air Room Air BMI result Body Mass Index 22.5 Const Other: Appearance: Alert. Oriented X3. No acute distress. Eyes: Pupils equal, round and reactive to light. ENT: Pharynx normal. Neck: Normal inspection. Neck supple. No lymph nodes noted. No crepitus CVS: Normal heart rate and rhythm. Pulses normal. Normal S1 and S2 Respiratory: No respiratory distress. Breath sounds normal. No Wheezing. No rales Abdomen: Soft and nontender. No rigidity. No distention. Skin: Skin warm and dry. Normal skin color. Normal skin turgor. Extremities: No lower extremity edema. No Lacerations. No Rash Neuro: Oriented X 3. No motor deficit. No sensory deficit. Moving all extremities. No slurred speech. CN 2 through 12 grossly intact Psych: calm, cooperative, normal affect Medications Administered Discontinued Medications Generic Name Dose Route Start Last Admin Trade Name Freq PRN Reason Stop Dose Admin Acetaminophen 650 mg 05/12/24 22:40 05/12/24 22:46 Acetaminophen 325 Mg Tablet PO 05/12/24 22:41 650 mg ONCE ONE Administration Medical Decision Making Medical Decision Making [facility] Narrative: My interpretation of labs: Normal hematology and chemistry -KUB: No obvious obstruction. -patient has a bowel prep pending for next week. Patient was given lactulose prescription for now, patient instructed to drink plenty of fluids Lab Data [facility] Lab Attestation statement: I reviewed the patient's lab results. 05/12/24 22:54 05/12/24 23:52 Labs: Lab Results 05/12/24 05/12/24 Range/Units 22:54 23:52 WBC 4.4 L (4.8-10.8) X10*3/uL RBC 4.69 (4.20-5.50) X10*6/uL Hgb 14.1 (12.0-16.0) g/dl Hct 41.9 (37.0-47.0) % MCV 89.3 (80.0-98.0) fL MCH 30.1 (27.0-33.0) pg MCHC 33.7 (31.0-35.0) g/dl RDW 12.4 (11.0-16.0) % Plt Count 359 (160-400) X10*3/uL MPV 9.7 (9.4-12.3) fL Immature Gran % (Auto) 0.2 (0.0-0.4) % Neut % (Auto) 51.0 (45-73) % Lymph % (Auto) 35.7 (20-40) % Wright % (Auto) 10.6 (2-11) % Eos % (Auto) 1.1 (0-4) % Baso % (Auto) 1.4 (0-2) % Lymph # (Auto) 1.6 (1.2-4.9) X10*3/uL Wright # (Auto) 0.5 (0.1-1.2) X10*3/uL Eos # (Auto) 0.1 (0.0-0.4) X10*3/uL Baso # (Auto) 0.1 (0.0-0.2) X10*3/uL Abs Immat Gran (auto) 0.01 (0.00-0.03) X10*3/uL Absolute Neuts (auto) 2.3 (2.0-8.3) x10*3/uL Absolute Nucleated RBC 0.000 (0.0-0.012) X10*3/uL Nucleated RBC % (auto) 0.0 (0.0-0.2) /100WBC Sodium 138 (135-145) mmol/L Potassium 3.3 D (3.3-5.1) mmol/L Chloride 102 (96-108) mmol/L Carbon Dioxide 24 (22-29) mmol/L Anion Gap 15 (12-20) BUN 11 (9-16) mg/dL Creatinine 0.69 (0.5-1.4) mg/dL Estim Creat Clear Calc 79.3 Estimated GFR > 60 Random Glucose 92 (60-115) mg/dL Calcium 9.5 (8.4-10.2) mg/dL Total Bilirubin 0.4 (0.0-1.0) mg/dL AST 28 (5-31) U/L ALT 17 (0-31) U/L Alkaline Phosphatase 75 (39-117) U/L Total Protein 7.6 (6.5-8.0) g/dL Albumin 4.7 (3.5-5.0) g/dL Lipase 16 (8-78) U/L Independent Interpretation I performed an independent interpretation of an: CT Scan Radiology Impression Discussion of test interpretation with radiology: I have reviewed the radiologist's reading. Radiologist Impression: The bowel gas pattern is normal with no evidence of ileus or obstruction. There is scattered retained stool. No unusual soft tissue calcifications are noted. The bones are unremarkable. XR/XR KUB IMPRESSION: Nonobstructive bowel gas pattern. Scattered retained stool. Discharge Plan Discharge Clinical Impression: Constipation Patient Disposition: Home, Self-Care Instructions: Constipation (ED) Additional Instructions: Make sure you drink plenty of fluids, otherwise the medications for constipation will not work. Please follow-up with your primary care physician tomorrow. If you have any worsening or new symptoms, please return to the emergency room or call 911 Prescriptions: New lactulose 10 gram/15 mL (15 mL) solution 10 g PO DAILY PRN (Reason: laxative effect) 5 Days Qty: 300 0RF No Action (DME) CANE See Rx Instructions .Route .MEDSUPPLY Qty: 1 0RF Rx Instructions: As directed (DME) WRIST BRACE See Rx Instructions .Route .MEDSUPPLY Qty: 1 0RF Rx Instructions: As directed (DME) BATH CHAIR See Rx Instructions .Route .MEDSUPPLY Qty: 1 0RF Rx Instructions: As directed ([facility] [place]) LIFELINE ALERT SYSTEM See Rx Instructions .Route .MEDSUPPLY Qty: 1 0RF Rx Instructions: As directed ([facility] [place]) ALCOHOL PADS See Rx Instructions .Route .MEDSUPPLY Qty: 100 3RF Rx Instructions: As directed ([facility] [place]) SHOWER WAND See Rx Instructions .Route .MEDSUPPLY Qty: 1 0RF Rx Instructions: As directed ([facility] [place]) SHOWER BAR See Rx Instructions .Route .MEDSUPPLY Qty: 1 0RF Rx Instructions: As directed ([facility] [place]) Bedside commode See Rx Instructions .Route .MEDSUPPLY Qty: 1 0RF Rx Instructions: As directed ([facility] [place]) Bed pads See Rx Instructions .Route .MEDSUPPLY Qty: 100 12RF Rx Instructions: As directed ([facility] [place]) SANITARY PADS See Rx Instructions .Route .MEDSUPPLY Qty: 100 12RF Rx Instructions: As directed Ensure Complete 0.1 gram-1.18 kcal/mL liquid 1 ea PO TID Qty: 1184 12RF (DME) ROLLATOR See Rx Instructions .Route .MEDSUPPLY Qty: 1 0RF Rx Instructions: As directed simethicone 40 mg/0.6 mL drops,suspension 0.6 ml PO BID-TID PRN (Reason: abdominal distention) Qty: 15 0RF (DME) blood pressure monitor [Blood Pressure Kit] Kit See Rx Instructions .Route Qty: 1 0RF Rx Instructions: As directed alum-mag hydroxide-simeth [Maalox Advanced] 200-200-20 mg/5 mL suspension 5 ml PO 5XD PRN (Reason: indigestion) Qty: 355 4RF Rx Instructions: administer between meals and at bedtime mv-mins no.73-iron fum-folic 106 mg iron- 1 mg capsule 1 cap PO DAILY Qty: 30 4RF polyethylene glycol 3350 [Miralax] 17 gram/dose powder 17 g PO BID Qty: 850 0RF sucralfate [Carafate] 100 mg/mL suspension 10 ml PO QID Qty: 840 1RF acamprosate 333 mg tablet,delayed release (DR/EC) 333 mg PO BID Qty: 60 0RF (DME) FreeStyle Lite Strips Strip See Rx Instructions .ROUTE .MEDSUPPLY Qty: 100 3RF Rx Instructions: use daily As directed to check blood sugars for diabetes (DME) blood-glucose meter [FreeStyle Lite Meter] Kit See Rx Instructions .ROUTE .MEDSUPPLY Qty: 1 0RF Rx Instructions: Use daily As directed to check blood glucose naloxone 4 mg/actuation spray,non-aerosol 4 mg intranasal Q2M PRN (Reason: opioid overdose) Qty: 2 0RF Rx Instructions: spray 1 dose into ONE nostril; alternate nostrils w each dose until help arrives tramadol 50 mg tablet 50 mg PO TID PRN (Reason: pain) 30 Days Qty: 90 0RF Fleet Enema Extra 19-7 gram/197 mL enema 118 ml NJ BEDTIME PRN (Reason: constipation) Qty: 230 0RF fluticasone propionate [Flonase Allergy Relief] 50 mcg/actuation spray,suspension 1 spray intranasal DAILY Qty: 100 2RF Rx Instructions: administer into each nostril pantoprazole 40 mg tablet,delayed release (DR/EC) 40 mg PO BID 90 Days Qty: 180 1RF lactulose 20 gram/30 mL solution 30 g PO BID Qty: 3000 0RF ondansetron 4 mg tablet,disintegrating 4 mg PO Q8H Qty: 20 0RF sumatriptan 5 mg/actuation spray,non-aerosol 5 mg intranasal Q2-4H PRN (Reason: migraine headache) Qty: 6 1RF Rx Instructions: into each nostril once; if headache remains, may repeat total dose once after at least 2 hours cyclobenzaprine 5 mg tablet 5 mg PO Q8H PRN (Reason: pain (scale score 7-10)) 5 Days Qty: 14 0RF famotidine [Pepcid] 20 mg tablet 20 mg PO BID 10 Days Qty: 20 0RF prochlorperazine [Compro] 25 mg suppository 25 mg NJ Q12H PRN (Reason: nausea and vomiting) Qty: 12 0RF Miracle Mouthwash-Alan 240 mL liquid 15 ml PO BID Qty: 240 0RF Rx Instructions: Nystatin susp 80 mL;Lidocaine 2% Visc 80 mL; Maalox 80 mL; Swish and spit xseenflni-ybovam-qernxaez-scop [] 16.2 mg-0.1037 mg/5 mL (5 mL) elixir 5 ml PO BID PRN (Reason: indigestion) Qty: 50 0RF acetaminophen 160 mg/5 mL liquid 320 mg PO Q6H PRN (Reason: fever or pain) Qty: 473 0RF Fleet Enema 19-7 gram/118 mL enema 197 ml NJ DAILY 1 Days Qty: 133 2RF nitrofurantoin monohyd/m-cryst 100 mg capsule 100 mg PO BID 7 Days Qty: 14 0RF Rx Instructions: must administer with a meal/food clonazepam 1 mg tablet 1 mg PO TID Linzess 290 mcg capsule 290 mcg PO DAILY Qty: 30 1RF bisacodyl [Dulcolax (bisacodyl)] 10 mg suppository 10 mg NJ DAILY PRN (Reason: constipation) Qty: 30 0RF (DME) blood-glucose meter [OneTouch Verio Meter] Misc See Rx Instructions .Route Rx Instructions: As directed (DME) OneTouch Verio test strips Strip See Rx Instructions .Route Rx Instructions: As directed 3 times a day (DME) lancets [OneTouch Delica Lancets] 33 gauge misc See Rx Instructions .Route Rx Instructions: As directed 3 times a day zolpidem 10 mg tablet 10 mg PO BEDTIME PRN (Reason: Insomnia) triamcinolone acetonide 0.1 % cream 1 appl topical DAILY ursodiol 300 mg capsule 300 mg PO BID simethicone [Gas Relief (simethicone)] 80 mg tablet,chewable 160 mg PO BID sodium,potassium,mag sulfates [Suprep Bowel Prep Kit] 17.5-3.13-1.6 gram recon soln See Rx Instructions PO .COMPLEX Qty: 354 0RF Rx Instructions: As per instructions from GI office Print Language: Mohawk
== END 2024-05-13 05:42 | disposition home or self-care (01) ==
PROVIDERS: Emergency Provider Emergency Medicine; PCP Internal Medicine
DX: K59.00 Constipation, unspecified (principal); E11.9 Type 2 diabetes mellitus without complications; Z79.899 Other long term (current) drug therapy; Z87.891 Personal history of nicotine dependence
CPT/HCPCS: 36415; 74018; 80053; 83690; 85025; 99283; 99284

== ENCOUNTER 2024-05-15 09:59 | Day surgery (SDC) | payer OTHER, SELFPAY ==
--- NOTE | 2024-01-01 13:27 | HO.ANESPROP2 ---
HPI - Anesthesia Eval Consult details Narrative: 43yo F for Upper Endoscopy and Colonoscopy ETOH abuse on acamprosate s/p EGD 04/2023 with MAC PMFSH Active Problems Active Problems: All Active Problems Grief at loss of child (Acute) Gastric ulcer (Acute) Vaginal discharge (Acute) Esophageal stricture (Acute) Diarrhea (Acute) Type 2 diabetes mellitus with hyperglycemia (Acute) Vision changes (Acute) Well woman exam (Acute) Iron deficiency anemia (Acute) Cataract (Acute) Elevated platelet count (Acute) Lumbar back pain with radiculopathy affecting right lower extremity (Acute) Gastric hourglass stricture or stenosis (Acute) Underweight (Acute) Esophagitis determined by endoscopy (Acute) Complex ovarian cyst (Acute) Abdominal bloating (Acute) Constipation (Acute) Urinary incontinence (Acute) Anemia (Chronic) Right leg numbness (Acute) Dysphagia (Acute) Postgastrectomy malabsorption (Acute) COVID-19 virus infection (Acute) Blurred vision, bilateral (Acute) Memory impairment (Acute) Melasma (Acute) Lumbar radiculopathy, chronic (Acute) Dysphagia (Acute) Annual physical exam (Acute) Hypoglycemia after GI (gastrointestinal) surgery (Acute) Pelvic pain (Acute) Vaginal irritation (Acute) Vaginitis (Acute) Syncope (Acute) ACTH elevation (Acute) Dysphagia (Acute) Malabsorption (Acute) Hypoglycemia (Acute) Adrenal insufficiency (Acute) S/P gastric sleeve procedure (Acute) Vitamin B 12 deficiency (Acute) Right hand pain (Acute) Radicular low back pain (Acute) Ulnar neuropathy (Acute) Hyperpigmentation (Acute) Alopecia (Acute) COVID-19 virus infection (Acute) Generalized anxiety disorder (Acute) Annual physical exam (Acute) Dysuria (Acute) Vaginal pruritus (Acute) Breast cancer screening by mammogram (Acute) Bilateral hand numbness (Acute) Hypersomnia (Acute) Yeast vaginitis (Acute) Low back pain (Acute) History of schizophrenia (Acute) Alcohol abuse (Acute) Renal calculi (Acute) 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 (Acute) Spondylosis of lumbar spine (Acute) GERD (gastroesophageal reflux disease) (Acute) Hypercholesterolemia (Acute) Hypertension (Acute) Past Medical History Medical History Type 2 diabetes mellitus with hyperglycemia Vision changes Gastritis Tongue sore Right ear pain Numbness of left hand History of bipolar disorder History of schizophrenia 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 Spondylosis of lumbar spine Diverticulosis Insomnia Vitamin D deficiency GERD (gastroesophageal reflux disease) Carpal tunnel syndrome Hypercholesterolemia Renal calculi Hypertension Alcohol abuse Anxiety and depression Family History Family History Father Medical history unknown Mother Medical history unknown Paternal Aunt Uterine cancer Diabetes Hypertension Paternal Uncle Liver cancer Heart attack Lung cancer Maternal Aunt Stroke Family/Other Chronic mental illness Sister Uterine cancer Schizophrenia Brother Substance abuse Paternal Grandmother Lung cancer Other Mental health disorder Family history of problems with anesthesia: No Surgical History Surgical History History of esophagogastroduodenoscopy (EGD) Hx of colonoscopy Hx of bariatric surgery History of tubal ligation H/O: hysterectomy History of Problems with Anesthesia: No Social History Social History Household Members: None Housing: Apartment Do you presently have visiting nurse or other home services: Yes Alcohol intake: current Alcohol intake frequency: a few times a month Alcohol type: beer Patient Tobacco Use Status: Former Tobacco user Tobacco use type: Cigarette e-Cigarette/Vaping Use: Never Used Second Hand Smoke Exposure: No Substance Use Type: Marijuana service: No Current occupational status: disabled Current occupational exposures/hazards: No Cognitive needs: No Hearing needs: No Vision needs: Yes Meds Allergies Allergy/AdvReac Type Severity Reaction Status Date / Time hydrocodone [HYDROCODONE] Allergy Severe RASH, Verified 12/18/23 09:18 AIRWAY CLOSES ibuprofen [From MOTRIN] Allergy Intermediate STOMACH Verified 12/18/23 09:18 UPSET, vomiting trazodone [TRAZODONE] Allergy Intermediate stomach Verified 12/18/23 09:18 upset/anxiety tomato [TOMATO] Allergy Mild HIVES Verified 12/18/23 09:18 DIFFICULTY BREATHING egg Allergy Swelling Verified 12/18/23 09:18 black pepper [BLACK PEPPER] AdvReac Severe DIFFICULTY Verified 12/18/23 09:18 BREATHING, hives lisinopril AdvReac Severe Anaphylaxis Verified 12/18/23 09:18 Home Medications ?Medication ?Instructions ?Recorded ?Confirmed ?Last Taken ?Type blood sugar diagnostic (OneTouch 08/15/22 08/08/23 Unknown History Verio test strips) blood-glucose meter (OneTouch 08/15/22 08/08/23 Unknown History Verio Meter) lancets 33 gauge (OneTouch Delica 08/15/22 08/08/23 Unknown History Lancets) triamcinolone acetonide 0.1 % 1 appl topical DAILY 02/07/23 08/08/23 Unknown History topical cream zolpidem 10 mg tablet 10 mg PO BEDTIME PRN Insomnia 02/07/23 08/08/23 Unknown History simethicone 80 mg chewable tablet 160 mg PO BID 08/07/23 08/08/23 Unknown History (Gas Relief (simethicone)) ursodiol 300 mg capsule 300 mg PO BID 08/07/23 08/08/23 Unknown History clonazepam 1 mg tablet 1 mg PO TID 08/08/23 08/08/23 Unknown History Exam Pertinent Lab Results Pertinent Lab Results: Laboratory Tests 11/19/23 10:01 WBC 5.1 Hgb 13.2 Hct 39.2 Plt Count 330 Sodium 139 Potassium 3.9 Chloride 102 Carbon Dioxide 31 H BUN 12 Creatinine 0.57 Assessment and Plan Assessment Anesthesia Assessment: Chart Reviewed Final Anesthetic Review Family History of Problems with Anesthesia: No History of Problems with Anesthesia: No
--- NOTE | 2024-05-13 10:35 | HO.ANESPROP2 ---
HPI - Anesthesia Eval Consult details Narrative: 43yo F for Upper Endoscopy and Colonoscopy PMF Active Problems Active Problems: All Active Problems Constipation (Acute) Grief at loss of child (Acute) Gastric ulcer (Acute) Vaginal discharge (Acute) Esophageal stricture (Acute) Diarrhea (Acute) Type 2 diabetes mellitus with hyperglycemia (Acute) Vision changes (Acute) Well woman exam (Acute) Iron deficiency anemia (Acute) Cataract (Acute) Elevated platelet count (Acute) Lumbar back pain with radiculopathy affecting right lower extremity (Acute) Gastric hourglass stricture or stenosis (Acute) Underweight (Acute) Esophagitis determined by endoscopy (Acute) Complex ovarian cyst (Acute) Abdominal bloating (Acute) Constipation (Acute) Urinary incontinence (Acute) Anemia (Chronic) Right leg numbness (Acute) Dysphagia (Acute) Postgastrectomy malabsorption (Acute) COVID-19 virus infection (Acute) Blurred vision, bilateral (Acute) Memory impairment (Acute) Melasma (Acute) Lumbar radiculopathy, chronic (Acute) Dysphagia (Acute) Annual physical exam (Acute) Hypoglycemia after GI (gastrointestinal) surgery (Acute) Pelvic pain (Acute) Vaginal irritation (Acute) Vaginitis (Acute) Syncope (Acute) ACTH elevation (Acute) Dysphagia (Acute) Malabsorption (Acute) Hypoglycemia (Acute) Adrenal insufficiency (Acute) S/P gastric sleeve procedure (Acute) Vitamin B 12 deficiency (Acute) Right hand pain (Acute) Radicular low back pain (Acute) Ulnar neuropathy (Acute) Hyperpigmentation (Acute) Alopecia (Acute) COVID-19 virus infection (Acute) Generalized anxiety disorder (Acute) Annual physical exam (Acute) Dysuria (Acute) Vaginal pruritus (Acute) Breast cancer screening by mammogram (Acute) Bilateral hand numbness (Acute) Hypersomnia (Acute) Yeast vaginitis (Acute) Low back pain (Acute) History of schizophrenia (Acute) Alcohol abuse (Acute) Renal calculi (Acute) 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 (Acute) Spondylosis of lumbar spine (Acute) GERD (gastroesophageal reflux disease) (Acute) Hypercholesterolemia (Acute) Hypertension (Acute) Past Medical History Medical History Type 2 diabetes mellitus with hyperglycemia Vision changes Gastritis Tongue sore Right ear pain Numbness of left hand History of bipolar disorder History of schizophrenia 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 Spondylosis of lumbar spine Diverticulosis Insomnia Vitamin D deficiency GERD (gastroesophageal reflux disease) Carpal tunnel syndrome Hypercholesterolemia Renal calculi Hypertension Alcohol abuse Anxiety and depression Family History Family History Father Medical history unknown Mother Medical history unknown Paternal Aunt Uterine cancer Diabetes Hypertension Paternal Uncle Liver cancer Heart attack Lung cancer Maternal Aunt Stroke Family/Other Chronic mental illness Sister Uterine cancer Schizophrenia Brother Substance abuse Paternal Grandmother Lung cancer Other Mental health disorder Family history of problems with anesthesia: No Surgical History Surgical History History of esophagogastroduodenoscopy (EGD) Hx of colonoscopy Hx of bariatric surgery History of tubal ligation H/O: hysterectomy History of Problems with Anesthesia: No Social History Social History Household Members: None Housing: Apartment Do you presently have visiting nurse or other home services: Yes Alcohol intake: current Alcohol intake frequency: holidays/special occasions only Alcohol type: beer Patient Tobacco Use Status: Current someday Tobacco user Tobacco use type: Cigarette Cigarettes Per Day: 1 e-Cigarette/Vaping Use: Never Used Second Hand Smoke Exposure: No Substance Use Type: Marijuana Advance Directives: Yes Advance Directives Information Provided: Yes Advance Directives on File: No Do you have a plan to hurt others: No Plan service: No Current occupational status: disabled Current occupational exposures/hazards: No Cognitive needs: No Hearing needs: No Vision needs: Yes Meds Allergies Allergy/AdvReac Type Severity Reaction Status Date / Time hydrocodone [HYDROCODONE] Allergy Severe RASH, Verified 05/26/24 11:38 AIRWAY CLOSES ibuprofen [From MOTRIN] Allergy Intermediate STOMACH Verified 05/26/24 11:38 UPSET, vomiting trazodone [TRAZODONE] Allergy Intermediate stomach Verified 05/26/24 11:38 upset/anxiety tomato [TOMATO] Allergy Mild HIVES Verified 05/26/24 11:38 DIFFICULTY BREATHING egg Allergy Swelling Verified 05/26/24 11:38 black pepper [BLACK PEPPER] AdvReac Severe DIFFICULTY Verified 05/26/24 11:38 BREATHING, hives lisinopril AdvReac Severe Anaphylaxis Verified 05/26/24 11:38 Home Medications ?Medication ?Instructions ?Recorded ?Confirmed ?Last Taken ?Type [facility] 05/15/24 Unknown History Verio test strips) blood[facility]glucose [facility]15/22 05/15/24 Unknown History Verio Meter) lancets 33 gauge ([facility] 08/15/22 05/15/24 Unknown History Lancets) triamcinolone acetonide 0.1 % 1 appl topical DAILY 02/07/23 05/15/24 Unknown History topical cream zolpidem 10 mg tablet 10 mg PO BEDTIME PRN Insomnia 02/07/23 05/15/24 Unknown History simethicone 80 mg chewable tablet 160 mg PO BID 08/07/23 05/15/24 Unknown History (Gas Relief (simethicone)) ursodiol 300 mg capsule 300 mg PO BID 08/07/23 05/15/24 Unknown History clonazepam 1 mg tablet 1 mg PO TID 08/08/23 05/15/24 Unknown History Exam Pertinent Lab Results Pertinent Lab Results: Laboratory Tests 05/12/24 05/12/24 22:54 23:52 WBC 4.4 L Hgb 14.1 Hct 41.9 Plt Count 359 Sodium 138 Potassium 3.3 D Chloride 102 Carbon Dioxide 24 BUN 11 Creatinine 0.69 Assessment and Plan Assessment Anesthesia Assessment: Chart Reviewed Final Anesthetic Review Family History of Problems with Anesthesia: No History of Problems with Anesthesia: No
[2024-05-15 12:52] LABS: Glucose, Whole Blood 53 mg/dL (60-115)
--- NOTE | 2024-05-15 12:54 | MHC.SHP ---
Pre-Procedural Eval Section A - 24 Hr Update-Section A only Date of Service: 05/15/24 Section B - Complete if H&P > 30 days Chief Complaint: dysphagia, change in bowel habits Details of Present Illness: Type 2 diabetes mellitus with hyperglycemia Vision changes Gastritis Tongue sore Right ear pain Numbness of left hand History of bipolar disorder History of schizophrenia 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 Spondylosis of lumbar spine Diverticulosis Insomnia Vitamin D deficiency GERD (gastroesophageal reflux disease) Carpal tunnel syndrome Hypercholesterolemia Renal calculi Hypertension Alcohol abuse Anxiety and depression Surgical History History of esophagogastroduodenoscopy (EGD) Hx of colonoscopy Hx of bariatric surgery History of tubal ligation H/O: hysterectomy Allergies: Allergies Allergy/AdvReac Type Severity Reaction Status Date / Time hydrocodone [HYDROCODONE] Allergy Severe RASH, Verified 05/12/24 22:39 AIRWAY CLOSES ibuprofen [From MOTRIN] Allergy Intermediate STOMACH Verified 05/12/24 22:39 UPSET, vomiting trazodone [TRAZODONE] Allergy Intermediate stomach Verified 05/12/24 22:39 upset/anxiety tomato [TOMATO] Allergy Mild HIVES Verified 05/12/24 22:39 DIFFICULTY BREATHING egg Allergy Swelling Verified 05/12/24 22:39 black pepper [BLACK PEPPER] AdvReac Severe DIFFICULTY Verified 05/12/24 22:39 BREATHING, hives lisinopril AdvReac Severe Anaphylaxis Verified 05/12/24 22:39 Review of Systems Review of Systems Comment: Ten point ROS negative Exam Exam Comment: Gen appear: No acute distress HEENT: no icterus Chest: No overt resp distress Abd: soft, nontender, nondistended Psych: Stable affect, answering questions appropriately Neuro: A/Ox3 noted to move all extremities spontaneously Ext: no peripheral edema Plan Diagnosis/Plan: Unchanged I have reviewed the history and physical and performed a pertinent physical examination on my patient. No changes have occurred unless specified. Pt previously had profuse diarrhea 3m post op. However now for the past month, has been struggling with constipation instead. Time Spent With Patient Time: Total time managing care of this patient today ____ minutes.
[2024-05-15 13:13] VITALS: BMI 23.6
[2024-05-15 13:14] VITALS: BP 120/86; PULSE 75; RESP 16; TEMP 36.7; O2SAT 99
--- NOTE | 2024-05-15 13:14 | HO.ANESPROP2 ---
[facility] Active Problems Active Problems: All Active Problems Grief at loss of child (Acute) Gastric ulcer (Acute) Vaginal discharge (Acute) Esophageal stricture (Acute) Diarrhea (Acute) Type 2 diabetes mellitus with hyperglycemia (Acute) Vision changes (Acute) Well woman exam (Acute) Iron deficiency anemia (Acute) Cataract (Acute) Elevated platelet count (Acute) Lumbar back pain with radiculopathy affecting right lower extremity (Acute) Gastric hourglass stricture or stenosis (Acute) Underweight (Acute) Esophagitis determined by endoscopy (Acute) Complex ovarian cyst (Acute) Abdominal bloating (Acute) Constipation (Acute) Urinary incontinence (Acute) Anemia (Chronic) Right leg numbness (Acute) Dysphagia (Acute) Postgastrectomy malabsorption (Acute) COVID-19 virus infection (Acute) Blurred vision, bilateral (Acute) Memory impairment (Acute) Melasma (Acute) Lumbar radiculopathy, chronic (Acute) Dysphagia (Acute) Annual physical exam (Acute) Hypoglycemia after GI (gastrointestinal) surgery (Acute) Pelvic pain (Acute) Vaginal irritation (Acute) Vaginitis (Acute) Syncope (Acute) ACTH elevation (Acute) Dysphagia (Acute) Malabsorption (Acute) Hypoglycemia (Acute) Adrenal insufficiency (Acute) S/P gastric sleeve procedure (Acute) Vitamin B 12 deficiency (Acute) Right hand pain (Acute) Radicular low back pain (Acute) Ulnar neuropathy (Acute) Hyperpigmentation (Acute) Alopecia (Acute) COVID-19 virus infection (Acute) Generalized anxiety disorder (Acute) Annual physical exam (Acute) Dysuria (Acute) Vaginal pruritus (Acute) Breast cancer screening by mammogram (Acute) Bilateral hand numbness (Acute) Hypersomnia (Acute) Yeast vaginitis (Acute) Low back pain (Acute) History of schizophrenia (Acute) Alcohol abuse (Acute) Renal calculi (Acute) 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 (Acute) Spondylosis of lumbar spine (Acute) GERD (gastroesophageal reflux disease) (Acute) Hypercholesterolemia (Acute) Hypertension (Acute) Past Medical History Medical History Type 2 diabetes mellitus with hyperglycemia Vision changes Gastritis Tongue sore Right ear pain Numbness of left hand History of bipolar disorder History of schizophrenia 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 Spondylosis of lumbar spine Diverticulosis Insomnia Vitamin D deficiency GERD (gastroesophageal reflux disease) Carpal tunnel syndrome Hypercholesterolemia Renal calculi Hypertension Alcohol abuse Anxiety and depression Functional capacity: independent ambulation Patient : No Family History Family History Father Medical history unknown Mother Medical history unknown Paternal Aunt Uterine cancer Diabetes Hypertension Paternal Uncle Liver cancer Heart attack Lung cancer Maternal Aunt Stroke Family/Other Chronic mental illness Sister Uterine cancer Schizophrenia Brother Substance abuse Paternal Grandmother Lung cancer Other Mental health disorder Family history of problems with anesthesia: No Surgical History Surgical History History of esophagogastroduodenoscopy (EGD) Hx of colonoscopy Hx of bariatric surgery History of tubal ligation H/O: hysterectomy History of Problems with Anesthesia: No Social History Social History Household Members: None Housing: Apartment Do you presently have visiting nurse or other home services: Yes Alcohol intake: current Alcohol intake frequency: holidays/special occasions only Alcohol type: beer Patient Tobacco Use Status: Current someday Tobacco user Tobacco use type: Cigarette Cigarettes Per Day: 1 e-Cigarette/Vaping Use: Never Used Second Hand Smoke Exposure: No Substance Use Type: Marijuana service: No Current occupational status: disabled Current occupational exposures/hazards: No Cognitive needs: No Hearing needs: No Vision needs: Yes Meds Allergies Allergy/AdvReac Type Severity Reaction Status Date / Time hydrocodone [HYDROCODONE] Allergy Severe RASH, Verified 05/15/24 13:17 AIRWAY CLOSES ibuprofen [From MOTRIN] Allergy Intermediate STOMACH Verified 05/15/24 13:17 UPSET, vomiting trazodone [TRAZODONE] Allergy Intermediate stomach Verified 05/15/24 13:17 upset/anxiety tomato [TOMATO] Allergy Mild HIVES Verified 05/15/24 13:17 DIFFICULTY BREATHING egg Allergy Swelling Verified 05/15/24 13:17 black pepper [BLACK PEPPER] AdvReac Severe DIFFICULTY Verified 05/15/24 13:17 BREATHING, hives lisinopril AdvReac Severe Anaphylaxis Verified 05/15/24 13:17 Active Medications: Current Medications Lactated Ringer's (Lr) 1,000 mls @ 100 mls/hr IVCONT .Q10H OSBALDO Home Medications ?Medication ?Instructions ?Recorded ?Confirmed ?Last Taken ?Type blood sugar diagnostic ([facility] 08/15/22 08/08/23 Unknown History Verio test strips) blood-glucose meter ([facility] 08/15/22 08/08/23 Unknown History Verio Meter) lancets 33 gauge ([facility] 08/15/22 08/08/23 Unknown History Lancets) triamcinolone acetonide 0.1 % 1 appl topical DAILY 02/07/23 08/08/23 Unknown History topical cream zolpidem 10 mg tablet 10 mg PO BEDTIME PRN Insomnia 02/07/23 08/08/23 Unknown History simethicone 80 mg chewable tablet 160 mg PO BID 08/07/23 08/08/23 Unknown History (Gas Relief (simethicone)) ursodiol 300 mg capsule 300 mg PO BID 08/07/23 08/08/23 Unknown History clonazepam 1 mg tablet 1 mg PO TID 08/08/23 08/08/23 Unknown History Exam Height,Weight and Vital Signs: Height 5 ft 1 in Weight 56.699 kg Pertinent Lab Results Pertinent Lab Results: Laboratory Tests 05/15/24 12:46 POC Glucose 53 L* Airway Mallampati Class: II TM Dist: >3cm Neck ROM: Full Heart: RRR Lungs: CTA Assessment and Plan Assessment Anesthesia Assessment: Anesthesia Plan Discussed, Smoking Cess. Discussed and Chart Reviewed Final Anesthetic Review Family History of Problems with Anesthesia: No History of Problems with Anesthesia: No NPO: Yes ASA Class: II Final Preanesthetic Review: Meds/Allgs Chart Reviewed, Consent Obtained/Reviewed and Anes Risks/Benef Reviewed Patient Risk: Low Procedure Risk: Low Anesthetic Plan Anesthetic Plan: MAC: Disposition: Standard PACU
[2024-05-15] MEDS: Lactated Ringers 1,000 ML 100 ML IVCONT (13:30)
--- NOTE | 2024-05-15 13:59 | P.OPN-COLO_ITS ---
Colonoscopy Operative Note Operative Note Date of Service: 05/15/24 Narrative: Procedure: Upper endoscopy and colonoscopy Indication: Dysphagia, abd pain, change in bowel habits Endoscopist: Mi Leavitt MD Anesthesia Provider: Dr Hazel Villa Anesthesia type: MAC Instrument: [id number] and [id number] EGD Procedure:?? The procedure, indications, preparation and potential complications were reviewed with the patient, who indicated understanding and gave written informed consent to proceed. The endoscope was introduced through the mouth, and advanced to the jejunum. The mucosa was carefully examined on slow withdrawal of the endoscope. The patient tolerated the procedure well. There were no immediate complications.? EGD Findings:? * Esophagus:? Severe ulceration was noted circumferentially from 32 to 35 cm. The Z line is at 35 cm. * Stomach:?Erythema and erosions in the gastric pouch. The G-J anastomosis is at 39 cm. There was erythema and at least 2 clean based ulcers measuring 5 mm present at the site of anastomosis. Random cold forceps biopsies were taken from the stomach. Two metallic casey were noted at the G-J anastomosis which were removed with the help of cold forceps. * Jejunum:? Normal jejunal mucosa in the alimentary limb. The blind limb/stump was very short. Cold forceps biopsies were taken from the jejunum. Colonoscopy Procedure:? The patient was then turned for the colonoscopy. A digital rectal exam was performed which was normal.? A distal attachment cap was affixed to the tip of the scope and the colonoscope was then inserted through the anus and advanced through the colon and advanced to the cecum at 75 cm and terminal ileum.? Appendiceal orifice and ileocecal valve were identified. Mucosa was carefully examined under high definition white light as the instrument was slowly withdrawn in a retrograde panoramic fashion. Retroflexion was performed in rectum. The procedure was somewhat difficult due to fixed sigmoid colon. The quality of the prep was BBPS: 2+2+2 = adequate Withdrawal time 7 minutes Limitations: No limitations Findings: Mucosa: Normal colon and terminal ileum mucosa. Cold forceps biopsies were taken from the right and left side of the colon for histology. Protruding lesions: * Small internal hemorrhoids without stigmata of recent bleeding. Excavated lesions: * Severe diverticulosis of sigmoid colon. Impression: 1. Grade D esophagitis 2. Gastritis (biopsy) 3. Clean based anastomotic ulcers x 2 4. Surgical casey at G-J anastomosis (removed) 5. Normal jejunal mucosa (biopsy) 6. Normal colon and terminal ileum mucosa (biopsy) 7. Internal hemorrhoids Recommendations:?? * Switch to Nexium 20 mg b.i.d. x 8 weeks and then once daily * Carafate liquid 10ml QID * Stay upright for 45-60 mins post meals * Repeat EGD in a few months to assess for healing * Follow-up path results * Avoid smoking, etOH and NSAIDs * H Pylori treatment if biopsies + * Repeat colonoscopy for CRC screening in 10 years.
[2024-05-15 14:47] VITALS: BP 119/81; PULSE 85; RESP 16; TEMP 36.2; O2SAT 95
--- NOTE | 2024-05-15 14:49 | HO.POSTANES ---
Post Anesthesia Evaluation Post Anesthesia Evaluation Date of Service: 05/15/24 Vital Signs: Vital Signs Temp Pulse Resp BP Pulse Ox O2 Del Method 05/15/24 13:14 98.0 F 75 16 120/86 99 Room Air Anesthesia: Monitored Mental Status: Awake Pain Control: Satisfactory Nausea/Vomiting: None Hydration: Adequate Anesthesia-Related Issues: No Anes. Related Issues
[2024-05-15 14:53] LABS: Glucose, Whole Blood 156 mg/dL (60-115)
[2024-05-15 15:02] VITALS: BP 149/95; PULSE 70; RESP 16; TEMP 36.2; O2SAT 96
== END 2024-05-15 15:33 | disposition home or self-care (01) ==
PROVIDERS: PCP Internal Medicine; Visit Provider Internal Medicine
PROC: (CPT 43239; principal; 2024-05-15 14:00)
DX: K28.9 Gastrojejunal ulcer, unspecified as acute or chronic, without hemorrhage or perforation (principal); K21.00 Gastro-esophageal reflux disease with esophagitis, without bleeding; K29.70 Gastritis, unspecified, without bleeding; K63.89 Other specified diseases of intestine; K31.2 Hourglass stricture and stenosis of stomach; R13.10 Dysphagia, unspecified; K57.30 Diverticulosis of large intestine without perforation or abscess without bleeding; K64.8 Other hemorrhoids; R19.4 Change in bowel habit; E11.9 Type 2 diabetes mellitus without complications; I10 Essential (primary) hypertension; E78.00 Pure hypercholesterolemia, unspecified; F10.10 Alcohol abuse, uncomplicated; R63.6 Underweight; Z87.891 Personal history of nicotine dependence
CPT/HCPCS: 43239; 45380; 82947; 88305; 88342; J2003; J2704

== ENCOUNTER → 2024-05-15 09:59 | Outpatient (BNV) | payer OTHER, SELFPAY | PROVIDERS: PCP Internal Medicine; Visit Provider Internal Medicine | DX: R13.10 Dysphagia, unspecified (principal); K20.90 Esophagitis, unspecified without bleeding; K29.70 Gastritis, unspecified, without bleeding; K28.9 Gastrojejunal ulcer, unspecified as acute or chronic, without hemorrhage or perforation; T18.2XXA Foreign body in stomach, initial encounter; R19.4 Change in bowel habit; K57.30 Diverticulosis of large intestine without perforation or abscess without bleeding; K64.8 Other hemorrhoids | CPT/HCPCS: 43239; 43247; 45380 ==

== ENCOUNTER 2024-05-26 11:06 | Emergency (ER) | payer OTHER, SELFPAY ==
--- NOTE | ~2024-05-26 | CT_ITS ---
EXAMINATION: CT HEAD WITHOUT CONTRAST CLINICAL INFORMATION: Headache, hypertension COMPARISON: None available. TECHNIQUE: Contiguous axial imaging was performed from the skull base to vertex without intravenous administration of contrast. This CT examination was performed using dose optimization techniques as appropriate, variously including the following: *Automated exposure control *Adjustment of mA and/or kV according to patient size (this includes techniques or standardized protocols for targeted exams where dose is matched to indication/reason for exam; i.e. extremities or head) *Use of iterative reconstruction technique DLP: 552 mGy-cm FINDINGS: The ventricles and sulci are normal in size and configuration. No acute hemorrhage, mass effect or shift is evident. Ruiz-white differentiation is maintained. In the posterior fossa, the brainstem, cerebellum and fourth ventricle image normally. The orbits and calvarium are intact. The paranasal sinuses and mastoid air cells are well pneumatized and clear. CT/CT head/brain wo IV con IMPRESSION: 1. Unremarkable noncontrast brain CT. No acute hemorrhage, mass effect or shift. Electronically signed by: Javi Levine MD 05/26/2024 03:26 PM EDT
--- NOTE | 2024-05-26 11:35 | ED_ITS ---
HPI - Headache General Chief Complaint: Nausea/Vomiting/Diarrhea Stated Complaint: Headache/Diarrhea/Vomiting Time Seen by Provider: 05/26/24 14:07 Source: patient Mode of arrival: ambulatory Limitations: no limitations History of Present Illness ED Provider: Janie HPI Narrative: Patient is a 43-year-old [place] speaking female with history of diabetes, iron deficiency anemia, gastric ulcer, constipation, anemia, HTN, ETOH abuse, schizophrenia, bariatric surgery presenting to the ED with complaint of migraine for three days as well as body aches, nausea, vomiting and diarrhea and subjective fever. Did not try any OTC medications at home. Also complains of nasal congestion, chest tightness, and cough. Denies hematochezia or melena, states is primarily vomiting saliva. Denies blurred vision, double vision or other visual changes. Denies abdominal pain. Describes symptoms as flu-like. MD elicited complaint: headache Pertinent past history: migraines and hypertension Onset (ago): day(s) Onset description: gradually Associated symptoms: fever, nausea and vomiting Treatments prior to arrival: none Related Data Home Medications ?Medication ?Instructions ?Recorded ?Confirmed [facility] diagnostic ([facility] 05[facility]15/24 Verio test strips) blood-glucose meter ([facility] 05/15/24 Verio Meter) lancets 33 gauge (OneTouch Delica 08/15/22 05/15/24 Lancets) triamcinolone acetonide 0.1 % 1 appl topical DAILY 02/07/23 05/15/24 topical cream zolpidem 10 mg tablet 10 mg PO BEDTIME PRN Insomnia 02/07/23 05/15/24 simethicone 80 mg chewable tablet 160 mg PO BID 08/07/23 05/15/24 (Gas Relief (simethicone)) ursodiol 300 mg capsule 300 mg PO BID 08/07/23 05/15/24 clonazepam 1 mg tablet 1 mg PO TID 08/08/23 05/15/24 Previous Rx's ?Medication ?Instructions ?Recorded BATH CHAIR #1 ea 01/31/22 CANE #1 ea 01/31/22 LIFELINE ALERT SYSTEM #1 ea 01/31/22 WRIST BRACE #1 ea 01/31/22 ALCOHOL PADS #100 ea 02/21/22 SHOWER BAR #1 ea 06/08/22 SHOWER WAND #1 ea 06/08/22 Bed pads #100 ea 07/17/22 Bedside commode #1 ea 07/17/22 SANITARY PADS #100 ea 07/17/22 food supplemt, lactose-reduced 0.1 1 ea PO TID #1,184 mL 01/29/23 gram-1.18 kcal/mL oral liquid (Ensure Complete) ondansetron 4 mg disintegrating 4 mg PO Q8H nausea and vomiting 03/03/23 tablet #20 tabs sumatriptan 5 mg/actuation nasal 5 mg intranasal Q2-4H PRN migraine 03/03/23 spray headache #6 ea Miracle Mouthwash-Alan 240 mL 15 ml PO BID #240 mL 03/16/23 liquid xekneixhu-dfqqtpgey-poaayzdp-scop 5 ml PO BID PRN indigestion #50 mL 03/16/23 16.2 mg-0.1037 mg/5 mL (5 mL) elixir () prochlorperazine 25 mg rectal 25 mg DC Q12H PRN nausea and 03/16/23 suppository (Compro) vomiting #12 ea cyclobenzaprine 5 mg tablet 5 mg PO Q8H PRN pain (scale score 03/20/23 7-10) 5 days #14 tabs acetaminophen 160 mg/5 mL oral 320 mg (10 mL) PO Q6H PRN fever or 05/23/23 liquid pain #473 mL ROLLATOR #1 ea 06/28/23 famotidine 20 mg tablet (Pepcid) 20 mg PO BID 10 days #20 tabs 07/18/23 simethicone 40 mg/0.6 mL oral 0.6 ml PO BID-TID PRN abdominal 08/02/23 drops,suspension distention #15 mL blood pressure monitor (Blood #1 ea 08/06/23 Pressure Kit) linaclotide 290 mcg capsule 290 mcg PO DAILY #30 caps 08/08/23 (Linzess) aluminum-mag hydroxide-simethicone 5 ml PO 5XD PRN indigestion #355 mL 10/10/23 200 mg-200 mg-20 mg/5 mL oral susp (Maalox Advanced) bisacodyl 10 mg rectal suppository 10 mg DC DAILY PRN constipation 11/14/23 (Dulcolax (bisacodyl)) #30 ea sodium phosphates 19 gram-7 197 ml DC DAILY 1 day #133 mL 11/19/23 gram/118 mL enema (Fleet Enema) multivit-minerals no.73-iron 1 cap PO DAILY #30 caps 12/19/23 fumarate 106 mg-folic acid 1 mg capsule polyethylene glycol 3350 17 17 g PO BID #850 grams 12/19/23 gram/dose oral powder (Miralax) sucralfate 100 mg/mL oral 10 ml PO QID #840 mL 01/16/24 suspension (Carafate) acamprosate 333 mg tablet,delayed 333 mg PO BID #60 tabs 01/18/24 release blood sugar diagnostic (FreeStyle #100 ea 01/21/24 Lite Strips) blood-glucose meter (FreeStyle #1 ea 01/21/24 Lite Meter kit) nitrofurantoin 100 mg PO BID 7 days #14 caps 02/11/24 monohydrate/macrocrystals 100 mg capsule naloxone 4 mg/actuation nasal spray 4 mg intranasal Q2M PRN opioid 02/19/24 overdose #2 ea sodium phosphates 19 gram-7 118 ml DC BEDTIME PRN constipation 03/25/24 gram/197 mL enema (Fleet Enema #230 mL Extra) fluticasone propionate 50 1 spray intranasal DAILY #100 mL 03/28/24 mcg/actuation nasal spray,suspension (Flonase Allergy Relief) lactulose 20 gram/30 mL oral 30 g (45 mL) PO BID #3,000 mL 04/26/24 solution lactulose 10 gram/15 mL (15 mL) 10 g (15 mL) PO DAILY PRN laxative 05/13/24 oral solution effect 5 days #300 mL tramadol 50 mg tablet 50 mg PO TID PRN pain 30 days #90 05/14/24 tabs esomeprazole magnesium 10 mg 20 mg PO BID 90 days #180 ea 05/15/24 granules delayed release for susp ondansetron 4 mg disintegrating 4 mg PO Q8H PRN nausea and 05/26/24 tablet vomiting #9 tabs Allergies Allergy/AdvReac Type Severity Reaction Status Date / Time hydrocodone [HYDROCODONE] Allergy Severe RASH, Verified 05/26/24 11:38 AIRWAY CLOSES ibuprofen [From MOTRIN] Allergy Intermediate STOMACH Verified 05/26/24 11:38 UPSET, vomiting trazodone [TRAZODONE] Allergy Intermediate stomach Verified 05/26/24 11:38 upset/anxiety tomato [TOMATO] Allergy Mild HIVES Verified 05/26/24 11:38 DIFFICULTY BREATHING egg Allergy Swelling Verified 05/26/24 11:38 black pepper [BLACK PEPPER] AdvReac Severe DIFFICULTY Verified 05/26/24 11:38 BREATHING, hives lisinopril AdvReac Severe Anaphylaxis Verified 05/26/24 11:38 Review of Systems 2 Review of Systems: As per HPI. Yes all other systems are reviewed and are negative Constitutional: Constitutional: Reports as per HPI [facility] Past Medical History Medical History Type 2 diabetes mellitus with hyperglycemia Vision changes Gastritis Tongue sore Right ear pain Numbness of left hand History of bipolar disorder History of schizophrenia 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 Spondylosis of lumbar spine Diverticulosis Insomnia Vitamin D deficiency GERD (gastroesophageal reflux disease) Carpal tunnel syndrome Hypercholesterolemia Renal calculi Hypertension Alcohol abuse Anxiety and depression Surgical History History of esophagogastroduodenoscopy (EGD) Hx of colonoscopy Hx of bariatric surgery History of tubal ligation H/O: hysterectomy Family History Family History Father Medical history unknown Mother Medical history unknown Paternal Aunt Uterine cancer Diabetes Hypertension Paternal Uncle Liver cancer Heart attack Lung cancer Maternal Aunt Stroke Family/Other Chronic mental illness Sister Uterine cancer Schizophrenia Brother Substance abuse Paternal Grandmother Lung cancer Other Mental health disorder Social History Social History Household Members: None Housing: Apartment Do you presently have visiting nurse or other home services: Yes Alcohol intake: current Alcohol intake frequency: holidays/special occasions only Alcohol type: beer Patient Tobacco Use Status: Current someday Tobacco user Tobacco use type: Cigarette Cigarettes Per Day: 1 e-Cigarette/Vaping Use: Never Used Second Hand Smoke Exposure: No Substance Use Type: Marijuana Advance Directives: Yes Advance Directives Information Provided: Yes Advance Directives on File: No Do you have a plan to hurt others: No Plan service: No Current occupational status: disabled Current occupational exposures/hazards: No Cognitive needs: No Hearing needs: No Vision needs: Yes Physical Exam 2 Vital Signs: Vital Signs: Last Vital Signs Temp 98.7 F 05/26/24 15:25 Pulse 74 05/26/24 15:25 Resp 16 05/26/24 15:25 BP 133/86 05/26/24 15:25 Pulse Ox 100 05/26/24 15:25 O2 Del Method Room Air 05/26/24 15:25 BMI result Body Mass Index 21.5 Vital signs have been reviewed and appear to be correct. Blood pressure elevated. Heart rate normal. Respiratory rate normal. Temperature normal. Oxygen saturation normal. Const: General: cooperative, healthy appearing and no acute distress O rientation/consciousness: oriented to person, oriented to place, oriented to time and patient oriented x3 Limitations: no limitations HEENT: Head: Yes normocephalic and Yes atraumatic Ears: external ears normal General nose exam: Normal external nose present Face and sinus: Yes face symmetric Mouth: oropharynx normal and moist mucous membranes Throat: Yes uvula midline Eyes: Pupils: Equal, round and reactive pupils present Neck: Neck: Yes normal visual inspection, Yes no meningeal signs and Yes supple Resp: Effort & Inspection: normal respiratory effort and able to speak in complete sentences Auscultation: clear to auscultation bilaterally Cardio: Rate: regular rate Rhythm: regular rhythm Heart sounds: S1 normal heart sound present and S2 normal heart sound present GI: Palpation (GI): Soft to palpation and nontender Auscultation: n ormoactive bowel sounds : General: Yes no CVA tenderness Back/Spine/Pelvis: Back: no CVA tenderness Skin: General skin exam: elasticity normal and turgor normal Neuro: General: oriented to person, oriented to place, oriented to time, patient oriented x3, gait normal, tone normal, moves all extremities, Normal light touch and pain sensation, no meningeal signs, no focal motor deficits, CN's II-XI intact bilaterally and deep tendon reflexes 2+ bilaterally Cranial nerves: Yes Equal, round and reactive pupils present Cognition (Neuro): n ormal cognition Extrem: General: Yes full ROM, Yes no pedal edema and Yes no calf tenderness Psych: Mental Status: mental status grossly normal Affect: normal affect Thought process: Normal thought process present Course Course Course Narrative: This is a Rapid Medical Exam performed in triage by Maria Eugenia Heller PA-C. Full HPI, ROS and PE to be performed by primary ED provider. 43-year-old female with a medical history of diabetes, iron deficiency anemia gastric ulcer constipation, anemia, HTN, ETOH abuse, schizophrenia, bariatric surgery presenting to the ED c/o headache, abdominal pain, N/V/D & substernal CP x 2 days. Admits CALIX started yesterday but has been constant x today described as burning sensation. Admits has been noncompliant on meds PE: HTNsive 150/101, emesis bag in hand, neuro exam nonfocal Plan: EKG, labs, UA, viral testing Medications Administered Discontinued Medications Generic Name Dose Route Start Last Admin Trade Name Freq PRN Reason Stop Dose Admin Diphenhydramine HCl 25 mg 05/26/24 14:36 05/26/24 14:56 Diphenhydramine Hcl 50 Mg/Ml Vial IVPUSH 05/26/24 14:37 25 mg ONCE ONE Administration Sodium Chloride 1,000 mls @ 999 mls/hr 05/26/24 14:45 05/26/24 14:53 Ns IV 05/26/24 15:45 999 mls/hr .Q1H1M OSBALDO Administration Ketorolac Tromethamine 15 mg 05/26/24 14:36 05/26/24 15:25 Ketorolac Tromethamine 15 Mg/Ml Vial IVPUSH 05/26/24 14:37 Not Given ONCE ONE Metoclopramide HCl 10 mg 05/26/24 14:36 05/26/24 14:56 Metoclopramide Hcl 10 Mg/2 Ml Vial IVPUSH 05/26/24 14:37 10 mg ONCE ONE Administration Medical Decision Making Medical Decision Making [facility] Narrative: Patient is a 43-year-old [place] speaking female with history of diabetes, iron deficiency anemia, gastric ulcer, constipation, anemia, HTN, ETOH abuse, schizophrenia, bariatric surgery presenting to the ED with complaint of migraine for three days as well as body aches, nausea, vomiting and diarrhea and subjective fever. On exam patient is awake, A+Ox3, VS WNL, afebrile, normal neurological exam without focal deficits, physical exam findings as above. Given reported symptoms and physical exam findings, initial differential includes viral illness, covid, flu, migraine, electrolyte abnormality, gastroenteritis. Unlikely ACS. No red flag findings concerning for ICH/SAH, acute glaucoma, carotid artery dissection, CO poisoning, encephalitis, meningitis, preeclampsia, pseudotumor, temporal arteritis/giant cell arteritis. Labs unremarkable, troponin negative. CT head without evidence of ICH or other acute abnormality. Symptoms improved with medications given in the ED. Feel symptoms are likely viral and patient is stable for discharge home. Will send prescription for zofran. Follow up with PCP. Return precautions discussed. Patient verbalized understanding of and agreement with plan. In-person outside machinist supervisor was utilized for all interactions, assessments, and discussions. Differential Diagnosis Differential Diagnoses: The differential diagnosis associated with the presentation includes As per [facility] Admission/Observation Consideration of admission/observation: Escalation of care including admission/observation considered Patient would have been admitted to the hospital had their work up had any findings where hospital admission was appropriate and their clinical presentation warranted hospital admission. Lab Data [facility] Lab Attestation statement: I reviewed the patient's lab results. As per [facility] 05/26/24 12:28 05/26/24 12:28 Labs: Lab Results 05/26/24 05/26/24 05/26/24 Range/Units 12:28 12:29 14:28 WBC 4.9 (4.8-10.8) X10*3/uL RBC 4.84 (4.20-5.50) X10*6/uL Hgb 14.6 (12.0-16.0) g/dl Hct 42.6 (37.0-47.0) % MCV 88.0 (80.0-98.0) fL MCH 30.2 (27.0-33.0) pg MCHC 34.3 (31.0-35.0) g/dl RDW 12.1 (11.0-16.0) % Plt Count 368 (160-400) X10*3/uL MPV 9.6 (9.4-12.3) fL Immature Gran % (Auto) 0.2 (0.0-0.4) % Neut % (Auto) 63.8 (45-73) % Lymph % (Auto) 25.2 (20-40) % Burt % (Auto) 9.2 (2-11) % Eos % (Auto) 0.6 (0-4) % Baso % (Auto) 1.0 (0-2) % Lymph # (Auto) 1.2 (1.2-4.9) X10*3/uL Burt # (Auto) 0.5 (0.1-1.2) X10*3/uL Eos # (Auto) 0.0 (0.0-0.4) X10*3/uL Baso # (Auto) 0.1 (0.0-0.2) X10*3/uL Abs Immat Gran (auto) 0.01 (0.00-0.03) X10*3/uL Absolute Neuts (auto) 3.1 (2.0-8.3) x10*3/uL Absolute Nucleated RBC 0.000 (0.0-0.012) X10*3/uL Nucleated RBC % (auto) 0.0 (0.0-0.2) /100WBC PT 10.4 L (10.9-12.4) SEC INR 0.9 (0.9-1.1) Sodium 137 (135-145) mmol/L Potassium 3.9 (3.3-5.1) mmol/L Chloride 99 (96-108) mmol/L Carbon Dioxide 29 (22-29) mmol/L Anion Gap 13 (12-20) BUN 7 L (9-16) mg/dL Creatinine 0.62 (0.5-1.4) mg/dL Estim Creat Clear Calc 88.2 Estimated GFR > 60 POC Glucose 88 (60-115) mg/dL Random Glucose 100 (60-115) mg/dL Calcium 9.8 (8.4-10.2) mg/dL Magnesium 1.8 (1.6-2.6) mg/dL Total Bilirubin 0.5 (0.0-1.0) mg/dL Direct Bilirubin 0.2 (0.0-0.5) mg/dL AST 36 H (5-31) U/L ALT 23 (0-31) U/L Alkaline Phosphatase 79 (39-117) U/L Troponin I High Sens < 2.7 (<3.5-17.0) ng/L Total Protein 7.9 (6.5-8.0) g/dL Albumin 4.8 (3.5-5.0) g/dL Lipase 12 (8-78) U/L Urine Color Yellow Urine Appearance Clear Urine pH 8.0 (5.0-9.0) Ur Specific [place] 1.015 (1.005-1.025) Urine Protein 30 (1+) H (Neg-Trace) mg/dL Urine Glucose (UA) Negative (Negative) mg/dL Urine Ketones Negative (Negative) mg/dL Urine Blood Negative (Negative) Urine Nitrite Negative (Negative) Ur Leukocyte Esterase Negative (Negative) Urine RBC 0-2 (0-2) /HPF Urine WBC 0-5 (0-5) /HPF Ur Squamous Epith Cells 0-2 (0-2) /HPF Urine Bacteria Trace (None Seen) Hyaline Casts 0-2 (0-2) /LPF Urine Test NEGATIVE (NEGATIVE) Influenza Type A (PCR) NEGATIVE (Negative) Influenza Type B (PCR) NEGATIVE (Negative) RSV RNA Qual (PCR) NEGATIVE (Negative) SARS-CoV-2 RNA (RT-PCR) NEGATIVE (Negative) Independent Interpretation I performed an independent interpretation of an: CT Scan Interpretation: No evidence of ICH on CT head. Radiology Impression Discussion of test interpretation with radiology: I have reviewed the radiologist's reading. Radiologist Impression: CT/CT head/brain wo IV con IMPRESSION: 1. Unremarkable noncontrast brain CT. No acute hemorrhage, mass effect or shift. External Record Review External record reviewed: Inpatient record, Office record and Outpatient record Prescription Management I considered prescription management with: Other Discharge Plan Discharge Clinical Impression: Viral illness, Nausea, vomiting, and diarrhea Patient Disposition: Home, Self-Care Instructions: Gastroenteritis (DC), Acute Nausea and Vomiting (ED), Acute Diarrhea (ED), Viral Syndrome (ED) Additional Instructions: You have been evaluated in the emergency department today for headache, nausea, vomiting, and diarrhea. Your evaluation suggests that your symptoms are most likely due to a viral illness which will improve on it's own with rest and fluids. Remember to drink plenty of fluids at home. You are being prescribed ondansetron which you can use as per the prescription instructions for nausea. Please follow up with your primary care provider within two days. Return to the emergency department if you experience worsening or uncontrolled pain, inability to tolerate fluids by mouth, difficulty breathing, fevers 100.4? F or greater, recurrent vomiting, or any other concerning symptoms. Prescriptions: New ondansetron 4 mg tablet,disintegrating 4 mg PO Q8H PRN (Reason: nausea and vomiting) Qty: 9 0RF No Action (DME) CANE See Rx Instructions .Route .MEDSUPPLY Qty: 1 0RF Rx Instructions: As directed ([facility]) WRIST BRACE See Rx Instructions .Route .MEDSUPPLY Qty: 1 0RF Rx Instructions: As directed ([facility]) BATH CHAIR See Rx Instructions .Route .MEDSUPPLY Qty: 1 0RF Rx Instructions: As directed ([facility]) LIFELINE ALERT SYSTEM See Rx Instructions .Route .MEDSUPPLY Qty: 1 0RF Rx Instructions: As directed ([facility]) ALCOHOL PADS See Rx Instructions .Route .MEDSUPPLY Qty: 100 3RF Rx Instructions: As directed ([facility]) SHOWER WAND See Rx Instructions .Route .MEDSUPPLY Qty: 1 0RF Rx Instructions: As directed ([facility]) SHOWER BAR See Rx Instructions .Route .MEDSUPPLY Qty: 1 0RF Rx Instructions: As directed ([facility]) Bedside commode See Rx Instructions .Route .MEDSUPPLY Qty: 1 0RF Rx Instructions: As directed ([facility]) Bed pads See Rx Instructions .Route .MEDSUPPLY Qty: 100 12RF Rx Instructions: As directed ([facility]) SANITARY PADS See Rx Instructions .Route .MEDSUPPLY Qty: 100 12RF Rx Instructions: As directed Ensure Complete 0.1 gram-1.18 kcal/mL liquid 1 ea PO TID Qty: 1184 12RF ([facility]) ROLLATOR See Rx Instructions .Route .MEDSUPPLY Qty: 1 0RF Rx Instructions: As directed simethicone 40 mg/0.6 mL drops,suspension 0.6 ml PO BID-TID PRN (Reason: abdominal distention) Qty: 15 0RF ([facility]) blood pressure monitor [Blood Pressure Kit] Kit See Rx Instructions .Route Qty: 1 0RF Rx Instructions: As directed alum-mag hydroxide-simeth [Maalox Advanced] 200-200-20 mg/5 mL suspension 5 ml PO 5XD PRN (Reason: indigestion) Qty: 355 4RF Rx Instructions: administer between meals and at bedtime mv-mins no.73-iron fum-folic 106 mg iron- 1 mg capsule 1 cap PO DAILY Qty: 30 4RF polyethylene glycol 3350 [Miralax] 17 gram/dose powder 17 g PO BID Qty: 850 0RF sucralfate [Carafate] 100 mg/mL suspension 10 ml PO QID Qty: 840 1RF acamprosate 333 mg tablet,delayed release (DR/EC) 333 mg PO BID Qty: 60 0RF (DME) FreeStyle Lite Strips Strip See Rx Instructions .ROUTE .MEDSUPPLY Qty: 100 3RF Rx Instructions: use daily As directed to check blood sugars for diabetes (DME) blood-glucose meter [FreeStyle Lite Meter] Kit See Rx Instructions .ROUTE .MEDSUPPLY Qty: 1 0RF Rx Instructions: Use daily As directed to check blood glucose naloxone 4 mg/actuation spray,non-aerosol 4 mg intranasal Q2M PRN (Reason: opioid overdose) Qty: 2 0RF Rx Instructions: spray 1 dose into ONE nostril; alternate nostrils w each dose until help arrives Fleet Enema Extra 19-7 gram/197 mL enema 118 ml DC BEDTIME PRN (Reason: constipation) Qty: 230 0RF fluticasone propionate [Flonase Allergy Relief] 50 mcg/actuation spray,suspension 1 spray intranasal DAILY Qty: 100 2RF Rx Instructions: administer into each nostril lactulose 20 gram/30 mL solution 30 g PO BID Qty: 3000 0RF tramadol 50 mg tablet 50 mg PO TID PRN (Reason: pain) 30 Days Qty: 90 0RF ondansetron 4 mg tablet,disintegrating 4 mg PO Q8H Qty: 20 0RF sumatriptan 5 mg/actuation spray,non-aerosol 5 mg intranasal Q2-4H PRN (Reason: migraine headache) Qty: 6 1RF Rx Instructions: into each nostril once; if headache remains, may repeat total dose once after at least 2 hours cyclobenzaprine 5 mg tablet 5 mg PO Q8H PRN (Reason: pain (scale score 7-10)) 5 Days Qty: 14 0RF famotidine [Pepcid] 20 mg tablet 20 mg PO BID 10 Days Qty: 20 0RF lactulose 10 gram/15 mL (15 mL) solution 10 g PO DAILY PRN (Reason: laxative effect) 5 Days Qty: 300 0RF prochlorperazine [Compro] 25 mg suppository 25 mg DC Q12H PRN (Reason: nausea and vomiting) Qty: 12 0RF Miracle Mouthwash-Alan 240 mL liquid 15 ml PO BID Qty: 240 0RF Rx Instructions: Nystatin susp 80 mL;Lidocaine 2% Visc 80 mL; Maalox 80 mL; Swish and spit omckcxcuq-yknfwy-tkxwecfu-scop [] 16.2 mg-0.1037 mg/5 mL (5 mL) elixir 5 ml PO BID PRN (Reason: indigestion) Qty: 50 0RF acetaminophen 160 mg/5 mL liquid 320 mg PO Q6H PRN (Reason: fever or pain) Qty: 473 0RF esomeprazole magnesium [address] for susp in packet 20 mg PO BID 90 Days Qty: 180 0RF Rx Instructions: Mix in applesauce or pudding Fleet Enema 19-7 gram/118 mL enema 197 ml DC DAILY 1 Days Qty: 133 2RF nitrofurantoin monohyd/m-cryst 100 mg capsule 100 mg PO BID 7 Days Qty: 14 0RF Rx Instructions: must administer with a meal/food clonazepam 1 mg tablet 1 mg PO TID Linzess 290 mcg capsule 290 mcg PO DAILY Qty: 30 1RF bisacodyl [Dulcolax (bisacodyl)] 10 mg suppository 10 mg DC DAILY PRN (Reason: constipation) Qty: 30 0RF (DME) blood-glucose meter [OneTouch Verio Meter] Misc See Rx Instructions .Route Rx Instructions: As directed (DME) OneTouch Verio test strips Strip See Rx Instructions .Route Rx Instructions: As directed 3 times a day (DME) lancets [OneTouch Delica Lancets] 33 gauge misc See Rx Instructions .Route Rx Instructions: As directed 3 times a day zolpidem 10 mg tablet 10 mg PO BEDTIME PRN (Reason: Insomnia) triamcinolone acetonide 0.1 % cream 1 appl topical DAILY ursodiol 300 mg capsule 300 mg PO BID simethicone [Gas Relief (simethicone)] 80 mg tablet,chewable 160 mg PO BID Print Language: [place]an
[2024-05-26 11:36] VITALS: BP 150/101; PULSE 96; RESP 18; TEMP 36.4; O2SAT 98; BMI 21.5
--- NOTE | 2024-05-26 11:39 | ECG_ITS ---
Test Reason : chest pain Blood Pressure : / mmHG Vent. Rate : 079 BPM Atrial Rate : 079 BPM P-R Int : 142 ms QRS Dur : 092 ms QT Int : 370 ms P-R-T Axes : 062 066 046 degrees QTc Int : 424 ms Artifact in tracing Normal sinus rhythm Normal ECG When compared with ECG of 18-JUL-2023 12:45, No significant change was found Referred By: Maria Eugenia Heller Electronically Signed By:NEISHA LOPEZ
[2024-05-26 12:37] LABS: MANUAL DIFF FLAG NO
[2024-05-26 12:38] LABS: Basophils Absolute Auto 0.1 X10*3/uL (0.0-0.2); Eosinophils Percent Auto 0.6 % (0-4); Hematocrit 42.6 % (37.0-47.0); Hemoglobin 14.6 g/dl (12.0-16.0); Imm Gran Abs Auto 0.01 X10*3/uL (0.00-0.03); Imm Gran Pct Auto 0.2 % (0.0-0.4); Lymphocytes Absolute Auto 1.2 X10*3/uL (1.2-4.9); Lymphocytes Percent Auto 25.2 % (20-40); Mean Corpuscular HGB Conc 34.3 g/dl (31.0-35.0); Mean Corpuscular Hemoglobin 30.2 pg (27.0-33.0); Mean Platelet Volume 9.6 fL (9.4-12.3); Monocytes Absolute Auto 0.5 X10*3/uL (0.1-1.2); Monocytes Percent Auto 9.2 % (2-11); Neutrophils Absolute Auto 3.1 x10*3/uL (2.0-8.3); Neutrophils Percent Auto 63.8 % (45-73); Platelet Count 368 X10*3/uL (160-400); Red Blood Count 4.84 X10*6/uL (4.20-5.50); Red Cell Distribution Width 12.1 % (11.0-16.0); White Blood Count 4.9 X10*3/uL (4.8-10.8)
[2024-05-26 12:41] LABS: Appearance Urine Clear; Color Urine Yellow; Glucose Urine UA Negative (Negative); Leukocyte Esterase Urine Negative (Negative); Nitrite Urine Negative (Negative); Specific Gravity - Urine 1.015 (1.005-1.025); UMIC TRIGGER UACC YES; Urine Blood Negative (Negative); Urine Ketones Negative (Negative); Urine Protein 30 (1+) mg/dL (Neg-Trace)
[2024-05-26 12:44] LABS: UPreg QC Valid YES; Urine Pregnancy NEGATIVE (NEGATIVE)
[2024-05-26 12:44] LABS: INTERNATIONAL NORM RATIO 0.9 (0.9-1.1); Prothrombin Time 10.4 SEC (10.9-12.4)
[2024-05-26 12:46] LABS: Bacteria Urine Trace (None Seen); Hyaline Casts Urine 0-2 /LPF (0-2); RBC Urine 0-2 /HPF (0-2); Squamous Epithelial Cell Urine 0-2 /HPF (0-2); WBC Urine 0-5 /HPF (0-5)
[2024-05-26 12:53] LABS: Alanine Aminotransferase 23 U/L (0-31); Albumin Level 4.8 g/dL (3.5-5.0); Alkaline Phosphatase 79 U/L (39-117); Anion Gap 13 (12-20); Aspartate Amino Transferase 36 U/L (5-31); Bilirubin Direct 0.2 mg/dL (0.0-0.5); Bilirubin Total 0.5 mg/dL (0.0-1.0); Blood Urea Nitrogen 7 mg/dL (9-16); Calcium 9.8 mg/dL (8.4-10.2); Carbon Dioxide 29 mmol/L (22-29); Chloride 99 mmol/L (96-108); Creatinine Clr Calc Pharmacy 88.2; Estimated Glomerular Filt Rate > 60; Glucose Random 100 mg/dL (60-115); Lipase 12 U/L (8-78); Magnesium 1.8 mg/dL (1.6-2.6); Potassium 3.9 mmol/L (3.3-5.1); Sodium 137 mmol/L (135-145); Total Protein 7.9 g/dL (6.5-8.0)
[2024-05-26 13:02] LABS: Troponin-I High Sensitivity < 2.7 ng/L (<3.5-17.0)
[2024-05-26 13:20] LABS: Influenza A PCR NEGATIVE (Negative); Influenza B PCR NEGATIVE (Negative); Resp Syncy Virus RNA Qual PCR NEGATIVE (Negative); SARS COV2 PCR INHOUSE NEGATIVE (Negative)
[2024-05-26 14:32] LABS: Glucose, Whole Blood 88 mg/dL (60-115)
[2024-05-26] MEDS: 0.9 % Sodium Chloride 1,000 ML 999 ML IV (14:53)
[2024-05-26] MEDS: diphenhydrAMINE HCL 50 MG/ML VIAL 25 MG IVPUSH (14:56)
[2024-05-26] MEDS: Metoclopramide HCl 10 MG/2 ML VIAL IVPUSH (14:56)
[2024-05-26 15:25] VITALS: BP 133/86; PULSE 74; RESP 16; TEMP 37.1; O2SAT 100
--- NOTE | 2024-05-26 15:30 | PC.NURSE ---
pt refused torodol. says it makes her feel dizzy and unwell. Pt also reports that she is feeling better. CT scan head pending. Fluids infusing
[2024-05-26 16:37] VITALS: BP 144/94; PULSE 83; RESP 18; TEMP 37.3; O2SAT 100
== END 2024-05-26 16:41 | disposition home or self-care (01) ==
PROVIDERS: Physician Assistant; Emergency Provider Emergency Medicine; PCP Internal Medicine
DX: B34.9 Viral infection, unspecified (principal); R11.2 Nausea with vomiting, unspecified; R19.7 Diarrhea, unspecified; E11.9 Type 2 diabetes mellitus without complications; I10 Essential (primary) hypertension; E78.00 Pure hypercholesterolemia, unspecified; Z79.899 Other long term (current) drug therapy; F17.210 Nicotine dependence, cigarettes, uncomplicated; F12.90 Cannabis use, unspecified, uncomplicated; Z03.818 Encounter for observation for suspected exposure to other biological agents ruled out
CPT/HCPCS: 0241U; 36415; 70450; 80048; 80076; 81001; 81025; 82947; 83690; 83735; 84484; 85025; 85610; 93005; 96361; 96374; 96375; 99284; J1200; J2765

== ENCOUNTER → 2024-05-26 11:39 | Outpatient (BNV) | payer OTHER, SELFPAY | PROVIDERS: Emergency Provider Emergency Medicine; PCP Internal Medicine; Visit Provider Internal Medicine | DX: R07.9 Chest pain, unspecified (principal); R94.31 Abnormal electrocardiogram [ECG] [EKG] | CPT/HCPCS: 93010 ==

== ENCOUNTER 2024-05-29 11:04 | Outpatient (REF) | payer OTHER, SELFPAY ==
[2024-05-30 07:29] LABS: Immunoglobulin A 278 mg/dL (47-310)
[2024-05-30 14:23] LABS: Transglutaminase IgA <1.0 U/mL
== END 2024-05-29 11:05 | disposition home or self-care (01) ==
LOC: HO.LAB 11:04
PROVIDERS: PCP Internal Medicine; Visit Provider Internal Medicine
DX: R19.7 Diarrhea, unspecified (principal)
CPT/HCPCS: 36415; 82784; 86364

== ENCOUNTER → 2024-06-19 12:05 | Outpatient (BNVA) | payer OTHER, SELFPAY | PROVIDERS: PCP Internal Medicine ==

== ENCOUNTER 2024-07-27 18:03 | Emergency (ER) | payer OTHER, SELFPAY ==
--- NOTE | ~2024-07-27 | XR_ITS ---
CLINICAL HISTORY: short of breath 2 view chest x-ray Comparison: Chest x-ray from 05/09/2020 Findings: No consolidation, pneumothorax, or pleural effusion. Cardiac silhouette and mediastinal contours are unchanged. No acute fracture. IMPRESSION: No consolidation or acute pulmonary process. This document has been electronically signed by: Bradley Jean MD on 07/27/2024 19:10:45
[2024-07-27 18:19] VITALS: BP 128/48; PULSE 86; RESP 16; TEMP 36.9; O2SAT 100; BMI 22.3
--- NOTE | 2024-07-27 18:25 | ED.GENADULT ---
HPI - General Adult General Chief complaint: Abdominal Pain Stated complaint: abd pain, vomiting/diarrhea Time Seen by Provider: 07/27/24 22:38 Source: patient Mode of arrival: ambulatory Limitations: no limitations History of Present Illness ED Provider: HPI narrative: Patient is complaining of dysuria frequency diffuse abdominal pain for last 2 weeks also complaining of cough and sore throat nausea and vomiting and diarrhea noticed a fever of 100.6 on arrival also coughing mucoid phlegm Related Data Home Medications ?Medication ?Instructions ?Recorded ?Confirmed blood sugar diagnostic ([facility] 08/15/22 05/15/24 Verio test strips) blood-glucose meter ([facility] 08/15/22 05/15/24 Verio Meter) lancets 33 gauge ([facility] Delica 08/15/22 05/15/24 Lancets) triamcinolone acetonide 0.1 % 1 appl topical DAILY 02/07/23 05/15/24 topical cream zolpidem 10 mg tablet 10 mg PO BEDTIME PRN Insomnia 02/07/23 05/15/24 simethicone 80 mg chewable tablet 160 mg PO BID 08/07/23 05/15/24 (Gas Relief (simethicone)) ursodiol 300 mg capsule 300 mg PO BID 08/07/23 05/15/24 clonazepam 1 mg tablet 1 mg PO TID 08/08/23 05/15/24 Previous Rx's ?Medication ?Instructions ?Recorded BATH CHAIR #1 ea 01/31/22 CANE #1 ea 01/31/22 LIFELINE ALERT SYSTEM #1 ea 01/31/22 WRIST BRACE #1 ea 01/31/22 ALCOHOL PADS #100 ea 02/21/22 SHOWER BAR #1 ea 06/08/22 SHOWER WAND #1 ea 06/08/22 Bed pads #100 ea 07/17/22 Bedside commode #1 ea 07/17/22 SANITARY PADS #100 ea 07/17/22 food supplemt, lactose-reduced 0.1 1 ea PO TID #1,184 mL 01/29/23 gram-1.18 kcal/mL oral liquid (Ensure Complete) ondansetron 4 mg disintegrating 4 mg PO Q8H nausea and vomiting 03/03/23 tablet #20 tabs sumatriptan 5 mg/actuation nasal 5 mg intranasal Q2-4H PRN migraine 03/03/23 spray headache #6 ea Miracle Mouthwash-Alan 240 mL 15 ml PO BID #240 mL 03/16/23 liquid ijawypoiw-enzdkruod-dfoccdre-scop 5 ml PO BID PRN indigestion #50 mL 03/16/23 16.2 mg-0.1037 mg/5 mL (5 mL) elixir () prochlorperazine 25 mg rectal 25 mg MO Q12H PRN nausea and 03/16/23 suppository (Compro) vomiting #12 ea cyclobenzaprine 5 mg tablet 5 mg PO Q8H PRN pain (scale score 03/20/23 7-10) 5 days #14 tabs acetaminophen 160 mg/5 mL oral 320 mg (10 mL) PO Q6H PRN fever or 05/23/23 liquid pain #473 mL ROLLATOR #1 ea 06/28/23 famotidine 20 mg tablet (Pepcid) 20 mg PO BID 10 days #20 tabs 07/18/23 simethicone 40 mg/0.6 mL oral 0.6 ml PO BID-TID PRN abdominal 08/02/23 drops,suspension distention #15 mL blood pressure monitor (Blood #1 ea 08/06/23 Pressure Kit) linaclotide 290 mcg capsule 290 mcg PO DAILY #30 caps 08/08/23 (Linzess) aluminum-mag hydroxide-simethicone 5 ml PO 5XD PRN indigestion #355 mL 10/10/23 200 mg-200 mg-20 mg/5 mL oral susp (Maalox Advanced) bisacodyl 10 mg rectal suppository 10 mg MO DAILY PRN constipation 11/14/23 (Dulcolax (bisacodyl)) #30 ea sodium phosphates 19 gram-7 197 ml MO DAILY 1 day #133 mL 11/19/23 gram/118 mL enema (Fleet Enema) multivit-minerals no.73-iron 1 cap PO DAILY #30 caps 12/19/23 fumarate 106 mg-folic acid 1 mg capsule polyethylene glycol 3350 17 17 g PO BID #850 grams 12/19/23 gram/dose oral powder (Miralax) sucralfate 100 mg/mL oral 10 ml PO QID #840 mL 01/16/24 suspension (Carafate) acamprosate 333 mg tablet,delayed 333 mg PO BID #60 tabs 01/18/24 release blood sugar diagnostic (FreeStyle #100 ea 01/21/24 Lite Strips) blood-glucose meter (FreeStyle #1 ea 01/21/24 Lite Meter kit) nitrofurantoin 100 mg PO BID 7 days #14 caps 02/11/24 monohydrate/macrocrystals 100 mg capsule naloxone 4 mg/actuation nasal spray 4 mg intranasal Q2M PRN opioid 02/19/24 overdose #2 ea sodium phosphates 19 gram-7 118 ml MO BEDTIME PRN constipation 03/25/24 gram/197 mL enema (Fleet Enema #230 mL Extra) fluticasone propionate 50 1 spray intranasal DAILY #100 mL 03/28/24 mcg/actuation nasal spray,suspension (Flonase Allergy Relief) lactulose 20 gram/30 mL oral 30 g (45 mL) PO BID #3,000 mL 04/26/24 solution lactulose 10 gram/15 mL (15 mL) 10 g (15 mL) PO DAILY PRN laxative 05/13/24 oral solution effect 5 days #300 mL esomeprazole magnesium 10 mg 20 mg PO BID 90 days #180 ea 05/15/24 granules delayed release for susp ondansetron 4 mg disintegrating 4 mg PO Q8H PRN nausea and 05/26/24 tablet vomiting #9 tabs tramadol 50 mg tablet 50 mg PO TID PRN pain 30 days #90 07/09/24 tabs cefuroxime axetil 250 mg tablet 250 mg PO BID 7 days #14 tabs 07/27/24 ondansetron 4 mg disintegrating 4 mg PO Q6-8H PRN nausea and 07/27/24 tablet vomiting #7 tabs Allergies Allergy/AdvReac Type Severity Reaction Status Date / Time hydrocodone [HYDROCODONE] Allergy Severe RASH, Verified 07/27/24 18:21 AIRWAY CLOSES ibuprofen [From MOTRIN] Allergy Intermediate STOMACH Verified 07/27/24 18:21 UPSET, vomiting trazodone [TRAZODONE] Allergy Intermediate stomach Verified 07/27/24 18:21 upset/anxiety tomato [TOMATO] Allergy Mild HIVES Verified 07/27/24 18:21 DIFFICULTY BREATHING egg Allergy Swelling Verified 07/27/24 18:21 black pepper [BLACK PEPPER] AdvReac Severe DIFFICULTY Verified 07/27/24 18:21 BREATHING, hives lisinopril AdvReac Severe Anaphylaxis Verified 07/27/24 18:21 Review of Systems Review of Systems: Yes all other systems are reviewed and are negative [facility] Past Medical History Medical History Type 2 diabetes mellitus with hyperglycemia Vision changes Gastritis Tongue sore Right ear pain Numbness of left hand History of bipolar disorder History of schizophrenia 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 Spondylosis of lumbar spine Diverticulosis Insomnia Vitamin D deficiency GERD (gastroesophageal reflux disease) Carpal tunnel syndrome Hypercholesterolemia Renal calculi Hypertension Alcohol abuse Anxiety and depression Surgical History History of esophagogastroduodenoscopy (EGD) Hx of colonoscopy Hx of bariatric surgery History of tubal ligation H/O: hysterectomy Family History Family History Father Medical history unknown Mother Medical history unknown Paternal Aunt Uterine cancer Diabetes Hypertension Paternal Uncle Liver cancer Heart attack Lung cancer Maternal Aunt Stroke Family/Other Chronic mental illness Sister Uterine cancer Schizophrenia Brother Substance abuse Paternal Grandmother Lung cancer Other Mental health disorder Social History Social History Household Members: None Housing: Apartment Do you presently have visiting nurse or other home services: Yes Alcohol intake: current Alcohol intake frequency: holidays/special occasions only Alcohol type: beer Patient Tobacco Use Status: Current someday Tobacco user Tobacco use type: Cigarette Cigarettes Per Day: 1 Smoked in Last 30 Days: Yes e-Cigarette/Vaping Use: Never Used Second Hand Smoke Exposure: No Use of substances other than those prescribed or required for medical reasons: No Substance Use Type: Marijuana Advance Directives: No Advance Directives Information Provided: No service: No Current occupational status: disabled Current occupational exposures/hazards: No Cognitive needs: No Hearing needs: No Vision needs: Yes Physical Exam ED Vital Signs: Vital Signs - 24 hr 07/27/24 18:19 07/27/24 21:57 07/27/24 23:00 Temperature 98.4 F 100.6 F H 100.6 F H Pulse Rate 86 68 68 Respiratory Rate 16 18 18 Blood Pressure 128/48 L 143/76 H 143/76 H Pulse Oximetry 100 100 100 Oxygen Delivery Method Room Air Room Air Room Air BMI result Body Mass Index 22.3 Appearance: Alert. Oriented X3. No acute distress. Eyes: PERRLA, No Nystagmus ENT: Pharynx inflamed. Oral Mucosa moist Neck: Normal inspection. Neck supple. CVS: Normal heart rate and rhythm. Pulses normal. Respiratory: No respiratory distress. Equal air entry bilateral, no wheezing/rales/rhonchi Abdomen: Soft and diffuse tenderness no rebound tenderness or guarding. Bowel sounds are present, no mass palpable, no CVA tenderness Skin: Skin warm and dry. Normal skin color. Normal skin turgor. Extremities: No lower extremity edema. No calf tenderness Neuro: Oriented X 3. No motor deficit. Course Course Course Narrative: This is a Rapid Medical Examination (RME) performed by Toney Puri PA-C in triage. Full HPI, ROS, assessment and treatment plan per primary provider in the Main ED. 43 yo Italian speaking female diabetes, iron deficiency anemia, gastric ulcer, constipation, anemia, HTN, ETOH abuse, schizophrenia, bariatric surgery here for eval of feeling unwell for 2 wks (multiple concerns). admits to Q abd pain, radiating to left flank, foul urinary odor, dysuria, shortness of breath, sore throat/ irritation/ burning. Plan: Medications Administered Discontinued Medications Generic Name Dose Route Start Last Admin Trade Name Freq PRN Reason Stop Dose Admin Acetaminophen 975 mg 07/27/24 22:27 07/27/24 22:30 Acetaminophen 325 Mg Tablet PO 07/27/24 22:28 975 mg ONCE ONE Administration Al Hydroxide/Mg Hydroxide 30 ml 07/27/24 22:47 07/27/24 22:52 Magnesium Hydrox/Alum Hydrox 30 Ml Oral.Susp PO 07/27/24 22:48 30 ml ONCE ONE Administration Cefuroxime Axetil 500 mg 07/27/24 22:41 07/27/24 22:52 Cefuroxime Axetil 500 Mg Tablet PO 07/27/24 22:42 500 mg ONCE ONE Administration Loperamide HCl 2 mg 07/27/24 22:47 07/27/24 22:52 Loperamide Hcl 2 Mg Capsule PO 12/29/24 22:48 2 mg ONCE ONE Administration Ondansetron HCl 4 mg 07/27/24 22:46 07/27/24 22:52 Ondansetron Odt 4 Mg Tab.Junedis TRANSLINGU 07/27/24 22:47 4 mg ONCE ONE Administration Medical Decision Making Lab Data [facility] Lab Attestation statement: I reviewed the patient's lab results. 07/27/24 18:44 07/27/24 18:44 Labs: Lab Results 07/27/24 07/27/24 Range/Units 18:44 18:48 WBC 4.7 L (4.8-10.8) X10*3/uL RBC 3.85 L D (4.20-5.50) X10*6/uL Hgb 11.5 L D (12.0-16.0) g/dl Hct 34.4 L (37.0-47.0) % MCV 89.4 (80.0-98.0) fL MCH 29.9 (27.0-33.0) pg MCHC 33.4 (31.0-35.0) g/dl RDW 13.6 (11.0-16.0) % Plt Count 331 (160-400) X10*3/uL MPV 9.8 (9.4-12.3) fL Immature Gran % (Auto) 0.2 (0.0-0.4) % Neut % (Auto) 57.8 (45-73) % Lymph % (Auto) 28.5 (20-40) % Pine % (Auto) 10.5 (2-11) % Eos % (Auto) 1.5 (0-4) % Baso % (Auto) 1.5 (0-2) % Lymph # (Auto) 1.4 (1.2-4.9) X10*3/uL Pine # (Auto) 0.5 (0.1-1.2) X10*3/uL Eos # (Auto) 0.1 (0.0-0.4) X10*3/uL Baso # (Auto) 0.1 (0.0-0.2) X10*3/uL Abs Immat Gran (auto) 0.01 (0.00-0.03) X10*3/uL Absolute Neuts (auto) 2.7 (2.0-8.3) x10*3/uL Absolute Nucleated RBC 0.000 (0.0-0.012) X10*3/uL Nucleated RBC % (auto) 0.0 (0.0-0.2) /100WBC Sodium 139 (135-145) mmol/L Potassium 4.1 (3.3-5.1) mmol/L Chloride 106 (96-108) mmol/L Carbon Dioxide 26 (22-29) mmol/L Anion Gap 11 L (12-20) BUN 12 (9-16) mg/dL Creatinine 0.67 (0.5-1.4) mg/dL Estim Creat Clear Calc 85.6 Estimated GFR > 60 Random Glucose 96 (60-115) mg/dL Calcium 8.8 D (8.4-10.2) mg/dL Magnesium 1.7 (1.6-2.6) mg/dL Total Bilirubin 0.5 (0.0-1.0) mg/dL AST 21 (5-31) U/L ALT 11 (0-31) U/L Alkaline Phosphatase 62 (39-117) U/L Total Protein 6.5 (6.5-8.0) g/dL Albumin 4.1 (3.5-5.0) g/dL Lipase 14 (8-78) U/L Urine Color Yellow Urine Appearance Cloudy Urine pH 7.5 (5.0-9.0) Ur Specific Palmer >= 1.030 H (1.005-1.025) Urine Protein Trace (Neg-Trace) mg/dL Urine Glucose (UA) Negative (Negative) mg/dL Urine Ketones Trace (Negative) mg/dL Urine Blood Negative (Negative) Urine Nitrite Negative (Negative) Ur Leukocyte Esterase Small (1+) H (Negative) Urine RBC 0-2 (0-2) /HPF Urine WBC >50 H (0-5) /HPF Ur Squamous Epith Cells 6-10 (0-2) /HPF Urine Bacteria 2+ (None Seen) Hyaline Casts 0-2 (0-2) /LPF Influenza Type A (PCR) NEGATIVE (Negative) Influenza Type B (PCR) NEGATIVE (Negative) RSV RNA Qual (PCR) NEGATIVE (Negative) SARS-CoV-2 RNA (RT-PCR) NEGATIVE (Negative) S. pyogenes GrpA BRIDGER Negative (Negative) Discharge Plan Discharge Clinical Impression: UTI (urinary tract infection), Gastroenteritis Patient Disposition: Home, Self-Care Instructions: Urinary Tract Infection in Women (DC), Gastroenteritis (ED) Additional Instructions: Drink plenty of fluids Medicine for nausea as prescribed Antibiotic as prescribed Follow with your PCP if not better Prescriptions: New cefuroxime axetil 250 mg tablet 250 mg PO BID 7 Days Qty: 14 0RF ondansetron 4 mg tablet,disintegrating 4 mg PO Q6-8H PRN (Reason: nausea and vomiting) Qty: 7 0RF No Action (DME) CANE See Rx Instructions .Route .MEDSUPPLY Qty: 1 0RF Rx Instructions: As directed (DME) WRIST BRACE See Rx Instructions .Route .MEDSUPPLY Qty: 1 0RF Rx Instructions: As directed ([facility] [place] BATH CHAIR See Rx Instructions .Route .MEDSUPPLY Qty: 1 0RF Rx Instructions: As directed ([facility] [place] LIFELINE ALERT SYSTEM See Rx Instructions .Route .MEDSUPPLY Qty: 1 0RF Rx Instructions: As directed (DME) ALCOHOL PADS See Rx Instructions .Route .MEDSUPPLY Qty: 100 3RF Rx Instructions: As directed (DME) SHOWER WAND See Rx Instructions .Route .MEDSUPPLY Qty: 1 0RF Rx Instructions: As directed ([facility] [place] SHOWER BAR See Rx Instructions .Route .MEDSUPPLY Qty: 1 0RF Rx Instructions: As directed (DME) Bedside commode See Rx Instructions .Route .MEDSUPPLY Qty: 1 0RF Rx Instructions: As directed (DME) Bed pads See Rx Instructions .Route .MEDSUPPLY Qty: 100 12RF Rx Instructions: As directed (DME) SANITARY PADS See Rx Instructions .Route .MEDSUPPLY Qty: 100 12RF Rx Instructions: As directed Ensure Complete 0.1 gram-1.18 kcal/mL liquid 1 ea PO TID Qty: 1184 12RF (DME) ROLLATOR See Rx Instructions .Route .MEDSUPPLY Qty: 1 0RF Rx Instructions: As directed simethicone 40 mg/0.6 mL drops,suspension 0.6 ml PO BID-TID PRN (Reason: abdominal distention) Qty: 15 0RF (DME) blood pressure monitor [Blood Pressure Kit] Kit See Rx Instructions .Route Qty: 1 0RF Rx Instructions: As directed alum-mag hydroxide-simeth [Maalox Advanced] 200-200-20 mg/5 mL suspension 5 ml PO 5XD PRN (Reason: indigestion) Qty: 355 4RF Rx Instructions: administer between meals and at bedtime mv-mins no.73-iron fum-folic 106 mg iron- 1 mg capsule 1 cap PO DAILY Qty: 30 4RF polyethylene glycol 3350 [Miralax] 17 gram/dose powder 17 g PO BID Qty: 850 0RF sucralfate [Carafate] 100 mg/mL suspension 10 ml PO QID Qty: 840 1RF acamprosate 333 mg tablet,delayed release (DR/EC) 333 mg PO BID Qty: 60 0RF (DME) FreeStyle Lite Strips Strip See Rx Instructions .ROUTE .MEDSUPPLY Qty: 100 3RF Rx Instructions: use daily As directed to check blood sugars for diabetes (DME) blood-glucose meter [FreeStyle Lite Meter] Kit See Rx Instructions .ROUTE .MEDSUPPLY Qty: 1 0RF Rx Instructions: Use daily As directed to check blood glucose naloxone 4 mg/actuation spray,non-aerosol 4 mg intranasal Q2M PRN (Reason: opioid overdose) Qty: 2 0RF Rx Instructions: spray 1 dose into ONE nostril; alternate nostrils w each dose until help arrives Fleet Enema Extra 19-7 gram/197 mL enema 118 ml MO BEDTIME PRN (Reason: constipation) Qty: 230 0RF fluticasone propionate [Flonase Allergy Relief] 50 mcg/actuation spray,suspension 1 spray intranasal DAILY Qty: 100 2RF Rx Instructions: administer into each nostril lactulose 20 gram/30 mL solution 30 g PO BID Qty: 3000 0RF tramadol 50 mg tablet 50 mg PO TID PRN (Reason: pain) 30 Days Qty: 90 0RF ondansetron 4 mg tablet,disintegrating 4 mg PO Q8H Qty: 20 0RF sumatriptan 5 mg/actuation spray,non-aerosol 5 mg intranasal Q2-4H PRN (Reason: migraine headache) Qty: 6 1RF Rx Instructions: into each nostril once; if headache remains, may repeat total dose once after at least 2 hours cyclobenzaprine 5 mg tablet 5 mg PO Q8H PRN (Reason: pain (scale score 7-10)) 5 Days Qty: 14 0RF famotidine [Pepcid] 20 mg tablet 20 mg PO BID 10 Days Qty: 20 0RF lactulose 10 gram/15 mL (15 mL) solution 10 g PO DAILY PRN (Reason: laxative effect) 5 Days Qty: 300 0RF prochlorperazine [Compro] 25 mg suppository 25 mg MO Q12H PRN (Reason: nausea and vomiting) Qty: 12 0RF Miracle Mouthwash-Alan 240 mL liquid 15 ml PO BID Qty: 240 0RF Rx Instructions: Nystatin susp 80 mL;Lidocaine 2% Visc 80 mL; Maalox 80 mL; Swish and spit opyxldjpa-pfdofx-fwkgpeyu-scop [] 16.2 mg-0.1037 mg/5 mL (5 mL) elixir 5 ml PO BID PRN (Reason: indigestion) Qty: 50 0RF acetaminophen 160 mg/5 mL liquid 320 mg PO Q6H PRN (Reason: fever or pain) Qty: 473 0RF esomeprazole magnesium [address] for susp in packet 20 mg PO BID 90 Days Qty: 180 0RF Rx Instructions: Mix in applesauce or pudding Fleet Enema 19-7 gram/118 mL enema 197 ml MO DAILY 1 Days Qty: 133 2RF nitrofurantoin monohyd/m-cryst 100 mg capsule 100 mg PO BID 7 Days Qty: 14 0RF Rx Instructions: must administer with a meal/food ondansetron 4 mg tablet,disintegrating 4 mg PO Q8H PRN (Reason: nausea and vomiting) Qty: 9 0RF clonazepam 1 mg tablet 1 mg PO TID Linzess 290 mcg capsule 290 mcg PO DAILY Qty: 30 1RF bisacodyl [Dulcolax (bisacodyl)] 10 mg suppository 10 mg MO DAILY PRN (Reason: constipation) Qty: 30 0RF (DME) blood-glucose meter [OneTouch Verio Meter] Misc See Rx Instructions .Route Rx Instructions: As directed (DME) OneTouch Verio test strips Strip See Rx Instructions .Route Rx Instructions: As directed 3 times a day (DME) lancets [[employer]Touch Delica Lancets] 33 gauge misc See Rx Instructions .Route Rx Instructions: As directed 3 times a day zolpidem 10 mg tablet 10 mg PO BEDTIME PRN (Reason: Insomnia) triamcinolone acetonide 0.1 % cream 1 appl topical DAILY ursodiol 300 mg capsule 300 mg PO BID simethicone [Gas Relief (simethicone)] 80 mg tablet,chewable 160 mg PO BID Interventions: ED Discharge Assessment Last Done: 07/27/24 23:00 Discharge Date/Time: 07/27/24 23:01 Print Language: Italian
[2024-07-27 18:54] LABS: MANUAL DIFF FLAG NO
[2024-07-27 18:55] LABS: Basophils Absolute Auto 0.1 X10*3/uL (0.0-0.2); Basophils Percent Auto 1.5 % (0-2); Eosinophils Absolute Auto 0.1 X10*3/uL (0.0-0.4); Eosinophils Percent Auto 1.5 % (0-4); Hematocrit 34.4 % (37.0-47.0); Hemoglobin 11.5 g/dl (12.0-16.0); Imm Gran Abs Auto 0.01 X10*3/uL (0.00-0.03); Imm Gran Pct Auto 0.2 % (0.0-0.4); Lymphocytes Absolute Auto 1.4 X10*3/uL (1.2-4.9); Lymphocytes Percent Auto 28.5 % (20-40); Mean Corpuscular HGB Conc 33.4 g/dl (31.0-35.0); Mean Corpuscular Hemoglobin 29.9 pg (27.0-33.0); Mean Corpuscular Volume 89.4 fL (80.0-98.0); Mean Platelet Volume 9.8 fL (9.4-12.3); Monocytes Absolute Auto 0.5 X10*3/uL (0.1-1.2); Monocytes Percent Auto 10.5 % (2-11); Neutrophils Absolute Auto 2.7 x10*3/uL (2.0-8.3); Neutrophils Percent Auto 57.8 % (45-73); Platelet Count 331 X10*3/uL (160-400); Red Blood Count 3.85 X10*6/uL (4.20-5.50); Red Cell Distribution Width 13.6 % (11.0-16.0); White Blood Count 4.7 X10*3/uL (4.8-10.8)
[2024-07-27 18:57] LABS: Appearance Urine Cloudy; Color Urine Yellow; Glucose Urine UA Negative (Negative); Leukocyte Esterase Urine Small (1+) (Negative); Nitrite Urine Negative (Negative); PH 7.5 (5.0-9.0); Specific Gravity - Urine >= 1.030 (1.005-1.025); UMIC TRIGGER UACC YES; Urine Blood Negative (Negative); Urine Ketones Trace mg/dL (Negative); Urine Protein Trace mg/dL (Neg-Trace)
[2024-07-27 19:00] LABS: Bacteria Urine 2+ (None Seen); Hyaline Casts Urine 0-2 /LPF (0-2); RBC Urine 0-2 /HPF (0-2); UACC Culture Trigger YES; WBC Urine >50 /HPF (0-5)
[2024-07-27 19:10] LABS: Alanine Aminotransferase 11 U/L (0-31); Albumin Level 4.1 g/dL (3.5-5.0); Alkaline Phosphatase 62 U/L (39-117); Anion Gap 11 (12-20); Aspartate Amino Transferase 21 U/L (5-31); Bilirubin Total 0.5 mg/dL (0.0-1.0); Blood Urea Nitrogen 12 mg/dL (9-16); Calcium 8.8 mg/dL (8.4-10.2); Carbon Dioxide 26 mmol/L (22-29); Chloride 106 mmol/L (96-108); Creatinine Clr Calc Pharmacy 85.6; Estimated Glomerular Filt Rate > 60; Glucose Random 96 mg/dL (60-115); Lipase 14 U/L (8-78); Magnesium 1.7 mg/dL (1.6-2.6); Potassium 4.1 mmol/L (3.3-5.1); Sodium 139 mmol/L (135-145); Total Protein 6.5 g/dL (6.5-8.0)
[2024-07-27 19:13] LABS: IDNOW Serial# 58CA691E; Strep A Nucleic Acid Negative (Negative)
[2024-07-27 19:37] LABS: Influenza A PCR NEGATIVE (Negative); Influenza B PCR NEGATIVE (Negative); Resp Syncy Virus RNA Qual PCR NEGATIVE (Negative); SARS COV2 PCR INHOUSE NEGATIVE (Negative)
[2024-07-27 21:57] VITALS: BP 143/76; PULSE 68; RESP 18; TEMP 38.1; O2SAT 100
[2024-07-27] MEDS: Acetaminophen 325 MG TABLET 975 MG PO (22:30)
[2024-07-27] MEDS: cefuroxime axetiL 500 MG TABLET PO (22:52)
[2024-07-27] MEDS: Magnesium Hydrox/Alum Hydrox 30 ML ORAL.SUSP PO (22:52)
[2024-07-27] MEDS: Loperamide HCl 2 MG CAPSULE PO (22:52)
[2024-07-27] MEDS: Ondansetron ODT 4 MG TAB.RAPDIS TRANSLINGU (22:52)
[2024-07-27 23:00] VITALS: BP 143/76; PULSE 68; RESP 18; TEMP 38.1; O2SAT 100
== END 2024-07-27 23:01 | disposition home or self-care (01) ==
PROVIDERS: Physician Assistant Medical; Emergency Provider Internal Medicine; PCP Internal Medicine
DX: N39.0 Urinary tract infection, site not specified (principal); K52.9 Noninfective gastroenteritis and colitis, unspecified; R10.2 Pelvic and perineal pain; R11.2 Nausea with vomiting, unspecified; R30.0 Dysuria; R35.0 Frequency of micturition; R05.9 Cough, unspecified; J02.9 Acute pharyngitis, unspecified; F17.210 Nicotine dependence, cigarettes, uncomplicated; Z79.899 Other long term (current) drug therapy; Z03.818 Encounter for observation for suspected exposure to other biological agents ruled out
CPT/HCPCS: 0241U; 36415; 71046; 80053; 81001; 83690; 83735; 85025; 87086; 87088; 87186; 87651; 99284

== ENCOUNTER → 2024-07-27 18:27 | Outpatient (BNV) | payer OTHER, SELFPAY | PROVIDERS: PCP Internal Medicine; Visit Provider Radiology Neuroradiology | DX: R06.02 Shortness of breath (principal) | CPT/HCPCS: 71046 ==

== ENCOUNTER 2024-08-25 10:56 | Outpatient (AMB) | payer OTHER, SELFPAY ==
--- NOTE | 2024-08-25 11:00 | MHC.PC.OV ---
Vital Signs 08/25/24 11:03 Height 5 ft 2 in BMI Reason not done Patient refused/unable BP 144/82 H Blood Pressure Location Lt brachial Position Sitting Pulse 73 Pulse Source Pulse Oximeter Temp 97.1 F Temp Source Skin Pulse Oximetry (%) 94 Oxygen Delivery Method Room Air Intake Visit Reasons: Meds review Intake Note: Patient is here to follow up on med review. Private Advisor Required: Yes Private Advisor Language: Plant Etiologist Name: Liz ([id number]) Information Interpreted: non-clinical & clinical Merchandise Complaint Adjuster: Not Required per policy Accompanied by: Self / Same As Patient Allergies hydrocodone [HYDROCODONE] Allergy (Severe, Verified 08/25/24 11:03) RASH, AIRWAY CLOSES ibuprofen [From MOTRIN] Allergy (Intermediate, Verified 08/25/24 11:03) STOMACH UPSET, vomiting trazodone [TRAZODONE] Allergy (Intermediate, Verified 08/25/24 11:03) stomach upset/anxiety tomato [TOMATO] Allergy (Mild, Verified 08/25/24 11:03) HIVES DIFFICULTY BREATHING egg Allergy (Verified 08/25/24 11:03) Swelling black pepper [BLACK PEPPER] Adverse Reaction (Severe, Verified 08/25/24 11:03) DIFFICULTY BREATHING, hives lisinopril Adverse Reaction (Severe, Verified 08/25/24 11:03) Anaphylaxis Medication List - Last Reconciled 08/25/24 by Deirdre Cantrell MD acetaminophen 320 mg (10 mL) PO Q6H PRN [ALCOHOL PADS As directed] alum-mag hydroxide-simeth 200-200-20 mg/5 mL (Maalox Advanced) 5 mL PO 5XD PRN [BATH CHAIR As directed] [Bed pads As directed] [Bedside commode As directed] bisacodyl (Dulcolax (bisacodyl)) 10 mg WV DAILY PRN blood pressure monitor (Blood Pressure Kit) As directed blood sugar diagnostic (FreeStyle Lite Strips) use daily As directed to check blood sugars for diabetes blood-glucose meter (FreeStyle Lite Meter kit) Use daily As directed to check blood glucose [CANE As directed] clonazepam 1 mg PO TID cyclobenzaprine 5 mg PO Q8H PRN [address] 20 mg PO BID 90 days famotidine (Pepcid) 20 mg PO BID 10 days fluticasone propionate 50 mcg/actuation (Flonase Allergy Relief) 1 spray intranasal DAILY food supplemt, lactose-reduced (Ensure Complete) 1 ea PO TID lactulose 10 grams (15 mL) PO DAILY PRN 5 days [[employer] ALERT SYSTEM As directed] linaclotide (Linzess) 290 mcg PO DAILY mv-mins no.73-iron fum-folic 106 mg iron- 1 mg 1 cap PO DAILY naloxone 4 mg/actuation 4 mg intranasal Q2M PRN ondansetron 4 mg PO Q6-8H PRN polyethylene glycol 3350 (Miralax) 17 grams PO BID prochlorperazine (Compro) 25 mg WV Q12H PRN [ROLLATOR As directed] [SANITARY PADS As directed] [SHOWER BAR As directed] [SHOWER WAND As directed] simethicone 0.6 mL PO BID-TID PRN sucralfate (Carafate) 10 mL PO QID sumatriptan 5 mg/actuation 5 mg intranasal Q2-4H PRN tramadol 50 mg PO TID PRN 30 days triamcinolone acetonide 0.1% 1 appl topical DAILY [WRIST BRACE As directed] zolpidem 10 mg PO BEDTIME PRN Tobacco use date assessed: 08/25/24 Dental Screening Dental Screen Date: 08/25/24 Did you have a dental visit in the last 12 months?: Yes Did you have a dental problem in the last 6 months where you did not have access to dental care?: No Was dental information given to patient?: Patient has dentist HPI Meds review HPI Details liz nunez The patient is a 43-year-old female presenting with abdominal pain and foul-smelling urine. She reports experiencing severe left-sided abdominal pain for several weeks, along with a foul odor in her urine, which has been concerning. The patient has a history of constipation and has been taking lactulose to alleviate symptoms, which she finds effective. Additionally, she reports high blood pressure, which has been elevated recently. The patient is on multiple medications including omeprazole for gastroesophageal reflux disease, clonazepam for anxiety, and cyclobenzaprine for muscle relaxation. She also uses Ensure for nutritional supplementation but expresses concern about the cost, as it is not covered by her insurance plan. Past medical history includes migraines managed with sumatriptan. She was previously on iron infusions for iron deficiency anemia, which alleviated symptoms but have not been repeated recently. The patient's family history is significant for a lack of olfactory sense in her , which makes him a poor property insurance agent of the urine odor. She notes that recent transportation issues led to no-shows at appointments, affecting her care continuity. [facility] Medical History Type 2 diabetes mellitus with hyperglycemia Vision changes Gastritis Tongue sore Right ear pain Numbness of left hand History of bipolar disorder History of schizophrenia 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 Spondylosis of lumbar spine Diverticulosis Insomnia Vitamin D deficiency GERD (gastroesophageal reflux disease) Carpal tunnel syndrome Hypercholesterolemia Renal calculi Hypertension Alcohol abuse Anxiety and depression Surgical History History of esophagogastroduodenoscopy (EGD) Hx of colonoscopy Hx of bariatric surgery History of tubal ligation H/O: hysterectomy Family History Father Medical history unknown Mother Medical history unknown Paternal Aunt Uterine cancer Diabetes Hypertension Paternal Uncle Liver cancer Heart attack Lung cancer Maternal Aunt Stroke Family/Other Chronic mental illness Sister Uterine cancer Schizophrenia Brother Substance abuse Paternal Grandmother Lung cancer Other Mental health disorder Social History Household Members: None Housing: Apartment Do you presently have visiting nurse or other home services: Yes Alcohol intake: current Alcohol intake frequency: holidays/special occasions only Alcohol type: beer Patient Tobacco Use Status: Former Tobacco user Tobacco use type: Cigarette Cigarette Packs Per Day: 0.25 Cigarettes Per Day: 1 e-Cigarette/Vaping Use: Never Used Second Hand Smoke Exposure: Yes Substance Use Type: Marijuana service: No Current occupational status: disabled Current occupational exposures/hazards: No Cognitive needs: No Hearing needs: No Vision needs: Yes Female Reproductive History Menstrual Age of Menarche: 11 Questionnaire PHQ-9 Over the last 2 weeks, how often have you been bothered by any of the following problems? 1. Little interest or pleasure in doing things: not at all 2. Feeling down, depressed, or hopeless: not at all 3. Trouble falling or staying asleep, or sleeping too much: not at all 4. Feeling tired or having little energy: not at all 5. Poor appetite or overeating: not at all 6. Feeling bad about yourself - or that you are a failure or have let yourself or your family down: not at all 7. Trouble concentrating on things, such as reading the newspaper or watching television: not at all 8. Moving or speaking so slowly that other people could have noticed. Or the opposite - being so fidgety or restless that you have been moving around a lot more than usual: not at all 9. Thoughts that you would be better off or of hurting yourself in some way: not at all Total score: 0 Depression Screening Interpretation: Negative Depression Screening Done: Yes Source: Developed by Drs. Dinesh Freire, Niru Dimas, Denys Dodson and colleagues, with an educational mihai from [employer]. Thrive Questionnaire Date Thrive assessed: 08/25/24 I am a: Patient What is your living situation today?: I have a steady place to live Within the past 12 months, did the food you bought not last and you didn't have the money to get more?: Never true Within the past 12 months, did you worry whether your food would run out before you got money to buy more?: Never true Do you have trouble paying for medicines?: No Do you have trouble getting transportation to medical appointments?: No Do you have trouble paying your heating and electricity bill?: No Do you have trouble taking care of your child, family member or friend?: No Do you have trouble with day-to-day activities such as bathing, preparing meals, shopping, managing finances, etc.?: No Are you currently unemployed and looking for a job?: No Are you interested in more education?: No Please select the resources that you would like help with: None Currently or been in a relationship where the following occur: No concerns reported THRIVE Score: 0 AUDIT C Alcohol Use Questionnaire (AUDIT-C) 1. How often do you have a drink containing alcohol?: Never Total Score: 0 JUDITH-7 AMB Questionnaire JUDITH-7 Date JUDITH - 7 assessed: 08/25/24 Feeling nervous, anxious, or on edge: 3 = Nearly every day Not being able to stop or control worryin = More than half the days Worrying too much about different things: 2 = More than half the days Trouble relaxin = More than half the days Being so restless that it is hard to sit still: 0 = Not at all Becoming easily annoyed or irritable: 2 = More than half the days Feeling afraid as if something awful might happen: 1 = Several days Total JUDITH-7 score (0-4 normal; 5-9 mild; 10-14 moderate; 15-21 severe): 12 Source: Developed by Drs. Dinesh Freire, Niru Dimas, Denys Dodson and colleagues, with an educational mihai from [employer]. Physical exam (Primary Care) Vital Signs: Last Vital Signs Temp 97.1 F 08/25/24 11:03 Pulse 73 08/25/24 11:03 BP 144/82 H 08/25/24 11:03 Pulse Ox 94 08/25/24 11:03 Oxygen Delivery Method Room Air 08/25/24 11:03 Tobacco/Smoking Status: Tobacco use Status Tobacco use date assessed 08/25/24 08/25/24 11:21 Patient Tobacco Use Status Former Tobacco user 08/25/24 11:21 Tobacco use type Cigarette 08/25/24 11:21 e-Cigarette/Vaping Use Never Used 08/25/24 11:21 PHQ-9: PHQ-9 Score PHQ-9: Total score 0 08/25/24 11:21 Depression Screening Interpretation: Negative Thrive Assessment: Date of Thrive Assessment Date Thrive assessed 08/25/24 08/25/24 11:21 Currently or been in a relationship where the following occur: No concerns reported Const General: alert; No acute distress Eyes Conjunctivae: conjunctivae normal Resp Auscultation: clear to auscultation bilaterally Cardio Rate: regular rate Rhythm: regular rhythm GI Inspection: Yes normal to inspection Extrem General: Yes normal to inspection and No edema Coding Level of Care Code Est Pt Level 4 (62438) Complex EM visit Add On G2211 Diagnoses S/P gastric sleeve procedure Z90.3 Generalized anxiety disorder F41.1 History of schizophrenia Z86.59 Essential hypertension I10 Hypertension type: essential hypertension Gastroesophageal reflux disease without esophagitis K21.9 Breast cancer screening by mammogram Z12.31 Assessment & Plan Assessment & Plan (1) S/P gastric sleeve procedure: Comment: 10/19/21 - Bhavna assisted gastric sleeve gastrectomy by Dr. Americo GUTIERRES laparoscopic sleeve converted to gastric bypass under 07/27/2023. Code(s): Z90.3 - Acquired absence of stomach [part of] Category: Surgical (2) Generalized anxiety disorder: Comment: [facility] Code(s): F41.1 - Generalized anxiety disorder Category: Medical (3) History of schizophrenia: Code(s): Z86.59 - Personal history of other mental and behavioral disorders Category: Medical (4) Hypertension: Code(s): I10 - Essential (primary) hypertension Category: Medical Qualifiers: Hypertension type: essential hypertension Qualified Code(s): I10 - Essential (primary) hypertension (5) GERD (gastroesophageal reflux disease): Code(s): K21.9 - Gastro-esophageal reflux disease without esophagitis Category: Medical (6) Breast cancer screening by mammogram: Code(s): Z12.31 - Encounter for screening mammogram for malignant neoplasm of breast Category: Medical Plan - Arrange urine analysis and complete blood work to assess abdominal pain and urinary odor. - Restart iron infusions to address iron deficiency anemia. - Prescribe a home blood pressure monitor and initiate antihypertensive therapy with lisinopril, monitoring for tolerance. - Continue current GERD management with omeprazole and lactulose for constipation, as it has been effective. - Review migraine management; continue sumatriptan as needed. - Discuss alternatives or insurance options for nutritional supplementation with Ensure. - Regular follow-ups for alcohol use disorder, despite current non-use of acamprosate. - Address patient concerns about high blood pressure with lifestyle modifications and assess medication compliance. - Investigate transportation resources to facilitate attendance at appointments. - Administer seasonal influenza vaccination during next visit for health maintenance. Orders: Orders Complete Blood Count Auto Diff Today K21.9 - Gastro-esophageal reflux disease without esophagitis Comprehensive Met. Panel Today K21.9 - Gastro-esophageal reflux disease without esophagitis Thyroid Stimulating Hormone Today K21.9 - Gastro-esophageal reflux disease without esophagitis Lipid Panel Today E78.00 - Pure hypercholesterolemia, unspecified, K21.9 - Gastro-esophageal reflux disease without esophagitis UA CC w/rflx Micro + Cult Today K21.9 - Gastro-esophageal reflux disease without esophagitis, R30.0 - Dysuria UA CC w/rflx Micro + Cult 2 Days K21.9 - Gastro-esophageal reflux disease without esophagitis, R30.0 - Dysuria Ferritin Today K21.9 - Gastro-esophageal reflux disease without esophagitis IRON PROFILE Today K21.9 - Gastro-esophageal reflux disease without esophagitis Reticulocyte Count Today K21.9 - Gastro-esophageal reflux disease without esophagitis Vitamin B12 and Folate Today K21.9 - Gastro-esophageal reflux disease without esophagitis Free T4 (Free Thyroxine) Today K21.9 - Gastro-esophageal reflux disease without esophagitis Hemoglobin A1c Today K21.9 - Gastro-esophageal reflux disease without esophagitis MM tomosynthesis screening BI Today Z12.31 - Encounter for screening mammogram for malignant neoplasm of breast Medications: New blood pressure monitor (Blood Pressure Kit) As directed 1 ea 0RF I10 - Essential (primary) hypertension amlodipine 2.5 mg PO DAILY 30 tabs 3RF I10 - Essential (primary) hypertension Refilled famotidine (Pepcid) 20 mg PO BID 10 days 20 tabs 0RF linaclotide (Linzess) 290 mcg PO DAILY 30 caps 1RF tramadol 50 mg PO TID 30 days PRN 90 tabs 0RF pain M54.10 - Radiculopathy, site unspecified blood sugar diagnostic (FreeStyle Lite Strips) use daily As directed to check blood sugars for diabetes 100 ea 3RF E11.65 - Type 2 diabetes mellitus with hyperglycemia blood-glucose meter (FreeStyle Lite Meter kit) Use daily As directed to check blood glucose 1 ea 0RF E11.65 - Type 2 diabetes mellitus with hyperglycemia food supplemt, lactose-reduced (Ensure Complete) 1 ea PO TID 1,184 mL 12RF Z90.3 - Acquired absence of stomach [part of] acetaminophen 320 mg (10 mL) PO Q6H PRN 473 mL 0RF fever or pain alum-mag hydroxide-simeth 200-200-20 mg/5 mL (Maalox Advanced) administer between meals and at bedtime 5 mL PO 5XD PRN 355 mL 4RF indigestion D64.9 - Anemia, unspecified naloxone 4 mg/actuation spray 1 dose into ONE nostril; alternate nostrils w each dose until help arrives 4 mg intranasal Q2M PRN 2 ea 0RF opioid overdose polyethylene glycol 3350 (Miralax) 17 grams PO BID 850 grams 0RF
[2024-08-25 11:03] VITALS: BP 144/82; PULSE 73; TEMP 36.2; O2SAT 94
--- OUTSIDE RECORDS SUMMARY | 2024-08-25 15:50 | XMS_ITS | Clinical Summary ---
Author Organization [facility] it Address [id number] [place] [phone] Care Team Providers Care Loop Sewer Name Role Phone Deirdre Desai MD Primary Care Provider [phone] Allergies Active Allergy Reactions Criticality Noted Date Comments Hydrocodone Itching,Wheezing High 02/20/2017 Ibuprofen GI intolerance,Itching 02/20/2017 Lisinopril 08/29/2022 Other Hives 02/09/2022 Trazodone Dizziness,Wheezing High 02/20/2017 Medications Medication Sig Dispensed Refills Start Date End Date Status clonazePAM (KlonoPIN) 1 mg tablet Take 1 mg by mouth daily. Active hydrOXYzine pamoate (VISTARIL) 50 mg capsule Take 50 mg by mouth 2 times daily. Active methocarbamoL (ROBAXIN) 500 mg tablet Take 500 mg by mouth 4 times daily. Active omeprazole (PriLOSEC) [address] capsule Take 20 mg by mouth 2 times daily. Active zolpidem (AMBIEN) 10 mg tablet Take 1 tablet by mouth at bedtime as needed. Active venlafaxine XR (EFFEXOR-XR) 150 mg 24 hr capsule TAKE 1 CAPSULE BY MOUTH EVERY DAY IN THE MORNING 01/27/2022 Active trospium (SANCTURA) 20 mg tablet 05/18/2022 Active QUEtiapine (SEROquel) 400 mg tablet TAKE 1 TABLET BY MOUTH EVERYDAY AT BEDTIME 01/01/2022 Active sertraline (ZOLOFT) 100 mg tablet Take 200 mg by mouth daily. Active sucralfate (CARAFATE) 1 gram tablet Take 1 g by mouth 2 Times Daily. 11/13/2021 Active ondansetron (ZOFRAN) 4 mg tablet Take 1 Tablet by mouth every 8 hours as needed. Active FREESTYLE LANCETS MISC 01/26/2022 Active lactulose (CHRONULAC) solution 02/08/2022 Acti ve ferrous sulfate 325 mg (65 mg iron) EC tablet Take 1 Tablet by mouth daily. 04/20/2023 Active famotidine (PEPCID) 40 mg tablet TAKE 1 TABLET BY MOUTH EVERYDAY AT BEDTIME 01/27/2022 Active dicyclomine (BENTYL) 20 mg tablet Take 20 mg by mouth 2 Times Daily. 01/11/2022 Active zinc glycinate 30 mg capsule Take 1 Capsule by mouth daily. 04/20/2023 Active linaCLOtide (Linzess) 290 mcg capsule 01/17/2021 Active blood sugar diagnostic (FreeStyle Lite Strips) test strip USE TO TEST DAILY 01/27/2022 Active WHEAT DEXTRIN ORAL Take 4 g by mouth daily. 07/24/2023 Active simethicone (MYLICON) 80 mg chewable tablet Take 1 Tablet by mouth every 6 hours as needed for Flatulence. 05/06/2024 Active ursodioL (ACTIGALL) 300 mg capsule TAKE 1 CAPSULE BY MOUTH TWICE A DAY 60 capsule 5 08/12/2024 Active Active Problems Problem Noted Date Diagnosed Date Lumbar degenerative disc disease 02/10/2022 Overview (06/15/2024): Last Assessment & Plan: This exam was performed with the assistance of an [facility] language services medical staff services coordinator, Galileo #[id number]. Ms. Leger states that she was unable to tolerate PT since she is been off pain meds and has not had a recent injection. She was followed by [facility] for pain management receiving oxycodone and epidural injections in which time she could go to physical therapy. Since her last visit here, she has been miserable and suffering from her chronic pain. This is focused in the right lower back to the hip and up her back to her shoulder and neck. Her right leg is the worst and most chronic finding and she describes it as something invading my right leg causing her difficulty with walking. The pain is especially focused in her right knee and in the sole of her foot so that when she is walking, she constantly has to oyster picker her leg. It is occasionally numb. On further questioning, she was previously followed at [facility] and was diagnosed with fibromyalgia and a chronic rheumatoid disorder but she left the practice when she had to change housing. On exam, she is bright and alert, answering the questions directly to the head of sales promotion and some to me in [place]. She appears to be in moderate distress. Seated SLR is mildly positive on the right above 90 degrees. Right lower extremity strength is diffusely 5- out of 5 with slight weakness compared to the left. Its unclear if this is effort related or due to pain. Sensation to light touch is intact, gait is steady. We discussed that her previous lumbar spine MRI shows degenerative disc disease mainly at L5-S1 with a left-sided disc herniation and no right-sided nerve root compression. There are early changes at L4-5. None of this explains her extensive pain throughout her body, mainly on the right and in the large joints. I recommended that we refer her back to her treating physician for fibromyalgia at [facility] and we will make every effort to figure out who this was and get her to the right people. Immunizations Name Administration Dates Next Due DTaP (Infanrix) 6wks to less than 7yo 10/03/2011 Hepatitis B (Cvirnax-C-Xyqpg , Recombivax HB-Adult) 19yo and older 09/17/2014,02/26/2014,01/12/2014 Influenza trivalent, 0.5mL, preservative free (Fluarix; FluLaval; Fluzone) ages 6mo and older (Afluria) 3 years and older 05/21/2017 Pneumococcal polysaccharide 23 valent (Pneumovax 23) 2yo and older 04/02/2016,10/03/2011 Tdap Tetanus diptheria acell ular pertussis (Boostrix; Adacel) 7yo and older 10/03/2011 Surgical History Surgery Date Site/Laterality Comments HYSTERECTOMY 10/16/2016 PROCEDURE: HISTORICAL HYSTERECTOMY; COMMENT: [facility] due to fibroids TUBAL LIGATION 2011 PROCEDURE: HISTORICAL TUBAL LIGATION; COMMENT: [facility] GASTRIC BYPASS PROCEDURE: [place] GASTRIC RSTCV W/BYP W/SM INT RCNSTJ LIMIT ABSRPJ; COMMENT: Gastric sleeve Medical History Medical History Date Comments Anemia DX:Anemia Anxiety state DX:Anxiety state Diabetes mellitus type 2, co ntrolled, with complications (CMS/HCC) DX:Diabetes mellitus type 2, controlled, with complications (HCC) Generalized osteoarthrosis, unspecified site DX:Generalized osteoarthrosi s, unspecified site Chronic gastric ulcer with obstruction DX:Chronic gastric ulcer with obstruction Abnormal cytological finding in specimen from cervix 01/09/2012 DX:Abnormal cytological find ing in specimen from cervix; COMMENT: [facility] - HPV Diverticulitis 2012 DX:Diverticuliti s Constipation 2004 DX:Constipation HTN (hypertension) DX:HTN (hyper tension); COMMENT: Lisinopril Family History Medical History Relation Name Comments Other: of accident Father Breast cancer Father's side Cousin Other: unknown Mother Mother disap peared Diabetes Paternal Grandfather Arthritis Paternal Grandmother Relation Name Status Comments Father Father's side Cousin Alive Mother Alive Paternal Grandfather Paternal Grandmother Social History Tobacco Use Types Packs/Day Years Used Date Smoking Tobacco: Former Smokeless Tobacco: Never Alcohol Use Standard Drinks/Week Comments Yes 0 (1 standard drink = 0.6 oz pur e alcohol) Sex and Gender Information Value Date Recorded Sex Assigned at Not on file Gender Identity Not on file Sexual Orientation Not on file Job Start Date Occupation Industry Not on file Not on file Not on file Obstetrics History Last Filed Vital Signs Vital Sign Reading Time Taken Comments Blood Pressure 140/91 09/25/2023 1:11 PM EST Pulse 67 09/25/2023 1:11 PM EST Temperature - - Respiratory Rate - - Oxygen Saturation - - Inhaled Oxygen Concentration - - Weight 48.5 kg (107 lb) 11/14/2023 2:15 PM EDT Height 157.5 cm (5' 2 ) 09/25/2023 1:11 PM EST Body Mass Index 19.57 09/25/2023 1:11 PM EST Plan of Treatment Upcoming Encounters Date Type Department Care Team (Late st Contact Info) Description 09/09/2024 10:15 AM EST Office Visit Bariatric Surgery - [place] [address] [phone] Radha Malave PA [address] [facility] [address] [place] [address] Health Maintenance Due Date Last Done Comments Breast Cancer Screening 1980 Diabetes: Annual Foot Exam 1990 Diabetes: Annual Retina Eye Exam 1990 Cervical Cancer Screening: P ap Smear 05/21/2018 05/21/2015, 05/21/2015 DTaP,Tdap,and Td Vaccines (3 - Td or Tdap) 10/02/2021 10/03/2011, 10/03/2011 Depression Screening 07/08/2022 HIV Screening 07/08/2022 Hepatitis C Screening 07/08/2022 Social Influencers of Health Screening 07/08/2022 Diabetes: Annual Urine Albumin-Creatinine Ratio (uACR) 07/15/2022 Diabetes: Blood Sugar Contro l Test (HGBA1C) 07/15/2022 02/25/2021 COVID-19 Vaccine ( - 2023-2 5 season) 2024 Influenza Vaccine (#1) 2024 05/21/2017 Diabetes: Annual GFR (Glomerular Filtration Rate) 09/25/2024 09/25/2023 Hypertension/CHF/CAD Annual BMP Blood Test 09/25/2024 09/25/2023 Cholesterol Screening (Lipid Panel) 02/25/2026 02/25/2021 Hepatitis B Vaccines Completed 09/17/2014, 02/26/2014, 01/12/2014 Pneumococcal Vaccine: Pediatrics (0 to 5 Years) and At-Risk Patients (6 to 64 Years) Aged Out 04/02/2016, 10/03/2011 No longer eligible based on patient's age to complete this topic HIB Vaccines Aged Out No longer eligi ble based on patient's age to complete this topic HPV Vaccines Aged Out No longer eligi ble based on patient's age to complete this topic Hepatitis A Vaccines Aged Out No long er eligible based on patient's age to complete this topic IPV Vaccines Aged Out No longer eligi ble based on patient's age to complete this topic MMR Vaccines Aged Out No longer eligi ble based on patient's age to complete this topic Meningococcal ACWY Vaccine Aged Out N o longer eligible based on patient's age to complete this topic RSV Immunization Patients Under 20 months Aged Out No longer eligible b ased on patient's age to complete this topic Varicella Vaccines Aged Out No longer eligible based on patient's age to complete this topic Procedures Procedure Name Priority Date/Time Associated Diagnosis Comments ANNUAL BMP BLOOD TEST Routine 09/25/2023 HEMOGLOBIN A1C Routine 02/25/2021 LIPID PANEL Routine 02/25/2021 HM HPV Routine 05/21/2015 from Last 3 Months or Most Recently Relevant to Health Maintenance Results * Annual BMP Blood Test (09/25/2023) Pathologist [facility] Annual BMP Blood Test abstracted Historical Provider MD JOSI TAY E * Hemoglobin A1c (02/25/2021) Pathologist [facility] Hemoglobin A1C 5.7 6.5 % Blood Venous blood specimen / Unknown Historical Provider LAB BLOOD ORDERAB LES * (ABNORMAL) Lipid panel (02/25/2021) [facility] LDL/HDL Ratio 6(A) 0 - 4 Triglycerides 104 0 - 150 mg/dL Cholesterol 208(A) 0 - 200 mg/dL HDL 36(A) 40 mg/dL LDL Cholesterol 152(A) 0 - 100 mg/dL Blood Venous blood specimen / Unknown Historical Provider LAB BLOOD ORDERAB LES * Cervical Cancer Screening: HPV (05/21/2015) Pathologist [facility] Cervical Cancer Screening: HPV abstracted, no interpretation Historical Provider MD JOSI Higgins from Last 3 Months or Most Recently Relevant to Health Maintenance Care Teams Loop Sewer Relationship Specialty Start Date End Date Deirdre Desai MD [address] [place] [address] Dr Ferreira [address] [facility] [place] [address] PCP - General Internal Medicine 02/14/22
--- OUTSIDE RECORDS SUMMARY | 2024-08-25 15:50 | XMS_ITS | Clinical Summary ---
Author Organization [facility] Address [address] [place] [address] Care Team Providers Care Sink Cutter Name Role Phone Unavailable Primary Care Provider Unavailabl e Social History Tobacco Use Types Packs/Day Years Used Date Smoking Tobacco: Never Assessed Sex and Gender Information Value Date Recorded Sex Assigned at Not on file Gender Identity Not on file Sexual Orientation Not on file Job Start Date Occupation Industry Not on file Not on file Not on file Plan of Treatment Not on file
== END 2024-08-25 11:55 | disposition home or self-care (01) ==
PROVIDERS: PCP Internal Medicine; Visit Provider Internal Medicine
DX: Z90.3 Acquired absence of stomach [part of] (principal); F41.1 Generalized anxiety disorder; Z86.59 Personal history of other mental and behavioral disorders; I10 Essential (primary) hypertension; K21.9 Gastro-esophageal reflux disease without esophagitis; Z12.31 Encounter for screening mammogram for malignant neoplasm of breast

== ENCOUNTER 2024-08-25 10:56 | Outpatient (REF) | payer OTHER, SELFPAY ==
[2024-08-25 12:49] LABS: MANUAL DIFF FLAG NO
[2024-08-25 13:26] LABS: Appearance Urine Turbid; Color Urine Yellow; Glucose Urine UA Negative (Negative); Leukocyte Esterase Urine Large (3+) (Negative); Nitrite Urine Positive (Negative); PH 6.5 (5.0-9.0); UMIC TRIGGER UACC YES; Urine Blood Negative (Negative); Urine Ketones Trace mg/dL (Negative); Urine Protein 30 (1+) mg/dL (Neg-Trace)
[2024-08-25 13:27] LABS: Basophils Absolute Auto 0.1 X10*3/uL (0.0-0.2); Basophils Percent Auto 1.3 % (0-2); Eosinophils Absolute Auto 0.1 X10*3/uL (0.0-0.4); Eosinophils Percent Auto 1.7 % (0-4); Hematocrit 38.6 % (37.0-47.0); Hemoglobin 12.8 g/dl (12.0-16.0); Imm Gran Abs Auto 0.01 X10*3/uL (0.00-0.03); Imm Gran Pct Auto 0.2 % (0.0-0.4); Immature Retic Fraction 10.5 % (3.0-15.9); Lymphocytes Absolute Auto 1.3 X10*3/uL (1.2-4.9); Lymphocytes Percent Auto 26.7 % (20-40); Mean Corpuscular HGB Conc 33.2 g/dl (31.0-35.0); Mean Corpuscular Hemoglobin 29.6 pg (27.0-33.0); Mean Corpuscular Volume 89.1 fL (80.0-98.0); Mean Platelet Volume 10.1 fL (9.4-12.3); Monocytes Absolute Auto 0.4 X10*3/uL (0.1-1.2); Monocytes Percent Auto 7.4 % (2-11); Neutrophils Percent Auto 62.7 % (45-73); Platelet Count 371 X10*3/uL (160-400); Red Blood Count 4.33 X10*6/uL (4.20-5.50); Red Cell Distribution Width 13.5 % (11.0-16.0); Retic HGB Equivalent 32.1 pg (30.0-35.0); Reticulocytes Absolute 0.041 X10*6/uL (0.026-0.095); White Blood Count 4.8 X10*3/uL (4.8-10.8)
[2024-08-25 13:30] LABS: Estimated Average Glucose 97 mg/dL; Hemoglobin A1C 105.2577 umol/L; Total Hemoglobin (HGBA1C) 3359.0022 umol/L
[2024-08-25 13:48] LABS: Bacteria Urine 4+ (None Seen); Hyaline Casts Urine 0-2 /LPF (0-2); RBC Urine 0-2 /HPF (0-2); UACC Culture Trigger YES; WBC Clumps Urine Present; WBC Urine >50 /HPF (0-5)
[2024-08-25 14:11] LABS: Alanine Aminotransferase 19 U/L (0-31); Albumin Level 4.7 g/dL (3.5-5.0); Alkaline Phosphatase 84 U/L (39-117); Anion Gap 13 (12-20); Aspartate Amino Transferase 33 U/L (5-31); Bilirubin Total 0.3 mg/dL (0.0-1.0); Blood Urea Nitrogen 10 mg/dL (9-16); Calcium 9.3 mg/dL (8.4-10.2); Carbon Dioxide 29 mmol/L (22-29); Chloride 102 mmol/L (96-108); Cholesterol 200 mg/dL (<200); Estimated Glomerular Filt Rate > 60; Ferritin 10 ng/mL (10-250); Free T4 (Free Thyroxine) 0.84 ng/dL (0.71-1.85); Glucose Random 72 mg/dL (60-115); HDL Cholesterol 57 mg/dL (>40); Iron 48 mcg/dL (30-160); LDL Cholesterol Calculated 115 mg/dL (<100); Percent Iron Saturation 14 % (15-50); Potassium 3.8 mmol/L (3.3-5.1); Sodium 140 mmol/L (135-145); Thyroid Stimulating Hormone 0.86 uIU/mL (0.32-4.0); Total Iron Binding Capacity 345 mcg/dL (228-428); Total Protein 7.9 g/dL (6.5-8.0); Triglycerides 142 mg/dL (<150); Unsaturated Iron Binding 297 ug/dL
[2024-08-25 14:41] LABS: Folate 3.9 ng/mL (> or = 4.0); Vitamin B12 191 pg/mL (200-900)
--- OUTSIDE RECORDS SUMMARY | 2024-08-25 17:01 | XMS_ITS | Encounter Summary ---
Author Organization [employer] [facility] Address [address] [place] [address] Care Team Providers Care Stonework Tracer Name Role Phone Unavailable Primary Care Provider Unavailabl e Encounter Details Date Type Department Care Team (Latest Contact Info) Description 10/26/2020 Abstract [facility] CONVERSIONS Dental, Provider, DDS Social History Tobacco Use Types Packs/Day Years Used Date Smoking Tobacco: Never Assessed Comments Unknown Sex and Gender Information Value Date Recorded Sex Assigned at Female 05/29/2022 10:17 AM EDT Legal Sex Female 10:17 AM EDT Gender Identity Female 05/29/2022 10:17 AM EDT Sexual Orientation Straight 05/29/2022 10 :17 AM EDT documented as of this encounter Plan of Treatment Not on file documented as of this encounter Visit Diagnoses Not on filedocumented in this encounter
--- OUTSIDE RECORDS SUMMARY | 2024-08-25 17:01 | XMS_ITS | Clinical Summary ---
Author Organization [facility] Address [address] [place] [address] Care Team Providers Care Signaler Name Role Phone Unavailable Primary Care Provider [...]
--- OUTSIDE RECORDS SUMMARY | 2024-08-25 17:02 | XMS_ITS | Clinical Summary ---
Author Organization [employer] Address [address] [facility] [address] [facility] [address] [place] [address] Care Team Providers Care Food And Beverage Intern Name Role Phone Unavailable Primary Care Provider Unavailabl e Social History Tobacco Use Types Packs/Day Years Used Date Smoking Tobacco: Never Assessed Comments Unknown Sex and Gender Information Value Date Recorded Sex Assigned at Female 05/29/2022 10:17 AM EDT Legal Sex Female 10:17 AM EDT Gender Identity Female 05/29/2022 10:17 AM EDT Sexual Orientation Straight 05/29/2022 10 :17 AM EDT Plan of Treatment Health Maintenance Due Date Last Done Comments Depression Screening 1980 Alcohol/Substance Use Screening 1992 Tobacco Screening 1992 Family Planning (PISQ) 10/20/1995 Pap Smear 2001 Cervical Cancer Screening 2010 HPV/Cotest 2010 Mammogram 2020 DTaP/Tdap/Td Vaccines (3 - T d or Tdap) 10/02/2021 10/03/2011, 10/03/2011 COVID-19 Vaccine ( - 2023-2 5 season) 2024 Influenza Vaccine (#1) 2024 Zoster Vaccines (1 of 2) 2030 RSV Patients and Patients Aged 60 years or older (1 - 1-dose 75+ series) 10/20/2055 Pneumococcal Vaccine: Pediatrics (0 to 5 Years) and At-Risk Patients (6 to 64 Years) Aged Out 10/03/2011 No longer eligible b ased on patient's age to complete this topic Hepatitis B Vaccines Completed 09/17/2014, 02/26/2014, 01/12/2014 HIB Vaccines Aged Out No longer eligi [...] patient's age to complete this topic Meningococcal Vaccine Aged Out No isaac richard eligible based on patient's age to complete this topic RSV under 20 months Aged Out No longe r eligible based on patient's age to complete this topic Rotavirus Vaccines Aged Out No longer eligible based on patient's age to complete this topic
--- OUTSIDE RECORDS SUMMARY | 2024-08-25 17:02 | XMS_ITS | Encounter Summary ---
Author Organization [facility] Address [address] [facility] [address] [place] [address] Care Team Providers Care Brick Chimney Supervisor Name Role Phone Unavailable Primary Care Provider Unavailabl e Encounter Details Date Type Department Care Team (Latest Contact Info) Description 06/03/2019 Abstract C CONVERSIONS Dental, Provider, DDS Social History Tobacco [...]
--- OUTSIDE RECORDS SUMMARY | 2024-08-25 17:02 | XMS_ITS | Clinical Summary ---
Author Organization [facility] it Address [address] [place] [phone] Care Team Providers Care Dietitian Name Role Phone Deirdre Desai MD Primary Care Provider [phone] Allergies Active Allergy Reactions Criticality Noted Date [...] was performed with the assistance of an [facility] language services court interpreter, Galileo #[id number]. Ms. Leger states that she was unable to tolerate PT since she is been off pain meds and has not had a recent injection. She was followed by [facility] for pain management receiving [...] she is walking, she constantly has to picker packer her leg. It is occasionally numb. On further questioning, she was previously followed at [facility] and was diagnosed with fibromyalgia and a chronic rheumatoid disorder but she left the practice when she had to change housing. On exam, she is bright and alert, answering the questions directly to the certified court/medical interpreter and some to me in [place]an. She appears to be in moderate distress. [...] to her treating physician for fibromyalgia at [facility] and we will make every effort to figure out who this was and get her to the right people. Immunizations Name Administration Dates Next Due DTaP (Infanrix) 6wks to less than 7yo 10/03/2011 Hepatitis B (Dzjkqne-I-Vdprb , Recombivax HB-Adult) 19yo and older 09/17/2014,02/26/2014,01/12/2014 [...] LIGATION 2011 PROCEDURE: HISTORICAL TUBAL LIGATION; COMMENT: [facility] GASTRIC BYPASS PROCEDURE: [place] GASTRIC RSTCV W/BYP W/SM INT RCNSTJ LIMIT [...] AM EST Office Visit Bariatric Surgery - [place] [address] [phone] Radha Malave PA [address] [facility] [address] [place] [address] Health Maintenance Due Date Last Done Comments [...] Annual BMP Blood Test (09/25/2023) Pathologist [facility] Annual BMP Blood Test abstracted Historical Provider MD JOSI TAY E * Hemoglobin A1c (02/25/2021) Pathologist [facility] Hemoglobin A1C 5.7 6.5 % Blood Venous blood specimen / Unknown Historical Provider LAB BLOOD ORDERAB LES * (ABNORMAL) Lipid panel (02/25/2021) [facility] LDL/HDL Ratio 6(A) 0 - 4 Triglycerides 104 0 - 150 mg/dL Cholesterol 208(A) 0 - 200 mg/dL HDL 36(A) 40 mg/dL LDL Cholesterol 152(A) 0 - 100 mg/dL Blood Venous blood specimen / Unknown Historical Provider LAB BLOOD ORDERAB LES * Cervical Cancer Screening: HPV (05/21/2015) Pathologist [facility] Cervical Cancer Screening: HPV abstracted, no interpretation Historical Provider MD JOSI Higgins from Last 3 Months or Most Recently Relevant to Health Maintenance Care Teams Dietitian Relationship Specialty Start Date End Date Deirdre Desai MD [address] [place] [address] Dr Ferreira [address] [facility] [place] [address] PCP - General Internal Medicine 02/14/22
== END 2024-08-25 10:57 | disposition home or self-care (01) ==
LOC: HO.LAB 10:56
PROVIDERS: PCP Internal Medicine; Visit Provider Internal Medicine
DX: K21.9 Gastro-esophageal reflux disease without esophagitis (principal); E78.00 Pure hypercholesterolemia, unspecified; R30.0 Dysuria; Z90.3 Acquired absence of stomach [part of]; F41.1 Generalized anxiety disorder; I10 Essential (primary) hypertension
CPT/HCPCS: 36415; 80053; 80061; 81001; 82607; 82728; 82746; 83036; 83540; 84439; 84443; 85025; 85045; 87086; 87088; 87186; 99212

== ENCOUNTER 2024-09-15 10:59 | Emergency (ER) | payer OTHER, SELFPAY ==
[2024-09-15 11:10] VITALS: BP 148/92; PULSE 71; RESP 18; TEMP 36.6; O2SAT 98; BMI 21.4
--- NOTE | 2024-09-15 11:12 | ED_ITS ---
HPI - General Adult General Chief complaint: General Medical Stated complaint: Diff Swallowing Vomiting Pain Time Seen by Provider: 09/15/24 13:55 Source: patient, RN notes reviewed, old records reviewed and foreign language interpreter Mode of arrival: ambulatory Limitations: language barrier History of Present Illness ED Provider: Janie HPI narrative: Patient is a 43-year-old Austrian speaking female with history of chronic constipation, s/p gastric bypass at [facility] in Jun 2023, DM, anemia, dysphagia, class D esophagitis with feeding tube recommended, adrenal insufficiency, HTN, GERD, HLD presenting to the ED with complaint of 9-10 days of esophageal burning, painful swallowing, decreased PO intake, vomiting with PO intake, subjective fevers. States at times emesis is blood tinged. Has appointment with Dr. Callaway at [facility] bariatric surgery on . At last visit it was recommended that patient have a barium swallow. Called Dr. Leavitt's office today but was unable to get an appointment. Also reports that she has been urinating small amounts and urine has had foul odor. Currently on pantoprazole, maalox, and sucralfate. MD complaint: painful swallowing Onset (ago): day(s) Related Data Home Medications ?Medication ?Instructions ?Recorded ?Confirmed triamcinolone acetonide 0.1 % 1 appl topical DAILY 02/07/23 08/25/24 topical cream zolpidem 10 mg tablet 10 mg PO BEDTIME PRN Insomnia 02/07/23 08/25/24 clonazepam 1 mg tablet 1 mg PO TID 08/25/24 08/25/24 Previous Rx's ?Medication ?Instructions ?Recorded BATH CHAIR #1 ea 01/31/22 CANE #1 ea 01/31/22 LIFELINE ALERT SYSTEM #1 ea 01/31/22 WRIST BRACE #1 ea 01/31/22 ALCOHOL PADS #100 ea 02/21/22 SHOWER BAR #1 ea 06/08/22 SHOWER WAND #1 ea 06/08/22 Bed pads #100 ea 07/17/22 Bedside commode #1 ea 07/17/22 SANITARY PADS #100 ea 07/17/22 sumatriptan 5 mg/actuation nasal 5 mg intranasal Q2-4H PRN migraine 03/03/23 spray headache #6 ea prochlorperazine 25 mg rectal 25 mg AR Q12H PRN nausea and 03/16/23 suppository (Compro) vomiting #12 ea cyclobenzaprine 5 mg tablet 5 mg PO Q8H PRN pain (scale score 03/20/23 7-10) 5 days #14 tabs ROLLATOR #1 ea 06/28/23 simethicone 40 mg/0.6 mL oral 0.6 ml PO BID-TID PRN abdominal 08/02/23 drops,suspension distention #15 mL blood pressure monitor (Blood #1 ea 08/06/23 Pressure Kit) bisacodyl 10 mg rectal suppository 10 mg AR DAILY PRN constipation 11/14/23 (Dulcolax (bisacodyl)) #30 ea multivit-minerals no.73-iron 1 cap PO DAILY #30 caps 12/19/23 fumarate 106 mg-folic acid 1 mg capsule sucralfate 100 mg/mL oral 10 ml PO QID #840 mL 01/16/24 suspension (Carafate) fluticasone propionate 50 1 spray intranasal DAILY #100 mL 03/28/24 mcg/actuation nasal spray,suspension (Flonase Allergy Relief) lactulose 10 gram/15 mL (15 mL) 10 g (15 mL) PO DAILY PRN laxative 05/13/24 oral solution effect 5 days #300 mL esomeprazole magnesium 10 mg 20 mg PO BID 90 days #180 ea 05/15/24 granules delayed release for susp ondansetron 4 mg disintegrating 4 mg PO Q6-8H PRN nausea and 07/27/24 tablet vomiting #7 tabs acetaminophen 160 mg/5 mL oral 320 mg (10 mL) PO Q6H PRN fever or 08/25/24 liquid pain #473 mL aluminum-mag hydroxide-simethicone 5 ml PO 5XD PRN indigestion #355 mL 08/25/24 200 mg-200 mg-20 mg/5 mL oral susp (Maalox Advanced) amlodipine 2.5 mg tablet 2.5 mg PO DAILY #30 tabs 08/25/24 blood pressure monitor (Blood #1 ea 08/25/24 Pressure Kit) blood sugar diagnostic (FreeStyle #100 ea 08/25/24 Lite Strips) blood-glucose meter (FreeStyle #1 ea 08/25/24 Lite Meter kit) cyanocobalamin (vitamin B-12) 1,000 mcg PO DAILY #30 caps 08/25/24 1,000 mcg capsule famotidine 20 mg tablet (Pepcid) 20 mg PO BID 10 days #20 tabs 08/25/24 ferrous gluconate 225 mg (27 mg 225 mg PO DAILY #90 tabs 08/25/24 iron) tablet folic acid 1 mg tablet 1 mg PO DAILY #90 tabs 08/25/24 linaclotide 290 mcg capsule 290 mcg PO DAILY #30 caps 08/25/24 (Linzess) naloxone 4 mg/actuation nasal spray 4 mg intranasal Q2M PRN opioid 08/25/24 overdose #2 ea nitrofurantoin 100 mg PO Q12H 7 days #14 caps 08/25/24 monohydrate/macrocrystals 100 mg capsule (Macrobid) polyethylene glycol 3350 17 17 g PO BID #850 grams 08/25/24 gram/dose oral powder (Miralax) tramadol 50 mg tablet 50 mg PO TID PRN pain 30 days #90 08/25/24 tabs Free Style lite glucometer kit #1 ea 09/03/24 food supplemt, lactose-reduced 0.1 1 ea PO TID #1,184 mL 09/08/24 gram-1.18 kcal/mL oral liquid (Ensure Complete) Allergies Allergy/AdvReac Type Severity Reaction Status Date / Time hydrocodone [HYDROCODONE] Allergy Severe RASH, Verified 09/15/24 11:13 AIRWAY CLOSES ibuprofen [From MOTRIN] Allergy Intermediate STOMACH Verified 09/15/24 11:13 UPSET, vomiting trazodone [TRAZODONE] Allergy Intermediate stomach Verified 09/15/24 11:13 upset/anxiety tomato [TOMATO] Allergy Mild HIVES Verified 09/15/24 11:13 DIFFICULTY BREATHING egg Allergy Swelling Verified 09/15/24 11:13 black pepper [BLACK PEPPER] AdvReac Severe DIFFICULTY Verified 09/15/24 11:13 BREATHING, hives lisinopril AdvReac Severe Anaphylaxis Verified 09/15/24 11:13 Review of Systems 2 Review of Systems: As per HPI Yes all other systems are reviewed and are negative Constitutional: Constitutional: Reports as per HPI PMFSH Past Medical History Medical History Type 2 diabetes mellitus with hyperglycemia Vision changes Gastritis Tongue sore Right ear pain Numbness of left hand History of bipolar disorder History of schizophrenia 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 Spondylosis of lumbar spine Diverticulosis Insomnia Vitamin D deficiency GERD (gastroesophageal reflux disease) Carpal tunnel syndrome Hypercholesterolemia Renal calculi Hypertension Alcohol abuse Anxiety and depression Surgical History History of esophagogastroduodenoscopy (EGD) Hx of colonoscopy Hx of bariatric surgery History of tubal ligation H/O: hysterectomy Family History Family History Father Medical history unknown Mother Medical history unknown Paternal Aunt Uterine cancer Diabetes Hypertension Paternal Uncle Liver cancer Heart attack Lung cancer Maternal Aunt Stroke Family/Other Chronic mental illness Sister Uterine cancer Schizophrenia Brother Substance abuse Paternal Grandmother Lung cancer Other Mental health disorder Social History Social History Household Members: None Housing: Apartment Do you presently have visiting nurse or other home services: Yes Alcohol intake: current Alcohol intake frequency: holidays/special occasions only Alcohol type: beer Patient Tobacco Use Status: Former Tobacco user Tobacco use type: Cigarette Cigarette Packs Per Day: 0.25 Cigarettes Per Day: 1 Smoked in Last 30 Days: Yes e-Cigarette/Vaping Use: Never Used Second Hand Smoke Exposure: Yes Use of substances other than those prescribed or required for medical reasons: No Substance Use Type: Marijuana Advance Directives: No Advance Directives Information Provided: Yes Do you have a plan to hurt others: No Plan Patient : No service: No Current occupational status: disabled Current occupational exposures/hazards: No Cognitive needs: No Hearing needs: No Vision needs: Yes Physical Exam ED Vital Signs: Vital Signs - 24 hr 09/15/24 11:10 09/15/24 15:34 Temperature 98 F 98 F Pulse Rate 71 66 Respiratory Rate 18 18 Blood Pressure 148/92 H 151/101 H Pulse Oximetry 98 100 Oxygen Delivery Method Room Air Room Air BMI result Body Mass Index 21.4 Vital signs have been reviewed and appear to be correct. Blood pressure elevated. Heart rate normal. Respiratory rate normal. Temperature normal. Oxygen saturation normal. Const General: cooperative, healthy appearing and no acute distress Orientation/consciousness: oriented to person, oriented to place, oriented to time and patient oriented x3 Limitations: no limitations HENMT Head: Yes normocephalic and Yes atraumatic Ears: external ears normal General nose exam: Normal external nose present Face and sinus: Yes face symmetric Mouth: oropharynx normal and moist mucous membranes Throat: Yes posterior oropharynx normal, Yes uvula midline, No peritonsillar mass and No uvular edema Eyes Pupils: Equal, round and reactive pupils present Neck Neck: Yes normal visual inspection, Yes no lymphadenopathy, Yes trachea midline and Yes supple Resp Effort & Inspection: normal respiratory effort and able to speak in complete sentences Auscultation: clear to auscultation bilaterally Cardio Rate: regular rate Rhythm: regular rhythm Heart sounds: S1 normal heart sound present and S2 normal heart sound present GI Palpation (GI): Soft to palpation and nontender Auscultation: normoactive bowel sounds General: Yes no CVA tenderness Back/Spine/Pelvis Back: no CVA tenderness Skin General skin exam: elasticity normal and turgor normal Neuro General: oriented to person, oriented to place, oriented to time, patient oriented x3, moves all extremities, no focal motor deficits and CN's II-XI intact bilaterally Cranial nerves: Yes Equal, round and reactive pupils present Cognition (Neuro): normal cognition Extrem General: Yes full ROM, Yes no pedal edema and Yes no calf tenderness Psych Mental Status: mental status grossly normal Affect: normal affect Thought process: Normal thought process present Course Course Course Narrative: This is an RME: Additional HPI, ROS, PE not included below will be deferred to primary provider. RME assessment and note performed by: Gabby Montanez PA-C This is a [id number]-female who presents to the ER with complaints of sore throat and epigastric pain x 9 days. Reports that she had a stomach bypass in 2022, then had it fixed in 2023. She states that since June she has had these issues however over the last 9 days this has worsened significantly. She states that she has had epigastric pain as well as a sore throat and is having difficulty swallowing. Airway is widely patent, speaking in full sentences. Plan: Labs, EKG, UA, further ER eval needed Reevaluation(s) Reevaluation #1: Notified by nursing of low glucose level. Patient able to tolerate juice, pudding, and jello-o, will recheck glucose shortly. Time: 16:33 Medical Decision Making Medical Decision Making [facility] Narrative: Patient is a 43-year-old Austrian speaking female with history of chronic constipation, s/p gastric bypass at [facility] in Jun 2023, DM, anemia, dysphagia, class D esophagitis with feeding tube recommended, adrenal insufficiency, HTN, GERD, HLD presenting to the ED with complaint of 9-10 days of esophageal burning, painful swallowing, decreased PO intake, vomiting with PO intake, subjective fevers. On exam patient is awake, A+Ox3, VS WNL, afebrile, normal neurological exam without focal deficits, physical exam findings as above. Given reported symptoms and physical exam findings, initial differential includes but is not limited to esophagitis, chronic pain. Labs unremarkable. Urine notable for positive nitrites, 6-10 WBCs, 4+ bacteria, will treat for UTI. Patient evaluated frequently in this ED for similar esophageal/abdominal pain. Had outpatient EGD/colonoscopy with Dr. Leavitt in Apr. Has follow up appointment at [facility] on . She is managing secretions without difficulty. No vomiting noted in the ED. Case discussed with attending MD, Dr. Marrero, who does not feel additional imaging is indicated at this time. Patient signed out to NOEL Sandoval pending repeat glucose check. Advise follow up with Dr. Leavitt and Dr. Callaway. Differential Diagnosis Differential Diagnoses: The differential diagnosis associated with the presentation includes as per [facility] Admission/Observation Consideration of admission/observation: Escalation of care including admission/observation considered Patient would have been admitted to the hospital had their work up had any findings where hospital admission was appropriate and their clinical presentation warranted hospital admission. Lab Data [facility] Lab Attestation statement: I reviewed the patient's lab results. as per [facility] 09/15/24 12:02 09/15/24 12:02 Labs: Lab Results 09/15/24 09/15/24 09/15/24 Range/Units 12:01 12:02 16:04 WBC 3.7 L (4.8-10.8) X10*3/uL RBC 4.05 L (4.20-5.50) X10*6/uL Hgb 11.9 L (12.0-16.0) g/dl Hct 34.9 L (37.0-47.0) % MCV 86.2 (80.0-98.0) fL MCH 29.4 (27.0-33.0) pg MCHC 34.1 (31.0-35.0) g/dl RDW 13.3 (11.0-16.0) % Plt Count 286 (160-400) X10*3/uL MPV 10.5 (9.4-12.3) fL Immature Gran % (Auto) 1.1 H (0.0-0.4) % Neut % (Auto) 47.3 (45-73) % Lymph % (Auto) 35.7 (20-40) % Crane % (Auto) 12.7 H (2-11) % Eos % (Auto) 1.6 (0-4) % Baso % (Auto) 1.6 (0-2) % Lymph # (Auto) 1.3 (1.2-4.9) X10*3/uL Crane # (Auto) 0.5 (0.1-1.2) X10*3/uL Eos # (Auto) 0.1 (0.0-0.4) X10*3/uL Baso # (Auto) 0.1 (0.0-0.2) X10*3/uL Abs Immat Gran (auto) 0.04 H (0.00-0.03) X10*3/uL Absolute Neuts (auto) 1.8 L (2.0-8.3) x10*3/uL Absolute Nucleated RBC 0.000 (0.0-0.012) X10*3/uL Nucleated RBC % (auto) 0.0 (0.0-0.2) /100WBC Smear Tech's Comments VERIFIED Sodium 139 (135-145) mmol/L Potassium 4.0 (3.3-5.1) mmol/L Chloride 107 (96-108) mmol/L Carbon Dioxide 21 L (22-29) mmol/L Anion Gap 15 (12-20) BUN 9 (9-16) mg/dL Creatinine 0.54 (0.5-1.4) mg/dL Estim Creat Clear Calc 106.2 Estimated GFR > 60 POC Glucose 52 L* (60-115) mg/dL Random Glucose 79 (60-115) mg/dL Calcium 8.8 (8.4-10.2) mg/dL Magnesium 1.9 (1.6-2.6) mg/dL Total Bilirubin 0.3 (0.0-1.0) mg/dL Direct Bilirubin 0.1 (0.0-0.5) mg/dL AST 25 (5-31) U/L ALT 11 (0-31) U/L Alkaline Phosphatase 63 (39-117) U/L Troponin I High Sens < 2.7 (<3.5-17.0) ng/L Total Protein 7.2 (6.5-8.0) g/dL Albumin 4.0 (3.5-5.0) g/dL Lipase 10 (8-78) U/L Urine Color Yellow Urine Appearance Clear Urine pH 7.5 (5.0-9.0) Ur Specific [place] 1.020 (1.005-1.025) Urine Protein 30 (1+) H (Neg-Trace) mg/dL Urine Glucose (UA) Negative (Negative) mg/dL Urine Ketones Negative (Negative) mg/dL Urine Blood Negative (Negative) Urine Nitrite Positive H (Negative) Ur Leukocyte Esterase Negative (Negative) Urine RBC 0-2 (0-2) /HPF Urine WBC 6-10 H (0-5) /HPF Ur Squamous Epith Cells 6-10 (0-2) /HPF Urine Bacteria 4+ (None Seen) Hyaline Casts 0-2 (0-2) /LPF Influenza Type A (PCR) NEGATIVE (Negative) Influenza Type B (PCR) NEGATIVE (Negative) RSV RNA Qual (PCR) NEGATIVE (Negative) SARS-CoV-2 RNA (RT-PCR) NEGATIVE (Negative) S. pyogenes GrpA BRIDGER Negative (Negative) External Record Review External record reviewed: Inpatient record, Office record and Outpatient record Discharge Plan Discharge Clinical Impression: UTI (urinary tract infection), Pain on swallowing Patient Disposition: Still a Patient Prescriptions: No Action (DME) CANE See Rx Instructions .Route .MEDSUPPLY Qty: 1 0RF Rx Instructions: As directed (DME) WRIST BRACE See Rx Instructions .Route .MEDSUPPLY Qty: 1 0RF Rx Instructions: As directed (DME) BATH CHAIR See Rx Instructions .Route .MEDSUPPLY Qty: 1 0RF Rx Instructions: As directed (DME) LIFELINE ALERT SYSTEM See Rx Instructions .Route .MEDSUPPLY Qty: 1 0RF Rx Instructions: As directed ([facility]) ALCOHOL PADS See Rx Instructions .Route .MEDSUPPLY Qty: 100 3RF Rx Instructions: As directed ([facility]) SHOWER WAND See Rx Instructions .Route .MEDSUPPLY Qty: 1 0RF Rx Instructions: As directed ([facility]) SHOWER BAR See Rx Instructions .Route .MEDSUPPLY Qty: 1 0RF Rx Instructions: As directed ([facility]) Bedside commode See Rx Instructions .Route .MEDSUPPLY Qty: 1 0RF Rx Instructions: As directed ([facility]) Bed pads See Rx Instructions .Route .MEDSUPPLY Qty: 100 12RF Rx Instructions: As directed ([facility]) SANITARY PADS See Rx Instructions .Route .MEDSUPPLY Qty: 100 12RF Rx Instructions: As directed ([facility]) ROLLATOR See Rx Instructions .Route .MEDSUPPLY Qty: 1 0RF Rx Instructions: As directed simethicone 40 mg/0.6 mL drops,suspension 0.6 ml PO BID-TID PRN (Reason: abdominal distention) Qty: 15 0RF ([facility]) blood pressure monitor [Blood Pressure Kit] Kit See Rx Instructions .Route Qty: 1 0RF Rx Instructions: As directed mv-mins no.73-iron fum-folic 106 mg iron- 1 mg capsule 1 cap PO DAILY Qty: 30 4RF sucralfate [Carafate] 100 mg/mL suspension 10 ml PO QID Qty: 840 1RF fluticasone propionate [Flonase Allergy Relief] 50 mcg/actuation spray,suspension 1 spray intranasal DAILY Qty: 100 2RF Rx Instructions: administer into each nostril tramadol 50 mg tablet 50 mg PO TID PRN (Reason: pain) 30 Days Qty: 90 0RF ferrous gluconate 225 mg (27 mg iron) tablet 225 mg PO DAILY Qty: 90 0RF folic acid 1 mg tablet 1 mg PO DAILY Qty: 90 0RF cyanocobalamin (vitamin B-12) 1,000 mcg capsule 1,000 mcg PO DAILY Qty: 30 3RF nitrofurantoin monohyd/m-cryst [Macrobid] 100 mg capsule 100 mg PO Q12H 7 Days Qty: 14 0RF Rx Instructions: must administer with a meal/food ([facility]) Free Style lite glucometer kit See Rx Instructions .Route .MEDSUPPLY Qty: 1 0RF Rx Instructions: As directed Ensure Complete 0.1 gram- 1.18 kcal/mL liquid 1 ea PO TID Qty: 1184 12RF sumatriptan 5 mg/actuation spray,non-aerosol 5 mg intranasal Q2-4H PRN (Reason: migraine headache) Qty: 6 1RF Rx Instructions: into each nostril once; if headache remains, may repeat total dose once after at least 2 hours cyclobenzaprine 5 mg tablet 5 mg PO Q8H PRN (Reason: pain (scale score 7-10)) 5 Days Qty: 14 0RF lactulose 10 gram/15 mL (15 mL) solution 10 g PO DAILY PRN (Reason: laxative effect) 5 Days Qty: 300 0RF prochlorperazine [Compro] 25 mg suppository 25 mg AR Q12H PRN (Reason: nausea and vomiting) Qty: 12 0RF esomeprazole magnesium [address] for susp in packet 20 mg PO BID 90 Days Qty: 180 0RF Rx Instructions: Mix in applesauce or pudding ondansetron 4 mg tablet,disintegrating 4 mg PO Q6-8H PRN (Reason: nausea and vomiting) Qty: 7 0RF clonazepam 1 mg tablet 1 mg PO TID Rx Instructions: [facility] bisacodyl [Dulcolax (bisacodyl)] 10 mg suppository 10 mg AR DAILY PRN (Reason: constipation) Qty: 30 0RF acetaminophen 160 mg/5 mL liquid 320 mg PO Q6H PRN (Reason: fever or pain) Qty: 473 0RF alum-mag hydroxide-simeth [Maalox Advanced] 200-200-20 mg/5 mL suspension 5 ml PO 5XD PRN (Reason: indigestion) Qty: 355 4RF Rx Instructions: administer between meals and at bedtime famotidine [Pepcid] 20 mg tablet 20 mg PO BID 10 Days Qty: 20 0RF Linzess 290 mcg capsule 290 mcg PO DAILY Qty: 30 1RF naloxone 4 mg/actuation spray,non-aerosol 4 mg intranasal Q2M PRN (Reason: opioid overdose) Qty: 2 0RF Rx Instructions: spray 1 dose into ONE nostril; alternate nostrils w each dose until help arrives polyethylene glycol 3350 [Miralax] 17 gram/dose powder 17 g PO BID Qty: 850 0RF (DME) FreeStyle Lite Strips Strip See Rx Instructions .ROUTE .MEDSUPPLY Qty: 100 3RF Rx Instructions: use daily As directed to check blood sugars for diabetes (DME) blood-glucose meter [FreeStyle Lite Meter] Kit See Rx Instructions .ROUTE .MEDSUPPLY Qty: 1 0RF Rx Instructions: Use daily As directed to check blood glucose (DME) blood pressure monitor [Blood Pressure Kit] Kit See Rx Instructions .ROUTE .MEDSUPPLY Qty: 1 0RF Rx Instructions: As directed amlodipine 2.5 mg tablet 2.5 mg PO DAILY Qty: 30 3RF zolpidem 10 mg tablet 10 mg PO BEDTIME PRN (Reason: Insomnia) triamcinolone acetonide 0.1 % cream 1 appl topical DAILY Print Language: Austrian
--- NOTE | 2024-09-15 11:17 | ECG_ITS ---
Test Reason : EPIGASTRICT PAIN Blood Pressure : */* mmHG Vent. Rate : 55 BPM Atrial Rate : 55 BPM P-R Int : 146 ms QRS Dur : 80 ms QT Int : 418 ms P-R-T Axes : 53 69 48 degrees QTcB Int : 399 ms Sinus bradycardia Otherwise normal ECG When compared with ECG of 26-May-2024 11:46, No significant change was found Referred By: Gabby Montanez Electronically Signed By: NEISHA LOPEZ
[2024-09-15 12:11] LABS: Appearance Urine Clear; Color Urine Yellow; Glucose Urine UA Negative (Negative); Leukocyte Esterase Urine Negative (Negative); Nitrite Urine Positive (Negative); PH 7.5 (5.0-9.0); UMIC TRIGGER UACC YES; Urine Blood Negative (Negative); Urine Ketones Negative (Negative); Urine Protein 30 (1+) mg/dL (Neg-Trace)
[2024-09-15 12:15] LABS: Bacteria Urine 4+ (None Seen); Hyaline Casts Urine 0-2 /LPF (0-2); RBC Urine 0-2 /HPF (0-2); UACC Culture Trigger YES
[2024-09-15 12:17] LABS: IDNOW Serial# 08D9AD1C; Strep A Nucleic Acid Negative (Negative)
[2024-09-15 12:24] LABS: Basophils Absolute Auto 0.1 X10*3/uL (0.0-0.2); Basophils Percent Auto 1.6 % (0-2); Eosinophils Absolute Auto 0.1 X10*3/uL (0.0-0.4); Eosinophils Percent Auto 1.6 % (0-4); Hematocrit 34.9 % (37.0-47.0); Hemoglobin 11.9 g/dl (12.0-16.0); Imm Gran Abs Auto 0.04 X10*3/uL (0.00-0.03); Imm Gran Pct Auto 1.1 % (0.0-0.4); Lymphocytes Absolute Auto 1.3 X10*3/uL (1.2-4.9); Lymphocytes Percent Auto 35.7 % (20-40); MANUAL DIFF FLAG SCAN; Mean Corpuscular HGB Conc 34.1 g/dl (31.0-35.0); Mean Corpuscular Hemoglobin 29.4 pg (27.0-33.0); Mean Corpuscular Volume 86.2 fL (80.0-98.0); Monocytes Absolute Auto 0.5 X10*3/uL (0.1-1.2); Monocytes Percent Auto 12.7 % (2-11); Neutrophils Absolute Auto 1.8 x10*3/uL (2.0-8.3); Neutrophils Percent Auto 47.3 % (45-73); PLT CLUMP 1; Red Blood Count 4.05 X10*6/uL (4.20-5.50); Red Cell Distribution Width 13.3 % (11.0-16.0); SCAN SMEAR FLAG 1
[2024-09-15 12:30] LABS: Alanine Aminotransferase 11 U/L (0-31); Anion Gap 15 (12-20); Aspartate Amino Transferase 25 U/L (5-31); Bilirubin Direct 0.1 mg/dL (0.0-0.5); Bilirubin Total 0.3 mg/dL (0.0-1.0); Blood Urea Nitrogen 9 mg/dL (9-16); Calcium 8.8 mg/dL (8.4-10.2); Carbon Dioxide 21 mmol/L (22-29); Chloride 107 mmol/L (96-108); Creatinine Clr Calc Pharmacy 106.2; Estimated Glomerular Filt Rate > 60; Glucose Random 79 mg/dL (60-115); Lipase 10 U/L (8-78); Magnesium 1.9 mg/dL (1.6-2.6); Sodium 139 mmol/L (135-145); Total Protein 7.2 g/dL (6.5-8.0)
[2024-09-15 12:36] LABS: Troponin-I High Sensitivity < 2.7 ng/L (<3.5-17.0)
[2024-09-15 12:49] LABS: Influenza A PCR NEGATIVE (Negative); Influenza B PCR NEGATIVE (Negative); Resp Syncy Virus RNA Qual PCR NEGATIVE (Negative); SARS COV2 PCR INHOUSE NEGATIVE (Negative)
[2024-09-15 12:57] LABS: Mean Platelet Volume 10.5 fL (9.4-12.3); Platelet Count 286 X10*3/uL (160-400); White Blood Count 3.7 X10*3/uL (4.8-10.8)
[2024-09-15 12:58] LABS: SLIDE REVIEW VERIFIED
[2024-09-15 13:50] LABS: Alkaline Phosphatase 63 U/L (39-117)
--- OUTSIDE RECORDS SUMMARY | 2024-09-15 13:52 | XMS_ITS | Clinical Summary ---
Author Organization [facility] Address [address] [place] [address] Care Team Providers Care Sampler Radioactive Waste Name Role Phone Unavailable Primary Care Provider [...]
--- OUTSIDE RECORDS SUMMARY | 2024-09-15 13:52 | XMS_ITS | Clinical Summary ---
Author Organization [address] [place] [address] Address [address] [place] [address] Phone Care Team Providers Care Crozer Operator Name Role Phone Deirdre Cantrell MD Primary Care Provider [phone] Allergies Active Allergy Reactions Criticality Noted Date Comments Hydrocodone Itching,Wheezing High 02/20/2017 Ibuprofen GI intolerance,Itching 02/20/2017 Lisinopril 08/29/2022 Other Hives 02/09/2022 Trazodone Dizziness,Wheezing High 02/20/2017 Medications clonazePAM (KlonoPIN) 1 mg tablet Take 1 [...] MISC 01/26/2022 Active lactulose (CHRONULAC) solution 02/08/2022 Active ferrous sulfate 325 mg (65 mg iron) [...] was performed with the assistance of an [employer] language services plant puller, [employer] #[id number]. Ms. Leger states that she was unable to tolerate PT since she is been off pain meds and has not had a recent injection. 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 It is occasionally numb. On further questioning, she was previously followed at [facility] and was diagnosed with fibromyalgia and a chronic rheumatoid disorder but she left the practice when she had to change housing. On exam, she is bright and alert, answering the questions directly to the firer locomotive and some to me in Slovak. She appears to be in moderate distress. [...] to her treating physician for fibromyalgia at [place] and we will make every effort to figure out who this was and get her to the right people. Immunizations Name Administration Dates Next Due DTaP (Infanrix) 6wks to less than 7yo 10/03/2011 Hepatitis B (Sramtzm-H-Mtakn , Recombivax HB-Adult) 19yo and older 09/17/2014,02/26/2014,01/12/2014 [...] LIGATION 2011 PROCEDURE: HISTORICAL TUBAL LIGATION; COMMENT: [facility] GASTRIC BYPASS PROCEDURE: MD GASTRIC RSTCV W/BYP W/SM INT RCNSTJ LIMIT [...] drink = 0.6 oz pur e alcohol) Comments Unknown Sex and Gender Information Value Date Recorded Sex Assigned at Not on file Legal Sex Female 9:25 AM EST Gender Identity Not on file Sexual Orientation Not on file Obstetrics History Last Filed [...] Care Team (Late st Contact Info) Description 09/18/2024 8:45 AM EST Office Visit Bariatric Surgery - [place] [address] [phone] David Driscoll MD 175 [facility] [address] [place] [address] Health Maintenance Due Date Last Done Comments [...] l Test (HGBA1C) 07/15/2022 02/25/2021 COVID-19 Vaccine (1 - 2023-2 5 season) 2024 Influenza Vaccine [...] patient's age to complete this topic Meningococcal B Vacine Aged Out No lo nger eligible based on patient's age to complete this topic RSV Immunization Patients Under 20 months Aged Out No longer eligible b ased on patient's age to complete this topic Varicella Vaccines Aged Out No longer eligible based on patient's age to complete this topic Procedures Procedure Name Priority Date/Time Associated Diagnosis Comments HM ANNUAL BMP BLOOD TEST Routine 09/25/2023 HEMOGLOBIN A1C Routine 02/25/2021 LIPID PANEL Routine 02/25/2021 HPV Routine 05/21/2015 from Last 3 Months or Most Recently Relevant to Health Maintenance Results * Annual BMP Blood Test (09/25/2023) Annual BMP Blood Test abstracted [facility] Provider HEALTH MAINTENANCE Final Result * Hemoglobin A1c (02/25/2021) Pathologist [facility] Hemoglobin A1C 5.7 <=6.5 % Blood Venous blood specimen / Unknown [facility] Provider LAB BLOOD ORDERABLES Katelyn l Result * (ABNORMAL) Lipid panel (02/25/2021) Pathologist [facility] LDL/HDL Ratio 6(A) 0 - 4 Triglycerides 104 0 - 150 mg/dL Cholesterol 208(A) 0 - 200 mg/dL HDL 36(A) >=40 mg/dL LDL Cholesterol 152(A) 0 - 100 mg/dL Blood Venous blood specimen / Unknown [facility] Provider LAB BLOOD ORDERABLES Katelyn l Result * Cervical Cancer Screening: HPV (05/21/2015) Pathologist [facility] Cervical Cancer Screening: HPV abstracted, no interpretation [facility] Provider HEALTH MAINTENANCE Final Result from Last 3 Months or Most Recently Relevant to Health Maintenance Insurance [facility] Care Teams Crozer Operator Relationship Specialty Start Date End Date Deirdre Cantrell MD [address] [place] [address] [address] [facility] [place] [address] PCP - General Internal Medicine 02/14/22
--- OUTSIDE RECORDS SUMMARY | 2024-09-15 13:52 | XMS_ITS | Encounter Summary ---
Author Organization [employer] [facility] Address [address] [facility] [address] [place] [address] Care Team Providers Care Wine Cellar Worker Name Role Phone Unavailable Primary Care Provider [...]
--- OUTSIDE RECORDS SUMMARY | 2024-09-15 13:52 | XMS_ITS | Encounter Summary ---
Author Organization [employer] [facility] Address [address] [facility] [address] [place] [address] Care Team Providers Care Assistant Health Educator Name Role Phone Unavailable Primary Care Provider [...]
--- OUTSIDE RECORDS SUMMARY | 2024-09-15 13:52 | XMS_ITS | Clinical Summary ---
Author Organization [employer] Address [address] [facility] [address] [place] [address] Care Team Providers Care Paint Striping Machine Operator Name Role Phone Unavailable Primary Care Provider [...] 5 Years) and At-Risk Patients (6 to 49) Years) Aged Out 10/03/2011 No longer eligible [...]
[2024-09-15 15:34] VITALS: BP 151/101; PULSE 66; RESP 18; TEMP 36.6; O2SAT 100
[2024-09-15 16:08] LABS: Glucose, Whole Blood 52 mg/dL (60-115)
[2024-09-15 16:47] LABS: Glucose, Whole Blood 75 mg/dL (60-115)
[2024-09-15] MEDS: cefuroxime axetiL 250 MG TABLET PO (17:26)
[2024-09-15 17:55] VITALS: BP 150/93; PULSE 66; RESP 18; TEMP 36.6; O2SAT 100
== END 2024-09-15 17:59 | disposition home or self-care (01) ==
PROVIDERS: Physician Assistant Medical; Emergency Provider Emergency Medicine; PCP Internal Medicine
DX: N39.0 Urinary tract infection, site not specified (principal); R13.10 Dysphagia, unspecified; R11.2 Nausea with vomiting, unspecified; K59.00 Constipation, unspecified; R10.13 Epigastric pain; R00.1 Bradycardia, unspecified; Z03.818 Encounter for observation for suspected exposure to other biological agents ruled out; Z79.899 Other long term (current) drug therapy; Z98.84 Bariatric surgery status; Z87.891 Personal history of nicotine dependence
CPT/HCPCS: 0241U; 80048; 80076; 81001; 82947; 83690; 83735; 84484; 85025; 87086; 87088; 87186; 87651; 93005; 99283; 99284

== ENCOUNTER → 2024-09-15 11:17 | Outpatient (BNV) | payer OTHER, SELFPAY | PROVIDERS: Emergency Provider Emergency Medicine; PCP Internal Medicine; Visit Provider Internal Medicine | DX: R00.1 Bradycardia, unspecified (principal); R10.13 Epigastric pain | CPT/HCPCS: 93010 ==

== ENCOUNTER 2024-10-06 06:02 | Emergency (ER) | payer OTHER, SELFPAY ==
--- NOTE | ~2024-10-06 | XR_ITS ---
EXAMINATION: XR CHEST 2 VIEWS HISTORY: chough, sob COMPARISON: Comparison is made with the prior examination dated 07/27/2024. FINDINGS: PA and lateral views of the chest are submitted. The lungs are expanded and clear. There is no pleural effusion, pneumothorax, or pulmonary vascular congestion. The heart is normal in size. The bones are intact. XR/XR chest 2V IMPRESSION: No acute cardiopulmonary abnormality. Electronically signed by: Dinesh Mckeon MD 10/06/2024 08:09 AM EDT
[2024-10-06 06:10] VITALS: BP 151/92; PULSE 84; RESP 18; TEMP 36.8; BMI 22.1
--- OUTSIDE RECORDS SUMMARY | 2024-10-06 06:27 | XMS_ITS | Clinical Summary ---
Author Organization [facility] Address [address] [place] [address] Care Team Providers Care A R Collections Rep Name Role Phone Unavailable Primary Care Provider [...]
--- OUTSIDE RECORDS SUMMARY | 2024-10-06 06:27 | XMS_ITS | Clinical Summary ---
Author Organization [address] [place] [address] Address [address] [place] [address] Phone Care Team Providers Care Hogshead Weigher Name Role Phone Deirdre Cantrell MD Primary Care Provider [phone] Allergies Active Allergy Reactions Criticality Noted Date [...] was performed with the assistance of an [employer] language services litigation secretary, Galile[employer] #[id number]. Ms. Leger states that she was unable to tolerate PT since she is been off pain meds and has not had a recent injection. She was followed by [facility] for pain management receiving [...] is walking, she constantly has to picker / packer her leg. It is occasionally numb. On further questioning, she was previously followed at [facility] and was diagnosed with fibromyalgia and a chronic rheumatoid disorder but she left the practice when she had to change housing. On exam, she is bright and alert, answering the questions directly to the sharples machine operator and some to me in Kosovan. She appears to be in moderate distress. [...] to her treating physician for fibromyalgia at [place] and we will make every effort to figure out who this was and get her to the right people. Immunizations Name Administration Dates Next Due DTaP (Infanrix) 6wks to less than 7yo 10/03/2011 Hepatitis B (Wceodfg-U-Corzm , Recombivax HB-Adult) 19yo and older 09/17/2014,02/26/2014,01/12/2014 [...] LIGATION 2011 PROCEDURE: HISTORICAL TUBAL LIGATION; COMMENT: [facility] GASTRIC BYPASS PROCEDURE: [place] GASTRIC RSTCV W/BYP W/SM INT RCNSTJ LIMIT [...] 09/25/2023 1:11 PM EST Plan of Treatment Health Maintenance Due Date [...] Test (09/25/2023) Annual BMP Blood Test abstracted us Historical Provider HEALTH MAINTENANCE Final Result * Hemoglobin A1c (02/25/2021) Hemoglobin A1C 5.7 <=6.5 % Blood Venous blood specimen / Unknown [facility] Provider LAB BLOOD ORDERABLES Katelyn l Result * (ABNORMAL) Lipid panel (02/25/2021) LDL/HDL Ratio 6(A) 0 - 4 Triglycerides 104 0 - 150 mg/dL Cholesterol 208(A) 0 - 200 mg/dL HDL 36(A) >=40 mg/dL LDL Cholesterol 152(A) 0 - 100 mg/dL Blood Venous blood specimen / Unknown [facility] Provider LAB BLOOD ORDERABLES Katelyn l Result * Cervical Cancer Screening: HPV (05/21/2015) Pathologist [facility] Cervical Cancer Screening: HPV abstracted, no interpretation [facility] Provider HEALTH MAINTENANCE Final Result from Last 3 Months or Most Recently Relevant to Health Maintenance Insurance [facility] [employer] Care Teams Hogshead Weigher Relationship Specialty Start Date End Date Deirdre Cantrell MD [address] [place] [address] Dr [address] [facility] [place], [place] [id number] PCP - General Internal Medicine 02/14/22
[2024-10-06 07:08] LABS: Hematocrit 35.9 % (37.0-47.0); Hemoglobin 12.2 g/dl (12.0-16.0); Mean Corpuscular Hemoglobin 29.1 pg (27.0-33.0); Mean Corpuscular Volume 85.7 fL (80.0-98.0); Mean Platelet Volume 9.7 fL (9.4-12.3); Platelet Count 308 X10*3/uL (160-400); Red Blood Count 4.19 X10*6/uL (4.20-5.50); Red Cell Distribution Width 13.5 % (11.0-16.0); White Blood Count 4.4 X10*3/uL (4.8-10.8)
[2024-10-06 07:15] LABS: IDNOW Serial# 58CA691E; Strep A Nucleic Acid Negative (Negative)
[2024-10-06 07:26] LABS: Alanine Aminotransferase 18 U/L (0-31); Albumin Level 4.2 g/dL (3.5-5.0); Alkaline Phosphatase 83 U/L (39-117); Anion Gap 15 (12-20); Aspartate Amino Transferase 29 U/L (5-31); Bilirubin Total 0.4 mg/dL (0.0-1.0); Blood Urea Nitrogen 12 mg/dL (9-16); Calcium 8.7 mg/dL (8.4-10.2); Carbon Dioxide 23 mmol/L (22-29); Chloride 106 mmol/L (96-108); Creatinine Clr Calc Pharmacy 104.3; Estimated Glomerular Filt Rate > 60; Glucose Random 85 mg/dL (60-115); Potassium 4.1 mmol/L (3.3-5.1); Sodium 140 mmol/L (135-145); Total Protein 7.4 g/dL (6.5-8.0)
--- NOTE | 2024-10-06 07:30 | ED.GENADULT ---
HPI - General Adult General Chief complaint: General Medical Stated complaint: congestion, vomiting, diarrhea, abdominal pain Time Seen by Provider: 10/06/24 07:05 Source: patient Mode of arrival: ambulatory Limitations: no limitations History of Present Illness ED Provider: Dr. Stanley HPI narrative: 43 year old female PMH: Syriac speaking female with history of chronic constipation, s/p gastric bypass at [facility] in Jun 2023, DM, anemia, dysphagia, class D esophagitis with feeding tube recommended, adrenal insufficiency, HTN, GERD, HLD presenting to the ED with complaint of 2-3 days of cough fever body aches. Did get a flu shot this year and initial covid vaccine here with vomiting epigastric pain which is chronic. She also complains of burning with urination. Nown to have chronic pain. Has appointment with Dr. Callaway at [facility] bariatric surgery on in a few days.Patient states the main reason for her visit here today is the fever body aches. Related Data Home Medications ?Medication ?Instructions ?Recorded ?Confirmed triamcinolone acetonide 0.1 % 1 appl topical DAILY 02/07/23 08/25/24 topical cream zolpidem 10 mg tablet 10 mg PO BEDTIME PRN Insomnia 02/07/23 08/25/24 clonazepam 1 mg tablet 1 mg PO TID 08/25/24 08/25/24 Previous Rx's ?Medication ?Instructions ?Recorded BATH CHAIR #1 ea 01/31/22 CANE #1 ea 01/31/22 LIFELINE ALERT SYSTEM #1 ea 01/31/22 WRIST BRACE #1 ea 01/31/22 ALCOHOL PADS #100 ea 02/21/22 SHOWER BAR #1 ea 06/08/22 SHOWER WAND #1 ea 06/08/22 Bed pads #100 ea 07/17/22 Bedside commode #1 ea 07/17/22 SANITARY PADS #100 ea 07/17/22 sumatriptan 5 mg/actuation nasal 5 mg intranasal Q2-4H PRN migraine 03/03/23 spray headache #6 ea prochlorperazine 25 mg rectal 25 mg NV Q12H PRN nausea and 03/16/23 suppository (Compro) vomiting #12 ea cyclobenzaprine 5 mg tablet 5 mg PO Q8H PRN pain (scale score 03/20/23 7-10) 5 days #14 tabs ROLLATOR #1 ea 11/30/23 simethicone 40 mg/0.6 mL oral 0.6 ml PO BID-TID PRN abdominal 08/02/23 drops,suspension distention #15 mL blood pressure monitor (Blood #1 ea 08/06/23 Pressure Kit) bisacodyl 10 mg rectal suppository 10 mg NV DAILY PRN constipation 11/14/23 (Dulcolax (bisacodyl)) #30 ea multivit-minerals no.73-iron 1 cap PO DAILY #30 caps 12/19/23 fumarate 106 mg-folic acid 1 mg capsule sucralfate 100 mg/mL oral 10 ml PO QID #840 mL 01/16/24 suspension (Carafate) fluticasone propionate 50 1 spray intranasal DAILY #100 mL 03/28/24 mcg/actuation nasal spray,suspension (Flonase Allergy Relief) lactulose 10 gram/15 mL (15 mL) 10 g (15 mL) PO DAILY PRN laxative 05/13/24 oral solution effect 5 days #300 mL esomeprazole magnesium 10 mg 20 mg PO BID 90 days #180 ea 05/15/24 granules delayed release for susp ondansetron 4 mg disintegrating 4 mg PO Q6-8H PRN nausea and 07/27/24 tablet vomiting #7 tabs acetaminophen 160 mg/5 mL oral 320 mg (10 mL) PO Q6H PRN fever or 08/25/24 liquid pain #473 mL aluminum-mag hydroxide-simethicone 5 ml PO 5XD PRN indigestion #355 mL 08/25/24 200 mg-200 mg-20 mg/5 mL oral susp (Maalox Advanced) amlodipine 2.5 mg tablet 2.5 mg PO DAILY #30 tabs 08/25/24 blood pressure monitor (Blood #1 ea 08/25/24 Pressure Kit) blood sugar diagnostic (FreeStyle #100 ea 08/25/24 Lite Strips) blood-glucose meter (FreeStyle #1 ea 08/25/24 Lite Meter kit) cyanocobalamin (vitamin B-12) 1,000 mcg PO DAILY #30 caps 08/25/24 1,000 mcg capsule famotidine 20 mg tablet (Pepcid) 20 mg PO BID 10 days #20 tabs 08/25/24 ferrous gluconate 225 mg (27 mg 225 mg PO DAILY #90 tabs 08/25/24 iron) tablet folic acid 1 mg tablet 1 mg PO DAILY #90 tabs 08/25/24 linaclotide 290 mcg capsule 290 mcg PO DAILY #30 caps 08/25/24 (Linzess) naloxone 4 mg/actuation nasal spray 4 mg intranasal Q2M PRN opioid 08/25/24 overdose #2 ea nitrofurantoin 100 mg PO Q12H 7 days #14 caps 08/25/24 monohydrate/macrocrystals 100 mg capsule (Macrobid) polyethylene glycol 3350 17 17 g PO BID #850 grams 08/25/24 gram/dose oral powder (Miralax) Free Style lite glucometer kit #1 ea 09/03/24 food supplemt, lactose-reduced 0.1 1 ea PO TID #1,184 mL 09/08/24 gram-1.18 kcal/mL oral liquid (Ensure Complete) aluminum-mag hydroxide-simethicone 10 ml PO QID PRN indigestion 09/15/24 200 mg-200 mg-20 mg/5 mL oral susp #3,000 mL (Maalox Advanced) cefuroxime axetil 250 mg tablet 250 mg PO BID #13 tabs 09/15/24 tramadol 50 mg tablet 50 mg PO TID PRN pain 30 days #90 09/23/24 tabs cefuroxime axetil 500 mg tablet 500 mg PO BID 7 days #14 tabs 10/06/24 ondansetron 4 mg disintegrating 4 mg PO Q6H #14 tabs 10/06/24 tablet Allergies Allergy/AdvReac Type Severity Reaction Status Date / Time hydrocodone [HYDROCODONE] Allergy Severe RASH, Verified 10/06/24 06:19 AIRWAY CLOSES ibuprofen [From MOTRIN] Allergy Intermediate STOMACH Verified 10/06/24 06:19 UPSET, vomiting trazodone [TRAZODONE] Allergy Intermediate stomach Verified 10/06/24 06:19 upset/anxiety tomato [TOMATO] Allergy Mild HIVES Verified 10/06/24 06:19 DIFFICULTY BREATHING egg Allergy Swelling Verified 10/06/24 06:19 black pepper [BLACK PEPPER] AdvReac Severe DIFFICULTY Verified 10/06/24 06:19 BREATHING, hives lisinopril AdvReac Severe Anaphylaxis Verified 10/06/24 06:19 Review of Systems Review of Systems: Review of systems: General: fever chills no recent illness or falls Musculoskeletal: body achesDenies back pain or or other injuries HEENT: denies headache, runny nose, ear pain Respiratory: denies shortness of breath, cough Cardiovascular: no chest pain or palpitations : dysuria, frequency Abdomen: nausea vomiting epigastric abdominal pain Extremities: no swelling, no pain Skin: no diaphoresis Yes all other systems are reviewed and are negative [facility] Past Medical History Medical History Type 2 diabetes mellitus with hyperglycemia Vision changes Gastritis Tongue sore Right ear pain Numbness of left hand History of bipolar disorder History of schizophrenia 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 Spondylosis of lumbar spine Diverticulosis Insomnia Vitamin D deficiency GERD (gastroesophageal reflux disease) Carpal tunnel syndrome Hypercholesterolemia Renal calculi Hypertension Alcohol abuse Anxiety and depression Surgical History History of esophagogastroduodenoscopy (EGD) Hx of colonoscopy Hx of bariatric surgery History of tubal ligation H/O: hysterectomy Family History Family History Father Medical history unknown Mother Medical history unknown Paternal Aunt Uterine cancer Diabetes Hypertension Paternal Uncle Liver cancer Heart attack Lung cancer Maternal Aunt Stroke Family/Other Chronic mental illness Sister Uterine cancer Schizophrenia Brother Substance abuse Paternal Grandmother Lung cancer Other Mental health disorder Social History Social History Household Members: None Housing: Apartment Do you presently have visiting nurse or other home services: Yes Alcohol intake: current Alcohol intake frequency: holidays/special occasions only Alcohol type: beer Patient Tobacco Use Status: Former Tobacco user Tobacco use type: Cigarette Cigarette Packs Per Day: 0.25 Cigarettes Per Day: 1 e-Cigarette/Vaping Use: Never Used Second Hand Smoke Exposure: Yes Substance Use Type: Marijuana Advance Directives: No Advance Directives Information Provided: Yes service: No Current occupational status: disabled Current occupational exposures/hazards: No Cognitive needs: No Hearing needs: No Vision needs: Yes Physical Exam ED Vital Signs: Vital Signs - 24 hr 10/06/24 06:10 Temperature 98.3 F Pulse Rate 84 Respiratory Rate 18 Blood Pressure 151/92 H BMI result Body Mass Index 22.1 General: Well-appearing well-nourished in no signs of distress HEENT: Normocephalic atraumatic Neck: No signs of JVD, no masses no tenderness or lymphadenopathy Cardiovascular: Regular rate and rhythm Respiratory: Clear to auscultation bilaterally Abdomen: Soft nontender no masses Extremities: Normal pedal pulses no signs of edema Skin: Dry warm no rashes Back: No tenderness full ROM Course Course Course Narrative: Patient has a negative x-ray urine did grow out E coli last time the patient was here you went to the equivocal urine I will treat the patient again this time I do feel comfortable discharging the patient home with Zofran and follow up with her surgeon next week. Medications Administered Generic Name Dose Route Start Last Admin Trade Name Freq PRN Reason Stop Dose Admin Sodium Chloride 1,000 mls @ 999 mls/hr 10/06/24 07:30 10/06/24 07:59 Ns IV 10/06/24 08:30 999 mls/hr .Q1H1M OSBALDO Administration Discontinued Medications Generic Name Dose Route Start Last Admin Trade Name Freq PRN Reason Stop Dose Admin Ondansetron HCl 4 mg 10/06/24 07:29 10/06/24 07:59 Ondansetron Hcl 4 Mg/2 Ml Vial IVPUSH 10/06/24 07:30 4 mg ONCE ONE Administration Medical Decision Making Medical Decision Making [facility] Narrative: Patient looks well has normal vitals I will treat with some Zofran fluids I do a p.o. trial reassess. Differential Diagnosis Differential Diagnoses: The differential diagnosis associated with the presentation includes I do feel the abdominal pain vomiting dysuria chronic symptoms I will check do not the patient's the we will give the patient some Zofran the vomiting towards her fever and body aches does sound like an upper respiratory infection I will swab for COVID flu RSV Lab Data [facility] Lab Attestation statement: I reviewed the patient's lab results. 10/06/24 06:46 10/06/24 02:23 Labs: Lab Results 10/06/24 10/06/24 10/06/24 Range/Units 02:23 06:46 07:39 WBC 4.4 L (4.8-10.8) X10*3/uL RBC 4.19 L (4.20-5.50) X10*6/uL Hgb 12.2 (12.0-16.0) g/dl Hct 35.9 L (37.0-47.0) % MCV 85.7 (80.0-98.0) fL MCH 29.1 (27.0-33.0) pg MCHC 34.0 (31.0-35.0) g/dl RDW 13.5 (11.0-16.0) % Plt Count 308 (160-400) X10*3/uL MPV 9.7 (9.4-12.3) fL Absolute Nucleated RBC 0.000 (0.0-0.012) X10*3/uL Nucleated RBC % (auto) 0.0 (0.0-0.2) /100WBC Sodium 140 (135-145) mmol/L Potassium 4.1 (3.3-5.1) mmol/L Chloride 106 (96-108) mmol/L Carbon Dioxide 23 (22-29) mmol/L Anion Gap 15 (12-20) BUN 12 (9-16) mg/dL Creatinine 0.55 (0.5-1.4) mg/dL Estim Creat Clear Calc 104.3 Estimated GFR > 60 Random Glucose 85 (60-115) mg/dL Calcium 8.7 (8.4-10.2) mg/dL Total Bilirubin 0.4 (0.0-1.0) mg/dL AST 29 (5-31) U/L ALT 18 (0-31) U/L Alkaline Phosphatase 83 (39-117) U/L Total Protein 7.4 (6.5-8.0) g/dL Albumin 4.2 (3.5-5.0) g/dL Urine Color Yellow Urine Appearance Cloudy Urine pH 8.0 (5.0-9.0) Ur Specific Jackson 1.025 (1.005-1.025) Urine Protein 30 (1+) H (Neg-Trace) mg/dL Urine Glucose (UA) Negative (Negative) mg/dL Urine Ketones Negative (Negative) mg/dL Urine Blood Negative (Negative) Urine Nitrite Positive H (Negative) Ur Leukocyte Esterase Trace H (Negative) Urine RBC 0-2 (0-2) /HPF Urine WBC 6-10 (0-5) /HPF Ur Squamous Epith Cells 6-10 (0-2) /HPF Urine Bacteria 4+ (None Seen) Hyaline Casts 0-2 (0-2) /LPF Influenza Type A (PCR) NEGATIVE (Negative) Influenza Type B (PCR) NEGATIVE (Negative) RSV RNA Qual (PCR) NEGATIVE (Negative) SARS-CoV-2 RNA (RT-PCR) NEGATIVE (Negative) S. pyogenes GrpA BRIDGER Negative (Negative) Discharge Plan Discharge Clinical Impression: Epigastric abdominal pain, Persistent recurrent vomiting, Acute sore throat, Cough Patient Disposition: Home, Self-Care Instructions: Pharyngitis (ED), Upper Respiratory Infection (DC), Acute Nausea and Vomiting (ED), Abdominal Pain (ED) Additional Instructions: You were seen today for cough fever sore throat as well as your chronic nausea and abdominal pain. You need to follow up with your surgeon for your abdominal pain and nausea. Your swabs and XR were negative. If you have any other concerns please return to the ER. Prescriptions: New cefuroxime axetil 500 mg tablet 500 mg PO BID 7 Days Qty: 14 0RF ondansetron 4 mg tablet,disintegrating 4 mg PO Q6H Qty: 14 0RF No Action (DME) CANE See Rx Instructions .Route .MEDSUPPLY Qty: 1 0RF Rx Instructions: As directed (DME) WRIST BRACE See Rx Instructions .Route .MEDSUPPLY Qty: 1 0RF Rx Instructions: As directed (DME) BATH CHAIR See Rx Instructions .Route .MEDSUPPLY Qty: 1 0RF Rx Instructions: As directed (DME) LIFELINE ALERT SYSTEM See Rx Instructions .Route .MEDSUPPLY Qty: 1 0RF Rx Instructions: As directed (DME) ALCOHOL PADS See Rx Instructions .Route .MEDSUPPLY Qty: 100 3RF Rx Instructions: As directed (DME) SHOWER WAND See Rx Instructions .Route .MEDSUPPLY Qty: 1 0RF Rx Instructions: As directed (DME) SHOWER BAR See Rx Instructions .Route .MEDSUPPLY Qty: 1 0RF Rx Instructions: As directed (DME) Bedside commode See Rx Instructions .Route .MEDSUPPLY Qty: 1 0RF Rx Instructions: As directed (DME) Bed pads See Rx Instructions .Route .MEDSUPPLY Qty: 100 12RF Rx Instructions: As directed (DME) SANITARY PADS See Rx Instructions .Route .MEDSUPPLY Qty: 100 12RF Rx Instructions: As directed (DME) ROLLATOR See Rx Instructions .Route .MEDSUPPLY Qty: 1 0RF Rx Instructions: As directed simethicone 40 mg/0.6 mL drops,suspension 0.6 ml PO BID-TID PRN (Reason: abdominal distention) Qty: 15 0RF (DME) blood pressure monitor [Blood Pressure Kit] Kit See Rx Instructions .Route Qty: 1 0RF Rx Instructions: As directed -mins no.73-iron fum-folic 106 mg iron- 1 mg capsule 1 cap PO DAILY Qty: 30 4RF sucralfate [Carafate] 100 mg/mL suspension 10 ml PO QID Qty: 840 1RF fluticasone propionate [Flonase Allergy Relief] 50 mcg/actuation spray,suspension 1 spray intranasal DAILY Qty: 100 2RF Rx Instructions: administer into each nostril ferrous gluconate 225 mg (27 mg iron) tablet 225 mg PO DAILY Qty: 90 0RF folic acid 1 mg tablet 1 mg PO DAILY Qty: 90 0RF cyanocobalamin (vitamin B-12) 1,000 mcg capsule 1,000 mcg PO DAILY Qty: 30 3RF nitrofurantoin monohyd/m-cryst [Macrobid] 100 mg capsule 100 mg PO Q12H 7 Days Qty: 14 0RF Rx Instructions: must administer with a meal/food (DME) Free Style lite glucometer kit See Rx Instructions .Route .MEDSUPPLY Qty: 1 0RF Rx Instructions: As directed Ensure Complete 0.1 gram- 1.18 kcal/mL liquid 1 ea PO TID Qty: 1184 12RF tramadol 50 mg tablet 50 mg PO TID PRN (Reason: pain) 30 Days Qty: 90 0RF sumatriptan 5 mg/actuation spray,non-aerosol 5 mg intranasal Q2-4H PRN (Reason: migraine headache) Qty: 6 1RF Rx Instructions: into each nostril once; if headache remains, may repeat total dose once after at least 2 hours cyclobenzaprine 5 mg tablet 5 mg PO Q8H PRN (Reason: pain (scale score 7-10)) 5 Days Qty: 14 0RF lactulose 10 gram/15 mL (15 mL) solution 10 g PO DAILY PRN (Reason: laxative effect) 5 Days Qty: 300 0RF prochlorperazine [Compro] 25 mg suppository 25 mg NV Q12H PRN (Reason: nausea and vomiting) Qty: 12 0RF esomeprazole magnesium [address] for susp in packet 20 mg PO BID 90 Days Qty: 180 0RF Rx Instructions: Mix in applesauce or pudding ondansetron 4 mg tablet,disintegrating 4 mg PO Q6-8H PRN (Reason: nausea and vomiting) Qty: 7 0RF cefuroxime axetil 250 mg tablet 250 mg PO BID Qty: 13 0RF alum-mag hydroxide-simeth [Maalox Advanced] 200-200-20 mg/5 mL suspension 10 ml PO QID PRN (Reason: indigestion) Qty: 3000 0RF Rx Instructions: administer between meals and at bedtime clonazepam 1 mg tablet 1 mg PO TID Rx Instructions: [facility] bisacodyl [Dulcolax (bisacodyl)] 10 mg suppository 10 mg NV DAILY PRN (Reason: constipation) Qty: 30 0RF acetaminophen 160 mg/5 mL liquid 320 mg PO Q6H PRN (Reason: fever or pain) Qty: 473 0RF alum-mag hydroxide-simeth [Maalox Advanced] 200-200-20 mg/5 mL suspension 5 ml PO 5XD PRN (Reason: indigestion) Qty: 355 4RF Rx Instructions: administer between meals and at bedtime famotidine [Pepcid] 20 mg tablet 20 mg PO BID 10 Days Qty: 20 0RF Linzess 290 mcg capsule 290 mcg PO DAILY Qty: 30 1RF naloxone 4 mg/actuation spray,non-aerosol 4 mg intranasal Q2M PRN (Reason: opioid overdose) Qty: 2 0RF Rx Instructions: spray 1 dose into ONE nostril; alternate nostrils w each dose until help arrives polyethylene glycol 3350 [Miralax] 17 gram/dose powder 17 g PO BID Qty: 850 0RF (DME) FreeStyle Lite Strips Strip See Rx Instructions .ROUTE .MEDSUPPLY Qty: 100 3RF Rx Instructions: use daily As directed to check blood sugars for diabetes (DME) blood-glucose meter [FreeStyle Lite Meter] Kit See Rx Instructions .ROUTE .MEDSUPPLY Qty: 1 0RF Rx Instructions: Use daily As directed to check blood glucose (DME) blood pressure monitor [Blood Pressure Kit] Kit See Rx Instructions .ROUTE .MEDSUPPLY Qty: 1 0RF Rx Instructions: As directed amlodipine 2.5 mg tablet 2.5 mg PO DAILY Qty: 30 3RF zolpidem 10 mg tablet 10 mg PO BEDTIME PRN (Reason: Insomnia) triamcinolone acetonide 0.1 % cream 1 appl topical DAILY Print Language: Syriac
[2024-10-06 07:46] LABS: Appearance Urine Cloudy; Color Urine Yellow; Glucose Urine UA Negative (Negative); Leukocyte Esterase Urine Trace (Negative); Nitrite Urine Positive (Negative); Specific Gravity - Urine 1.025 (1.005-1.025); UMIC TRIGGER UACC YES; Urine Blood Negative (Negative); Urine Ketones Negative (Negative); Urine Protein 30 (1+) mg/dL (Neg-Trace)
[2024-10-06 07:58] LABS: Bacteria Urine 4+ (None Seen); Hyaline Casts Urine 0-2 /LPF (0-2); RBC Urine 0-2 /HPF (0-2); UACC Culture Trigger YES
[2024-10-06] MEDS: ondansetron HCL 4 MG/2 ML VIAL IVPUSH (07:59)
[2024-10-06] MEDS: 0.9 % Sodium Chloride 1,000 ML 999 ML IV (07:59)
[2024-10-06 08:06] LABS: Influenza A PCR NEGATIVE (Negative); Influenza B PCR NEGATIVE (Negative); Resp Syncy Virus RNA Qual PCR NEGATIVE (Negative); SARS COV2 PCR INHOUSE NEGATIVE (Negative)
[2024-10-06] MEDS: cefuroxime axetiL 500 MG TABLET PO (09:58)
[2024-10-06 11:28] VITALS: BP 129/62; PULSE 72; RESP 20; TEMP 36.6; O2SAT 99
== END 2024-10-06 11:29 | disposition home or self-care (01) ==
PROVIDERS: Emergency Provider Student in an Organized Health Care Education/Training Program; PCP Internal Medicine
DX: R10.13 Epigastric pain (principal); R11.15 Cyclical vomiting syndrome unrelated to migraine; J02.9 Acute pharyngitis, unspecified; R05.9 Cough, unspecified; E11.9 Type 2 diabetes mellitus without complications; I10 Essential (primary) hypertension; E78.5 Hyperlipidemia, unspecified; Z03.818 Encounter for observation for suspected exposure to other biological agents ruled out
CPT/HCPCS: 0241U; 71046; 80053; 81001; 85027; 87086; 87088; 87186; 87651; 96361; 96374; 99283; 99284; J2405

== ENCOUNTER → 2024-10-06 06:55 | Outpatient (BNV) | payer OTHER, SELFPAY | PROVIDERS: Emergency Provider Student in an Organized Health Care Education/Training Program; PCP Internal Medicine; Visit Provider Radiology Diagnostic Radiology | DX: R05.9 Cough, unspecified (principal); R06.02 Shortness of breath | CPT/HCPCS: 71046 ==

== ENCOUNTER 2024-12-08 12:47 | Emergency (ER) | payer OTHER, SELFPAY ==
[2024-12-08 12:56] VITALS: BP 153/108; PULSE 85; RESP 18; TEMP 36.5; O2SAT 100; BMI 21.5
--- NOTE | 2024-12-08 13:04 | ED_ITS ---
HPI - General Adult General Chief complaint: Abdominal Pain Stated complaint: Stomach Pain Time Seen by Provider: 12/08/24 14:01 Source: patient Mode of arrival: ambulatory Limitations: no limitations History of Present Illness ED Provider: Dr. Stanley HPI narrative: 44 year old female with frequent visits and complications status post gastric bypass is supposed to follow up with GI but states her appointment is too delayed. Hungarian speaking female with history of chronic constipation, s/p gastric bypass at [facility] in Jun 2023, DM, anemia, dysphagia, class D esophagitis with feeding tube recommended, adrenal insufficiency, HTN, GERD, HLD. She states she can't drink fluids. She is concerned has had dilation in the past Related Data Home Medications ?Medication ?Instructions ?Recorded ?Confirmed triamcinolone acetonide 0.1 % 1 appl topical DAILY 02/07/23 08/25/24 topical cream zolpidem 10 mg tablet 10 mg PO BEDTIME PRN Insomnia 02/07/23 08/25/24 clonazepam 1 mg tablet 1 mg PO TID 08/25/24 08/25/24 Previous Rx's ?Medication ?Instructions ?Recorded BATH CHAIR #1 ea 01/31/22 CANE #1 ea 01/31/22 LIFELINE ALERT SYSTEM #1 ea 01/31/22 WRIST BRACE #1 ea 01/31/22 ALCOHOL PADS #100 ea 02/21/22 SHOWER BAR #1 ea 06/08/22 SHOWER WAND #1 ea 06/08/22 Bed pads #100 ea 07/17/22 Bedside commode #1 ea 07/17/22 SANITARY PADS #100 ea 07/17/22 sumatriptan 5 mg/actuation nasal 5 mg intranasal Q2-4H PRN migraine 03/03/23 spray headache #6 ea prochlorperazine 25 mg rectal 25 mg WI Q12H PRN nausea and 03/16/23 suppository (Compro) vomiting #12 ea cyclobenzaprine 5 mg tablet 5 mg PO Q8H PRN pain (scale score 03/20/23 7-10) 5 days #14 tabs ROLLATOR #1 ea 06/28/23 simethicone 40 mg/0.6 mL oral 0.6 ml PO BID-TID PRN abdominal 08/02/23 drops,suspension distention #15 mL blood pressure monitor (Blood #1 ea 08/06/23 Pressure Kit) bisacodyl 10 mg rectal suppository 10 mg WI DAILY PRN constipation 11/14/23 (Dulcolax (bisacodyl)) #30 ea multivit-minerals no.73-iron 1 cap PO DAILY #30 caps 12/19/23 fumarate 106 mg-folic acid 1 mg capsule sucralfate 100 mg/mL oral 10 ml PO QID #840 mL 01/16/24 suspension (Carafate) fluticasone propionate 50 1 spray intranasal DAILY #100 mL 03/28/24 mcg/actuation nasal spray,suspension (Flonase Allergy Relief) lactulose 10 gram/15 mL (15 mL) 10 g (15 mL) PO DAILY PRN laxative 05/13/24 oral solution effect 5 days #300 mL esomeprazole magnesium 10 mg 20 mg PO BID 90 days #180 ea 05/15/24 granules delayed release for susp ondansetron 4 mg disintegrating 4 mg PO Q6-8H PRN nausea and 07/27/24 tablet vomiting #7 tabs acetaminophen 160 mg/5 mL oral 320 mg (10 mL) PO Q6H PRN fever or 08/25/24 liquid pain #473 mL aluminum-mag hydroxide-simethicone 5 ml PO 5XD PRN indigestion #355 mL 08/25/24 200 mg-200 mg-20 mg/5 mL oral susp (Maalox Advanced) blood pressure monitor (Blood #1 ea 08/25/24 Pressure Kit) blood sugar diagnostic (FreeStyle #100 ea 08/25/24 Lite Strips) blood-glucose meter (FreeStyle #1 ea 08/25/24 Lite Meter kit) cyanocobalamin (vitamin B-12) 1,000 mcg PO DAILY #30 caps 08/25/24 1,000 mcg capsule famotidine 20 mg tablet (Pepcid) 20 mg PO BID 10 days #20 tabs 08/25/24 ferrous gluconate 225 mg (27 mg 225 mg PO DAILY #90 tabs 08/25/24 iron) tablet folic acid 1 mg tablet 1 mg PO DAILY #90 tabs 08/25/24 linaclotide 290 mcg capsule 290 mcg PO DAILY #30 caps 08/25/24 (Linzess) naloxone 4 mg/actuation nasal spray 4 mg intranasal Q2M PRN opioid 08/25/24 overdose #2 ea nitrofurantoin 100 mg PO Q12H 7 days #14 caps 08/25/24 monohydrate/macrocrystals 100 mg capsule (Macrobid) polyethylene glycol 3350 17 17 g PO BID #850 grams 08/25/24 gram/dose oral powder (Miralax) Free Style lite glucometer kit #1 ea 09/03/24 food supplemt, lactose-reduced 0.1 1 ea PO TID #1,184 mL 09/08/24 gram-1.18 kcal/mL oral liquid (Ensure Complete) aluminum-mag hydroxide-simethicone 10 ml PO QID PRN indigestion 09/15/24 200 mg-200 mg-20 mg/5 mL oral susp #3,000 mL (Maalox Advanced) cefuroxime axetil 250 mg tablet 250 mg PO BID #13 tabs 09/15/24 cefuroxime axetil 500 mg tablet 500 mg PO BID 7 days #14 tabs 10/06/24 ondansetron 4 mg disintegrating 4 mg PO Q6H #14 tabs 10/06/24 tablet tramadol 50 mg tablet 50 mg PO TID PRN pain 30 days #90 11/17/24 tabs amlodipine 2.5 mg tablet 2.5 mg PO DAILY #30 tabs 11/20/24 Allergies Allergy/AdvReac Type Severity Reaction Status Date / Time hydrocodone [HYDROCODONE] Allergy Severe RASH, Verified 12/08/24 12:57 AIRWAY CLOSES ibuprofen [From MOTRIN] Allergy Intermediate STOMACH Verified 12/08/24 12:57 UPSET, vomiting trazodone [TRAZODONE] Allergy Intermediate stomach Verified 12/08/24 12:57 upset/anxiety tomato [TOMATO] Allergy Mild HIVES Verified 12/08/24 12:57 DIFFICULTY BREATHING egg Allergy Swelling Verified 12/08/24 12:57 black pepper [BLACK PEPPER] AdvReac Severe DIFFICULTY Verified 12/08/24 12:57 BREATHING, hives lisinopril AdvReac Severe Anaphylaxis Verified 12/08/24 12:57 Review of Systems 2 Review of Systems: Review of systems: General: Patient denies any fever chills recent illness or falls Musculoskeletal: Denies back pain or body aches or other injuries HEENT: denies headache, runny nose, ear pain Respiratory: denies shortness of breath, cough Cardiovascular: no chest pain or palpitations : denies dysuria, frequency Abdomen: no nausea vomiting she has chronic abdominal pain Extremities: no swelling, no pain Skin: no diaphoresis Yes all other systems are reviewed and are negative [facility] Past Medical History Medical History Type 2 diabetes mellitus with hyperglycemia Vision changes Gastritis Tongue sore Right ear pain Numbness of left hand History of bipolar disorder History of schizophrenia 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 Spondylosis of lumbar spine Diverticulosis Insomnia Vitamin D deficiency GERD (gastroesophageal reflux disease) Carpal tunnel syndrome Hypercholesterolemia Renal calculi Hypertension Alcohol abuse Anxiety and depression Surgical History History of esophagogastroduodenoscopy (EGD) Hx of colonoscopy Hx of bariatric surgery History of tubal ligation H/O: hysterectomy Family History Family History Father Medical history unknown Mother Medical history unknown Paternal Aunt Uterine cancer Diabetes Hypertension Paternal Uncle Liver cancer Heart attack Lung cancer Maternal Aunt Stroke Family/Other Chronic mental illness Sister Uterine cancer Schizophrenia Brother Substance abuse Paternal Grandmother Lung cancer Other Mental health disorder Social History Social History Household Members: None Housing: Apartment Do you presently have visiting nurse or other home services: Yes Alcohol intake: current Alcohol intake frequency: holidays/special occasions only Alcohol type: beer Patient Tobacco Use Status: Former Tobacco user Tobacco use type: Cigarette Cigarette Packs Per Day: 0.25 Cigarettes Per Day: 1 e-Cigarette/Vaping Use: Never Used Second Hand Smoke Exposure: Yes Substance Use Type: Marijuana Advance Directives: No Advance Directives Information Provided: Yes Do you have a plan to hurt others: No Plan service: No Current occupational status: disabled Current occupational exposures/hazards: No Cognitive needs: No Hearing needs: No Vision needs: Yes Physical Exam ED Vital Signs: Vital Signs - 24 hr 12/08/24 12:56 Temperature 97.7 F Pulse Rate 85 Respiratory Rate 18 Blood Pressure 153/108 H Pulse Oximetry 100 Oxygen Delivery Method Room Air BMI result Body Mass Index 21.5 General: Well-appearing well-nourished in no signs of distress HEENT: Normocephalic atraumatic Neck: No signs of JVD, no masses no tenderness or lymphadenopathy Cardiovascular: Regular rate and rhythm Respiratory: Clear to auscultation bilaterally Abdomen: Soft nontender no masses Extremities: Normal pedal pulses no signs of edema Skin: Dry warm no rashes Back: No tenderness full ROM Course Course Course Narrative: RME, this is a rapid medical exam performed by Jaime Gannon please refer to primary provider for complete H&P- 44 year old female presents for evaluation of upper abdominal pain. She is status post gastric bypass surgery. Plan for labs, UA, will defer any potential advanced imaging to primary er provider Reevaluation(s) Reevaluation #1: patient labs are all normal there is no signs of dehydration she is understanding of the scared is going to call her surgeon tomorrow after I explained all the labs we will follow up in the morning Time: 14:25 Medical Decision Making Medical Decision Making [facility] Narrative: I will recheck labs the patient has been recommended get a feeding tube in the past I will defer to her treating surgeon I do not think there is any urgent need for imaging at this time patient is very understandable with her normal labs and need to follow up she will call her surgeon as well as GI to see if there is any way she get in sooner. Differential Diagnosis Differential Diagnoses: The differential diagnosis associated with the presentation includes abdominal pain chronic issues post operatively, dehydration electrolyte derangement Admission/Observation Consideration of admission/observation: Escalation of care including admission/observation considered Lab Data [facility] Lab Attestation statement: I reviewed the patient's lab results. 12/08/24 13:43 12/08/24 13:43 Labs: Lab Results 12/08/24 Range/Units 13:43 WBC 6.6 (4.8-10.8) X10*3/uL RBC 4.27 (4.20-5.50) X10*6/uL Hgb 12.4 (12.0-16.0) g/dl Hct 37.2 (37.0-47.0) % MCV 87.1 (80.0-98.0) fL MCH 29.0 (27.0-33.0) pg MCHC 33.3 (31.0-35.0) g/dl RDW 16.4 H (11.0-16.0) % Plt Count 328 (160-400) X10*3/uL MPV 9.2 L (9.4-12.3) fL Immature Gran % (Auto) 0.3 (0.0-0.4) % Neut % (Auto) 72.1 (45-73) % Lymph % (Auto) 18.0 L (20-40) % Ellis % (Auto) 7.1 (2-11) % Eos % (Auto) 1.4 (0-4) % Baso % (Auto) 1.1 (0-2) % Lymph # (Auto) 1.2 (1.2-4.9) X10*3/uL Ellis # (Auto) 0.5 (0.1-1.2) X10*3/uL Eos # (Auto) 0.1 (0.0-0.4) X10*3/uL Baso # (Auto) 0.1 (0.0-0.2) X10*3/uL Abs Immat Gran (auto) 0.02 (0.00-0.03) X10*3/uL Absolute Neuts (auto) 4.8 (2.0-8.3) x10*3/uL Absolute Nucleated RBC 0.000 (0.0-0.012) X10*3/uL Nucleated RBC % (auto) 0.0 (0.0-0.2) /100WBC Sodium 140 (135-145) mmol/L Potassium 3.8 (3.3-5.1) mmol/L Chloride 103 (96-108) mmol/L Carbon Dioxide 27 (22-29) mmol/L Anion Gap 14 (12-20) BUN 11 (9-16) mg/dL Creatinine 0.60 (0.5-1.4) mg/dL Estim Creat Clear Calc 94.6 Estimated GFR > 60 Random Glucose 84 (60-115) mg/dL Calcium 8.9 (8.4-10.2) mg/dL Total Bilirubin 0.5 (0.0-1.0) mg/dL AST 38 H (5-31) U/L ALT 25 (0-31) U/L Alkaline Phosphatase 68 (39-117) U/L Total Protein 7.1 (6.5-8.0) g/dL Albumin 4.5 (3.5-5.0) g/dL Lipase 10 (8-78) U/L Beta HCG, Quant < 2 mIU/mL External Record Review External record reviewed: Inpatient record and Office record Discharge Plan Discharge Clinical Impression: Esophageal abnormality Patient Disposition: Home, Self-Care Instructions: Upper Endoscopy (DC) Additional Instructions: You have chronic esophagitis with vomiting. You had labs done which were all normal Please call to follow up with your doctor. Prescriptions: No Action (DME) CANE See Rx Instructions .Route .MEDSUPPLY Qty: 1 0RF Rx Instructions: As directed (DME) WRIST BRACE See Rx Instructions .Route .MEDSUPPLY Qty: 1 0RF Rx Instructions: As directed (DME) BATH CHAIR See Rx Instructions .Route .MEDSUPPLY Qty: 1 0RF Rx Instructions: As directed (DME) LIFELINE ALERT SYSTEM See Rx Instructions .Route .MEDSUPPLY Qty: 1 0RF Rx Instructions: As directed (DME) ALCOHOL PADS See Rx Instructions .Route .MEDSUPPLY Qty: 100 3RF Rx Instructions: As directed (DME) SHOWER WAND See Rx Instructions .Route .MEDSUPPLY Qty: 1 0RF Rx Instructions: As directed (DME) SHOWER BAR See Rx Instructions .Route .MEDSUPPLY Qty: 1 0RF Rx Instructions: As directed (DME) Bedside commode See Rx Instructions .Route .MEDSUPPLY Qty: 1 0RF Rx Instructions: As directed (DME) Bed pads See Rx Instructions .Route .MEDSUPPLY Qty: 100 12RF Rx Instructions: As directed (DME) SANITARY PADS See Rx Instructions .Route .MEDSUPPLY Qty: 100 12RF Rx Instructions: As directed (DME) ROLLATOR See Rx Instructions .Route .MEDSUPPLY Qty: 1 0RF Rx Instructions: As directed simethicone 40 mg/0.6 mL drops,suspension 0.6 ml PO BID-TID PRN (Reason: abdominal distention) Qty: 15 0RF (DME) blood pressure monitor [Blood Pressure Kit] Kit See Rx Instructions .Route Qty: 1 0RF Rx Instructions: As directed mv-mins no.73-iron fum-folic 106 mg iron- 1 mg capsule 1 cap PO DAILY Qty: 30 4RF sucralfate [Carafate] 100 mg/mL suspension 10 ml PO QID Qty: 840 1RF fluticasone propionate [Flonase Allergy Relief] 50 mcg/actuation spray,suspension 1 spray intranasal DAILY Qty: 100 2RF Rx Instructions: administer into each nostril ferrous gluconate 225 mg (27 mg iron) tablet 225 mg PO DAILY Qty: 90 0RF folic acid 1 mg tablet 1 mg PO DAILY Qty: 90 0RF cyanocobalamin (vitamin B-12) 1,000 mcg capsule 1,000 mcg PO DAILY Qty: 30 3RF nitrofurantoin monohyd/m-cryst [Macrobid] 100 mg capsule 100 mg PO Q12H 7 Days Qty: 14 0RF Rx Instructions: must administer with a meal/food (DME) Free Style lite glucometer kit See Rx Instructions .Route .MEDSUPPLY Qty: 1 0RF Rx Instructions: As directed Ensure Complete 0.1 gram- 1.18 kcal/mL liquid 1 ea PO TID Qty: 1184 12RF tramadol 50 mg tablet 50 mg PO TID PRN (Reason: pain) 30 Days Qty: 90 0RF amlodipine 2.5 mg tablet 2.5 mg PO DAILY Qty: 30 1RF sumatriptan 5 mg/actuation spray,non-aerosol 5 mg intranasal Q2-4H PRN (Reason: migraine headache) Qty: 6 1RF Rx Instructions: into each nostril once; if headache remains, may repeat total dose once after at least 2 hours cyclobenzaprine 5 mg tablet 5 mg PO Q8H PRN (Reason: pain (scale score 7-10)) 5 Days Qty: 14 0RF lactulose 10 gram/15 mL (15 mL) solution 10 g PO DAILY PRN (Reason: laxative effect) 5 Days Qty: 300 0RF cefuroxime axetil 500 mg tablet 500 mg PO BID 7 Days Qty: 14 0RF ondansetron 4 mg tablet,disintegrating 4 mg PO Q6H Qty: 14 0RF prochlorperazine [Compro] 25 mg suppository 25 mg WI Q12H PRN (Reason: nausea and vomiting) Qty: 12 0RF esomeprazole magnesium [address] for susp in packet 20 mg PO BID 90 Days Qty: 180 0RF Rx Instructions: Mix in applesauce or pudding ondansetron 4 mg tablet,disintegrating 4 mg PO Q6-8H PRN (Reason: nausea and vomiting) Qty: 7 0RF cefuroxime axetil 250 mg tablet 250 mg PO BID Qty: 13 0RF alum-mag hydroxide-simeth [Maalox Advanced] 200-200-20 mg/5 mL suspension 10 ml PO QID PRN (Reason: indigestion) Qty: 3000 0RF Rx Instructions: administer between meals and at bedtime clonazepam 1 mg tablet 1 mg PO TID Rx Instructions: [facility] bisacodyl [Dulcolax (bisacodyl)] 10 mg suppository 10 mg WI DAILY PRN (Reason: constipation) Qty: 30 0RF acetaminophen 160 mg/5 mL liquid 320 mg PO Q6H PRN (Reason: fever or pain) Qty: 473 0RF alum-mag hydroxide-simeth [Maalox Advanced] 200-200-20 mg/5 mL suspension 5 ml PO 5XD PRN (Reason: indigestion) Qty: 355 4RF Rx Instructions: administer between meals and at bedtime famotidine [Pepcid] 20 mg tablet 20 mg PO BID 10 Days Qty: 20 0RF Linzess 290 mcg capsule 290 mcg PO DAILY Qty: 30 1RF naloxone 4 mg/actuation spray,non-aerosol 4 mg intranasal Q2M PRN (Reason: opioid overdose) Qty: 2 0RF Rx Instructions: spray 1 dose into ONE nostril; alternate nostrils w each dose until help arrives polyethylene glycol 3350 [Miralax] 17 gram/dose powder 17 g PO BID Qty: 850 0RF (DME) FreeStyle Lite Strips Strip See Rx Instructions .ROUTE .MEDSUPPLY Qty: 100 3RF Rx Instructions: use daily As directed to check blood sugars for diabetes (DME) blood-glucose meter [FreeStyle Lite Meter] Kit See Rx Instructions .ROUTE .MEDSUPPLY Qty: 1 0RF Rx Instructions: Use daily As directed to check blood glucose (DME) blood pressure monitor [Blood Pressure Kit] Kit See Rx Instructions .ROUTE .MEDSUPPLY Qty: 1 0RF Rx Instructions: As directed zolpidem 10 mg tablet 10 mg PO BEDTIME PRN (Reason: Insomnia) triamcinolone acetonide 0.1 % cream 1 appl topical DAILY Print Language: Hungarian
--- NOTE | 2024-12-08 13:05 | ECG_ITS ---
Test Reason : pain Blood Pressure : */* mmHG Vent. Rate : 72 BPM Atrial Rate : 72 BPM P-R Int : 144 ms QRS Dur : 96 ms QT Int : 370 ms P-R-T Axes : 63 68 48 degrees QTcB Int : 405 ms Normal sinus rhythm Possible Left atrial enlargement Borderline ECG When compared with ECG of 15-Sep-2024 11:43, No significant change was found Referred By: Richy Gannon Electronically Signed By: DINA ESQUIVEL MD
[2024-12-08 13:47] LABS: MANUAL DIFF FLAG NO
[2024-12-08 13:52] LABS: Basophils Absolute Auto 0.1 X10*3/uL (0.0-0.2); Basophils Percent Auto 1.1 % (0-2); Eosinophils Absolute Auto 0.1 X10*3/uL (0.0-0.4); Eosinophils Percent Auto 1.4 % (0-4); Hematocrit 37.2 % (37.0-47.0); Hemoglobin 12.4 g/dl (12.0-16.0); Imm Gran Abs Auto 0.02 X10*3/uL (0.00-0.03); Imm Gran Pct Auto 0.3 % (0.0-0.4); Lymphocytes Absolute Auto 1.2 X10*3/uL (1.2-4.9); Mean Corpuscular HGB Conc 33.3 g/dl (31.0-35.0); Mean Corpuscular Volume 87.1 fL (80.0-98.0); Mean Platelet Volume 9.2 fL (9.4-12.3); Monocytes Absolute Auto 0.5 X10*3/uL (0.1-1.2); Monocytes Percent Auto 7.1 % (2-11); Neutrophils Absolute Auto 4.8 x10*3/uL (2.0-8.3); Neutrophils Percent Auto 72.1 % (45-73); Platelet Count 328 X10*3/uL (160-400); Red Blood Count 4.27 X10*6/uL (4.20-5.50); Red Cell Distribution Width 16.4 % (11.0-16.0); White Blood Count 6.6 X10*3/uL (4.8-10.8)
[2024-12-08 14:04] LABS: Alanine Aminotransferase 25 U/L (0-31); Albumin Level 4.5 g/dL (3.5-5.0); Anion Gap 14 (12-20); Aspartate Amino Transferase 38 U/L (5-31); Bilirubin Total 0.5 mg/dL (0.0-1.0); Blood Urea Nitrogen 11 mg/dL (9-16); Calcium 8.9 mg/dL (8.4-10.2); Carbon Dioxide 27 mmol/L (22-29); Chloride 103 mmol/L (96-108); Creatinine Clr Calc Pharmacy 94.6; Estimated Glomerular Filt Rate > 60; Glucose Random 84 mg/dL (60-115); Lipase 10 U/L (8-78); Potassium 3.8 mmol/L (3.3-5.1); Sodium 140 mmol/L (135-145); Total Protein 7.1 g/dL (6.5-8.0)
[2024-12-08 14:13] LABS: Alkaline Phosphatase 68 U/L (39-117); HCG Quantitative < 2 mIU/mL
--- OUTSIDE RECORDS SUMMARY | 2024-12-08 14:18 | XMS_ITS | Encounter Summary ---
Author Organization [facility] [employer] [facility] Address [address] [place] [address] Care Team Providers Care Clinical Documentation Improvement Specialist Name Role Phone Unavailable Primary Care Provider [...]
--- OUTSIDE RECORDS SUMMARY | 2024-12-08 14:18 | XMS_ITS | Clinical Summary ---
Author Organization [employer] Address [address] [place] [address] Care Team Providers Care Railroad Dispatcher Name Role Phone Unavailable Primary Care Provider [...]
--- OUTSIDE RECORDS SUMMARY | 2024-12-08 14:18 | XMS_ITS | Encounter Summary ---
Author Organization [facility] [employer] [facility] Address [address] [place] [address] Care Team Providers Care Tenant Relations Coordinator Name Role Phone Unavailable Primary Care Provider Unavailabl e Encounter Details Date Type Department Care Team (Latest Contact Info) Description 10/26/2020 Abstract C CONVERSIONS Dental, Provider, DDS Social [...]
--- OUTSIDE RECORDS SUMMARY | 2024-12-08 14:18 | XMS_ITS | Clinical Summary ---
Author Organization [address] [place] [address] Address [address] [place] [address] Phone Care Team Providers Care Lube Worker Name Role Phone Deirdre Cantrell MD Primary Care Provider [phone] Allergies Active Allergy Reactions Criticality Noted Date [...] BY MOUTH EVERY DAY IN THE MORNING 2 Active trospium (SANCTURA) 20 mg tablet 2 Active QUEtiapine (SEROquel) 400 mg tablet TAKE 1 TABLET BY MOUTH EVERYDAY AT BEDTIME 2 Active sertraline (ZOLOFT) 100 mg tablet Take 200 mg by mouth daily. Active sucralfate (CARAFATE) 1 gram tablet Take 1 g by mouth 2 Times Daily. 2 Active ondansetron (ZOFRAN) 4 mg tablet Take 1 Tablet by mouth every 8 hours as needed. Active FREESTYLE LANCETS MISC 2 Active lactulose (CHRONULAC) solution 2 Active ferrous sulfate 325 mg (65 mg iron) EC tablet Take 1 Tablet by mouth daily. 3 Active famotidine (PEPCID) 40 mg tablet TAKE 1 TABLET BY MOUTH EVERYDAY AT BEDTIME 2 Active dicyclomine (BENTYL) 20 mg tablet Take 20 mg by mouth 2 Times Daily. 2 Active zinc glycinate 30 mg capsule Take 1 Capsule by mouth daily. 3 Active linaCLOtide (Linzess) 290 mcg capsule 1 Active blood sugar diagnostic (FreeStyle Lite Strips) test strip USE TO TEST DAILY 2 Active WHEAT DEXTRIN ORAL Take 4 g by mouth daily. 3 Active simethicone (MYLICON) 80 mg chewable tablet Take 1 Tablet by mouth every 6 hours as needed for Flatulence. 4 Active ursodioL (ACTIGALL) 300 mg capsule TAKE 1 CAPSULE BY MOUTH TWICE A DAY 60 capsule 5 5 Active ergocalciferol (VITAMIN D-2) 1,250 mcg (50,000 unit) capsuleIndications :Vitamin D deficiency Take 1 capsule (50,000 Units total) by mouth 1 (one) time per week for 8 doses. 8 each 5 01/23/20 25 Active cyanocobalamin, vitamin B-12, 1,000 mcg tablet, sublingualIndicati ons:Postgastrectom y malabsorption Place 1 tablet under the tongue 1 (one) time each day. 90 tablet 5 03/03/20 25 Active zinc gluconate 50 mg tabletIndications: Postoperative malabsorption Take 1 tablet (50 mg total) by mouth 1 (one) time each day. 30 tablet 5 12/06/19 26 Active Active Problems Problem Noted Date Diagnosed Date Lumbar degenerative disc disease 02/10/2022 Overview (06/15/2024): Last Assessment & Plan: This exam was performed with the assistance of an [facility] language services raisin washer, Galileo #[id number]. Ms. Leger states that she was unable to tolerate PT since she is been off pain meds and has not had a recent injection. She was followed by [facility] for pain management receiving [...] she is walking, she constantly has to lemon picker her leg. It is occasionally numb. On further questioning, she was previously followed at [facility] and was diagnosed with fibromyalgia and a chronic rheumatoid disorder but she left the practice when she had to change housing. On exam, she is bright and alert, answering the questions directly to the practical nurse and some to me in Estonian. She appears to be in moderate distress. [...] to her treating physician for fibromyalgia at [facility] and we will make every effort to figure out who this was and get her to the right people. Encounters Date Type Department Care Team Description 12/02/2024 9:15 AM EDT Office Visit Bariatric Surgery - [address] [place] [address] David Driscoll MD Dysphagia, unspecified type (Primary Dx); Postoperative intestinal malabsorption from Last 3 Months Immunizations Name Administration Dates Next Due DTaP (Infanrix) 6wks to less than 7yo 10/03/2011 Hepatitis B (Lexjlbu-I-Dfqzp , Recombivax HB-Adult) 19yo and older 09/17/2014,02/26/2014,01/12/2014 [...] LIGATION 2011 PROCEDURE: HISTORICAL TUBAL LIGATION; COMMENT: [facility] GASTRIC BYPASS PROCEDURE: AR GASTRIC RSTCV W/BYP W/SM INT RCNSTJ LIMIT ABSRPJ; COMMENT: Gastric sleeve Medical History Medical History Date Comments Anemia DX:Anemia Anxiety state DX:Anxiety state Diabetes mellitus type 2, co ntrolled, with complications ([facility]/HCC V24, CMS/HCC V28) DX:Diabetes mellitus type 2, controlled, with complications ([facility]) Generalized osteoarthrosis, unspecified site DX:Generalized osteoarthrosi s, [...] Value Date Recorded Sex Assigned at Female 12/04/2024 9:29 AM EDT Legal Sex Female 9:25 AM EST Gender Identity Female 12/04/2024 9:29 AM EDT Sexual Orientation Not on file Obstetrics History Last Filed Vital Signs Vital Sign Reading Time Taken Comments Blood Pressure 137/96 12/02/2024 9:17 AM EDT Pulse 65 12/02/2024 9:17 AM EDT Temperature 36.4 ??C (97.6 ??F) 12/02/2024 9:17 AM ED T Respiratory Rate - - Oxygen Saturation - - Inhaled Oxygen Concentration - - Weight 48.5 kg (107 lb) 11/14/2023 2:15 PM EDT Height 157.5 cm (5' 2 ) 12/02/2024 9:17 AM EDT Body Mass Index 19.57 09/25/2023 1:11 PM EST Plan of Treatment Upcoming Encounters Date Type Department Care Team (Late st Contact Info) Description 01/13/2025 9:45 AM EDT Appointment Xray [address] [place] [address] 01/16/2025 1:30 PM EDT Consult Gastroenterology - [facility] 175 [facility] 175 [facility] [address] [place] [phone] Dalton Mishra MD 175 [facility] [address] [place] [address] 03/24/2025 8:30 AM EDT Office Visit Bariatric Surgery - [facility] 175 [facility] [address] [place] [id number] David Driscoll MD [address] [address] Health Maintenance Due Date Last Done Comments [...] Diabetes: Blood Sugar Contro l Test (HGBA1C) 10/26/2022 04/28/2022, 02/25/2021 COVID-19 Vaccine (2023-2 5 season) 2024 Influenza Vaccine (Season Ended) 2025 05/21/2017 Diabetes: Annual GFR (Glomerular Filtration Rate) 12/02/2025 12/02/2024, 09/25/2023 Hypertension/CHF/CAD Annual BMP Blood Test 12/02/2025 12/02/2024, 09/25/2023 Cholesterol Screening (Lipid Panel) 02/25/2026 02/25/2021 [...] age to complete this topic Meningococcal B Vaccine Aged Out No l onger eligible based on patient's age to complete this topic RSV Immunization Patients Under 20 months Aged Out No longer eligible b ased on patient's age to complete this topic Varicella Vaccines Aged Out No longer eligible based on patient's age to complete this topic Procedures Procedure Name Priority Date/Time Associated Diagnosis Comments ZINC Routine 12/02/2024 10:21 AM EDT Postoperative intestinal malabsorption VITAMIN D 25 HYDROXY Routine 12/02/2024 10:21 AM EDT Postoperative intestinal malabsorption VITAMIN B6 Routine 12/02/2024 10:21 AM EDT Postoperative intestinal malabsorption VITAMIN B12 Routine 12/02/2024 10:21 AM EDT Postoperative intestinal malabsorption VITAMIN A Routine 12/02/2024 10:21 AM EDT Postoperative intestinal malabsorption SELENIUM SERUM Routine 12/02/2024 10:21 AM EDT Postoperative intestinal malabsorption IRON AND TIBC Routine 12/02/2024 10:21 AM EDT Postoperative intestinal malabsorption FOLATE Routine 12/02/2024 10:21 AM EDT Postoperative intestinal malabsorption COPPER, SERUM Routine 12/02/2024 10:21 AM EDT Postoperative intestinal malabsorption COMPREHENSIVE METABOLIC PANEL Routine 12/02/2024 10:21 AM EDT Postoperative intestinal malabsorption HEMOGLOBIN A1C Routine 02/25/2021 LIPID PANEL Routine 02/25/2021 HM HPV Routine 05/21/2015 from Last 3 Months or Most Recently Relevant to Health Maintenance Results * (ABNORMAL) Iron and TIBC (12/02/2024 10:21 AM EDT) Iron 181(H) 40 - 150 mcg/dL LAB CHEMISTRY METHOD 12/02/2024 3:31 PM EDT [facility] TIBC 412 250 - 450 mcg/dL LAB CHEMISTRY METHOD 12/02/2024 3:31 PM EDT [facility] Iron Saturation 44 15 - 50 % LAB CHEMISTRY METHOD 12/02/2024 3:31 PM EDT [facility] Blood Venous blood specimen / Unknown Venipuncture / Unknown 12/02/2024 10:21 AM EDT 12/02/2024 10:21 AM EDT David Driscoll MD LAB BLOOD ORDERABLES Final R esult [facility] [address] [place] [address], * Copper, serum (12/02/2024 10:21 AM EDT) Copper 1148 810 - 1990 ug/L 12/05/2024 12:[address] [facility] Comment: Copper values may be elevated to twice the normal levels in . Elevated results may be due to sample collected in a non-certified trace element-free tube. This test was developed and the performance characteristics determined by [facility]. It has not been cleared or approved by the FDA. The laboratory is regulated under CLIA as qualified to perform high-complexity testing. This test is used for patient testing purposes. It should not be regarded as investigational or for research. Test performed at [facility], [address] , [place], [place] [address] ? [phone] Sissy Raymundo MD, PhD - [employer] Blood Venous blood specimen / Unknown Venipuncture / Unknown 12/02/2024 10:21 AM EDT 12/02/2024 10:21 AM EDT David Driscoll MD LAB BLOOD ORDERABLES Final R esult [facility] [address] [place] [address] * (ABNORMAL) Zinc (12/02/2024 10:21 AM EDT) Zinc 53(L) 60 - 130 ug/dL 12/05/2024 12:[address] [facility] Comment: Elevated results may be due to sample collected in a non-certified trace element-free tube. This test was developed and the performance characteristics determined by [facility]. It has not been cleared or approved by the FDA. The laboratory is regulated under CLIA as qualified to perform high-complexity testing. This test is used for patient testing purposes. It should not be regarded as investigational or for research. Test performed at [facility], [address] [place], [place] ??[address] ? [phone] Sissy Raymundo MD, PhD - [employer] Blood Venous blood specimen / Unknown Venipuncture / Unknown 12/02/2024 10:21 AM EDT 12/02/2024 10:21 AM EDT David Driscoll MD LAB BLOOD ORDERABLES Final R esult Performing Organization Address [facility] Co de Phone Number [facility] [address] [place] [address] * Vitamin A (12/02/2024 10:21 AM EDT) Vitamin A 56 38 - 106 ug/dL 12/07/2024 9:01 AM EDT [facility] Comment: This test was developed and the performance characteristics determined by [facility]. It has not been cleared or approved by the FDA. The laboratory is regulated under CLIA as qualified to perform high-complexity testing. This test is used for patient testing purposes. It should not be regarded as investigational or for research. Test performed at [facility], [address] [place], [place] ??[address] ? [phone] Sissy Raymundo MD, PhD - [employer] Blood Venous blood specimen / Unknown Venipuncture / Unknown 12/02/2024 10:21 AM EDT 12/02/2024 10:21 AM EDT David Driscoll MD LAB BLOOD ORDERABLES Final R esult Performing Organization Address [facility] Co de Phone Number [facility] [address] [place], [place] [id number] * Selenium serum (12/02/2024 10:21 AM EDT) Selenium 135 63 - 160 mcg/L 12/07/2024 12:56 AM EDT [facility] Comment: This test was developed and its analytical performance characteristics have been determined by [employer] [place], [place]. It has not been cleared or approved by the U.S. Food and Drug Administration. This assay has been validated pursuant to the CLIA regulations and is used for clinical purposes. Test Performed by [employer] [place], [address] [place] [address] Armando Baumann M.D., Ph.D., Director of Laboratories , CLIA [id number] Blood Venous blood specimen / Unknown Venipuncture / Unknown 12/02/2024 10:21 AM EDT 12/02/2024 10:21 AM EDT David Driscoll MD LAB BLOOD ORDERABLES Final R esult [facility] [address] [place] [id number] * (ABNORMAL) Vitamin D 25 hydroxy (12/02/2024 10:21 AM EDT) Pathologist [facility] Vit D, 25-Hydroxy 23.2(L) 30.0 - 80.0 ng/mL LAB CHEMISTRY METHOD 12/02/2024 4:16 PM EDT [facility] Blood Venous blood specimen / Unknown Venipuncture / Unknown 12/02/2024 10:21 AM EDT 12/02/2024 10:21 AM EDT David Driscoll MD LAB BLOOD ORDERABLES Final R esult [facility] [address] [place] [address], [place] [phone] * Vitamin B6 (12/02/2024 10:21 AM EDT) Vitamin B6 (Pyridoxine) Level 7 5 - 50 ug/L 12/08/2024 12:08 PM EDT [facility] Comment: This test was developed and the performance characteristics determined by [facility]. It has not been cleared or approved by the FDA. The laboratory is regulated under CLIA as qualified to perform high-complexity testing. This test is used for patient testing purposes. It should not be regarded as investigational or for research. Test performed at [facility], [address] , [place], [place] [address] ? [phone] Sissy Raymundo MD, PhD - [employer] Blood Venous blood specimen / Unknown Venipuncture / Unknown 12/02/2024 10:21 AM EDT 12/02/2024 10:21 AM EDT David Driscoll MD LAB BLOOD ORDERABLES Final R esult Performing Organization Address City/[facility]/ZIP Co de Phone Number [facility] [address] [place] [address] * Folate (12/02/2024 10:21 AM EDT) Pathologist [facility] Folate 11.1 2.8 - 17.0 ng/ml LAB CHEMISTRY METHOD 12/02/2024 3:31 PM EDT [facility] Blood Venous blood specimen / Unknown Venipuncture / Unknown 12/02/2024 10:21 AM EDT 12/02/2024 10:21 AM EDT David Driscoll MD LAB BLOOD ORDERABLES Final R esult Performing Organization Address City/[facility]/ZIP Co de Phone Number [facility] [address] [place] [address], * (ABNORMAL) Vitamin B12 (12/02/2024 10:21 AM EDT) Vitamin B-12 133(L) 250 - 900 pcg/mL LAB CHEMISTRY METHOD 12/02/2024 3:32 PM EDT [facility] Blood Venous blood specimen / Unknown Venipuncture / Unknown 12/02/2024 10:21 AM EDT 12/02/2024 10:21 AM EDT us David Driscoll MD LAB BLOOD ORDERABLES Final R esult [facility] [address] [place] [address], [place] [phone] * Comprehensive metabolic panel (12/02/2024 10:21 AM EDT) Sodium 138 133 - 145 mmol/L LAB CHEMISTRY METHOD 12/02/2024 3:31 PM [facility] Potassium 4.0 3.5 - 5.5 mmol/L LAB CHEMISTRY METHOD 12/02/2024 3:31 PM [facility] Chloride 105 96 - 110 mmol/L LAB CHEMISTRY METHOD 12/02/2024 3:31 PM [facility] CO2 24 21 - 32 mmol/L LAB CHEMISTRY METHOD 12/02/2024 3:31 PM [facility] Anion Gap 9 3 - 11 LAB CHEMISTRY METHOD 12/02/2024 3:31 PM [facility] Glucose 85 70 - 100 mg/dL LAB CHEMISTRY METHOD 12/02/2024 3:31 PM [facility] BUN 11 5 - 25 mg/dL LAB CHEMISTRY METHOD 12/02/2024 3:31 PM [facility] Creatinine 0.55 0.50 - 1.10 mg/dL LAB CHEMISTRY METHOD 12/02/2024 3:31 PM [facility] eGFR 116 >=60 mL/min/1. 73m2 LAB CHEMISTRY METHOD 12/02/2024 3:31 PM [facility] Comment:Calculation based on the Chronic Kidney Disease Epidemiology Collaboration (CKD-EPI) equation refit without adjustment for race. BUN/Creatinine Ratio 20.0 LAB CHEMISTRY METHOD 12/02/2024 3:31 PM [facility] Calcium 9.1 8.5 - 10.5 mg/dL LAB CHEMISTRY METHOD 12/02/2024 3:31 PM EDT [facility] AST (SGOT) 20 10 - 42 unit/L LAB CHEMISTRY METHOD 12/02/2024 3:31 PM EDT [facility] ALT (SGPT) 20 10 - 60 unit/L LAB CHEMISTRY METHOD 12/02/2024 3:31 PM EDT [facility] Alkaline Phosphatase 69 42 - 121 unit/L LAB CHEMISTRY METHOD 12/02/2024 3:31 PM EDT [facility] Total Protein 7.3 6.0 - 8.0 g/dL LAB CHEMISTRY METHOD 12/02/2024 3:31 PM EDT [facility] Albumin 4.1 3.2 - 5.0 g/dL LAB CHEMISTRY METHOD 12/02/2024 3:31 PM EDT [facility] Total Bilirubin 0.5 0.0 - 1.4 mg/dL LAB CHEMISTRY METHOD 12/02/2024 3:31 PM EDT [facility] Blood Venous blood specimen / Unknown Venipuncture / Unknown 12/02/2024 10:21 AM EDT 12/02/2024 10:21 AM EDT us David Driscoll MD LAB BLOOD ORDERABLES Final R esult [facility] [address] [place] [address], * Hemoglobin A1c (02/25/2021) Pathologist [facility] Hemoglobin A1C 5.7 <=6.5 % Blood Venous blood specimen / Unknown [place] Provider LAB BLOOD ORDERABLES Katelyn l Result * (ABNORMAL) Lipid panel (02/25/2021) LDL/HDL Ratio 6(A) 0 - 4 Triglycerides 104 0 - 150 mg/dL Cholesterol 208(A) 0 - 200 mg/dL HDL 36(A) >=40 mg/dL LDL Cholesterol 152(A) 0 - 100 mg/dL Blood Venous blood specimen / Unknown us Historical Provider LAB BLOOD ORDERABLES Katelyn l Result * Cervical Cancer Screening: HPV (05/21/2015) Cervical Cancer Screening: HPV abstracted, no interpretation us Historical Provider HEALTH MAINTENANCE Final Result from Last 3 Months or Most Recently Relevant to Health Maintenance Insurance [employer] Care Teams Lube Worker Relationship Specialty Start Date End Date Deirdre Cantrell MD [address] [place] [address] [address] [facility] [place] [address] PCP - General Internal Medicine 02/14/22
[2024-12-08 14:37] VITALS: BP 153/108; PULSE 85; RESP 18; TEMP 36.5; O2SAT 100
== END 2024-12-08 14:42 | disposition home or self-care (01) ==
PROVIDERS: Physician Assistant; Emergency Provider Student in an Organized Health Care Education/Training Program; PCP Internal Medicine
DX: K20.90 Esophagitis, unspecified without bleeding (principal); R13.10 Dysphagia, unspecified; E11.9 Type 2 diabetes mellitus without complications; I10 Essential (primary) hypertension; E78.00 Pure hypercholesterolemia, unspecified; D50.9 Iron deficiency anemia, unspecified; Z90.3 Acquired absence of stomach [part of]; Z87.891 Personal history of nicotine dependence
CPT/HCPCS: 36415; 80053; 83690; 84702; 85025; 93005; 99283

== ENCOUNTER → 2024-12-08 13:05 | Outpatient (BNV) | payer OTHER, SELFPAY | PROVIDERS: Emergency Provider Student in an Organized Health Care Education/Training Program; PCP Internal Medicine; Visit Provider Internal Medicine Cardiovascular Disease | DX: R94.31 Abnormal electrocardiogram [ECG] [EKG] (principal); R10.9 Unspecified abdominal pain | CPT/HCPCS: 93010 ==

== ENCOUNTER 2025-02-23 11:21 | Outpatient (AMB) | payer OTHER, SELFPAY ==
[2025-02-23 11:24] VITALS: BP 162/90; PULSE 72; RESP 18; TEMP 36.5; O2SAT 98
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
--- OUTSIDE RECORDS SUMMARY | 2025-02-23 12:38 | XMS_ITS | Encounter Summary ---
Author Organization [facility] Address [address] [place] [address] Care Team Providers Care Picker And Sorter Load And Unload Name Role Phone Unavailable Primary Care Provider [...]
--- OUTSIDE RECORDS SUMMARY | 2025-02-23 12:38 | XMS_ITS | Clinical Summary ---
Author Organization [facility] Address [address] [place] [address] Care Team Providers Care Script Girl Name Role Phone Unavailable Primary Care Provider [...]
--- OUTSIDE RECORDS SUMMARY | 2025-02-23 12:38 | XMS_ITS | Clinical Summary ---
Author Organization 175 [facility] Address [address] [place] [address] Phone Care Team Providers Care Crm Functional Analyst Name Role Phone Deirdre Cantrell MD Primary Care Provider [phone] Allergies Active Allergy Reactions Criticality Noted Date [...] BY MOUTH EVERY DAY IN THE MORNING 01/28/20 22 Active trospium (SANCTURA) 20 mg tablet 05/18/20 22 Active QUEtiapine (SEROquel) 400 mg tablet TAKE 1 TABLET BY MOUTH EVERYDAY AT BEDTIME 01/02/20 22 Active sertraline (ZOLOFT) 100 mg tablet Take 200 mg by mouth daily. Active sucralfate (CARAFATE) 1 gram tablet Take 1 g by mouth 2 Times Daily. 11/14/19 22 Active ondansetron (ZOFRAN) 4 mg tablet Take 1 Tablet by mouth every 8 hours as needed. Active FREESTYLE LANCETS MISC 01/27/20 22 Active lactulose (CHRONULAC) solution 02/09/20 22 Active ferrous sulfate 325 mg (65 mg iron) EC tablet Take 1 Tablet by mouth daily. 04/20/20 23 Active famotidine (PEPCID) 40 mg tablet TAKE 1 TABLET BY MOUTH EVERYDAY AT BEDTIME 01/28/20 22 Active dicyclomine (BENTYL) 20 mg tablet Take 20 mg by mouth 2 Times Daily. 01/12/20 22 Active zinc glycinate 30 mg capsule Take 1 Capsule by mouth daily. 04/20/20 23 Active linaCLOtide (Linzess) 290 mcg capsule 01/18/20 21 Active blood sugar diagnostic (FreeStyle Lite Strips) test strip USE TO TEST DAILY 01/28/20 22 Active WHEAT DEXTRIN ORAL Take 4 g by mouth daily. 07/24/20 23 Active simethicone (MYLICON) 80 mg chewable tablet Take 1 Tablet by mouth every 6 hours as needed for Flatulence. 05/06/20 24 Active cyanocobalamin, vitamin B-12, 1,000 mcg tablet, sublingualIndica tions:Postgastre ctomy malabsorption Place 1 tablet under the tongue 1 (one) time each day. 90 tablet 12/04/19 25 2024 Active Additional Information Patient not taking.Reported on 01/16/2025 zinc gluconate 50 mg tabletIndication s:Postoperative malabsorption Take 1 tablet (50 mg total) by mouth 1 (one) time each day. 30 tablet 12/06/19 25 2025 Active Additional Information Patient not taking.Reported on 01/16/2025 ursodioL (ACTIGALL) 300 mg capsule TAKE 1 CAPSULE BY MOUTH TWICE A DAY 60 capsule 5 02/10/20 25 Active ursodioL (ACTIGALL) 300 mg capsule TAKE 1 CAPSULE BY MOUTH TWICE A DAY 60 capsule 5 08/12/19 25 2024 Discontinued Active Problems Problem Noted Date Diagnosed Date Lumbar degenerative disc disease 02/10/2022 Overview (06/15/2024): Last Assessment & Plan: This exam was performed with the assistance of an [facility] language services military pilot, Galileo #[id number]. Ms. Leger states that she was unable to tolerate PT since she is been off pain meds and has not had a recent injection. 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 It is occasionally numb. On further questioning, she was previously followed at [facility] and was diagnosed with fibromyalgia and a chronic rheumatoid disorder but she left the practice when she had to change housing. On exam, she is bright and alert, answering the questions directly to the rating specialist and some to me in Ghanaian. She appears to be in moderate distress. [...] to her treating physician for fibromyalgia at [place] and we will make every effort to figure out who this was and get her to the right people. Encounters Date Type Department Care Team Description 01/16/2025 1:30 PM EDT Consult Gastroenterology - [address] [place] [id number] Dalton Mishra MD Abnormal barium swallow (Primary Dx); Dysphagia, unspecified type; History of Luis Enrique-en-Y gastric bypass 12/08/2024 Telephone Bariatric Surgery - [address] [place] [address] Salome MiguelODEM, [place] 12/02/2024 9:15 AM EDT Office Visit Bariatric Surgery - [place] 175 [facility] [address] [place] [address] David Driscoll MD Dysphagia, unspecified type (Primary Dx); Postoperative intestinal malabsorption from Last 3 Months Immunizations Name Administration Dates Next Due DTaP (Infanrix) 6wks to less than 7yo 10/03/2011 Hepatitis B (Pyltfjh-A-Ygiex , Recombivax HB-Adult) 19yo and older 09/17/2014,02/26/2014,01/12/2014 [...] LIGATION 2011 PROCEDURE: HISTORICAL TUBAL LIGATION; COMMENT: [facility] GASTRIC BYPASS PROCEDURE: [place] GASTRIC RSTCV W/BYP W/SM INT RCNSTJ LIMIT ABSRPJ; COMMENT: Gastric sleeve Medical History Medical History Date Comments Anemia DX:Anemia Anxiety state DX:Anxiety state Diabetes mellitus type 2, co ntrolled, with complications (CMS/HCC V24, CMS/HCC V28) DX:Diabetes mellitus type 2, controlled, with complications ([facility]) Generalized osteoarthrosis, unspecified site DX:Generalized osteoarthrosi s, [...] drink = 0.6 oz pur e alcohol) occasional Comments Unknown Sex and Gender Information Value Date Recorded Sex Assigned at Female 12/04/2024 9:29 AM EDT Legal Sex Female 9:25 AM EST Gender Identity Female 12/04/2024 9:29 AM EDT Sexual Orientation Straight 01/14/2025 2: 23 PM EDT Obstetrics History Last Filed Vital Signs Vital Sign Reading Time Taken Comments Blood Pressure 144/86 01/16/2025 1:28 PM EDT Pulse 88 01/16/2025 1:28 PM EDT Temperature 36.4 C (97.6 F) 12/02/2024 9:17 AM EDT Respiratory Rate - - Oxygen Saturation - - Inhaled Oxygen Concentration - - Weight 54.7 kg (120 lb 9.6 oz) 01/16/2025 1:28 P M EDT Height 157.5 cm (5' 2 ) 01/16/2025 1:28 PM EDT Body Mass Index 22.06 01/16/2025 1:28 PM EDT Plan of Treatment Upcoming Encounters Date Type Department Care Team (Late st Contact Info) Description 03/06/2025 7:30 AM EDT Appointment [facility] Endoscopy [address] [place] [phone] Dalton Mishra MD 175 [facility] [address] [place] [address] 03/24/2025 8:30 AM EDT Office Visit Bariatric Surgery - [place] [address] [address] David Driscoll MD [address] [address] 04/01/2025 8:15 AM EDT Appointment [facility] Xray [address] [place] [address] Health Maintenance Due Date Last Done Comments Breast Cancer Screening 1980 Diabetes: Annual Foot Exam 1990 Diabetes: Annual Retina Eye Exam 1990 Cervical Cancer Screening: P ap Smear 05/21/2018 05/21/2015, 05/21/2015 DTaP,Tdap,and Td Vaccines (3 - Td or Tdap) 10/02/2021 10/03/2011, 10/03/2011 HIV Screening 07/08/2022 Hepatitis C Screening 07/08/2022 Social Influencers of Health Screening 07/08/2022 Diabetes: Annual Urine Albumin-Creatinine Ratio (uACR) 07/15/2022 Diabetes: Blood Sugar Contro l Test (HGBA1C) 10/26/2022 04/28/2022, 02/25/2021 COVID-19 Vaccine (1 - 2023-2 5 season) 2024 Depression Screening 07/30/2024 Influenza Vaccine (#1) 2025 05/21/2017 Diabetes: Annual GFR (Glomerular Filtration Rate) 12/02/2025 12/02/2024, 09/25/2023 Hypertension/CHF/CAD Annual BMP Blood Test 12/02/2025 12/02/2024, 09/25/2023 Cholesterol Screening (Lipid Panel) 02/25/2026 02/25/2021 Hepatitis B Vaccines Completed 09/17/2014, 02/26/2014, 01/12/2014 Pneumococcal Vaccine: Pediatrics (0 to 5 Years) and At-Risk Patients (6 to 49 Years) Aged Out 04/02/2016, 10/03/2011 No longer [...] Procedure Name Priority Date/Time Associated Diagnosis Comments EXTERNAL ENDOSCOPY REPORT 12/09/2024 ZINC Routine 12/02/2024 10:21 AM EDT Postoperative intestinal malabsorption VITAMIN D 25 HYDROXY Routine 12/02/2024 10:21 AM EDT Postoperative intestinal malabsorption VITAMIN B6 Routine 12/02/2024 10:21 AM EDT Postoperative intestinal malabsorption VITAMIN B12 Routine 12/02/2024 10:21 AM EDT Postoperative intestinal malabsorption VITAMIN B1 Routine 12/02/2024 10:21 AM EDT Postoperative intestinal [...] Recently Relevant to Health Maintenance Results * External Endoscopy (12/09/2024) Anatomical Region Laterality Modality Endoscopy Provider [facility]~PROCEDURE ORDERABLES Final Result * (ABNORMAL) Iron and TIBC (12/02/2024 10:21 AM EDT) Iron 181(H) 40 - 150 mcg/dL LAB CHEMISTRY METHOD 12/02/2024 3:31 PM EDT [facility] TIBC 412 250 - 450 mcg/dL LAB CHEMISTRY METHOD 12/02/2024 3:31 PM EDT [facility] Iron Saturation 44 15 - 50 % LAB CHEMISTRY METHOD 12/02/2024 3:31 PM EDT [facility] Blood Venous blood specimen / Unknown Venipuncture / Unknown 12/02/2024 10:21 AM EDT 12/02/2024 10:21 AM EDT David Driscoll MD LAB BLOOD ORDERABLES Final R esult [facility] [address] [place] [address], * Copper, serum (12/02/2024 10:21 AM EDT) Copper 1148 810 - 1990 ug/L 12/05/2024 12:12 PM EDT [facility] Comment: Copper values may be elevated to twice the normal levels in . Elevated results may be due to sample collected in a non-certified trace element-free tube. This test was developed and the performance characteristics determined by [facility] [employer]. It has not been cleared or approved by the FDA. The laboratory is regulated under CLIA as qualified to perform high-complexity testing. This test is used for patient testing purposes. It should not be regarded as investigational or for research. Test performed at [facility], [address] , [place] [address] Sissy Raymundo MD, PhD - Automatic Se[employer] Blood Venous blood specimen / Unknown Venipuncture / Unknown 12/02/2024 10:21 AM EDT 12/02/2024 10:21 AM EDT David Driscoll MD LAB BLOOD ORDERABLES Final R esult Performing Organization Address [facility] Co de Phone Number [facility] [address] [place] [address] * (ABNORMAL) Zinc (12/02/2024 10:21 AM EDT) Zinc 53(L) 60 - 130 ug/dL 12/05/2024 12:29 PM EDT [facility] Comment: Elevated results may be due to sample collected in a non-certified trace element-free tube. This test was developed and the performance characteristics determined by [facility]. It has not been cleared or approved by the FDA. The laboratory is regulated under CLIA as qualified to perform high-complexity testing. This test is used for patient testing purposes. It should not be regarded as investigational or for research. Test performed at [facility], [address] , [place] [address] Sissy Raymundo MD, PhD - Automatic Se[employer] Blood Venous blood specimen / Unknown Venipuncture / Unknown 12/02/2024 10:21 AM EDT 12/02/2024 10:21 AM EDT David Driscoll MD LAB BLOOD ORDERABLES Final R esult Performing Organization Address [facility] Co de Phone Number [facility] [address] [place] [address] * Vitamin A (12/02/2024 10:21 AM EDT) Vitamin A 56 38 - 106 ug/dL 12/07/2024 9:01 AM EDT [facility] Comment: This test was developed and the performance characteristics determined by [facility]. It has not been cleared or approved by the FDA. The laboratory is regulated under CLIA as qualified to perform high-complexity testing. This test is used for patient testing purposes. It should not be regarded as investigational or for research. Test performed at [facility], [address], [place] [address] Sissy Raymundo MD, PhD - Automatic Se[employer] Blood Venous blood specimen / Unknown Venipuncture / Unknown 12/02/2024 10:21 AM EDT 12/02/2024 10:21 AM EDT David Driscoll MD LAB BLOOD ORDERABLES Final R esult Performing Organization Address City/[facility]/ZIP Co de Phone Number [facility] [address] [place] [address] * Selenium serum (12/02/2024 10:21 AM EDT) Pathologist [facility] Selenium 135 63 - 160 mcg/L 12/07/2024 12:56 AM EDT [facility] Comment: This test was developed and its analytical performance characteristics have been determined by [employer] [place], [place]. It has not been cleared or approved by the U.S. Food and Drug Administration. This assay has been validated pursuant to the CLIA regulations and is used for clinical purposes. Test Performed by [facility], [employer] [facility], [address] [place] [address] Armando Baumann M.D., Ph.D., Director of Laboratories , CLIA [id number] Blood Venous blood specimen / Unknown Venipuncture / Unknown 12/02/2024 10:21 AM EDT 12/02/2024 10:21 AM EDT David Driscoll MD LAB BLOOD ORDERABLES Final R esult Performing Organization Address City/[facility]/ZIP Co de Phone Number [facility] [address] [place], [place] [id number] * (ABNORMAL) Vitamin D 25 hydroxy (12/02/2024 10:21 AM EDT) Vit D, 25-Hydroxy 23.2(L) 30.0 - 80.0 ng/mL LAB CHEMISTRY METHOD 12/02/2024 4:16 PM EDT [facility] Blood Venous blood specimen / Unknown Venipuncture / Unknown 12/02/2024 10:21 AM EDT 12/02/2024 10:21 AM EDT David Driscoll MD LAB BLOOD ORDERABLES Final R esult [facility] [address] [place] [address], [place] [phone] * Vitamin B1 (12/02/2024 10:21 AM EDT) [facility] Vitamin B1 Whole Blood 47 38 - 122 ug/L 12/09/2024 12:56 PM EDT [facility] Comment: This test was developed and the performance characteristics determined by [facility]. It has not been cleared or approved by the FDA. The laboratory is regulated under CLIA as qualified to perform high-complexity testing. This test is used for patient testing purposes. It should not be regarded as investigational or for research. Test performed at [facility], [address] , [place] [address] Sissy Raymundo MD, PhD - [employer] Blood Venous blood specimen / Unknown Venipuncture / Unknown 12/02/2024 10:21 AM EDT 12/02/2024 10:21 AM EDT us David Driscoll MD LAB BLOOD ORDERABLES Final R esult [facility] [address] [place] [address] * Vitamin B6 (12/02/2024 10:21 AM EDT) [facility] Vitamin B6 (Pyridoxine) Level 7 5 - 50 ug/L 12/08/2024 12:08 PM EDT [facility] Comment: This test was developed and the performance characteristics determined by [facility]. It has not been cleared or approved by the FDA. The laboratory is regulated under CLIA as qualified to perform high-complexity testing. This test is used for patient testing purposes. It should not be regarded as investigational or for research. Test performed at [facility], [address] , [place] [address] Sissy Raymundo MD, PhD - [employer] Blood Venous blood specimen / Unknown Venipuncture / Unknown 12/02/2024 10:21 AM EDT 12/02/2024 10:21 AM EDT David Driscoll MD LAB BLOOD ORDERABLES Final R esult [facility] [address] [place] [address] * Folate (12/02/2024 10:21 AM EDT) [facility] Folate 11.1 2.8 - 17.0 ng/ml LAB CHEMISTRY METHOD 12/02/2024 3:31 PM EDT [facility] Blood Venous blood specimen / Unknown Venipuncture / Unknown 12/02/2024 10:21 AM EDT 12/02/2024 10:21 AM EDT David Driscoll MD LAB BLOOD ORDERABLES Final R esult [facility] [address] [place] [address], [place] [phone] * (ABNORMAL) Vitamin B12 (12/02/2024 10:21 AM EDT) Pathologist [facility] Vitamin B-12 133(L) 250 - 900 pcg/mL LAB CHEMISTRY METHOD 12/02/2024 3:32 PM EDT [facility] Blood Venous blood specimen / Unknown Venipuncture / Unknown 12/02/2024 10:21 AM EDT 12/02/2024 10:21 AM EDT us David Driscoll MD LAB BLOOD ORDERABLES Final R esult [facility] [address] [place] [address], [place] [phone] * Comprehensive metabolic panel (12/02/2024 10:21 AM EDT) Pathologist [facility] Sodium 138 133 - 145 mmol/L LAB CHEMISTRY METHOD 12/02/2024 3:31 PM [facility] Potassium 4.0 3.5 - 5.5 mmol/L LAB CHEMISTRY METHOD 12/02/2024 3:31 PM [facility] Chloride 105 96 - 110 mmol/L LAB CHEMISTRY METHOD 12/02/2024 3:31 PM [facility] CO2 24 21 - 32 mmol/L LAB CHEMISTRY METHOD 12/02/2024 3:31 PM [facility] Anion Gap 9 3 - 11 LAB CHEMISTRY METHOD 12/02/2024 3:31 PM [facility] Glucose 85 70 - 100 mg/dL LAB CHEMISTRY METHOD 12/02/2024 3:31 PM [facility] BUN 11 5 - 25 mg/dL LAB CHEMISTRY METHOD 12/02/2024 3:31 PM [facility] Creatinine 0.55 0.50 - 1.10 mg/dL LAB CHEMISTRY METHOD 12/02/2024 3:31 PM [facility] eGFR 116 >=60 mL/min/1. 73m2 LAB CHEMISTRY METHOD 12/02/2024 3:31 PM [facility] Comment:Calculation based on the Chronic Kidney Disease Epidemiology Collaboration (CKD-EPI) equation refit without adjustment for race. BUN/Creatinine Ratio 20.0 LAB CHEMISTRY METHOD 12/02/2024 3:31 PM [facility] Calcium 9.1 8.5 - 10.5 mg/dL LAB CHEMISTRY METHOD 12/02/2024 3:31 PM EDT [facility] AST (SGOT) 20 10 - 42 unit/L LAB CHEMISTRY METHOD 12/02/2024 3:31 PM EDT [facility] ALT (SGPT) 20 10 - 60 unit/L LAB CHEMISTRY METHOD 12/02/2024 3:31 PM EDT [facility] Alkaline Phosphatase 69 42 - 121 unit/L LAB CHEMISTRY METHOD 12/02/2024 3:31 PM EDT [facility] Total Protein 7.3 6.0 - 8.0 g/dL LAB CHEMISTRY METHOD 12/02/2024 3:31 PM [facility] Albumin 4.1 3.2 - 5.0 g/dL LAB CHEMISTRY METHOD 12/02/2024 3:31 PM [facility] Total Bilirubin 0.5 0.0 - 1.4 mg/dL LAB CHEMISTRY METHOD 12/02/2024 3:31 PM EDT [facility] Blood Venous blood specimen / Unknown Venipuncture / Unknown 12/02/2024 10:21 AM EDT 12/02/2024 10:21 AM EDT David Driscoll MD LAB BLOOD ORDERABLES Final R esult [facility] [address] [place] [address], * Hemoglobin A1c (02/25/2021) Pathologist [facility] Hemoglobin A1C 5.7 <=6.5 % Blood Venous blood specimen / Unknown us Historical Provider LAB BLOOD ORDERABLES Katelyn l Result * (ABNORMAL) Lipid panel (02/25/2021) Pathologist [facility] LDL/HDL Ratio 6(A) 0 - 4 Triglycerides 104 0 - 150 mg/dL Cholesterol 208(A) 0 - 200 mg/dL HDL 36(A) >=40 mg/dL LDL Cholesterol 152(A) 0 - 100 mg/dL Blood Venous blood specimen / Unknown Historical Provider LAB BLOOD ORDERABLES Katelyn l Result * Cervical Cancer Screening: HPV (05/21/2015) Cervical Cancer Screening: HPV abstracted, no interpretation Historical Provider HEALTH MAINTENANCE Final Result from Last 3 Months or Most Recently Relevant to Health Maintenance Insurance [facility] [employer] Care Teams Crm Functional Analyst Relationship Specialty Start Date End Date Deirdre Cantrell MD [address] [place] [address] [address] [facility] [place] [address] PCP - General Internal Medicine 02/14/22
== END 2025-02-23 12:36 | disposition home or self-care (01) ==
LOC: HO.HMCH 11:22
PROVIDERS: PCP Internal Medicine; Visit Provider Internal Medicine
DX: Z00.00 Encounter for general adult medical examination without abnormal findings (principal); I10 Essential (primary) hypertension; E78.00 Pure hypercholesterolemia, unspecified; Z90.3 Acquired absence of stomach [part of]; K21.9 Gastro-esophageal reflux disease without esophagitis; R13.10 Dysphagia, unspecified; K59.00 Constipation, unspecified; Z13.9 Encounter for screening, unspecified

== ENCOUNTER 2025-02-23 11:21 | Outpatient (REF) | payer OTHER, SELFPAY ==
[2025-02-23 13:10] LABS: MANUAL DIFF FLAG NO
[2025-02-23 13:44] LABS: Hematocrit 39.4 % (37.0-47.0); Hemoglobin 12.7 g/dl (12.0-16.0); Imm Gran Abs Auto 0.02 X10*3/uL (0.00-0.03); Imm Gran Pct Auto 0.4 % (0.0-0.4); Lymphocytes Absolute Auto 1.1 X10*3/uL (1.2-4.9); Mean Corpuscular HGB Conc 32.2 g/dl (31.0-35.0); Mean Corpuscular Hemoglobin 28.1 pg (27.0-33.0); Mean Corpuscular Volume 87.2 fL (80.0-98.0); NRBC Abs Auto 0.000 X10*3/uL (0.0-0.012); NRBC Pct Auto 0.0 /100WBC (0.0-0.2); Platelet Count 358 X10*3/uL (160-400); Red Blood Count 4.52 X10*6/uL (4.20-5.50); White Blood Count 4.6 X10*3/uL (4.8-10.8)
[2025-02-23 14:03] LABS: Appearance Urine Cloudy; Glucose Urine UA Negative (Negative); PH 6.5 (5.0-9.0); Specific Gravity - Urine 1.025 (1.005-1.025); UMIC TRIGGER UACC YES
[2025-02-23 14:13] LABS: UACC Culture Trigger YES
[2025-02-23 14:38] LABS: Alanine Aminotransferase 28 U/L (0-31); Albumin Level 5.3 g/dL (3.5-5.0); Alkaline Phosphatase 93 U/L (39-117); Anion Gap 16 (12-20); Aspartate Amino Transferase 40 U/L (5-31); Blood Urea Nitrogen 11 mg/dL (9-16); Calcium 9.7 mg/dL (8.4-10.2); Carbon Dioxide 26 mmol/L (22-29); Chloride 102 mmol/L (96-108); Cholesterol 205 mg/dL (<200); Estimated Glomerular Filt Rate > 60; HDL Cholesterol 69 mg/dL (>40); Iron 176 mcg/dL (30-160); Percent Iron Saturation 45 % (15-50); Potassium 4.2 mmol/L (3.3-5.1); Sodium 140 mmol/L (135-145); Total Iron Binding Capacity 394 mcg/dL (228-428); Total Protein 8.2 g/dL (6.5-8.0); Triglycerides 65 mg/dL (<150); Unsaturated Iron Binding 218 ug/dL
[2025-02-23 14:54] LABS: Ferritin 21 ng/mL (10-250); Free T4 (Free Thyroxine) 0.99 ng/dL (0.71-1.85); Thyroid Stimulating Hormone 0.92 uIU/mL (0.32-4.0)
[2025-02-23 14:58] LABS: Vitamin B12 < 148 pg/mL (200-900)
[2025-02-23 15:18] LABS: Folate 6.8 ng/mL (> or = 4.0)
== END 2025-02-23 11:22 | disposition home or self-care (01) ==
LOC: HO.LAB 11:21
PROVIDERS: PCP Internal Medicine; Visit Provider Internal Medicine
DX: Z00.00 Encounter for general adult medical examination without abnormal findings (principal); I10 Essential (primary) hypertension; E78.00 Pure hypercholesterolemia, unspecified; K21.9 Gastro-esophageal reflux disease without esophagitis; R13.10 Dysphagia, unspecified; K59.00 Constipation, unspecified; D64.9 Anemia, unspecified; Z79.899 Other long term (current) drug therapy; Z90.3 Acquired absence of stomach [part of]; Z13.31 Encounter for screening for depression; Z13.30 Encounter for screening examination for mental health and behavioral disorders, unspecified
CPT/HCPCS: 36415; 80053; 80061; 81001; 81003; 82306; 82607; 82728; 82746; 83036; 83540; 84439; 84443; 85025; 87086; 87088; 87186; 99396

== ENCOUNTER → 2025-03-01 08:50 | Outpatient (BNV) | payer OTHER, SELFPAY | PROVIDERS: Emergency Provider Emergency Medicine; PCP Internal Medicine; Visit Provider Radiology Vascular & Interventional Radiology | DX: K56.49 Other impaction of intestine (principal) | CPT/HCPCS: 74018 ==

== ENCOUNTER 2025-03-01 09:20 | Emergency (ER) | payer OTHER, SELFPAY ==
--- NOTE | ~2025-03-01 | XR_ITS ---
CLINICAL HISTORY: no bm x 1 month 1 view abdomen Comparison: None provided Findings: No pneumoperitoneum or pneumatosis. Moderate fecal retention throughout the colon. No abnormal calcifications. No acute fractures. IMPRESSION: Moderate fecal retention throughout the colon. No small bowel obstruction or free air. This document has been electronically signed by: Juni Charles MD on 03/01/2025 10:36:00
[2025-03-01 09:36] VITALS: BP 168/99; PULSE 87; RESP 18; TEMP 36.6; O2SAT 98; BMI 22.1
--- NOTE | 2025-03-01 10:51 | ED.GENADULT ---
HPI - General Adult General Chief complaint: Abdominal Pain Stated complaint: Intestinal obstruction Dr ogden Time Seen by Provider: 03/01/25 10:51 History of Present Illness ED Provider: Melody BARRY narrative: The patient is a 44-year-old woman. She has a history of robotic sleeve gastrectomy by Dr. Driscoll at [facility]. She has had problems with constipation in the past. She presents today saying she has not had a bowel movement for a month. She feels that only some slight liquid gel is coming out when she tries to pass a stool. She has had some occasional nausea and vomiting. No fever, sweats, chills. Related Data Home Medications ?Medication ?Instructions ?Recorded ?Confirmed triamcinolone acetonide 0.1 % 1 appl topical DAILY 02/07/23 02/23/25 topical cream zolpidem 10 mg tablet 10 mg PO BEDTIME PRN Insomnia 02/07/23 02/23/25 clonazepam 1 mg tablet 1 mg PO TID 08/25/24 02/23/25 Previous Rx's ?Medication ?Instructions ?Recorded BATH CHAIR #1 ea 01/31/22 CANE #1 ea 01/31/22 LIFELINE ALERT SYSTEM #1 ea 01/31/22 WRIST BRACE #1 ea 01/31/22 ALCOHOL PADS #100 ea 02/21/22 SHOWER BAR #1 ea 06/08/22 SHOWER WAND #1 ea 06/08/22 Bed pads #100 ea 07/17/22 Bedside commode #1 ea 07/17/22 SANITARY PADS #100 ea 07/17/22 sumatriptan 5 mg/actuation nasal 5 mg intranasal Q2-4H PRN migraine 03/03/23 spray headache #6 ea prochlorperazine 25 mg rectal 25 mg LA Q12H PRN nausea and 03/16/23 suppository (Compro) vomiting #12 ea cyclobenzaprine 5 mg tablet 5 mg PO Q8H PRN pain (scale score 03/20/23 7-10) 5 days #14 tabs ROLLATOR #1 ea 06/28/23 simethicone 40 mg/0.6 mL oral 0.6 ml PO BID-TID PRN abdominal 08/02/23 drops,suspension distention #15 mL bisacodyl 10 mg rectal suppository 10 mg LA DAILY PRN constipation 11/14/23 (Dulcolax (bisacodyl)) #30 ea multivit-minerals no.73-iron 1 cap PO DAILY #30 caps 12/19/23 fumarate 106 mg-folic acid 1 mg capsule sucralfate 100 mg/mL oral 10 ml PO QID #840 mL 01/16/24 suspension (Carafate) fluticasone propionate 50 1 spray intranasal DAILY #100 mL 03/28/24 mcg/actuation nasal spray,suspension (Flonase Allergy Relief) lactulose 10 gram/15 mL (15 mL) 10 g (15 mL) PO DAILY PRN laxative 05/13/24 oral solution effect 5 days #300 mL esomeprazole magnesium 10 mg 20 mg PO BID 90 days #180 ea 05/15/24 granules delayed release for susp acetaminophen 160 mg/5 mL oral 320 mg (10 mL) PO Q6H PRN fever or 08/25/24 liquid pain #473 mL blood sugar diagnostic (FreeStyle #100 ea 08/25/24 Lite Strips) blood-glucose meter (FreeStyle #1 ea 08/25/24 Lite Meter kit) famotidine 20 mg tablet (Pepcid) 20 mg PO BID 10 days #20 tabs 08/25/24 naloxone 4 mg/actuation nasal spray 4 mg intranasal Q2M PRN opioid 08/25/24 overdose #2 ea polyethylene glycol 3350 17 17 g PO BID #850 grams 08/25/24 gram/dose oral powder (Miralax) Free Style lite glucometer kit #1 ea 09/03/24 food supplemt, lactose-reduced 0.1 1 ea PO TID #1,184 mL 09/08/24 gram-1.18 kcal/mL oral liquid (Ensure Complete) aluminum-mag hydroxide-simethicone 10 ml PO QID PRN indigestion 09/15/24 200 mg-200 mg-20 mg/5 mL oral susp #3,000 mL (Maalox Advanced) ondansetron 4 mg disintegrating 4 mg PO Q6H #14 tabs 10/06/24 tablet folic acid 1 mg tablet 1 mg PO DAILY #90 tabs 12/26/24 ferrous gluconate 225 mg (27 mg 225 mg PO DAILY #90 tabs 12/27/24 iron) tablet amlodipine 2.5 mg tablet 2.5 mg PO DAILY #30 tabs 02/23/25 blood pressure monitor (Blood #1 ea 02/23/25 Pressure Kit) blood pressure monitor (Blood #1 ea 02/23/25 Pressure Kit) cyanocobalamin (vitamin B-12) 100 mcg (0.1 mL) IM QMONTH #10 mL 02/23/25 1,000 mcg/mL injection solution linaclotide 290 mcg capsule 290 mcg PO DAILY #30 caps 02/23/25 (Linzess) tramadol 50 mg tablet 50 mg PO TID PRN pain 30 days #90 02/23/25 tabs nitrofurantoin 100 mg PO Q12H 7 days #14 caps 02/25/25 monohydrate/macrocrystals 100 mg capsule (Macrobid) polyethylene glycol 3350 17 17 g PO DAILY PRN constipation 03/01/25 gram/dose oral powder (ClearLax) #238 grams Allergies Allergy/AdvReac Type Severity Reaction Status Date / Time hydrocodone (HYDROCODONE) Allergy Severe RASH, Verified 03/01/25 09:39 AIRWAY CLOSES ibuprofen (From MOTRIN) Allergy Intermediate STOMACH Verified 03/01/25 09:39 UPSET, vomiting trazodone (TRAZODONE) Allergy Intermediate stomach Verified 03/01/25 09:39 upset/anxiety tomato (TOMATO) Allergy Mild HIVES Verified 03/01/25 09:39 DIFFICULTY BREATHING egg Allergy Swelling Verified 03/01/25 09:39 black pepper (BLACK PEPPER) AdvReac Severe DIFFICULTY Verified 03/01/25 09:39 BREATHING, hives lisinopril AdvReac Severe Anaphylaxis Verified 03/01/25 09:39 Review of Systems Review of Systems: Yes all other systems are reviewed and are negative PMF Past Medical History Medical History Type 2 diabetes mellitus with hyperglycemia Vision changes Gastritis Tongue sore Right ear pain Numbness of left hand History of bipolar disorder History of schizophrenia 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 Spondylosis of lumbar spine Diverticulosis Insomnia Vitamin D deficiency GERD (gastroesophageal reflux disease) Carpal tunnel syndrome Hypercholesterolemia Renal calculi Hypertension Alcohol abuse Anxiety and depression Surgical History History of esophagogastroduodenoscopy (EGD) Hx of colonoscopy Hx of bariatric surgery History of tubal ligation H/O: hysterectomy Family History Family History (Updated 02/23/25 @ 12:19 by Deirdre Cantrell MD) Father Medical history unknown Prostate cancer Mother Medical history unknown Paternal Aunt Uterine cancer Diabetes Hypertension Paternal Uncle Liver cancer Heart attack Lung cancer Maternal Aunt Stroke Family/Other Chronic mental illness Sister Uterine cancer Schizophrenia Brother Substance abuse Paternal Grandmother Lung cancer Paternal Grandfather Prostate cancer Other Mental health disorder Social History Social History (Updated 02/23/25 @ 12:20 by Deirdre Cantrell MD) Household Members: None Housing: Apartment Do you presently have visiting nurse or other home services: Yes Alcohol intake: current Alcohol intake frequency: holidays/special occasions only Alcohol type: beer Comment: socially but now stopped - last 12/2024 Patient Tobacco Use Status: Former Tobacco user Tobacco use type: Cigarette Cigarette Packs Per Day: 0.25 Cigarettes Per Day: 1 Years Smoked: quit smoking 2022 e-Cigarette/Vaping Use: Never Used Second Hand Smoke Exposure: Yes Substance Use Type: Marijuana Advance Directives: Yes Advance Directives Information Provided: Yes Advance Directives on File: No Do you have a plan to hurt others: No Plan service: No Current occupational status: disabled Current occupational exposures/hazards: No Cognitive needs: No Hearing needs: No Vision needs: Yes Physical Exam ED Vital Signs: Vital Signs - 24 hr 03/01/25 09:36 03/01/25 11:42 Temperature 98 F 98 F Pulse Rate 87 87 Respiratory Rate 18 18 Blood Pressure 168/99 H 168/99 H Pulse Oximetry 98 98 Oxygen Delivery Method Room Air Room Air BMI result Body Mass Index 22.1 Const Other: The patient is awake and alert, pleasant and cooperative. She does not appear in acute distress or seem obviously ill. Orientation/consciousness: patient oriented x3 HENMT Other: The face is symmetrical. ?Mucous membranes moist. Eyes General: appearance normal, both eyes and all related structures Neck Neck: Yes normal visual inspection and Yes full ROM Resp Effort & Inspection: normal respiratory effort Auscultation: clear to auscultation bilaterally Cardio Rate: regular rate Rhythm: regular rhythm Heart sounds: S1 normal heart sound present and S2 normal heart sound present GI Other: The abdomen is soft and nontender Rectal exam revealed normal rectal tone. There was no fecal impaction. Skin Other: Skin is dry and unremarkable Neuro General: patient oriented x3, tone normal, moves all extremities, no focal motor deficits and CN's II-XI intact bilaterally Extrem Other: There is no calf swelling or tenderness. No asymmetry. No peripheral edema. Medications Administered Discontinued Medications Generic Name Dose Route Start Last Admin Trade Name Freq PRN Reason Stop Dose Admin Sodium Biphosphate/Sodium Phosphate 133 ml 03/01/25 10:53 03/01/25 11:41 Sodium Phosphate,Banner-Dibasic 133 Ml Enema LA 03/01/25 10:54 133 ml ONCE ONE Administration Medical Decision Making Medical Decision Making [facility] Narrative: The patient is a 44-year-old woman who presents complaining of being constipated. She says she has not had a stool in a month. Her KUB shows a lot of stool in her colon. She does not have a fecal impaction in her rectum on rectal exam. She was offered an enema but she does not want an enema. She would like take it and go home and give it to herself later. She was also prescribed MiraLax. Discharge Plan Discharge Clinical Impression: Constipation Patient Disposition: Home, Self-Care Additional Instructions: You may take the Fleet enema when you get home. Additionally you may also take MiraLax daily as prescribed. This should help as well. Please follow up with your regular doctor soon. Return to the emergency room if significantly worse. Prescriptions: New polyethylene glycol 3350 [ClearLax] 17 gram/dose powder 17 g PO DAILY PRN (Reason: constipation) Qty: 238 0RF No Action (DME) CANE See Rx Instructions .Route .MEDSUPPLY Qty: 1 0RF Rx Instructions: As directed (DME) WRIST BRACE See Rx Instructions .Route .MEDSUPPLY Qty: 1 0RF Rx Instructions: As directed (DME) BATH CHAIR See Rx Instructions .Route .MEDSUPPLY Qty: 1 0RF Rx Instructions: As directed (DME) LIFELINE ALERT SYSTEM See Rx Instructions .Route .MEDSUPPLY Qty: 1 0RF Rx Instructions: As directed (DME) ALCOHOL PADS See Rx Instructions .Route .MEDSUPPLY Qty: 100 3RF Rx Instructions: As directed (DME) SHOWER WAND See Rx Instructions .Route .MEDSUPPLY Qty: 1 0RF Rx Instructions: As directed (DME) SHOWER BAR See Rx Instructions .Route .MEDSUPPLY Qty: 1 0RF Rx Instructions: As directed (DME) Bedside commode See Rx Instructions .Route .MEDSUPPLY Qty: 1 0RF Rx Instructions: As directed (DME) Bed pads See Rx Instructions .Route .MEDSUPPLY Qty: 100 12RF Rx Instructions: As directed (DME) SANITARY PADS See Rx Instructions .Route .MEDSUPPLY Qty: 100 12RF Rx Instructions: As directed (DME) ROLLATOR See Rx Instructions .Route .MEDSUPPLY Qty: 1 0RF Rx Instructions: As directed simethicone 40 mg/0.6 mL drops,suspension 0.6 ml PO BID-TID PRN (Reason: abdominal distention) Qty: 15 0RF mv-mins no.73-iron fum-folic 106 mg iron- 1 mg capsule 1 cap PO DAILY Qty: 30 4RF sucralfate [Carafate] 100 mg/mL suspension 10 ml PO QID Qty: 840 1RF fluticasone propionate [Flonase Allergy Relief] 50 mcg/actuation spray,suspension 1 spray intranasal DAILY Qty: 100 2RF Rx Instructions: administer into each nostril (DME) Free Style lite glucometer kit See Rx Instructions .Route .MEDSUPPLY Qty: 1 0RF Rx Instructions: As directed Ensure Complete 0.1 gram- 1.18 kcal/mL liquid 1 ea PO TID Qty: 1184 12RF folic acid 1 mg tablet 1 mg PO DAILY Qty: 90 0RF ferrous gluconate 225 mg (27 mg iron) tablet 225 mg PO DAILY Qty: 90 0RF cyanocobalamin (vitamin B-12) 1,000 mcg/mL solution 100 mcg IM QMONTH Qty: 10 0RF nitrofurantoin monohyd/m-cryst [Macrobid] 100 mg capsule 100 mg PO Q12H 7 Days Qty: 14 0RF Rx Instructions: must administer with a meal/food sumatriptan 5 mg/actuation spray,non-aerosol 5 mg intranasal Q2-4H PRN (Reason: migraine headache) Qty: 6 1RF Rx Instructions: into each nostril once; if headache remains, may repeat total dose once after at least 2 hours cyclobenzaprine 5 mg tablet 5 mg PO Q8H PRN (Reason: pain (scale score 7-10)) 5 Days Qty: 14 0RF lactulose 10 gram/15 mL (15 mL) solution 10 g PO DAILY PRN (Reason: laxative effect) 5 Days Qty: 300 0RF ondansetron 4 mg tablet,disintegrating 4 mg PO Q6H Qty: 14 0RF prochlorperazine [Compro] 25 mg suppository 25 mg LA Q12H PRN (Reason: nausea and vomiting) Qty: 12 0RF esomeprazole magnesium [address] for susp in packet 20 mg PO BID 90 Days Qty: 180 0RF Rx Instructions: Mix in applesauce or pudding alum-mag hydroxide-simeth [Maalox Advanced] 200-200-20 mg/5 mL suspension 10 ml PO QID PRN (Reason: indigestion) Qty: 3000 0RF Rx Instructions: administer between meals and at bedtime clonazepam 1 mg tablet 1 mg PO TID Rx Instructions: [facility] bisacodyl [Dulcolax (bisacodyl)] 10 mg suppository 10 mg LA DAILY PRN (Reason: constipation) Qty: 30 0RF acetaminophen 160 mg/5 mL liquid 320 mg PO Q6H PRN (Reason: fever or pain) Qty: 473 0RF famotidine [Pepcid] 20 mg tablet 20 mg PO BID 10 Days Qty: 20 0RF naloxone 4 mg/actuation spray,non-aerosol 4 mg intranasal Q2M PRN (Reason: opioid overdose) Qty: 2 0RF Rx Instructions: spray 1 dose into ONE nostril; alternate nostrils w each dose until help arrives polyethylene glycol 3350 [Miralax] 17 gram/dose powder 17 g PO BID Qty: 850 0RF (DME) FreeStyle Lite Strips Strip See Rx Instructions .ROUTE .MEDSUPPLY Qty: 100 3RF Rx Instructions: use daily As directed to check blood sugars for diabetes (DME) blood-glucose meter [FreeStyle Lite Meter] Kit See Rx Instructions .ROUTE .MEDSUPPLY Qty: 1 0RF Rx Instructions: Use daily As directed to check blood glucose Linzess 290 mcg capsule 290 mcg PO DAILY Qty: 30 1RF tramadol 50 mg tablet 50 mg PO TID PRN (Reason: pain) 30 Days Qty: 90 0RF (DME) blood pressure monitor [Blood Pressure Kit] Kit See Rx Instructions .ROUTE .MEDSUPPLY Qty: 1 0RF Rx Instructions: As directed (DME) blood pressure monitor [Blood Pressure Kit] Kit See Rx Instructions .Route Qty: 1 0RF Rx Instructions: As directed amlodipine 2.5 mg tablet 2.5 mg PO DAILY Qty: 30 1RF zolpidem 10 mg tablet 10 mg PO BEDTIME PRN (Reason: Insomnia) triamcinolone acetonide 0.1 % cream 1 appl topical DAILY Referrals: Deirdre Cantrell MD [Primary Care Provider, Internal Medicine] Interventions: ED Discharge Assessment Last Done: 03/01/25 11:42 Discharge Date/Time: 03/01/25 11:42 Print Language: Bengali
[2025-03-01 11:42] VITALS: BP 168/99; PULSE 87; RESP 18; TEMP 36.6; O2SAT 98
== END 2025-03-01 11:42 | disposition home or self-care (01) ==
PROVIDERS: Emergency Provider Emergency Medicine; PCP Internal Medicine
DX: K59.00 Constipation, unspecified (principal); E11.8 Type 2 diabetes mellitus with unspecified complications; Z90.3 Acquired absence of stomach [part of]
CPT/HCPCS: 74018; 99282; 99284

== ENCOUNTER 2025-06-03 12:43 | Outpatient (AMB) | payer OTHER, SELFPAY ==
[2025-06-03 12:53] VITALS: BP 120/90; TEMP 36.3
--- NOTE | 2025-06-03 12:53 | A.OFFPC_ITS ---
Vital Signs 06/03/25 12:53 Height 5 ft 2 in BP 120/90 H Blood Pressure Location Lt brachial Position Sitting Pulse Source Pulse Oximeter Temp 97.3 F Temp Source Temporal Artery Scan Oxygen Delivery Method Room Air Intake Visit Reasons: 3M f/u Hospitality Host Required: Yes Hospitality Host Language: Djiboutian Accompanied by: Self / Same As Patient Allergies hydrocodone (HYDROCODONE) Allergy (Severe, Verified 06/03/25 12:54) RASH, AIRWAY CLOSES ibuprofen (From MOTRIN) Allergy (Intermediate, Verified 06/03/25 12:54) STOMACH UPSET, vomiting trazodone (TRAZODONE) Allergy (Intermediate, Verified 06/03/25 12:54) stomach upset/anxiety tomato (TOMATO) Allergy (Mild, Verified 06/03/25 12:54) HIVES DIFFICULTY BREATHING egg Allergy (Verified 06/03/25 12:54) Swelling black pepper (BLACK PEPPER) Adverse Reaction (Severe, Verified 06/03/25 12:54) DIFFICULTY BREATHING, hives lisinopril Adverse Reaction (Severe, Verified 06/03/25 12:54) Anaphylaxis Tobacco use date assessed: 02/23/25 Dental Screening Dental Screen Date: 02/23/25 Did you have a dental visit in the last 12 months?: Yes Did you have a dental problem in the last 6 months where you did not have access to dental care?: No Was dental information given to patient?: Patient has dentist HPI 3M f/u HPI Details BP high today but having abdominal pain and constipation- will today has a schedule with Dr. Driscoll and will need colon test and CT scan peding [facility] Medical History (Updated 06/03/25 @ 12:59 by Deirdre Cantrell MD) Vitamin B 12 deficiency Blurred vision, bilateral Esophagitis determined by endoscopy Abdominal bloating Diarrhea Malabsorption Dysphagia Dysphagia Dysphagia Type 2 diabetes mellitus with hyperglycemia Vision changes Gastritis Tongue sore Right ear pain Numbness of left hand History of bipolar disorder History of schizophrenia 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 Spondylosis of lumbar spine Diverticulosis Insomnia Vitamin D deficiency GERD (gastroesophageal reflux disease) Carpal tunnel syndrome Hypercholesterolemia Renal calculi Hypertension Alcohol abuse Anxiety and depression Surgical History History of esophagogastroduodenoscopy (EGD) Hx of colonoscopy Hx of bariatric surgery History of tubal ligation H/O: hysterectomy Family History Father Medical history unknown Prostate cancer Mother Medical history unknown Paternal Aunt Uterine cancer Diabetes Hypertension Paternal Uncle Liver cancer Heart attack Lung cancer Maternal Aunt Stroke Family/Other Chronic mental illness Sister Uterine cancer Schizophrenia Brother Substance abuse Paternal Grandmother Lung cancer Paternal Grandfather Prostate cancer Other Mental health disorder Social History Household Members: None Housing: Apartment Do you presently have visiting nurse or other home services: Yes Alcohol intake: current Alcohol intake frequency: holidays/special occasions only Alcohol type: beer Comment: socially but now stopped - last 12/2024 Patient Tobacco Use Status: Former Tobacco user Tobacco use type: Cigarette Cigarette Packs Per Day: 0.25 Cigarettes Per Day: 1 Years Smoked: quit smoking 2022 Packs Per Year: 0 Packs per year/per ci.00 e-Cigarette/Vaping Use: Never Used Second Hand Smoke Exposure: Yes Substance Use Type: Marijuana service: No Current occupational status: disabled Current occupational exposures/hazards: No Cognitive needs: No Hearing needs: No Vision needs: Yes Female Reproductive History Menstrual Age of Menarche: 11 Questionnaire PHQ-9 Over the last 2 weeks, how often have you been bothered by any of the following problems? 1. Little interest or pleasure in doing things: nearly every day 2. Feeling down, depressed, or hopeless: nearly every day 3. Trouble falling or staying asleep, or sleeping too much: more than half the days 4. Feeling tired or having little energy: nearly every day 5. Poor appetite or overeating: nearly every day 6. Feeling bad about yourself - or that you are a failure or have let yourself or your family down: more than half the days 7. Trouble concentrating on things, such as reading the newspaper or watching television: more than half the days 8. Moving or speaking so slowly that other people could have noticed. Or the opposite - being so fidgety or restless that you have been moving around a lot more than usual: several days 9. Thoughts that you would be better off or of hurting yourself in some way: several days Total score: 20 Depression Screening Interpretation: Negative Depression Screening Done: Yes Source: Developed by Drs. Dinesh Freire, Denys Epps and colleagues, with an educational mihai from [employer]. Thrive Questionnaire Date Thrive assessed: 02/23/25 I am a: Patient What is your living situation today?: I choose not to answer this question Within the past 12 months, did the food you bought not last and you didn't have the money to get more?: Sometimes True Within the past 12 months, did you worry whether your food would run out before you got money to buy more?: Sometimes True Do you have trouble paying for medicines?: No Do you have trouble getting transportation to medical appointments?: Yes Do you have trouble paying your heating and electricity bill?: I choose not to answer this question Do you have trouble taking care of your child, family member or friend?: No Do you have trouble with day-to-day activities such as bathing, preparing meals, shopping, managing finances, etc.?: Yes Are you currently unemployed and looking for a job?: Yes Are you interested in more education?: Yes THRIVE Score: 3 AUDIT C Alcohol Use Questionnaire (AUDIT-C) 1. How often do you have a drink containing alcohol?: 2-4 times a month 2. How many drinks containing alcohol do you have on a typical day when you are drinking?: 3 or 4 3. How often do you have six or more drinks on one occasion?: Never Total Score: 3 JUDITH-7 AMB Questionnaire JUDITH-7 Date JUDITH - 7 assessed: 02/23/25 Feeling nervous, anxious, or on edge: 2 = More than half the days Not being able to stop or control worryin = More than half the days Worrying too much about different things: 1 = Several days Trouble relaxin = More than half the days Being so restless that it is hard to sit still: 1 = Several days Becoming easily annoyed or irritable: 2 = More than half the days Feeling afraid as if something awful might happen: 2 = More than half the days Total JUDITH-7 score (0-4 normal; 5-9 mild; 10-14 moderate; 15-21 severe): 12 Source: Developed by Niru Ledesma Kurt Kroenke and colleagues, with an educational mihai from [employer]. Physical exam (Primary Care) Vital Signs: Last Vital Signs Temp 97.3 F 06/03/25 12:53 BP 120/90 H 06/03/25 12:53 Oxygen Delivery Method Room Air 06/03/25 12:53 Tobacco/Smoking Status: Tobacco use Status Tobacco use date assessed 02/23/25 06/03/25 13:00 Patient Tobacco Use Status Former Tobacco user 06/03/25 13:00 Tobacco use type Cigarette 06/03/25 13:00 e-Cigarette/Vaping Use Never Used 06/03/25 13:00 PHQ-9: PHQ-9 Score PHQ-9: Total score 20 06/03/25 13:00 Depression Screening Interpretation: Negative Thrive Assessment: Date of Thrive Assessment Date Thrive assessed 02/23/25 06/03/25 13:00 Const General: alert; No acute distress Eyes Conjunctivae: conjunctivae normal Resp Auscultation: clear to auscultation bilaterally Cardio Rate: regular rate Rhythm: regular rhythm GI Inspection: Yes normal to inspection Extrem General: Yes normal to inspection and No edema Coding Level of Care Code Est Pt Level 4 (07490) Complex EM visit Add On G2211 Diagnoses S/P gastric sleeve procedure Z90.3 Esophagitis determined by endoscopy K20.90 Essential hypertension I10 Hypertension type: essential hypertension Hypercholesterolemia E78.00 Constipation K59.00 Esophageal stricture K22.2 Vitamin B 12 deficiency E53.8 Generalized anxiety disorder F41.1 Assessment & Plan Assessment & Plan (1) S/P gastric sleeve procedure: Comment: 10/19/21 - Bhavna assisted gastric sleeve gastrectomy by Dr. Americo GUTIERRES laparoscopic sleeve converted to gastric bypass under 07/27/2023. Code(s): Z90.3 - Acquired absence of stomach [part of] Category: Surgical Plan: Continue to follow-up with bariatric (2) Esophagitis determined by endoscopy: Code(s): K20.90 - Esophagitis, unspecified without bleeding Category: Medical Plan: Avoid the foods that causes that usually spicy foods, tomato products, juices, coffee, soda and foods that your sensitive to. After eating do not lie down, allow 3-4 hours before in lie down. And keep the head of bed above 30 degrees to avoid the acid from going up. Presently on Carafate, famotidine (3) Hypertension: Code(s): I10 - Essential (primary) hypertension Category: Medical Qualifiers: Hypertension type: essential hypertension Qualified Code(s): I10 - Essential (primary) hypertension Plan: Continue with blood pressure medication. Decrease salt intake and exercise continuing with amlodipine 2.5 mg once a day. Patient is present blood pressure is elevated but complains of abdominal pain. Will continue to monitor for now and once the GI has resolved then will control the blood pressure. (4) Hypercholesterolemia: Code(s): E78.00 - Pure hypercholesterolemia, unspecified Category: Medical Plan: Avoid fried foods, chicken skin, eggs, butter margarine, pastries and meat. Be it pork or beef they have a lot of cholesterol medication discontinued with loss of weight (5) Constipation: Code(s): K59.00 - Constipation, unspecified Category: Medical Plan: Three rules for constipation 1. Diet need to have a high fiber diet less of meat 2. Increase oral fluids 3. Exercise (6) Esophageal stricture: Code(s): K22.2 - Esophageal obstruction Category: Medical Plan: Patient had dilatation done February 2025 EGD (7) Vitamin B 12 deficiency: Code(s): E53.8 - Deficiency of other specified B group vitamins Category: Medical Plan: Vitamin B12 100 mcg IM once a month (8) Generalized anxiety disorder: Comment: [facility] Code(s): F41.1 - Generalized anxiety disorder Category: Medical Plan: Continue with counseling and therapy Plan History of Present Illness The patient is a 44-year-old female presenting for management of multiple chronic conditions and acute abdominal pain. Her medical history is significant for hypertension, hypercholesterolemia, GERD, lumbar spondylosis, adrenal insufficiency, diabetes mellitus, schizophrenia, generalized anxiety disorder, and a history of alcohol and polysubstance abuse. Regarding her gastrointestinal history, the patient underwent a sleeve gastrectomy in September 2021, which was converted to a gastric bypass in June 2023. She has a history of esophageal stricture, and an upper GI endoscopy on March 06, 2025, revealed moderate stenosis of the gastrointestinal anastomosis, which required dilatation. The same procedure also showed severe esophagitis in the lower third of the esophagus. The patient was seen in the emergency room on March 01 for abdominal pain and was diagnosed with constipation. She continues to report severe, contraction- like abdominal pain, along with black stools and vomiting. She mentioned a personal concern about possible Crohn's disease due to a long history of intestinal problems. Her last blood work was in January 2025, which showed a normal blood count with no anemia, normal platelets, and mild leukopenia. Electrolytes, renal function, blood sugar, and iron levels were normal, while liver enzymes were mildly elevated with an AST of 40. Labs also revealed low vitamin B12 and vitamin D levels, though cholesterol was good. For health maintenance, the patient's last physical exam was in January 2025. She is due for a mammogram and a colonoscopy, with her last colon test having been in April 2024. Health Maintenance - Patient's last physical exam was in January 2025. - Due for a mammogram. - Due for a colonoscopy; her last colon test was in April 2024. - She is scheduled for a CT scan prior to the colonoscopy. - The patient has already received her influenza vaccine at [facility]. Social History - Substance Use: The patient has a history of alcohol abuse and polysubstance abuse. - Treatment: The patient is advised to continue with counseling and therapy. Review of Systems - Gastrointestinal: Reports severe, contraction-like abdominal pain, constipation, black stools, and vomiting. - Psychiatric: Reports feeling stressed and anxious, which she notes can elevate her blood pressure. Physical Exam - Vitals: Blood pressure is 140/80 mmHg. - General: Patient appears to be in pain and is anxious. Results - Labs (February 23, 2025): - CBC: Normal blood count with no anemia, normal platelet count, and mild leukopenia. - CMP: Electrolytes, renal function, and blood sugar were normal. - Liver Function Tests: Mildly elevated liver enzymes with an AST of 40. - Lipids: Cholesterol is good. - Vitamins: Vitamin B12 and Vitamin D were low. - Iron: Normal. - Procedures: - Upper GI endoscopy (March 06, 2025): Findings included moderate stenosis of the gastrointestinal anastomosis, which was dilated, and severe esophagitis in the lower third of the esophagus. Plan Patient was informed and verbally consented to the use of an ambient scribe for clinic note documentation during this visit. 1. Hypertension The patient's blood pressure was elevated at 140/80 mmHg, which is attributed to her current pain and anxiety. The plan is to continue her current medication, amlodipine 2.5 mg once a day, without adjustment until her pain is managed. 2. Abdominal Pain And Constipation The patient reports severe constipation and abdominal pain, for which she recently visited the ER. A prescription for Ultram (tramadol with Tylenol) was sent for severe pain, along with a prescription for Linzess. The patient has an appointment with Dr. Cesia george for this issue and is scheduled for a CT scan and colonoscopy. 3. Gerd, Esophagitis And Esophageal Stricture Recent EGD findings of severe esophagitis and anastomotic stenosis, which was dilated, were reviewed. The patient is to continue her regimen of Carafate and famotidine for reflux. She will continue to follow up with her bariatrics team. 4. Vitamin B12 Deficiency The patient's vitamin B12 was noted to be very low in her Susanna labs. Her treatment plan includes 1000 mcg of vitamin B12 daily and a 1000 mcg IM injection once a month. A request for a follow-up blood test will be placed to be completed after her colonoscopy to recheck her B12 levels. 5. Hypercholesterolemia The patient's cholesterol is well-controlled, and her medication was previously discontinued following weight loss. No cholesterol medication is indicated at this time. 6. Mental Health Management The patient is advised to continue with counseling and therapy for her mental health conditions. Discussion Notes I discussed with the patient that her elevated blood pressure of 140/80 mmHg is likely secondary to her acute pain and anxiety. I explained that we would not adjust her amlodipine at this time and would instead focus on treating her pain. I sent a prescription for Ultram (tramadol/acetaminophen) for her severe pain and Linzess for constipation. We reviewed the plan for her to see Dr. Cesia george for her gastrointestinal is sues, and I requested that she have those notes sent to my office. I also placed a request for a follow-up blood test to check her vitamin B12 level, which she will complete after her upcoming colonoscopy. We briefly discussed her recent EGD findings of severe esophagitis, which explains her use of Carafate and omeprazole. Patient Instructions - Continue taking your blood pressure medication, amlodipine 2.5 mg, once a day. - I have sent new prescriptions to your pharmacy for pain (Ultram) and constipation (Linzess). - Please proceed with your appointment with Dr. Cesia george to discuss your stomach problems. - Ask Dr. Callaway's office to send the notes from your visit to us. - Please complete your scheduled CT scan and colonoscopy. - After the colonoscopy, please get the bloodwork done to recheck your vitamin B12 level. - Continue taking your medications for reflux, including Carafate and omeprazole/famotidine. - Continue with your counseling and therapy sessions. Orders: Orders Complete Blood Count Auto Diff 1 Month E11.65 - Type 2 diabetes mellitus with hyperglycemia Hemoglobin A1c 1 Month E11.65 - Type 2 diabetes mellitus with hyperglycemia Thyroid Stimulating Hormone 1 Month E11.65 - Type 2 diabetes mellitus with hyperglycemia Vitamin D 25-OH Total 1 Month E11.65 - Type 2 diabetes mellitus with hyperglycemia Comprehensive Met. Panel 1 Month E11.65 - Type 2 diabetes mellitus with hyperglycemia Free T4 (Free Thyroxine) 1 Month E11.65 - Type 2 diabetes mellitus with hyperglycemia Vitamin B12 and Folate 1 Month E11.65 - Type 2 diabetes mellitus with hyperglycemia Lipid Panel 1 Month E11.65 - Type 2 diabetes mellitus with hyperglycemia, E78.00 - Pure hypercholesterolemia, unspecified Medications: New tramadol 50 mg PO TID PRN 90 tabs 0RF pain M54.16 - Radiculopathy, lumbar region Refilled polyethylene glycol 3350 (Miralax) 17 grams PO BID 850 grams 0RF M54.16 - Radiculopathy, lumbar region linaclotide (Linzess) 290 mcg PO DAILY 30 caps 1RF M54.16 - Radiculopathy, lumbar region Discontinued cyclobenzaprine Discontinued Reason: Doctor's Order 5 mg PO Q8H 5 days PRN 14 tabs 0RF pain (scale score 7-10) tramadol Discontinued Reason: Doctor's Order 50 mg PO TID 30 days PRN 90 tabs 0RF pain M54.10 - Radiculopathy, site unspecified
--- OUTSIDE RECORDS SUMMARY | 2025-06-03 15:24 | XMS_ITS | Encounter Summary ---
Author Organization [facility] [employer] [facility] Address [address] [place] [address] Care Team Providers Care Auto Brake Mechanic Name Role Phone Unavailable Primary Care Provider [...]
--- OUTSIDE RECORDS SUMMARY | 2025-06-03 15:24 | XMS_ITS | Encounter Summary ---
Author Organization [facility] [employer] [facility] Address [address] [place] [address] Care Team Providers Care Insurance Underwriting Assistant Name Role Phone Unavailable Primary Care Provider [...]
--- OUTSIDE RECORDS SUMMARY | 2025-06-03 15:24 | XMS_ITS | Clinical Summary ---
Author Organization [facility] Address [address] [place] [address] Care Team Providers Care Audit Associate Name Role Phone Unavailable Primary Care Provider [...]
--- OUTSIDE RECORDS SUMMARY | 2025-06-03 15:24 | XMS_ITS | Clinical Summary ---
Author Organization [employer] Address [address] [place] [address] Care Team Providers Care Gang Punch Operator Name Role Phone Unavailable Primary Care [...] Date Last Done Comments Depression Screening 1980 Disability Screening 1980 Alcohol/Substance Use Screening 1992 Tobacco Screening 1992 Family Planning (PISQ) 10/20/1995 HPV Vaccines (1 - 3-dose series) 10/20/1995 Pap Smear 2001 Cervical Cancer Screening 2010 HPV/Cotest 2010 Mammogram 2020 DTaP/Tdap/Td Vaccines (3 - T d or Tdap) 10/02/2021 10/03/2011, 10/03/2011 COVID-19 Vaccine ( - 2023-2 5 season) 2025 Influenza Vaccine (#1) 2025 Zoster Vaccines (1 of 2) 2030 RSV Patients and Patients Aged 60 years or older (1 - 1-dose 75+ series) 10/20/2055 Pneumococcal Vaccine: Pediatrics (0 to 5 Years) and At-Risk Patients (6 to 49) Years Aged Out 10/03/2011 No longer eligible b [...]
== END 2025-06-03 15:37 | disposition home or self-care (01) ==
LOC: HO.HMCH 12:44
PROVIDERS: PCP Internal Medicine; Visit Provider Internal Medicine
DX: Z90.3 Acquired absence of stomach [part of] (principal); K20.90 Esophagitis, unspecified without bleeding; I10 Essential (primary) hypertension; E78.00 Pure hypercholesterolemia, unspecified; K59.00 Constipation, unspecified; K22.2 Esophageal obstruction; E53.8 Deficiency of other specified B group vitamins; F41.1 Generalized anxiety disorder

== ENCOUNTER → 2025-06-03 12:43 | Outpatient (BNVA) | payer OTHER, SELFPAY | PROVIDERS: PCP Internal Medicine; Visit Provider Internal Medicine | DX: K22.2 Esophageal obstruction (principal); R10.9 Unspecified abdominal pain; K59.00 Constipation, unspecified; K20.90 Esophagitis, unspecified without bleeding; I10 Essential (primary) hypertension; E78.00 Pure hypercholesterolemia, unspecified; E53.8 Deficiency of other specified B group vitamins; F41.1 Generalized anxiety disorder; Z90.3 Acquired absence of stomach [part of] | CPT/HCPCS: 99212 ==